=== PATIENT | female | born 1965 | race Caucasian/White ===

== ENCOUNTER → 2017-06-20 07:17 | Outpatient (CLI) | payer MEDICAID, SELFPAY ==
[2017-06-20 10:18] LABS: Absolute Lymphocyte Count 0.88 X10^3/ul (0.83-4.51); Basophil# 0.02 X10^3/uL; Basophil% 0.6 % (0-1); Eosinophil# 0.11 X10^3/uL; Eosinophils% 3.2 % (0-5); Hematocrit 41.4 % (37-47); Hemoglobin 13.6 g/dl (12.0-15.0); Lymphocyte # 0.88 X10^3/ul (4.0); Lymphocyte % 25.9 % (19-41); Mean Corp Hgb Conc 32.9 g/gl (32-36); Mean Corpuscular Hgb 32.2 pg (27.0-32.0); Mean Corpuscular Volume 97.9 fL (81-99); Mean Platelet Vol. 11.5 fl (6.2-12.0); Monocyte# 0.44 X10^3/uL; Monocyte% 12.9 % (0-10); Neutrophil # 1.95 X10^3/uL (2.7-7.7); Neutrophil % 57.4 % (47-70); Platelet Count 176 K/mm3 (150-450); RBC Distribution Width SD 46.1 fl (35.1-43.9); Red Blood Count 4.23 M/mm3 (4.2-5.4); White Blood Count 3.4 K/mm3 (4.4-11.0)
[2017-06-20 10:22] LABS: POSITIVE COUNT NO; POSITIVE DIFFERENTIAL NO; POSITIVE MORPHOLOGY NO
[2017-06-20 10:37] LABS: Progesterone Level 1.89 ng/mL (See Comment); Vitamin B12 806 pg/mL (211-911); Vitamin D,25 Hydroxy 75.2 ng/mL (29.95-100.01)
[2017-06-20 10:44] LABS: ALB/GLOB Ratio 1.3 RATIO (0.9-2.4); AST(SGOT) 19 U/L (15-37); Alanine Aminotransfer ALT/SGPT 30 U/L (13-56); Albumin, Serum 4.2 g/dL (3.2-5.0); Alkaline Phosphatase 85 U/L (45-117); Anion Gap 7 (5-15); BUN 14 mg/dL (7-18); BUN/Creat Ratio 19.2 RATIO (10-20); Calcium,Total 9.2 mg/dL (8.5-10.1); Chloride 102 mmol/L (98-107); Cholesterol 160 mg/dL (200); Creatinine, Serum 0.73 mg/dL (0.55-1.02); EST Glomerular Filtration Rate 89 mL/min (>60); Est Glom Filt Rate - Afr Amer 108 mL/min (>60); Free T3 2.6 pg/mL (2.18-3.98); Globulin 3.2 g/dL (2.2-4.2); Glucose 77 mg/dL (74-106); High Density Lipoprotein 68 mg/dL; Potassium 3.6 mmol/L (3.5-5.1); Protein, Total 7.4 g/dL (6.4-8.2); Sodium Level 138 mmol/L (136-145); T4 Free Direct 0.86 ng/dL (0.76-1.46); Thyroid Stim Hormone (TSH) 2.19 uIU/mL (0.358-3.74); Triglycerides 37 mg/dL; Very Low Density Lipoprotein 7 mg/dL (5-40)
[2017-06-27 11:06] LABS: T3 Reverse 18.4 ng/dL (9.2-24.1)
== END ==
PROVIDERS: Family Provider Family Medicine; PCP Family Medicine
DX: E55.9 Vitamin D deficiency, unspecified (principal); N95.9 Unspecified menopausal and perimenopausal disorder
CPT/HCPCS: 36415; 80053; 80061; 82306; 82607; 82670; 83001; 84144; 84439; 84443; 84481; 84482; 85025; 86141

== ENCOUNTER → 2018-01-20 07:06 | Outpatient (CLI) | payer MEDICAID, SELFPAY ==
[2018-01-20 10:30] LABS: Hematocrit 41.3 % (37-47); Hemoglobin 13.6 g/dl (12.0-15.0); Mean Corp Hgb Conc 32.9 g/gl (32-36); Mean Corpuscular Hgb 32.3 pg (27.0-32.0); Mean Corpuscular Volume 98.1 fL (81-99); Mean Platelet Vol. 11.6 fl (6.2-12.0); Platelet Count 202 K/mm3 (150-450); RBC Distribution Width CV 12.8 % (11.6-14.6); RBC Distribution Width SD 45.3 fl (35.1-43.9); Red Blood Count 4.21 M/mm3 (4.2-5.4); White Blood Count 3.8 K/mm3 (4.4-11.0)
[2018-01-20 10:34] LABS: Scan Indicated on CBC? Y/N NO
[2018-01-20 10:55] LABS: Progesterone Level 1.23 ng/mL (See Comment); Vitamin B12 616 pg/mL (211-911)
[2018-01-20 11:04] LABS: ALB/GLOB Ratio 1.3 RATIO (0.9-2.4); AST(SGOT) 18 U/L (15-37); Alanine Aminotransfer ALT/SGPT 32 U/L (13-56); Albumin, Serum 4.2 g/dL (3.2-5.0); Alkaline Phosphatase 79 U/L (45-117); Anion Gap 6 (5-15); BUN 14 mg/dL (7-18); BUN/Creat Ratio 20.1 RATIO (10-20); CRP, High Sensitivity Cardiac 0.31 mg/L; Calcium,Total 9.2 mg/dL (8.5-10.1); Chloride 106 mmol/L (98-107); Cholesterol 159 mg/dL (200); EST Glomerular Filtration Rate 94 mL/min (>60); Est Glom Filt Rate - Afr Amer 113 mL/min (>60); Estradiol 16.1 pg/mL; Follicle Stimulating Hormone 53.2 mIU/mL; Free T3 2.8 pg/mL (2.18-3.98); Globulin 3.2 g/dL (2.2-4.2); Glucose 80 mg/dL (74-106); High Density Lipoprotein 66 mg/dL; Potassium 3.3 mmol/L (3.5-5.1); Protein, Total 7.4 g/dL (6.4-8.2); Sodium Level 140 mmol/L (136-145); T4 Free Direct 0.82 ng/dL (0.76-1.46); Thyroid Stim Hormone (TSH) 3.06 uIU/mL (0.358-3.74); Triglycerides 36 mg/dL; Very Low Density Lipoprotein 7 mg/dL (5-40)
[2018-01-24 10:39] LABS: T3 Reverse 13.8 ng/dL (9.2-24.1)
== END ==
PROVIDERS: Family Provider Family Medicine; PCP Family Medicine
DX: E55.9 Vitamin D deficiency, unspecified (principal); N95.9 Unspecified menopausal and perimenopausal disorder
CPT/HCPCS: 36415; 80053; 80061; 82306; 82607; 82670; 83001; 84144; 84439; 84443; 84481; 84482; 85027; 86141

== ENCOUNTER → 2018-08-22 | Outpatient (CLI) | payer MEDICAID, SELFPAY ==
[2018-07-28 13:09] LABS: HPV Reflexed? NOT INDICATED
--- NOTE | 2018-08-22 13:05 | BI_ITS ---
MAMMOGRAPHY - BILATERAL SCREENING REASON FOR EXAM: Female, 53 years old. Routine annual screening examination. PERTINENT HISTORY: Non-contributory. TECHNIQUE: Digital bilateral breast jus (3D mammographic acquisition) in the CC and MLO projections. 2-D mediolateral oblique (MLO) and craniocaudad (CC) views of both breasts were obtained. CAD: Full Field Digital Mammography with Computer Added Detection was performed. COMPARISON: Comparison is made with prior study dated December 28, 2016 and December 16, 2015. FINDINGS: Breast Composition: The breasts are extremely dense, which lowers the sensitivity of mammography. There are no dominant masses or suspicious calcifications. No other significant abnormalities are identified. There has been no significant change since the prior study. BI/SCREENING MAMM (CAD), BILAT IMPRESSION: Stable bilateral screening mammogram. Yearly follow-up mammogram recommended. (A) ASSESSMENT CATEGORY: BIRADS Category 1: Negative. A letter regarding these results will be sent to the patient by the facility within 30 days. Approximately 10% of breast cancers are not detected by mammography. A normal mammogram should not delay biopsy of a clinically suspicious abnormality. [id number] Electronically Signed: Kevin Fleming, at 8:25 EDT , Service support ,
== END | disposition home or self-care (01) ==
LOC: OPBI 13:03
PROVIDERS: Family Provider Family Medicine; PCP Family Medicine; Referring Provider Nurse Practitioner Adult Health; Visit Provider Nurse Practitioner Adult Health
DX: Z00.00 Encounter for general adult medical examination without abnormal findings (principal); Z12.31 Encounter for screening mammogram for malignant neoplasm of breast; Z01.419 Encounter for gynecological examination (general) (routine) without abnormal findings
CPT/HCPCS: 77063; 77067; 88175; G0145

== ENCOUNTER → 2018-09-05 | Outpatient (CLI) | payer MEDICAID, SELFPAY ==
[2018-09-05 14:21] LABS: Absolute Lymphocyte Count 1.02 X10^3/ul (0.83-4.51); Absolute Neutrophil Count 3.9 X10^3/uL (2.0-7.7); Basophil# 0.02 X10^3/uL; Basophil% 0.4 % (0-1); Eosinophil# 0.05 X10^3/uL; Eosinophils% 0.9 % (0-5); Hematocrit 40.6 % (37-47); Hemoglobin 13.4 g/dl (12.0-15.0); Lymphocyte # 1.02 X10^3/ul (4.0); Lymphocyte % 18.2 % (19-41); Mean Corpuscular Volume 96.9 fL (81-99); Mean Platelet Vol. 11.7 fl (6.2-12.0); Monocyte# 0.56 X10^3/uL; Neutrophil # 3.94 X10^3/uL (2.7-7.7); Neutrophil % 70.5 % (47-70); Platelet Count 185 K/mm3 (150-450); RBC Distribution Width CV 13.2 % (11.6-14.6); RBC Distribution Width SD 45.8 fl (35.1-43.9); Red Blood Count 4.19 M/mm3 (4.2-5.4); White Blood Count 5.6 K/mm3 (4.4-11.0)
[2018-09-05 14:22] LABS: POSITIVE COUNT NO; POSITIVE DIFFERENTIAL NO; POSITIVE MORPHOLOGY NO
[2018-09-05 14:40] LABS: Anion Gap 9 (5-15); BUN 20 mg/dL (7-18); BUN/Creat Ratio 24.3 RATIO (10-20); Calcium,Total 9.9 mg/dL (8.5-10.1); Chloride 105 mmol/L (98-107); Creatinine, Serum 0.82 mg/dL (0.55-1.02); EST Glomerular Filtration Rate 77 mL/min (>60); Est Glom Filt Rate - Afr Amer 93 mL/min (>60); Free T3 2.3 pg/mL (2.18-3.98); Glucose 104 mg/dL (74-106); Potassium 4.1 mmol/L (3.5-5.1); Sodium Level 144 mmol/L (136-145); T4 Total, Thyroxin 6.7 ug/dL (4.8-13.9); Thyroid Stim Hormone (TSH) 1.78 uIU/mL (0.358-3.74)
== END | disposition home or self-care (01) ==
LOC: MTLAB 12:33
PROVIDERS: Family Provider Family Medicine; PCP Family Medicine; Referring Provider Family Medicine; Visit Provider Family Medicine
DX: E03.9 Hypothyroidism, unspecified (principal); R63.6 Underweight
CPT/HCPCS: 36415; 80048; 84436; 84443; 84481; 85025

== ENCOUNTER → 2018-09-29 | Outpatient (CLI) | payer MEDICAID, SELFPAY ==
[2018-09-29 10:23] LABS: Hematocrit 40.1 % (37-47); Mean Corp Hgb Conc 32.4 g/gl (32-36); Mean Corpuscular Hgb 31.6 pg (27.0-32.0); Mean Corpuscular Volume 97.3 fL (81-99); Mean Platelet Vol. 11.6 fl (6.2-12.0); Platelet Count 185 K/mm3 (150-450); RBC Distribution Width SD 45.6 fl (35.1-43.9); Red Blood Count 4.12 M/mm3 (4.2-5.4); White Blood Count 3.4 K/mm3 (4.4-11.0)
[2018-09-29 10:41] LABS: Hemoglobin A1c 5.7 % (4.2-6.3)
[2018-09-29 10:51] LABS: Progesterone Level 1.47 ng/mL (See Comment); Vitamin D,25 Hydroxy 58.7 ng/mL (29.95-100.01)
[2018-09-29 11:28] LABS: Anion Gap 7 (5-15); BUN 14 mg/dL (7-18); BUN/Creat Ratio 18.5 RATIO (10-20); CRP, High Sensitivity Cardiac 0.26 mg/L; Calcium,Total 9.6 mg/dL (8.5-10.1); Chloride 106 mmol/L (98-107); Cholesterol 165 mg/dL (200); Creatinine, Serum 0.76 mg/dL (0.55-1.02); EST Glomerular Filtration Rate 85 mL/min (>60); Est Glom Filt Rate - Afr Amer 103 mL/min (>60); Estradiol 17.1 pg/mL; Ferritin 28 ng/mL (8-252); Free T3 2.2 pg/mL (2.18-3.98); Glucose 77 mg/dL (74-106); High Density Lipoprotein 71 mg/dL; Potassium 3.6 mmol/L (3.5-5.1); Sodium Level 142 mmol/L (136-145); Thyroid Stim Hormone (TSH) 3.26 uIU/mL (0.358-3.74); Triglycerides 37 mg/dL; Very Low Density Lipoprotein 7 mg/dL (5-40)
[2018-09-29 14:07] LABS: Eosinophil 4 % (0-5); Lymphocyte 23 % (19-41); Monocyte 10 % (0-10); Neutrophil-Band 1 % (0-5); Neutrophil-Segmented 62 % (47-70); Platelet Estimate ADEQUATE (ADEQ); Total Cells Counted 100 (MANUAL DIFF)
[2018-09-29 14:13] LABS: Absolute Lymphocyte Count 0.78 X10^3/ul (0.83-4.51); Absolute Neutrophil Count 2.1 X10^3/uL (2.0-7.7); Differential Indicated MANUAL DIFF; Lymphocyte # 0.78 X10^3/ul (4.0); Neutrophil # 2.14 X10^3/uL (2.7-7.7); POSITIVE COUNT NO; POSITIVE DIFFERENTIAL NO; POSITIVE MORPHOLOGY NO
[2018-10-03 06:06] LABS: DHEA Sulfate 126.8 ug/dL (41.2-243.7)
[2018-10-04 17:30] LABS: T3 Reverse 12.8 ng/dL (9.2-24.1)
== END | disposition home or self-care (01) ==
LOC: MTLAB 07:05
PROVIDERS: Family Provider Family Medicine; PCP Family Medicine
DX: E03.9 Hypothyroidism, unspecified (principal); F95.9 Tic disorder, unspecified; F41.9 Anxiety disorder, unspecified; F42.9 Obsessive-compulsive disorder, unspecified; K21.0 Gastro-esophageal reflux disease with esophagitis
CPT/HCPCS: 36415; 80048; 80061; 82306; 82330; 82533; 82627; 82670; 82728; 83036; 84144; 84439; 84443; 84481; 84482; 85025; 85027; 86141; 82626

== ENCOUNTER → 2018-11-28 | Outpatient (CLI) | payer MEDICAID, SELFPAY ==
--- NOTE | 2018-11-28 15:25 | RAD_ITS ---
HISTORY: PAIN AFTER A SUDDEN MOVEMENT ADDITIONAL HISTORY: None provided. COMPARISON: None TECHNIQUE: Left shoulder 4 views Number of images including paperwork: 4 FINDINGS: BONES: No acute fracture. JOINTS: No subluxation. SOFT TISSUES: No distinct foreign body. RAD/Shoulder min 2 Views IMPRESSION: No acute osseous abnormality. at 2252 Reported and signed by: Radha Dillard MD Electronically Signed: Radha Dillard MD at 22:51 EDT Tel , Service support ,
== END | disposition home or self-care (01) ==
LOC: MTRAD 15:23
PROVIDERS: Family Provider Family Medicine; PCP Family Medicine; Referring Provider Family Medicine; Visit Provider Family Medicine
DX: M25.512 Pain in left shoulder (principal)
CPT/HCPCS: 73030

== ENCOUNTER → 2018-12-04 12:27 | Outpatient (CLI) | payer MEDICAID, SELFPAY ==
--- NOTE | 2018-12-04 12:33 | MRI_ITS ---
STUDY: MRI LEFT SHOULDER REASON FOR EXAM: Left shoulder pain and decreased range of motion after throwing an object 3-4 months ago. TECHNIQUE: Standardized fat and water weighted pulse sequences were obtained in all 3 orthogonal planes. COMPARISON: Radiographs 11/28/2018. FINDINGS: Normal supraspinatus tendon. Normal infraspinatus tendon. Normal subscapularis tendon. Normal teres minor tendon. Normal supraspinatus muscle. Normal infraspinatus muscle. Normal subscapularis muscle. Normal teres minor muscle. There is a minimal volume of fluid in the glenohumeral joint. Normal humeral head and visualized proximal humerus. Normal biceps labral complex. Normal intracapsular long biceps tendon. Normal labrum. Normal capsulo- ligamentous complex. Normal acromioclavicular articulation. There is a Type II morphology (curved), with a neutral orientation. There is no subacromial-subdeltoid bursal fluid. Normal visualized coracohumeral and coracoacromial ligaments. Normal deltoid muscle. Normal trapezius muscle. MRI/Upper Ext Joint Only(Routine) IMPRESSION: Normal MRI of the left shoulder without demonstrated rotator cuff tear. Electronically Signed: Jorge Luis Velazquez MD at 13:42 EDT Tel , Service support ,
== END ==
PROVIDERS: Family Provider Family Medicine; PCP Family Medicine; Referring Provider Family Medicine; Visit Provider Family Medicine
DX: S46.912S Strain of unspecified muscle, fascia and tendon at shoulder and upper arm level, left arm, sequela (principal)
CPT/HCPCS: 73221

== ENCOUNTER → 2019-01-23 | Outpatient (CLI) | payer MEDICAID, SELFPAY ==
[2019-01-23 14:07] LABS: Vitamin D,25 Hydroxy 75.4 ng/mL (29.95-100.01)
[2019-01-23 14:12] LABS: Iron 112 ug/dL (50-170); Iron Binding Capacity,Total 374 ug/dL (250-450); PERCENT IRON SATURATION 29.9 % (15.0-55.0)
== END | disposition home or self-care (01) ==
LOC: MTLAB 12:37
PROVIDERS: Family Provider Family Medicine; PCP Family Medicine
DX: D64.9 Anemia, unspecified (principal); E55.9 Vitamin D deficiency, unspecified; N95.9 Unspecified menopausal and perimenopausal disorder; E03.9 Hypothyroidism, unspecified; F95.9 Tic disorder, unspecified
CPT/HCPCS: 36415; 82306; 83540; 83550

== ENCOUNTER → 2019-03-03 08:35 | Outpatient (CLI) | payer MEDICAID, SELFPAY ==
[2019-03-03 10:10] LABS: Absolute Lymphocyte Count 0.95 X10^3/uL (0.83-4.51); Absolute Neutrophil Count 3.4 X10^3/uL (2.0-7.7); Basophil# 0.02 X10^3/uL; Basophil% 0.4 % (0-1); Eosinophil# 0.04 X10^3/uL; Eosinophils% 0.8 % (0-5); Hematocrit 40.5 % (37-47); Hemoglobin 13.3 g/dL (12.0-15.0); Lymphocyte # 0.95 X10^3/ul (4.0); Lymphocyte % 19.3 % (19-41); Mean Corp Hgb Conc 32.8 g/dL (32-36); Mean Corpuscular Hgb 32.4 pg (27.0-32.0); Mean Corpuscular Volume 98.8 fL (81-99); Mean Platelet Vol. 11.2 fl (6.2-12.0); Monocyte# 0.55 X10^3/uL; Monocyte% 11.2 % (0-10); NRBC Flagged by Analyzer 0 % (0-5); Neutrophil # 3.36 X10^3/uL (2.7-7.7); Neutrophil % 68.1 % (47-70); Platelet Count 201 K/mm3 (150-450); RBC Distribution Width CV 12.4 % (11.6-14.6); RBC Distribution Width SD 45.1 fl (35.1-43.9); White Blood Count 4.9 K/mm3 (4.4-11.0)
[2019-03-03 11:38] LABS: ALB/GLOB Ratio 1.4 RATIO (0.9-2.4); AST(SGOT) 16 U/L (15-37); Alanine Aminotransfer ALT/SGPT 26 U/L (13-56); Albumin, Serum 4.2 g/dL (3.2-5.0); Alkaline Phosphatase 64 U/L (45-117); Anion Gap 4 (5-15); BUN 12 mg/dL (7-18); Calcium,Total 9.6 mg/dL (8.5-10.1); Chloride 101 mmol/L (98-107); Creatinine, Serum 0.75 mg/dL (0.55-1.02); EST Glomerular Filtration Rate 85 mL/min (>60); Est Glom Filt Rate - Afr Amer 103 mL/min (>60); Follicle Stimulating Hormone 54.3 mIU/mL; Globulin 2.9 g/dL (2.2-4.2); Glucose 73 mg/dL (74-106); Potassium 3.3 mmol/L (3.5-5.1); Protein, Total 7.1 g/dL (6.4-8.2); Sodium Level 137 mmol/L (136-145); T4 Free Direct 1.04 ng/dL (0.76-1.46); Thyroid Stim Hormone (TSH) 2.53 uIU/mL (0.358-3.74)
== END ==
PROVIDERS: Family Provider Family Medicine; PCP Family Medicine; Referring Provider Family Medicine; Visit Provider Family Medicine
DX: E03.9 Hypothyroidism, unspecified (principal); R23.2 Flushing
CPT/HCPCS: 36415; 80053; 83001; 83002; 84439; 84443; 85025

== ENCOUNTER → 2019-04-13 15:22 | Outpatient (CLI) | payer MEDICAID, SELFPAY ==
[2019-04-13 17:36] LABS: Absolute Lymphocyte Count 0.66 X10^3/uL (0.83-4.51); Absolute Neutrophil Count 3.1 X10^3/uL (2.0-7.7); Basophil# 0.02 X10^3/uL; Basophil% 0.5 % (0-1); Eosinophil# 0.01 X10^3/uL; Eosinophils% 0.2 % (0-5); Hematocrit 41.4 % (37-47); Hemoglobin 13.8 g/dL (12.0-15.0); Lymphocyte # 0.66 X10^3/ul (4.0); Lymphocyte % 15.5 % (19-41); Mean Corp Hgb Conc 33.3 g/dL (32-36); Mean Corpuscular Hgb 31.3 pg (27.0-32.0); Mean Corpuscular Volume 93.9 fL (81-99); Mean Platelet Vol. 12.7 fl (6.2-12.0); Monocyte# 0.47 X10^3/uL; NRBC Flagged by Analyzer 0 % (0-5); Neutrophil % 72.8 % (47-70); Platelet Count 161 K/mm3 (150-450); RBC Distribution Width CV 12.8 % (11.6-14.6); RBC Distribution Width SD 44.1 fl (35.1-43.9); Red Blood Count 4.41 M/mm3 (4.2-5.4); White Blood Count 4.3 K/mm3 (4.4-11.0)
[2019-04-13 18:03] LABS: ALB/GLOB Ratio 1.7 RATIO (0.9-2.4); AST(SGOT) 18 U/L (15-37); Alanine Aminotransfer ALT/SGPT 31 U/L (13-56); Albumin, Serum 4.8 g/dL (3.2-5.0); Alkaline Phosphatase 60 U/L (45-117); Anion Gap 7 (5-15); BUN 14 mg/dL (7-18); BUN/Creat Ratio 16.4 RATIO (10-20); Calcium,Total 10.5 mg/dL (8.5-10.1); Chloride 90 mmol/L (98-107); Creatinine, Serum 0.86 mg/dL (0.55-1.02); EST Glomerular Filtration Rate 74 mL/min (>60); Est Glom Filt Rate - Afr Amer 89 mL/min (>60); Globulin 2.9 g/dL (2.2-4.2); Glucose 82 mg/dL (74-106); Potassium 3.7 mmol/L (3.5-5.1); Protein, Total 7.7 g/dL (6.4-8.2); Sodium Level 128 mmol/L (136-145); Thyroid Stim Hormone (TSH) 2.45 uIU/mL (0.358-3.74)
[2019-04-13 18:08] LABS: Vitamin B12 > 2000 pg/mL (211-911)
[2019-04-17 16:45] LABS: Vitamin D 1,25-Dihydroxy 76.1 pg/mL (19.9-79.3)
== END ==
PROVIDERS: PCP Family Medicine; Referring Provider Family Medicine; Visit Provider Family Medicine
DX: R63.6 Underweight (principal)
CPT/HCPCS: 36415; 80053; 82607; 82652; 82746; 84443; 85025

== ENCOUNTER → 2019-05-01 12:26 | Outpatient (CLI) | payer MEDICAID, SELFPAY ==
[2019-05-01 12:35] LABS: Bacteria 0 SEEN /hpf (None Seen); Mucous, Urine 0 SEEN /hpf (<or=2+); Red Blood Cells-Urine 0 SEEN /hpf (0-5); White Blood Cells 0 SEEN /hpf (0-5)
[2019-05-01 14:06] LABS: Urine Sodium < 5 mmol/L (Not Establ.)
[2019-05-01 14:19] LABS: Vitamin D,25 Hydroxy 109.9 ng/mL (29.95-100.01)
[2019-05-01 14:22] LABS: Color, Urine Yellow (Yellow); Glucose, Dipstick Normal (Normal); Ketone-Dipstick 5 mg/dl (Negative); Leukocyte Esterase-Dipstick Negative /ul (Negative); Nitrite-Dipstick Negative (Negative); Occult Blood-Urine Negative /ul (Negative); Protein-Dipstick Negative (Negative); Specific Gravity, Urine 1.025 (1.002-1.030); Urine Bilirubin Dipstick Negative (Negative); Urine Clarity Clear (Clear); Urine Urobilinogen Normal (Normal)
[2019-05-01 14:23] LABS: Anion Gap 6 (5-15); BUN 17 mg/dL (7-18); BUN/Creat Ratio 19.3 RATIO (10-20); Calcium,Total 11.1 mg/dL (8.5-10.1); Chloride 93 mmol/L (98-107); Creatinine, Serum 0.88 mg/dL (0.55-1.02); EST Glomerular Filtration Rate 71 mL/min (>60); Est Glom Filt Rate - Afr Amer 86 mL/min (>60); Glucose 106 mg/dL (74-106); Potassium 3.7 mmol/L (3.5-5.1); Sodium Level 131 mmol/L (136-145)
[2019-05-01 14:33] LABS: Squamous Epithelial Cells - UA 0-5 SEEN /hpf (5-10)
[2019-05-01 14:44] LABS: PTHIN 70.7 pg/mL (18.4-80.1)
[2019-05-01 20:14] LABS: Osmolality, Serum 280 mOsm/KG (275-295); Osmolality, Urine 613 mOsm/KG
[2019-05-02 16:08] LABS: PROEL- A/G Ratio 1.9 (0.7-1.7); PROEL- Albumin 4.4 g/dL (2.9-4.4); PROEL- Alpha-1 Globulin 0.3 g/dL (0.0-0.4); PROEL- Alpha-2 Globulin 0.5 g/dL (0.4-1.0); PROEL- Beta Globulin 0.8 g/dL (0.7-1.3); PROEL- Gamma Globulin 0.7 g/dL (0.4-1.8); PROEL- Globulin, Total 2.3 g/dL (2.2-3.9); PROEL- TOTAL PROTEIN 6.7 g/dL (6.0-8.5)
== END ==
PROVIDERS: PCP Family Medicine; Referring Provider Family Medicine; Visit Provider Family Medicine
DX: E87.1 Hypo-osmolality and hyponatremia (principal); E83.52 Hypercalcemia
CPT/HCPCS: 36415; 80048; 81001; 82306; 83930; 83935; 83970; 84165; 84300

== ENCOUNTER → 2019-06-14 16:11 | Outpatient (CLI) | payer MEDICAID, SELFPAY ==
[2019-06-14 17:51] LABS: Anion Gap 4 (5-15); BUN 17 mg/dL (7-18); Calcium,Total 9.8 mg/dL (8.5-10.1); Chloride 99 mmol/L (98-107); Creatinine, Serum 0.63 mg/dL (0.55-1.02); EST Glomerular Filtration Rate 105 mL/min (>60); Est Glom Filt Rate - Afr Amer 127 mL/min (>60); Glucose 88 mg/dL (74-106); Potassium 3.9 mmol/L (3.5-5.1); Sodium Level 136 mmol/L (136-145)
[2019-06-14 18:21] LABS: Vitamin D,25 Hydroxy 79.7 ng/mL
== END ==
PROVIDERS: PCP Family Medicine; Referring Provider Family Medicine; Visit Provider Family Medicine
DX: R63.6 Underweight (principal)
CPT/HCPCS: 36415; 80048; 82306

== ENCOUNTER → 2019-08-27 11:52 | Outpatient (CLI) | payer MEDICAID, SELFPAY ==
--- NOTE | 2019-08-27 11:55 | BI_ITS ---
MAMMOGRAPHY - BILATERAL SCREENING REASON FOR EXAM: Female, 54 years old. Routine annual screening examination. PERTINENT HISTORY: Non-contributory. TECHNIQUE: Digital bilateral breast lolita (3D mammographic acquisition) in the CC and MLO projections. 2-D mediolateral oblique (MLO) and craniocaudad (CC) views of both breasts were obtained. CAD: Full Field Digital Mammography with Computer Added Detection was performed. COMPARISON: Comparison is made with prior examination of August 22, 2018 and December 28, 2016. FINDINGS: Breast Composition: The breasts are extremely dense, which lowers the sensitivity of mammography. There are no dominant masses or suspicious calcifications. No other significant abnormalities are identified. There has been no significant change since the prior study. BI/SCREEN MAMM (CAD) W/LOLITA BILAT IMPRESSION: Stable bilateral screening mammogram. Yearly follow-up mammogram recommended. (A) ASSESSMENT CATEGORY: BIRADS Category 1: Negative. A letter regarding these results will be sent to the patient by the facility within 30 days. Approximately 10% of breast cancers are not detected by mammography. A normal mammogram should not delay biopsy of a clinically suspicious abnormality. [id number] Electronically Signed: Kevin Fleming, at 13:04 EDT , Service support ,
== END ==
PROVIDERS: PCP Family Medicine; Referring Provider Family Medicine; Visit Provider Family Medicine
DX: Z12.31 Encounter for screening mammogram for malignant neoplasm of breast (principal)
CPT/HCPCS: 77063; 77067

== ENCOUNTER → 2019-11-23 07:33 | Outpatient (CLI) | payer MEDICAID, SELFPAY ==
[2019-11-23 10:04] LABS: Anion Gap 4 (5-15); BUN 13 mg/dL (7-18); BUN/Creat Ratio 18.2 RATIO (10-20); Calcium,Total 9.9 mg/dL (8.5-10.1); Chloride 103 mmol/L (98-107); Cholesterol 177 mg/dL (200); Creatinine, Serum 0.71 mg/dL (0.55-1.02); EST Glomerular Filtration Rate 90 mL/min (>60); Est Glom Filt Rate - Afr Amer 109 mL/min (>60); Glucose 79 mg/dL (74-106); High Density Lipoprotein 74 mg/dL; Potassium 3.6 mmol/L (3.5-5.1); Sodium Level 138 mmol/L (136-145); Triglycerides 30 mg/dL; Very Low Density Lipoprotein 6 mg/dL (5-40)
[2019-11-23 11:56] LABS: Vitamin D,25 Hydroxy 61.2 ng/mL
== END ==
PROVIDERS: PCP Family Medicine; Referring Provider Family Medicine; Visit Provider Family Medicine
DX: E67.3 Hypervitaminosis D (principal); E83.52 Hypercalcemia; Z13.220 Encounter for screening for lipoid disorders
CPT/HCPCS: 36415; 80048; 80061; 82306

== ENCOUNTER → 2020-06-03 10:49 | Outpatient (CLI) | payer MEDICAID, SELFPAY ==
[2020-06-03 12:17] LABS: Absolute Lymphocyte Count 0.71 X10^3/uL (0.83-4.51); Absolute Neutrophil Count 1.9 X10^3/uL (2.0-7.7); Basophil# 0.03 X10^3/uL; Eosinophil# 0.05 X10^3/uL; Eosinophils% 1.6 % (0-5); Hematocrit 39.9 % (37-47); Hemoglobin 13.2 g/dL (12.0-15.0); Lymphocyte # 0.71 X10^3/ul (4.0); Lymphocyte % 23.4 % (19-41); Mean Corp Hgb Conc 33.1 g/dL (32-36); Mean Corpuscular Hgb 31.8 pg (27.0-32.0); Mean Corpuscular Volume 96.1 fL (81-99); Mean Platelet Vol. 11.3 fl (6.2-12.0); Monocyte# 0.38 X10^3/uL; Monocyte% 12.5 % (0-10); NRBC Flagged by Analyzer 0 % (0-5); Neutrophil # 1.86 X10^3/uL (2.7-7.7); Neutrophil % 61.2 % (47-70); Platelet Count 215 K/mm3 (150-450); RBC Distribution Width SD 49.7 fl (35.1-43.9); Red Blood Count 4.15 M/mm3 (4.2-5.4)
[2020-06-03 12:43] LABS: Vitamin B12 1065 pg/mL (211-911)
[2020-06-03 12:54] LABS: Anion Gap 3 (5-15); BUN 12 mg/dL (7-18); BUN/Creat Ratio 18.9 RATIO (10-20); Calcium,Total 9.7 mg/dL (8.5-10.1); Chloride 101 mmol/L (98-107); Creatinine, Serum 0.63 mg/dL (0.55-1.02); EST Glomerular Filtration Rate 103 mL/min (>60); Est Glom Filt Rate - Afr Amer 125 mL/min (>60); Glucose 53 mg/dL (74-106); Magnesium 1.9 mg/dL (1.6-2.6); Potassium 3.7 mmol/L (3.5-5.1); Sodium Level 138 mmol/L (136-145); Thyroid Stim Hormone (TSH) 3.05 uIU/mL (0.358-3.74)
== END ==
PROVIDERS: PCP Family Medicine; Referring Provider Family Medicine; Visit Provider Family Medicine
DX: R53.83 Other fatigue (principal); R63.6 Underweight
CPT/HCPCS: 36415; 80048; 82607; 83735; 84134; 84443; 85025

== ENCOUNTER → 2020-09-05 14:48 | Outpatient (CLI) | payer MEDICAID, SELFPAY ==
--- NOTE | 2020-09-05 15:37 | BI_ITS ---
MAMMOGRAPHY - BILATERAL SCREENING REASON FOR EXAM: Female, 55 years old. Routine annual screening examination. PERTINENT HISTORY: Non-contributory. TECHNIQUE: Digital bilateral breast lolita (3D mammographic acquisition) in the CC and MLO projections. 2-D mediolateral oblique (MLO) and craniocaudad (CC) views of both breasts were obtained. CAD: Full Field Digital Mammography with Computer Added Detection was performed. COMPARISON: Comparison is made with prior examination dated 08/27/2019 and 08/22/2018. FINDINGS: Breast Composition: The breasts are extremely dense, which lowers the sensitivity of mammography. There are no dominant masses or suspicious calcifications. No other significant abnormalities are identified. There has been no significant change since the prior study. BI/SCRN MAMM (CAD)W/LOLITA BILAT IMPRESSION: Stable bilateral screening mammogram. Yearly follow-up mammogram recommended. (A) ASSESSMENT CATEGORY: BIRADS Category 1: Negative. A letter regarding these results will be sent to the patient by the facility within 30 days. Approximately 10% of breast cancers are not detected by mammography. A normal mammogram should not delay biopsy of a clinically suspicious abnormality. [id number] Electronically Signed: Kevin Fleming MD at 8:10 EDT , Service support ,
== END ==
PROVIDERS: PCP Family Medicine; Referring Provider Family Medicine; Visit Provider Family Medicine
DX: Z12.31 Encounter for screening mammogram for malignant neoplasm of breast (principal)
CPT/HCPCS: 77063; 77067

== ENCOUNTER → 2020-09-08 13:51 | Outpatient (CLI) | payer MEDICAID, SELFPAY ==
[2020-09-11 14:54] LABS: HPV Reflexed? NOT INDICATED
== END ==
PROVIDERS: PCP Family Medicine; Visit Provider Registered Nurse
DX: Z01.419 Encounter for gynecological examination (general) (routine) without abnormal findings (principal)
CPT/HCPCS: 88175; G0145

== ENCOUNTER → 2020-11-18 | Outpatient (CLI) | payer MEDICAID, SELFPAY ==
[2020-11-18 11:19] LABS: Microalbumin,Random Urine < 5.0 mg/L (NO RANGE EST.)
== END | disposition home or self-care (01) ==
LOC: LABSPEC 10:06
PROVIDERS: PCP Family Medicine; Referring Provider Family Medicine; Visit Provider Family Medicine
DX: N39.0 Urinary tract infection, site not specified (principal)
CPT/HCPCS: 82043; 87086; 87088

== ENCOUNTER → 2020-12-25 | Outpatient (CLI) | payer MEDICAID, SELFPAY | END | disposition home or self-care (01) | LOC: LABSPEC 15:54 | PROVIDERS: PCP Family Medicine; Referring Provider Family Medicine; Visit Provider Family Medicine | DX: Z20.822 Contact with and (suspected) exposure to COVID-19 (principal) | CPT/HCPCS: 87635; U0005; U0003 ==

== ENCOUNTER → 2021-02-03 10:07 | Outpatient (CLI) | payer MEDICAID, SELFPAY ==
[2021-02-03 12:22] LABS: Absolute Lymphocyte Count 0.68 X10^3/uL (0.83-4.51); Absolute Neutrophil Count 1.8 X10^3/uL (2.0-7.7); Basophil# 0.01 X10^3/uL; Basophil% 0.4 % (0-1); Eosinophil# 0.03 X10^3/uL; Eosinophils% 1.1 % (0-5); Hematocrit 40.7 % (37-47); Hemoglobin 14.1 g/dL (12.0-15.0); Lymphocyte # 0.68 X10^3/ul (0.83-4.51); Lymphocyte % 23.9 % (19-41); Mean Corp Hgb Conc 34.6 g/dL (32-36); Mean Corpuscular Hgb 33.1 pg (27.0-32.0); Mean Corpuscular Volume 95.5 fL (81-99); Mean Platelet Vol. 12.1 fl (6.2-12.0); Monocyte# 0.32 X10^3/uL; Monocyte% 11.2 % (0-10); NRBC Flagged by Analyzer 0 % (0-5); Neutrophil # 1.81 X10^3/uL (2.7-7.7); Neutrophil % 63.4 % (47-70); Platelet Count 212 K/mm3 (150-450); RBC Distribution Width CV 14.6 % (11.6-14.6); RBC Distribution Width SD 51.2 fl (35.1-43.9); Red Blood Count 4.26 M/mm3 (4.2-5.4); White Blood Count 2.9 K/mm3 (4.4-11.0)
[2021-02-03 12:47] LABS: ALB/GLOB Ratio 1.2 RATIO (0.9-2.4); AST(SGOT) 45 U/L (15-37); Alanine Aminotransfer ALT/SGPT 58 U/L (13-56); Albumin, Serum 3.5 g/dL (3.2-5.0); Alkaline Phosphatase 100 U/L (45-117); Anion Gap 4 (5-15); BUN 16 mg/dL (7-18); BUN/Creat Ratio 24.6 RATIO (10-20); Calcium,Total 9.7 mg/dL (8.5-10.1); Chloride 97 mmol/L (98-107); Creatinine, Serum 0.65 mg/dL (0.55-1.02); EST Glomerular Filtration Rate 100 mL/min (>60); Est Glom Filt Rate - Afr Amer 121 mL/min (>60); Free T3 2.4 pg/mL (2.18-3.98); Globulin 2.9 g/dL (2.2-4.2); Glucose 71 mg/dL (74-106); Potassium 3.8 mmol/L (3.5-5.1); Protein, Total 6.4 g/dL (6.4-8.2); Sodium Level 133 mmol/L (136-145); T4 Free Direct 1.07 ng/dL (0.76-1.46); Thyroid Stim Hormone (TSH) 4.39 uIU/mL (0.358-3.74)
== END ==
PROVIDERS: PCP Family Medicine; Referring Provider Family Medicine; Visit Provider Family Medicine
DX: E03.9 Hypothyroidism, unspecified (principal)
CPT/HCPCS: 36415; 80053; 84439; 84443; 84481; 85025

== ENCOUNTER → 2021-03-23 10:55 | Outpatient (CLI) | payer MEDICAID, SELFPAY ==
[2021-03-23 12:52] LABS: Free T3 2.4 pg/mL (2.18-3.98); T4 Free Direct 1.15 ng/dL (0.76-1.46); Thyroid Stim Hormone (TSH) 6.27 uIU/mL (0.358-3.74)
== END ==
PROVIDERS: PCP Family Medicine; Referring Provider Family Medicine; Visit Provider Family Medicine
DX: E03.9 Hypothyroidism, unspecified (principal)
CPT/HCPCS: 36415; 84439; 84443; 84481

== ENCOUNTER 2021-04-01 10:34 | Outpatient (CLI) | payer MEDICAID, SELFPAY ==
[2021-04-01 12:30] LABS: Anion Gap 5 (5-15); BUN 22 mg/dL (7-18); BUN/Creat Ratio 39.5 RATIO (10-20); Calcium,Total 9.4 mg/dL (8.5-10.1); Chloride 96 mmol/L (98-107); Creatinine, Serum 0.56 mg/dL (0.55-1.02); EST Glomerular Filtration Rate 120 mL/min (>60); Est Glom Filt Rate - Afr Amer 145 mL/min (>60); Glucose 76 mg/dL (74-106); Potassium 3.9 mmol/L (3.5-5.1); Sodium Level 134 mmol/L (136-145)
== END 2021-04-01 23:59 | disposition short-term general hospital (02) ==
LOC: MTLAB 10:36
PROVIDERS: PCP Family Medicine; Referring Provider Family Medicine; Visit Provider Family Medicine
DX: E03.9 Hypothyroidism, unspecified (principal)
CPT/HCPCS: 36415; 80048

== ENCOUNTER 2021-04-09 15:42 | Outpatient (CLI) | payer MEDICAID, SELFPAY ==
[2021-04-09 16:18] LABS: Bacteria 0 SEEN /hpf (None Seen); Mucous, Urine 0 SEEN /hpf (<or=2+); Red Blood Cells-Urine 0 SEEN /hpf (0-5); White Blood Cells 0 SEEN /hpf (0-5)
[2021-04-09 17:42] LABS: Color, Urine Yellow (Yellow); Glucose, Dipstick Normal (Normal); Ketone-Dipstick Negative (Negative); Leukocyte Esterase-Dipstick Negative /ul (Negative); Nitrite-Dipstick Negative (Negative); Occult Blood-Urine Negative /ul (Negative); Protein-Dipstick Negative (Negative); Specific Gravity, Urine 1.025 (1.002-1.030); Urine Bilirubin Dipstick Negative (Negative); Urine Clarity Sl. Cloudy (Clear); Urine Urobilinogen Normal (Normal)
[2021-04-09 18:18] LABS: Microalbumin,Random Urine 7.2 mg/L (NO RANGE EST.); Microalbumin:Creatinine Ratio 9.9 mg/g CRE (<30 mg/g CRE)
[2021-04-09 18:45] LABS: Squamous Epithelial Cells - UA 0-5 SEEN /hpf (5-10)
[2021-04-09 19:59] LABS: AST(SGOT) 87 U/L (15-37); Alanine Aminotransfer ALT/SGPT 142 U/L (13-56); Albumin, Serum 2.8 g/dL (3.2-5.0); Alkaline Phosphatase 84 U/L (45-117); Anion Gap 5 (5-15); BUN 22 mg/dL (7-18); BUN/Creat Ratio 39.4 RATIO (10-20); CRP < 2.90 mg/L (0.0-3.0); Calcium,Total 9.2 mg/dL (8.5-10.1); Chloride 92 mmol/L (98-107); Creatinine, Serum 0.56 mg/dL (0.55-1.02); EST Glomerular Filtration Rate 119 mL/min (>60); Est Glom Filt Rate - Afr Amer 144 mL/min (>60); Follicle Stimulating Hormone 50.1 mIU/mL; Free T3 2.1 pg/mL (2.18-3.98); Globulin 2.8 g/dL (2.2-4.2); Glucose 137 mg/dL (74-106); Luteinizing Hormone 25.9 mIU/mL; Potassium 4.2 mmol/L (3.5-5.1); Protein, Total 5.6 g/dL (6.4-8.2); Sodium Level 131 mmol/L (136-145); T4 Free Direct 1.13 ng/dL (0.76-1.46); Thyroid Stim Hormone (TSH) 7.58 uIU/mL (0.358-3.74)
[2021-04-15 12:08] LABS: Testosterone, % Free 2.03 % (0.50-2.80); Testosterone, Free 0.81 ng/dL (0.10-0.85); Testosterone, Total 40 ng/dL (4-50)
== END 2021-04-09 23:59 | disposition short-term general hospital (02) ==
PROVIDERS: PCP Family Medicine; Referring Provider Family Medicine; Visit Provider Registered Nurse
DX: J06.9 Acute upper respiratory infection, unspecified (principal)
CPT/HCPCS: 87635; 80053; 81001; 82043; 82570; 82627; 83001; 83002; 84402; 84403; 84439; 84443; 84481; 86140; 82626; U0003; U0005

== ENCOUNTER 2021-04-23 08:24 | Outpatient (CLI) | payer MEDICAID, SELFPAY ==
--- NOTE | 2021-04-23 08:26 | US_ITS ---
STUDY: ABDOMINAL ULTRASOUND - RIGHT UPPER QUADRANT REASON FOR VISIT: Female, 56 years old ELEVATED LIVER ENZYMES TECHNIQUE: Ultrasound evaluation of the right upper quadrant was performed with real-time and static saenz-scale imaging. TECHNICAL QUALITY: Adequate. COMPARISON: None. FINDINGS: Liver: The liver measures 14.8 cm. There is normal echogenicity of the liver. The bile ducts are within normal limits. There is hepatic color flow. The direction of portal flow is hepatopetal. There is no demonstrated mass lesion. Gallbladder: Normal distended gallbladder. The gallbladder wall measures 2 mm. There is a negative sonographic Velez''s sign. There is pericholecystic fluid. There are no gallstones. Common Bile Duct (C.B.D.): The common bile duct measures 1 mm. Pancreas: Normal size of the head, body and tail of the pancreas. There is normal echogenicity of the pancreas. There is no demonstrated pancreatic mass or cyst. Right Kidney: Normal size of the right kidney. The right kidney measures 10.1 x 4.3 x 4.3 cm. Normal renal cortex. The right cortex measures 1.4 cm. There is no demonstrated renal mass or cyst. There is no right hydronephrosis. US/Liver IMPRESSION: No suspicious solid organ abnormality. [employer]or notes small amount of free fluid around the liver and gallbladder. Electronically Signed: Laurent Mcnulty MD at 14:15 EST ,
== END 2021-04-23 23:59 | disposition short-term general hospital (02) ==
LOC: US 08:24
PROVIDERS: PCP Family Medicine; Referring Provider Family Medicine; Visit Provider Family Medicine
DX: R74.8 Abnormal levels of other serum enzymes (principal)
CPT/HCPCS: 76705

== ENCOUNTER 2021-04-27 12:08 | Outpatient (CLI) | payer MEDICAID, SELFPAY ==
[2021-04-27 15:40] LABS: International Normalized Ratio 0.9; Prothrombin Time (Protime)PT. 11.1 SECONDS (11.7-14.9)
[2021-04-27 16:11] LABS: Free T3 2.3 pg/mL (2.18-3.98); Lipase 314 U/L (73-393); Prealbumin 32.6 mg/dL (20.0-40.0); Rheumatoid Factor < 10.0 IU/mL (<15); T4 Free Direct 1.15 ng/dL (0.76-1.46); Thyroid Stim Hormone (TSH) 6.25 uIU/mL (0.358-3.74)
[2021-04-28 08:47] LABS: Hepatitis C Antibody Non-Reactive (Nonreactive)
[2021-04-29 15:00] LABS: ANTINUCLEAR ANTIBODIES DIRECT Negative (Negative)
[2021-04-30 03:07] LABS: Ceruloplasmin 27.8 mg/dL (19.0-39.0); PROEL- A/G Ratio 1.4 (0.7-1.7); PROEL- Albumin 3.2 g/dL (2.9-4.4); PROEL- Alpha-1 Globulin 0.4 g/dL (0.0-0.4); PROEL- Alpha-2 Globulin 0.7 g/dL (0.4-1.0); PROEL- Gamma Globulin 0.3 g/dL (0.4-1.8); PROEL- Globulin, Total 2.3 g/dL (2.2-3.9); PROEL- TOTAL PROTEIN 5.5 g/dL (6.0-8.5)
[2021-04-30 12:30] LABS: Anti-Smooth Muscle ABS 2 Units (0-19); Anti-Thyroglobulin AB < 1.0 IU/mL (0.0-0.9); Thyroglobulin, Serum Qt. 7.4 ng/mL (1.5-38.5); Thyroid Peroxidase AB < 8 IU/mL (0-34); Zinc, Plasma or Serum 73 ug/dL (44-115)
== END 2021-04-27 23:59 | disposition short-term general hospital (02) ==
PROVIDERS: PCP Family Medicine; Visit Provider Family Medicine
DX: R74.01 Elevation of levels of liver transaminase levels (principal); K90.9 Intestinal malabsorption, unspecified; E88.09 Other disorders of plasma-protein metabolism, not elsewhere classified; E03.9 Hypothyroidism, unspecified; R63.6 Underweight
CPT/HCPCS: 36415; 82390; 83516; 83690; 84134; 84165; 84432; 84439; 84443; 84481; 84630; 85610; 86038; 86376; 86431; 86800; 86803

== ENCOUNTER 2021-05-16 17:55 | Inpatient (IN) | payer MEDICAID, SELFPAY ==
[2021-05-16] VITALS (7 sets, daily range): BP systolic 118–149; BP diastolic 53–87; PULSE 50–66; RESP 9–18; TEMP 35.6–35.8; O2SAT 100; BMI 19.9
--- NOTE | 2021-05-16 18:12 | ED.RN ---
disoriented and couldnt find or remember basic adl things. when waking up at 1230 today which was late for her to be up. she reported feeling lethargic. pt reports typically she has a sharp quick mind and was at baseline when she went to bed. swelling to ble since january 28+ pitting up through thighs. has gastro and endo working her up for multiple sx and issues lately.
--- NOTE | 2021-05-16 18:24 | RAD_ITS ---
EXAM: XR CHEST, 1 VIEW CLINICAL INDICATION: Dyspnea. TECHNIQUE: Frontal view of the chest. This report was created using [employer] report generation technology. COMPARISON: None. FINDINGS: LUNGS AND PLEURAL SPACES: Pulmonary hyperinflation with mild flattening of the hemidiaphragms. No pneumothorax. No effusion. HEART: Unremarkable. Cardiac silhouette not enlarged. MEDIASTINUM: Central airways and mediastinal contour are unremarkable. BONES/JOINTS: Unremarkable. SOFT TISSUES: Prominent nipple shadows. RAD/Chest 1 View (Portable) IMPRESSION: No acute findings in the chest. Electronically Signed: Husam Childs MD at 20:06 EST ,
--- NOTE | 2021-05-16 18:24 | CT_ITS ---
STUDY: CT BRAIN WITHOUT CONTRAST REASON FOR EXAM: Female, 56 years old. confusion RADIATION DOSAGE (If Supplied By Facility): CTDIvol = ( 47.06 ) mGy, DLP = ( 925.62 ) mGycm TECHNIQUE: Transaxial CT imaging of the brain was performed without administration of intravenous contrast material. Individualized dose optimization techniques were used for this CT. COMPARISON: No relevant priors. FINDINGS: Normal soft tissue structures. Normal calvarium. Normal size ventricles and extra-axial spaces for the patient''s age. Normal white matter tracts of the cerebral hemispheres. Normal basal ganglia and thalami. Normal brainstem. Normal cerebellum. There is no intracranial hemorrhage. There are no findings of an acute ischemic infarction. Normal visualized paranasal sinuses. CT/Brain/Head without Contrast IMPRESSION: No acute intracranial hemorrhage or mass effect. Electronically Signed: Doug Arellano MD ([place]) at 19:20 EST ,
--- NOTE | 2021-05-16 18:24 | EKG12_ITS ---
Test Reason : WEAKNESS Blood Pressure : / mmHG Vent. Rate : 047 BPM Atrial Rate : 047 BPM P-R Int : 170 ms QRS Dur : 096 ms QT Int : 500 ms P-R-T Axes : 083 074 065 degrees QTc Int : 442 ms Sinus bradycardia Otherwise normal ECG Confirmed by GUY WEBB, MARK ([id number]), script editor JEANNIE MUNGUIA ([id number]) on 05/20/2021 12:33:20 P M Referred By: Priscilla Ruelas Confirmed By:SARAH TOVAR MD
[2021-05-16 18:39] LABS: Absolute Lymphocyte Count 0.29 X10^3/uL (0.83-4.51); Absolute Neutrophil Count 8.9 X10^3/uL (2.0-7.7); Basophil# 0.04 X10^3/uL; Basophil% 0.4 % (0-1); Hematocrit 36.1 % (37-47); Hemoglobin 13.1 g/dL (12.0-15.0); Lymphocyte # 0.29 X10^3/ul (0.83-4.51); Mean Corp Hgb Conc 36.3 g/dL (32-36); Mean Corpuscular Hgb 32.6 pg (27.0-32.0); Mean Corpuscular Volume 89.8 fL (81-99); Mean Platelet Vol. 12.7 fl (6.2-12.0); Monocyte# 0.57 X10^3/uL; Monocyte% 5.8 % (0-10); NRBC Flagged by Analyzer 0.4 % (0-5); Neutrophil # 8.86 X10^3/uL (2.7-7.7); Neutrophil % 90.7 % (47-70); POSITIVE COUNT YES; POSITIVE DIFFERENTIAL YES; POSITIVE MORPHOLOGY YES; Platelet Count 77 K/mm3 (150-450); RBC Distribution Width CV 14.5 % (11.6-14.6); RBC Distribution Width SD 47.8 fl (35.1-43.9); Red Blood Count 4.02 M/mm3 (4.2-5.4); White Blood Count 9.8 K/mm3 (4.4-11.0)
--- NOTE | 2021-05-16 18:39 | EX.ED.DYSGE1 ---
HPI History of Present Illness Chief Complaint: Weakness Informant: patient, parent and family Narrative Narrative: Patient presents with family secondary to increased fatigue and weakness that have been ongoing for the last several weeks. Today she had confusion including not knowing how to get out of the room. Patient reportedly was okay when she were to bed last night. Family states that she slept in longer than normal today and then seemed confused when she got up this morning. No focal neuro deficits were noted. Patient does have a history of hypothyroidism and it appears was recently switched to [place] Thyroid in January or February. 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 [facility] Medical History Environmental illness Hypothyroid Home Medications thyroid (pork) [Calpine Thyroid] 15 mg PO SUTUTHSA 05/16/21 [History Last Taken Unknown] thyroid (pork) [Calpine Thyroid] 22.5 mg PO MOWEFR 05/16/21 [History Last Taken Unknown] Allergy/AdvReac Type Severity Reaction Status Date / Time codeine Allergy Vomiting Verified 05/16/21 18:19 lactose AdvReac Vomiting Verified 05/16/21 18:19 Family History (Updated 05/16/21 @ 21:[address] Priscilla Ruelas MD) Mother Heart disease Hypothyroidism Father OCD (obsessive compulsive disorder) Social History (Updated 05/16/21 @ 21:[address] Priscilla Ruelas MD) household members: family housing: house Smoking Status: Never smoker alcohol intake: never substance use type: does not use ROS ROS ED Constitutional Constitutional ED: Denies chills or fever(s) Eyes Eyes: Denies change in vision ENT ENT ED: Denies sore throat Cardiovascular Cardiovascular: Denies chest pain Respiratory/Chest Respiratory/Chest: Denies cough or dyspnea Gastrointestinal Gastrointestinal: Denies abdominal pain, diarrhea, nausea or vomiting Genitourinary Genitourinary ED: Denies dysuria Musculoskeletal Musculoskeletal: Denies back pain Integumentary Denies rash Neurologic Neurologic: Reports weakness; Denies headache(s) Allergic/Immunologic Allergic/Immunologic ED: Denies urticaria EXAM Physical Exam Const Vital Signs: 05/16/21 17:58 05/16/21 18:17 Temperature 96.5 F L Temperature Source Temporal Pulse Rate 66 Respiratory Rate 16 Respiratory Effort Normal Respiratory Pattern Normal Blood Pressure 118/53 L Blood Pressure Mean 74 Pulse Ox 100 Oxygen Delivery Method Room Air Positive well nourished and well developed General Appearance ED: well developed HEENT Reports moist mucous membranes Eyes PERRL and EOMs intact bilaterally Neck supple Chest Wall inspection of chest normal and palpation of chest normal Resp normal respiratory effort and clear to auscultation bilaterally Cardio Rate: bradycardia GI non-tender Auscultation: hypoactive bowel sounds Palpation: soft Extremity Extremity Narrative: 3+ pitting edema to the lower extremities. General Extremety ED: Yes edema General Extremity: edema Neuro Neuro Narrative: No focal neuro deficits noted on testing. Sensorium / Orientation: alert Psych Psych Narrative: Flat affect. Skin no rashes or lesions noted MDM MDM MDM Narrative Medical decision making narrative: Lab work including TSH obtained. Urinalysis, EKG, head CT ordered. Patient given normal saline. Lab Data Attestation: I reviewed the patient's lab results. Labs: Laboratory Results - last 24 hr 05/16/21 05/16/21 05/16/21 18:18 18:18 18:18 WBC 9.8 RBC 4.02 L Hgb 13.1 Hct 36.1 L MCV 89.8 MCH 32.6 H MCHC 36.3 H RDW Std Deviation 47.8 H RDW Coeff of Shalini 14.5 Plt Count 77 L MPV 12.7 H Immature Gran % (Auto) 0.100 Neut % (Auto) 90.7 H Lymph % (Auto) 3.0 L [place] % (Auto) 5.8 Eos % (Auto) 0.0 Baso % (Auto) 0.4 Absolute Neuts (auto) 8.9 H Absolute Lymphs (auto) 0.29 L Nucleated RBC % 0.4 Differential Comment SCANNED Platelet Estimate SLT DEC Plt Morphology Comment LARGE Sodium 121 L Potassium 4.8 Chloride 85 L Carbon Dioxide 28.0 Anion Gap 8 BUN 26 H Creatinine 0.80 Estim Creat Clear Calc 78.04 Est GFR (MDRD) Af Amer 96 Est GFR (MDRD) Non-Af 79 BUN/Creatinine Ratio 32.6 H Glucose 188 H Calcium 9.0 Total Bilirubin 0.20 Direct Bilirubin 0.08 AST 266 H ALT 212 H Alkaline Phosphatase 113 Troponin I High Sens 15 B-Natriuretic Peptide 36.2 Total Protein 4.9 L Albumin 2.1 L Globulin 2.8 TSH 9.89 H Free T4 Free T3 pg/dL FSH Urine Color Urine Clarity Urine pH Ur Specific [place] Urine Protein Urine Glucose (UA) Urine Ketones Urine Occult Blood Urine Nitrite Urine Bilirubin Urine Urobilinogen Ur Leukocyte Esterase Urine RBC Urine WBC Ur Squamous Epith Cells Calcium Oxalate Crystal Urine Bacteria Hyaline Casts Urine Mucus POC Glucose 05/16/21 05/16/21 05/16/21 18:18 18:18 18:32 WBC RBC Hgb Hct MCV MCH MCHC RDW Std Deviation RDW Coeff of Shalini Plt Count MPV Immature Gran % (Auto) Neut % (Auto) Lymph % (Auto) [place] % (Auto) Eos % (Auto) Baso % (Auto) Absolute Neuts (auto) Absolute Lymphs (auto) Nucleated RBC % Differential Comment Platelet Estimate Plt Morphology Comment Sodium Potassium Chloride Carbon Dioxide Anion Gap BUN Creatinine Estim Creat Clear Calc Est GFR (MDRD) Af Amer Est GFR (MDRD) Non-Af BUN/Creatinine Ratio Glucose Calcium Total Bilirubin Direct Bilirubin AST ALT Alkaline Phosphatase Troponin I High Sens B-Natriuretic Peptide Total Protein Albumin Globulin TSH Free T4 1.24 Free T3 pg/dL 2.1 L FSH 19.5 Urine Color Urine Clarity Urine pH Ur Specific [place] Urine Protein Urine Glucose (UA) Urine Ketones Urine Occult Blood Urine Nitrite Urine Bilirubin Urine Urobilinogen Ur Leukocyte Esterase Urine RBC Urine WBC Ur Squamous Epith Cells Calcium Oxalate Crystal Urine Bacteria Hyaline Casts Urine Mucus POC Glucose 181 H 05/16/21 19:20 WBC RBC Hgb Hct MCV MCH MCHC RDW Std Deviation RDW Coeff of Shalini Plt Count MPV Immature Gran % (Auto) Neut % (Auto) Lymph % (Auto) [place] % (Auto) Eos % (Auto) Baso % (Auto) Absolute Neuts (auto) Absolute Lymphs (auto) Nucleated RBC % Differential Comment Platelet Estimate Plt Morphology Comment Sodium Potassium Chloride Carbon Dioxide Anion Gap BUN Creatinine Estim Creat Clear Calc Est GFR (MDRD) Af Amer Est GFR (MDRD) Non-Af BUN/Creatinine Ratio Glucose Calcium Total Bilirubin Direct Bilirubin AST ALT Alkaline Phosphatase Troponin I High Sens B-Natriuretic Peptide Total Protein Albumin Globulin TSH Free T4 Free T3 pg/dL FSH Urine Color Yellow Urine Clarity Clear Urine pH 5.0 Ur Specific [place] 1.025 Urine Protein Negative Urine Glucose (UA) Normal Urine Ketones Negative Urine Occult Blood 10 H Urine Nitrite Negative Urine Bilirubin Negative Urine Urobilinogen Normal Ur Leukocyte Esterase Negative Urine RBC 0 SEEN Urine WBC 0 SEEN Ur Squamous Epith Cells 0 SEEN Calcium Oxalate Crystal 2+ Urine Bacteria 1+ Hyaline Casts 0-5 SEEN Urine Mucus 0 SEEN POC Glucose Radiography Chest X-Ray - ED: 1 View, Read by ED Physician, Normal, Heart, Lungs and Mediastinum Diagnostic Testing: Clinical Impression(s) from Imaging Studies Brain CT 05/16/21 18:24 IMPRESSION: No acute intracranial hemorrhage or mass effect. Electronically Signed: Doug Arellano MD ([place]) at 19:20 EST , Chest X-Ray 05/16/21 18:24 IMPRESSION: No acute findings in the chest. Electronically Signed: Husam Childs MD at 20:06 EST , EKG Initial EKG: Attestation: I personally reviewed and interpreted this EKG as follows: Interpretation: Sinus Bradycardia (Sinus bradycardia at 47 bpm. No acute ischemia.) Treatment and Re-Evaluation Comments:: Patient's lab work reviewed. Platelet count is low at 77,000. Sodium is now down to 121 compared to 131 on April 09. Blood sugar is elevated at 188. ALT and AST is slowly been climbing over the last several months. TSH has increased to 9.89. This was last checked on April 27 and was 6.25 at that time. Patient is being given IV fluid. Head CT unremarkable. EKG reveals bradycardia but I do not know her baseline. Blood pressure is adequate. I will speak with hospitalist regarding admission for thyroid treatment. Discharge Plan Dx/Rx/DC Orders Clinical Impression: Hyponatremia, Hypothyroid Disposition Disposition: Acute Care Hospital [facility] Discharge Date/Time: 05/16/21 21:05
[2021-05-16 18:41] LABS: Bedside Glucose 181 mg/dL (70-110)
[2021-05-16 18:49] LABS: Differential Indicated SCAN CRITERIA MET
[2021-05-16 19:00] LABS: AST(SGOT) 266 U/L (15-37); Alanine Aminotransfer ALT/SGPT 212 U/L (13-56); Albumin, Serum 2.1 g/dL (3.2-5.0); Alkaline Phosphatase 113 U/L (45-117); Anion Gap 8 (5-15); BUN 26 mg/dL (7-18); BUN/Creat Ratio 32.6 RATIO (10-20); Bilirubin, Direct 0.08 mg/dL (0.00-0.30); Chloride 85 mmol/L (98-107); EST Glomerular Filtration Rate 79 mL/min (>60); Est Glom Filt Rate - Afr Amer 96 mL/min (>60); Estimated Creatinine Clearance 78.04 ml/min; Globulin 2.8 g/dL (2.2-4.2); Glucose 188 mg/dL (74-106); Potassium 4.8 mmol/L (3.5-5.1); Protein, Total 4.9 g/dL (6.4-8.2); Sodium Level 121 mmol/L (136-145); Thyroid Stim Hormone (TSH) 9.89 uIU/mL (0.358-3.74); Troponin-I HS 15 pg/mL (3.0-54.0)
[2021-05-16 19:06] LABS: Differential Comment SCANNED
[2021-05-16 19:07] LABS: Platelet Estimate SLT DEC (ADEQ); Platelet Morphology LARGE
[2021-05-16 19:25] LABS: BNP,B-Type NATRIURETIC PEPTIDE 36.2 pg/mL (0-100)
[2021-05-16 19:26] LABS: Mucous, Urine 0 SEEN /hpf (<or=2+); Red Blood Cells-Urine 0 SEEN /hpf (0-5); Squamous Epithelial Cells - UA 0 SEEN /hpf (5-10); White Blood Cells 0 SEEN /hpf (0-5)
[2021-05-16 19:29] LABS: Color, Urine Yellow (Yellow); Glucose, Dipstick Normal (Normal); Ketone-Dipstick Negative (Negative); Leukocyte Esterase-Dipstick Negative /ul (Negative); Nitrite-Dipstick Negative (Negative); Occult Blood-Urine 10 /ul (Negative); Protein-Dipstick Negative (Negative); Specific Gravity, Urine 1.025 (1.002-1.030); Urine Bilirubin Dipstick Negative (Negative); Urine Clarity Clear (Clear); Urine Urobilinogen Normal (Normal)
[2021-05-16 19:39] LABS: Bacteria 1+ /hpf (None Seen); Calcium Oxalate Crystals Ur 2+ /hpf (<or=2+); Hyaline Cast 0-5 SEEN /lpf (0-5)
[2021-05-16] MEDS: 0.9% Normal Saline 1,000 ML 999 ML IV (19:42)
[2021-05-16] MEDS: 0.9% Normal Saline 1,000 ML 150 ML IV (19:43)
--- NOTE | 2021-05-16 19:59 | HP.PCM.HOS_ITS ---
HPI - General General Date of Admission: 05/16/21 Date of Service: 05/16/21 Chief Complaint: Fatigue, generalized weakness, leg swelling, confusion - ongoing for months, worse in the past 1 day HPI Narrative ANDREIA GALDAMEZ, is a 56 F who presents with the above ongoing for months but worse on the day of admission. Patient has reportedly multiple allergies to substances in her environment. She also has history of severe OCD and is on mul tiple herbal/homeopathic medications. Patient takes [place] Thyroid as she is reportedly unable to tolerate the other medications. Patient has noticed progressive leg swelling which has been followed up in the outpatient and worked up with no etiology. She has also been extremely fatiguing when sleeping more. Today she woke up very late in the afternoon, that was unlike her. She appeared very confused when she woke up. It took him more than 3 hours to go to her activities of daily living. She appeared to not to remember how to dress herself. She was brought to the hospital. Her vitals in the ED showed blood pressure 118/53, temperature 96.5 F, heart rate 86, SPO2 100% on room air, respiratory rate 16. Admitting blood work shows WBC count of 9.8, hemoglobin 13.1, platelet count of 77, troponin from 212 about 3 months ago. Sodium is 121, dropped from 131 about a month ago, BUN is 26, creatinine 0.87, potassium is 4.8. Glucose is 188. AST and ALT are elevated. Total albumin is 2.1, BMP every 36.2, TSH is 9.89, free T4 is 1.24, free T3 is 2.1, FSH is 19.5. CT of the brain shows no acute intracranial abnormality. Chest x-ray shows no acute cardiopulmonary process. [facility] Medical History Environmental illness Hypothyroid Home Medications thyroid (pork) [Fri[place] Thyroid] 15 mg PO SUTUTHSA 05/16/21 [History Last Taken Unknown] thyroid (pork) [[place] Thyroid] 22.5 mg PO MOWEFR 05/16/21 [History Last Taken Unknown] Allergy/AdvReac Type Severity Reaction Status Date / Time codeine Allergy Vomiting Verified 05/16/21 18:19 lactose AdvReac Vomiting Verified 05/16/21 18:19 Family History (Updated 05/16/21 @ 21:[address] Priscilla Ruelas MD) Mother Heart disease Hypothyroidism Father OCD (obsessive compulsive disorder) Surgical History no surgical history no surgical history Social History (Updated 05/16/21 @ 21:[address] Priscilla Ruelas MD) household members: family housing: house Smoking Status: Never smoker alcohol intake: never substance use type: does not use ROS ROS Narrative Constitutional: Reports: Malaise, Weakness, Fatigue, weight loss. Denies: Anorexia, Chills, Fever, Night Sweats Eyes: Denies: Blurred vision, Cataracts, Conjunctivae Inflammation, Pain, Red[place] ss, Vision Change HEENT: Denies: Difficulty Hearing, Difficulty Swallowing, Head Aches, Hearing Changes, Sinus Congestion, Sinus Drainage Cardiovascular: Admits to leg swelling, denies: Chest Pain, Orthopnea, Palpitations Respiratory: Denies: Cough, Shortness of breath at rest, Sputum production Gastrointestinal: Denies: Abdominal Pain, Nausea, Vomiting Genitourinary: Denies: Dysuria Musculoskeletal: Denies: Joint Pain, Joint stiffness, Joint swelling, Joint Tenderness Skin: Denies: Rash, Wounds Neurological: Denies: Numbness, Tingling, Focal weakness Vital Signs Vital Signs Vital Signs: 05/16/21 17:58 05/16/21 18:17 Temperature 96.5 F L Temperature Source Temporal Pulse Rate 66 Respiratory Rate 16 Respiratory Effort Normal Respiratory Pattern Normal Blood Pressure 118/53 L Blood Pressure Mean 74 Pulse Ox 100 Oxygen Delivery Method Room Air Weight Weight: 62.959 kg Body Mass Index (BMI) 19.9 Physical Exam Narrative Physical exam: General: Alert, Oriented x3, Cooperative, appears slow to answer questions HEENT: Atraumatic Oral: Moist Mucosa Neck: Supple Lungs: Diminished to auscultation Cardiovascular: HS I+II, bradycardic, no murmurs Abdomen: Bowel Sounds Present, Soft, Non Tender Extremities: Bilateral leg edema, +3 Results Lab / Micro Data Result Diagrams: 05/16/21 18:18 05/16/21 18:18 Labs: Laboratory Results - last 24 hr 05/16/21 18:18: WBC 9.8, RBC 4.02 L, Hgb 13.1, Hct 36.1 L, MCV 89.8, MCH 32.6 H, MCHC 36.3 H, RDW Std Deviation 47.8 H, RDW Coeff of Shalini 14.5, Plt Count 77 L, MPV 12.7 H, Immature Gran % (Auto) 0.100, Neut % (Auto) 90.7 H, Lymph % (Auto) 3.0 L, [place] % (Auto) 5.8, Eos % (Auto) 0.0, Baso % (Auto) 0.4, Absolute Neuts (auto) 8.9 H, Absolute Lymphs (auto) 0.29 L, Nucleated RBC % 0.4, Differential Comment SCANNED, Platelet Estimate SLT DEC, Plt Morphology Comment LARGE 05/16/21 18:18: Sodium 121 L, Potassium 4.8, Chloride 85 L, Carbon Dioxide 28.0, Anion Gap 8, BUN 26 H, Creatinine 0.80, Estim Creat Clear Calc 78.04, Est GFR (MDRD) Af Amer 96, Est GFR (MDRD) Non-Af 79, BUN/Creatinine Ratio 32.6 H, Glucose 188 H, Calcium 9.0, Total Bilirubin 0.20, Direct Bilirubin 0.08, AST 266 H, ALT 212 H, Alkaline Phosphatase 113, Troponin I High Sens 15, Total Protein 4.9 L, Albumin 2.1 L, Globulin 2.8, TSH 9.89 H 05/16/21 18:18: B-Natriuretic Peptide 36.2 05/16/21 18:32: POC Glucose 181 H 05/16/21 19:20: Urine Color Yellow, Urine Clarity Clear, Urine pH 5.0, Ur Specific [place] 1.025, Urine Protein Negative, Urine Glucose (UA) Normal, Urine Ketones Negative, Urine Occult Blood 10 H, Urine Nitrite Negative, Urine Bilirub in Negative, Urine Urobilinogen Normal, Ur Leukocyte Esterase Negative, Urine RBC 0 SEEN, Urine WBC 0 SEEN, Ur Squamous Epith Cells 0 SEEN, Calcium Oxalate Crystal 2+, Urine Bacteria 1+, Hyaline Casts 0-5 SEEN, Urine Mucus 0 SEEN Radiology Impression Brain CT 05/16/21 18:24 IMPRESSION: No acute intracranial hemorrhage or mass effect. Electronically Signed: Doug Arellano MD ([place]) at 19:20 EST Reading Location ID and State: [facility] / [place] , Service support , Assessment & Plan Assessment/Plan (1) Hyponatremia: (2) Hypothyroid: QUALIFIERS: Hypothyroidism type: unspecified Qualified Code(s): E03.9 - Hypothyroidism, unspecified PLAN: 1. Acute metabolic encephalopathy unclear etiology, likely related to hypothyroidism vs hyponatremia vs side-effects of herbal supplements Patient presentation's is not secondary to myxedema coma TSH 9.89, will continue to monitor 2. Acute on chronic hyponatremia, unclear etiology for now, likely secondary to herbal supplements Patient was admitted with sodium of 121, previously was 131 TSH is elevated Check urine osmolality, urine sodium, repeat BMP now and in am 3.Bilateral leg edema likely secondary to hypothyroidism Need to rule out acute DVT; check Doppler ultrasound lower extremities 4. Elevated liver function likely secondary to hypothyroidism, Patient has been trying to get in with GI Check hepatitis panel, GI consult 5. Thrombocytopenia, admitting platelets is 77, platelet count was 212 in previous month 6. Multiple environmental allergies 7. OCD, follows with a counselor in the outpatient 8. DVT PPx- early ambulation Charges/Coding Visit Charges Inpatient E&M: 88003 Init Hosp L3
[2021-05-16] MEDS: Levothyroxine 75 MCG Tablet PO (20:15)
[2021-05-16 20:40] LABS: Free T3 2.1 pg/mL (2.18-3.98); T4 Free Direct 1.24 ng/dL (0.76-1.46)
[2021-05-16 21:50] LABS: Follicle Stimulating Hormone 19.5 mIU/mL
--- NOTE | 2021-05-16 21:58 | VDLE_ITS ---
Reason For Study: BLE SWELLING RIGHT LEFT GSV is normal. GSV is normal. CFV is compressible, spontaneous, phasic, CFV is compressible, spontaneous, phasic, competent and demonstrates normal competent, and demonstrates normal augmentation. augmentation. FV is compressible, spontaneous, phasic, FV is compressible, spontaneous, phasic, competent and demonstrates normal competent and demonstrates normal augmentation. augmentation. POP V is compressible, spontaneous, phasic, POP V is compressible, spontaneous, phasic, competent and demonstrates normal competent and demonstrates normal augmentation. augmentation. T/P Trunk is compressible. T/P Trunk is compressible. PTV is compressible. PTV is compressible. RT PerV is compressible. LT PerV is compressible. Procedure This is a venous duplex using B-mode, color flow and spectral Doppler. Exam performed portable in patient room. The exam was diagnostic. A preliminary report was called and/or faxed to [facility]. VL/Venous Duplex US - Nadeem Extrem Interpretation Summary Deep veins of the lower extremities are bilaterally patent and compressible seg mentally. There is no evidence of deep vein thrombosis on either side. Valvular competence appears in tact within the proximal deep venous systems bilaterally. The great saphenous veins appear bila terally patent and compressible segmentally. Ordering Physician: Priscilla Ruelas Referring Physician: Loi De La Rosa Performed By: Sheba Urbano, ROMECS, RVT
[2021-05-16 23:37] LABS: Anion Gap 7 (5-15); BUN 24 mg/dL (7-18); BUN/Creat Ratio 45.5 RATIO (10-20); Calcium,Total 8.3 mg/dL (8.5-10.1); Chloride 90 mmol/L (98-107); Creatinine, Serum 0.53 mg/dL (0.55-1.02); EST Glomerular Filtration Rate 127 mL/min (>60); Est Glom Filt Rate - Afr Amer 154 mL/min (>60); Estimated Creatinine Clearance 118.25 ml/min; Glucose 88 mg/dL (74-106); Potassium 4.8 mmol/L (3.5-5.1); Sodium Level 124 mmol/L (136-145)
[2021-05-17] VITALS (10 sets, daily range): BP systolic 108–150; BP diastolic 62–90; PULSE 47–135; RESP 16–18; TEMP 36.1–36.3; O2SAT 97–100
[2021-05-17] MEDS: Hydrocortisone Sod Succinate 100 MG/2 ML Vial IV ×2 (00:02→06:37)
[2021-05-17] MEDS: 0.9% Saline Lock 10 ML Syringe IV (00:04)
[2021-05-17 06:54] LABS: Absolute Lymphocyte Count 0.23 X10^3/uL (0.83-4.51); Absolute Neutrophil Count 5.3 X10^3/uL (2.0-7.7); Basophil# 0.02 X10^3/uL; Basophil% 0.4 % (0-1); Hematocrit 33.1 % (37-47); Hemoglobin 12.2 g/dL (12.0-15.0); Lymphocyte # 0.23 X10^3/ul (0.83-4.51); Lymphocyte % 4.1 % (19-41); Mean Corp Hgb Conc 36.9 g/dL (32-36); Mean Corpuscular Hgb 32.4 pg (27.0-32.0); Monocyte# 0.07 X10^3/uL; Monocyte% 1.2 % (0-10); NRBC Flagged by Analyzer 0.5 % (0-5); Neutrophil # 5.33 X10^3/uL (2.7-7.7); Neutrophil % 94.1 % (47-70); POSITIVE COUNT YES; POSITIVE DIFFERENTIAL YES; POSITIVE MORPHOLOGY YES; Platelet Count 67 K/mm3 (150-450); RBC Distribution Width CV 14.1 % (11.6-14.6); RBC Distribution Width SD 45.2 fl (35.1-43.9); Red Blood Count 3.76 M/mm3 (4.2-5.4); White Blood Count 5.7 K/mm3 (4.4-11.0)
[2021-05-17 06:59] LABS: Differential Indicated SCAN CRITERIA MET
[2021-05-17 07:40] LABS: ALB/GLOB Ratio 0.7 RATIO (0.9-2.4); AST(SGOT) 230 U/L (15-37); Alanine Aminotransfer ALT/SGPT 192 U/L (13-56); Albumin, Serum 1.8 g/dL (3.2-5.0); Alkaline Phosphatase 106 U/L (45-117); Anion Gap 8 (5-15); BUN 20 mg/dL (7-18); BUN/Creat Ratio 47.6 RATIO (10-20); Calcium,Total 8.6 mg/dL (8.5-10.1); Chloride 91 mmol/L (98-107); Creatinine, Serum 0.42 mg/dL (0.55-1.02); EST Glomerular Filtration Rate 166 mL/min (>60); Est Glom Filt Rate - Afr Amer 201 mL/min (>60); Estimated Creatinine Clearance 151.58 ml/min; Globulin 2.7 g/dL (2.2-4.2); Glucose 80 mg/dL (74-106); Potassium 4.9 mmol/L (3.5-5.1); Protein, Total 4.5 g/dL (6.4-8.2); Sodium Level 125 mmol/L (136-145)
[2021-05-17 08:29] LABS: Differential Comment SCANNED; Platelet Estimate MOD DEC (ADEQ); Platelet Morphology LARGE
[2021-05-17 09:50] LABS: Hemoglobin A1c 5.5 % (3.8-5.6)
--- NOTE | 2021-05-17 11:33 | PN.HOSP_ITS ---
Subjective Subjective Presents with progressive weakness over months. Increased lower extremity edema. Its unclear if she has had any weight change. States that she eats enough. Has not had a colonoscopy but is scheduled to see Dr. Friend next month. Washes her hands a lot. Objective Data Objective Data Vital Signs: Vital Signs Temp Pulse Resp BP Pulse Ox 36.1 C L 57 L 18 132/70 H 100 05/17/21 05:15 05/17/21 06:49 05/17/21 05:15 05/17/21 05:15 05/17/21 05:15 Oxygen Delivery Method Room Air Weight: 64.2 kg Body Mass Index (BMI) 20.0 Intake & Output: Intake and Output for Last 24 Hours 05/15/21 05/16/21 05/17/21 23:59 23:59 23:59 Intake Total 1008 / 1008 552.5 / 552.5 Output Total 0 / 0 Balance 1008 / 1008 552.5 / 552.5 Lab / Micro Data Result Diagrams: 05/17/21 06:06 05/17/21 06:06 Labs: Laboratory Results - last 24 hr 05/16/21 18:18: WBC 9.8, RBC 4.02 L, Hgb 13.1, Hct 36.1 L, MCV 89.8, MCH 32.6 H, MCHC 36.3 H, RDW Std Deviation 47.8 H, RDW Coeff of Shalini 14.5, Plt Count 77 L, MPV 12.7 H, Immature Gran % (Auto) 0.100, Neut % (Auto) 90.7 H, Lymph % (Auto) 3.0 L, [place] % (Auto) 5.8, Eos % (Auto) 0.0, Baso % (Auto) 0.4, Absolute Neuts (auto) 8.9 H, Absolute Lymphs (auto) 0.29 L, Nucleated RBC % 0.4, Differential Comment SCANNED, Platelet Estimate SLT DEC, Plt Morphology Comment LARGE 05/16/21 18:18: Sodium 121 L, Potassium 4.8, Chloride 85 L, Carbon Dioxide 28.0, Anion Gap 8, BUN 26 H, Creatinine 0.80, Estim Creat Clear Calc 78.04, Est GFR (MDRD) Af Amer 96, Est GFR (MDRD) Non-Af 79, BUN/Creatinine Ratio 32.6 H, Glucose 188 H, Calcium 9.0, Total Bilirubin 0.20, Direct Bilirubin 0.08, AST 266 H, ALT 212 H, Alkaline Phosphatase 113, Troponin I High Sens 15, Total Protein 4.9 L, Albumin 2.1 L, Globulin 2.8, TSH 9.89 H 05/16/21 18:18: B-Natriuretic Peptide 36.2 05/16/21 18:18: Free T4 1.24, Free T3 pg/dL 2.1 L 05/16/21 18:18: Cortisol 29.10 H 05/16/21 18:18: FSH 19.5 05/16/21 18:32: POC Glucose 181 H 05/16/21 19:20: Urine Color Yellow, Urine Clarity Clear, Urine pH 5.0, Ur Specific [place] 1.025, Urine Protein Negative, Urine Glucose (UA) Normal, Urine Ketones Negative, Urine Occult Blood 10 H, Urine Nitrite Negative, Urine Bilirubin Negative, Urine Urobilinogen Normal, Ur Leukocyte Esterase Negative, Urine RBC 0 SEEN, Urine WBC 0 SEEN, Ur Squamous Epith Cells 0 SEEN, Calcium Oxalate Crystal 2+, Urine Bacteria 1+, Hyaline Casts 0-5 SEEN, Urine Mucus 0 SEEN 05/16/21 22:55: Cortisol 33.80 H 05/16/21 22:55: Sodium 124 L, Potassium 4.8, Chloride 90 L, Carbon Dioxide 27.0, Anion Gap 7, BUN 24 H, Creatinine 0.53 L, Estim Creat Clear Calc 118.25, Est GFR (MDRD) Af Amer 154, Est GFR (MDRD) Non-Af 127, BUN/Creatinine Ratio 45.5 H, Glucose 88, Calcium 8.3 L 05/17/21 06:06: Hemoglobin A1c 5.5 05/17/21 06:06: WBC 5.7, RBC 3.76 L, Hgb 12.2, Hct 33.1 L, MCV 88.0, MCH 32.4 H, MCHC 36.9 H, RDW Std Deviation 45.2 H, RDW Coeff of Shalini 14.1, Plt Count 67 L, Immature Gran % (Auto) 0.200, Neut % (Auto) 94.1 H, Lymph % (Auto) 4.1 L, [place] % (Auto) 1.2, Eos % (Auto) 0.0, Baso % (Auto) 0.4, Absolute Neuts (auto) 5.3, Absolute Lymphs (auto) 0.23 L, Nucleated RBC % 0.5, Differential Comment SCANNED, Platelet Estimate MOD DEC, Plt Morphology Comment LARGE 05/17/21 06:06: Sodium 125 L, Potassium 4.9, Chloride 91 L, Carbon Dioxide 26.0, Anion Gap 8, BUN 20 H, Creatinine 0.42 L, Estim Creat Clear Calc 151.58, Est GFR (MDRD) Af Amer 201, Est GFR (MDRD) Non-Af 166, BUN/Creatinine Ratio 47.6 H, Glucose 80, Calcium 8.6, Total Bilirubin 0.20, AST 230 H, ALT 192 H, Alkaline Phosphatase 106, Total Protein 4.5 L, Albumin 1.8 L, Globulin 2.7, Albumin/Globulin Ratio 0.7 L Radiography Diagnostic Testing: Radiology Impression Brain CT 05/16/21 18:24 IMPRESSION: No acute intracranial hemorrhage or mass effect. Electronically Signed: Doug Arellano MD (Brooks) at 19:20 EST , Chest X-Ray 05/16/21 18:24 IMPRESSION: No acute findings in the chest. Electronically Signed: Husam Childs MD at 20:06 EST , Physical Exam Const alert and no apparent distress HEENT head/scalp atraumatic Head and Scalp: normocephalic Eyes Eyes Narrative: No icterus Neck no lymphadenopathy Neck Narrative: No thyromegaly Resp normal respiratory effort, no retractions, no use of accessory muscles and clear to auscultation bilaterally Cardio regular rate, regular rhythm, S1 normal heart sound and S2 normal heart sound GI normal to inspection, nondistended, normoactive bowel sounds, soft to palpation, non-tender and non-distended Extremity normal to inspection Extremity Narrative: 2+ lower extremity edema Skin Skin Narrative: Erythema over her digits and knuckles. Neuro Sensorium / Orientation: awake and alert Psych Psych Narrative: Flat affect Assessment & Plan Assessment/Plan (1) Hyponatremia: (2) Hypothyroid: QUALIFIERS: Hypothyroidism type: unspecified Qualified Code(s): E03.9 - Hypothyroidism, unspecified (3) Severe protein-calorie malnutrition: (4) Contact dermatitis: QUALIFIERS: Contact dermatitis type: irritant Contact dermatitis trigger: detergents Qualified Code(s): L24.0 - Irritant contact dermatitis due to detergents (5) Debility: (6) COVID-19 vaccination declined: (7) Polypharmacy: PLAN: 1. Hyponatremia Unclear etiology could be medication the patient does take numerous herbal supplements but could also be SIADH and also hypothyroidism. No evidence of adrenal insufficiency Check urine studies to further evaluate this if confirmed to be SIADH the patient will need to be on fluid restricted diet 2. Hypothyroid TSH elevated at 9.9 but the T4 was within normal limits at 1.24. Patient does not have myxedema coma Patient takes [place] Thyroid but given that those levels can be difficult to control that medication patient has been changed over to levothyroxine. Patient to follow-up with Dr. Gil of endocrinology as outpatient 3. Protein calorie malnutrition Albumin is 1.8 Patient has lower extremity edema I feel this is probably more from third spacing given her low oncotic pressure Nutrition consult 4. Elevated liver transaminases Not a cholestatic picture as bilirubin is normal Gastroenterology on consult Patient did have an ultrasound performed on 23 April that was unremarkable 5. Contact dermatitis From excessive washing of her hands Patient is evasive in regards to how often she washes her hands but I imagine at least double digits I did speak with her about developing fissures on her hands which could be a risk for infection. She states that she is a germaphobe. I told her that she does need to minimize her handwashing. She does state that she does use moisturizers on her hands. 6. COVID-19 vaccine declined Patient is also not had the influenza vaccine. Start recommend that she received both and to let us know if she does wish to receive vaccines while she is here 7. Herbal polypharmacy and traditional medicine hesitancy Primarily herbal supplements. I obtained a list from the patient's sister do not have dosing of what she is on and the list is as follows: Melatonin, potassium chelate, digestzyme-V, dandelion, milk thistle, acetyl l-carnitine, vitamin D, activated charcoal, chromium, Wilber kimmie probiotic, calcium magnesium I explained to the patient and her sister that these herbal medications there is no studies to support the use of what these are reported to be used for. Informed them both that with medications, such as levothyroxine, that there are data to support its usage and a risk profile. Where there is no studies to support any risk profile with any of these other medications. Told them both that with her being progressively weak that I am going to clean the deck and hold all these herbal supplements as I am concerned about them contributing to her overall condition. Complicating this is what is probably an underlying fear or paranoia of the medical community. Patient's sisters state that the patient follows with an integrative medicine doctor at [facility]. Informed them both that the recommendations that we have are likely going to be different and perhaps even contrary to what she has been told with her integrative medicine doctor we are here to try to help her. Patient reluctantly agrees to proceed with our treatments. I did inform the patient that she will be on levothyroxine and not her [place] Thyroid that she takes at home. Patient has not even had routine colonoscopy which is a very poor in regards to this patient's weight loss. She has though had recent mammograms. It is noted that the patient initially was evasive about some of her answers. I spoke to her directly that she just needs to answer in the affirmative yes no or quantified number, such as tummy time she washes her hands. Informed her that being invasive does not help us help her effectively. 8. Debility Likely multifactorial due to poor nutritional status, hyponatremia and overall weight loss. Seen by physical therapy recommends additional therapy services. Patient was ab le to ambulate 160 feet in the hallway without an assist device and with minimal assistance but patient did appear to be unsteady. 9. VTE prophylaxis with enoxaparin Greater than 60 minutes of which greater than 50% of time was discussed with the patient and her sister, reviewing her medications and also he was switching her fears in regards to being mandated to take any medications or do services as she is uncomfortable with. Informed her that those, such as myself, and the medical community what what is best for her and we would be monitoring her and she would require further follow-up as outpatient. Additionally strongly recommending being vaccinated for influenza as well as COVID-19. Charges/Coding Visit Charges Inpatient E&M: 23999 Subs Hosp L3
[2021-05-17 13:16] LABS: Osmolality, Serum 262 mOsm/KG (275-295)
[2021-05-17 18:14] LABS: Urine Sodium < 5 mmol/L (Not Establ.)
[2021-05-17 19:08] LABS: Osmolality, Urine 502 mOsm/KG
--- NOTE | 2021-05-17 19:51 | PCM.PN.BLA ---
Progress Note Urine osmolarity is high and more than plasma osmolarity. However urine sodium is low. Will put patient on a fluid restriction.
[2021-05-17] MEDS: Enoxaparin 40 MG/0.4 ML Syringe SC (20:23)
[2021-05-18] VITALS (9 sets, daily range): BP systolic 95–106; BP diastolic 65–77; PULSE 57–76; RESP 16–17; TEMP 36.4–36.8; O2SAT 96–100
[2021-05-18] MEDS: Levothyroxine 75 MCG Tablet PO (06:55)
[2021-05-18 07:37] LABS: ALB/GLOB Ratio 0.6 RATIO (0.9-2.4); AST(SGOT) 211 U/L (15-37); Alanine Aminotransfer ALT/SGPT 187 U/L (13-56); Albumin, Serum 1.3 g/dL (3.2-5.0); Alkaline Phosphatase 85 U/L (45-117); Anion Gap 5 (5-15); BUN 28 mg/dL (7-18); BUN/Creat Ratio 41.4 RATIO (10-20); Chloride 95 mmol/L (98-107); Creatinine, Serum 0.68 mg/dL (0.55-1.02); EST Glomerular Filtration Rate 96 mL/min (>60); Est Glom Filt Rate - Afr Amer 116 mL/min (>60); Estimated Creatinine Clearance 90.71 ml/min; Globulin 2.2 g/dL (2.2-4.2); Glucose 65 mg/dL (74-106); Potassium 4.7 mmol/L (3.5-5.1); Protein, Total 3.5 g/dL (6.4-8.2); Sodium Level 127 mmol/L (136-145)
[2021-05-18] MEDS: Furosemide 100 MG/10 ML Vial 60 MG IV (09:10)
[2021-05-18] MEDS: 0.9% Saline Lock 10 ML Syringe IV ×2 (09:11→22:51)
[2021-05-18] MEDS: Sodium Chloride 1 GM Tablet PO ×2 (10:13→21:06)
--- NOTE | 2021-05-18 11:57 | PCM.PN.HOSP ---
Subjective Subjective Patient is a 56-year-old lady admitted with increasing fatigue generalized weakness and confusion. Patient was found to be hyponatremic with sodium level of 121 on admission. Admitted to monitored bed for subsequent evaluation and management Objective Data Objective Data Vital Signs: Vital Signs Temp Pulse Resp BP Pulse Ox 98.0 F 63 16 95/67 96 05/18/21 08:15 05/18/21 08:15 05/18/21 08:15 05/18/21 08:15 05/18/21 08:15 Oxygen Delivery Method Room Air Weight: 62.2 kg Body Mass Index (BMI) 20.0 Intake & Output: Intake and Output for Last 24 Hours 05/16/21 05/17/21 05/18/21 23:59 23:59 23:59 Intake Total 1008 / 1008 792.5 / 792.5 100 / 100 Output Total 0 / 125 325 / 325 Balance 1008 / 1008 792.5 / 667.5 -225 / -225 Lab / Micro Data Result Diagrams: 05/17/21 06:06 05/18/21 06:54 Labs: Laboratory Results - last 24 hr 05/17/21 06:06: Serum Osmolality 262 L 05/17/21 17:07: Urine Osmolality 502, Ur Random Sodium < 5 05/18/21 06:54: Sodium 127 L, Potassium 4.7, Chloride 95 L, Carbon Dioxide 27.0, Anion Gap 5, BUN 28 H, Creatinine 0.68, Estim Creat Clear Calc 90.71, Est GFR (MDRD) Af Amer 116, Est GFR (MDRD) Non-Af 96, BUN/Creatinine Ratio 41.4 H, Glucose 65 L, Calcium 8.0 L, Total Bilirubin 0.10 L, AST 211 H, ALT 187 H, Alkaline Phosphatase 85, Total Protein 3.5 L, Albumin 1.3 L, Globulin 2.2, Albumin/Globulin Ratio 0.6 L Radiography Diagnostic Testing: Radiology Impression Venous Doppler Study 05/16/21 21:58 Interpretation Summary Deep veins of the lower extremities are bilaterally patent and compressible segmentally. There is no evidence of deep vein thrombosis on either side. Valvular competence appears intact within the proximal deep venous systems bilaterally. The great saphenous veins appear bilaterally patent and compressible segmentally. Ordering Physician: Priscilla Ruelas Referring Physician: Loi De La Rosa Performed By: Sheba Urbano RDCS, RVT Physical Exam Narrative GENERAL: cooperative HEENT: Atraumatic; EYES; Anicteric, Normal Conjunctiva NECK; supple, normal thyroid, RESPIRATORY: Diminished to auscultation CARDIOVASCULAR: Regular S1 S2, GI: soft, normoactive bowel sounds, : No Renal angle tenderness; EXTREMITIES: Bipedal edema, no clubbing, MUSCULOSKELETAL: no muscle wasting NEURO: Awake; no lateralizing signs. SKIN: No Rash PSYCH; Flat affect Assessment & Plan Assessment/Plan (1) Hyponatremia: (2) Hypothyroid: QUALIFIERS: Hypothyroidism type: unspecified Qualified Code(s): E03.9 - Hypothyroidism, unspecified (3) Severe protein-calorie malnutrition: (4) Contact dermatitis: QUALIFIERS: Contact dermatitis type: irritant Contact dermatitis trigger: detergents Qualified Code(s): L24.0 - Irritant contact dermatitis due to detergents (5) Debility: (6) COVID-19 vaccination declined: (7) Polypharmacy: PLAN: Patient is a 56-year-old lady admitted with increasing fatigue generalized weakness and confusion. Patient was found to be hyponatremic with sodium level of 121 on admission. Admitted to monitored bed for subsequent evaluation and management 1. Hyponatremia ?Multifactorial including excessive free water intake, SIADH as well as low salt intake. Patient SIADH confirmed with urine studies. Patient placed on fluid restriction. Also did add sodium tablets. Subsequent monitoring with serial BMPs ordered 2. Bipedal edema ?Secondary to severe hypoalbuminemia 3. Protein calorie malnutrition ?As evidenced by decreased energy level, hypoalbuminemia as well as low BMI of 19. Consult placed to dietitian 4. Hypothyroidism ?Patient was on [place] Thyroid prior to being admitted. TSH was found to be elevated at 9.9. Patient [place] Thyroid discontinued started on levothyroxine 5. Elevated transaminases ?Etiology not clear, acute hepatitis panel ordered results pending. Gallbladder ultrasound obtained demonstrated no suspicious solid organ abnormality 6. Physical deconditioning - Requested for PT OT eval and licensed master social worker to assist with discharge planning 7. DVT prophylaxis ?Enoxaparin Charges/Coding Visit Charges Inpatient E&M: 39767 Subs Hosp L2
[2021-05-18 14:01] LABS: Anion Gap 7 (5-15); BUN 27 mg/dL (7-18); BUN/Creat Ratio 33.9 RATIO (10-20); Calcium,Total 8.5 mg/dL (8.5-10.1); Chloride 93 mmol/L (98-107); EST Glomerular Filtration Rate 79 mL/min (>60); Est Glom Filt Rate - Afr Amer 96 mL/min (>60); Glucose 84 mg/dL (74-106); Sodium Level 127 mmol/L (136-145)
--- NOTE | 2021-05-18 14:25 | CASEMGMT ---
JOHN LEO assessment: Face to Face with patient for initial transition planning/care coordination assessment. JOHN LEO introduced self and role at [facility], pt voices understanding and consents to assessment. Pt is sitting up in bed in no distress on room air. Pt is A/Ox4 and answers all questions appropriately. Care providers, pharmacy, and demographics verified/updated. 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 Pt is unsure who her HPOA is at this time. LNOK: Shayla Glez, mother; Lizett Luciano, sister Living Arrangements: Pt lives with mother in 1 story home with bathroom in basement and states no concerns at home. Pt is independent with ADL's. Transportation: Pt's mother does most of driving and sister at bedside states some transportation concerns. Pt/sister provided with [facility] van transportation info, voice understanding. DME/HHC: Pt has a cane and walker at home but does not use and states no further need for DME. Pt states no hx of HHC or SNF. Pt states no concerns with going home at time of discharge. Pt is unemployed. Pt does not smoke cigarettes or drink ETOH. Pt states no further concerns/needs. CM to follow for PT/OT and any further discharge planning/needs. Advised pt to ask for CM if any further questions/concerns/needs arise, voices understanding. Pt Goal: Home Plan: [place] JOHN LEO
--- NOTE | 2021-05-18 17:35 | CT_ITS ---
EXAM: CT HEAD WITHOUT INTRAVENOUS CONTRAST : 1965 CLINICAL INDICATION: confusion/aphasia TECHNIQUE: Multiple axial images were obtained of the head without intravenous contrast. This CT exam was performed using one or more of the following dose reduction techniques: automated exposure control, adjustment of the mA and/or kV according to patient size, and/or use of iterative reconstruction technique. This report was created using [employer] report generation technology. COMPARISON: 05/16/2021 FINDINGS: BRAIN AND EXTRA-AXIAL SPACES: Unremarkable. No intra- or extra-axial hemorrhage. No evidence of acute infarct. No intracranial mass or mass effect. There is preservation of the saenz/white matter interface. Posterior fossa structures are unremarkable. Ventricles are appropriate for age. No hydrocephalus. Basal cisterns are patent. BONES/JOINTS: Unremarkable. No discrete lytic or blastic abnormalities. SINUSES: Unremarkable as visualized. Clear. MASTOID AIR CELLS: Unremarkable. Clear. ORBITS: Visualized globes, extraocular muscles, optic nerves and retrobulbar fat appear unremarkable. CT/Brain/Head without Contrast IMPRESSION: Negative head/brain CT without intravenous contrast. Individualized dose optimization techniques were used for this CT. at 1759 Reported and signed by: Christ Major MD Electronically Signed: Christ Major MD at 17:57 EST ,
[2021-05-18 17:41] LABS: Bedside Glucose 93 mg/dL (70-110)
--- NOTE | 2021-05-18 18:41 | EX.PCM.CON.G ---
HPI Consult Data Date of Consult: 05/18/21 HPI Narrative HPI Narrative: ANDREIA GALDAMEZ, is a 56 F who presents to the ED for evaluation of fatigue weakness, lethargy, leg swelling and confusion along with progressive weight loss. She has a past medical history of severely OCD. She noticed progressive leg swelling which has been followed up in the outpatient and worked up with no etiology. She has also been extremely fatiguing when sleeping more. Today she woke up very late in the afternoon, that was unlike her. She appeared very confused when she woke up. It took him more than 3 hours to go to her activities of daily living. She appeared to not to remember how to dress herself. She was brought to the hospital. Her vitals in the ED showed blood pressure 118/53, temperature 96.5 F, heart rate 86, SPO2 100% on room air, respiratory rate 16. Admitting blood work shows WBC count of 9.8, hemoglobin 13.1, platelet count of 77, troponin from 212 about 3 months ago. Sodium is 121, dropped from 131 about a month ago, BUN is 26, creatinine 0.87, potassium is 4.8. Glucose is 188. AST and ALT are elevated. Total albumin is 2.1, BMP every 36.2, TSH is 9.89, free T4 is 1.24, free T3 is 2.1, FSH is 19.5. CT of the brain shows no acute intracranial abnormality. Chest x-ray shows no acute cardiopulmonary process. I was consulted for elevated liver enzymes. She has no previous history of liver disease. She denies any history of chronic hepatitis C or chronic hepatitis B. She denies any history of HIV. She has no family history of liver disease. [facility] Medical History (Updated 05/18/21 @ 18:[address] Monahan Friend, DO) COVID-19 vaccination declined Environmental illness Hypothyroid Obsessive compulsive disorder Polypharmacy Home Medications thyroid (pork) [[place] Thyroid] 15 mg PO SUTUTHSA 05/16/21 [History Last Taken Unknown] thyroid (pork) [[place] Thyroid] 22.5 mg PO MOWEFR 05/16/21 [History Last Taken Unknown] Allergy/AdvReac Type Severity Reaction Status Date / Time codeine Allergy Vomiting Verified 05/16/21 18:19 lactose AdvReac Vomiting Verified 05/16/21 18:19 Family History (Updated 05/16/21 @ 21:[address] Priscilla Ruelas MD) Mother Heart disease Hypothyroidism Father OCD (obsessive compulsive disorder) Surgical History no surgical history Social History (Updated 05/16/21 @ 21:[address] Priscilla Ruelas MD) household members: family housing: house Smoking Status: Never smoker alcohol intake: never substance use type: does not use ROS Review of Systems ROS Unobtainable: other Constitutional Constitutional: Reports anorexia, daytime sleepiness and poor appetite ENT HEENT: Denies mouth lesions Cardiovascular Cardiovascular: Denies abdominal bloating, abdominal edema or abdominal pain Respiratory/Chest Respiratory/Chest: Denies change in mental status, change in phlegm color, chest congestion or chest tightness Gastrointestinal Gastrointestinal: Denies belching, bloating, change in bowel habits, change in stool character, chewing difficulty, coffee ground emesis, constipation, cramping, diarrhea, dyspepsia, dysphagia, early satiety, excessive flatus, fecal incontinence, heartburn, hematemesis, hematochezia, hemorrhoids, loose stools, melena, nausea, odynophagia, rectal bleeding, tenesmus, vomiting or weight changes Genitourinary Genitourinary: Denies abdominal discomfort, burning urination or itching Musculoskeletal Musculoskeletal: Reports as per HPI; Denies muscle weakness or myalgias Integumentary Integumentary: Denies jaundice Neurologic Neurologic: Denies lack of coordination or weakness Psychiatric Psychiatric: Denies confusion, depression, memory loss, mood swings, paranoia or suicidal ideation Endocrine Endocrinology: Denies systems reviewed and no addt'l complaints, except as documented Hematologic/Lymphatic Hematologic/Lymphatic: Denies anemia, easy bleeding, easy bruising or lymphadenopathy Allergic/Immunologic Allergic/Immunologic: Denies systems reviewed and no addt'l complaints, except as documented Physical Exam Const alert General Appearance: cooperative Orientation / Consciousness: oriented to person HEENT hearing grossly normal bilaterally Head and Scalp: normal to inspection Face and Sinus: face symmetric Nose: external nose normal Mouth: oral and palatal mucosa normal Eyes conjunctivae normal General Eye: normal appearance of both eyes Neck full ROM General: normal visual inspection Lymph Lymphatic: no lymphadenopathy noted Chest inspection of chest normal and palpation of chest normal Chest: symmetrical chest wall rise Resp normal respiratory effort Effort and Inspection: able to speak in complete sentences Cardio regular rate GI non-distended Percussion: normal to percussion Rectal Exam: deferred Neuro Speech: speech normal Gait (Neuro): normal gait Lab / Micro Data Result Diagrams: 05/17/21 06:06 05/18/21 13:14 Labs: Laboratory Results - last 24 hr 05/17/21 17:07: Urine Osmolality 502 05/18/21 06:54: Sodium 127 L, Potassium 4.7, Chloride 95 L, Carbon Dioxide 27.0, Anion Gap 5, BUN 28 H, Creatinine 0.68, Estim Creat Clear Calc 90.71, Est GFR (MDRD) Af Amer 116, Est GFR (MDRD) Non-Af 96, BUN/Creatinine Ratio 41.4 H, Glucose 65 L, Calcium 8.0 L, Total Bilirubin 0.10 L, AST 211 H, ALT 187 H, Alkaline Phosphatase 85, Total Protein 3.5 L, Albumin 1.3 L, Globulin 2.2, Albumin/Globulin Ratio 0.6 L 05/18/21 13:14: Sodium 127 L, Potassium 4.0, Chloride 93 L, Carbon Dioxide 27.0, Anion Gap 7, BUN 27 H, Creatinine 0.80, Estim Creat Clear Calc 77.10, Est GFR (MDRD) Af Amer 96, Est GFR (MDRD) Non-Af 79, BUN/Creatinine Ratio 33.9 H, Glucose 84, Calcium 8.5 05/18/21 17:21: POC Glucose [address] 05/18/21 17:35 IMPRESSION: Negative head/brain CT without intravenous contrast. Individualized dose optimization techniques were used for this CT. 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 Her imaging does not show any signs of cirrhosis (2) Severe protein-calorie malnutrition: PLAN: From unknown cause at this time. She should be checked for a protein-losing nephropathy with a stool for alpha-1 antitrypsin. She has no pre-existing history of acute or chronic pancreatitis which would explain severe protein, nutrition. Check B12, folic acid and thyroid. She will also undergo an EGD and colonoscopy to evaluate her GI tract for underlying malignancy. (3) Elevated liver enzymes: PLAN: Her elevated liver enzymes could be enzymes. Recommend to check a CPK. Recommended check labs to rule out autoimmune disease affecting liver or chronic viral hepatitis. Also dual diagnosis with weight loss and severe protein, nutrition will be celiac disease which can increase liver function test and liver enzymes. Charges/Coding Visit Charges Inpatient E&M: 13092 Init Hosp L3
[2021-05-18] MEDS: Bisacodyl 5 MG Tablet 20 MG PO (21:07)
[2021-05-18] MEDS: Enoxaparin 40 MG/0.4 ML Syringe SC (21:08)
[2021-05-18] MEDS: Polyethylene Glycol 3350 BOWEL PREP PO (21:09)
[2021-05-18 21:11] LABS: LDH 322 U/L (84-246)
[2021-05-18 21:21] LABS: CPK Total, Creatine Kinase 281 U/L (26-192); Prolactin 9.2 ng/mL; Thyroid Stim Hormone (TSH) 5.51 uIU/mL (0.358-3.74)
[2021-05-18 21:23] LABS: Erythrocyte Sedimentation Rate 15 mm/hr (0-30)
[2021-05-18 22:43] LABS: Protein, Urine (Random) 6.2 mg/dL (<11.9)
[2021-05-19] VITALS (15 sets, daily range): BP systolic 91–109; BP diastolic 62–80; PULSE 51–84; RESP 14–17; TEMP 35.8–36.6; O2SAT 97–100; BMI 19.5
[2021-05-19] MEDS: 0.9% Normal Saline 1,000 ML 15 ML IV (00:57)
--- NOTE | 2021-05-19 05:55 | EKG12_ITS ---
Test Reason : AM EKG Blood Pressure : / mmHG Vent. Rate : 074 BPM Atrial Rate : 074 BPM P-R Int : 170 ms QRS Dur : 092 ms QT Int : 370 ms P-R-T Axes : 073 057 255 degrees QTc Int : 410 ms Normal sinus rhythm Right atrial enlargement ST & T wave abnormality, consider anterolateral ischemia Abnormal ECG Confirmed by MALCOLM WEBB, ALEKSANDER ([id number]), subeditor JEANNIE MUNGUIA ([id number]) on 05/21/2021 8:32:12 AM Referred By: Priscilla Ruelas Confirmed By:ALEKSANDER FOWLER MD
[2021-05-19 06:10] LABS: Absolute Lymphocyte Count 0.28 X10^3/uL (0.83-4.51); Absolute Neutrophil Count 3.4 X10^3/uL (2.0-7.7); Basophil# 0.01 X10^3/uL; Basophil% 0.3 % (0-1); Eosinophil# 0.01 X10^3/uL; Eosinophils% 0.3 % (0-5); Hematocrit 28.2 % (37-47); Hemoglobin 10.2 g/dL (12.0-15.0); Lymphocyte # 0.28 X10^3/ul (0.83-4.51); Lymphocyte % 7.3 % (19-41); Mean Corp Hgb Conc 36.2 g/dL (32-36); Mean Corpuscular Hgb 32.5 pg (27.0-32.0); Mean Corpuscular Volume 89.8 fL (81-99); Mean Platelet Vol. 12.2 fl (6.2-12.0); Monocyte# 0.14 X10^3/uL; Monocyte% 3.7 % (0-10); NRBC Flagged by Analyzer 0 % (0-5); Neutrophil # 3.37 X10^3/uL (2.7-7.7); Neutrophil % 88.1 % (47-70); POSITIVE COUNT YES; POSITIVE DIFFERENTIAL YES; Platelet Count 81 K/mm3 (150-450); RBC Distribution Width CV 14.4 % (11.6-14.6); RBC Distribution Width SD 46.5 fl (35.1-43.9); Red Blood Count 3.14 M/mm3 (4.2-5.4); White Blood Count 3.8 K/mm3 (4.4-11.0)
[2021-05-19 06:13] LABS: Differential Indicated SCAN CRITERIA MET
[2021-05-19] MEDS: Magnesium Citrate 300 ML PO (06:59)
[2021-05-19] MEDS: Electrolyte Solution/Peg's 4000 ML PO (07:00)
[2021-05-19 07:08] LABS: HEPATITIS B SURFACE AG Negative (Negative); Hepatitis A IgM Antibody Negative (Negative); Hepatitis B Core AB IgM Negative (Negative)
[2021-05-19 07:10] LABS: AST(SGOT) 240 U/L (15-37); Alanine Aminotransfer ALT/SGPT 232 U/L (13-56); Albumin, Serum 1.7 g/dL (3.2-5.0); Alkaline Phosphatase 104 U/L (45-117); Anion Gap 7 (5-15); BUN 27 mg/dL (7-18); BUN/Creat Ratio 39.5 RATIO (10-20); Bilirubin, Direct < 0.05 mg/dL (0.00-0.30); Calcium,Total 8.4 mg/dL (8.5-10.1); Chloride 95 mmol/L (98-107); Creatinine, Serum 0.68 mg/dL (0.55-1.02); EST Glomerular Filtration Rate 94 mL/min (>60); Est Glom Filt Rate - Afr Amer 114 mL/min (>60); Estimated Creatinine Clearance 90.42 ml/min; Globulin 2.6 g/dL (2.2-4.2); Glucose 76 mg/dL (74-106); Potassium 4.1 mmol/L (3.5-5.1); Protein, Total 4.3 g/dL (6.4-8.2); Sodium Level 129 mmol/L (136-145)
--- NOTE | 2021-05-19 07:35 | PCM.PN.HOSP ---
Subjective Subjective Had a brief episode of aphasia day prior. CT of the head was ordered stat negative for acute bleed. MRI with and without contrast subsequently ordered. Patient was also seen in consultation by GI. Currently undergoing prep for EGD and colonoscopy Objective Data Objective Data Vital Signs: Vital Signs Temp Pulse Resp BP Pulse Ox 97.9 F 74 17 94/70 97 05/19/21 04:55 05/19/21 04:55 05/19/21 04:55 05/19/21 04:55 05/19/21 04:55 Oxygen Delivery Method Room Air Weight: 62 kg Body Mass Index (BMI) 19.5 Intake & Output: Intake and Output for Last 24 Hours 05/17/21 05/18/21 05/19/21 23:59 23:59 23:59 Intake Total 792.5 / 792.5 253 / 1253 1200 / 1200 Output Total 0 / 125 425 / 975 550 / 550 Balance 792.5 / 667.5 -172 / 278 650 / 650 Lab / Micro Data Result Diagrams: 05/19/21 04:56 05/19/21 04:56 Labs: Laboratory Results - last 24 hr 05/18/21 06:54: Sodium 127 L, Potassium 4.7, Chloride 95 L, Carbon Dioxide 27.0, Anion Gap 5, BUN 28 H, Creatinine 0.68, Estim Creat Clear Calc 90.71, Est GFR (MDRD) Af Amer 116, Est GFR (MDRD) Non-Af 96, BUN/Creatinine Ratio 41.4 H, Glucose 65 L, Calcium 8.0 L, Total Bilirubin 0.10 L, AST 211 H, ALT 187 H, Alkaline Phosphatase 85, Total Protein 3.5 L, Albumin 1.3 L, Globulin 2.2, Albumin/Globulin Ratio 0.6 L 05/18/21 13:14: Sodium 127 L, Potassium 4.0, Chloride 93 L, Carbon Dioxide 27.0, Anion Gap 7, BUN 27 H, Creatinine 0.80, Estim Creat Clear Calc 77.10, Est GFR (MDRD) Af Amer 96, Est GFR (MDRD) Non-Af 79, BUN/Creatinine Ratio 33.9 H, Glucose 84, Calcium 8.5 05/18/21 13:14: Lactate Dehydrogenase 322 H, C-React Prot Ext Range 12.30 H 05/18/21 13:14: Total Creatine Kinase 281 H, TSH 5.51 H, Prolactin 9.2 05/18/21 17:21: POC Glucose 93 05/18/21 20:50: Ur Total Protein 24 Hr Cancelled, Urine Total Protein Cancelled, Urine Albumin Cancelled, U Opplp-6-Ktenxczi Cancelled, U Feimr-5-Hfgluqai Cancelled, U Beta Globulin Cancelled, U Gamma Globulin Cancelled, U PEP M-Gee Cancelled, U PEP M-Gee 24 Hr Cancelled, Urine Immunofixation Cancelled, Urine CHANO Interpret Cancelled, Ur Immunofix PEP Note Cancelled 05/18/21 20:50: CSF Myelin Basic Protein Cancelled 05/18/21 20:50: ESR 15 05/18/21 20:50: Cortisol 15.20 05/18/21 21:38: U Random Total Protein 6.2 05/18/21 23:26: Cortisol 38.20 H 05/19/21 04:56: WBC 3.8 L, RBC 3.14 L, Hgb 10.2 L, Hct 28.2 L, MCV 89.8, MCH 32.5 H, MCHC 36.2 H, RDW Std Deviation 46.5 H, RDW Coeff of Shalini 14.4, Plt Count 81 L, MPV 12.2 H, Immature Gran % (Auto) 0.300, Neut % (Auto) 88.1 H, Lymph % (Auto) 7.3 L, [place] % (Auto) 3.7, Eos % (Auto) 0.3, Baso % (Auto) 0.3, Absolute Neuts (auto) 3.4, Absolute Lymphs (auto) 0.28 L, Nucleated RBC % 0, Diff Path Review July05/19/21 04:56: Sodium 129 L, Potassium 4.1, Chloride 95 L, Carbon Dioxide 27.0, Anion Gap 7, BUN 27 H, Creatinine 0.68, Estim Creat Clear Calc 90.42, Est GFR (MDRD) Af Amer 114, Est GFR (MDRD) Non-Af 94, BUN/Creatinine Ratio 39.5 H, Glucose 76, Calcium 8.4 L, Magnesium 2.0, Total Bilirubin 0.20, Direct Bilirubin < 0.05, AST 240 H, ALT 232 H, Alkaline Phosphatase 104, Total Protein 4.3 L, Albumin 1.7 L, Globulin 2.6 Radiography Diagnostic Testing: Radiology Impression Brain CT 05/18/21 17:35 IMPRESSION: Negative head/brain CT without intravenous contrast. Individualized dose optimization techniques were used for this CT. at 1759 Reported and signed by: Christ Major MD Electronically Signed: Christ Major MD at 17:57 EST , Physical Exam Narrative GENERAL: cooperative HEENT: Atraumatic; EYES; Anicteric, Normal Conjunctiva NECK; supple, normal thyroid, RESPIRATORY: Diminished to auscultation CARDIOVASCULAR: Regular S1 S2, GI: soft, normoactive bowel sounds, : No Renal angle tenderness; EXTREMITIES: Bipedal edema, no clubbing, MUSCULOSKELETAL: no muscle wasting NEURO: Awake; no lateralizing signs. SKIN: No Rash PSYCH; Flat affect Assessment & Plan Assessment/Plan (1) Hyponatremia: (2) Hypothyroid: QUALIFIERS: Hypothyroidism type: unspecified Qualified Code(s): E03.9 - Hypothyroidism, unspecified (3) Severe protein-calorie malnutrition: (4) Contact dermatitis: QUALIFIERS: Contact dermatitis trigger: detergents Contact dermatitis type: irritant Qualified Code(s): L24.0 - Irritant contact dermatitis due to detergents (5) Debility: (6) COVID-19 vaccination declined: (7) Polypharmacy: PLAN: Patient is a 56-year-old lady admitted with increasing fatigue generalized weakness and confusion. Patient was found to be hyponatremic with sodium level of 121 on admission. Admitted to monitored bed for subsequent evaluation and management 1. Hyponatremia ?Multifactorial including excessive free water intake, SIADH as well as low salt intake. Patient SIADH confirmed with urine studies. Patient placed on fluid restriction. Also did add sodium tablets. Subsequent monitoring with serial BMPs ordered ?05/19/2021 patient sodium still remains low at 129. 2. Bipedal edema ?Secondary to severe hypoalbuminemia 3. Moderate protein calorie malnutrition ?As evidenced by decreased energy level, hypoalbuminemia as well as low BMI of 19. Consult placed to dietitian 4. Hypothyroidism ?Patient was on [place] Thyroid prior to being admitted. TSH was found to be elevated at 9.9. Patient [place] Thyroid discontinued started on levothyroxine 5. Elevated transaminases ?Etiology not clear, acute hepatitis panel ordered results pending. Gallbladder ultrasound obtained demonstrated no suspicious solid organ abnormality; patient was seen in consultation by GI recommendation is for patient to undergo subsequent evaluation to rule out protein-losing enteropathy with stool for alpha-1 antitrypsin. Patient also to undergo EGD and colonoscopy 6. Physical deconditioning - Requested for PT OT eval and social science teacher to assist with discharge planning 7. Thrombocytopenia ?[place] to be secondary to chronic liver disease 9.? TIA ?Patient has experienced brief episodes of aphasia and confusion. CT of the head obtained was negative for bleed. Patient to undergo subsequent evaluation with MRI with and without contrast of the brain 10. DVT prophylaxis ?Enoxaparin Charges/Coding Visit Charges Inpatient E&M: 35893 Subs Hosp L3
--- NOTE | 2021-05-19 08:00 | MRI_ITS ---
EXAM: MR Head Without and With Intravenous Contrast CLINICAL INDICATION: 56 years old, Female; confusion/aphasia TECHNIQUE: Multiplanar and multisequence MR images of the brain were obtained without and with intravenous contrast. This report was created using [employer] report [employer] technology. CONTRAST: IV 12mL Dotarem COMPARISON: None. FINDINGS: Brain and extra-axial spaces: Unremarkable. No intra- or extra-axial hemorrhage. No intracranial mass or mass effect. Posterior fossa structures are unremarkable. Ventricles are appropriate for age. No hydrocephalus. Basal cisterns are patent. Diffusion-weighted imaging is negative for acute or subacute infarct. Sella: Unremarkable. Normal sella turcica, pituitary gland, infundibular stalk, optic chiasm and hypothalamus. Auditory system: Unremarkable. The internal auditory canals are patent. Bones/joints: Unremarkable. No discrete lytic or blastic abnormalities. Sinuses: Unremarkable as visualized. Clear. Mastoid air cells: Unremarkable as visualized. Clear. Orbits: Unremarkable as visualized. Both globes, extraocular muscles, optic nerves and retrobulbar fat appear unremarkable. Vasculature: Unremarkable as visualized. Normal flow voids in the major intracranial circulation. MRI/Brain W/WO Contrast IMPRESSION: No evidence of acute or subacute infarct. Electronically Signed: Otis Barr MD at 2:34 EST ,
[2021-05-19] MEDS: Menthol/Lanolin/Calamine/Znox 113 GM Tube 1 APPLIC TOPICAL ×2 (12:23→21:01)
[2021-05-19] MEDS: Sodium Chloride 1 GM Tablet PO ×2 (12:23→21:00)
[2021-05-19 14:13] LABS: Hep C Antibodies <0.1 s/co ratio (0.0-0.9)
--- NOTE | 2021-05-19 14:52 | NURSING ---
report called to adin in ac
[2021-05-19 15:21] LABS: Pathologist Review Reviewed
--- NOTE | 2021-05-19 15:45 | EGD_PTH ---
PATIENT: ANDREIA GALDAMEZ LOC: PCU U#:[id number] AGE/SX: 56/F ROOM: [facility] RE05/16/[address]: Dr. Rolando Garcia MD : 1965 BED: 1 DIS: 05/20/2021 SPEC #: [id number] RECD: 05/19/21 17:54 STATUS: JUAN DANIEL RE #: [id number] JULIAN: 05/19/21 15:[address]: Hero Lawrence DEPT: SURGICAL PATHOLOGY RECD BY: Sarai Grijalva ENTERED: 05/20/21 09:08 SP TYPE: EGD BIOPSY OTHR DR: MD Dr. Rolando García MD Dr. Eric Smith, MD Tissues: A - Duodenum, NOS B - Gastric mucous membrane C - Gastric mucous membrane Procedures: Surgery Specimen Level IV Comments: @ Ordering doctor for SUIV edited from to @ by RGOPAULINA at 05/20/21 1214 @ Submitting doctor edited from to @ by RGOOD at 05/20/21 1214 HEADER OPERATION: EGD with biopsy, colonoscopy (MAC) PRE-OP DIAGNOSIS: Thrombocytopenia, severe protein-calorie malnutrition, elevated liver enzymes TISSUE SUBMITTED: A ? Duodenum biopsy, B ? Gastric body biopsy, C ? Antrum biopsy for H. pylori and path MICROSCOPIC DIAGNOSIS A. Duodenum, biopsy: Acute duodenitis with focal mucosal ulceration. B. Gastric body, biopsy: Mild chronic gastritis. C. Gastric antrum, biopsy: Mild chronic gastritis. See comment. AM:sarina 05/21/2021 COMMENT C. The results of immunohistochemistry for Helicobacter pylori will be reported separately ([id number]). MICROSCOPIC DESCRIPTION Slides are reviewed. GROSS DESCRIPTION A - Received in fixative is one container labeled with the patient's name and designated duodenum biopsy. The specimen consists of two multiple fragments of light grover soft tissue that in aggregate measure 1 x 0.3 x 0.1 cm. The specimen is totally submitted in one cassette. B - Received in fixative is one container labeled with the patient's name and designated gastric body biopsy. The specimen consists of multiple irregular fragments of light grover soft tissue that in aggregate measure 1 x 0.6 x 0.1 cm. The specimen is totally submitted in one cassette. C - Received in fixative is one container labeled with the patient's name and designated antrum biopsy. The specimen consists of one irregular fragment of light grover soft tissue that measures 0.7 x 0.2 x 0.1 cm. The specimen is totally submitted in one cassette. / AM:sarina 05/20/2021 TC:2 CPT: 24852 x3
--- NOTE | 2021-05-19 15:45 | IMM_PTH ---
PATIENT: ANDREIA GALDAMEZ LOC: [facility] U#:[id number] AGE/SX: 56/F ROOM: [facility] RE05/16/[address]: Dr. Rolando Garcia MD : 1965 BED: 1 DIS: 05/20/2021 SPEC #: [id number] RECD: 05/20/21 12:13 STATUS: JUAN DANIEL REQ #: [id number] JULIAN: 05/19/21 15:[address]: Ra Melindahsaan DEPT: IMMUNOHISTOCHEMISTRY RECD BY: Thuy Marquis ENTERED: 05/20/21 12:14 SP TYPE: IMMUNO OTHR DR: MD Dr. Rolando García MD Dr. Eric Smith, MD Tissues: A - Stomach, NOS Procedures: H Pylori (initial) PHYSICIAN & INSTITUTION [place] [id number] SPECIMEN INFORMATION: Tissue Source: C ? Antrum biopsy Clinical Info: Thrombocytopenia, severe protein-calorie malnutrition, elevated liver enzymes Specimen Number: [id number] C CPT code: 14847 METHODOLOGY: Deparaffinized sections of prefer/formalin-fixed tissue or PAP/DQ stained slides are incubated with monoclonal/polyclonal antibodies/oligonucleotide probes. Localization is made via biotin free immunoperoxidase method. Appropriate controls are performed and reacted as expected. Results on target cell population are indicated in the following table: RESULTS: ANTIBODY / CLONE RESULT Block C H Pylori (polyclonal) negative These tests were developed and their performance characteristics determined by [facility]. They may not have been cleared or approved by the U.S. Food and Drug Administration. The FDA has determined that such clearance or approval is not necessary. INTERPRETATION: C. Antrum biopsy: Negative for Helicobacter pylori organisms. AM:sarina 05/21/2021
[2021-05-19 16:06] LABS: Troponin-I HS 17 pg/mL (3.0-54.0)
--- NOTE | 2021-05-19 17:22 | OP.COLON_ITS ---
Patient Name: Haley Glez Procedure Date: 05/19/2021 4:49 PM Date of : 1965 Age: 56 Procedure: Colonoscopy Indications: Iron deficiency anemia, Change in bowel habits, Change in stool caliber, Chronic idiopathic constipation, Failure to thrive, Weight loss Providers: Hero Lawrence DO Referring MD: Priscilla Ruelas Md Medicines: See the Anesthesia note for documentation of the administered medications Patient Profile: This is a 56 year old female. Refer to note in patient chart for documentation of history and physical. Last Colonoscopy: 3 years ago. Complications: No immediate complications. Procedure: Pre-Anesthesia Assessment: - Prior to the procedure, a History and Physical was performed, and patient medications and allergies were reviewed. The patient is competent. The risks and benefits of the procedure and the sedation options and risks were discussed with the patient. All questions were answered and informed consent was obtained. Patient identification and proposed procedure were verified by the physician in the pre-procedure area. Mental Status Examination: alert and oriented. Airway Examination: normal oropharyngeal airway and neck mobility. Respiratory Examination: clear to auscultation. CV Examination: normal. Prophylactic Antibiotics: The patient does not require prophylactic antibiotics. Prior Anticoagulants: The patient has taken no previous anticoagulant or antiplatelet agents. ASA Grade Assessment: II - A patient with mild systemic disease. After reviewing the risks and benefits, the patient was deemed in satisfactory condition to undergo the procedure. The anesthesia plan was to use moderate sedation / analgesia (conscious sedation). Immediately prior to administration of medications, the patient was re-assessed for adequacy to receive sedatives. The heart rate, respiratory rate, oxygen saturations, blood pressure, adequacy of pulmonary ventilation, and response to care were monitored throughout the procedure. The physical status of the patient was re-assessed after the procedure. After I obtained informed consent, the scope was passed under direct vision. Throughout the procedure, the patient's blood pressure, pulse, and oxygen saturations were monitored continuously. The colonoscope was introduced through the anus and advanced to the cecum, identified by appendiceal orifice and ileocecal valve. The colonoscopy was performed without difficulty. The patient tolerated the procedure well. The quality of the bowel preparation was poor. Moderate Sedation: Moderate (conscious) sedation was administered by the endoscopy nurse and supervised by the endoscopist. The patient's oxygen saturation, heart rate, blood pressure and response to care were monitored. Total physician intraservice time was 15 minutes. Scope In: 5:00:00 PM Scope Withdrawal Time 0 hours 7 minutes 24 seconds Scope Out: 5:15:42 PM Total Procedure Duration Time 0 hours 15 minutes 42 seconds Findings: Extensive amounts of stool was found in the entire colon, precluding visualization. Lavage of the area was performed using a large amount of sterile water, resulting in incomplete clearance with continued poor visualization. Impression: -50% of the colon was examined due to a large amount of stool in the colon. - Stool in the entire examined colon. - No specimens collected. Recommendation: - Repeat colonoscopy in 3 months. - Continue present medications. Procedure Code(s): --- Professional --- 76727, Colonoscopy, flexible; diagnostic, including collection of specimen(s) by brushing or washing, when performed (separate procedure) 83826, 59, Moderate sedation services provided by the same physician or other qualified health managed care manager performing the diagnostic or therapeutic service that the sedation supports, requiring the presence of an independent trained observer to assist in the monitoring of the patient's level of consciousness and physiological status; initial 15 minutes of intraservice time, patient age 5 years or older CPT copyright 2017 [employer]. All rights reserved. The codes documented in this report are preliminary and upon morgue technician review may be revised to meet current compliance requirements. Hero Lawrence DO 05/19/2021 5:21:47 PM This report has been signed electronically. Number of Addenda: 1 Note Initiated On: 05/19/2021 4:49 PM Addendum Number: 1 Addendum Date: 12/14/2021 6:39:48 AM MAC was used for sedation during this procedure. Hero Lawrence DO 12/14/2021 6:39:57 AM This report has been signed electronically.
--- NOTE | 2021-05-19 17:23 | OP.CCLET_ITS ---
12/14/2021 Loi De La Rosa [address] [place] [address] Re : Colonoscopy procedure for Haley Glez Dear Dr. De La Rosa This procedure was performed on Wednesday, May 19, 2021. My impressions and recommendations are as follows: Impressions : -50% of the colon was examined due to a large amount of stool in the colon. - Stool in the entire examined colon. - No specimens collected. Recommendations : - Repeat colonoscopy in 3 months. - Continue present medications. My findings are described in the full procedure note, which is enclosed. If I can be of further assistance, please feel free to contact me at . Sincerely, Hero Friend, 05/19/2021 5:21:47 PM This report has been signed electronically.
--- NOTE | 2021-05-19 17:28 | OP.CCLET_ITS ---
12/14/2021 Loi De La Rosa [address] [place] [address] Re : Upper GI endoscopy procedure for Haley Glez Dear Dr. De La Rosa This procedure was performed on Wednesday, May 19, 2021. My impressions and recommendations are as follows: Impressions : - Normal esophagus. - Erythematous mucosa in the gastric body. Biopsied. - Erythematous duodenopathy. Biopsied. Recommendations : - [facility]. - Resume previous diet. - Continue present medications. - Await pathology results. My findings are described in the full procedure note, which is enclosed. If I can be of further assistance, please feel free to contact me at . Sincerely, Hero Lawrence, 05/19/2021 5:27:18 PM This report has been signed electronically.
--- NOTE | 2021-05-19 17:28 | OP.EGD_ITS ---
Patient Name: Haley Glez Procedure Date: 05/19/2021 5:22 PM Date of : 1965 Age: 56 Procedure: Upper GI endoscopy Indications: Epigastric abdominal pain Providers: Hero Lawrence DO Referring MD: Priscilla Ruelas Md Medicines: See the Anesthesia note for documentation of the administered medications Patient Profile: This is a 56 year old female. Refer to note in patient chart for documentation of history and physical. Patient has symptoms of chronic dyspepsia and chronic nausea. Complications: No immediate complications. Procedure: Pre-Anesthesia Assessment: - Prior to the procedure, a History and Physical was performed, and patient medications and allergies were reviewed. The patient is competent. The risks and benefits of the procedure and the sedation options and risks were discussed with the patient. All questions were answered and informed consent was obtained. Patient identification and proposed procedure were verified by the physician in the pre-procedure area. Mental Status Examination: alert and oriented. Airway Examination: normal oropharyngeal airway and neck mobility. Respiratory Examination: clear to auscultation. CV Examination: normal. Prophylactic Antibiotics: The patient does not require prophylactic antibiotics. Prior Anticoagulants: The patient has taken no previous anticoagulant or antiplatelet agents. ASA Grade Assessment: II - A patient with mild systemic disease. After reviewing the risks and benefits, the patient was deemed in satisfactory condition to undergo the procedure. The anesthesia plan was to use moderate sedation / analgesia (conscious sedation). Immediately prior to administration of medications, the patient was re-assessed for adequacy to receive sedatives. The heart rate, respiratory rate, oxygen saturations, blood pressure, adequacy of pulmonary ventilation, and response to care were monitored throughout the procedure. The physical status of the patient was re-assessed after the procedure. After obtaining informed consent, the endoscope was passed under direct vision. Throughout the procedure, the patient's blood pressure, pulse, and oxygen saturations were monitored continuously. The upper GI endoscopy was accomplished without difficulty. The patient tolerated the procedure well. Moderate Sedation: Moderate (conscious) sedation was administered by the endoscopy nurse and supervised by the endoscopist. The patient's oxygen saturation, heart rate, blood pressure and response to care were monitored. Total physician intraservice time was 15 minutes. Findings: The examined esophagus was normal. Striped mildly erythematous mucosa without bleeding was found in the gastric body. Biopsies were taken with a cold forceps for histology. Verification of patient identification for the specimen was done. Estimated blood loss was minimal. Patchy mildly erythematous mucosa without active bleeding and with no stigmata of bleeding was found in the duodenal bulb and in the first portion of the duodenum. Biopsies were taken with a cold forceps for histology. Verification of patient identification for the specimen was done. Estimated blood loss was minimal. Impression: - Normal esophagus. - Erythematous mucosa in the gastric body. Biopsied. - Erythematous duodenopathy. Biopsied. Recommendation: - [facility]. - Resume previous diet. - Continue present medications. - Await pathology results. Procedure Code(s): --- Professional --- 06561, Esophagoscopy, flexible, transoral; with biopsy, single or multiple 35039, 59, Moderate sedation services provided by the same physician or other qualified health assistant child care teacher performing the diagnostic or therapeutic service that the sedation supports, requiring the presence of an independent trained observer to assist in the monitoring of the patient's level of consciousness and physiological status; initial 15 minutes of intraservice time, patient age 5 years or older CPT copyright 2017 [employer]. All rights reserved. The codes documented in this report are preliminary and upon industrial training specialist review may be revised to meet current compliance requirements. Hero Lawrence DO 05/19/2021 5:27:18 PM This report has been signed electronically. Number of Addenda: 1 Note Initiated On: 05/19/2021 5:22 PM Addendum Number: 1 Addendum Date: 12/14/2021 6:39:33 AM MAC was used for sedation during this procedure. Hero Lawrence DO 12/14/2021 6:39:41 AM This report has been signed electronically.
[2021-05-19] MEDS: Enoxaparin 40 MG/0.4 ML Syringe SC (20:57)
[2021-05-20] VITALS (10 sets, daily range): BP systolic 100–110; BP diastolic 67–73; PULSE 52–83; RESP 14–16; TEMP 36.6–37.2; O2SAT 96–100; BMI 19.5
[2021-05-20] MEDS: Levothyroxine 75 MCG Tablet PO (05:17)
[2021-05-20 07:29] LABS: AST(SGOT) 177 U/L (15-37); Alanine Aminotransfer ALT/SGPT 193 U/L (13-56); Albumin, Serum 1.5 g/dL (3.2-5.0); Alkaline Phosphatase 103 U/L (45-117); Anion Gap 3 (5-15); BUN 15 mg/dL (7-18); BUN/Creat Ratio 29.9 RATIO (10-20); Bilirubin, Direct < 0.05 mg/dL (0.00-0.30); Calcium,Total 8.4 mg/dL (8.5-10.1); Chloride 95 mmol/L (98-107); EST Glomerular Filtration Rate 135 mL/min (>60); Est Glom Filt Rate - Afr Amer 163 mL/min (>60); Estimated Creatinine Clearance 124.36 ml/min; Globulin 2.4 g/dL (2.2-4.2); Glucose 74 mg/dL (74-106); Potassium 3.5 mmol/L (3.5-5.1); Protein, Total 3.9 g/dL (6.4-8.2); Sodium Level 131 mmol/L (136-145)
--- NOTE | 2021-05-20 07:38 | PN.HOSP_ITS ---
Subjective Subjective Seen overall symptoms continue to improve. Patient underwent EGD and colonoscopy today prior results reviewed Objective Data Objective Data Vital Signs: Vital Signs Temp Pulse Resp BP Pulse Ox 98.1 F 58 L 14 110/73 98 05/20/21 04:00 05/20/21 04:00 05/20/21 04:00 05/20/21 04:00 05/20/21 04:00 Oxygen Delivery Method Room Air Weight: 62.7 kg Body Mass Index (BMI) 19.5 Intake & Output: Intake and Output for Last 24 Hours 05/18/21 05/19/21 05/20/21 23:59 23:59 23:59 Intake Total 253 / 1253 2911 / 3151 240 / 240 Output Total 425 / 975 550 / 550 Balance -172 / 278 2361 / 2601 240 / 240 Lab / Micro Data Result Diagrams: 05/19/21 04:56 05/20/21 06:16 Labs: Laboratory Results - last 24 hr 05/17/21 06:06: Hepatitis A IgM Ab Negative, Hep Bs Antigen Negative, Hep B Core IgM Ab Negative, Hepatitis C Ab (EIA) <0.1 05/19/21 04:56: Diff Path Review Reviewed 05/19/21 04:56: Troponin I High Sens 17 05/20/21 06:16: Sodium 131 L, Potassium 3.5, Chloride 95 L, Carbon Dioxide 33.0 H, Anion Gap 3 L, BUN 15, Creatinine 0.50 L, Estim Creat Clear Calc 124.36, Est GFR (MDRD) Af Amer 163, Est GFR (MDRD) Non-Af 135, BUN/Creatinine Ratio 29.9 H, Glucose 74, Calcium 8.4 L, Magnesium 2.0, Total Bilirubin 0.20, Direct Bilirubin < 0.05, AST 177 H, ALT 193 H, Alkaline Phosphatase 103, Total Protein 3.9 L, Albumin 1.5 L, Globulin 2.4 Micro: Microbiology 05/19/21 14:25 Nasal Secretion SARS-CoV-2 Antigen (Rapid) - Final Radiography Diagnostic Testing: Radiology Impression Brain MRI 05/19/21 08:00 IMPRESSION: No evidence of acute or subacute infarct. Electronically Signed: Otis Barr MD at 2:34 EST , Physical Exam Narrative GENERAL: cooperative HEENT: Atraumatic; EYES; Anicteric, Normal Conjunctiva NECK; supple, normal thyroid, RESPIRATORY: Diminished to auscultation CARDIOVASCULAR: Regular S1 S2, GI: soft, normoactive bowel sounds, : No Renal angle tenderness; EXTREMITIES: Bipedal edema, no clubbing, MUSCULOSKELETAL: no muscle wasting NEURO: Awake; no lateralizing signs. SKIN: No Rash PSYCH; Flat affect Assessment & Plan Assessment/Plan (1) Hyponatremia: (2) Hypothyroid: QUALIFIERS: Hypothyroidism type: unspecified Qualified Code(s): E03.9 - Hypothyroidism, unspecified (3) Severe protein-calorie malnutrition: (4) Contact dermatitis: QUALIFIERS: Contact dermatitis trigger: detergents Contact dermatitis type: irritant Qualified Code(s): L24.0 - Irritant contact dermatitis due to detergents (5) Debility: (6) COVID-19 vaccination declined: (7) Polypharmacy: PLAN: Patient is a 56-year-old lady admitted with increasing fatigue generalized weakness and confusion. Patient was found to be hyponatremic with sodium level of 121 on admission. Admitted to monitored bed for subsequent evaluation and management 1. Hyponatremia ?Multifactorial including excessive free water intake, SIADH as well as low salt intake. Patient SIADH confirmed with urine studies. Patient placed on fluid restriction. Also did add sodium tablets. Subsequent monitoring with serial BMPs ordered ?05/19/2021 patient sodium still remains low at 129. 2. Bipedal edema ?Secondary to severe hypoalbuminemia 3. Moderate protein calorie malnutrition ?As evidenced by decreased energy level, hypoalbuminemia as well as low BMI of 19. Consult placed to dietitian 4. Hypothyroidism ?Patient was on [place] Thyroid prior to being admitted. TSH was found to be elevated at 9.9. Patient [place] Thyroid discontinued started on levothyroxine 5. Elevated transaminases ?Etiology not clear, acute hepatitis panel ordered results pending. Gallbladder ultrasound obtained demonstrated no suspicious solid organ abnormality; patient was seen in consultation by GI recommendation is for patient to undergo subsequent evaluation to rule out protein-losing enteropathy with stool for alpha-1 antitrypsin. Patient also to undergo EGD and colonoscopy Upper GI endoscopy procedure for Haley Glez Dear Dr. De La Rosa This procedure was performed on Wednesday, May 19, 2021. My impressions and recommendations are as follows: Impressions : - Normal esophagus. - Erythematous mucosa in the gastric body. Biopsied. - Erythematous duodenopathy. Biopsied. Recommendations : - [facility]. - Resume previous diet. - Continue present medications. - Await pathology results. Colonoscopy Impressions : -50% of the colon was examined due to a large amount of stool in the colon. - Stool in the entire examined colon. - No specimens collected. Recommendations : - Repeat colonoscopy in 3 months. - Continue present medications 6. Physical deconditioning - Requested for PT OT eval and social sciences department chair to assist with discharge planning 7. Thrombocytopenia ?[place] to be secondary to chronic liver disease 9.? TIA ?Patient has experienced brief episodes of aphasia and confusion. CT of the head obtained was negative for bleed. Patient to undergo subsequent evaluation with MRI with and without contrast of the brain 10. DVT prophylaxis ?Enoxaparin Charges/Coding Visit Charges Inpatient E&M: 68597 Subs Hosp L2
[2021-05-20] MEDS: Sodium Chloride 1 GM Tablet PO (09:53)
[2021-05-20] MEDS: Menthol/Lanolin/Calamine/Znox 113 GM Tube 1 APPLIC TOPICAL (09:53)
--- NOTE | 2021-05-20 11:12 | DS.PCM_ITS ---
Providers Date of Admission: 05/16/21 Primary Care Physician: Dr. Loi De La Rosa MD Consultations 05/16/21 21:30 Consult: Gastroenterology Routine Consulting Provider: [facility] Reason for Consult: Elevated LFTs EMERGENT Consult: No MD Notified: Yes Date Notified: 05/17/21 Time Notified: 07:28 Method of Notification: Text Reason For Visit: ACUTE HYPOATREMIA Diagnosis Discharge Diagnosis (1) Hyponatremia: Status: Acute Code(s): E87.1 - Hypo-osmolality and hyponatremia (2) Hypothyroid: Status: Acute Code(s): E03.9 - Hypothyroidism, unspecified Qualifiers: Hypothyroidism type: unspecified Qualified Code(s): E03.9 - Hypothyroidism, unspecified (3) Severe protein-calorie malnutrition: Status: Acute Code(s): E43 - Unspecified severe protein-calorie malnutrition (4) Contact dermatitis: Status: Acute Code(s): L25.9 - Unspecified contact dermatitis, unspecified cause Qualifiers: Contact dermatitis type: irritant Contact dermatitis trigger: detergents Qualified Code(s): L24.0 - Irritant contact dermatitis due to detergents (5) Debility: Status: Acute Code(s): R53.81 - Other malaise (6) COVID-19 vaccination declined: Status: Acute Code(s): Z28.21 - Immunization not carried out because of patient refusal (7) Polypharmacy: Status: Acute Code(s): Z79.899 - Other terminal carman (current) drug therapy Medications at Discharge Home Medications furosemide [Lasix] 20 mg PO DAILY #30 tab 05/20/21 levothyroxine 75 mcg PO DAILY@0600 #30 tab 05/20/21 potassium chloride 20 meq PO BID #60 tab 05/20/21 sodium chloride 1 g PO BID #60 tab 05/20/21 Hospital Course Operations None Procedures Colonoscopy and EGD Summary of Care Provided Minutes Spent on Discharge: 35 Hospital Course: Patient is a 56-year-old lady admitted with increasing fatigue generalized weakness and confusion. Patient was found to be hyponatremic with sodium level of 121 on admission. Admitted to monitored bed for subsequent evaluation and management 1. Hyponatremia ?Multifactorial including excessive free water intake, SIADH as well as low salt intake. Patient SIADH confirmed with urine studies. Patient placed on fluid restriction. Also did add sodium tablets. Subsequent monitoring with serial BMPs ordered ?05/19/2021 patient sodium still remains low at 129. ?05/20/2021 sodium level 131. Patient to follow-up with her primary care physi evymary De La Rosa on 05/25/2021 for repeat CBC BMP and LFTs 2. Bipedal edema ?Secondary to severe hypoalbuminemia 3. Moderate protein calorie malnutrition ?As evidenced by decreased energy level, hypoalbuminemia as well as low BMI of 19. Consult placed to dietitian 4. Hypothyroidism ?Patient was on [place] Thyroid prior to being admitted. TSH was found to be elevated at 9.9. Patient [place] Thyroid discontinued started on levothyroxine 5. Elevated transaminases ?Etiology not clear, acute hepatitis panel ordered results pending. Gallbladder ultrasound obtained demonstrated no suspicious solid organ abnormality; patient was seen in consultation by GI recommendation is for patient to undergo subsequent evaluation to rule out protein-losing enteropathy with stool for alpha-1 antitrypsin. Patient also to undergo EGD and colonoscopy Upper GI endoscopy Impressions : - Normal esophagus. - Erythematous mucosa in the gastric body. Biopsied. - Erythematous duodenopathy. Biopsied. Recommendations : - [facility]. - Resume previous diet. - Continue present medications. - Await pathology results. Colonoscopy Impressions : -50% of the colon was examined due to a large amount of stool in the colon. - Stool in the entire examined colon. - No specimens collected. Recommendations : - Repeat colonoscopy in 3 months. - Continue present medications Patient to follow-up with Dr. Lawrence within 2 weeks for follow-up of her impaired liver function tests as well as biopsy results 6. Physical deconditioning - Requested for PT OT eval and licensed master social worker to assist with discharge planning 7. Thrombocytopenia ?[place] to be secondary to chronic liver disease 9.? TIA ?Patient has experienced brief episodes of aphasia and confusion. CT of the head obtained was negative for bleed. Patient to undergo subsequent evaluation with MRI with and without contrast of the brain ?Imaging studies including CT and MRI came back negative 10. DVT prophylaxis ?Enoxaparin Physical Exam Narrative GENERAL: cooperative HEENT: Atraumatic; EYES; Anicteric, Normal Conjunctiva NECK; supple, normal thyroid, RESPIRATORY: Diminished to auscultation CARDIOVASCULAR: Regular S1 S2, GI: soft, normoactive bowel sounds, : No Renal angle tenderness; EXTREMITIES: Bipedal edema, no clubbing, MUSCULOSKELETAL: no muscle wasting NEURO: Awake; no lateralizing signs. SKIN: No Rash PSYCH; Flat affect Medical Records Data Medical Nutrition Assessment Dietitian: Malnutrition Criteria Met Start: 05/20/21 10:50 Freq: Status: Active Protocol: Document 05/20/21 10:50 AG (Rec: 05/20/21 10:50 AG [id number]) Nutrition Malnutrition Evidence of Malnutrition Exists Yes Malnutrition (moderate): Chronic Evidenced By Suboptimal Energy Intake ( Moderate),Physical Changes ( Mild) Intake Problem None at this time Etiology - Signs/Symptoms - Status Inactive Problem Clinical Problem Chronic Disease or Condition Related Malnutrition Etiology moderate, chronic malnutrition r/t inadequate energy intake Signs/Symptoms as evidenced by estimated PO intake meeting <75% of estimated energy needs >3 months; mild muscle wasting/ fat loss noted in clavicles, acromion, and scapula areas; usual BMI 17.2 (UBW 120#) Status Active Problem Recommendation Dietitian Recommendations/Changes recommend regular diet w/ fluid restriction as indicated . Weight / BMI Weight Weight: 62.7 kg Body Mass Index (BMI) 19.5 ABG / Lab / Microbiology Data Result Diagrams: 05/19/21 04:56 05/20/21 06:16 Laboratory: Laboratory Results - last 24 hr 05/17/21 06:06: Hepatitis A IgM Ab Negative, Hep Bs Antigen Negative, Hep B Core IgM Ab Negative, Hepatitis C Ab (EIA) <0.1 05/19/21 04:56: Diff Path Review Reviewed 05/19/21 04:56: Troponin I High Sens 17 05/20/21 06:16: Sodium 131 L, Potassium 3.5, Chloride 95 L, Carbon Dioxide 33.0 H, Anion Gap 3 L, BUN 15, Creatinine 0.50 L, Estim Creat Clear Calc 124.36, Est GFR (MDRD) Af Amer 163, Est GFR (MDRD) Non-Af 135, BUN/Creatinine Ratio 29.9 H, Glucose 74, Calcium 8.4 L, Magnesium 2.0, Total Bilirubin 0.20, Direct Bilirubin < 0.05, AST 177 H, ALT 193 H, Alkaline Phosphatase 103, Total Protein 3.9 L, Albumin 1.5 L, Globulin 2.4 Microbiology: Microbiology 05/19/21 14:25 Nasal Secretion SARS-CoV-2 Antigen (Rapid) - Final Radiography Diagnostic Testing: Radiology Impression Brain MRI 05/19/21 08:00 IMPRESSION: No evidence of acute or subacute infarct. Electronically Signed: Otis Barr MD at 2:34 EST , D/C Instructions Discharge Diet: No restrictions Discharge Activity: Return to Normal Activity Call your doctor if you observe: Fever of 101 or Higher, Shortness of breath, Fainting spells and Chest pain Meaningful Use Info Meaningful Use Diagnoses (Choose all that apply): None applicable Discharge Plan Admission Admit Date/Time: 05/16/21 19:55 Attending Provider: Rolando Garcia Primary Care Provider: Loi De La Rosa Discharge Orders/Prescriptions Prescriptions: New sodium chloride 1 gram Tablet 1 g PO BID Qty: 60 RF: 0 levothyroxine 75 mcg Tablet 75 mcg PO DAILY@0600 Qty: 30 RF: 0 potassium chloride 20 mEq tablet extended release 20 meq PO BID Qty: 60 RF: 0 furosemide [Lasix] 20 mg tablet 20 mg PO DAILY Qty: 30 RF: 0 Discontinued thyroid (pork) [[place] Thyroid] 15 mg tablet 22.5 mg PO MOWEFR RF: 0 thyroid (pork) [[place] Thyroid] 15 mg tablet 15 mg PO SUTUTHSA RF: 0 Referrals / Follow Up: Loi De La Rosa MD [Primary Care Provider] - 05/25/21 (For repeat BMP, liver function test, CBC with differential on 05/25/2021) FriendHero DO [STAFF PHYSICIAN] - Within 2 Weeks Disposition Disposition (needs filled in before D/C Order can be placed): Home, Self Care Charges/Coding Visit Charges Inpatient E&M: 26145 Disch Hosp
--- NOTE | 2021-05-20 11:28 | CASEMGMT ---
Pt ambulated 400ft CGA yesterday with therapy and this RN CM to room to discuss d/c plan with pt/sister. Per pt/sister, no concerns with going home at discharge and state no need for any further resources. SStaten RN CM
[2021-05-20 12:09] LABS: PROEL- A/G Ratio 1.1 (0.7-1.7); PROEL- Alpha-1 Globulin 0.4 g/dL (0.0-0.4); PROEL- Alpha-2 Globulin 0.6 g/dL (0.4-1.0); PROEL- Beta Globulin 0.7 g/dL (0.7-1.3); PROEL- Gamma Globulin 0.2 g/dL (0.4-1.8); PROEL- Globulin, Total 1.9 g/dL (2.2-3.9); PROEL- TOTAL PROTEIN 3.9 g/dL (6.0-8.5)
[2021-05-20 16:11] LABS: Anti-Centromere B Ab <0.2 AI (0.0-0.9); Anti-Chromatin <0.2 AI (0.0-0.9); Anti-Jo <0.2 AI (0.0-0.9); Anti-Scleroderma-70 AB <0.2 AI (0.0-0.9); RNP Ab <0.2 AI (0.0-0.9); SJOGREN'S Anti-SS-A test < 0.2 AI (0.0-0.9); SJOGREN'S Anti-SS-B test < 0.2 AI (0.0-0.9); Smith Ab <0.2 AI (0.0-0.9)
[2021-05-20 17:06] LABS: Anti-Mitochondrial AB <20.0 Units (0.0-20.0); Anti-Smooth Muscle ABS 1 Units (0-19)
[2021-05-20 18:13] LABS: Anti-dsDNA Ab <1 IU/mL (0-9)
[2021-05-23 17:30] LABS: Immunoglobulin A 20 mg/dL (87-352); Immunoglobulin E 30 IU/mL (6-495); Immunoglobulin G 129 mg/dL (586-1602); Immunoglobulin M 12 mg/dL (26-217)
== END 2021-05-20 13:16 | disposition home or self-care (01) | DRG 426 ==
LOC: ED 19:44 → PCU 20:39
PROVIDERS: Anesthesiology; Internal Medicine Gastroenterology; Admitting Provider Internal Medicine; Emergency Provider Emergency Medicine; PCP Family Medicine; Referring Provider Internal Medicine; Visit Provider Internal Medicine
PROC: 0DJD8ZZ Inspection of Lower Intestinal Tract, Via Natural or Artificial Opening Endoscopic (ICD-10-PCS; CPT 45378; principal; 2021-05-19 15:40)
DX: E22.2 Syndrome of inappropriate secretion of antidiuretic hormone (principal); G93.41 Metabolic encephalopathy; E43 Unspecified severe protein-calorie malnutrition; D69.6 Thrombocytopenia, unspecified; E88.09 Other disorders of plasma-protein metabolism, not elsewhere classified; R47.01 Aphasia; R62.7 Adult failure to thrive; E03.9 Hypothyroidism, unspecified; L25.9 Unspecified contact dermatitis, unspecified cause; D50.9 Iron deficiency anemia, unspecified; K76.9 Liver disease, unspecified; R41.0 Disorientation, unspecified; F42.9 Obsessive-compulsive disorder, unspecified; Z79.890 Hormone replacement therapy; Z79.899 Other long term (current) drug therapy; Z68.1 Body mass index [BMI] 19.9 or less, adult
CPT/HCPCS: 36415; 70450; 70553; 71045; 80048; 80053; 80074; 80076; 81001; 82533; 82550; 82784; 82785; 82962; 83001; 83036; 83516; 83615; 83735; 83880; 83930; 83935; 84146; 84156; 84165; 84300; 84439; 84443; 84481; 84484; 85025; 85652; 86140; 86225; 86235; 87426; 88305; 88342; 93005; 93970; 97116; 97162; 97165; 97530; 97535; 97802; 97803; 99285; A9575; J7030; A4216; J0834; J1940; J2405; J3490

== ENCOUNTER 2021-05-25 12:00 | Outpatient (CLI) | payer MEDICAID, SELFPAY ==
[2021-05-25 15:25] LABS: Hematocrit 31.4 % (37-47); Hemoglobin 10.6 g/dL (12.0-15.0); Mean Corp Hgb Conc 33.8 g/dL (32-36); Mean Corpuscular Hgb 32.9 pg (27.0-32.0); Mean Corpuscular Volume 97.5 fL (81-99); Mean Platelet Vol. 11.9 fl (6.2-12.0); Platelet Count 211 K/mm3 (150-450); RBC Distribution Width CV 15.8 % (11.6-14.6); RBC Distribution Width SD 56.3 fl (35.1-43.9); Red Blood Count 3.22 M/mm3 (4.2-5.4); White Blood Count 8.8 K/mm3 (4.4-11.0)
[2021-05-25 15:57] LABS: ALB/GLOB Ratio 0.8 RATIO (0.9-2.4); AST(SGOT) 104 U/L (15-37); Alanine Aminotransfer ALT/SGPT 171 U/L (13-56); Albumin, Serum 2.3 g/dL (3.2-5.0); Alkaline Phosphatase 121 U/L (45-117); Anion Gap 2 (5-15); BUN 36 mg/dL (7-18); BUN/Creat Ratio 55.8 RATIO (10-20); Calcium,Total 9.6 mg/dL (8.5-10.1); Chloride 105 mmol/L (98-107); Creatinine, Serum 0.64 mg/dL (0.55-1.02); EST Glomerular Filtration Rate 101 mL/min (>60); Est Glom Filt Rate - Afr Amer 122 mL/min (>60); Free T3 1.6 pg/mL (2.18-3.98); Glucose 89 mg/dL (74-106); Potassium 4.4 mmol/L (3.5-5.1); Protein, Total 5.3 g/dL (6.4-8.2); Sodium Level 138 mmol/L (136-145); T4 Free Direct 1.44 ng/dL (0.76-1.46)
== END 2021-05-25 23:59 | disposition home or self-care (01) ==
LOC: MFPLAB 12:04
PROVIDERS: PCP Family Medicine; Referring Provider Family Medicine; Visit Provider Family Medicine
DX: E22.2 Syndrome of inappropriate secretion of antidiuretic hormone (principal); E03.9 Hypothyroidism, unspecified
CPT/HCPCS: 36415; 80053; 83735; 84439; 84481; 85027

== ENCOUNTER 2021-05-31 12:00 | Emergency (ER) | payer MEDICAID, SELFPAY ==
[2021-05-31 12:01] VITALS: BP 124/72; PULSE 68; RESP 18; TEMP 36.9; O2SAT 98; BMI 23.0
[2021-05-31 12:10] VITALS: BP 124/72; PULSE 64; RESP 12; O2SAT 99
--- NOTE | 2021-05-31 12:15 | EDS_ITS ---
HPI History of Present Illness Chief Complaint: Allergic Reaction Informant: patient and family Onset/Context/Timing Onset: Days Context: Gradual Onset Timing: Waxes and wanes Quality: Disoriented, confused, fatigued Location: Generalized Worsened by: Nothing Relieved by: Nothing Narrative Narrative: Patient presents with possible reaction to medications that has been getting worse over the past couple days. Patient was recently admitted to the hospital for hyponatremia and hypothyroidism. Patient was started on Lasix, potassium, and sodium chloride supplements. Patient states that her primary care physician recently decreased her Synthroid from 75 to 50 mcg daily. Patient states that she has been disoriented and confused at times. Patient admits to some tinnitus and tremors in her hands. Patient also admits to some increasing fatigue and a headache. Patient also admits to some blurred vision. [facility] Medical History COVID-19 vaccination declined Environmental illness Hypothyroid Obsessive compulsive disorder Polypharmacy Home Medications furosemide [Lasix] 20 mg PO DAILY #30 tab 05/20/21 [Rx Last Taken Unknown] levothyroxine 75 mcg PO DAILY@0600 #30 tab 05/20/21 [Rx Last Taken Unknown] potassium chloride 20 meq PO BID #60 tab 05/20/21 [Rx Last Taken Unknown] sodium chloride 1 g PO BID #60 tab 05/20/21 [Rx Last Taken Unknown] Allergy/AdvReac Type Severity Reaction Status Date / Time codeine Allergy Vomiting Verified 05/16/21 18:19 lactose AdvReac Vomiting Verified 05/16/21 18:19 Family History (Updated 05/16/21 @ 21:[address] Priscilla Ruelas MD) Mother Heart disease Hypothyroidism Father OCD (obsessive compulsive disorder) Social History household members: family housing: house Smoking Status: Never smoker alcohol intake: never substance use type: does not use ROS ROS ED Constitutional Constitutional ED: Denies chills or fever(s) Eyes Eyes: Reports blurry vision; Denies change in vision ENT ENT ED: Denies rhinorrhea or sore throat Cardiovascular Cardiovascular: Denies chest pain or palpitations Respiratory/Chest Respiratory/Chest: Denies cough or dyspnea Gastrointestinal Gastrointestinal: Denies nausea or vomiting Genitourinary Genitourinary ED: Denies dysuria or hematuria Musculoskeletal Musculoskeletal: Denies back pain or neck pain Integumentary Denies abscess or rash Neurologic Neurologic: Reports headache(s) and weakness Allergic/Immunologic Allergic/Immunologic ED: Denies mouth swelling or urticaria EXAM Physical Exam Const Vital Signs: 05/31/21 12:01 05/31/21 12:10 05/31/21 13:44 Temperature 98.4 F Temperature Source Temporal Pulse Rate 68 64 65 Respiratory Rate 18 12 18 Blood Pressure 124/72 H 124/72 H 128/78 H Blood Pressure Mean 89 89 94 Pulse Ox 98 99 99 Oxygen Delivery Method Room Air Room Air Room Air 05/31/21 14:35 Temperature Temperature Source Pulse Rate 54 L Respiratory Rate 16 Blood Pressure 128/67 H Blood Pressure Mean 87 Pulse Ox 98 Oxygen Delivery Method Room Air Positive well nourished and well developed General Appearance ED: well developed HEENT Reports moist mucous membranes Neck supple and no JVD Resp normal respiratory effort and clear to auscultation bilaterally Cardio regular rate, regular rhythm and no murmurs GI normal to inspection, nondistended, normoactive bowel sounds and non-tender Palpation: soft Extremity Extremity Narrative: There is 3+ edema of the lower legs bilaterally. General Extremety ED: Yes edema General Extremity: edema Neuro oriented x3, CN's II-XII intact bilaterally and no sensory deficits noted Sensorium / Orientation: alert Motor Exam: strength 5/5 throughout Psych mental status grossly normal Skin no rashes or lesions noted MDM MDM MDM Narrative Medical decision making narrative: EKG was obtained. On my interpretation, it showed a normal sinus rhythm with a rate of 62. WA interval, QRS interval, and QTc intervals were all normal. [place] was normal. There are no acute ST or T wave changes. CBC shows a mild anemia with a hemoglobin of 10.3 and hematocrit 28.9. Comprehensive metabolic profile was essentially within normal limits. TSH was 3.95 which was improved compared to previous results. Urinalysis does not show any evidence of urinary tract infection. Patient was advised of her findings. Patient was instructed to continue her medications as prescribed. Patient was instructed to follow-up with her primary care physician this week as scheduled. Patient and family understood and were agreeable with the plan. All questions were answered. Lab Data Attestation: I reviewed the patient's lab results. Labs: Laboratory Results - last 24 hr 05/31/21 05/31/21 05/31/21 12:00 12:00 13:40 WBC 6.3 RBC 3.01 L Hgb 10.3 L Hct 28.9 L MCV 96.0 MCH 34.2 H MCHC 35.6 RDW Std Deviation 53.1 H RDW Coeff of Shalini 15.6 H Plt Count 314 MPV 11.1 Immature Gran % (Auto) 0.300 Neut % (Auto) 88.3 H Lymph % (Auto) 5.3 L Hind[place] % (Auto) 5.6 Eos % (Auto) 0.3 Baso % (Auto) 0.2 Absolute Neuts (auto) 5.5 Absolute Lymphs (auto) 0.33 L Nucleated RBC % 0 Platelet Estimate ADEQUATE RBC Morphology NORM C+C Sodium 139 Potassium 4.1 Chloride 106 Carbon Dioxide 29.0 Anion Gap 4 L BUN 33 H Creatinine 0.65 Estim Creat Clear Calc 93.98 Est GFR (MDRD) Af Amer 122 Est GFR (MDRD) Non-Af 101 BUN/Creatinine Ratio 51.0 H Glucose 106 Calcium 9.1 Total Bilirubin 0.20 AST 66 H ALT 110 H Alkaline Phosphatase 99 Total Protein 5.5 L Albumin 2.4 L Globulin 3.1 Albumin/Globulin Ratio 0.8 L TSH 3.95 H Urine Color Yellow Urine Clarity Clear Urine pH 5.0 Ur Specific [place] 1.025 Urine Protein 15 H Urine Glucose (UA) Normal Urine Ketones Negative Urine Occult Blood Negative Urine Nitrite Negative Urine Bilirubin Negative Urine Urobilinogen Normal Ur Leukocyte Esterase Negative Urine RBC 0 SEEN Urine WBC 0-5 SEEN Ur Squamous Epith Cells 0 SEEN Urine Bacteria 0 SEEN Urine Mucus 0 SEEN EKG Initial EKG: Attestation: I personally reviewed and interpreted this EKG as follows: Interpretation: Sinus Rhythm (62) and No Acute Injury Pattern Discharge Plan Triage Chief Complaint: Allergic Reaction ED Provider: Loi Sheikh Dx/Rx/DC Orders Clinical Impression: Peripheral edema, Hypothyroid Instructions: ED Peripheral Edema, Bilateral, ED Hypothyroidism Prescriptions: No Action sodium chloride 1 gram Tablet 1 g PO BID Qty: 60 RF: 0 levothyroxine 75 mcg Tablet 75 mcg PO DAILY@0600 Qty: 30 RF: 0 potassium chloride 20 mEq tablet extended release 20 meq PO BID Qty: 60 RF: 0 furosemide [Lasix] 20 mg tablet 20 mg PO DAILY Qty: 30 RF: 0 Primary Care Provider: Loi De La Rosa Referrals: Loi De La Rosa MD [Primary Care Provider] - Keep Dilma appointment Disposition Disposition: Home, Self Care
--- NOTE | 2021-05-31 12:20 | EKG12_ITS ---
Test Reason : ALLERGIC REACTION Blood Pressure : / mmHG Vent. Rate : 062 BPM Atrial Rate : 062 BPM P-R Int : 150 ms QRS Dur : 088 ms QT Int : 418 ms P-R-T Axes : 081 056 048 degrees QTc Int : 424 ms Normal sinus rhythm Normal ECG Confirmed by ZULEIKA WEBB, SHAMIKA ([id number]), script editor JEANNIE MUNGUIA ([id number]) on 06/03/2021 9:57:36 AM Referred By: JORJE Confirmed By:SHAMIKA TO MD
[2021-05-31 12:26] LABS: Absolute Lymphocyte Count 0.33 X10^3/uL (0.83-4.51); Absolute Neutrophil Count 5.5 X10^3/uL (2.0-7.7); Basophil# 0.01 X10^3/uL; Basophil% 0.2 % (0-1); Eosinophil# 0.02 X10^3/uL; Eosinophils% 0.3 % (0-5); Hematocrit 28.9 % (37-47); Hemoglobin 10.3 g/dL (12.0-15.0); Lymphocyte # 0.33 X10^3/ul (0.83-4.51); Lymphocyte % 5.3 % (19-41); Mean Corp Hgb Conc 35.6 g/dL (32-36); Mean Corpuscular Hgb 34.2 pg (27.0-32.0); Mean Platelet Vol. 11.1 fl (6.2-12.0); Monocyte# 0.35 X10^3/uL; Monocyte% 5.6 % (0-10); NRBC Flagged by Analyzer 0 % (0-5); Neutrophil # 5.53 X10^3/uL (2.7-7.7); Neutrophil % 88.3 % (47-70); POSITIVE DIFFERENTIAL YES; Platelet Count 314 K/mm3 (150-450); RBC Distribution Width CV 15.6 % (11.6-14.6); RBC Distribution Width SD 53.1 fl (35.1-43.9); Red Blood Count 3.01 M/mm3 (4.2-5.4); White Blood Count 6.3 K/mm3 (4.4-11.0)
[2021-05-31 12:38] LABS: Differential Indicated SCAN CRITERIA MET
[2021-05-31 12:50] LABS: ALB/GLOB Ratio 0.8 RATIO (0.9-2.4); AST(SGOT) 66 U/L (15-37); Alanine Aminotransfer ALT/SGPT 110 U/L (13-56); Albumin, Serum 2.4 g/dL (3.2-5.0); Alkaline Phosphatase 99 U/L (45-117); Anion Gap 4 (5-15); BUN 33 mg/dL (7-18); Calcium,Total 9.1 mg/dL (8.5-10.1); Chloride 106 mmol/L (98-107); Creatinine, Serum 0.65 mg/dL (0.55-1.02); EST Glomerular Filtration Rate 101 mL/min (>60); Est Glom Filt Rate - Afr Amer 122 mL/min (>60); Estimated Creatinine Clearance 93.98 ml/min; Globulin 3.1 g/dL (2.2-4.2); Glucose 106 mg/dL (74-106); Potassium 4.1 mmol/L (3.5-5.1); Protein, Total 5.5 g/dL (6.4-8.2); Sodium Level 139 mmol/L (136-145); Thyroid Stim Hormone (TSH) 3.95 uIU/mL (0.358-3.74)
[2021-05-31 12:53] LABS: Platelet Estimate ADEQUATE (ADEQ); Red Cell Morphology NORM C+C NORMAL (NORM C&C)
[2021-05-31 13:44] VITALS: BP 128/78; PULSE 65; RESP 18; O2SAT 99
[2021-05-31 13:45] LABS: Bacteria 0 SEEN /hpf (None Seen); Mucous, Urine 0 SEEN /hpf (<or=2+); Red Blood Cells-Urine 0 SEEN /hpf (0-5); Squamous Epithelial Cells - UA 0 SEEN /hpf (5-10)
[2021-05-31 13:47] LABS: Color, Urine Yellow (Yellow); Glucose, Dipstick Normal (Normal); Ketone-Dipstick Negative (Negative); Leukocyte Esterase-Dipstick Negative /ul (Negative); Nitrite-Dipstick Negative (Negative); Occult Blood-Urine Negative /ul (Negative); Protein-Dipstick 15 mg/dl (Negative); Specific Gravity, Urine 1.025 (1.002-1.030); Urine Bilirubin Dipstick Negative (Negative); Urine Clarity Clear (Clear); Urine Urobilinogen Normal (Normal)
[2021-05-31 13:55] LABS: White Blood Cells 0-5 SEEN /hpf (0-5)
[2021-05-31 14:35] VITALS: BP 128/67; PULSE 54; RESP 16; O2SAT 98
[2021-05-31 14:50] VITALS: BP 124/78; PULSE 56; RESP 12; TEMP 36.9; O2SAT 99
[2021-05-31 15:00] VITALS: BP 132/74; PULSE 66; RESP 14; O2SAT 98
[2021-06-01 14:33] LABS: T3 Total - Triiodothyronine 0.76 ng/mL (0.6-1.81)
== END 2021-05-31 15:07 | disposition home or self-care (01) ==
PROVIDERS: Emergency Provider Emergency Medicine; PCP Family Medicine; Visit Provider Emergency Medicine
DX: R60.0 Localized edema (principal); E03.9 Hypothyroidism, unspecified; R41.0 Disorientation, unspecified; R25.1 Tremor, unspecified; H93.19 Tinnitus, unspecified ear; D64.9 Anemia, unspecified; R51.9 Headache, unspecified; H53.8 Other visual disturbances; F42.9 Obsessive-compulsive disorder, unspecified; Z79.890 Hormone replacement therapy; Z79.899 Other long term (current) drug therapy
CPT/HCPCS: 80053; 81001; 84436; 84443; 84480; 85025; 93005; 99283; A4216

== ENCOUNTER 2021-06-09 11:41 | Outpatient (CLI) | payer MEDICAID, SELFPAY ==
[2021-06-09 15:30] LABS: T3 Total - Triiodothyronine 1.21 ng/mL (0.6-1.81)
[2021-06-09 15:36] LABS: AST(SGOT) 48 U/L (15-37); Alanine Aminotransfer ALT/SGPT 97 U/L (13-56); Albumin, Serum 3.1 g/dL (3.2-5.0); Alkaline Phosphatase 124 U/L (45-117); Anion Gap 3 (5-15); BUN 24 mg/dL (7-18); BUN/Creat Ratio 45.4 RATIO (10-20); Calcium,Total 9.1 mg/dL (8.5-10.1); Chloride 99 mmol/L (98-107); Creatinine, Serum 0.53 mg/dL (0.55-1.02); EST Glomerular Filtration Rate 127 mL/min (>60); Est Glom Filt Rate - Afr Amer 154 mL/min (>60); GGTP 12 U/L (5-55); Globulin 3.1 g/dL (2.2-4.2); Glucose 85 mg/dL (74-106); Magnesium 2.2 mg/dL (1.6-2.6); Potassium 3.7 mmol/L (3.5-5.1); Protein, Total 6.2 g/dL (6.4-8.2); Sodium Level 136 mmol/L (136-145); T4 Total, Thyroxin 13.9 ug/dL (4.8-13.9)
== END 2021-06-09 23:59 | disposition home or self-care (01) ==
LOC: MTLAB 11:43
PROVIDERS: PCP Family Medicine; Referring Provider Family Medicine; Visit Provider Family Medicine
DX: R74.8 Abnormal levels of other serum enzymes (principal); E03.9 Hypothyroidism, unspecified
CPT/HCPCS: 36415; 80053; 82977; 83735; 84436; 84480

== ENCOUNTER 2021-06-23 12:38 | Outpatient (CLI) | payer MEDICAID, SELFPAY ==
[2021-06-23 15:30] LABS: Absolute Lymphocyte Count 0.44 X10^3/uL (0.83-4.51); Basophil# 0.02 X10^3/uL; Basophil% 0.7 % (0-1); Eosinophil# 0.03 X10^3/uL; Hematocrit 31.5 % (37-47); Hemoglobin 10.7 g/dL (12.0-15.0); Lymphocyte # 0.44 X10^3/ul (0.83-4.51); Lymphocyte % 15.3 % (19-41); Mean Corpuscular Volume 97.2 fL (81-99); Mean Platelet Vol. 13.2 fl (6.2-12.0); Monocyte% 13.9 % (0-10); NRBC Flagged by Analyzer 0 % (0-5); Neutrophil # 1.98 X10^3/uL (2.7-7.7); Neutrophil % 68.8 % (47-70); POSITIVE DIFFERENTIAL YES; Platelet Count 210 K/mm3 (150-450); RBC Distribution Width CV 15.9 % (11.6-14.6); RBC Distribution Width SD 56.5 fl (35.1-43.9); Red Blood Count 3.24 M/mm3 (4.2-5.4); White Blood Count 2.9 K/mm3 (4.4-11.0)
[2021-06-23 15:48] LABS: ALB/GLOB Ratio 1.2 RATIO (0.9-2.4); AST(SGOT) 31 U/L (15-37); Alanine Aminotransfer ALT/SGPT 60 U/L (13-56); Albumin, Serum 3.3 g/dL (3.2-5.0); Alkaline Phosphatase 131 U/L (45-117); Anion Gap 2 (5-15); BUN 29 mg/dL (7-18); BUN/Creat Ratio 37.2 RATIO (10-20); Calcium,Total 9.2 mg/dL (8.5-10.1); Chloride 102 mmol/L (98-107); Creatinine, Serum 0.78 mg/dL (0.55-1.02); Differential Indicated SCAN CRITERIA MET; EST Glomerular Filtration Rate 81 mL/min (>60); Est Glom Filt Rate - Afr Amer 98 mL/min (>60); Globulin 2.8 g/dL (2.2-4.2); Glucose 67 mg/dL (74-106); Potassium 4.1 mmol/L (3.5-5.1); Protein, Total 6.1 g/dL (6.4-8.2); Sodium Level 137 mmol/L (136-145); T4 Total, Thyroxin 12.4 ug/dL (4.8-13.9)
[2021-06-23 16:25] LABS: Differential Comment SCANNED
[2021-06-23 16:33] LABS: Microalbumin,Random Urine 11.2 mg/L (NO RANGE EST.); Microalbumin:Creatinine Ratio 23.3 mg/g CRE (<30 mg/g CRE)
[2021-06-24 12:53] LABS: Pathologist Review Reviewed
== END 2021-06-23 23:59 | disposition home or self-care (01) ==
LOC: MTLAB 12:39
PROVIDERS: PCP Family Medicine; Referring Provider Family Medicine; Visit Provider Family Medicine
DX: R74.8 Abnormal levels of other serum enzymes (principal); M79.89 Other specified soft tissue disorders; E03.9 Hypothyroidism, unspecified
CPT/HCPCS: 36415; 80053; 82043; 82570; 84436; 85025

== ENCOUNTER 2021-06-26 15:19 | Outpatient (CLI) | payer MEDICAID, SELFPAY ==
[2021-06-26 18:10] LABS: Magnesium 2.1 mg/dL (1.6-2.6)
[2021-06-30 11:35] LABS: Arsenic 7245 3 ug/L (0-9); Lead, Blood < 1 ug/dL (0-4); Mercury, Blood 85324 < 1.0 ug/L (0.0-14.9)
== END 2021-06-26 23:59 | disposition home or self-care (01) ==
LOC: MFPLAB 15:20
PROVIDERS: PCP Family Medicine; Referring Provider Family Medicine; Visit Provider Family Medicine
DX: R60.0 Localized edema (principal)
CPT/HCPCS: 36415; 82175; 83655; 83735; 83825

== ENCOUNTER 2021-07-21 13:28 | Outpatient (RCR) | payer MEDICAID, SELFPAY | END 2021-07-25 23:59 | LOC: NS 13:28 | PROVIDERS: PCP Family Medicine; Referring Provider Internal Medicine Gastroenterology; Visit Provider Internal Medicine Gastroenterology | DX: Z71.3 Dietary counseling and surveillance (principal); R63.4 Abnormal weight loss; E03.9 Hypothyroidism, unspecified; E44.0 Moderate protein-calorie malnutrition; E43 Unspecified severe protein-calorie malnutrition | CPT/HCPCS: 97802 ==

== ENCOUNTER 2021-07-21 15:26 | Outpatient (CLI) | payer MEDICAID, SELFPAY ==
--- NOTE | 2021-07-21 15:32 | BD_ITS ---
STUDY: DUAL ENERGY X-RAY ABSORPTIOMETRY / DXA REASON FOR EXAM: Female, 56 years old. xSCREENING TECHNIQUE: Bone Mineral Density (BMD) measurements of lumbar spine and bilateral hips were obtained. COMPARISON: None. FINDINGS: Lumbar Spine (L1-L4): g/cm2 (0.765) / T-score (-2.6) / Z-score (-1.4) Findings are suggestive of osteoporosis with a high fracture risk. Left Femur Total: g/cm2 (0.571) / T-score (-3.0) / Z-score (-2.3) Left Femoral Neck: g/cm2 (0.475) / T-score (-3.4) / Z-score (-2.3) Right Femur Total: g/cm2 (0.578) / T-score (-3.0) / Z-score (-2.2) Right Femoral Neck: g/cm2 (0.488) / T-score (-3.3) / Z-score (-2.1) BD/Dexa Bone Density Study IMPRESSION: The patient is considered osteoporotic as outlined below according to World Anders Organization (WHO) criteria with a high fracture risk. Reference Information: The T-score is the number of standard deviations above or below the standard which is normal for young adults at their peak bone mineral density. The World Health Organization (WHO) interprets the T-scores as follows: Above -1 Normal bone density Between -1 and -2.5 Osteopenia Equal to / or below -2.5 Osteoporosis As a practical clinical guideline, osteopenia may be graded as follows: Mild -1 through -1.5 Moderate -1.6 through -2.0 Severe -2.1 through -2.4 The Z-score is the number of standard deviations above or below age-matched controls. A Z-score of less than -1.5 would be considered abnormal. References: 1. NIH Osteoporosis and Related Bone Diseases www osteo.org 2. International Society for Clinical Densitometry www iscd.org 3. National Osteoporosis Foundation www nof.org Electronically Signed: Kevin Fleming MD at 14:42 EDT ,
== END 2021-07-21 23:59 | disposition home or self-care (01) ==
PROVIDERS: PCP Family Medicine; Visit Provider Internal Medicine Endocrinology, Diabetes & Metabolism
DX: E43 Unspecified severe protein-calorie malnutrition (principal); Z91.89 Other specified personal risk factors, not elsewhere classified; E03.9 Hypothyroidism, unspecified; M81.0 Age-related osteoporosis without current pathological fracture; Z71.3 Dietary counseling and surveillance
CPT/HCPCS: 77080; 97802

== ENCOUNTER → 2021-08-18 | Outpatient (CLI) | payer MEDICAID, SELFPAY ==
[2021-08-18 15:34] LABS: Absolute Lymphocyte Count 0.85 X10^3/uL (0.83-4.51); Absolute Neutrophil Count 3.6 X10^3/uL (2.0-7.7); Basophil# 0.01 X10^3/uL; Basophil% 0.2 % (0-1); Eosinophil# 0.06 X10^3/uL; Eosinophils% 1.2 % (0-5); Hematocrit 31.3 % (37-47); Hemoglobin 10.1 g/dL (12.0-15.0); Lymphocyte # 0.85 X10^3/ul (0.83-4.51); Lymphocyte % 16.9 % (19-41); Mean Corp Hgb Conc 32.3 g/dL (32-36); Mean Corpuscular Hgb 31.7 pg (27.0-32.0); Mean Corpuscular Volume 98.1 fL (81-99); Monocyte% 9.9 % (0-10); NRBC Flagged by Analyzer 0 % (0-5); Neutrophil % 71.6 % (47-70); Platelet Count 282 K/mm3 (150-450); RBC Distribution Width CV 16.3 % (11.6-14.6); RBC Distribution Width SD 58.4 fl (35.1-43.9); Red Blood Count 3.19 M/mm3 (4.2-5.4)
[2021-08-18 16:14] LABS: ALB/GLOB Ratio 1.1 RATIO (0.9-2.4); AST(SGOT) 33 U/L (15-37); Alanine Aminotransfer ALT/SGPT 55 U/L (13-56); Albumin, Serum 3.4 g/dL (3.2-5.0); Alkaline Phosphatase 115 U/L (45-117); Anion Gap 3 (5-15); BUN 30 mg/dL (7-18); Calcium,Total 9.4 mg/dL (8.5-10.1); Chloride 104 mmol/L (98-107); Creatinine, Serum 0.73 mg/dL (0.55-1.02); EST Glomerular Filtration Rate 87 mL/min (>60); Est Glom Filt Rate - Afr Amer 106 mL/min (>60); Free T3 2.2 pg/mL (2.18-3.98); Glucose 130 mg/dL (74-106); Potassium 3.9 mmol/L (3.5-5.1); Protein, Total 6.4 g/dL (6.4-8.2); Sodium Level 138 mmol/L (136-145); Thyroid Stim Hormone (TSH) 0.06 uIU/mL (0.358-3.74); Total Bilirubin < 0.10 mg/dL (0.20-1.00)
== END | disposition home or self-care (01) ==
LOC: MTLAB 13:45
PROVIDERS: PCP Family Medicine; Referring Provider Family Medicine; Visit Provider Family Medicine
DX: R63.6 Underweight (principal)
CPT/HCPCS: 36415; 80053; 84439; 84443; 84481; 85025

== ENCOUNTER → 2021-09-22 | Outpatient (CLI) | payer MEDICAID, SELFPAY ==
[2021-09-22 18:58] LABS: T4 Free Direct 0.97 ng/dL (0.76-1.46); Thyroid Stim Hormone (TSH) 0.16 uIU/mL (0.358-3.74)
[2021-09-22 19:00] LABS: Vitamin B12 1123 pg/mL (211-911); Vitamin D,25 Hydroxy 54.6 ng/mL
[2021-09-22 19:12] LABS: Ferritin 20 ng/mL (8-252)
== END | disposition home or self-care (01) ==
LOC: MFPLAB 14:34
PROVIDERS: Nurse Practitioner Family; PCP Family Medicine; Visit Provider Internal Medicine Endocrinology, Diabetes & Metabolism
DX: E61.1 Iron deficiency (principal); R20.2 Paresthesia of skin; E03.8 Other specified hypothyroidism; E06.3 Autoimmune thyroiditis; E55.9 Vitamin D deficiency, unspecified
CPT/HCPCS: 36415; 82306; 82607; 82728; 84439; 84443

== ENCOUNTER → 2021-10-26 | Outpatient (CLI) | payer MEDICAID, SELFPAY ==
[2021-10-26 17:45] LABS: Absolute Neutrophil Count 3.1 X10^3/uL (2.0-7.7); Basophil# 0.03 X10^3/uL; Basophil% 0.7 % (0-1); Eosinophil# 0.03 X10^3/uL; Eosinophils% 0.7 % (0-5); Hematocrit 33.4 % (37-47); Hemoglobin 11.6 g/dL (12.0-15.0); Lymphocyte % 22.1 % (19-41); Mean Corp Hgb Conc 34.7 g/dL (32-36); Mean Corpuscular Hgb 32.2 pg (27.0-32.0); Mean Corpuscular Volume 92.8 fL (81-99); Monocyte% 8.8 % (0-10); NRBC Flagged by Analyzer 0 % (0-5); Neutrophil # 3.07 X10^3/uL (2.7-7.7); Neutrophil % 67.7 % (47-70); Platelet Count 185 K/mm3 (150-450); RBC Distribution Width CV 17.4 % (11.6-14.6); RBC Distribution Width SD 59.3 fl (35.1-43.9); White Blood Count 4.5 K/mm3 (4.4-11.0)
[2021-10-26 18:18] LABS: ALB/GLOB Ratio 1.2 RATIO (0.9-2.4); AST(SGOT) 54 U/L (15-37); Alanine Aminotransfer ALT/SGPT 74 U/L (13-56); Albumin, Serum 3.5 g/dL (3.2-5.0); Alkaline Phosphatase 85 U/L (45-117); Anion Gap 6 (5-15); BUN 25 mg/dL (7-18); BUN/Creat Ratio 25.3 RATIO (10-20); Calcium,Total 9.6 mg/dL (8.5-10.1); Chloride 96 mmol/L (98-107); Creatinine, Serum 0.99 mg/dL (0.55-1.02); EST Glomerular Filtration Rate 62 mL/min (>60); Est Glom Filt Rate - Afr Amer 74 mL/min (>60); Globulin 2.9 g/dL (2.2-4.2); Glucose 83 mg/dL (74-106); Potassium 4.2 mmol/L (3.5-5.1); Protein, Total 6.4 g/dL (6.4-8.2); Sodium Level 134 mmol/L (136-145); Thyroid Stim Hormone (TSH) 1.45 uIU/mL (0.358-3.74)
== END | disposition home or self-care (01) ==
LOC: MFPLAB 15:14
PROVIDERS: PCP Family Medicine; Visit Provider Family Medicine
DX: R53.83 Other fatigue (principal)
CPT/HCPCS: 36415; 80053; 84443; 85025

== ENCOUNTER → 2021-11-02 | Outpatient (CLI) | payer MEDICAID, SELFPAY ==
[2021-11-02 12:29] LABS: Osmolality, Urine 282 mOsm/KG
[2021-11-02 12:29] LABS: Osmolality, Serum 289 mOsm/KG (275-295)
[2021-11-02 12:33] LABS: Urine Sodium 14 mmol/L (Not Establ.)
[2021-11-02 12:46] LABS: ALB/GLOB Ratio 1.2 RATIO (0.9-2.4); AST(SGOT) 52 U/L (15-37); Alanine Aminotransfer ALT/SGPT 70 U/L (13-56); Albumin, Serum 3.5 g/dL (3.2-5.0); Alkaline Phosphatase 84 U/L (45-117); Anion Gap 4 (5-15); BUN 25 mg/dL (7-18); BUN/Creat Ratio 33.5 RATIO (10-20); Calcium,Total 9.5 mg/dL (8.5-10.1); Chloride 100 mmol/L (98-107); Creatinine, Serum 0.75 mg/dL (0.55-1.02); EST Glomerular Filtration Rate 85 mL/min (>60); Est Glom Filt Rate - Afr Amer 103 mL/min (>60); Free T3 1.6 pg/mL (2.18-3.98); GGTP 11 U/L (5-55); Glucose 56 mg/dL (74-106); Protein, Total 6.5 g/dL (6.4-8.2); Sodium Level 135 mmol/L (136-145); T4 Free Direct 0.76 ng/dL (0.76-1.46); Thyroid Stim Hormone (TSH) 1.83 uIU/mL (0.358-3.74)
== END | disposition home or self-care (01) ==
LOC: MFPLAB 10:11
PROVIDERS: PCP Family Medicine; Visit Provider Family Medicine
DX: E87.1 Hypo-osmolality and hyponatremia (principal); R79.89 Other specified abnormal findings of blood chemistry; R74.8 Abnormal levels of other serum enzymes
CPT/HCPCS: 36415; 80053; 82140; 82570; 82977; 83930; 83935; 84300; 84439; 84443; 84481

== ENCOUNTER → 2021-11-23 | Outpatient (CLI) | payer MEDICAID, SELFPAY ==
[2021-11-23 17:57] LABS: Absolute Lymphocyte Count 0.91 X10^3/uL (0.83-4.51); Absolute Neutrophil Count 2.9 X10^3/uL (2.0-7.7); Basophil# 0.02 X10^3/uL; Basophil% 0.5 % (0-1); Eosinophil# 0.04 X10^3/uL; Hematocrit 34.5 % (37-47); Hemoglobin 11.6 g/dL (12.0-15.0); Lymphocyte # 0.91 X10^3/ul (0.83-4.51); Lymphocyte % 22.1 % (19-41); Mean Corp Hgb Conc 33.6 g/dL (32-36); Mean Corpuscular Hgb 31.4 pg (27.0-32.0); Mean Corpuscular Volume 93.5 fL (81-99); Monocyte# 0.28 X10^3/uL; Monocyte% 6.8 % (0-10); NRBC Flagged by Analyzer 0 % (0-5); Neutrophil # 2.86 X10^3/uL (2.7-7.7); Neutrophil % 69.6 % (47-70); Platelet Count 207 K/mm3 (150-450); RBC Distribution Width SD 61.8 fl (35.1-43.9); Red Blood Count 3.69 M/mm3 (4.2-5.4); White Blood Count 4.1 K/mm3 (4.4-11.0)
[2021-11-23 18:25] LABS: Vitamin B12 731 pg/mL (211-911); Vitamin D,25 Hydroxy 47.4 ng/mL
[2021-11-23 18:42] LABS: ALB/GLOB Ratio 1.1 RATIO (0.9-2.4); AST(SGOT) 50 U/L (15-37); Alanine Aminotransfer ALT/SGPT 83 U/L (13-56); Albumin, Serum 3.4 g/dL (3.2-5.0); Alkaline Phosphatase 83 U/L (45-117); Anion Gap 6 (5-15); BUN 28 mg/dL (7-18); BUN/Creat Ratio 34.1 RATIO (10-20); Calcium,Total 9.3 mg/dL (8.5-10.1); Chloride 101 mmol/L (98-107); Creatinine, Serum 0.82 mg/dL (0.55-1.02); EST Glomerular Filtration Rate 76 mL/min (>60); Est Glom Filt Rate - Afr Amer 92 mL/min (>60); Ferritin 24 ng/mL (8-252); Free T3 1.8 pg/mL (2.18-3.98); Glucose 82 mg/dL (74-106); Magnesium 1.8 mg/dL (1.6-2.6); Protein, Total 6.4 g/dL (6.4-8.2); Sodium Level 138 mmol/L (136-145); T4 Free Direct 0.85 ng/dL (0.76-1.46); Thyroid Stim Hormone (TSH) 2.01 uIU/mL (0.358-3.74)
== END | disposition home or self-care (01) ==
LOC: MFPLAB 15:28
PROVIDERS: PCP Family Medicine; Visit Provider Family Medicine
DX: K90.9 Intestinal malabsorption, unspecified (principal); E03.9 Hypothyroidism, unspecified; M85.80 Other specified disorders of bone density and structure, unspecified site; Z15.89 Genetic susceptibility to other disease
CPT/HCPCS: 36415; 80053; 82306; 82607; 82728; 82746; 83735; 84439; 84443; 84481; 85025

== ENCOUNTER → 2021-12-17 | Outpatient (CLI) | payer MEDICAID, SELFPAY ==
[2021-12-17 16:14] LABS: Erythrocyte Sedimentation Rate 9 mm/hr (0-30)
[2021-12-17 16:48] LABS: Vitamin D,25 Hydroxy 51.6 ng/mL
[2021-12-17 17:09] LABS: CPK Total, Creatine Kinase 709 U/L (26-192); CRP < 2.90 mg/L (0.0-3.0); LDH 436 U/L (84-246)
[2021-12-21 08:47] LABS: Anti-Mitochondrial AB <20.0 Units (0.0-20.0); Vitamin D 1,25-Dihydroxy 80.4 pg/mL (24.8-81.5)
[2021-12-21 16:08] LABS: Angiotensin Convert Enzyme 27 U/L (14-82); Cytoplasmic Ab (C-ANCA) <1:20 titer (Neg:<1:20); HEPATITIS B SURFACE AG Negative (Negative); Hep C Antibodies <0.1 s/co ratio (0.0-0.9); Hepatitis A IgM Antibody Negative (Negative); Hepatitis B Core AB IgM Negative (Negative)
[2021-12-22 13:57] LABS: Aldolase 12.4 U/L (3.3-10.3); Anti-Smooth Muscle ABS 2 Units (0-19); Perinuclear Ab (P-ANCA) <1:20 titer (Neg:<1:20)
== END | disposition home or self-care (01) ==
LOC: LAB 15:16
PROVIDERS: PCP Family Medicine; Visit Provider Internal Medicine Gastroenterology
DX: R74.8 Abnormal levels of other serum enzymes (principal)
CPT/HCPCS: 36415; 80074; 82085; 82164; 82306; 82550; 82652; 83516; 83615; 85652; 86140; 86256

== ENCOUNTER → 2021-12-29 | Outpatient (CLI) | payer MEDICAID, SELFPAY ==
--- NOTE | 2021-12-29 08:47 | US_ITS ---
STUDY: ABDOMINAL ULTRASOUND - ELASTOGRAPHY REASON FOR VISIT: Female, 56 years old. Abnormal liver enzymes. TECHNIQUE: Liver stiffness measurements were obtained on a ImpulseFlyer RS 85 ultrasound machine using a CA 1-7 probe following the SRU guidelines. 3 measurements were obtained using a 2-D-SWE method. The IQR/M was 10% suggesting a quality data set. TECHNICAL QUALITY: Adequate. COMPARISON: Comparison is made with prior study done earlier today. FINDINGS: Liver: There is no demonstrated mass lesion. Median liver stiffness measured 5.1 kPa. US/Elastography Parenchyma/Organ IMPRESSION: Liver stiffness measures 5.1 kPa compatible with F0-F1 (Normal to mild liver fibrosis) Metavir score. Electronically Signed: Kevin Fleming MD at 10:26 EDT ,
--- NOTE | 2021-12-29 08:47 | US_ITS ---
STUDY: RIGHT UPPER QUADRANT ABDOMINAL ULTRASOUND EXAMINATION OF 2106 HOURS ON 12/29/2021 REASON FOR VISIT: 56-year-old female with elevated liver enzymes. TECHNIQUE: Ultrasound evaluation of the right upper quadrant was performed with real-time and static saenz-scale imaging. TECHNICAL QUALITY: Adequate. COMPARISON: None. FINDINGS: Normal size liver without cystic or solid mass lesions. Normal hepatic echogenicity. Normal portal and hepatic venous blood flow. Distended gallbladder without gallstones or wall thickening. No dilatation of intrahepatic there are system or common bile duct, which measures 1 mm in its greatest diameter. Normal pancreas without pseudocyst or mass lesions. No dilatation of the pancreatic duct. Right kidney measures 9.3 cm in length by 4.3 cm in AP diameter by 4.5 cm in transverse diameter. There is a 13 mm thick normal renal cortex. There is no evidence of hydronephrosis or obstructive uropathy. No cystic or solid mass lesions. No ascites or right pleural fluid. US/Abdomen Limited IMPRESSION: 1. Normal right upper quadrant ultrasound examination. 2. Normal size liver without cystic or solid mass lesions and with normal echogenicity. 3. Distended gallbladder without gallstones or wall thickening. 4. Normal biliary system. Common bile duct measures a normal 1 mm in diameter. 5. Normal pancreas. 6. Normal right kidney. 7. No ascites or right pleural fluid. Electronically Signed: Ramsey Randhawa MD at 1:48 EDT ,
== END | disposition home or self-care (01) ==
LOC: US 08:46
PROVIDERS: PCP Family Medicine; Referring Provider Internal Medicine Gastroenterology; Visit Provider Internal Medicine Gastroenterology
DX: R74.8 Abnormal levels of other serum enzymes (principal)
CPT/HCPCS: 76705; 76981

== ENCOUNTER → 2022-01-12 | Outpatient (CLI) | payer MEDICAID, SELFPAY ==
[2022-01-12 16:47] LABS: T4 Free Direct 0.95 ng/dL (0.76-1.46); Thyroid Stim Hormone (TSH) 3.98 uIU/mL (0.358-3.74)
== END | disposition home or self-care (01) ==
PROVIDERS: PCP Family Medicine; Referring Provider Nurse Practitioner Family; Visit Provider Nurse Practitioner Family
DX: E03.8 Other specified hypothyroidism (principal); E06.3 Autoimmune thyroiditis
CPT/HCPCS: 36415; 84439; 84443

== ENCOUNTER → 2022-01-20 | Outpatient (CLI) | payer MEDICAID, SELFPAY ==
[2022-01-20 13:01] LABS: ALB/GLOB Ratio 1.1 RATIO (0.9-2.4); AST(SGOT) 52 U/L (15-37); Alanine Aminotransfer ALT/SGPT 65 U/L (13-56); Alkaline Phosphatase 73 U/L (45-117); Anion Gap 3 (5-15); BUN 27 mg/dL (7-18); BUN/Creat Ratio 44.3 RATIO (10-20); Calcium,Total 9.4 mg/dL (8.5-10.1); Chloride 101 mmol/L (98-107); Creatinine, Serum 0.61 mg/dL (0.55-1.02); EST Glomerular Filtration Rate 108 mL/min (>60); Est Glom Filt Rate - Afr Amer 130 mL/min (>60); Free T3 1.7 pg/mL (2.18-3.98); Globulin 2.8 g/dL (2.2-4.2); Glucose 58 mg/dL (74-106); Potassium 3.8 mmol/L (3.5-5.1); Protein, Total 5.8 g/dL (6.4-8.2); Sodium Level 136 mmol/L (136-145); T4 Free Direct 0.96 ng/dL (0.76-1.46)
[2022-01-20 13:04] LABS: Osmolality, Serum 298 mOsm/KG (275-295); Osmolality, Urine 509 mOsm/KG
[2022-01-20 13:08] LABS: Urine Sodium 10 mmol/L (Not Establ.)
== END | disposition home or self-care (01) ==
LOC: MFPLAB 10:40
PROVIDERS: PCP Family Medicine; Referring Provider Family Medicine; Visit Provider Family Medicine
DX: M79.89 Other specified soft tissue disorders (principal); E03.9 Hypothyroidism, unspecified
CPT/HCPCS: 36415; 80053; 83930; 83935; 84300; 84439; 84481

== ENCOUNTER → 2022-02-04 | Outpatient (CLI) | payer MEDICAID, SELFPAY ==
[2022-02-04 12:42] LABS: Absolute Lymphocyte Count 0.65 X10^3/uL (0.83-4.51); Absolute Neutrophil Count 2.2 X10^3/uL (2.0-7.7); Basophil# 0.01 X10^3/uL; Basophil% 0.3 % (0-1); Eosinophil# 0.02 X10^3/uL; Eosinophils% 0.6 % (0-5); Hematocrit 34.4 % (37-47); Hemoglobin 11.6 g/dL (12.0-15.0); Lymphocyte # 0.65 X10^3/ul (0.83-4.51); Lymphocyte % 20.4 % (19-41); Mean Corp Hgb Conc 33.7 g/dL (32-36); Mean Corpuscular Hgb 31.4 pg (27.0-32.0); Mean Platelet Vol. 12.1 fl (6.2-12.0); Monocyte# 0.33 X10^3/uL; Monocyte% 10.4 % (0-10); NRBC Flagged by Analyzer 0.6 % (0-5); Neutrophil # 2.16 X10^3/uL (2.7-7.7); Platelet Count 166 K/mm3 (150-450); RBC Distribution Width CV 18.3 % (11.6-14.6); RBC Distribution Width SD 62.5 fl (35.1-43.9); White Blood Count 3.2 K/mm3 (4.4-11.0)
[2022-02-04 13:25] LABS: Prealbumin 23.7 mg/dL (20.0-40.0)
[2022-02-04 13:32] LABS: AST(SGOT) 56 U/L (15-37); Alanine Aminotransfer ALT/SGPT 64 U/L (13-56); Albumin, Serum 2.6 g/dL (3.2-5.0); Alkaline Phosphatase 71 U/L (45-117); Anion Gap 4 (5-15); BUN 26 mg/dL (7-18); BUN/Creat Ratio 42.7 RATIO (10-20); Calcium,Total 8.9 mg/dL (8.5-10.1); Chloride 100 mmol/L (98-107); Creatinine, Serum 0.61 mg/dL (0.55-1.02); EST Glomerular Filtration Rate 108 mL/min (>60); Est Glom Filt Rate - Afr Amer 130 mL/min (>60); Free T3 1.8 pg/mL (2.18-3.98); GGTP 9 U/L (5-55); Globulin 2.5 g/dL (2.2-4.2); Glucose 70 mg/dL (74-106); Potassium 3.5 mmol/L (3.5-5.1); Protein, Total 5.1 g/dL (6.4-8.2); Sodium Level 137 mmol/L (136-145); Thyroid Stim Hormone (TSH) 6.26 uIU/mL (0.358-3.74)
[2022-02-11 15:08] LABS: Alternaria tenuis <0.10 kU/L (Class 0); Ash, White <0.10 kU/L (Class 0); Aspergillus fumigatus <0.10 kU/L (Class 0); Bermuda Grass <0.10 kU/L (Class 0); Birch <0.10 kU/L (Class 0); Black Walnut <0.10 kU/L (Class 0); Cat Hair / Dander,Stand <0.10 kU/L (Class 0); Cedar, Mountain <0.10 kU/L (Class 0); Cladosporium herbarum <0.10 kU/L (Class 0); Cockroach, American <0.10 kU/L (Class 0); Cottonwood <0.10 kU/L (Class 0); D farinae Mite <0.10 kU/L (Class 0); D pteronyssinus <0.10 kU/L (Class 0); Dog Epithelia <0.10 kU/L (Class 0); Elm, American White <0.10 kU/L (Class 0); Immunoglobulin E 29 IU/mL (6-495); Maple/Box Elder <0.10 kU/L (Class 0); Mulberry, White <0.10 kU/L (Class 0); Oak, White <0.10 kU/L (Class 0); Pecan <0.10 kU/L (Class 0); Penicillium Notatum <0.10 kU/L (Class 0); Pigweed, Rough <0.10 kU/L (Class 0); Ragweed, Short/Common <0.10 kU/L (Class 0); Russian Thistle <0.10 kU/L (Class 0); Sheep Sorrel <0.10 kU/L (Class 0); Sycamore, American <0.10 kU/L (Class 0); Timothy Grass <0.10 kU/L (Class 0)
[2022-02-11 21:01] LABS: Mouse Urine <0.10 kU/L (Class 0)
[2022-02-12 11:23] LABS: Immunoglobulin A 28 mg/dL (87-352); Immunoglobulin E 30 IU/mL (6-495); Immunoglobulin G 299 mg/dL (586-1602); Immunoglobulin M 17 mg/dL (26-217)
[2022-02-13 00:07] LABS: Beef <0.10 kU/L (Class 0); Corn <0.10 kU/L (Class 0); Egg, Whole <0.10 kU/L (Class 0); Milk (Cow) <0.10 kU/L (Class 0); Peanut <0.10 kU/L (Class 0); Pork <0.10 kU/L (Class 0); Soybean <0.10 kU/L (Class 0); Wheat <0.10 kU/L (Class 0)
[2022-02-13 07:37] LABS: Chocolate <0.10 kU/L (Class 0)
== END | disposition home or self-care (01) ==
PROVIDERS: PCP Family Medicine; Visit Provider Family Medicine
DX: M79.89 Other specified soft tissue disorders (principal); E03.9 Hypothyroidism, unspecified; H10.10 Acute atopic conjunctivitis, unspecified eye
CPT/HCPCS: 36415; 80053; 82784; 82785; 82977; 84134; 84439; 84443; 84481; 85025; 86003; 86005

== ENCOUNTER → 2022-02-23 | Outpatient (CLI) | payer MEDICAID, SELFPAY ==
[2022-02-23 11:36] LABS: Hematocrit 36.6 % (37-47); Hemoglobin 12.1 g/dL (12.0-15.0); Mean Corp Hgb Conc 33.1 g/dL (32-36); Mean Corpuscular Hgb 30.9 pg (27.0-32.0); Mean Corpuscular Volume 93.6 fL (81-99); Mean Platelet Vol. 12.2 fl (6.2-12.0); Platelet Count 184 K/mm3 (150-450); RBC Distribution Width CV 18.3 % (11.6-14.6); RBC Distribution Width SD 62.5 fl (35.1-43.9); Red Blood Count 3.91 M/mm3 (4.2-5.4); White Blood Count 3.8 K/mm3 (4.4-11.0)
[2022-02-23 11:43] LABS: International Normalized Ratio 0.8
[2022-02-23 11:53] LABS: Protein, Urine (Random) < 6.0 mg/dL (<11.9); Urine Sodium < 5 mmol/L (Not Establ.)
[2022-02-23 12:13] LABS: ALB/GLOB Ratio 0.9 RATIO (0.9-2.4); AST(SGOT) 64 U/L (15-37); Alanine Aminotransfer ALT/SGPT 73 U/L (13-56); Albumin, Serum 2.4 g/dL (3.2-5.0); Alkaline Phosphatase 66 U/L (45-117); Anion Gap 4 (5-15); BUN 25 mg/dL (7-18); BUN/Creat Ratio 39.1 RATIO (10-20); Calcium,Total 8.8 mg/dL (8.5-10.1); Chloride 99 mmol/L (98-107); Creatinine, Serum 0.64 mg/dL (0.55-1.02); EST Glomerular Filtration Rate 102 mL/min (>60); Est Glom Filt Rate - Afr Amer 123 mL/min (>60); Globulin 2.8 g/dL (2.2-4.2); Glucose 69 mg/dL (74-106); Potassium 3.8 mmol/L (3.5-5.1); Protein, Total 5.2 g/dL (6.4-8.2); Sodium Level 137 mmol/L (136-145)
== END | disposition home or self-care (01) ==
LOC: LAB 10:32
PROVIDERS: PCP Family Medicine; Referring Provider Family Medicine; Visit Provider Family Medicine
DX: M79.89 Other specified soft tissue disorders (principal); E87.1 Hypo-osmolality and hyponatremia; E88.09 Other disorders of plasma-protein metabolism, not elsewhere classified
CPT/HCPCS: 36415; 80053; 82570; 83735; 84156; 84300; 85027; 85610

== ENCOUNTER → 2022-03-11 | Outpatient (CLI) | payer MEDICAID, SELFPAY ==
[2022-03-11 16:07] LABS: Erythrocyte Sedimentation Rate 13 mm/hr (0-30)
[2022-03-11 16:47] LABS: CPK Total, Creatine Kinase 293 U/L (26-192); CRP < 2.90 mg/L (0.0-3.0)
[2022-03-16 13:07] LABS: Alpha-1-Globulin, Ur 8.8 % (.); Alpha-2-Globulins, Ur 16.1 % (.); Beta Globulin, Ur 43.8 % (.); Gamma Globulin, Ur 12.3 % (.); Myoglobin, Urine 3 ng/mL (0-13); Total Protein, Ur 6.5 mg/dL (Not Estab.)
[2022-03-17 14:38] LABS: M-Spike, Ur % Comment: % (Not Observed); Myoglobin, Serum 86 ng/mL (25-58)
== END | disposition home or self-care (01) ==
LOC: LAB 15:10
PROVIDERS: PCP Family Medicine; Visit Provider Internal Medicine Gastroenterology
DX: E43 Unspecified severe protein-calorie malnutrition (principal)
CPT/HCPCS: 36415; 82550; 83874; 84166; 85652; 86140; 86335

== ENCOUNTER → 2022-03-13 | Outpatient (CLI) | payer MEDICAID, SELFPAY ==
[2022-03-16 14:08] LABS: Albumin, Ur 25.6 % (.); Alpha-1-Globulin, Ur 0.8 % (.); Beta Globulin, Ur 52.5 % (.); Gamma Globulin, Ur 18.3 % (.); M-Spike, Ur % Not Observed % (Not Observed); Protein, 24Ur 55 mg/24 hr (30-150); Total Protein, Ur 5.1 mg/dL (Not Estab.)
== END | disposition home or self-care (01) ==
LOC: LAB 08:49
PROVIDERS: PCP Family Medicine; Visit Provider Internal Medicine Gastroenterology
DX: E43 Unspecified severe protein-calorie malnutrition (principal)
CPT/HCPCS: 84166

== ENCOUNTER 2022-03-15 15:55 | Inpatient (IN) | payer MEDICAID, SELFPAY ==
[2022-03-15 15:56] VITALS: BP 129/83; PULSE 59; RESP 18; TEMP 36.8; O2SAT 98; BMI 23.6
--- NOTE | 2022-03-15 16:36 | EX.ED.DYSGE1 ---
HPI History of Present Illness Chief Complaint: Edema Informant: patient and family Onset/Context/Timing Onset: Weeks Narrative Narrative: Patient present secondary to increasing edema in her lower extremities now up into her abdomen. She was admitted in April of this year and found to have hypothyroidism and hyponatremia. 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 She states while admitted her lower extremity edema significantly improved. She has been following up with her doctor as well as Dr. Lawrence with GI. Patient's protein levels have recently started dropping again and Dr. Lawrence believes that she may have polymyositis. She is scheduled to see both the registration rep and district recruiter in the coming week or 2. Patient presents the emergency room today because of increased swelling and difficulty ambulating. 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 Obsessive compulsive disorder Osteoporosis Polypharmacy Home Medications sodium chloride 1 gram tablet 1 g PO BID #60 tabs 05/20/21 [Rx Last Taken Unknown] Lactobacillus rhamnosus GG 5 billion cell oral powder packet ([employer]) PO 07/16/21 [History Last Taken Unknown] melatonin 5 mg tablet 5 mg PO HS PRN 07/16/21 [History Last Taken Unknown] progestrone compound topical 07/16/21 [History Last Taken Unknown] cholecalciferol (vitamin D3) 10 mcg/drop (400 unit/drop) oral drops 50 mcg PO DAILY 12/17/21 [History Last Taken Unknown] levothyroxine 50 mcg tablet 25 mcg PO .qd, 2 on Sundays #96 tabs 01/15/22 [Rx Last Taken Unknown] Allergy/AdvReac Type Severity Reaction Status Date / Time codeine Allergy Vomiting Verified 03/15/22 16:00 amoxicillin AdvReac Intermediate hot flash Verified 03/15/22 16:00 lactose AdvReac Vomiting Verified 03/15/22 16:00 Family History Mother Heart disease Hypothyroidism Father OCD (obsessive compulsive disorder) Social History household members: family housing: house Smoking Status: Never smoker alcohol intake: never substance use type: does not use ROS ROS ED Constitutional Constitutional ED: Denies chills or fever(s) Eyes Eyes: Denies change in vision or discharge from eye(s) ENT ENT ED: Denies discharge from eye(s), rhinorrhea or sore throat Cardiovascular Cardiovascular: Denies chest pain or palpitations Respiratory/Chest Respiratory/Chest: Denies cough or dyspnea Gastrointestinal Gastrointestinal: Denies abdominal pain, diarrhea, nausea or vomiting Genitourinary Genitourinary ED: Denies dysuria Musculoskeletal Musculoskeletal: Reports extremity pain and myalgias; Denies back pain Integumentary Denies Abrasions or rash Neurologic Neurologic: Reports weakness; Denies headache(s) Psychiatric Psychiatric: Denies anxiety or depression Allergic/Immunologic Allergic/Immunologic ED: Denies lip swelling or urticaria EXAM Physical Exam Const Vital Signs: 03/15/22 15:56 Temperature 98.2 F Temperature Source Temporal Pulse Rate 59 L Respiratory Rate 18 Blood Pressure 129/83 H Blood Pressure Mean 98 Pulse Ox 98 Oxygen Delivery Method Room Air Positive well nourished and well developed General Appearance ED: well developed HEENT Reports normocephalic and head/scalp atraumatic Eyes PERRL and EOMs intact bilaterally Neck supple Chest Wall inspection of chest normal and palpation of chest normal Resp normal respiratory effort and clear to auscultation bilaterally Cardio regular rate and regular rhythm GI normal to inspection, nondistended, normoactive bowel sounds Palpation: soft Extremity Extremity Narrative: 3-4+ edema bilateral lower extremities. Neuro oriented x3 and no sensory deficits noted Sensorium / Orientation: alert Psych mental status grossly normal Skin no rashes or lesions noted MDM MDM MDM Narrative Medical decision making narrative: Reviewed patient's prior work-up. Urine studies were recently sent and still pending. Lab work obtained today. Venous ultrasound of the lower extremities obtained. Lab Data Attestation: I reviewed the patient's lab results. Labs: Laboratory Results - last 24 hr 03/15/22 03/15/22 03/15/22 16:52 16:52 16:52 WBC 5.9 RBC 3.60 L Hgb 11.5 L Hct 33.8 L MCV 93.9 MCH 31.9 MCHC 34.0 RDW Std Deviation 64.4 H RDW Coeff of Shalini 18.7 H Plt Count 219 MPV 11.4 Immature Gran % (Auto) 0.200 Neut % (Auto) 83.4 H Lymph % (Auto) 9.0 L [place] % (Auto) 6.8 Eos % (Auto) 0.3 Baso % (Auto) 0.3 Absolute Neuts (auto) 4.9 Absolute Lymphs (auto) 0.53 L Nucleated RBC % 0 Differential Comment SCANNED Sodium 139 Potassium 4.3 Chloride 104 Carbon Dioxide 32.0 Anion Gap 3 L BUN 32 H Creatinine 0.76 Estim Creat Clear Calc 88.32 Est GFR (MDRD) Af Amer 100 Est GFR (MDRD) Non-Af 83 BUN/Creatinine Ratio 41.8 H Glucose 88 Calcium 8.8 Total Bilirubin 0.10 L AST 69 H ALT 72 H Alkaline Phosphatase 66 B-Natriuretic Peptide 117.2 H Total Protein 5.0 L Albumin 2.0 L Globulin 3.0 Albumin/Globulin Ratio 0.7 L Radiography Diagnostic Testing: Clinical Impression(s) from Imaging Studies Venous Duplex 03/15/22 17:06 IMPRESSION: No visualized deep venous thrombosis allowing for the aforementioned technique. Electronically Signed: Ambreen Mcgregor MD at 18:07 EST , Treatment and Re-Evaluation Narrative: Venous ultrasound of the lower extremities revealed no evidence of DVT. CBC is unremarkable. Hemoglobin is 11.5. Chemistry studies reveal normal renal function. AST is 69 and ALT is 72. Albumin is low at 2.0. BNP is 117. Test results are discussed with the patient. She states that she is having trouble getting around at home and cannot take care of herself given the edema. I will speak with hospitalist regarding admission and we will discuss use of Lasix. Family states that she was on Lasix for short time in April, but it was stopped due to potassium concerns. She is already on a high-protein diet. Discharge Plan Triage Chief Complaint: Edema ED Provider: Robyn Calero Dx/Rx/DC Orders Clinical Impression: Hypoalbuminemia, Bilateral edema of lower extremity, Difficulty in walking Prescriptions: No Action [employer] Pro[employer]otics 5 billion cell powder in packet PO melatonin 5 mg tablet 5 mg PO HS PRN progestrone compound topical cholecalciferol (vitamin D3) 10 mcg/drop (400 unit/drop) drops 50 mcg PO DAILY sodium chloride 1 gram Tablet 1 g PO BID Qty: 60 0RF levothyroxine 50 mcg tablet 25 mcg PO .qd, 2 on Sundays Qty: 96 3RF Primary Care Provider: Loi De La Rosa Referrals: Loi De La Rosa MD [Primary Care Provider] - Disposition Disposition: Acute Care Hospital [facility]
--- NOTE | 2022-03-15 17:06 | US_ITS ---
STUDY: VENOUS DOPPLER ULTRASOUND - BILATERAL LOWER EXTREMITIES REASON FOR EXAM: Female, 57 years old. SWELLING TECHNIQUE: Ultrasound evaluation of the deep vein system to include farnsworth-scale imaging and compression was performed. Farnsworth-scale imaging and Doppler sonographic evaluation, including duplex spectral analysis and qualitative color flow sonography, was performed. 21 cine images were obtained , 9 spot images of the bilateral lower extremities were obtained with color flow augmentation and spontaneity. COMPARISON: 05.17.21 lower extremity venous ultrasound FINDINGS: RIGHT LEG Within the right common femoral, common femoral greater saphenous junction right superficial femoral vein from proximal to distal, popliteal, posterior tibial and peroneal veins there''s visualized compression without internal echoes. There is visualize color flow and spontaneity and augmentation obtained within the common femoral superficial femoral and popliteal veins. The deep femoral vein is not evaluated. There is partially visualized right lower extremity edema. LEFT LEG There is visualize compression in the left common femoral, greater saphenous junction, superficial femoral proximal middle and distal as well as the popliteal posterior tibial and peroneal veins. The deep femoral vein was not evaluated. Spontaneity augmentation and color flow was demonstrated in the common femoral superficial femoral mid and popliteal veins. There is partially visualized left lower extremity edema. US/Venous Duplex Imag/Nadeem Extrem IMPRESSION: No visualized deep venous thrombosis allowing for the aforementioned technique. Electronically Signed: Ambreen Mcgregor MD at 18:07 EST Reading Location ID and State: [facility] / [place] Tel , Service support ,
[2022-03-15 17:18] LABS: Absolute Lymphocyte Count 0.53 X10^3/uL (0.83-4.51); Absolute Neutrophil Count 4.9 X10^3/uL (2.0-7.7); Basophil# 0.02 X10^3/uL; Basophil% 0.3 % (0-1); Eosinophil# 0.02 X10^3/uL; Eosinophils% 0.3 % (0-5); Hematocrit 33.8 % (37-47); Hemoglobin 11.5 g/dL (12.0-15.0); Lymphocyte # 0.53 X10^3/ul (0.83-4.51); Mean Corpuscular Hgb 31.9 pg (27.0-32.0); Mean Corpuscular Volume 93.9 fL (81-99); Mean Platelet Vol. 11.4 fl (6.2-12.0); Monocyte% 6.8 % (0-10); NRBC Flagged by Analyzer 0 % (0-5); Neutrophil # 4.92 X10^3/uL (2.7-7.7); Neutrophil % 83.4 % (47-70); POSITIVE DIFFERENTIAL YES; Platelet Count 219 K/mm3 (150-450); RBC Distribution Width CV 18.7 % (11.6-14.6); RBC Distribution Width SD 64.4 fl (35.1-43.9); White Blood Count 5.9 K/mm3 (4.4-11.0)
[2022-03-15 17:20] LABS: ALB/GLOB Ratio 0.7 RATIO (0.9-2.4); AST(SGOT) 69 U/L (15-37); Alanine Aminotransfer ALT/SGPT 72 U/L (13-56); Alkaline Phosphatase 66 U/L (45-117); Anion Gap 3 (5-15); BUN 32 mg/dL (7-18); BUN/Creat Ratio 41.8 RATIO (10-20); Calcium,Total 8.8 mg/dL (8.5-10.1); Chloride 104 mmol/L (98-107); Creatinine, Serum 0.76 mg/dL (0.55-1.02); EST Glomerular Filtration Rate 83 mL/min (>60); Est Glom Filt Rate - Afr Amer 100 mL/min (>60); Estimated Creatinine Clearance 88.32 ml/min; Glucose 88 mg/dL (74-106); Potassium 4.3 mmol/L (3.5-5.1); Sodium Level 139 mmol/L (136-145)
[2022-03-15 17:40] LABS: Differential Indicated SCAN CRITERIA MET
[2022-03-15 18:00] LABS: BNP,B-Type NATRIURETIC PEPTIDE 117.2 pg/mL (0-100)
[2022-03-15 18:17] LABS: Differential Comment SCANNED
--- NOTE | 2022-03-15 19:00 | PCA ---
EMERGENCY DOCUMENTATION
[2022-03-15 19:36] VITALS: BP 129/83; PULSE 59; RESP 18; TEMP 36.8; O2SAT 98
--- NOTE | 2022-03-15 19:45 | PCM.HP.STD ---
[facility] General Date of Admission: 03/15/22 Date of Service: 03/15/22 Chief Complaint: Severe edema and difficulty ambulating [facility] Narrative ANDREIA GALDAMEZ, is a 57 F who presents to the emergency room from home due to chief complaint of increased edema of her lower extremities up to her abdomen. Patient has a significant past medical history of edema previously and hypothyroidism for which she is receiving treatment. She has an ongoing work-up by gastroenterology and has been referred to rheumatology for possible polymyositis. Patient denies chest pain or shortness of breath but she does admit to having a great deal of anxiety due to her health conditions. She is on SSI and lives with her mother and takes care of her who is 88 years old. Laboratory studies are fairly unremarkable and ultrasound of lower extremities negative for DVT. Patient will be admitted to general medical floor placed on Lasix for diuresis and physical therapy to evaluate and treat for ambulation. 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 Obsessive compulsive disorder Osteoporosis Polypharmacy Home Medications sodium chloride 1 gram tablet 1 g PO BID #60 tabs 05/20/21 [Rx Last Taken Unknown] Lactobacillus rhamnosus GG 5 billion cell oral powder packet ([employer]biotics) PO 07/16/21 [History Last Taken Unknown] melatonin 5 mg tablet 5 mg PO HS PRN 07/16/21 [History Last Taken Unknown] progestrone compound topical 07/16/21 [History Last Taken Unknown] cholecalciferol (vitamin D3) 10 mcg/drop (400 unit/drop) oral drops 50 mcg PO DAILY 12/17/21 [History Last Taken Unknown] levothyroxine 50 mcg tablet 25 mcg PO .qd, 2 on Sundays #96 tabs 01/15/22 [Rx Last Taken Unknown] Allergy/AdvReac Type Severity Reaction Status Date / Time codeine Allergy Vomiting Verified 03/15/22 16:00 amoxicillin AdvReac Intermediate hot flash Verified 03/15/22 16:00 lactose AdvReac Vomiting Verified 03/15/22 16:00 Family History Mother Heart disease Hypothyroidism Father OCD (obsessive compulsive disorder) Social History household members: family housing: house Smoking Status: Never smoker alcohol intake: never substance use type: does not use ROS Constitutional Constitutional: Denies change in weight, chills or fever(s) Eyes Eyes: Denies change in vision ENT HEENT: Denies abnormal hearing Respiratory/Chest Respiratory/Chest: Denies shortness of breath at rest Genitourinary Genitourinary: Denies dysuria Musculoskeletal Musculoskeletal: Reports extremity pain Integumentary Integumentary: Denies jaundice Neurologic Neurologic: Reports abnormal gait Psychiatric Psychiatric: Reports anxiety Endocrine Endocrinology: Reports change in body appearance Vital Signs Vital Signs Vital Signs: 03/15/22 15:56 03/15/22 19:36 Temperature 98.2 F 98.2 F Temperature Source Temporal Temporal Pulse Rate 59 L 59 L Respiratory Rate 18 18 Blood Pressure 129/83 H 129/83 H Blood Pressure Mean 98 98 Pulse Ox 98 98 Oxygen Delivery Method Room Air Room Air Weight Weight: 165 lb Body Mass Index (BMI) 23.6 Physical Exam Const alert and oriented x3 General Appearance: cooperative HEENT normocephalic and head/scalp atraumatic Eyes PERRL Neck no lymphadenopathy Lymph Lymphatic: no lymphadenopathy noted and lymphedema severe (bilateral lower ext) Resp normal respiratory effort, normal air movement and clear to auscultation bilaterally Cardio regular rate, regular rhythm, S1 normal heart sound, S2 normal heart sound and no murmurs GI soft to palpation, non-tender and non-distended Extremity General Extremity: edema bilateral lower extremity Details: severe Skin General Skin Exam: no breakdown Neuro no focal motor deficits and no sensory deficits noted Psych thought process normal, cooperative and affect normal Mood & Affect: anxious Results Lab / Micro Data Result Diagrams: 03/15/22 16:52 03/15/22 16:52 Labs: Laboratory Results - last 24 hr 03/15/22 16:52: WBC 5.9, RBC 3.60 L, Hgb 11.5 L, Hct 33.8 L, MCV 93.9, MCH 31.9, MCHC 34.0, RDW Std Deviation 64.4 H, RDW Coeff of Shalini 18.7 H, Plt Count 219, MPV 11.4, Immature Gran % (Auto) 0.200, Neut % (Auto) 83.4 H, Lymph % (Auto) 9.0 L, [place] % (Auto) 6.8, Eos % (Auto) 0.3, Baso % (Auto) 0.3, Absolute Neuts (auto) 4.9, Absolute Lymphs (auto) 0.53 L, Nucleated RBC % 0, Differential Comment SCANNED 03/15/22 16:52: Sodium 139, Potassium 4.3, Chloride 104, Carbon Dioxide 32.0, Anion Gap 3 L, BUN 32 H, Creatinine 0.76, Estim Creat Clear Calc 88.32, Est GFR (MDRD) Af Amer 100, Est GFR (MDRD) Non-Af 83, BUN/Creatinine Ratio 41.8 H, Glucose 88, Calcium 8.8, Total Bilirubin 0.10 L, AST 69 H, ALT 72 H, Alkaline Phosphatase 66, Total Protein 5.0 L, Albumin 2.0 L, Globulin 3.0, Albumin/Globulin Ratio 0.7 L 03/15/22 16:52: B-Natriuretic Peptide 117.2 H Radiology Impression Venous Duplex 03/15/22 17:06 IMPRESSION: No visualized deep venous thrombosis allowing for the aforementioned technique. 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 Bilateral lower extremity edema and difficulty walking?admit patient to general medical floor start IV Lasix 20 mg IV twice daily. Patient can be maintained on a routine oral diet. We will have physical therapy evaluate and treat for activities of daily living in the a.m. 2. Hypothyroidism?check TSH, free T3 and free T4 3. Hypoalbuminemia?patient has had outpatient work-up with Dr. Lawrence who is veterinary x ray operator and has been referred for further outpatient work-up with rheumatology 4. DVT prophylaxis?low molecular weight heparin Charges/Coding Visit Charges Inpatient E&M: 70626 Init Hosp L3
[2022-03-15 20:42] LABS: Free T3 1.6 pg/mL (2.18-3.98); T4 Free Direct 1.15 ng/dL (0.76-1.46)
[2022-03-15 21:35] VITALS: BMI 23.2
[2022-03-15 21:47] VITALS: BP 131/80; PULSE 60; RESP 16; TEMP 36; O2SAT 94
[2022-03-15] MEDS: 0.9% Saline Lock 10 ML Syringe IV (22:54)
[2022-03-15] MEDS: MELATONIN 10 MG TABLET 5 MG PO (22:54)
[2022-03-15] MEDS: Furosemide 20 MG/2 ML VIAL IV (22:54)
[2022-03-15] MEDS: Sodium Chloride 1 GM Tablet PO (22:54)
--- NOTE | 2022-03-16 00:14 | NURSING ---
Emergency Documentation effective 03/15/20 @ 1950
[2022-03-16 02:52] VITALS: BP 92/63; PULSE 50; RESP 16; TEMP 35.6; O2SAT 99
[2022-03-16] MEDS: Levothyroxine 25 MCG TABLET PO (06:10)
[2022-03-16 07:04] LABS: Absolute Lymphocyte Count 0.64 X10^3/uL (0.83-4.51); Absolute Neutrophil Count 1.7 X10^3/uL (2.0-7.7); Basophil# 0.01 X10^3/uL; Basophil% 0.4 % (0-1); Eosinophil# 0.03 X10^3/uL; Eosinophils% 1.1 % (0-5); Hemoglobin 9.3 g/dL (12.0-15.0); Lymphocyte # 0.64 X10^3/ul (0.83-4.51); Lymphocyte % 23.3 % (19-41); Mean Corp Hgb Conc 34.4 g/dL (32-36); Mean Corpuscular Hgb 32.1 pg (27.0-32.0); Mean Corpuscular Volume 93.1 fL (81-99); Mean Platelet Vol. 11.6 fl (6.2-12.0); Monocyte# 0.37 X10^3/uL; Monocyte% 13.5 % (0-10); NRBC Flagged by Analyzer 0 % (0-5); Neutrophil # 1.69 X10^3/uL (2.7-7.7); Neutrophil % 61.3 % (47-70); Platelet Count 187 K/mm3 (150-450); RBC Distribution Width CV 18.5 % (11.6-14.6); RBC Distribution Width SD 62.1 fl (35.1-43.9); White Blood Count 2.8 K/mm3 (4.4-11.0)
--- NOTE | 2022-03-16 07:28 | PCM.PN.HOSP ---
Subjective Subjective Patient is being followed for bilateral lower extremity edema and abdominal swelling. She was last admitted on April 2021 for lower extremity edema and hypoalbuminemia and she later followed up with GI last visit In November 2021. She was told that her swelling is not from cirrhosis. She has mild elevated liver enzymes probably due to YANEZ. FibroScan was ordered. Autoantibodies c-ANCA p-ANCA were negative. Objective Data Objective Data Vital Signs: Vital Signs Temp Pulse Resp BP Pulse Ox O2 Del Method 96.0 F L 50 L 16 92/63 99 Room Air 03/16/22 02:52 03/16/22 02:52 03/16/22 02:52 03/16/22 02:52 03/16/22 02:52 03/16/22 02:52 Oxygen Delivery Method Room Air Weight: 161 lb 13.109 oz Body Mass Index (BMI) 23.2 Intake & Output: Intake and Output for Last 24 Hours 03/14/22 03/15/22 03/16/22 23:59 23:59 23:59 Intake Total 120 / 120 Output Total 1300 / 1300 800 / 800 Balance -1180 / -1180 -800 / -800 Lab / Micro Data Result Diagrams: 03/16/22 06:25 03/16/22 06:25 Labs: Laboratory Results - last 24 hr 03/15/22 16:52: WBC 5.9, RBC 3.60 L, Hgb 11.5 L, Hct 33.8 L, MCV 93.9, MCH 31.9, MCHC 34.0, RDW Std Deviation 64.4 H, RDW Coeff of Shalini 18.7 H, Plt Count 219, MPV 11.4, Immature Gran % (Auto) 0.200, Neut % (Auto) 83.4 H, Lymph % (Auto) 9.0 L, [place] % (Auto) 6.8, Eos % (Auto) 0.3, Baso % (Auto) 0.3, Absolute Neuts (auto) 4.9, Absolute Lymphs (auto) 0.53 L, Nucleated RBC % 0, Differential Comment SCANNED 03/15/22 16:52: Sodium 139, Potassium 4.3, Chloride 104, Carbon Dioxide 32.0, Anion Gap 3 L, BUN 32 H, Creatinine 0.76, Estim Creat Clear Calc 88.32, Est GFR (MDRD) Af Amer 100, Est GFR (MDRD) Non-Af 83, BUN/Creatinine Ratio 41.8 H, Glucose 88, Calcium 8.8, Total Bilirubin 0.10 L, AST 69 H, ALT 72 H, Alkaline Phosphatase 66, Total Protein 5.0 L, Albumin 2.0 L, Globulin 3.0, Albumin/Globulin Ratio 0.7 L 03/15/22 16:52: B-Natriuretic Peptide 117.2 H 03/15/22 16:52: TSH 11.10 H, Free T4 1.15, Free T3 pg/dL 1.6 L 03/16/22 06:25: WBC 2.8 L, RBC 2.90 L, Hgb 9.3 L, Hct 27.0 L, MCV 93.1, MCH 32.1 H, MCHC 34.4, RDW Std Deviation 62.1 H, RDW Coeff of Shalini 18.5 H, Plt Count 187, MPV 11.6, Immature Gran % (Auto) 0.400, Neut % (Auto) 61.3, Lymph % (Auto) 23.3, [place] % (Auto) 13.5 H, Eos % (Auto) 1.1, Baso % (Auto) 0.4, Absolute Neuts (auto) 1.7 L, Absolute Lymphs (auto) 0.64 L, Nucleated RBC % 0 Radiography Diagnostic Testing: Radiology Impression Venous Duplex 03/15/22 17:06 IMPRESSION: No visualized deep venous thrombosis allowing for the aforementioned technique. Electronically Signed: Ambreen Mcgregor MD at 18:07 EST Reading Location ID and State: [address] [place] [address] Tel , Service support , Physical Exam Narrative Physical exam General: Alert, Oriented x3, Cooperative, thin looking HEENT: Atraumatic, PERRLA, EOMI, Normocephalic Oral: No Gingival or Mucosal Lesions/ Ulcerations Neck: Supple, No JVD, Negative Carotid Bruits Lungs: Air entry diminished in bilateral lung bases. No crepitation/rhonchi. Lungs clear Cardiovascular: Regular rate, Regular Rhythm, Normal S1, Normal S2, No murmurs Abdomen: Bowel Sounds Present, Soft, Non Tender, moderate ascites, shifting dullness present. : No renal angle tenderness. No suprapubic tenderness. Extremities: Bilateral below thigh 3+ pitting edema, Capillary Refill Less than 3 Seconds Skin: No rashes, No breakdown Musculoskeletal: No Tenderness to Palpation of Joints or Extremities. Full ROM restricted due to lower extremity edema. Muscle strength 4/5 at major joints Neurological: Cranial nerves II-XII grossly intact, DTR 2+/4 and Symmetrical, Neuro grossly intact Psych/Mental Status: Flat affect. 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 1. Bilateral lower extremity edema, ascites/anasarca, exact etiology unclear?patient is being admitted in PCU floor as MedSurg status. She was last admitted on April 2021 for lower extremity edema and hypoalbuminemia and she later followed up with GI last visit in in November 2021. She was told that her swelling is not from cirrhosis. She has mild elevated liver enzymes probably due to YANEZ. FibroScan was ordered. Autoantibodies c-ANCA p-ANCA were negative. Platelet count has improved since April now normal. INR normal. Estimated creatinine clearance may be overestimated due to low muscle mass, 122 mL/min. Serum arsenic lead mercury and zinc level normal. Patient had hypogammaglobulinemia, IgG IgA IgM are low. AMA, ASMA were negative. Rheumatological autoantibodies negative. Hepatitis panel negative. 24-hour urine was collected in about 2 3 days ago and is still pending. Patient overall lab work was discussed in detail with patient and her sister near the bedside. Plan: Patient is started on Lasix. PT and OT to evaluate. The mechanical engineering director was consulted as patient was told to follow-up with nephrology and rheumatology as an outpatient. 2. Hypothyroidism?TSH 11.1 elevated. Free T4 normal. Free T3 low. It may be either euthyroid syndrome most likely or less likely subclinical hypothyroidism but free T4 is in mid normal. 3. Hypoalbuminemia?does not seem to be due to liver disease. May have undiagnosed rheumatological disease and patient was supposed to follow with solderer barrel ribs. 4. DVT prophylaxis?low molecular weight heparin Total time of the visit including total time spent in counseling or coordination of care, (more than 50% of the total time, spent in obtaining medical information from nurses and other ancillary care providers,explaining to the patient about labs, imaging, diagnosis and management of active complex medical conditions), review of medical record, clinical update to patient and her sister and discussion with mechanical engineering director, review of labs and imaging is 40 minutes. Charges/Coding Visit Charges Inpatient E&M: 23896 Subs Hosp L3
[2022-03-16 07:32] LABS: ALB/GLOB Ratio 0.7 RATIO (0.9-2.4); AST(SGOT) 55 U/L (15-37); Alanine Aminotransfer ALT/SGPT 57 U/L (13-56); Albumin, Serum 1.6 g/dL (3.2-5.0); Alkaline Phosphatase 51 U/L (45-117); Anion Gap 2 (5-15); BUN 27 mg/dL (7-18); Calcium,Total 8.2 mg/dL (8.5-10.1); Chloride 106 mmol/L (98-107); Creatinine, Serum 0.55 mg/dL (0.55-1.02); EST Glomerular Filtration Rate 121 mL/min (>60); Est Glom Filt Rate - Afr Amer 146 mL/min (>60); Estimated Creatinine Clearance 122.04 ml/min; Globulin 2.2 g/dL (2.2-4.2); Glucose 75 mg/dL (74-106); Magnesium 1.9 mg/dL (1.6-2.6); Potassium 3.7 mmol/L (3.5-5.1); Protein, Total 3.8 g/dL (6.4-8.2); Sodium Level 140 mmol/L (136-145)
[2022-03-16 08:50] VITALS: BP 106/70; PULSE 57; RESP 18; TEMP 36.4; O2SAT 98
[2022-03-16] MEDS: Sodium Chloride 1 GM Tablet PO ×2 (08:58→20:36)
[2022-03-16] MEDS: Cholecalciferol (VIT D3) 25 MCG TABLET (1,000 UNITS) 50 MCG PO (08:58)
[2022-03-16] MEDS: 0.9% Saline Lock 10 ML Syringe IV ×2 (08:59→20:37)
[2022-03-16] MEDS: Furosemide 20 MG/2 ML VIAL IV (09:01)
--- NOTE | 2022-03-16 13:45 | PCM.CONS.R ---
Documented by User: MITZY Jiménez 03/16/22 15:26 Assessment & Plan Assessment/Plan (1) Bilateral edema of lower extremity: PLAN: Plan We were consulted for evaluation of severe bilateral lower extremity edema. Albumin is 1.6. Patient's Creatinine <1mg/dL. Work up for edema ordered including 24hour urine protein. Lower extremity Dopplers negative for DVT. In November 2021 c-ANCA and p-ANCA <1:20, hepatitis panel negative. We will switch Lasix from 20 mg IV twice daily to 40 mg IV 3 times daily and monitor for response. Further orders forthcoming as hospitalization evolves. HPI Consult Data Date of Consult: 03/16/22 HPI Narrative HPI Narrative: ANDREIA GALDAMEZ, is a 57 F with past medical significant for hypothyroidism, SIADH (on sodium chloride tablets) and osteoporosis who presented to the emergency room for evaluation of worsening lower extremity edema with difficulty ambulating. Patient was admitted for further evaluation and treatment. Nephrology consulted for severe edema to bilateral legs. Patient has been recently following with GI for elevated liver enzymes and severe protein calorie malnutrition. Patient today reports she has been trying to consume at least 90 g of protein in her diet daily since last hospitalization in April 2021 when she was told that her protein levels were low. Patient reports after last hospitalization in April she was discharged home on Lasix which per patient report helped swelling and had been off Lasix until just recently. Patient reports she feels that she has at least 30 pounds of water weight gain to her legs patient denies any recent nausea or vomiting. No diarrhea. No NSAIDs. No hematuria or dysuria. Patient also stated that she has been referred to rheumatology for evaluation of myositis. 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 Obsessive compulsive disorder Osteoporosis Polypharmacy Home Medications Lactobacillus rhamnosus GG 5 billion cell oral powder packet ([employer] Probiotics) 1 cell PO DAILY PROBIOTIC 07/16/21 [History Last Taken 03/14/22] melatonin 5 mg tablet 5 mg PO HS PRN Insomnia 07/16/21 [History Last Taken 03/14/22] progestrone compound 1 applic topical DAILY HORMONE 07/16/21 [History Last Taken 03/14/22] digestive enzymes 1 tab PO TIDCM 03/15/22 [History Last Taken 03/14/22] levothyroxine 50 mcg tablet 25 mcg PO UD 03/15/22 [History Last Taken 03/14/22] Allergy/AdvReac Type Severity Reaction Status Date / Time codeine Allergy Vomiting Verified 03/15/22 16:00 amoxicillin AdvReac Intermediate hot flash Verified 03/15/22 16:00 lactose AdvReac Vomiting Verified 03/15/22 16:00 Family History Mother Heart disease Hypothyroidism Father OCD (obsessive compulsive disorder) Social History household members: family housing: house Smoking Status: Never smoker alcohol intake: never substance use type: does not use ROS ROS Narrative As in HPI and past medical history Physical Exam Narrative Alert and oriented x3, no apparent distress Lung sounds clear anteriorly and posteriorly. No wheezes, rhonchi or rales noted. On room air S1, S2, RRR Abdomen soft, nontender, positive bowel sounds 4+ pitting edema bilateral lower legs and feet Lab / Micro Data Result Diagrams: 03/16/22 06:25 03/16/22 06:25 Labs: Laboratory Results - last 24 hr 03/15/22 16:52: WBC 5.9, RBC 3.60 L, Hgb 11.5 L, Hct 33.8 L, MCV 93.9, MCH 31.9, MCHC 34.0, RDW Std Deviation 64.4 H, RDW Coeff of Shalini 18.7 H, Plt Count 219, MPV 11.4, Immature Gran % (Auto) 0.200, Neut % (Auto) 83.4 H, Lymph % (Auto) 9.0 L, [place] % (Auto) 6.8, Eos % (Auto) 0.3, Baso % (Auto) 0.3, Absolute Neuts (auto) 4.9, Absolute Lymphs (auto) 0.53 L, Nucleated RBC % 0, Differential Comment SCANNED 03/15/22 16:52: Sodium 139, Potassium 4.3, Chloride 104, Carbon Dioxide 32.0, Anion Gap 3 L, BUN 32 H, Creatinine 0.76, Estim Creat Clear Calc 88.32, Est GFR (MDRD) Af Amer 100, Est GFR (MDRD) Non-Af 83, BUN/Creatinine Ratio 41.8 H, Glucose 88, Calcium 8.8, Total Bilirubin 0.10 L, AST 69 H, ALT 72 H, Alkaline Phosphatase 66, Total Protein 5.0 L, Albumin 2.0 L, Globulin 3.0, Albumin/Globulin Ratio 0.7 L 03/15/22 16:52: B-Natriuretic Peptide 117.2 H 03/15/22 16:52: TSH 11.10 H, Free T4 1.15, Free T3 pg/dL 1.6 L 03/16/22 06:25: WBC 2.8 L, RBC 2.90 L, Hgb 9.3 L, Hct 27.0 L, MCV 93.1, MCH 32.1 H, MCHC 34.4, RDW Std Deviation 62.1 H, RDW Coeff of Shalini 18.5 H, Plt Count 187, MPV 11.6, Immature Gran % (Auto) 0.400, Neut % (Auto) 61.3, Lymph % (Auto) 23.3, [place] % (Auto) 13.5 H, Eos % (Auto) 1.1, Baso % (Auto) 0.4, Absolute Neuts (auto) 1.7 L, Absolute Lymphs (auto) 0.64 L, Nucleated RBC % 0 03/16/22 06:25: Sodium 140, Potassium 3.7, Chloride 106, Carbon Dioxide 32.0, Anion Gap 2 L, BUN 27 H, Creatinine 0.55, Estim Creat Clear Calc 122.04, Est GFR (MDRD) Af Amer 146, Est GFR (MDRD) Non-Af 121, BUN/Creatinine Ratio 49.0 H, Glucose 75, Calcium 8.2 L, Magnesium 1.9, Total Bilirubin 0.20, AST 55 H, ALT 57 H, Alkaline Phosphatase 51, Total Protein 3.8 L, Albumin 1.6 L, Globulin 2.2, Albumin/Globulin Ratio 0.7 L Radiology Impression Venous Duplex 03/15/22 17:06 IMPRESSION: No visualized deep venous thrombosis allowing for the aforementioned technique. Electronically Signed: Ambreen Mcgregor MD at 18:07 EST Reading Location ID and State: [facility] [place] Tel , Service support , Documented by User: Dr. Caty Fuller MD 03/16/22 18:29 Assessment & Plan Assessment/Plan (1) Bilateral edema of lower extremity: PLAN: Plan We were consulted for evaluation of severe bilateral lower extremity edema. Albumin is 1.6. Patient's Creatinine <1mg/dL. Work up for edema ordered including 24hour urine protein. Lower extremity Dopplers negative for DVT. In November 2021 c-ANCA and p-ANCA <1:20, hepatitis panel negative. We will switch Lasix from 20 mg IV twice daily to 40 mg IV 3 times daily and monitor for response. Further orders forthcoming as hospitalization evolves. 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 Obsessive compulsive disorder Osteoporosis Polypharmacy Home Medications Lactobacillus rhamnosus GG 5 billion cell oral powder packet ([employer] Probiotics) 1 cell PO DAILY PROBIOTIC 07/16/21 [History Last Taken 03/14/22] melatonin 5 mg tablet 5 mg PO HS PRN Insomnia 07/16/21 [History Last Taken 03/14/22] progestrone compound 1 applic topical DAILY HORMONE 07/16/21 [History Last Taken 03/14/22] digestive enzymes 1 tab PO TIDCM 03/15/22 [History Last Taken 03/14/22] levothyroxine 50 mcg tablet 25 mcg PO UD 03/15/22 [History Last Taken 03/14/22] Allergy/AdvReac Type Severity Reaction Status Date / Time codeine Allergy Vomiting Verified 03/15/22 16:00 amoxicillin AdvReac Intermediate hot flash Verified 03/15/22 16:00 lactose AdvReac Vomiting Verified 03/15/22 16:00 Family History Mother Heart disease Hypothyroidism Father OCD (obsessive compulsive disorder) Social History household members: family housing: house Smoking Status: Never smoker alcohol intake: never substance use type: does not use Lab / Micro Data Result Diagrams: 03/16/22 06:25 03/16/22 06:25
[2022-03-16 14:50] VITALS: BP 118/79; PULSE 57; RESP 18; TEMP 36.6; O2SAT 98
--- NOTE | 2022-03-16 15:34 | CHAPLAIN ---
Type of Pastoral Visit _x__ Initial Visit ___ Follow-up Visit ___ On-call Visit ___ General Patient Visit ___ Spiritual Assessment ___ Family Conference ___ Bereavement ___ Rapid Response ___ Code Blue ___ Other (describe below) Pastoral Care Referral From _x__ Patient ___ Family ___ Nurse ___ Physician ___ Manager Environmental Services ___ Public Housing Interviewer ___ Other (describe below) Sacrament/Intervention _x__ Active listening ___ Anointing ___ Mosque ___ Bereavement ___ Communion _x__ Lizette exploration ___ _x__ Life review _x__ Prayer ___ Reconciliation ___ Sacrament of Sick _x__ Supportive presence ___ Wedding ___ Other (describe below) Pastoral Comments patient is very welcoming of spiritual care support; pt sets aside her menu to talk with this rabble furnace tender and asks her sister to leave the room; pt talks at length about her stresses and physical ailments; pt also admits to OCD and has been under therapist previously; pt lives with her elderly mother and does much care for the mother; pt identifies herself as a Orthodox and later asks for a Bible to read while she is in this hospital; pt gives much life review and her perspective on personal issues and bahai lizette; pt acknowledges the difficulty of grief and the impact of COVID isolation; pt expresses gratitude for being able to talk about her issues; pt asks for prayer and then also prayers for herself audibly
--- NOTE | 2022-03-16 15:45 | CASEMGMT ---
RN AHMET Face to Face with patient for initial transition planning/care coordination assessment. RN CM introduced self and role at [facility]. Patient lying in bed, alert and oriented, sister at bedside. Patient willing to participate in assessment and is able to answer all questions appropriately. Care providers, pharmacy, and demographics verified. Patient wishes to discharge home, denies need for home health at this time. Will monitor for outpatient therapy at discharge. Patient states she has no further needs or concerns at this time. CM to follow for discharge planning needs that may arise. PCP: Loi De La Rosa Specialists: Friend, GI; , commercial loan analyst [facility] Retail at discharge Insurance: [employer] Prescription Benefit: yes Living Will/HPOA: yes, mother Shayla Glez LNOK: mother, sister, brother Living Arrangements: Patient lives with mother in a singlet story home with 2 steps and railing to enter the home. Patient states she is independent at home. Transportation: self, [employer] DME/HHC: Patient states she has cane, shower chair, and grab bars at home. No previous HHC or SNF. Will monitor for outpatient therapy at discharge. Disposition Plan: Patient to discharge home with family support and follow-up plans in place. Elicia KHAN, RN, CM
[2022-03-16 20:31] VITALS: BP 113/79; PULSE 66; RESP 20; TEMP 36.1; O2SAT 97
[2022-03-16] MEDS: MELATONIN 10 MG TABLET 5 MG PO (20:36)
[2022-03-16] MEDS: Furosemide 40 MG/4 ML Vial IV (20:37)
[2022-03-17 02:06] VITALS: BP 102/77; PULSE 59; RESP 18; TEMP 36.4; O2SAT 96
--- NOTE | 2022-03-17 03:01 | NURSING ---
pt aware of 24 hour urine collection, pt noted to void without difficulty at this time. per policy first urine is discarded.
[2022-03-17 05:59] VITALS: BP 96/69; PULSE 62; RESP 18; TEMP 36.3; O2SAT 94
[2022-03-17] MEDS: 0.9% Saline Lock 10 ML Syringe IV ×2 (06:04→20:35)
[2022-03-17] MEDS: Furosemide 40 MG/4 ML Vial IV ×3 (06:04→20:35)
[2022-03-17] MEDS: Levothyroxine 25 MCG TABLET PO (06:09)
[2022-03-17 06:12] LABS: ALB/GLOB Ratio 0.8 RATIO (0.9-2.4); AST(SGOT) 58 U/L (15-37); Alanine Aminotransfer ALT/SGPT 59 U/L (13-56); Albumin, Serum 1.5 g/dL (3.2-5.0); Alkaline Phosphatase 50 U/L (45-117); Anion Gap 3 (5-15); BUN 28 mg/dL (7-18); BUN/Creat Ratio 43.3 RATIO (10-20); Chloride 106 mmol/L (98-107); Creatinine, Serum 0.65 mg/dL (0.55-1.02); EST Glomerular Filtration Rate 101 mL/min (>60); Est Glom Filt Rate - Afr Amer 122 mL/min (>60); Estimated Creatinine Clearance 103.26 ml/min; Globulin 1.9 g/dL (2.2-4.2); Glucose 78 mg/dL (74-106); Potassium 3.6 mmol/L (3.5-5.1); Protein, Total 3.4 g/dL (6.4-8.2); Sodium Level 142 mmol/L (136-145)
[2022-03-17] MEDS: Potassium Chloride Oral Tablet 20 MEQ 40 MEQ PO (08:31)
[2022-03-17] MEDS: Sodium Chloride 1 GM Tablet PO (08:31)
[2022-03-17] MEDS: Cholecalciferol (VIT D3) 25 MCG TABLET (1,000 UNITS) 50 MCG PO (08:31)
[2022-03-17 12:00] VITALS: BP 92/69; PULSE 76; RESP 18; TEMP 36.6; O2SAT 97
--- NOTE | 2022-03-17 12:35 | PCM.PN.REN ---
Documented by User: MITZY Jiménez 03/17/22 12:41 Subjective Subjective Denies any complaints. No overnight events Objective Data Objective Data Vital Signs: Vital Signs Temp Pulse Resp BP Pulse Ox O2 Del Method 97.9 F 76 18 92/69 97 Room Air 03/17/22 12:00 03/17/22 12:00 03/17/22 12:00 03/17/22 12:00 03/17/22 12:00 03/17/22 12:00 Oxygen Delivery Method Room Air Weight: 73.4 kg Body Mass Index (BMI) 23.2 Intake & Output: Intake and Output for Last 24 Hours 03/15/22 03/16/22 03/17/22 23:59 23:59 23:59 Intake Total 120 / 120 480 / 580 250 / 250 Output Total 1300 / 1300 2500 / 3700 3275 / 3275 Balance -1180 / -1180 -2020 / -3120 -3025 / -3025 Lab / Micro Data Result Diagrams: 03/16/22 06:25 03/17/22 04:20 Labs: Laboratory Results - last 24 hr 03/17/22 04:20: Sodium 142, Potassium 3.6, Chloride 106, Carbon Dioxide 33.0 H, Anion Gap 3 L, BUN 28 H, Creatinine 0.65, Estim Creat Clear Calc 103.26, Est GFR (MDRD) Af Amer 122, Est GFR (MDRD) Non-Af 101, BUN/Creatinine Ratio 43.3 H, Glucose 78, Calcium 8.0 L, Total Bilirubin 0.10 L, AST 58 H, ALT 59 H, Alkaline Phosphatase 50, Total Protein 3.4 L, Albumin 1.5 L, Globulin 1.9 L, Albumin/Globulin Ratio 0.8 L Physical Exam Narrative Alert and oriented x3, no apparent distress Lung sounds clear anteriorly and posteriorly. No wheezes, rhonchi or rales noted. On room air S1, S2, RRR Abdomen soft, nontender, positive bowel sounds 4+ pitting edema bilateral lower legs and feet Assessment & Plan Assessment/Plan (1) Bilateral edema of lower extremity: PLAN: Plan We were consulted for evaluation of severe bilateral lower extremity edema. Albumin is 1.5. Patient's Creatinine <1mg/dL. Work up for edema ordered including 24hour urine protein. 01/2022 Urine random protein <6. Lower extremity Dopplers negative for DVT. In November 2021 c-ANCA and p-ANCA <1:20, hepatitis panel negative. Started lasix 40 mg IV 3 times daily and having good response. Potassium is 3.6, on potassium supplement 40 M EQ daily. Labs ordered for morning. Recommend daily standing weights. Documented by User: Dr. Caty Fuller MD 03/17/22 15:17 Objective Data Lab / Micro Data Result Diagrams: 03/16/22 06:25 03/17/22 04:20 Physical Exam Narrative Alert and oriented x3, no apparent distress Lung sounds clear anteriorly and posteriorly. No wheezes, rhonchi or rales noted. On room air S1, S2, RRR Abdomen soft, nontender, positive bowel sounds 4+ pitting edema bilateral lower legs and feet Assessment & Plan Assessment/Plan (1) Bilateral edema of lower extremity: PLAN: Plan We were consulted for evaluation of severe bilateral lower extremity edema. Albumin is 1.5. Patient's Creatinine <1mg/dL. Work up for edema ordered including 24hour urine protein. 01/2022 Urine random protein <6. Lower extremity Dopplers negative for DVT. In November 2021 c-ANCA and p-ANCA <1:20, hepatitis panel negative. Started lasix 40 mg IV 3 times daily and having good response. Potassium is 3.6, on potassium supplement 40 M EQ daily. Labs ordered for morning. Recommend daily standing weights. Attending addendum No significant proteinuria. Venous Dopplers negative. Serologies negative. UPEP negative, one of the results was read as Bence-Gallegos positive. However there is no proteinuria on 24-hour collection hence I do not think it significant. We will check a kappa/lambda ratio. At this point etiology of anasarca unclear. No proteinuria to suggest nephrotic syndrome. No cirrhosis on right upper quadrant abdominal ultrasound. Discussed with hospitalist Dr. Jimenes. Echocardiogram will be ordered. Continue Lasix for now. Urine output is fairly good, she made about 3.5 L of urine. Discussed with family at bedside
--- NOTE | 2022-03-17 15:14 | ECHOD_ITS ---
Reason For Study: CHF Procedure This was a 2D Doppler, Color Flow transthoracic echocardiogram. The exam was of adequate technical quality. Exam performed portable in patient room. Left Ventricle Normal LV size. Left ventricular systolic function is normal. The estimated ejection fraction is 65 %. No evidence for diastolic dysfunction. No regional wall motion abnormalities noted. Right Ventricle Normal RV size. Normal systolic function. Atria Normal left atrium. Normal right atrium. No doppler evidence for ASD. Mitral Valve There is no mitral annular calcification. Normal mitral valve. Mild (1+) mitral valve insufficiency. Tricuspid Valve Normal tricuspid valve. Mild tricuspid valve insufficiency. Right ventricular systolic pressure estimated to be 28 mmHg. Aortic Valve Trisinus/trileaflet aortic valve. Normal aortic valve. Pulmonic Valve The pulmonic valve is not well visualized. Great Vessels Normal sized aortic root. Pericardium/Pleural No pericardial effusion. MMode/2D Measurements & Calculations LVIDd: 4.5 cm IVSd: 0.72 cm Ao root diam: 2.9 cm LVIDs: 2.7 cm LVPWd: 0.82 cm RVDd: 2.3 cm FS: 38.9 % LAV(MOD-bp): 40.7 ml LVAd ap4: 20.6 cm2 SV(MOD-sp4): 33.6 ml LAV(MOD-bp) Indexed: 21.4 ml/m2 LVLd ap4: 7.3 cm LAV(MOD-sp2): 46.2 ml EDV(MOD-sp4): 48.6 ml LAV(MOD-sp4): 29.3 ml EDV(sp4-el): 49.2 ml LVAs ap4: 10.3 cm2 LVLs ap4: 6.4 cm ESV(MOD-sp4): 15.0 ml ESV(sp4-el): 14.2 ml EF(MOD-sp4): 69.2 % EF(sp4-el): 71.1 % SV(sp4-el): 35.0 ml LA A4 area: 12.7 cm2 LA dimension(2D): 3.4 cm RA A4 area: 6.3 cm2 Doppler Measurements & Calculations MV E max [place]: 71.2 cm/sec Lat Peak E' [place]: 10.2 cm/sec Med Peak E' [place]: 8.2 cm/sec MV A max [place]: 94.7 cm/sec E/E' lat: 7.0 E/E' med: 8.6 MV E/A: 0.75 Ao V2 max: 138.4 cm/sec LV V1 max: 118.1 cm/sec PA V2 max: 91.8 cm/sec Ao max P.7 mmHg LV V1 max P.6 mmHg Ao V2 mean: 93.4 cm/sec Ao mean P.8 mmHg Ao V2 VTI: 30.3 cm TR max [place]: 249.6 cm/sec TR max P.9 mmHg ECHO/Echo Complete Interpretation Summary Left ventricular systolic function is normal. The estimated ejection fraction is 65 %. Mild (1+) mitral valve insufficiency. Mild tricuspid valve insufficiency. Right ventricular systolic pressure estimated to be 28 mmHg. No evidence for diastolic dysfunction. Ordering Physician: Mumtaz Jimenes Referring Physician: Loi De La Rosa Performed By: Madhavi Juarez, OLIVIA, RVT
--- NOTE | 2022-03-17 15:15 | PN.HOSP_ITS ---
Subjective Subjective Follow-up for bilateral lower extremities edema Objective Data Objective Data Vital Signs: Vital Signs Temp Pulse Resp BP Pulse Ox O2 Del Method 97.9 F 76 18 92/69 97 Room Air 03/17/22 12:00 03/17/22 12:00 03/17/22 12:00 03/17/22 12:00 03/17/22 12:00 03/17/22 12:00 Oxygen Delivery Method Room Air Weight: 161 lb 13.109 oz Body Mass Index (BMI) 23.2 Intake & Output: Intake and Output for Last 24 Hours 03/15/22 03/16/22 03/17/22 23:59 23:59 23:59 Intake Total 120 / 120 480 / 580 250 / 250 Output Total 1300 / 1300 2500 / 3700 3275 / 3275 Balance -1180 / -1180 -2020 / -3120 -3025 / -3025 Lab / Micro Data Result Diagrams: 03/16/22 06:25 03/17/22 04:20 Labs: Laboratory Results - last 24 hr 03/17/22 04:20: Sodium 142, Potassium 3.6, Chloride 106, Carbon Dioxide 33.0 H, Anion Gap 3 L, BUN 28 H, Creatinine 0.65, Estim Creat Clear Calc 103.26, Est GFR (MDRD) Af Amer 122, Est GFR (MDRD) Non-Af 101, BUN/Creatinine Ratio 43.3 H, Glucose 78, Calcium 8.0 L, Total Bilirubin 0.10 L, AST 58 H, ALT 59 H, Alkaline Phosphatase 50, Total Protein 3.4 L, Albumin 1.5 L, Globulin 1.9 L, Albumin/Globulin Ratio 0.8 L Physical Exam Narrative Seen and examined. No acute event overnight. Physical exam General: Alert, Oriented x3, Cooperative, thin looking HEENT: Atraumatic, PERRLA, EOMI, Normocephalic Oral: No Gingival or Mucosal Lesions/ Ulcerations Neck: Supple, No JVD, Negative Carotid Bruits Lungs: Air entry diminished in bilateral lung bases. No crepitation/rhonchi. Lungs clear Cardiovascular: Regular rate, Regular Rhythm, Normal S1, Normal S2, No murmurs Abdomen: Bowel Sounds Present, Soft, Non Tender, moderate ascites, shifting dullness present. : No renal angle tenderness. No suprapubic tenderness. Extremities: Bilateral below thigh 3+ pitting edema, Capillary Refill Less than 3 Seconds Skin: No rashes, No breakdown Musculoskeletal: No Tenderness to Palpation of Joints or Extremities. Full ROM restricted due to lower extremity edema. Muscle strength 4/5 at major joints Neurological: Cranial nerves II-XII grossly intact, DTR 2+/4 and Symmetrical, Neuro grossly intact Psych/Mental Status: Flat affect. 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 1. Bilateral lower extremity edema, ascites/anasarca, exact etiology unclear?patient is being admitted in PCU floor as MedSurg status. She was last admitted on April 2021 for lower extremity edema and hypoalbuminemia and she later followed up with GI last visit in in November 2021. She was told that her swelling is not from cirrhosis. She has mild elevated liver enzymes probably due to YANEZ. FibroScan was ordered. Autoantibodies c-ANCA p-ANCA were negative. Platelet count has improved since April now normal. INR normal. Estimated creatinine clearance may be overestimated due to low muscle mass, 122 mL/min. Serum arsenic lead mercury and zinc level normal. Patient had hypogammaglobulinemia, IgG IgA IgM are low. AMA, ASMA were negative. Rheu matological autoantibodies negative. Hepatitis panel negative. 24-hour urine was collected in about 2 3 days ago and is still pending. Patient overall lab work was discussed in detail with patient and her sister near the bedside. Plan: Patient is started on Lasix. PT and OT to evaluate. The silk top hat body maker was consulted as patient was told to follow-up with nephrology and rheumatology as an outpatient. 03/17: Discussed with the silk top hat body maker in detail. 24-hour urine collection on 03/13 reported 55 mg., Albumin 25%, beta globulin 52%. 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 Serum kappa lambda ratio is ordered. 2D echo is ordered. 2. Hypothyroidism?TSH 11.1 elevated. Free T4 normal. Free T3 low. It may be either euthyroid syndrome most likely or less likely subclinical hypothyroidism but free T4 is in mid normal. 3. Hypoalbuminemia?does not seem to be due to liver disease. May have undiagnosed rheumatological disease and patient was supposed to follow with necktie turner. 4. DVT prophylaxis?low molecular weight heparin Total time of the visit including total time spent in counseling or coordination of care, (more than 50% of the total time, spent in obtaining medical information from nurses and other ancillary care providers,explaining to the patient about labs, imaging, diagnosis and management of active complex medical conditions), review of medical record, clinical update to patient and her sister and discussion with silk top hat body maker, review of labs and imaging is 40 minutes. Charges/Coding Visit Charges Inpatient E&M: 77213 Subs Hosp L3
[2022-03-17 17:45] VITALS: BP 115/80; PULSE 70; RESP 18; TEMP 36.8; O2SAT 97
[2022-03-17 20:32] VITALS: BP 130/83; PULSE 84; RESP 20; TEMP 35.8; O2SAT 99
[2022-03-17] MEDS: MELATONIN 10 MG TABLET 5 MG PO (20:35)
[2022-03-18 02:04] VITALS: BP 103/77; PULSE 69; RESP 18; TEMP 36.4; O2SAT 98
[2022-03-18 05:33] VITALS: BP 103/71; PULSE 66; RESP 18; TEMP 36.5; O2SAT 93
[2022-03-18] MEDS: Furosemide 40 MG/4 ML Vial IV ×3 (05:35→21:54)
[2022-03-18] MEDS: Levothyroxine 25 MCG TABLET PO (05:35)
[2022-03-18] MEDS: 0.9% Saline Lock 10 ML Syringe IV ×2 (05:35→21:54)
[2022-03-18 07:07] LABS: ALB/GLOB Ratio 0.7 RATIO (0.9-2.4); AST(SGOT) 61 U/L (15-37); Alanine Aminotransfer ALT/SGPT 68 U/L (13-56); Albumin, Serum 1.8 g/dL (3.2-5.0); Alkaline Phosphatase 63 U/L (45-117); Anion Gap 3 (5-15); BUN 30 mg/dL (7-18); BUN/Creat Ratio 39.3 RATIO (10-20); Calcium,Total 8.8 mg/dL (8.5-10.1); Chloride 106 mmol/L (98-107); Creatinine, Serum 0.76 mg/dL (0.55-1.02); EST Glomerular Filtration Rate 83 mL/min (>60); Est Glom Filt Rate - Afr Amer 100 mL/min (>60); Estimated Creatinine Clearance 88.32 ml/min; Globulin 2.6 g/dL (2.2-4.2); Glucose 90 mg/dL (74-106); Potassium 3.6 mmol/L (3.5-5.1); Protein, Total 4.4 g/dL (6.4-8.2); Sodium Level 144 mmol/L (136-145)
[2022-03-18] MEDS: Cholecalciferol (VIT D3) 25 MCG TABLET (1,000 UNITS) 50 MCG PO (08:26)
[2022-03-18] MEDS: Potassium Chloride Oral Tablet 20 MEQ 40 MEQ PO (08:26)
[2022-03-18 09:30] VITALS: BP 115/69; PULSE 67; RESP 18; TEMP 36.2; O2SAT 99
--- NOTE | 2022-03-18 10:43 | PCM.PN.REN ---
Subjective Subjective No complaints. No overnight events. Objective Data Objective Data Vital Signs: Vital Signs Temp Pulse Resp BP Pulse Ox O2 Del Method 97.2 F L 67 18 115/69 99 Room Air 03/18/22 09:30 03/18/22 09:30 03/18/22 09:30 03/18/22 09:30 03/18/22 09:30 03/18/22 09:30 Oxygen Delivery Method Room Air Weight: 73.4 kg Body Mass Index (BMI) 23.2 Intake & Output: Intake and Output for Last 24 Hours 03/16/22 03/17/22 03/18/22 23:59 23:59 23:59 Intake Total 480 / 580 400 / 450 100 / 100 Output Total 2500 / 3700 3325 / 3325 1000 / 1000 Balance -2020 / -3120 -2925 / -2875 -900 / -900 Lab / Micro Data Result Diagrams: 03/16/22 06:25 03/18/22 06:09 Labs: Laboratory Results - last 24 hr 03/18/22 06:09: Sodium 144, Potassium 3.6, Chloride 106, Carbon Dioxide 35.0 H, Anion Gap 3 L, BUN 30 H, Creatinine 0.76, Estim Creat Clear Calc 88.32, Est GFR (MDRD) Af Amer 100, Est GFR (MDRD) Non-Af 83, BUN/Creatinine Ratio 39.3 H, Glucose 90, Calcium 8.8, Total Bilirubin 0.10 L, AST 61 H, ALT 68 H, Alkaline Phosphatase 63, Total Protein 4.4 L, Albumin 1.8 L, Globulin 2.6, Albumin/Globulin Ratio 0.7 L Radiography Diagnostic Testing: Radiology Impression Echocardiogram 03/17/22 15:14 Interpretation Summary Left ventricular systolic function is normal. The estimated ejection fraction is 65 %. Mild (1+) mitral valve insufficiency. Mild tricuspid valve insufficiency. Right ventricular systolic pressure estimated to be 28 mmHg. No evidence for diastolic dysfunction. Ordering Physician: Jalil, Mumtaz Referring Physician: Loi De La Rosa Performed By: Madhavi Juarez, RDCS, RVT Physical Exam Narrative Alert and oriented x3, no apparent distress Lung sounds clear anteriorly and posteriorly. No wheezes, rhonchi or rales noted. On room air S1, S2, RRR Abdomen soft, nontender, positive bowel sounds 4+ pitting edema bilateral lower legs and feet Assessment & Plan Assessment/Plan (1) Bilateral edema of lower extremity: PLAN: Plan - severe bilateral lower extremity edema. Albumin is 1.5. Patient's Creatinine <1mg/dL. 01/2022 Urine random protein <6. Lower extremity Dopplers negative for DVT. In November 2021 c-ANCA and p-ANCA <1:20, hepatitis panel negative. Started lasix 40 mg IV 3 times daily and having good response. No significant proteinuria, 24-hour urine total protein 55. Venous Dopplers negative. Serologies negative. UPEP negative, one of the results was read as Bence-Gallegos positive. Ordered kappa/lambda ratio, pending. At this point etiology of anasarca unclear. No proteinuria to suggest nephrotic syndrome. No cirrhosis on right upper quadrant abdominal ultrasound. Echocardiogram: Normal LV size, left ventricular systolic function normal, EF 65%, no evidence for diastolic dysfunction, no wall motion abnormalities noted. Continue Lasix for now. Recommend heme consult. Discussed with Dr. Jimenes.
--- NOTE | 2022-03-18 12:20 | CHAPLAIN ---
Type of Pastoral Visit ___ Initial Visit _x__ Follow-up Visit ___ On-call Visit ___ General Patient Visit ___ Spiritual Assessment ___ Family Conference ___ Bereavement ___ Rapid Response ___ Code Blue ___ Other (describe below) Pastoral Care Referral From _x__ Patient ___ Family ___ Nurse ___ Physician ___ Biomed Tech ___ Continuous Absorption Process Operator ___ Other (describe below) Sacrament/Intervention _x__ Active listening ___ Anointing ___ Voodoo ___ Bereavement ___ Communion ___ Lizette exploration ___ ___ Life review _x__ Prayer ___ Reconciliation ___ Sacrament of Sick ___ Supportive presence ___ Wedding ___ Other (describe below) Pastoral Comments patient reports having good care, some answers, and words from God as she reads her Bible and prays; pt expresses thanks for the spiritual care support and mentions that many are praying for her which is encouraging to her too
--- NOTE | 2022-03-18 13:23 | PN.HOSP_ITS ---
Subjective Subjective Follow-up for bilateral lower extremity edema, etiology unclear Objective Data Objective Data Vital Signs: Vital Signs Temp Pulse Resp BP Pulse Ox O2 Del Method 97.2 F L 67 18 115/69 99 Room Air 03/18/22 09:30 03/18/22 09:30 03/18/22 09:30 03/18/22 09:30 03/18/22 09:30 03/18/22 10:00 Oxygen Delivery Method Room Air Weight: 161 lb 13.109 oz Body Mass Index (BMI) 23.2 Intake & Output: Intake and Output for Last 24 Hours 03/16/22 03/17/22 03/18/22 23:59 23:59 23:59 Intake Total 480 / 580 400 / 450 400 / 400 Output Total 2500 / 3700 3325 / 3325 1000 / 1000 Balance -2020 / -3120 -2925 / -2875 -600 / -600 Lab / Micro Data Result Diagrams: 03/16/22 06:25 03/18/22 06:09 Labs: Laboratory Results - last 24 hr 03/18/22 06:09: Sodium 144, Potassium 3.6, Chloride 106, Carbon Dioxide 35.0 H, Anion Gap 3 L, BUN 30 H, Creatinine 0.76, Estim Creat Clear Calc 88.32, Est GFR (MDRD) Af Amer 100, Est GFR (MDRD) Non-Af 83, BUN/Creatinine Ratio 39.3 H, Glucose 90, Calcium 8.8, Total Bilirubin 0.10 L, AST 61 H, ALT 68 H, Alkaline Phosphatase 63, Total Protein 4.4 L, Albumin 1.8 L, Globulin 2.6, Albumin/Globu dariana Ratio 0.7 L Radiography Diagnostic Testing: Radiology Impression Echocardiogram 03/17/22 15:14 Interpretation Summary Left ventricular systolic function is normal. The estimated ejection fraction is 65 %. Mild (1+) mitral valve insufficiency. Mild tricuspid valve insufficiency. Right ventricular systolic pressure estimated to be 28 mmHg. No evidence for diastolic dysfunction. Ordering Physician: Mumtaz Jimenes Referring Physician: Loi De La Rosa Performed By: Madhavi Juarez, RDCS, RVT Physical Exam Narrative Seen and examined. No acute event overnight. Physical exam General: Alert, Oriented x3, Cooperative, thin looking HEENT: Atraumatic, PERRLA, EOMI, Normocephalic Oral: No Gingival or Mucosal Lesions/ Ulcerations Neck: Supple, No JVD, Negative Carotid Bruits Lungs: Air entry diminished in bilateral lung bases. No crepitation/rhonchi. Lungs clear Cardiovascular: Regular rate, Regular Rhythm, Normal S1, Normal S2, No murmurs Abdomen: Bowel Sounds Present, Soft, Non Tender, moderate ascites, shifting dullness present. : No renal angle tenderness. No suprapubic tenderness. Extremities: Bilateral below thigh 2+ pitting edema, Capillary Refill Less than 3 Seconds Skin: No rashes, No breakdown Musculoskeletal: No Tenderness to Palpation of Joints or Extremities. Full ROM restricted due to lower extremity edema. Muscle strength 4/5 at major joints Neurological: Cranial nerves II-XII grossly intact, DTR 2+/4 and Symmetrical, Neuro grossly intact Psych/Mental Status: Flat affect. 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 1. Bilateral lower extremity edema, ascites/anasarca, exact etiology unclear?p atient is being admitted in PCU floor as MedSurg status. She was last admitted on April 2021 for lower extremity edema and hypoalbuminemia and she later followed up with GI last visit in in November 2021. She was told that her swelling is not from cirrhosis. She has mild elevated liver enzymes probably due to YANEZ. FibroScan was ordered. Autoantibodies c-ANCA p-ANCA were negative. Platelet count has improved since April now normal. INR normal. Estimated creatinine clearance may be overestimated due to low muscle mass, 122 mL/min. Serum arsenic lead mercury and zinc level normal. Patient had hypogammaglobulinemia, IgG IgA IgM are low. AMA, ASMA were negative. Rheumatological autoantibodies negative. Hepatitis panel negative. 24-hour urine was collected in about 2 3 days ago and is still pending. Patient overall lab work was discussed in detail with patient and her sister near the bedside. Plan: Patient is started on Lasix. PT and OT to evaluate. The mobile home servicer was consulted as patient was told to follow-up with nephrology and rheumatology as an outpatient. 03/17: Discussed with the mobile home servicer in detail. 24-hour urine collection on 03/13 reported 55 mg., Albumin 25%, beta globulin 52%. 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 Serum kappa lambda ratio is ordered. 2D echo is ordered. 03/18: Patient is diuresing well on furosemide 40 mg IV every 8 hourly. Bicarb 35. I will change to every 12 hourly. 2D echo does not show any acute abnormality to account for heart failure. The result discussed with the pat iereese. Patient has Bence-Gallegos proteinuria and therefore nephrology suggested hematology consult. Regulatory Internship Dr. Kolb consulted. . 2. Hypothyroidism?TSH 11.1 elevated. Free T4 normal. Free T3 low. It may be either euthyroid syndrome most likely or less likely subclinical hypothyroidism but free T4 is in mid normal. 3. Hypoalbuminemia?does not seem to be due to liver disease. May have und iagnosed rheumatological disease and patient was supposed to follow with cloth mercerizer operator. 4. DVT prophylaxis?low molecular weight heparin Total time of the visit including total time spent in counseling or coordination of care, (more than 50% of the total time, spent in obtaining medical informatio n from nurses and other ancillary care providers,explaining to the patient about labs, imaging, diagnosis and management of active complex medical conditions), review of medical record, clinical update to patient and her sister and discussion with mobile home servicer, review of labs and imaging is 40 minutes. Charges/Coding Visit Charges Inpatient E&M: 45077 Subs Hosp L2
[2022-03-18 13:54] LABS: Absolute Lymphocyte Count 0.57 X10^3/uL (0.83-4.51); Absolute Neutrophil Count 3.2 X10^3/uL (2.0-7.7); Basophil# 0.02 X10^3/uL; Basophil% 0.5 % (0-1); Eosinophil# 0.05 X10^3/uL; Eosinophils% 1.1 % (0-5); Hematocrit 27.8 % (37-47); Hemoglobin 9.3 g/dL (12.0-15.0); Lymphocyte # 0.57 X10^3/ul (0.83-4.51); Lymphocyte % 12.9 % (19-41); Mean Corp Hgb Conc 33.5 g/dL (32-36); Mean Corpuscular Hgb 32.1 pg (27.0-32.0); Mean Corpuscular Volume 95.9 fL (81-99); Monocyte# 0.59 X10^3/uL; Monocyte% 13.4 % (0-10); NRBC Flagged by Analyzer 0 % (0-5); Neutrophil # 3.17 X10^3/uL (2.7-7.7); Neutrophil % 71.9 % (47-70); POSITIVE DIFFERENTIAL YES; POSITIVE MORPHOLOGY YES; Platelet Count 233 K/mm3 (150-450); RBC Distribution Width CV 19.1 % (11.6-14.6); White Blood Count 4.4 K/mm3 (4.4-11.0)
--- NOTE | 2022-03-18 13:54 | CT_ITS ---
EXAM: CT CHEST, ABDOMEN AND PELVIS WITH INTRAVENOUS CONTRAST CLINICAL INDICATION: looking for tumor/plasmacytoma/MEDIASTINUM TECHNIQUE: Helically acquired images were obtained of the chest, abdomen and pelvis with intravenous contrast. This CT exam was performed using one or more of the following dose reduction techniques: automated exposure control, adjustment of the mA and/or kV according to patient size, and/or use of iterative reconstruction technique. This report was created using [employer] report generation technology. CONTRAST: Oral and amp; IV Gastrografin and amp; 100mL Isovue-300 COMPARISON: None. FINDINGS: CHEST: LUNGS AND PLEURAL SPACES: There are small bilateral pleural effusions with minimal bibasilar consolidation. No mass. No pneumothorax. HEART: Unremarkable. Heart size is normal. No pericardial effusion. No significant coronary artery calcifications. MEDIASTINUM: Unremarkable. No mediastinal or hilar adenopathy. Esophagus is unremarkable. No hiatal hernia. THYROID: Unremarkable. No thyroid lesions. ABDOMEN: LIVER: Unremarkable. Homogeneous. No focal mass. GALLBLADDER AND BILE DUCTS: Unremarkable. No calcified gallstones. No gallbladder distention or wall edema. No intra- or extrahepatic biliary ductal dilation. PANCREAS: Unremarkable. No focal cystic or solid mass. SPLEEN: Unremarkable. Normal size without focal cystic or solid mass. ADRENALS: Unremarkable. No nodules. KIDNEYS AND URETERS: Unremarkable. Normal renal size and position. No hydronephrosis. STOMACH AND BOWEL: There is moderate stool in the colon which may represent constipation. No stomach or bowel distention. No focal inflammatory change. PELVIS: APPENDIX: No evidence of acute appendicitis. BLADDER: Unremarkable. REPRODUCTIVE: Unremarkable as visualized. No mass. CHEST, ABDOMEN and PELVIS: INTRAPERITONEAL SPACE: There is free fluid seen within the right upper quadrant may represent ascites. No free air. BONES/JOINTS: Unremarkable. No suspicious lytic or blastic abnormality. SOFT TISSUES: Unremarkable. No discrete abdominal or pelvic wall hernia. VASCULATURE: Unremarkable. Aorta is non-dilated. No aortic dissection. No obvious central pulmonary embolism although this study was not performed with the pulmonary embolism protocol. LYMPH NODES: Unremarkable. No enlarged lymph nodes. CT/CT Chest, Abd, Pel w/Contrast IMPRESSION: 1. Small bilateral effusions with minimal bibasilar atelectasis. 2. Small amount of free fluid in the abdomen which may represent ascites. 3. Moderate stool in the colon which may represent constipation. No other acute abnormalities are seen within the chest, abdomen or pelvis. Electronically Signed: Christ Major MD at 17:33 EST ,
[2022-03-18 14:01] LABS: Differential Indicated SCAN CRITERIA MET
[2022-03-18 14:23] LABS: Anisocytosis 1+; Target Cells 1+
[2022-03-18 14:24] LABS: Schistocytes RARE
[2022-03-18 15:25] VITALS: BP 114/67; PULSE 71; RESP 20; TEMP 36.5; O2SAT 96
--- NOTE | 2022-03-18 18:08 | CON.PCM.ON_ITS ---
Assessment & Plan Assessment/Plan (1) Anasarca: Status: Acute Code(s): R60.1 - Generalized edema Plan: This is due to protein calorie malnutrition with decreased immunoglobulins, albumin, edema of the lower extremities, ascites and pleural effusion. Suggest continuation of high-protein diet. (2) Anemia: Status: Acute Code(s): D64.9 - Anemia, unspecified Qualifiers: Anemia type: unspecified type Qualified Code(s): D64.9 - Anemia, unspecified Plan: Patient had iron deficiency before, ferritin was 20 in October 2021. Suggests iron profile and IV replacement. (3) Abnormal presence of protein in urine: Status: Acute Code(s): R80.9 - Proteinuria, unspecified Plan: Patient had UPEP on 03/11/2022 which showed Bence-Gallegos proteins, a second sample on 03/13/2022 was negative. I would disregard the first result and consider the second results which is normal. I will suggest doing serum free light chains to rule out light chain deposit disease. Will not follow further on this admission unless new problems arise. Thank you. HPI Consult Data Date of Service:: 03/18/22 PCP / Referring Provider: Dr. Loi De La Rosa MD Attending: Dr. Mumtaz Jimenes MD Chief Complaint Chief Complaint: Asked to see patient for abnormal protein in Urine. History of Present Illness History of Present Illness: 57-year-old woman was admitted with increasing lower extremity edema, generalized weakness. She has not had work-up for cirrhosis which was negative. She had work-up to rule out nephrotic syndrome, UPEP on 03/11/2022 showed Bence-Gallegos protein. Another 24-hour urine done on 03/13/2022 with UPEP showed no Bence-Gallegos proteins. Consultation was requested to rule out hematologic problem/plasma cell dyscrasia. 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 Obsessive compulsive disorder Osteoporosis Polypharmacy Home Medications Lactobacillus rhamnosus GG 5 billion cell oral powder packet (Culturelle Kids Probiotics) 1 cell PO DAILY PROBIOTIC 07/16/21 [History Last Taken 03/14/22] melatonin 5 mg tablet 5 mg PO HS PRN Insomnia 07/16/21 [History Last Taken 03/14/22] progestrone compound 1 applic topical DAILY HORMONE 07/16/21 [History Last Taken 03/14/22] digestive enzymes 1 tab PO TIDCM 03/15/22 [History Last Taken 03/14/22] levothyroxine 50 mcg tablet 25 mcg PO UD 03/15/22 [History Last Taken 03/14/22] Allergy/AdvReac Type Severity Reaction Status Date / Time codeine Allergy Vomiting Verified 03/15/22 16:00 amoxicillin AdvReac Intermediate hot flash Verified 03/15/22 16:00 lactose AdvReac Vomiting Verified 03/15/22 16:00 Family History Mother Heart disease Hypothyroidism Father OCD (obsessive compulsive disorder) Social History household members: family housing: house Smoking Status: Never smoker alcohol intake: never substance use type: does not use Physical Exam Const alert, oriented x3 and no apparent distress HEENT normocephalic and oropharynx normal Eyes PERRL, conjunctivae normal and no scleral icterus Neck no lymphadenopathy Lymph Lymphatic: no lymphadenopathy noted Chest inspection of chest normal Resp normal respiratory effort and clear to auscultation bilaterally Cardio regular rate, regular rhythm, S1 normal heart sound, S2 normal heart sound and no murmurs GI normal to inspection, nondistended, normoactive bowel sounds Extremity Extremity Narrative: +pitting edema of lower extremities. Skin no rashes or lesions noted Neuro CN's II-XII intact bilaterally and moves all extremities Psych cooperative Vital Signs Temperature 97.7 F L 03/18/22 15:25 Temperature Source Temporal 03/18/22 15:25 Pulse Rate 71 03/18/22 15:25 Pulse Strength Weak (1+) 03/17/22 20:33 Respiratory Rate 20 H 03/18/22 15:25 Respiratory Effort 03/18/22 14:00 Respiratory Depth Normal 03/18/22 14:00 Respiratory Pattern Normal 03/18/22 14:00 Blood Pressure 114/67 03/18/22 15:25 Blood Pressure Mean 82 03/18/22 15:25 Blood Pressure Source Monitor 03/18/22 15:25 Blood Pressure Position Sitting 03/18/22 15:25 Blood Pressure Location Right Arm 03/18/22 15:25 Pulse Ox 96 03/18/22 15:25 Oxygen Delivery Method Room Air 03/18/22 15:25 Laboratory Results - last 24 hr 03/18/22 06:09: Sodium 144, Potassium 3.6, Chloride 106, Carbon Dioxide 35.0 H, Anion Gap 3 L, BUN 30 H, Creatinine 0.76, Estim Creat Clear Calc 88.32, Est GFR (MDRD) Af Amer 100, Est GFR (MDRD) Non-Af 83, BUN/Creatinine Ratio 39.3 H, Glucose 90, Calcium 8.8, Total Bilirubin 0.10 L, AST 61 H, ALT 68 H, Alkaline Phosphatase 63, Total Protein 4.4 L, Albumin 1.8 L, Globulin 2.6, Albumin/Globulin Ratio 0.7 L 03/18/22 13:48: WBC 4.4, RBC 2.90 L, Hgb 9.3 L, Hct 27.8 L, MCV 95.9, MCH 32.1 H , MCHC 33.5, RDW Std Deviation 67.0 H, RDW Coeff of Shalini 19.1 H, Plt Count 233, MPV 11.0, Immature Gran % (Auto) 0.200, Neut % (Auto) 71.9 H, Lymph % (Auto) 12.9 L, [place] % (Auto) 13.4 H, Eos % (Auto) 1.1, Baso % (Auto) 0.5, Absolute Neuts (auto) 3.2, Absolute Lymphs (auto) 0.57 L, Nucleated RBC % 0, Anisocytosis 1+, Target Cells 1+, Schistocytes RARE Diagnostic Data Venous Duplex 03/15/22 17:06 IMPRESSION: No visualized deep venous thrombosis allowing for the aforementioned technique. Electronically Signed: Ambreen Mcgregor MD at 18:07 EST , Echocardiogram 03/17/22 15:14 Interpretation Summary Left ventricular systolic function is normal. The estimated ejection fraction is 65 %. Mild (1+) mitral valve insufficiency. Mild tricuspid valve insufficiency. Right ventricular systolic pressure estimated to be 28 mmHg. No evidence for diastolic dysfunction. Ordering Physician: Mumtaz Jimenes Referring Physician: Loi De La Rosa Performed By: Madhavi Juarez, OLIVIA, RVT Chest/Abdomen/Pelvis CT 03/18/22 13:54 IMPRESSION: 1. Small bilateral effusions with minimal bibasilar atelectasis. 2. Small amount of free fluid in the abdomen which may represent ascites. 3. Moderate stool in the colon which may represent constipation. No other acute abnormalities are seen within the chest, abdomen or pelvis. Electronically Signed: Christ Major MD at 17:33 EST , Charges/Coding Visit Charges Office Visits / Consults: [id number] IP Consult L4
[2022-03-18 21:50] VITALS: BP 98/69; PULSE 70; RESP 16; TEMP 36.6; O2SAT 95
[2022-03-18] MEDS: MELATONIN 10 MG TABLET 5 MG PO (21:54)
[2022-03-19 03:48] VITALS: BP 92/69; PULSE 69; RESP 18; TEMP 36.4; O2SAT 100
[2022-03-19] MEDS: Furosemide 40 MG/4 ML Vial IV (05:47)
[2022-03-19] MEDS: Levothyroxine 25 MCG TABLET PO (05:47)
[2022-03-19 07:06] LABS: Absolute Lymphocyte Count 0.74 X10^3/uL (0.83-4.51); Absolute Neutrophil Count 2.2 X10^3/uL (2.0-7.7); Basophil# 0.02 X10^3/uL; Basophil% 0.5 % (0-1); Eosinophil# 0.07 X10^3/uL; Eosinophils% 1.9 % (0-5); Hematocrit 26.9 % (37-47); Hemoglobin 9.3 g/dL (12.0-15.0); Lymphocyte # 0.74 X10^3/ul (0.83-4.51); Lymphocyte % 20.3 % (19-41); Mean Corp Hgb Conc 34.6 g/dL (32-36); Mean Corpuscular Hgb 32.9 pg (27.0-32.0); Mean Corpuscular Volume 95.1 fL (81-99); Mean Platelet Vol. 10.8 fl (6.2-12.0); Monocyte# 0.57 X10^3/uL; Monocyte% 15.7 % (0-10); NRBC Flagged by Analyzer 0 % (0-5); Neutrophil # 2.23 X10^3/uL (2.7-7.7); Neutrophil % 61.3 % (47-70); POSITIVE MORPHOLOGY YES; Platelet Count 225 K/mm3 (150-450); RBC Distribution Width CV 19.1 % (11.6-14.6); RBC Distribution Width SD 66.2 fl (35.1-43.9); Red Blood Count 2.83 M/mm3 (4.2-5.4); White Blood Count 3.6 K/mm3 (4.4-11.0)
[2022-03-19 07:13] LABS: Differential Indicated SCAN CRITERIA MET
[2022-03-19 07:36] LABS: Anisocytosis 2+
[2022-03-19 07:41] LABS: Anion Gap 2 (5-15); BUN 27 mg/dL (7-18); BUN/Creat Ratio 36.9 RATIO (10-20); Calcium,Total 8.8 mg/dL (8.5-10.1); Chloride 105 mmol/L (98-107); Creatinine, Serum 0.73 mg/dL (0.55-1.02); EST Glomerular Filtration Rate 87 mL/min (>60); Est Glom Filt Rate - Afr Amer 105 mL/min (>60); Estimated Creatinine Clearance 91.95 ml/min; Glucose 85 mg/dL (74-106); Potassium 3.5 mmol/L (3.5-5.1); Sodium Level 143 mmol/L (136-145)
[2022-03-19] MEDS: Potassium Chloride Oral Tablet 20 MEQ 40 MEQ PO (08:23)
--- NOTE | 2022-03-19 09:16 | PN.HOSP_ITS ---
Subjective Subjective Follow-up for bilateral lower extremity edema, etiology unclear Objective Data Objective Data Vital Signs: Vital Signs Temp Pulse Resp BP Pulse Ox O2 Del Method 97.6 F L 69 18 92/69 100 Room Air 03/19/22 03:48 03/19/22 03:48 03/19/22 03:48 03/19/22 03:48 03/19/22 03:48 03/19/22 03:48 Oxygen Delivery Method Room Air Weight: 161 lb 13.109 oz Body Mass Index (BMI) 23.2 Intake & Output: Intake and Output for Last 24 Hours 03/17/22 03/18/22 03/19/22 23:59 23:59 23:59 Intake Total 400 / 450 1400 / 1400 Output Total 3325 / 3325 1600 / 1600 1800 / 1800 Balance -2925 / -2875 -200 / -200 -1800 / -1800 Lab / Micro Data Result Diagrams: 03/19/22 06:08 03/19/22 06:08 Labs: Laboratory Results - last 24 hr 03/18/22 13:48: WBC 4.4, RBC 2.90 L, Hgb 9.3 L, Hct 27.8 L, MCV 95.9, MCH 32.1 H , MCHC 33.5, RDW Std Deviation 67.0 H, RDW Coeff of Shalini 19.1 H, Plt Count 233, MPV 11.0, Immature Gran % (Auto) 0.200, Neut % (Auto) 71.9 H, Lymph % (Auto) 12.9 L, [place] % (Auto) 13.4 H, Eos % (Auto) 1.1, Baso % (Auto) 0.5, Absolute Neuts (auto) 3.2, Absolute Lymphs (auto) 0.57 L, Nucleated RBC % 0, Anisocytosis 1+, Target Cells 1+, Schistocytes RARE 03/19/22 06:08: Sodium 143, Potassium 3.5, Chloride 105, Carbon Dioxide 36.0 H, Anion Gap 2 L, BUN 27 H, Creatinine 0.73, Estim Creat Clear Calc 91.95, Est GFR (MDRD) Af Amer 105, Est GFR (MDRD) Non-Af 87, BUN/Creatinine Ratio 36.9 H, Glucose 85, Calcium 8.8 03/19/22 06:08: WBC 3.6 L, RBC 2.83 L, Hgb 9.3 L, Hct 26.9 L, MCV 95.1, MCH 32.9 H, MCHC 34.6, RDW Std Deviation 66.2 H, RDW Coeff of Shalini 19.1 H, Plt Count 225, MPV 10.8, Immature Gran % (Auto) 0.300, Neut % (Auto) 61.3, Lymph % (Auto) 20.3, [place] % (Auto) 15.7 H, Eos % (Auto) 1.9, Baso % (Auto) 0.5, Absolute Neuts (auto) 2.2, Absolute Lymphs (auto) 0.74 L, Nucleated RBC % 0, Anisocytosis 2+ Radiography Diagnostic Testing: Radiology Impression Chest/Abdomen/Pelvis CT 03/18/22 13:54 IMPRESSION: 1. Small bilateral effusions with minimal bibasilar atelectasis. 2. Small amount of free fluid in the abdomen which may represent ascites. 3. Moderate stool in the colon which may represent constipation. No other acute abnormalities are seen within the chest, abdomen or pelvis. Electronically Signed: Christ Major MD at 17:33 EST , Physical Exam Narrative Seen and examined. No acute event overnight. Physical exam General: Alert, Oriented x3, Cooperative, thin looking HEENT: Atraumatic, PERRLA, EOMI, Normocephalic Oral: No Gingival or Mucosal Lesions/ Ulcerations Neck: Supple, No JVD, Negative Carotid Bruits Lungs: Air entry diminished in bilateral lung bases. No crepitation/rhonchi. Lungs clear Cardiovascular: Regular rate, Regular Rhythm, Normal S1, Normal S2, No murmurs Abdomen: Bowel Sounds Present, Soft, Non Tender, moderate ascites, shifting dullness present. : No renal angle tenderness. No suprapubic tenderness. Extremities: Bilateral below thigh 2+ pitting edema, Capillary Refill Less than 3 Seconds Skin: No rashes, No breakdown Musculoskeletal: No Tenderness to Palpation of Joints or Extremities. Full ROM restricted due to lower extremity edema. Muscle strength 4/5 at major joints Neurological: Cranial nerves II-XII grossly intact, DTR 2+/4 and Symmetrical, Neuro grossly intact Psych/Mental Status: Flat affect. 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 1. Bilateral lower extremity edema, ascites/anasarca, exact etiology unclear?patient is being admitted in PCU floor as MedSurg status. She was last admitted on April 2021 for lower extremity edema and hypoalbuminemia and she later followed up with GI last visit in in November 2021. She was told that her swelling is not from cirrhosis. She has mild elevated liver enzymes probably due to YANEZ. FibroScan was ordered. Autoantibodies c-ANCA p-ANCA were negative. Platelet count has improved since April now normal. INR normal. Estimated creatinine clearance may be overestimated due to low muscle mass, 122 mL/min. Serum arsenic lead mercury and zinc level normal. Patient had hypogammaglobulinemia, IgG IgA IgM are low. AMA, ASMA were negative. Rheumatological autoantibodies negative. Hepatitis panel negative. 24-hour urine was collected in about 2 3 days ago and is still pending. Patient overall lab work was discussed in detail with patient and her sister near the bedside. Plan: Patient is started on Lasix. PT and OT to evaluate. The engineering inspection assistant was consulted as patient was told to follow-up with nephrology and rheumatology as an outpatient. 03/17: Discussed with the engineering inspection assistant in detail. 24-hour urine collection on 03/13 reported 55 mg., Albumin 25%, beta globulin 52%. 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 Serum kappa lambda ratio is ordered. 2D echo is ordered. 03/18: Patient is diuresing well on furosemide 40 mg IV every 8 hourly. Bicarb 35. I will change to every 12 hourly. 2D echo does not show any acute abnormality to account for heart failure. The result discussed with the patient. Patient has Bence-Gallegos proteinuria and therefore nephrology suggested hematology consult. [employer] Specialist Dr. Kolb consulted. 03/19: Discussed in detail with patient and her sister over the phone. Patient's sister not satisfied with the explanation of oncologist. I tried to explain that the first urine sample was random which showed Ilya-Gallegos protein. Second urine sample which was 24-hour urine collection did not show dangerous protein. She argues that 24-hour urine collection was not complete therefore hard to believe within normal. Free kappa lambda quantitative light chain ratio pending. Retention of urine 24-hour total protein 24-hour urine shows 55 which is in normal range therefore no proteinuria. M spike was not observed. On, and says no abnormalities protein or proteinuria found. Dr. Kolb feels her lower extremity edema is due to protein calorie malnutrition. IV Lasix changed to Bumex 1 mg p.o. twice daily today. Anticipate discharge tomorrow on oral Bumex to see the response of oral diuretic. 2. Hypothyroidism?TSH 11.1 elevated. Free T4 normal. Free T3 low. It may be either euthyroid syndrome most likely or less likely subclinical hypothyroidism but free T4 is in mid normal. 3. Hypoalbuminemia?does not seem to be due to liver disease. May have undiagnosed rheumatological disease and patient was supposed to follow with load tester. 4. DVT prophylaxis?low molecular weight heparin Total time of the visit including total time spent in counseling or coordination of care, (more than 50% of the total time, spent in obtaining medical information from nurses and other ancillary care providers,explaining to the patient about labs, imaging, diagnosis and management of active complex medical conditions), review of medical record, clinical update to patient and her sister and discussion with engineering inspection assistant, and salmon gillnet vessel operator review of labs and imaging is 45 minutes. Charges/Coding Visit Charges Inpatient E&M: 73294 Subs Hosp L3
[2022-03-19 09:45] VITALS: BP 91/66; PULSE 64; RESP 20; TEMP 36.3; O2SAT 99
[2022-03-19 11:23] LABS: Ferritin 11 ng/mL (8-252); Iron 56 ug/dL (50-170); Iron Binding Capacity,Total 298 ug/dL (250-450); PERCENT IRON SATURATION 18.8 % (15.0-55.0)
--- NOTE | 2022-03-19 13:01 | PN.RENAL_ITS ---
Subjective Subjective No new complaints. Lower extremity edema appears to be better. Objective Data Objective Data Vital Signs: Vital Signs Temp Pulse Resp BP Pulse Ox O2 Del Method 97.3 F L 64 20 H 91/66 99 Room Air 03/19/22 09:45 03/19/22 09:45 03/19/22 09:45 03/19/22 09:45 03/19/22 09:45 03/19/22 10:28 Oxygen Delivery Method Room Air Weight: 73.4 kg Body Mass Index (BMI) 23.2 Intake & Output: Intake and Output for Last 24 Hours 03/17/22 03/18/22 03/19/22 23:59 23:59 23:59 Intake Total 400 / 450 1400 / 1400 Output Total 3325 / 3325 1600 / 1600 1800 / 1800 Balance -2925 / -2875 -200 / -200 -1800 / -1800 Lab / Micro Data Result Diagrams: 03/19/22 06:08 03/19/22 06:08 Labs: Laboratory Results - last 24 hr 03/18/22 13:48: WBC 4.4, RBC 2.90 L, Hgb 9.3 L, Hct 27.8 L, MCV 95.9, MCH 32.1 H , MCHC 33.5, RDW Std Deviation 67.0 H, RDW Coeff of Shalini 19.1 H, Plt Count 233, MPV 11.0, Immature Gran % (Auto) 0.200, Neut % (Auto) 71.9 H, Lymph % (Auto) 12.9 L, [place] % (Auto) 13.4 H, Eos % (Auto) 1.1, Baso % (Auto) 0.5, Absolute Neuts (auto) 3.2, Absolute Lymphs (auto) 0.57 L, Nucleated RBC % 0, Anisocytosis 1+, Target Cells 1+, Schistocytes RARE 03/19/22 06:08: Sodium 143, Potassium 3.5, Chloride 105, Carbon Dioxide 36.0 H, Anion Gap 2 L, BUN 27 H, Creatinine 0.73, Estim Creat Clear Calc 91.95, Est GFR (MDRD) Af Amer 105, Est GFR (MDRD) Non-Af 87, BUN/Creatinine Ratio 36.9 H, Glucose 85, Calcium 8.8 03/19/22 06:08: WBC 3.6 L, RBC 2.83 L, Hgb 9.3 L, Hct 26.9 L, MCV 95.1, MCH 32.9 H, MCHC 34.6, RDW Std Deviation 66.2 H, RDW Coeff of Shalini 19.1 H, Plt Count 225, MPV 10.8, Immature Gran % (Auto) 0.300, Neut % (Auto) 61.3, Lymph % (Auto) 20.3, [place] % (Auto) 15.7 H, Eos % (Auto) 1.9, Baso % (Auto) 0.5, Absolute Neuts (auto) 2.2, Absolute Lymphs (auto) 0.74 L, Nucleated RBC % 0, Anisocytosis 2+ 03/19/22 06:08: Iron 56, TIBC 298, Iron Saturation 18.8, Ferritin 11 Radiography Diagnostic Testing: Radiology Impression Chest/Abdomen/Pelvis CT 03/18/22 13:54 IMPRESSION: 1. Small bilateral effusions with minimal bibasilar atelectasis. 2. Small amount of free fluid in the abdomen which may represent ascites. 3. Moderate stool in the colon which may represent constipation. No other acute abnormalities are seen within the chest, abdomen or pelvis. Electronically Signed: Christ Major MD at 17:33 EST , Physical Exam Narrative Alert and oriented x3, no apparent distress Lung sounds clear anteriorly and posteriorly. No wheezes, rhonchi or rales noted. On room air S1, S2, RRR Abdomen soft, nontender, positive bowel sounds pitting edema bilateral lower legs and feet Assessment & Plan Assessment/Plan (1) Bilateral edema of lower extremity: PLAN: Plan - severe bilateral lower extremity edema. Albumin is 1.5. Patient's Creatinine <1mg/dL. 01/2022 Urine random protein <6. Lower extremity Dopplers negative for DVT. In November 2021 c-ANCA and p-ANCA <1:20, hepatitis panel negative. Started lasix 40 mg IV 3 times daily and having good response. No significant proteinuria, 24-hour urine total protein 55. Venous Dopplers negative. Serologies negative. UPEP negative, one of the results was read as Bence-Gallegos positive. Ordered kappa/lambda ratio, pending. No proteinuria to suggest nephrotic syndrome. No cirrhosis on right upper quadrant abdominal ultrasound. Echocardiogram: Normal LV size, left ventricular systolic function normal, EF 65%, no evidence for diastolic dysfunction, no wall motion abnormalities noted. She had 2 urine collections and one of them was read as positive for Bence-Gallegos proteins. Was seen by hematology and was not considered significant. In summary anasarca is likely related to low albumin. At this point I would probably blame the low albumin on malabsorption syndrome since she does not appear to lose albumin in the urine. She does follow with gastroenterology. Plan DC IV Lasix Add oral bumetanide Continue oral potassium at current dose No further work-up from nephrology standpoint Okay to make discharge plans Discussed with hospitalist
--- NOTE | 2022-03-19 14:31 | NURSING ---
Report called to nurse Stephani on MS3, will assume care of pt as she is transferred to the floor at this time
[2022-03-19 15:19] VITALS: BP 98/69; PULSE 70; RESP 16; TEMP 36.4; O2SAT 97
--- NOTE | 2022-03-19 15:46 | NURSING ---
This RN taking over patients care at 15:00.
[2022-03-19] MEDS: Bumetanide 0.5 MG Tablet 1 MG PO ×2 (17:06→21:15)
[2022-03-19 20:01] VITALS: BP 125/76; PULSE 59; RESP 18; TEMP 36.7; O2SAT 100
[2022-03-19 21:07] LABS: Free Kappa Light Chains 39.7 mg/L (3.3-19.4); Free Lambda Light Chains 257.4 mg/L (5.7-26.3)
[2022-03-19] MEDS: MELATONIN 10 MG TABLET 5 MG PO (21:15)
[2022-03-20 02:00] VITALS: BP 108/70; PULSE 54; RESP 18; TEMP 36.4; O2SAT 100
[2022-03-20] MEDS: Levothyroxine 25 MCG TABLET PO (05:29)
[2022-03-20 05:56] LABS: Absolute Lymphocyte Count 0.93 X10^3/uL (0.83-4.51); Absolute Neutrophil Count 2.2 X10^3/uL (2.0-7.7); Basophil# 0.02 X10^3/uL; Basophil% 0.5 % (0-1); Eosinophil# 0.08 X10^3/uL; Eosinophils% 2.1 % (0-5); Hematocrit 27.1 % (37-47); Hemoglobin 8.8 g/dL (12.0-15.0); Lymphocyte # 0.93 X10^3/ul (0.83-4.51); Lymphocyte % 24.5 % (19-41); Mean Corp Hgb Conc 32.5 g/dL (32-36); Mean Corpuscular Hgb 31.3 pg (27.0-32.0); Mean Corpuscular Volume 96.4 fL (81-99); Mean Platelet Vol. 11.2 fl (6.2-12.0); Monocyte# 0.56 X10^3/uL; Monocyte% 14.7 % (0-10); NRBC Flagged by Analyzer 0 % (0-5); Neutrophil % 57.9 % (47-70); POSITIVE MORPHOLOGY YES; Platelet Count 244 K/mm3 (150-450); RBC Distribution Width CV 18.9 % (11.6-14.6); RBC Distribution Width SD 67.5 fl (35.1-43.9); Red Blood Count 2.81 M/mm3 (4.2-5.4); White Blood Count 3.8 K/mm3 (4.4-11.0)
[2022-03-20 06:12] LABS: Differential Indicated SCAN CRITERIA MET
[2022-03-20 06:53] LABS: Anisocytosis 2+; Differential Comment SCANNED; Macrocytosis 1+; Microcytosis 1+
[2022-03-20 07:58] VITALS: BP 106/68; PULSE 54; RESP 16; TEMP 36.6; O2SAT 97
[2022-03-20] MEDS: Potassium Chloride Oral Tablet 20 MEQ 40 MEQ PO (08:23)
[2022-03-20] MEDS: Bumetanide 0.5 MG Tablet 1 MG PO (10:08)
[2022-03-20] MEDS: Cholecalciferol (VIT D3) 25 MCG TABLET (1,000 UNITS) 50 MCG PO (10:08)
--- NOTE | 2022-03-20 11:29 | PCM.PN.REN ---
Subjective Subjective Follow-up on anasarca, due to hypoalbuminemia. Started on Bumex, reports improvement in edema. Objective Data Objective Data Vital Signs: Vital Signs Temp Pulse Resp BP Pulse Ox O2 Del Method 97.8 F 54 L 16 106/68 97 Room Air 03/20/22 07:58 03/20/22 07:58 03/20/22 07:58 03/20/22 07:58 03/20/22 07:58 03/20/22 07:58 Oxygen Delivery Method Room Air Weight: 73.4 kg Body Mass Index (BMI) 23.2 Intake & Output: Intake and Output for Last 24 Hours 03/18/22 03/19/22 03/20/22 23:59 23:59 23:59 Intake Total 1400 / 1400 550 / 800 300 / 300 Output Total 1600 / 1600 1800 / 1800 1000 / 1000 Balance -200 / -200 -1250 / -1000 -700 / -700 Lab / Micro Data Attestation: I reviewed the patient's lab results. Result Diagrams: 03/20/22 04:32 03/19/22 06:08 Labs: Laboratory Results - last 24 hr 03/20/22 04:32: WBC 3.8 L, RBC 2.81 L, Hgb 8.8 L, Hct 27.1 L, MCV 96.4, MCH 31.3, MCHC 32.5 D, RDW Std Deviation 67.5 H, RDW Coeff of Shalini 18.9 H, Plt Count 244, MPV 11.2, Immature Gran % (Auto) 0.300, Neut % (Auto) 57.9, Lymph % (Auto) 24.5, [place] % (Auto) 14.7 H, Eos % (Auto) 2.1, Baso % (Auto) 0.5, Absolute Neuts (auto) 2.2, Absolute Lymphs (auto) 0.93, Nucleated RBC % 0, Differential Comment SCANNED, Anisocytosis 2+, Microcytosis 1+, Macrocytosis 1+ Physical Exam Const alert, oriented x3, no apparent distress and average body habitus General Appearance: frail Orientation / Consciousness: oriented to person, oriented to place and oriented to time Nutritional Appearance: cachectic HEENT normocephalic Head and Scalp: atraumatic Neck no lymphadenopathy Resp no use of accessory muscles and clear to auscultation bilaterally Cardio regular rate Cardio Narrative: Has 2+ pitting edema GI Auscultation: normoactive bowel sounds Palpation: soft Skin no rashes or lesions noted Psych cooperative Assessment & Plan Assessment/Plan (1) Anasarca: PLAN: She is doing better. Reason for her swelling is hypoalbuminemia. She is okay to go home from renal standpoint of view, needs to have labs done sometimes next week to assure that the kidney function is stable with large doses of diuretics.
--- NOTE | 2022-03-20 13:20 | PCM.DC ---
Discharge Instructions Diet Discharge Diet: - (seen by cv/cvn cv tsc system operator while you were admitted to the hospital and they recommended that you intake 65-75 g of protein per day, 2176-2163 ramona a day, 2,040 mL of fluid a day) Activity Discharge Activity: Return to Normal Activity Follow Up Care Test Results: Test results from this visit will be discussed in further detail at your follow-up appointment, if applicable. Discharge Plan Admission Admit Date/Time: 03/15/22 19:51 Primary Reason for Your Visit: Lower extremity swelling Attending Provider: Angela Shah Primary Care Provider: Loi De La Rosa Consulting Providers: Octavio Barahona ; Caty Fuller ; Rolando Melton ; Armando Kolb ; Fritz Velasquez ; Yfn Chowdhury ; Anil Olivares ; Sanju Dick ; Adria Mena ; Tori Bryant NP ; Mumtaz Jimenes Instructions Patient Instructions: ED Peripheral Edema, Bilateral Additional Instructions / Restrictions: *Please take this with you to your next doctors appointment* ?You have been started on a medication to help with the swelling, bumetanide 1 mg twice daily, it is important that you take this as prescribed ?You have also been started on 40 mg of potassium daily because of your diuretic, a prescription of this will also be sent to your preferred pharmacy on file ?You will need blood work (BMP) next week due to your new diuretic medication, please call your primary care physician's office next week to obtain order for blood work ?Recommend increasing protein in your diet, you were seen by cv/cvn cv tsc system operator while you were admitted to the hospital and they recommended that you intake 65-75 g of protein per day, 3819-3640 ramona a day, 2,040 mL of fluid a day. These goals may need adjusted over time, please follow-up with your primary care physician ? Continue to use compression stockings ?Continue to take your levothyroxine as previously prescribed ? Please take vitamin D3 daily, a prescription of this has been sent to your preferred pharmacy on file ?Please call your primary care provider's office upon discharge to schedule a hospital follow up within 1 week. -For any concerning signs or symptoms please call 911 or proceed to the nearest emergency department Discharge Orders/Prescriptions Prescriptions: New levothyroxine 25 mcg Tablet 25 mcg PO Gavino@0600 Qty: 0 0RF levothyroxine 100 mcg Tablet 100 mcg PO Salvador@0600 Qty: 0 0RF potassium chloride [Klor-Con M20] 20 mEq Tablet,Er Particles/Crystals 40 meq PO DAILYCM 30 Days Qty: 60 0RF bumetanide 0.5 mg Tablet 1 mg PO BIDLX 30 Days Qty: 120 0RF cholecalciferol (vitamin D3) 25 mcg (1,000 unit) Tablet 50 mcg PO DAILY 30 Days Qty: 60 0RF Continued Culturelle Kids Probiotics 5 billion cell powder in packet 1 cell PO DAILY melatonin 5 mg tablet 5 mg PO HS PRN (Reason: Insomnia) progestrone compound 1 applic topical DAILY digestive enzymes Tablet 1 tab PO TIDCM No Action levothyroxine 50 mcg tablet 25 mcg PO UD Rx Instructions: TAKE 1/2 TAB DAILY AND TAKE 2 TABS ON SUNDAYS Referrals / Follow Up: Loi De La Rosa MD [Primary Care Provider] - Within 1 Week Disposition Disposition (needs filled in before D/C Order can be placed): Home, Self Care
--- NOTE | 2022-03-20 13:34 | PCM.DC.SUM ---
Providers Date of Admission: 03/15/22 Date of Discharge: 03/20/22 Primary Care Physician: Dr. Loi De La Rosa MD Consultations 03/16/22 07:42 Consult: Nephrology Routine Consulting Provider: Caty Fuller Reason for Consult: B/L Leg edema, abd wall edema EMERGENT Consult: No MD Notified: Yes Date Notified: 03/16/22 Time Notified: 07:42 Method of Notification: Verbal 03/18/22 13:14 Consult: Oncology/Hematology Routine Consulting Provider: [facility] ([facility]) Reason for Consult: Bence salamanca proteinuria. B/L LEG edema EMERGENT Consult: No MD Notified: Yes Date Notified: 03/18/22 Time Notified: 13:14 Method of Notification: Verbal Reason For Visit: BILATERAL LOWER EXTREMITY EDEMA & DIFFICULTY AMBUL Diagnosis Discharge Diagnosis (1) Anasarca: Status: Acute Code(s): R60.1 - Generalized edema Plan 1.? Bilateral lower extremity edema, ascites/anasarca, [place] due to hypoalbuminemia 2.? Hypothyroidism 3.? Hypoalbuminemia Medications at Discharge Home Medications Lactobacillus rhamnosus GG 5 billion cell oral powder packet ([employer] Probiotics) 1 cell PO DAILY PROBIOTIC 07/16/21 melatonin 5 mg tablet 5 mg PO HS PRN Insomnia 07/16/21 progestrone compound 1 applic topical DAILY HORMONE 07/16/21 digestive enzymes 1 tab PO TIDCM 03/15/22 levothyroxine 50 mcg tablet 25 mcg PO UD 03/15/22 bumetanide 0.5 mg tablet 1 mg PO BIDLX 30 days #120 tabs 03/20/22 cholecalciferol (vitamin D3) 25 mcg (1,000 unit) tablet 50 mcg PO DAILY 30 days #60 tabs 03/20/22 levothyroxine 100 mcg tablet 100 mcg PO Salvador@0600 #0 tabs 03/20/22 levothyroxine 25 mcg tablet 25 mcg PO MoTuWeThFrSa@0600 #0 tabs 03/20/22 potassium chloride 20 mEq tablet,extended release(part/cryst) (Klor-Con M) 40 meq PO DAILYCM 30 days #60 tabs 03/20/22 Hospital Course Procedures Transesophageal Echo Summary of Care Provided Minutes Spent on Discharge: 35 Hospital Course: 57-year-old female with a history of hypothyroidism and osteoporosis who presented to [facility] 03/15/2022 with severe edema and difficulty ambulating. She had swelling from her legs up to her abdomen and she was started on Lasix. She also was noted to have hypoalbuminemia and had outpatient work-up with Dr. Lawrence and was referred further to rheumatology. She had thorough evaluation including oncology evaluation due to Bence-Salamanca proteins in one of her urine samples but repeat was negative and there was no follow-up that needed to be done. Nephrology is also been following and ultimately was felt like her swelling was due to hypoalbuminemia and she was started on Bumex with improvement in the edema. On the day of discharge she reported her swelling is getting better, does have some changes in her talking she reports with any kind of diuretic but feels this is manageable and not overly concerning, willing to be discharged with outpatient follow-up. Instructions provided for patient as below: *Please take this with you to your next doctors appointment* ?You have been started on a medication to help with the swelling, bumetanide 1 mg twice daily, it is important that you take this as prescribed ?You have also been started on 40 mg of potassium daily because of your diuretic, a prescription of this will also be sent to your preferred pharmacy on file ?You will need blood work (BMP) next week due to your new diuretic medication, please call your primary care physician's office next week to obtain order for blood work ?Recommend increasing protein in your diet, you were seen by photographer aerial while you were admitted to the hospital and they recommended that you intake 65-75 g of protein per day, [id number] ramona a day, 2,040 mL of fluid a day.? These goals may need adjusted over time, please follow-up with your primary care physician ? Continue to use compression stockings ?Continue to take your levothyroxine as previously prescribed ? Please take vitamin D3 daily, a prescription of this has been sent to your preferred pharmacy on file ?Please call your primary care provider's office upon discharge to schedule a hospital follow up within 1 week. -For any concerning signs or symptoms please call 911 or proceed to the nearest emergency department Physical Exam Const alert and no apparent distress Constitutional Narrative: Oriented HEENT normocephalic and head/scalp atraumatic Eyes Eyes Narrative: EOM grossly intact, anicteric Neck supple Resp normal respiratory effort and clear to auscultation bilaterally Cardio regular rate and regular rhythm GI soft to palpation, non-tender and non-distended Extremity Extremity Narrative: 1-2+ bilateral lower extremity edema, does have compression stockings in place at this time however Neuro moves all extremities Neuro Narrative: No overt focal deficits appreciated Psych Psych Narrative: Cooperative Weight / BMI Weight Weight: 73.4 kg Body Mass Index (BMI) 23.2 ABG / Lab / Microbiology Data Result Diagrams: 03/20/22 04:32 03/19/22 06:08 Laboratory: Laboratory Results - last 24 hr 03/20/22 04:32: WBC 3.8 L, RBC 2.81 L, Hgb 8.8 L, Hct 27.1 L, MCV 96.4, MCH 31.3, MCHC 32.5 D, RDW Std Deviation 67.5 H, RDW Coeff of Shalini 18.9 H, Plt Count 244, MPV 11.2, Immature Gran % (Auto) 0.300, Neut % (Auto) 57.9, Lymph % (Auto) 24.5, [place]vin % (Auto) 14.7 H, Eos % (Auto) 2.1, Baso % (Auto) 0.5, Absolute Neuts (auto) 2.2, Absolute Lymphs (auto) 0.93, Nucleated RBC % 0, Differential Comment SCANNED, Anisocytosis 2+, Microcytosis 1+, Macrocytosis 1+ D/C Instructions Discharge Diet: - (seen by photographer aerial while you were admitted to the hospital and they recommended that you intake 65-75 g of protein per day, 9934-7543 ramona a day, 2,040 mL of fluid a day) Meaningful Use Info Meaningful Use Diagnoses (Choose all that apply): None applicable Discharge Plan Admission Admit Date/Time: 03/15/22 19:51 Primary Reason for Your Visit: Lower extremity swelling Attending Provider: Angela Shah Primary Care Provider: Loi De La Rosa Consulting Providers: Octavio Barahona ; Caty Fuller ; Rolando Melton ; Armando Kolb ; Fritz Velasquez ; Yfn Chowdhury ; Anil Olivares ; Sanju Dick ; Adria Mena ; Tori Bryant NP ; Mumtaz Jimenes Instructions Patient Instructions: ED Peripheral Edema, Bilateral Additional Instructions / Restrictions: *Please take this with you to your next doctors appointment* ?You have been started on a medication to help with the swelling, bumetanide 1 mg twice daily, it is important that you take this as prescribed ?You have also been started on 40 mg of potassium daily because of your diuretic, a prescription of this will also be sent to your preferred pharmacy on file ?You will need blood work (BMP) next week due to your new diuretic medication, please call your primary care physician's office next week to obtain order for blood work ?Recommend increasing protein in your diet, you were seen by photographer aerial while you were admitted to the hospital and they recommended that you intake 65-75 g of protein per day, 5185-9421 ramona a day, 2,040 mL of fluid a day. These goals may need adjusted over time, please follow-up with your primary care physician ? Continue to use compression stockings ?Continue to take your levothyroxine as previously prescribed ? Please take vitamin D3 daily, a prescription of this has been sent to your preferred pharmacy on file ?Please call your primary care provider's office upon discharge to schedule a hospital follow up within 1 week. -For any concerning signs or symptoms please call 911 or proceed to the nearest emergency department Discharge Orders/Prescriptions Prescriptions: New levothyroxine 25 mcg Tablet 25 mcg PO MoTuWeThFrSa@0600 Qty: 0 0RF levothyroxine 100 mcg Tablet 100 mcg PO Salvador@0600 Qty: 0 0RF potassium chloride [Klor-Con M20] 20 mEq Tablet,Er Particles/Crystals 40 meq PO DAILYCM 30 Days Qty: 60 0RF bumetanide 0.5 mg Tablet 1 mg PO BIDLX 30 Days Qty: 120 0RF cholecalciferol (vitamin D3) 25 mcg (1,000 unit) Tablet 50 mcg PO DAILY 30 Days Qty: 60 0RF Continued [employer] Probiotics 5 billion cell powder in packet 1 cell PO DAILY melatonin 5 mg tablet 5 mg PO HS PRN (Reason: Insomnia) progestrone compound 1 applic topical DAILY digestive enzymes Tablet 1 tab PO TIDCM No Action levothyroxine 50 mcg tablet 25 mcg PO UD Rx Instructions: TAKE 1/2 TAB DAILY AND TAKE 2 TABS ON SUNDAYS Referrals / Follow Up: Loi De La Rosa MD [Primary Care Provider] - Within 1 Week Disposition Disposition (needs filled in before D/C Order can be placed): Home, Self Care Charges/Coding Visit Charges Inpatient E&M: 05256 Disch Hosp
[2022-03-20 14:22] VITALS: BP 100/67; PULSE 64; RESP 16; TEMP 36.5; O2SAT 100
== END 2022-03-20 14:55 | disposition home or self-care (01) | DRG 694 ==
LOC: ED 19:14 → PCU 03-16 07:03 → MS3 03-19 14:57
PROVIDERS: Internal Medicine; Internal Medicine Nephrology; Nurse Practitioner Adult Health; Admitting Provider Family Medicine; Emergency Provider Emergency Medicine; PCP Family Medicine; Visit Provider Internal Medicine
DX: E88.09 Other disorders of plasma-protein metabolism, not elsewhere classified (principal); K90.9 Intestinal malabsorption, unspecified; K75.81 Nonalcoholic steatohepatitis (NASH); R18.8 Other ascites; R26.2 Difficulty in walking, not elsewhere classified; E06.3 Autoimmune thyroiditis; E03.9 Hypothyroidism, unspecified; D64.9 Anemia, unspecified; R80.9 Proteinuria, unspecified; Z28.310 Unvaccinated for COVID-19; Z79.890 Hormone replacement therapy; Z79.899 Other long term (current) drug therapy
CPT/HCPCS: 36415; 71260; 74177; 80048; 80053; 82728; 83540; 83550; 83735; 83880; 83883; 84166; 84439; 84443; 84481; 85025; 93306; 93970; 97162; 99283; Q9967; A4216; J1940

== ENCOUNTER → 2022-03-24 | Outpatient (CLI) | payer MEDICAID, SELFPAY ==
[2022-03-24 18:17] LABS: ALB/GLOB Ratio 0.9 RATIO (0.9-2.4); AST(SGOT) 54 U/L (15-37); Alanine Aminotransfer ALT/SGPT 69 U/L (13-56); Albumin, Serum 2.5 g/dL (3.2-5.0); Alkaline Phosphatase 94 U/L (45-117); Anion Gap 4 (5-15); BUN 30 mg/dL (7-18); BUN/Creat Ratio 39.1 RATIO (10-20); Calcium,Total 8.4 mg/dL (8.5-10.1); Chloride 103 mmol/L (98-107); Creatinine, Serum 0.77 mg/dL (0.55-1.02); EST Glomerular Filtration Rate 83 mL/min (>60); Est Glom Filt Rate - Afr Amer 100 mL/min (>60); Globulin 2.8 g/dL (2.2-4.2); Glucose 111 mg/dL (74-106); Potassium 4.6 mmol/L (3.5-5.1); Protein, Total 5.3 g/dL (6.4-8.2); Sodium Level 140 mmol/L (136-145)
== END | disposition home or self-care (01) ==
LOC: MFPLAB 14:43
PROVIDERS: PCP Family Medicine; Visit Provider Nurse Practitioner Family
DX: E88.09 Other disorders of plasma-protein metabolism, not elsewhere classified (principal)
CPT/HCPCS: 36415; 80053

== ENCOUNTER 2022-05-10 17:40 | Emergency (ER) | payer MEDICAID, SELFPAY ==
[2022-05-10 17:41] VITALS: BP 138/82; PULSE 58; RESP 16; TEMP 36.2; O2SAT 99; BMI 22.3
--- NOTE | 2022-05-10 18:23 | EKG12_ITS ---
Test Reason : EDEMA Blood Pressure : / mmHG Vent. Rate : 051 BPM Atrial Rate : 051 BPM P-R Int : 164 ms QRS Dur : 090 ms QT Int : 482 ms P-R-T Axes : 086 050 057 degrees QTc Int : 444 ms Sinus bradycardia Low voltage QRS (Limb Leads) Confirmed by MALCOLM WEBB, ALEKSANDER ([id number]), art editor JEANNIE MUNGUIA ([id number]) on 05/11/2022 10:20:13 AM Referred By: Confirmed By:ALEKSANDER FOWLER MD
--- NOTE | 2022-05-10 18:55 | RAD_ITS ---
STUDY: X-RAY CHEST REASON FOR EXAM: Female, 57 years old. chest pain TECHNIQUE: Single AP portable view of the chest. COMPARISON: 05/16/2021 FINDINGS: There is hyperinflation of the lungs consistent with chronic obstructive lung disease (COPD). There is no demonstrated pleural abnormality. Normal size heart. Normal mediastinum and zahra. Normal visualized pulmonary arteries. Normal visualized aortic arch and descending thoracic aorta. Normal visualized thoracic spine. Normal visualized ribs, clavicles, and shoulders. There is no demonstrated abnormality of the visualized soft tissue structures of the upper abdomen. RAD/Chest 1 View (Portable) IMPRESSION: Emphysema without pneumonia or atelectasis. Electronically Signed: Sharad Anand MD at 19:56 EST ,
[2022-05-10 18:56] LABS: Absolute Lymphocyte Count 0.54 X10^3/uL (0.83-4.51); Absolute Neutrophil Count 4.8 X10^3/uL (2.0-7.7); Basophil# 0.01 X10^3/uL; Basophil% 0.2 % (0-1); Eosinophil# 0.01 X10^3/uL; Eosinophils% 0.2 % (0-5); Hemoglobin 9.8 g/dL (12.0-15.0); Lymphocyte # 0.54 X10^3/ul (0.83-4.51); Lymphocyte % 9.6 % (19-41); Mean Corp Hgb Conc 33.8 g/dL (32-36); Mean Corpuscular Hgb 32.3 pg (27.0-32.0); Mean Corpuscular Volume 95.7 fL (81-99); Monocyte# 0.32 X10^3/uL; Monocyte% 5.7 % (0-10); NRBC Flagged by Analyzer 0 % (0-5); Neutrophil # 4.76 X10^3/uL (2.7-7.7); Neutrophil % 84.1 % (47-70); POSITIVE DIFFERENTIAL YES; Platelet Count 258 K/mm3 (150-450); RBC Distribution Width SD 58.9 fl (35.1-43.9); Red Blood Count 3.03 M/mm3 (4.2-5.4); White Blood Count 5.7 K/mm3 (4.4-11.0)
[2022-05-10 18:57] VITALS: BP 137/92; PULSE 56; RESP 12; O2SAT 100
--- NOTE | 2022-05-10 18:59 | ED.RN ---
pt refused 324 asa at this time. rn explained the reasoning behind why it is being ordered. pt still refused. MD notified at this time.
[2022-05-10 19:00] LABS: Differential Indicated SCAN CRITERIA MET
[2022-05-10 19:12] LABS: Anion Gap 2 (5-15); BUN 44 mg/dL (7-18); BUN/Creat Ratio 46.1 RATIO (10-20); Chloride 107 mmol/L (98-107); Creatinine, Serum 0.96 mg/dL (0.55-1.02); EST Glomerular Filtration Rate 64 mL/min (>60); Est Glom Filt Rate - Afr Amer 77 mL/min (>60); Estimated Creatinine Clearance 69.92 ml/min; Glucose 105 mg/dL (74-106); Potassium 4.7 mmol/L (3.5-5.1); Sodium Level 141 mmol/L (136-145); Troponin-I HS 15 pg/mL (3.0-54.0)
--- NOTE | 2022-05-10 19:26 | EDS_ITS ---
HPI History of Present Illness Chief Complaint: Edema Narrative Narrative: Presenting with lower extremity edema somewhat to her waist. She states has had this in the past. Previously admitted for Lasix therapy. She states last Tuesday took up about [address] Loi De La Rosa has cut her Lasix down. He has her to 4 cups of water a day. Patient states that he is worried about her liver enzymes as well. They state they have a consult with nephrology this Tuesday and a consult with rheumatology in May. Patient having trouble with ADLs. She is having trouble standing and walking. She is limited her showers to once a week because she has trouble standing. This is due to lower extremity edema. 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 Obsessive compulsive disorder Osteoporosis Polypharmacy Home Medications Lactobacillus rhamnosus GG 5 billion cell oral powder packet ([employer] Probiotics) 1 cell PO DAILY PROBIOTIC 07/16/21 [History Last Taken 03/14/22] melatonin 5 mg tablet 5 mg PO HS PRN Insomnia 07/16/21 [History Last Taken 03/14/22] progestrone compound 1 applic topical DAILY HORMONE 07/16/21 [History Last Taken 03/14/22] digestive enzymes 1 tab PO TIDCM 03/15/22 [History Last Taken 03/14/22] cholecalciferol (vitamin D3) 25 mcg (1,000 unit) tablet 50 mcg PO DAILY 30 days #60 tabs 03/20/22 [Rx Last Taken Unknown] levothyroxine 50 mcg tablet 50 mcg PO .daily, 2 on Sundays #34 tabs 03/22/22 [Rx Last Taken Unknown] furosemide 20 mg tablet (Lasix) 20 mg PO DAILY 05/10/22 [History Last Taken Unknown] Allergy/AdvReac Type Severity Reaction Status Date / Time codeine Allergy Vomiting Verified 05/10/22 17:44 amoxicillin AdvReac Intermediate hot flash Verified 05/10/22 17:44 lactose AdvReac Vomiting Verified 05/10/22 17:44 Family History Mother Heart disease Hypothyroidism Father OCD (obsessive compulsive disorder) Social History household members: family housing: house Smoking Status: Never smoker alcohol intake: never substance use type: does not use ROS ROS ED Review of Systems ROS Unobtainable: Denies due to encephalopathy Constitutional Constitutional ED: Denies chills or fever(s) Eyes Eyes: Denies change in vision ENT ENT ED: Denies rhinorrhea or sore throat Cardiovascular Cardiovascular: Denies chest pain or palpitations Respiratory/Chest Respiratory/Chest: Denies cough or dyspnea Gastrointestinal Gastrointestinal: Denies abdominal pain Genitourinary Genitourinary ED: Denies dysuria or hematuria Musculoskeletal Musculoskeletal: Denies arthralgias or back pain Integumentary Denies abscess Neurologic Neurologic: Denies headache(s) Psychiatric Psychiatric: Denies anxiety EXAM Physical Exam Const Vital Signs: 05/10/22 17:41 05/10/22 18:57 05/10/22 18:57 Temperature 97.2 F L Temperature Source Temporal Pulse Rate 58 L 56 L Respiratory Rate 16 12 Respiratory Effort Respiratory Pattern Blood Pressure 138/82 H 137/92 H Blood Pressure Mean 100 107 Pulse Ox 99 100 100 Oxygen Delivery Method Room Air Room Air 05/10/22 18:57 Temperature Temperature Source Pulse Rate Respiratory Rate Respiratory Effort Normal Non-Labored Respiratory Pattern Normal Blood Pressure Blood Pressure Mean Pulse Ox Oxygen Delivery Method Positive well nourished General Appearance ED: NAD; Negative for pallor HEENT Reports moist mucous membranes and dry mucous membranes Mouth ED: Yes dry mucous membranes Mouth: dry mucous membranes Neck no lymphadenopathy Resp normal respiratory effort Cardio regular rate Rate: bradycardia Extremity General Extremety ED: Yes edema General Extremity: edema Neuro oriented x3 and CN's II-XII intact bilaterally Sensorium / Orientation: alert Skin no rashes or lesions noted General Skin Exam: Negative for jaundice or pallor MDM MDM MDM Narrative Medical decision making narrative: Patient presenting with lower extremity edema which has been worsening apparently. Patient does take Lasix but states that her primary care physician is cut back on this. He is concerned about liver function and renal function. CBC to assess hemoglobin, white blood cell count, differential. BMP to assess renal function, electrolytes, anion gap. LFTs to assess liver enzymes. High- sensitivity troponin to assess cardiac source due to the lower extremity edema. EKG was obtained and on my interpretation this is sinus bradycardia with a ventricular to 51 bpm without sign of ischemic change. Chest x-ray was obtained to rule out findings of CHF and this is normal. CBC and BMP are essentially unremarkable. Her BUN creatinine ratio is very high. Troponin is normal. Hemoglobin, hematocrit, platelets all normal. Patient states last time she was here she was admitted for Lasix therapy and discharged home. She has seen Dr. Lawrence. Is also been seen by nephrology inpatient in the hospital. Supposed to see Dr. Bello this week and rheumatology next month. Patient discussed with the hospitalist as he does know her very well. He did evaluate the patient and states this is her baseline. There was no need for admission. Patient comfortable with this plan. Liver enzymes slightly elevated but nonspecific. Patient will be discharged home in stable condition. Impression: 1. Generalized weakness 2. Lower extremity edema Lab Data Attestation: I reviewed the patient's lab results. Labs: Laboratory Results - last 24 hr 05/10/22 05/10/22 05/10/22 18:40 18:40 18:55 WBC 5.7 RBC 3.03 L Hgb 9.8 L Hct 29.0 L MCV 95.7 MCH 32.3 H MCHC 33.8 RDW Std Deviation 58.9 H RDW Coeff of Shalini 17.0 H Plt Count 258 MPV 12.0 Immature Gran % (Auto) 0.200 Neut % (Auto) 84.1 H Lymph % (Auto) 9.6 L [place] % (Auto) 5.7 Eos % (Auto) 0.2 Baso % (Auto) 0.2 Absolute Neuts (auto) 4.8 Absolute Lymphs (auto) 0.54 L Nucleated RBC % 0 Differential Comment SCANNED Sodium 141 Potassium 4.7 Chloride 107 Carbon Dioxide 32.0 Anion Gap 2 L BUN 44 H Creatinine 0.96 Estim Creat Clear Calc 69.92 Est GFR (MDRD) Af Amer 77 Est GFR (MDRD) Non-Af 64 BUN/Creatinine Ratio 46.1 H Glucose 105 Calcium 9.0 Total Bilirubin < 0.10 L Direct Bilirubin 0.05 AST 67 H ALT 70 H Alkaline Phosphatase 64 Troponin I High Sens 15 Total Protein 4.8 L Albumin 2.0 L Globulin 2.8 Radiography Diagnostic Testing: Clinical Impression(s) from Imaging Studies Chest X-Ray 05/10/22 18:55 IMPRESSION: Emphysema without pneumonia or atelectasis. Electronically Signed: Sharad Anand MD at 19:56 EST , Discharge Plan Triage Chief Complaint: Edema ED Provider: Yefri Shaw Dx/Rx/DC Orders Instructions: ED Peripheral Edema, Bilateral Prescriptions: No Action [employer]lle Kids Probiotics 5 billion cell powder in packet 1 cell PO DAILY melatonin 5 mg tablet 5 mg PO HS PRN (Reason: Insomnia) progestrone compound 1 applic topical DAILY digestive enzymes Tablet 1 tab PO TIDCM cholecalciferol (vitamin D3) 25 mcg (1,000 unit) Tablet 50 mcg PO DAILY 30 Days Qty: 60 0RF furosemide [Lasix] 20 mg Tablet 20 mg PO DAILY levothyroxine 50 mcg tablet 50 mcg PO .daily, 2 on Sundays Qty: 34 6RF Rx Instructions: and tuesday takes 100mg Primary Care Provider: Loi De La Rosa Referrals: Loi De La Rosa MD [Primary Care Provider] - Disposition Disposition: Home, Self Care
[2022-05-10 19:27] LABS: Differential Comment SCANNED
[2022-05-10 20:27] LABS: AST(SGOT) 67 U/L (15-37); Alanine Aminotransfer ALT/SGPT 70 U/L (13-56); Alkaline Phosphatase 64 U/L (45-117); Bilirubin, Direct 0.05 mg/dL (0.00-0.30); Globulin 2.8 g/dL (2.2-4.2); Protein, Total 4.8 g/dL (6.4-8.2); Total Bilirubin < 0.10 mg/dL (0.20-1.00)
[2022-05-10 22:21] VITALS: BP 130/86; PULSE 56; RESP 16; O2SAT 98
[2022-05-10] MEDS: Furosemide 40 MG Tablet PO (22:21)
== END 2022-05-10 22:36 | disposition home or self-care (01) ==
PROVIDERS: Emergency Provider Student in an Organized Health Care Education/Training Program; PCP Family Medicine; Visit Provider Student in an Organized Health Care Education/Training Program
DX: R60.0 Localized edema (principal); R00.1 Bradycardia, unspecified; R53.1 Weakness
CPT/HCPCS: 71045; 80048; 80076; 84484; 85025; 93005; 99285; A4216

== ENCOUNTER → 2022-05-12 | Outpatient (CLI) | payer MEDICAID, SELFPAY ==
[2022-05-12 13:05] LABS: Hematocrit 29.3 % (37-47); Hemoglobin 10.2 g/dL (12.0-15.0); Mean Corp Hgb Conc 34.8 g/dL (32-36); Mean Corpuscular Hgb 32.4 pg (27.0-32.0); Mean Platelet Vol. 12.1 fl (6.2-12.0); Platelet Count 264 K/mm3 (150-450); RBC Distribution Width CV 16.9 % (11.6-14.6); RBC Distribution Width SD 55.7 fl (35.1-43.9); Red Blood Count 3.15 M/mm3 (4.2-5.4)
[2022-05-12 13:07] LABS: Erythrocyte Sedimentation Rate 33 mm/hr (0-30)
[2022-05-12 13:25] LABS: Protein, Urine (Random) < 6.0 mg/dL (<11.9)
[2022-05-12 13:34] LABS: ALB/GLOB Ratio 0.7 RATIO (0.9-2.4); AST(SGOT) 74 U/L (15-37); Alanine Aminotransfer ALT/SGPT 79 U/L (13-56); Albumin, Serum 2.3 g/dL (3.2-5.0); Alkaline Phosphatase 72 U/L (45-117); Anion Gap 4 (5-15); BUN 42 mg/dL (7-18); BUN/Creat Ratio 48.3 RATIO (10-20); CPK Total, Creatine Kinase 283 U/L (26-192); CRP < 2.90 mg/L (0.0-3.0); Chloride 104 mmol/L (98-107); Creatinine, Serum 0.87 mg/dL (0.55-1.02); EST Glomerular Filtration Rate 71 mL/min (>60); Est Glom Filt Rate - Afr Amer 86 mL/min (>60); Ferritin 37 ng/mL (8-252); Globulin 3.1 g/dL (2.2-4.2); Glucose 81 mg/dL (74-106); Iron 129 ug/dL (50-170); Iron Binding Capacity,Total 403 ug/dL (250-450); Potassium 3.9 mmol/L (3.5-5.1); Protein, Total 5.4 g/dL (6.4-8.2); Sodium Level 140 mmol/L (136-145)
[2022-05-12 13:47] LABS: Free T3 1.5 pg/mL (2.18-3.98); Magnesium 1.9 mg/dL (1.6-2.6); T4 Free Direct 1.08 ng/dL (0.76-1.46)
[2022-05-18 13:31] LABS: Anti-Nuclear Antibody Test Negative (.)
[2022-05-20 03:07] LABS: Aldosterone, Serum < 1.0 ng/dL (0.0-30.0); Cytoplasmic Ab (C-ANCA) <1:20 titer (Neg:<1:20)
[2022-05-20 23:02] LABS: Complement C3 146 mg/dL (82-167); Perinuclear Ab (P-ANCA) <1:20 titer (Neg:<1:20)
== END | disposition home or self-care (01) ==
PROVIDERS: PCP Family Medicine; Visit Provider Internal Medicine Nephrology
DX: N18.2 Chronic kidney disease, stage 2 (mild) (principal); M60.9 Myositis, unspecified; R74.01 Elevation of levels of liver transaminase levels; D63.8 Anemia in other chronic diseases classified elsewhere
CPT/HCPCS: 86038; 36415; 80053; 82088; 82550; 82570; 82728; 83540; 83550; 83735; 84134; 84156; 84439; 84481; 85027; 85652; 86140; 86160; 86256

== ENCOUNTER 2022-05-17 16:49 | Outpatient (CLI) | payer MEDICAID, SELFPAY ==
[2022-05-17 17:57] LABS: ALB/GLOB Ratio 0.7 RATIO (0.9-2.4); AST(SGOT) 63 U/L (15-37); Alanine Aminotransfer ALT/SGPT 66 U/L (13-56); Alkaline Phosphatase 63 U/L (45-117); Anion Gap 4 (5-15); BUN 47 mg/dL (7-18); BUN/Creat Ratio 52.5 RATIO (10-20); Calcium,Total 8.8 mg/dL (8.5-10.1); Chloride 104 mmol/L (98-107); EST Glomerular Filtration Rate 69 mL/min (>60); Est Glom Filt Rate - Afr Amer 84 mL/min (>60); Globulin 2.7 g/dL (2.2-4.2); Glucose 101 mg/dL (74-106); Magnesium 1.8 mg/dL (1.6-2.6); Potassium 4.3 mmol/L (3.5-5.1); Protein, Total 4.7 g/dL (6.4-8.2); Sodium Level 139 mmol/L (136-145); Total Bilirubin < 0.10 mg/dL (0.20-1.00)
[2022-05-19 20:31] LABS: Alpha Antitrypsin Serum 212 mg/dL (101-187)
== END 2022-05-17 23:59 | disposition home or self-care (01) ==
LOC: MFPLAB 16:50
PROVIDERS: PCP Family Medicine; Visit Provider Family Medicine
DX: H53.8 Other visual disturbances (principal); J43.9 Emphysema, unspecified; R60.1 Generalized edema
CPT/HCPCS: 36415; 80053; 82103; 83735

== ENCOUNTER 2022-05-19 09:50 | Outpatient (RCR) | payer MEDICAID, SELFPAY ==
--- NOTE | 2022-05-19 15:16 | HP.OTEVAL_ITS ---
Patient's Visit Information ANDREIA GALDAMEZ is a 57 year old F, referred to Occupational Therapy by Dr. Loi De La Rosa MD, with a diagnosis of lymphedema. Date of Evaluation: 05/19/22 Occupational Therapist: Yessy Rojas, JESSICA/[place], CHT - Subjective This 57 year old female was seen for OT eval with dx of lymphedema- pt states over a year she has had swelling in LE up to her thighs. pt states she was also hospitalized in Feb. swelling to abdomin- and then referred to GI and RA (june 03) and Kidney specialist ( per pt not her kidneys). pt states oncology 05/20/22. pt has had Lasix off will gain a pound a day- if she takes more Lasix she gets dizzy and falls. pt states legs feel heavy. pt states swelling will go down a little at night while she is sleeping. also dx pt with hypoalbuminemia - and he has explained to pt goal is to reverse liver inflammation and possible Rheumatologic condition. he has advised elevation l imit fluids and stronger compression socks- - Lymphedema (Circumferential Measure) Mid-foot: right 26.5cm left 26cm Ankle: right 31cm left 33cm Lower calf: right 33cm left 34cm Largest calf: right 49cm left 49cm Below knee: right 41cm left 41cm Above knee: right 51cm left 51.5cm Mid-thigh: right 55cm left 56c, Groin: right 55cm left 56cm - Lower Limb Functional Index Lower Extremity Functional Score: 26 - Goals Demonstrate a 20% reduction in edema by d/c: Yes Demonstrate adequate knowledge of self-massage by 2nd week: Yes Demonstrate adequate knowledge skin care/prec by 2nd week: Yes Demonstrate adequate knowledge therapeutic exercises by d/c: Yes Select approp compression garment w/donning/care/wear by d/c: Yes Voice need to replace compression garment every 4-6mo by dc: Yes - Rehabilitation General Assessment: pt demo with stage II lymphedema- pt struggling with safe functional mobility as need of WC and demo difficulty with sit-stand tsf. pt demo need for skilled OT services 2-3x week for 4 weeks to ed. pt on life long mtg of lymphedema. Today therapist ed. pt and pts sister in mtg of lymphedema, lymph stimulation exercise, self manual lymph massage and ed. on use of compression garments 20-30 mmHg. Therapy will submit to insurance for approval of therapy services. therapist will work on getting home compression pump th rough [facility] so pt can use at home. pt and pts sister agree able to POC. Rehabilitation Potential: Questionable - Anticipated Interventions Education re assistive Equipment, Education re Diagnosis, Education re Life-long lymphedema Management, Education re Skin Care and Precautions, Education re Self Massage Techniques, Education re Correct Donning Tech,Care&Wearing Sched Comp Garments, Caregiver Training, Home Program - Visit Plan Frequency: 1-2x /Week Duration: 4 Weeks General Plan: will initiate self manual lymph massage. lymph stim exercise. compression socks 20-30 mmHg. will work with pt to see if she wants Velcro closure compression garments or combining leggings with knee high compression socks. pt was given info on both and will look into what she can mtg finically. flexitouch vaso compression device for home use TEXT: Thank you for the opportunity to evaluate your patient. For Medicare and Medicare HMO plans, please review the plan of care and approve it. It will need to be FAXED BACK to us at [phone] for Medicare purposes. Please let me know if there are questions or concerns regarding this plan of care. Physician Signature: Date:
--- NOTE | 2022-08-18 08:10 | HP.OT.NRP ---
ANDREIA GALDAMEZ was seen in my office for initial evaluation on 05/19/22. The following Plan of Care was established for this patient: Initial Frequency: 1-2x /Week Initial Duration: 4 Weeks Anticipated Interventions: Education re assistive Equipment, Education re Diagnosis, Education re Life-long lymphedema Management, Education re Skin Care and Precautions, Education re Self Massage Techniques, Education re Correct Donning Tech,Care&Wearing Sched Comp Garments, Caregiver Training, Home Program This patient was last seen in our office 05/19/22. Pertinent comments regarding their Occupational therapy will appear below: pt was seen for initial eval only- at this time pt has not returned and due to time laps in services pt is d.c. due to pts comorbidities pt may not be medically be stable for use of compression devices. At this point I will be discontinuing this patient from occupational therapy. I would be happy to see this patient again in the future if found appropriate by the physician. Thank you! Yessy Rojas, OTR/L, CHT
== END 2022-05-19 19:00 | disposition home or self-care (01) ==
LOC: OT 09:50
PROVIDERS: PCP Family Medicine; Referring Provider Family Medicine; Visit Provider Family Medicine
DX: I89.0 Lymphedema, not elsewhere classified (principal)
CPT/HCPCS: 97166

== ENCOUNTER → 2022-07-22 | Outpatient (CLI) | payer MEDICAID, SELFPAY ==
[2022-07-22 18:41] LABS: ALB/GLOB Ratio 0.8 RATIO (0.9-2.4); AST(SGOT) 33 U/L (15-37); Alanine Aminotransfer ALT/SGPT 57 U/L (13-56); Albumin, Serum 2.4 g/dL (3.2-5.0); Alkaline Phosphatase 78 U/L (45-117); Anion Gap -1 (5-15); BUN 39 mg/dL (7-18); BUN/Creat Ratio 42.8 RATIO (10-20); Calcium,Total 8.9 mg/dL (8.5-10.1); Chloride 104 mmol/L (98-107); Creatinine, Serum 0.91 mg/dL (0.55-1.02); EST Glomerular Filtration Rate 68 mL/min (>60); Est Glom Filt Rate - Afr Amer 82 mL/min (>60); GGTP 6 U/L (5-55); Globulin 2.9 g/dL (2.2-4.2); Glucose 82 mg/dL (74-106); Potassium 4.5 mmol/L (3.5-5.1); Protein, Total 5.3 g/dL (6.4-8.2); Sodium Level 135 mmol/L (136-145); Total Bilirubin < 0.10 mg/dL (0.20-1.00)
== END | disposition home or self-care (01) ==
LOC: MFPLAB 16:30
PROVIDERS: PCP Family Medicine; Visit Provider Family Medicine
DX: D47.2 Monoclonal gammopathy (principal); R74.01 Elevation of levels of liver transaminase levels
CPT/HCPCS: 36415; 80053; 82977

== ENCOUNTER → 2022-11-11 | Outpatient (CLI) | payer MEDICAID, SELFPAY ==
[2022-11-11 10:46] LABS: Absolute Lymphocyte Count 1.14 X10^3/uL (0.83-4.51); Absolute Neutrophil Count 4.7 X10^3/uL (2.0-7.7); Basophil# 0.02 X10^3/uL; Basophil% 0.3 % (0-1); Eosinophils% 1.5 % (0-5); Hematocrit 33.8 % (37-47); Hemoglobin 10.9 g/dL (12.0-15.0); Lymphocyte # 1.14 X10^3/ul (0.83-4.51); Lymphocyte % 17.5 % (19-41); Mean Corp Hgb Conc 32.2 g/dL (32-36); Mean Corpuscular Hgb 31.2 pg (27.0-32.0); Mean Corpuscular Volume 96.8 fL (81-99); Mean Platelet Vol. 11.3 fl (6.2-12.0); Monocyte% 9.2 % (0-10); NRBC Flagged by Analyzer 0 % (0-5); Neutrophil # 4.65 X10^3/uL (2.7-7.7); Neutrophil % 71.2 % (47-70); Platelet Count 363 K/mm3 (150-450); RBC Distribution Width CV 16.3 % (11.6-14.6); RBC Distribution Width SD 57.1 fl (35.1-43.9); Red Blood Count 3.49 M/mm3 (4.2-5.4); White Blood Count 6.5 K/mm3 (4.4-11.0)
[2022-11-11 10:55] LABS: Erythrocyte Sedimentation Rate 13 mm/hr (0-30)
[2022-11-11 11:09] LABS: Fibrinogen 503 mg/dl (203-444)
[2022-11-11 11:18] LABS: Homocysteine 4.6 umol/L (3.2-10.7)
[2022-11-11 12:08] LABS: ALB/GLOB Ratio 0.9 RATIO (0.9-2.4); AST(SGOT) 23 U/L (15-37); Alanine Aminotransfer ALT/SGPT 36 U/L (13-56); Albumin, Serum 2.6 g/dL (3.2-5.0); Alkaline Phosphatase 75 U/L (45-117); Anion Gap 4 (5-15); BUN 31 mg/dL (7-18); BUN/Creat Ratio 48.8 RATIO (10-20); CRP < 2.90 mg/L (0.0-3.0); Chloride 107 mmol/L (98-107); Cholesterol 195 mg/dL (200); Creatinine, Serum 0.64 mg/dL (0.55-1.02); EST Glomerular Filtration Rate 102 mL/min (>60); Est Glom Filt Rate - Afr Amer 124 mL/min (>60); Free T3 2.2 pg/mL (2.18-3.98); GGTP 11 U/L (5-55); Glucose 93 mg/dL (74-106); High Density Lipoprotein 68 mg/dL; LDH 194 U/L (84-246); Potassium 3.8 mmol/L (3.5-5.1); Protein, Total 5.6 g/dL (6.4-8.2); Sodium Level 139 mmol/L (136-145); T3 Uptake 38 % (30-39); Triglycerides 33 mg/dL; Uric Acid 5.8 mg/dL (2.6-6.0); Very Low Density Lipoprotein 7 mg/dL (5-40)
[2022-11-11 21:15] LABS: Insulin 1.5 mU/L (2.6-37.6)
[2022-11-18 05:07] LABS: Anti-Thyroglobulin AB < 1.0 IU/mL (0.0-0.9); Ceruloplasmin 29.5 mg/dL (19.0-39.0); Copper, Serum or Plasma 134 ug/dL (80-158); Insulin Like Growth Factor 162 ng/mL (60-207); T3 Reverse 15.8 ng/dL (9.2-24.1); Thyroglobulin, Serum Qt. 1.1 ng/mL (1.5-38.5); Thyroid Peroxidase AB < 9 IU/mL (0-34)
== END | disposition home or self-care (01) ==
PROVIDERS: PCP Family Medicine
DX: E03.9 Hypothyroidism, unspecified (principal); C90.00 Multiple myeloma not having achieved remission; R53.83 Other fatigue; F41.9 Anxiety disorder, unspecified; G47.9 Sleep disorder, unspecified; E56.9 Vitamin deficiency, unspecified; E61.9 Deficiency of nutrient element, unspecified; D64.9 Anemia, unspecified; I89.0 Lymphedema, not elsewhere classified; R60.1 Generalized edema; R09.81 Nasal congestion; F45.9 Somatoform disorder, unspecified; D47.2 Monoclonal gammopathy; R52 Pain, unspecified; K59.00 Constipation, unspecified; Z77.120 Contact with and (suspected) exposure to mold (toxic); Z88.9 Allergy status to unspecified drugs, medicaments and biological substances; Z13.29 Encounter for screening for other suspected endocrine disorder; Z13.220 Encounter for screening for lipoid disorders
CPT/HCPCS: 36415; 80053; 80061; 82390; 82525; 82977; 83090; 83525; 83615; 84305; 84432; 84479; 84481; 84482; 84550; 85025; 85384; 85652; 86140; 86376; 86800

== ENCOUNTER → 2022-12-07 | Outpatient (CLI) | payer MEDICAID, SELFPAY ==
[2022-12-07 10:10] LABS: Absolute Lymphocyte Count 1.07 X10^3/uL (0.83-4.51); Absolute Neutrophil Count 6.2 X10^3/uL (2.0-7.7); Basophil# 0.05 X10^3/uL; Basophil% 0.6 % (0-1); Eosinophil# 0.28 X10^3/uL; Eosinophils% 3.3 % (0-5); Erythrocyte Sedimentation Rate 16 mm/hr (0-30); Hemoglobin 10.7 g/dL (12.0-15.0); Lymphocyte # 1.07 X10^3/ul (0.83-4.51); Lymphocyte % 12.7 % (19-41); Mean Corp Hgb Conc 32.4 g/dL (32-36); Mean Corpuscular Hgb 30.2 pg (27.0-32.0); Mean Corpuscular Volume 93.2 fL (81-99); Mean Platelet Vol. 10.7 fl (6.2-12.0); Monocyte# 0.85 X10^3/uL; Monocyte% 10.1 % (0-10); NRBC Flagged by Analyzer 0 % (0-5); Neutrophil # 6.17 X10^3/uL (2.7-7.7); Neutrophil % 73.1 % (47-70); Platelet Count 367 K/mm3 (150-450); RBC Distribution Width CV 16.5 % (11.6-14.6); RBC Distribution Width SD 56.4 fl (35.1-43.9); Red Blood Count 3.54 M/mm3 (4.2-5.4); White Blood Count 8.4 K/mm3 (4.4-11.0)
[2022-12-07 10:33] LABS: Homocysteine 4.3 umol/L (3.2-10.7)
[2022-12-07 10:37] LABS: D-Dimer Quantitative (DVT/PE) 0.43 FEU/ug/m (0.27-0.49)
[2022-12-07 10:39] LABS: Fibrinogen 542 mg/dl (203-444)
[2022-12-07 10:46] LABS: Vitamin D,25 Hydroxy 65.6 ng/mL
[2022-12-07 11:32] LABS: ALB/GLOB Ratio 0.9 RATIO (0.9-2.4); AST(SGOT) 16 U/L (15-37); Alanine Aminotransfer ALT/SGPT 37 U/L (13-56); Albumin, Serum 2.8 g/dL (3.2-5.0); Alkaline Phosphatase 81 U/L (45-117); Anion Gap 4 (5-15); BUN 31 mg/dL (7-18); BUN/Creat Ratio 45.7 RATIO (10-20); CRP < 2.90 mg/L (0.0-3.0); Calcium,Total 9.2 mg/dL (8.5-10.1); Chloride 107 mmol/L (98-107); Creatinine, Serum 0.68 mg/dL (0.55-1.02); EST Glomerular Filtration Rate 95 mL/min (>60); Est Glom Filt Rate - Afr Amer 115 mL/min (>60); Globulin 3.2 g/dL (2.2-4.2); Glucose 97 mg/dL (74-106); LDH 178 U/L (84-246); Potassium 3.7 mmol/L (3.5-5.1); Sodium Level 140 mmol/L (136-145); T4 Free Direct 1.38 ng/dL (0.76-1.46); T4 Total, Thyroxin 10.7 ug/dL (4.8-13.9); Thyroid Stim Hormone (TSH) 0.02 uIU/mL (0.358-3.74); Uric Acid 5.6 mg/dL (2.6-6.0)
[2022-12-11 03:07] LABS: Copper, Serum or Plasma 143 ug/dL (80-158); T3 Reverse 20.7 ng/dL (9.2-24.1)
== END | disposition home or self-care (01) ==
PROVIDERS: PCP Family Medicine
DX: E03.9 Hypothyroidism, unspecified (principal); C90.00 Multiple myeloma not having achieved remission; R53.83 Other fatigue; F41.9 Anxiety disorder, unspecified; G47.9 Sleep disorder, unspecified; E56.9 Vitamin deficiency, unspecified; E61.9 Deficiency of nutrient element, unspecified; D64.9 Anemia, unspecified; F45.9 Somatoform disorder, unspecified; D47.2 Monoclonal gammopathy; Z77.120 Contact with and (suspected) exposure to mold (toxic); Z88.9 Allergy status to unspecified drugs, medicaments and biological substances
CPT/HCPCS: 36415; 80053; 82306; 82525; 83090; 83615; 84436; 84439; 84443; 84481; 84482; 84550; 85025; 85379; 85384; 85652; 86140

== ENCOUNTER → 2023-01-13 | Outpatient (CLI) | payer MEDICAID, SELFPAY ==
[2023-01-13 10:03] LABS: Absolute Lymphocyte Count 1.18 X10^3/uL (0.83-4.51); Absolute Neutrophil Count 4.4 X10^3/uL (2.0-7.7); Basophil# 0.04 X10^3/uL; Basophil% 0.6 % (0-1); Eosinophil# 0.21 X10^3/uL; Eosinophils% 3.2 % (0-5); Hematocrit 36.2 % (37-47); Hemoglobin 11.6 g/dL (12.0-15.0); Lymphocyte # 1.18 X10^3/ul (0.83-4.51); Lymphocyte % 18.2 % (19-41); Mean Corpuscular Hgb 29.5 pg (27.0-32.0); Mean Corpuscular Volume 92.1 fL (81-99); Mean Platelet Vol. 11.4 fl (6.2-12.0); Monocyte# 0.66 X10^3/uL; Monocyte% 10.2 % (0-10); NRBC Flagged by Analyzer 0 % (0-5); Neutrophil # 4.39 X10^3/uL (2.7-7.7); Neutrophil % 67.5 % (47-70); Platelet Count 305 K/mm3 (150-450); RBC Distribution Width CV 16.9 % (11.6-14.6); RBC Distribution Width SD 57.2 fl (35.1-43.9); Red Blood Count 3.93 M/mm3 (4.2-5.4); White Blood Count 6.5 K/mm3 (4.4-11.0)
[2023-01-13 10:04] LABS: Erythrocyte Sedimentation Rate 8 mm/hr (0-30); Vacuolated Cells 6.5
[2023-01-13 10:28] LABS: Fibrinogen 452 mg/dl (203-444)
[2023-01-13 10:32] LABS: Vitamin D,25 Hydroxy 61.5 ng/mL
[2023-01-13 11:10] LABS: ALB/GLOB Ratio 0.9 RATIO (0.9-2.4); AST(SGOT) 16 U/L (15-37); Alanine Aminotransfer ALT/SGPT 32 U/L (13-56); Albumin, Serum 3.1 g/dL (3.2-5.0); Alkaline Phosphatase 78 U/L (45-117); Anion Gap 4 (5-15); BUN 26 mg/dL (7-18); BUN/Creat Ratio 38.6 RATIO (10-20); CRP < 2.90 mg/L (0.0-3.0); Calcium,Total 9.6 mg/dL (8.5-10.1); Chloride 107 mmol/L (98-107); Cholesterol 206 mg/dL (200); Creatinine, Serum 0.67 mg/dL (0.55-1.02); EST Glomerular Filtration Rate 96 mL/min (>60); Est Glom Filt Rate - Afr Amer 116 mL/min (>60); Free T3 2.4 pg/mL (2.18-3.98); GGTP 10 U/L (5-55); Globulin 3.3 g/dL (2.2-4.2); Glucose 97 mg/dL (74-106); High Density Lipoprotein 84 mg/dL; LDH 203 U/L (84-246); Potassium 3.8 mmol/L (3.5-5.1); Protein, Total 6.4 g/dL (6.4-8.2); Sodium Level 139 mmol/L (136-145); T3 Uptake 40 % (30-39); T4 Free Direct 1.35 ng/dL (0.76-1.46); Thyroid Stim Hormone (TSH) 0.02 uIU/mL (0.358-3.74); Triglycerides 20 mg/dL; Uric Acid 5.3 mg/dL (2.6-6.0); Very Low Density Lipoprotein 4 mg/dL (5-40)
[2023-01-13 11:33] LABS: Homocysteine 5.1 umol/L (3.2-10.7)
[2023-01-24 15:07] LABS: Copper, Serum or Plasma 144 ug/dL (80-158); Insulin Like Growth Factor 200 ng/mL (60-207); T3 Reverse 16.6 ng/dL (9.2-24.1)
== END | disposition home or self-care (01) ==
PROVIDERS: PCP Family Medicine
DX: E03.9 Hypothyroidism, unspecified (principal); C90.00 Multiple myeloma not having achieved remission; E46 Unspecified protein-calorie malnutrition; Z77.120 Contact with and (suspected) exposure to mold (toxic); Z88.9 Allergy status to unspecified drugs, medicaments and biological substances; R53.83 Other fatigue; E56.9 Vitamin deficiency, unspecified; E61.9 Deficiency of nutrient element, unspecified; D64.9 Anemia, unspecified; F45.9 Somatoform disorder, unspecified; D47.2 Monoclonal gammopathy; G47.9 Sleep disorder, unspecified; R77.8 Other specified abnormalities of plasma proteins
CPT/HCPCS: 36415; 80053; 80061; 82306; 82525; 82977; 83090; 83525; 83615; 84305; 84436; 84439; 84443; 84479; 84481; 84482; 84550; 85025; 85384; 85652; 86140

== ENCOUNTER → 2023-02-25 | Outpatient (CLI) | payer MEDICAID, SELFPAY ==
[2023-02-25 10:20] LABS: Erythrocyte Sedimentation Rate 8 mm/hr (0-30)
[2023-02-25 10:22] LABS: Absolute Lymphocyte Count 1.03 X10^3/uL (0.83-4.51); Absolute Neutrophil Count 2.3 X10^3/uL (2.0-7.7); Basophil# 0.04 X10^3/uL; Eosinophil# 0.17 X10^3/uL; Eosinophils% 4.3 % (0-5); Hematocrit 36.2 % (37-47); Hemoglobin 11.8 g/dL (12.0-15.0); Lymphocyte # 1.03 X10^3/ul (0.83-4.51); Lymphocyte % 25.9 % (19-41); Mean Corp Hgb Conc 32.6 g/dL (32-36); Mean Corpuscular Hgb 29.4 pg (27.0-32.0); Mean Corpuscular Volume 90.3 fL (81-99); Mean Platelet Vol. 11.2 fl (6.2-12.0); Monocyte# 0.46 X10^3/uL; Monocyte% 11.6 % (0-10); NRBC Flagged by Analyzer 0 % (0-5); Neutrophil # 2.27 X10^3/uL (2.7-7.7); Neutrophil % 56.9 % (47-70); Platelet Count 279 K/mm3 (150-450); RBC Distribution Width CV 17.5 % (11.6-14.6); RBC Distribution Width SD 58.5 fl (35.1-43.9); Red Blood Count 4.01 M/mm3 (4.2-5.4)
[2023-02-25 10:48] LABS: Hemoglobin A1c 5.4 % (3.8-5.6)
[2023-02-25 10:50] LABS: Fibrinogen 397 mg/dl (203-444)
[2023-02-25 11:22] LABS: AST(SGOT) 22 U/L (15-37); Alanine Aminotransfer ALT/SGPT 38 U/L (13-56); Albumin, Serum 3.1 g/dL (3.2-5.0); Alkaline Phosphatase 80 U/L (45-117); Anion Gap 5 (5-15); BUN 23 mg/dL (7-18); BUN/Creat Ratio 37.5 RATIO (10-20); CRP < 2.90 mg/L (0.0-3.0); Calcium,Total 9.1 mg/dL (8.5-10.1); Chloride 107 mmol/L (98-107); Creatinine, Serum 0.61 mg/dL (0.55-1.02); EST Glomerular Filtration Rate 106 mL/min (>60); Est Glom Filt Rate - Afr Amer 129 mL/min (>60); Ferritin 8 ng/mL (8-252); Free T3 1.9 pg/mL (2.18-3.98); GGTP 8 U/L (5-55); Globulin 3.2 g/dL (2.2-4.2); Glucose 94 mg/dL (74-106); LDH 191 U/L (84-246); Potassium 3.7 mmol/L (3.5-5.1); Protein, Total 6.3 g/dL (6.4-8.2); Sodium Level 138 mmol/L (136-145); T3 Uptake 34 % (30-39); T4 Free Direct 1.08 ng/dL (0.76-1.46); T4 Total, Thyroxin 8.9 ug/dL (4.8-13.9); Thyroid Stim Hormone (TSH) 0.09 uIU/mL (0.358-3.74); Uric Acid 4.5 mg/dL (2.6-6.0)
[2023-03-06 07:07] LABS: Alkaline Phosphatase, Serum 83 IU/L (44-121); Bone Fraction 47 % (14-68); Copper, Serum or Plasma 124 ug/dL (80-158); Intestinal Fraction 1 % (0-18); LDH 153 IU/L (119-226); LDH Fraction 1 24 % (17-32); LDH Fraction 2 33 % (25-40); LDH Fraction 3 26 % (17-27); LDH Fraction 4 8 % (5-13); LDH Fraction 5 9 % (4-20); Liver Fraction 52 % (18-85); T3 Reverse 11.6 ng/dL (9.2-24.1)
== END | disposition home or self-care (01) ==
PROVIDERS: PCP Family Medicine
DX: E03.9 Hypothyroidism, unspecified (principal); C90.00 Multiple myeloma not having achieved remission; E46 Unspecified protein-calorie malnutrition; R53.83 Other fatigue; E56.9 Vitamin deficiency, unspecified; E61.9 Deficiency of nutrient element, unspecified; D64.9 Anemia, unspecified; F45.9 Somatoform disorder, unspecified; D47.2 Monoclonal gammopathy; G47.9 Sleep disorder, unspecified; R77.8 Other specified abnormalities of plasma proteins; Z77.120 Contact with and (suspected) exposure to mold (toxic); Z88.9 Allergy status to unspecified drugs, medicaments and biological substances
CPT/HCPCS: 36415; 80053; 82525; 82728; 82977; 83036; 83090; 83615; 83625; 84075; 84080; 84436; 84439; 84443; 84479; 84481; 84482; 84550; 85025; 85384; 85652; 86140

== ENCOUNTER → 2023-05-03 | Outpatient (CLI) | payer MEDICAID, SELFPAY ==
[2023-05-03 10:15] LABS: Absolute Lymphocyte Count 1.03 X10^3/uL (0.83-4.51); Absolute Neutrophil Count 1.9 X10^3/uL (2.0-7.7); Basophil# 0.03 X10^3/uL; Basophil% 0.9 % (0-1); Eosinophil# 0.13 X10^3/uL; Eosinophils% 3.8 % (0-5); Hematocrit 34.7 % (37-47); Hemoglobin 11.1 g/dL (12.0-15.0); Lymphocyte # 1.03 X10^3/ul (0.83-4.51); Lymphocyte % 29.9 % (19-41); Mean Corpuscular Hgb 28.2 pg (27.0-32.0); Mean Corpuscular Volume 88.3 fL (81-99); Mean Platelet Vol. 11.5 fl (6.2-12.0); Monocyte# 0.33 X10^3/uL; Monocyte% 9.6 % (0-10); NRBC Flagged by Analyzer 0 % (0-5); Neutrophil # 1.92 X10^3/uL (2.7-7.7); Neutrophil % 55.5 % (47-70); Platelet Count 327 K/mm3 (150-450); RBC Distribution Width CV 18.7 % (11.6-14.6); RBC Distribution Width SD 59.8 fl (35.1-43.9); Red Blood Count 3.93 M/mm3 (4.2-5.4); White Blood Count 3.5 K/mm3 (4.4-11.0)
[2023-05-03 10:21] LABS: Erythrocyte Sedimentation Rate 6 mm/hr (0-30)
[2023-05-03 10:36] LABS: Fibrinogen 420 mg/dl (203-444)
[2023-05-03 10:48] LABS: Vitamin D,25 Hydroxy 89.2 ng/mL
[2023-05-03 11:00] LABS: Homocysteine 6.1 umol/L (3.2-10.7)
[2023-05-03 11:17] LABS: ALB/GLOB Ratio 1.2 RATIO (0.9-2.4); AST(SGOT) 18 U/L (15-37); Alanine Aminotransfer ALT/SGPT 32 U/L (13-56); Albumin, Serum 3.4 g/dL (3.2-5.0); Alkaline Phosphatase 101 U/L (45-117); Anion Gap 2 (5-15); BUN 31 mg/dL (7-18); BUN/Creat Ratio 49.3 RATIO (10-20); CRP, High Sensitivity Cardiac 0.27 mg/L; Calcium,Total 9.4 mg/dL (8.5-10.1); Chloride 108 mmol/L (98-107); Cholesterol 215 mg/dL (200); Creatinine, Serum 0.63 mg/dL (0.55-1.02); EST Glomerular Filtration Rate 103 mL/min (>60); Est Glom Filt Rate - Afr Amer 125 mL/min (>60); Ferritin 6 ng/mL (8-252); Free T3 1.7 pg/mL (2.18-3.98); Globulin 2.9 g/dL (2.2-4.2); Glucose 94 mg/dL (74-106); High Density Lipoprotein 81 mg/dL; Iron 111 ug/dL (50-170); Iron Binding Capacity,Total 451 ug/dL (250-450); LDH 166 U/L (84-246); PERCENT IRON SATURATION 24.6 % (15.0-55.0); Potassium 3.5 mmol/L (3.5-5.1); Protein, Total 6.3 g/dL (6.4-8.2); Sodium Level 137 mmol/L (136-145); T3 Uptake 35 % (30-39); T4 Free Direct 1.05 ng/dL (0.76-1.46); T4 Total, Thyroxin 7.5 ug/dL (4.8-13.9); T7 / Free Thyroxin Index 2.6 (1.4-4.5); Thyroid Stim Hormone (TSH) 0.87 uIU/mL (0.358-3.74); Triglycerides 33 mg/dL; Uric Acid 4.7 mg/dL (2.6-6.0); Very Low Density Lipoprotein 7 mg/dL (5-40)
[2023-05-11 16:09] LABS: Alkaline Phosphatase, Serum 100 IU/L (44-121); Bone Fraction 66 % (14-68); Copper, Serum or Plasma 132 ug/dL (80-158); Insulin Like Growth Factor 211 ng/mL (60-207); Intestinal Fraction 1 % (0-18); Liver Fraction 34 % (18-85); Thyroglobulin Antibody < 1.0 IU/mL (0.0-0.9); Thyroid Peroxidase AB 66 IU/mL (0-34)
== END | disposition home or self-care (01) ==
PROVIDERS: PCP Family Medicine; Referring Provider Naturopath; Visit Provider Naturopath
DX: E03.9 Hypothyroidism, unspecified (principal); C90.00 Multiple myeloma not having achieved remission; E46 Unspecified protein-calorie malnutrition; D47.1 Chronic myeloproliferative disease; R53.83 Other fatigue; E56.9 Vitamin deficiency, unspecified; E61.9 Deficiency of nutrient element, unspecified; D64.9 Anemia, unspecified; F45.9 Somatoform disorder, unspecified; G47.9 Sleep disorder, unspecified; R77.8 Other specified abnormalities of plasma proteins; R79.0 Abnormal level of blood mineral; Z77.120 Contact with and (suspected) exposure to mold (toxic); Z88.9 Allergy status to unspecified drugs, medicaments and biological substances
CPT/HCPCS: 36415; 80053; 80061; 82306; 82525; 82728; 83090; 83540; 83550; 83615; 84075; 84080; 84305; 84436; 84439; 84443; 84479; 84480; 84481; 84550; 85025; 85384; 85652; 86141; 86376; 86800

== ENCOUNTER → 2023-06-13 | Outpatient (CLI) | payer MEDICAID, SELFPAY ==
[2023-06-13 10:33] LABS: Erythrocyte Sedimentation Rate 10 mm/hr (0-30)
[2023-06-13 10:35] LABS: Absolute Lymphocyte Count 1.11 X10^3/uL (0.83-4.51); Absolute Neutrophil Count 2.8 X10^3/uL (2.0-7.7); Basophil# 0.03 X10^3/uL; Basophil% 0.6 % (0-1); Eosinophil# 0.12 X10^3/uL; Eosinophils% 2.6 % (0-5); Hematocrit 34.1 % (37-47); Hemoglobin 10.8 g/dL (12.0-15.0); Lymphocyte # 1.11 X10^3/ul (0.83-4.51); Lymphocyte % 23.8 % (19-41); Mean Corp Hgb Conc 31.7 g/dL (32-36); Mean Corpuscular Hgb 28.2 pg (27.0-32.0); Mean Platelet Vol. 11.4 fl (6.2-12.0); Monocyte# 0.56 X10^3/uL; NRBC Flagged by Analyzer 0 % (0-5); Neutrophil # 2.83 X10^3/uL (2.7-7.7); Neutrophil % 60.6 % (47-70); POSITIVE MORPHOLOGY YES; Platelet Count 338 K/mm3 (150-450); RBC Distribution Width CV 20.4 % (11.6-14.6); RBC Distribution Width SD 66.2 fl (35.1-43.9); Red Blood Count 3.83 M/mm3 (4.2-5.4); White Blood Count 4.7 K/mm3 (4.4-11.0)
[2023-06-13 10:39] LABS: Differential Indicated SCAN CRITERIA MET
[2023-06-13 11:28] LABS: AST(SGOT) 22 U/L (15-37); Alanine Aminotransfer ALT/SGPT 31 U/L (13-56); Alkaline Phosphatase 93 U/L (45-117); Anion Gap 4 (5-15); BUN 26 mg/dL (7-18); BUN/Creat Ratio 40.2 RATIO (10-20); CRP, High Sensitivity Cardiac 0.84 mg/L; Calcium,Total 9.2 mg/dL (8.5-10.1); Chloride 108 mmol/L (98-107); Creatinine, Serum 0.65 mg/dL (0.55-1.02); EST Glomerular Filtration Rate 100 mL/min (>60); Est Glom Filt Rate - Afr Amer 121 mL/min (>60); Ferritin 6 ng/mL (8-252); Globulin 3.1 g/dL (2.2-4.2); Glucose 97 mg/dL (74-106); LDH 185 U/L (84-246); Potassium 3.7 mmol/L (3.5-5.1); Protein, Total 6.1 g/dL (6.4-8.2); Sodium Level 140 mmol/L (136-145); Uric Acid 4.6 mg/dL (2.6-6.0)
[2023-06-13 11:46] LABS: Anisocytosis 2+; Differential Comment SCANNED; Macrocytosis 1+; Microcytosis 1+
[2023-06-13 12:04] LABS: Fibrinogen 469 mg/dl (203-444)
[2023-06-16 07:08] LABS: Copper, Serum or Plasma 152 ug/dL (80-158); Insulin Like Growth Factor 186 ng/mL (60-207)
== END | disposition home or self-care (01) ==
PROVIDERS: PCP Family Medicine; Referring Provider Naturopath; Visit Provider Naturopath
DX: E03.9 Hypothyroidism, unspecified (principal); C90.00 Multiple myeloma not having achieved remission; E46 Unspecified protein-calorie malnutrition; Z77.120 Contact with and (suspected) exposure to mold (toxic); Z88.9 Allergy status to unspecified drugs, medicaments and biological substances; R53.83 Other fatigue; F41.9 Anxiety disorder, unspecified; G47.9 Sleep disorder, unspecified; E56.9 Vitamin deficiency, unspecified; E61.9 Deficiency of nutrient element, unspecified; D64.9 Anemia, unspecified; R77.8 Other specified abnormalities of plasma proteins; I89.0 Lymphedema, not elsewhere classified; R79.0 Abnormal level of blood mineral; R60.1 Generalized edema; R09.81 Nasal congestion; F45.9 Somatoform disorder, unspecified; D47.2 Monoclonal gammopathy; K59.00 Constipation, unspecified
CPT/HCPCS: 36415; 80053; 82525; 82728; 83615; 84305; 84550; 85025; 85384; 85652; 86141

== ENCOUNTER → 2023-06-20 | Outpatient (CLI) | payer MEDICAID, SELFPAY ==
[2023-06-20 15:36] LABS: Absolute Lymphocyte Count 1.07 X10^3/uL (0.83-4.51); Absolute Neutrophil Count 3.5 X10^3/uL (2.0-7.7); Basophil# 0.05 X10^3/uL; Eosinophils% 1.9 % (0-5); Hematocrit 33.5 % (37-47); Hemoglobin 10.8 g/dL (12.0-15.0); Lymphocyte # 1.07 X10^3/ul (0.83-4.51); Lymphocyte % 20.8 % (19-41); Mean Corp Hgb Conc 32.2 g/dL (32-36); Mean Corpuscular Hgb 28.3 pg (27.0-32.0); Mean Corpuscular Volume 87.9 fL (81-99); Mean Platelet Vol. 11.4 fl (6.2-12.0); Monocyte% 7.8 % (0-10); NRBC Flagged by Analyzer 0 % (0-5); Neutrophil # 3.52 X10^3/uL (2.7-7.7); Neutrophil % 68.5 % (47-70); Platelet Count 324 K/mm3 (150-450); RBC Distribution Width CV 19.8 % (11.6-14.6); RBC Distribution Width SD 63.5 fl (35.1-43.9); Red Blood Count 3.81 M/mm3 (4.2-5.4); White Blood Count 5.1 K/mm3 (4.4-11.0)
[2023-06-20 16:02] LABS: ALB/GLOB Ratio 1.1 RATIO (0.9-2.4); AST(SGOT) 19 U/L (15-37); Alanine Aminotransfer ALT/SGPT 27 U/L (13-56); Albumin, Serum 3.2 g/dL (3.2-5.0); Alkaline Phosphatase 90 U/L (45-117); Anion Gap 2 (5-15); BUN 32 mg/dL (7-18); BUN/Creat Ratio 41.7 RATIO (10-20); Calcium,Total 9.7 mg/dL (8.5-10.1); Chloride 107 mmol/L (98-107); Creatinine, Serum 0.77 mg/dL (0.55-1.02); EST Glomerular Filtration Rate 82 mL/min (>60); Est Glom Filt Rate - Afr Amer 99 mL/min (>60); Glucose 102 mg/dL (74-106); Potassium 3.9 mmol/L (3.5-5.1); Protein, Total 6.2 g/dL (6.4-8.2); Sodium Level 139 mmol/L (136-145)
== END | disposition home or self-care (01) ==
LOC: MTLAB 12:43
PROVIDERS: PCP Family Medicine; Referring Provider Naturopath; Visit Provider Naturopath
DX: E03.9 Hypothyroidism, unspecified (principal); C90.00 Multiple myeloma not having achieved remission; R53.83 Other fatigue; F41.9 Anxiety disorder, unspecified; G47.9 Sleep disorder, unspecified; E56.9 Vitamin deficiency, unspecified; E61.9 Deficiency of nutrient element, unspecified; D64.9 Anemia, unspecified; E46 Unspecified protein-calorie malnutrition; I89.0 Lymphedema, not elsewhere classified; R77.8 Other specified abnormalities of plasma proteins; R60.1 Generalized edema; R09.81 Nasal congestion; F45.9 Somatoform disorder, unspecified; D47.2 Monoclonal gammopathy; R52 Pain, unspecified; K59.00 Constipation, unspecified; Z77.120 Contact with and (suspected) exposure to mold (toxic); Z88.9 Allergy status to unspecified drugs, medicaments and biological substances
CPT/HCPCS: 36415; 80053; 85025

== ENCOUNTER → 2023-09-06 | Outpatient (CLI) | payer MEDICAID, SELFPAY ==
[2023-09-06 16:38] LABS: T4 Free Direct 1.05 ng/dL (0.76-1.46); Thyroid Stim Hormone (TSH) 0.63 uIU/mL (0.358-3.74)
== END | disposition home or self-care (01) ==
LOC: MTLAB 13:08
PROVIDERS: PCP Family Medicine; Referring Provider Internal Medicine Endocrinology, Diabetes & Metabolism; Visit Provider Internal Medicine Endocrinology, Diabetes & Metabolism
DX: E03.8 Other specified hypothyroidism (principal); E06.3 Autoimmune thyroiditis
CPT/HCPCS: 36415; 84439; 84443

== ENCOUNTER → 2023-09-08 | Outpatient (CLI) | payer MEDICAID, SELFPAY ==
[2023-09-08 10:04] LABS: Absolute Lymphocyte Count 1.17 X10^3/uL (0.83-4.51); Absolute Neutrophil Count 3.3 X10^3/uL (2.0-7.7); Basophil# 0.03 X10^3/uL; Basophil% 0.6 % (0-1); Eosinophil# 0.16 X10^3/uL; Eosinophils% 3.1 % (0-5); Hematocrit 35.2 % (37-47); Hemoglobin 11.2 g/dL (12.0-15.0); Lymphocyte # 1.17 X10^3/ul (0.83-4.51); Lymphocyte % 22.6 % (19-41); Mean Corp Hgb Conc 31.8 g/dL (32-36); Mean Platelet Vol. 11.2 fl (6.2-12.0); Monocyte# 0.52 X10^3/uL; Monocyte% 10.1 % (0-10); NRBC Flagged by Analyzer 0 % (0-5); Neutrophil # 3.28 X10^3/uL (2.7-7.7); Neutrophil % 63.4 % (47-70); POSITIVE MORPHOLOGY YES; Platelet Count 249 K/mm3 (150-450); RBC Distribution Width SD 65.6 fl (35.1-43.9); White Blood Count 5.2 K/mm3 (4.4-11.0)
[2023-09-08 10:06] LABS: Differential Indicated SCAN CRITERIA MET
[2023-09-08 10:08] LABS: Erythrocyte Sedimentation Rate 7 mm/hr (0-30)
[2023-09-08 10:25] LABS: Anisocytosis 2+; Differential Comment SCANNED
[2023-09-08 10:41] LABS: D-Dimer Quantitative (DVT/PE) 0.57 FEU/ug/m (0.27-0.49)
[2023-09-08 10:42] LABS: Fibrinogen 377 mg/dl (203-444)
[2023-09-08 15:23] LABS: Hemoglobin A1c 5.4 % (3.8-5.6)
[2023-09-08 16:44] LABS: AST(SGOT) 18 U/L (15-37); Alanine Aminotransfer ALT/SGPT 27 U/L (13-56); Alkaline Phosphatase 72 U/L (45-117); Anion Gap 4 (5-15); BUN 34 mg/dL (7-18); BUN/Creat Ratio 53.1 RATIO (10-20); CRP, High Sensitivity Cardiac 0.47 mg/L; Calcium,Total 9.6 mg/dL (8.5-10.1); Chloride 109 mmol/L (98-107); Cholesterol 176 mg/dL (200); Creatinine, Serum 0.64 mg/dL (0.55-1.02); EST Glomerular Filtration Rate 101 mL/min (>60); Est Glom Filt Rate - Afr Amer 122 mL/min (>60); Ferritin 6 ng/mL (8-252); Globulin 3.1 g/dL (2.2-4.2); Glucose 100 mg/dL (74-106); High Density Lipoprotein 65 mg/dL; LDH 156 U/L (84-246); Potassium 3.6 mmol/L (3.5-5.1); Protein, Total 6.1 g/dL (6.4-8.2); Sodium Level 141 mmol/L (136-145); Triglycerides 26 mg/dL; Uric Acid 4.2 mg/dL (2.6-6.0); Very Low Density Lipoprotein 5 mg/dL (5-40)
[2023-09-12 14:08] LABS: Alkaline Phosphatase, Serum 77 IU/L (44-121); Bone Fraction 54 % (14-68); Copper, Serum or Plasma 114 ug/dL (80-158); Insulin Like Growth Factor 208 ng/mL (60-207); Intestinal Fraction 1 % (0-18); Liver Fraction 45 % (18-85)
== END | disposition home or self-care (01) ==
PROVIDERS: PCP Family Medicine; Referring Provider Naturopath; Visit Provider Naturopath
DX: E03.9 Hypothyroidism, unspecified (principal); C90.00 Multiple myeloma not having achieved remission; Z77.120 Contact with and (suspected) exposure to mold (toxic); Z88.9 Allergy status to unspecified drugs, medicaments and biological substances; R53.83 Other fatigue; D64.9 Anemia, unspecified; F45.9 Somatoform disorder, unspecified; D47.2 Monoclonal gammopathy; E46 Unspecified protein-calorie malnutrition; R77.8 Other specified abnormalities of plasma proteins; R79.0 Abnormal level of blood mineral; G47.9 Sleep disorder, unspecified; E56.9 Vitamin deficiency, unspecified
CPT/HCPCS: 36415; 80053; 80061; 82525; 82728; 83036; 83090; 83615; 84075; 84080; 84305; 84550; 85025; 85379; 85384; 85652; 86141

== ENCOUNTER → 2023-12-08 | Outpatient (CLI) | payer MEDICAID, SELFPAY ==
[2023-12-08 10:16] LABS: Absolute Lymphocyte Count 1.15 X10^3/uL (0.83-4.51); Absolute Neutrophil Count 1.8 X10^3/uL (2.0-7.7); Basophil# 0.02 X10^3/uL; Basophil% 0.6 % (0-1); Eosinophil# 0.12 X10^3/uL; Eosinophils% 3.4 % (0-5); Hematocrit 32.8 % (37-47); Hemoglobin 10.6 g/dL (12.0-15.0); Lymphocyte # 1.15 X10^3/ul (0.83-4.51); Mean Corp Hgb Conc 32.3 g/dL (32-36); Mean Corpuscular Hgb 29.1 pg (27.0-32.0); Mean Corpuscular Volume 90.1 fL (81-99); Mean Platelet Vol. 10.4 fl (6.2-12.0); Monocyte# 0.39 X10^3/uL; Monocyte% 11.2 % (0-10); NRBC Flagged by Analyzer 0 % (0-5); Neutrophil % 51.5 % (47-70); Platelet Count 283 K/mm3 (150-450); RBC Distribution Width CV 18.1 % (11.6-14.6); RBC Distribution Width SD 59.5 fl (35.1-43.9); Red Blood Count 3.64 M/mm3 (4.2-5.4); White Blood Count 3.5 K/mm3 (4.4-11.0)
[2023-12-08 10:22] LABS: Erythrocyte Sedimentation Rate 3 mm/hr (0-30)
[2023-12-08 10:38] LABS: Fibrinogen 236 mg/dl (203-444); T3 Total - Triiodothyronine 0.62 ng/mL (0.6-1.81); Vitamin D,25 Hydroxy 93.4 ng/mL
[2023-12-08 11:03] LABS: ALB/GLOB Ratio 1.1 RATIO (0.9-2.4); AST(SGOT) 16 U/L (15-37); Alanine Aminotransfer ALT/SGPT 27 U/L (13-56); Albumin, Serum 3.2 g/dL (3.2-5.0); Alkaline Phosphatase 86 U/L (45-117); Anion Gap 6 (5-15); BUN 21 mg/dL (7-18); BUN/Creat Ratio 33.6 RATIO (10-20); Calcium,Total 9.5 mg/dL (8.5-10.1); Chloride 105 mmol/L (98-107); Creatinine, Serum 0.62 mg/dL (0.55-1.02); EST Glomerular Filtration Rate 104 mL/min (>60); Est Glom Filt Rate - Afr Amer 126 mL/min (>60); Free T3 1.3 pg/mL (2.18-3.98); Globulin 2.9 g/dL (2.2-4.2); Glucose 91 mg/dL (74-106); Iron 25 ug/dL (50-170); Iron Binding Capacity,Total 380 ug/dL (250-450); LDH 146 U/L (84-246); PERCENT IRON SATURATION 6.6 % (15.0-55.0); Potassium 3.5 mmol/L (3.5-5.1); Protein, Total 6.1 g/dL (6.4-8.2); Sodium Level 138 mmol/L (136-145); T4 Free Direct 1.02 ng/dL (0.76-1.46); T4 Total, Thyroxin 6.9 ug/dL (4.8-13.9)
[2023-12-09 15:09] LABS: CRP, High Sensitivity 0.19 mg/L (0.00-3.00); HOMOCYSTEINE 7.1 umol/L (0.0-14.5)
[2023-12-14 22:07] LABS: Alkaline Phosphatase, Serum 92 IU/L (44-121); Bone Fraction 60 % (14-68); Copper, Serum or Plasma 111 ug/dL (80-158); GGTP 8 IU/L (0-60); Insulin Level 2.7 uIU/mL (2.6-24.9); Intestinal Fraction 0 % (0-18); Liver Fraction 39 % (18-85); T3 Reverse 15.2 ng/dL (9.2-24.1); T3UP 30 % (24-39); Thyroglobulin Antibody < 1.0 IU/mL (0.0-0.9); Thyroid Peroxidase AB 31 IU/mL (0-34)
== END | disposition home or self-care (01) ==
PROVIDERS: PCP Family Medicine; Referring Provider Naturopath; Visit Provider Naturopath
DX: E03.9 Hypothyroidism, unspecified (principal); C90.00 Multiple myeloma not having achieved remission; R53.83 Other fatigue; E56.9 Vitamin deficiency, unspecified; D64.9 Anemia, unspecified; E61.9 Deficiency of nutrient element, unspecified; F45.9 Somatoform disorder, unspecified; D47.2 Monoclonal gammopathy; E46 Unspecified protein-calorie malnutrition; R77.8 Other specified abnormalities of plasma proteins; G47.9 Sleep disorder, unspecified; Z77.120 Contact with and (suspected) exposure to mold (toxic)
CPT/HCPCS: 36415; 80053; 82306; 82525; 82977; 83090; 83525; 83540; 83550; 83615; 84075; 84080; 84436; 84439; 84443; 84479; 84480; 84481; 84482; 85025; 85384; 85652; 86141; 86376; 86800

== ENCOUNTER → 2024-02-07 | Outpatient (CLI) | payer MEDICAID, SELFPAY ==
[2024-02-07 10:13] LABS: Erythrocyte Sedimentation Rate 5 mm/hr (0-30)
[2024-02-07 10:15] LABS: Absolute Lymphocyte Count 1.03 X10^3/uL (0.83-4.51); Absolute Neutrophil Count 1.8 X10^3/uL (2.0-7.7); Basophil# 0.04 X10^3/uL; Basophil% 1.2 % (0-1); Eosinophil# 0.12 X10^3/uL; Eosinophils% 3.6 % (0-5); Hematocrit 30.6 % (37-47); Hemoglobin 9.8 g/dL (12.0-15.0); Lymphocyte # 1.03 X10^3/ul (0.83-4.51); Lymphocyte % 30.7 % (19-41); Mean Corpuscular Hgb 27.9 pg (27.0-32.0); Mean Corpuscular Volume 87.2 fL (81-99); Mean Platelet Vol. 10.9 fl (6.2-12.0); Monocyte# 0.39 X10^3/uL; Monocyte% 11.6 % (0-10); NRBC Flagged by Analyzer 0 % (0-5); Neutrophil # 1.78 X10^3/uL (2.7-7.7); Neutrophil % 52.9 % (47-70); Platelet Count 319 K/mm3 (150-450); RBC Distribution Width CV 18.2 % (11.6-14.6); RBC Distribution Width SD 58.5 fl (35.1-43.9); Red Blood Count 3.51 M/mm3 (4.2-5.4); White Blood Count 3.4 K/mm3 (4.4-11.0)
[2024-02-07 10:30] LABS: Fibrinogen 338 mg/dl (203-444)
[2024-02-07 11:31] LABS: Hemoglobin A1c 5.6 % (3.8-5.6)
[2024-02-07 14:59] LABS: ALB/GLOB Ratio 1.3 RATIO (0.9-2.4); AST(SGOT) 12 U/L (15-37); Alanine Aminotransfer ALT/SGPT 25 U/L (13-56); Albumin, Serum 3.3 g/dL (3.2-5.0); Alkaline Phosphatase 79 U/L (45-117); Anion Gap 5 (5-15); BUN 27 mg/dL (7-18); BUN/Creat Ratio 43.5 RATIO (10-20); Chloride 107 mmol/L (98-107); Cholesterol 218 mg/dL (200); Creatinine, Serum 0.62 mg/dL (0.55-1.02); EST Glomerular Filtration Rate 105 mL/min (>60); Est Glom Filt Rate - Afr Amer 127 mL/min (>60); Ferritin 5 ng/mL (8-252); Free T3 1.6 pg/mL (2.18-3.98); Globulin 2.6 g/dL (2.2-4.2); Glucose 86 mg/dL (74-106); High Density Lipoprotein 94 mg/dL; Iron 37 ug/dL (50-170); Iron Binding Capacity,Total 424 ug/dL (250-450); LDH 163 U/L (84-246); PERCENT IRON SATURATION 8.7 % (15.0-55.0); Potassium 3.7 mmol/L (3.5-5.1); Protein, Total 5.9 g/dL (6.4-8.2); Sodium Level 139 mmol/L (136-145); T4 Free Direct 1.11 ng/dL (0.76-1.46); T4 Total, Thyroxin 9.4 ug/dL (4.8-13.9); Triglycerides 22 mg/dL; Uric Acid 4.2 mg/dL (2.6-6.0); Very Low Density Lipoprotein 4 mg/dL (5-40)
[2024-02-08 05:08] LABS: CRP, High Sensitivity 0.18 mg/L (0.00-3.00); HOMOCYSTEINE 7.7 umol/L (0.0-14.5)
[2024-02-11 10:09] LABS: Alkaline Phosphatase, Serum 79 IU/L (44-121); Bone Fraction 62 % (14-68); Copper, Serum or Plasma 114 ug/dL (80-158); G6PD Quant Test 255 (127-427); GGTP 7 IU/L (0-60); Insulin Like Growth Factor 125 ng/mL (60-207); Intestinal Fraction 0 % (0-18); Liver Fraction 38 % (18-85); Red Blood Cell Count Test/G6PD 3.52 x10E6/uL (3.77-5.28); T3 Reverse 15.5 ng/dL (9.2-24.1); T3UP 29 % (24-39); Thyroid Peroxidase AB 30 IU/mL (0-34)
== END | disposition home or self-care (01) ==
LOC: MTLAB 07:08
PROVIDERS: PCP Family Medicine; Referring Provider Naturopath; Visit Provider Naturopath
DX: E03.9 Hypothyroidism, unspecified (principal); C90.00 Multiple myeloma not having achieved remission; R53.83 Other fatigue; F41.9 Anxiety disorder, unspecified; G47.9 Sleep disorder, unspecified; E56.9 Vitamin deficiency, unspecified; D64.9 Anemia, unspecified; E46 Unspecified protein-calorie malnutrition; I89.0 Lymphedema, not elsewhere classified; R77.8 Other specified abnormalities of plasma proteins; R60.1 Generalized edema; R09.81 Nasal congestion; F45.9 Somatoform disorder, unspecified; D47.2 Monoclonal gammopathy; R52 Pain, unspecified; K59.00 Constipation, unspecified; Z77.120 Contact with and (suspected) exposure to mold (toxic); Z88.9 Allergy status to unspecified drugs, medicaments and biological substances; R79.0 Abnormal level of blood mineral
CPT/HCPCS: 36415; 80053; 80061; 82306; 82525; 82728; 82955; 82977; 83036; 83090; 83540; 83550; 83615; 84075; 84080; 84305; 84436; 84439; 84443; 84479; 84480; 84481; 84482; 84550; 85025; 85384; 85652; 86141; 86376

== ENCOUNTER → 2024-03-07 | Outpatient (CLI) | payer MEDICAID, SELFPAY ==
[2024-03-12 09:22] LABS: H. PYLORI STOOL AG Negative (Negative); Pancreatic Elastase, Fecal > 800 (>200)
[2024-03-13 19:07] LABS: pH, Stool 6.5 (7.0-7.5)
== END | disposition home or self-care (01) ==
LOC: MFPLAB 08:42 → LABSPEC 08:46
PROVIDERS: PCP Family Medicine; Referring Provider Family Medicine; Visit Provider Family Medicine
DX: R19.7 Diarrhea, unspecified (principal)
CPT/HCPCS: 82653; 83630; 83986; 87177; 87209; 87338; 87506

== ENCOUNTER → 2024-03-08 | Outpatient (CLI) | payer MEDICAID, SELFPAY | END | disposition home or self-care (01) | LOC: LABSPEC 09:31 | PROVIDERS: PCP Family Medicine; Referring Provider Family Medicine; Visit Provider Family Medicine | DX: R19.7 Diarrhea, unspecified (principal) | CPT/HCPCS: 87177; 87209 ==

== ENCOUNTER 2024-03-09 08:45 | Outpatient (CLI) | payer MEDICAID, SELFPAY | END 2024-03-09 23:59 | disposition home or self-care (01) | LOC: LABSPEC 08:46 | PROVIDERS: PCP Family Medicine; Referring Provider Family Medicine; Visit Provider Family Medicine | DX: R19.7 Diarrhea, unspecified (principal) | CPT/HCPCS: 87177; 87209 ==

== ENCOUNTER → 2024-04-05 | Outpatient (CLI) | payer MEDICAID, SELFPAY ==
[2024-04-05 10:48] LABS: Erythrocyte Sedimentation Rate 11 mm/hr (0-30)
[2024-04-05 10:51] LABS: Absolute Lymphocyte Count 0.77 X10^3/uL (0.83-4.51); Absolute Neutrophil Count 1.4 X10^3/uL (2.0-7.7); Basophil# 0.04 X10^3/uL; Basophil% 1.6 % (0-1); Eosinophil# 0.06 X10^3/uL; Eosinophils% 2.4 % (0-5); Hematocrit 28.9 % (37-47); Lymphocyte # 0.77 X10^3/ul (0.83-4.51); Lymphocyte % 30.4 % (19-41); Mean Corp Hgb Conc 31.1 g/dL (32-36); Mean Corpuscular Hgb 25.6 pg (27.0-32.0); Mean Corpuscular Volume 82.1 fL (81-99); Mean Platelet Vol. 10.6 fl (6.2-12.0); Monocyte# 0.27 X10^3/uL; Monocyte% 10.7 % (0-10); NRBC Flagged by Analyzer 0 % (0-5); Neutrophil # 1.38 X10^3/uL (2.7-7.7); Neutrophil % 54.5 % (47-70); Platelet Count 418 K/mm3 (150-450); RBC Distribution Width CV 17.5 % (11.6-14.6); RBC Distribution Width SD 52.4 fl (35.1-43.9); Red Blood Count 3.52 M/mm3 (4.2-5.4); White Blood Count 2.5 K/mm3 (4.4-11.0)
[2024-04-05 11:00] LABS: Fibrinogen 373 mg/dl (203-444)
[2024-04-05 11:02] LABS: T3 Total - Triiodothyronine 0.72 ng/mL (0.6-1.81); Vitamin D,25 Hydroxy 83.7 ng/mL
[2024-04-05 11:13] LABS: D-Dimer Quantitative (DVT/PE) 0.27 FEU/ug/m (0.27-0.49)
[2024-04-05 12:01] LABS: Hemoglobin A1c 5.6 % (3.8-5.6)
[2024-04-05 12:10] LABS: AST(SGOT) 16 U/L (15-37); Alanine Aminotransfer ALT/SGPT 31 U/L (13-56); Albumin, Serum 3.2 g/dL (3.2-5.0); Alkaline Phosphatase 92 U/L (45-117); Anion Gap 5 (5-15); BUN 22 mg/dL (7-18); BUN/Creat Ratio 36.4 RATIO (10-20); Calcium,Total 9.5 mg/dL (8.5-10.1); Chloride 104 mmol/L (98-107); Cholesterol 208 mg/dL (200); EST Glomerular Filtration Rate 108 mL/min (>60); Est Glom Filt Rate - Afr Amer 131 mL/min (>60); Ferritin 4 ng/mL (8-252); Free T3 1.5 pg/mL (2.18-3.98); Globulin 3.2 g/dL (2.2-4.2); Glucose 84 mg/dL (74-106); High Density Lipoprotein 105 mg/dL; Iron 15 ug/dL (50-170); Iron Binding Capacity,Total 468 ug/dL (250-450); LDH 170 U/L (84-246); PERCENT IRON SATURATION 3.2 % (15.0-55.0); Potassium 3.4 mmol/L (3.5-5.1); Protein, Total 6.4 g/dL (6.4-8.2); Sodium Level 138 mmol/L (136-145); T4 Free Direct 1.24 ng/dL (0.76-1.46); T4 Total, Thyroxin 10.7 ug/dL (4.8-13.9); Triglycerides 27 mg/dL; Very Low Density Lipoprotein 5 mg/dL (5-40)
[2024-04-10 03:06] LABS: CRP, High Sensitivity 0.27 mg/L (0.00-3.00); Creatinine, Urine 92.6 mg/dL (Not Estab.); HOMOCYSTEINE 8.2 umol/L (0.0-14.5); N-Telopeptide, Urine 467 nmol BCE (Not Estab.); NTX:Creatinine Ratio, Urine 57 (0-89)
[2024-04-11 03:07] LABS: Alkaline Phosphatase, Serum 93 IU/L (44-121); Bone Fraction 52 % (14-68); Ceruloplasmin 29.6 mg/dL (19.0-39.0); Copper, Serum or Plasma 114 ug/dL (80-158); DHEA Sulfate 49.1 ug/dL (29.4-220.5); GGTP 6 IU/L (0-60); Insulin Level 2.9 uIU/mL (2.6-24.9); Insulin Like Growth Factor 113 ng/mL (60-207); Intestinal Fraction 0 % (0-18); LDH 144 IU/L (119-226); LDH Fraction 1 35 % (17-32); LDH Fraction 2 35 % (25-40); LDH Fraction 3 21 % (17-27); LDH Fraction 4 5 % (5-13); LDH Fraction 5 4 % (4-20); Liver Fraction 48 % (18-85); T3 Reverse 20.2 ng/dL (9.2-24.1); T3UP 30 % (24-39); Thyroid Peroxidase AB 27 IU/mL (0-34)
== END | disposition home or self-care (01) ==
PROVIDERS: PCP Family Medicine; Referring Provider Naturopath; Visit Provider Naturopath
DX: E03.9 Hypothyroidism, unspecified (principal); C90.00 Multiple myeloma not having achieved remission; R53.83 Other fatigue; F41.9 Anxiety disorder, unspecified; G47.9 Sleep disorder, unspecified; E56.9 Vitamin deficiency, unspecified; E61.9 Deficiency of nutrient element, unspecified; D64.9 Anemia, unspecified; E46 Unspecified protein-calorie malnutrition; I89.0 Lymphedema, not elsewhere classified; R77.8 Other specified abnormalities of plasma proteins; R60.1 Generalized edema; R09.81 Nasal congestion; F45.9 Somatoform disorder, unspecified; D47.2 Monoclonal gammopathy; Z77.120 Contact with and (suspected) exposure to mold (toxic); Z88.9 Allergy status to unspecified drugs, medicaments and biological substances
CPT/HCPCS: 36415; 80053; 80061; 82306; 82390; 82523; 82525; 82533; 82627; 82728; 82977; 83036; 83090; 83525; 83540; 83550; 83615; 83625; 84075; 84080; 84305; 84436; 84439; 84443; 84479; 84480; 84481; 84482; 84550; 85025; 85379; 85384; 85652; 86141; 86376; 82626

== ENCOUNTER → 2024-05-16 | Outpatient (CLI) | payer MEDICAID, SELFPAY ==
[2024-05-16 17:41] LABS: Absolute Lymphocyte Count 0.68 X10^3/uL (0.83-4.51); Absolute Neutrophil Count 3.5 X10^3/uL (2.0-7.7); Basophil# 0.02 X10^3/uL; Basophil% 0.4 % (0-1); Eosinophil# 0.06 X10^3/uL; Eosinophils% 1.3 % (0-5); Hematocrit 27.1 % (37-47); Hemoglobin 8.5 g/dL (12.0-15.0); Lymphocyte # 0.68 X10^3/ul (0.83-4.51); Lymphocyte % 14.5 % (19-41); Mean Corp Hgb Conc 31.4 g/dL (32-36); Mean Corpuscular Hgb 24.7 pg (27.0-32.0); Mean Corpuscular Volume 78.8 fL (81-99); Mean Platelet Vol. 11.2 fl (6.2-12.0); Monocyte# 0.38 X10^3/uL; Monocyte% 8.1 % (0-10); NRBC Flagged by Analyzer 0 % (0-5); Neutrophil # 3.53 X10^3/uL (2.7-7.7); Neutrophil % 75.5 % (47-70); Platelet Count 357 K/mm3 (150-450); RBC Distribution Width CV 19.7 % (11.6-14.6); RBC Distribution Width SD 54.5 fl (35.1-43.9); Red Blood Count 3.44 M/mm3 (4.2-5.4); White Blood Count 4.7 K/mm3 (4.4-11.0)
[2024-05-16 18:20] LABS: AST(SGOT) 14 U/L (15-37); Alanine Aminotransfer ALT/SGPT 28 U/L (13-56); Albumin, Serum 3.3 g/dL (3.2-5.0); Alkaline Phosphatase 98 U/L (45-117); Anion Gap 7 (5-15); BUN 35 mg/dL (7-18); BUN/Creat Ratio 53.8 RATIO (10-20); CRP < 2.90 mg/L (0.0-3.0); Calcium,Total 9.7 mg/dL (8.5-10.1); Chloride 101 mmol/L (98-107); Creatinine, Serum 0.65 mg/dL (0.55-1.02); EST Glomerular Filtration Rate 99 mL/min (>60); Est Glom Filt Rate - Afr Amer 120 mL/min (>60); Ferritin 6 ng/mL (8-252); Globulin 3.3 g/dL (2.2-4.2); Glucose 89 mg/dL (74-106); Protein, Total 6.6 g/dL (6.4-8.2); Sodium Level 135 mmol/L (136-145)
== END | disposition home or self-care (01) ==
LOC: MFPLAB 14:13
PROVIDERS: PCP Family Medicine; Referring Provider Family Medicine; Visit Provider Family Medicine
DX: M60.9 Myositis, unspecified (principal); E61.1 Iron deficiency; K58.9 Irritable bowel syndrome, unspecified
CPT/HCPCS: 36415; 80053; 82728; 85025; 86140

== ENCOUNTER → 2024-05-29 | Outpatient (CLI) | payer MEDICAID, SELFPAY ==
[2024-05-29 10:53] LABS: Absolute Lymphocyte Count 0.82 X10^3/uL (0.83-4.51); Absolute Neutrophil Count 1.2 X10^3/uL (2.0-7.7); Basophil# 0.02 X10^3/uL; Basophil% 0.9 % (0-1); Eosinophil# 0.05 X10^3/uL; Eosinophils% 2.2 % (0-5); Hemoglobin 8.5 g/dL (12.0-15.0); Lymphocyte # 0.82 X10^3/ul (0.83-4.51); Mean Corp Hgb Conc 31.5 g/dL (32-36); Mean Corpuscular Hgb 24.3 pg (27.0-32.0); Mean Corpuscular Volume 77.1 fL (81-99); Mean Platelet Vol. 11.4 fl (6.2-12.0); Monocyte# 0.21 X10^3/uL; Monocyte% 9.2 % (0-10); NRBC Flagged by Analyzer 0 % (0-5); Neutrophil # 1.18 X10^3/uL (2.7-7.7); Neutrophil % 51.7 % (47-70); POSITIVE MORPHOLOGY YES; Platelet Count 357 K/mm3 (150-450); RBC Distribution Width CV 20.1 % (11.6-14.6); RBC Distribution Width SD 55.6 fl (35.1-43.9); White Blood Count 2.3 K/mm3 (4.4-11.0)
[2024-05-29 11:05] LABS: Differential Indicated SCAN CRITERIA MET
[2024-05-29 11:20] LABS: Erythrocyte Sedimentation Rate 12 mm/hr (0-30)
[2024-05-29 11:41] LABS: Anisocytosis 1+; D-Dimer Quantitative (DVT/PE) 0.49 FEU/ug/m (0.27-0.49); Ovalocyte 1+; Platelet Estimate A (ADEQ); Tear Drop Cell 1+
[2024-05-29 11:56] LABS: Ferritin 7 ng/mL (22-378); Free T3 1.4 pg/mL (2.18-3.98); T3 Total - Triiodothyronine 0.36 ng/mL (0.80-2.00); T4 Total, Thyroxin 7.1 ug/dL (4.8-13.9)
[2024-05-29 12:31] LABS: ALB/GLOB Ratio 1.8 RATIO (0.9-2.4); Alanine Aminotransfer ALT/SGPT 29 U/L (<=34); Albumin, Serum 4.1 g/dL (3.5-5.0); Alkaline Phosphatase 90 U/L (35-104); Anion Gap 11 (5-15); BUN 26 mg/dL (4-19); BUN/Creat Ratio 50.1 RATIO (10-20); Calcium,Total 9.7 mg/dL (7.6-11.0); Carbon Dioxide 26.8 mmol/L (21.0-32.0); Chloride 102 mmol/L (98-108); Creatinine, Serum 0.53 mg/dL (0.70-1.20); EST Glomerular Filtration Rate 107 (>60); Globulin 2.2 g/dL (2.2-4.2); Glucose 84 mg/dL (70-99); Potassium 3.7 mmol/L (3.3-5.1); Protein, Total 6.3 g/dL (5.9-8.4); Sodium Level 139 mmol/L (133-145); Total Bilirubin < 0.15 mg/dL (0.00-1.30); Uric Acid 4.2 mg/dL (2.6-6.0)
[2024-05-29 13:09] LABS: AST(SGOT) 15 U/L (<=31); Iron 20 ug/dL (50-170); Iron Binding Capacity,Total 440 ug/dL (250-450); Iron Binding Capacity,Unsat 420 ug/dL (228-428); LDH 153 U/L (84-246)
[2024-05-29 13:11] LABS: Hemoglobin A1c 5.5 % (<=5.6)
[2024-05-29 13:31] LABS: Fibrinogen 452 mg/dl (203-444)
[2024-05-30 12:08] LABS: CRP, High Sensitivity 0.48 mg/L (0.00-3.00); HOMOCYSTEINE 9.3 umol/L (0.0-14.5)
[2024-06-02 02:07] LABS: Ceruloplasmin 30.5 mg/dL (19.0-39.0); Copper, Serum or Plasma 116 ug/dL (80-158); GGTP 6 IU/L (0-60); Insulin Like Growth Factor 129 ng/mL (60-207); LDH 137 IU/L (119-226); LDH Fraction 1 31 % (17-32); LDH Fraction 2 37 % (25-40); LDH Fraction 3 22 % (17-27); LDH Fraction 4 6 % (5-13); LDH Fraction 5 4 % (4-20); T3 Reverse 21.6 ng/dL (9.2-24.1); T3UP 29 % (24-39); Thyroid Peroxidase AB 31 IU/mL (0-34)
== END | disposition home or self-care (01) ==
LOC: MTLAB 07:15
PROVIDERS: PCP Family Medicine; Referring Provider Naturopath; Visit Provider Naturopath
DX: C90.00 Multiple myeloma not having achieved remission (principal); E03.9 Hypothyroidism, unspecified; Z77.120 Contact with and (suspected) exposure to mold (toxic); Z88.9 Allergy status to unspecified drugs, medicaments and biological substances; R53.83 Other fatigue; E56.9 Vitamin deficiency, unspecified; D64.9 Anemia, unspecified; F45.9 Somatoform disorder, unspecified; D47.2 Monoclonal gammopathy; E46 Unspecified protein-calorie malnutrition; R77.8 Other specified abnormalities of plasma proteins; G47.9 Sleep disorder, unspecified; R79.0 Abnormal level of blood mineral
CPT/HCPCS: 36415; 80053; 82390; 82525; 82533; 82728; 82977; 83036; 83090; 83540; 83550; 83615; 83625; 84305; 84436; 84439; 84443; 84479; 84480; 84481; 84482; 84550; 85025; 85379; 85384; 85652; 86141; 86376

== ENCOUNTER → 2024-06-13 | Outpatient (CLI) | payer MEDICAID, SELFPAY ==
[2024-06-13 15:11] LABS: Absolute Lymphocyte Count 0.64 X10^3/uL (0.83-4.51); Absolute Neutrophil Count 3.5 X10^3/uL (2.0-7.7); Basophil# 0.03 X10^3/uL; Basophil% 0.7 % (0-1); Eosinophil# 0.05 X10^3/uL; Eosinophils% 1.1 % (0-5); Hemoglobin 8.2 g/dL (12.0-15.0); Lymphocyte # 0.64 X10^3/ul (0.83-4.51); Mean Corp Hgb Conc 31.5 g/dL (32-36); Mean Corpuscular Hgb 24.9 pg (27.0-32.0); Mean Platelet Vol. 10.8 fl (6.2-12.0); Monocyte# 0.37 X10^3/uL; Monocyte% 8.1 % (0-10); NRBC Flagged by Analyzer 0 % (0-5); Neutrophil # 3.45 X10^3/uL (2.7-7.7); Neutrophil % 75.7 % (47-70); POSITIVE MORPHOLOGY YES; Platelet Count 393 K/mm3 (150-450); RBC Distribution Width CV 21.9 % (11.6-14.6); RBC Distribution Width SD 61.7 fl (35.1-43.9); Red Blood Count 3.29 M/mm3 (4.2-5.4); White Blood Count 4.6 K/mm3 (4.4-11.0)
[2024-06-13 15:24] LABS: Differential Indicated SCAN CRITERIA MET
[2024-06-13 15:55] LABS: Anisocytosis 2+; Differential Comment SCANNED
[2024-06-13 15:57] LABS: Crenated RBC 1+; Hypochromasia 3+; Schistocytes RARE; Target Cells 1+
== END | disposition home or self-care (01) ==
LOC: MFPLAB 14:01
PROVIDERS: PCP Family Medicine; Referring Provider Family Medicine; Visit Provider Family Medicine
DX: D64.9 Anemia, unspecified (principal)
CPT/HCPCS: 36415; 85025

== ENCOUNTER → 2024-06-27 | Outpatient (CLI) | payer MEDICAID, SELFPAY ==
[2024-06-27 16:35] LABS: Absolute Lymphocyte Count 0.75 X10^3/uL (0.83-4.51); Absolute Neutrophil Count 3.7 X10^3/uL (2.0-7.7); Basophil# 0.01 X10^3/uL; Basophil% 0.2 % (0-1); Eosinophil# 0.03 X10^3/uL; Eosinophils% 0.6 % (0-5); Hematocrit 25.8 % (37-47); Hemoglobin 8.4 g/dL (12.0-15.0); Lymphocyte # 0.75 X10^3/ul (0.83-4.51); Lymphocyte % 15.2 % (19-41); Mean Corp Hgb Conc 32.6 g/dL (32-36); Mean Corpuscular Hgb 25.2 pg (27.0-32.0); Mean Corpuscular Volume 77.5 fL (81-99); Monocyte# 0.38 X10^3/uL; Monocyte% 7.7 % (0-10); NRBC Flagged by Analyzer 0 % (0-5); Neutrophil # 3.74 X10^3/uL (2.7-7.7); Neutrophil % 76.1 % (47-70); POSITIVE MORPHOLOGY YES; Platelet Count 305 K/mm3 (150-450); RBC Distribution Width SD 60.2 fl (35.1-43.9); Red Blood Count 3.33 M/mm3 (4.2-5.4); White Blood Count 4.9 K/mm3 (4.4-11.0)
[2024-06-27 17:04] LABS: Differential Indicated SCAN CRITERIA MET
[2024-06-27 19:37] LABS: Anisocytosis 1+; Polychromasia 1+; Target Cells 3+
[2024-06-27 19:38] LABS: Burr Cells 1+
== END | disposition home or self-care (01) ==
LOC: LAB 15:32
PROVIDERS: PCP Family Medicine; Referring Provider Nurse Practitioner Acute Care; Visit Provider Nurse Practitioner Acute Care
DX: C90.00 Multiple myeloma not having achieved remission (principal); D50.9 Iron deficiency anemia, unspecified
CPT/HCPCS: 36415; 85025

== ENCOUNTER → 2024-08-21 | Outpatient (CLI) | payer MEDICAID, SELFPAY ==
[2024-08-21 11:10] LABS: Immature Platelet Fraction 8.8 % (1.0-7.9); Platelet Count 307 K/mm3 (150-450); RET-HE 32.7 pg (30-35); Reticulocyte Count 1.57 % (0.5-1.5)
[2024-08-21 11:50] LABS: Ferritin 26 ng/mL (22-378); Iron Binding Capacity,Total 434 ug/dL (250-450)
[2024-08-21 11:53] LABS: Iron 28 ug/dL (50-170); Iron Binding Capacity,Unsat 406 ug/dL (228-428); PERCENT IRON SATURATION 6.5 % (13-59)
== END | disposition home or self-care (01) ==
LOC: LAB 09:10
PROVIDERS: PCP Family Medicine; Referring Provider Family Medicine; Visit Provider Family Medicine
DX: D64.9 Anemia, unspecified (principal)
CPT/HCPCS: 36415; 82728; 83540; 83550; 85045

== ENCOUNTER → 2024-09-18 | Outpatient (CLI) | payer MEDICAID, SELFPAY ==
--- NOTE | 2024-09-18 09:55 | RAD_ITS ---
PROCEDURE: ABDOMEN SINGLE VIEW 09/18/2024 REASON FOR EXAM: VERIFY PASSAGE OF CAPSULE TECHNIQUE: Two-view supine abdomen COMPARISON: Manager Delivery from the CT examination of 03/18/2022. RAD/Abdomen Single View IMPRESSION: A moderate stool burden is noted. No small bowel dilation is evident. No mass or mass effect is seen. No radiopaque foreign body (including capsule shaped) is identified. Haau-bi-gfozkvks degenerative changes of the visualized spine are also noted. Reading Location: [place] [id number]
== END | disposition home or self-care (01) ==
LOC: MTRAD 09:55
PROVIDERS: PCP Family Medicine; Referring Provider Nurse Practitioner Acute Care; Visit Provider Nurse Practitioner Acute Care
DX: D50.9 Iron deficiency anemia, unspecified (principal)
CPT/HCPCS: 74018

== ENCOUNTER → 2024-09-27 | Outpatient (CLI) | payer MEDICAID, SELFPAY ==
[2024-09-27 10:37] LABS: Fibrinogen 359 mg/dl (203-444)
[2024-09-27 10:50] LABS: Hematocrit 27.4 % (37-47); Hemoglobin 9.2 g/dL (12.0-15.0); Immature Granulocytes Count 0.010 X10^3/uL (0.0-0.0); Mean Corp Hgb Conc 33.6 g/dL (32-36); Mean Corpuscular Volume 86.2 fL (81-99); Mean Platelet Vol. 11.1 fl (6.2-12.0); NRBC Flagged by Analyzer 0 % (0-5); POSITIVE MORPHOLOGY YES; Platelet Count 280 K/mm3 (150-450); RBC Distribution Width CV 26.1 % (11.6-14.6); RBC Distribution Width SD 80.5 fl (35.1-43.9); Red Blood Count 3.18 M/mm3 (4.2-5.4); White Blood Count 4.5 K/mm3 (4.4-11.0)
[2024-09-27 10:55] LABS: Differential Indicated SCAN CRITERIA MET
[2024-09-27 11:16] LABS: Cholesterol 215 mg/dL (<=200); Ferritin 10 ng/mL (22-378); Low Density Lipoprotein Calc. 130 mg/dL; Triglycerides 23 mg/dL; Very Low Density Lipoprotein 5 mg/dL (5-40); Vitamin D,25 Hydroxy 53.9 ng/mL (30-100); cholesterol:hdl ratio screen 2.68
[2024-09-27 11:17] LABS: Anisocytosis 2+; Differential Comment SCANNED
[2024-09-27 11:58] LABS: Iron 21 ug/dL (50-170); Iron Binding Capacity,Total 374 ug/dL (250-450); Iron Binding Capacity,Unsat 353 ug/dL (228-428); LDH 166 U/L (84-246); Uric Acid 4.5 mg/dL (2.6-6.0)
[2024-09-27 12:02] LABS: AST(SGOT) 16 U/L (<=31); Alanine Aminotransfer ALT/SGPT 29 U/L (<=34); Albumin, Serum 3.6 g/dL (3.5-5.0); Alkaline Phosphatase 68 U/L (35-104); Anion Gap 9 (5-15); BUN 36 mg/dL (4-19); BUN/Creat Ratio 69.5 RATIO (10-20); Calcium,Total 9.4 mg/dL (7.6-11.0); Carbon Dioxide 27.0 mmol/L (21.0-32.0); Chloride 101 mmol/L (98-108); Globulin 2.0 g/dL (2.2-4.2); Glucose 99 mg/dL (70-99); Potassium 3.9 mmol/L (3.3-5.1)
[2024-09-28 04:07] LABS: CRP, High Sensitivity 0.36 mg/L (0.00-3.00); GGTP 7 IU/L (0-60); HOMOCYSTEINE 10.2 umol/L (0.0-14.5)
== END | disposition home or self-care (01) ==
LOC: MTRAD 07:04
PROVIDERS: PCP Family Medicine; Referring Provider Naturopath; Visit Provider Naturopath
DX: E03.9 Hypothyroidism, unspecified (principal); C90.00 Multiple myeloma not having achieved remission; Z77.120 Contact with and (suspected) exposure to mold (toxic); Z88.9 Allergy status to unspecified drugs, medicaments and biological substances; R53.83 Other fatigue; E56.9 Vitamin deficiency, unspecified; E61.9 Deficiency of nutrient element, unspecified; F45.9 Somatoform disorder, unspecified; D47.2 Monoclonal gammopathy; E46 Unspecified protein-calorie malnutrition; G47.9 Sleep disorder, unspecified; R77.8 Other specified abnormalities of plasma proteins
CPT/HCPCS: 36415; 80053; 80061; 82306; 82728; 82977; 83090; 83540; 83550; 83615; 84550; 85025; 85384; 85652; 86141

== ENCOUNTER → 2024-10-18 | Outpatient (CLI) | payer MEDICAID, SELFPAY ==
[2024-10-18 15:59] LABS: Color, Urine Straw (Yellow); Glucose, Dipstick Normal (Normal); Ketone-Dipstick Negative (Negative); Leukocyte Esterase-Dipstick Negative /ul (Negative); Nitrite-Dipstick Negative (Negative); Occult Blood-Urine Negative /ul (Negative); Protein-Dipstick Negative (Negative); Specific Gravity, Urine 1.015 (1.002-1.030); Urine Bilirubin Dipstick Negative (Negative)
[2024-10-18 16:04] LABS: Free T3 1.8 pg/mL (2.18-3.98); T4 Total, Thyroxin 4.7 ug/dL (4.8-13.9)
[2024-10-24 17:08] LABS: T3UP 23 % (24-39); Thyroglobulin, Serum Qt. 3.0 ng/mL (1.5-38.5); Thyroid Stim Immunoglob <0.10 IU/L (0.00-0.55)
== END | disposition home or self-care (01) ==
LOC: MTLAB 13:12
PROVIDERS: PCP Family Medicine; Referring Provider Naturopath; Visit Provider Naturopath
DX: E03.9 Hypothyroidism, unspecified (principal); C90.00 Multiple myeloma not having achieved remission; Z77.120 Contact with and (suspected) exposure to mold (toxic); Z88.9 Allergy status to unspecified drugs, medicaments and biological substances; R53.83 Other fatigue; F41.9 Anxiety disorder, unspecified; G47.9 Sleep disorder, unspecified; E56.9 Vitamin deficiency, unspecified; E61.9 Deficiency of nutrient element, unspecified; D64.9 Anemia, unspecified; E46 Unspecified protein-calorie malnutrition; I89.0 Lymphedema, not elsewhere classified; R77.8 Other specified abnormalities of plasma proteins; R60.1 Generalized edema; R09.81 Nasal congestion; F45.9 Somatoform disorder, unspecified; D47.2 Monoclonal gammopathy; R52 Pain, unspecified; K59.00 Constipation, unspecified
CPT/HCPCS: 36415; 81002; 84432; 84436; 84439; 84443; 84445; 84479; 84481; 84482; 86376; 86800

== ENCOUNTER → 2024-11-20 | Outpatient (CLI) | payer MEDICAID, SELFPAY ==
[2024-11-20 13:18] LABS: AST(SGOT) 21 U/L (<=31); Alanine Aminotransfer ALT/SGPT 25 U/L (<=34); Albumin, Serum 3.9 g/dL (3.5-5.0); Alkaline Phosphatase 66 U/L (35-104); Anion Gap 8 (5-15); BUN 37 mg/dL (4-19); BUN/Creat Ratio 66.3 RATIO (10-20); Calcium,Total 9.5 mg/dL (7.6-11.0); Carbon Dioxide 26.5 mmol/L (21.0-32.0); Chloride 103 mmol/L (98-108); Globulin 2.0 g/dL (2.2-4.2); Glucose 102 mg/dL (70-99); Potassium 4.3 mmol/L (3.3-5.1)
== END | disposition home or self-care (01) ==
LOC: MFPLAB 11:36
PROVIDERS: PCP Family Medicine
DX: R60.0 Localized edema (principal)
CPT/HCPCS: 36415; 80053

== ENCOUNTER → 2025-02-15 | Outpatient (CLI) | payer MEDICAID, SELFPAY ==
--- OUTSIDE RECORDS SUMMARY | 2025-02-15 07:28 | XMS RPT_ITS | CCD ---
Author Organization [facility] CliniSyhi Care Team Providers Care Music Researcher Name Role Phone Dr. Jossie De La Rosa Primary Care Provider Dr. Robyn Calero Emergency Provider [phone] Dr. Priscilla Ruelas Admit Provider Dr. Priscilla Ruelas Attending Provider Dr. Priscilla Ruelas Other Provider Dr. Jossie Gonzales Attending Provider 1([facility])[phone] Jossie Gonzales Other Provider Dr. Rolando Gacria Attending Provider Unavailable Dr. Rolando Garcia Other Provider Unavailable Suraj, Dr. Wells Referring Provider Dr. Hero Lawrence Attending Provider 1([facility])[phone] Dr. Octavio Cruz Attending Provider 1([facility])[phone] Hero Lawrence Referring Provider 1([facility])[phone] Dr. Bhanu Hernandez Attending Provider Dr. Jossie Sheikh Referring Provider [phone] Jossie De La Rosa Referring Provider [phone] Dr. Melecio Gil Attending Provider [phone] Dr. Jossie De La Rosa Primary Care Provider [phone] Hero Lawrence Attending Provider 1([facility])[phone] Dr. Jossie De La Rosa Primary Care Provider Dr. Jossie De La Rosa Referring Provider Dr. Melecio Gil Attending Provider [phone] Dr. Hero Lawrence Attending Provider 1([facility])[phone] Dr. Jossie De La Rosa Primary Care Provider 1([facility])[phone] Dr. Jossie De La Rosa Referring Provider 1([facility])[phone] Jossie De La Rosa Primary Care Provider Rj, Dr. Monsivais Referring Provider Dr. Hero Lawrence Attending Provider 1([facility])[phone] Dr. Melecio Gil Attending Provider 1([facility])[phone] Jossie De La Rosa Primary Care Provider Rj, Dr. Monsivais Referring Provider 1([facility])[phone]. Hero Lawrence Attending Provider 1([facility])[phone] Dr. Melecio Gil Attending Provider 1([facility])[phone] Robyn Calero Emergency Provider 1([facility])[phone] Dr. Octavio Barahona Attending Provider 1([facility])[phone] Octavio Barahona Admit Provider Dr. Octavio Barahona Other Provider Dr. Caty Fuller Other Provider 1([facility])[phone] Dr. Mumtaz Jimenes Attending Provider 1([facility])[phone] Dr. Mumtaz Jimenes Other Provider 1([facility])[phone]. Octavio Cruz Attending Provider 1([facility])[phone] Dr. Rolando Melton Other Provider 1([facility])[phone] Dr. Armando Kolb Other Provider Dr. Fritz Velasquez Other Provider 1([facility])[phone] Dr. Yfn Chowdhury Other Provider Dr. Anil Olivares Other Provider Unavailable Dr. Sanju Dick Other Provider 1([facility])[phone] Adria Mena Other Provider 1([facility])[phone] Annette GLASS INSERTER, GLASS INSERTER-C Tori Other Provider 1([facility])[phone] Dr. Armando Kolb Attending Provider 1([facility])[phone] Angela Shah Attending Provider 1([facility])[phone] Angela Shah Other Provider Dr. Jossie De La Rosa Primary Care Provider [phone] Dr. Jossie De La Rosa Referring Provider [phone] Dr. Hero Lawrence Attending Provider [phone] Dr. Jossie De La Rosa Primary Care Provider [phone] Jossie De La Rosa Referring Provider Rj WEBB, Jossie Calles Primary Care Provider [phone] Eleanor RN, Elisa Unavailable Rj WEBB, Jossie Lee Primary Care Provider [phone] JOHANNA MANDEL Referring Unavailab le JOSSIE DE LA ROSA Primary Care Unavailable Kai RD, Bev Unavailable Eleanor RN, Elisa Unavailable Kai PETER, Bev Unavailable [phone] Dr. Jossie De La Rosa Primary Care Provider [phone] Jossie De La Rosa Referring Provider [phone] Dr. Melecio Gil Attending Provider [phone] Dr. Jossie De La Rosa Primary Care Provider [phone] Dr. Jossie De La Rosa Referring Provider [phone] Dr. Melecio Gil Attending Provider Rj WEBB, Jossie Lee Primary Care Provider Dr. Jossie De La Rosa MD Primary Care Provider Dr. Jossie De La Rosa MD Attending Provider Dr. Jossie De La Rosa MD Referring Provider Dr. Jc Torres Attending Provider Dr. Jc Torres Referring Provider [phone] Cory WASHINGTONCRobyn Attending Provider Cory DAVEY-CRobyn Referring Provider Dr. Jossie De La Rosa MD Primary Care Provider Dr. Jossie DeL a Rosa MD Attending Provider [phone] Dr. Jossie De La Rosa MD Referring Provider Dr. Lissy Torresrick Attending Provider Melissa, Dr. Martin Referring Provider Melinda FROST, Dr. Monahan Attending Provider Rj WEBB, Dr. Monsivais Primary Care Provider Rj WEBB, Dr. Monsivais Attending Provider [phone] Rj WEBB, Dr. Monsivais Referring Provider Rj WEBB, Dr. Monsivais Primary Care Provider Melissa, Dr. Martin Attending Provider Melissa, Dr. Martin Referring Provider Rj WEBB, Dr. Monsivais Primary Care Provider Rj WEBB, Dr. Monsivais Referring Provider [phone] Rj WEBB, Dr. Monsivais Attending Provider [phone] Rj WEBB, Dr. Monsivais Primary Care Provider Rj WEBB, Dr. Monsivais Referring Provider Cory GLASS INSERTER-C, Robyn Attending Provider Cory GLASS INSERTER-C, Robyn [facility], Jorden Attending Provider [phone] De La Rosa, Jossie Primary Care Unavailable Melissa, Jc Referring Unavailable Melissa, Jc Attending Unavailable De La Rosa, Jossie Attending Unavailable De La Rosa, Jossie Primary Care Unavailable De La Rosa, Jossie Referring Unavailable De La Rosa, Jossie Primary Care Unavailable Melissa, Jc Referring Unavailable Melissa, Jc Attending Unavailable De La Rosa, Jossie Primary Care Unavailable Melissa, Jc Referring Unavailable Melsisa, Jc Attending Unavailable De La Rosa, Jossie Primary Care Unavailable McMorrow GLASS INSERTERJorden Attending Unavailable De La Rosa, Jossie Attending Unavailable De La Rosa, Jossie Primary Care Unavailable De La Rosa, Jossie Referring Unavailable De La Rosa, Jossie Primary Care Unavailable Melissa, Jc Referring Unavailable Melissa, Jc Attending Unavailable De La Rosa, Jossie Primary Care Unavailable Melissa, Jc Referring Unavailable Melissa, Jc Attending Unavailable De La Rosa, Jossie Attending Unavailable De La Rosa, Jossie Primary Care Unavailable De La Rosa, Jossie Referring Unavailable De La Rosa, Jossie Primary Care Unavailable Hero Lawrence Attending Unavailable De La Rosa, Jossie Referring Unavailable De La Rosa, Jossie Primary Care Unavailable Melinda, Hero Attending Unavailable De La Rosa, Jossie Attending Unavailable De La Rosa, Jossie Primary Care Unavailable De La Rosa, Jossie Referring Unavailable De La Rosa, Jossie Primary Care Unavailable Melissa, Jc Attending Unavailable Melissa, Jc Referring Unavailable De La Rosa, Jossie Attending Unavailable De La Rosa, Jossie Primary Care Unavailable De La Rosa, Jossie Referring Unavailable De La Rosa, Jossie Primary Care Unavailable De La Rosa, Jossie Referring Unavailable Melecio Gil Attending Unavailable De La Rosa, Jossie Referring Unavailable CoryRobyn Attending Unavailable De La Rosa, Jossie Primary Care Unavailable Cory, Robyn Referring Unavailable Cory, Robyn Attending Unavailable De La Rosa, Jossie Primary Care Unavailable De La Rosa, Jossie Primary Care Unavailable De La Rosa, Jossie Referring Unavailable De La Rosa, Jossie Attending Unavailable De La Rosa, Jossie Primary Care Unavailable Cory, Robyn Referring Unavailable Cory, Robyn Attending Unavailable BROOKE, HILARIA Referring Unavailable DE LA ROSA, JOSSIE A Primary Care Unavailable DE LA ROSA, JOSSIE A Primary Care Unavailable BROOKE, HILARIA Referring Unavailable DE LA ROSA, JOSSIE A Primary Care Unavailable JOHANNA MANDEL Attending Unavailab JOHANNA Ayers Referring Unavailab le DE LA ROSA, JOSSIE A Primary Care Unavailable DE LA ROSA, JOSSIE A Primary Care Unavailable JOHANNA MANDEL Attending Unavailab JOHNANA Ayers Referring Unavailab le DE LA ROSA, JOSSIE A Primary Care Unavailable DE LA ROSA, JOSSIE A Primary Care Unavailable JOHANNA MANDEL Attending Unavailab le DE LA ROSA, JOSSIE A Primary Care Unavailable PIPPA ROJAS Attending Unavailable DE LA ROSA, JOSSIE A Primary Care Unavailable JOHANNA MANDEL Referring Unavailab JENNA Bridges Attending Unavailable DE LA ROSA, JOSSIE A Primary Care Unavailable JOHANNA MANDEL Referring Unavailab JOHANNA Ayers Attending Unavailab le DE LA ROSA, JOSSIE A Primary Care Unavailable JOHANNA MANDEL Referring Unavailab le DE LA ROSA, JOSSIE A Primary Care Unavailable WILD COXOTA Attending Unavailable DE LA ROSA, JOSSIE A Primary Care Unavailable JOHANNA MANDEL Attending Unavailab le DE LA ROSA, JOSSIE A Primary Care Unavailable JOHANNA MANDEL Referring Unavailab le DE LA ROSA, JOSSIE A Primary Care Unavailable BROOKE, HILARIA Attending Unavailable Allergies Allergy Classification Reported Allergen(s) Allergy Type Date of Onset Reaction(s) Facility (20 sources) Codeine; Translations: [CODEINE] Drug Allergy 2 Other: See Comments [facility] (20 sources) Lactose; Translations: [LACTOSE] Drug Allergy 2 Other: See Comments [facility] (20 sources) Amoxicillin; Translations: [AMOXICILLIN] Drug Allergy 2 Other: See Comments [facility] (20 sources) Flavoring Agent (Bulk); Translations: [FLAVORING AGENT (BULK)] Drug Allergy 3 Other: See Comments [facility] (20 sources) Peppermint Flavor; Translations: [PEPPERMINT FLAVOR] Drug Allergy 3 Other: See Comments [facility] (1 source) Amoxicillin Drug Allergy 5 [facility] Repository (1 source) Codeine Drug Allergy 5 [facility] Repository (1 source) Lactose Drug Allergy 5 [facility] Repository Medications Current Medications Medication Drug Class(es) Dates Sig (Normalized) Sig (Original) acetaminophen 325 mg / oxyCODONE hydrochloride 5 mg oral tablet (2 sources) Opioid Agonist Start: 08-27-2022 End: 08-27-2022 oxyCODONE-acetamin ophen 5-325 mg 1 tablet (PERCOCET) Start: 07-08-2022 End: 07-08-2022 oxyCODONE-acetaminophen 5-32 5 mg 1 tablet (PERCOCET) Acetylcysteine (20 sources) Antidote, Mucolytic, Antidote for Acetaminophen Overdose Start: 05-20-2022 Acetylcysteine (B ulk) powder Active NMA May 20, 2022 1:00am Start: 05-20-2022 Acetylcysteine (Bulk) Active EACH May 20, 2022 1:00am Start: 05-20-2022 Acetylcysteine (Bulk) Active EACH May 20, 2022 12:00am take 1000 mg by mout h once daily acetylcysteine (ACET-CYS) Take 1,000 mg by mouth once daily. Active take 1000 mg by mout h once daily acetylcysteine (ACET-CYS) Take 1,000 mg by mouth once daily. 0 Active Comment on above: Take 1,000 mg by ramon th once daily. bumetanide 0.5 mg oral tablet (2 sources) Loop Diuretic Start: 03-20-20 take 1 mg by mouth twice daily Bumetanide Active 1 MG PO TWICE DAILY 120 30 March 20, 2022 12:00am cholecalciferol 0.025 mg oral tablet (20 sources) Vitamin D Start: 03-20-20 take 1 tablet by mouth once daily Cholecalciferol (Vitamin D3) 25 mcg (1,000 unit) Tablet Active 50 ug PO DAILY 60 30 0 March 20, 2022 1:00am Start: 12-17-2021 take 50 ug by mouth once daily Cholecalciferol (Vitamin D3) Active 50 MCG PO DAILY December 16, 2021 11:00pm cholecalciferol, vitamin D3, (D3-2000 ORAL) (20 sources) take 2000 mg by mouth once daily cholecalciferol, vitamin D3, (D3-2000 ORAL) Take 2,000 mg by mouth once daily. Active take 2000 mg by mouth once daily cholecalciferol, vitamin D3, (D3-2000 ORAL) Take 2,000 mg by mouth once daily. 0 Active Comment on above: Take 2,000 mg by ramon th once daily. Digestive Enzymes (12 sources) Start: 03-15-2022 take 1 tablet by mouth three times daily at mealtime Digestive Enzymes Active 1 TABLET PO 3 TIMES DAILY WITH MEALS March 15, 2022 1:00am Start: 03-15-2022 take 1 tablet by ramon th three times daily at mealtime Digestive Enzymes Active 1 TABLET PO 3 TIMES DAILY WITH MEALS March 15, 2022 12:00am Digestive Enzymes Tablet (9 sources) Start: 03-15-2022 take 1 tablet by mouth three times daily at mealtime Digestive Enzymes Tablet Active 1 {tbl} PO 3 TIMES DAILY WITH MEALS March 15, 2022 1:00am Diluent,Naltrexone Microsphere solution (9 sources) Start: 01-12-2024 Diluent,Naltre xone Microsphere solution Active 0.6 mL IM January 12, 2024 12:00am lactobacillus acidophilus [id number] unt oral capsule (20 sources) Lactobacillus acidophilus (PROBIOTIC) 10 billion cell cap Take 133 capsules by mouth daily at bedtime. Active Comment on above: Take 133 capsules by mouth daily at bedtime. Lactobacillus Rhamnosus Gg (20 sources) Start: 07-16-2021 Lactobacillus Rhamnosus Gg ([facility] 5 billion cell powder in packet Active PO July 16, 2021 10:22am Start: 07-16-2021 End: 01-12-2024 Lactobacillus Rhamnosus Gg ( [employer] Pro[employer]) 5 billion cell powder in packet Discontinued 1 NMA PO DAILY July 16, 2021 12:00am January 12, 2024 1:55pm PROBIOTIC Start: 07-16-2021 End: 01-12-2024 Lactobacillus Rhamnosus Gg ( [employer] Probi[employer]) 5 billion cell powder in packet Discontinued 1 NMA PO DAILY July 16, 2021 12:00am January 12, 2024 1:55pm Start: 07-16-2021 Lactobacillus Rhamnosus Gg ([employer] Probiotics) 5 billion cell powder in packet Active 1 CELL PO DAILY July 16, 2021 12:00am Start: 07-16-2021 Lactobacillus Rhamnosus Gg ([employer] Probiotics) 5 billion cell powder in packet Active 1 CELL PO DAILY July 15, 2021 11:00pm Start: 07-16-2021 Lactobacillus Rhamnosus Gg ([employer] Probiotics) 5 billion cell powder in packet Active PO July 15, 2021 11:00pm Start: 07-16-2021 Lactobacillus Rhamnosus Gg ([employer]) 5 billion cell powder in packet Active PO July 16, 2021 12:00am LORazepam 1 mg oral tablet (5 sources) Benzodiazepine Start: 08-27-2022 End: 08-27-2022 LORazepam 1 mg tab(s) (ATIVAN) Start: 07-08-2022 End: 07-09-2022 LORazepam 1 mg tab(s) (ATIVA N) Magnesium Chelate, Malate 12 5 mg magnesium capsule (9 sources) Start: 01-11-2023 Magnesium Mayelin ate, Malate 125 mg magnesium capsule Active 360 mg PO January 11, 2023 12:00am Magnesium Malate, Chelate (5 sources) Start: 01-11-2023 Magnesium Janice te, Chelate Active 360 MG PO January 10, 2023 11:00pm Start: 01-11-2023 Magnesium Janice te, Chelate Active 360 MG PO January 11, 2023 12:00am ondansetron 4 mg oral tablet (7 sources) Serotonin-3 Receptor Antagonist Start: 06-27-2024 take 2 tablets by mouth every two hours as needed, then take 1 tablet by mouth every four hours as needed Ondansetron Hcl 4 mg tablet Active 4 mg PO .COMPLEX 8 0 June 27, 2024 12:00am 4 mg orally; take two tablets PO two hours prior to start of bowel prep and one every 4 hours as needed for N/V Peg 3350-Sod Sulf,Nbin-Dqg-Frb (Suflave) 178.7-7.3-0.5 gram recon soln (7 sources) Start: 06-27-2024 Peg 3350-Sod Sulf,Dwnk-Kfh-Clp (Suflave) 178.7-7.3-0.5 gram recon soln Active 0 PO .COMPLEX 2 0 June 27, 2024 12:00am take as directed for split dose bowel prep Start: 06-27-2024 Peg 3350-Sod S ulf,Yywi-Xwj-Ovx (Suflave) 178.7-7.3-0.5 gram recon soln Active 0 PO .COMPLEX 2 June 27, 2024 12:00am take as directed for split dose bowel prep polyethylene glycol 3350 [id number] mg / potassium chloride 2970 mg / sodium bicarbonate 6740 mg / sodium chloride 5860 mg / sodium sulfate 94085 mg powder for oral solution (8 sources) Osmotic Laxative Start: 07-13-2024 End: 07-13-2024 peg 3350-Electrolytes (GOLYTELY) 236-22.74-6.74 -5.86 gram suspension Indications: Blood in stool Take 4,000 mL by mouth one time only for 1 dose. Refer to printed prep instructions from your provider. 4000 mL 07/13/2024 07/13/2024 Active Start: 06-27-2024 Peg 3350-Elect rolytes (Golytely) 236-22.74-6.74 -5.86 gram recon soln Active 240 mL PO Q10M 4000 0 June 27, 2024 12:00am take as directed for split dose bowel prep microencapsulated potassium chloride 20 meq extended release oral tablet (20 sources) Start: 03-20-2022 Potassium Chlo ride (Klor-Con M20) 20 mEq Tablet,Er Particles/Crystals Active 40 MEQ PO DAILY WITH MEALS 60 March 20, 2022 12:00am Start: 05-20-2021 End: 09-07-2021 take 1 tablet by mouth twice daily Potassium Chloride 20 mEq tablet extended release Discontinued 20 meq PO TWICE A DAY 60 0 May 20, 2021 1:00am September 07, 2021 2:11pm progestrone compound (20 sources) Start: 07-16-2021 progestrone co mpound Active TOPICAL July 16, 2021 10:24am Start: 07-16-2021 End: 01-11-2023 progestrone compound Discont inued 1 NMA TOPICAL DAILY 0 July 16, 2021 12:00am January 11, 2023 1:35pm HORMONE Start: 07-16-2021 End: 01-11-2023 progestrone compound Discont inued 1 NMA TOPICAL DAILY July 16, 2021 12:00am January 11, 2023 1:35pm Start: 07-16-2021 End: 01-11-2023 progestrone compound Discont inued 1 APPLIC TOPICAL DAILY July 15, 2021 11:00pm January 11, 2023 12:35pm Start: 07-16-2021 End: 01-11-2023 progestrone compound Discont inued 1 APPLIC TOPICAL DAILY July 16, 2021 12:00am January 11, 2023 1:35pm Start: 07-16-2021 progestrone co mpound Active 1 APPLIC TOPICAL DAILY July 15, 2021 11:00pm Start: 07-16-2021 progestrone co mpound Active TOPICAL July 15, 2021 11:00pm Start: 07-16-2021 progestrone co mpound Active TOPICAL July 16, 2021 12:00am sodium chloride 1000 mg oral tablet (13 sources) Start: 05-20-2021 take 1 g by mouth twice daily Sodium Chloride Active 1 GM PO TWICE A DAY 60 May 20, 2021 12:00am thyroid (skilled nursing) 30 mg oral tablet (20 sources) Start: 07-04-2024 End: 08-21-2024 ARMOUR THYROID 30 mg tablet Indications: Acquired hypothyroidism Take 1 tablet 5 days a week. Take 2 tablets 2 days a week. 108 tablet 3 08/21/2024 Active Start: 02-10-2012 End: 06-03-2022 take 1 tablet by mouth once Thyroid (Pork) ([place] Thy roid) 15 mg tablet Discontinued 15 mg PO every Tuesday, , , Sat May 16, 2021 1:00am May 20, 2021 12:12pm Comment on above: Take 1 tablet by ramon once daily. as directed 15mg one then 30mg the next Vitamin B Complex (B Complex-Vitamin B12) tablet (2 sources) Start: 05-20-2022 take 1 tablet by mouth once daily Vitamin B Complex (B Complex-Vitamin B12) tablet Active 1 TABLET PO DAILY May 20, 2022 12:00am vitamin K2 (5 sources) Start: 01-11-2023 take 180 ug by mouth once daily Vitamin K2 Active 180 MCG PO DAILY January 10, 2023 11:00pm Start: 01-11-2023 take 180 ug by mouth once quirino y Vitamin K2 Active 180 MCG PO DAILY January 11, 2023 12:00am Vitamin K2 180 mcg capsule (9 sources) Start: 01-11-2023 Vitamin K2 180 mcg capsule Active 180 ug PO DAILY January 11, 2023 12:00am Completed/Discontinued Medications Medication Drug Class(es) Dates Sig (Normalized) Sig (Original) benzonatate 100 mg oral capsule (5 sources) Non-narcotic Antitussive Start: 08-19-2022 End: 10-26-2022 take 1 capsule by mouth every eight hours as needed benzonatate (TESSALON PERLE) 100 mg capsule Take 1 capsule by mouth three times daily as needed. 21 capsule 08/19/2022 10/26/2022 Discontinued (Course of therapy completed) Comment on above: Take 1 capsule by mo [facility] three times daily as needed. betaine 300 mg oral tablet (14 sources) Methylating Agent Start: 01-11-2023 End: 01-12-2024 Betaine Hcl 300 mg tablet Discontinued 300 mg PO January 11, 2023 12:00am January 12, 2024 1:52pm calcium chloride 0.0014 meq/ml / potassium chloride 0.004 meq/ml / sodium chloride 0.103 meq/ml / sodium lactate 0.028 meq/ml injectable solution (1 source) Start: 07-24-2024 End: 07-24-2024 take 30 mL intravenously every hour 30 mL/hr, INTRAVENOUS, CONTINUOUS, Starting on Tue07/24/24 at 0900, Until Tue07/24/24 at 1002, Preprocedure Calcium-Magnesium 300-300 mg tab (20 sources) End: 10-26-2022 Calcium-Magnesium 300-300 mg tab Take by mouth. Pt unsure of mg. 10/26/2022 Discontinued (Other) End: 10-26-2022 Calcium-Magnesium 300-300 mg tab Take by mouth. Pt unsure of mg. 0 10/26/2022 Discontinued (Other) Calcium-Magnesiu m 300-300 mg tab Take by mouth. Pt unsure of mg. 0 Active Comment on above: Take by mouth. Pt un sure of mg. diphenhydrAMINE (1 source) Histamine-1 Receptor Antagonist Start: 07-25-19 End: 07-25-19 12.5-50 mg, INTRAVENOUS, DIRECTED, Starting on Tue07/24/24 at 0930, Until Tue07/24/24 at 1329, DOSING DIRECTED BY PHYSICIAN FOR PROCEDURAL SEDATION ONLY, Intraprocedure 1 ml fentaNYL 0.05 mg/ml injection (1 source) Opioid Agonist Start: 07-25-19 End: 07-25-19 25-100 mcg, INTRAVENOUS, DIRECTED, Starting on Tue07/24/24 at 0930, Until Tue07/24/24 at 1329, DOSING DIRECTED BY PHYSICIAN FOR PROCEDURAL SEDATION ONLY, Intraprocedure furosemide 20 mg oral tablet (20 sources) Loop Diuretic Start: 05-10-19 End: 01-12-20 take 1 tablet by mouth once daily Furosemide (Lasix) 20 mg Tablet Discontinued 20 mg PO DAILY May 10, 2022 1:00am January 11, 2023 1:35pm Start: 05-20-2021 End: 09-07-2021 take 1 tablet by mouth once daily Furosemide (Lasix) 20 mg tablet Discontinued 20 mg PO DAILY 30 0 May 20, 2021 1:00am September 07, 2021 2:12pm Comment on above: Take 20 mg by mouth once daily. Take 20 mg by mouth once daily. TAKING 10MG DAILY. indapamide 2.5 mg oral tablet (5 sources) Thiazide-like Diuretic Start: 3 End: 3 take 1 tablet by mouth once daily indapamide (LOZOL) 2.5 mg tablet Take 2.5 mg by mouth once daily. 0 06/01/2022 06/21/2022 Discontinued (Course of therapy completed) Comment on above: Take 2.5 mg by mouth once daily. levothyroxine sodium 0.05 mg oral tablet (20 sources) l-Thyroxine Start: End: take 2 tablets by mouth every week Levothyroxine 50 mcg tablet Discontinued 50 ug PO DAILY 60 6 January 11, 2023 2:02pm January 13, 2023 9:29am take 2 tablets 3 days per week Start: 05-21-2022 End: 07-04-2024 take 1 tablet by mouth once daily, then take 2 tablets by mouth once daily Levothyroxine 50 mcg tablet Discontinued 0 PO DAILY 38 6 September 20, 2023 8:29am January 12, 2024 2:15pm One daily except two daily and Tuesday Start: 03-22-2022 End: 05-21-2022 Levothyroxine 50 mcg tablet Discontinued 50 ug PO .daily, 2 on Sundays 34 March 22, 2022 1:00am May 21, 2022 1:16pm and tuesday takes 100mg Start: 03-22-2022 Levothyroxine Active 50 MCG PO .daily, 2 on SundaysMarch 22, 2022 12:00am Start: 03-20-2022 End: 03-22-2022 Levothyroxine 100 mcg Tablet Discontinued 100 ug PO Salvador@0600 0 0 March 20, 2022 1:00am March 22, 2022 12:54pm Start: 03-20-2022 End: 03-22-2022 Levothyroxine 25 mcg Tablet Discontinued 25 ug PO MoTuWeThFrSa@0600 0 0 March 20, 2022 1:00am March 22, 2022 12:54pm Start: 03-15-2022 End: 03-22-2022 Levothyroxine 50 mcg tablet Discontinued 25 ug PO DIRECTED March 15, 2022 8:53pm March 22, 2022 12:54pm TAKE 1/2 TAB DAILY AND TAKE 2 TABS ON SUNDAYS Start: 03-15-2022 End: 03-22-2022 Levothyroxine Discontinued 2 5 MCG PO DIRECTED March 15, 2022 8:53pm March 22, 2022 12:54pm TAKE 1/2 TAB DAILY AND TAKE 2 TABS ON SUNDAYS Start: 01-13-2022 End: 03-15-2022 take 2 tablets by mouth once daily Levothyroxine 50 mcg tablet Discontinued 25 ug PO .qd, 2 on SundaysJanuary 15, 2022 5:25pm March 15, 2022 8:53pm Start: 01-13-2022 End: 03-15-2022 Levothyroxine Discontinued 2 5 MCG PO .qd, 2 on SundaysJanuary 15, 2022 5:25pm March 15, 2022 8:53pm Start: 12-17-2021 End: 01-13-2022 Levothyroxine 50 mcg tablet Discontinued 25 ug PO .6 days December 17, 2021 2:18pm January 13, 2022 6:45pm Start: 12-17-2021 End: 01-13-2022 Levothyroxine Discontinued 2 5 MCG PO .6 days December 17, 2021 2:18pm January 13, 2022 6:45pm Start: 08-19-2021 End: 12-17-2021 Levothyroxine 50 mcg tablet Discontinued 50 ug PO .6 days September 18, 2021 7:34am December 17, 2021 2:20pm Start: 07-16-2021 End: 07-19-2021 Levothyroxine 50 mcg tablet Discontinued 50 ug PO July 16, 2021 12:00am July 19, 2021 5:12pm Start: 05-20-2021 End: 08-19-2021 take 1 tablet by mouth once daily Levothyroxine 75 mcg Tablet Discontinued 75 ug PO DAILY@0600 30 0 May 20, 2021 1:00am August 19, 2021 3:14pm Comment on above: Take 50 mcg by mouth once daily. 100 mcg 5 days a week. Other two days 50mcg. lidocaine 0.05 mg/mg medicated patch (5 sources) Antiarrhythmic, Amide Local Anesthetic Start: End: apply 1 dose transdermal route every twenty-four hours lidocaine (LIDODERM) 5 % Apply 1 Patch as directed every 24 hours. 7 Patch 08/19/2022 10/26/2022 Discontinued (Course of therapy completed) Comment on above: Apply 1 Patch as dir ected every 24 hours. melatonin 5 mg oral tablet (20 sources) Start: 2 End: take 4 mg by mouth once daily at bedtime melatonin 5 mg tablet Take 4 mg by mouth daily at bedtime. 07/16/2021 10/26/2022 Discontinued (Course of therapy completed) Start: 07-16-2021 End: 01-11-2023 take 1 tablet by mouth at bedtime as needed Melatonin 5 mg tablet Discontinued 5 mg PO BEDTIME as needed for Insomnia July 16, 2021 12:00am January 11, 2023 1:36pm Comment on above: Take 4 mg by mouth d aily at bedtime. 5 ml midazolam 1 mg/ml injection (1 source) Benzodiazepine Start: 07-24-2024 End: 07-24-2024 1-5 mg, INTRAVENOUS, DIRECTED, Starting on Tue07/24/24 at 0930, Until Tue07/24/24 at 1329, DOSING DIRECTED BY PHYSICIAN FOR PROCEDURAL SEDATION ONLY, Intraprocedure OTC PRODUCT (20 sources) Start: 02-10-2012 End: 07-04-2024 OTC PRODUCT Progesterone Cream 20ml 0.3ml once a day, Bi-estrogen (80/20) .625mg 0/2 ml twice a day 0 02/10/2012 07/04/2024 Discontinued Start: 02-10-2012 OTC PRODUCT Pr ogesterone Cream 20ml 0.3ml once a day, Bi- estrogen (80/20) .625mg 0/2 ml twice a day 0 02/10/2012 Active Start: 02-10-2012 End: 06-03-2022 OTC PRODUCT Wilber Luciana, Sacc haromyces Probiotic,B12 liquid, Vitamin D3 2,500units, Glucosamine, Calcium Night, MultiThiamine, DHEA, Digestzyme, 5-Hydroxy Trypotophan, Krill Oil, Phosphetidyl Serine , Free Form Amino Caps, Lentra for adrenals , Sonmitr for sleep, Acetyl L Carnitine, Transfer Factor for immune system, Zinc, Liquid Trace Minerals 0 02/10/2012 06/03/2022 Discontinued OTC PRODUCT Food enzymes 3x daily Active OTC PRODUCT Food enzymes 3x daily 0 Active Comment on above: Progesterone Cream 2 0ml 0.3ml once a day, Bi-estrogen (80/20) .625mg 0/2 ml twice a day Food enzymes 3x qiurino y Wilber Luciana, Saccharo myces Probiotic,B12 liquid, Vitamin D3 2,500units, Glucosamine, Calcium Night, MultiThiamine, DHEA, Digestzyme, 5-Hydroxy Trypotophan, Krill Oil, Phosphetidyl Serine , Free Form Amino Caps, Lentra for adrenals , Sonmitr for sleep, Acetyl L Carnitine, Transfer Factor for immune system, Zinc, Liquid Trace Minerals progesterone 50 mg/ml injectable solution (5 sources) Progesterone End: 06-21-2022 progesterone 50 mg/mL injection 20 mg daily at bedtime. 20mg/0.1ml cream 0 06/21/2022 Discontinued (Course of therapy completed) Comment on above: 20 mg daily at bedti me. 20mg/0.1ml cream resveratrol 100 mg oral capsule (14 sources) Start: 01-11-2023 End: 01-12-2024 Resveratrol 100 mg capsule Discontinued 150 mg PO January 11, 2023 12:00am January 12, 2024 1:55pm Start: 01-11-2023 Resveratrol Ac tive 150 MG PO January 11, 2023 12:00am sod sulf-pot chloride-mag sulf (SUTAB) 1.479-0.188- 0.225 gram tab (1 source) Start: 06-11-2022 End: 06-13-2022 sod sulf-pot chloride-mag sulf (SUTAB) 1.479-0.188- 0.225 gram tab Indications: Blood in stool , Elevated fecal calprotectin Take 12 tablets by mouth as directed for 2 days. Follow instructions that have been given to you by your provider's office. (Part 1, take 12 tablets. Part 2, take 12 tablets). 24 tablet 0 06/11/2022 06/13/2022 Comment on above: Take 12 tablets by m outh as directed for 2 days. Follow instructions that have been given to you by your provider's office. (Part 1, take 12 tablets. Part 2, take 12 tablets). Vitamin B Complex (5 sources) End: 06-21-2022 take 50 mg by mouth once daily vitamin B complex (B COMPLEX 50 ORAL) Take 50 mg by mouth once daily. 0 06/21/2022 Discontinued (Course of therapy completed) take 50 mg by mouth once daily v itamin B complex (B COMPLEX 50 ORAL) Take 50 mg by mouth once daily. 0 Active Comment on above: Take 50 mg by mouth once daily. Problems Active Problems Problem Classification Problem Date Documented Da te Episodic/Chronic Administrative/social admission (1 source) Patient encounter status; Translations: [Counseling, unspecified] Episodic Allergic reactions (20 sources) Contact dermatitis; Translations: [Unspecified contact dermatitis, unspecified cause] Onset: 02-10-2012 Episodic Anxiety disorders (20 sources) Mixed anxiety and depressive disorder; Translations: [Anxiety disorder, unspecified] Onset: 06-22-2012 Resolved: 06-03-2022 06-22-2012 Chronic Chronic kidney disease (20 sources) Chronic kidney disease stage 2; Translations: [Chronic kidney disease, stage 2 (mild)] Onset: 05-21-2022 06-03-2022 Chronic Coagulation and hemorrhagic disorders (20 sources) Platelet count below reference range; Translations: [Thrombocytopenia, unspecified] Chronic Deficiency and other anemia (1 source) Iron deficiency anemia due to blood loss; Translations: [Iron deficiency anemia secondary to blood loss (chronic)] 07-13-2024 Chronic Deficiency and other anemia (20 sources) Anemia; Translations: [Anemia, unspecified] 03-18-2022 Episodic Comment on above: Discussed causes of anemia, evaluation including bone marrow aspiration and biopsy. Has iron deficiency so will replace Iron with IV iron first then see if she needs the bone marrow biopsy. Deficiency and other anemia (20 sources) Iron deficiency anemia; Translations: [Iron deficiency anemia, unspecified] Onset: 05-25-2022 05-25-2022 Episodic Comment on above: She is not toleratin g oral Iron. Diseases of white blood cells (1 source) Leukopenia; Translations: [Decreased white blood cell count, unspecified] Chronic Fluid and electrolyte disorders (20 sources) Hyponatremia; Translations: [Hypo-osmolality and hyponatremia] Episodic Gastritis and duodenitis (1 source) Unspecified chronic gastritis without bleeding; Translations: [Chronic antral gastritis] Onset: 08-01-2024 Chronic Genitourinary symptoms and ill-defined conditions (2 sources) Proteinuria; Translations: [Proteinuria, unspecified] Episodic Immunity disorders (2 sources) Hypogammaglobulinemi a; Translations: [Nonfamilial hypogammaglobulinemi a] 10-13-2023 Chronic Immunizations and screening for infectious disease (19 sources) Other specified abnormal immunological findings in serum; Translations: [Elevated serum immunoglobulin free light chains] 05-25-2022 Episodic Comment on above: Etiology is unclear at this time. Malaise and fatigue (20 sources) Asthenia; Translations: [Other malaise] Episodic Multiple myeloma (19 sources) Multiple myeloma; Translations: [Multiple myeloma not having achieved remission] Onset: 07-02-2024 Chronic Nausea and vomiting (1 source) Nausea; Translations: [Nausea] Episodic Neoplasms of unspecified nature or uncertain behavior (16 sources) Monoclonal gammopathy of uncertain significance; Translations: [Monoclonal gammopathy] Onset: 09-02-2022 Chronic Neoplasms of unspecified nature or uncertain behavior (3 sources) Neoplastic disease; Translations: [Neoplasm of unspecified behavior of bone, soft tissue, and skin] Onset: 09-02-2022 Episodic Nutritional deficiencies (20 sources) Deficiency of macronutrients; Translations: [Unspecified severe protein-calorie malnutrition] Chronic Osteoporosis (20 sources) Osteoporosis; Translations: [Age-related osteoporosis without current pathological fracture] Onset: 01-13-2022 Chronic Other aftercare (20 sources) Polypharmacy ; Translations: [Other long term care phlebotomist (current) drug therapy] 05-28-2021 Episodic Other aftercare (4 sources) Other long term care phlebotomist (current) drug therapy; Translations: [Long-term (current) use of other medications] Episodic Other connective tissue disease (20 sources) Myositis; Translations: [Myositis, unspecified] 03-11-2022 Episodic Other connective tissue disease (1 source) Muscle weakness; Translations: [Muscle weakness (generalized)] Episodic Other connective tissue disease (3 sources) Muscle weakness of limb; Translations: [Muscle weakness (generalized)] Episodic Other diseases of veins and lymphatics (20 sources) Lymphedema; Translations: [Lymphedema, not elsewhere classified] Onset: 06-21-2022 Chronic Other gastrointestinal disorders (1 source) Protein-losing enteropathy; Translations: [Malabsorption due to intolerance, not elsewhere classified] Chronic Other gastrointestinal disorders (20 sources) Irritable bowel syndrome; Translations: [Irritable bowel syndrome without diarrhea] 02-10-2012 Chronic Other gastrointestinal disorders (20 sources) Intestinal malabsorption; Translations: [Intestinal malabsorption, unspecified] Onset: 11-27-2021 06-03-2022 Chronic Other gastrointestinal disorders (2 sources) Irritable bowel syndrome characterized by constipation; Translations: [Irritable bowel syndrome with constipation] Chronic Other gastrointestinal disorders (1 source) Small bowel bacterial overgrowth syndrome; Translations: [Other specified diseases of intestine] Episodic Other gastrointestinal disorders (3 sources) Constipation; Translations: [Constipation, unspecified] Episodic Other gastrointestinal disorders (1 source) Abdominal bloating; Translations: [Abdominal distension (gaseous)] Episodic Other liver diseases (20 sources) Elevated liver enzymes level; Translations: [Abnormal levels of other serum enzymes] Onset: 06-30-2021 05-18-2021 Episodic Other liver diseases (20 sources) Abnormal levels of other serum enzymes; Translations: [Other nonspecific abnormal serum enzyme levels] Episodic Other liver diseases (3 sources) Increased creatine kinase level; Translations: [Abnormal levels of other serum enzymes] Episodic Other nervous system disorders (20 sources) Difficulty walking; Translations: [Difficulty in walking, not elsewhere classified] 03-21-2022 Chronic Other nervous system disorders (3 sources) Difficulty in walking, not elsewhere classified; Translations: [Difficulty in walking] Chronic Other nutritional; endocrine; and metabolic disorders (20 sources) Hypoalbuminemia; Translations: [Other disorders of plasma-protein metabolism, not elsewhere classified] Onset: 04-06-2022 03-15-2022 Chronic Other nutritional; endocrine; and metabolic disorders (7 sources) Other disorders of plasma-protein metabolism, not elsewhere classified; Translations: [Other disorders of plasma protein metabolism] Chronic Other screening for suspected conditions (not mental disorders or infectious disease) (8 sources) Blood urea abnormal; Translations: [Abnormal finding of blood chemistry, unspecified] Episodic Residual codes; unclassified (20 sources) Immunization not carried out because of patient refusal; Translations: [COVID-19 vaccination declined] Episodic Residual codes; unclassified (20 sources) Peripheral edema; Translations: [Edema, unspecified] 06-08-2021 Episodic Residual codes; unclassified (20 sources) Bilateral lower limb edema; Translations: [Localized edema] 03-15-2022 Episodic Residual codes; unclassified (8 sources) Localized edema; Translations: [Edema] Onset: 12-03-2024 Episodic Residual codes; unclassified (20 sources) Edema, generalized; Translations: [Generalized edema] 03-21-2022 Episodic Residual codes; unclassified (1 source) Generalized edema; Translations: [Edema] Episodic Residual codes; unclassified (3 sources) Edema; Translations: [Edema, unspecified] Episodic Thyroid disorders (20 sources) Hypothyroidism; Translations: [Hypothyroidism, unspecified] Onset: 10-21-2021 Chronic Past or Other Problems Problem Classification Problem Date Documented Da te Episodic/Chronic Abdominal hernia (1 source) Diaphragmatic hernia without obstruction or gangrene; Translations: [Hiatal hernia] Onset: 08-01-2024 Episodic Deficiency and other anemia (10 sources) Anemia, unspecified; Translations: [Anemia, unspecified] Onset: 07-24-2024 Episodic Deficiency and other anemia (3 sources) Iron deficiency anemia, unspecified; Translations: [Iron deficiency anemia, unspecified] Onset: 06-03-2022 05-25-2022 Episodic Gastrointestinal hemorrhage (6 sources) Hematochezia; Translations: [Melena] Onset: 07-24-2024 Episodic Mood disorders (16 sources) Depressive disorder; Translations: [Other specified depressive episodes] Resolved: 06-03-2022 06-03-2022 Chronic Other connective tissue disease (8 sources) Myositis, unspecified; Translations: [Myalgia and myositis, unspecified] Onset: 05-28-2024 Episodic Other connective tissue disease (20 sources) Tendinitis of left rotator cuff; Translations: [Other shoulder lesions, left shoulder] Onset: 11-14-2018 11-14-2018 Episodic Other gastrointestinal disorders (20 sources) Stool finding; Translations: [Other fecal abnormalities] Onset: 08-10-2022 Episodic Other gastrointestinal disorders (1 source) Diarrhea, unspecified; Translations: [Diarrhea, unspecified] Onset: 04-20-2024 Episodic Results Test Name Value Interpretation Reference Range Facility T3ee [facility] 12-27-19 25 Free T3 [Mass/Vol] 1.7 pg/mL Low 2.3-4.1 [facility] Comment on above: Order Comment: Speci men Type: BLOOD SPECIMEN Ordering Facility: [facility] Address: [address] [place] [address] Performed By: #### 5 7021-8 #### [facility] CLIA [id number] [address] [place] [address] [place] TSH SerPl-aCncon 12-26-2024 TSH Qn 1.530 m[IU]/L Normal 0.270-4.200 [facility] Comment on above: Order Comment: Speci men Type: BLOOD SPECIMEN Ordering Facility: [facility] Address: [address] [place] [address] Performed By: #### 5 7021-8 #### [facility] CLIA [id number] [address] [place] [address] [place] CBC W Auto Differential pane l (Bld)on 12-20-2024 Basophils (Bld) [#/Vol] 10*3/uL Normal <0.[address] [facility] Comment on above: Order Comment: Speci men Type: BLOOD SPECIMENOrdering Facility: [facility] Address: [address] [place] [address] Performed By: #### 5 7021-8 ####[facility] [id number] [place] [address] [place] Basophils/100 WBC (Bld) 0.3 % Normal [facility] Comment on above: Order Comment: Speci men Type: BLOOD SPECIMENOrdering Facility: [facility] Address: [address] [place] [address] Performed By: #### 5 7021-8 ####[facility] [id number] [place] [address] [place] Differential cell count method Nom (Bld) Auto Normal [facility] Comment on above: Order Comment: Speci men Type: BLOOD SPECIMENOrdering Facility: [facility] Address: [address] [place] [address] Performed By: #### 5 7021-8 ####[facility] [id number] [place] [address] [place] Eosinophils (Bld) [#/Vol] 0.07 10*3/uL Normal <0.46 [facility] Comment on above: Order Comment: Speci men Type: BLOOD SPECIMENOrdering Facility: [facility] Address: [address] [place] [address] Performed By: #### 5 7021-8 ####[facility] WILL [id number] [place] [address] [place] Eosinophils/100 WBC (Bld) 1.1 % Normal [facility] Comment on above: Order Comment: Speci men Type: BLOOD SPECIMENOrdering Facility: [facility] Address: [address] [place] [address] Performed By: #### 5 7021-8 ####[facility] RANMaria CNCCEZAR [id number] [place] [address] [place] Erythrocyte distribution width (RBC) [Ratio] 19.1 % High 11.5-15.0 [facility] Comment on above: Order Comment: Speci men Type: BLOOD SPECIMENOrdering Facility: [facility] Address: [address] [place] [address] Performed By: #### 5 7021-8 ####[facility]USNCLIA [id number] [place] [address] [place] Hematocrit (Bld) [Volume fraction] 28.0 % Low 36.0-46.0 [facility] Comment on above: Order Comment: Speci men Type: BLOOD SPECIMENOrdering Facility: [facility] Address: [address] [place] [address] Performed By: #### 5 7021-8 ####[facility] RANSTEUBENNCLIA [id number] [place] [address] [place] Hemoglobin (Bld) [Mass/Vol] 9.4 g/dL Low 11.5-15.5 [facility] Comment on above: Order Comment: Speci men Type: BLOOD SPECIMENOrdering Facility: [facility] Address: [address] [place] [address] Performed By: #### 5 7021-8 ####[facility] MILLWNCLIA [id number] [place] [address] [place] Immature granulocytes (Bld) [#/Vol] 10*3/uL Normal <0.10 [facility] Comment on above: Order Comment: Speci men Type: BLOOD SPECIMENOrdering Facility: [facility] Address: [address] [place] [address] Performed By: #### 5 7021-8 ####[facility] [id number] [place] [address] [place] Immature granulocytes/100 WBC (Bld) 0.2 % Normal [facility] Comment on above: Order Comment: Speci men Type: BLOOD SPECIMENOrdering Facility: [facility] Address: [address] [place] [address] Performed By: #### 5 7021-8 ####[facility] [id number] [place] [address] [place] Lymphocytes (Bld) [#/Vol] 0.93 10*3/uL Low 1.00-4.00 [facility] Comment on above: Order Comment: Speci men Type: BLOOD SPECIMENOrdering Facility: [facility] Address: [address] [place] [address] Performed By: #### 5 7021-8 ####[facility]ENTERWNCLIA [id number] [place] [address] [place] Lymphocytes/100 WBC (Bld) 15.1 % Normal [facility] Comment on above: Order Comment: Speci men Type: BLOOD SPECIMENOrdering Facility: [facility] Address: [address] [place] [address] Performed By: #### 5 7021-8 ####[facility] [id number] [place] [address] [place] MCH (RBC) [Entitic mass] 27.6 pg Normal 26.0-34.0 [facility] Comment on above: Order Comment: Speci men Type: BLOOD SPECIMENOrdering Facility: [facility] Address: [address] [place] [address] Performed By: #### 5 7021-8 ####[facility]USNCUNIVERS[facility] [id number] [place] [address] [place] MCHC (RBC) [Mass/Vol] 33.6 g/dL Normal 30.5-36.0 [facility] Comment on above: Order Comment: Speci men Type: BLOOD SPECIMENOrdering Facility: [facility] Address: [address] [place] [address] Performed By: #### 5 7021-8 ####[facility]USNCUNIVERS[facility] [id number] [place] [address] [place] MCV (RBC) [Entitic vol] 82.1 fL Normal 80.0-100.[address] [facility] Comment on above: Order Comment: Speci men Type: BLOOD SPECIMENOrdering Facility: [facility] Address: [address] [place] [address] Performed By: #### 5 7021-8 ####[facility]USNCUNIVERS[facility] [id number] [place] [address] [place] Monocytes (Bld) [#/Vol] 0.57 10*3/uL Normal <0.87 [facility] Comment on above: Order Comment: Speci men Type: BLOOD SPECIMENOrdering Facility: [facility] Address: [address] [place] [address] Performed By: #### 5 7021-8 ####[facility] CAMPUSNCLI [id number] [address] [place] Monocytes/100 WBC (Bld) 9.3 % Normal [facility] Comment on above: Order Comment: Speci men Type: BLOOD SPECIMENOrdering Facility: [facility] Address: [address] [place] [address] Performed By: #### 5 7021-8 ####[facility] CAMPUSAURORALIA [id number] [place] [address] [place] Neutrophils (Bld) [#/Vol] 4.56 10*3/uL Normal 1.45-7.50 [facility] Comment on above: Order Comment: Speci men Type: BLOOD SPECIMENOrdering Facility: [facility] Address: [address] [place] [address] Performed By: #### 5 7021-8 ####[facility]A [id number] [place] [address] [place] Neutrophils/100 WBC (Bld) 74.0 % Normal [facility] Comment on above: Order Comment: Speci men Type: BLOOD SPECIMENOrdering Facility: [facility] Address: [address] [place] [address] Performed By: #### 5 7021-8 ####[facility]ITALA [id number] [place] [address] [place] Nucleated RBC (Bld) [#/Vol] 10*3/uL Normal <0.01 [facility] Comment on above: Order Comment: Speci men Type: BLOOD SPECIMENOrdering Facility: [facility] Address: [address] [place] [address] Performed By: #### 5 7021-8 ####[facility] [id number] [place] [address] [place] Nucleated RBC/100 WBC (Bld) [Ratio] 0.0 /100 WBC Normal [facility] Comment on above: Order Comment: Speci men Type: BLOOD SPECIMENOrdering Facility: [facility] Address: [address] [place] [address] Performed By: #### 5 7021-8 ####[facility] RANWNCLIA [id number] [place] [address] [place] Platelet mean volume (Bld) [Entitic vol] 9.7 fL Normal 9.0-12.7 [facility] Comment on above: Order Comment: Speci men Type: BLOOD SPECIMENOrdering Facility: [facility] Address: [address] [place] [address] Performed By: #### 5 7021-8 ####[facility] CAMPUSAURORALIA [id number] [place] [address] [place] Platelets (Bld) [#/Vol] 344 10*3/uL Normal 150-400 [facility] Comment on above: Order Comment: Speci men Type: BLOOD SPECIMENOrdering Facility: [facility] Address: [address] [place] [address] Performed By: #### 5 7021-8 ####[facility] [id number] [place] [address] [place] RBC (Bld) [#/Vol] 3.41 10*6/uL Low 3.90-5.20 [facility] Comment on above: Order Comment: Speci men Type: BLOOD SPECIMENOrdering Facility: [facility] Address: [address] [place] [address] Performed By: #### 5 7021-8 ####[facility] [id number] [place] [address] [place] WBC (Bld) [#/Vol] 6.16 10*3/uL Normal 3.70-11.00 [facility] Comment on above: Order Comment: Speci men Type: BLOOD SPECIMENOrdering Facility: [facility] Address: [address] [place] [address] Performed By: #### 5 7021-8 ####[facility] CAMPUSNCLIA [id number] [place] [address] [place] Comprehensive metabolic 2000 panelon 12-20-2024 Albumin [Mass/Vol] 3.9 g/dL Normal 3.9-4.9 [facility] Comment on above: Order Comment: Speci men Type: BLOOD SPECIMENOrdering Facility: [facility] Address: [address] [place] [address] Performed By: #### 2 532-0, 85599-1 ####[facility] RANVICTOR MWALPHONSOA [id number] [place] [address] [place] ALP [Catalytic activity/Vol] 61 U/L Normal 34-123 [facility] Comment on above: Order Comment: Speci men Type: BLOOD SPECIMENOrdering Facility: [facility] Address: [address] [place] [address] Performed By: #### 2 532-0, 33528-8 ####[facility] CAMPUSDANNY [id number] [place] [address] [place] ALT [Catalytic activity/Vol] 19 U/L Normal 7-38 [facility] Comment on above: Order Comment: Speci men Type: BLOOD SPECIMENOrdering Facility: [facility] Address: [address] [place] [address] Performed By: #### 2 532-0, 46760-1 ####[facility] CAMPUSNCAMNAA [id number] [place] [address] [place] Anion gap [Moles/Vol] 8 mmol/L Normal 8-15 [facility] Comment on above: Order Comment: Speci men Type: BLOOD SPECIMENOrdering Facility: [facility] Address: [address] [place] [address] Performed By: #### 2 532-0, 28932-3 ####[facility] CAMPUSNCLIA [id number] [place] [address] [place] OF [place] AST [Catalytic activity/Vol] 17 U/L Normal 13-35 [facility] Comment on above: Order Comment: Speci men Type: BLOOD SPECIMENOrdering Facility: [facility] Address: [address] [place] [address] Performed By: #### 2 532-0, 85372-9 ####[facility] [id number] [place] [address] [place] Bilirubin [Mass/Vol] 0.2 mg/dL Normal 0.2-1.3 [facility] Comment on above: Order Comment: Speci men Type: BLOOD SPECIMENOrdering Facility: [facility] Address: [address] [place] [address] Performed By: #### 2 532-0, 84831-3 ####[facility] [id number] [place] [address] [place] Calcium [Mass/Vol] 10.0 mg/dL Normal 8.5-10.2 [facility] Comment on above: Order Comment: Speci men Type: BLOOD SPECIMENOrdering Facility: [facility] Address: [address] [place] [address] Performed By: #### 2 532-0, 96239-9 ####[facility] [id number] [place] [address] [place] Chloride [Moles/Vol] 102 mmol/L Normal 98-107 [facility] Comment on above: Order Comment: Speci men Type: BLOOD SPECIMENOrdering Facility: [facility] Address: [address] [place] [address] Performed By: #### 2 532-0, 75250-2 ####[facility] [id number] [place] [address] [place] CO2 [Moles/Vol] 27 mmol/L Normal 22-30 [facility] Comment on above: Order Comment: Speci men Type: BLOOD SPECIMENOrdering Facility: [facility] Address: [address] [place] [address] Performed By: #### 2 532-0, 86887-2 ####[facility] [id number] [place] [address] [place] Creatinine [Mass/Vol] 0.62 mg/dL Normal 0.58-0.96 [facility] Comment on above: Order Comment: Speci men Type: BLOOD SPECIMENOrdering Facility: [facility] Address: [address] [place] [address] Performed By: #### 2 532-0, 51559-5 ####[facility]USNCLI [id number] [place] [address] [place] eGFRcr SerPlBld CKD-EPI 2020 103 mL/min/1.73m??? Normal >=60 [facility] Comment on above: Order Comment: Speci men Type: BLOOD SPECIMENOrdering Facility: [facility] Address: [address] [place] [address] Result Comment: Jannet mated Glomerular Filtration Rate (eGFR) is calculated using the 2020 CKD-EPI creatinine equation. This equation utilizes serum creatinine, sex, and age as parameters. The creatinine assay has traceable calibration to isotope dilution-mass spectrometry. Refer to KDIGO guidelines for clinical interpretation. In patients with unstable renal function, e.g. those with acute kidney injury, the eGFR may not accurately reflect actual GFR. Performed By: #### 2 532-0, 74703-3 ####[facility]USNCLIA [id number] [place] [address] [place] Glucose [Mass/Vol] 103 mg/dL High 74-99 [facility] Comment on above: Order Comment: Speci men Type: BLOOD SPECIMENOrdering Facility: [facility] Address: [address] [place] [address] Result Comment: The [place] Diabetes Association (ADA) provides guidance for cutoff values for fasting glucose and random glucose. The ADA defines fasting as no caloric intake for at least 8 hours. Fasting plasma glucose results between 100 to 125 mg/dL indicate increased risk for diabetes (prediabetes). Fasting plasma glucose results greater than or equal to 126 mg/dL meet the criteria for diagnosis of diabetes. In the absence of unequivocal hyperglycemia, results should be confirmed by repeat testing. In a patient with classic symptoms of hyperglycemia or hyperglycemic crisis, random plasma glucose results greater than or equal to 200 mg/dL meet the criteria for diagnosis of diabetes. Reference: Standards of Medical Care in Diabetes 2016, [place] [employer] Association. Diabetes Care. 2016.39(Suppl 1). Performed By: #### 2 532-0, 01784-9 ####[facility]ILL[facility]OWNCLIA [id number] [place] [address] [place] Potassium [Moles/Vol] 4.3 mmol/L Normal 3.7-5.1 [facility] Comment on above: Order Comment: Speci men Type: BLOOD SPECIMENOrdering Facility: [facility] Address: [address] [place] [address] Performed By: #### 2 532-0, 23283-7 ####[facility] [id number] [place] [address] [place] Protein [Mass/Vol] 5.9 g/dL Low 6.3-8.0 [facility] Comment on above: Order Comment: Speci men Type: BLOOD SPECIMENOrdering Facility: [facility] Address: [address] [place] [address] Performed By: #### 2 532-0, 31801-7 ####[facility]USNCLIA [id number] [place] [address] [place] Sodium [Moles/Vol] 137 mmol/L Normal 136-144 [facility] Comment on above: Order Comment: Speci men Type: BLOOD SPECIMENOrdering Facility: [facility] Address: [address] [place] [address] Performed By: #### 2 532-0, ####[facility] [id number] [place] [address] [place] Urea nitrogen [Mass/Vol] 41 mg/dL High 7-21 [facility] Comment on above: Order Comment: Speci men Type: BLOOD SPECIMENOrdering Facility: [facility] Address: [address] [place] [address] Performed By: #### 2 532-0, 38526-4 ####[facility] [id number] [place] [address] [place] IMMUNOFIXATION SCREEN, SERUM on 12-20-2024 MPA RESULT No M protein is identified. Normal No M protein is identified. [facility] Comment on above: Order Comment: Speci men Type: BLOOD SPECIMEN [facility] Address: [address] [place] [address] Performed By: #### I FES #### [facility] CLIA [id number] [address] [place] [address] [place] STAFF REVIEW (MPA) Reviewed by Shauna Pedraza MD Normal [facility] Comment on above: Order Comment: Speci men Type: BLOOD SPECIMEN [facility] Address: [address] [place] [address] Performed By: #### I FES #### [facility] CLIA [id number] [address] [place] [address] [place] IMMUNOGLOBULINS,IGG,IGA,IGMo n 12-20-2024 IgA [Mass/Vol] 32 mg/dL Low 70-400 [facility] Comment on above: Order Comment: Speci men Type: BLOOD SPECIMENOrdering Facility: [facility] Address: [address] [place] [address] Performed By: #### S ERIMM ####[facility] LABCLIA [id number] [place] [address] [place] IgG [Mass/Vol] 553 mg/dL Low 700-1600 [facility] Comment on above: Order Comment: Speci men Type: BLOOD SPECIMENOrdering Facility: [facility] Address: [address] [place] [address] Performed By: #### S ERIMM ####[facility] LABCLIA [id number] [place] [address] [place] IgM [Mass/Vol] 26 mg/dL Low 40-230 [facility] Comment on above: Order Comment: Speci men Type: BLOOD SPECIMENOrdering Facility: [facility] Address: [address] [place] [address] Performed By: #### S ERIMM ####[facility] LABCLIA [id number] [place] [address] [place] KAPPA/VIVEROS,FREE,SERon 2024 Immunoglobulin light chains.kappa.free (S) [Mass/Vol] 15.1 mg/L Normal 3.3-19.4 [facility] Comment on above: Order Comment: Speci men Type: BLOOD SPECIMENOrdering Facility: [facility] Address: [address] [place] [address] Result Comment: Rare ly, increased serum free light chains levels may not be detected or accurately quantified due to prozone phenomenon or in high viscosity samples using this immunoturbidimetric assay. Correlation with other laboratory results and clinical findings is recommended. The [place] Free Light Chain was performed using the Binding Site Optilite immunoturbidimetric method. Result obtained with different assay methods or kits cannot be used interchangeably. Performed By: #### K LFRS ####[facility] LABCLIA [id number] [place] [address] [place] Immunoglobulin light chains.kappa/Immunoglobu dariana light chains.lambda (S) [Mass ratio] 0.12 Low 0.26-1.65 [facility] Comment on above: Order Comment: Speci men Type: BLOOD SPECIMENOrdering Facility: [facility] Address: [address] [place] [address] Performed By: #### K LFRS ####[facility] LABCLIA [id number] [place] [address] [place] Immunoglobulin light chains.lambda.free [Mass/Vol] 121.9 mg/L High 5.7-26.3 [facility] Comment on above: Order Comment: Speci men Type: BLOOD SPECIMENOrdering Facility: [facility] Address: [address] [place] [address] Result Comment: Rare ly, increased serum free light chains levels may not be detected or accurately quantified due to prozone phenomenon or in high viscosity samples using this immunoturbidimetric assay. Correlation with other laboratory results and clinical findings is recommended. The [place] Free Light Chain was performed using the Binding Site Optilite immunoturbidimetric method. Result obtained with different assay methods or kits cannot be used interchangeably. Performed By: #### K LFRS ####[facility] LABCLIA [id number] [place] [address] [place] LDH SerPl-cCncon 12-20-2024 LDH [Catalytic activity/Vol] 175 U/L Normal 135-214 [facility] Comment on above: Order Comment: Speci [facility] Type: BLOOD SPECIMEN [facility] Address: [address] [place] [address] Performed By: #### I FESC #### [facility] CLIA [id number] [address] [place] [address] [place] MONOCLONAL PROT UR W/INTERPo n 12-20-2024 INTERPRETATION (PA) Poorly defined reg ion of region of restricted mobility in the lambda fadi. Pattern is less well defined or fainter than typically seen in monoclonal gammopathy. This could represent either an atypical presentation of polyclonal immunoglobulins or the presence of a low level lambda containing monoclonal gammopathy. If clinically indicated, serum monoclonal protein analysis and serum free light chain measurements are recommended to evaluate further for monoclonal gammopathy. Clinical correlation is necessary. Normal [facility] Comment on above: Order Comment: Speci men Type: URINE SPECIMENOrdering Facility: [facility] Address: [address] [place] [address] Performed By: #### U RMPA ####[facility] LABCLIA [id number] [address] OF [place] STAFF REVIEW (UMPA) Reviewed by Shauna Pedraza MD Normal [facility] Comment on above: Order Comment: Speci men Type: URINE SPECIMENOrdering Facility: [facility] Address: [address] [place] [address] Performed By: #### U RMPA ####[facility] LABIA [id number] [place] [address] [place] UMPA RESULT A poorly defined reg ion of restricted mobility is present that may represent an M protein. Abnormal No M protein is identified. [facility] Comment on above: Order Comment: Speci men Type: URINE SPECIMENOrdering Facility: [facility] Address: [address] [place] [address] Performed By: #### U RMPA ####[facility] [id number] [place] [address] [place] PROTEIN ELECTROPHORESIS SERU M (P)on 12-20-2024 Albumin [Mass/Vol] 3.76 g/dL Normal 3.43-5.41 [facility] Comment on above: Order Comment: Speci men Type: BLOOD SPECIMENOrdering Facility: [facility] Address: [address] [place] [address] Performed By: #### L [id number] ####[facility] LABIA [id number] [place] [id number] [place] Alpha 1 globulin Elph [Mass/Vol] 0.22 g/dL Normal 0.18-0.43 [facility] Comment on above: Order Comment: Speci men Type: BLOOD SPECIMENOrdering Facility: [facility] Address: [address] [place] [address] Performed By: #### L [id number] ####[facility] LABIA [id number] [place] [address] [place] Alpha 2 globulin Elph [Mass/Vol] 0.46 g/dL Normal 0.42-0.98 [facility] Comment on above: Order Comment: Speci men Type: BLOOD SPECIMENOrdering Facility: [facility] Address: [address] [place] [address] Performed By: #### L [id number] ####[facility] LABIA [id number] [place] [address] [place] Beta globulin Elph [Mass/Vol] 0.63 g/dL Normal 0.61-1.17 [facility] Comment on above: Order Comment: Speci men Type: BLOOD SPECIMENOrdering Facility: [facility] Address: [address] [place] [address] Performed By: #### L [id number] ####[facility] LABIA [id number] [address] STATES OF [facility] Gamma globulin Elph [Mass/Vol] 0.44 g/dL Low 0.53-1.51 [facility] Comment on above: Order Comment: Speci men Type: BLOOD SPECIMENOrdering Facility: [facility] Address: [address] [place] [address] Performed By: #### L [id number] ####[facility] [id number] [place] [address] [place] M-PROTEIN LOCATION Normal [facility] Comment on above: Order Comment: Speci men Type: BLOOD SPECIMENOrdering Facility: [facility] Address: [address] [place] [address] Result Comment: Not Applicable. Performed By: #### L [id number] ####[facility] LABIA [id number] [place] [address] [place] Protein Fractions [Interp] No definitive M protein is identified on protein electrophoresis. Normal No definitive M protein is identified on protein electrophore sis. [facility] Comment on above: Order Comment: Speci men Type: BLOOD SPECIMENOrdering Facility: [facility] Address: [address] [place] [address] Performed By: #### L [id number] ####[facility] LABCLIA [id number] [place] [address] [place] Protein.monoclonal Elph [Mass/Vol] 0.00 g/dL Normal <=0.00 [facility] Comment on above: Order Comment: Speci men Type: BLOOD SPECIMENOrdering Facility: [facility] Address: [address] [place] [address] Performed By: #### L [id number] ####[facility] LABIA [id number] [place] [address] [place] SPE STAFF REVIEW Reviewed by Shauna Pedraza MD [facility] Comment on above: Order Comment: Speci men Type: BLOOD SPECIMENOrdering Facility: [facility] Address: [address] [place] [address] Performed By: #### L [id number] ####[facility] LABIA [id number] [place] [address] [place] Prot SerPl-mCncon 12-20-2024 Protein [Mass/Vol] 5.5 g/dL Low 6.3-8.0 [facility] Comment on above: Order Comment: Speci men Type: BLOOD SPECIMENOrdering Facility: [facility] Address: [address] [place] [address] Performed By: #### 2 885-2 ####[facility] LABIA [id number] [place] [address] [place] Prot Ur-mCncon 12-20-2024 Protein (U) [Mass/Vol] 4 mg/dL Normal 0-20 [facility] Comment on above: Order Comment: Speci men Type: URINE SPECIMENOrdering Facility: [facility] Address: [address] [place] [address] Performed By: #### 2 888-6 ####[facility] LABIA [id number] [place] [address] [place] URINE PROTEIN ELECTROPHORESI S RANDOM (P)on 12-20-2024 Albumin Elph (U) [Mass fraction] 35.38 % Normal [facility] Comment on above: Order Comment: Speci men Type: URINE SPECIMENOrdering Facility: [facility] Address: [address] [place] [address] Performed By: #### L [id number] ####[facility] LABIA [id number] [place] [address] [place] Alpha 1 globulin Elph (U) [Mass fraction] 8.66 % Normal [facility] Comment on above: Order Comment: Speci men Type: URINE SPECIMENOrdering Facility: [facility] Address: [address] [place] [address] Performed By: #### L [id number] ####[facility] [id number] [place] [address] [place] Alpha 2 globulin Elph (U) [Mass fraction] 17.45 % Normal [facility] Comment on above: Order Comment: Speci men Type: URINE SPECIMENOrdering Facility: [facility] Address: [address] [place] [address] Performed By: #### L [id number] ####[facility] LABIA [id number] [place] [address] [place] Beta globulin Elph (U) [Mass fraction] 27.92 % Normal [facility] Comment on above: Order Comment: Speci men Type: URINE SPECIMENOrdering Facility: [facility] Address: [address] [place] [address] Performed By: #### L [id number] ####[facility] LABIA [id number] [place] [id number] [place] Gamma globulin Elph (U) [Mass fraction] 10.59 % Normal [facility] Comment on above: Order Comment: Speci men Type: URINE SPECIMENOrdering Facility: [facility] Address: [address] [place] [address] Performed By: #### L [id number] ####[facility] LABCLIA [id number] [place] [address] [place] Protein Fractions Elph Shayne (U) [Interp] No definitive M protein is identified on protein electrophoresis. Normal No definitive M protein is identified on protein electrophore sis. [facility] Comment on above: Order Comment: Speci men Type: URINE SPECIMENOrdering Facility: [facility] Address: [address] [place] [address] Performed By: #### L [id number] ####[facility] LABCLIA [id number] [address] STATES OF [place] STAFF REVIEW (URINE ELECTRO) Reviewed by Shauna Pedraza MD Normal [facility] Comment on above: Order Comment: Speci men Type: URINE SPECIMENOrdering Facility: [facility] Address: [address] [place] [address] Performed By: #### L [id number] ####[facility] LABCLIA [id number] [address] STATES OF [place] Anion gap in Serum or Plasma Ordered By: Jorden Madera on 11-20-2024 Anion gap [Moles/Vol] 8 mmol/L 5-15 [facility] BUN/creatinine ratioOrdered By: Jorden Madera on 11-20-2024 Urea nitrogen/Creatinine [Mass ratio] 66.3 mg/mg High 10-20 [facility] Bilirubin, totalOrdered By: Jorden Madera on 11-20-2024 Bilirubin [Mass/Vol] mg/dL 0.00-1.30 [facility] Carbon dioxide, total [Moles /volume] in Central venous bloodOrdered By: Jorden Madera on 11-20-2024 CO2 [Moles/Vol] 26.5 mmol/L 21.0-32.0 [facility] Chloride assayOrdered By: Alona graham McMorrow on 11-20-2024 Chloride [Moles/Vol] 103 mmol/L 98-108 [facility] Comprehensive Metabolic Prof ilon 11-20-2024 Albumin [Mass/Vol] 3.9 g/dL Normal 3.5-5.0 [facility] Comment on above: Order Comment: 1 Performed By: #### L 801.2650, L501.98429, L506.1000, L503.6550, L801.1541, L500.4100, L506.0400, L101.9900, L504.2610, L501.9310, L501.5101, L501.9186, L801.1543, L100.0100, L501.9520, L503.6030, L501.9985, L3400.1350, L3250.0100, L3100.7870, L803.0600, L3300.7100, L500.4050, L3300.0100, L3300.6900, L3300.1900, L300.4700, L501.1400 #### [facility] [address] [place], [address] Albumin/Globulin [Mass ratio] 1.9 {ratio} Normal 0.9-2.4 [facility] Comment on above: Order Comment: 1 Performed By: #### L 801.2650, L501.59141, L506.1000, L503.6550, L801.1541, L500.4100, L506.0400, L101.9900, L504.2610, L501.9310, L501.5101, L501.9186, L801.1543, L100.0100, L501.9520, L503.6030, L501.9985, L3400.1350, L3250.0100, L3100.7870, L803.0600, L3300.7100, L500.4050, L3300.0100, L3300.6900, L3300.1900, L300.4700, L501.1400 #### [facility] [address] [place], [place], [id number] ALK PHOS 66 U/L Normal 35-104 [facility] Comment on above: Order Comment: 1 Performed By: #### L 801.2650, L501.14331, L506.1000, L503.6550, L801.1541, L500.4100, L506.0400, L101.9900, L504.2610, L501.9310, L501.5101, L501.9186, L801.1543, L100.0100, L501.9520, L503.6030, L501.9985, L3400.1350, L3250.0100, L3100.7870, L803.0600, L3300.7100, L500.4050, L3300.0100, L3300.6900, L3300.1900, L300.4700, L501.1400 #### [facility] [address] [place], [address] ALT [Catalytic activity/Vol] 25 U/L Normal <=34 [facility] Comment on above: Order Comment: 1 Performed By: #### L 801.2650, L501.12749, L506.1000, L503.6550, L801.1541, L500.4100, L506.0400, L101.9900, L504.2610, L501.9310, L501.5101, L501.9186, L801.1543, L100.0100, L501.9520, L503.6030, L501.9985, L3400.1350, L3250.0100, L3100.7870, L803.0600, L3300.7100, L500.4050, L3300.0100, L3300.6900, L3300.1900, L300.4700, L501.1400 #### [facility] [address] [place], [address] AST [Catalytic activity/Vol] 21 U/L Normal <=31 [facility] Comment on above: Order Comment: 1 Performed By: #### L 801.2650, L501.15842, L506.1000, L503.6550, L801.1541, L500.4100, L506.0400, L101.9900, L504.2610, L501.9310, L501.5101, L501.9186, L801.1543, L100.0100, L501.9520, L503.6030, L501.9985, L3400.1350, L3250.0100, L3100.7870, L803.0600, L3300.7100, L500.4050, L3300.0100, L3300.6900, L3300.1900, L300.4700, L501.1400 #### [facility] [address] [place], [address] BUN/CRE 66.3 RATIO High 10-20 [facility] Comment on above: Order Comment: 1 Performed By: #### L 801.2650, L501.25279, L506.1000, L503.6550, L801.1541, L500.4100, L506.0400, L101.9900, L504.2610, L501.9310, L501.5101, L501.9186, L801.1543, L100.0100, L501.9520, L503.6030, L501.9985, L3400.1350, L3250.0100, L3100.7870, L803.0600, L3300.7100, L500.4050, L3300.0100, L3300.6900, L3300.1900, L300.4700, L501.1400 #### [facility] [address] [place], [address] Calcium [Mass/Vol] 9.5 mg/dL Normal 7.6-11.0 [facility] Comment on above: Order Comment: 1 Performed By: #### L 801.2650, L501.95251, L506.1000, L503.6550, L801.1541, L500.4100, L506.0400, L101.9900, L504.2610, L501.9310, L501.5101, L501.9186, L801.1543, L100.0100, L501.9520, L503.6030, L501.9985, L3400.1350, L3250.0100, L3100.7870, L803.0600, L3300.7100, L500.4050, L3300.0100, L3300.6900, L3300.1900, L300.4700, L501.1400 #### [facility] [address] [place], [place], [id number] Chloride [Moles/Vol] 103 mmol/L Normal 98-108 [facility] Comment on above: Order Comment: 1 Performed By: #### L 801.2650, L501.42497, L506.1000, L503.6550, L801.1541, L500.4100, L506.0400, L101.9900, L504.2610, L501.9310, L501.5101, L501.9186, L801.1543, L100.0100, L501.9520, L503.6030, L501.9985, L3400.1350, L3250.0100, L3100.7870, L803.0600, L3300.7100, L500.4050, L3300.0100, L3300.6900, L3300.1900, L300.4700, L501.1400 #### [facility] [address], [place], [id number] (628) CO2 [Moles/Vol] 26.5 mmol/L Normal 21.0-32.0 [facility] Comment on above: Order Comment: 1 Performed By: #### L 801.2650, L501.18373, L506.1000, L503.6550, L801.1541, L500.4100, L506.0400, L101.9900, L504.2610, L501.9310, L501.5101, L501.9186, L801.1543, L100.0100, L501.9520, L503.6030, L501.9985, L3400.1350, L3250.0100, L3100.7870, L803.0600, L3300.7100, L500.4050, L3300.0100, L3300.6900, L3300.1900, L300.4700, L501.1400 #### [facility] [address] [facility]. [place], [place], [id number] Creatinine [Mass/Vol] 0.56 mg/dL Low 0.70-1.20 [facility] Comment on above: Order Comment: 1 Performed By: #### L 801.2650, L501.68695, L506.1000, L503.6550, L801.1541, L500.4100, L506.0400, L101.9900, L504.2610, L501.9310, L501.5101, L501.9186, L801.1543, L100.0100, L501.9520, L503.6030, L501.9985, L3400.1350, L3250.0100, L3100.7870, L803.0600, L3300.7100, L500.4050, L3300.0100, L3300.6900, L3300.1900, L300.4700, L501.1400 #### [facility] [address] [place], [place], [id number] GAP 8 Normal 5-15 [facility] Comment on above: Order Comment: 1 Performed By: #### L 801.2650, L501.38958, L506.1000, L503.6550, L801.1541, L500.4100, L506.0400, L101.9900, L504.2610, L501.9310, L501.5101, L501.9186, L801.1543, L100.0100, L501.9520, L503.6030, L501.9985, L3400.1350, L3250.0100, L3100.7870, L803.0600, L3300.7100, L500.4050, L3300.0100, L3300.6900, L3300.1900, L300.4700, L501.1400 #### [facility] [address] [facility] [place], [address] GFR/1.73 sq M.predicted among non-blacks MDRD (S/P/Bld) [Vol rate/Area] 105 mL/min/{1.73_m2} Normal >60 [facility] Comment on above: Order Comment: 1 Result Comment: mL/m in/1.73m2 CKD-EPI Creatinine Equation (2020) Performed By: #### L 801.2650, L501.19994, L506.1000, L503.6550, L801.1541, L500.4100, L506.0400, L101.9900, L504.2610, L501.9310, L501.5101, L501.9186, L801.1543, L100.0100, L501.9520, L503.6030, L501.9985, L3400.1350, L3250.0100, L3100.7870, L803.0600, L3300.7100, L500.4050, L3300.0100, L3300.6900, L3300.1900, L300.4700, L501.1400 #### [facility] [address] [facility] [place], [address] Globulin (S) [Mass/Vol] 2.0 g/dL Low 2.2-4.2 [facility] Comment on above: Order Comment: 1 Performed By: #### L 801.2650, L501.83216, L506.1000, L503.6550, L801.1541, L500.4100, L506.0400, L101.9900, L504.2610, L501.9310, L501.5101, L501.9186, L801.1543, L100.0100, L501.9520, L503.6030, L501.9985, L3400.1350, L3250.0100, L3100.7870, L803.0600, L3300.7100, L500.4050, L3300.0100, L3300.6900, L3300.1900, L300.4700, L501.1400 #### [facility] [address] [facility] [place], [address] Glucose [Mass/Vol] 102 mg/dL High 70-99 [facility] Comment on above: Order Comment: 1 Performed By: #### L 801.2650, L501.62127, L506.1000, L503.6550, L801.1541, L500.4100, L506.0400, L101.9900, L504.2610, L501.9310, L501.5101, L501.9186, L801.1543, L100.0100, L501.9520, L503.6030, L501.9985, L3400.1350, L3250.0100, L3100.7870, L803.0600, L3300.7100, L500.4050, L3300.0100, L3300.6900, L3300.1900, L300.4700, L501.1400 #### [facility] [address] [place], [address] Potassium [Moles/Vol] 4.3 mmol/L Normal 3.3-5.1 [facility] Comment on above: Order Comment: 1 Performed By: #### L 801.2650, L501.42507, L506.1000, L503.6550, L801.1541, L500.4100, L506.0400, L101.9900, L504.2610, L501.9310, L501.5101, L501.9186, L801.1543, L100.0100, L501.9520, L503.6030, L501.9985, L3400.1350, L3250.0100, L3100.7870, L803.0600, L3300.7100, L500.4050, L3300.0100, L3300.6900, L3300.1900, L300.4700, L501.1400 #### [facility] [address] [facility]. [place], [place], [address] Sodium [Moles/Vol] 138 mmol/L Normal 133-145 [facility] Comment on above: Order Comment: 1 Performed By: #### L 801.2650, L501.67924, L506.1000, L503.6550, L801.1541, L500.4100, L506.0400, L101.9900, L504.2610, L501.9310, L501.5101, L501.9186, L801.1543, L100.0100, L501.9520, L503.6030, L501.9985, L3400.1350, L3250.0100, L3100.7870, L803.0600, L3300.7100, L500.4050, L3300.0100, L3300.6900, L3300.1900, L300.4700, L501.1400 #### [facility] [address] [place], [place], [id number] T BILI < 0.15 Normal 0.00-1.30 [facility] Comment on above: Order Comment: 1 Performed By: #### L 801.2650, L501.76899, L506.1000, L503.6550, L801.1541, L500.4100, L506.0400, L101.9900, L504.2610, L501.9310, L501.5101, L501.9186, L801.1543, L100.0100, L501.9520, L503.6030, L501.9985, L3400.1350, L3250.0100, L3100.7870, L803.0600, L3300.7100, L500.4050, L3300.0100, L3300.6900, L3300.1900, L300.4700, L501.1400 #### [facility] [address] [place], [address] T PROT 5.9 g/dL Normal 5.9-8.4 [facility] Comment on above: Order Comment: 1 Performed By: #### L 801.2650, L501.16828, L506.1000, L503.6550, L801.1541, L500.4100, L506.0400, L101.9900, L504.2610, L501.9310, L501.5101, L501.9186, L801.1543, L100.0100, L501.9520, L503.6030, L501.9985, L3400.1350, L3250.0100, L3100.7870, L803.0600, L3300.7100, L500.4050, L3300.0100, L3300.6900, L3300.1900, L300.4700, L501.1400 #### [facility] [address] [facility] [place], [address] Urea nitrogen [Mass/Vol] 37 mg/dL High 4-19 [facility] Comment on above: Order Comment: 1 Performed By: #### L 801.2650, L501.04110, L506.1000, L503.6550, L801.1541, L500.4100, L506.0400, L101.9900, L504.2610, L501.9310, L501.5101, L501.9186, L801.1543, L100.0100, L501.9520, L503.6030, L501.9985, L3400.1350, L3250.0100, L3100.7870, L803.0600, L3300.7100, L500.4050, L3300.0100, L3300.6900, L3300.1900, L300.4700, L501.1400 #### [facility] [address] [place], [address] Glomerular filtration rate ( GFR) estimation/1.73 sq m using serum, plasma, or whole bOrdered By: [facility] GFR/1.73 sq M.predicted among non-blacks MDRD (S/P/Bld) [Vol rate/Area] 105 mL/min/{1.73_m2} >60 [facility] Comment on above: mL/min/1.73m2 CKD-EP I Creatinine Equation (2020) Laboratory - Chemistry and C hemistry - challengeOrdered By: [facility]24 AST [Catalytic activity/Vol] 21 U/L <32 [facility] Potassium measurement (mass/ volume)Ordered By: [facility] 11-20-2024 Potassium (Unsp spec) [Mass/Vol] 4.3 mmol/L 3.3-5.1 [facility] Serum creatinine measurement (mass/volume)Ordered By: [facility] 11-20-2024 Creatinine [Mass/Vol] 0.56 mg/dL Low 0.70-1.20 [facility] Serum globulin measurementOr dered By: [facility] 11-20-2024 Globulin (S) [Mass/Vol] 2.0 g/dL Low 2.2-4.2 [facility] Serum glucose measurement (m ass/volume)Ordered By: [facility] 11-20-2024 Glucose [Mass/Vol] 102 mg/dL High 70-99 [facility] Serum or plasma alanine silva otransferase (ALT) measurementOrdered By: [facility] 11-20-2024 ALT [Catalytic activity/Vol] 25 U/L <35 [facility] Serum or plasma albumin vickie urement (mass/volume)Or[facility] By: [facility]-2024 Albumin [Mass/Vol] 3.9 g/dL 3.5-5.0 [facility] Serum or plasma albumin/glob ulin mass ratioOrdered By: [facility] on 11-20-2024 Albumin/Globulin [Mass ratio] 1.9 {ratio} 0.9-2.4 [facility] Serum or plasma alkaline barrett sphatase measurementOrdered By: Jorden [facility] on 11-20-2024 ALP [Catalytic activity/Vol] 66 U/L 35-104 [facility] Serum or plasma calcium vickie urement (mass/volume)Ordered By: [facility] on 11-20-2024 Calcium [Mass/Vol] 9.5 mg/dL 7.6-11.0 [facility] Serum or plasma urea nitroge n measurement (mass/volume)Ordered By: [facility] Urea nitrogen [Mass/Vol] 37 mg/dL High 4-19 [facility] Sodium levelOrdered By: Luciana singh [facility] on 11-20-2024 Sodium [Moles/Vol] 138 mmol/L 133-145 [facility] Total proteinOrdered By: Jose cristobal [facility] on 11-20-2024 Protein [Mass/Vol] 5.9 g/dL 5.9-8.4 [facility] L801.2650on 10-24-2024 T3UP 23 Abnormal 24-39 [facility] Comment on above: Order Comment: Test( s) 158711-Yjxejgq T3, Serumwas developed and its performance characteristicsdetermined by [employer]. It has not been cleared or approvedby the Food and Drug Administration. Performed By: #### L 801.2650, L501.73924, L506.1000, L503.6550, L801.1541, L500.4100, L506.0400, L101.9900, L504.2610, L501.9310, L501.5101, L501.9186, L801.1543, L100.0100, L501.9520, L503.6030, L501.9985, L3400.1350, L3250.0100, L3100.7870, L803.0600, L3300.7100, L500.4050, L3300.0100, L3300.6900, L3300.1900, L300.4700, L501.1400 #### [facility] [address] [place], [address] T3 Reverseon 10-24-2024 T3 REVERSE 11.7 ng/dL Normal 9.2-24.1 [facility] Comment on above: Order Comment: Test( s) 455497-Jehqpnj T3, Serumwas developed and its performance characteristicsdetermined by [employer]. It has not been cleared or approvedby the Food and Drug Administration.N Performed By: #### L 801.2650, L501.78320, L506.1000, L503.6550, L801.1541, L500.4100, L506.0400, L101.9900, L504.2610, L501.9310, L501.5101, L501.9186, L801.1543, L100.0100, L501.9520, L503.6030, L501.9985, L3400.1350, L3250.0100, L3100.7870, L803.0600, L3300.7100, L500.4050, L3300.0100, L3300.6900, L3300.1900, L300.4700, L501.1400 #### [facility] [address] [facility] [place], [address] Thyroglobulin w/Anti-TG ABon 10-24-2024 Anti-TG AB < 1.0 Normal 0.0-0.9 [facility] Comment on above: Order Comment: Test( s) 953181-Uikqkwp T3, Serumwas developed and its performance characteristicsdetermined by [employer]. It has not been cleared or approvedby the Food and Drug Administration. Result Comment: Thyr oglobulin Antibody measured by [employer] It should be noted that the presence of thyroglobulin antibodies may not be pathogenic nor diagnostic, especially at very low levels. The assay rubber block layer has found that four percent of individuals without evidence of thyroid disease or autoimmunity will have positive TgAb levels up to 4 IU/mL. Performed By: #### L 801.2650, L501.18741, L506.1000, L503.6550, L801.1541, L500.4100, L506.0400, L101.9900, L504.2610, L501.9310, L501.5101, L501.9186, L801.1543, L100.0100, L501.9520, L503.6030, L501.9985, L3400.1350, L3250.0100, L3100.7870, L803.0600, L3300.7100, L500.4050, L3300.0100, L3300.6900, L3300.1900, L300.4700, L501.1400 #### [facility] [address] [place], [address] THYROGLOB QUANT 3.0 ng/mL Normal 1.5-38.5 [facility] Comment on above: Order Comment: Test( s) 661771-Vhmwsng T3, Serumwas developed and its performance characteristicsdetermined by [employer]. It has not been cleared or approvedby the Food and Drug Administration. Result Comment: Acco rding to the National Academy of Clinical Biochemistry, the reference interval for Thyroglobulin (TG) should be related to euthyroid patients and not for patients who underwent thyroidectomy. TG reference intervals for these patients depend on the residual mass of the thyroid tissue left after surgery. Establishing a post-operative baseline is recommended. The assay limit of quantitation is 0.1 ng/mL Thyroglobulin measured by [employer] Performed By: #### L 801.2650, L501.53486, L506.1000, L503.6550, L801.1541, L500.4100, L506.0400, L101.9900, L504.2610, L501.9310, L501.5101, L501.9186, L801.1543, L100.0100, L501.9520, L503.6030, L501.9985, L3400.1350, L3250.0100, L3100.7870, L803.0600, L3300.7100, L500.4050, L3300.0100, L3300.6900, L3300.1900, L300.4700, L501.1400 #### [facility] [address] [place], [address] Thyroid Peroxidase ABon 07-3 -2024 THYR PEROX AB 20 IU/mL Normal 0-34 [facility] Comment on above: Order Comment: Test( s) 683103-Fkpfmkv T3, Serumwas developed and its performance characteristicsdetermined by [employer]. It has not been cleared or approvedby the Food and Drug Administration. Result Comment: Perf ormed at: [address] [id number] [employer]: Neda Sousa MD, Phone: [phone] Performed at: [address] [id number] [employer]: Ortiz Hayden PhD, Phone: [phone] Performed By: #### L 801.2650, L501.31475, L506.1000, L503.6550, L801.1541, L500.4100, L506.0400, L101.9900, L504.2610, L501.9310, L501.5101, L501.9186, L801.1543, L100.0100, L501.9520, L503.6030, L501.9985, L3400.1350, L3250.0100, L3100.7870, L803.0600, L3300.7100, L500.4050, L3300.0100, L3300.6900, L3300.1900, L300.4700, L501.1400 #### [facility] [address] [place], [address] Thyroid Stim Immunoglobon THY STIM IMMUNO <0.10 Normal 0.00-0.55 [facility] Comment on above: Order Comment: Test( s) 483025-Floeusv T3, Serumwas developed and its performance characteristicsdetermined by [employer]. It has not been cleared or approvedby the Food and Drug Administration. Performed By: #### L 801.2650, L501.47917, L506.1000, L503.6550, L801.1541, L500.4100, L506.0400, L101.9900, L504.2610, L501.9310, L501.5101, L501.9186, L801.1543, L100.0100, L501.9520, L503.6030, L501.9985, L3400.1350, L3250.0100, L3100.7870, L803.0600, L3300.7100, L500.4050, L3300.0100, L3300.6900, L3300.1900, L300.4700, L501.1400 #### [facility] [address] [place], [address] L3410.9992on 10-22-2024 [facility] COM[facility] Normal . [facility] Comment on above: Order Comment: 45064 6VEGF-EDTA PLASMA FRZ Result Comment: Test Ordered: [id number] VEGF, Plasma Test(s) 105193-UXAI, Plasma This test was developed and its performance characteristics determined by [facility]. It has not been cleared or approved by the Food and Drug Administration. VEGF, Plasma 71 pg/mL Reference Range: 0-115 [employer] Quantikine Enzyme Immunoassay (EIA) Values obtained with different assay methods or kits cannot be used interchangeably. Results cannot be interpreted as absolute evidence of the presence or absence of malignant disease. Performed at: [address] [id number] [employer]: Neda Sousa MD, Phone: [phone] Performed at: [address] [id number] [employer]: Ortiz Hayden PhD, Phone: [phone] Performed By: #### L 801.2650, L501.90569, L506.1000, L503.6550, L801.1541, L500.4100, L506.0400, L101.9900, L504.2610, L501.9310, L501.5101, L501.9186, L801.1543, L100.0100, L501.9520, L503.6030, L501.9985, L3400.1350, L3250.0100, L3100.7870, L803.0600, L3300.7100, L500.4050, L3300.0100, L3300.6900, L3300.1900, L300.4700, L501.1400 #### [facility] [address] [place], [address] Bilirubin Test strip Ql (U)O rdered By: Jc Torres on 10-18-2024 Bilirubin Ql (U) Negative Negative [facility] Free T3on 10-18-2024 Free T3 [Mass/Vol] 1.8 pg/mL Low 2.18-3.98 [facility] Comment on above: Performed By: #### L 801.2650, L501.77133, L506.1000, L503.6550, L801.1541, L500.4100, L506.0400, L101.9900, L504.2610, L501.9310, L501.5101, L501.9186, L801.1543, L100.0100, L501.9520, L503.6030, L501.9985, L3400.1350, L3250.0100, L3100.7870, L803.0600, L3300.7100, L500.4050, L3300.0100, L3300.6900, L3300.1900, L300.4700, L501.1400 #### [facility] [address] [facility] [place], [address] Free B0Dotkncf By: Jc frost on 10-18-2024 Free T3 [Mass/Vol] 1.8 pg/mL Low 2.18-3.98 [facility] Ketones Test strip Ql (U)Ord ered By: Jc Torres on 10-18-2024 Ketones Ql (U) Negative Negative [facility] Nitrite Test strip Ql (U)Ord ered By: Jc Torres on 10-18-2024 Nitrite Ql (U) Negative Negative [facility] Protein Test strip Ql (U)Ord ered By: Jc Torres on 10-18-2024 Protein Ql (U) Negative Negative [facility] Serum or plasma thyroperoxid ase antibody assay (units/volume)Ordered By: Jc Torres on 10-18-2024 TPO Ab Qn 20 [IU]/mL 0-34 [facility] Comment on above: Performed at: [facility] [id number] Director: Neda Sousa MD, Phone: [phone] at: [employer] [facility] [id number] Director: Ortiz Hayden PhD, Phone: [phone] T3 RUOrdered By: Jc berry on 10-18-2024 T3RU 23 % Low 24-39 [facility] T4 Free Directon 10-18-2024 T4 FREE DIRECT 0.80 ng/dL Normal 0.76-1.46 [facility] Comment on above: Performed By: #### L 801.2650, L501.94594, L506.1000, L503.6550, L801.1541, L500.4100, L506.0400, L101.9900, L504.2610, L501.9310, L501.5101, L501.9186, L801.1543, L100.0100, L501.9520, L503.6030, L501.9985, L3400.1350, L3250.0100, L3100.7870, L803.0600, L3300.7100, L500.4050, L3300.0100, L3300.6900, L3300.1900, L300.4700, L501.1400 #### [facility] [address] [place] [address]. [place], [address] T4 Total, Thyroxinon 025 T4 [Mass/Vol] 4.7 ug/dL Low 4.8-13.9 [facility] Comment on above: Performed By: #### L 801.2650, L501.32642, L506.1000, L503.6550, L801.1541, L500.4100, L506.0400, L101.9900, L504.2610, L501.9310, L501.5101, L501.9186, L801.1543, L100.0100, L501.9520, L503.6030, L501.9985, L3400.1350, L3250.0100, L3100.7870, L803.0600, L3300.7100, L500.4050, L3300.0100, L3300.6900, L3300.1900, L300.4700, L501.1400 #### [facility] [address] [place], [place], [address] T4 freeOrdered By: Jc frost on 10-18-2024 Free T4 [Mass/Vol] 0.80 ng/dL 0.76-1.46 [facility] TSH DL <= 0.005 mIU/L QnOrde red By: Jc Torres on 10-18-2024 TSH Qn 1.490 uIU/mL 0.300-4.200 [facility] Thyroid Stim Hormone (TSH)on 10-18-2024 TSH 1.490 uIU/mL Normal 0.300-4.200 [facility] Comment on above: Performed By: #### L 801.2650, L501.74909, L506.1000, L503.6550, L801.1541, L500.4100, L506.0400, L101.9900, L504.2610, L501.9310, L501.5101, L501.9186, L801.1543, L100.0100, L501.9520, L503.6030, L501.9985, L3400.1350, L3250.0100, L3100.7870, L803.0600, L3300.7100, L500.4050, L3300.0100, L3300.6900, L3300.1900, L300.4700, L501.1400 #### [facility] [address] [place], [address] Thyroid stimulating immunogl obulins detectionOrdered By: Jc Torres on 10-18-2024 Thyroid stimulating immunoglobulins Ql (S) <0.10 IU/L 0.00-0.55 [facility] ThyroxineOrdered By: Jc Torres on 10-18-2024 T4 [Mass/Vol] 4.7 ug/dL Low 4.8-13.9 [facility] Urinalysis, Routine (Dipstic k)on 10-18-2024 BILIRUBIN URINE Negative Normal Negative [facility] Comment on above: Order Comment: 1 Performed By: #### L 801.2650, L501.78912, L506.1000, L503.6550, L801.1541, L500.4100, L506.0400, L101.9900, L504.2610, L501.9310, L501.5101, L501.9186, L801.1543, L100.0100, L501.9520, L503.6030, L501.9985, L3400.1350, L3250.0100, L3100.7870, L803.0600, L3300.7100, L500.4050, L3300.0100, L3300.6900, L3300.1900, L300.4700, L501.1400 #### [facility] [address] [facility] [place], [address] Clarity (U) Clear Normal Clear [facility] Comment on above: Order Comment: 1 Performed By: #### L 801.2650, L501.38322, L506.1000, L503.6550, L801.1541, L500.4100, L506.0400, L101.9900, L504.2610, L501.9310, L501.5101, L501.9186, L801.1543, L100.0100, L501.9520, L503.6030, L501.9985, L3400.1350, L3250.0100, L3100.7870, L803.0600, L3300.7100, L500.4050, L3300.0100, L3300.6900, L3300.1900, L300.4700, L501.1400 #### [facility] [address] [place], [place], [address] Color (U) Straw Normal Yellow [facility] Comment on above: Order Comment: 1 Performed By: #### L 801.2650, L501.27153, L506.1000, L503.6550, L801.1541, L500.4100, L506.0400, L101.9900, L504.2610, L501.9310, L501.5101, L501.9186, L801.1543, L100.0100, L501.9520, L503.6030, L501.9985, L3400.1350, L3250.0100, L3100.7870, L803.0600, L3300.7100, L500.4050, L3300.0100, L3300.6900, L3300.1900, L300.4700, L501.1400 #### [facility] [address] [facility] [place], [place], [address] GLUCOSE, UR Normal Normal Normal [facility] Comment on above: Order Comment: 1 Performed By: #### L 801.2650, L501.81557, L506.1000, L503.6550, L801.1541, L500.4100, L506.0400, L101.9900, L504.2610, L501.9310, L501.5101, L501.9186, L801.1543, L100.0100, L501.9520, L503.6030, L501.9985, L3400.1350, L3250.0100, L3100.7870, L803.0600, L3300.7100, L500.4050, L3300.0100, L3300.6900, L3300.1900, L300.4700, L501.1400 #### [facility] [address] [place], [place], [address] KETONE UR Negative Normal Negative [facility] Comment on above: Order Comment: 1 Performed By: #### L 801.2650, L501.29782, L506.1000, L503.6550, L801.1541, L500.4100, L506.0400, L101.9900, L504.2610, L501.9310, L501.5101, L501.9186, L801.1543, L100.0100, L501.9520, L503.6030, L501.9985, L3400.1350, L3250.0100, L3100.7870, L803.0600, L3300.7100, L500.4050, L3300.0100, L3300.6900, L3300.1900, L300.4700, L501.1400 #### [facility] [address] [place], [place], [id number] LEUK ESTERASE Negative Normal Negative [facility] Comment on above: Order Comment: 1 Performed By: #### L 801.2650, L501.25257, L506.1000, L503.6550, L801.1541, L500.4100, L506.0400, L101.9900, L504.2610, L501.9310, L501.5101, L501.9186, L801.1543, L100.0100, L501.9520, L503.6030, L501.9985, L3400.1350, L3250.0100, L3100.7870, L803.0600, L3300.7100, L500.4050, L3300.0100, L3300.6900, L3300.1900, L300.4700, L501.1400 #### [facility] [address] [facility]. [place], [place], [id number] Nitrite Ql (U) Negative Normal Negative [facility] Comment on above: Order Comment: 1 Performed By: #### L 801.2650, L501.83905, L506.1000, L503.6550, L801.1541, L500.4100, L506.0400, L101.9900, L504.2610, L501.9310, L501.5101, L501.9186, L801.1543, L100.0100, L501.9520, L503.6030, L501.9985, L3400.1350, L3250.0100, L3100.7870, L803.0600, L3300.7100, L500.4050, L3300.0100, L3300.6900, L3300.1900, L300.4700, L501.1400 #### [facility] [address] [facility]. [place], [place], [id number] OCCULT BLOOD-UR Negative Normal Negative [facility] Comment on above: Order Comment: 1 Performed By: #### L 801.2650, L501.49918, L506.1000, L503.6550, L801.1541, L500.4100, L506.0400, L101.9900, L504.2610, L501.9310, L501.5101, L501.9186, L801.1543, L100.0100, L501.9520, L503.6030, L501.9985, L3400.1350, L3250.0100, L3100.7870, L803.0600, L3300.7100, L500.4050, L3300.0100, L3300.6900, L3300.1900, L300.4700, L501.1400 #### [facility] [address] [place], [place], [address] pH UR 7.0 Normal 5.0 - 8.0 [facility] Comment on above: Order Comment: 1 Performed By: #### L 801.2650, L501.92510, L506.1000, L503.6550, L801.1541, L500.4100, L506.0400, L101.9900, L504.2610, L501.9310, L501.5101, L501.9186, L801.1543, L100.0100, L501.9520, L503.6030, L501.9985, L3400.1350, L3250.0100, L3100.7870, L803.0600, L3300.7100, L500.4050, L3300.0100, L3300.6900, L3300.1900, L300.4700, L501.1400 #### [facility] [address] [facility] [place], [place], [id number] PROT DIPSTX Negative Normal Negative [facility] Comment on above: Order Comment: 1 Performed By: #### L 801.2650, L501.26458, L506.1000, L503.6550, L801.1541, L500.4100, L506.0400, L101.9900, L504.2610, L501.9310, L501.5101, L501.9186, L801.1543, L100.0100, L501.9520, L503.6030, L501.9985, L3400.1350, L3250.0100, L3100.7870, L803.0600, L3300.7100, L500.4050, L3300.0100, L3300.6900, L3300.1900, L300.4700, L501.1400 #### [facility] [address] [facility] [place], [address] SP.GR. DIPSTX 1.015 Normal 1.002-1.030 [facility] Comment on above: Order Comment: 1 Performed By: #### L 801.2650, L501.68734, L506.1000, L503.6550, L801.1541, L500.4100, L506.0400, L101.9900, L504.2610, L501.9310, L501.5101, L501.9186, L801.1543, L100.0100, L501.9520, L503.6030, L501.9985, L3400.1350, L3250.0100, L3100.7870, L803.0600, L3300.7100, L500.4050, L3300.0100, L3300.6900, L3300.1900, L300.4700, L501.1400 #### [facility] [address] [facility] [place], [address] UROBILI Normal Normal Normal [facility] Comment on above: Order Comment: 1 Performed By: #### L 801.2650, L501.02871, L506.1000, L503.6550, L801.1541, L500.4100, L506.0400, L101.9900, L504.2610, L501.9310, L501.5101, L501.9186, L801.1543, L100.0100, L501.9520, L503.6030, L501.9985, L3400.1350, L3250.0100, L3100.7870, L803.0600, L3300.7100, L500.4050, L3300.0100, L3300.6900, L3300.1900, L300.4700, L501.1400 #### [facility] [address] [facility] [place], [address] Urine clarityOrdered By: Lissy Torres on 10-18-2024 Clarity (U) Clear Clear [facility] Urine color determinationOrd ered By: Jc Torres on 10-18-2024 Color (U) Straw Yellow [facility] Urine glucose detectionOrder ed By: Jc Torres on 10-18-2024 Glucose Ql (U) Normal mg/dl Normal [facility] Urine leukocyte esterase det ection by dipstickOrdered By: Jc Torres on 10-18-2024 Leukocyte esterase Test strip Ql (U) Negative Negative [facility] Urine pHOrdered By: Jc Torres on 10-18-2024 pH (U) 7.0 [pH] 5.0 - 8.0 [facility] Urine specific gravity measu rementOrdered By: Jc Torres on 10-18-2024 Specific gravity (U) [Rel density] 1.015 1.002-1.030 [facility] Urine urobilinogen measureme ntOrdered By: Jc Cadenaey on 10-18-2024 Urobilinogen Ql (U) Normal mg/dl Normal [facility] L3410.9992on 10-01-2024 [facility] Misc. COMMENT Normal . [facility] Comment on above: Order Comment: SER F [id number] Result Comment: Test Ordered: [id number] VEGF, Serum Test(s) [id number], Serum This test was developed and its performance characteristics determined by [facility]. It has not been cleared or approved by the Food and Drug Administration. VEGF, Serum 424 pg/mL Reference Range: 62-707 [employer] Quantikine Enzyme Immunoassay (EIA) Values obtained with different assay methods or kits cannot be used interchangeably. Results cannot be interpreted as absolute evidence of the presence or absence of malignant disease. Performed at: [address] [id number] [employer]: Neda Sousa MD, Phone: [phone] Performed at: [address] [id number] [employer]: Ortiz Hayden PhD, Phone: [phone] Performed By: #### L 801.2650, L501.21378, L506.1000, L503.6550, L801.1541, L500.4100, L506.0400, L101.9900, L504.2610, L501.9310, L501.5101, L501.9186, L801.1543, L100.0100, L501.9520, L503.6030, L501.9985, L3400.1350, L3250.0100, L3100.7870, L803.0600, L3300.7100, L500.4050, L3300.0100, L3300.6900, L3300.1900, L300.4700, L501.1400 #### [facility] [address] [facility]. [place], [place], [id number] CRP, High Sensitivity [id number] on 09-28-2024 CRP, HIGH SENS 0.36 mg/L Normal 0.00-3.00 [facility] Comment on above: Result Comment: Rela tive Risk for Future Cardiovascular Event Low <1.00 Average 1.00 - 3.00 High >3.00 Performed By: #### L 801.2650, L501.27207, L506.1000, L503.6550, L801.1541, L500.4100, L506.0400, L101.9900, L504.2610, L501.9310, L501.5101, L501.9186, L801.1543, L100.0100, L501.9520, L503.6030, L501.9985, L3400.1350, L3250.0100, L3100.7870, L803.0600, L3300.7100, L500.4050, L3300.0100, L3300.6900, L3300.1900, L300.4700, L501.1400 #### [facility] [address] [facility] [place], [place], [id number] L501.5101on 09-28-2024 GGTP 7 IU/L Normal 0-60 [facility] Comment on above: Result Comment: Perf ormed at: [facility] [id number] [employer]: Ortiz Hayden PhD, Phone: [phone] Performed By: #### L 801.2650, L501.70982, L506.1000, L503.6550, L801.1541, L500.4100, L506.0400, L101.9900, L504.2610, L501.9310, L501.5101, L501.9186, L801.1543, L100.0100, L501.9520, L503.6030, L501.9985, L3400.1350, L3250.0100, L3100.7870, L803.0600, L3300.7100, L500.4050, L3300.0100, L3300.6900, L3300.1900, L300.4700, L501.1400 #### [facility] [address] [facility] [place], [place], [id number] L803.0600on 09-28-2024 HOMOCYSTEINE 10.2 umol/L Normal 0.0-14.5 [facility] Comment on above: Result Comment: Perf ormed at: - [facility] [address] [id number] [employer]: Ortiz Hayden PhD, Phone: [phone] Performed By: #### L 801.2650, L501.42463, L506.1000, L503.6550, L801.1541, L500.4100, L506.0400, L101.9900, L504.2610, L501.9310, L501.5101, L501.9186, L801.1543, L100.0100, L501.9520, L503.6030, L501.9985, L3400.1350, L3250.0100, L3100.7870, L803.0600, L3300.7100, L500.4050, L3300.0100, L3300.6900, L3300.1900, L300.4700, L501.1400 #### [facility] [address] [facility] [place], [address] Absolute lymphocyte countOrd ered By: Jc Torres on 09-27-2024 Lymphocytes Auto (Unsp spec) [#/Vol] 0.83 10*3/uL 0.83-4.51 [facility] Absolute neutrophil countOrd ered By: Jc Torres on 09-27-2024 Neutrophils (Bld) [#/Vol] 3.1 10*3/uL 2.0-7.7 [facility] Anion gap in Serum or Plasma Ordered By: Jc Torres on 09-27-2024 Anion gap [Moles/Vol] 9 mmol/L 5-15 [facility] Automated lymphocyte count a s percentage of total leukocytesOrdered By: Jc Torres on 09-27-2024 Lymphocytes/100 WBC Auto (Unsp spec) 18.3 % Low 19-41 [facility] BUN/creatinine ratioOrdered By: Jc Torres on 09-27-2024 Urea nitrogen/Creatinine [Mass ratio] 69.5 mg/mg High 10-20 [facility] Basophil percentageOrdered B y: Jc Torres on 09-27-2024 Basophils/100 WBC (Bld) 0.4 % 0-1 [facility] Bilirubin, totalOrdered By: Jc Torres on 09-27-2024 Bilirubin [Mass/Vol] mg/dL 0.00-1.30 [facility] Blood manual differential co mment interpretation (narrative result)Ordered By: Jc Torres on 09-27-2024 Manual differential comment Shayne (Bld) [Interp] SCANNED [facility] C-reactive protein measureme nt by high sensitivity methodOrdered By: Jc Torres on 09-27-2024 C-reactive protein measurement by high sensitivity method 0.36 mg/L 0.00-3.00 [facility] Comment on above: Relative Risk for Fu ture Cardiovascular Event Low <1.00 Average 1.00 - 3.00 High >3.00 CBC W/Diff, Automatedon Anisocytosis Ql (Bld) 2+ Normal [facility] Comment on above: Performed By: #### L 801.2650, L501.76210, L506.1000, L503.6550, L801.1541, L500.4100, L506.0400, L101.9900, L504.2610, L501.9310, L501.5101, L501.9186, L801.1543, L100.0100, L501.9520, L503.6030, L501.9985, L3400.1350, L3250.0100, L3100.7870, L803.0600, L3300.7100, L500.4050, L3300.0100, L3300.6900, L3300.1900, L300.4700, L501.1400 #### [facility] [address] [place], [place], [id number] SMEAR COMMENT SCANNED Normal [facility] Comment on above: Performed By: #### L 801.2650, L501.28948, L506.1000, L503.6550, L801.1541, L500.4100, L506.0400, L101.9900, L504.2610, L501.9310, L501.5101, L501.9186, L801.1543, L100.0100, L501.9520, L503.6030, L501.9985, L3400.1350, L3250.0100, L3100.7870, L803.0600, L3300.7100, L500.4050, L3300.0100, L3300.6900, L3300.1900, L300.4700, L501.1400 #### [facility] [address] [facility] [place], [place], [id number] Calculated very low density lipoprotein (VLDL) cholesterol measurementOrdered By: Jc Torres on 09-27-2024 Calculated very low density lipoprotein (VLDL) cholesterol measurement 5 mg/dL 5-40 [facility] Carbon dioxide, total [Moles /volume] in Central venous bloodOrdered By: Jc Torres on 09-27-2024 CO2 [Moles/Vol] 27.0 mmol/L 21.0-32.0 [facility] Chloride assayOrdered By: Bart Torres on 09-27-2024 Chloride [Moles/Vol] 101 mmol/L 98-108 [facility] Comprehensive Metabolic Prof ilon 09-27-2024 Albumin [Mass/Vol] 3.6 g/dL Normal 3.5-5.0 [facility] Comment on above: Performed By: #### L 801.2650, L501.26387, L506.1000, L503.6550, L801.1541, L500.4100, L506.0400, L101.9900, L504.2610, L501.9310, L501.5101, L501.9186, L801.1543, L100.0100, L501.9520, L503.6030, L501.9985, L3400.1350, L3250.0100, L3100.7870, L803.0600, L3300.7100, L500.4050, L3300.0100, L3300.6900, L3300.1900, L300.4700, L501.1400 #### [facility] [address] [facility] [place], [address] Albumin/Globulin [Mass ratio] 1.8 {ratio} Normal 0.9-2.4 [facility] Comment on above: Performed By: #### L 801.2650, L501.11941, L506.1000, L503.6550, L801.1541, L500.4100, L506.0400, L101.9900, L504.2610, L501.9310, L501.5101, L501.9186, L801.1543, L100.0100, L501.9520, L503.6030, L501.9985, L3400.1350, L3250.0100, L3100.7870, L803.0600, L3300.7100, L500.4050, L3300.0100, L3300.6900, L3300.1900, L300.4700, L501.1400 #### [facility] [address] [facility] [place], [address] ALK PHOS 68 U/L Normal 35-104 [facility] Comment on above: Performed By: #### L 801.2650, L501.58341, L506.1000, L503.6550, L801.1541, L500.4100, L506.0400, L101.9900, L504.2610, L501.9310, L501.5101, L501.9186, L801.1543, L100.0100, L501.9520, L503.6030, L501.9985, L3400.1350, L3250.0100, L3100.7870, L803.0600, L3300.7100, L500.4050, L3300.0100, L3300.6900, L3300.1900, L300.4700, L501.1400 #### [facility] [address] [facility] [place], [place], [address] ALT [Catalytic activity/Vol] 29 U/L Normal <=34 [facility] Comment on above: Performed By: #### L 801.2650, L501.80786, L506.1000, L503.6550, L801.1541, L500.4100, L506.0400, L101.9900, L504.2610, L501.9310, L501.5101, L501.9186, L801.1543, L100.0100, L501.9520, L503.6030, L501.9985, L3400.1350, L3250.0100, L3100.7870, L803.0600, L3300.7100, L500.4050, L3300.0100, L3300.6900, L3300.1900, L300.4700, L501.1400 #### [facility] [address] [facility]. [place], [place], [address] AST [Catalytic activity/Vol] 16 U/L Normal <=31 [facility] Comment on above: Performed By: #### L 801.2650, L501.83947, L506.1000, L503.6550, L801.1541, L500.4100, L506.0400, L101.9900, L504.2610, L501.9310, L501.5101, L501.9186, L801.1543, L100.0100, L501.9520, L503.6030, L501.9985, L3400.1350, L3250.0100, L3100.7870, L803.0600, L3300.7100, L500.4050, L3300.0100, L3300.6900, L3300.1900, L300.4700, L501.1400 #### [facility] [address] [facility] [place], [place], [id number] BUN/CRE 69.5 RATIO High 10-20 [facility] Comment on above: Performed By: #### L 801.2650, L501.94584, L506.1000, L503.6550, L801.1541, L500.4100, L506.0400, L101.9900, L504.2610, L501.9310, L501.5101, L501.9186, L801.1543, L100.0100, L501.9520, L503.6030, L501.9985, L3400.1350, L3250.0100, L3100.7870, L803.0600, L3300.7100, L500.4050, L3300.0100, L3300.6900, L3300.1900, L300.4700, L501.1400 #### [facility] [address] [facility] [place], [place], [address] Calcium [Mass/Vol] 9.4 mg/dL Normal 7.6-11.0 [facility] Comment on above: Performed By: #### L 801.2650, L501.60559, L506.1000, L503.6550, L801.1541, L500.4100, L506.0400, L101.9900, L504.2610, L501.9310, L501.5101, L501.9186, L801.1543, L100.0100, L501.9520, L503.6030, L501.9985, L3400.1350, L3250.0100, L3100.7870, L803.0600, L3300.7100, L500.4050, L3300.0100, L3300.6900, L3300.1900, L300.4700, L501.1400 #### [facility] [address] [facility] [place], [place], [id number] Chloride [Moles/Vol] 101 mmol/L Normal 98-108 [facility] Comment on above: Performed By: #### L 801.2650, L501.17266, L506.1000, L503.6550, L801.1541, L500.4100, L506.0400, L101.9900, L504.2610, L501.9310, L501.5101, L501.9186, L801.1543, L100.0100, L501.9520, L503.6030, L501.9985, L3400.1350, L3250.0100, L3100.7870, L803.0600, L3300.7100, L500.4050, L3300.0100, L3300.6900, L3300.1900, L300.4700, L501.1400 #### [facility] [address] [facility] [place], [place], [address] CO2 [Moles/Vol] 27.0 mmol/L Normal 21.0-32.0 [facility] Comment on above: Performed By: #### L 801.2650, L501.77986, L506.1000, L503.6550, L801.1541, L500.4100, L506.0400, L101.9900, L504.2610, L501.9310, L501.5101, L501.9186, L801.1543, L100.0100, L501.9520, L503.6030, L501.9985, L3400.1350, L3250.0100, L3100.7870, L803.0600, L3300.7100, L500.4050, L3300.0100, L3300.6900, L3300.1900, L300.4700, L501.1400 #### [facility] [address] [place], [place], [address] Creatinine [Mass/Vol] 0.51 mg/dL Low 0.70-1.20 [facility] Comment on above: Performed By: #### L 801.2650, L501.61324, L506.1000, L503.6550, L801.1541, L500.4100, L506.0400, L101.9900, L504.2610, L501.9310, L501.5101, L501.9186, L801.1543, L100.0100, L501.9520, L503.6030, L501.9985, L3400.1350, L3250.0100, L3100.7870, L803.0600, L3300.7100, L500.4050, L3300.0100, L3300.6900, L3300.1900, L300.4700, L501.1400 #### [facility] [address] [facility] [place], [address] GAP 9 Normal 5-15 [facility] Comment on above: Performed By: #### L 801.2650, L501.19588, L506.1000, L503.6550, L801.1541, L500.4100, L506.0400, L101.9900, L504.2610, L501.9310, L501.5101, L501.9186, L801.1543, L100.0100, L501.9520, L503.6030, L501.9985, L3400.1350, L3250.0100, L3100.7870, L803.0600, L3300.7100, L500.4050, L3300.0100, L3300.6900, L3300.1900, L300.4700, L501.1400 #### [facility] [address] [place], [address] GFR/1.73 sq M.predicted among non-blacks MDRD (S/P/Bld) [Vol rate/Area] 107 mL/min/{1.73_m2} Normal >60 [facility] Comment on above: Result Comment: mL/m in/1.73m2 CKD-EPI Creatinine Equation (2020) Performed By: #### L 801.2650, L501.17827, L506.1000, L503.6550, L801.1541, L500.4100, L506.0400, L101.9900, L504.2610, L501.9310, L501.5101, L501.9186, L801.1543, L100.0100, L501.9520, L503.6030, L501.9985, L3400.1350, L3250.0100, L3100.7870, L803.0600, L3300.7100, L500.4050, L3300.0100, L3300.6900, L3300.1900, L300.4700, L501.1400 #### [facility] [address] [place], [address] Globulin (S) [Mass/Vol] 2.0 g/dL Low 2.2-4.2 [facility] Comment on above: Performed By: #### L 801.2650, L501.41000, L506.1000, L503.6550, L801.1541, L500.4100, L506.0400, L101.9900, L504.2610, L501.9310, L501.5101, L501.9186, L801.1543, L100.0100, L501.9520, L503.6030, L501.9985, L3400.1350, L3250.0100, L3100.7870, L803.0600, L3300.7100, L500.4050, L3300.0100, L3300.6900, L3300.1900, L300.4700, L501.1400 #### [facility] [address] [place], [place], [id number] (044) Glucose [Mass/Vol] 99 mg/dL Normal 70-99 [facility] Comment on above: Performed By: #### L 801.2650, L501.70741, L506.1000, L503.6550, L801.1541, L500.4100, L506.0400, L101.9900, L504.2610, L501.9310, L501.5101, L501.9186, L801.1543, L100.0100, L501.9520, L503.6030, L501.9985, L3400.1350, L3250.0100, L3100.7870, L803.0600, L3300.7100, L500.4050, L3300.0100, L3300.6900, L3300.1900, L300.4700, L501.1400 #### [facility] [address] [place], [place], [id number] (884) Potassium [Moles/Vol] 3.9 mmol/L Normal 3.3-5.1 [facility] Comment on above: Performed By: #### L 801.2650, L501.91259, L506.1000, L503.6550, L801.1541, L500.4100, L506.0400, L101.9900, L504.2610, L501.9310, L501.5101, L501.9186, L801.1543, L100.0100, L501.9520, L503.6030, L501.9985, L3400.1350, L3250.0100, L3100.7870, L803.0600, L3300.7100, L500.4050, L3300.0100, L3300.6900, L3300.1900, L300.4700, L501.1400 #### [facility] [address] [place], [place], [id number] (203) Sodium [Moles/Vol] 137 mmol/L Normal 133-145 [facility] Comment on above: Performed By: #### L 801.2650, L501.40340, L506.1000, L503.6550, L801.1541, L500.4100, L506.0400, L101.9900, L504.2610, L501.9310, L501.5101, L501.9186, L801.1543, L100.0100, L501.9520, L503.6030, L501.9985, L3400.1350, L3250.0100, L3100.7870, L803.0600, L3300.7100, L500.4050, L3300.0100, L3300.6900, L3300.1900, L300.4700, L501.1400 #### [facility] [address] [facility] [place], [address] T BILI < 0.15 Normal 0.00-1.30 [facility] Comment on above: Performed By: #### L 801.2650, L501.92360, L506.1000, L503.6550, L801.1541, L500.4100, L506.0400, L101.9900, L504.2610, L501.9310, L501.5101, L501.9186, L801.1543, L100.0100, L501.9520, L503.6030, L501.9985, L3400.1350, L3250.0100, L3100.7870, L803.0600, L3300.7100, L500.4050, L3300.0100, L3300.6900, L3300.1900, L300.4700, L501.1400 #### [facility] [address] [facility] [place], [address] T PROT 5.6 g/dL Low 5.9-8.4 [facility] Comment on above: Performed By: #### L 801.2650, L501.66946, L506.1000, L503.6550, L801.1541, L500.4100, L506.0400, L101.9900, L504.2610, L501.9310, L501.5101, L501.9186, L801.1543, L100.0100, L501.9520, L503.6030, L501.9985, L3400.1350, L3250.0100, L3100.7870, L803.0600, L3300.7100, L500.4050, L3300.0100, L3300.6900, L3300.1900, L300.4700, L501.1400 #### [facility] [address] [place], [address] Urea nitrogen [Mass/Vol] 36 mg/dL High 4-19 [facility] Comment on above: Performed By: #### L 801.2650, L501.23490, L506.1000, L503.6550, L801.1541, L500.4100, L506.0400, L101.9900, L504.2610, L501.9310, L501.5101, L501.9186, L801.1543, L100.0100, L501.9520, L503.6030, L501.9985, L3400.1350, L3250.0100, L3100.7870, L803.0600, L3300.7100, L500.4050, L3300.0100, L3300.6900, L3300.1900, L300.4700, L501.1400 #### [facility] [address] [place], [address] Eosinophil percentageOrdered By: Jc Torres on 09-27-2024 Eosinophils/100 WBC (Bld) 1.1 % 0-5 [facility] Erythrocyte Sed Rateon 09-27 SED RATE 6 mm/hr Normal 0-30 [facility] Comment on above: Performed By: #### L 801.2650, L501.15125, L506.1000, L503.6550, L801.1541, L500.4100, L506.0400, L101.9900, L504.2610, L501.9310, L501.5101, L501.9186, L801.1543, L100.0100, L501.9520, L503.6030, L501.9985, L3400.1350, L3250.0100, L3100.7870, L803.0600, L3300.7100, L500.4050, L3300.0100, L3300.6900, L3300.1900, L300.4700, L501.1400 #### [facility] [address] [place], [address] Erythrocyte distribution wid th ratioOrdered By: Jc Torres on 09-27-2024 Erythrocyte distribution width (RBC) [Ratio] 26.1 % High 11.6-14.6 [facility] Erythrocyte distribution wid th standard deviationOrdered By: Jc Torres on 09-27-2024 Erythrocyte distribution width (RBC) [Ratio] 80.5 fl High 35.1-43.9 [facility] Erythrocyte sedimentation ra teOrdered By: Jc Torres on 09-27-2024 ESR (Bld) [Velocity] 6 mm/h 0-30 [facility] Ferritinon 09-27-2024 Ferritin [Mass/Vol] 10 ng/mL Low 22-378 [facility] Comment on above: Performed By: #### L 801.2650, L501.63365, L506.1000, L503.6550, L801.1541, L500.4100, L506.0400, L101.9900, L504.2610, L501.9310, L501.5101, L501.9186, L801.1543, L100.0100, L501.9520, L503.6030, L501.9985, L3400.1350, L3250.0100, L3100.7870, L803.0600, L3300.7100, L500.4050, L3300.0100, L3300.6900, L3300.1900, L300.4700, L501.1400 #### [facility] [address] [facility] [place], [address] Fibrinogenon 09-27-2024 FIBRINOGEN 359 mg/dl Normal 203-444 [facility] Comment on above: Performed By: #### L 801.2650, L501.67601, L506.1000, L503.6550, L801.1541, L500.4100, L506.0400, L101.9900, L504.2610, L501.9310, L501.5101, L501.9186, L801.1543, L100.0100, L501.9520, L503.6030, L501.9985, L3400.1350, L3250.0100, L3100.7870, L803.0600, L3300.7100, L500.4050, L3300.0100, L3300.6900, L3300.1900, L300.4700, L501.1400 #### [facility] [address] [facility] [place], [address] Gamma glutamyl transferase ( GGT) measurementOrdered By: Jc Torres on 09-27-2024 Amylase [Catalytic activity/Vol] 7 U/L 0-60 [facility] Comment on above: Performed at: [address] [id number] Director: Ortiz Hayden PhD, Phone: [phone] Glomerular filtration rate ( GFR) estimation/1.73 sq m using serum, plasma, or whole bOrdered By: cJ Torres on 09-27-2024 GFR/1.73 sq M.predicted among non-blacks MDRD (S/P/Bld) [Vol rate/Area] 107 mL/min/{1.73_m2} >60 [facility] Comment on above: mL/min/1.73m2 CKD-EP I Creatinine Equation (2020) Hematocrit Auto (Bld) [Volum e fraction]Ordered By: Jc Torres on 09-27-2024 Hematocrit (Bld) [Volume fraction] 27.4 % Low 37-47 [facility] Hemoglobin measurementOrdere d By: Jcmayra Torres on 09-27-2024 Hemoglobin (Bld) [Mass/Vol] 9.2 g/dL Low 12.0-15.0 [facility] Immature granulocytes/100 WB C Auto (Bld)Ordered By: Jc Torres on 09-27-2024 Immature granulocytes/100 WBC (Bld) 0.200 % 0.0-0.9 [facility] Comment on above: IG% - Immature Granu locytes (promyelocytes, myelocytes and metamyelocytes) > 1% indicates that a LEFT SHIFT is Present. Iron measurement (mass/mass) Ordered By: Jc Torres on 09-27-2024 Iron (Unsp spec) [Mass/Mass] 21 ug/dL Low 50-170 [facility] Iron+Iron Binding Capacityon 09-27-2024 Iron [Mass/Vol] 21 ug/dL Low 50-170 [facility] Comment on above: Performed By: #### L 801.2650, L501.40889, L506.1000, L503.6550, L801.1541, L500.4100, L506.0400, L101.9900, L504.2610, L501.9310, L501.5101, L501.9186, L801.1543, L100.0100, L501.9520, L503.6030, L501.9985, L3400.1350, L3250.0100, L3100.7870, L803.0600, L3300.7100, L500.4050, L3300.0100, L3300.6900, L3300.1900, L300.4700, L501.1400 #### [facility] [address] [place], [address] IRON SATURATION 5.0 Low 13-59 [facility] Comment on above: Performed By: #### L 801.2650, L501.26653, L506.1000, L503.6550, L801.1541, L500.4100, L506.0400, L101.9900, L504.2610, L501.9310, L501.5101, L501.9186, L801.1543, L100.0100, L501.9520, L503.6030, L501.9985, L3400.1350, L3250.0100, L3100.7870, L803.0600, L3300.7100, L500.4050, L3300.0100, L3300.6900, L3300.1900, L300.4700, L501.1400 #### [facility] [address] [facility]. [place], [place], [id number] (964) TIBC 374 ug/dL Normal 250-450 [facility] Comment on above: Performed By: #### L 801.2650, L501.37603, L506.1000, L503.6550, L801.1541, L500.4100, L506.0400, L101.9900, L504.2610, L501.9310, L501.5101, L501.9186, L801.1543, L100.0100, L501.9520, L503.6030, L501.9985, L3400.1350, L3250.0100, L3100.7870, L803.0600, L3300.7100, L500.4050, L3300.0100, L3300.6900, L3300.1900, L300.4700, L501.1400 #### [facility] [address] [facility]. [place], [place], [id number] UIBC 353 ug/dL Normal 228-428 [facility] Comment on above: Performed By: #### L 801.2650, L501.62683, L506.1000, L503.6550, L801.1541, L500.4100, L506.0400, L101.9900, L504.2610, L501.9310, L501.5101, L501.9186, L801.1543, L100.0100, L501.9520, L503.6030, L501.9985, L3400.1350, L3250.0100, L3100.7870, L803.0600, L3300.7100, L500.4050, L3300.0100, L3300.6900, L3300.1900, L300.4700, L501.1400 #### [facility] [address] [facility] [place], [address] LDHon 09-27-2024 LDH 166 U/L Normal 84-246 [facility] Comment on above: Order Comment: 1 Performed By: #### L 801.2650, L501.38986, L506.1000, L503.6550, L801.1541, L500.4100, L506.0400, L101.9900, L504.2610, L501.9310, L501.5101, L501.9186, L801.1543, L100.0100, L501.9520, L503.6030, L501.9985, L3400.1350, L3250.0100, L3100.7870, L803.0600, L3300.7100, L500.4050, L3300.0100, L3300.6900, L3300.1900, L300.4700, L501.1400 #### [facility] [address] [facility]. [place], [place], [id number] LDL calc ser/plasOrdered By: Jc Torres on 09-27-2024 Cholesterol in LDL [Mass/Vol] 130 mg/dL [facility] Comment on above: Aehhpirjkr=086-446 m g/dL & Higher Xeiu=215 mg/dL or greater Laboratory - Chemistry and C hemistry - challengeOrdered By: Jc Torres on 09-27-2024 AST [Catalytic activity/Vol] 16 U/L <32 [facility] - Hematology and Cell countsOrdered By: Jc Torres on 09-27-2024 Anisocytosis Ql (Bld) 2+ [facility] Lactate dehydrogenase (LDH) measurementOrdered By: Jc Torres on 09-27-2024 LDH [Catalytic activity/Vol] 166 U/L 84-246 [facility] Lipid Profileon 09-27-2024 CHOL:HDL 2.68 Normal [facility] Comment on above: Performed By: #### L 801.2650, L501.22453, L506.1000, L503.6550, L801.1541, L500.4100, L506.0400, L101.9900, L504.2610, L501.9310, L501.5101, L501.9186, L801.1543, L100.0100, L501.9520, L503.6030, L501.9985, L3400.1350, L3250.0100, L3100.7870, L803.0600, L3300.7100, L500.4050, L3300.0100, L3300.6900, L3300.1900, L300.4700, L501.1400 #### [facility] [address] [place], [address] Cholesterol [Mass/Vol] 215 mg/dL High <=[address] [facility] Comment on above: Result Comment: Chol esterol level, Desirable <200 mg/dL Borderline high cholesterol 200-239 mg/dL High cholesterol >=240 mg/dL Recommendations of the NCEP Adult Treatment Panel for the following risk-cutoff thresholds for the [place] population. Performed By: #### L 801.2650, L501.41862, L506.1000, L503.6550, L801.1541, L500.4100, L506.0400, L101.9900, L504.2610, L501.9310, L501.5101, L501.9186, L801.1543, L100.0100, L501.9520, L503.6030, L501.9985, L3400.1350, L3250.0100, L3100.7870, L803.0600, L3300.7100, L500.4050, L3300.0100, L3300.6900, L3300.1900, L300.4700, L501.1400 #### [facility] [address] [place], [address] Cholesterol in HDL [Mass/Vol] 80 mg/dL Normal [facility] Comment on above: Result Comment: Anne onal Cholesterol Education Program (NCEP) guidelines: <40 mg/dL: Low HDL-cholesterol (major risk factor for CHD) >= 60 mg/dL: High HDL-cholesterol (negative risk factor for CHD) HDL-cholesterol is affected by a number of factors, e.g. smoking, exercise, hormones, sex and age. Performed By: #### L 801.2650, L501.36367, L506.1000, L503.6550, L801.1541, L500.4100, L506.0400, L101.9900, L504.2610, L501.9310, L501.5101, L501.9186, L801.1543, L100.0100, L501.9520, L503.6030, L501.9985, L3400.1350, L3250.0100, L3100.7870, L803.0600, L3300.7100, L500.4050, L3300.0100, L3300.6900, L3300.1900, L300.4700, L501.1400 #### [facility] [address] [place], [place], [id number] Cholesterol in LDL [Mass/Vol] 130 mg/dL Normal [facility] Comment on above: Result Comment: Bord snwzhb=244-394 mg/dL Higher Ovje=294 mg/dL or greater Performed By: #### L 801.2650, L501.25712, L506.1000, L503.6550, L801.1541, L500.4100, L506.0400, L101.9900, L504.2610, L501.9310, L501.5101, L501.9186, L801.1543, L100.0100, L501.9520, L503.6030, L501.9985, L3400.1350, L3250.0100, L3100.7870, L803.0600, L3300.7100, L500.4050, L3300.0100, L3300.6900, L3300.1900, L300.4700, L501.1400 #### [facility] [address] [facility] [place], [address] Cholesterol in VLDL [Mass/Vol] 5 mg/dL Normal 5-40 [facility] Comment on above: Performed By: #### L 801.2650, L501.80055, L506.1000, L503.6550, L801.1541, L500.4100, L506.0400, L101.9900, L504.2610, L501.9310, L501.5101, L501.9186, L801.1543, L100.0100, L501.9520, L503.6030, L501.9985, L3400.1350, L3250.0100, L3100.7870, L803.0600, L3300.7100, L500.4050, L3300.0100, L3300.6900, L3300.1900, L300.4700, L501.1400 #### [facility] [address] [facility]. [place], [place], [id number] Triglyceride [Mass/Vol] 23 mg/dL Normal [facility] Comment on above: Result Comment: The drugs N-Acetylcysteine and Metamizole may falsely depress this assay. Normal range: <150 mg/dL Borderline High: 150-199 mg/dL High: 200-499 mg/dL Very High: >500 mg/dL Performed By: #### L 801.2650, L501.74637, L506.1000, L503.6550, L801.1541, L500.4100, L506.0400, L101.9900, L504.2610, L501.9310, L501.5101, L501.9186, L801.1543, L100.0100, L501.9520, L503.6030, L501.9985, L3400.1350, L3250.0100, L3100.7870, L803.0600, L3300.7100, L500.4050, L3300.0100, L3300.6900, L3300.1900, L300.4700, L501.1400 #### [facility] [address] [place], [place], [id number] MCV (mean corpuscular volume ) determinationOrdered By: Jc Torres on 09-27-2024 MCV (RBC) [Entitic vol] 86.2 fL 81-99 [facility] Mean corpuscular hemoglobin (MCH) determinationOrdered By: Jc Torres on 09-27-2024 MCH (RBC) [Entitic mass] 28.9 pg 27.0-32.0 [facility] Mean corpuscular hemoglobin concentration (MCHC) determinationOrdered By: Jc Torres on 09-27-2024 MCHC (RBC) [Mass/Vol] 33.6 g/dL 32-36 [facility] Mean platelet volume determi nationOrdered By: Jc Torres on 09-27-2024 Platelet mean volume (Bld) [Entitic vol] 11.1 fL 6.2-12.0 [facility] Monocyte percentageOrdered B y: Jc Torres on 09-27-2024 Monocytes/100 WBC (Bld) 11.3 % High 0-10 [facility] Neutrophil percentageOrdered By: Jc Torres on 09-27-2024 Neutrophils/100 WBC (Bld) 68.7 % 47-70 [facility] No Panel InformationOrdered By: Jc Torres on 09-27-2024 Unsaturated Iron Binding Capacity 353 ug/dL 228-428 [facility] Nucleated red blood cell per centageOrdered By: Jc Torres on 09-27-2024 Nucleated RBC/100 WBC (Bld) [Ratio] 0 % 0-5 [facility] Platelet countOrdered By: Bart Torers on 09-27-2024 Platelets (Bld) [#/Vol] 280 10*3/uL 150-450 [facility] Potassium measurement (mass/ volume)Ordered By: Jc Torres on 09-27-2024 Potassium (Unsp spec) [Mass/Vol] 3.9 mmol/L 3.3-5.1 [facility] RBC Auto (Bld) [#/Vol]Ordere d By: Jc Torres on 09-27-2024 RBC (Bld) [#/Vol] 3.18 10*6/uL Low 4.2-5.4 [facility] Screening total cholesterol/ high density lipoprotein (HDL) cholesterol ratioOrdered By: Jc Torres on 09-27-2024 Cholesterol.total/Choles terol in HDL [Mass ratio] 2.68 {ratio} [facility] Serum creatinine measurement (mass/volume)Ordered By: Jc Torres on 09-27-2024 Creatinine [Mass/Vol] 0.51 mg/dL Low 0.70-1.20 [facility] Serum globulin measurementOr dered By: Jc Torres on 09-27-2024 Globulin (S) [Mass/Vol] 2.0 g/dL Low 2.2-4.2 [facility] Serum glucose measurement (m ass/volume)Ordered By: Jc Torres on 09-27-2024 Glucose [Mass/Vol] 99 mg/dL 70-99 [facility] Serum or plasma alanine silva otransferase (ALT) measurementOrdered By: Jc Torres on 09-27-2024 ALT [Catalytic activity/Vol] 29 U/L <35 [facility] Serum or plasma albumin vickie urement (mass/volume)Ordered By: Jc Torres on 09-27-2024 Albumin [Mass/Vol] 3.6 g/dL 3.5-5.0 [facility] Serum or plasma albumin/glob ulin mass ratioOrdered By: Jc Torres on 09-27-2024 Albumin/Globulin [Mass ratio] 1.8 {ratio} 0.9-2.4 [facility] Serum or plasma alkaline barrett sphatase measurementOrdered By: Jc Torres on 09-27-2024 ALP [Catalytic activity/Vol] 68 U/L 35-104 [facility] Serum or plasma calcium vickie urement (mass/volume)Ordered By: Jc Torres on 09-27-2024 Calcium [Mass/Vol] 9.4 mg/dL 7.6-11.0 [facility] Serum or plasma cholesterol in HDL measurement (mass/volume)Ordered By: Jc Torres on 09-27-2024 Cholesterol in HDL [Mass/Vol] 80 mg/dL >40 [facility] Comment on above: National Cholesterol Education Program (NCEP) guidelines:<40 mg/dL: Low HDL-cholesterol (major risk factor for CHD)>= 60 mg/dL: High HDL-cholesterol (negative risk factor for CHD)HDL-cholesterol is affected by a number of factors, e.g. smoking, exercise, hormones, sex and age. Serum or plasma cholesterol measurement (mass/volume)Ordered By: Jc Torres on 09-27-2024 Cholesterol [Mass/Vol] 215 mg/dL High <[address] [facility] Comment on above: Cholesterol level, D esirable <200 mg/dLBorderline high cholesterol 200-239 mg/dLHigh cholesterol >=240 mg/dLRecommendations of the NCEP Adult Treatment Panel for the following risk-cutoff thresholds for the [place] population. Serum or plasma ferritin luigi surement (mass/volume)Ordered By: Jc Torres on 09-27-2024 Ferritin [Mass/Vol] 10 ng/mL Low 22-378 [facility] Serum or plasma iron saturat ion measurement (mass fraction)Ordered By: Jc Torres on 09-27-2024 Iron saturation [Mass fraction] 5.0 % Low 13-59 [facility] Serum or plasma urea nitroge n measurement (mass/volume)Ordered By: Jc Torres on 09-27-2024 Urea nitrogen [Mass/Vol] 36 mg/dL High 4-19 [facility] Serum or plasma uric acid me asurement (mass/volume)Ordered By: Jc Torres on 09-27-2024 Urate [Mass/Vol] 4.5 mg/dL 2.6-6.0 [facility] Comment on above: The drugs N-Acetylcy steine and Metamizole may falsely depress this assay. Sodium levelOrdered By: Brandie Torres on 09-27-2024 Sodium [Moles/Vol] 137 mmol/L 133-145 [facility] Total proteinOrdered By: Lissy Torres on 09-27-2024 Protein [Mass/Vol] 5.6 g/dL Low 5.9-8.4 [facility] Triglycerides measurementOrd ered By: Jc Torres on 09-27-2024 Triglyceride [Mass/Vol] 23 mg/dL <199 [facility] Comment on above: The drugs N-Acetylcy steine and Metamizole may falsely depress this assay. Normal range: <150 mg/dLBorderline High: 150-199 mg/dLHigh: 200-499 mg/dLVery High: >500 mg/dL Uric Acidon 09-27-2024 URIC 4.5 mg/dL Normal 2.6-6.0 [facility] Comment on above: Result Comment: The drugs N-Acetylcysteine and Metamizole may falsely depress this assay. Performed By: #### L 801.2650, L501.05351, L506.1000, L503.6550, L801.1541, L500.4100, L506.0400, L101.9900, L504.2610, L501.9310, L501.5101, L501.9186, L801.1543, L100.0100, L501.9520, L503.6030, L501.9985, L3400.1350, L3250.0100, L3100.7870, L803.0600, L3300.7100, L500.4050, L3300.0100, L3300.6900, L3300.1900, L300.4700, L501.1400 #### [facility] [address] [place], [place], [id number] Vitamin D,25 Hydroxyon 09-27 Vitamin D 25-OH 53.9 ng/mL Normal 30-100 [facility] Comment on above: Result Comment: Mary min D Status Deficiency: <20 ng/mL (50nmol/L) Insufficiency: 20-30 ng/mL (50-75 nmol/L) Sufficiency: 30-100 ng/mL (75-250 nmol/L) Toxicity: >100 ng/mL (>250 nmol/L) Performed By: #### L 801.2650, L501.71338, L506.1000, L503.6550, L801.1541, L500.4100, L506.0400, L101.9900, L504.2610, L501.9310, L501.5101, L501.9186, L801.1543, L100.0100, L501.9520, L503.6030, L501.9985, L3400.1350, L3250.0100, L3100.7870, L803.0600, L3300.7100, L500.4050, L3300.0100, L3300.6900, L3300.1900, L300.4700, L501.1400 #### [facility] [address] [facility]. [place], [place], [address] White blood cell (WBC) count Ordered By: Jc Torres on 09-27-2024 WBC (Bld) [#/Vol] 4.5 10*3/uL 4.4-11.0 [facility] Abdomen Single Viewon 2024 Abdomen Single View [facility] [address] [place] [address] Abdomen Single View MR#: [id number] Acct: [id number] Name: HALEY GLEZ Rep #: [id number] : 1965 F 59 From: Rolando Wahl PCP: Dr. 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 RAD/Abdomen Single View IMPRESSION: A moderate stool burden is noted. No small bowel dilation is evident. No mass or mass effect is seen. No radiopaque foreign body (including capsule shaped) is identified. Urrr-em-aphtaemv degenerative changes of the visualized spine are also noted. Reading Location: [facility] CC: MITZY Ray; Dr. Jossie De La Rosa MD 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Signed Normal [facility] CBC W Auto Differential pane l (Bld)on 09-18-2024 Anisocytosis Ql (Bld) Present Normal [facility] Comment on above: Order Comment: Speci men Type: BLOOD SPECIMENOrdering Facility: [facility] Address: [address] [place] [address] Performed By: #### 5 7021-8 ####[facility] [id number] [address] LABORATORYCLIA [id number] [place] [address] [facility] Basophils (Bld) [#/Vol] 0.03 10*3/uL Normal <0.11 [facility] Comment on above: Order Comment: Speci men Type: BLOOD SPECIMENOrdering Facility: [facility] Address: [address] [place] [address] Performed By: #### 5 7021-8 ####[facility] [id number] [address] LABORATORYCLIA [id number] [address] [place] Basophils/100 WBC (Bld) 0.8 % Normal [facility] Comment on above: Order Comment: Speci men Type: BLOOD SPECIMENOrdering Facility: [facility] Address: [address] [place] [address] Performed By: #### 5 7021-8 ####[facility] [id number] [address] LABORATORYCLIA [id number] [place] [address] [place] Differential cell count method Nom (Bld) Auto Normal [facility] Comment on above: Order Comment: Speci men Type: BLOOD SPECIMENOrdering Facility: [facility] Address: [address] [place] [address] Performed By: #### 5 7021-8 ####[facility] NATHANWNCLIA [id number] [address] LABORATORYCLIA [id number] [place] [address] [place] Eosinophils (Bld) [#/Vol] 0.03 10*3/uL Normal <0.46 [facility] Comment on above: Order Comment: Speci men Type: BLOOD SPECIMENOrdering Facility: [facility] Address: [address] [place] [address] Performed By: #### 5 7021-8 ####[facility] CAMPUSNCLIA [id number] [address] LABORATORYCLIA [id number] [place] [address] [place] Eosinophils/100 WBC (Bld) 0.8 % Normal [facility] Comment on above: Order Comment: Speci men Type: BLOOD SPECIMENOrdering Facility: [facility] Address: [address] [place] [address] Performed By: #### 5 7021-8 ####[facility] NATHANWAURORALIA [id number] [address] LABORATORYCLIA [id number] [place] [address] [place] Erythrocyte distribution width (RBC) [Ratio] 26.8 % High 11.5-15.0 [facility] Comment on above: Order Comment: Speci men Type: BLOOD SPECIMENOrdering Facility: [facility] Address: [address] [place] [address] Performed By: #### 5 7021-8 ####[facility] MILLWNCLIA [id number] [address] LABORATORYCLIA [id number] [place] [address] [place] Hematocrit (Bld) [Volume fraction] 30.1 % Low 36.0-46.0 [facility] Comment on above: Order Comment: Speci men Type: BLOOD SPECIMENOrdering Facility: [facility] Address: [facility] [place] [address] Performed By: #### 5 7021-8 ####[facility] [id number] [address] LABORATORYCLIA [id number] [place] [address] [place] Hemoglobin (Bld) [Mass/Vol] 10.3 g/dL Low 11.5-15.5 [facility] Comment on above: Order Comment: Speci men Type: BLOOD SPECIMENOrdering Facility: [facility] Address: [address] [place] [address] Performed By: #### 5 7021-8 ####[facility] [id number] [address] LABORATORYCLIA [id number] [place] [address] [place] Immature granulocytes (Bld) [#/Vol] 10*3/uL Normal <0.10 [facility] Comment on above: Order Comment: Speci men Type: BLOOD SPECIMENOrdering Facility: [facility] Address: [address] [place] [address] Performed By: #### 5 7021-8 ####[facility]ENTERWNCLIA [id number] [address] LABORATORYCLIA [id number] [place] [address] [place] Immature granulocytes/100 WBC (Bld) 0.3 % Normal [facility] Comment on above: Order Comment: Speci men Type: BLOOD SPECIMENOrdering Facility: [facility] Address: [address] [place] [address] Performed By: #### 5 7021-8 ####[facility] CENTERWNCLIA [id number] [address] LABORATORYCLIA [id number] [place] [address] [facility] [place] Lymphocytes (Bld) [#/Vol] 0.57 10*3/uL Low 1.00-4.00 [facility] Comment on above: Order Comment: Speci men Type: BLOOD SPECIMENOrdering Facility: [facility] Address: [address] [place] [address] Performed By: #### 5 7021-8 ####[facility] [id number] [address] LABORATORYCLIA [id number] [place] [address] [place] Lymphocytes/100 WBC (Bld) 15.1 % Normal [facility] Comment on above: Order Comment: Speci men Type: BLOOD SPECIMENOrdering Facility: [facility] Address: [address] [place] [address] Performed By: #### 5 7021-8 ####[facility] [id number] [address] LABORATORYCLIA [id number] [place] [address] [place] MCH (RBC) [Entitic mass] 28.7 pg Normal 26.0-34.0 [facility] Comment on above: Order Comment: Speci men Type: BLOOD SPECIMENOrdering Facility: [facility] Address: [address] [place] [address] Performed By: #### 5 7021-8 ####[facility] MILLTOWNCLIA [id number] [address] LABORATORYCLIA [id number] [address] MCHC (RBC) [Mass/Vol] 34.2 g/dL Normal 30.5-36.0 [facility] Comment on above: Order Comment: Speci men Type: BLOOD SPECIMENOrdering Facility: [facility] Address: [address] [place] [address] Performed By: #### 5 7021-8 ####[facility] CENTERWNCLIA [id number] [address] LABORATORYCLIA [id number] [address] MCV (RBC) [Entitic vol] 83.8 fL Normal 80.0-100.0 [facility] Comment on above: Order Comment: Speci men Type: BLOOD SPECIMENOrdering Facility: [facility] Address: [address] [place] [address] Performed By: #### 5 7021-8 ####[facility] CENTERWNCLIA [id number] [address] LABORATORYCLIA [id number] [address] OF [facility] Monocytes (Bld) [#/Vol] 0.33 10*3/uL Normal <0.87 [facility] Comment on above: Order Comment: Speci men Type: BLOOD SPECIMENOrdering Facility: [facility] Address: [address] [place] [address] Performed By: #### 5 7021-8 ####[facility] MILLTOWNCLIA [id number] [address] LABORATORYCLIA [id number] [place] [address] [place] Monocytes/100 WBC (Bld) 8.7 % Normal [facility] Comment on above: Order Comment: Speci men Type: BLOOD SPECIMENOrdering Facility: [facility] Address: [address] [place] [address] Performed By: #### 5 7021-8 ####[facility] MILLTOWNCLIA [id number] [address] LABORATORYCLIA [id number] [place] [address] [place] Neutrophils (Bld) [#/Vol] 2.81 10*3/uL Normal 1.45-7.50 [facility] Comment on above: Order Comment: Speci men Type: BLOOD SPECIMENOrdering Facility: [facility] Address: [address] [place] [address] Performed By: #### 5 7021-8 ####[facility] CENTERWHILIA [id number] [address] LABORATORYCLIA [id number] [address] [place] Neutrophils/100 WBC (Bld) 74.3 % Normal [facility] Comment on above: Order Comment: Speci men Type: BLOOD SPECIMENOrdering Facility: [facility] Address: [address] [place] [address] Performed By: #### 5 7021-8 ####[facility] HOSPITALLIA [id number] [address] LABORATORYIA [id number] [place] [address] [place] Nucleated RBC (Bld) [#/Vol] 10*3/uL Normal <0.01 [facility] Comment on above: Order Comment: Speci men Type: BLOOD SPECIMENOrdering Facility: [facility] Address: [address] [place] [address] Performed By: #### 5 7021-8 ####[facility] RANVICTOR MWAURORALIA [id number] [address] LABORATORYCLIA [id number] [address] [place] Nucleated RBC/100 WBC (Bld) [Ratio] 0.0 /100 WBC Normal [facility] Comment on above: Order Comment: Speci men Type: BLOOD SPECIMENOrdering Facility: [facility] Address: [address] [place] [address] Performed By: #### 5 7021-8 ####[facility] CAMPUSAURORALIA [id number] [address] LABORATORYCLIA [id number] [place] [address] [place] Ovalocytes LM Ql (Bld) Few Normal Cl [facility] Comment on above: Order Comment: Speci men Type: BLOOD SPECIMENOrdering Facility: [facility] Address: [address] [place] [address] Performed By: #### 5 7021-8 ####[facility] CAMPUSAURORALIA [id number] [address] LABORATORYCLIA [id number] [place] [address] [place] [facility] Platelet mean volume (Bld) [Entitic vol] 10.6 fL Normal 9.0-12.7 [facility] Comment on above: Order Comment: Speci men Type: BLOOD SPECIMENOrdering Facility: [facility] Address: [address] [place] [address] Performed By: #### 5 7021-8 ####[facility] CENTERWNCLIA [id number] [address] [facility] LABORATORYCLIA [id number] [place] [address] [place] Platelets (Bld) [#/Vol] 294 10*3/uL Normal 150-400 [facility] Comment on above: Order Comment: Speci men Type: BLOOD SPECIMENOrdering Facility: [facility] Address: [address] [place] [address] Result Comment: No c lot detected. Performed By: #### 5 7021-8 ####[facility] CENTERWNCLIA [id number] [address] LABORATORYCLIA [id number] [place] [address] [place] Platelets Estimate (Bld) [#/Vol] Adequate Normal [facility] Comment on above: Order Comment: Speci men Type: BLOOD SPECIMENOrdering Facility: [facility] Address: [address] [place] [address] Performed By: #### 5 7021-8 ####[facility] CENTERWHILIA [id number] [address] LABORATORYCLIA [id number] [place] [address] [place] RBC (Bld) [#/Vol] 3.59 10*6/uL Low 3.90-5.20 [facility] Comment on above: Order Comment: Speci men Type: BLOOD SPECIMENOrdering Facility: [facility] Address: [address] [place] [address] Performed By: #### 5 7021-8 ####[facility] HOSPITALA [id number] [address] LABORATORYCLIA [id number] [place] [address] [place] RBC FRAGMENTS Few Abnormal None Seen [facility] Comment on above: Order Comment: Speci men Type: BLOOD SPECIMENOrdering Facility: [facility] Address: [address] [place] [address] Performed By: #### 5 7021-8 ####[facility] MILLVICTOR MWAURORALIA [id number] [address] LABORATORYCLIA [id number] [address] RED CELL MORPH Reviewed: see result s of individual morphologies Normal [facility] Comment on above: Order Comment: Speci men Type: BLOOD SPECIMENOrdering Facility: [facility] Address: [address] [place] [address] Performed By: #### 5 7021-8 ####[facility] CAMPUSNCLIA [id number] [address] LABORATORYCLIA [id number] [address] Target cells LM Ql (Bld) Moderate Normal [facility] Comment on above: Order Comment: Speci men Type: BLOOD SPECIMENOrdering Facility: [facility] Address: [address] [place] [address] Performed By: #### 5 7021-8 ####[facility] CAMPUSAURORALIA [id number] [address] LABORATORYCLIA [id number] [address] OF [facility] WBC (Bld) [#/Vol] 3.78 10*3/uL Normal 3.70-11.00 [facility] Comment on above: Order Comment: Speci men Type: BLOOD SPECIMENOrdering Facility: [facility] Address: [address] [place] [address] Performed By: #### 5 7021-8 ####[facility] MILLWNCLIA [id number] [address] LABORATORYCLIA [id number] [address] Comp Metab 2000 Pnl SerPlon 09-18-2024 Protein [Mass/Vol] 5.8 g/dL Low 6.3-8.0 [facility] Comment on above: Order Comment: Speci men Type: BLOOD SPECIMENOrdering Facility: [facility] Address: [address] [place] [address] Performed By: #### 2 4323-8, 2885-2, 2532-0 ####[facility] CAMPUSALPHONSOA [id number] [address] Comprehensive metabolic 2000 panelon 09-18-2024 Albumin [Mass/Vol] 3.8 g/dL Low 3.9-4.9 [facility] Comment on above: Order Comment: Speci men Type: BLOOD SPECIMENOrdering Facility: [facility] Address: [address] [place] [address] Performed By: #### 2 4323-8, 2885-2, 2532-0 ####[facility] CAMPUSAURORALIA [id number] [address] [place] ALP [Catalytic activity/Vol] 73 U/L Normal 34-123 [facility] Comment on above: Order Comment: Speci men Type: BLOOD SPECIMENOrdering Facility: [facility] Address: [address] [place] [address] Performed By: #### 2 4323-8, 2885-2, 2532-0 ####[facility] CAMPUSNCLIA [id number] [address] ALT [Catalytic activity/Vol] 23 U/L Normal 7-38 [facility] Comment on above: Order Comment: Speci men Type: BLOOD SPECIMENOrdering Facility: [facility] Address: [address] [place] [address] Performed By: #### 2 4323-8, 2885-2, 2532-0 ####[facility] NATHANWNCLIA [id number] [place] [address] [place] Anion gap [Moles/Vol] 10 mmol/L Normal 8-15 [facility] Comment on above: Order Comment: Speci men Type: BLOOD SPECIMENOrdering Facility: [facility] Address: [address] [place] [address] Performed By: #### 2 4323-8, 2885-2, 2532-0 ####[facility] RANSTEUBENNCLIA [id number] [place] [address] [place] AST [Catalytic activity/Vol] 15 U/L Normal 13-35 [facility] Comment on above: Order Comment: Speci men Type: BLOOD SPECIMENOrdering Facility: [facility] Address: [address] [place] [address] Performed By: #### 2 4323-8, 2885-2, 2532-0 ####[facility] RANSTEUBENAURORALIA [id number] [place] [address] [place] Bilirubin [Mass/Vol] mg/dL Low 0.2-1.3 [facility] Comment on above: Order Comment: Speci men Type: BLOOD SPECIMENOrdering Facility: [facility] Address: [address] [place] [address] Performed By: #### 2 4323-8, 2885-2, 2532-0 ####[facility] CAMPUSNCLIA [id number] [place] [address] [place] Calcium [Mass/Vol] 10.0 mg/dL Normal 8.5-10.2 [facility] Comment on above: Order Comment: Speci men Type: BLOOD SPECIMENOrdering Facility: [facility] Address: [address] [place] [address] Performed By: #### 2 4323-8, 2885-2, 2532-0 ####[facility] CAMPUSNCLIA [id number] [place] [address] [place] Chloride [Moles/Vol] 100 mmol/L Normal 98-107 [facility] Comment on above: Order Comment: Speci men Type: BLOOD SPECIMENOrdering Facility: [facility] Address: [address] [place] [address] Performed By: #### 2 4323-8, 2885-2, 2532-0 ####[facility] HOSPITALA [id number] [place] [address] [place] CO2 [Moles/Vol] 27 mmol/L Normal 22-30 [facility] Comment on above: Order Comment: Speci men Type: BLOOD SPECIMENOrdering Facility: [facility] Address: [address] [place] [address] Performed By: #### 2 4323-8, 2885-2, 2532-0 ####[facility]ANT HOSPITALLIA [id number] [place] [address] [place] Creatinine [Mass/Vol] 0.55 mg/dL Low 0.58-0.96 [facility] Comment on above: Order Comment: Speci men Type: BLOOD SPECIMENOrdering Facility: [facility] Address: [address] [place] [address] Performed By: #### 2 4323-8, 2885-2, 2532-0 ####[facility] CAMPUSNCLIA [id number] [place] [address] [place] Creatinine and Glomerular filtration rate.predicted panel (S/P/Bld) 106 mL/min/1.73m??? Normal >=60 [facility] Comment on above: Order Comment: Speci men Type: BLOOD SPECIMENOrdering Facility: [facility] Address: [address] [place] [address] Result Comment: Jannet mated Glomerular Filtration Rate (eGFR) is calculated using the 2020 CKD-EPI creatinine equation. This equation utilizes serum creatinine, sex, and age as parameters. The creatinine assay has traceable calibration to isotope dilution-mass spectrometry. Refer to KDIGO guidelines for clinical interpretation. In patients with unstable renal function, e.g. those with acute kidney injury, the eGFR may not accurately reflect actual GFR. Performed By: #### 2 4323-8, 2885-2, 2531-0 ####[facility] [id number] [place] [address] [place] Glucose [Mass/Vol] 75 mg/dL Normal 74-99 [facility] Comment on above: Order Comment: Soraida monique Type: BLOOD SPECIMENOrdering Facility: [facility] Address: [address] [place] [address] Result Comment: The [place] Diabetes [employer] (ADA) provides guidance for cutoff values for fasting glucose and random glucose. The ADA defines fasting as no caloric intake for at least 8 hours. Fasting plasma glucose results between 100 to 125 mg/dL indicate increased risk for diabetes (prediabetes). Fasting plasma glucose results greater than or equal to 126 mg/dL meet the criteria for diagnosis of diabetes. In the absence of unequivocal hyperglycemia, results should be confirmed by repeat testing. In a patient with classic symptoms of hyperglycemia or hyperglycemic crisis, random plasma glucose results greater than or equal to 200 mg/dL meet the criteria for diagnosis of diabetes. Reference: Standards of Medical Care in Diabetes 2016, [place] [employer]. Diabetes Care. 2016.39(Suppl 1). Performed By: #### 2 4323-8, 2882, 2531-0 ####[facility] PAL[facility] SPRINGS CAMPUSNCLI [id number] [place] [address] [place] Potassium [Moles/Vol] 4.6 mmol/L Normal 3.7-5.1 [facility] Comment on above: Order Comment: Soraida monique Type: BLOOD SPECIMENOrdering Facility: [facility] Address: [address] [place], [place] [address] Performed By: #### 2 4323-8, 288-2, 2531-0 ####[facility] SPR[facility] CAMPUSNCLIA [id number] [place] [address] [place] Sodium [Moles/Vol] 137 mmol/L Normal 136-144 [facility] Comment on above: Order Comment: Speci men Type: BLOOD SPECIMENOrdering Facility: [facility] Address: [address] [place] [address] Performed By: #### 2 4323-8, 2885-2, 2-0 ####GRANT HOSPITALLIA [id number] [place] [address] [place] Urea nitrogen [Mass/Vol] 39 mg/dL High 7-21 [facility] Comment on above: Order Comment: Speci men Type: BLOOD SPECIMENOrdering Facility: [facility] Address: [address] [place] [address] Performed By: #### 2 4323-8, 2885-2, 2-0 ####[facility] HOSPITALA [id number] [place] [address] [place] Ferritin SerPl-mCncon 2024 Ferritin [Mass/Vol] 27.0 ng/mL Normal 14.7-205.1 [facility] Comment on above: Order Comment: Speci men Type: BLOOD SPECIMENOrdering Facility: [facility] Address: [address] [place] [address] Performed By: #### 5 0190-8, 2276-4 ####[facility] LABCLIA [id number] [place] [id number] [place] IMMUNOFIXATION SCREEN, SERUM on 09-18-2024 MPA RESULT No M protein is identified. Normal No M protein is identified. [facility] Comment on above: Order Comment: Speci men Type: BLOOD SPECIMENOrdering Facility: [facility] Address: [address] [place] [address] Performed By: #### I [facility] ####[facility] LABCLIA [id number] [place] [address] [place] STAFF REVIEW (MPA) Reviewed by Shauna Pedraza MD Normal [facility] Comment on above: Order Comment: Speci men Type: BLOOD SPECIMENOrdering Facility: [facility] Address: [address] [place] [address] Performed By: #### I FESC ####[facility] LABCLIA [id number] [place] [address] [place] IMMUNOGLOBULINS,IGG,IGA,IGMo n 09-18-2024 IgA [Mass/Vol] 38 mg/dL Low 70-400 [facility] Comment on above: Order Comment: Speci men Type: BLOOD SPECIMENOrdering Facility: [facility] Address: [address] [place] [address] Performed By: #### S ERIMM ####[facility] LABCLIA [id number] [place] [address] [place] IgG [Mass/Vol] 566 mg/dL Low 700-1600 [facility] Comment on above: Order Comment: Speci men Type: BLOOD SPECIMENOrdering Facility: [facility] Address: [address] [place] [address] Performed By: #### S ERIMM ####[facility] LABCLIA [id number] [place] [address] [place] IgM [Mass/Vol] 27 mg/dL Low 40-230 [facility] Comment on above: Order Comment: Speci men Type: BLOOD SPECIMENOrdering Facility: [facility] Address: [address] [place] [address] Performed By: #### S ERIMM ####[facility] LABCLIA [id number] [place] [id number] [place] Iron and Iron binding capaci ty panelon 09-18-2024 Iron [Mass/Vol] 135 ug/dL Normal 41-186 [facility] Comment on above: Order Comment: Speci men Type: BLOOD SPECIMENOrdering Facility: [facility] Address: [address] [place] [address] Performed By: #### 5 0190-8, 2275-4 ####[facility] LABCLIA [id number] [place] [address] [place] Iron binding capacity [Mass/Vol] 385 ug/dL Normal 232-386 [facility] Comment on above: Order Comment: Speci men Type: BLOOD SPECIMENOrdering Facility: [facility] Address: [address] [place] [address] Performed By: #### 5 0190-8, 2275-06 ####[facility] LABIA [id number] [place] [address] [place] Iron/TIBC [Molar ratio] 35.1 % Normal 15.0-57.[address] [facility] Comment on above: Order Comment: Speci men Type: BLOOD SPECIMENOrdering Facility: [facility] Address: [address] [place] [address] Performed By: #### 5 0190-8, 4 ####[facility] LABIA [id number] [place] [address] [place] KAPPA/VIVEROS,FREE,SERon 2024 Immunoglobulin light chains.kappa.free (S) [Mass/Vol] 18.5 mg/L Normal 3.3-19.4 [facility] Comment on above: Order Comment: Speci men Type: BLOOD SPECIMEN [facility] Address: [address] [place] [address] Result Comment: Rare ly, increased serum free light chains levels may not be detected or accurately quantified due to prozone phenomenon or in high viscosity samples using this immunoturbidimetric assay. Correlation with other laboratory results and clinical findings is recommended. The [place] Free Light Chain was performed using the Binding Site Optilite immunoturbidimetric method. Result obtained with different assay methods or kits cannot be used interchangeably. Performed By: #### I FES #### [facility] LAB IA [id number] [address] [place] [address] [place] Immunoglobulin light chains.kappa/Immunoglobu dariana light chains.lambda (S) [Mass ratio] 0.10 Low 0.26-1.65 [facility] Comment on above: Order Comment: Speci [facility] Type: BLOOD SPECIMEN [facility] Address: [address] [place] [address] Performed By: #### I FES #### [facility] LAB IA [id number] [address] [place] [address] [place] Immunoglobulin light chains.lambda.free [Mass/Vol] 179.7 mg/L High 5.7-26.3 [facility] Comment on above: Order Comment: Soraida [facility] Type: BLOOD SPECIMEN [facility] Address: [address] [place] [address] Result Comment: Rare ly, increased serum free light chains levels may not be detected or accurately quantified due to prozone phenomenon or in high viscosity samples using this immunoturbidimetric assay. Correlation with other laboratory results and clinical findings is recommended. The [place] Free Light Chain was performed using the Binding Site Optilite immunoturbidimetric method. Result obtained with different assay methods or kits cannot be used interchangeably. Performed By: #### I FES #### [facility] LAB IA [id number] [address] [place] [address] [place] LDH SerPl-cCncon 09-18-2024 LDH [Catalytic activity/Vol] 174 U/L Normal 135-214 [facility] Comment on above: Order Comment: Speci [facility] Type: BLOOD SPECIMENOrdering Facility: [facility] Address: [address] [place] [address] Result Comment: Hemo lysis present. The origin of the hemolysis, in vitro versus an in vivo hemolytic process, cannot be distinguished via this assay alone. In vitro hemolysis may lead to non-physiological (spurious) elevation in lactate dehydrogenase (LDH) results. The result should be interpreted in context of the clinical setting and other test results. Suggest reorder as clinically indicated. Performed By: #### 2 4323-8, 2885-2, 2532-0 ####[facility] [id number] [place] [id number] [place] MONOCLONAL PROT UR W/INTERPo n 09-18-2024 STAFF REVIEW (PA) Reviewed by Dr. Daisy Kapoor MD [facility] Comment on above: Order Comment: Speci men Type: URINE SPECIMENOrdering Facility: [facility] Address: [address] [place] [address] Performed By: #### U RMPA ####[facility] LABCLIA [id number] [place] [address] [place] UMPA RESULT No M protein is identified. Normal No M protein is identified. [facility] Comment on above: Order Comment: Speci men Type: URINE SPECIMENOrdering Facility: [facility] Address: [address] [place] [address] Performed By: #### U RMPA ####[facility] LABCLIA [id number] [place] [address] [place] PROTEIN ELECTROPHORESIS SERU M (P)on 09-18-2024 Albumin [Mass/Vol] 3.81 g/dL Normal 3.43-5.41 [facility] Comment on above: Order Comment: Speci men Type: BLOOD SPECIMEN [facility] Address: [address] [place] [address] Performed By: #### L [id number] #### [facility] LAB CLIA [id number] [address] [place] [address] [place] Alpha 1 globulin Elph [Mass/Vol] 0.30 g/dL Normal 0.18-0.43 [facility] Comment on above: Order Comment: Speci men Type: BLOOD SPECIMEN [facility] Address: [address] [place] [address] Performed By: #### L [id number] #### [facility] LAB CLIA [id number] [address] [place] [address] [place] Alpha 2 globulin Elph [Mass/Vol] 0.52 g/dL Normal 0.42-0.98 [facility] Comment on above: Order Comment: Speci men Type: BLOOD SPECIMEN [facility] Address: [address] [place] [address] Performed By: #### L [id number] #### [facility] CLIA [id number] [address] [place] [address] [place] Beta globulin Elph [Mass/Vol] 0.65 g/dL Normal 0.61-1.17 [facility] Comment on above: Order Comment: Speci men Type: BLOOD SPECIMEN [facility] Address: [address] [place] [address] Performed By: #### L [id number] #### [facility] CLIA [id number] [address] [place] [address] [place] Gamma globulin Elph [Mass/Vol] 0.51 g/dL Low 0.53-1.51 [facility] Comment on above: Order Comment: Speci men Type: BLOOD SPECIMEN [facility] Address: [address] [place] [address] Performed By: #### L [id number] #### [facility] LAB CLIA [id number] [address] [place] [address] [place] INTERPRETATION COMMENT FOR PROTEIN ELECTROPHORESIS Hypogammaglobulinemia is present, which can be seen in the setting of monoclonal gammopathy. If clinically indicated, monoclonal protein analysis and serum free light chain analysis are suggested to evaluate further for monoclonal gammopathy. Normal [facility] Comment on above: Order Comment: Speci men Type: BLOOD SPECIMEN [facility] Address: [address] [place] [address] Performed By: #### L [id number] #### [facility] CLIA [id number] [address] [place] [address] [place] M-PROTEIN LOCATION Normal [facility] Comment on above: Order Comment: Speci men Type: BLOOD SPECIMEN Ordering Facility: [facility] Address: [address] [place] [address] Result Comment: Not Applicable. Performed By: #### L [id number] #### [facility] CLIA [id number] [address] [place] [address] [place] Protein Fractions [Interp] No definitive M protein is identified on protein electrophoresis. Normal No definitive M protein is identified on protein electrophore sis. [facility] Comment on above: Order Comment: Speci men Type: BLOOD SPECIMEN Ordering Facility: [facility] Address: [address] [place] [address] Performed By: #### L [id number] #### [facility] CLIA [id number] [address] [place] [address] [place] Protein.monoclonal Elph [Mass/Vol] 0.00 g/dL Normal <=0.00 [facility] Comment on above: Order Comment: Speci men Type: BLOOD SPECIMEN Ordering Facility: [facility] Address: [address] [place] [address] Performed By: #### L [id number] #### [facility] CLIA [id number] [address] [place] [address] [place] SPE STAFF REVIEW Reviewed by Dr. Daisy Kapoor MD Normal [facility] Comment on above: Order Comment: Speci men Type: BLOOD SPECIMEN Ordering Facility: [facility] Address: [address] [place] [address] Performed By: #### L [id number] #### [facility] CLIA [id number] [address] [place] [address] [place] Prot Ur-mCncon 09-18-2024 Protein (U) [Mass/Vol] 4 mg/dL Normal 0-20 [facility] Comment on above: Order Comment: Speci men Type: URINE SPECIMENOrdering Facility: [facility] Address: [address] [place] [address] Performed By: #### 2 888-6 ####[facility] [id number] [place] [address] [place] URINE PROTEIN ELECTROPHORESI S RANDOM (P)on 09-18-2024 Albumin Elph (U) [Mass fraction] 58.09 % Normal [facility] Comment on above: Order Comment: Speci men Type: URINE SPECIMENOrdering Facility: [facility] Address: [address] [place] [address] Performed By: #### L [id number] ####[facility] [id number] [place] [address] [place] Alpha 1 globulin Elph (U) [Mass fraction] 3.30 % Normal [facility] Comment on above: Order Comment: Speci men Type: URINE SPECIMENOrdering Facility: [facility] Address: [address] [place] [address] Performed By: #### L [id number] ####[facility] [id number] [place] [address] [place] Alpha 2 globulin Elph (U) [Mass fraction] 16.28 % Normal [facility] Comment on above: Order Comment: Speci men Type: URINE SPECIMENOrdering Facility: [facility] Address: [address] [place] [address] Performed By: #### L [id number] ####[facility] [id number] [place] [id number] [place] Beta globulin Elph (U) [Mass fraction] 17.66 % Normal [facility] Comment on above: Order Comment: Speci men Type: URINE SPECIMENOrdering Facility: [facility] Address: [address] [place] [address] Performed By: #### L [id number] ####[facility] [id number] [place] [address] [place] Gamma globulin Elph (U) [Mass fraction] 4.68 % Normal [facility] Comment on above: Order Comment: Speci men Type: URINE SPECIMENOrdering Facility: [facility] Address: [address] [place] [address] Performed By: #### L [id number] ####[facility] [id number] [place] [address] [place] Protein Fractions Elph Shayne (U) [Interp] No definitive M protein is identified on protein electrophoresis. Normal No definitive M protein is identified on protein electrophore sis. [facility] Comment on above: Order Comment: Speci men Type: URINE SPECIMENOrdering Facility: [facility] Address: [address] [place] [address] Performed By: #### L [id number] ####[facility] [id number] [address] [place] STAFF REVIEW (URINE ELECTRO) Reviewed by Dr. Asael Kapoor MD Normal [facility] Comment on above: Order Comment: Speci men Type: URINE SPECIMENOrdering Facility: [facility] Address: [address] [place] [address] Performed By: #### L [id number] ####[facility] [id number] [place] [id number] [place] Ferritinon 08-21-2024 Ferritin [Mass/Vol] 26 ng/mL Normal 22-378 [facility] Comment on above: Performed By: #### L 801.2650, L501.01765, L506.1000, L503.6550, L801.1541, L500.4100, L506.0400, L101.9900, L504.2610, L501.9310, L501.5101, L501.9186, L801.1543, L100.0100, L501.9520, L503.6030, L501.9985, L3400.1350, L3250.0100, L3100.7870, L803.0600, L3300.7100, L500.4050, L3300.0100, L3300.6900, L3300.1900, L300.4700, L501.1400 #### [facility] [address] [place], [place], [id number] Immature platelet percentage Ordered By: Jossie De La Rosa on 08-21-2024 Platelets reticulated/100 platelets Auto (Bld) 8.8 % High 1.0-7.9 [facility] Comment on above: Low PLT + Low IPF salvador ggest a bone marrow production disorderLow PLT + high IPF suggests peripheral destruction(e.g.ITP, TTP, HIT, DIC, autoimmune) or bone marrow recoveryTrending of serial IPF measurements is recommended when evaluating for bone marrow responesValue above normal range indicates an increase in RBC cellular response from bone marrow. Iron measurement (mass/mass) Ordered By: Jossie De La Rosa on 08-21-2024 Iron (Unsp spec) [Mass/Mass] 28 ug/dL Low 50-170 [facility] Iron+Iron Binding Capacityon 08-21-2024 Iron [Mass/Vol] 28 ug/dL Low 50-170 [facility] Comment on above: Performed By: #### L 801.2650, L501.75907, L506.1000, L503.6550, L801.1541, L500.4100, L506.0400, L101.9900, L504.2610, L501.9310, L501.5101, L501.9186, L801.1543, L100.0100, L501.9520, L503.6030, L501.9985, L3400.1350, L3250.0100, L3100.7870, L803.0600, L3300.7100, L500.4050, L3300.0100, L3300.6900, L3300.1900, L300.4700, L501.1400 #### [facility] [address] [place], [address] UIBC 406 ug/dL Normal 228-428 [facility] Comment on above: Performed By: #### L 801.2650, L501.96205, L506.1000, L503.6550, L801.1541, L500.4100, L506.0400, L101.9900, L504.2610, L501.9310, L501.5101, L501.9186, L801.1543, L100.0100, L501.9520, L503.6030, L501.9985, L3400.1350, L3250.0100, L3100.7870, L803.0600, L3300.7100, L500.4050, L3300.0100, L3300.6900, L3300.1900, L300.4700, L501.1400 #### [facility] [address] [place], [address] No Panel InformationOrdered By: Jossie De La Rosa on 08-21-2024 Unsaturated Iron Binding Capacity 406 ug/dL 228-428 [facility] Office Visit Reporton 2024 Office Visit Report [facility] [address] [place] [place] [address] OFFICE VISIT Date of Service: 08/21/24 MR#: [id number] Acct: [id number] Patient: HALEY GLEZ BALBINA Rep #: [id number] 7 : 1965 Provider: Hero Lawrence DO Age/Sex: 59/F [place] [facility] [place]: Signed Intake Vital Signs 06/27/24 14:41 Height 5 ft 10 in Weight: 125 lb 6 oz BMI 17.9 BP 139/87 H Respiration 16 Pulse 52 L Pulse Oximetry (%) 99 Oxygen Delivery Method room air Intake Visit Reasons: pill cam Chief Complaint: hypothyroidism Allergies codeine Allergy (Verified 06/27/24 14:38) Vomiting amoxicillin Adverse Reaction (Intermediate, Verified 06/27/24 14:38) hot flash lactose Adverse Reaction (Verified 06/27/24 14:38) Vomiting Office Procedures Procedure Administration Route: PO Administration Location: [facility] Dispensed Units: 1 Capsule Lot Number: [id number] Expiration Date: 05/25/25 Capsule ID Number: [id number] Consent Form Signed: Yes Reason for Pill Capsule Endoscopy: Anemia Comments: Pt tolerated procedure well. All questions answered Pill Cam Billing-In Office: [id number] GI TRACT CAPSULE ENDOSCOPY 08/23/24 0846 Date Hero Friend DO Cosigner Signature: Date (if applicable) CC: Normal [facility] Retic Panelon 08-21-2024 IM RET FRACTION 8.20 Normal 3.00-15.90 [facility] Comment on above: Performed By: #### L 801.2650, L501.05760, L506.1000, L503.6550, L801.1541, L500.4100, L506.0400, L101.9900, L504.2610, L501.9310, L501.5101, L501.9186, L801.1543, L100.0100, L501.9520, L503.6030, L501.9985, L3400.1350, L3250.0100, L3100.7870, L803.0600, L3300.7100, L500.4050, L3300.0100, L3300.6900, L3300.1900, L300.4700, L501.1400 #### [facility] [address] [place], [place], [id number] IPF 8.8 High 1.0-7.9 [facility] Comment on above: Result Comment: Low PLT + Low IPF suggest a bone marrow production disorder Low PLT + high IPF suggests peripheral destruction (e.g.ITP, TTP, HIT, DIC, autoimmune) or bone marrow recovery Trending of serial IPF measurements is recommended when evaluating for bone marrow respones Value above normal range indicates an increase in RBC cellular response from bone marrow. Performed By: #### L 801.2650, L501.77690, L506.1000, L503.6550, L801.1541, L500.4100, L506.0400, L101.9900, L504.2610, L501.9310, L501.5101, L501.9186, L801.1543, L100.0100, L501.9520, L503.6030, L501.9985, L3400.1350, L3250.0100, L3100.7870, L803.0600, L3300.7100, L500.4050, L3300.0100, L3300.6900, L3300.1900, L300.4700, L501.1400 #### [facility] [address] [facility] [place], [address] RET-HE 32.7 pg Normal 30-35 [facility] Comment on above: Performed By: #### L 801.2650, L501.89805, L506.1000, L503.6550, L801.1541, L500.4100, L506.0400, L101.9900, L504.2610, L501.9310, L501.5101, L501.9186, L801.1543, L100.0100, L501.9520, L503.6030, L501.9985, L3400.1350, L3250.0100, L3100.7870, L803.0600, L3300.7100, L500.4050, L3300.0100, L3300.6900, L3300.1900, L300.4700, L501.1400 #### [facility] [address] [facility] [place], [address] Retic Count 1.57 High 0.5-1.5 [facility] Comment on above: Performed By: #### L 801.2650, L501.56059, L506.1000, L503.6550, L801.1541, L500.4100, L506.0400, L101.9900, L504.2610, L501.9310, L501.5101, L501.9186, L801.1543, L100.0100, L501.9520, L503.6030, L501.9985, L3400.1350, L3250.0100, L3100.7870, L803.0600, L3300.7100, L500.4050, L3300.0100, L3300.6900, L3300.1900, L300.4700, L501.1400 #### [facility] [address], [address] Reticulocyte hemoglobin equi valent (RET-He) measurementOrdered By: Jossie De La Rosa on 08-21-2024 Hemoglobin (Reticulocytes) [Entitic mass] 32.7 pg 30-35 [facility] Reticulocytes Auto (Bld) [#/ Vol]Ordered By: Jossie De La Rosa on 08-21-2024 Reticulocytes/100 RBC (Bld) 1.57 % High 0.5-1.5 [facility] Serum or plasma ferritin luigi surement (mass/volume)Ordered By: Jossie De La Rosa on 08-21-2024 Ferritin [Mass/Vol] 26 ng/mL 22-378 [facility] Serum or plasma iron saturat ion measurement (mass fraction)Ordered By: Jossie De La Rosa on 08-21-2024 Iron saturation [Mass fraction] 6.5 % Low 13-59 [facility] Comment on above: Previous reported re sult: 6.0 %Edited by: AUTOINS on 08/21/24:1153 AMENDED REPORT 08/21/24 1153 IRON SATURATION previously reported as: 6.0 L % CBC W Auto Differential pane l (Bld)on 08-16-2024 Basophils (Bld) [#/Vol] 10*3/uL Normal <0.11 [facility] Comment on above: Order Comment: Speci men Type: BLOOD SPECIMEN Ordering Facility: [facility] Address: [address] [place] [address] Performed By: #### 5 7021-8 #### [facility] CLIA [id number] [address] [place] [address] [place] Basophils/100 WBC (Bld) 0.4 % Normal [facility] Comment on above: Order Comment: Speci men Type: BLOOD SPECIMEN Ordering Facility: [facility] Address: [address] [place] [address] Performed By: #### 5 7021-8 #### [facility] CLIA [id number] [address] [place] [address] [facility] [place] Differential cell count method Nom (Bld) Auto Normal [facility] Comment on above: Order Comment: Speci men Type: BLOOD SPECIMEN Ordering Facility: [facility] Address: [address] [place] [address] Performed By: #### 5 7021-8 #### [facility] CLIA [id number] [address] [place] [address] [place] Eosinophils (Bld) [#/Vol] 0.04 10*3/uL Normal <0.46 [facility] Comment on above: Order Comment: Speci men Type: BLOOD SPECIMEN Ordering Facility: [facility] Address: [address] [place] [address] Performed By: #### 5 7021-8 #### [facility] CLIA [id number] [address] [place] Eosinophils/100 WBC (Bld) 0.8 % Normal [facility] Comment on above: Order Comment: Speci men Type: BLOOD SPECIMEN Ordering Facility: [facility] Address: [address] [place] [address] Performed By: #### 5 7021-8 #### [facility] CLIA [id number] [address] [place] Erythrocyte distribution width (RBC) [Ratio] 28.1 % High 11.5-15.0 [facility] Comment on above: Order Comment: Speci men Type: BLOOD SPECIMEN Ordering Facility: [facility] Address: [facility] [place] [place] [address] Performed By: #### 5 7021-8 #### [facility] CLIA [id number] [address] [place] [address] [facility] [place] Hematocrit (Bld) [Volume fraction] 29.2 % Low 36.0-46.0 [facility] Comment on above: Order Comment: Speci men Type: BLOOD SPECIMEN Ordering Facility: [facility] Address: [address] [place] [address] Performed By: #### 5 7021-8 #### [facility] CLIA [id number] [address] [place] [address] [place] Hemoglobin (Bld) [Mass/Vol] 9.6 g/dL Low 11.5-15.5 [facility] Comment on above: Order Comment: Speci men Type: BLOOD SPECIMEN Ordering Facility: [facility] Address: [address] [place] [address] Performed By: #### 5 7021-8 #### [facility] CLIA [id number] [address] [place] [address] [place] Immature granulocytes (Bld) [#/Vol] 10*3/uL Normal <0.10 [facility] Comment on above: Order Comment: Speci men Type: BLOOD SPECIMEN Ordering Facility: [facility] Address: [address] [place] [address] Performed By: #### 5 7021-8 #### [facility] CLIA [id number] [address] [place] Immature granulocytes/100 WBC (Bld) 0.2 % Normal [facility] Comment on above: Order Comment: Speci men Type: BLOOD SPECIMEN Ordering Facility: [facility] Address: [address] [place] [address] Performed By: #### 5 7021-8 #### [facility] CLIA [id number] [address] [place] [address] [place] Lymphocytes (Bld) [#/Vol] 0.65 10*3/uL Low 1.00-4.00 [facility] Comment on above: Order Comment: Speci men Type: BLOOD SPECIMEN Ordering Facility: [facility] Address: [address] [place] [address] Performed By: #### 5 7021-8 #### [facility] CLIA [id number] [address] Lymphocytes/100 WBC (Bld) 13.7 % Normal [facility] Comment on above: Order Comment: Speci men Type: BLOOD SPECIMEN Ordering Facility: [facility] Address: [address] [place] [address] Performed By: #### 5 7021-8 #### [facility] CLIA [id number] [address] [place] MCH (RBC) [Entitic mass] 27.0 pg Normal 26.0-34.0 [facility] Comment on above: Order Comment: Speci men Type: BLOOD SPECIMEN Ordering Facility: [facility] Address: [address] [place] [address] Performed By: #### 5 7021-8 #### [facility] CLIA [id number] [address] [place] MCHC (RBC) [Mass/Vol] 32.9 g/dL Normal 30.5-36.0 [facility] Comment on above: Order Comment: Speci men Type: BLOOD SPECIMEN Ordering Facility: [facility] Address: [address] [place] [address] Performed By: #### 5 7021-8 #### [facility] CLIA [id number] [address] MCV (RBC) [Entitic vol] 82.3 fL Normal 80.0-100.0 [facility] Comment on above: Order Comment: Speci men Type: BLOOD SPECIMEN Ordering Facility: [facility] Address: [address] [place] [address] Performed By: #### 5 7021-8 #### [facility] CLIA [id number] [address] Monocytes (Bld) [#/Vol] 0.36 10*3/uL Normal <0.87 [facility] Comment on above: Order Comment: Speci men Type: BLOOD SPECIMEN Ordering Facility: [facility] Address: [address] [place] [address] Performed By: #### 5 7021-8 #### [facility] CLIA [id number] [address] [place] [address] [place] Monocytes/100 WBC (Bld) 7.6 % Normal [facility] Comment on above: Order Comment: Speci men Type: BLOOD SPECIMEN Ordering Facility: [facility] Address: [address] [place] [address] Performed By: #### 5 7021-8 #### [facility] CLIA [id number] [address] [place] [address] [place] Neutrophils (Bld) [#/Vol] 3.67 10*3/uL Normal 1.45-7.50 [facility] Comment on above: Order Comment: Speci men Type: BLOOD SPECIMEN Ordering Facility: [facility] Address: [address] [place] [address] Performed By: #### 5 7021-8 #### [facility] CLIA [id number] [address] [place] Neutrophils/100 WBC (Bld) 77.3 % Normal [facility] Comment on above: Order Comment: Speci men Type: BLOOD SPECIMEN Ordering Facility: [facility] Address: [address] [place] [address] Performed By: #### 5 7021-8 #### [facility] CLIA [id number] [address] [place] [address] [place] Nucleated RBC (Bld) [#/Vol] 10*3/uL Normal <0.01 [facility] Comment on above: Order Comment: Speci men Type: BLOOD SPECIMEN Ordering Facility: [facility] Address: [address] [place] [address] Performed By: #### 5 7021-8 #### [facility] CLIA [id number] [address] [place] [address] [place] Nucleated RBC/100 WBC (Bld) [Ratio] 0.0 /100 WBC Normal [facility] Comment on above: Order Comment: Speci men Type: BLOOD SPECIMEN Ordering Facility: [facility] Address: [address] [place] [address] Performed By: #### 5 7021-8 #### [facility] CLIA [id number] [address] [place] [address] [place] Platelet mean volume (Bld) [Entitic vol] 10.6 fL Normal 9.0-12.7 [facility] Comment on above: Order Comment: Speci men Type: BLOOD SPECIMEN Ordering Facility: [facility] Address: [address] [place] [address] Performed By: #### 5 7021-8 #### [facility] CLIA [id number] [address] [place] [address] [place] Platelets (Bld) [#/Vol] 299 10*3/uL Normal 150-400 [facility] Comment on above: Order Comment: Speci men Type: BLOOD SPECIMEN Ordering Facility: [facility] Address: [address] [place] [address] Performed By: #### 5 7021-8 #### [facility] CLIA [id number] [address] [place] [address] [place] RBC (Bld) [#/Vol] 3.55 10*6/uL Low 3.90-5.20 [facility] Comment on above: Order Comment: Speci men Type: BLOOD SPECIMEN Ordering Facility: [facility] Address: [address] [place] [address] Performed By: #### 5 7021-8 #### [facility] CLIA [id number] [address] OF [facility] WBC (Bld) [#/Vol] 4.75 10*3/uL Normal 3.70-11.00 [facility] Comment on above: Order Comment: Speci men Type: BLOOD SPECIMEN Ordering Facility: [facility] Address: [address] [place] [address] Performed By: #### 5 7021-8 #### [facility] CLIA [id number] [address] [place] Comprehensive metabolic 2000 panelon 08-16-2024 Albumin [Mass/Vol] 3.9 g/dL Normal 3.9-4.9 [facility] Comment on above: Order Comment: Speci men Type: BLOOD SPECIMEN Ordering Facility: [facility] Address: [address] [place] [id number] Performed By: #### 2 4323-8, 3016-3 #### [facility] CLIA [id number] [address] [place] [address] [place] ALP [Catalytic activity/Vol] 81 U/L Normal 34-123 [facility] Comment on above: Order Comment: Speci men Type: BLOOD SPECIMEN Ordering Facility: [facility] Address: [address] [place] [id number] Performed By: #### 2 4323-8, 3016-3 #### [facility] CLIA [id number] [address] [place] [address] [place] ALT [Catalytic activity/Vol] 27 U/L Normal 7-38 [facility] Comment on above: Order Comment: Speci men Type: BLOOD SPECIMEN Ordering Facility: [facility] Address: [address] [place] [address] Performed By: #### 2 4323-8, 3016-3 #### [facility] CLIA [id number] [address] [place] [address] [place] Anion gap [Moles/Vol] 11 mmol/L Normal 8-15 [facility] Comment on above: Order Comment: Speci men Type: BLOOD SPECIMEN Ordering Facility: [facility] Address: [address] [place] [address] Performed By: #### 2 4323-8, 3016-3 #### [facility] CLIA [id number] [address] [place] AST [Catalytic activity/Vol] 20 U/L Normal 13-35 [facility] Comment on above: Order Comment: Speci men Type: BLOOD SPECIMEN Ordering Facility: [facility] Address: [address] [place] [id number] Performed By: #### 2 4323-8, 3016-3 #### [facility] CLIA [id number] [address] [place] [address] [place] Bilirubin [Mass/Vol] mg/dL Low 0.2-1.3 [facility] Comment on above: Order Comment: Speci men Type: BLOOD SPECIMEN Ordering Facility: [facility] Address: [address] [place] [address] Performed By: #### 2 4323-8, 3016-3 #### [facility] CLIA [id number] [address] [place] [address] [place] Calcium [Mass/Vol] 9.5 mg/dL Normal 8.5-10.2 [facility] Comment on above: Order Comment: Speci men Type: BLOOD SPECIMEN Ordering Facility: [facility] Address: [address] [place] [address] Performed By: #### 2 4323-8, 6-3 #### [facility] CLIA [id number] [address] [place] [address] [place] Chloride [Moles/Vol] 94 mmol/L Low 98-107 [facility] Comment on above: Order Comment: Speci men Type: BLOOD SPECIMEN Ordering Facility: [facility] Address: [facility] [place] [address] Performed By: #### 2 4323-8, 6-3 #### [facility] CLIA [id number] [address] [place] [address] [place] CO2 [Moles/Vol] 26 mmol/L Normal 22-30 [facility] Comment on above: Order Comment: Speci men Type: BLOOD SPECIMEN Ordering Facility: [facility] Address: [facility] [place] [address] Performed By: #### 2 4323-8, 6-3 #### [facility] CLIA [id number] [address] [place] [address] [place] Creatinine [Mass/Vol] 0.59 mg/dL Normal 0.58-0.96 [facility] Comment on above: Order Comment: Speci men Type: BLOOD SPECIMEN Ordering Facility: [facility] Address: [address] [place] [address] Performed By: #### 2 4323-8, 3016-3 #### [facility] CLIA [id number] [address] [place] [address] [facility] [place] Creatinine and Glomerular filtration rate.predicted panel (S/P/Bld) 104 mL/min/1.73m??? Normal >=60 [facility] Comment on above: Order Comment: Soraida monique Type: BLOOD SPECIMEN Ordering Facility: [facility] Address: [address] [place] [address] Result Comment: Jannet mated Glomerular Filtration Rate (eGFR) is calculated using the 2020 CKD-EPI creatinine equation. This equation utilizes serum creatinine, sex, and age as parameters. The creatinine assay has traceable calibration to isotope dilution-mass spectrometry. Refer to KDIGO guidelines for clinical interpretation. In patients with unstable renal function, e.g. those with acute kidney injury, the eGFR may not accurately reflect actual GFR. Performed By: #### 2 4323-8, 3016-3 #### [facility] CLIA [id number] [address] [place] [address] [place] Glucose [Mass/Vol] 102 mg/dL High 74-99 [facility] Comment on above: Order Comment: Soraida monique Type: BLOOD SPECIMEN Ordering Facility: [facility] Address: [address] [place] [address] Result Comment: The [place] [employer] (ADA) provides guidance for cutoff values for fasting glucose and random glucose. The ADA defines fasting as no caloric intake for at least 8 hours. Fasting plasma glucose results between 100 to 125 mg/dL indicate increased risk for diabetes (prediabetes). Fasting plasma glucose results greater than or equal to 126 mg/dL meet the criteria for diagnosis of diabetes. In the absence of unequivocal hyperglycemia, results should be confirmed by repeat testing. In a patient with classic symptoms of hyperglycemia or hyperglycemic crisis, random plasma glucose results greater than or equal to 200 mg/dL meet the criteria for diagnosis of diabetes. Reference: Standards of Medical Care in Diabetes 2016, [place] [employer]. Diabetes Care. 2016.39(Suppl 1). Performed By: #### 2 4323-8, 3016-3 #### [facility] CLIA [id number] [address] [place] [id number] [place] Potassium [Moles/Vol] 4.0 mmol/L Normal 3.7-5.1 [facility] Comment on above: Order Comment: Soraida monique Type: BLOOD SPECIMEN Ordering Facility: [facility] Address: [address] [place] [address] Performed By: #### 2 4323-8, 3016-3 #### [facility] CLIA [id number] [address] [place] Protein [Mass/Vol] 6.4 g/dL Normal 6.3-8.0 [facility] Comment on above: Order Comment: Speci men Type: BLOOD SPECIMEN Ordering Facility: [facility] Address: [address] [place] [address] Performed By: #### 2 4323-8, 3016-3 #### [facility] CLIA [id number] [address] [place] Sodium [Moles/Vol] 131 mmol/L Low 136-144 [facility] Comment on above: Order Comment: Speci men Type: BLOOD SPECIMEN Ordering Facility: [facility] Address: [address] [place] [address] Performed By: #### 2 4323-8, 3016-3 #### [facility] CLIA [id number] [address] STATES [facility] Urea nitrogen [Mass/Vol] 43 mg/dL High 7-21 [facility] Comment on above: Order Comment: Speci men Type: BLOOD SPECIMEN Ordering Facility: [facility] Address: [address] [place] [address] Performed By: #### 2 4323-8, 3016-3 #### [facility] CLIA [id number] [address] IMMUNOFIXATION SCREEN, SERUM on 08-16-2024 MPA RESULT No M protein is identified. Normal No M protein is identified. [facility] Comment on above: Order Comment: Speci men Type: BLOOD SPECIMEN Ordering Facility: [facility] Address: [address] [place] [address] Performed By: #### 5 7021-8 #### [facility] CLIA [id number] [address] STAFF REVIEW (MPA) Reviewed by Yoni Bowles MD, Ph.D ([id number]) Normal [facility] Comment on above: Order Comment: Speci men Type: BLOOD SPECIMEN Ordering Facility: [facility] Address: [address] [place], [place] [address] Performed By: #### 5 7021-8 #### [facility] CLIA [id number] [address] [place] [address] [place] IMMUNOGLOBULINS,IGG,IGA,IGMo n 08-16-2024 IgA [Mass/Vol] 35 mg/dL Low 70-400 [facility] Comment on above: Order Comment: Speci men Type: BLOOD SPECIMEN Ordering Facility: [facility] Address: [address] [place] [address] Performed By: #### S ERIMM #### [facility] CLIA [id number] [address] [place] [address] [place] IgG [Mass/Vol] 520 mg/dL Low 700-1600 [facility] Comment on above: Order Comment: Speci men Type: BLOOD SPECIMEN Ordering Facility: [facility] Address: [address] [place] [address] Performed By: #### S ERIMM #### [facility] CLIA [id number] [address] [place] [address] [place] IgM [Mass/Vol] 27 mg/dL Low 40-230 [facility] Comment on above: Order Comment: Speci men Type: BLOOD SPECIMEN Ordering Facility: [facility] Address: [address] [place] [address] Performed By: #### S ERIMM #### [facility] CLIA [id number] [address] [place] [address] [place] KAPPA/VIVEROS,FREE,SERon 2024 Immunoglobulin light chains.kappa.free (S) [Mass/Vol] 17.0 mg/L Normal 3.3-19.4 [facility] Comment on above: Order Comment: Speci men Type: BLOOD SPECIMEN Ordering Facility: [facility] Address: [address] [place] [address] Result Comment: Rare ly, increased serum free light chains levels may not be detected or accurately quantified due to prozone phenomenon or in high viscosity samples using this immunoturbidimetric assay. Correlation with other laboratory results and clinical findings is recommended. The [place] Free Light Chain was performed using the Binding Site Optilite immunoturbidimetric method. Result obtained with different assay methods or kits cannot be used interchangeably. Performed By: #### K LFRS #### [facility] CLIA [id number] [address] [place] [address] [place] Immunoglobulin light chains.kappa/Immunoglobu dariana light chains.lambda (S) [Mass ratio] 0.11 Low 0.26-1.65 [facility] Comment on above: Order Comment: Speci men Type: BLOOD SPECIMEN Ordering Facility: [facility] Address: [address] [place] [address] Performed By: #### K LFRS #### [facility] CLIA [id number] [address] [place] [address] [place] Immunoglobulin light chains.lambda.free [Mass/Vol] 148.8 mg/L High 5.7-26.3 [facility] Comment on above: Order Comment: Speci men Type: BLOOD SPECIMEN Ordering Facility: [facility] Address: [address] [place] [address] Result Comment: Rare ly, increased serum free light chains levels may not be detected or accurately quantified due to prozone phenomenon or in high viscosity samples using this immunoturbidimetric assay. Correlation with other laboratory results and clinical findings is recommended. The [place] Free Light Chain was performed using the Binding Site Optilite immunoturbidimetric method. Result obtained with different assay methods or kits cannot be used interchangeably. Performed By: #### K LFRS #### [facility] CLIA [id number] [address] [place] [address] [place] LDH SerPl-cCncon 08-16-2024 LDH [Catalytic activity/Vol] 185 U/L Normal 135-214 [facility] Comment on above: Order Comment: Speci men Type: BLOOD SPECIMEN Ordering Facility: [facility] Address: [address] [place] [address] Performed By: #### 3 051-0, 2532-0, 2885-2, 3024-7 #### [facility] CLIA [id number] [address] [place] [address] [place] MONOCLONAL PROT UR W/INTERPo n 08-16-2024 INTERPRETATION (PA) Poorly defined reg ion of region of restricted mobility in the lambda fadi. Pattern is less well defined or fainter than typically seen in monoclonal gammopathy. This could represent either an atypical presentation of polyclonal immunoglobulins or the presence of a low level lambda containing monoclonal gammopathy. If clinically indicated, serum monoclonal protein analysis and serum free light chain measurements are recommended to evaluate further for monoclonal gammopathy. Clinical correlation is necessary. [facility] Comment on above: Order Comment: Soraida monique Type: BLOOD SPECIMEN Ordering Facility: [facility] Address: [address] [place] [address] Performed By: #### 5 7021-8 #### [facility] CLIA [id number] [address] STAFF REVIEW [facility] Reviewed by Shauna Pedraza MD [facility] Comment on above: Order Comment: Soraida monique Type: BLOOD SPECIMEN Ordering Facility: [facility] Address: [address] [place] [address] Performed By: #### 5 7021-8 #### [facility] CLIA [id number] [address] UMPA RESULT A poorly defined reg ion of restricted mobility is present that may represent an M protein. Abnormal No M protein is identified. [facility] Comment on above: Order Comment: Soraida monique Type: BLOOD SPECIMEN Ordering Facility: [facility] Address: [address] [place] [address] Performed By: #### 5 7021-8 #### [facility] CLIA [id number] [address] PROTEIN ELECTROPHORESIS SERU M (P)on 08-16-2024 Albumin [Mass/Vol] 3.80 g/dL Normal 3.43-5.41 [facility] Comment on above: Order Comment: Soraida monique Type: BLOOD SPECIMEN Ordering Facility: [facility] Address: [address] [place] [address] Performed By: #### L [id number] #### [facility] CLIA [id number] [address] [place] [address] [place] Alpha 1 globulin Elph [Mass/Vol] 0.29 g/dL Normal 0.18-0.43 [facility] Comment on above: Order Comment: Speci men Type: BLOOD SPECIMEN Ordering Facility: [facility] Address: [address] [place] [address] Performed By: #### L [id number] #### [facility] CLIA [id number] [address] [place] [address] [place] Alpha 2 globulin Elph [Mass/Vol] 0.54 g/dL Normal 0.42-0.98 [facility] Comment on above: Order Comment: Speci men Type: BLOOD SPECIMEN Ordering Facility: [facility] Address: [address] [place] [address] Performed By: #### L [id number] #### [facility] CLIA [id number] [address] [place] [address] [place] Beta globulin Elph [Mass/Vol] 0.62 g/dL Normal 0.61-1.17 [facility] Comment on above: Order Comment: Speci men Type: BLOOD SPECIMEN Ordering Facility: [facility] Address: [address] [place] [address] Performed By: #### L [id number] #### [facility] CLIA [id number] [address] [place] [address] [place] Gamma globulin Elph [Mass/Vol] 0.45 g/dL Low 0.53-1.51 [facility] Comment on above: Order Comment: Speci men Type: BLOOD SPECIMEN Ordering Facility: [facility] Address: [address] [place] [address] Performed By: #### L [id number] #### [facility] CLIA [id number] [address] [place] [address] [place] INTERPRETATION COMMENT FOR PROTEIN ELECTROPHORESIS Hypogammaglobulinemia is present, which can be seen in the setting of monoclonal gammopathy. If clinically indicated, monoclonal protein analysis and serum free light chain analysis are suggested to evaluate further for monoclonal gammopathy. Normal [facility] Comment on above: Order Comment: Specthiago monique Type: BLOOD SPECIMEN Ordering Facility: [facility] Address: [address] [place] [address] Performed By: #### L [id number] #### [facility] CLIA [id number] [address] [place] [address] [place] M-PROTEIN LOCATION Normal [facility] Comment on above: Order Comment: Soraida [facility] Type: BLOOD SPECIMEN Ordering Facility: [facility] Address: [address] [place] [address] Result Comment: Not Applicable. Performed By: #### L [id number] #### [facility] CLIA [id number] [address] [place] [address] [place] Protein Fractions [Interp] No definitive M protein is identified on protein electrophoresis. Normal No definitive M protein is identified on protein electrophore sis. [facility] Comment on above: Order Comment: Soraida [facility] Type: BLOOD SPECIMEN Ordering Facility: [facility] Address: [address] [place] [address] Performed By: #### L [id number] #### [facility] CLIA [id number] [address] [place] [address] [place] Protein.monoclonal Elph [Mass/Vol] 0.00 g/dL Normal <=0.00 [facility] Comment on above: Order Comment: Sandiei [facility] Type: BLOOD SPECIMEN Ordering Facility: [facility] Address: [address] [place] [address] Performed By: #### L [id number] #### [facility] CLIA [id number] [address] [place] [address] [place] SPE STAFF REVIEW Reviewed by Yoni Bowles MD, Ph.D ([id number]) [facility] Comment on above: Order Comment: Speci men Type: BLOOD SPECIMEN Ordering Facility: [facility] Address: [address] [place] [address] Performed By: #### L [id number] #### [facility] CLIA [id number] [address] [place] [address] [place] Prot SerPl-mCncon 08-16-2024 Protein [Mass/Vol] 5.7 g/dL Low 6.3-8.0 [facility] Comment on above: Order Comment: Speci men Type: BLOOD SPECIMEN Ordering Facility: [facility] Address: [address] [place] [address] Performed By: #### 3 051-0, 2532-0, 2885-2, 3024-7 #### [facility] CLIA [id number] [address] [place] [address] [place] Prot Ur-mCncon 08-16-2024 Protein (U) [Mass/Vol] mg/dL Normal 0-20 [facility] Comment on above: Order Comment: Speci men Type: BLOOD SPECIMEN Ordering Facility: [facility] Address: [address] [place] [address] Performed By: #### 5 7021-8 #### [facility] CLIA [id number] [address] [place] [address] [place] T3Free SerPl-mCncon 08-17-19 25 Free T3 [Mass/Vol] 1.4 pg/mL Low 2.3-4.1 [facility] Comment on above: Order Comment: Speci men Type: BLOOD SPECIMEN Ordering Facility: [facility] Address: [address] [place] [address] Performed By: #### 3 051-0, 2532-0, 2885-2, 3024-7 #### [facility] CLIA [id number] [address] [place] [address] [place] T4 Free SerPl-mCncon 025 Free T4 [Mass/Vol] 0.9 ng/dL Normal 0.9-1.7 [facility] Comment on above: Order Comment: Speci men Type: BLOOD SPECIMEN Ordering Facility: [facility] Address: [address] [place] [address] Performed By: #### 3 051-0, 2532-0, 2885-2, 3024-7 #### [facility] CLIA [id number] [address] [place] [address] [place] TSH SerPl-aCncon 08-16-2024 TSH Qn 2.050 m[IU]/L Normal 0.270-4.200 [facility] Comment on above: Order Comment: Speci men Type: BLOOD SPECIMEN Ordering Facility: [facility] Address: [address] [place] [address] Performed By: #### 5 7021-8 #### [facility] CLIA [id number] [address] [place] [address] [place] URINE PROTEIN ELECTROPHORESI S RANDOM (P)on 08-16-2024 Albumin Elph (U) [Mass fraction] 29.73 % Normal [facility] Comment on above: Order Comment: Speci men Type: URINE SPECIMEN Ordering Facility: [facility] Address: [address] [place] [address] Performed By: #### L [id number] #### [facility] CLIA [id number] [address] [place] [address] [place] Alpha 1 globulin Elph (U) [Mass fraction] 5.72 % Normal [facility] Comment on above: Order Comment: Speci men Type: URINE SPECIMEN Ordering Facility: [facility] Address: [address] [place] [address] Performed By: #### L [id number] #### [facility] CLIA [id number] [address] [place] [address] [place] Alpha 2 globulin Elph (U) [Mass fraction] 11.91 % Normal [facility] Comment on above: Order Comment: Speci men Type: URINE SPECIMEN Ordering Facility: [facility] Address: [address] [place] [address] Performed By: #### L [id number] #### [facility] CLIA [id number] [address] [place] [address] [place] Beta globulin Elph (U) [Mass fraction] 35.18 % Normal [facility] Comment on above: Order Comment: Speci men Type: URINE SPECIMEN Ordering Facility: [facility] Address: [address] [place] [address] Performed By: #### L [id number] #### [facility] CLIA [id number] [address] [place] [address] [place] Gamma globulin Elph (U) [Mass fraction] 17.45 % Normal [facility] Comment on above: Order Comment: Speci men Type: URINE SPECIMEN Ordering Facility: [facility] Address: [address] [place] [address] Performed By: #### L [id number] #### [facility] CLIA [id number] [address] [place] [address] [place] INTERPRETATION COMMENT FOR PROTEIN ELECTROPHORESIS The atypical region is relatively poorly defined and may represent an unusual presentation of polyclonal immunoglobulins, but cannot rule out the presence of a low level M protein. If clinically indicated, monoclonal protein analysis and serum free light chain analysis are suggested to evaluate further for monoclonal gammopathy. Normal [facility] Comment on above: Order Comment: [facility] Type: URINE SPECIMEN Ordering Facility: [facility] Address: [address] [place] [address] Performed By: #### L [id number] #### [facility] CLIA [id number] [address] [place] [address] [place] Protein Fractions Elph Shayne (U) [Interp] An atypical region of restricted mobility is identified on protein electrophoresis. Abnormal No definitive M protein is identified on protein electrophore sis. [facility] Comment on above: Order Comment: Spec men Type: URINE SPECIMEN Ordering Facility: [facility] Address: [address] [place] [address] Performed By: #### L [id number] #### [facility] CLIA [id number] [address] [place] [address] [place] STAFF REVIEW (URINE ELECTRO) Reviewed by Shauna Pedraza MD [facility] Comment on above: Order Comment: Speci men Type: URINE SPECIMEN Ordering Facility: [facility] Address: [address] [place] [address] Performed By: #### L [id number] #### [facility] CLIA [id number] [address] [place] [address] [place] [id number] 07-24-2024 [id number] HNO ID: [id number] Author: YNES TSANG RN Service: ? Author Type: Registered Nurse Type: [id number] Filed: 07/24/2024 10:09 Note Text: The patient received a copy of Colonoscopy discharge instructions that contain information for how to contact the physician who performed the procedure and when to seek medical care. Normal [facility] Colonoscopyon 07-24-2024 Colonoscopy [facility] Gastrointestinal Endoscopy Patient Name: Haley Glez Procedure Date: 07/24/2024 9:12 AM Date of : 1965 Admit Type: Outpatient Age: 59 Gender: Female Note Status: Finalized Procedure: Colonoscopy - diagnostic Indications: Hematochezia, Iron deficiency anemia Providers: Jenna Shankar MD Patient Profile: Refer to note in patient chart for documentation of history and physical. Last Colonoscopy: 2022. Referring Physician: Johanna Mandel (Referring MD) Medicines: Fentanyl 50 micrograms IV, See the other procedure note for documentation of the administered medications Complications: No immediate complications. Requesting Provider: Procedure: Pre-Anesthesia Assessment: - Prior to the procedure, a History and Physical was performed, and patient medications and allergies were reviewed. The patient is competent. The risks and benefits of the procedure and the sedation options and risks were discussed with the patient. All questions were answered and informed consent was obtained. Patient identification and proposed procedure were verified by the physician in the pre-procedure area. Mental Status Examination: alert and oriented. Airway Examination: normal oropharyngeal airway and neck mobility. Respiratory Examination: clear to auscultation. CV Examination: normal. Prophylactic Antibiotics: The patient does not require prophylactic antibiotics. Prior Anticoagulants: The patient has taken no anticoagulant or antiplatelet agents. ASA Grade Assessment: III - A patient with severe systemic disease. After reviewing the risks and benefits, the patient was deemed in satisfactory condition to undergo the procedure. The anesthesia plan was to use moderate sedation / analgesia (conscious sedation). Immediately prior to administration of medications, the patient was re-assessed for adequacy to receive sedatives. The heart rate, respiratory rate, oxygen saturations, blood pressure, adequacy of pulmonary ventilation, and response to care were monitored throughout the procedure. The physical status of the patient was re-assessed after the procedure. After I obtained informed consent, the scope was passed under direct vision. Throughout the procedure, the patient's blood pressure, pulse, and oxygen saturations were monitored continuously. The Colonoscope was introduced through the anus and advanced to the cecum, identified by the appendiceal orifice, IC valve and transillumination. The colonoscopy was performed without difficulty. The patient tolerated the procedure well. The quality of the bowel preparation was adequate to identify polyps greater than 5 mm in size. The appendiceal orifice and the rectum were photographed. Moderate Sedation: The administration of moderate sedation was initiated at 09:24. Moderate (conscious) sedation was personally administered by the endoscopist. The following parameters were monitored: oxygen saturation, heart rate, blood pressure, respiratory rate, EKG, adequacy of pulmonary ventilation, and response to care. See the other procedure note for documentation of moderate sedation with intraservice time. Findings: The perianal and digital rectal examinations were normal. Non-bleeding internal hemorrhoids were found. Impression: - Non-bleeding internal hemorrhoids. - No specimens collected. Recommendation: - Repeat colonoscopy in 5-10 years for screening purposes. - Return to referring provider PRN. - Patient has a contact number available for emergencies. The signs and symptoms of potential delayed complications were discussed with the patient. Return to normal activities tomorrow. Written discharge instructions were provided to the patient. - Continue present medications. - Resume previous diet. Procedure Code(s): --- Professional --- 48235, Colonoscopy, flexible; diagnostic, including collection of specimen(s) by brushing or washing, when performed (separate procedure) Diagnosis Code(s): --- Professional --- D50.9, Iron deficiency anemia, unspecified K92.1, Melena (includes Hematochezia) K64.8, Other hemorrhoids CPT copyright 2020 [employer]. All rights reserved. The codes documented in this report are preliminary and upon lumber racker review may be revised to meet current compliance requirements. Attending Participation: I personally performed the entire procedure. Scope In: 9:38:15 AM Scope Out: 9:54:36 AM MD Jenna Benoit MD 07/24/2024 9:58:07 AM This report has been signed electronically by Jenna Shankar MD Number of Addenda: 0 Note Initiated On: 07/24/2024 9:12 AM Estimated Blood Loss: Estimated blood loss: none. Normal [facility] EGD Study observation Narrat demetrio 07-24-2024 [place] [facility] Gastrointestinal Endoscopy Patient Name: Haley Glez Procedure Date: 07/24/2024 9:12 AM Date of : 1965 Admit Type: Outpatient Age: 59 Gender: Female Note Status: Finalized Procedure: Upper GI endoscopy Indications: Iron deficiency anemia Providers: Jenna Shankar MD Patient Profile: Refer to note in patient chart for documentation of history and physical. Referring Physician: Johanna Mandel (Referring MD) Medicines: Midazolam 5 mg IV, Fentanyl 50 micrograms IV, Diphenhydramine 50 mg IV, Benzocaine spray, See the other procedure note for documentation of the administered medications Complications: No immediate complications. Requesting Provider: Procedure: Pre-Anesthesia Assessment: - Prior to the procedure, a History and Physical was performed, and patient medications and allergies were reviewed. The patient is competent. The risks and benefits of the procedure and the sedation options and risks were discussed with the patient. All questions were answered and informed consent was obtained. Patient identification and proposed procedure were verified by the physician in the pre-procedure area. Mental Status Examination: alert and oriented. Airway Examination: normal oropharyngeal airway and neck mobility. Respiratory Examination: clear to auscultation. CV Examination: normal. Prophylactic Antibiotics: The patient does not require prophylactic antibiotics. Prior Anticoagulants: The patient has taken no anticoagulant or antiplatelet agents. ASA Grade Assessment: III - A patient with severe systemic disease. After reviewing the risks and benefits, the patient was deemed in satisfactory condition to undergo the procedure. The anesthesia plan was to use moderate sedation / analgesia (conscious sedation). Immediately prior to administration of medications, the patient was re-assessed for adequacy to receive sedatives. The heart rate, respiratory rate, oxygen saturations, blood pressure, adequacy of pulmonary ventilation, and response to care were monitored throughout the procedure. The physical status of the patient was re-assessed after the procedure. After obtaining informed consent, the endoscope was passed under direct vision. Throughout the procedure, the patient's blood pressure, pulse, and oxygen saturations were monitored continuously. The Endoscope was introduced through the mouth, and advanced to the second part of duodenum. The upper GI endoscopy was accomplished without difficulty. The patient tolerated the procedure well. Moderate Sedation: The administration of moderate sedation was initiated at 09:24. Moderate (conscious) sedation was personally administered by the endoscopist. The following parameters were monitored: oxygen saturation, heart rate, blood pressure, respiratory rate, EKG, adequacy of pulmonary ventilation, and response to care. See the other procedure note for documentation of moderate sedation with intraservice time. Findings: The first portion of the duodenum and second portion of the duodenum were normal. The entire examined stomach was normal. Biopsies were taken with a cold forceps for Helicobacter pylori testing. Verification of patient identification for the specimen was done by the nurse. Estimated blood loss was minimal. A small hiatal hernia was present. Impression: - Normal first portion of the duodenum and second portion of the duodenum. - Normal stomach. Biopsied. - Small hiatal hernia. Recommendation: - Discharge patient to home (ambulatory). - Resume previous diet. - Continue present medications. - Await pathology results. - - May Follow up with Joselyn Rojas NP, ([phone]) (more content not included)... PROVATION [facility] Flexible sigmoidoscopy study on 07-24-2024 [facility] Gastrointestinal Endoscopy Patient Name: Haley Glez Procedure Date: 07/24/2024 9:12 AM Date of : 1965 Admit Type: Outpatient Age: 59 Gender: Female Note Status: Finalized Procedure: Colonoscopy - diagnostic Indications: Hematochezia, Iron deficiency anemia Providers: Jenna Shankar MD Patient Profile: Refer to note in patient chart for documentation of history and physical. Last Colonoscopy: 2022. Referring Physician: Johanna Mandel (Referring MD) Medicines: Fentanyl 50 micrograms IV, See the other procedure note for documentation of the administered medications Complications: No immediate complications. Requesting Provider: Procedure: Pre-Anesthesia Assessment: - Prior to the procedure, a History and Physical was performed, and patient medications and allergies were reviewed. The patient is competent. The risks and benefits of the procedure and the sedation options and risks were discussed with the patient. All questions were answered and informed consent was obtained. Patient identification and proposed procedure were verified by the physician in the pre-procedure area. Mental Status Examination: alert and oriented. Airway Examination: normal oropharyngeal airway and neck mobility. Respiratory Examination: clear to auscultation. CV Examination: normal. Prophylactic Antibiotics: The patient does not require prophylactic antibiotics. Prior Anticoagulants: The patient has taken no anticoagulant or antiplatelet agents. ASA Grade Assessment: III - A patient with severe systemic disease. After reviewing the risks and benefits, the patient was deemed in satisfactory condition to undergo the procedure. The anesthesia plan was to use moderate sedation / analgesia (conscious sedation). Immediately prior to administration of medications, the patient was re-assessed for adequacy to receive sedatives. The heart rate, respiratory rate, oxygen saturations, blood pressure, adequacy of pulmonary ventilation, and response to care were monitored throughout the procedure. The physical status of the patient was re-assessed after the procedure. After I obtained informed consent, the scope was passed under direct vision. Throughout the procedure, the patient's blood pressure, pulse, and oxygen saturations were monitored continuously. The Colonoscope was introduced through the anus and advanced to the cecum, identified by the appendiceal orifice, IC valve and transillumination. The colonoscopy was performed without difficulty. The patient tolerated the procedure well. The quality of the bowel preparation was adequate to identify polyps greater than 5 mm in size. The appendiceal orifice and the rectum were photographed. Moderate Sedation: The administration of moderate sedation was initiated at 09:24. Moderate (conscious) sedation was personally administered by the endoscopist. The following parameters were monitored: oxygen saturation, heart rate, blood pressure, respiratory rate, EKG, adequacy of pulmonary ventilation, and response to care. See the other procedure note for documentation of moderate sedation with intraservice time. Findings: The perianal and digital rectal examinations were normal. Non-bleeding internal hemorrhoids were found. Impression: - Non-bleeding internal hemorrhoids. - No specimens collected. Recommendation: - Repeat colonoscopy in 5-10 years for screening purposes. - Return to referring provider PRN. - Patient has a contact number available for emergencies. The signs and symptoms of potential delayed complications were discussed with the patient. Retur (more content not included)... [facility]ATION [facility] HISTORY PHYSICALon HISTORY PHYSICAL HNO ID: [id number] Author: JENNA SHANKAR MD Service: General Surgery Author Type: Physician Type: H&P Filed: 07/24/2024 08:30 Note Text: HISTORY AND PHYSICAL Haley Glez 1965 REFERRING PHYSICIAN: Johanna Mandel,* CHIEF COMPLAINT: No chief complaint on file. HPI: The patient is a 59 year old female here for upper and lower endoscopy for anemia Last colonoscopy - 2022 PAST MEDICAL HISTORY Diagnosis Date Anxiety state, unspecified Depressive disorder, not elsewhere classified IBS (irritable bowel syndrome) Multiple chemical sensitivity syndrome Small intestinal bacterial overgrowth (SIBO) PAST SURGICAL HISTORY Procedure Laterality Date TOOTH EXTRACTION Current Outpatient Medications Medication Sig ARMOUR THYROID 30 mg tablet Take 1 tablet 5 days a week. Take 2 tablets 2 days a week. OTC PRODUCT Food enzymes 3x daily acetylcysteine (ACET-CYS) Take 1,000 mg by mouth once daily. cholecalciferol, vitamin D3, (D3-2000 ORAL) Take 2,000 mg by mouth once daily. Lactobacillus acidophilus (PROBIOTIC) 10 billion cell cap Take 133 capsules by mouth daily at bedtime. No current facility-administered medications for this encounter. ALLERGIES: Amoxicillin, Codeine, Flavoring Agent (Bulk), Lactose, and Peppermint Flavor PERSONAL HISTORY: Social History Tobacco Use Smoking status: Never Smokeless tobacco: Never Vaping Use Vaping status: Never Used Substance Use Topics Alcohol use: No Drug use: No FAMILY HISTORY Problem Relation Age of Onset Osteoporosis Mother Heart Mother afib GI Father IBS Margot Disease Sister other (environmental sensitivities [Other]) Sister both sisters REVIEW OF SYMPTOMS: Denies chest pain Denies shortness of breath Physical examination: Vital signs in chart, reviewed and noted by me General - WD/WN in no apparent distress, alert and oriented Head - Normocephalic. EOM intact with sclera clear. Mouth with mucus membranes moist. Neck - supple with no jugular venous distention noted. Trachea is midline. Lungs - normal breath sounds, normal respiratory motion, no adventitial sounds noted. Heart - normal heart sounds. Regular rate. Abdomen - soft and benign. Extremities - no pitting edema noted. Skin - Normal skin integrity. Neurological - non focal Psych - calm and appropriate Impression: anemia Discussion/Plan/Recommen dations: I have discussed the above with the patient. I have offered colonoscopy and EGD, possible biopsies I have explained the procedure to the patient. I have counseled the patient as to the risks of the procedure, including but not limited to: infection, bleeding, injury to any intrabdominal organs such as liver/spleen, perforation of the GI tract, inability to complete the procedure, complications of anesthesia, etc. - the patient understands. The patient wishes to proceed. I have answered all questions to the patient?s satisfaction and the patient has no further questions. Jenna Shankar MD Normal [facility] No Panel Informationon 07-24 Radiology Study observation (narrative) [facility] Pathology biopsy report Shayne (Tiss)on 07-24-2024 ADDENDUM 1: Normal [facility] Comment on above: Order Comment: Speci men Type: TISSUE SPECIMENOrdering Facility: [facility] Address: [address] [place] [address] Result Comment: An i mmunohistochemical stain for Helicobacter pylori is negative. Addendum electronically signed by Oli Chavez MD on 07/27/2024 at 1211 EDT Performed By: #### 6 6121-5 ####[facility] LABCLIA [id number] [place] [address] [place] AP DISCLAIMER Normal [facility] Comment on above: Order Comment: Speci men Type: TISSUE SPECIMENOrdering Facility: [facility] Address: [address] [place] [address] Result Comment: Radhika rangel Developed Test (LDT) Disclaimer: Performance characteristics of immunohistochemical, immunofluorescent, and chromogenic in-situ hybridization tests have been determined by the performing laboratory within [facility]'s [facility] Pathology and Laboratory Medicine Department ([facility], [facility], [facility], [facility], [facility], [facility], or [facility]) in a manner consistent with CLIA requirements. One or more of these tests may not have been cleared or approved by the FDA. [facility] is regulated under CLIA as qualified to perform high-complexity testing. These tests are used for clinical purposes. These should not be regarded as investigational or for research. Positive and negative controls stain appropriately. Performed By: #### 6 6121-5 ####[facility] LABIA [id number] [place] [id number] [facility] [place] CASE REPORT Normal [facility] Comment on above: Order Comment: Speci men Type: TISSUE SPECIMENOrdering Facility: [facility] Address: [address] [place] [address] Result Comment: Surg [facility] Pathology Report Case: [id number] Authorizing Provider: Jenna Shankar MD Collected: 07/24/2024 09:31 AM Ordering Location: Ambulatory Surgery Received: 07/24/2024 02:54 PM Pathologist: Oli Chavez MD Specimen: Stomach, Antrum, Biopsy, Antral bx for H/H Performed By: #### 6 6121-5 ####[facility] LABIA [id number] [place] [id number] [facility] DIAGNOSIS COMMENT An immunohistochemic al stain for Helicobacter pylori has been ordered and the results will follow in an addendum. Normal [facility] Comment on above: Order Comment: Soraida monique Type: TISSUE SPECIMENOrdering Facility: [facility] Address: [address] [place] [address] Performed By: #### 6 6121-5 ####[facility] [id number] [address] [address] [facility] FINAL DIAGNOSIS Normal [facility] Comment on above: Order Comment: Soraida monique Type: TISSUE SPECIMENOrdering Facility: [facility] Address: [address] [place] [address] Result Comment: A. S tomach, antrum, biopsy: -Chronic inactive gastritis, gastric antral mucosa. at 1200 EDT Performed By: #### 6 6121-5 ####[facility] LABCLIA [id number] [place] [address] [place] FINAL PERFORMING LAB Normal [facility] Comment on above: Order Comment: Speci men Type: TISSUE SPECIMENOrdering Facility: [facility] Address: [address] [place] [address] Result Comment: Diag nostic interpretation performed at: [facility], [address] [place] [address] CLIA# [id number] Computer System Validation Specialist: Guillaume Tena MD Performed By: #### 6 6121-5 ####[facility] LABCLIA [id number] [address] OF [place] GROSS DESCRIPTION Normal [facility] Comment on above: Order Comment: Speci men Type: TISSUE SPECIMENOrdering Facility: [facility] Address: [address] [place] [address] Result Comment: A. S tomach, Antrum, Biopsy Received in formalin is one piece of grover-brown, soft tissue measuring 0.5 x 0.4 x 0.1 cm. Totally submitted in one cassette. Gross examination performed at [facility], [address] [place] [address] July 24, 2024 9:49 PM Performed By: #### 6 6121-5 ####[facility] LABCLIA [id number] [place] [address] [place] Upper GI endoscopyon 07-24-2 025 Upper GI endoscopy [facility] Gastrointestinal Endoscopy Patient Name: Haley Glez Procedure Date: 07/24/2024 9:12 AM Date of : 1965 Admit Type: Outpatient Age: 59 Gender: Female Note Status: Finalized Procedure: Upper GI endoscopy Indications: Iron deficiency anemia Providers: Jenna Shankar MD Patient Profile: Refer to note in patient chart for documentation of history and physical. Referring Physician: Johanna Mandel (Referring MD) Medicines: Midazolam 5 mg IV, Fentanyl 50 micrograms IV, Diphenhydramine 50 mg IV, Benzocaine spray, See the other procedure note for documentation of the administered medications Complications: No immediate complications. Requesting Provider: Procedure: Pre-Anesthesia Assessment: - Prior to the procedure, a History and Physical was performed, and patient medications and allergies were reviewed. The patient is competent. The risks and benefits of the procedure and the sedation options and risks were discussed with the patient. All questions were answered and informed consent was obtained. Patient identification and proposed procedure were verified by the physician in the pre-procedure area. Mental Status Examination: alert and oriented. Airway Examination: normal oropharyngeal airway and neck mobility. Respiratory Examination: clear to auscultation. CV Examination: normal. Prophylactic Antibiotics: The patient does not require prophylactic antibiotics. Prior Anticoagulants: The patient has taken no anticoagulant or antiplatelet agents. ASA Grade Assessment: III - A patient with severe systemic disease. After reviewing the risks and benefits, the patient was deemed in satisfactory condition to undergo the procedure. The anesthesia plan was to use moderate sedation / analgesia (conscious sedation). Immediately prior to administration of medications, the patient was re-assessed for adequacy to receive sedatives. The heart rate, respiratory rate, oxygen saturations, blood pressure, adequacy of pulmonary ventilation, and response to care were monitored throughout the procedure. The physical status of the patient was re-assessed after the procedure. After obtaining informed consent, the endoscope was passed under direct vision. Throughout the procedure, the patient's blood pressure, pulse, and oxygen saturations were monitored continuously. The Endoscope was introduced through the mouth, and advanced to the second part of duodenum. The upper GI endoscopy was accomplished without difficulty. The patient tolerated the procedure well. Moderate Sedation: The administration of moderate sedation was initiated at 09:24. Moderate (conscious) sedation was personally administered by the endoscopist. The following parameters were monitored: oxygen saturation, heart rate, blood pressure, respiratory rate, EKG, adequacy of pulmonary ventilation, and response to care. See the other procedure note for documentation of moderate sedation with intraservice time. Findings: The first portion of the duodenum and second portion of the duodenum were normal. The entire examined stomach was normal. Biopsies were taken with a cold forceps for Helicobacter pylori testing. Verification of patient identification for the specimen was done by the nurse. Estimated blood loss was minimal. A small hiatal hernia was present. Impression: - Normal first portion of the duodenum and second portion of the duodenum. - Normal stomach. Biopsied. - Small hiatal hernia. Recommendation: - Discharge patient to home (ambulatory). - Resume previous diet. - Continue present medications. - Await pathology results. - - May Follow up with Joselyn Rojas NP, may be via televisit for discussion of pathology results Procedure Code(s): --- Professional --- 35285, Esophagogastroduodenosco py, flexible, transoral; with biopsy, single or multiple Diagnosis Code(s): --- Professional --- D50.9, Iron deficiency anemia, unspecified K44.9, Diaphragmatic hernia without obstruction or gangrene CPT copyright 2020 [employer]. All rights reserved. The codes documented in this report are preliminary and upon lumber racker review may be revised to meet current compliance requirements. Attending Participation: I personally performed the entire procedure. Scope In: 9:29:44 AM Scope Out: 9:32:51 AM MD Jenna Benoit MD 07/24/2024 9:37:20 AM This report has been signed electronically by Jenna Shankar MD Number of Addenda: 0 Note Initiated On: 07/24/2024 9:12 AM Estimated Blood Loss: Estimated blood loss was minimal. Normal [facility] CBC W Auto Differential pane l (Bld)on 07-06-2024 Basophils (Bld) [#/Vol] 0.03 10*3/uL Normal <0.11 [facility] Comment on above: Order Comment: Speci men Type: BLOOD SPECIMENOrdering Facility: [facility] Address: [address] [place] [address] Performed By: #### 5 7021-8 ####[facility] [id number] [place] [address] [place] Basophils/100 WBC (Bld) 0.6 % Normal [facility] Comment on above: Order Comment: Speci men Type: BLOOD SPECIMENOrdering Facility: [facility] Address: [address] [place] [address] Performed By: #### 5 7021-8 ####[facility]USNCLIA [id number] [place] [address] [place] Differential cell count method Nom (Bld) Auto Normal [facility] Comment on above: Order Comment: Speci men Type: BLOOD SPECIMENOrdering Facility: [facility] Address: [address] [place] [address] Performed By: #### 5 7021-8 ####[facility] [id number] [place] [address] [place] Eosinophils (Bld) [#/Vol] 0.05 10*3/uL Normal <0.46 [facility] Comment on above: Order Comment: Speci men Type: BLOOD SPECIMENOrdering Facility: [facility] Address: [address] [place] [address] Performed By: #### 5 7021-8 ####[facility] [id number] [place] [address] [place] Eosinophils/100 WBC (Bld) 1.1 % Normal [facility] Comment on above: Order Comment: Speci men Type: BLOOD SPECIMENOrdering Facility: [facility] Address: [address] [place] [address] Performed By: #### 5 7021-8 ####[facility] [id number] [place] [address] [place] Erythrocyte distribution width (RBC) [Ratio] 23.8 % High 11.5-15.0 [facility] Comment on above: Order Comment: Speci men Type: BLOOD SPECIMENOrdering Facility: [facility] Address: [address] [place] [address] Performed By: #### 5 7021-8 ####[facility]USNCLIA [id number] [place] [address] [place] Hematocrit (Bld) [Volume fraction] 25.3 % Low 36.0-46.0 [facility] Comment on above: Order Comment: Speci men Type: BLOOD SPECIMENOrdering Facility: [facility] Address: [address] [place] [address] Performed By: #### 5 7021-8 ####[facility]USNCUN[facility] [id number] [place] [address] [place] Hemoglobin (Bld) [Mass/Vol] 8.2 g/dL Low 11.5-15.5 [facility] Comment on above: Order Comment: Speci men Type: BLOOD SPECIMENOrdering Facility: [facility] Address: [address] [place] [address] Performed By: #### 5 7021-8 ####[facility] [id number] [place] [address] [place] Immature granulocytes (Bld) [#/Vol] 10*3/uL Normal <0.10 [facility] Comment on above: Order Comment: Speci men Type: BLOOD SPECIMENOrdering Facility: [facility] Address: [address] [place] [address] Performed By: #### 5 7021-8 ####[facility] [id number] [place] [address] [place] Immature granulocytes/100 WBC (Bld) 0.2 % Normal [facility] Comment on above: Order Comment: Speci men Type: BLOOD SPECIMENOrdering Facility: [facility] Address: [address] [place] [address] Performed By: #### 5 7021-8 ####[facility] [id number] [place] [address] [place] Lymphocytes (Bld) [#/Vol] 0.65 10*3/uL Low 1.00-4.00 [facility] Comment on above: Order Comment: Speci men Type: BLOOD SPECIMENOrdering Facility: [facility] Address: [address] [place] [address] Performed By: #### 5 7021-8 ####[facility] CAMPUSALPHONSO [id number] [place] [address] [place] Lymphocytes/100 WBC (Bld) 13.7 % Normal [facility] Comment on above: Order Comment: Speci men Type: BLOOD SPECIMENOrdering Facility: [facility] Address: [address] [place] [address] Performed By: #### 5 7021-8 ####[facility] [id number] [place] [address] [place] MCH (RBC) [Entitic mass] 25.2 pg Low 26.0-34.0 [facility] Comment on above: Order Comment: Speci men Type: BLOOD SPECIMENOrdering Facility: [facility] Address: [address] [place] [address] Performed By: #### 5 7021-8 ####[facility] [id number] [place] [address] [place] MCHC (RBC) [Mass/Vol] 32.4 g/dL Normal 30.5-36.0 [facility] Comment on above: Order Comment: Speci men Type: BLOOD SPECIMENOrdering Facility: [facility] Address: [address] [place] [address] Performed By: #### 5 7021-8 ####[facility] CAMPUSNCLIA [id number] [place] [address] [place] MCV (RBC) [Entitic vol] 77.8 fL Low 80.0-100.[address] [facility] Comment on above: Order Comment: Speci men Type: BLOOD SPECIMENOrdering Facility: [facility] Address: [address] [place] [address] Performed By: #### 5 7021-8 ####[facility] MILLWNCLIA [id number] [place] [address] [place] Monocytes (Bld) [#/Vol] 0.45 10*3/uL Normal <0.87 [facility] Comment on above: Order Comment: Speci men Type: BLOOD SPECIMENOrdering Facility: [facility] Address: [address] [place] [address] Performed By: #### 5 7021-8 ####[facility]ITALLIA [id number] [place] [address] [place] Monocytes/100 WBC (Bld) 9.5 % Normal [facility] Comment on above: Order Comment: Speci men Type: BLOOD SPECIMENOrdering Facility: [facility] Address: [address] [place] [address] Performed By: #### 5 7021-8 ####[facility]ITAL[facility] [id number] [place] [address] [place] Neutrophils (Bld) [#/Vol] 3.55 10*3/uL Normal 1.45-7.50 [facility] Comment on above: Order Comment: Speci men Type: BLOOD SPECIMENOrdering Facility: [facility] Address: [address] [place] [address] Performed By: #### 5 7021-8 ####[facility]ANT HOSPITALLIA [id number] [place] [address] [place] Neutrophils/100 WBC (Bld) 74.9 % Normal [facility] Comment on above: Order Comment: Speci men Type: BLOOD SPECIMENOrdering Facility: [facility] Address: [address] [place] [address] Performed By: #### 5 7021-8 ####[facility]ITALLIA [id number] [place] [address] [place] Nucleated RBC (Bld) [#/Vol] 10*3/uL Normal <0.01 [facility] Comment on above: Order Comment: Speci men Type: BLOOD SPECIMENOrdering Facility: [facility] Address: [address] [place] [address] Performed By: #### 5 7021-8 ####[facility]AMPUSNCUNIVERSITY [facility] [id number] [place] [address] [place] Nucleated RBC/100 WBC (Bld) [Ratio] 0.0 /100 WBC Normal [facility] Comment on above: Order Comment: Speci men Type: BLOOD SPECIMENOrdering Facility: [facility] Address: [address] [place] [address] Performed By: #### 5 7021-8 ####[facility] [id number] [place] [address] [place] Platelet mean volume (Bld) [Entitic vol] 9.7 fL Normal 9.0-12.7 [facility] Comment on above: Order Comment: Speci men Type: BLOOD SPECIMENOrdering Facility: [facility] Address: [address] [place] [address] Performed By: #### 5 7021-8 ####[facility] CAMPUSNCLI [id number] [place] [address] [place] Platelets (Bld) [#/Vol] 328 10*3/uL Normal 150-400 [facility] Comment on above: Order Comment: Speci men Type: BLOOD SPECIMENOrdering Facility: [facility] Address: [address] [place] [address] Performed By: #### 5 7021-8 ####[facility] [id number] [place] [address] [place] RBC (Bld) [#/Vol] 3.25 10*6/uL Low 3.90-5.20 [facility] Comment on above: Order Comment: Speci men Type: BLOOD SPECIMENOrdering Facility: [facility] Address: [address] [place] [address] Performed By: #### 5 7021-8 ####[facility] USMANAURORACEZAR [id number] [place] [address] [place] WBC (Bld) [#/Vol] 4.74 10*3/uL Normal 3.70-11.00 [facility] Comment on above: Order Comment: Speci men Type: BLOOD SPECIMENOrdering Facility: [facility] Address: [address] [place] [address] Performed By: #### 5 7021-8 ####[facility] CAMPUSDANNY [id number] [place] [address] [place] Comprehensive metabolic 2000 panelon 07-06-2024 Albumin [Mass/Vol] 4.0 g/dL Normal 3.9-4.9 [facility] Comment on above: Order Comment: Speci men Type: BLOOD SPECIMENOrdering Facility: [facility] Address: [address] [place] [address] Performed By: #### 2 4323-8, 2532-0 ####[facility] CAMPUSALPHONSOA [id number] [place] [address] [place] ALP [Catalytic activity/Vol] 84 U/L Normal 34-123 [facility] Comment on above: Order Comment: Speci men Type: BLOOD SPECIMENOrdering Facility: [facility] Address: [address] [place] [address] Performed By: #### 2 4323-8, 2532-0 ####[facility] CAMPUSNCAMNAA [id number] [place] [address] [place] ALT [Catalytic activity/Vol] 23 U/L Normal 7-38 [facility] Comment on above: Order Comment: Speci men Type: BLOOD SPECIMENOrdering Facility: [facility] Address: [address] [place] [address] Performed By: #### 2 4323-8, 2531-0 ####[facility] ABDELRAHMAN MILLTOWNCLIA [id number] [place] [address] [place] Anion gap [Moles/Vol] 6 mmol/L Low 8-15 [facility] Comment on above: Order Comment: Speci men Type: BLOOD SPECIMENOrdering Facility: [facility] Address: [facility] [place] [address] Performed By: #### 2 4328, 2531-0 ####[facility] MILLTOWNCLIA [id number] [place] [address] [place] AST [Catalytic activity/Vol] 12 U/L Low 13-35 [facility] Comment on above: Order Comment: Speci men Type: BLOOD SPECIMENOrdering Facility: [facility] Address: [facility] [place] [address] Performed By: #### 2 4328, 2531-0 ####[facility] MILLTOWNCLIA [id number] [place] [address] [place] Bilirubin [Mass/Vol] mg/dL Low 0.2-1.3 [facility] Comment on above: Order Comment: Speci men Type: BLOOD SPECIMENOrdering Facility: [facility] Address: [facility] [place] [address] Performed By: #### 2 4328, 2531-0 ####[facility] MILLTOWNCLIA [id number] [place] [address] [place] Calcium [Mass/Vol] 10.1 mg/dL Normal 8.5-10.2 [facility] Comment on above: Order Comment: Speci men Type: BLOOD SPECIMENOrdering Facility: [facility] Address: [facility] [place] [address] Performed By: #### 2 432-8, 2531-0 ####[facility] CAMPUSNCLIA [id number] [place] [address] [place] Chloride [Moles/Vol] 101 mmol/L Normal 98-107 [facility] Comment on above: Order Comment: Speci men Type: BLOOD SPECIMENOrdering Facility: [facility] Address: [address] [place] [address] Performed By: #### 2 4323-8, 2532-0 ####[facility] CAMPUSNCUNIVERSITY [facility] [id number] [place] [address] [place] CO2 [Moles/Vol] 30 mmol/L Normal 22-30 [facility] Comment on above: Order Comment: Speci men Type: BLOOD SPECIMENOrdering Facility: [facility] Address: [address] [place] [address] Performed By: #### 2 4323-8, 2532-0 ####[facility] CAMPUSNCLIA [id number] [place] [address] [place] Creatinine [Mass/Vol] 0.57 mg/dL Low 0.58-0.96 [facility] Comment on above: Order Comment: Speci men Type: BLOOD SPECIMENOrdering Facility: [facility] Address: [address] [place] [address] Performed By: #### 2 4323-8, 2532-0 ####[facility] HOSPITALA [id number] [place] [address] [place] Creatinine and Glomerular filtration rate.predicted panel (S/P/Bld) 105 mL/min/1.73m??? Normal >=60 [facility] Comment on above: Order Comment: Speci men Type: BLOOD SPECIMENOrdering Facility: [facility] Address: [address] [place] [address] Result Comment: Jannet mated Glomerular Filtration Rate (eGFR) is calculated using the 2020 CKD-EPI creatinine equation. This equation utilizes serum creatinine, sex, and age as parameters. The creatinine assay has traceable calibration to isotope dilution-mass spectrometry. Refer to KDIGO guidelines for clinical interpretation. In patients with unstable renal function, e.g. those with acute kidney injury, the eGFR may not accurately reflect actual GFR. Performed By: #### 2 43238, 0 ####[facility] RANVICTOR MWAURORALIA [id number] [place] [address] [place] Glucose [Mass/Vol] 94 mg/dL Normal 74-99 [facility] Comment on above: Order Comment: Soraida monique Type: BLOOD SPECIMENOrdering Facility: [facility] Address: [address] [place] [address] Result Comment: The [place] Diabetes [employer] (ADA) provides guidance for cutoff values for fasting glucose and random glucose. The ADA defines fasting as no caloric intake for at least 8 hours. Fasting plasma glucose results between 100 to 125 mg/dL indicate increased risk for diabetes (prediabetes). Fasting plasma glucose results greater than or equal to 126 mg/dL meet the criteria for diagnosis of diabetes. In the absence of unequivocal hyperglycemia, results should be confirmed by repeat testing. In a patient with classic symptoms of hyperglycemia or hyperglycemic crisis, random plasma glucose results greater than or equal to 200 mg/dL meet the criteria for diagnosis of diabetes. Reference: Standards of Medical Care in Diabetes 2016, [place] [employer]. Diabetes Care. 2016.39(Suppl 1). Performed By: #### 2 4328, ####[facility] CAMPUSALPHONSOA [id number] [place] [address] [place] Potassium [Moles/Vol] 4.2 mmol/L Normal 3.7-5.1 [facility] Comment on above: Order Comment: Soraida monique Type: BLOOD SPECIMENOrdering Facility: [facility] Address: [address] [place] [address] Performed By: #### 2 4323-8, 0 ####[facility] CENTERWNCLIA [id number] [place] [address] [place] Protein [Mass/Vol] 5.9 g/dL Low 6.3-8.0 [facility] Comment on above: Order Comment: Speci men Type: BLOOD SPECIMENOrdering Facility: [facility] Address: [address] [place] [address] Performed By: #### 2 4323-8, 2531-0 ####[facility]AMPUSNCUNIVERSITY [facility] [id number] [place] [address] [place] Sodium [Moles/Vol] 137 mmol/L Normal 136-144 [facility] Comment on above: Order Comment: Speci men Type: BLOOD SPECIMENOrdering Facility: [facility] Address: [address] [place] [address] Performed By: #### 2 4323-8, 2531-0 ####[facility]AMPUSNCUNIVERSITY [facility] [id number] [place] [address] [place] Urea nitrogen [Mass/Vol] 34 mg/dL High 7-21 [facility] Comment on above: Order Comment: Speci men Type: BLOOD SPECIMENOrdering Facility: [facility] Address: [address] [place] [address] Performed By: #### 2 4323-8, 2531-0 ####[facility] [id number] [address] [place] IMMUNOFIXATION SCREEN, SERUM on 07-06-2024 MPA RESULT No M protein is identified. Normal No M protein is identified. [facility] Comment on above: Order Comment: Speci men Type: BLOOD SPECIMEN [facility] Address: [address] [place] [address] Performed By: #### I [facility] #### [facility] CLIA [id number] [address] [place] [address] [place] STAFF REVIEW (MPA) Reviewed by Dr. Daisy Kapoor MD [facility] Comment on above: Order Comment: Speci men Type: BLOOD SPECIMEN [facility] Address: [address] [place] [address] Performed By: #### I FESC #### [facility] CLIA [id number] [address] [place] [address] [place] IMMUNOGLOBULINS,IGG,IGA,IGMo n 07-06-2024 IgA [Mass/Vol] 33 mg/dL Low 70-400 [facility] Comment on above: Order Comment: Speci men Type: BLOOD SPECIMEN [facility] Address: [address] [place] [address] Performed By: #### I FES #### [facility] CLIA [id number] [address] [place] [address] [place] IgG [Mass/Vol] 497 mg/dL Low 700-1600 [facility] Comment on above: Order Comment: Speci men Type: BLOOD SPECIMEN [facility] Address: [address] [place] [address] Performed By: #### I FES #### [facility] CLIA [id number] [address] [place] [address] [place] IgM [Mass/Vol] 26 mg/dL Low 40-230 [facility] Comment on above: Order Comment: Speci men Type: BLOOD SPECIMEN [facility] Address: [address] [place] [address] Performed By: #### I FES #### [facility] CLIA [id number] [address] [place] [address] [place] KAPPA/VIVEROS,FREE,SERon 2024 Immunoglobulin light chains.kappa.free (S) [Mass/Vol] 17.5 mg/L Normal 3.3-19.4 [facility] Comment on above: Order Comment: Speci men Type: BLOOD SPECIMENOrdering Facility: [facility] Address: [address] [place] [address] Result Comment: Rare ly, increased serum free light chains levels may not be detected or accurately quantified due to prozone phenomenon or in high viscosity samples using this immunoturbidimetric assay. Correlation with other laboratory results and clinical findings is recommended. The [place] Free Light Chain was performed using the Binding Site Optilite immunoturbidimetric method. Result obtained with different assay methods or kits cannot be used interchangeably. Performed By: #### K LFRS ####[facility] LABCLIA [id number] [place] [address] [place] Immunoglobulin light chains.kappa/Immunoglobu dariana light chains.lambda (S) [Mass ratio] 0.12 Low 0.26-1.65 [facility] Comment on above: Order Comment: Speci men Type: BLOOD SPECIMENOrdering Facility: [facility] Address: [address] [place] [address] Performed By: #### K LFRS ####[facility] LABCLIA [id number] [place] [address] [place] Immunoglobulin light chains.lambda.free [Mass/Vol] 140.2 mg/L High 5.7-26.3 [facility] Comment on above: Order Comment: Speci men Type: BLOOD SPECIMENOrdering Facility: [facility] Address: [address] [place] [address] Result Comment: Rare ly, increased serum free light chains levels may not be detected or accurately quantified due to prozone phenomenon or in high viscosity samples using this immunoturbidimetric assay. Correlation with other laboratory results and clinical findings is recommended. The [place] Free Light Chain was performed using the Binding Site Optilite immunoturbidimetric method. Result obtained with different assay methods or kits cannot be used interchangeably. Performed By: #### K LFRS ####[facility] LABCLIA [id number] [place] [address] [place] LDH SerPl-cCncon 07-06-2024 LDH [Catalytic activity/Vol] 157 U/L Normal 135-214 [facility] Comment on above: Order Comment: Speci men Type: BLOOD SPECIMENOrdering Facility: [facility] Address: [address] [place] [address] Performed By: #### 2 4323-8, 2532-0 ####[facility] [id number] [place] [id number] [place] MONOCLONAL PROT UR W/INTERPo n 07-06-2024 INTERPRETATION (UMPA) Poorly defined reg ion of region of restricted mobility in the lambda fadi. Pattern is less well defined or fainter than typically seen in monoclonal gammopathy. This could represent either an atypical presentation of polyclonal immunoglobulins or the presence of a low level lambda containing monoclonal gammopathy. If clinically indicated, serum monoclonal protein analysis and serum free light chain measurements are recommended to evaluate further for monoclonal gammopathy. Clinical correlation is necessary. Normal [facility] Comment on above: Order Comment: Speci men Type: URINE SPECIMENOrdering Facility: [facility] Address: [address] [place] [address] Performed By: #### U RMPA ####[facility] LABIA [id number] [address] [place] STAFF REVIEW (PA) Reviewed by Dr. Dasiy Kapoor MD Normal [facility] Comment on above: Order Comment: Speci men Type: URINE SPECIMENOrdering Facility: [facility] Address: [address] [place] [address] Performed By: #### U RMPA ####[facility] LABIA [id number] [place] [address] [place] UMPA RESULT A poorly defined reg ion of restricted mobility is present that may represent an M protein. Abnormal No M protein is identified. [facility] Comment on above: Order Comment: Speci men Type: URINE SPECIMENOrdering Facility: [facility] Address: [address] [place] [address] Performed By: #### U RMPA ####[facility] LABCLIA [id number] [address] [address] [place] PROTEIN ELECTROPHORESIS SERU M (P)on 07-06-2024 Albumin [Mass/Vol] 3.66 g/dL Normal 3.43-5.41 [facility] Comment on above: Order Comment: Speci men Type: BLOOD SPECIMENOrdering Facility: [facility] Address: [address] [place] [address] Performed By: #### L [id number] ####[facility] LABCLIA [id number] [place] [address] [place] Alpha 1 globulin Elph [Mass/Vol] 0.32 g/dL Normal 0.18-0.43 [facility] Comment on above: Order Comment: Speci men Type: BLOOD SPECIMENOrdering Facility: [facility] Address: [address] [place] [address] Performed By: #### L [id number] ####[facility] LABIA [id number] [place] [address] [place] Alpha 2 globulin Elph [Mass/Vol] 0.53 g/dL Normal 0.42-0.98 [facility] Comment on above: Order Comment: Speci men Type: BLOOD SPECIMENOrdering Facility: [facility] Address: [address] [place] [address] Performed By: #### L [id number] ####[facility] LABIA [id number] [place] [address] [place] Beta globulin Elph [Mass/Vol] 0.68 g/dL Normal 0.61-1.17 [facility] Comment on above: Order Comment: Speci men Type: BLOOD SPECIMENOrdering Facility: [facility] Address: [address] [place] [address] Performed By: #### L [id number] ####[facility] LABIA [id number] [place] [address] [place] Gamma globulin Elph [Mass/Vol] 0.41 g/dL Low 0.53-1.51 [facility] Comment on above: Order Comment: Speci men Type: BLOOD SPECIMENOrdering Facility: [facility] Address: [address] [place] [address] Performed By: #### L [id number] ####[facility] LABIA [id number] [address] STATES OF [facility] INTERPRETATION COMMENT FOR PROTEIN ELECTROPHORESIS Hypogammaglobulinemia is present, which can be seen in the setting of monoclonal gammopathy. If clinically indicated, monoclonal protein analysis and serum free light chain analysis are suggested to evaluate further for monoclonal gammopathy. Normal [facility] Comment on above: Order Comment: Sandiei eneida Type: BLOOD SPECIMENOrdering Facility: [facility] Address: [address] [place] [address] Performed By: #### L [id number] ####[facility] LABIA [id number] [address] M-PROTEIN LOCATION Normal [facility] Comment on above: Order Comment: Soraida monique Type: BLOOD SPECIMENOrdering Facility: [facility] Address: [address] [place] [address] Result Comment: Not Applicable. Performed By: #### L [id number] ####[facility] LABIA [id number] [address] [place] Protein Fractions [Interp] No definitive M protein is identified on protein electrophoresis. Normal No definitive M protein is identified on protein electrophore sis. [facility] Comment on above: Order Comment: Sandiei men Type: BLOOD SPECIMENOrdering Facility: [facility] Address: [address] [place] [address] Performed By: #### L [id number] ####[facility] LABIA [id number] [address] [place] Protein.monoclonal Elph [Mass/Vol] 0.00 g/dL Normal <=0.00 [facility] Comment on above: Order Comment: Sandiei men Type: BLOOD SPECIMENOrdering Facility: [facility] Address: [address] [place] [address] Performed By: #### L [id number] ####[facility] LABIA [id number] [place] [id number] [place] SPE STAFF REVIEW Reviewed by Dr. Daisy Kapoor MD [facility] Comment on above: Order Comment: Speci men Type: BLOOD SPECIMENOrdering Facility: [facility] Address: [address] [place] [address] Performed By: #### L [id number] ####[facility] LABIA [id number] [place] [id number] [place] Prot SerPl-mCncon 07-06-2024 Protein [Mass/Vol] 5.6 g/dL Low 6.3-8.0 [facility] Comment on above: Order Comment: Speci men Type: BLOOD SPECIMENOrdering Facility: [facility] Address: [address] [place] [address] Performed By: #### 2 885-2 ####[facility]PITAL[facility] [id number] [place] [id number] [place] Prot Ur-mCncon 07-06-2024 Protein (U) [Mass/Vol] 5 mg/dL Normal 0-[address] [facility] Comment on above: Order Comment: Speci men Type: URINE SPECIMENOrdering Facility: [facility] Address: [address] [place] [address] Performed By: #### 2 888-6 ####[facility] HOSPITALIA [id number] [place] [id number] [place] URINE PROTEIN ELECTROPHORESI S RANDOM (P)on 07-06-2024 Albumin Elph (U) [Mass fraction] 41.08 % Normal [facility] Comment on above: Order Comment: Speci men Type: BLOOD SPECIMEN [facility] Address: [address] [place] [address] Performed By: #### I FES #### [facility] [place] [id number] [address] [place] [id number] [place] Alpha 1 globulin Elph (U) [Mass fraction] 8.38 % Normal [facility] Comment on above: Order Comment: Speci men Type: BLOOD SPECIMEN [facility] Address: [address] [place] [address] Performed By: #### I FESC #### [facility] CLIA [id number] [address] [place], [place] [id number] [place] Alpha 2 globulin Elph (U) [Mass fraction] 16.49 % Normal [facility] Comment on above: Order Comment: Speci men Type: BLOOD SPECIMEN Ordering Facility: [facility] Address: [address] [place] [address] Performed By: #### I FESC #### [facility] CLIA [id number] [address] [place] [address] [place] Beta globulin Elph (U) [Mass fraction] 22.43 % Normal [facility] Comment on above: Order Comment: Speci men Type: BLOOD SPECIMEN Ordering Facility: [facility] Address: [address] [place] [address] Performed By: #### I FESC #### [facility] CLIA [id number] [address] [place], [place] [id number] [place] Gamma globulin Elph (U) [Mass fraction] 11.62 % Normal [facility] Comment on above: Order Comment: Speci men Type: BLOOD SPECIMEN Ordering Facility: [facility] Address: [address] [place], [place] [id number] Performed By: #### I FESC #### [facility] CLIA [id number] [address] [place], [place] [id number] [place] Protein Fractions Elph Shayne (U) [Interp] No definitive M protein is identified on protein electrophoresis. Normal No definitive M protein is identified on protein electrophore sis. [facility] Comment on above: Order Comment: Speci men Type: BLOOD SPECIMEN Ordering Facility: [facility] Address: [address] [place] [address] Performed By: #### I FESC #### [facility] CLIA [id number] [address] [place] [address] STAFF REVIEW (URINE ELECTRO) Reviewed by Dr. Asael Kapoor MD [facility] Comment on above: Order Comment: Speci men Type: BLOOD SPECIMEN Ordering Facility: [facility] Address: [address] [place] [address] Performed By: #### I FESC #### [facility] CLIA [id number] [address] [place] [address] Absolute lymphocyte countOrd ered By: Robyn Ray on 06-27-2024 Lymphocytes Auto (Unsp spec) [#/Vol] 0.75 10*3/uL Low 0.83-4.51 [facility] Absolute neutrophil countOrd ered By: Robyn Ray on 06-27-2024 Neutrophils (Bld) [#/Vol] 3.7 10*3/uL 2.0-7.7 [facility] Automated lymphocyte count a s percentage of total leukocytesOrdered By: Robyn Ray on 06-27-2024 Lymphocytes/100 WBC Auto (Unsp spec) 15.2 % Low 19-41 [facility] Basophil percentageOrdered B y: Robyn Ray on 06-27-2024 Basophils/100 WBC (Bld) 0.2 % 0-1 [facility] Blood polychromasia detectio n by light microscopyOrdered By: Robyn Ray on 06-27-2024 Polychromasia LM Ql (Bld) 1+ [facility] [place] cells LM Ql (Bld)Ordere d By: Robyn Ray on 06-27-2024 [place] Cells 1+ [facility] CBC W/Diff, Automatedon 04-0 SIMBA CELLS 1+ Normal [facility] Comment on above: Performed By: #### L 801.2650, L501.18477, L506.1000, L503.6550, L801.1541, L500.4100, L506.0400, L101.9900, L504.2610, L501.9310, L501.5101, L501.9186, L801.1543, L100.0100, L501.9520, L503.6030, L501.9985, L3400.1350, L3250.0100, L3100.7870, L803.0600, L3300.7100, L500.4050, L3300.0100, L3300.6900, L3300.1900, L300.4700, L501.1400 #### [facility] [address] [place], [address] Anisocytosis Ql (Bld) 1+ Normal [facility] Comment on above: Performed By: #### L 801.2650, L501.58163, L506.1000, L503.6550, L801.1541, L500.4100, L506.0400, L101.9900, L504.2610, L501.9310, L501.5101, L501.9186, L801.1543, L100.0100, L501.9520, L503.6030, L501.9985, L3400.1350, L3250.0100, L3100.7870, L803.0600, L3300.7100, L500.4050, L3300.0100, L3300.6900, L3300.1900, L300.4700, L501.1400 #### [facility] [address] [place], [address] POLYCHROMASIA 1+ Normal [facility] Comment on above: Performed By: #### L 801.2650, L501.88964, L506.1000, L503.6550, L801.1541, L500.4100, L506.0400, L101.9900, L504.2610, L501.9310, L501.5101, L501.9186, L801.1543, L100.0100, L501.9520, L503.6030, L501.9985, L3400.1350, L3250.0100, L3100.7870, L803.0600, L3300.7100, L500.4050, L3300.0100, L3300.6900, L3300.1900, L300.4700, L501.1400 #### [facility] [address] [place], [place], [id number] TARGET CELLS 3+ Normal [facility] Comment on above: Performed By: #### L 801.2650, L501.83414, L506.1000, L503.6550, L801.1541, L500.4100, L506.0400, L101.9900, L504.2610, L501.9310, L501.5101, L501.9186, L801.1543, L100.0100, L501.9520, L503.6030, L501.9985, L3400.1350, L3250.0100, L3100.7870, L803.0600, L3300.7100, L500.4050, L3300.0100, L3300.6900, L3300.1900, L300.4700, L501.1400 #### [facility] [address] [place], [address] Crenated erythrocyte detecti on by light microscopyOrdered By: Robyn Ray on 06-27-2024 [place] cells LM Ql (Bld) 1+ [facility] Eosinophil percentageOrdered By: Robyn Ray on 06-27-2024 Eosinophils/100 WBC (Bld) 0.6 % 0-5 [facility] Erythrocyte distribution wid th (RBC) [Ratio]Ordered By: Robyn Ray on 06-27-2024 Erythrocyte distribution width (RBC) [Entitic vol] 60.2 fL High 35.1-43.9 [facility] Erythrocyte distribution wid th ratioOrdered By: Robyn Ray on 06-27-2024 Erythrocyte distribution width (RBC) [Ratio] 22.0 % High 11.6-14.6 [facility] Erythrocyte distribution wid th standard deviationOrdered By: Robyn Ray on 06-27-2024 Erythrocyte distribution width (RBC) [Ratio] 60.2 fl High 35.1-43.9 [facility] Gastroenterology Visit Repor ton 06-27-2024 Gastroenterology Visit Report [facility] [address] [place] [address] OFFICE VISIT Date of Service: 06/27/24 MR#: [id number] Acct: [id number] Name: HALEY GLEZ Rep #: [id number] : 1965 Provider: MITZY lo Age/Sex: 59/F [place] [facility] [place]: Signed Intake Vital Signs 01/12/24 13:49 06/27/24 14:41 Height 5 ft 10 in 5 ft 10 in Weight: 125 lb 6 oz BMI 17.9 BP 139/87 H Respiration 16 Pulse 52 L Pulse Oximetry (%) 99 Oxygen Delivery Method room air Intake Visit Reasons: Blood in stool Chief Complaint: hypothyroidism Web Architect Required: No Is patient in pain?: No Allergies codeine Allergy (Verified 06/27/24 14:38) Vomiting amoxicillin Adverse Reaction (Intermediate, Verified 06/27/24 14:38) hot flash lactose Adverse Reaction (Verified 06/27/24 14:38) Vomiting Medications ???Medication ???Instructions ???Recorded ???Confirmed ???Type digestive enzymes 1 tab PO TIDCM 03/15/22 06/27/24 H istory cholecalciferol (vitamin D3) 25 50 mcg (2 x 25 mcg (1,000 unit)) 1 05/21/21 06/27/24 Rx mcg (1,000 unit) tablet PO DAILY 30 days #60 tabs acetylcysteine (bulk) ea miscellaneous 05/20/22 06/27/24 History magnesium chelate, malate 360 mg PO 01/11/23 06/27/24 Histor y vitamin K2 180 mcg capsule 180 mcg PO DAILY 01/11/23 06/27/24 History diluent,naltrexone microsphere 0.6 ml IM 01/12/24 06/27/24 Histor y levothyroxine 50 mcg tablet See Rx Instructions PO DAILY #38 1 06/27/24 Rx tabs ondansetron HCl 4 mg tablet 4 mg PO .COMPLEX #8 tabs 06/27/24 06/27/24 Rx peg 3350-electrolytes 236 240 ml PO Q10M #4,000 mL 06/27/24 06/27/24 Rx gram-22.74 gram-6.74 gram-5.86 gram solution (Golytely) peg 3350-sod sulf,[id number] See Rx Instructions PO .COMPLEX #2 06/27/24 06/27/24 Rx 178.7-7.3-0.5-1.12-0.9 gram oral mL soln (Suflave) [facility] Medical History Anasarca Difficulty in walking Osteoporosis 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 Lawrence November 2021 for YANEZ with elevated transaminases. ANCA, ASMA, JOSE and hepatitis serologies were unremarkable 11/2021. EGD and colonoscopy performed 05.19.21. EGD found erythematous mucosa of gastric body and duodenopathy. Biopsy revealed gastritis; H.Pylori negative. Colonoscopy prep was very poor with only 50% of colon examined. COLON 2022 at [facility] per patient poor prep Labs 06/13/2024 Hgb 8.2, MCV 79, iron 20, ferritin 7, 5% saturation, PLT 393 05/29/2024 transaminases within normal limits 05/16/2024 Hgb 8.5 04/05/2024 Hgb 9 02/07/2024 Hgb 9.8 12/08/2023 Hgb 10.6 09/08/[address] chest abdomen and pelvis with IV contrast 03/18/2022 - There is moderate stool in the colon which may represent constipation. Small amount of free fluid in the abdomen which may represent ascites. Elastography 12/29/2021 - Liver stiffness measures 5.1 kPa compatible with F0-F1 (Normal to mild liver fibrosis) Metavir score. - weight loss - down 10lbs from December 2023 - blood in stool - per patient occult positive - has a BM daily - reports stomach is sensitive and irritates easily - she is working with a Residential Mental [facility] Worker - DGL licorice, L-Glutamine, Slippery Elm, Aloe Vera Gel, Probiotics for GI symptoms - epigastric pain - bloating - dyspepsia - denies any HB - she reports she is doing a Keto diet recommended by Residential Mental Health Worker for the MM - IBS episodes - reports these are associated with lower abdominal pain/cramping - denies any epistaxis - denies any hematuria - denies bruising - denies drinking any EtOH - she is a non-smoker - denies taking any NSAIDS - she is taking low dose Naltrexone for treatment of inflammation also prescribed by Residential Mental Health Worker - denies caffeine intake - Maternal GM with colon CA - oncology - Dr. Johanna Mandel at [facility] for MM - reports she is not taking PO Fe because it will exacerbate the MM - she is consuming Fe rich foods - she reports she is very sensitive to all medications If there is a side effect I am going to get it - she reports doing anything new she has physical and emotional reactions that she is unable to tolerate (more content not included)... Normal [facility] Hematocrit Auto (Bld) [Volum e fraction]Ordered By: Robyn Ray on 06-27-2024 Hematocrit (Bld) [Volume fraction] 25.8 % Low 37-47 [facility] Hemoglobin measurementOrdere d By: Robyn Ray on 06-27-2024 Hemoglobin (Bld) [Mass/Vol] 8.4 g/dL Low 12.0-15.0 [facility] Immature granulocytes/100 WB C Auto (Bld)Ordered By: Robyn Ray on 06-27-2024 Immature granulocytes/100 WBC (Bld) 0.200 % 0.0-0.9 [facility] Comment on above: IG% - Immature Granu locytes (promyelocytes, myelocytes and metamyelocytes) > 1% indicates that a LEFT SHIFT is Present. Laboratory - Hematology and Cell countsOrdered By: Robyn Ray on 06-27-2024 Anisocytosis Ql (Bld) 1+ [facility] Lymphocytes Auto (Unsp spec) [#/Vol]Ordered By: Robyn Ray on 06-27-2024 Lymphocytes (Bld) [#/Vol] 0.75 10*3/uL Low 0.83-4.51 [facility] Lymphocytes/100 WBC Auto (Un sp spec)Ordered By: Robyn Ray on 06-27-2024 Lymphocytes/100 WBC (Bld) 15.2 % Low 19-41 [facility] MCV (mean corpuscular volume ) determinationOrdered By: Robyn Ray on 06-27-2024 MCV (RBC) [Entitic vol] 77.5 fL Low 81-99 [facility] Mean corpuscular hemoglobin (MCH) determinationOrdered By: Robyn Ray on 06-27-2024 MCH (RBC) [Entitic mass] 25.2 pg Low 27.0-32.0 [facility] Mean corpuscular hemoglobin concentration (MCHC) determinationOrdered By: Robyn Ray on 06-27-2024 MCHC (RBC) [Mass/Vol] 32.6 g/dL 32-36 [facility] Mean platelet volume determi nationOrdered By: Robyn Ray on 06-27-2024 Platelet mean volume (Bld) [Entitic vol] 11.0 fL 6.2-12.0 [facility] Monocyte percentageOrdered B y: Robyn Ray on 06-27-2024 Monocytes/100 WBC (Bld) 7.7 % 0-10 [facility] Neutrophil percentageOrdered By: Robyn Ray on 06-27-2024 Neutrophils/100 WBC (Bld) 76.1 % High 47-70 [facility] Nucleated red blood cell per centageOrdered By: oRbyn Ray on 06-27-2024 Nucleated RBC/100 WBC (Bld) [Ratio] 0 % 0-5 [facility] Platelet countOrdered By: Carlos Ray on 06-27-2024 Platelets (Bld) [#/Vol] 305 10*3/uL 150-450 [facility] Polychromasia LM Ql (Bld)Ord ered By: Robyn Ray on 06-27-2024 Polychromasia 1+ [facility] RBC Auto (Bld) [#/Vol]Ordere d By: Robyn Ray on 06-27-2024 RBC (Bld) [#/Vol] 3.33 10*6/uL Low 4.2-5.4 [facility] Target cell detectionOrdered By: Robyn Ray on 06-27-2024 Target cells LM Ql (Bld) 3+ [facility] Target cells LM Ql (Bld)Orde red By: Robyn Ray on 06-27-2024 Target Cells 3+ [facility] White blood cell (WBC) count Ordered By: Robyn Ray on 06-27-2024 WBC (Bld) [#/Vol] 4.9 10*3/uL 4.4-11.0 [facility] Absolute lymphocyte countOrd ered By: Jossie De La Rosa on 06-13-2024 Lymphocytes Auto (Unsp spec) [#/Vol] 0.64 10*3/uL Low 0.83-4.51 [facility] Absolute neutrophil countOrd ered By: Jossie De La Rosa on 06-13-2024 Neutrophils (Bld) [#/Vol] 3.5 10*3/uL 2.0-7.7 [facility] Automated lymphocyte count a s percentage of total leukocytesOrdered By: Jossie De La Rosa on 06-13-2024 Lymphocytes/100 WBC Auto (Unsp spec) 14.0 % Low 19-41 [facility] Basophil percentageOrdered B y: Jossie De La Rosa on 06-13-2024 Basophils/100 WBC (Bld) 0.7 % 0-1 [facility] Blood manual differential co mment interpretation (narrative result)Ordered By: Jossie De La Rosa on 06-13-2024 Manual differential comment Shayne (Bld) [Interp] SCANNED [facility] Blood schistocyte detection by light microscopyOrdered By: Jossie De La Rosa on 06-13-2024 Schistocytes LM Ql (Bld) RARE [facility] [place] cells LM Ql (Bld)Ordere d By: Jossie De La Rosa on 06-13-2024 Crenated Cell 1+ [facility] CBC W/Diff, Automatedon 05-26 CRENATED RBC 1+ Normal [facility] Comment on above: Order Comment: 1 Performed By: #### L 801.2650, L501.26208, L506.1000, L503.6550, L801.1541, L500.4100, L506.0400, L101.9900, L504.2610, L501.9310, L501.5101, L501.9186, L801.1543, L100.0100, L501.9520, L503.6030, L501.9985, L3400.1350, L3250.0100, L3100.7870, L803.0600, L3300.7100, L500.4050, L3300.0100, L3300.6900, L3300.1900, L300.4700, L501.1400 #### [facility] [address] [place], [address] HYPOCHROMASIA 3+ Normal [facility] Comment on above: Order Comment: 1 Performed By: #### L 801.2650, L501.77147, L506.1000, L503.6550, L801.1541, L500.4100, L506.0400, L101.9900, L504.2610, L501.9310, L501.5101, L501.9186, L801.1543, L100.0100, L501.9520, L503.6030, L501.9985, L3400.1350, L3250.0100, L3100.7870, L803.0600, L3300.7100, L500.4050, L3300.0100, L3300.6900, L3300.1900, L300.4700, L501.1400 #### [facility] [address] [place], [address] SCHISTOCYTES RARE [facility] Comment on above: Order Comment: 1 Performed By: #### L 801.2650, L501.53286, L506.1000, L503.6550, L801.1541, L500.4100, L506.0400, L101.9900, L504.2610, L501.9310, L501.5101, L501.9186, L801.1543, L100.0100, L501.9520, L503.6030, L501.9985, L3400.1350, L3250.0100, L3100.7870, L803.0600, L3300.7100, L500.4050, L3300.0100, L3300.6900, L3300.1900, L300.4700, L501.1400 #### [facility] [address] [place], [address] TARGET CELLS 1+ [facility] Comment on above: Order Comment: 1 Performed By: #### L 801.2650, L501.99753, L506.1000, L503.6550, L801.1541, L500.4100, L506.0400, L101.9900, L504.2610, L501.9310, L501.5101, L501.9186, L801.1543, L100.0100, L501.9520, L503.6030, L501.9985, L3400.1350, L3250.0100, L3100.7870, L803.0600, L3300.7100, L500.4050, L3300.0100, L3300.6900, L3300.1900, L300.4700, L501.1400 #### [facility] [address] [facility] [address] [place], [address] Anisocytosis Ql (Bld) 2+ Normal [facility] Comment on above: Order Comment: 1 Performed By: #### L 801.2650, L501.38302, L506.1000, L503.6550, L801.1541, L500.4100, L506.0400, L101.9900, L504.2610, L501.9310, L501.5101, L501.9186, L801.1543, L100.0100, L501.9520, L503.6030, L501.9985, L3400.1350, L3250.0100, L3100.7870, L803.0600, L3300.7100, L500.4050, L3300.0100, L3300.6900, L3300.1900, L300.4700, L501.1400 #### [facility] [address] [place], [address] SMEAR COMMENT SCANNED Normal [facility] Comment on above: Order Comment: 1 Performed By: #### L 801.2650, L501.71309, L506.1000, L503.6550, L801.1541, L500.4100, L506.0400, L101.9900, L504.2610, L501.9310, L501.5101, L501.9186, L801.1543, L100.0100, L501.9520, L503.6030, L501.9985, L3400.1350, L3250.0100, L3100.7870, L803.0600, L3300.7100, L500.4050, L3300.0100, L3300.6900, L3300.1900, L300.4700, L501.1400 #### [facility] [address] [facility] [place], [address] Crenated erythrocyte detecti on by light microscopyOrdered By: Jossie De La Rosa on 06-13-2024 [place] cells LM Ql (Bld) 1+ [facility] Eosinophil percentageOrdered By: Jossie De La Rosa on 06-13-2024 Eosinophils/100 WBC (Bld) 1.1 % 0-5 [facility] Erythrocyte distribution wid th ratioOrdered By: Jossie De La Rosa on 06-13-2024 Erythrocyte distribution width (RBC) [Ratio] 21.9 % High 11.6-14.6 [facility] Erythrocyte distribution wid th standard deviationOrdered By: Jossie De La Rosa on 06-13-2024 Erythrocyte distribution width (RBC) [Entitic vol] 61.7 fL High 35.1-43.9 [facility] Erythrocyte distribution width (RBC) [Ratio] 61.7 fl High 35.1-43.9 [facility] Hematocrit Auto (Bld) [Volum e fraction]Ordered By: Jossie De La Rosa on 06-13-2024 Hematocrit (Bld) [Volume fraction] 26.0 % Low 37-47 [facility] Hemoglobin measurementOrdere d By: Jossie De La Rosa on 06-13-2024 Hemoglobin (Bld) [Mass/Vol] 8.2 g/dL Low 12.0-15.0 [facility] Hypochromatic red blood cell detectionOrdered By: Jossie De La Rosa on 06-13-2024 Hypochromia Ql (Bld) 3+ [facility] Hypochromia Ql (Bld)Ordered By: Jossie De La Rosa on 06-13-2024 Hypochromasia 3+ [facility] Immature granulocytes/100 WB C Auto (Bld)Ordered By: Jossie De La Rosa on 06-13-2024 Immature granulocytes/100 WBC (Bld) 0.400 % 0.0-0.9 [facility] Comment on above: IG% - Immature Granu locytes (promyelocytes, myelocytes and metamyelocytes) > 1% indicates that a LEFT SHIFT is Present. Laboratory - Hematology and Cell countsOrdered By: Jossie De La Rosa on 06-13-2024 Anisocytosis Ql (Bld) 2+ [facility] Lymphocytes Auto (Unsp spec) [#/Vol]Ordered By: Jossie De La Rosa on 06-13-2024 Lymphocytes (Bld) [#/Vol] 0.64 10*3/uL Low 0.83-4.51 [facility] Lymphocytes/100 WBC Auto (Un sp spec)Ordered By: Jossie De La Rosa on 06-13-2024 Lymphocytes/100 WBC (Bld) 14.0 % Low 19-41 [facility] MCV (mean corpuscular volume ) determinationOrdered By: Jossie De La Rosa on 06-13-2024 MCV (RBC) [Entitic vol] 79.0 fL Low 81-99 [facility] Manual differential comment Shayne (Bld) [Interp]Ordered By: Jossie De La Rosa on 06-13-2024 Differential Comment SCANNED [facility] Mean corpuscular hemoglobin (MCH) determinationOrdered By: Jossie De La Rosa on 06-13-2024 MCH (RBC) [Entitic mass] 24.9 pg Low 27.0-32.0 [facility] Mean corpuscular hemoglobin concentration (MCHC) determinationOrdered By: Jossie De La Rosa on 06-13-2024 MCHC (RBC) [Mass/Vol] 31.5 g/dL Low 32-36 [facility] Mean platelet volume determi nationOrdered By: Jossie De La Rosa on 06-13-2024 Platelet mean volume (Bld) [Entitic vol] 10.8 fL 6.2-12.0 [facility] Monocyte percentageOrdered B y: Jossie De La Rosa on 06-13-2024 Monocytes/100 WBC (Bld) 8.1 % 0-10 [facility] Neutrophil percentageOrdered By: Jossie De La Rosa on 06-13-2024 Neutrophils/100 WBC (Bld) 75.7 % High 47-70 [facility] Nucleated red blood cell per centageOrdered By: Jossie De La Rosa on 06-13-2024 Nucleated RBC/100 WBC (Bld) [Ratio] 0 % 0-5 [facility] Platelet countOrdered By: Barak De La Rosa on 06-13-2024 Platelets (Bld) [#/Vol] 393 10*3/uL 150-450 [facility] RBC Auto (Bld) [#/Vol]Ordere d By: Jossie De La Rosa on 06-13-2024 RBC (Bld) [#/Vol] 3.29 10*6/uL Low 4.2-5.4 [facility] Schistocytes LM Ql (Bld)Orde red By: Jossie De La Rosa on 06-13-2024 Schistocytes RARE [facility] Target cell detectionOrdered By: Jossie De La Rosa on 06-13-2024 Target cells LM Ql (Bld) 1+ [facility] Target cells LM Ql (Bld)Orde red By: Jossie De La Rosa on 06-13-2024 Target Cells 1+ [facility] White blood cell (WBC) count Ordered By: Jossie De La Rosa on 06-13-2024 WBC (Bld) [#/Vol] 4.6 10*3/uL 4.4-11.0 [facility] Ceruloplasminon 06-02-2024 CERULOPLASMIN 30.5 mg/dL Normal 19.0-39.0 [facility] Comment on above: Order Comment: Test( s) 973476-Myucxkn T3, Serumwas developed and its performance characteristicsdetermined by [employer]. It has not been cleared or approvedby the Food and Drug Administration. Performed By: #### L 801.2650, L501.85071, L506.1000, L503.6550, L801.1541, L500.4100, L506.0400, L101.9900, L504.2610, L501.9310, L501.5101, L501.9186, L801.1543, L100.0100, L501.9520, L503.6030, L501.9985, L3400.1350, L3250.0100, L3100.7870, L803.0600, L3300.7100, L500.4050, L3300.0100, L3300.6900, L3300.1900, L300.4700, L501.1400 #### [facility] [address] [place], [address] Copper, Serum or Plasmaon COPPER, SERUM 116 ug/dL Normal 80-158 [facility] Comment on above: Order Comment: Test( s) [id number]-Esdzbma T3, Serumwas developed and its performance characteristicsdetermined by [employer]. It has not been cleared or approvedby the Food and Drug Administration. Result Comment: Dete ction Limit = 5 Performed By: #### L 801.2650, L501.85459, L506.1000, L503.6550, L801.1541, L500.4100, L506.0400, L101.9900, L504.2610, L501.9310, L501.5101, L501.9186, L801.1543, L100.0100, L501.9520, L503.6030, L501.9985, L3400.1350, L3250.0100, L3100.7870, L803.0600, L3300.7100, L500.4050, L3300.0100, L3300.6900, L3300.1900, L300.4700, L501.1400 #### [facility] [address] [place], [place], [id number] Insulin Like Growth Factoron 06-02-2024 SOMATOMEDIN C 129 ng/mL Normal 60-207 [facility] Comment on above: Order Comment: Test( s) 181987-Gksjhaz T3, Serumwas developed and its performance characteristicsdetermined by [employer]. It has not been cleared or approvedby the Food and Drug Administration.N Performed By: #### L 801.2650, L501.62984, L506.1000, L503.6550, L801.1541, L500.4100, L506.0400, L101.9900, L504.2610, L501.9310, L501.5101, L501.9186, L801.1543, L100.0100, L501.9520, L503.6030, L501.9985, L3400.1350, L3250.0100, L3100.7870, L803.0600, L3300.7100, L500.4050, L3300.0100, L3300.6900, L3300.1900, L300.4700, L501.1400 #### [facility] [address] [place], [place], [address] L501.5101on 06-02-2024 GGTP 6 IU/L Normal 0-60 [facility] Comment on above: Order Comment: Test( s) 136100-Ydzhbtu T3, Serumwas developed and its performance characteristicsdetermined by [employer]. It has not been cleared or approvedby the Food and Drug Administration. Performed By: #### L 801.2650, L501.38011, L506.1000, L503.6550, L801.1541, L500.4100, L506.0400, L101.9900, L504.2610, L501.9310, L501.5101, L501.9186, L801.1543, L100.0100, L501.9520, L503.6030, L501.9985, L3400.1350, L3250.0100, L3100.7870, L803.0600, L3300.7100, L500.4050, L3300.0100, L3300.6900, L3300.1900, L300.4700, L501.1400 #### [facility] [address] [place], [place], [id number] L801.2650on 06-02-2024 T3UP 29 Normal 24-39 [facility] Comment on above: Order Comment: Test( s) 649013-Slkxuno T3, Serumwas developed and its performance characteristicsdetermined by [employer]. It has not been cleared or approvedby the Food and Drug Administration. Performed By: #### L 801.2650, L501.22731, L506.1000, L503.6550, L801.1541, L500.4100, L506.0400, L101.9900, L504.2610, L501.9310, L501.5101, L501.9186, L801.1543, L100.0100, L501.9520, L503.6030, L501.9985, L3400.1350, L3250.0100, L3100.7870, L803.0600, L3300.7100, L500.4050, L3300.0100, L3300.6900, L3300.1900, L300.4700, L501.1400 #### [facility] [address] [place], [place], [address] LDH Isoenzymeon 06-02-2024 INTERPRETATION Comment Normal . [facility] Comment on above: Order Comment: Test( s) 028060-Ubaovnf T3, Serumwas developed and its performance characteristicsdetermined by [employer]. It has not been cleared or approvedby the Food and Drug Administration. Result Comment: The LDH isoenzyme pattern appears normal with a normal total LDH. Performed By: #### L 801.2650, L501.74578, L506.1000, L503.6550, L801.1541, L500.4100, L506.0400, L101.9900, L504.2610, L501.9310, L501.5101, L501.9186, L801.1543, L100.0100, L501.9520, L503.6030, L501.9985, L3400.1350, L3250.0100, L3100.7870, L803.0600, L3300.7100, L500.4050, L3300.0100, L3300.6900, L3300.1900, L300.4700, L501.1400 #### [facility] [address] [facility]. [place], [place], [address] LDH 137 IU/L Normal 119-226 [facility] Comment on above: Order Comment: Test( s) 941827-Rpumhbb T3, Serumwas developed and its performance characteristicsdetermined by [employer]. It has not been cleared or approvedby the Food and Drug Administration. Performed By: #### L 801.2650, L501.59159, L506.1000, L503.6550, L801.1541, L500.4100, L506.0400, L101.9900, L504.2610, L501.9310, L501.5101, L501.9186, L801.1543, L100.0100, L501.9520, L503.6030, L501.9985, L3400.1350, L3250.0100, L3100.7870, L803.0600, L3300.7100, L500.4050, L3300.0100, L3300.6900, L3300.1900, L300.4700, L501.1400 #### [facility] [address] [facility] [place], [place], [id number] LDH Fraction 1 31 Normal 17-32 [facility] Comment on above: Order Comment: Test( s) 738359-Mftlcxr T3, Serumwas developed and its performance characteristicsdetermined by [employer]. It has not been cleared or approvedby the Food and Drug Administration. Performed By: #### L 801.2650, L501.97489, L506.1000, L503.6550, L801.1541, L500.4100, L506.0400, L101.9900, L504.2610, L501.9310, L501.5101, L501.9186, L801.1543, L100.0100, L501.9520, L503.6030, L501.9985, L3400.1350, L3250.0100, L3100.7870, L803.0600, L3300.7100, L500.4050, L3300.0100, L3300.6900, L3300.1900, L300.4700, L501.1400 #### [facility] [address] [facility] [place], [place], [id number] LDH Fraction 2 37 Normal 25-40 [facility] Comment on above: Order Comment: Test( s) 898553-Ohhdemp T3, Serumwas developed and its performance characteristicsdetermined by [employer]. It has not been cleared or approvedby the Food and Drug Administration. Performed By: #### L 801.2650, L501.51688, L506.1000, L503.6550, L801.1541, L500.4100, L506.0400, L101.9900, L504.2610, L501.9310, L501.5101, L501.9186, L801.1543, L100.0100, L501.9520, L503.6030, L501.9985, L3400.1350, L3250.0100, L3100.7870, L803.0600, L3300.7100, L500.4050, L3300.0100, L3300.6900, L3300.1900, L300.4700, L501.1400 #### [facility] [address] [facility] [place], [address] LDH Fraction 3 22 Normal 17-27 [facility] Comment on above: Order Comment: Test( s) 012169-Luigede T3, Serumwas developed and its performance characteristicsdetermined by [employer]. It has not been cleared or approvedby the Food and Drug Administration. Performed By: #### L 801.2650, L501.89357, L506.1000, L503.6550, L801.1541, L500.4100, L506.0400, L101.9900, L504.2610, L501.9310, L501.5101, L501.9186, L801.1543, L100.0100, L501.9520, L503.6030, L501.9985, L3400.1350, L3250.0100, L3100.7870, L803.0600, L3300.7100, L500.4050, L3300.0100, L3300.6900, L3300.1900, L300.4700, L501.1400 #### [facility] [address] [facility] [place], [address] LDH Fraction 4 6 Normal 5-13 [facility] Comment on above: Order Comment: Test( s) 090668-Rxwfjct T3, Serumwas developed and its performance characteristicsdetermined by [employer]. It has not been cleared or approvedby the Food and Drug Administration. Performed By: #### L 801.2650, L501.62145, L506.1000, L503.6550, L801.1541, L500.4100, L506.0400, L101.9900, L504.2610, L501.9310, L501.5101, L501.9186, L801.1543, L100.0100, L501.9520, L503.6030, L501.9985, L3400.1350, L3250.0100, L3100.7870, L803.0600, L3300.7100, L500.4050, L3300.0100, L3300.6900, L3300.1900, L300.4700, L501.1400 #### [facility] [address] [facility] [place], [address] LDH Fraction 5 4 Normal 4-20 [facility] Comment on above: Order Comment: Test( s) 747666-Fsastmh T3, Serumwas developed and its performance characteristicsdetermined by [employer]. It has not been cleared or approvedby the Food and Drug Administration. Performed By: #### L 801.2650, L501.90448, L506.1000, L503.6550, L801.1541, L500.4100, L506.0400, L101.9900, L504.2610, L501.9310, L501.5101, L501.9186, L801.1543, L100.0100, L501.9520, L503.6030, L501.9985, L3400.1350, L3250.0100, L3100.7870, L803.0600, L3300.7100, L500.4050, L3300.0100, L3300.6900, L3300.1900, L300.4700, L501.1400 #### [facility] [address] [facility] [place], [address] T3 Reverseon 06-02-2024 T3 REVERSE 21.6 ng/dL Normal 9.2-24.1 [facility] Comment on above: Order Comment: Test( s) 078028-Geqtdoe T3, Serumwas developed and its performance characteristicsdetermined by [employer]. It has not been cleared or approvedby the Food and Drug Administration.N Performed By: #### L 801.2650, L501.43708, L506.1000, L503.6550, L801.1541, L500.4100, L506.0400, L101.9900, L504.2610, L501.9310, L501.5101, L501.9186, L801.1543, L100.0100, L501.9520, L503.6030, L501.9985, L3400.1350, L3250.0100, L3100.7870, L803.0600, L3300.7100, L500.4050, L3300.0100, L3300.6900, L3300.1900, L300.4700, L501.1400 #### [facility] [address] [facility] [place], [place], [address] Thyroid Peroxidase ABon 03-0 THYR PEROX AB 31 IU/mL Normal 0-34 [facility] Comment on above: Order Comment: Test( s) 103071-Ufvqqlt T3, Serumwas developed and its performance characteristicsdetermined by [employer]. It has not been cleared or approvedby the Food and Drug Administration. Result Comment: Perf ormed at: [address] [id number] [employer]: Ortiz Hayden PhD, Phone: [phone] Performed at: [address] [id number] [employer]: Neda Sousa MD, Phone: [phone] Performed By: #### L 801.2650, L501.37257, L506.1000, L503.6550, L801.1541, L500.4100, L506.0400, L101.9900, L504.2610, L501.9310, L501.5101, L501.9186, L801.1543, L100.0100, L501.9520, L503.6030, L501.9985, L3400.1350, L3250.0100, L3100.7870, L803.0600, L3300.7100, L500.4050, L3300.0100, L3300.6900, L3300.1900, L300.4700, L501.1400 #### [facility] [address] [facility]. [place], [place], [id number] L3410.9998on 06-01-2024 [facility] Misc. COMMENT Normal . [facility] Comment on above: Order Comment: 21622 6VEGF PLASMA FRZ Result Comment: Test Ordered: [id number] VEGF, Plasma Test(s) 268928-ICFM, Plasma This test was developed and its performance characteristics determined by [facility]. It has not been cleared or approved by the Food and Drug Administration. VEGF, Plasma 69 pg/mL Reference Range: 0-115 [employer] Quantikine Enzyme Immunoassay (EIA) Values obtained with different assay methods or kits cannot be used interchangeably. Results cannot be interpreted as absolute evidence of the presence or absence of malignant disease. Performed at: [address] [id number] [employer]: Neda Sousa MD, Phone: [phone] Performed at: [address] [id number] [employer]: Ortiz Hayden PhD, Phone: [phone] Performed By: #### L 801.2650, L501.07952, L506.1000, L503.6550, L801.1541, L500.4100, L506.0400, L101.9900, L504.2610, L501.9310, L501.5101, L501.9186, L801.1543, L100.0100, L501.9520, L503.6030, L501.9985, L3400.1350, L3250.0100, L3100.7870, L803.0600, L3300.7100, L500.4050, L3300.0100, L3300.6900, L3300.1900, L300.4700, L501.1400 #### [facility] [address] [place], [place], [id number] CRP, High Sensitivity 197464 on 05-30-2024 CRP, HIGH SENS 0.48 mg/L Normal 0.00-3.00 [facility] Comment on above: Result Comment: Rela tive Risk for Future Cardiovascular Event Low <1.00 Average 1.00 - 3.00 High >3.00 Performed By: #### L 801.2650, L501.14191, L506.1000, L503.6550, L801.1541, L500.4100, L506.0400, L101.9900, L504.2610, L501.9310, L501.5101, L501.9186, L801.1543, L100.0100, L501.9520, L503.6030, L501.9985, L3400.1350, L3250.0100, L3100.7870, L803.0600, L3300.7100, L500.4050, L3300.0100, L3300.6900, L3300.1900, L300.4700, L501.1400 #### [facility] [address] [facility] [place], [address] L803.0600on 05-30-2024 HOMOCYSTEINE 9.3 umol/L Normal 0.0-14.5 [facility] Comment on above: Result Comment: Perf ormed at: [facility] - [facility] [address] [id number] [employer]: Ortiz Hayden PhD, Phone: [phone] Performed By: #### L 801.2650, L501.71908, L506.1000, L503.6550, L801.1541, L500.4100, L506.0400, L101.9900, L504.2610, L501.9310, L501.5101, L501.9186, L801.1543, L100.0100, L501.9520, L503.6030, L501.9985, L3400.1350, L3250.0100, L3100.7870, L803.0600, L3300.7100, L500.4050, L3300.0100, L3300.6900, L3300.1900, L300.4700, L501.1400 #### [facility] [address] [facility] [place], [address] Absolute lymphocyte countOrd ered By: Jc Melissa on 05-29-2024 Lymphocytes Auto (Unsp spec) [#/Vol] 0.82 10*3/uL Low 0.83-4.51 [facility] Absolute neutrophil countOrd ered By: Jc Melissa on 05-29-2024 Neutrophils (Bld) [#/Vol] 1.2 10*3/uL Low 2.0-7.7 [facility] Anion gap in Serum or Plasma Ordered By: Jc Torres on 05-29-2024 Anion gap [Moles/Vol] 11 mmol/L 5-15 [facility] Automated lymphocyte count a s percentage of total leukocytesOrdered By: Jc Torres on 05-29-2024 Lymphocytes/100 WBC Auto (Unsp spec) 36.0 % 19-41 [facility] BUN/creatinine ratioOrdered By: Jc Torres on 05-29-2024 Urea nitrogen/Creatinine [Mass ratio] 50.1 mg/mg High 10-20 [facility] Basophil percentageOrdered B y: Jc Torres on 05-29-2024 Basophils/100 WBC (Bld) 0.9 % 0-1 [facility] Bilirubin, totalOrdered By: Jc Torres on 05-29-2024 Bilirubin [Mass/Vol] mg/dL 0.00-1.30 [facility] C-reactive protein measureme nt by high sensitivity methodOrdered By: Jc Torres on 05-29-2024 C-Reactive Protein High Sensitivity 0.48 mg/L 0.00-3.00 [facility] Comment on above: Relative Risk for Fu ture Cardiovascular Event Low <1.00 Average 1.00 - 3.00 High >3.00 C-reactive protein measurement by high sensitivity method 0.48 mg/L 0.00-3.00 [facility] Comment on above: Relative Risk for Fu ture Cardiovascular Event Low <1.00 Average 1.00 - 3.00 High >3.00 CBC W/Diff, Automatedon Anisocytosis Ql (Bld) 1+ Normal [facility] Comment on above: Performed By: #### L 801.3220, L501.67045, L506.1000, L503.6550, L801.1541, L500.4100, L506.0400, L101.9900, L504.2610, L501.9310, L501.5101, L501.9186, L801.1543, L100.0100, L501.9520, L503.6030, L501.9985, L3400.1350, L3250.0100, L3100.7870, L803.0600, L3300.7100, L500.4050, L3300.0100, L3300.6900, L3300.1900, L300.4700, L501.1400 #### [facility] [address] [facility] [place], [address] OVALOCYTE 1+ Normal [facility] Comment on above: Performed By: #### L 801.2650, L501.41818, L506.1000, L503.6550, L801.1541, L500.4100, L506.0400, L101.9900, L504.2610, L501.9310, L501.5101, L501.9186, L801.1543, L100.0100, L501.9520, L503.6030, L501.9985, L3400.1350, L3250.0100, L3100.7870, L803.0600, L3300.7100, L500.4050, L3300.0100, L3300.6900, L3300.1900, L300.4700, L501.1400 #### [facility] [address] [facility] [place], [address] PLT EST A Normal ADEQ [facility] Comment on above: Performed By: #### L 801.2650, L501.47436, L506.1000, L503.6550, L801.1541, L500.4100, L506.0400, L101.9900, L504.2610, L501.9310, L501.5101, L501.9186, L801.1543, L100.0100, L501.9520, L503.6030, L501.9985, L3400.1350, L3250.0100, L3100.7870, L803.0600, L3300.7100, L500.4050, L3300.0100, L3300.6900, L3300.1900, L300.4700, L501.1400 #### [facility] [address] [place], [address] TEAR DROP 1+ Normal [facility] Comment on above: Performed By: #### L 801.2650, L501.43340, L506.1000, L503.6550, L801.1541, L500.4100, L506.0400, L101.9900, L504.2610, L501.9310, L501.5101, L501.9186, L801.1543, L100.0100, L501.9520, L503.6030, L501.9985, L3400.1350, L3250.0100, L3100.7870, L803.0600, L3300.7100, L500.4050, L3300.0100, L3300.6900, L3300.1900, L300.4700, L501.1400 #### [facility] [address] [facility] [place], [address] Calculated total iron bindin g capacityOrdered By: Jc Torres on 05-29-2024 Total Iron Binding Capacity 440 ug/dL 250-450 [facility] Carbon dioxide, total [Moles /volume] in Central venous bloodOrdered By: Jc Torres on 05-29-2024 CO2 [Moles/Vol] 26.8 mmol/L 21.0-32.0 [facility] CeruloplasminOrdered By: Lissy Torres on 05-29-2024 Ceruloplasmin 30.5 mg/dL 19.0-39.0 [facility] Chloride assayOrdered By: Bart Torres on 05-29-2024 Chloride [Moles/Vol] 102 mmol/L 98-108 [facility] Comprehensive Metabolic Prof ilon 05-29-2024 AST [Catalytic activity/Vol] 15 U/L Normal <=31 [facility] Comment on above: Performed By: #### L 801.2650, L501.22480, L506.1000, L503.6550, L801.1541, L500.4100, L506.0400, L101.9900, L504.2610, L501.9310, L501.5101, L501.9186, L801.1543, L100.0100, L501.9520, L503.6030, L501.9985, L3400.1350, L3250.0100, L3100.7870, L803.0600, L3300.7100, L500.4050, L3300.0100, L3300.6900, L3300.1900, L300.4700, L501.1400 #### [facility] [address] [place], [place], [address] Copper, serumOrdered By: Lissy Torres on 05-29-2024 Serum Copper 116 ug/dL 80-158 [facility] Comment on above: Detection Limit = 5 D-Dimer Quantitative (DVT/PE )on 05-29-2024 D-DIMER QUANT 0.49 FEU/ug/m Normal 0.27-0.49 [facility] Comment on above: Result Comment: NORM AL D-Dimer level (<0.50) indicates no DVT or PE. Performed By: #### L 801.2650, L501.22157, L506.1000, L503.6550, L801.1541, L500.4100, L506.0400, L101.9900, L504.2610, L501.9310, L501.5101, L501.9186, L801.1543, L100.0100, L501.9520, L503.6030, L501.9985, L3400.1350, L3250.0100, L3100.7870, L803.0600, L3300.7100, L500.4050, L3300.0100, L3300.6900, L3300.1900, L300.4700, L501.1400 #### [facility] [address] [place], [address] D-dimer measurement for deep venous thrombosisOrdered By: Jc Torres on 05-29-2024 D-Dimer Quantitative (PE/DVT) 0.49 FEU/ug/m 0.27-0.49 [facility] Comment on above: NORMAL D-Dimer level (<0.50) indicates no DVT or PE. Dacrocytes LM Ql (Bld)Ordere d By: Jc Torres on 05-29-2024 Tear Drop Cells 1+ [facility] Eosinophil percentageOrdered By: Jc Torres on 05-29-2024 Eosinophils/100 WBC (Bld) 2.2 % 0-5 [facility] Erythrocyte Sed Rateon 05-29 SED RATE 12 mm/hr Normal 0-30 [facility] Comment on above: Performed By: #### L 801.2650, L501.68443, L506.1000, L503.6550, L801.1541, L500.4100, L506.0400, L101.9900, L504.2610, L501.9310, L501.5101, L501.9186, L801.1543, L100.0100, L501.9520, L503.6030, L501.9985, L3400.1350, L3250.0100, L3100.7870, L803.0600, L3300.7100, L500.4050, L3300.0100, L3300.6900, L3300.1900, L300.4700, L501.1400 #### [facility] [address] [place], [address] Erythrocyte distribution wid th ratioOrdered By: Jc Torres on 05-29-2024 Erythrocyte distribution width (RBC) [Ratio] 20.1 % High 11.6-14.6 [facility] Erythrocyte distribution wid th standard deviationOrdered By: Jc Torres on 05-29-2024 Erythrocyte distribution width (RBC) [Entitic vol] 55.6 fL High 35.1-43.9 [facility] Erythrocyte distribution width (RBC) [Ratio] 55.6 fl High 35.1-43.9 [facility] Erythrocyte sedimentation ra teOrdered By: Jc Torres on 05-29-2024 ESR (Bld) [Velocity] 12 mm/h 0-30 [facility] Ferritinon 05-29-2024 Ferritin [Mass/Vol] 7 ng/mL Low 22-378 [facility] Comment on above: Performed By: #### L 801.2650, L501.65959, L506.1000, L503.6550, L801.1541, L500.4100, L506.0400, L101.9900, L504.2610, L501.9310, L501.5101, L501.9186, L801.1543, L100.0100, L501.9520, L503.6030, L501.9985, L3400.1350, L3250.0100, L3100.7870, L803.0600, L3300.7100, L500.4050, L3300.0100, L3300.6900, L3300.1900, L300.4700, L501.1400 #### [facility] [address] [place], [address] Fibrinogenon 05-29-2024 FIBRINOGEN 452 mg/dl High 203-444 [facility] Comment on above: Performed By: #### L 801.2650, L501.04613, L506.1000, L503.6550, L801.1541, L500.4100, L506.0400, L101.9900, L504.2610, L501.9310, L501.5101, L501.9186, L801.1543, L100.0100, L501.9520, L503.6030, L501.9985, L3400.1350, L3250.0100, L3100.7870, L803.0600, L3300.7100, L500.4050, L3300.0100, L3300.6900, L3300.1900, L300.4700, L501.1400 #### [facility] [address] [place], [place], [id number] Fibrinogen Coagulation.deriv ed (PPP) [Mass/Vol]Ordered By: Jc Torres on 05-29-2024 Fibrinogen 452 mg/dl High [facility] Fibrinogen measurement in pl atelet poor plasma by derived coagulation (mass/volume)Ordered By: Jc Torres on 05-29-2024 Fibrinogen Coagulation.derived (PPP) [Mass/Vol] 452 mg/dl High [facility] Free T3on 05-29-2024 Free T3 [Mass/Vol] 1.4 pg/mL Low 2.18-3.98 [facility] Comment on above: Performed By: #### L 801.2650, L501.80550, L506.1000, L503.6550, L801.1541, L500.4100, L506.0400, L101.9900, L504.2610, L501.9310, L501.5101, L501.9186, L801.1543, L100.0100, L501.9520, L503.6030, L501.9985, L3400.1350, L3250.0100, L3100.7870, L803.0600, L3300.7100, L500.4050, L3300.0100, L3300.6900, L3300.1900, L300.4700, L501.1400 #### [facility] [address] [place], [address] Free V8Swokffq By: Jc frost on 05-29-2024 Free T3 [Mass/Vol] 1.4 pg/mL Low 2.18-3.98 [facility] Free Triiodothyronine (T3) pg/dL 1.4 pg/mL Low 2.18-3.98 [facility] GFR/1.73 sq M.predicted emerson g non-blacks MDRD (S/P/Bld) [Vol rate/Area]Ordered By: Jc Torres on 05-29-2024 Estimated GFR (MDRD) Non-Af Amer 107 >60 [facility] Comment on above: mL/min/1.73m2 CKD-EP I Creatinine Equation (2020) Gamma glutamyl transferase ( GGT) measurementOrdered By: Jc Torres on 05-29-2024 Amylase [Catalytic activity/Vol] 6 U/L 0-60 [facility] Glomerular filtration rate ( GFR) estimation/1.73 sq m using serum, plasma, or whole bOrdered By: Jc Torres on 05-29-2024 GFR/1.73 sq M.predicted among non-blacks MDRD (S/P/Bld) [Vol rate/Area] 107 mL/min/{1.73_m2} >60 [facility] Comment on above: mL/min/1.73m2 CKD-EP I Creatinine Equation (2020) Hematocrit Auto (Bld) [Volum e fraction]Ordered By: Jc Torres on 05-29-2024 Hematocrit (Bld) [Volume fraction] 27.0 % Low 37-47 [facility] Hemoglobin A1con 05-29-2024 HbA1c (Bld) [Mass fraction] 5.5 % Low <=5.6 [facility] Comment on above: Performed By: #### L 801.2650, L501.22716, L506.1000, L503.6550, L801.1541, L500.4100, L506.0400, L101.9900, L504.2610, L501.9310, L501.5101, L501.9186, L801.1543, L100.0100, L501.9520, L503.6030, L501.9985, L3400.1350, L3250.0100, L3100.7870, L803.0600, L3300.7100, L500.4050, L3300.0100, L3300.6900, L3300.1900, L300.4700, L501.1400 #### [facility] [address] [place], [place], [id number] Hemoglobin A1c percentageOrd ered By: Jc Torres on 05-29-2024 HbA1c (Bld) [Mass fraction] 5.5 % Low >5.7 [facility] Hemoglobin measurementOrdere d By: Jc Torres on 05-29-2024 Hemoglobin (Bld) [Mass/Vol] 8.5 g/dL Low 12.0-15.0 [facility] Homocysteine measurement (ma ss/volume)Ordered By: Jc Torres on 05-29-2024 Homocysteine 9.3 umol/L 0.0-14.5 [facility] Comment on above: Performed at: [address] Director: Ortiz Hayden PhD, Phone: [phone] Immature granulocytes/100 WB C Auto (Bld)Ordered By: Jc Torres on 05-29-2024 Immature granulocytes/100 WBC (Bld) 0.000 % 0.0-0.9 [facility] Comment on above: IG% - Immature Granu locytes (promyelocytes, myelocytes and metamyelocytes) > 1% indicates that a LEFT SHIFT is Present. Insulin-like growth factor ( IGF) measurementOrdered By: Jc Torres on 05-29-2024 Insulin-like growth factor [Moles/Vol] 129 ng/mL 60- [facility] Insulin-like growth factor [ Moles/Vol]Ordered By: Jc Torres on 05-29-2024 Somatomedin-C 129 ng/mL 60-207 [facility] Interpretation of lactate de hydrogenase (LDH) isoenzymes panelOrdered By: Jc Torres on 05-29-2024 LD Isoenzymes Interpretation Comment . [facility] Comment on above: The LDH isoenzyme pa ttern appears normal with a normaltotal LDH. Iron (Unsp spec) [Mass/Mass] Ordered By: Jc Torres on 05-29-2024 Iron [Mass/Vol] 20 ug/dL Low 50-170 [facility] Iron measurement (mass/mass) Ordered By: Jc Torres on 05-29-2024 Iron (Unsp spec) [Mass/Mass] 20 ug/dL Low 50-170 [facility] Iron saturation [Mass fracti on]Ordered By: Jc Torres on 05-29-2024 Iron Saturation 5.0 % Low 15.0-55.0 [facility] Iron+Iron Binding Capacityon 05-29-2024 Iron [Mass/Vol] 20 ug/dL Low 50-170 [facility] Comment on above: Performed By: #### L 801.2650, L501.32796, L506.1000, L503.6550, L801.1541, L500.4100, L506.0400, L101.9900, L504.2610, L501.9310, L501.5101, L501.9186, L801.1543, L100.0100, L501.9520, L503.6030, L501.9985, L3400.1350, L3250.0100, L3100.7870, L803.0600, L3300.7100, L500.4050, L3300.0100, L3300.6900, L3300.1900, L300.4700, L501.1400 #### [facility] [address] [facility] [place], [address] IRON SATURATION 5.0 Low 15.0-55.0 [facility] Comment on above: Performed By: #### L 801.2650, L501.73732, L506.1000, L503.6550, L801.1541, L500.4100, L506.0400, L101.9900, L504.2610, L501.9310, L501.5101, L501.9186, L801.1543, L100.0100, L501.9520, L503.6030, L501.9985, L3400.1350, L3250.0100, L3100.7870, L803.0600, L3300.7100, L500.4050, L3300.0100, L3300.6900, L3300.1900, L300.4700, L501.1400 #### [facility] [address] [facility] [place], [address] TIBC 440 ug/dL Normal 250-450 [facility] Comment on above: Performed By: #### L 801.2650, L501.59444, L506.1000, L503.6550, L801.1541, L500.4100, L506.0400, L101.9900, L504.2610, L501.9310, L501.5101, L501.9186, L801.1543, L100.0100, L501.9520, L503.6030, L501.9985, L3400.1350, L3250.0100, L3100.7870, L803.0600, L3300.7100, L500.4050, L3300.0100, L3300.6900, L3300.1900, L300.4700, L501.1400 #### [facility] [address] [facility] [place], [address] UIBC 420 ug/dL Normal 228-428 [facility] Comment on above: Performed By: #### L 801.2650, L501.13111, L506.1000, L503.6550, L801.1541, L500.4100, L506.0400, L101.9900, L504.2610, L501.9310, L501.5101, L501.9186, L801.1543, L100.0100, L501.9520, L503.6030, L501.9985, L3400.1350, L3250.0100, L3100.7870, L803.0600, L3300.7100, L500.4050, L3300.0100, L3300.6900, L3300.1900, L300.4700, L501.1400 #### [facility] [address] [facility] [place], [address] L501.9187on 05-29-2024 T3 Total 0.36 ng/mL Low 0.80-2.00 [facility] Comment on above: Performed By: #### L 801.2650, L501.52405, L506.1000, L503.6550, L801.1541, L500.4100, L506.0400, L101.9900, L504.2610, L501.9310, L501.5101, L501.9186, L801.1543, L100.0100, L501.9520, L503.6030, L501.9985, L3400.1350, L3250.0100, L3100.7870, L803.0600, L3300.7100, L500.4050, L3300.0100, L3300.6900, L3300.1900, L300.4700, L501.1400 #### [facility] [address] [facility]. [place], [place], [id number] L509.6001on 05-29-2024 CORTISOL 22.70 ug/dL High 6.02-18.40 [facility] Comment on above: Performed By: #### L 801.2650, L501.28228, L506.1000, L503.6550, L801.1541, L500.4100, L506.0400, L101.9900, L504.2610, L501.9310, L501.5101, L501.9186, L801.1543, L100.0100, L501.9520, L503.6030, L501.9985, L3400.1350, L3250.0100, L3100.7870, L803.0600, L3300.7100, L500.4050, L3300.0100, L3300.6900, L3300.1900, L300.4700, L501.1400 #### [facility] [address] [facility]. [place], [place], [id number] LDHon 05-29-2024 LDH 153 U/L Normal 84-246 [facility] Comment on above: Order Comment: 1 Performed By: #### L 801.2650, L501.46696, L506.1000, L503.6550, L801.1541, L500.4100, L506.0400, L101.9900, L504.2610, L501.9310, L501.5101, L501.9186, L801.1543, L100.0100, L501.9520, L503.6030, L501.9985, L3400.1350, L3250.0100, L3100.7870, L803.0600, L3300.7100, L500.4050, L3300.0100, L3300.6900, L3300.1900, L300.4700, L501.1400 #### [facility] [address] [place], [address] LDH 1 Elph [Catalytic fracti on]Ordered By: Jc Torres on 05-29-2024 LD 1 31 % 17-32 [facility] LDH 2 Elph [Catalytic fracti on]Ordered By: Jc Torres on 05-29-2024 LD 2 37 % 25-40 [facility] LDH 3 Elph [Catalytic fracti on]Ordered By: Jc Torres on 05-29-2024 LD 3 22 % 17-27 [facility] LDH 4 Elph [Catalytic fracti on]Ordered By: Jc Torres on 05-29-2024 LD 4 6 % 5-13 [facility] LDH 5 Elph [Catalytic fracti on]Ordered By: Jc Torres on 05-29-2024 LD 5 4 % 4-20 [facility] - Chemistry and C hemistry - challengeOrdered By: Jc Torres on 05-29-2024 AST [Catalytic activity/Vol] 15 U/L <32 [facility] - Hematology and Cell countsOrdered By: Jc Torres on 05-29-2024 Anisocytosis Ql (Bld) 1+ [facility] Lactate dehydrogenase (LDH) measurementOrdered By: Jc Torres on 05-29-2024 Lactate Dehydrogenase Isoenzymes (T 137 IU/L 119-226 [facility] LDH [Catalytic activity/Vol] 153 U/L 84-246 [facility] Lactate dehydrogenase isoenz yme 1 measurementOrdered By: Jc Torres on 05-29-2024 LDH 1 Elph [Catalytic fraction] 31 % 17-32 [facility] Lactate dehydrogenase isoenz yme 2 measurementOrdered By: Jc Torres on 05-29-2024 LDH 2 Elph [Catalytic fraction] 37 % 25-40 [facility] Lactate dehydrogenase isoenz yme 3 measurementOrdered By: Jc Torres on 05-29-2024 LDH 3 Elph [Catalytic fraction] 22 % 17-27 [facility] Lactate dehydrogenase isoenz yme 4 measurementOrdered By: Jc Torres on 05-29-2024 LDH 4 Elph [Catalytic fraction] 6 % 5-13 [facility] Lactate dehydrogenase isoenz yme 5 measurementOrdered By: Jc Torres on 05-29-2024 LDH 5 Elph [Catalytic fraction] 4 % 4-20 [facility] Lymphocytes Auto (Unsp spec) [#/Vol]Ordered By: Jc Torres on 05-29-2024 Lymphocytes (Bld) [#/Vol] 0.82 10*3/uL Low 0.83-4.51 [facility] Lymphocytes/100 WBC Auto (Un sp spec)Ordered By: Jc Torres on 05-29-2024 Lymphocytes/100 WBC (Bld) 36.0 % 19-41 [facility] MCV (mean corpuscular volume ) determinationOrdered By: Jc Torres on 05-29-2024 MCV (RBC) [Entitic vol] 77.1 fL Low 81-99 [facility] Mean corpuscular hemoglobin (MCH) determinationOrdered By: Jc Torres on 05-29-2024 MCH (RBC) [Entitic mass] 24.3 pg Low 27.0-32.0 [facility] Mean corpuscular hemoglobin concentration (MCHC) determinationOrdered By: Jc Torres on 05-29-2024 MCHC (RBC) [Mass/Vol] 31.5 g/dL Low 32-36 [facility] Mean platelet volume determi nationOrdered By: Jc Torres on 05-29-2024 Platelet mean volume (Bld) [Entitic vol] 11.4 fL 6.2-12.0 [facility] Monocyte percentageOrdered B y: Jc Torres on 03-04-2025 Monocytes/100 WBC (Bld) 9.2 % 0-10 [facility] Neutrophil percentageOrdered By: Jc Torres on 05-29-2024 Neutrophils/100 WBC (Bld) 51.7 % 47-70 [facility] No Panel InformationOrdered By: Jc Torrse on 05-29-2024 Cortisol AM Sample 22.70 ug/dL High 6.02-18.40 [facility] Total Triiodothyronine 0.36 ng/mL Low 0.80-2.[address] [facility] Unsaturated Iron Binding Capacity 420 ug/dL 228-428 [facility] Nucleated red blood cell per centageOrdered By: Jc Torres on 05-29-2024 Nucleated RBC/100 WBC (Bld) [Ratio] 0 % 0-5 [facility] Ovalocyte detectionOrdered B y: Jc Torres on 05-29-2024 Ovalocytes LM Ql (Bld) 1+ [facility] Ovalocytes LM Ql (Bld)Ordere d By: Jc Torres on 05-29-2024 Ovalocytes 1+ [facility] Platelet countOrdered By: Bart Torres on 05-29-2024 Platelets (Bld) [#/Vol] 357 10*3/uL 150-450 [facility] Platelet estimateOrdered By: Jc Torres on 05-29-2024 Platelets LM Ql (Bld) A [facility] Platelets LM Ql (Bld)Ordered By: Jc Torres on 05-29-2024 Platelet Estimate A [facility] Potassium (Unsp spec) [Mass/ Vol]Ordered By: Jc Torres on 05-29-2024 Potassium [Moles/Vol] 3.7 mmol/L 3.3-5.1 [facility] Potassium measurement (mass/ volume)Ordered By: Jc Torres on 05-29-2024 Potassium (Unsp spec) [Mass/Vol] 3.7 mmol/L 3.3-5.1 [facility] RBC Auto (Bld) [#/Vol]Ordere d By: Jc Torres on 05-29-2024 RBC (Bld) [#/Vol] 3.50 10*6/uL Low 4.2-5.4 [facility] HO6Cnietay By: Jc oneal on 05-29-2024 Reverse Triiodothyronine (T3) 21.6 ng/dL 9.2-24.1 [facility] Serum creatinine measurement (mass/volume)Ordered By: Jc Torres on 05-29-2024 Creatinine [Mass/Vol] 0.53 mg/dL Low 0.70-1.20 [facility] Serum globulin measurementOr dered By: Jc Torres on 05-29-2024 Globulin (S) [Mass/Vol] 2.2 g/dL 2.2-4.2 [facility] Serum glucose measurement (m ass/volume)Ordered By: Jc Torres on 05-29-2024 Glucose [Mass/Vol] 84 mg/dL 70-99 [facility] Serum or plasma alanine silva otransferase (ALT) measurementOrdered By: Jc Torres on 05-29-2024 ALT [Catalytic activity/Vol] 29 U/L <35 [facility] Serum or plasma albumin vickie urement (mass/volume)Ordered By: Jc Torres on 05-29-2024 Albumin [Mass/Vol] 4.1 g/dL 3.5-5.0 [facility] Serum or plasma albumin/glob ulin mass ratioOrdered By: Jc Torres on 05-29-2024 Albumin/Globulin [Mass ratio] 1.8 {ratio} 0.9-2.4 [facility] Serum or plasma alkaline barrett sphatase measurementOrdered By: Jc Torres on 05-29-2024 ALP [Catalytic activity/Vol] 90 U/L 35-104 [facility] Serum or plasma calcium vickie urement (mass/volume)Ordered By: Jc Torres on 05-29-2024 Calcium [Mass/Vol] 9.7 mg/dL 7.6-11.0 [facility] Serum or plasma ferritin luigi surement (mass/volume)Ordered By: Jc Torres on 05-29-2024 Ferritin [Mass/Vol] 7 ng/mL Low 22-378 [facility] Serum or plasma iron saturat ion measurement (mass fraction)Ordered By: Jc Torres on 05-29-2024 Iron saturation [Mass fraction] 5.0 % Low 15.0-55.0 [facility] Serum or plasma thyroperoxid ase antibody assay (units/volume)Ordered By: Jc Torres on 05-29-2024 TPO Ab Qn 31 [IU]/mL 0-34 [facility] Comment on above: Performed at: - [facility] [place], [place] [id number] Director: Ortiz Hayden PhD, Phone: [phone] at: [facility] Lab[address] [id number] Director: Neda Sousa MD, Phone: [phone] Serum or plasma urea nitroge n measurement (mass/volume)Ordered By: Jc Torres on 05-29-2024 Urea nitrogen [Mass/Vol] 26 mg/dL High 4-19 [facility] Serum or plasma uric acid me asurement (mass/volume)Ordered By: Jc Torres on 05-29-2024 Urate [Mass/Vol] 4.2 mg/dL 2.6-6.0 [facility] Comment on above: The drugs N-Acetylcy steine and Metamizole may falsely depress this assay. Sodium levelOrdered By: Brandie Torres on 05-29-2024 Sodium [Moles/Vol] 139 mmol/L 133-145 [facility] T3 RUOrdered By: Jc berry on 05-29-2024 T3RU 29 % - [facility] [id number] By: Jc bell on 05-29-2024 Triiodothyronine (T3) Uptake 29 % - [facility] T4 Free Directon 05-29-2024 T4 FREE DIRECT 1.40 ng/dL Normal 0.76-1.46 [facility] Comment on above: Performed By: #### L 801.2650, L501.91832, L506.1000, L503.6550, L801.1541, L500.4100, L506.0400, L101.9900, L504.2610, L501.9310, L501.5101, L501.9186, L801.1543, L100.0100, L501.9520, L503.6030, L501.9985, L3400.1350, L3250.0100, L3100.7870, L803.0600, L3300.7100, L500.4050, L3300.0100, L3300.6900, L3300.1900, L300.4700, L501.1400 #### [facility] [address] [facility] [place], [address] T4 Total, Thyroxinon 025 T4 [Mass/Vol] 7.1 ug/dL Normal 4.8-13.9 [facility] Comment on above: Performed By: #### L 801.2650, L501.27898, L506.1000, L503.6550, L801.1541, L500.4100, L506.0400, L101.9900, L504.2610, L501.9310, L501.5101, L501.9186, L801.1543, L100.0100, L501.9520, L503.6030, L501.9985, L3400.1350, L3250.0100, L3100.7870, L803.0600, L3300.7100, L500.4050, L3300.0100, L3300.6900, L3300.1900, L300.4700, L501.1400 #### [facility] [address] [place], [address] T4 freeOrdered By: Jc frost on 05-29-2024 Free T4 [Mass/Vol] 1.40 ng/dL 0.76-1.46 [facility] TPO Ab QnOrdered By: Jc Torres on 05-29-2024 Thyroid Peroxidase Antibodies 31 IU/mL 0-34 [facility] Comment on above: Performed at: [facility] [place] [address] [id number] Director: Ortiz Hayden PhD, Phone: [phone] at: [facility] [address] [id number] Director: Neda Sousa MD, Phone: [phone] TSH DL <= 0.005 mIU/L QnOrde red By: Jc Torres on 05-29-2024 Thyroid Stimulating Hormone (TSH) 1.870 uIU/mL 0.300-4.200 [facility] TSH Qn 1.870 uIU/mL 0.300-4.200 [facility] Teardrop cell detectionOrder ed By: Jc Torres on 05-29-2024 Dacrocytes LM Ql (Bld) 1+ [facility] Thyroid Stim Hormone (TSH)on 05-29-2024 TSH 1.870 uIU/mL Normal 0.300-4.200 [facility] Comment on above: Performed By: #### L 801.2650, L501.99689, L506.1000, L503.6550, L801.1541, L500.4100, L506.0400, L101.9900, L504.2610, L501.9310, L501.5101, L501.9186, L801.1543, L100.0100, L501.9520, L503.6030, L501.9985, L3400.1350, L3250.0100, L3100.7870, L803.0600, L3300.7100, L500.4050, L3300.0100, L3300.6900, L3300.1900, L300.4700, L501.1400 #### [facility] [address] [place], [place], [id number] ThyroxineOrdered By: Jc Torres on 05-29-2024 T4 [Mass/Vol] 7.1 ug/dL 4.8-13.9 [facility] Total proteinOrdered By: Lissy Torres on 05-29-2024 Protein [Mass/Vol] 6.3 g/dL 5.9-8.4 [facility] Uric Acidon 05-29-2024 URIC 4.2 mg/dL Normal 2.6-6.0 [facility] Comment on above: Result Comment: The drugs N-Acetylcysteine and Metamizole may falsely depress this assay. Performed By: #### L 801.2650, L501.88643, L506.1000, L503.6550, L801.1541, L500.4100, L506.0400, L101.9900, L504.2610, L501.9310, L501.5101, L501.9186, L801.1543, L100.0100, L501.9520, L503.6030, L501.9985, L3400.1350, L3250.0100, L3100.7870, L803.0600, L3300.7100, L500.4050, L3300.0100, L3300.6900, L3300.1900, L300.4700, L501.1400 #### [facility] [address] [place], [address] White blood cell (WBC) count Ordered By: Jc Torres on 05-29-2024 WBC (Bld) [#/Vol] 2.3 10*3/uL Low 4.4-11.0 [facility] Absolute lymphocyte countOrd ered By: Jossie De La Rosa on 05-16-2024 Lymphocytes Auto (Unsp spec) [#/Vol] 0.68 10*3/uL Low 0.83-4.51 [facility] Absolute neutrophil countOrd ered By: Jossie De La Rosa on 05-16-2024 Neutrophils (Bld) [#/Vol] 3.5 10*3/uL 2.0-7.7 [facility] Albumin to globulin ratioOrd ered By: Jossie De La Rosa on 05-16-2024 Albumin/Globulin [Mass ratio] 1.0 {ratio} 0.9-2.4 [facility] Automated lymphocyte count a s percentage of total leukocytesOrdered By: Jossie De La Rosa on 05-16-2024 Lymphocytes/100 WBC Auto (Unsp spec) 14.5 % Low 19-41 [facility] Basophil percentageOrdered B y: Jossie De La Rosa on 05-16-2024 Basophils/100 WBC (Bld) 0.4 % 0-1 [facility] Bilirubin, totalOrdered By: Jossie De La Rosa on 05-16-2024 Bilirubin [Mass/Vol] 0.10 mg/dL Low 0.20-1.00 [facility] Comment on above: For patients on eltr ombopag therapy, use of [place] TBIL is not recommended. Blood urea nitrogen (BUN)/cr eatinine ratioOrdered By: Jossie De La Rosa on 05-16-2024 Urea nitrogen/Creatinine [Mass ratio] 53.8 mg/mg High 10-20 [facility] C-reactive protein measureme nt by high sensitivity methodOrdered By: Jossie De La Rosa on 05-16-2024 C-Reactive Protein Extended Range < 2.90 mg/L 0.0-3.0 [facility] Comment on above: C-Reactive Protein ( CRP) provides useful information for thediagnosis, therapy and monitoring of inflammatory processesand associated diseases. For the evaluation of Relative Riskfor Cardiovascular Disease, a High Sensitivity CRP (HSCRP)should be ordered. CBC W/Diff, Automatedon 04-28 Absolute Lymph 0.68 X10 3/uL Low 0.83-4.51 [facility] Comment on above: Order Comment: 1 Performed By: #### L 801.2650, L501.86130, L506.1000, L503.6550, L801.1541, L500.4100, L506.0400, L101.9900, L504.2610, L501.9310, L501.5101, L501.9186, L801.1543, L100.0100, L501.9520, L503.6030, L501.9985, L3400.1350, L3250.0100, L3100.7870, L803.0600, L3300.7100, L500.4050, L3300.0100, L3300.6900, L3300.1900, L300.4700, L501.1400 #### [facility] [address] [place], [place], [id number] Absolute Neut 3.5 X10 3/uL Normal 2.0-7.7 [facility] Comment on above: Order Comment: 1 Performed By: #### L 801.2650, L501.81613, L506.1000, L503.6550, L801.1541, L500.4100, L506.0400, L101.9900, L504.2610, L501.9310, L501.5101, L501.9186, L801.1543, L100.0100, L501.9520, L503.6030, L501.9985, L3400.1350, L3250.0100, L3100.7870, L803.0600, L3300.7100, L500.4050, L3300.0100, L3300.6900, L3300.1900, L300.4700, L501.1400 #### [facility] [address] [place], [address] Basophils/100 WBC (Bld) 0.4 % Normal 0-1 [facility] Comment on above: Order Comment: 1 Performed By: #### L 801.2650, L501.72135, L506.1000, L503.6550, L801.1541, L500.4100, L506.0400, L101.9900, L504.2610, L501.9310, L501.5101, L501.9186, L801.1543, L100.0100, L501.9520, L503.6030, L501.9985, L3400.1350, L3250.0100, L3100.7870, L803.0600, L3300.7100, L500.4050, L3300.0100, L3300.6900, L3300.1900, L300.4700, L501.1400 #### [facility] [address] [place], [address] Eosinophils/100 WBC (Bld) 1.3 % Normal 0-5 [facility] Comment on above: Order Comment: 1 Performed By: #### L 801.2650, L501.03699, L506.1000, L503.6550, L801.1541, L500.4100, L506.0400, L101.9900, L504.2610, L501.9310, L501.5101, L501.9186, L801.1543, L100.0100, L501.9520, L503.6030, L501.9985, L3400.1350, L3250.0100, L3100.7870, L803.0600, L3300.7100, L500.4050, L3300.0100, L3300.6900, L3300.1900, L300.4700, L501.1400 #### [facility] [address] [place], [address] Erythrocyte distribution width (RBC) [Ratio] 19.7 % High 11.6-14.6 [facility] Comment on above: Order Comment: 1 Performed By: #### L 801.2650, L501.29238, L506.1000, L503.6550, L801.1541, L500.4100, L506.0400, L101.9900, L504.2610, L501.9310, L501.5101, L501.9186, L801.1543, L100.0100, L501.9520, L503.6030, L501.9985, L3400.1350, L3250.0100, L3100.7870, L803.0600, L3300.7100, L500.4050, L3300.0100, L3300.6900, L3300.1900, L300.4700, L501.1400 #### [facility] [address] [place], [address] Hematocrit (Bld) [Volume fraction] 27.1 % Low 37-47 [facility] Comment on above: Order Comment: 1 Performed By: #### L 801.2650, L501.95076, L506.1000, L503.6550, L801.1541, L500.4100, L506.0400, L101.9900, L504.2610, L501.9310, L501.5101, L501.9186, L801.1543, L100.0100, L501.9520, L503.6030, L501.9985, L3400.1350, L3250.0100, L3100.7870, L803.0600, L3300.7100, L500.4050, L3300.0100, L3300.6900, L3300.1900, L300.4700, L501.1400 #### [facility] [address] [facility]. [place], [place], [id number] Hemoglobin (Bld) [Mass/Vol] 8.5 g/dL Low 12.0-15.0 [facility] Comment on above: Order Comment: 1 Performed By: #### L 801.2650, L501.05257, L506.1000, L503.6550, L801.1541, L500.4100, L506.0400, L101.9900, L504.2610, L501.9310, L501.5101, L501.9186, L801.1543, L100.0100, L501.9520, L503.6030, L501.9985, L3400.1350, L3250.0100, L3100.7870, L803.0600, L3300.7100, L500.4050, L3300.0100, L3300.6900, L3300.1900, L300.4700, L501.1400 #### [facility] [address]. [place], [place], [id number] IG% 0.200 Normal 0.0-0.9 [facility] Comment on above: Order Comment: 1 Result Comment: IG% - Immature Granulocytes (promyelocytes, myelocytes and metamyelocytes) > 1% indicates that a LEFT SHIFT is Present. Performed By: #### L 801.2650, L501.02785, L506.1000, L503.6550, L801.1541, L500.4100, L506.0400, L101.9900, L504.2610, L501.9310, L501.5101, L501.9186, L801.1543, L100.0100, L501.9520, L503.6030, L501.9985, L3400.1350, L3250.0100, L3100.7870, L803.0600, L3300.7100, L500.4050, L3300.0100, L3300.6900, L3300.1900, L300.4700, L501.1400 #### [facility] [address] [place], [place], [id number] Lymphocytes/100 WBC (Bld) 14.5 % Low 19-41 [facility] Comment on above: Order Comment: 1 Performed By: #### L 801.2650, L501.17637, L506.1000, L503.6550, L801.1541, L500.4100, L506.0400, L101.9900, L504.2610, L501.9310, L501.5101, L501.9186, L801.1543, L100.0100, L501.9520, L503.6030, L501.9985, L3400.1350, L3250.0100, L3100.7870, L803.0600, L3300.7100, L500.4050, L3300.0100, L3300.6900, L3300.1900, L300.4700, L501.1400 #### [facility] [address] [facility] [place], [place], [id number] MCH (RBC) [Entitic mass] 24.7 pg Low 27.0-32.0 [facility] Comment on above: Order Comment: 1 Performed By: #### L 801.2650, L501.28847, L506.1000, L503.6550, L801.1541, L500.4100, L506.0400, L101.9900, L504.2610, L501.9310, L501.5101, L501.9186, L801.1543, L100.0100, L501.9520, L503.6030, L501.9985, L3400.1350, L3250.0100, L3100.7870, L803.0600, L3300.7100, L500.4050, L3300.0100, L3300.6900, L3300.1900, L300.4700, L501.1400 #### [facility] [address] [place], [address] MCHC (RBC) [Mass/Vol] 31.4 g/dL Low 32-36 [facility] Comment on above: Order Comment: 1 Performed By: #### L 801.2650, L501.19577, L506.1000, L503.6550, L801.1541, L500.4100, L506.0400, L101.9900, L504.2610, L501.9310, L501.5101, L501.9186, L801.1543, L100.0100, L501.9520, L503.6030, L501.9985, L3400.1350, L3250.0100, L3100.7870, L803.0600, L3300.7100, L500.4050, L3300.0100, L3300.6900, L3300.1900, L300.4700, L501.1400 #### [facility] [address] [place], [place], [id number] MCV (RBC) [Entitic vol] 78.8 fL Low 81-99 [facility] Comment on above: Order Comment: 1 Performed By: #### L 801.2650, L501.33853, L506.1000, L503.6550, L801.1541, L500.4100, L506.0400, L101.9900, L504.2610, L501.9310, L501.5101, L501.9186, L801.1543, L100.0100, L501.9520, L503.6030, L501.9985, L3400.1350, L3250.0100, L3100.7870, L803.0600, L3300.7100, L500.4050, L3300.0100, L3300.6900, L3300.1900, L300.4700, L501.1400 #### [facility] [address] [facility] [place], [address] Monocytes/100 WBC (Bld) 8.1 % Normal 0-10 [facility] Comment on above: Order Comment: 1 Performed By: #### L 801.2650, L501.22852, L506.1000, L503.6550, L801.1541, L500.4100, L506.0400, L101.9900, L504.2610, L501.9310, L501.5101, L501.9186, L801.1543, L100.0100, L501.9520, L503.6030, L501.9985, L3400.1350, L3250.0100, L3100.7870, L803.0600, L3300.7100, L500.4050, L3300.0100, L3300.6900, L3300.1900, L300.4700, L501.1400 #### [facility] [address] [facility] [place], [place], [id number] (340 Neutrophils/100 WBC (Bld) 75.5 % High 47-70 [facility] Comment on above: Order Comment: 1 Performed By: #### L 801.2650, L501.65840, L506.1000, L503.6550, L801.1541, L500.4100, L506.0400, L101.9900, L504.2610, L501.9310, L501.5101, L501.9186, L801.1543, L100.0100, L501.9520, L503.6030, L501.9985, L3400.1350, L3250.0100, L3100.7870, L803.0600, L3300.7100, L500.4050, L3300.0100, L3300.6900, L3300.1900, L300.4700, L501.1400 #### [facility] [address] [facility] [place], [address] Nucleated RBC (Bld) [#/Vol] 0 10*3/uL Normal 0-5 [facility] Comment on above: Order Comment: 1 Performed By: #### L 801.2650, L501.58192, L506.1000, L503.6550, L801.1541, L500.4100, L506.0400, L101.9900, L504.2610, L501.9310, L501.5101, L501.9186, L801.1543, L100.0100, L501.9520, L503.6030, L501.9985, L3400.1350, L3250.0100, L3100.7870, L803.0600, L3300.7100, L500.4050, L3300.0100, L3300.6900, L3300.1900, L300.4700, L501.1400 #### [facility] [address] [facility] [place], [address] Platelet mean volume (Bld) [Entitic vol] 11.2 fL Normal 6.2-12.0 [facility] Comment on above: Order Comment: 1 Performed By: #### L 801.2650, L501.86357, L506.1000, L503.6550, L801.1541, L500.4100, L506.0400, L101.9900, L504.2610, L501.9310, L501.5101, L501.9186, L801.1543, L100.0100, L501.9520, L503.6030, L501.9985, L3400.1350, L3250.0100, L3100.7870, L803.0600, L3300.7100, L500.4050, L3300.0100, L3300.6900, L3300.1900, L300.4700, L501.1400 #### [facility] [address] [place], [place], [id number] Platelets (Bld) [#/Vol] 357 10*3/uL Normal 150-450 [facility] Comment on above: Order Comment: 1 Performed By: #### L 801.2650, L501.77710, L506.1000, L503.6550, L801.1541, L500.4100, L506.0400, L101.9900, L504.2610, L501.9310, L501.5101, L501.9186, L801.1543, L100.0100, L501.9520, L503.6030, L501.9985, L3400.1350, L3250.0100, L3100.7870, L803.0600, L3300.7100, L500.4050, L3300.0100, L3300.6900, L3300.1900, L300.4700, L501.1400 #### [facility] [address] [facility] [place], [place], [address] RBC (Bld) [#/Vol] 3.44 10*6/uL Low 4.2-5.4 [facility] Comment on above: Order Comment: 1 Performed By: #### L 801.2650, L501.91450, L506.1000, L503.6550, L801.1541, L500.4100, L506.0400, L101.9900, L504.2610, L501.9310, L501.5101, L501.9186, L801.1543, L100.0100, L501.9520, L503.6030, L501.9985, L3400.1350, L3250.0100, L3100.7870, L803.0600, L3300.7100, L500.4050, L3300.0100, L3300.6900, L3300.1900, L300.4700, L501.1400 #### [facility] [address] [place], [place], [id number] RDW SD 54.5 fl High 35.1-43.9 [facility] Comment on above: Order Comment: 1 Performed By: #### L 801.2650, L501.40972, L506.1000, L503.6550, L801.1541, L500.4100, L506.0400, L101.9900, L504.2610, L501.9310, L501.5101, L501.9186, L801.1543, L100.0100, L501.9520, L503.6030, L501.9985, L3400.1350, L3250.0100, L3100.7870, L803.0600, L3300.7100, L500.4050, L3300.0100, L3300.6900, L3300.1900, L300.4700, L501.1400 #### [facility] [address] [facility] [place], [place], [id number] WBC (Bld) [#/Vol] 4.7 10*3/uL Normal 4.4-11.0 [facility] Comment on above: Order Comment: 1 Performed By: #### L 801.2650, L501.76509, L506.1000, L503.6550, L801.1541, L500.4100, L506.0400, L101.9900, L504.2610, L501.9310, L501.5101, L501.9186, L801.1543, L100.0100, L501.9520, L503.6030, L501.9985, L3400.1350, L3250.0100, L3100.7870, L803.0600, L3300.7100, L500.4050, L3300.0100, L3300.6900, L3300.1900, L300.4700, L501.1400 #### [facility] [address] [facility] [place], [place], [address] CRPon 05-16-2024 C-REACTIVE PROT < 2.90 Normal 0.0-3.0 [facility] Comment on above: Order Comment: 1 Result Comment: C-Re active Protein (CRP) provides useful information for the diagnosis, therapy and monitoring of inflammatory processes and associated diseases. For the evaluation of Relative Risk for Cardiovascular Disease, a High Sensitivity CRP (HSCRP) should be ordered. Performed By: #### L 801.2650, L501.60098, L506.1000, L503.6550, L801.1541, L500.4100, L506.0400, L101.9900, L504.2610, L501.9310, L501.5101, L501.9186, L801.1543, L100.0100, L501.9520, L503.6030, L501.9985, L3400.1350, L3250.0100, L3100.7870, L803.0600, L3300.7100, L500.4050, L3300.0100, L3300.6900, L3300.1900, L300.4700, L501.1400 #### [facility] [address] [place], [place], [id number] Carbon dioxide measurementOr dered By: Jossie De La Rosa on 05-16-2024 CO2 [Moles/Vol] 27.0 mmol/L 21.0-32.0 [facility] Chloride measurementOrdered By: Jossie De La Rosa on 05-16-2024 Chloride [Moles/Vol] 101 mmol/L 98-107 [facility] Comprehensive Metabolic Prof ilon 05-16-2024 Albumin [Mass/Vol] 3.3 g/dL Normal 3.2-5.0 [facility] Comment on above: Order Comment: 1 Performed By: #### L 801.2650, L501.17226, L506.1000, L503.6550, L801.1541, L500.4100, L506.0400, L101.9900, L504.2610, L501.9310, L501.5101, L501.9186, L801.1543, L100.0100, L501.9520, L503.6030, L501.9985, L3400.1350, L3250.0100, L3100.7870, L803.0600, L3300.7100, L500.4050, L3300.0100, L3300.6900, L3300.1900, L300.4700, L501.1400 #### [facility] [address] [facility] [facility] [place], [place], [phone] Albumin/Globulin [Mass ratio] 1.0 {ratio} Normal 0.9-2.4 [facility] Comment on above: Order Comment: 1 Performed By: #### L 801.2650, L501.41291, L506.1000, L503.6550, L801.1541, L500.4100, L506.0400, L101.9900, L504.2610, L501.9310, L501.5101, L501.9186, L801.1543, L100.0100, L501.9520, L503.6030, L501.9985, L3400.1350, L3250.0100, L3100.7870, L803.0600, L3300.7100, L500.4050, L3300.0100, L3300.6900, L3300.1900, L300.4700, L501.1400 #### [facility] [address] [facility] [address] [place], [address] ALK P 98 U/L Normal 45-117 [facility] Comment on above: Order Comment: 1 Performed By: #### L 801.2650, L501.93749, L506.1000, L503.6550, L801.1541, L500.4100, L506.0400, L101.9900, L504.2610, L501.9310, L501.5101, L501.9186, L801.1543, L100.0100, L501.9520, L503.6030, L501.9985, L3400.1350, L3250.0100, L3100.7870, L803.0600, L3300.7100, L500.4050, L3300.0100, L3300.6900, L3300.1900, L300.4700, L501.1400 #### [facility] [address] [facility] [place], [place], [id number] ALT [Catalytic activity/Vol] 28 U/L Normal 13-56 [facility] Comment on above: Order Comment: 1 Performed By: #### L 801.2650, L501.81156, L506.1000, L503.6550, L801.1541, L500.4100, L506.0400, L101.9900, L504.2610, L501.9310, L501.5101, L501.9186, L801.1543, L100.0100, L501.9520, L503.6030, L501.9985, L3400.1350, L3250.0100, L3100.7870, L803.0600, L3300.7100, L500.4050, L3300.0100, L3300.6900, L3300.1900, L300.4700, L501.1400 #### [facility] [address] [facility] [place], [place], [id number] AST [Catalytic activity/Vol] 14 U/L Low 15-37 [facility] Comment on above: Order Comment: 1 Performed By: #### L 801.2650, L501.32633, L506.1000, L503.6550, L801.1541, L500.4100, L506.0400, L101.9900, L504.2610, L501.9310, L501.5101, L501.9186, L801.1543, L100.0100, L501.9520, L503.6030, L501.9985, L3400.1350, L3250.0100, L3100.7870, L803.0600, L3300.7100, L500.4050, L3300.0100, L3300.6900, L3300.1900, L300.4700, L501.1400 #### [facility] [address] [place], [place], [id number] Bilirubin [Mass/Vol] 0.10 mg/dL Low 0.20-1.00 [facility] Comment on above: Order Comment: 1 Result Comment: For patients on eltrombopag therapy, use of [place] TBIL is not recommended. Performed By: #### L 801.2650, L501.38588, L506.1000, L503.6550, L801.1541, L500.4100, L506.0400, L101.9900, L504.2610, L501.9310, L501.5101, L501.9186, L801.1543, L100.0100, L501.9520, L503.6030, L501.9985, L3400.1350, L3250.0100, L3100.7870, L803.0600, L3300.7100, L500.4050, L3300.0100, L3300.6900, L3300.1900, L300.4700, L501.1400 #### [facility] [address] [place], [place], [id number] BUN/CRE 53.8 RATIO High 10-20 [facility] Comment on above: Order Comment: 1 Performed By: #### L 801.2650, L501.46311, L506.1000, L503.6550, L801.1541, L500.4100, L506.0400, L101.9900, L504.2610, L501.9310, L501.5101, L501.9186, L801.1543, L100.0100, L501.9520, L503.6030, L501.9985, L3400.1350, L3250.0100, L3100.7870, L803.0600, L3300.7100, L500.4050, L3300.0100, L3300.6900, L3300.1900, L300.4700, L501.1400 #### [facility] [address] [facility] [place], [place], [id number] CA,Total 9.7 mg/dL Normal 8.5-10.1 [facility] Comment on above: Order Comment: 1 Performed By: #### L 801.2650, L501.75624, L506.1000, L503.6550, L801.1541, L500.4100, L506.0400, L101.9900, L504.2610, L501.9310, L501.5101, L501.9186, L801.1543, L100.0100, L501.9520, L503.6030, L501.9985, L3400.1350, L3250.0100, L3100.7870, L803.0600, L3300.7100, L500.4050, L3300.0100, L3300.6900, L3300.1900, L300.4700, L501.1400 #### [facility] [address] [facility] [place], [place], [id number] Chloride [Moles/Vol] 101 mmol/L Normal 98-107 [facility] Comment on above: Order Comment: 1 Performed By: #### L 801.2650, L501.93607, L506.1000, L503.6550, L801.1541, L500.4100, L506.0400, L101.9900, L504.2610, L501.9310, L501.5101, L501.9186, L801.1543, L100.0100, L501.9520, L503.6030, L501.9985, L3400.1350, L3250.0100, L3100.7870, L803.0600, L3300.7100, L500.4050, L3300.0100, L3300.6900, L3300.1900, L300.4700, L501.1400 #### [facility] [address] [place], [place], [id number] CO2 [Moles/Vol] 27.0 mmol/L Normal 21.0-32.0 [facility] Comment on above: Order Comment: 1 Performed By: #### L 801.2650, L501.40634, L506.1000, L503.6550, L801.1541, L500.4100, L506.0400, L101.9900, L504.2610, L501.9310, L501.5101, L501.9186, L801.1543, L100.0100, L501.9520, L503.6030, L501.9985, L3400.1350, L3250.0100, L3100.7870, L803.0600, L3300.7100, L500.4050, L3300.0100, L3300.6900, L3300.1900, L300.4700, L501.1400 #### [facility] [address] [facility] [place], [place], [id number] Creatinine [Mass/Vol] 0.65 mg/dL Normal 0.55-1.02 [facility] Comment on above: Order Comment: 1 Result Comment: The validity of the calculated GFR GFRAA in patients over 70 years has not been determined. Clinical correlation is essential. Performed By: #### L 801.2650, L501.97160, L506.1000, L503.6550, L801.1541, L500.4100, L506.0400, L101.9900, L504.2610, L501.9310, L501.5101, L501.9186, L801.1543, L100.0100, L501.9520, L503.6030, L501.9985, L3400.1350, L3250.0100, L3100.7870, L803.0600, L3300.7100, L500.4050, L3300.0100, L3300.6900, L3300.1900, L300.4700, L501.1400 #### [facility] [address] [place], [place], [id number] EST GFR - AA 120 mL/min Normal >60 [facility] Comment on above: Order Comment: 1 Result Comment: Afri can [place] GFR Calc Performed By: #### L 801.2650, L501.54835, L506.1000, L503.6550, L801.1541, L500.4100, L506.0400, L101.9900, L504.2610, L501.9310, L501.5101, L501.9186, L801.1543, L100.0100, L501.9520, L503.6030, L501.9985, L3400.1350, L3250.0100, L3100.7870, L803.0600, L3300.7100, L500.4050, L3300.0100, L3300.6900, L3300.1900, L300.4700, L501.1400 #### [facility] [address] [place], [address] GAP 7 Normal 5-15 [facility] Comment on above: Order Comment: 1 Performed By: #### L 801.2650, L501.49236, L506.1000, L503.6550, L801.1541, L500.4100, L506.0400, L101.9900, L504.2610, L501.9310, L501.5101, L501.9186, L801.1543, L100.0100, L501.9520, L503.6030, L501.9985, L3400.1350, L3250.0100, L3100.7870, L803.0600, L3300.7100, L500.4050, L3300.0100, L3300.6900, L3300.1900, L300.4700, L501.1400 #### [facility] [address] [place], [address] GFR/1.73 sq M.predicted among non-blacks MDRD (S/P/Bld) [Vol rate/Area] 99 mL/min/{1.73_m2} Normal >60 [facility] Comment on above: Order Comment: 1 Result Comment: Non- GFR Calc Performed By: #### L 801.2650, L501.03785, L506.1000, L503.6550, L801.1541, L500.4100, L506.0400, L101.9900, L504.2610, L501.9310, L501.5101, L501.9186, L801.1543, L100.0100, L501.9520, L503.6030, L501.9985, L3400.1350, L3250.0100, L3100.7870, L803.0600, L3300.7100, L500.4050, L3300.0100, L3300.6900, L3300.1900, L300.4700, L501.1400 #### [facility] [address] [facility] [address] [place], [place], [address] Globulin (S) [Mass/Vol] 3.3 g/dL Normal 2.2-4.2 [facility] Comment on above: Order Comment: 1 Performed By: #### L 801.2650, L501.43602, L506.1000, L503.6550, L801.1541, L500.4100, L506.0400, L101.9900, L504.2610, L501.9310, L501.5101, L501.9186, L801.1543, L100.0100, L501.9520, L503.6030, L501.9985, L3400.1350, L3250.0100, L3100.7870, L803.0600, L3300.7100, L500.4050, L3300.0100, L3300.6900, L3300.1900, L300.4700, L501.1400 #### [facility] [address] [place], [address] (137) Glucose [Mass/Vol] 89 mg/dL Normal 74-106 [facility] Comment on above: Order Comment: 1 Performed By: #### L 801.2650, L501.22387, L506.1000, L503.6550, L801.1541, L500.4100, L506.0400, L101.9900, L504.2610, L501.9310, L501.5101, L501.9186, L801.1543, L100.0100, L501.9520, L503.6030, L501.9985, L3400.1350, L3250.0100, L3100.7870, L803.0600, L3300.7100, L500.4050, L3300.0100, L3300.6900, L3300.1900, L300.4700, L501.1400 #### [facility] [address] [place], [address] Potassium [Moles/Vol] 4.0 mmol/L Normal 3.5-5.1 [facility] Comment on above: Order Comment: 1 Performed By: #### L 801.2650, L501.47276, L506.1000, L503.6550, L801.1541, L500.4100, L506.0400, L101.9900, L504.2610, L501.9310, L501.5101, L501.9186, L801.1543, L100.0100, L501.9520, L503.6030, L501.9985, L3400.1350, L3250.0100, L3100.7870, L803.0600, L3300.7100, L500.4050, L3300.0100, L3300.6900, L3300.1900, L300.4700, L501.1400 #### [facility] [address] [facility] [place], [address] Sodium [Moles/Vol] 135 mmol/L Low 136-145 [facility] Comment on above: Order Comment: 1 Performed By: #### L 801.2650, L501.99828, L506.1000, L503.6550, L801.1541, L500.4100, L506.0400, L101.9900, L504.2610, L501.9310, L501.5101, L501.9186, L801.1543, L100.0100, L501.9520, L503.6030, L501.9985, L3400.1350, L3250.0100, L3100.7870, L803.0600, L3300.7100, L500.4050, L3300.0100, L3300.6900, L3300.1900, L300.4700, L501.1400 #### [facility] [address] [place], [address] T PROT 6.6 g/dL Normal 6.4-8.2 [facility] Comment on above: Order Comment: 1 Performed By: #### L 801.2650, L501.36976, L506.1000, L503.6550, L801.1541, L500.4100, L506.0400, L101.9900, L504.2610, L501.9310, L501.5101, L501.9186, L801.1543, L100.0100, L501.9520, L503.6030, L501.9985, L3400.1350, L3250.0100, L3100.7870, L803.0600, L3300.7100, L500.4050, L3300.0100, L3300.6900, L3300.1900, L300.4700, L501.1400 #### [facility] [address] [facility] [place], [address] Urea nitrogen [Mass/Vol] 35 mg/dL High 7-18 [facility] Comment on above: Order Comment: 1 Performed By: #### L 801.2650, L501.50432, L506.1000, L503.6550, L801.1541, L500.4100, L506.0400, L101.9900, L504.2610, L501.9310, L501.5101, L501.9186, L801.1543, L100.0100, L501.9520, L503.6030, L501.9985, L3400.1350, L3250.0100, L3100.7870, L803.0600, L3300.7100, L500.4050, L3300.0100, L3300.6900, L3300.1900, L300.4700, L501.1400 #### [facility] [address] [place], [address] Eosinophil percentageOrdered By: Jossie De La Rosa on 05-16-2024 Eosinophils/100 WBC (Bld) 1.3 % 0-5 [facility] Erythrocyte distribution wid th ratioOrdered By: Jossie De La Rosa on 05-16-2024 Erythrocyte distribution width (RBC) [Ratio] 19.7 % High 11.6-14.6 [facility] Erythrocyte distribution wid th standard deviationOrdered By: Jossie De La Rosa on 05-16-2024 Erythrocyte distribution width (RBC) [Entitic vol] 54.5 fL High 35.1-43.9 [facility] Erythrocyte distribution width (RBC) [Ratio] 54.5 fl High 35.1-43.9 [facility] Estimated glomerular filtrat ion rate (GFR) AmericanOrdered By: Jossie De La Rosa on 05-16-2024 Estimated GFR (MDRD) Amer 120 mL/min >60 [facility] Comment on above: GFR Calc Ferritinon 05-16-2024 Ferritin [Mass/Vol] 6 ng/mL Low 8-252 [facility] Comment on above: Order Comment: 1 Performed By: #### L 801.2650, L501.62690, L506.1000, L503.6550, L801.1541, L500.4100, L506.0400, L101.9900, L504.2610, L501.9310, L501.5101, L501.9186, L801.1543, L100.0100, L501.9520, L503.6030, L501.9985, L3400.1350, L3250.0100, L3100.7870, L803.0600, L3300.7100, L500.4050, L3300.0100, L3300.6900, L3300.1900, L300.4700, L501.1400 #### [facility] [address], [address] Ferritin measurementOrdered By: Jossie De La Rosa on 05-16-2024 Ferritin [Mass/Vol] 6 ng/mL Low 8-252 [facility] Glomerular filtration rate ( GFR) estimationOrdered By: Jossie De La Rosa on 05-16-2024 Estimated GFR (MDRD) Non-Af Amer 99 mL/min >60 [facility] Comment on above: Non- GFR Calc GFR/1.73 sq M.predicted among non-blacks MDRD (S/P/Bld) [Vol rate/Area] 99 mL/min/{1.73_m2} >60 [facility] Comment on above: Non- GFR Calc Glucose measurementOrdered B y: Jossie De La Rosa on 05-16-2024 Glucose [Mass/Vol] 89 mg/dL 74-106 [facility] Hematocrit Auto (Bld) [Volum e fraction]Ordered By: Jossie De La Rosa on 05-16-2024 Hematocrit (Bld) [Volume fraction] 27.1 % Low 37-47 [facility] Hemoglobin measurementOrdere d By: Jossie De La Rosa on 05-16-2024 Hemoglobin (Bld) [Mass/Vol] 8.5 g/dL Low 12.0-15.0 [facility] Immature granulocytes/100 WB C Auto (Bld)Ordered By: Jossie De La Rosa on 05-16-2024 Immature granulocytes/100 WBC (Bld) 0.200 % 0.0-0.9 [facility] Comment on above: IG% - Immature Granu locytes (promyelocytes, myelocytes and metamyelocytes) > 1% indicates that a LEFT SHIFT is Present. Laboratory - Chemistry and C hemistry - challengeOrdered By: Jossie De La Rosa on 05-16-2024 AST [Catalytic activity/Vol] 14 U/L Low 15-37 [facility] Lymphocytes Auto (Unsp spec) [#/Vol]Ordered By: Jossie De La Rosa on 05-16-2024 Lymphocytes (Bld) [#/Vol] 0.68 10*3/uL Low 0.83-4.51 [facility] Lymphocytes/100 WBC Auto (Un sp spec)Ordered By: Jossie De La Rosa on 05-16-2024 Lymphocytes/100 WBC (Bld) 14.5 % Low 19-41 [facility] [facility] MCV (mean corpuscular volume ) determinationOrdered By: Jossie De La Rosa on 05-16-2024 MCV (RBC) [Entitic vol] 78.8 fL Low 81-99 [facility] Mean corpuscular hemoglobin (MCH) determinationOrdered By: Jossie De La Rosa on 05-16-2024 MCH (RBC) [Entitic mass] 24.7 pg Low 27.0-32.0 [facility] Mean corpuscular hemoglobin concentration (MCHC) determinationOrdered By: Jossie De La Rosa on 05-16-2024 MCHC (RBC) [Mass/Vol] 31.4 g/dL Low 32-36 [facility] Mean platelet volume determi nationOrdered By: Jossie De La Rosa on 05-16-2024 Platelet mean volume (Bld) [Entitic vol] 11.2 fL 6.2-12.0 [facility] Monocyte percentageOrdered B y: Jossie De La Rosa on 05-16-2024 Monocytes/100 WBC (Bld) 8.1 % 0-10 [facility] Neutrophil percentageOrdered By: Jossie De La Rosa on 05-16-2024 Neutrophils/100 WBC (Bld) 75.5 % High 47-70 [facility] Nucleated red blood cell per centageOrdered By: Jossie De La Rosa on 05-16-2024 Nucleated RBC/100 WBC (Bld) [Ratio] 0 % 0-5 [facility] Platelet countOrdered By: Barak De La Rosa on 05-16-2024 Platelets (Bld) [#/Vol] 357 10*3/uL 150-450 [facility] Potassium measurementOrdered By: Jossie De La Rosa on 05-16-2024 Potassium [Moles/Vol] 4.0 mmol/L 3.5-5.1 [facility] RBC Auto (Bld) [#/Vol]Ordere d By: Jossie De La Rosa on 05-16-2024 RBC (Bld) [#/Vol] 3.44 10*6/uL Low 4.2-5.4 [facility] Serum anion gap measurementO rdered By: Jossie De La Rosa on 05-16-2024 Anion gap [Moles/Vol] 7 mmol/L 5-15 [facility] Serum globulin measurementOr dered By: Jossie De La Rosa on 05-16-2024 Globulin (S) [Mass/Vol] 3.3 g/dL 2.2-4.2 [facility] Serum or plasma alanine silva otransferase (ALT) measurementOrdered By: Jossie De La Rosa on 05-16-2024 ALT [Catalytic activity/Vol] 28 U/L 13-56 [facility] Serum or plasma albumin vickie urement (mass/volume)Ordered By: Jossie De La Rosa on 05-16-2024 Albumin [Mass/Vol] 3.3 g/dL 3.2-5.0 [facility] Serum or plasma alkaline barrett sphatase measurementOrdered By: Jossie De La Rosa on 05-16-2024 ALP [Catalytic activity/Vol] 98 U/L 45-117 [facility] Serum or plasma calcium vickie urement (mass/volume)Ordered By: Jossie De La Rosa on 05-16-2024 Calcium [Mass/Vol] 9.7 mg/dL 8.5-10.1 [facility] Serum or plasma creatinine m easurement (mass/volume)Ordered By: Jossie De La Rosa on 05-16-2024 Creatinine [Mass/Vol] 0.65 mg/dL 0.55-1.02 [facility] Comment on above: The validity of the calculated GFR & GFRAA in patients over 70 years has not been determined. Clinical correlation is essential. Serum or plasma urea nitroge n measurement (mass/volume)Ordered By: Jossie De La Rosa on 05-16-2024 Urea nitrogen [Mass/Vol] 35 mg/dL High 7-18 [facility] Sodium levelOrdered By: Jossie De La Rosa on 05-16-2024 Sodium [Moles/Vol] 135 mmol/L Low 136-145 [facility] Total proteinOrdered By: Kitty De La Rosa on 05-16-2024 Protein [Mass/Vol] 6.6 g/dL 6.4-8.2 [facility] White blood cell (WBC) count Ordered By: Jossie De La Rosa on 05-16-2024 WBC (Bld) [#/Vol] 4.7 10*3/uL 4.4-11.0 [facility] ALK Phos Isoenzymeon 025 ALK PHOS, S 93 IU/L Normal 44-121 [facility] Comment on above: Order Comment: 1 Performed By: #### L 801.2650, L501.31146, L506.1000, L503.6550, L801.1541, L500.4100, L506.0400, L101.9900, L504.2610, L501.9310, L501.5101, L501.9186, L801.1543, L100.0100, L501.9520, L503.6030, L501.9985, L3400.1350, L3250.0100, L3100.7870, L803.0600, L3300.7100, L500.4050, L3300.0100, L3300.6900, L3300.1900, L300.4700, L501.1400 #### [facility] [address] [place], [address] BONE FRACTION 52 Normal 14-68 [facility] Comment on above: Order Comment: 1 Performed By: #### L 801.2650, L501.53866, L506.1000, L503.6550, L801.1541, L500.4100, L506.0400, L101.9900, L504.2610, L501.9310, L501.5101, L501.9186, L801.1543, L100.0100, L501.9520, L503.6030, L501.9985, L3400.1350, L3250.0100, L3100.7870, L803.0600, L3300.7100, L500.4050, L3300.0100, L3300.6900, L3300.1900, L300.4700, L501.1400 #### [facility] [address] [facility] [place], [address] INTESTINAL FRAC 0 Normal 0-18 [facility] Comment on above: Order Comment: 1 Performed By: #### L 801.2650, L501.42595, L506.1000, L503.6550, L801.1541, L500.4100, L506.0400, L101.9900, L504.2610, L501.9310, L501.5101, L501.9186, L801.1543, L100.0100, L501.9520, L503.6030, L501.9985, L3400.1350, L3250.0100, L3100.7870, L803.0600, L3300.7100, L500.4050, L3300.0100, L3300.6900, L3300.1900, L300.4700, L501.1400 #### [facility] [address] [facility] [place], [address] LIVER FRACTION 48 Normal 18-85 [facility] Comment on above: Order Comment: 1 Performed By: #### L 801.2650, L501.16596, L506.1000, L503.6550, L801.1541, L500.4100, L506.0400, L101.9900, L504.2610, L501.9310, L501.5101, L501.9186, L801.1543, L100.0100, L501.9520, L503.6030, L501.9985, L3400.1350, L3250.0100, L3100.7870, L803.0600, L3300.7100, L500.4050, L3300.0100, L3300.6900, L3300.1900, L300.4700, L501.1400 #### [facility] [address] [facility], [place], [address] Ceruloplasminon 04-11-2024 CERULOPLASMIN 29.6 mg/dL Normal 19.0-39.0 [facility] Comment on above: Order Comment: 1 Performed By: #### L 801.2650, L501.12293, L506.1000, L503.6550, L801.1541, L500.4100, L506.0400, L101.9900, L504.2610, L501.9310, L501.5101, L501.9186, L801.1543, L100.0100, L501.9520, L503.6030, L501.9985, L3400.1350, L3250.0100, L3100.7870, L803.0600, L3300.7100, L500.4050, L3300.0100, L3300.6900, L3300.1900, L300.4700, L501.1400 #### [facility] [address] [facility]. [place], [place], [address] Copper, Serum or Plasmaon COPPER, SERUM 114 ug/dL Normal 80-158 [facility] Comment on above: Order Comment: 1 Result Comment: Dete ction Limit = 5 Performed By: #### L 801.2650, L501.78179, L506.1000, L503.6550, L801.1541, L500.4100, L506.0400, L101.9900, L504.2610, L501.9310, L501.5101, L501.9186, L801.1543, L100.0100, L501.9520, L503.6030, L501.9985, L3400.1350, L3250.0100, L3100.7870, L803.0600, L3300.7100, L500.4050, L3300.0100, L3300.6900, L3300.1900, L300.4700, L501.1400 #### [facility] [address] [facility], [place], [address] DHEA Sulfateon 04-11-2024 DHEA SULFATE 49.1 ug/dL Normal 29.4-220.5 [facility] Comment on above: Order Comment: 1 Performed By: #### L 801.2650, L501.23743, L506.1000, L503.6550, L801.1541, L500.4100, L506.0400, L101.9900, L504.2610, L501.9310, L501.5101, L501.9186, L801.1543, L100.0100, L501.9520, L503.6030, L501.9985, L3400.1350, L3250.0100, L3100.7870, L803.0600, L3300.7100, L500.4050, L3300.0100, L3300.6900, L3300.1900, L300.4700, L501.1400 #### [facility] [address] [place], [place], [id number] Insulin Levelon 04-11-2024 INSULIN,FASTING 2.9 uIU/mL Normal 2.6-24.9 [facility] Comment on above: Order Comment: 1 Performed By: #### L 801.2650, L501.41452, L506.1000, L503.6550, L801.1541, L500.4100, L506.0400, L101.9900, L504.2610, L501.9310, L501.5101, L501.9186, L801.1543, L100.0100, L501.9520, L503.6030, L501.9985, L3400.1350, L3250.0100, L3100.7870, L803.0600, L3300.7100, L500.4050, L3300.0100, L3300.6900, L3300.1900, L300.4700, L501.1400 #### [facility] [address] [place], [place], [address] Insulin Like Growth Factoron 04-11-2024 SOMATOMEDIN C 113 ng/mL Normal 60-207 [facility] Comment on above: Order Comment: 1 Performed By: #### L 801.2650, L501.02816, L506.1000, L503.6550, L801.1541, L500.4100, L506.0400, L101.9900, L504.2610, L501.9310, L501.5101, L501.9186, L801.1543, L100.0100, L501.9520, L503.6030, L501.9985, L3400.1350, L3250.0100, L3100.7870, L803.0600, L3300.7100, L500.4050, L3300.0100, L3300.6900, L3300.1900, L300.4700, L501.1400 #### [facility] [address] [facility]. [place], [place], [id number] L501.5101on 04-11-2024 GGTP 6 IU/L Normal 0-60 [facility] Comment on above: Order Comment: 1 Performed By: #### L 801.2650, L501.53151, L506.1000, L503.6550, L801.1541, L500.4100, L506.0400, L101.9900, L504.2610, L501.9310, L501.5101, L501.9186, L801.1543, L100.0100, L501.9520, L503.6030, L501.9985, L3400.1350, L3250.0100, L3100.7870, L803.0600, L3300.7100, L500.4050, L3300.0100, L3300.6900, L3300.1900, L300.4700, L501.1400 #### [facility] [address] [facility]. [place], [place], [id number] L801.2650on 04-11-2024 T3UP 30 Normal 24-39 [facility] Comment on above: Order Comment: 1 Performed By: #### L 801.2650, L501.22022, L506.1000, L503.6550, L801.1541, L500.4100, L506.0400, L101.9900, L504.2610, L501.9310, L501.5101, L501.9186, L801.1543, L100.0100, L501.9520, L503.6030, L501.9985, L3400.1350, L3250.0100, L3100.7870, L803.0600, L3300.7100, L500.4050, L3300.0100, L3300.6900, L3300.1900, L300.4700, L501.1400 #### [facility] [address] [place], [address] LDH Isoenzymeon 04-11-2024 INTERPRETATION Comment Normal . [facility] Comment on above: Order Comment: 1 Result Comment: The LDH isoenzyme pattern is non-specific. Recommend correlation with the clinical condition of the patient. Performed By: #### L 801.2650, L501.89314, L506.1000, L503.6550, L801.1541, L500.4100, L506.0400, L101.9900, L504.2610, L501.9310, L501.5101, L501.9186, L801.1543, L100.0100, L501.9520, L503.6030, L501.9985, L3400.1350, L3250.0100, L3100.7870, L803.0600, L3300.7100, L500.4050, L3300.0100, L3300.6900, L3300.1900, L300.4700, L501.1400 #### [facility] [address] [place], [address] LDH 144 IU/L Normal 119-226 [facility] Comment on above: Order Comment: 1 Performed By: #### L 801.2650, L501.72408, L506.1000, L503.6550, L801.1541, L500.4100, L506.0400, L101.9900, L504.2610, L501.9310, L501.5101, L501.9186, L801.1543, L100.0100, L501.9520, L503.6030, L501.9985, L3400.1350, L3250.0100, L3100.7870, L803.0600, L3300.7100, L500.4050, L3300.0100, L3300.6900, L3300.1900, L300.4700, L501.1400 #### [facility] [address] [facility] [place], [address] LDH Fraction 1 35 High 17-32 [facility] Comment on above: Order Comment: 1 Performed By: #### L 801.2650, L501.82384, L506.1000, L503.6550, L801.1541, L500.4100, L506.0400, L101.9900, L504.2610, L501.9310, L501.5101, L501.9186, L801.1543, L100.0100, L501.9520, L503.6030, L501.9985, L3400.1350, L3250.0100, L3100.7870, L803.0600, L3300.7100, L500.4050, L3300.0100, L3300.6900, L3300.1900, L300.4700, L501.1400 #### [facility] [address] [facility] [place], [address] LDH Fraction 2 35 Normal 25-40 [facility] Comment on above: Order Comment: 1 Performed By: #### L 801.2650, L501.51173, L506.1000, L503.6550, L801.1541, L500.4100, L506.0400, L101.9900, L504.2610, L501.9310, L501.5101, L501.9186, L801.1543, L100.0100, L501.9520, L503.6030, L501.9985, L3400.1350, L3250.0100, L3100.7870, L803.0600, L3300.7100, L500.4050, L3300.0100, L3300.6900, L3300.1900, L300.4700, L501.1400 #### [facility] [address] [place], [address] LDH Fraction 3 21 Normal 17-27 [facility] Comment on above: Order Comment: 1 Performed By: #### L 801.2650, L501.12878, L506.1000, L503.6550, L801.1541, L500.4100, L506.0400, L101.9900, L504.2610, L501.9310, L501.5101, L501.9186, L801.1543, L100.0100, L501.9520, L503.6030, L501.9985, L3400.1350, L3250.0100, L3100.7870, L803.0600, L3300.7100, L500.4050, L3300.0100, L3300.6900, L3300.1900, L300.4700, L501.1400 #### [facility] [address] [facility] [place], [address] LDH Fraction 4 5 Normal 5-13 [facility] Comment on above: Order Comment: 1 Performed By: #### L 801.2650, L501.36593, L506.1000, L503.6550, L801.1541, L500.4100, L506.0400, L101.9900, L504.2610, L501.9310, L501.5101, L501.9186, L801.1543, L100.0100, L501.9520, L503.6030, L501.9985, L3400.1350, L3250.0100, L3100.7870, L803.0600, L3300.7100, L500.4050, L3300.0100, L3300.6900, L3300.1900, L300.4700, L501.1400 #### [facility] [address] [place], [place], [id number] LDH Fraction 5 4 Normal 4-20 [facility] Comment on above: Order Comment: 1 Performed By: #### L 801.2650, L501.46211, L506.1000, L503.6550, L801.1541, L500.4100, L506.0400, L101.9900, L504.2610, L501.9310, L501.5101, L501.9186, L801.1543, L100.0100, L501.9520, L503.6030, L501.9985, L3400.1350, L3250.0100, L3100.7870, L803.0600, L3300.7100, L500.4050, L3300.0100, L3300.6900, L3300.1900, L300.4700, L501.1400 #### [facility] [address] [facility] [place], [address] T3 Reverseon 04-11-2024 T3 REVERSE 20.2 ng/dL Normal 9.2-24.1 [facility] Comment on above: Order Comment: 1 Performed By: #### L 801.2650, L501.86360, L506.1000, L503.6550, L801.1541, L500.4100, L506.0400, L101.9900, L504.2610, L501.9310, L501.5101, L501.9186, L801.1543, L100.0100, L501.9520, L503.6030, L501.9985, L3400.1350, L3250.0100, L3100.7870, L803.0600, L3300.7100, L500.4050, L3300.0100, L3300.6900, L3300.1900, L300.4700, L501.1400 #### [facility] [address] [place], [place], [id number] Thyroid Peroxidase ABon 03-28 THYR PEROX AB 27 IU/mL Normal 0-34 [facility] Comment on above: Order Comment: 1 Result Comment: Perf ormed at: - [facility] [address] [id number] [employer]: Ortiz Hayden PhD, Phone: [phone] Performed at: [facility] [id number] [employer]: Neda Sousa MD, Phone: [phone] Performed By: #### L 801.2650, L501.01251, L506.1000, L503.6550, L801.1541, L500.4100, L506.0400, L101.9900, L504.2610, L501.9310, L501.5101, L501.9186, L801.1543, L100.0100, L501.9520, L503.6030, L501.9985, L3400.1350, L3250.0100, L3100.7870, L803.0600, L3300.7100, L500.4050, L3300.0100, L3300.6900, L3300.1900, L300.4700, L501.1400 #### [facility] [address] [place], [address] CRP, High Sensitivity [id number] on 04-10-2024 CRP, HIGH SENS 0.27 mg/L Normal 0.00-3.00 [facility] Comment on above: Result Comment: Rela tive Risk for Future Cardiovascular Event Low <1.00 Average 1.00 - 3.00 High >3.00 Performed By: #### L 801.2650, L501.48080, L506.1000, L503.6550, L801.1541, L500.4100, L506.0400, L101.9900, L504.2610, L501.9310, L501.5101, L501.9186, L801.1543, L100.0100, L501.9520, L503.6030, L501.9985, L3400.1350, L3250.0100, L3100.7870, L803.0600, L3300.7100, L500.4050, L3300.0100, L3300.6900, L3300.1900, L300.4700, L501.1400 #### [facility] [address] [place], [address] L803.0600on 04-10-2024 HOMOCYSTEINE 8.2 umol/L Normal 0.0-14.5 [facility] Comment on above: Result Comment: Perf ormed at: [address] [id number] [employer]: Neda Sousa MD, Phone: [phone] Performed at: [address] [id number] [employer]: Ortiz Hayden PhD, Phone: [phone] Performed By: #### L 801.2650, L501.59900, L506.1000, L503.6550, L801.1541, L500.4100, L506.0400, L101.9900, L504.2610, L501.9310, L501.5101, L501.9186, L801.1543, L100.0100, L501.9520, L503.6030, L501.9985, L3400.1350, L3250.0100, L3100.7870, L803.0600, L3300.7100, L500.4050, L3300.0100, L3300.6900, L3300.1900, L300.4700, L501.1400 #### [facility] [address] [place], [address] N-Telopeptide,Ur X Linkon INTERPRET.GUIDE Normal [facility] Comment on above: Result Comment: The N-telopeptide and Creatinine are used to calculate the N-telo/Creat. Ratio which is referred to as NTx. Suggested guidelines for the clinical use of NTx are as follows: 1. Menopausal Women not on Hormone Replacement Therapy (HRT): Women with a baseline NTx value >38 are at significant risk for a decrease in bone mineral density (BMD) after 1 year compared to women on HRT. The probability of a decline in BMD increases with NTx value as follows: (1): Baseline NTx Probability of Decrease in BMD 18- 38 1.4 p=0.28 38- 51 2.5 p=0.03 51- 67 3.8 p=0.0006 67-188 17.3 p=0.0001 2. Menopausal Women Receiving Antiresorptive Therapy: The probability that treatment is effective after three months is increased when the measured NTx value is or=30% from baseline.[1] 3. Patients with Paget's Disease of Bone: The probability that treatment is effective after one month is increased when the measured NTx value is within the reference range, or NTx has decreased >or=30% from baseline.[2] 1. Chauncey CH, Sara NH, Eduar GS, et al. Am J Med, 102:29-37,1997. (1):M757, 1996. 2. Bone H, Julio Cesar J, et al. J Bone Min Res.11(1):M757,1995 Performed By: #### L 801.2650, L501.40223, L506.1000, L503.6550, L801.1541, L500.4100, L506.0400, L101.9900, L504.2610, L501.9310, L501.5101, L501.9186, L801.1543, L100.0100, L501.9520, L503.6030, L501.9985, L3400.1350, L3250.0100, L3100.7870, L803.0600, L3300.7100, L500.4050, L3300.0100, L3300.6900, L3300.1900, L300.4700, L501.1400 #### [facility] [address] [place], [place], [id number] L3410.9999on 04-09-2024 [facility] COM[facility] Normal . [facility] Comment on above: Order Comment: 1 Result Comment: Test Ordered: [id number] VEGF, Plasma Test(s) 305937-KJDK, Plasma This test was developed and its performance characteristics determined by [facility]. It has not been cleared or approved by the Food and Drug Administration. VEGF, Plasma 288 [H ] pg/mL Reference Range: 0-115 [employer] Quantikine Enzyme Immunoassay (EIA) Values obtained with different assay methods or kits cannot be used interchangeably. Results cannot be interpreted as absolute evidence of the presence or absence of malignant disease. Performed at: [address] [id number] [employer]: Neda Sousa MD, Phone: [phone] Performed at: [address] [id number] [employer]: Ortiz Hayden PhD, Phone: [phone] Performed By: #### L 801.2650, L501.49832, L506.1000, L503.6550, L801.1541, L500.4100, L506.0400, L101.9900, L504.2610, L501.9310, L501.5101, L501.9186, L801.1543, L100.0100, L501.9520, L503.6030, L501.9985, L3400.1350, L3250.0100, L3100.7870, L803.0600, L3300.7100, L500.4050, L3300.0100, L3300.6900, L3300.1900, L300.4700, L501.1400 #### [facility] [address] [facility] [place], [address] [id number] DOrdered By: Lynette Torres on 04-05-2024 Vitamin D 25-Hydroxy 83.7 ng/mL [facility] Comment on above: Vitamin D 25(OH) Sta tus Range Deficiency <20 ng/mL (50nmol/L) Insufficiency 20 - 30 ng/mL (50 - 75 nmol/L) Sufficiency 30 - 100 ng/mL (75 - 250 nmol/L) Toxicity >100 ng/mL (>250 nmol/L) ALP Bone [Catalytic fraction ]Ordered By: Jc Torres on 04-05-2024 Alkaline Phosphatase Iso-Bone 52 % 14-68 [facility] ALP Intest [Catalytic fracti on]Ordered By: Jc Torres on 04-05-2024 Alkaline Phosphatase Iso-Intestine 0 % 0-18 [facility] ALP Liver [Catalytic fractio n]Ordered By: Jc Torres on 04-05-2024 Alkaline Phosphatase Iso-Liver 48 % 18-85 [facility] Absolute neutrophil countOrd ered By: Jc Torres on 04-05-2024 Neutrophils (Bld) [#/Vol] 1.4 10*3/uL Low 2.0-7.7 [facility] Albumin to globulin ratioOrd ered By: Jc Torres on 04-05-2024 Albumin/Globulin [Mass ratio] 1.0 {ratio} 0.9-2.4 [facility] Alkaline phosphatase, serumO rdered By: Jc Torres on 04-05-2024 Alkaline Phosphatase Isoenzymes 93 IU/L 44-121 [facility] Basophil percentageOrdered B y: Jc Torres on 04-05-2024 Basophils/100 WBC (Bld) 1.6 % High 0-1 [facility] Bilirubin, totalOrdered By: Jc Torres on 04-05-2024 Bilirubin [Mass/Vol] 0.20 mg/dL 0.20-1.00 [facility] Comment on above: For patients on eltr ombopag therapy, use of [place] TBIL is not recommended. Blood urea nitrogen (BUN)/cr eatinine ratioOrdered By: Jc Torres on 04-05-2024 Urea nitrogen/Creatinine [Mass ratio] 36.4 mg/mg High 10-20 [facility] C-reactive protein measureme nt by high sensitivity methodOrdered By: Jc Torres on 04-05-2024 C-Reactive Protein High Sensitivity 0.27 mg/L 0.00-3.00 [facility] Comment on above: Relative Risk for Fu ture Cardiovascular Event Low <1.00 Average 1.00 - 3.00 High >3.00 CBC W/Diff, Automatedon 01- Absolute Lymph 0.77 X10 3/uL Low 0.83-4.51 [facility] Comment on above: Performed By: #### L 801.2650, L501.50567, L506.1000, L503.6550, L801.1541, L500.4100, L506.0400, L101.9900, L504.2610, L501.9310, L501.5101, L501.9186, L801.1543, L100.0100, L501.9520, L503.6030, L501.9985, L3400.1350, L3250.0100, L3100.7870, L803.0600, L3300.7100, L500.4050, L3300.0100, L3300.6900, L3300.1900, L300.4700, L501.1400 #### [facility] [address] [place], [address] Absolute Neut 1.4 X10 3/uL Low 2.0-7.7 [facility] Comment on above: Performed By: #### L 801.2650, L501.53995, L506.1000, L503.6550, L801.1541, L500.4100, L506.0400, L101.9900, L504.2610, L501.9310, L501.5101, L501.9186, L801.1543, L100.0100, L501.9520, L503.6030, L501.9985, L3400.1350, L3250.0100, L3100.7870, L803.0600, L3300.7100, L500.4050, L3300.0100, L3300.6900, L3300.1900, L300.4700, L501.1400 #### [facility] [address] [facility]. [place], [place], [phone]) Basophils/100 WBC (Bld) 1.6 % High 0-1 [facility] Comment on above: Performed By: #### L 801.2650, L501.58035, L506.1000, L503.6550, L801.1541, L500.4100, L506.0400, L101.9900, L504.2610, L501.9310, L501.5101, L501.9186, L801.1543, L100.0100, L501.9520, L503.6030, L501.9985, L3400.1350, L3250.0100, L3100.7870, L803.0600, L3300.7100, L500.4050, L3300.0100, L3300.6900, L3300.1900, L300.4700, L501.1400 #### [facility] [address] [facility]. [place], [place], [id number] Eosinophils/100 WBC (Bld) 2.4 % Normal 0-5 [facility] Comment on above: Performed By: #### L 801.2650, L501.55649, L506.1000, L503.6550, L801.1541, L500.4100, L506.0400, L101.9900, L504.2610, L501.9310, L501.5101, L501.9186, L801.1543, L100.0100, L501.9520, L503.6030, L501.9985, L3400.1350, L3250.0100, L3100.7870, L803.0600, L3300.7100, L500.4050, L3300.0100, L3300.6900, L3300.1900, L300.4700, L501.1400 #### [facility] [address] [place], [place], [id number] Erythrocyte distribution width (RBC) [Ratio] 17.5 % High 11.6-14.6 [facility] Comment on above: Performed By: #### L 801.2650, L501.69871, L506.1000, L503.6550, L801.1541, L500.4100, L506.0400, L101.9900, L504.2610, L501.9310, L501.5101, L501.9186, L801.1543, L100.0100, L501.9520, L503.6030, L501.9985, L3400.1350, L3250.0100, L3100.7870, L803.0600, L3300.7100, L500.4050, L3300.0100, L3300.6900, L3300.1900, L300.4700, L501.1400 #### [facility] [address] [place], [place], [id number] Hematocrit (Bld) [Volume fraction] 28.9 % Low 37-47 [facility] Comment on above: Performed By: #### L 801.2650, L501.02995, L506.1000, L503.6550, L801.1541, L500.4100, L506.0400, L101.9900, L504.2610, L501.9310, L501.5101, L501.9186, L801.1543, L100.0100, L501.9520, L503.6030, L501.9985, L3400.1350, L3250.0100, L3100.7870, L803.0600, L3300.7100, L500.4050, L3300.0100, L3300.6900, L3300.1900, L300.4700, L501.1400 #### [facility] [address] [place], [place], [id number] (952) Hemoglobin (Bld) [Mass/Vol] 9.0 g/dL Low 12.0-15.0 [facility] Comment on above: Performed By: #### L 801.2650, L501.19802, L506.1000, L503.6550, L801.1541, L500.4100, L506.0400, L101.9900, L504.2610, L501.9310, L501.5101, L501.9186, L801.1543, L100.0100, L501.9520, L503.6030, L501.9985, L3400.1350, L3250.0100, L3100.7870, L803.0600, L3300.7100, L500.4050, L3300.0100, L3300.6900, L3300.1900, L300.4700, L501.1400 #### [facility] [address] [place], [address] IG% 0.400 Normal 0.0-0.9 [facility] Comment on above: Result Comment: IG% - Immature Granulocytes (promyelocytes, myelocytes and metamyelocytes) > 1% indicates that a LEFT SHIFT is Present. Performed By: #### L 801.2650, L501.98028, L506.1000, L503.6550, L801.1541, L500.4100, L506.0400, L101.9900, L504.2610, L501.9310, L501.5101, L501.9186, L801.1543, L100.0100, L501.9520, L503.6030, L501.9985, L3400.1350, L3250.0100, L3100.7870, L803.0600, L3300.7100, L500.4050, L3300.0100, L3300.6900, L3300.1900, L300.4700, L501.1400 #### [facility] [address] [place], [address] Lymphocytes/100 WBC (Bld) 30.4 % Normal 19-41 [facility] Comment on above: Performed By: #### L 801.2650, L501.23469, L506.1000, L503.6550, L801.1541, L500.4100, L506.0400, L101.9900, L504.2610, L501.9310, L501.5101, L501.9186, L801.1543, L100.0100, L501.9520, L503.6030, L501.9985, L3400.1350, L3250.0100, L3100.7870, L803.0600, L3300.7100, L500.4050, L3300.0100, L3300.6900, L3300.1900, L300.4700, L501.1400 #### [facility] [address] [facility] [place], [place], [id number] MCH (RBC) [Entitic mass] 25.6 pg Low 27.0-32.0 [facility] Comment on above: Performed By: #### L 801.2650, L501.86686, L506.1000, L503.6550, L801.1541, L500.4100, L506.0400, L101.9900, L504.2610, L501.9310, L501.5101, L501.9186, L801.1543, L100.0100, L501.9520, L503.6030, L501.9985, L3400.1350, L3250.0100, L3100.7870, L803.0600, L3300.7100, L500.4050, L3300.0100, L3300.6900, L3300.1900, L300.4700, L501.1400 #### [facility] [address] [place], [address] MCHC (RBC) [Mass/Vol] 31.1 g/dL Low 32-36 [facility] Comment on above: Performed By: #### L 801.2650, L501.42421, L506.1000, L503.6550, L801.1541, L500.4100, L506.0400, L101.9900, L504.2610, L501.9310, L501.5101, L501.9186, L801.1543, L100.0100, L501.9520, L503.6030, L501.9985, L3400.1350, L3250.0100, L3100.7870, L803.0600, L3300.7100, L500.4050, L3300.0100, L3300.6900, L3300.1900, L300.4700, L501.1400 #### [facility] [address] [facility] [place], [place], [id number] MCV (RBC) [Entitic vol] 82.1 fL Normal 81-99 [facility] Comment on above: Performed By: #### L 801.2650, L501.89816, L506.1000, L503.6550, L801.1541, L500.4100, L506.0400, L101.9900, L504.2610, L501.9310, L501.5101, L501.9186, L801.1543, L100.0100, L501.9520, L503.6030, L501.9985, L3400.1350, L3250.0100, L3100.7870, L803.0600, L3300.7100, L500.4050, L3300.0100, L3300.6900, L3300.1900, L300.4700, L501.1400 #### [facility] [address] [facility] [place], [place], [id number] Monocytes/100 WBC (Bld) 10.7 % High 0-10 [facility] Comment on above: Performed By: #### L 801.2650, L501.50233, L506.1000, L503.6550, L801.1541, L500.4100, L506.0400, L101.9900, L504.2610, L501.9310, L501.5101, L501.9186, L801.1543, L100.0100, L501.9520, L503.6030, L501.9985, L3400.1350, L3250.0100, L3100.7870, L803.0600, L3300.7100, L500.4050, L3300.0100, L3300.6900, L3300.1900, L300.4700, L501.1400 #### [facility] [address] [place], [address] Neutrophils/100 WBC (Bld) 54.5 % Normal 47-70 [facility] Comment on above: Performed By: #### L 801.2650, L501.93312, L506.1000, L503.6550, L801.1541, L500.4100, L506.0400, L101.9900, L504.2610, L501.9310, L501.5101, L501.9186, L801.1543, L100.0100, L501.9520, L503.6030, L501.9985, L3400.1350, L3250.0100, L3100.7870, L803.0600, L3300.7100, L500.4050, L3300.0100, L3300.6900, L3300.1900, L300.4700, L501.1400 #### [facility] [address] [place], [address] Nucleated RBC (Bld) [#/Vol] 0 10*3/uL Normal 0-5 [facility] Comment on above: Performed By: #### L 801.2650, L501.26236, L506.1000, L503.6550, L801.1541, L500.4100, L506.0400, L101.9900, L504.2610, L501.9310, L501.5101, L501.9186, L801.1543, L100.0100, L501.9520, L503.6030, L501.9985, L3400.1350, L3250.0100, L3100.7870, L803.0600, L3300.7100, L500.4050, L3300.0100, L3300.6900, L3300.1900, L300.4700, L501.1400 #### [facility] [address] [facility] [place], [place], [phone] Platelet mean volume (Bld) [Entitic vol] 10.6 fL Normal 6.2-12.0 [facility] Comment on above: Performed By: #### L 801.2650, L501.98797, L506.1000, L503.6550, L801.1541, L500.4100, L506.0400, L101.9900, L504.2610, L501.9310, L501.5101, L501.9186, L801.1543, L100.0100, L501.9520, L503.6030, L501.9985, L3400.1350, L3250.0100, L3100.7870, L803.0600, L3300.7100, L500.4050, L3300.0100, L3300.6900, L3300.1900, L300.4700, L501.1400 #### [facility] [address] [facility]. [place], [place], [address] Platelets (Bld) [#/Vol] 418 10*3/uL Normal 150-450 [facility] Comment on above: Performed By: #### L 801.2650, L501.27066, L506.1000, L503.6550, L801.1541, L500.4100, L506.0400, L101.9900, L504.2610, L501.9310, L501.5101, L501.9186, L801.1543, L100.0100, L501.9520, L503.6030, L501.9985, L3400.1350, L3250.0100, L3100.7870, L803.0600, L3300.7100, L500.4050, L3300.0100, L3300.6900, L3300.1900, L300.4700, L501.1400 #### [facility] [address] [place], [place], [address] RBC (Bld) [#/Vol] 3.52 10*6/uL Low 4.2-5.4 [facility] Comment on above: Performed By: #### L 801.2650, L501.74859, L506.1000, L503.6550, L801.1541, L500.4100, L506.0400, L101.9900, L504.2610, L501.9310, L501.5101, L501.9186, L801.1543, L100.0100, L501.9520, L503.6030, L501.9985, L3400.1350, L3250.0100, L3100.7870, L803.0600, L3300.7100, L500.4050, L3300.0100, L3300.6900, L3300.1900, L300.4700, L501.1400 #### [facility] [address] [facility] [place], [place], [address] RDW SD 52.4 fl High 35.1-43.9 [facility] Comment on above: Performed By: #### L 801.2650, L501.80842, L506.1000, L503.6550, L801.1541, L500.4100, L506.0400, L101.9900, L504.2610, L501.9310, L501.5101, L501.9186, L801.1543, L100.0100, L501.9520, L503.6030, L501.9985, L3400.1350, L3250.0100, L3100.7870, L803.0600, L3300.7100, L500.4050, L3300.0100, L3300.6900, L3300.1900, L300.4700, L501.1400 #### [facility] [address] [facility] [place], [place], [id number] WBC (Bld) [#/Vol] 2.5 10*3/uL Low 4.4-11.0 [facility] Comment on above: Performed By: #### L 801.2650, L501.07694, L506.1000, L503.6550, L801.1541, L500.4100, L506.0400, L101.9900, L504.2610, L501.9310, L501.5101, L501.9186, L801.1543, L100.0100, L501.9520, L503.6030, L501.9985, L3400.1350, L3250.0100, L3100.7870, L803.0600, L3300.7100, L500.4050, L3300.0100, L3300.6900, L3300.1900, L300.4700, L501.1400 #### [facility] [address] [facility] [place], [place], [id number] CORTISOL SERUMon 04-05-2024 CORTISOL 20.80 ug/dL Normal 3.44-22.45 [facility] Comment on above: Result Comment: Adul t (AM) 5.27 - 22.45 ug/dL Adult (PM) 3.44 - 16.76 ug/dL Performed By: #### L 801.2650, L501.94193, L506.1000, L503.6550, L801.1541, L500.4100, L506.0400, L101.9900, L504.2610, L501.9310, L501.5101, L501.9186, L801.1543, L100.0100, L501.9520, L503.6030, L501.9985, L3400.1350, L3250.0100, L3100.7870, L803.0600, L3300.7100, L500.4050, L3300.0100, L3300.6900, L3300.1900, L300.4700, L501.1400 #### [facility] [address], [address] Carbon dioxide measurementOr dered By: Jc Torres on 04-05-2024 CO2 [Moles/Vol] 28.0 mmol/L 21.0-32.0 [facility] CeruloplasminOrdered By: Lissy Torres on 04-05-2024 Ceruloplasmin 29.6 mg/dL 19.0-39.0 [facility] Chloride measurementOrdered By: Jc Torres on 04-05-2024 Chloride [Moles/Vol] 104 mmol/L 98-107 [facility] Collagen crosslinked N-telop eptide (U) [Mass/Vol]Ordered By: Jc Torres on 04-05-2024 Urine N-Telopeptide 467 nmol BCE Not Estab. [facility] Collagen crosslinked N-telop eptide/Creatinine (U) [Molar ratio]Ordered By: Jc Torres on 04-05-2024 Urine Creatinine/Collagen NTX Ratio 57 0-89 [facility] Comment on above: Result Units: nM BCE /mM Cr Comprehensive Metabolic Prof ilon 04-05-2024 Albumin [Mass/Vol] 3.2 g/dL Normal 3.2-5.0 [facility] Comment on above: Order Comment: 1 Performed By: #### L 801.2650, L501.60238, L506.1000, L503.6550, L801.1541, L500.4100, L506.0400, L101.9900, L504.2610, L501.9310, L501.5101, L501.9186, L801.1543, L100.0100, L501.9520, L503.6030, L501.9985, L3400.1350, L3250.0100, L3100.7870, L803.0600, L3300.7100, L500.4050, L3300.0100, L3300.6900, L3300.1900, L300.4700, L501.1400 #### [facility] [address] [facility] [place], [address] Albumin/Globulin [Mass ratio] 1.0 {ratio} Normal 0.9-2.4 [facility] Comment on above: Order Comment: 1 Performed By: #### L 801.2650, L501.82833, L506.1000, L503.6550, L801.1541, L500.4100, L506.0400, L101.9900, L504.2610, L501.9310, L501.5101, L501.9186, L801.1543, L100.0100, L501.9520, L503.6030, L501.9985, L3400.1350, L3250.0100, L3100.7870, L803.0600, L3300.7100, L500.4050, L3300.0100, L3300.6900, L3300.1900, L300.4700, L501.1400 #### [facility] [address] [facility] [place], [place], [id number] ALK P 92 U/L Normal 45-117 [facility] Comment on above: Order Comment: 1 Performed By: #### L 801.2650, L501.69790, L506.1000, L503.6550, L801.1541, L500.4100, L506.0400, L101.9900, L504.2610, L501.9310, L501.5101, L501.9186, L801.1543, L100.0100, L501.9520, L503.6030, L501.9985, L3400.1350, L3250.0100, L3100.7870, L803.0600, L3300.7100, L500.4050, L3300.0100, L3300.6900, L3300.1900, L300.4700, L501.1400 #### [facility] [address] [place], [place], [id number] ALT [Catalytic activity/Vol] 31 U/L Normal 13-56 [facility] Comment on above: Order Comment: 1 Performed By: #### L 801.2650, L501.77516, L506.1000, L503.6550, L801.1541, L500.4100, L506.0400, L101.9900, L504.2610, L501.9310, L501.5101, L501.9186, L801.1543, L100.0100, L501.9520, L503.6030, L501.9985, L3400.1350, L3250.0100, L3100.7870, L803.0600, L3300.7100, L500.4050, L3300.0100, L3300.6900, L3300.1900, L300.4700, L501.1400 #### [facility] [address] [place], [address] AST [Catalytic activity/Vol] 16 U/L Normal 15-37 [facility] Comment on above: Order Comment: 1 Performed By: #### L 801.2650, L501.04890, L506.1000, L503.6550, L801.1541, L500.4100, L506.0400, L101.9900, L504.2610, L501.9310, L501.5101, L501.9186, L801.1543, L100.0100, L501.9520, L503.6030, L501.9985, L3400.1350, L3250.0100, L3100.7870, L803.0600, L3300.7100, L500.4050, L3300.0100, L3300.6900, L3300.1900, L300.4700, L501.1400 #### [facility] [address] [place], [address] Bilirubin [Mass/Vol] 0.20 mg/dL Normal 0.20-1.00 [facility] Comment on above: Order Comment: 1 Result Comment: For patients on eltrombopag therapy, use of [place] TBIL is not recommended. Performed By: #### L 801.2650, L501.74105, L506.1000, L503.6550, L801.1541, L500.4100, L506.0400, L101.9900, L504.2610, L501.9310, L501.5101, L501.9186, L801.1543, L100.0100, L501.9520, L503.6030, L501.9985, L3400.1350, L3250.0100, L3100.7870, L803.0600, L3300.7100, L500.4050, L3300.0100, L3300.6900, L3300.1900, L300.4700, L501.1400 #### [facility] [address] [place], [address] BUN/CRE 36.4 RATIO High 10-20 [facility] Comment on above: Order Comment: 1 Performed By: #### L 801.2650, L501.08790, L506.1000, L503.6550, L801.1541, L500.4100, L506.0400, L101.9900, L504.2610, L501.9310, L501.5101, L501.9186, L801.1543, L100.0100, L501.9520, L503.6030, L501.9985, L3400.1350, L3250.0100, L3100.7870, L803.0600, L3300.7100, L500.4050, L3300.0100, L3300.6900, L3300.1900, L300.4700, L501.1400 #### [facility] [address] [place], [address] CA,Total 9.5 mg/dL Normal 8.5-10.1 [facility] Comment on above: Order Comment: 1 Performed By: #### L 801.2650, L501.45136, L506.1000, L503.6550, L801.1541, L500.4100, L506.0400, L101.9900, L504.2610, L501.9310, L501.5101, L501.9186, L801.1543, L100.0100, L501.9520, L503.6030, L501.9985, L3400.1350, L3250.0100, L3100.7870, L803.0600, L3300.7100, L500.4050, L3300.0100, L3300.6900, L3300.1900, L300.4700, L501.1400 #### [facility] [address] [place], [address] Chloride [Moles/Vol] 104 mmol/L Normal 98-107 [facility] Comment on above: Order Comment: 1 Performed By: #### L 801.2650, L501.74349, L506.1000, L503.6550, L801.1541, L500.4100, L506.0400, L101.9900, L504.2610, L501.9310, L501.5101, L501.9186, L801.1543, L100.0100, L501.9520, L503.6030, L501.9985, L3400.1350, L3250.0100, L3100.7870, L803.0600, L3300.7100, L500.4050, L3300.0100, L3300.6900, L3300.1900, L300.4700, L501.1400 #### [facility] [address] [facility] [address] [place], [address] CO2 [Moles/Vol] 28.0 mmol/L Normal 21.0-32.0 [facility] Comment on above: Order Comment: 1 Performed By: #### L 801.2650, L501.13718, L506.1000, L503.6550, L801.1541, L500.4100, L506.0400, L101.9900, L504.2610, L501.9310, L501.5101, L501.9186, L801.1543, L100.0100, L501.9520, L503.6030, L501.9985, L3400.1350, L3250.0100, L3100.7870, L803.0600, L3300.7100, L500.4050, L3300.0100, L3300.6900, L3300.1900, L300.4700, L501.1400 #### [facility] [address] [facility] [place], [place], [id number] Creatinine [Mass/Vol] 0.60 mg/dL Normal 0.55-1.02 [facility] Comment on above: Order Comment: 1 Result Comment: The validity of the calculated GFR GFRAA in patients over 70 years has not been determined. Clinical correlation is essential. Performed By: #### L 801.2650, L501.98934, L506.1000, L503.6550, L801.1541, L500.4100, L506.0400, L101.9900, L504.2610, L501.9310, L501.5101, L501.9186, L801.1543, L100.0100, L501.9520, L503.6030, L501.9985, L3400.1350, L3250.0100, L3100.7870, L803.0600, L3300.7100, L500.4050, L3300.0100, L3300.6900, L3300.1900, L300.4700, L501.1400 #### [facility] [address] [place], [address] EST GFR - AA 131 mL/min Normal >60 [facility] Comment on above: Order Comment: 1 Result Comment: Afri can [place] GFR Calc Performed By: #### L 801.2650, L501.89839, L506.1000, L503.6550, L801.1541, L500.4100, L506.0400, L101.9900, L504.2610, L501.9310, L501.5101, L501.9186, L801.1543, L100.0100, L501.9520, L503.6030, L501.9985, L3400.1350, L3250.0100, L3100.7870, L803.0600, L3300.7100, L500.4050, L3300.0100, L3300.6900, L3300.1900, L300.4700, L501.1400 #### [facility] [address] [facility] [place], [address] GAP 5 Normal 5-15 [facility] Comment on above: Order Comment: 1 Performed By: #### L 801.2650, L501.48762, L506.1000, L503.6550, L801.1541, L500.4100, L506.0400, L101.9900, L504.2610, L501.9310, L501.5101, L501.9186, L801.1543, L100.0100, L501.9520, L503.6030, L501.9985, L3400.1350, L3250.0100, L3100.7870, L803.0600, L3300.7100, L500.4050, L3300.0100, L3300.6900, L3300.1900, L300.4700, L501.1400 #### [facility] [address] [facility] [place], [address] GFR/1.73 sq M.predicted among non-blacks MDRD (S/P/Bld) [Vol rate/Area] 108 mL/min/{1.73_m2} Normal >60 [facility] Comment on above: Order Comment: 1 Result Comment: Non- GFR Calc Performed By: #### L 801.2650, L501.65207, L506.1000, L503.6550, L801.1541, L500.4100, L506.0400, L101.9900, L504.2610, L501.9310, L501.5101, L501.9186, L801.1543, L100.0100, L501.9520, L503.6030, L501.9985, L3400.1350, L3250.0100, L3100.7870, L803.0600, L3300.7100, L500.4050, L3300.0100, L3300.6900, L3300.1900, L300.4700, L501.1400 #### [facility] [address] [place], [address] Globulin (S) [Mass/Vol] 3.2 g/dL Normal 2.2-4.2 [facility] Comment on above: Order Comment: 1 Performed By: #### L 801.2650, L501.14754, L506.1000, L503.6550, L801.1541, L500.4100, L506.0400, L101.9900, L504.2610, L501.9310, L501.5101, L501.9186, L801.1543, L100.0100, L501.9520, L503.6030, L501.9985, L3400.1350, L3250.0100, L3100.7870, L803.0600, L3300.7100, L500.4050, L3300.0100, L3300.6900, L3300.1900, L300.4700, L501.1400 #### [facility] [address] [place], [address] Glucose [Mass/Vol] 84 mg/dL Normal 74-106 [facility] Comment on above: Order Comment: 1 Performed By: #### L 801.2650, L501.20642, L506.1000, L503.6550, L801.1541, L500.4100, L506.0400, L101.9900, L504.2610, L501.9310, L501.5101, L501.9186, L801.1543, L100.0100, L501.9520, L503.6030, L501.9985, L3400.1350, L3250.0100, L3100.7870, L803.0600, L3300.7100, L500.4050, L3300.0100, L3300.6900, L3300.1900, L300.4700, L501.1400 #### [facility] [address] [place], [place], [id number] Potassium [Moles/Vol] 3.4 mmol/L Low 3.5-5.1 [facility] Comment on above: Order Comment: 1 Performed By: #### L 801.2650, L501.10910, L506.1000, L503.6550, L801.1541, L500.4100, L506.0400, L101.9900, L504.2610, L501.9310, L501.5101, L501.9186, L801.1543, L100.0100, L501.9520, L503.6030, L501.9985, L3400.1350, L3250.0100, L3100.7870, L803.0600, L3300.7100, L500.4050, L3300.0100, L3300.6900, L3300.1900, L300.4700, L501.1400 #### [facility] [address] [place], [address] Sodium [Moles/Vol] 138 mmol/L Normal 136-145 [facility] Comment on above: Order Comment: 1 Performed By: #### L 801.2650, L501.66881, L506.1000, L503.6550, L801.1541, L500.4100, L506.0400, L101.9900, L504.2610, L501.9310, L501.5101, L501.9186, L801.1543, L100.0100, L501.9520, L503.6030, L501.9985, L3400.1350, L3250.0100, L3100.7870, L803.0600, L3300.7100, L500.4050, L3300.0100, L3300.6900, L3300.1900, L300.4700, L501.1400 #### [facility] [address] [place], [address] T PROT 6.4 g/dL Normal 6.4-8.2 [facility] Comment on above: Order Comment: 1 Performed By: #### L 801.2650, L501.36990, L506.1000, L503.6550, L801.1541, L500.4100, L506.0400, L101.9900, L504.2610, L501.9310, L501.5101, L501.9186, L801.1543, L100.0100, L501.9520, L503.6030, L501.9985, L3400.1350, L3250.0100, L3100.7870, L803.0600, L3300.7100, L500.4050, L3300.0100, L3300.6900, L3300.1900, L300.4700, L501.1400 #### [facility] [address] [place], [address] Urea nitrogen [Mass/Vol] 22 mg/dL High 7-18 [facility] Comment on above: Order Comment: 1 Performed By: #### L 801.2650, L501.58453, L506.1000, L503.6550, L801.1541, L500.4100, L506.0400, L101.9900, L504.2610, L501.9310, L501.5101, L501.9186, L801.1543, L100.0100, L501.9520, L503.6030, L501.9985, L3400.1350, L3250.0100, L3100.7870, L803.0600, L3300.7100, L500.4050, L3300.0100, L3300.6900, L3300.1900, L300.4700, L501.1400 #### [facility] [address] [place], [address] Copper, serumOrdered By: Lissy Torres on 04-05-2024 Serum Copper 114 ug/dL 80-158 [facility] Comment on above: Detection Limit = 5 Cortisol [Mass/Vol]Ordered B y: Jc Torres on 04-05-2024 Cortisol 20.80 ug/dL 3.44-22.45 [facility] Comment on above: Adult (AM) 5.27 - 22 .45 ug/dL Adult (PM) 3.44 - 16.76 ug/dL D-Dimer Quantitative (DVT/PE )on 04-05-2024 D-DIMER QUANT 0.27 FEU/ug/m Normal 0.27-0.49 [facility] Comment on above: Result Comment: NORM AL D-Dimer level (<0.50) indicates no DVT or PE. Performed By: #### L 801.2650, L501.17296, L506.1000, L503.6550, L801.1541, L500.4100, L506.0400, L101.9900, L504.2610, L501.9310, L501.5101, L501.9186, L801.1543, L100.0100, L501.9520, L503.6030, L501.9985, L3400.1350, L3250.0100, L3100.7870, L803.0600, L3300.7100, L500.4050, L3300.0100, L3300.6900, L3300.1900, L300.4700, L501.1400 #### [facility] [address] [place], [place], [id number] D-dimer measurement for deep venous thrombosisOrdered By: Jc Torres on 04-05-2024 D-Dimer Quantitative (PE/DVT) 0.27 FEU/ug/m 0.27-0.49 [facility] Comment on above: NORMAL D-Dimer level (<0.50) indicates no DVT or PE. Dehydroepiandrosterone sulfa te (DHEA-S) measurementOrdered By: Jc Torres on 04-05-2024 Dehydroepiandrosterone Sulfate 49.1 ug/dL 29.4-220.5 [facility] Direct serum free thyroxine (FT4) measurementOrdered By: Jc Torres on 04-05-2024 Free T4 [Mass/Vol] 1.24 ng/dL 0.76-1.46 [facility] Eosinophil percentageOrdered By: Jc Torres on 04-05-2024 Eosinophils/100 WBC (Bld) 2.4 % 0-5 [facility] Erythrocyte Sed Rateon 04-05 SED RATE 11 mm/hr Normal 0-30 [facility] Comment on above: Performed By: #### L 801.2650, L501.14283, L506.1000, L503.6550, L801.1541, L500.4100, L506.0400, L101.9900, L504.2610, L501.9310, L501.5101, L501.9186, L801.1543, L100.0100, L501.9520, L503.6030, L501.9985, L3400.1350, L3250.0100, L3100.7870, L803.0600, L3300.7100, L500.4050, L3300.0100, L3300.6900, L3300.1900, L300.4700, L501.1400 #### [facility] [address] [place], [address] Erythrocyte distribution wid th ratioOrdered By: Jc Torres on 04-05-2024 Erythrocyte distribution width (RBC) [Ratio] 17.5 % High 11.6-14.6 [facility] Erythrocyte distribution wid th standard deviationOrdered By: Jc Torres on 04-05-2024 Erythrocyte distribution width (RBC) [Entitic vol] 52.4 fL High 35.1-43.9 [facility] Erythrocyte sedimentation ra teOrdered By: Jc Torres on 04-05-2024 ESR (Bld) [Velocity] 11 mm/h 0-30 [facility] Estimated glomerular filtrat ion rate (GFR) AmericanOrdered By: Jc Torres on 04-05-2024 Estimated GFR (MDRD) Amer 131 mL/min >60 [facility] Comment on above: GFR Calc Ferritinon 04-05-2024 Ferritin [Mass/Vol] 4 ng/mL Low 8-252 [facility] Comment on above: Order Comment: 1 Performed By: #### L 801.2650, L501.48976, L506.1000, L503.6550, L801.1541, L500.4100, L506.0400, L101.9900, L504.2610, L501.9310, L501.5101, L501.9186, L801.1543, L100.0100, L501.9520, L503.6030, L501.9985, L3400.1350, L3250.0100, L3100.7870, L803.0600, L3300.7100, L500.4050, L3300.0100, L3300.6900, L3300.1900, L300.4700, L501.1400 #### [facility] [address] [place], [address] Ferritin measurementOrdered By: Jc Torres on 04-05-2024 Ferritin [Mass/Vol] 4 ng/mL Low 8-252 [facility] Fibrinogen measurementOrdere d By: Jc Torres on 04-05-2024 Fibrinogen 373 mg/dl Normal 203-444 [facility] Comment on above: Performed By: #### L 801.2650, L501.54360, L506.1000, L503.6550, L801.1541, L500.4100, L506.0400, L101.9900, L504.2610, L501.9310, L501.5101, L501.9186, L801.1543, L100.0100, L501.9520, L503.6030, L501.9985, L3400.1350, L3250.0100, L3100.7870, L803.0600, L3300.7100, L500.4050, L3300.0100, L3300.6900, L3300.1900, L300.4700, L501.1400 #### [facility] [address] [facility] [place], [address] Free T3on 04-05-2024 Free T3 [Mass/Vol] 1.5 pg/mL Low 2.18-3.98 [facility] Comment on above: Order Comment: 1 Performed By: #### L 801.2650, L501.47483, L506.1000, L503.6550, L801.1541, L500.4100, L506.0400, L101.9900, L504.2610, L501.9310, L501.5101, L501.9186, L801.1543, L100.0100, L501.9520, L503.6030, L501.9985, L3400.1350, L3250.0100, L3100.7870, L803.0600, L3300.7100, L500.4050, L3300.0100, L3300.6900, L3300.1900, L300.4700, L501.1400 #### [facility] [address] [facility] [place], [address] Free N7Skkgugg By: Jc frost on 04-05-2024 Free Triiodothyronine (T3) pg/dL 1.5 pg/mL Low 2.18-3.98 [facility] Gamma glutamyl transferase ( GGT) measurementOrdered By: Jc Torres on 04-05-2024 Amylase [Catalytic activity/Vol] 6 U/L 0-60 [facility] Glomerular filtration rate ( GFR) estimationOrdered By: Jc Torres on 04-05-2024 Estimated GFR (MDRD) Non-Af Amer 108 mL/min >60 [facility] Comment on above: Non- GFR Calc Glucose measurementOrdered B y: Jc Torres on 04-05-2024 Glucose [Mass/Vol] 84 mg/dL 74-106 [facility] Hematocrit Auto (Bld) [Volum e fraction]Ordered By: Jc Torres on 04-05-2024 Hematocrit (Bld) [Volume fraction] 28.9 % Low 37-47 [facility] Hemoglobin A1con 04-05-2024 HbA1c (Bld) [Mass fraction] 5.6 % Normal 3.8-5.6 [facility] Comment on above: Result Comment: Norm al < 5.7 % Prediabetic 5.7 - 6.4 % Diabetic >or= 6.5 % Please note range changes. Performed By: #### L 801.2650, L501.35858, L506.1000, L503.6550, L801.1541, L500.4100, L506.0400, L101.9900, L504.2610, L501.9310, L501.5101, L501.9186, L801.1543, L100.0100, L501.9520, L503.6030, L501.9985, L3400.1350, L3250.0100, L3100.7870, L803.0600, L3300.7100, L500.4050, L3300.0100, L3300.6900, L3300.1900, L300.4700, L501.1400 #### [facility] [address] [place], [address] Hemoglobin A1c percentageOrd ered By: Jc Torres on 04-05-2024 HbA1c (Bld) [Mass fraction] 5.6 % 3.8-5.6 [facility] Comment on above: Normal < 5.7 % Predi abetic 5.7 - 6.4 % Diabetic >or= 6.5 % Please note range changes. Hemoglobin measurementOrdere d By: Jc Torres on 04-05-2024 Hemoglobin (Bld) [Mass/Vol] 9.0 g/dL Low 12.0-15.0 [facility] High density lipoprotein (HD L) measurementOrdered By: Jc Torres on 04-05-2024 Cholesterol in HDL [Mass/Vol] 105 mg/dL >40 [facility] Comment on above: The drugs N-Acetylcy steine and Metamizole may falsely depress this assay. Reference Range HDL <40 mg/dL Low HDL Cholesterol HDL >or= 60 mg/dL High HDL Cholesterol Homocysteine measurement (ma ss/volume)Ordered By: Jc Torres on 04-05-2024 Homocysteine 8.2 umol/L 0.0-14.5 [facility] Comment on above: Performed at: [address] [id number] Director: Neda Sousa MD, Phone: [phone] at: - [facility] [id number] Director: Ortiz Hayden PhD, Phone: [phone] Immature granulocytes/100 WB C Auto (Bld)Ordered By: Jc Torres on 04-05-2024 Immature granulocytes/100 WBC (Bld) 0.400 % 0.0-0.9 [facility] Comment on above: IG% - Immature Granu locytes (promyelocytes, myelocytes and metamyelocytes) > 1% indicates that a LEFT SHIFT is Present. Insulin [Mass/Vol]Ordered By : Jc Torres on 04-05-2024 Insulin Level 2.9 uIU/mL 2.6-24.9 [facility] Insulin-like growth factor [ Moles/Vol]Ordered By: Jc Torres on 04-05-2024 Somatomedin-C 113 ng/mL 60-207 [facility] Interpretation of lactate de hydrogenase (LDH) isoenzymes panelOrdered By: Jc Torres on 04-05-2024 LD Isoenzymes Interpretation Comment . [facility] Comment on above: The LDH isoenzyme pa ttern is non-specific. Recommendcorrelation with the clinical condition of the patient. Iron (Unsp spec) [Mass/Mass] Ordered By: Jc Torres on 04-05-2024 Iron [Mass/Vol] 15 ug/dL Low 50-170 [facility] Iron saturation [Mass fracti on]Ordered By: Jc Torres on 04-05-2024 Iron Saturation 3.2 % Low 15.0-55.0 [facility] Iron+Iron Binding Capacityon 04-05-2024 Iron [Mass/Vol] 15 ug/dL Low 50-170 [facility] Comment on above: Order Comment: 1 Performed By: #### L 801.2650, L501.04615, L506.1000, L503.6550, L801.1541, L500.4100, L506.0400, L101.9900, L504.2610, L501.9310, L501.5101, L501.9186, L801.1543, L100.0100, L501.9520, L503.6030, L501.9985, L3400.1350, L3250.0100, L3100.7870, L803.0600, L3300.7100, L500.4050, L3300.0100, L3300.6900, L3300.1900, L300.4700, L501.1400 #### [facility] [address] [place], [address] IRON SATURATION 3.2 Low 15.0-55.0 [facility] Comment on above: Order Comment: 1 Performed By: #### L 801.2650, L501.41242, L506.1000, L503.6550, L801.1541, L500.4100, L506.0400, L101.9900, L504.2610, L501.9310, L501.5101, L501.9186, L801.1543, L100.0100, L501.9520, L503.6030, L501.9985, L3400.1350, L3250.0100, L3100.7870, L803.0600, L3300.7100, L500.4050, L3300.0100, L3300.6900, L3300.1900, L300.4700, L501.1400 #### [facility] [address] [place], [place], [address] TIBC 468 ug/dL High 250-450 [facility] Comment on above: Order Comment: 1 Performed By: #### L 801.2650, L501.18378, L506.1000, L503.6550, L801.1541, L500.4100, L506.0400, L101.9900, L504.2610, L501.9310, L501.5101, L501.9186, L801.1543, L100.0100, L501.9520, L503.6030, L501.9985, L3400.1350, L3250.0100, L3100.7870, L803.0600, L3300.7100, L500.4050, L3300.0100, L3300.6900, L3300.1900, L300.4700, L501.1400 #### [facility] [address] [place], [address] LDHon 04-05-2024 LDH 170 U/L Normal 84-246 [facility] Comment on above: Order Comment: 1 Performed By: #### L 801.2650, L501.20562, L506.1000, L503.6550, L801.1541, L500.4100, L506.0400, L101.9900, L504.2610, L501.9310, L501.5101, L501.9186, L801.1543, L100.0100, L501.9520, L503.6030, L501.9985, L3400.1350, L3250.0100, L3100.7870, L803.0600, L3300.7100, L500.4050, L3300.0100, L3300.6900, L3300.1900, L300.4700, L501.1400 #### [facility] [address] [place], [address] LDH 1 Elph [Catalytic fracti on]Ordered By: Jc Torres on 04-05-2024 LD 1 35 % High 17-32 [facility] LDH 2 Elph [Catalytic fracti on]Ordered By: Jc Torres on 04-05-2024 LD 2 35 % 25-40 [facility] LDH 3 Elph [Catalytic fracti on]Ordered By: Jc Torres on 04-05-2024 LD 3 21 % 17-27 [facility] LDH 4 Elph [Catalytic fracti on]Ordered By: Jc Torres on 04-05-2024 LD 4 5 % 5-13 [facility] LDH 5 Elph [Catalytic fracti on]Ordered By: Jc Torres on 04-05-2024 LD 5 4 % 4-20 [facility] - Chemistry and C hemistry - challengeOrdered By: Jc Torres on 04-05-2024 AST [Catalytic activity/Vol] 16 U/L 15-37 [facility] Lactate dehydrogenase (LDH) measurementOrdered By: Jc Torres on 04-05-2024 Lactate Dehydrogenase Isoenzymes (T 144 IU/L 119-226 [facility] LDH [Catalytic activity/Vol] 170 U/L 84-246 [facility] Lipid Profileon 04-05-2024 Cholesterol [Mass/Vol] 208 mg/dL High [address] [facility] Comment on above: Order Comment: 1 Result Comment: <200 mg/dL Desirable 200-240 mg/dL Borderline >240 mg/dL High Risk Performed By: #### L 801.2650, L501.97329, L506.1000, L503.6550, L801.1541, L500.4100, L506.0400, L101.9900, L504.2610, L501.9310, L501.5101, L501.9186, L801.1543, L100.0100, L501.9520, L503.6030, L501.9985, L3400.1350, L3250.0100, L3100.7870, L803.0600, L3300.7100, L500.4050, L3300.0100, L3300.6900, L3300.1900, L300.4700, L501.1400 #### [facility] [address] [facility] [place], [address] Cholesterol in HDL [Mass/Vol] 105 mg/dL Normal [facility] Comment on above: Order Comment: 1 Result Comment: The drugs N-Acetylcysteine and Metamizole may falsely depress this assay. Reference Range HDL <40 mg/dL Low HDL Cholesterol HDL >or= 60 mg/dL High HDL Cholesterol Performed By: #### L 801.2650, L501.96070, L506.1000, L503.6550, L801.1541, L500.4100, L506.0400, L101.9900, L504.2610, L501.9310, L501.5101, L501.9186, L801.1543, L100.0100, L501.9520, L503.6030, L501.9985, L3400.1350, L3250.0100, L3100.7870, L803.0600, L3300.7100, L500.4050, L3300.0100, L3300.6900, L3300.1900, L300.4700, L501.1400 #### [facility] [address] [facility] [place], [address] Cholesterol in LDL [Mass/Vol] 98 mg/dL Normal 0-130 [facility] Comment on above: Order Comment: 1 Performed By: #### L 801.2650, L501.68985, L506.1000, L503.6550, L801.1541, L500.4100, L506.0400, L101.9900, L504.2610, L501.9310, L501.5101, L501.9186, L801.1543, L100.0100, L501.9520, L503.6030, L501.9985, L3400.1350, L3250.0100, L3100.7870, L803.0600, L3300.7100, L500.4050, L3300.0100, L3300.6900, L3300.1900, L300.4700, L501.1400 #### [facility] [address] [place], [address] Cholesterol in VLDL [Mass/Vol] 5 mg/dL Normal 5-40 [facility] Comment on above: Order Comment: 1 Performed By: #### L 801.2650, L501.86172, L506.1000, L503.6550, L801.1541, L500.4100, L506.0400, L101.9900, L504.2610, L501.9310, L501.5101, L501.9186, L801.1543, L100.0100, L501.9520, L503.6030, L501.9985, L3400.1350, L3250.0100, L3100.7870, L803.0600, L3300.7100, L500.4050, L3300.0100, L3300.6900, L3300.1900, L300.4700, L501.1400 #### [facility] [address] [facility] [place], [address] Triglyceride [Mass/Vol] 27 mg/dL Normal [facility] Comment on above: Order Comment: 1 Result Comment: The drugs N-Acetylcysteine and Metamizole may falsely depress this assay. Serum Triglycerides Reference Interval Normal <150 mg/dL Borderline high 150 - 199 mg/dL High 200 - 499 mg/dL Very High > or = 500 mg/dL Performed By: #### L 801.2650, L501.90381, L506.1000, L503.6550, L801.1541, L500.4100, L506.0400, L101.9900, L504.2610, L501.9310, L501.5101, L501.9186, L801.1543, L100.0100, L501.9520, L503.6030, L501.9985, L3400.1350, L3250.0100, L3100.7870, L803.0600, L3300.7100, L500.4050, L3300.0100, L3300.6900, L3300.1900, L300.4700, L501.1400 #### [facility] [place], [address] Low density lipoprotein (LDL ) cholesterol measurementOrdered By: Jc Torres on 04-05-2024 Cholesterol in LDL [Mass/Vol] 98 mg/dL 0-130 [facility] Lymphocytes Auto (Unsp spec) [#/Vol]Ordered By: Jc Torres on 04-05-2024 Lymphocytes (Bld) [#/Vol] 0.77 10*3/uL Low 0.83-4.51 [facility] Lymphocytes/100 WBC Auto (Un sp spec)Ordered By: Jc Torres on 04-05-2024 Lymphocytes/100 WBC (Bld) 30.4 % 19-41 [facility] MCV (mean corpuscular volume ) determinationOrdered By: Jc Torres on 04-05-2024 MCV (RBC) [Entitic vol] 82.1 fL 81-99 [facility] Mean corpuscular hemoglobin (MCH) determinationOrdered By: Jc Torres on 04-05-2024 MCH (RBC) [Entitic mass] 25.6 pg Low 27.0-32.0 [facility] Mean corpuscular hemoglobin concentration (MCHC) determinationOrdered By: Jc Torres on 04-05-2024 MCHC (RBC) [Mass/Vol] 31.1 g/dL Low 32-36 [facility] Mean platelet volume determi nationOrdered By: Jc Torres on 04-05-2024 Platelet mean volume (Bld) [Entitic vol] 10.6 fL 6.2-12.0 [facility] Monocyte percentageOrdered B y: Jc Torres on 04-05-2024 Monocytes/100 WBC (Bld) 10.7 % High 0-10 [facility] Neutrophil percentageOrdered By: Jc Torres on 04-05-2024 Neutrophils/100 WBC (Bld) 54.5 % 47-70 [facility] No Panel InformationOrdered By: Jc Melissa on 04-05-2024 Miscellaneous Test COMMENT . [facility] Comment on above: Test Ordered: [id number] VEGF, PlasmaTest(s) 080310-[id number], PlasmaThis test was developed and its performance characteristicsdetermined by [employer]. It has not been cleared orapproved by the Food and Drug Administration.VEGF, Plasma 288 [H ] pg/mL Reference Range: 0-115[employer] Quantikine Enzyme Immunoassay (EIA)Values obtained with different assay methods or kits cannotbe used interchangeably. Results cannot be interpreted asabsolute evidence of the presence or absence of malignantdisease.Performed at: - [address] [id number] Director: Neda Sousa MD, Phone: [phone] at: [facility] [id number] Director: Ortiz Hayden PhD, Phone: [phone] N-Telopeptide Comment See comment [facility] Comment on above: The N-telopeptide an d Creatinine are used to calculatethe N-telo/Creat. Ratio which is referred to as NTx.Suggested guidelines for the clinical use of NTx are asfollows: 1. Menopausal Women not on Hormone Replacement Therapy (HRT): Women with a baseline NTx value >38 are at significant risk for a decrease in bone mineral density (BMD) after 1 year compared to women on HRT. The probability of a decline in BMD increases with NTx value as follows: (1): Baseline NTx Probability of Decrease in BMD 18- 38 1.4 p=0.28 38- 51 2.5 p=0.03 51- 67 3.8 p=0.0006 67-188 17.3 p=0.34480. Menopausal Women Receiving Antiresorptive Therapy: The probability that treatment is effective after three months is increased when the measured NTx value is or=30% from baseline.[1]3. Patients with Paget's Disease of Bone: The probability that treatment is effective after one month is increased when the measured NTx value is within the reference range, or NTx has decreased >or=30% from baseline.[2] 1. Chauncey CH, Sara NH, Eduar GS, et al. Am J Med, 102:29-37,1997. (1):M757, 1996. 2. Bone H, Julio Cesar J, et al. J Bone Min Res.11(1):M757,1996 Nucleated red blood cell per centageOrdered By: Jc Torres on 04-05-2024 Nucleated RBC/100 WBC (Bld) [Ratio] 0 % 0-5 [facility] Platelet countOrdered By: Bart Torres on 04-05-2024 Platelets (Bld) [#/Vol] 418 10*3/uL 150-450 [facility] Potassium measurementOrdered By: Jc Torres on 04-05-2024 Potassium [Moles/Vol] 3.4 mmol/L Low 3.5-5.1 [facility] RBC Auto (Bld) [#/Vol]Ordere d By: Jc Torres on 04-05-2024 RBC (Bld) [#/Vol] 3.52 10*6/uL Low 4.2-5.4 [facility] [id number] By: Jc oneal on 04-05-2024 Reverse Triiodothyronine (T3) 20.2 ng/dL 9.2-24.1 [facility] Serum anion gap measurementO rdered By: Jc Torres on 04-05-2024 Anion gap [Moles/Vol] 5 mmol/L 5-15 [facility] Serum globulin measurementOr dered By: Jc Torres on 04-05-2024 Globulin (S) [Mass/Vol] 3.2 g/dL 2.2-4.2 [facility] Serum or plasma alanine silva otransferase (ALT) measurementOrdered By: Jc Torres on 04-05-2024 ALT [Catalytic activity/Vol] 31 U/L 13-56 [facility] Serum or plasma albumin vickie urement (mass/volume)Ordered By: Jc Torres on 04-05-2024 Albumin [Mass/Vol] 3.2 g/dL 3.2-5.0 [facility] Serum or plasma alkaline barrett sphatase measurementOrdered By: Jc Torres on 04-05-2024 ALP [Catalytic activity/Vol] 92 U/L 45-117 [facility] Serum or plasma calcium vickie urement (mass/volume)Ordered By: Jc Torres on 04-05-2024 Calcium [Mass/Vol] 9.5 mg/dL 8.5-10.1 [facility] Serum or plasma cholesterol measurement (mass/volume)Ordered By: Jc Torres on 04-05-2024 Cholesterol [Mass/Vol] 208 mg/dL High <[address] [facility] Comment on above: <200 mg/dL Desirable 200-240 mg/dL Borderline >240 mg/dL High Risk Serum or plasma creatinine m easurement (mass/volume)Ordered By: Jc Torres on 04-05-2024 Creatinine [Mass/Vol] 0.60 mg/dL 0.55-1.02 [facility] Comment on above: The validity of the calculated GFR & GFRAA in patients over 70 years has not been determined. Clinical correlation is essential. Serum or plasma thyroxine (T 4) measurement (mass/volume)Ordered By: Jc Torres on 04-05-2024 T4 [Mass/Vol] 10.7 ug/dL 4.8-13.9 [facility] Serum or plasma urea nitroge n measurement (mass/volume)Ordered By: Jc Torres on 04-05-2024 Urea nitrogen [Mass/Vol] 22 mg/dL High 7-18 [facility] Serum or plasma uric acid me asurement (mass/volume)Ordered By: Jc Torres on 04-05-2024 Urate [Mass/Vol] 4.0 mg/dL 2.6-6.0 [facility] Comment on above: The drugs N-Acetylcy steine and Metamizole may falsely depress this assay. Sodium levelOrdered By: Brandie Torres on 04-05-2024 Sodium [Moles/Vol] 138 mmol/L 136-145 [facility] T3 IA [Mass/Vol]Ordered By: Jc Torres on 04-05-2024 Total Triiodothyronine 0.72 ng/mL 0.6-1.[address] [facility] T3 Total - Triiodothyronineo n 04-05-2024 T3 Total 0.72 ng/mL Normal 0.6-1.81 [facility] Comment on above: Performed By: #### L 801.2650, L501.52512, L506.1000, L503.6550, L801.1541, L500.4100, L506.0400, L101.9900, L504.2610, L501.9310, L501.5101, L501.9186, L801.1543, L100.0100, L501.9520, L503.6030, L501.9985, L3400.1350, L3250.0100, L3100.7870, L803.0600, L3300.7100, L500.4050, L3300.0100, L3300.6900, L3300.1900, L300.4700, L501.1400 #### [facility] [address] [facility] [place], [address] [id number] By: Jc bell on 04-05-2024 Triiodothyronine (T3) Uptake 30 % 24-39 [facility] T4 Free Directon 04-05-2024 T4 FREE DIRECT 1.24 ng/dL Normal 0.76-1.46 [facility] Comment on above: Order Comment: 1 Performed By: #### L 801.2650, L501.06431, L506.1000, L503.6550, L801.1541, L500.4100, L506.0400, L101.9900, L504.2610, L501.9310, L501.5101, L501.9186, L801.1543, L100.0100, L501.9520, L503.6030, L501.9985, L3400.1350, L3250.0100, L3100.7870, L803.0600, L3300.7100, L500.4050, L3300.0100, L3300.6900, L3300.1900, L300.4700, L501.1400 #### [facility] [address] [facility] [place], [address] T4 Total, Thyroxinon 01-09-2 025 T4 [Mass/Vol] 10.7 ug/dL Normal 4.8-13.9 [facility] Comment on above: Order Comment: 1 Performed By: #### L 801.2650, L501.86814, L506.1000, L503.6550, L801.1541, L500.4100, L506.0400, L101.9900, L504.2610, L501.9310, L501.5101, L501.9186, L801.1543, L100.0100, L501.9520, L503.6030, L501.9985, L3400.1350, L3250.0100, L3100.7870, L803.0600, L3300.7100, L500.4050, L3300.0100, L3300.6900, L3300.1900, L300.4700, L501.1400 #### [facility] [address] [place], [place], [id number] TIBCOrdered By: Jc bell on 04-05-2024 Total Iron Binding Capacity 468 ug/dL High 250-450 [facility] [facility] TPO Ab QnOrdered By: Jc Torres on 04-05-2024 Thyroid Peroxidase Antibodies 27 IU/mL 0-34 [facility] Comment on above: Performed at: [address] [id number] Director: Ortiz Hayden PhD, Phone: [phone] at: [facility] Lab[address] [id number] Director: Neda Sousa MD, Phone: [phone] TSH QnOrdered By: Jc root on 04-05-2024 Thyroid Stimulating Hormone (TSH) 2.480 uIU/mL 0.358-3.740 [facility] Thyroid Stim Hormone (TSH)on 04-05-2024 TSH 2.480 uIU/mL Normal 0.358-3.740 [facility] Comment on above: Order Comment: 1 Performed By: #### L 801.2650, L501.92468, L506.1000, L503.6550, L801.1541, L500.4100, L506.0400, L101.9900, L504.2610, L501.9310, L501.5101, L501.9186, L801.1543, L100.0100, L501.9520, L503.6030, L501.9985, L3400.1350, L3250.0100, L3100.7870, L803.0600, L3300.7100, L500.4050, L3300.0100, L3300.6900, L3300.1900, L300.4700, L501.1400 #### [facility] Laboratory [address] [place], [address] Total proteinOrdered By: Lissy Torres on 04-05-2024 Protein [Mass/Vol] 6.4 g/dL 6.4-8.2 [facility] Triglycerides measurementOrd ered By: Jc Torres on 04-05-2024 Triglyceride [Mass/Vol] 27 mg/dL <199 [facility] Comment on above: The drugs N-Acetylcy steine and Metamizole may falsely depress this assay.Serum Triglycerides Reference Interval Normal <150 mg/dL Borderline high 150 - 199 mg/dL High 200 - 499 mg/dL Very High > or = 500 mg/dL Uric Acidon 04-05-2024 URIC 4.0 mg/dL Normal 2.6-6.0 [facility] Comment on above: Order Comment: 1 Result Comment: The drugs N-Acetylcysteine and Metamizole may falsely depress this assay. Performed By: #### L 801.2650, L501.65691, L506.1000, L503.6550, L801.1541, L500.4100, L506.0400, L101.9900, L504.2610, L501.9310, L501.5101, L501.9186, L801.1543, L100.0100, L501.9520, L503.6030, L501.9985, L3400.1350, L3250.0100, L3100.7870, L803.0600, L3300.7100, L500.4050, L3300.0100, L3300.6900, L3300.1900, L300.4700, L501.1400 #### [facility] Laboratory [address] [facility] [place], [address] Urine creatinine measurement (mass/volume)Ordered By: Jc Torres on 04-05-2024 Creatinine (U) [Mass/Vol] 92.6 mg/dL Not Estab. [facility] Very low density lipoprotein (VLDL) cholesterol measurementOrdered By: Jc Torres on 04-05-2024 VLDL Cholesterol 5 mg/dL 5-40 [facility] Vitamin D,25 Hydroxyon 04-05 Vitamin D 25-OH 83.7 ng/mL Normal [facility] Comment on above: Result Comment: Mary min D 25(OH) Status Range Deficiency <20 ng/mL (50nmol/L) Insufficiency 20 - 30 ng/mL (50 - 75 nmol/L) Sufficiency 30 - 100 ng/mL (75 - 250 nmol/L) Toxicity >100 ng/mL (>250 nmol/L) Performed By: #### L 801.2650, L501.10745, L506.1000, L503.6550, L801.1541, L500.4100, L506.0400, L101.9900, L504.2610, L501.9310, L501.5101, L501.9186, L801.1543, L100.0100, L501.9520, L503.6030, L501.9985, L3400.1350, L3250.0100, L3100.7870, L803.0600, L3300.7100, L500.4050, L3300.0100, L3300.6900, L3300.1900, L300.4700, L501.1400 #### [facility] Laboratory [address] [facility] [place], [address] White blood cell (WBC) count Ordered By: Jc Torres on 04-05-2024 WBC (Bld) [#/Vol] 2.5 10*3/uL Low 4.4-11.0 [facility] Ova and Parasites 8623on OP OP #3 OVA AND PARASITES EXAM, ROUTINE These results were obtained using wet preparation(s) and trichrome stained smear. This test does not include testing for Crytosporidium parvum, Cyclospora, or Microsporidia. One negative specimen does not rule out the possibility of a parasitic infection. TESTING PERFORMED AT [facility]. ORIGINAL REPORT ON FILE IN LAB CONTAINS ADDITIONAL TEST SITE INFORMATION. Ova/Parasite Exam NO OVA, CYSTS, OR PARASITES FOUND. Normal [facility] Comment on above: Performed By: #### L 801.2650, L501.59682, L506.1000, L503.6550, L801.1541, L500.4100, L506.0400, L101.9900, L504.2610, L501.9310, L501.5101, L501.9186, L801.1543, L100.0100, L501.9520, L503.6030, L501.9985, L3400.1350, L3250.0100, L3100.7870, L803.0600, L3300.7100, L500.4050, L3300.0100, L3300.6900, L3300.1900, L300.4700, L501.1400 #### [facility] Laboratory [address] [place], [address] pH, Stoolon 03-13-2024 pH, STOOL 6.5 Low 7.0-7.5 [facility] Comment on above: Order Comment: Test( s) [id number], Stoolwas developed and its performance characteristicsdetermined by [facility]. It has not been cleared or approvedby the Food and Drug Administration. Result Comment: Perf ormed at: [address] [id number] [place] [employer] Tester: Ortiz Hayden PhD, Phone: [phone] Performed By: #### L 801.2650, L501.97356, L506.1000, L503.6550, L801.1541, L500.4100, L506.0400, L101.9900, L504.2610, L501.9310, L501.5101, L501.9186, L801.1543, L100.0100, L501.9520, L503.6030, L501.9985, L3400.1350, L3250.0100, L3100.7870, L803.0600, L3300.7100, L500.4050, L3300.0100, L3300.6900, L3300.1900, L300.4700, L501.1400 #### [facility] Laboratory [address] [place], [address] H. PYLORI STOOL AGon 024 H PYLORI STL AG Negative Normal Negative [facility] Comment on above: Result Comment: Perf ormed at: [address] [id number] [employer] T[employer]: Neda Sousa MD, Phone: [phone] Performed at: [address] [id number] [place] [employer] T[employer]: Ortiz Hayden PhD, Phone: [phone] Performed By: #### L 801.2650, L501.98937, L506.1000, L503.6550, L801.1541, L500.4100, L506.0400, L101.9900, L504.2610, L501.9310, L501.5101, L501.9186, L801.1543, L100.0100, L501.9520, L503.6030, L501.9985, L3400.1350, L3250.0100, L3100.7870, L803.0600, L3300.7100, L500.4050, L3300.0100, L3300.6900, L3300.1900, L300.4700, L501.1400 #### [facility] Laboratory [address] [facility] [address] [place], [place], [id number] L7000.0750on 03-12-2024 P ELASTASE,FECA > 800 Normal >200 [facility] Comment on above: Result Comment: Resu lt Units: ug Elast./g Severe Pancreatic Insufficiency: <100 Moderate Pancreatic Insufficiency: 100 - 200 Normal: >200 Performed By: #### L 801.2650, L501.85272, L506.1000, L503.6550, L801.1541, L500.4100, L506.0400, L101.9900, L504.2610, L501.9310, L501.5101, L501.9186, L801.1543, L100.0100, L501.9520, L503.6030, L501.9985, L3400.1350, L3250.0100, L3100.7870, L803.0600, L3300.7100, L500.4050, L3300.0100, L3300.6900, L3300.1900, L300.4700, L501.1400 #### [facility] [address] [facility]. [place], [place], [address] Ova and Parasites 8623on OP OP #2 OVA AND PARASITES EXAM, ROUTINE These results were obtained using wet preparation(s) and trichrome stained smear. This test does not include testing for Crytosporidium parvum, Cyclospora, or Microsporidia. One negative specimen does not rule out the possibility of a parasitic infection. [facility] ORIGINAL REPORT ON FILE IN LAB CONTAINS ADDITIONAL TEST SITE INFORMATION. Ova/Parasite Exam NO OVA, CYSTS, OR PARASITES FOUND. Normal [facility] Comment on above: Performed By: #### L 801.2650, L501.43485, L506.1000, L503.6550, L801.1541, L500.4100, L506.0400, L101.9900, L504.2610, L501.9310, L501.5101, L501.9186, L801.1543, L100.0100, L501.9520, L503.6030, L501.9985, L3400.1350, L3250.0100, L3100.7870, L803.0600, L3300.7100, L500.4050, L3300.0100, L3300.6900, L3300.1900, L300.4700, L501.1400 #### [facility] Laboratory [address] [place], [address] Ova and Parasites 8623on OP OP #1 OVA AND PARASITES EXAM, ROUTINE These results were obtained using wet preparation(s) and trichrome stained smear. This test does not include testing for Crytosporidium parvum, Cyclospora, or Microsporidia. One negative specimen does not rule out the possibility of a parasitic infection. TESTING PERFORMED AT [facility]. ORIGINAL REPORT ON FILE IN LAB CONTAINS ADDITIONAL TEST SITE INFORMATION. Ova/Parasite Exam NO OVA, CYSTS, OR PARASITES FOUND. Normal [facility] Comment on above: Performed By: #### L 801.2650, L501.53534, L506.1000, L503.6550, L801.1541, L500.4100, L506.0400, L101.9900, L504.2610, L501.9310, L501.5101, L501.9186, L801.1543, L100.0100, L501.9520, L503.6030, L501.9985, L3400.1350, L3250.0100, L3100.7870, L803.0600, L3300.7100, L500.4050, L3300.0100, L3300.6900, L3300.1900, L300.4700, L501.1400 #### [facility] Laboratory [address] [place], [address] Ova and parasitesOrdered By: Jossie De La Rosa on 03-09-2024 Ova and Parasites [facility] Ova and parasitesOrdered By: Jossie De La Rosa on 03-08-2024 Ova and Parasites [facility] ENTERIC PATHOGEN PANEL STOOL on 03-07-2024 EP PANEL CAMPYLOBACTER Not Detected Norovirus Not Detected Rotavirus Not Detected Salmonella Not Detected Shiga Toxin Not Detected Shigella sp. Not Detected VIBRIO Not Detected Yersinia Not Detected Normal [facility] Comment on above: Performed By: #### L 801.2650, L501.47007, L506.1000, L503.6550, L801.1541, L500.4100, L506.0400, L101.9900, L504.2610, L501.9310, L501.5101, L501.9186, L801.1543, L100.0100, L501.9520, L503.6030, L501.9985, L3400.1350, L3250.0100, L3100.7870, L803.0600, L3300.7100, L500.4050, L3300.0100, L3300.6900, L3300.1900, L300.4700, L501.1400 #### [facility] Laboratory [address] [place], [address] Elastase.pancreatic (Stl) [M ass/Mass]Ordered By: Jossie De La Rosa on 03-07-2024 Stool Pancreatic Elastase > 800 >200 [facility] Comment on above: Result Units: ug [address] st./g Severe Pancreatic Insufficiency: <100 Moderate Pancreatic Insufficiency: 100 - 200 Normal: >200 H. pylori Ag IA Ql (Stl)Orde red By: Jossie De La Rosa on 03-07-2024 Stool Helicobacter pylori Antigen Negative Negative [facility] Comment on above: Performed at: [address] [id number] Director: Neda Sousa MD, Phone: [phone] at: [address] [id number] Director: Ortiz Hayden PhD, Phone: [phone] Lactoferrin IA Ql (Stl)Order ed By: Jossie De La Rosa on 03-07-2024 Stool Lactoferrin [facility] Ova and parasitesOrdered By: Jossie De La Rosa on 03-07-2024 Ova and Parasites [facility] Stool Lactoferrin/WBCon 02-25 WBCST Normal Reference Ran ge = Negative Fecal WBC Lactoferrin A Positive: Fecal WBC Lactoferrin present A Normal [facility] Comment on above: Performed By: #### L 801.2650, L501.93986, L506.1000, L503.6550, L801.1541, L500.4100, L506.0400, L101.9900, L504.2610, L501.9310, L501.5101, L501.9186, L801.1543, L100.0100, L501.9520, L503.6030, L501.9985, L3400.1350, L3250.0100, L3100.7870, L803.0600, L3300.7100, L500.4050, L3300.0100, L3300.6900, L3300.1900, L300.4700, L501.1400 #### [facility] Laboratory [address] [place], [place], [address] Stool enteric pathogen panel by probe and target amplification methodOrdered By: Jossie De La Rosa on 03-07-2024 Enteric Bacteriology [facility] pH (Stl)Ordered By: Jossie francisco on 03-07-2024 Stool pH 6.5 Low 7.0-7.5 [facility] Comment on above: Performed at: [employer] [address] [id number] Director: Ortiz Hayden PhD, Phone: [phone] [facility] Procedure[facility] n 02-13-2024 [facility] LAB TEST Normal [facility] Comment on above: Order Comment: [id number] VEGF PLASMA [id number] VEGF PLASMA FZ Result Comment: TEST RESULTS LIMITS VEGF, Plasma, 75 pg/mL 0-115 [employer] Quantikine Enzyme Immunoassay (EIA) Values obtained with different assay methods or kits cannot be used interchangeably. Results cannot be interpreted as absolute evidence of the presence or absence of malignant disease. TESTING PERFORMED AT [facility]. ORIGINAL REPORT ON FILE IN LAB CONTAINS ADDITIONAL TEST SITE INFORMATION. Performed By: #### L 801.2650, L501.36249, L506.1000, L503.6550, L801.1541, L500.4100, L506.0400, L101.9900, L504.2610, L501.9310, L501.5101, L501.9186, L801.1543, L100.0100, L501.9520, L503.6030, L501.9985, L3400.1350, L3250.0100, L3100.7870, L803.0600, L3300.7100, L500.4050, L3300.0100, L3300.6900, L3300.1900, L300.4700, L501.1400 #### [facility] [place], [address] Miscellaneous Lab Procedure 2on 02-13-2024 [facility] LAB TEST 2 Normal [facility] Comment on above: Order Comment: [id number] GALECTIN 3 SERUM [id number] GALECTIN 3 SERUM RMT Result Comment: TEST RESULTS LIMITS Galectin-3 9.3 ng/mL <22.2 Reference range of <22.2 ng/mL applies to population without known heart disease. Galectin-3 is NOT a marker of cardiac distress or decompensation. Galectin-3 is a marker of fibrosis and adverse remodeling resulting in a more progressive form of chronic heart failure. The [facility] Galectin-3 assay results should be interpreted in conjunction with clinical evaluation as an aid in assessing the prognosis of patients diagnosed with chronic heart failure. * Galectin-3 levels less than or equal to 17.8 ng/mL - LOWER risk of adverse outcomes including mortality or hospitalization. * Galectin-3 levels greater than 17.8 ng/mL - HIGHER risk of adverse outcomes including mortality or hospitalization. * Galectin-3 levels between 17.8 ng/mL and 25.9 ng/mL should be interpreted with caution because these values lie within the reference range. Additional Considerations - Approximately 30% of NYHA class II/III outpatient population were found to have elevated galectin-3 levels (>17.8 ng/mL). [1] - Elevated galectin-3 is found in similar percentages of patients with systolic dysfunction and preserved ejection fraction. [1] - Galectin-3 shows modest correlations with clinical variables, including Age (slightly higher levels in older subjects), Gender (women have slightly higher values) certain co-morbidities (diabetes and atrial fibrillation), and NYHA classification. [2] - Once elevated galectin-3 levels are generally stable over time. [2] - Drugs effective in the management of patients with heart failure often fail to reduce levels of galectin-3 and galectin-3 levels should not be used to guide therapy. * Galectin-3 testing was cleared by the FDA for use in patients with chronic heart failure only. [1] (1) [facility] Galectin-3 Product Label (2) Montes R; Maryuri Cardona; Jacque T, et al. Value of Plasma Galectin-3 levels in Heart Failure with Reduced and Preserved Ejection Fraction. [employer], 2011; 43(1):60-68. TESTING PERFORMED AT [facility]. ORIGINAL REPORT ON FILE IN LAB CONTAINS ADDITIONAL TEST SITE INFORMATION. Performed By: #### L 801.2650, L501.78834, L506.1000, L503.6550, L801.1541, L500.4100, L506.0400, L101.9900, L504.2610, L501.9310, L501.5101, L501.9186, L801.1543, L100.0100, L501.9520, L503.6030, L501.9985, L3400.1350, L3250.0100, L3100.7870, L803.0600, L3300.7100, L500.4050, L3300.0100, L3300.6900, L3300.1900, L300.4700, L501.1400 #### [facility] Laboratory [address] [place], [address] ALK Phos Isoenzymeon 024 ALK PHOS, S 79 IU/L Normal 44-121 [facility] Comment on above: Order Comment: Test( s) [id number]-Dvgxvvj T3, Serumwas developed and its performance characteristicsdetermined by [facility]. It has not been cleared or approvedby the Food and Drug Administration.N Performed By: #### L 801.2650, L501.67192, L506.1000, L503.6550, L801.1541, L500.4100, L506.0400, L101.9900, L504.2610, L501.9310, L501.5101, L501.9186, L801.1543, L100.0100, L501.9520, L503.6030, L501.9985, L3400.1350, L3250.0100, L3100.7870, L803.0600, L3300.7100, L500.4050, L3300.0100, L3300.6900, L3300.1900, L300.4700, L501.1400 #### [facility] [address] [facility] [place], [place], [id number] BONE FRACTION 62 Normal 14-68 [facility] Comment on above: Order Comment: Test( s) 948330-Vfrjmmd T3, Serumwas developed and its performance characteristicsdetermined by [facility]. It has not been cleared or approvedby the Food and Drug Administration.N Performed By: #### L 801.2650, L501.19169, L506.1000, L503.6550, L801.1541, L500.4100, L506.0400, L101.9900, L504.2610, L501.9310, L501.5101, L501.9186, L801.1543, L100.0100, L501.9520, L503.6030, L501.9985, L3400.1350, L3250.0100, L3100.7870, L803.0600, L3300.7100, L500.4050, L3300.0100, L3300.6900, L3300.1900, L300.4700, L501.1400 #### [facility] [address] [facility] [place], [address] INTESTINAL FRAC 0 Normal 0-18 [facility] Comment on above: Order Comment: Test( s) 518478-Cpwbjje T3, Serumwas developed and its performance characteristicsdetermined by [facility]. It has not been cleared or approvedby the Food and Drug Administration.N Performed By: #### L 801.2650, L501.65540, L506.1000, L503.6550, L801.1541, L500.4100, L506.0400, L101.9900, L504.2610, L501.9310, L501.5101, L501.9186, L801.1543, L100.0100, L501.9520, L503.6030, L501.9985, L3400.1350, L3250.0100, L3100.7870, L803.0600, L3300.7100, L500.4050, L3300.0100, L3300.6900, L3300.1900, L300.4700, L501.1400 #### [facility] [address] [facility] [place], [address] LIVER FRACTION 38 Normal 18-85 [facility] Comment on above: Order Comment: Test( s) 248898-Erztnvu T3, Serumwas developed and its performance characteristicsdetermined by [facility]. It has not been cleared or approvedby the Food and Drug Administration.N Performed By: #### L 801.2650, L501.17034, L506.1000, L503.6550, L801.1541, L500.4100, L506.0400, L101.9900, L504.2610, L501.9310, L501.5101, L501.9186, L801.1543, L100.0100, L501.9520, L503.6030, L501.9985, L3400.1350, L3250.0100, L3100.7870, L803.0600, L3300.7100, L500.4050, L3300.0100, L3300.6900, L3300.1900, L300.4700, L501.1400 #### [facility] [address] [facility] [place], [address] Copper, Serum or Plasmaon COPPER, SERUM 114 ug/dL Normal 80-158 [facility] Comment on above: Order Comment: Test( s) 181002-Jqluckh T3, Serumwas developed and its performance characteristicsdetermined by [facility]. It has not been cleared or approvedby the Food and Drug Administration.N Result Comment: Dete ction Limit = 5 Performed By: #### L 801.2650, L501.36583, L506.1000, L503.6550, L801.1541, L500.4100, L506.0400, L101.9900, L504.2610, L501.9310, L501.5101, L501.9186, L801.1543, L100.0100, L501.9520, L503.6030, L501.9985, L3400.1350, L3250.0100, L3100.7870, L803.0600, L3300.7100, L500.4050, L3300.0100, L3300.6900, L3300.1900, L300.4700, L501.1400 #### [facility] [address] [place], [place], [address] G6PD Quanton 02-11-2024 G6PD QUANT test 255 Normal 127-427 [facility] Comment on above: Order Comment: Test( s) 877037-Wpcecnp T3, Serumwas developed and its performance characteristicsdetermined by [facility]. It has not been cleared or approvedby the Food and Drug Administration.N Result Comment: Resu lt Units: U/10E12 RBC When decreased, G-6-PD, Quant. values are associated with acute hemolytic anemia when deficient individuals are exposed to oxidative stress, such as with certain medications (e.g., primaquine), infection, or ingestion of alanis beans. Caution: In patients with acute hemolysis (e.g., abnormally low RBC values), testing for G-6-PD may be falsely normal because older erythrocytes with a higher enzyme deficiency have been hemolyzed. Young erythrocytes and reticulocytes have normal or near-normal enzyme activity. Normal values of G-6-PD may be measured for several weeks following a hemolytic event. Performed By: #### L 801.2650, L501.44058, L506.1000, L503.6550, L801.1541, L500.4100, L506.0400, L101.9900, L504.2610, L501.9310, L501.5101, L501.9186, L801.1543, L100.0100, L501.9520, L503.6030, L501.9985, L3400.1350, L3250.0100, L3100.7870, L803.0600, L3300.7100, L500.4050, L3300.0100, L3300.6900, L3300.1900, L300.4700, L501.1400 #### [facility] [address] [facility] [place], [address] RBC COUNT 3.52 x10E6/uL Low 3.77-5.28 [facility] Comment on above: Order Comment: Test( s) 409412-Ciauttr T3, Serumwas developed and its performance characteristicsdetermined by [facility]. It has not been cleared or approvedby the Food and Drug Administration.N Performed By: #### L 801.2650, L501.46876, L506.1000, L503.6550, L801.1541, L500.4100, L506.0400, L101.9900, L504.2610, L501.9310, L501.5101, L501.9186, L801.1543, L100.0100, L501.9520, L503.6030, L501.9985, L3400.1350, L3250.0100, L3100.7870, L803.0600, L3300.7100, L500.4050, L3300.0100, L3300.6900, L3300.1900, L300.4700, L501.1400 #### [facility] [address] [facility] [place], [address] Insulin Like Growth Factoron 02-11-2024 SOMATOMEDIN C 125 ng/mL Normal 60-207 [facility] Comment on above: Order Comment: Test( s) 114879-Xnpqihl T3, Serumwas developed and its performance characteristicsdetermined by [facility]. It has not been cleared or approvedby the Food and Drug Administration.N Performed By: #### L 801.2650, L501.03236, L506.1000, L503.6550, L801.1541, L500.4100, L506.0400, L101.9900, L504.2610, L501.9310, L501.5101, L501.9186, L801.1543, L100.0100, L501.9520, L503.6030, L501.9985, L3400.1350, L3250.0100, L3100.7870, L803.0600, L3300.7100, L500.4050, L3300.0100, L3300.6900, L3300.1900, L300.4700, L501.1400 #### [facility] [address] [place], [address] L501.5101on 02-11-2024 GGTP 7 IU/L Normal 0-60 [facility] Comment on above: Order Comment: Test( s) 628566-Rhpdocf T3, Serumwas developed and its performance characteristicsdetermined by [facility]. It has not been cleared or approvedby the Food and Drug Administration.N Performed By: #### L 801.2650, L501.78051, L506.1000, L503.6550, L801.1541, L500.4100, L506.0400, L101.9900, L504.2610, L501.9310, L501.5101, L501.9186, L801.1543, L100.0100, L501.9520, L503.6030, L501.9985, L3400.1350, L3250.0100, L3100.7870, L803.0600, L3300.7100, L500.4050, L3300.0100, L3300.6900, L3300.1900, L300.4700, L501.1400 #### [facility] [address] [facility] [place], [place], [address] L801.2650on 02-11-2024 T3UP 29 Normal 24-39 [facility] Comment on above: Order Comment: Test( s) 571448-Wgdyqpw T3, Serumwas developed and its performance characteristicsdetermined by [employer]. It has not been cleared or approvedby the Food and Drug Administration.N Performed By: #### L 801.2650, L501.59507, L506.1000, L503.6550, L801.1541, L500.4100, L506.0400, L101.9900, L504.2610, L501.9310, L501.5101, L501.9186, L801.1543, L100.0100, L501.9520, L503.6030, L501.9985, L3400.1350, L3250.0100, L3100.7870, L803.0600, L3300.7100, L500.4050, L3300.0100, L3300.6900, L3300.1900, L300.4700, L501.1400 #### [facility] [address] [facility]. [place], [place], [address] T3 Reverseon 02-11-2024 T3 REVERSE 15.5 ng/dL Normal 9.2-24.1 [facility] Comment on above: Order Comment: Test( s) 583682-Fafndjv T3, Serumwas developed and its performance characteristicsdetermined by [employer]. It has not been cleared or approvedby the Food and Drug Administration.N Performed By: #### L 801.2650, L501.22127, L506.1000, L503.6550, L801.1541, L500.4100, L506.0400, L101.9900, L504.2610, L501.9310, L501.5101, L501.9186, L801.1543, L100.0100, L501.9520, L503.6030, L501.9985, L3400.1350, L3250.0100, L3100.7870, L803.0600, L3300.7100, L500.4050, L3300.0100, L3300.6900, L3300.1900, L300.4700, L501.1400 #### [facility] [address] [place], [place], [id number] Thyroid Peroxidase ABon 11-1 THYR PEROX AB 30 IU/mL Normal 0-34 [facility] Comment on above: Order Comment: Test( s) [id number]-Psiecgp T3, Serumwas developed and its performance characteristicsdetermined by [employer]. It has not been cleared or approvedby the Food and Drug Administration.N Result Comment: Perf ormed at: [address] [id number] [employer]: Ortiz Hayden PhD, Phone: [phone] Performed at: [address] [id number] [employer]: Neda Sousa MD, Phone: [phone] Performed By: #### L 801.2650, L501.64683, L506.1000, L503.6550, L801.1541, L500.4100, L506.0400, L101.9900, L504.2610, L501.9310, L501.5101, L501.9186, L801.1543, L100.0100, L501.9520, L503.6030, L501.9985, L3400.1350, L3250.0100, L3100.7870, L803.0600, L3300.7100, L500.4050, L3300.0100, L3300.6900, L3300.1900, L300.4700, L501.1400 #### [facility] [address] [place], [address] CRP, High Sensitivity 183820 on 02-08-2024 CRP, HIGH SENS 0.18 mg/L Normal 0.00-3.00 [facility] Comment on above: Result Comment: Rela tive Risk for Future Cardiovascular Event Low <1.00 Average 1.00 - 3.00 High >3.00 Performed By: #### L 801.2650, L501.66499, L506.1000, L503.6550, L801.1541, L500.4100, L506.0400, L101.9900, L504.2610, L501.9310, L501.5101, L501.9186, L801.1543, L100.0100, L501.9520, L503.6030, L501.9985, L3400.1350, L3250.0100, L3100.7870, L803.0600, L3300.7100, L500.4050, L3300.0100, L3300.6900, L3300.1900, L300.4700, L501.1400 #### [facility] [address] [facility] [place], [address] L803.0600on 02-08-2024 HOMOCYSTEINE 7.7 umol/L Normal 0.0-14.5 [facility] Comment on above: Result Comment: Perf ormed at: [facility] [address] [id number] [employer]: Ortiz Hayden PhD, Phone: [phone] Performed By: #### L 801.2650, L501.44356, L506.1000, L503.6550, L801.1541, L500.4100, L506.0400, L101.9900, L504.2610, L501.9310, L501.5101, L501.9186, L801.1543, L100.0100, L501.9520, L503.6030, L501.9985, L3400.1350, L3250.0100, L3100.7870, L803.0600, L3300.7100, L500.4050, L3300.0100, L3300.6900, L3300.1900, L300.4700, L501.1400 #### [facility] [address] [facility] [place], [address] CBC W/Diff, Automatedon 11-1 Absolute Lymph 1.03 X10 3/uL Normal 0.83-4.51 [facility] Comment on above: Performed By: #### L 801.2650, L501.96779, L506.1000, L503.6550, L801.1541, L500.4100, L506.0400, L101.9900, L504.2610, L501.9310, L501.5101, L501.9186, L801.1543, L100.0100, L501.9520, L503.6030, L501.9985, L3400.1350, L3250.0100, L3100.7870, L803.0600, L3300.7100, L500.4050, L3300.0100, L3300.6900, L3300.1900, L300.4700, L501.1400 #### [facility] [address] [facility] [place], [address] Absolute Neut 1.8 X10 3/uL Low 2.0-7.7 [facility] Comment on above: Performed By: #### L 801.2650, L501.30129, L506.1000, L503.6550, L801.1541, L500.4100, L506.0400, L101.9900, L504.2610, L501.9310, L501.5101, L501.9186, L801.1543, L100.0100, L501.9520, L503.6030, L501.9985, L3400.1350, L3250.0100, L3100.7870, L803.0600, L3300.7100, L500.4050, L3300.0100, L3300.6900, L3300.1900, L300.4700, L501.1400 #### [facility] [address] [facility] [address] [facility] [address] [place], [place], [phone] (570) Basophils/100 WBC (Bld) 1.2 % High 0-1 [facility] Comment on above: Performed By: #### L 801.2650, L501.33342, L506.1000, L503.6550, L801.1541, L500.4100, L506.0400, L101.9900, L504.2610, L501.9310, L501.5101, L501.9186, L801.1543, L100.0100, L501.9520, L503.6030, L501.9985, L3400.1350, L3250.0100, L3100.7870, L803.0600, L3300.7100, L500.4050, L3300.0100, L3300.6900, L3300.1900, L300.4700, L501.1400 #### [facility] [address] [place], [address] (966) Eosinophils/100 WBC (Bld) 3.6 % Normal 0-5 [facility] Comment on above: Performed By: #### L 801.2650, L501.45931, L506.1000, L503.6550, L801.1541, L500.4100, L506.0400, L101.9900, L504.2610, L501.9310, L501.5101, L501.9186, L801.1543, L100.0100, L501.9520, L503.6030, L501.9985, L3400.1350, L3250.0100, L3100.7870, L803.0600, L3300.7100, L500.4050, L3300.0100, L3300.6900, L3300.1900, L300.4700, L501.1400 #### [facility] [address] [facility] [place], [address] Erythrocyte distribution width (RBC) [Ratio] 18.2 % High 11.6-14.6 [facility] Comment on above: Performed By: #### L 801.2650, L501.34396, L506.1000, L503.6550, L801.1541, L500.4100, L506.0400, L101.9900, L504.2610, L501.9310, L501.5101, L501.9186, L801.1543, L100.0100, L501.9520, L503.6030, L501.9985, L3400.1350, L3250.0100, L3100.7870, L803.0600, L3300.7100, L500.4050, L3300.0100, L3300.6900, L3300.1900, L300.4700, L501.1400 #### [facility] [address] [place], [address] Hematocrit (Bld) [Volume fraction] 30.6 % Low 37-47 [facility] Comment on above: Performed By: #### L 801.2650, L501.94363, L506.1000, L503.6550, L801.1541, L500.4100, L506.0400, L101.9900, L504.2610, L501.9310, L501.5101, L501.9186, L801.1543, L100.0100, L501.9520, L503.6030, L501.9985, L3400.1350, L3250.0100, L3100.7870, L803.0600, L3300.7100, L500.4050, L3300.0100, L3300.6900, L3300.1900, L300.4700, L501.1400 #### [facility] [address] [place], [address] Hemoglobin (Bld) [Mass/Vol] 9.8 g/dL Low 12.0-15.0 [facility] Comment on above: Performed By: #### L 801.2650, L501.93087, L506.1000, L503.6550, L801.1541, L500.4100, L506.0400, L101.9900, L504.2610, L501.9310, L501.5101, L501.9186, L801.1543, L100.0100, L501.9520, L503.6030, L501.9985, L3400.1350, L3250.0100, L3100.7870, L803.0600, L3300.7100, L500.4050, L3300.0100, L3300.6900, L3300.1900, L300.4700, L501.1400 #### [facility] [address] [facility] [place], [place], [id number] IG% 0.000 Normal 0.0-0.9 [facility] Comment on above: Result Comment: IG% - Immature Granulocytes (promyelocytes, myelocytes and metamyelocytes) > 1% indicates that a LEFT SHIFT is Present. Performed By: #### L 801.2650, L501.44884, L506.1000, L503.6550, L801.1541, L500.4100, L506.0400, L101.9900, L504.2610, L501.9310, L501.5101, L501.9186, L801.1543, L100.0100, L501.9520, L503.6030, L501.9985, L3400.1350, L3250.0100, L3100.7870, L803.0600, L3300.7100, L500.4050, L3300.0100, L3300.6900, L3300.1900, L300.4700, L501.1400 #### [facility] [address] [facility] [address] [facility] [address] [place], [place], [id number] Lymphocytes/100 WBC (Bld) 30.7 % Normal 19-41 [facility] Comment on above: Performed By: #### L 801.2650, L501.14851, L506.1000, L503.6550, L801.1541, L500.4100, L506.0400, L101.9900, L504.2610, L501.9310, L501.5101, L501.9186, L801.1543, L100.0100, L501.9520, L503.6030, L501.9985, L3400.1350, L3250.0100, L3100.7870, L803.0600, L3300.7100, L500.4050, L3300.0100, L3300.6900, L3300.1900, L300.4700, L501.1400 #### [facility] [address] [place], [place], [id number] MCH (RBC) [Entitic mass] 27.9 pg Normal 27.0-32.0 [facility] Comment on above: Performed By: #### L 801.2650, L501.24758, L506.1000, L503.6550, L801.1541, L500.4100, L506.0400, L101.9900, L504.2610, L501.9310, L501.5101, L501.9186, L801.1543, L100.0100, L501.9520, L503.6030, L501.9985, L3400.1350, L3250.0100, L3100.7870, L803.0600, L3300.7100, L500.4050, L3300.0100, L3300.6900, L3300.1900, L300.4700, L501.1400 #### [facility] [address] [facility]. [place], [place], [id number] MCHC (RBC) [Mass/Vol] 32.0 g/dL Normal 32-36 [facility] Comment on above: Performed By: #### L 801.2650, L501.92937, L506.1000, L503.6550, L801.1541, L500.4100, L506.0400, L101.9900, L504.2610, L501.9310, L501.5101, L501.9186, L801.1543, L100.0100, L501.9520, L503.6030, L501.9985, L3400.1350, L3250.0100, L3100.7870, L803.0600, L3300.7100, L500.4050, L3300.0100, L3300.6900, L3300.1900, L300.4700, L501.1400 #### [facility] [address] [place], [place], [phone] MCV (RBC) [Entitic vol] 87.2 fL Normal 81-99 [facility] Comment on above: Performed By: #### L 801.2650, L501.24963, L506.1000, L503.6550, L801.1541, L500.4100, L506.0400, L101.9900, L504.2610, L501.9310, L501.5101, L501.9186, L801.1543, L100.0100, L501.9520, L503.6030, L501.9985, L3400.1350, L3250.0100, L3100.7870, L803.0600, L3300.7100, L500.4050, L3300.0100, L3300.6900, L3300.1900, L300.4700, L501.1400 #### [facility] [address] [place], [place], [id number] Monocytes/100 WBC (Bld) 11.6 % High 0-10 [facility] Comment on above: Performed By: #### L 801.2650, L501.34891, L506.1000, L503.6550, L801.1541, L500.4100, L506.0400, L101.9900, L504.2610, L501.9310, L501.5101, L501.9186, L801.1543, L100.0100, L501.9520, L503.6030, L501.9985, L3400.1350, L3250.0100, L3100.7870, L803.0600, L3300.7100, L500.4050, L3300.0100, L3300.6900, L3300.1900, L300.4700, L501.1400 #### [facility] [address] [place], [place], [id number] (565) Neutrophils/100 WBC (Bld) 52.9 % Normal 47-70 [facility] Comment on above: Performed By: #### L 801.2650, L501.26700, L506.1000, L503.6550, L801.1541, L500.4100, L506.0400, L101.9900, L504.2610, L501.9310, L501.5101, L501.9186, L801.1543, L100.0100, L501.9520, L503.6030, L501.9985, L3400.1350, L3250.0100, L3100.7870, L803.0600, L3300.7100, L500.4050, L3300.0100, L3300.6900, L3300.1900, L300.4700, L501.1400 #### [facility] [address] [facility] [place], [place], [phone] Nucleated RBC (Bld) [#/Vol] 0 10*3/uL Normal 0-5 [facility] Comment on above: Performed By: #### L 801.2650, L501.00787, L506.1000, L503.6550, L801.1541, L500.4100, L506.0400, L101.9900, L504.2610, L501.9310, L501.5101, L501.9186, L801.1543, L100.0100, L501.9520, L503.6030, L501.9985, L3400.1350, L3250.0100, L3100.7870, L803.0600, L3300.7100, L500.4050, L3300.0100, L3300.6900, L3300.1900, L300.4700, L501.1400 #### [facility] [address] [facility] [place], [address] Platelet mean volume (Bld) [Entitic vol] 10.9 fL Normal 6.2-12.0 [facility] Comment on above: Performed By: #### L 801.2650, L501.05276, L506.1000, L503.6550, L801.1541, L500.4100, L506.0400, L101.9900, L504.2610, L501.9310, L501.5101, L501.9186, L801.1543, L100.0100, L501.9520, L503.6030, L501.9985, L3400.1350, L3250.0100, L3100.7870, L803.0600, L3300.7100, L500.4050, L3300.0100, L3300.6900, L3300.1900, L300.4700, L501.1400 #### [facility] [address] [facility] [place], [place], [phone] Platelets (Bld) [#/Vol] 319 10*3/uL Normal 150-450 [facility] Comment on above: Performed By: #### L 801.2650, L501.36104, L506.1000, L503.6550, L801.1541, L500.4100, L506.0400, L101.9900, L504.2610, L501.9310, L501.5101, L501.9186, L801.1543, L100.0100, L501.9520, L503.6030, L501.9985, L3400.1350, L3250.0100, L3100.7870, L803.0600, L3300.7100, L500.4050, L3300.0100, L3300.6900, L3300.1900, L300.4700, L501.1400 #### [facility] [address] [facility] [address] [place], [place], [address] RBC (Bld) [#/Vol] 3.51 10*6/uL Low 4.2-5.4 [facility] Comment on above: Performed By: #### L 801.2650, L501.34659, L506.1000, L503.6550, L801.1541, L500.4100, L506.0400, L101.9900, L504.2610, L501.9310, L501.5101, L501.9186, L801.1543, L100.0100, L501.9520, L503.6030, L501.9985, L3400.1350, L3250.0100, L3100.7870, L803.0600, L3300.7100, L500.4050, L3300.0100, L3300.6900, L3300.1900, L300.4700, L501.1400 #### [facility] [address] [facility]. [place], [place], [address] RDW SD 58.5 fl High 35.1-43.9 [facility] Comment on above: Performed By: #### L 801.2650, L501.12167, L506.1000, L503.6550, L801.1541, L500.4100, L506.0400, L101.9900, L504.2610, L501.9310, L501.5101, L501.9186, L801.1543, L100.0100, L501.9520, L503.6030, L501.9985, L3400.1350, L3250.0100, L3100.7870, L803.0600, L3300.7100, L500.4050, L3300.0100, L3300.6900, L3300.1900, L300.4700, L501.1400 #### [facility] [address] [place], [place], [id number] WBC (Bld) [#/Vol] 3.4 10*3/uL Low 4.4-11.0 [facility] Comment on above: Performed By: #### L 801.2650, L501.50632, L506.1000, L503.6550, L801.1541, L500.4100, L506.0400, L101.9900, L504.2610, L501.9310, L501.5101, L501.9186, L801.1543, L100.0100, L501.9520, L503.6030, L501.9985, L3400.1350, L3250.0100, L3100.7870, L803.0600, L3300.7100, L500.4050, L3300.0100, L3300.6900, L3300.1900, L300.4700, L501.1400 #### [facility] [address] [place], [address] Comprehensive Metabolic Prof [facility] 02-07-2024 Albumin [Mass/Vol] 3.3 g/dL Normal 3.2-5.0 [facility] Comment on above: Order Comment: 1 Performed By: #### L 801.2650, L501.72506, L506.1000, L503.6550, L801.1541, L500.4100, L506.0400, L101.9900, L504.2610, L501.9310, L501.5101, L501.9186, L801.1543, L100.0100, L501.9520, L503.6030, L501.9985, L3400.1350, L3250.0100, L3100.7870, L803.0600, L3300.7100, L500.4050, L3300.0100, L3300.6900, L3300.1900, L300.4700, L501.1400 #### [facility] [address] [place], [address] Albumin/Globulin [Mass ratio] 1.3 {ratio} Normal 0.9-2.4 [facility] Comment on above: Order Comment: 1 Performed By: #### L 801.2650, L501.90131, L506.1000, L503.6550, L801.1541, L500.4100, L506.0400, L101.9900, L504.2610, L501.9310, L501.5101, L501.9186, L801.1543, L100.0100, L501.9520, L503.6030, L501.9985, L3400.1350, L3250.0100, L3100.7870, L803.0600, L3300.7100, L500.4050, L3300.0100, L3300.6900, L3300.1900, L300.4700, L501.1400 #### [facility] [address] [facility] [place], [address] ALK P 79 U/L Normal 45-117 [facility] Comment on above: Order Comment: 1 Performed By: #### L 801.2650, L501.70521, L506.1000, L503.6550, L801.1541, L500.4100, L506.0400, L101.9900, L504.2610, L501.9310, L501.5101, L501.9186, L801.1543, L100.0100, L501.9520, L503.6030, L501.9985, L3400.1350, L3250.0100, L3100.7870, L803.0600, L3300.7100, L500.4050, L3300.0100, L3300.6900, L3300.1900, L300.4700, L501.1400 #### [facility] [address] [facility] [place], [address] ALT [Catalytic activity/Vol] 25 U/L Normal 13-56 [facility] Comment on above: Order Comment: 1 Performed By: #### L 801.2650, L501.35385, L506.1000, L503.6550, L801.1541, L500.4100, L506.0400, L101.9900, L504.2610, L501.9310, L501.5101, L501.9186, L801.1543, L100.0100, L501.9520, L503.6030, L501.9985, L3400.1350, L3250.0100, L3100.7870, L803.0600, L3300.7100, L500.4050, L3300.0100, L3300.6900, L3300.1900, L300.4700, L501.1400 #### [facility] [address] [facility] [place], [address] AST [Catalytic activity/Vol] 12 U/L Low 15-37 [facility] Comment on above: Order Comment: 1 Performed By: #### L 801.2650, L501.79912, L506.1000, L503.6550, L801.1541, L500.4100, L506.0400, L101.9900, L504.2610, L501.9310, L501.5101, L501.9186, L801.1543, L100.0100, L501.9520, L503.6030, L501.9985, L3400.1350, L3250.0100, L3100.7870, L803.0600, L3300.7100, L500.4050, L3300.0100, L3300.6900, L3300.1900, L300.4700, L501.1400 #### [facility] [address] [place], [address] Bilirubin [Mass/Vol] 0.20 mg/dL Normal 0.20-1.00 [facility] Comment on above: Order Comment: 1 Result Comment: For patients on eltrombopag therapy, use of [place] TBIL is not recommended. Performed By: #### L 801.2650, L501.45650, L506.1000, L503.6550, L801.1541, L500.4100, L506.0400, L101.9900, L504.2610, L501.9310, L501.5101, L501.9186, L801.1543, L100.0100, L501.9520, L503.6030, L501.9985, L3400.1350, L3250.0100, L3100.7870, L803.0600, L3300.7100, L500.4050, L3300.0100, L3300.6900, L3300.1900, L300.4700, L501.1400 #### [facility] [address] [place], [address] BUN/CRE 43.5 RATIO High 10-20 [facility] Comment on above: Order Comment: 1 Performed By: #### L 801.2650, L501.80037, L506.1000, L503.6550, L801.1541, L500.4100, L506.0400, L101.9900, L504.2610, L501.9310, L501.5101, L501.9186, L801.1543, L100.0100, L501.9520, L503.6030, L501.9985, L3400.1350, L3250.0100, L3100.7870, L803.0600, L3300.7100, L500.4050, L3300.0100, L3300.6900, L3300.1900, L300.4700, L501.1400 #### [facility] [address] [place], [address] CA,Total 9.0 mg/dL Normal 8.5-10.1 [facility] Comment on above: Order Comment: 1 Performed By: #### L 801.2650, L501.75699, L506.1000, L503.6550, L801.1541, L500.4100, L506.0400, L101.9900, L504.2610, L501.9310, L501.5101, L501.9186, L801.1543, L100.0100, L501.9520, L503.6030, L501.9985, L3400.1350, L3250.0100, L3100.7870, L803.0600, L3300.7100, L500.4050, L3300.0100, L3300.6900, L3300.1900, L300.4700, L501.1400 #### [facility] [address] [place], [address] Chloride [Moles/Vol] 107 mmol/L Normal 98-107 [facility] Comment on above: Order Comment: 1 Performed By: #### L 801.2650, L501.57128, L506.1000, L503.6550, L801.1541, L500.4100, L506.0400, L101.9900, L504.2610, L501.9310, L501.5101, L501.9186, L801.1543, L100.0100, L501.9520, L503.6030, L501.9985, L3400.1350, L3250.0100, L3100.7870, L803.0600, L3300.7100, L500.4050, L3300.0100, L3300.6900, L3300.1900, L300.4700, L501.1400 #### [facility] [address] [facility] [place], [address] CO2 [Moles/Vol] 27.0 mmol/L Normal 21.0-32.0 [facility] Comment on above: Order Comment: 1 Performed By: #### L 801.2650, L501.96355, L506.1000, L503.6550, L801.1541, L500.4100, L506.0400, L101.9900, L504.2610, L501.9310, L501.5101, L501.9186, L801.1543, L100.0100, L501.9520, L503.6030, L501.9985, L3400.1350, L3250.0100, L3100.7870, L803.0600, L3300.7100, L500.4050, L3300.0100, L3300.6900, L3300.1900, L300.4700, L501.1400 #### [facility] [address] [facility] [place], [address] Creatinine [Mass/Vol] 0.62 mg/dL Normal 0.55-1.02 [facility] Comment on above: Order Comment: 1 Result Comment: The validity of the calculated GFR GFRAA in patients over 70 years has not been determined. Clinical correlation is essential. Performed By: #### L 801.2650, L501.17784, L506.1000, L503.6550, L801.1541, L500.4100, L506.0400, L101.9900, L504.2610, L501.9310, L501.5101, L501.9186, L801.1543, L100.0100, L501.9520, L503.6030, L501.9985, L3400.1350, L3250.0100, L3100.7870, L803.0600, L3300.7100, L500.4050, L3300.0100, L3300.6900, L3300.1900, L300.4700, L501.1400 #### [facility] [address] [facility] [address] [place], [address] EST GFR - AA 127 mL/min Normal >60 [facility] Comment on above: Order Comment: 1 Result Comment: Afri can [place] GFR Calc Performed By: #### L 801.2650, L501.95605, L506.1000, L503.6550, L801.1541, L500.4100, L506.0400, L101.9900, L504.2610, L501.9310, L501.5101, L501.9186, L801.1543, L100.0100, L501.9520, L503.6030, L501.9985, L3400.1350, L3250.0100, L3100.7870, L803.0600, L3300.7100, L500.4050, L3300.0100, L3300.6900, L3300.1900, L300.4700, L501.1400 #### [facility] [address] [facility] [place], [address] GAP 5 Normal 5-15 [facility] Comment on above: Order Comment: 1 Performed By: #### L 801.2650, L501.86505, L506.1000, L503.6550, L801.1541, L500.4100, L506.0400, L101.9900, L504.2610, L501.9310, L501.5101, L501.9186, L801.1543, L100.0100, L501.9520, L503.6030, L501.9985, L3400.1350, L3250.0100, L3100.7870, L803.0600, L3300.7100, L500.4050, L3300.0100, L3300.6900, L3300.1900, L300.4700, L501.1400 #### [facility] [address] [facility] [place], [address] GFR/1.73 sq M.predicted among non-blacks MDRD (S/P/Bld) [Vol rate/Area] 105 mL/min/{1.73_m2} Normal >60 [facility] Comment on above: Order Comment: 1 Result Comment: Non- GFR Calc Performed By: #### L 801.2650, L501.04849, L506.1000, L503.6550, L801.1541, L500.4100, L506.0400, L101.9900, L504.2610, L501.9310, L501.5101, L501.9186, L801.1543, L100.0100, L501.9520, L503.6030, L501.9985, L3400.1350, L3250.0100, L3100.7870, L803.0600, L3300.7100, L500.4050, L3300.0100, L3300.6900, L3300.1900, L300.4700, L501.1400 #### [facility] [address] [facility]. [place], [place], [id number] Globulin (S) [Mass/Vol] 2.6 g/dL Normal 2.2-4.2 [facility] Comment on above: Order Comment: 1 Performed By: #### L 801.2650, L501.63103, L506.1000, L503.6550, L801.1541, L500.4100, L506.0400, L101.9900, L504.2610, L501.9310, L501.5101, L501.9186, L801.1543, L100.0100, L501.9520, L503.6030, L501.9985, L3400.1350, L3250.0100, L3100.7870, L803.0600, L3300.7100, L500.4050, L3300.0100, L3300.6900, L3300.1900, L300.4700, L501.1400 #### [facility] [address] [place], [address] Glucose [Mass/Vol] 86 mg/dL Normal 74-106 [facility] Comment on above: Order Comment: 1 Performed By: #### L 801.2650, L501.63485, L506.1000, L503.6550, L801.1541, L500.4100, L506.0400, L101.9900, L504.2610, L501.9310, L501.5101, L501.9186, L801.1543, L100.0100, L501.9520, L503.6030, L501.9985, L3400.1350, L3250.0100, L3100.7870, L803.0600, L3300.7100, L500.4050, L3300.0100, L3300.6900, L3300.1900, L300.4700, L501.1400 #### [facility] [address] [place], [address] Potassium [Moles/Vol] 3.7 mmol/L Normal 3.5-5.1 [facility] Comment on above: Order Comment: 1 Performed By: #### L 801.2650, L501.29511, L506.1000, L503.6550, L801.1541, L500.4100, L506.0400, L101.9900, L504.2610, L501.9310, L501.5101, L501.9186, L801.1543, L100.0100, L501.9520, L503.6030, L501.9985, L3400.1350, L3250.0100, L3100.7870, L803.0600, L3300.7100, L500.4050, L3300.0100, L3300.6900, L3300.1900, L300.4700, L501.1400 #### [facility] [address] [place], [address] Sodium [Moles/Vol] 139 mmol/L Normal 136-145 [facility] Comment on above: Order Comment: 1 Performed By: #### L 801.2650, L501.54278, L506.1000, L503.6550, L801.1541, L500.4100, L506.0400, L101.9900, L504.2610, L501.9310, L501.5101, L501.9186, L801.1543, L100.0100, L501.9520, L503.6030, L501.9985, L3400.1350, L3250.0100, L3100.7870, L803.0600, L3300.7100, L500.4050, L3300.0100, L3300.6900, L3300.1900, L300.4700, L501.1400 #### [facility] [address] [facility] [place], [place], [id number] T PROT 5.9 g/dL Low 6.4-8.2 [facility] Comment on above: Order Comment: 1 Performed By: #### L 801.2650, L501.62451, L506.1000, L503.6550, L801.1541, L500.4100, L506.0400, L101.9900, L504.2610, L501.9310, L501.5101, L501.9186, L801.1543, L100.0100, L501.9520, L503.6030, L501.9985, L3400.1350, L3250.0100, L3100.7870, L803.0600, L3300.7100, L500.4050, L3300.0100, L3300.6900, L3300.1900, L300.4700, L501.1400 #### [facility] [address] [place], [place], [id number] Urea nitrogen [Mass/Vol] 27 mg/dL High 7-18 [facility] Comment on above: Order Comment: 1 Performed By: #### L 801.2650, L501.99236, L506.1000, L503.6550, L801.1541, L500.4100, L506.0400, L101.9900, L504.2610, L501.9310, L501.5101, L501.9186, L801.1543, L100.0100, L501.9520, L503.6030, L501.9985, L3400.1350, L3250.0100, L3100.7870, L803.0600, L3300.7100, L500.4050, L3300.0100, L3300.6900, L3300.1900, L300.4700, L501.1400 #### [facility] [address] [place], [place], [id number] Erythrocyte Sed Rateon 02-06 SED RATE 5 mm/hr Normal 0-30 [facility] Comment on above: Performed By: #### L 801.2650, L501.92813, L506.1000, L503.6550, L801.1541, L500.4100, L506.0400, L101.9900, L504.2610, L501.9310, L501.5101, L501.9186, L801.1543, L100.0100, L501.9520, L503.6030, L501.9985, L3400.1350, L3250.0100, L3100.7870, L803.0600, L3300.7100, L500.4050, L3300.0100, L3300.6900, L3300.1900, L300.4700, L501.1400 #### [facility] [address] [place], [place], [address] Ferritinon 02-07-2024 Ferritin [Mass/Vol] 5 ng/mL Low 8-252 [facility] Comment on above: Order Comment: 1 Performed By: #### L 801.2650, L501.08758, L506.1000, L503.6550, L801.1541, L500.4100, L506.0400, L101.9900, L504.2610, L501.9310, L501.5101, L501.9186, L801.1543, L100.0100, L501.9520, L503.6030, L501.9985, L3400.1350, L3250.0100, L3100.7870, L803.0600, L3300.7100, L500.4050, L3300.0100, L3300.6900, L3300.1900, L300.4700, L501.1400 #### [facility] [address] [facility] [place], [place], [id number] Fibrinogenon 02-07-2024 FIBRINOGEN 338 mg/dl Normal 203-444 [facility] Comment on above: Performed By: #### L 801.2650, L501.27530, L506.1000, L503.6550, L801.1541, L500.4100, L506.0400, L101.9900, L504.2610, L501.9310, L501.5101, L501.9186, L801.1543, L100.0100, L501.9520, L503.6030, L501.9985, L3400.1350, L3250.0100, L3100.7870, L803.0600, L3300.7100, L500.4050, L3300.0100, L3300.6900, L3300.1900, L300.4700, L501.1400 #### [facility] [address] [place], [place], [id number] Free T3on 02-07-2024 Free T3 [Mass/Vol] 1.6 pg/mL Low 2.18-3.98 [facility] Comment on above: Order Comment: 1 Performed By: #### L 801.2650, L501.05558, L506.1000, L503.6550, L801.1541, L500.4100, L506.0400, L101.9900, L504.2610, L501.9310, L501.5101, L501.9186, L801.1543, L100.0100, L501.9520, L503.6030, L501.9985, L3400.1350, L3250.0100, L3100.7870, L803.0600, L3300.7100, L500.4050, L3300.0100, L3300.6900, L3300.1900, L300.4700, L501.1400 #### [facility] [address] [place], [place], [id number] Hemoglobin A1con 02-07-2024 HbA1c (Bld) [Mass fraction] 5.6 % Normal 3.8-5.6 [facility] Comment on above: Result Comment: Norm al < 5.7 % Prediabetic 5.7 - 6.4 % Diabetic >or= 6.5 % Please note range changes. Performed By: #### L 801.2650, L501.18503, L506.1000, L503.6550, L801.1541, L500.4100, L506.0400, L101.9900, L504.2610, L501.9310, L501.5101, L501.9186, L801.1543, L100.0100, L501.9520, L503.6030, L501.9985, L3400.1350, L3250.0100, L3100.7870, L803.0600, L3300.7100, L500.4050, L3300.0100, L3300.6900, L3300.1900, L300.4700, L501.1400 #### [facility] [address] [place], [address] Iron+Iron Binding Capacityon 02-07-2024 Iron [Mass/Vol] 37 ug/dL Low 50-170 [facility] Comment on above: Order Comment: 1 Performed By: #### L 801.2650, L501.68004, L506.1000, L503.6550, L801.1541, L500.4100, L506.0400, L101.9900, L504.2610, L501.9310, L501.5101, L501.9186, L801.1543, L100.0100, L501.9520, L503.6030, L501.9985, L3400.1350, L3250.0100, L3100.7870, L803.0600, L3300.7100, L500.4050, L3300.0100, L3300.6900, L3300.1900, L300.4700, L501.1400 #### [facility] [address] [place], [place], [id number] IRON SATURATION 8.7 Low 15.0-55.0 [facility] Comment on above: Order Comment: 1 Performed By: #### L 801.2650, L501.87172, L506.1000, L503.6550, L801.1541, L500.4100, L506.0400, L101.9900, L504.2610, L501.9310, L501.5101, L501.9186, L801.1543, L100.0100, L501.9520, L503.6030, L501.9985, L3400.1350, L3250.0100, L3100.7870, L803.0600, L3300.7100, L500.4050, L3300.0100, L3300.6900, L3300.1900, L300.4700, L501.1400 #### [facility] [address] [facility] [place], [place], [phone] TIBC 424 ug/dL Normal 250-450 [facility] Comment on above: Order Comment: 1 Performed By: #### L 801.2650, L501.36473, L506.1000, L503.6550, L801.1541, L500.4100, L506.0400, L101.9900, L504.2610, L501.9310, L501.5101, L501.9186, L801.1543, L100.0100, L501.9520, L503.6030, L501.9985, L3400.1350, L3250.0100, L3100.7870, L803.0600, L3300.7100, L500.4050, L3300.0100, L3300.6900, L3300.1900, L300.4700, L501.1400 #### [facility] [address] [facility] [place], [place], [id number] LDHon 02-07-2024 LDH 163 U/L Normal 84-246 [facility] Comment on above: Order Comment: 1 Performed By: #### L 801.2650, L501.42259, L506.1000, L503.6550, L801.1541, L500.4100, L506.0400, L101.9900, L504.2610, L501.9310, L501.5101, L501.9186, L801.1543, L100.0100, L501.9520, L503.6030, L501.9985, L3400.1350, L3250.0100, L3100.7870, L803.0600, L3300.7100, L500.4050, L3300.0100, L3300.6900, L3300.1900, L300.4700, L501.1400 #### [facility] [address] [facility]. [place], [place], [address] Lipid Profileon 02-07-2024 Cholesterol [Mass/Vol] 218 mg/dL High [address] [facility] Comment on above: Order Comment: 1 Result Comment: <200 mg/dL Desirable 200-240 mg/dL Borderline >240 mg/dL High Risk Performed By: #### L 801.2650, L501.07611, L506.1000, L503.6550, L801.1541, L500.4100, L506.0400, L101.9900, L504.2610, L501.9310, L501.5101, L501.9186, L801.1543, L100.0100, L501.9520, L503.6030, L501.9985, L3400.1350, L3250.0100, L3100.7870, L803.0600, L3300.7100, L500.4050, L3300.0100, L3300.6900, L3300.1900, L300.4700, L501.1400 #### [facility] [address] [place], [address] (209) Cholesterol in HDL [Mass/Vol] 94 mg/dL Normal [facility] Comment on above: Order Comment: 1 Result Comment: The drugs N-Acetylcysteine and Metamizole may falsely depress this assay. Reference Range HDL <40 mg/dL Low HDL Cholesterol HDL >or= 60 mg/dL High HDL Cholesterol Performed By: #### L 801.2650, L501.21690, L506.1000, L503.6550, L801.1541, L500.4100, L506.0400, L101.9900, L504.2610, L501.9310, L501.5101, L501.9186, L801.1543, L100.0100, L501.9520, L503.6030, L501.9985, L3400.1350, L3250.0100, L3100.7870, L803.0600, L3300.7100, L500.4050, L3300.0100, L3300.6900, L3300.1900, L300.4700, L501.1400 #### [facility] [address] [facility] [place], [address] (004) Cholesterol in LDL [Mass/Vol] 120 mg/dL Normal 0-130 [facility] Comment on above: Order Comment: 1 Performed By: #### L 801.2650, L501.12561, L506.1000, L503.6550, L801.1541, L500.4100, L506.0400, L101.9900, L504.2610, L501.9310, L501.5101, L501.9186, L801.1543, L100.0100, L501.9520, L503.6030, L501.9985, L3400.1350, L3250.0100, L3100.7870, L803.0600, L3300.7100, L500.4050, L3300.0100, L3300.6900, L3300.1900, L300.4700, L501.1400 #### [facility] [address] [facility] [address] [place], [address] Cholesterol in VLDL [Mass/Vol] 4 mg/dL Low 5-40 [facility] Comment on above: Order Comment: 1 Performed By: #### L 801.2650, L501.94020, L506.1000, L503.6550, L801.1541, L500.4100, L506.0400, L101.9900, L504.2610, L501.9310, L501.5101, L501.9186, L801.1543, L100.0100, L501.9520, L503.6030, L501.9985, L3400.1350, L3250.0100, L3100.7870, L803.0600, L3300.7100, L500.4050, L3300.0100, L3300.6900, L3300.1900, L300.4700, L501.1400 #### [facility] [address] [facility] [facility] [place], [address] Triglyceride [Mass/Vol] 22 mg/dL Normal [facility] Comment on above: Order Comment: 1 Result Comment: The drugs N-Acetylcysteine and Metamizole may falsely depress this assay. Serum Triglycerides Reference Interval Normal <150 mg/dL Borderline high 150 - 199 mg/dL High 200 - 499 mg/dL Very High > or = 500 mg/dL Performed By: #### L 801.2650, L501.25021, L506.1000, L503.6550, L801.1541, L500.4100, L506.0400, L101.9900, L504.2610, L501.9310, L501.5101, L501.9186, L801.1543, L100.0100, L501.9520, L503.6030, L501.9985, L3400.1350, L3250.0100, L3100.7870, L803.0600, L3300.7100, L500.4050, L3300.0100, L3300.6900, L3300.1900, L300.4700, L501.1400 #### [facility] [address] [facility] [place], [place], [id number] T3 Total - Triiodothyronineo n 02-07-2024 T3 Total 0.80 ng/mL Normal 0.6-1.81 [facility] Comment on above: Performed By: #### L 801.2650, L501.41252, L506.1000, L503.6550, L801.1541, L500.4100, L506.0400, L101.9900, L504.2610, L501.9310, L501.5101, L501.9186, L801.1543, L100.0100, L501.9520, L503.6030, L501.9985, L3400.1350, L3250.0100, L3100.7870, L803.0600, L3300.7100, L500.4050, L3300.0100, L3300.6900, L3300.1900, L300.4700, L501.1400 #### [facility] [address] [facility] [place], [place], [id number] T4 Free Directon 02-07-2024 T4 FREE DIRECT 1.11 ng/dL Normal 0.76-1.46 [facility] Comment on above: Order Comment: 1 Performed By: #### L 801.2650, L501.54514, L506.1000, L503.6550, L801.1541, L500.4100, L506.0400, L101.9900, L504.2610, L501.9310, L501.5101, L501.9186, L801.1543, L100.0100, L501.9520, L503.6030, L501.9985, L3400.1350, L3250.0100, L3100.7870, L803.0600, L3300.7100, L500.4050, L3300.0100, L3300.6900, L3300.1900, L300.4700, L501.1400 #### [facility] [address] [facility] [facility] [place], [place], [id number] T4 Total, Thyroxinon 024 T4 [Mass/Vol] 9.4 ug/dL Normal 4.8-13.9 [facility] Comment on above: Order Comment: 1 Performed By: #### L 801.2650, L501.26625, L506.1000, L503.6550, L801.1541, L500.4100, L506.0400, L101.9900, L504.2610, L501.9310, L501.5101, L501.9186, L801.1543, L100.0100, L501.9520, L503.6030, L501.9985, L3400.1350, L3250.0100, L3100.7870, L803.0600, L3300.7100, L500.4050, L3300.0100, L3300.6900, L3300.1900, L300.4700, L501.1400 #### [facility] [address] [facility] [place], [address] Thyroid Stim Hormone (TSH)on 02-07-2024 TSH 2.170 uIU/mL Normal 0.358-3.740 [facility] Comment on above: Order Comment: 1 Performed By: #### L 801.2650, L501.97144, L506.1000, L503.6550, L801.1541, L500.4100, L506.0400, L101.9900, L504.2610, L501.9310, L501.5101, L501.9186, L801.1543, L100.0100, L501.9520, L503.6030, L501.9985, L3400.1350, L3250.0100, L3100.7870, L803.0600, L3300.7100, L500.4050, L3300.0100, L3300.6900, L3300.1900, L300.4700, L501.1400 #### [facility] [address] [facility] [place], [place], [id number] Uric Acidon 02-07-2024 URIC 4.2 mg/dL Normal 2.6-6.0 [facility] Comment on above: Order Comment: 1 Result Comment: The drugs N-Acetylcysteine and Metamizole may falsely depress this assay. Performed By: #### L 801.2650, L501.68717, L506.1000, L503.6550, L801.1541, L500.4100, L506.0400, L101.9900, L504.2610, L501.9310, L501.5101, L501.9186, L801.1543, L100.0100, L501.9520, L503.6030, L501.9985, L3400.1350, L3250.0100, L3100.7870, L803.0600, L3300.7100, L500.4050, L3300.0100, L3300.6900, L3300.1900, L300.4700, L501.1400 #### [facility] [address] [facility] [place], [place], [id number] Vitamin D,25 Hydroxyon 02-06 Vitamin D 25-OH 79.0 ng/mL Normal [facility] Comment on above: Result Comment: Mary min D 25(OH) Status Range Deficiency <20 ng/mL (50nmol/L) Insufficiency 20 - 30 ng/mL (50 - 75 nmol/L) Sufficiency 30 - 100 ng/mL (75 - 250 nmol/L) Toxicity >100 ng/mL (>250 nmol/L) Performed By: #### L 801.2650, L501.70104, L506.1000, L503.6550, L801.1541, L500.4100, L506.0400, L101.9900, L504.2610, L501.9310, L501.5101, L501.9186, L801.1543, L100.0100, L501.9520, L503.6030, L501.9985, L3400.1350, L3250.0100, L3100.7870, L803.0600, L3300.7100, L500.4050, L3300.0100, L3300.6900, L3300.1900, L300.4700, L501.1400 #### [facility] [address] [place], [address] Endocrinology Visit Reporton 01-12-2024 Endocrinology Visit Report [facility] [address] [place] [address] OFFICE VISIT Date of Service: 01/12/24 MR#: [id number] Acct: [id number] Name: SOURAVFILIBERTOHALEY BALBINA Rep #: [id number] : 1965 Provider: Jessie Dickinson Age/Sex: 58/F [place] [facility] [place] Status: Signed Intake Vital Signs 01/11/23 13:30 01/12/24 13:49 Height 5 ft 10 in 5 ft 10 in Weight: 135 lb 6 oz BMI 19.4 BP 120/75 Blood Pressure Location Rt brachial Position Sitting Pulse 58 L Pulse Source Monitor Pulse Oximetry (%) 98 Oxygen Delivery Method room air Intake Visit Reasons: 1 Y FU Chief Complaint: hypothyroidism Is patient in pain?: No Allergies codeine Allergy (Verified 01/11/23 13:34) Vomiting amoxicillin Adverse Reaction (Intermediate, Verified 01/11/23 13:34) hot flash lactose Adverse Reaction (Verified 01/11/23 13:34) Vomiting Medications ???Medication ???Instructions ???Recorded ???Confirmed ???Type digestive enzymes 1 tab PO TIDCM 03/15/22 01/12/24 History cholecalciferol (vitamin D3) 25 50 mcg (2 x 25 mcg (1,000 unit)) 03/20/22 01/12/24 Rx mcg (1,000 unit) tablet PO DAILY 30 days #60 tabs acetylcysteine (bulk) ea miscellaneous 05/20/22 01/12/24 History magnesium chelate, malate 360 mg PO 01/11/23 01/12/24 History vitamin K2 180 mcg capsule 180 mcg PO DAILY 01/11/23 01/12/24 History diluent,naltrexone microsphere 0.6 ml IM 01/12/24 01/12/24 History levothyroxine 50 mcg tablet See Rx Instructions PO DAILY #38 01/12/24 01/12/24 Rx tabs PFSH Medical History Anasarca Difficulty in walking Osteoporosis 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 She has hypothyroidism with a history of difficult to control levels. Her levels have been stable for quite some time now and she is pleased. She had labs done recently and TSH is normal. She has some digestive issues that are being treated. ROS Const Constitutional: No fatigue or weight change ENT ENT: No dizziness/vertigo Cardio Cardiology: No chest pain at rest, chest pain with exertion, shortness of breath or palpitations Skin Skin: No wounds Endo Endocrine: No fatigue or weight change Exam Const General: cooperative, healthy appearing, comfortable, no acute distress, well developed and not cushingoid Nutritional Appearance: thin Orientation: alert, awake and oriented x3 HENMT Head: normal to inspection Ears: hearing grossly normal bilaterally Nose: external nose normal Mouth: oral mucosae normal Eyes General: appearance normal, both eyes and all related structures Alignment and Position: alignment normal Periorbital: periorbital findings normal Eyelids: eyelids normal Conjunctivae: conjunctivae normal Neck Neck: normal visual inspection Neck mass: No Thyroid: thyroid normal Lymphatic: no lymphadenopathy noted Chest Chest palpation inspection: normal inspection of the chest Resp Effort Inspection: normal respiratory effort, able to speak in complete sentences, symmetric chest movement, no audible wheezes and no cough Cardio Rate: regular rate Rhythm: regular rhythm Skin General: no rashes or lesions noted Neuro General: patient alert, patient awake and patient oriented x3 Cranial Nerves: CN's II-XI intact bilaterally Cognition: normal cognition Speech: speech normal Gait: normal gait Motor: muscle tone normal throughout Extrem General: no edema Psych Appearance: grossly normal Mental Status: mental status grossly normal Mood: congruent mood Affect: normal affect Speech and Movement: speech and movement normal Attitude: cooperative Thought Process: normal Thought Content: normal Judgment: judgment good Assessment and Plan Assessment and Plan (1) Hypothyroid: Status: Chronic Qualifiers: Hypothyroidism type: unspecified Qualified Code(s): E03.9 - Hypothyroidism, unspecified Plan: Take levothyroxine on an empty stomach with water at least four hours after eating. Then wait 30-60 minutes before consuming any other food or beverage, especially coffee. Separate levothyroxine from vitamins by at least 4 hours. Stop taking any biotin s (more content not included)... Normal [facility] CBC W Auto Differential pane l (Bld)on 01-06-2024 Basophils (Bld) [#/Vol] 0.05 10*3/uL Normal <0.11 [facility] Comment on above: Order Comment: Specthiago monique Type: BLOOD SPECIMEN Ordering Facility: [facility] Address: [address] [place] [address] Performed By: #### I FESC #### [facility] CLIA [id number] [address] [place] [address] [place] Basophils/100 WBC (Bld) 0.8 % Normal [facility] Comment on above: Order Comment: Speci eneida Type: BLOOD SPECIMEN Ordering Facility: [facility] Address: [address] [place] [address] Performed By: #### I FESC #### [facility] CLIA [id number] [address] [place] [address] [place] Differential cell count method Nom (Bld) Auto Normal [facility] Comment on above: Order Comment: Speci men Type: BLOOD SPECIMEN Ordering Facility: [facility] Address: [address] [place] [address] Performed By: #### I FESC #### [facility] CLIA [id number] [address] [place] [address] [place] Eosinophils (Bld) [#/Vol] 0.09 10*3/uL Normal <0.46 [facility] Comment on above: Order Comment: Speci men Type: BLOOD SPECIMEN Ordering Facility: [facility] Address: [address] [place] [address] Performed By: #### I FESC #### [facility] CLIA [id number] [address] [place] [address] [place] Eosinophils/100 WBC (Bld) 1.5 % Normal [facility] Comment on above: Order Comment: Speci men Type: BLOOD SPECIMEN Ordering Facility: [facility] Address: [address] [place] [address] Performed By: #### I FESC #### [facility] CLIA [id number] [address] [place] [address] [place] Erythrocyte distribution width (RBC) [Ratio] 18.1 % High 11.5-15.0 [facility] Comment on above: Order Comment: Speci men Type: BLOOD SPECIMEN Ordering Facility: [facility] Address: [address] [place] [address] Performed By: #### I FESC #### [facility] CLIA [id number] [address] [place] [address] [place] Hematocrit (Bld) [Volume fraction] 31.6 % Low 36.0-46.0 [facility] Comment on above: Order Comment: Speci men Type: BLOOD SPECIMEN Ordering Facility: [facility] Address: [address] [place] [address] Performed By: #### I FESC #### [facility] CLIA [id number] [address] [place] [address] [place] Hemoglobin (Bld) [Mass/Vol] 10.5 g/dL Low 11.5-15.5 [facility] Comment on above: Order Comment: Speci men Type: BLOOD SPECIMEN Ordering Facility: [facility] Address: [address] [place] [address] Performed By: #### I FESC #### [facility] CLIA [id number] [address] [place] [address] [place] Immature granulocytes (Bld) [#/Vol] 10*3/uL Normal <0.10 [place] [facility] Comment on above: Order Comment: Speci men Type: BLOOD SPECIMEN Ordering Facility: [facility] Address: [address] [place] [address] Performed By: #### I FESC #### [facility] CLIA [id number] [address] [place] [address] [place] Immature granulocytes/100 WBC (Bld) 0.3 % Normal [facility] Comment on above: Order Comment: Speci men Type: BLOOD SPECIMEN Ordering Facility: [facility] Address: [address] [place] [address] Performed By: #### I FESC #### [facility] CLIA [id number] [address] [place] [address] [place] Lymphocytes (Bld) [#/Vol] 1.31 10*3/uL Normal 1.00-4.00 [facility] Comment on above: Order Comment: Speci men Type: BLOOD SPECIMEN Ordering Facility: [facility] Address: [address] [place] [address] Performed By: #### I FESC #### [facility] CLIA [id number] [address] [place] [address] [place] Lymphocytes/100 WBC (Bld) 22.1 % Normal [facility] Comment on above: Order Comment: Speci men Type: BLOOD SPECIMEN Ordering Facility: [facility] Address: [address] [place] [address] Performed By: #### I FESC #### [facility] CLIA [id number] [address] [place] [address] [place] MCH (RBC) [Entitic mass] 29.0 pg Normal 26.0-34.0 [facility] Comment on above: Order Comment: Speci men Type: BLOOD SPECIMEN Ordering Facility: [facility] Address: [address] [place] [address] Performed By: #### I FESC #### [facility] CLIA [id number] [address] [place] [address] [place] MCHC (RBC) [Mass/Vol] 33.2 g/dL Normal 30.5-36.0 [facility] Comment on above: Order Comment: Speci men Type: BLOOD SPECIMEN Ordering [facility] Address: [address] [place] [address] Performed By: #### I FESC #### [facility] CLIA [id number] [address] [place] [address] [place] MCV (RBC) [Entitic vol] 87.3 fL Normal 80.0-100.[address] [facility] Comment on above: Order Comment: Speci men Type: BLOOD SPECIMEN Ordering [facility]: [facility] Address: [address] [place] [address] Performed By: #### I FESC #### [facility] CLIA [id number] [address] [place] [address] [place] Monocytes (Bld) [#/Vol] 0.42 10*3/uL Normal <0.87 [facility] Comment on above: Order Comment: Speci men Type: BLOOD SPECIMEN Ordering [facility]: [facility] Address: [address] [place] [address] Performed By: #### I FESC #### [facility] CLIA [id number] [address] [place] [address] [place] Monocytes/100 WBC (Bld) 7.1 % Normal [facility] Comment on above: Order Comment: Speci men Type: BLOOD SPECIMEN Ordering [facility] Address: [address] [place] [address] Performed By: #### I FESC #### [facility] CLIA [id number] [address] [place] [address] [place] Neutrophils (Bld) [#/Vol] 4.04 10*3/uL Normal 1.45-7.50 [facility] Comment on above: Order Comment: Speci men Type: BLOOD SPECIMEN [facility] Address: [address] [place] [address] Performed By: #### I FESC #### [facility] CLIA [id number] [address] [place] [address] [place] Neutrophils/100 WBC (Bld) 68.2 % Normal [facility] Comment on above: Order Comment: Speci men Type: BLOOD SPECIMEN Ordering [facility] Address: [address] [place] [address] Performed By: #### I FESC #### [facility] CLIA [id number] [address] [place] [address] [place] Nucleated RBC (Bld) [#/Vol] 10*3/uL Normal <0.01 [facility] Comment on above: Order Comment: Speci men Type: BLOOD SPECIMEN [facility]ing [facility] Address: [address] [place] [address] Performed By: #### I FESC #### [facility] CLIA [id number] [address] [place] [address] [place] Nucleated RBC/100 WBC (Bld) [Ratio] 0.0 /100 WBC Normal [facility] Comment on above: Order Comment: Speci men Type: BLOOD SPECIMEN Ordering Facility: [facility] Address: [address] [place] [address] Performed By: #### I FESC #### [facility] CLIA [id number] [address] [place] [address] [place] Platelet mean volume (Bld) [Entitic vol] 10.3 fL Normal 9.0-12.7 [facility] Comment on above: Order Comment: Speci men Type: BLOOD SPECIMEN [facility]ing [facility] Address: [address] [place] [address] Performed By: #### I FESC #### [facility] CLIA [id number] [address] [place] [address] [place] Platelets (Bld) [#/Vol] 342 10*3/uL Normal 150-400 [facility] Comment on above: Order Comment: Speci men Type: BLOOD SPECIMEN [facility] Address: [address] [place] [address] Performed By: #### I FESC #### [facility] CLIA [id number] [address] [place] [address] [place] RBC (Bld) [#/Vol] 3.62 10*6/uL Low 3.90-5.20 [facility] Comment on above: Order Comment: Speci men Type: BLOOD SPECIMEN [facility] Address: [address] [place] [address] Performed By: #### I FESC #### [facility] CLIA [id number] [address] [place], [place] [id number] [place] WBC (Bld) [#/Vol] 5.93 10*3/uL Normal 3.70-11.00 [facility] Comment on above: Order Comment: Speci men Type: BLOOD SPECIMEN Ordering [facility] Address: [address] [place] [address] Performed By: #### I FESC #### [facility] CLIA [id number] [address] [place], [place] [address], [place] [address] [place] Comprehensive metabolic 2000 panelon 01-06-2024 Albumin [Mass/Vol] 4.0 g/dL Normal 3.9-4.9 [facility] Comment on above: Order Comment: Speci men Type: BLOOD SPECIMENOrdering Facility: [facility] Address: [address] [place] [address] Performed By: #### 2 4323-8, 2532-0 ####[facility] MILLWAURORALIA [id number] [place] [address] [place] ALP [Catalytic activity/Vol] 94 U/L Normal 34-123 [facility] Comment on above: Order Comment: Speci men Type: BLOOD SPECIMENOrdering Facility: [facility] Address: [address] [place] [address] Performed By: #### 2 4323-8, 2-0 ####[facility]ENTERWAURORALIA [id number] [place] [address] [place] ALT [Catalytic activity/Vol] 17 U/L Normal 7-38 [facility] Comment on above: Order Comment: Speci men Type: BLOOD SPECIMENOrdering Facility: [facility] Address: [address] [place] [address] Performed By: #### 2 4323-8, 2-0 ####[facility] CAMPUSALPHONSOA [id number] [place] [address] [place] Anion gap [Moles/Vol] 8 mmol/L Normal 8-15 [facility] Comment on above: Order Comment: Speci men Type: BLOOD SPECIMENOrdering Facility: [facility] Address: [address] [place] [address] Performed By: #### 2 4323-8, 2532-0 ####[facility]ENTERWNCLIA [id number] [place] [address] [place] AST [Catalytic activity/Vol] 14 U/L Normal 13-35 [facility] Comment on above: Order Comment: Speci men Type: BLOOD SPECIMENOrdering Facility: [facility] Address: [address] [place] [address] Performed By: #### 2 4323-8, 2531-0 ####[facility] [id number] [place] [address] [place] Bilirubin [Mass/Vol] mg/dL Low 0.2-1.3 [facility] Comment on above: Order Comment: Speci men Type: BLOOD SPECIMENOrdering Facility: [facility] Address: [address] [place] [address] Performed By: #### 2 4323-8, ####[facility] [id number] [place] [address] [place] Calcium [Mass/Vol] 10.1 mg/dL Normal 8.5-10.2 [facility] Comment on above: Order Comment: Speci men Type: BLOOD SPECIMENOrdering Facility: [facility] Address: [address] [place] [address] Performed By: #### 2 4323-8, 0 ####[facility] [id number] [place] [address] [place] Chloride [Moles/Vol] 103 mmol/L Normal 98-107 [facility] Comment on above: Order Comment: Speci men Type: BLOOD SPECIMENOrdering Facility: [facility] Address: [address] [place] [address] Performed By: #### 2 4323-8, 0 ####[facility] [id number] [place] [address] [place] CO2 [Moles/Vol] 27 mmol/L Normal 22-30 [facility] Comment on above: Order Comment: Speci men Type: BLOOD SPECIMENOrdering Facility: [facility] Address: [address] [place], [place] [address] Performed By: #### 2 4323-8, ####[facility] [id number] [place] [address] [place] Creatinine [Mass/Vol] 0.82 mg/dL Normal 0.58-0.96 [facility] Comment on above: Order Comment: Speci men Type: BLOOD SPECIMENOrdering Facility: [facility] Address: [address] [place] [address] Performed By: #### 2 4323-8, ####[facility] [id number] [place] [address] [place] Creatinine and Glomerular filtration rate.predicted panel (S/P/Bld) 83 mL/min/1.73m??? Normal >=60 [facility] Comment on above: Order Comment: Speci men Type: BLOOD SPECIMENOrdering Facility: [facility] Address: [address] [place] [address] Result Comment: Jannet mated Glomerular Filtration Rate (eGFR) is calculated using the 2020 CKD-EPI creatinine equation. This equation utilizes serum creatinine, sex, and age as parameters. The creatinine assay has traceable calibration to isotope dilution-mass spectrometry. Refer to KDIGO guidelines for clinical interpretation. In patients with unstable renal function, e.g. those with acute kidney injury, the eGFR may not accurately reflect actual GFR. Performed By: #### 2 4323-8, ####[facility] [id number] [place] [address] [place] Glucose [Mass/Vol] 102 mg/dL High 74-99 [facility] Comment on above: Order Comment: Speci men Type: BLOOD SPECIMENOrdering Facility: [facility] Address: [address] [place] [address] Result Comment: The [place] Diabetes [employer] (ADA) provides guidance for cutoff values for fasting glucose and random glucose. The ADA defines fasting as no caloric intake for at least 8 hours. Fasting plasma glucose results between 100 to 125 mg/dL indicate increased risk for diabetes (prediabetes). Fasting plasma glucose results greater than or equal to 126 mg/dL meet the criteria for diagnosis of diabetes. In the absence of unequivocal hyperglycemia, results should be confirmed by repeat testing. In a patient with classic symptoms of hyperglycemia or hyperglycemic crisis, random plasma glucose results greater than or equal to 200 mg/dL meet the criteria for diagnosis of diabetes. Reference: Standards of Medical Care in Diabetes 2016, [place] [employer]. Diabetes Care. 2016.39(Suppl 1). Performed By: #### 2 4323-8, 0 ####[facility] CAMPUSDANNY [id number] [place] [address] [place] Potassium [Moles/Vol] 4.4 mmol/L Normal 3.7-5.1 [facility] Comment on above: Order Comment: Speci men Type: BLOOD SPECIMENOrdering Facility: [facility] Address: [address] [place] [address] Performed By: #### 2 4323-8, ####[facility] HOSPITALRosa [id number] [place] [address] [place] Protein [Mass/Vol] 6.0 g/dL Low 6.3-8.0 [facility] Comment on above: Order Comment: Speci men Type: BLOOD SPECIMENOrdering Facility: [facility] Address: [address] [place] [address] Performed By: #### 2 4323-8, 0 ####[facility] [id number] [place] [address] [place] Sodium [Moles/Vol] 138 mmol/L Normal 136-144 [facility] Comment on above: Order Comment: Speci men Type: BLOOD SPECIMENOrdering Facility: [facility] Address: [address] [place] [address] Performed By: #### 2 4323-8, 2532-0 ####[facility] CAMPUSNCLIA [id number] [place] [address] [place] Urea nitrogen [Mass/Vol] 33 mg/dL High 7-21 [facility] Comment on above: Order Comment: Speci men Type: BLOOD SPECIMENOrdering Facility: [facility] Address: [address] [place] [address] Performed By: #### 2 4323-8, 2531-0 ####[facility] [id number] [place] [address] [place] IMMUNOFIXATION SCREEN, SERUM on 01-06-2024 MPA RESULT No M protein is identified. Normal No M protein is identified. [facility] Comment on above: Order Comment: Speci men Type: BLOOD SPECIMENOrdering Facility: [facility] Address: [address] [place] [address] Performed By: #### I FESC ####[facility] LABCLIA [id number] [place] [address] [place] STAFF REVIEW (MPA) Reviewed by Codie Adames MD [facility] Comment on above: Order Comment: Speci men Type: BLOOD SPECIMENOrdering Facility: [facility] Address: [address] [place] [address] Performed By: #### I FESC ####[facility] LABCLIA [id number] [place] [address] [place] IMMUNOGLOBULINS,IGG,IGA,IGMo n 01-06-2024 IgA [Mass/Vol] 31 mg/dL Low 70-400 [facility] Comment on above: Order Comment: Speci men Type: BLOOD SPECIMEN [facility] Address: [address] [place] [address] Performed By: #### I FESC #### [facility] CLIA [id number] [address] [place] [address] [place] IgG [Mass/Vol] 589 mg/dL Low 700-1600 [facility] Comment on above: Order Comment: Speci men Type: BLOOD SPECIMEN [facility] Address: [address] [place] [address] Performed By: #### I FES #### [facility] CLIA [id number] [address] [place] [address] [place] IgM [Mass/Vol] 25 mg/dL Low 40-230 [facility] Comment on above: Order Comment: Speci men Type: BLOOD SPECIMEN [facility] Address: [address] [place] [address] Performed By: #### I [facility] #### [facility] CLIA [id number] [address] [place] [address] [place] KAPPA/VIVEROS,FREE,SERon 2023 Immunoglobulin light chains.kappa.free (S) [Mass/Vol] 13.1 mg/L Normal 3.3-19.4 [facility] Comment on above: Order Comment: Speci men Type: BLOOD SPECIMENOrdering Facility: [facility] Address: [address] [place] [address] Result Comment: Rare ly, increased serum free light chains levels may not be detected or accurately quantified due to prozone phenomenon or in high viscosity samples using this immunoturbidimetric assay. Correlation with other laboratory results and clinical findings is recommended. The [place] Free Light Chain was performed using the Binding Site Optilite immunoturbidimetric method. Result obtained with different assay methods or kits cannot be used interchangeably. Performed By: #### K LFRS ####[facility] LABCLIA [id number] [place] [address] [place] Immunoglobulin light chains.kappa/Immunoglobu dariana light chains.lambda (S) [Mass ratio] 0.13 Low 0.26-1.65 [facility] Comment on above: Order Comment: Speci men Type: BLOOD SPECIMENOrdering Facility: [facility] Address: [address] [place] [address] Performed By: #### K LFRS ####[facility] LABCLIA [id number] [place] [address] [place] Immunoglobulin light chains.lambda.free [Mass/Vol] 97.6 mg/L High 5.7-26.3 [facility] Comment on above: Order Comment: Speci men Type: BLOOD SPECIMENOrdering Facility: [facility] Address: [address] [place] [address] Result Comment: Rare ly, increased serum free light chains levels may not be detected or accurately quantified due to prozone phenomenon or in high viscosity samples using this immunoturbidimetric assay. Correlation with other laboratory results and clinical findings is recommended. The L[place] Free Light Chain was performed using the Binding Site Optilite immunoturbidimetric method. Result obtained with different assay methods or kits cannot be used interchangeably. Performed By: #### K LFRS ####[facility] LABCLIA [id number] [place] [address] [place] LDH SerPl-cCncon 01-06-2024 LDH [Catalytic activity/Vol] 172 U/L Normal 135-214 [facility] Comment on above: Order Comment: Speci men Type: BLOOD SPECIMENOrdering Facility: [facility] Address: [address] [place] [address] Performed By: #### 2 4323-8, 2532-0 ####[facility] [id number] [place] [address] [place] MONOCLONAL PROT UR W/INTERPo n 01-06-2024 INTERPRETATION (UMPA) An atypical restri cted band is present in the lambda region. 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 Normal [facility] Comment on above: Order Comment: Speci men Type: URINE SPECIMENOrdering Facility: [facility] Address: [address] [place] [address] Performed By: #### U RMPA ####[facility] LABCLIA [id number] [address] [place] STAFF REVIEW (UMPA) Reviewed by Codie Adames MD Normal [facility] Comment on above: Order Comment: Speci men Type: URINE SPECIMENOrdering Facility: [facility] Address: [address] [place] [address] Performed By: #### U RMPA ####[facility] LABCLIA [id number] [place] [address] [place] UMPA RESULT M protein is present. Abnormal No M p rotein is identified. [facility] Comment on above: Order Comment: Speci men Type: URINE SPECIMENOrdering Facility: [facility] Address: [address] [place] [address] Performed By: #### U RMPA ####[facility] LABIA [id number] [place] [address] [place] PROTEIN ELECTROPHORESIS SERU M (P)on 01-06-2024 Albumin [Mass/Vol] 3.72 g/dL Normal 3.43-5.41 [facility] Comment on above: Order Comment: Speci men Type: BLOOD SPECIMENOrdering Facility: [facility] Address: [address] [place] [address] Performed By: #### L [id number] ####[facility] LABCLIA [id number] [place] [address] [place] Alpha 1 globulin Elph [Mass/Vol] 0.28 g/dL Normal 0.18-0.43 [facility] Comment on above: Order Comment: Speci men Type: BLOOD SPECIMENOrdering Facility: [facility] Address: [address] [place] [address] Performed By: #### L [id number] ####[facility] LABCLIA [id number] [place] [address] [place] Alpha 2 globulin Elph [Mass/Vol] 0.56 g/dL Normal 0.42-0.98 [facility] Comment on above: Order Comment: Speci men Type: BLOOD SPECIMENOrdering Facility: [facility] Address: [address] [place] [address] Performed By: #### L [id number] ####[facility] LABIA [id number] [place] [address] [place] Beta globulin Elph [Mass/Vol] 0.63 g/dL Normal 0.61-1.17 [facility] Comment on above: Order Comment: Speci men Type: BLOOD SPECIMENOrdering Facility: [facility] Address: [address] [place] [address] Performed By: #### L [id number] ####[facility] LABIA [id number] [place] [address] [place] Gamma globulin Elph [Mass/Vol] 0.52 g/dL Low 0.53-1.51 [facility] Comment on above: Order Comment: Speci men Type: BLOOD SPECIMENOrdering Facility: [facility] Address: [address] [place] [address] Performed By: #### L [id number] ####[facility] LABIA [id number] [place] [address] [place] INTERPRETATION COMMENT FOR PROTEIN ELECTROPHORESIS Hypogammaglobulinemia is present, which can be seen in the setting of monoclonal gammopathy. If clinically indicated, monoclonal protein analysis and serum free light chain analysis are suggested to evaluate further for monoclonal gammopathy. Normal [facility] Comment on above: Order Comment: Speci men Type: BLOOD SPECIMENOrdering Facility: [facility] Address: [address] [place] [address] Performed By: #### L [id number] ####[facility] LABIA [id number] [place] [id number] [place] M-PROTEIN LOCATION Normal [facility] Comment on above: Order Comment: Speci men Type: BLOOD SPECIMENOrdering Facility: [facility] Address: [address] [place] [address] Result Comment: Not Applicable. Performed By: #### L [id number] ####[facility] LABIA [id number] [place] [address] [place] Protein Fractions [Interp] No definitive M protein is identified on protein electrophoresis. Normal No definitive M protein is identified on protein electrophore sis. [facility] Comment on above: Order Comment: Speci men Type: BLOOD SPECIMENOrdering Facility: [facility] Address: [address] [place] [address] Performed By: #### L [id number] ####[facility] LABIA [id number] [place] [address] [place] Protein.monoclonal Elph [Mass/Vol] 0.00 g/dL Normal <=0.00 [facility] Comment on above: Order Comment: Speci men Type: BLOOD SPECIMENOrdering Facility: [facility] Address: [address] [place] [address] Performed By: #### L [id number] ####[facility] LABIA [id number] [place] [address] [place] SPE STAFF REVIEW Reviewed by Codie Adames MD Normal [facility] Comment on above: Order Comment: Speci men Type: BLOOD SPECIMENOrdering Facility: [facility] Address: [address] [place] [address] Performed By: #### L [id number] ####[facility] LABIA [id number] [place] [address] [place] Prot SerPl-mCncon 01-06-2024 Protein [Mass/Vol] 5.7 g/dL Low 6.3-8.0 [facility] Comment on above: Order Comment: Speci men Type: BLOOD SPECIMENOrdering Facility: [facility] Address: [address] [place] [address] Performed By: #### 2 885-2 ####[facility] LABCLIA [id number] [place] [address] [place] Prot Ur-mCncon 01-06-2024 Protein (U) [Mass/Vol] 5 mg/dL Normal 0-20 [facility] Comment on above: Order Comment: Speci men Type: BLOOD SPECIMEN [facility] Address: [address] [place] [address] Performed By: #### I [facility] #### [facility] [facility] CLIA [id number] [address] [place] [address] [place] URINE PROTEIN ELECTROPHORESI S RANDOM (P)on 01-06-2024 Albumin Elph (U) [Mass fraction] 33.46 % Normal [facility] Comment on above: Order Comment: Speci men Type: URINE SPECIMENOrdering Facility: [facility] Address: [address] [place] [address] Performed By: #### L [id number] ####[facility] LABIA [id number] [place] [address] [place] Alpha 1 globulin Elph (U) [Mass fraction] 4.82 % Normal [facility] Comment on above: Order Comment: Speci men Type: URINE SPECIMENOrdering Facility: [facility] Address: [address] [place] [address] Performed By: #### L [id number] ####[facility] LABIA [id number] [place] [address] [place] Alpha 2 globulin Elph (U) [Mass fraction] 12.92 % Normal [facility] Comment on above: Order Comment: Speci men Type: URINE SPECIMENOrdering Facility: [facility] Address: [address] [place] [address] Performed By: #### L [id number] ####[facility] LABIA [id number] [place] [address] [place] Beta globulin Elph (U) [Mass fraction] 31.21 % Normal [facility] Comment on above: Order Comment: Speci men Type: URINE SPECIMENOrdering Facility: [facility] Address: [address] [place] [address] Performed By: #### L [id number] ####[facility] LABCLIA [id number] [place] [address] [place] Gamma globulin Elph (U) [Mass fraction] 17.59 % Normal [facility] Comment on above: Order Comment: Speci men Type: URINE SPECIMENOrdering Facility: [facility] Address: [address] [place] [address] Performed By: #### L [id number] ####[facility] LABCLIA [id number] [place] [address] [place] Protein Fractions Elph Shayne (U) [Interp] No definitive M protein is identified on protein electrophoresis. Normal No definitive M protein is identified on protein electrophore sis. [facility] Comment on above: Order Comment: Speci men Type: URINE SPECIMENOrdering Facility: [facility] Address: [address] [place] [address] Performed By: #### L [id number] ####[facility] LABCLIA [id number] [place] [address] [place] STAFF REVIEW (URINE ELECTRO) Reviewed by Codie Adames MD Normal [facility] Comment on above: Order Comment: Speci men Type: URINE SPECIMENOrdering Facility: [facility] Address: [address] [place] [address] Performed By: #### L [id number] ####[facility] LABCLIA [id number] [place] [address] [place] ALK Phos Isoenzymeon 024 ALK PHOS, S 92 IU/L Normal 44-121 [facility] Comment on above: Order Comment: Test( s) 745482-Jsqbsit T3, Serumwas developed and its performance characteristicsdetermined by [employer]. It has not been cleared or approvedby the Food and Drug Administration.N Performed By: #### L 801.2650, L501.97422, L506.1000, L503.6550, L801.1541, L500.4100, L506.0400, L101.9900, L504.2610, L501.9310, L501.5101, L501.9186, L801.1543, L100.0100, L501.9520, L503.6030, L501.9985, L3400.1350, L3250.0100, L3100.7870, L803.0600, L3300.7100, L500.4050, L3300.0100, L3300.6900, L3300.1900, L300.4700, L501.1400 #### [facility] [address] [facility] [place], [address] BONE FRACTION 60 Normal 14-68 [facility] Comment on above: Order Comment: Test( s) 335306-Uquyimy T3, Serumwas developed and its performance characteristicsdetermined by [employer]. It has not been cleared or approvedby the Food and Drug Administration.N Performed By: #### L 801.2650, L501.77544, L506.1000, L503.6550, L801.1541, L500.4100, L506.0400, L101.9900, L504.2610, L501.9310, L501.5101, L501.9186, L801.1543, L100.0100, L501.9520, L503.6030, L501.9985, L3400.1350, L3250.0100, L3100.7870, L803.0600, L3300.7100, L500.4050, L3300.0100, L3300.6900, L3300.1900, L300.4700, L501.1400 #### [facility] [address] [place], [address] INTESTINAL FRAC 0 Normal 0-18 [facility] Comment on above: Order Comment: Test( s) 717443-Cvyfkta T3, Serumwas developed and its performance characteristicsdetermined by [employer]. It has not been cleared or approvedby the Food and Drug Administration.N Performed By: #### L 801.2650, L501.21635, L506.1000, L503.6550, L801.1541, L500.4100, L506.0400, L101.9900, L504.2610, L501.9310, L501.5101, L501.9186, L801.1543, L100.0100, L501.9520, L503.6030, L501.9985, L3400.1350, L3250.0100, L3100.7870, L803.0600, L3300.7100, L500.4050, L3300.0100, L3300.6900, L3300.1900, L300.4700, L501.1400 #### [facility] [address] [place], [address] LIVER FRACTION 39 Normal 18-85 [facility] Comment on above: Order Comment: Test( s) 599927-Wubdewk T3, Serumwas developed and its performance characteristicsdetermined by [employer]. It has not been cleared or approvedby the Food and Drug Administration.N Performed By: #### L 801.2650, L501.10462, L506.1000, L503.6550, L801.1541, L500.4100, L506.0400, L101.9900, L504.2610, L501.9310, L501.5101, L501.9186, L801.1543, L100.0100, L501.9520, L503.6030, L501.9985, L3400.1350, L3250.0100, L3100.7870, L803.0600, L3300.7100, L500.4050, L3300.0100, L3300.6900, L3300.1900, L300.4700, L501.1400 #### [facility] [address] [place], [place], [id number] Copper, Serum or Plasmaon COPPER, SERUM 111 ug/dL Normal 80-158 [facility] Comment on above: Order Comment: Test( s) 856483-Dwjxoxs T3, Serumwas developed and its performance characteristicsdetermined by [employer]. It has not been cleared or approvedby the Food and Drug Administration.N Result Comment: Dete ction Limit = 5 Performed By: #### L 801.2650, L501.57520, L506.1000, L503.6550, L801.1541, L500.4100, L506.0400, L101.9900, L504.2610, L501.9310, L501.5101, L501.9186, L801.1543, L100.0100, L501.9520, L503.6030, L501.9985, L3400.1350, L3250.0100, L3100.7870, L803.0600, L3300.7100, L500.4050, L3300.0100, L3300.6900, L3300.1900, L300.4700, L501.1400 #### [facility] [address] [place], [place], [address] Insulin Levelon 12-14-2023 INSULIN,FASTING 2.7 uIU/mL Normal 2.6-24.9 [facility] Comment on above: Order Comment: Test( s) 951600-Pmasktq T3, Serumwas developed and its performance characteristicsdetermined by [employer]. It has not been cleared or approvedby the Food and Drug Administration.N Performed By: #### L 801.2650, L501.67366, L506.1000, L503.6550, L801.1541, L500.4100, L506.0400, L101.9900, L504.2610, L501.9310, L501.5101, L501.9186, L801.1543, L100.0100, L501.9520, L503.6030, L501.9985, L3400.1350, L3250.0100, L3100.7870, L803.0600, L3300.7100, L500.4050, L3300.0100, L3300.6900, L3300.1900, L300.4700, L501.1400 #### [facility] [address] [place], [address] L501.5101on 12-14-2023 GGTP 8 IU/L Normal 0-60 [facility] Comment on above: Order Comment: Test( s) 656616-Setuhpc T3, Serumwas developed and its performance characteristicsdetermined by [employer]. It has not been cleared or approvedby the Food and Drug Administration.N Performed By: #### L 801.2650, L501.24859, L506.1000, L503.6550, L801.1541, L500.4100, L506.0400, L101.9900, L504.2610, L501.9310, L501.5101, L501.9186, L801.1543, L100.0100, L501.9520, L503.6030, L501.9985, L3400.1350, L3250.0100, L3100.7870, L803.0600, L3300.7100, L500.4050, L3300.0100, L3300.6900, L3300.1900, L300.4700, L501.1400 #### [facility] [address] [facility]. [place], [place], [address] L801.2650on 12-14-2023 T3UP 30 Normal 24-39 [facility] Comment on above: Order Comment: Test( s) 068369-Tuswjok T3, Serumwas developed and its performance characteristicsdetermined by [employer]. It has not been cleared or approvedby the Food and Drug Administration.N Performed By: #### L 801.2650, L501.69428, L506.1000, L503.6550, L801.1541, L500.4100, L506.0400, L101.9900, L504.2610, L501.9310, L501.5101, L501.9186, L801.1543, L100.0100, L501.9520, L503.6030, L501.9985, L3400.1350, L3250.0100, L3100.7870, L803.0600, L3300.7100, L500.4050, L3300.0100, L3300.6900, L3300.1900, L300.4700, L501.1400 #### [facility] [address] [facility] [place], [address] T3 Reverseon 12-14-2023 T3 REVERSE 15.2 ng/dL Normal 9.2-24.1 [facility] Comment on above: Order Comment: Test( s) 584862-Vvdrnuk T3, Serumwas developed and its performance characteristicsdetermined by [employer]. It has not been cleared or approvedby the Food and Drug Administration.N Performed By: #### L 801.2650, L501.93684, L506.1000, L503.6550, L801.1541, L500.4100, L506.0400, L101.9900, L504.2610, L501.9310, L501.5101, L501.9186, L801.1543, L100.0100, L501.9520, L503.6030, L501.9985, L3400.1350, L3250.0100, L3100.7870, L803.0600, L3300.7100, L500.4050, L3300.0100, L3300.6900, L3300.1900, L300.4700, L501.1400 #### [facility] [address] [facility] [place], [address] Thyroglobulin Antibodyon TG AB < 1.0 Normal 0.0-0.9 [facility] Comment on above: Order Comment: Test( s) 772479-Ynlsrya T3, Serumwas developed and its performance characteristicsdetermined by [employer]. It has not been cleared or approvedby the Food and Drug Administration.N Result Comment: Thyr oglobulin Antibody measured by [employer] It should be noted that the presence of thyroglobulin antibodies may not be pathogenic nor diagnostic, especially at very low levels. The assay rubber block layer has found that four percent of individuals without evidence of thyroid disease or autoimmunity will have positive TgAb levels up to 4 IU/mL. Performed By: #### L 801.2650, L501.68600, L506.1000, L503.6550, L801.1541, L500.4100, L506.0400, L101.9900, L504.2610, L501.9310, L501.5101, L501.9186, L801.1543, L100.0100, L501.9520, L503.6030, L501.9985, L3400.1350, L3250.0100, L3100.7870, L803.0600, L3300.7100, L500.4050, L3300.0100, L3300.6900, L3300.1900, L300.4700, L501.1400 #### [facility] [address] [place], [address] Thyroid Peroxidase ABon 11-26 THYR PEROX AB 31 IU/mL Normal 0-34 [facility] Comment on above: Order Comment: Test( s) 461290-Wjlojty T3, Serumwas developed and its performance characteristicsdetermined by [employer]. It has not been cleared or approvedby the Food and Drug Administration.N Result Comment: Perf ormed at: [address] [id number] [employer] T[employer]: Ortiz Hayden PhD, Phone: [phone] Performed at: [address] [id number] [employer]: Neda Sousa MD, Phone: [phone] Performed By: #### L 801.2650, L501.18983, L506.1000, L503.6550, L801.1541, L500.4100, L506.0400, L101.9900, L504.2610, L501.9310, L501.5101, L501.9186, L801.1543, L100.0100, L501.9520, L503.6030, L501.9985, L3400.1350, L3250.0100, L3100.7870, L803.0600, L3300.7100, L500.4050, L3300.0100, L3300.6900, L3300.1900, L300.4700, L501.1400 #### [facility] [address] [place], [address] [facility] n 12-12-2023 [facility] LAB TEST Normal [facility] Comment on above: Order Comment: [id number] VEGF PLASMA [id number] VEGF PLASMA FREEZE Result Comment: TEST RESULTS LIMITS VEGF, Plasma, 62 pg/mL 0-115 [employer] Quantikine Enzyme Immunoassay (EIA) Values obtained with different assay methods or kits cannot be used interchangeably. Results cannot be interpreted as absolute evidence of the presence or absence of malignant disease. TESTING PERFORMED AT [facility]. ORIGINAL REPORT ON FILE IN LAB CONTAINS ADDITIONAL TEST SITE INFORMATION. Performed By: #### L 801.2650, L501.65691, L506.1000, L503.6550, L801.1541, L500.4100, L506.0400, L101.9900, L504.2610, L501.9310, L501.5101, L501.9186, L801.1543, L100.0100, L501.9520, L503.6030, L501.9985, L3400.1350, L3250.0100, L3100.7870, L803.0600, L3300.7100, L500.4050, L3300.0100, L3300.6900, L3300.1900, L300.4700, L501.1400 #### [facility] [place], [address] Miscellaneous Lab Procedure 2on 12-12-2023 [facility] LAB TEST 2 Normal [facility] Comment on above: Order Comment: [id number] GALECTIN 3 SERUM [id number] GALECTIN 3 SERUM RMT Result Comment: TEST RESULTS LIMITS Galectin-3 10.2 ng/mL <22.2 Reference range of <22.2 ng/mL applies to population without known heart disease. Galectin-3 is NOT a marker of cardiac distress or decompensation. Galectin-3 is a marker of fibrosis and adverse remodeling resulting in a more progressive form of chronic heart failure. [facility] Galectin-3 assay results should be interpreted in conjunction with clinical evaluation as an aid in assessing the prognosis of patients diagnosed with chronic heart failure. * Galectin-3 levels less than or equal to 17.8 ng/mL - LOWER risk of adverse outcomes including mortality or hospitalization. * Galectin-3 levels greater than 17.8 ng/mL - HIGHER risk of adverse outcomes including mortality or hospitalization. * Galectin-3 levels between 17.8 ng/mL and 25.9 ng/mL should be interpreted with caution because these values lie within the reference range. Additional Considerations - Approximately 30% of NYHA class II/III outpatient population were found to have elevated galectin-3 levels (>17.8 ng/mL). [1] - Elevated galectin-3 is found in similar percentages of patients with systolic dysfunction and preserved ejection fraction. [1] - Galectin-3 shows modest correlations with clinical variables, including Age (slightly higher levels in older subjects), Gender (women have slightly higher values) certain co-morbidities (diabetes and atrial fibrillation), and NYHA classification. [2] - Once elevated galectin-3 levels are generally stable over time. [2] - Drugs effective in the management of patients with heart failure often fail to reduce levels of galectin-3 and galectin-3 levels should not be used to guide therapy. * Galectin-3 testing was cleared by the FDA for use in patients with chronic heart failure only. [1] (1) BG Galectin-3 Product Label (2) Montes R; Maryuri Cardona; Jacque T, et al. Value of Plasma Galectin-3 levels in Heart Failure with Reduced and Preserved Ejection Fraction. [employer], 2011; 43(1):60-68. TESTING PERFORMED AT [facility]. ORIGINAL REPORT ON FILE IN LAB CONTAINS ADDITIONAL TEST SITE INFORMATION. Performed By: #### L 801.2650, L501.45782, L506.1000, L503.6550, L801.1541, L500.4100, L506.0400, L101.9900, L504.2610, L501.9310, L501.5101, L501.9186, L801.1543, L100.0100, L501.9520, L503.6030, L501.9985, L3400.1350, L3250.0100, L3100.7870, L803.0600, L3300.7100, L500.4050, L3300.0100, L3300.6900, L3300.1900, L300.4700, L501.1400 #### [facility] [address] [place], [place], [id number] CRP, High Sensitivity [id number] on 12-09-2023 CRP, HIGH SENS 0.19 mg/L Normal 0.00-3.00 [facility] Comment on above: Result Comment: Rela tive Risk for Future Cardiovascular Event Low <1.00 Average 1.00 - 3.00 High >3.00 Performed By: #### L 801.2650, L501.08525, L506.1000, L503.6550, L801.1541, L500.4100, L506.0400, L101.9900, L504.2610, L501.9310, L501.5101, L501.9186, L801.1543, L100.0100, L501.9520, L503.6030, L501.9985, L3400.1350, L3250.0100, L3100.7870, L803.0600, L3300.7100, L500.4050, L3300.0100, L3300.6900, L3300.1900, L300.4700, L501.1400 #### [facility] [address] [facility]. [place], [place], [id number] L803.0600on 12-09-2023 HOMOCYSTEINE 7.1 umol/L Normal 0.0-14.5 [facility] Comment on above: Result Comment: Perf ormed at: - [facility] [id number] [employer]: Ortiz Hayden PhD, Phone: [phone] Performed By: #### L 801.2650, L501.56133, L506.1000, L503.6550, L801.1541, L500.4100, L506.0400, L101.9900, L504.2610, L501.9310, L501.5101, L501.9186, L801.1543, L100.0100, L501.9520, L503.6030, L501.9985, L3400.1350, L3250.0100, L3100.7870, L803.0600, L3300.7100, L500.4050, L3300.0100, L3300.6900, L3300.1900, L300.4700, L501.1400 #### [facility] [address] [facility] [place], [place], [address] CBC W/Diff, Automatedon 11-26 Absolute Lymph 1.15 X10 3/uL Normal 0.83-4.51 [facility] Comment on above: Performed By: #### L 801.2650, L501.77325, L506.1000, L503.6550, L801.1541, L500.4100, L506.0400, L101.9900, L504.2610, L501.9310, L501.5101, L501.9186, L801.1543, L100.0100, L501.9520, L503.6030, L501.9985, L3400.1350, L3250.0100, L3100.7870, L803.0600, L3300.7100, L500.4050, L3300.0100, L3300.6900, L3300.1900, L300.4700, L501.1400 #### [facility] [address] [place], [address] (574) Absolute Neut 1.8 X10 3/uL Low 2.0-7.7 [facility] Comment on above: Performed By: #### L 801.2650, L501.65206, L506.1000, L503.6550, L801.1541, L500.4100, L506.0400, L101.9900, L504.2610, L501.9310, L501.5101, L501.9186, L801.1543, L100.0100, L501.9520, L503.6030, L501.9985, L3400.1350, L3250.0100, L3100.7870, L803.0600, L3300.7100, L500.4050, L3300.0100, L3300.6900, L3300.1900, L300.4700, L501.1400 #### [facility] [address] [place], [address] (961) Basophils/100 WBC (Bld) 0.6 % Normal 0-1 [facility] Comment on above: Performed By: #### L 801.2650, L501.10476, L506.1000, L503.6550, L801.1541, L500.4100, L506.0400, L101.9900, L504.2610, L501.9310, L501.5101, L501.9186, L801.1543, L100.0100, L501.9520, L503.6030, L501.9985, L3400.1350, L3250.0100, L3100.7870, L803.0600, L3300.7100, L500.4050, L3300.0100, L3300.6900, L3300.1900, L300.4700, L501.1400 #### [facility] [address] [facility] [place], [address] (269) Eosinophils/100 WBC (Bld) 3.4 % Normal 0-5 [facility] Comment on above: Performed By: #### L 801.2650, L501.64190, L506.1000, L503.6550, L801.1541, L500.4100, L506.0400, L101.9900, L504.2610, L501.9310, L501.5101, L501.9186, L801.1543, L100.0100, L501.9520, L503.6030, L501.9985, L3400.1350, L3250.0100, L3100.7870, L803.0600, L3300.7100, L500.4050, L3300.0100, L3300.6900, L3300.1900, L300.4700, L501.1400 #### [facility] [address] [facility] [place], [address] Erythrocyte distribution width (RBC) [Ratio] 18.1 % High 11.6-14.6 [facility] Comment on above: Performed By: #### L 801.2650, L501.95499, L506.1000, L503.6550, L801.1541, L500.4100, L506.0400, L101.9900, L504.2610, L501.9310, L501.5101, L501.9186, L801.1543, L100.0100, L501.9520, L503.6030, L501.9985, L3400.1350, L3250.0100, L3100.7870, L803.0600, L3300.7100, L500.4050, L3300.0100, L3300.6900, L3300.1900, L300.4700, L501.1400 #### [facility] [address] [facility] [place], [place], [id number] Hematocrit (Bld) [Volume fraction] 32.8 % Low 37-47 [facility] Comment on above: Performed By: #### L 801.2650, L501.87040, L506.1000, L503.6550, L801.1541, L500.4100, L506.0400, L101.9900, L504.2610, L501.9310, L501.5101, L501.9186, L801.1543, L100.0100, L501.9520, L503.6030, L501.9985, L3400.1350, L3250.0100, L3100.7870, L803.0600, L3300.7100, L500.4050, L3300.0100, L3300.6900, L3300.1900, L300.4700, L501.1400 #### [facility] [address] [place], [place], [id number] Hemoglobin (Bld) [Mass/Vol] 10.6 g/dL Low 12.0-15.0 [facility] Comment on above: Performed By: #### L 801.2650, L501.85332, L506.1000, L503.6550, L801.1541, L500.4100, L506.0400, L101.9900, L504.2610, L501.9310, L501.5101, L501.9186, L801.1543, L100.0100, L501.9520, L503.6030, L501.9985, L3400.1350, L3250.0100, L3100.7870, L803.0600, L3300.7100, L500.4050, L3300.0100, L3300.6900, L3300.1900, L300.4700, L501.1400 #### [facility] [address] [facility] [place], [place], [id number] (985) IG% 0.300 Normal 0.0-0.9 [facility] Comment on above: Result Comment: IG% - Immature Granulocytes (promyelocytes, myelocytes and metamyelocytes) > 1% indicates that a LEFT SHIFT is Present. Performed By: #### L 801.2650, L501.72589, L506.1000, L503.6550, L801.1541, L500.4100, L506.0400, L101.9900, L504.2610, L501.9310, L501.5101, L501.9186, L801.1543, L100.0100, L501.9520, L503.6030, L501.9985, L3400.1350, L3250.0100, L3100.7870, L803.0600, L3300.7100, L500.4050, L3300.0100, L3300.6900, L3300.1900, L300.4700, L501.1400 #### [facility] [address] [place], [place], [id number] Lymphocytes/100 WBC (Bld) 33.0 % Normal 19-41 [facility] Comment on above: Performed By: #### L 801.2650, L501.11276, L506.1000, L503.6550, L801.1541, L500.4100, L506.0400, L101.9900, L504.2610, L501.9310, L501.5101, L501.9186, L801.1543, L100.0100, L501.9520, L503.6030, L501.9985, L3400.1350, L3250.0100, L3100.7870, L803.0600, L3300.7100, L500.4050, L3300.0100, L3300.6900, L3300.1900, L300.4700, L501.1400 #### [facility] [address] [facility] [place], [place], [id number] MCH (RBC) [Entitic mass] 29.1 pg Normal 27.0-32.0 [facility] Comment on above: Performed By: #### L 801.2650, L501.22859, L506.1000, L503.6550, L801.1541, L500.4100, L506.0400, L101.9900, L504.2610, L501.9310, L501.5101, L501.9186, L801.1543, L100.0100, L501.9520, L503.6030, L501.9985, L3400.1350, L3250.0100, L3100.7870, L803.0600, L3300.7100, L500.4050, L3300.0100, L3300.6900, L3300.1900, L300.4700, L501.1400 #### [facility] [address] [place], [place], [id number] MCHC (RBC) [Mass/Vol] 32.3 g/dL Normal 32-36 [facility] Comment on above: Performed By: #### L 801.2650, L501.95396, L506.1000, L503.6550, L801.1541, L500.4100, L506.0400, L101.9900, L504.2610, L501.9310, L501.5101, L501.9186, L801.1543, L100.0100, L501.9520, L503.6030, L501.9985, L3400.1350, L3250.0100, L3100.7870, L803.0600, L3300.7100, L500.4050, L3300.0100, L3300.6900, L3300.1900, L300.4700, L501.1400 #### [facility] [address] [place], [place], [id number] MCV (RBC) [Entitic vol] 90.1 fL Normal 81-99 [facility] Comment on above: Performed By: #### L 801.2650, L501.95240, L506.1000, L503.6550, L801.1541, L500.4100, L506.0400, L101.9900, L504.2610, L501.9310, L501.5101, L501.9186, L801.1543, L100.0100, L501.9520, L503.6030, L501.9985, L3400.1350, L3250.0100, L3100.7870, L803.0600, L3300.7100, L500.4050, L3300.0100, L3300.6900, L3300.1900, L300.4700, L501.1400 #### [facility] [address] [place], [place], [id number] Monocytes/100 WBC (Bld) 11.2 % High 0-10 [facility] Comment on above: Performed By: #### L 801.2650, L501.85498, L506.1000, L503.6550, L801.1541, L500.4100, L506.0400, L101.9900, L504.2610, L501.9310, L501.5101, L501.9186, L801.1543, L100.0100, L501.9520, L503.6030, L501.9985, L3400.1350, L3250.0100, L3100.7870, L803.0600, L3300.7100, L500.4050, L3300.0100, L3300.6900, L3300.1900, L300.4700, L501.1400 #### [facility] [address] [facility] [place], [place], [id number] Neutrophils/100 WBC (Bld) 51.5 % Normal 47-70 [facility] Comment on above: Performed By: #### L 801.2650, L501.65162, L506.1000, L503.6550, L801.1541, L500.4100, L506.0400, L101.9900, L504.2610, L501.9310, L501.5101, L501.9186, L801.1543, L100.0100, L501.9520, L503.6030, L501.9985, L3400.1350, L3250.0100, L3100.7870, L803.0600, L3300.7100, L500.4050, L3300.0100, L3300.6900, L3300.1900, L300.4700, L501.1400 #### [facility] [address] [facility] [place], [place], [id number] Nucleated RBC (Bld) [#/Vol] 0 10*3/uL Normal 0-5 [facility] Comment on above: Performed By: #### L 801.2650, L501.69698, L506.1000, L503.6550, L801.1541, L500.4100, L506.0400, L101.9900, L504.2610, L501.9310, L501.5101, L501.9186, L801.1543, L100.0100, L501.9520, L503.6030, L501.9985, L3400.1350, L3250.0100, L3100.7870, L803.0600, L3300.7100, L500.4050, L3300.0100, L3300.6900, L3300.1900, L300.4700, L501.1400 #### [facility] [address] [place], [place], [address] Platelet mean volume (Bld) [Entitic vol] 10.4 fL Normal 6.2-12.0 [facility] Comment on above: Performed By: #### L 801.2650, L501.85120, L506.1000, L503.6550, L801.1541, L500.4100, L506.0400, L101.9900, L504.2610, L501.9310, L501.5101, L501.9186, L801.1543, L100.0100, L501.9520, L503.6030, L501.9985, L3400.1350, L3250.0100, L3100.7870, L803.0600, L3300.7100, L500.4050, L3300.0100, L3300.6900, L3300.1900, L300.4700, L501.1400 #### [facility] [address] [place], [address] Platelets (Bld) [#/Vol] 283 10*3/uL Normal 150-450 [facility] Comment on above: Performed By: #### L 801.2650, L501.31915, L506.1000, L503.6550, L801.1541, L500.4100, L506.0400, L101.9900, L504.2610, L501.9310, L501.5101, L501.9186, L801.1543, L100.0100, L501.9520, L503.6030, L501.9985, L3400.1350, L3250.0100, L3100.7870, L803.0600, L3300.7100, L500.4050, L3300.0100, L3300.6900, L3300.1900, L300.4700, L501.1400 #### [facility] [address] [place], [address] (874) RBC (Bld) [#/Vol] 3.64 10*6/uL Low 4.2-5.4 [facility] Comment on above: Performed By: #### L 801.2650, L501.80208, L506.1000, L503.6550, L801.1541, L500.4100, L506.0400, L101.9900, L504.2610, L501.9310, L501.5101, L501.9186, L801.1543, L100.0100, L501.9520, L503.6030, L501.9985, L3400.1350, L3250.0100, L3100.7870, L803.0600, L3300.7100, L500.4050, L3300.0100, L3300.6900, L3300.1900, L300.4700, L501.1400 #### [facility] [address] [place], [address] RDW SD 59.5 fl High 35.1-43.9 [facility] Comment on above: Performed By: #### L 801.2650, L501.33708, L506.1000, L503.6550, L801.1541, L500.4100, L506.0400, L101.9900, L504.2610, L501.9310, L501.5101, L501.9186, L801.1543, L100.0100, L501.9520, L503.6030, L501.9985, L3400.1350, L3250.0100, L3100.7870, L803.0600, L3300.7100, L500.4050, L3300.0100, L3300.6900, L3300.1900, L300.4700, L501.1400 #### [facility] [address] [place], [address] (350) WBC (Bld) [#/Vol] 3.5 10*3/uL Low 4.4-11.0 [facility] Comment on above: Performed By: #### L 801.2650, L501.56182, L506.1000, L503.6550, L801.1541, L500.4100, L506.0400, L101.9900, L504.2610, L501.9310, L501.5101, L501.9186, L801.1543, L100.0100, L501.9520, L503.6030, L501.9985, L3400.1350, L3250.0100, L3100.7870, L803.0600, L3300.7100, L500.4050, L3300.0100, L3300.6900, L3300.1900, L300.4700, L501.1400 #### [facility] [address] [facility] [place], [address] Comprehensive Metabolic Prof [facility] 12-08-2023 Albumin [Mass/Vol] 3.2 g/dL Normal 3.2-5.0 [facility] Comment on above: Order Comment: 1 Performed By: #### L 801.2650, L501.37481, L506.1000, L503.6550, L801.1541, L500.4100, L506.0400, L101.9900, L504.2610, L501.9310, L501.5101, L501.9186, L801.1543, L100.0100, L501.9520, L503.6030, L501.9985, L3400.1350, L3250.0100, L3100.7870, L803.0600, L3300.7100, L500.4050, L3300.0100, L3300.6900, L3300.1900, L300.4700, L501.1400 #### [facility] [address] [facility] [facility] [address] [place], [address] Albumin/Globulin [Mass ratio] 1.1 {ratio} Normal 0.9-2.4 [facility] Comment on above: Order Comment: 1 Performed By: #### L 801.2650, L501.27619, L506.1000, L503.6550, L801.1541, L500.4100, L506.0400, L101.9900, L504.2610, L501.9310, L501.5101, L501.9186, L801.1543, L100.0100, L501.9520, L503.6030, L501.9985, L3400.1350, L3250.0100, L3100.7870, L803.0600, L3300.7100, L500.4050, L3300.0100, L3300.6900, L3300.1900, L300.4700, L501.1400 #### [facility] [address] [place], [address] ALK P 86 U/L Normal 45-117 [facility] Comment on above: Order Comment: 1 Performed By: #### L 801.2650, L501.20558, L506.1000, L503.6550, L801.1541, L500.4100, L506.0400, L101.9900, L504.2610, L501.9310, L501.5101, L501.9186, L801.1543, L100.0100, L501.9520, L503.6030, L501.9985, L3400.1350, L3250.0100, L3100.7870, L803.0600, L3300.7100, L500.4050, L3300.0100, L3300.6900, L3300.1900, L300.4700, L501.1400 #### [facility] [address] [facility] [place], [address] ALT [Catalytic activity/Vol] 27 U/L Normal 13-56 [facility] Comment on above: Order Comment: 1 Performed By: #### L 801.2650, L501.02341, L506.1000, L503.6550, L801.1541, L500.4100, L506.0400, L101.9900, L504.2610, L501.9310, L501.5101, L501.9186, L801.1543, L100.0100, L501.9520, L503.6030, L501.9985, L3400.1350, L3250.0100, L3100.7870, L803.0600, L3300.7100, L500.4050, L3300.0100, L3300.6900, L3300.1900, L300.4700, L501.1400 #### [facility] [address] [facility] [facility] [address] [place], [address] AST [Catalytic activity/Vol] 16 U/L Normal 15-37 [facility] Comment on above: Order Comment: 1 Performed By: #### L 801.2650, L501.97504, L506.1000, L503.6550, L801.1541, L500.4100, L506.0400, L101.9900, L504.2610, L501.9310, L501.5101, L501.9186, L801.1543, L100.0100, L501.9520, L503.6030, L501.9985, L3400.1350, L3250.0100, L3100.7870, L803.0600, L3300.7100, L500.4050, L3300.0100, L3300.6900, L3300.1900, L300.4700, L501.1400 #### [facility] [address] [place], [address] Bilirubin [Mass/Vol] 0.30 mg/dL Normal 0.20-1.00 [facility] Comment on above: Order Comment: 1 Result Comment: For patients on eltrombopag therapy, use of [place] TBIL is not recommended. Performed By: #### L 801.2650, L501.08634, L506.1000, L503.6550, L801.1541, L500.4100, L506.0400, L101.9900, L504.2610, L501.9310, L501.5101, L501.9186, L801.1543, L100.0100, L501.9520, L503.6030, L501.9985, L3400.1350, L3250.0100, L3100.7870, L803.0600, L3300.7100, L500.4050, L3300.0100, L3300.6900, L3300.1900, L300.4700, L501.1400 #### [facility] [address] [place], [place], [id number] BUN/CRE 33.6 RATIO High 10-20 [facility] Comment on above: Order Comment: 1 Performed By: #### L 801.2650, L501.80171, L506.1000, L503.6550, L801.1541, L500.4100, L506.0400, L101.9900, L504.2610, L501.9310, L501.5101, L501.9186, L801.1543, L100.0100, L501.9520, L503.6030, L501.9985, L3400.1350, L3250.0100, L3100.7870, L803.0600, L3300.7100, L500.4050, L3300.0100, L3300.6900, L3300.1900, L300.4700, L501.1400 #### [facility] [address] [place], [address] CA,Total 9.5 mg/dL Normal 8.5-10.1 [facility] Comment on above: Order Comment: 1 Performed By: #### L 801.2650, L501.26479, L506.1000, L503.6550, L801.1541, L500.4100, L506.0400, L101.9900, L504.2610, L501.9310, L501.5101, L501.9186, L801.1543, L100.0100, L501.9520, L503.6030, L501.9985, L3400.1350, L3250.0100, L3100.7870, L803.0600, L3300.7100, L500.4050, L3300.0100, L3300.6900, L3300.1900, L300.4700, L501.1400 #### [facility] [address] [place], [place], [id number] Chloride [Moles/Vol] 105 mmol/L Normal 98-107 [facility] Comment on above: Order Comment: 1 Performed By: #### L 801.2650, L501.44707, L506.1000, L503.6550, L801.1541, L500.4100, L506.0400, L101.9900, L504.2610, L501.9310, L501.5101, L501.9186, L801.1543, L100.0100, L501.9520, L503.6030, L501.9985, L3400.1350, L3250.0100, L3100.7870, L803.0600, L3300.7100, L500.4050, L3300.0100, L3300.6900, L3300.1900, L300.4700, L501.1400 #### [facility] [address] [place], [place], [id number] CO2 [Moles/Vol] 27.0 mmol/L Normal 21.0-32.0 [facility] Comment on above: Order Comment: 1 Performed By: #### L 801.2650, L501.87751, L506.1000, L503.6550, L801.1541, L500.4100, L506.0400, L101.9900, L504.2610, L501.9310, L501.5101, L501.9186, L801.1543, L100.0100, L501.9520, L503.6030, L501.9985, L3400.1350, L3250.0100, L3100.7870, L803.0600, L3300.7100, L500.4050, L3300.0100, L3300.6900, L3300.1900, L300.4700, L501.1400 #### [facility] [address] [facility] [address] [place], [address] Creatinine [Mass/Vol] 0.62 mg/dL Normal 0.55-1.02 [facility] Comment on above: Order Comment: 1 Result Comment: The validity of the calculated GFR GFRAA in patients over 70 years has not been determined. Clinical correlation is essential. Performed By: #### L 801.2650, L501.91028, L506.1000, L503.6550, L801.1541, L500.4100, L506.0400, L101.9900, L504.2610, L501.9310, L501.5101, L501.9186, L801.1543, L100.0100, L501.9520, L503.6030, L501.9985, L3400.1350, L3250.0100, L3100.7870, L803.0600, L3300.7100, L500.4050, L3300.0100, L3300.6900, L3300.1900, L300.4700, L501.1400 #### [facility] [address] [place], [place], [id number] EST GFR - AA 126 mL/min Normal >60 [facility] Comment on above: Order Comment: 1 Result Comment: Afri can [place] GFR Calc Performed By: #### L 801.2650, L501.55439, L506.1000, L503.6550, L801.1541, L500.4100, L506.0400, L101.9900, L504.2610, L501.9310, L501.5101, L501.9186, L801.1543, L100.0100, L501.9520, L503.6030, L501.9985, L3400.1350, L3250.0100, L3100.7870, L803.0600, L3300.7100, L500.4050, L3300.0100, L3300.6900, L3300.1900, L300.4700, L501.1400 #### [facility] [address] [facility] [address] [place], [address] GAP 6 Normal 5-15 [facility] Comment on above: Order Comment: 1 Performed By: #### L 801.2650, L501.43055, L506.1000, L503.6550, L801.1541, L500.4100, L506.0400, L101.9900, L504.2610, L501.9310, L501.5101, L501.9186, L801.1543, L100.0100, L501.9520, L503.6030, L501.9985, L3400.1350, L3250.0100, L3100.7870, L803.0600, L3300.7100, L500.4050, L3300.0100, L3300.6900, L3300.1900, L300.4700, L501.1400 #### [facility] [address] [facility] [place], [address] GFR/1.73 sq M.predicted among non-blacks MDRD (S/P/Bld) [Vol rate/Area] 104 mL/min/{1.73_m2} Normal >60 [facility] Comment on above: Order Comment: 1 Result Comment: Non- GFR Calc Performed By: #### L 801.2650, L501.51754, L506.1000, L503.6550, L801.1541, L500.4100, L506.0400, L101.9900, L504.2610, L501.9310, L501.5101, L501.9186, L801.1543, L100.0100, L501.9520, L503.6030, L501.9985, L3400.1350, L3250.0100, L3100.7870, L803.0600, L3300.7100, L500.4050, L3300.0100, L3300.6900, L3300.1900, L300.4700, L501.1400 #### [facility] [address] [facility] [facility] [place], [place], [address] (906) Globulin (S) [Mass/Vol] 2.9 g/dL Normal 2.2-4.2 [facility] Comment on above: Order Comment: 1 Performed By: #### L 801.2650, L501.51174, L506.1000, L503.6550, L801.1541, L500.4100, L506.0400, L101.9900, L504.2610, L501.9310, L501.5101, L501.9186, L801.1543, L100.0100, L501.9520, L503.6030, L501.9985, L3400.1350, L3250.0100, L3100.7870, L803.0600, L3300.7100, L500.4050, L3300.0100, L3300.6900, L3300.1900, L300.4700, L501.1400 #### [facility] [address] [facility] [place], [place], [address] Glucose [Mass/Vol] 91 mg/dL Normal 74-106 [facility] Comment on above: Order Comment: 1 Performed By: #### L 801.2650, L501.04990, L506.1000, L503.6550, L801.1541, L500.4100, L506.0400, L101.9900, L504.2610, L501.9310, L501.5101, L501.9186, L801.1543, L100.0100, L501.9520, L503.6030, L501.9985, L3400.1350, L3250.0100, L3100.7870, L803.0600, L3300.7100, L500.4050, L3300.0100, L3300.6900, L3300.1900, L300.4700, L501.1400 #### [facility] [address] [facility] [place], [place], [id number] Potassium [Moles/Vol] 3.5 mmol/L Normal 3.5-5.1 [facility] Comment on above: Order Comment: 1 Performed By: #### L 801.2650, L501.18165, L506.1000, L503.6550, L801.1541, L500.4100, L506.0400, L101.9900, L504.2610, L501.9310, L501.5101, L501.9186, L801.1543, L100.0100, L501.9520, L503.6030, L501.9985, L3400.1350, L3250.0100, L3100.7870, L803.0600, L3300.7100, L500.4050, L3300.0100, L3300.6900, L3300.1900, L300.4700, L501.1400 #### [facility] [address] [facility] [place], [place], [address] Sodium [Moles/Vol] 138 mmol/L Normal 136-145 [facility] Comment on above: Order Comment: 1 Performed By: #### L 801.2650, L501.15905, L506.1000, L503.6550, L801.1541, L500.4100, L506.0400, L101.9900, L504.2610, L501.9310, L501.5101, L501.9186, L801.1543, L100.0100, L501.9520, L503.6030, L501.9985, L3400.1350, L3250.0100, L3100.7870, L803.0600, L3300.7100, L500.4050, L3300.0100, L3300.6900, L3300.1900, L300.4700, L501.1400 #### [facility] [address] [place], [address] T PROT 6.1 g/dL Low 6.4-8.2 [facility] Comment on above: Order Comment: 1 Performed By: #### L 801.2650, L501.51442, L506.1000, L503.6550, L801.1541, L500.4100, L506.0400, L101.9900, L504.2610, L501.9310, L501.5101, L501.9186, L801.1543, L100.0100, L501.9520, L503.6030, L501.9985, L3400.1350, L3250.0100, L3100.7870, L803.0600, L3300.7100, L500.4050, L3300.0100, L3300.6900, L3300.1900, L300.4700, L501.1400 #### [facility] [address] [facility] [place], [place], [id number] Urea nitrogen [Mass/Vol] 21 mg/dL High 7-18 [facility] Comment on above: Order Comment: 1 Performed By: #### L 801.2650, L501.22394, L506.1000, L503.6550, L801.1541, L500.4100, L506.0400, L101.9900, L504.2610, L501.9310, L501.5101, L501.9186, L801.1543, L100.0100, L501.9520, L503.6030, L501.9985, L3400.1350, L3250.0100, L3100.7870, L803.0600, L3300.7100, L500.4050, L3300.0100, L3300.6900, L3300.1900, L300.4700, L501.1400 #### [facility] [address] [place], [address] Erythrocyte Sed Rateon 12-07 SED RATE 3 mm/hr Normal 0-30 [facility] Comment on above: Performed By: #### L 801.2650, L501.61447, L506.1000, L503.6550, L801.1541, L500.4100, L506.0400, L101.9900, L504.2610, L501.9310, L501.5101, L501.9186, L801.1543, L100.0100, L501.9520, L503.6030, L501.9985, L3400.1350, L3250.0100, L3100.7870, L803.0600, L3300.7100, L500.4050, L3300.0100, L3300.6900, L3300.1900, L300.4700, L501.1400 #### [facility] [address] [place], [address] Fibrinogenon 12-08-2023 FIBRINOGEN 236 mg/dl Normal 203-444 [facility] Comment on above: Performed By: #### L 801.2650, L501.81004, L506.1000, L503.6550, L801.1541, L500.4100, L506.0400, L101.9900, L504.2610, L501.9310, L501.5101, L501.9186, L801.1543, L100.0100, L501.9520, L503.6030, L501.9985, L3400.1350, L3250.0100, L3100.7870, L803.0600, L3300.7100, L500.4050, L3300.0100, L3300.6900, L3300.1900, L300.4700, L501.1400 #### [facility] [address] [place], [place], [id number] Free T3on 12-08-2023 Free T3 [Mass/Vol] 1.3 pg/mL Low 2.18-3.98 [facility] Comment on above: Order Comment: 1 Performed By: #### L 801.2650, L501.85544, L506.1000, L503.6550, L801.1541, L500.4100, L506.0400, L101.9900, L504.2610, L501.9310, L501.5101, L501.9186, L801.1543, L100.0100, L501.9520, L503.6030, L501.9985, L3400.1350, L3250.0100, L3100.7870, L803.0600, L3300.7100, L500.4050, L3300.0100, L3300.6900, L3300.1900, L300.4700, L501.1400 #### [facility] [address] [place], [place], [id number] Iron+Iron Binding Capacityon 12-08-2023 Iron [Mass/Vol] 25 ug/dL Low 50-170 [facility] Comment on above: Order Comment: 1 Performed By: #### L 801.2650, L501.24188, L506.1000, L503.6550, L801.1541, L500.4100, L506.0400, L101.9900, L504.2610, L501.9310, L501.5101, L501.9186, L801.1543, L100.0100, L501.9520, L503.6030, L501.9985, L3400.1350, L3250.0100, L3100.7870, L803.0600, L3300.7100, L500.4050, L3300.0100, L3300.6900, L3300.1900, L300.4700, L501.1400 #### [facility] [address] [facility] [place], [address] IRON SATURATION 6.6 Low 15.0-55.0 [facility] Comment on above: Order Comment: 1 Performed By: #### L 801.2650, L501.43409, L506.1000, L503.6550, L801.1541, L500.4100, L506.0400, L101.9900, L504.2610, L501.9310, L501.5101, L501.9186, L801.1543, L100.0100, L501.9520, L503.6030, L501.9985, L3400.1350, L3250.0100, L3100.7870, L803.0600, L3300.7100, L500.4050, L3300.0100, L3300.6900, L3300.1900, L300.4700, L501.1400 #### [facility] [address] [place], [address] TIBC 380 ug/dL Normal 250-450 [facility] Comment on above: Order Comment: 1 Performed By: #### L 801.2650, L501.94788, L506.1000, L503.6550, L801.1541, L500.4100, L506.0400, L101.9900, L504.2610, L501.9310, L501.5101, L501.9186, L801.1543, L100.0100, L501.9520, L503.6030, L501.9985, L3400.1350, L3250.0100, L3100.7870, L803.0600, L3300.7100, L500.4050, L3300.0100, L3300.6900, L3300.1900, L300.4700, L501.1400 #### [facility] [address] [place], [address] LDHon 12-08-2023 LDH 146 U/L Normal 84-246 [facility] Comment on above: Order Comment: 1 Performed By: #### L 801.2650, L501.02807, L506.1000, L503.6550, L801.1541, L500.4100, L506.0400, L101.9900, L504.2610, L501.9310, L501.5101, L501.9186, L801.1543, L100.0100, L501.9520, L503.6030, L501.9985, L3400.1350, L3250.0100, L3100.7870, L803.0600, L3300.7100, L500.4050, L3300.0100, L3300.6900, L3300.1900, L300.4700, L501.1400 #### [facility] [address] [facility] [place], [address] T3 Total - Triiodothyronineo n 12-08-2023 T3 Total 0.62 ng/mL Normal 0.6-1.81 [facility] Comment on above: Performed By: #### L 801.2650, L501.48946, L506.1000, L503.6550, L801.1541, L500.4100, L506.0400, L101.9900, L504.2610, L501.9310, L501.5101, L501.9186, L801.1543, L100.0100, L501.9520, L503.6030, L501.9985, L3400.1350, L3250.0100, L3100.7870, L803.0600, L3300.7100, L500.4050, L3300.0100, L3300.6900, L3300.1900, L300.4700, L501.1400 #### [facility] [address] [facility] [facility]. [place], [place], [id number] T4 Free Directon 12-08-2023 T4 FREE DIRECT 1.02 ng/dL Normal 0.76-1.46 [facility] Comment on above: Order Comment: 1 Performed By: #### L 801.2650, L501.94311, L506.1000, L503.6550, L801.1541, L500.4100, L506.0400, L101.9900, L504.2610, L501.9310, L501.5101, L501.9186, L801.1543, L100.0100, L501.9520, L503.6030, L501.9985, L3400.1350, L3250.0100, L3100.7870, L803.0600, L3300.7100, L500.4050, L3300.0100, L3300.6900, L3300.1900, L300.4700, L501.1400 #### [facility] [address] [facility]. [place], [place], [id number] T4 Total, Thyroxinon 024 T4 [Mass/Vol] 6.9 ug/dL Normal 4.8-13.9 [facility] Comment on above: Order Comment: 1 Performed By: #### L 801.2650, L501.94595, L506.1000, L503.6550, L801.1541, L500.4100, L506.0400, L101.9900, L504.2610, L501.9310, L501.5101, L501.9186, L801.1543, L100.0100, L501.9520, L503.6030, L501.9985, L3400.1350, L3250.0100, L3100.7870, L803.0600, L3300.7100, L500.4050, L3300.0100, L3300.6900, L3300.1900, L300.4700, L501.1400 #### [facility] [address] [facility]. [place], [place], [id number] Thyroid Stim Hormone (TSH)on 12-08-2023 TSH 1.170 uIU/mL Normal 0.358-3.740 [facility] Comment on above: Order Comment: 1 Performed By: #### L 801.2650, L501.90902, L506.1000, L503.6550, L801.1541, L500.4100, L506.0400, L101.9900, L504.2610, L501.9310, L501.5101, L501.9186, L801.1543, L100.0100, L501.9520, L503.6030, L501.9985, L3400.1350, L3250.0100, L3100.7870, L803.0600, L3300.7100, L500.4050, L3300.0100, L3300.6900, L3300.1900, L300.4700, L501.1400 #### [facility] [address] [place], [place], [id number] Vitamin D,25 Hydroxyon 12-07 Vitamin D 25-OH 93.4 ng/mL Normal [facility] Comment on above: Result Comment: Mary min D 25([place]) Status Range Deficiency <20 ng/mL (50nmol/L) Insufficiency 20 - 30 ng/mL (50 - 75 nmol/L) Sufficiency 30 - 100 ng/mL (75 - 250 nmol/L) Toxicity >100 ng/mL (>250 nmol/L) Performed By: #### L 801.2650, L501.03001, L506.1000, L503.6550, L801.1541, L500.4100, L506.0400, L101.9900, L504.2610, L501.9310, L501.5101, L501.9186, L801.1543, L100.0100, L501.9520, L503.6030, L501.9985, L3400.1350, L3250.0100, L3100.7870, L803.0600, L3300.7100, L500.4050, L3300.0100, L3300.6900, L3300.1900, L300.4700, L501.1400 #### [facility] [address] [facility] [place], [place], [id number] GLUCOSE, BLOOD (POC)on 10-02 Glucose [Mass/Vol] 99 mg/dL 74 - 99 mg/dL [facility] Comment on above: Location:[facility], [address] [place] [address], [address] The Accu-Chek Inform II glucose meter has not been approved for testing on patients receiving intensive medical intervention or therapy and results from this point of care glucose test should not be used for patient management decisions in these cases. Inaccurate results may also occur from other interfering factors, such as N-acetylcysteine (blood concentrations of greater than 5mg/dL), galactose, extremes of hematocrit (<10 or >65), or high doses of ascorbic acid (vitamin C) greater than 3mg/dL. Consider alternate testing mechanisms (e.g. core lab, blood gas instrument) in the above situations. [facility] Absolute lymphocyte countOrd ered By: Jc Torres on 06-20-2023 Lymphocytes Auto (Unsp spec) [#/Vol] 1.07 10*3/uL 0.83-4.51 [facility] Automated lymphocyte count a s percentage of total leukocytesOrdered By: Jc Torres on 06-20-2023 Lymphocytes/100 WBC Auto (Unsp spec) 20.8 % 19-41 [facility] Basophil percentageOrdered B y: Jc Torres on 06-20-2023 Basophils/100 WBC (Bld) 1.0 % 0-1 [facility] Bilirubin [Mass/Vol] 0.30 mg/dL 0.20-1.00 [facility] Comment on above: For patients on eltr ombopag therapy, use of [place] TBIL is not recommended. Chloride [Moles/Vol] 107 mmol/L 98-107 [facility] Eosinophils/100 WBC (Bld) 1.9 % 0-5 [facility] Glucose [Mass/Vol] 102 mg/dL 74-106 [facility] Comment on above: Fasting Glucose resu lt from 100 to 125 mg/dL suggests IMPAIRED HOMEOSTASIS per A.D.A. criteria. Hemoglobin (Bld) [Mass/Vol] 10.8 g/dL 12.0-15.0 [facility] Monocytes/100 WBC (Bld) 7.8 % 0-10 [facility] Neutrophils (Bld) [#/Vol] 3.5 10*3/uL 2.0-7.7 [facility] Neutrophils/100 WBC (Bld) 68.5 % 47-70 [facility] Potassium [Moles/Vol] 3.9 mmol/L 3.5-5.1 [facility] Protein [Mass/Vol] 6.2 g/dL 6.4-8.2 [facility] Sodium [Moles/Vol] 139 mmol/L 136-145 [facility] WBC (Bld) [#/Vol] 5.1 10*3/uL 4.4-11.0 [facility] Determination of erythrocyte mean corpuscular volume (MCV)Ordered By: Jc Torres on 06-20-2023 MCV (RBC) [Entitic vol] 87.9 fL 81-99 [facility] Erythrocyte distribution wid th ratioOrdered By: Jc Torres on 06-20-2023 Erythrocyte distribution width (RBC) [Ratio] 19.8 % 11.6-14.6 [facility] Erythrocyte distribution wid th standard deviationOrdered By: Jc Torres on 06-20-2023 Erythrocyte distribution width (RBC) [Entitic vol] 63.5 fL 35.1-43.9 [facility] Hematocrit Auto (Bld) [Volum e fraction]Ordered By: Jc Torres on 06-20-2023 Hematocrit (Bld) [Volume fraction] 33.5 % 37-47 [facility] Immature granulocytes/100 WB C Auto (Bld)Ordered By: Jc Torres on 06-20-2023 Immature granulocytes/100 WBC (Bld) 0.000 % 0.0-0.9 [facility] Comment on above: IG% - Immature Granu locytes (promyelocytes, myelocytes and metamyelocytes) > 1% indicates that a LEFT SHIFT is Present. Laboratory - Chemistry and C hemistry - challengeOrdered By: Jc Torres on 06-20-2023 Albumin/Globulin [Mass ratio] 1.1 {ratio} 0.9-2.4 [facility] ALP [Catalytic activity/Vol] 90 U/L 45-117 [facility] ALT [Catalytic activity/Vol] 27 U/L 13-56 [facility] CO2 [Moles/Vol] 30.0 mmol/L 21.0-32.0 [facility] Globulin (S) [Mass/Vol] 3.0 g/dL 2.2-4.2 [facility] Urea nitrogen/Creatinine [Mass ratio] 41.7 mg/mg 10-20 [facility] Laboratory - Hematology and Cell countsOrdered By: Jc Torres on 06-20-2023 MCH (RBC) [Entitic mass] 28.3 pg 27.0-32.0 [facility] MCHC (RBC) [Mass/Vol] 32.2 g/dL 32-36 [facility] Nucleated RBC/100 WBC (Bld) [Ratio] 0 % 0-5 [facility] Platelet mean volume (Bld) [Entitic vol] 11.4 fL 6.2-12.0 [facility] Platelets (Bld) [#/Vol] 324 10*3/uL 150-450 [facility] No Panel InformationOrdered By: Jc Torres on 06-20-2023 Estimated GFR (MDRD) Amer 99 mL/min >60 [facility] Comment on above: GFR Calc Estimated GFR (MDRD) Non-Af Amer 82 mL/min >60 [facility] Comment on above: Non- GFR Calc RBC Auto (Bld) [#/Vol]Ordere d By: Jc Torres on 06-20-2023 RBC (Bld) [#/Vol] 3.81 10*6/uL 4.2-5.4 [facility] Serum or plasma calcium vickie urement (mass/volume)Ordered By: Jc Torres on 06-20-2023 Calcium [Mass/Vol] 9.7 mg/dL 8.5-10.1 [facility] Serum or plasma creatinine m easurement (mass/volume)Ordered By: Jc Torres on 06-20-2023 Creatinine [Mass/Vol] 0.77 mg/dL 0.55-1.02 [facility] Comment on above: The validity of the calculated GFR & GFRAA in patients over 70 years has not been determined. Clinical correlation is essential. Serum or plasma urea nitroge n measurement (mass/volume)Ordered By: Jc Torres on 06-20-2023 Urea nitrogen [Mass/Vol] 32 mg/dL 7-18 [facility] Thin prep Papanicolaou smear with manual screeningOrdered By: Jc Torres on 06-20-2023 Thin prep Papanicolaou smear with manual screening 3.2 g/dL 3.2-5.0 [facility] Thin prep Papanicolaou smear with manual screening 19 U/L 15-37 [facility] Thin prep Papanicolaou smear with manual screening 2 5-15 [facility] Absolute lymphocyte countOrd ered By: Jc Torres on 06-13-2023 Lymphocytes Auto (Unsp spec) [#/Vol] 1.11 10*3/uL 0.83-4.51 [facility] Automated lymphocyte count a s percentage of total leukocytesOrdered By: Jc Torres on 06-13-2023 Lymphocytes/100 WBC Auto (Unsp spec) 23.8 % 19-41 [facility] Basophil percentageOrdered B y: Jc Torres on 06-13-2023 Basophils/100 WBC (Bld) 0.6 % 0-1 [facility] Bilirubin [Mass/Vol] 0.20 mg/dL 0.20-1.00 [facility] Comment on above: For patients on eltr ombopag therapy, use of [place] TBIL is not recommended. Chloride [Moles/Vol] 108 mmol/L 98-107 [facility] Eosinophils/100 WBC (Bld) 2.6 % 0-5 [facility] Glucose [Mass/Vol] 97 mg/dL 74-106 [facility] Hemoglobin (Bld) [Mass/Vol] 10.8 g/dL 12.0-15.0 [facility] LDH [Catalytic activity/Vol] 185 U/L 84-246 [facility] Monocytes/100 WBC (Bld) 12.0 % 0-10 [facility] Neutrophils (Bld) [#/Vol] 2.8 10*3/uL 2.0-7.7 [facility] Neutrophils/100 WBC (Bld) 60.6 % 47-70 [facility] Potassium [Moles/Vol] 3.7 mmol/L 3.5-5.1 [facility] Protein [Mass/Vol] 6.1 g/dL 6.4-8.2 [facility] Sodium [Moles/Vol] 140 mmol/L 136-145 [facility] WBC (Bld) [#/Vol] 4.7 10*3/uL 4.4-11.0 [facility] Blood manual differential co mment interpretation (narrative result)Ordered By: Jc Torres on 06-13-2023 Manual differential comment Shayne (Bld) [Interp] SCANNED [facility] Determination of erythrocyte mean corpuscular volume (MCV)Ordered By: Jc Torres on 06-13-2023 MCV (RBC) [Entitic vol] 89.0 fL 81-99 [facility] Erythrocyte distribution wid th ratioOrdered By: Jc Torres on 06-13-2023 Erythrocyte distribution width (RBC) [Ratio] 20.4 % 11.6-14.6 [facility] Erythrocyte distribution wid th standard deviationOrdered By: Jc Torres on 06-13-2023 Erythrocyte distribution width (RBC) [Entitic vol] 66.2 fL 35.1-43.9 [facility] Erythrocyte sedimentation ra teOrdered By: Jc Torres on 06-13-2023 ESR (Bld) [Velocity] 10 mm/h 0-30 [facility] Hematocrit Auto (Bld) [Volum e fraction]Ordered By: Jc Trores on 06-13-2023 Hematocrit (Bld) [Volume fraction] 34.1 % 37-47 [facility] Immature granulocytes/100 WB C Auto (Bld)Ordered By: Jc Torres on 06-13-2023 Immature granulocytes/100 WBC (Bld) 0.400 % 0.0-0.9 [facility] Comment on above: IG% - Immature Granu locytes (promyelocytes, myelocytes and metamyelocytes) > 1% indicates that a LEFT SHIFT is Present. Insulin-like growth factor ( IGF) measurementOrdered By: Jc Torres on 06-13-2023 Insulin-like growth factor [Moles/Vol] 186 ng/mL 60-207 [facility] Laboratory - Chemistry and C hemistry - challengeOrdered By: Jc Torres on 06-13-2023 Albumin/Globulin [Mass ratio] 1.0 {ratio} 0.9-2.4 [facility] ALP [Catalytic activity/Vol] 93 U/L 45-117 [facility] ALT [Catalytic activity/Vol] 31 U/L 13-56 [facility] CO2 [Moles/Vol] 28.0 mmol/L 21.0-32.0 [facility] Ferritin [Mass/Vol] 6 ng/mL 8-252 [facility] Globulin (S) [Mass/Vol] 3.1 g/dL 2.2-4.2 [facility] Urea nitrogen/Creatinine [Mass ratio] 40.2 mg/mg 10-20 [facility] Laboratory - Hematology and Cell countsOrdered By: Jc Torres on 06-13-2023 Anisocytosis Ql (Bld) 2+ [facility] MCH (RBC) [Entitic mass] 28.2 pg 27.0-32.0 [facility] MCHC (RBC) [Mass/Vol] 31.7 g/dL 32-36 [facility] Nucleated RBC/100 WBC (Bld) [Ratio] 0 % 0-5 [facility] Platelet mean volume (Bld) [Entitic vol] 11.4 fL 6.2-12.0 [facility] Platelets (Bld) [#/Vol] 338 10*3/uL 150-450 [facility] Macrocytes detectionOrdered By: Jc Torres on 06-13-2023 Macrocytes Ql (Bld) 1+ [facility] No Panel InformationOrdered By: Jc Torres on 06-13-2023 C-Reactive Protein High Sensitivity 0.84 mg/L <3.00 [facility] Comment on above: Low Relative Risk of CVD <1.0 mg/L Average Relative Risk of CVD 1.0 - 3.0 mg/L High Relative Risk of CVD >3.0 mg/L Estimated GFR (MDRD) Amer 121 mL/min >60 [facility] Comment on above: GFR Calc Estimated GFR (MDRD) Non-Af Amer 100 mL/min >60 [facility] Comment on above: Non- GFR Calc Fibrinogen 469 mg/dl 203-444 [facility] Miscellaneous Test See comment [facility] Comment on above: TEST RESULTS LIMITSC ystatin C 0.78 mg/L 0.67-1.14 TESTING PERFORMED AT [facility]. ORIGINAL REPORT ON FILE IN LAB CONTAINS ADDITIONAL TEST SITE INFORMATION. RBC Auto (Bld) [#/Vol]Ordere d By: Jc Torres on 06-13-2023 RBC (Bld) [#/Vol] 3.83 10*6/uL 4.2-5.4 [facility] Serum or plasma calcium vickie urement (mass/volume)Ordered By: Jc Torres on 06-13-2023 Calcium [Mass/Vol] 9.2 mg/dL 8.5-10.1 [facility] Serum or plasma creatinine m easurement (mass/volume)Ordered By: Jc Torres on 06-13-2023 Creatinine [Mass/Vol] 0.65 mg/dL 0.55-1.02 [facility] Comment on above: The validity of the calculated GFR & GFRAA in patients over 70 years has not been determined. Clinical correlation is essential. Serum or plasma urea nitroge n measurement (mass/volume)Ordered By: Jc Torres on 06-13-2023 Urea nitrogen [Mass/Vol] 26 mg/dL 10-12 [facility] Serum or plasma uric acid me asurement (mass/volume)Ordered By: Jc Torres on 06-13-2023 Urate [Mass/Vol] 4.6 mg/dL 2.6-6.0 [facility] Comment on above: The drugs N-Acetylcy steine and Metamizole may falsely depress this assay. Thin prep Papanicolaou smear with manual screeningOrdered By: Jc Torres on 06-13-2023 Thin prep Papanicolaou smear with manual screening 1+ [facility] Thin prep Papanicolaou smear with manual screening 3.0 g/dL 3.2-5.0 [facility] Thin prep Papanicolaou smear with manual screening 22 U/L 15-37 [facility] Thin prep Papanicolaou smear with manual screening 4 5-15 [facility] Thin prep Papanicolaou smear with manual screening 152 ug/dL 80-158 [facility] Comment on above: Detection Limit = 5P erformed at: - [facility] [id number] Director: Neda Sousa MD, Phone: [phone] Absolute lymphocyte countOrd ered By: Jc Cadenaey on 05-03-2023 Lymphocytes Auto (Unsp spec) [#/Vol] 1.03 10*3/uL 0.83-4.51 [facility] Automated lymphocyte count a s percentage of total leukocytesOrdered By: Jc Melissa on 05-03-2023 Lymphocytes/100 WBC Auto (Unsp spec) 29.9 % 19-41 [facility] Basophil percentageOrdered B y: Jc Melissa on 05-03-2023 Basophils/100 WBC (Bld) 0.9 % 0-1 [facility] Bilirubin [Mass/Vol] 0.30 mg/dL 0.20-1.00 [facility] Comment on above: For patients on eltr ombopag therapy, use of [place] TBIL is not recommended. Chloride [Moles/Vol] 108 mmol/L 98-107 [facility] Cholesterol [Mass/Vol] 215 mg/dL <[address] [facility] Comment on above: <200 mg/dL Desirable 200-240 mg/dL Borderline >240 mg/dL High Risk Eosinophils/100 WBC (Bld) 3.8 % 0-5 [facility] Glucose [Mass/Vol] 94 mg/dL 74-106 [facility] Hemoglobin (Bld) [Mass/Vol] 11.1 g/dL 12.0-15.0 [facility] LDH [Catalytic activity/Vol] 166 U/L 84-246 [facility] Monocytes/100 WBC (Bld) 9.6 % 0-10 [facility] Neutrophils (Bld) [#/Vol] 1.9 10*3/uL 2.0-7.7 [facility] Neutrophils/100 WBC (Bld) 55.5 % 47-70 [facility] Potassium [Moles/Vol] 3.5 mmol/L 3.5-5.1 [facility] Protein [Mass/Vol] 6.3 g/dL 6.4-8.2 [facility] Sodium [Moles/Vol] 137 mmol/L 136-145 [facility] Triglyceride [Mass/Vol] 33 mg/dL <199 [facility] Comment on above: The drugs N-Acetylcy steine and Metamizole may falsely depress this assay.Serum Triglycerides Reference Interval Normal <150 mg/dL Borderline high 150 - 199 mg/dL High 200 - 499 mg/dL Very High > or = 500 mg/dL WBC (Bld) [#/Vol] 3.5 10*3/uL 4.4-11.0 [facility] Determination of erythrocyte mean corpuscular volume (MCV)Ordered By: Jc Torres on 05-03-2023 MCV (RBC) [Entitic vol] 88.3 fL 81-99 [facility] Erythrocyte distribution wid th ratioOrdered By: Jc Torres on 05-03-2023 Erythrocyte distribution width (RBC) [Ratio] 18.7 % 11.6-14.6 [facility] Erythrocyte distribution wid th standard deviationOrdered By: Jc Torres on 05-03-2023 Erythrocyte distribution width (RBC) [Entitic vol] 59.8 fL 35.1-43.9 [facility] Erythrocyte sedimentation ra teOrdered By: Jc Torres on 05-03-2023 ESR (Bld) [Velocity] 6 mm/h 0-30 [facility] Free thyroxine indexOrdered By: Jc Torres on 05-03-2023 Free T4 index Calc [Mass/Vol] 2.6 1.4-4.5 [facility] Hematocrit Auto (Bld) [Volum e fraction]Ordered By: Jc Torres on 05-03-2023 Hematocrit (Bld) [Volume fraction] 34.7 % 37-47 [facility] Immature granulocytes/100 WB C Auto (Bld)Ordered By: Jc Torres on 05-03-2023 Immature granulocytes/100 WBC (Bld) 0.300 % 0.0-0.9 [facility] Comment on above: IG% - Immature Granu locytes (promyelocytes, myelocytes and metamyelocytes) > 1% indicates that a LEFT SHIFT is Present. Insulin-like growth factor ( IGF) measurementOrdered By: Jc Torres on 05-03-2023 Insulin-like growth factor [Moles/Vol] 211 ng/mL 60-207 [facility] Iron measurement (mass/mass) Ordered By: Jc Torres on 05-03-2023 Iron (Unsp spec) [Mass/Mass] 111 ug/dL 50-170 [facility] Laboratory - Chemistry and C hemistry - challengeOrdered By: Jc Torres on 05-03-2023 Albumin/Globulin [Mass ratio] 1.2 {ratio} 0.9-2.4 [facility] ALP [Catalytic activity/Vol] 101 U/L 45-117 [facility] ALT [Catalytic activity/Vol] 32 U/L 13-56 [facility] Cholesterol in HDL [Mass/Vol] 81 mg/dL >40 [facility] Comment on above: The drugs N-Acetylcy steine and Metamizole may falsely depress this assay. Reference Range HDL <40 mg/dL Low HDL Cholesterol HDL >or= 60 mg/dL High HDL Cholesterol Cholesterol in LDL [Mass/Vol] 127 mg/dL 0-130 [facility] CO2 [Moles/Vol] 27.0 mmol/L 21.0-32.0 [facility] Ferritin [Mass/Vol] 6 ng/mL 8-252 [facility] Globulin (S) [Mass/Vol] 2.9 g/dL 2.2-4.2 [facility] Urea nitrogen/Creatinine [Mass ratio] 49.3 mg/mg 10-20 [facility] Laboratory - Hematology and Cell countsOrdered By: Jc Torres on 05-03-2023 MCH (RBC) [Entitic mass] 28.2 pg 27.0-32.0 [facility] MCHC (RBC) [Mass/Vol] 32.0 g/dL 32-36 [facility] Nucleated RBC/100 WBC (Bld) [Ratio] 0 % 0-5 [facility] Platelet mean volume (Bld) [Entitic vol] 11.5 fL 6.2-12.0 [facility] Platelets (Bld) [#/Vol] 327 10*3/uL 150-450 [facility] No Panel InformationOrdered By: Jc Torres on 05-03-2023 C-Reactive Protein High Sensitivity 0.27 mg/L <3.00 [facility] Comment on above: Low Relative Risk of CVD <1.0 mg/L Average Relative Risk of CVD 1.0 - 3.0 mg/L High Relative Risk of CVD >3.0 mg/L Estimated GFR (MDRD) Amer 125 mL/min >60 [facility] Comment on above: GFR Calc Estimated GFR (MDRD) Non-Af Amer 103 mL/min >60 [facility] Comment on above: Non- GFR Calc Fibrinogen 420 mg/dl 203-444 [facility] Free Triiodothyronine (T3) pg/dL 1.7 pg/mL 2.18-3.98 [facility] Miscellaneous Test See comment [facility] Comment on above: TEST RESULTS LIMITSI nterleukin-8, Serum A, 24.0 pg/mL 0.0-66.1 TESTING PERFORMED AT [facility]. ORIGINAL REPORT ON FILE IN LAB CONTAINS ADDITIONAL TEST SITE INFORMATION. Thyroglobulin Antibody < 1.0 IU/mL 0.0-0.9 [facility] Comment on above: Thyroglobulin Antibo dy measured by [employer] Total Iron Binding Capacity 451 ug/dL 250-450 [facility] Vitamin D 25-Hydroxy 89.2 ng/mL [facility] Comment on above: Vitamin D 25(OH) Sta tus Range Deficiency <20 ng/mL (50nmol/L) Insufficiency 20 - 30 ng/mL (50 - 75 nmol/L) Sufficiency 30 - 100 ng/mL (75 - 250 nmol/L) Toxicity >100 ng/mL (>250 nmol/L) VLDL Cholesterol 7 mg/dL 5-40 [facility] RBC Auto (Bld) [#/Vol]Ordere d By: Jc Torres on 05-03-2023 RBC (Bld) [#/Vol] 3.93 10*6/uL 4.2-5.4 [facility] Serum or plasma bone alkalin e phosphatase/total alkaline phosphatase ratio (catalyticOrdered By: Jc Torres on 05-03-2023 ALP Bone [Catalytic fraction] 66 % 14-68 [facility] Serum or plasma calcium vickie urement (mass/volume)Ordered By: Jc Torres on 05-03-2023 Calcium [Mass/Vol] 9.4 mg/dL 8.5-10.1 [facility] Serum or plasma creatinine m easurement (mass/volume)Ordered By: Jc Torres on 05-03-2023 Creatinine [Mass/Vol] 0.63 mg/dL 0.55-1.02 [facility] Comment on above: The validity of the calculated GFR & GFRAA in patients over 70 years has not been determined. Clinical correlation is essential. Serum or plasma homocysteine measurement (mass/volume)Ordered By: Jc Torres on 05-03-2023 Homocysteine [Mass/Vol] 6.1 umol/L 3.2-10.7 [facility] Serum or plasma intestinal a lkaline phosphatase/total alkaline phosphatase ratio (catOrdered By: Jc Torres on 05-03-2023 ALP Intest [Catalytic fraction] 1 % 0-18 [facility] Serum or plasma iron saturat ion measurement (mass fraction)Ordered By: Jc Torres on 05-03-2023 Iron saturation [Mass fraction] 24.6 % 15.0-55.0 [facility] Serum or plasma liver alkali ne phosphatase/total alkaline phosphatase ratio (catalytiOrdered By: Jc Torres on 05-03-2023 ALP Liver [Catalytic fraction] 34 % 18-85 [facility] Serum or plasma thyroid stim ulating hormone (TSH) measurement (units/volume)Ordered By: Jc Torres on 05-03-2023 TSH Qn 0.87 uIU/mL 0.358-3.74 [facility] Serum or plasma thyroperoxid ase antibody assay (units/volume)Ordered By: Jc Torres on 05-03-2023 TPO Ab Qn 66 [IU]/mL 0-34 [facility] Serum or plasma thyroxine (T 4) measurement (mass/volume)Ordered By: Jc Torres on 05-03-2023 T4 [Mass/Vol] 7.5 ug/dL 4.8-13.9 [facility] Serum or plasma triiodothyro nine measurement by immunoassay (mass/volume)Ordered By: Jc Torres on 05-03-2023 T3 IA [Mass/Vol] 0.80 ng/mL 0.6-1.81 [facility] Serum or plasma urea nitroge n measurement (mass/volume)Ordered By: Jc Torres on 05-03-2023 Urea nitrogen [Mass/Vol] 31 mg/dL 7-18 [facility] Serum or plasma uric acid me asurement (mass/volume)Ordered By: Jc Torres on 05-03-2023 Urate [Mass/Vol] 4.7 mg/dL 2.6-6.0 [facility] Comment on above: The drugs N-Acetylcy steine and Metamizole may falsely depress this assay. T3 uptakeOrdered By: Jc Torres on 05-03-2023 T3RU 35 % 30-39 [facility] Thin prep Papanicolaou smear with manual screeningOrdered By: Jc Torres on 05-03-2023 Thin prep Papanicolaou smear with manual screening 3.4 g/dL 3.2-5.0 [facility] Thin prep Papanicolaou smear with manual screening 18 U/L 15-37 [facility] Thin prep Papanicolaou smear with manual screening 2 5-15 [facility] Thin prep Papanicolaou smear with manual screening 1.05 ng/dL 0.76-1.46 [facility] [facility] Thin prep Papanicolaou smear with manual screening 100 IU/L 44-121 [facility] Thin prep Papanicolaou smear with manual screening 132 ug/dL 80-158 [facility] Comment on above: Detection Limit = 5P erformed at: - [facility] [id number] Director: Ortiz Hayden PhD, Phone: [phone] at: BN - [facility] [address] [place], [place] [id number] Director: Neda Sousa MD, Phone: [phone] Absolute lymphocyte counton 02-25-2023 Lymphocytes Auto (Unsp spec) [#/Vol] 1.03 10*3/uL 0.83-4.51 [facility] Basophil percentageon 2022 Basophil percentage 153 IU/L 119-226 [facility] Basophils/100 WBC (Bld) 1.0 % 0-1 [facility] Bilirubin [Mass/Vol] 0.20 mg/dL 0.20-1.00 [facility] Comment on above: For patients on eltr ombopag therapy, use of [place] TBIL is not recommended. Chloride [Moles/Vol] 107 mmol/L 98-107 [facility] Eosinophils/100 WBC (Bld) 4.3 % 0-5 [facility] Glucose [Mass/Vol] 94 mg/dL 74-106 [facility] LDH [Catalytic activity/Vol] 191 U/L 84-246 [facility] Neutrophils (Bld) [#/Vol] 2.3 10*3/uL 2.0-7.7 [facility] Neutrophils/100 WBC (Bld) 56.9 % 47-70 [facility] Potassium [Moles/Vol] 3.7 mmol/L 3.5-5.1 [facility] Protein [Mass/Vol] 6.3 g/dL 6.4-8.2 [facility] Sodium [Moles/Vol] 138 mmol/L 136-145 [facility] WBC (Bld) [#/Vol] 4.0 10*3/uL 4.4-11.0 [facility] Blood erythrocytes count (nu mber/volume)on 02-25-2023 RBC (Bld) [#/Vol] 4.01 10*6/uL 4.2-5.4 [facility] Blood hemoglobin measurement (mass/volume)on 02-25-2023 Hemoglobin (Bld) [Mass/Vol] 11.8 g/dL 12.0-15.0 [facility] Blood lymphocytes/100 leukoc yteson 02-25-2023 Lymphocytes/100 WBC (Bld) 25.9 % 19-41 [facility] Blood monocytes/100 leukocyt eson 02-25-2023 Monocytes/100 WBC (Bld) 11.6 % 0-10 [facility] Blood platelet mean volumeon 02-25-2023 Platelet mean volume (Bld) [Entitic vol] 11.2 fL 6.2-12.0 [facility] Determination of erythrocyte mean corpuscular volume (MCV)on 02-25-2023 MCV (RBC) [Entitic vol] 90.3 fL 81-99 [facility] Erythrocyte sedimentation ra linden 02-25-2023 ESR (Bld) [Velocity] 8 mm/h 0-30 [facility] Free thyroxine indexon 02-25 Free T4 index Calc [Mass/Vol] 3.0 1.4-4.5 [facility] Hematocrit Auto (Bld) [Volum e fraction]on 02-25-2023 Hematocrit (Bld) [Volume fraction] 36.2 % 37-47 [facility] LDH-2on 02-25-2023 LDH 2 Elph [Catalytic fraction] 33 % 25-40 [facility] Laboratory - Chemistry and C hemistry - challengeon 02-25-2023 ALP [Catalytic activity/Vol] 80 U/L 45-117 [facility] ALT [Catalytic activity/Vol] 38 U/L 13-56 [facility] Amylase [Catalytic activity/Vol] 8 U/L 5-55 [facility] CO2 [Moles/Vol] 26.0 mmol/L 21.0-32.0 [facility] Free T4 [Mass/Vol] 1.08 ng/dL 0.76-1.46 [facility] Globulin (S) [Mass/Vol] 3.2 g/dL 2.2-4.2 [facility] T4 [Mass/Vol] 8.9 ug/dL 4.8-13.9 [facility] Urea nitrogen/Creatinine [Mass ratio] 37.5 mg/mg 10-20 [facility] Laboratory - Hematology and Cell countson 02-25-2023 Erythrocyte distribution width (RBC) [Entitic vol] 58.5 fL 35.1-43.9 [facility] Erythrocyte distribution width (RBC) [Ratio] 17.5 % 11.6-14.6 [facility] Immature granulocytes/100 WBC (Bld) 0.300 % 0.0-0.9 [facility] Comment on above: IG% - Immature Granu locytes (promyelocytes, myelocytes and metamyelocytes) > 1% indicates that a LEFT SHIFT is Present. MCH (RBC) [Entitic mass] 29.4 pg 27.0-32.0 [facility] Nucleated RBC/100 WBC (Bld) [Ratio] 0 % 0-5 [facility] Lactate dehydrogenase isoenz yme 1 measurementon 02-25-2023 LDH 1 Elph [Catalytic fraction] 24 % 17-32 [facility] Lactate dehydrogenase isoenz yme 3 measurementon 02-25-2023 LDH 3 Elph [Catalytic fraction] 26 % 17-27 [facility] Lactate dehydrogenase isoenz yme 4 measurementon 02-25-2023 LDH 4 Elph [Catalytic fraction] 8 % 5-13 [facility] Lactate dehydrogenase isoenz yme 5 measurementon 02-25-2023 LDH 5 Elph [Catalytic fraction] 9 % 4-20 [facility] MCHC Auto (RBC) [Mass/Vol]on 02-25-2023 MCHC (RBC) [Mass/Vol] 32.6 g/dL 32-36 [facility] No Panel Informationon 02-25 Estimated GFR (MDRD) Amer 129 mL/min >60 [facility] Comment on above: GFR Calc Estimated GFR (MDRD) Non-Af Amer 106 mL/min >60 [facility] Comment on above: Non- GFR Calc Fibrinogen 397 mg/dl 203-444 [facility] Free Triiodothyronine (T3) pg/dL 1.9 pg/mL 2.18-3.98 [facility] Homocysteine 6.0 umol/L 3.2-10.7 [facility] Miscellaneous Test See comment [facility] Comment on above: TEST RESULTS LIMITSG alectin-3 13.4 ng/mL <22.2Reference range of <22.2 ng/mL applies to population withoutknown heart disease.Galectin-3 is NOT a marker of cardiac distress ordecompensation.Galectin-3 is a marker of fibrosis and adverse remodelingresulting in a more progressive form of chronic heartfailure. The [facility] Galectin-3 assay results should beinterpreted in conjunction with clinical evaluation as franny in assessing the prognosis of patients diagnosed withchronic heart failure.* Galectin-3 levels less than or equal to 17.8 ng/mL -LOWER risk of adverse outcomes including mortality orhospitalization.* Galectin-3 levels greater than 17.8 ng/mL - HIGHER riskof adverse outcomes including mortality or hospitalization.* Galectin-3 levels between 17.8 ng/mL and 25.9 ng/mL should be interpreted with caution because these values lie within the reference range.Additional Considerations- Approximately 30% of NYHA class II/III outpatient population were found to have elevated galectin-3 levels (>17.8 ng/mL). [1]- Elevated galectin-3 is found in similar percentages of patients with systolic dysfunction and preserved ejection fraction. [1]- Galectin-3 shows modest correlations with clinical variables, including Age (slightly higher levels in older subjects), Gender (women have slightly higher values) certain co-morbidities (diabetes and atrial fibrillation), and NYHA classification. [2]- Once elevated galectin-3 levels are generally stable over time. [2]- Drugs effective in the management of patients with heart failure often fail to reduce levels of galectin-3 and galectin-3 levels should not be used to guide therapy.* Galectin-3 testing was cleared by the FDA for use in patients with chronic heart failure only. [1](1) Galectin-3 Product Label(2) Montes, R; Maryuri Cardona; Jacque T, et al. Value of Plasma Galectin-3 levels in Heart Failure with Reduced and Preserved Ejection Fraction. [employer] [facility], 2011; 43(1):60-68. TESTING PERFORMED AT [facility]. ORIGINAL REPORT ON FILE IN LAB CONTAINS ADDITIONAL TEST SITE INFORMATION. Previous reported result: Edited by: MARY on 03/01/23:1352 AMENDED REPORT 03/01/23 1352 [facility] LAB TEST 2 previously reported as: TEST RESULTS LIMITSGalectin-3 13.4 ng/mL <22.2Reference range of <22.2 ng/mL applies to population withoutknown heart disease.Galectin-3 is NOT a marker of cardiac distress ordecompensation.Galectin-3 is a marker of fibrosis and adverse remodelingresulting in a more progressive form of chronic heartfailure. The [facility] Galectin-3 assay results should beinterpreted in conjunction with clinical evaluation as franny in assessing the prognosis of patients diagnosed withchronic heart failure.* Galectin-3 levels less than or equal to 17.8 ng/mL -LOWER risk of adverse outcomes including mortality orhospitalization.* Galectin-3 levels greater than 17.8 ng/mL - HIGHER riskof adverse outcomes including mortality or hospitalization.* Galectin-3 levels between 17.8 ng/mL and 25.9 ng/mL should be interpreted with caution because these values lie within the reference range.Additional Considerations- Approximately 30% of NYHA class II/III outpatient population were found to have elevated galectin-3 levels (>17.8 ng/mL). - Elevated galectin-3 is found in similar percentages of patients with systolic dysfunction and preserved ejection fraction. - Galectin-3 shows modest correlations with clinical variables, including Age (slightly higher levels in older subjects), Gender (women have slightly higher values) certain co-morbidities (diabetes and atrial fibrillation), and NYHA classification. - Once elevated galectin-3 levels are generally stable over time. - Drugs effective in the management of patients with heart failure often fail to reduce levels of galectin-3 and galectin-3 levels should not be used to guide therapy.* Galectin-3 testing was cleared by the FDA for use in patients with chronic heart failure only. (1) Galectin-3 Product Label(2) Jessy Montes; Maryuri Cardona; Cyn Santillan, et al. Value of Plasma Galectin-3 levels in Heart Failure with Reduced and Preserved Ejection Fraction. [employer] [facility], 2011; 43(1):60-68.Values obtained with different assay methods or kits cannot be used interchangeably. Results cannot be interpreted as absolute evidence of the presence or absence of malignant disease. TESTING PERFORMED AT [facility]. ORIGINAL REPORT ON FILE IN LAB CONTAINS ADDITIONAL TEST SITE INFORMATION. Reverse Triiodothyronine (T3) 11.6 ng/dL 9.2-24.1 [facility] Thyroid Stimulating Hormone (TSH) 0.09 uIU/mL 0.358-3.74 [facility] Platelets bldon 02-25-2023 Platelets (Bld) [#/Vol] 279 10*3/uL 150-450 [facility] Serum or plasma C reactive p rotein measurement (mass/volume)on 02-25-2023 CRP [Mass/Vol] mg/L 0.0-3.0 [facility] Comment on above: C-Reactive Protein ( CRP) provides useful information for thediagnosis, therapy and monitoring of inflammatory processesand associated diseases. For the evaluation of Relative Riskfor Cardiovascular Disease, a High Sensitivity CRP (HSCRP)should be ordered. Serum or plasma albumin vickie urement (mass/volume)on 02-25-2023 Albumin [Mass/Vol] 3.1 g/dL 3.2-5.0 [facility] Serum or plasma albumin/glob ulin mass ratioon 02-25-2023 Albumin/Globulin [Mass ratio] 1.0 {ratio} 0.9-2.4 [facility] Serum or plasma bone alkalin e phosphatase/total alkaline phosphatase ratio (catalyticon 02-25-2023 ALP Bone [Catalytic fraction] 47 % 14-68 [facility] Serum or plasma calcium vickie urement (mass/volume)on 02-25-2023 Calcium [Mass/Vol] 9.1 mg/dL 8.5-10.1 [facility] Serum or plasma creatinine m easurement (mass/volume)on 02-25-2023 Creatinine [Mass/Vol] 0.61 mg/dL 0.55-1.02 [facility] Comment on above: The validity of the calculated GFR & GFRAA in patients over 70 years has not been determined. Clinical correlation is essential. Serum or plasma ferritin luigi surement (mass/volume)on 02-25-2023 Ferritin [Mass/Vol] 8 ng/mL 8-252 [facility] Serum or plasma intestinal a lkaline phosphatase/total alkaline phosphatase ratio (micaela 02-25-2023 ALP Intest [Catalytic fraction] 1 % 0-18 [facility] Serum or plasma liver alkali ne phosphatase/total alkaline phosphatase ratio (catalytion 02-25-2023 ALP Liver [Catalytic fraction] 52 % 18-85 [facility] Serum or plasma urea nitroge n measurement (mass/volume)on 02-25-2023 Urea nitrogen [Mass/Vol] 23 mg/dL 7-18 [facility] Serum or plasma uric acid me asurement (mass/volume)on 02-25-2023 Urate [Mass/Vol] 4.5 mg/dL 2.6-6.0 [facility] Comment on above: The drugs N-Acetylcy steine and Metamizole may falsely depress this assay. T3 uptakeon 02-25-2023 T3RU 34 % 30-39 [facility] Thin prep Papanicolaou smear with manual screeningon 02-25-2023 Thin prep Papanicolaou smear with manual screening 22 U/L 15-37 [facility] Thin prep Papanicolaou smear with manual screening 5 5-15 [facility] Thin prep Papanicolaou smear with manual screening 83 IU/L 44-121 [facility] Thin prep Papanicolaou smear with manual screening 124 ug/dL 80-158 [facility] Comment on above: Detection Limit = 5P erformed at: [facility] [address] [id number] Director: Ortiz Hayden PhD, Phone: [phone] at: [facility] [address] [id number] Director: Neda Sousa MD, Phone: [phone] Thin prep Papanicolaou smear with manual screening Comment . [facility] Comment on above: The LDH isoenzyme pa ttern appears normal with a normaltotal LDH. Whole blood hemoglobin A1c/t otal hemoglobin ratio (mass fraction)on 02-25-2023 HbA1c (Bld) [Mass fraction] 5.4 % 3.8-5.6 [facility] Comment on above: Normal < 5.7 % Predi abetic 5.7 - 6.4 % Diabetic >or= 6.5 % Please note range changes. Absolute lymphocyte counton 01-13-2023 Lymphocytes Auto (Unsp spec) [#/Vol] 1.18 10*3/uL 0.83-4.51 [facility] Basophil percentageon 2022 Basophils/100 WBC (Bld) 0.6 % 0-1 [facility] Bilirubin [Mass/Vol] 0.20 mg/dL 0.20-1.00 [facility] Comment on above: For patients on eltr ombopag therapy, use of [place] TBIL is not recommended. Chloride [Moles/Vol] 107 mmol/L 98-107 [facility] Cholesterol [Mass/Vol] 206 mg/dL <[address] [facility] Comment on above: <200 mg/dL Desirable 200-240 mg/dL Borderline >240 mg/dL High Risk Eosinophils/100 WBC (Bld) 3.2 % 0-5 [facility] Glucose [Mass/Vol] 97 mg/dL 74-106 [facility] LDH [Catalytic activity/Vol] 203 U/L 84-246 [facility] Neutrophils (Bld) [#/Vol] 4.4 10*3/uL 2.0-7.7 [facility] Neutrophils/100 WBC (Bld) 67.5 % 47-70 [facility] Potassium [Moles/Vol] 3.8 mmol/L 3.5-5.1 [facility] Protein [Mass/Vol] 6.4 g/dL 6.4-8.2 [facility] Sodium [Moles/Vol] 139 mmol/L 136-145 [facility] Triglyceride [Mass/Vol] 20 mg/dL <199 [facility] Comment on above: The drugs N-Acetylcy steine and Metamizole may falsely depress this assay.Serum Triglycerides Reference Interval Normal <150 mg/dL Borderline high 150 - 199 mg/dL High 200 - 499 mg/dL Very High > or = 500 mg/dL WBC (Bld) [#/Vol] 6.5 10*3/uL 4.4-11.0 [facility] Blood erythrocytes count (nu mber/volume)on 01-13-2023 RBC (Bld) [#/Vol] 3.93 10*6/uL 4.2-5.4 [facility] Blood hemoglobin measurement (mass/volume)on 01-13-2023 Hemoglobin (Bld) [Mass/Vol] 11.6 g/dL 12.0-15.0 [facility] Blood lymphocytes/100 leukoc yteson 01-13-2023 Lymphocytes/100 WBC (Bld) 18.2 % 19-41 [facility] Blood monocytes/100 leukocyt eson 01-13-2023 Monocytes/100 WBC (Bld) 10.2 % 0-10 [facility] Blood platelet mean volumeon 01-13-2023 Platelet mean volume (Bld) [Entitic vol] 11.4 fL 6.2-12.0 [facility] Blood vacuolated neutrophils detection by light microscopyon 01-13-2023 Neutrophils.vacuolated LM Ql (Bld) 6.5 [facility] Determination of erythrocyte mean corpuscular volume (MCV)on 01-13-2023 MCV (RBC) [Entitic vol] 92.1 fL 81-99 [facility] Erythrocyte sedimentation ra linden 01-13-2023 ESR (Bld) [Velocity] 8 mm/h 0-30 [facility] Free thyroxine indexon 01-13 Free T4 index Calc [Mass/Vol] 4.0 1.4-4.5 [facility] Hematocrit Auto (Bld) [Volum e fraction]on 01-13-2023 Hematocrit (Bld) [Volume fraction] 36.2 % 37-47 [facility] Insulin-like growth factor ( IGF) measurementon 01-13-2023 Insulin-like growth factor [Moles/Vol] 200 ng/mL 60-207 [facility] Laboratory - Chemistry and C hemistry - challengeon 01-13-2023 ALP [Catalytic activity/Vol] 78 U/L 45-117 [facility] ALT [Catalytic activity/Vol] 32 U/L 13-56 [facility] Amylase [Catalytic activity/Vol] 10 U/L 5-55 [facility] CO2 [Moles/Vol] 28.0 mmol/L 21.0-32.0 [facility] Free T4 [Mass/Vol] 1.35 ng/dL 0.76-1.46 [facility] Globulin (S) [Mass/Vol] 3.3 g/dL 2.2-4.2 [facility] T4 [Mass/Vol] 10.0 ug/dL 4.8-13.9 [facility] Urea nitrogen/Creatinine [Mass ratio] 38.6 mg/mg 10-20 [facility] Laboratory - Hematology and Cell countson 01-13-2023 Erythrocyte distribution width (RBC) [Entitic vol] 57.2 fL 35.1-43.9 [facility] Erythrocyte distribution width (RBC) [Ratio] 16.9 % 11.6-14.6 [facility] Immature granulocytes/100 WBC (Bld) 0.300 % 0.0-0.9 [facility] Comment on above: IG% - Immature Granu locytes (promyelocytes, myelocytes and metamyelocytes) > 1% indicates that a LEFT SHIFT is Present. MCH (RBC) [Entitic mass] 29.5 pg 27.0-32.0 [facility] Nucleated RBC/100 WBC (Bld) [Ratio] 0 % 0-5 [facility] MCHC Auto (RBC) [Mass/Vol]on 01-13-2023 MCHC (RBC) [Mass/Vol] 32.0 g/dL 32-36 [facility] No Panel Informationon 01-13 Estimated GFR (MDRD) Amer 116 mL/min >60 [facility] Comment on above: GFR Calc Estimated GFR (MDRD) Non-Af Amer 96 mL/min >60 [facility] Comment on above: Non- GFR Calc Fibrinogen 452 mg/dl 203-444 [facility] Free Triiodothyronine (T3) pg/dL 2.4 pg/mL 2.18-3.98 [facility] Homocysteine 5.1 umol/L 3.2-10.7 [facility] Insulin Level 2.0 mU/L 2.6-37.6 [facility] Miscellaneous Test See comment [facility] Comment on above: TEST RESULTS LIMITSC ystatin C 0.85 mg/L 0.67 - 1.14 TESTING PERFORMED AT [facility]. ORIGINAL REPORT ON FILE IN LAB CONTAINS ADDITIONAL TEST SITE INFORMATION. TEST RESULTS LIMITSV EGF, Plasma A, 81 pg/mL 0-115[employer] Enzyme Immunoassay (EIA)Values obtained with different assay methods or kits cannot be used interchangeably. Results cannot be interpreted as absolute evidence of the presence or absence of malignant disease.CommentsA: This test was developed and its performance characteristics determined by [facility]. It has not been cleared or approved by the Food and DrugAdministration. TESTING PERFORMED AT [facility]. ORIGINAL REPORT ON FILE IN LAB CONTAINS ADDITIONAL TEST SITE INFORMATION. Reverse Triiodothyronine (T3) 16.6 ng/dL 9.2-24.1 [facility] Thyroid Stimulating Hormone (TSH) 0.02 uIU/mL 0.358-3.74 [facility] Vitamin D 25-Hydroxy 61.5 ng/mL [facility] Comment on above: Vitamin D 25(OH) Sta tus Range Deficiency <20 ng/mL (50nmol/L) Insufficiency 20 - 30 ng/mL (50 - 75 nmol/L) Sufficiency 30 - 100 ng/mL (75 - 250 nmol/L) Toxicity >100 ng/mL (>250 nmol/L) Platelets bldon 01-13-2023 Platelets (Bld) [#/Vol] 305 10*3/uL 150-450 [facility] Serum or plasma C reactive p rotein measurement (mass/volume)on 01-13-2023 CRP [Mass/Vol] mg/L 0.0-3.0 [facility] Comment on above: C-Reactive Protein ( CRP) provides useful information for thediagnosis, therapy and monitoring of inflammatory processesand associated diseases. For the evaluation of Relative Riskfor Cardiovascular Disease, a High Sensitivity CRP (HSCRP)should be ordered. Serum or plasma albumin vickie urement (mass/volume)on 01-13-2023 Albumin [Mass/Vol] 3.1 g/dL 3.2-5.0 [facility] Serum or plasma albumin/glob ulin mass ratioon 01-13-2023 Albumin/Globulin [Mass ratio] 0.9 {ratio} 0.9-2.4 [facility] Serum or plasma calcium vickie urement (mass/volume)on 01-13-2023 Calcium [Mass/Vol] 9.6 mg/dL 8.5-10.1 [facility] Serum or plasma cholesterol in HDL measurement (mass/volume)on 01-13-2023 Cholesterol in HDL [Mass/Vol] 84 mg/dL >40 [facility] Comment on above: The drugs N-Acetylcy steine and Metamizole may falsely depress this assay. Reference Range HDL <40 mg/dL Low HDL Cholesterol HDL >or= 60 mg/dL High HDL Cholesterol Serum or plasma cholesterol in VLDL measurement (mass/volume)on 01-13-2023 Cholesterol in VLDL [Mass/Vol] 4 mg/dL 5-40 [facility] Serum or plasma creatinine m easurement (mass/volume)on 01-13-2023 Creatinine [Mass/Vol] 0.67 mg/dL 0.55-1.02 [facility] Comment on above: The validity of the calculated GFR & GFRAA in patients over 70 years has not been determined. Clinical correlation is essential. Serum or plasma low density lipoprotein (LDL) cholesterol measurement (mass/volume)on 10-19-2023 Cholesterol in LDL [Mass/Vol] 118 mg/dL 0-130 [facility] Serum or plasma urea nitroge n measurement (mass/volume)on 01-13-2023 Urea nitrogen [Mass/Vol] 26 mg/dL 7-18 [facility] Serum or plasma uric acid me asurement (mass/volume)on 01-13-2023 Urate [Mass/Vol] 5.3 mg/dL 2.6-6.0 [facility] Comment on above: The drugs N-Acetylcy steine and Metamizole may falsely depress this assay. T3 uptakeon 01-13-2023 T3RU 40 % 30-39 [facility] Thin prep Papanicolaou smear with manual screeningon 01-13-2023 Thin prep Papanicolaou smear with manual screening 16 U/L 15-37 [facility] Thin prep Papanicolaou smear with manual screening 4 5-15 [facility] Thin prep Papanicolaou smear with manual screening 144 ug/dL 80-158 [facility] Comment on above: Detection Limit = 5P erformed at: [facility] [address] [address] [id number] Director: Neda Sousa MD, Phone: [phone] Absolute lymphocyte counton 12-07-2022 Lymphocytes Auto (Unsp spec) [#/Vol] 1.07 10*3/uL 0.83-4.51 [facility] Basophil percentageon 2022 Basophils/100 WBC (Bld) 0.6 % 0-1 [facility] Bilirubin [Mass/Vol] 0.20 mg/dL 0.20-1.00 [facility] Comment on above: For patients on eltr ombopag therapy, use of [place] TBIL is not recommended. Chloride [Moles/Vol] 107 mmol/L 98-107 [facility] Eosinophils/100 WBC (Bld) 3.3 % 0-5 [facility] Glucose [Mass/Vol] 97 mg/dL 74-106 [facility] LDH [Catalytic activity/Vol] 178 U/L 84-246 [facility] Neutrophils (Bld) [#/Vol] 6.2 10*3/uL 2.0-7.7 [facility] Neutrophils/100 WBC (Bld) 73.1 % 47-70 [facility] Potassium [Moles/Vol] 3.7 mmol/L 3.5-5.1 [facility] Protein [Mass/Vol] 6.0 g/dL 6.4-8.2 [facility] Sodium [Moles/Vol] 140 mmol/L 136-145 [facility] WBC (Bld) [#/Vol] 8.4 10*3/uL 4.4-11.0 [facility] Blood erythrocytes count (nu mber/volume)on 12-07-2022 RBC (Bld) [#/Vol] 3.54 10*6/uL 4.2-5.4 [facility] Blood hemoglobin measurement (mass/volume)on 12-07-2022 Hemoglobin (Bld) [Mass/Vol] 10.7 g/dL 12.0-15.0 [facility] Blood lymphocytes/100 leukoc yteson 12-07-2022 Lymphocytes/100 WBC (Bld) 12.7 % 19-41 [facility] Blood monocytes/100 leukocyt eson 12-07-2022 Monocytes/100 WBC (Bld) 10.1 % 0-10 [facility] Blood platelet mean volumeon 12-07-2022 Platelet mean volume (Bld) [Entitic vol] 10.7 fL 6.2-12.0 [facility] Determination of erythrocyte mean corpuscular volume (MCV)on 12-07-2022 MCV (RBC) [Entitic vol] 93.2 fL 81-99 [facility] Erythrocyte sedimentation ra linden 12-07-2022 ESR (Bld) [Velocity] 16 mm/h 0-30 [facility] Hematocrit Auto (Bld) [Volum e fraction]on 12-07-2022 Hematocrit (Bld) [Volume fraction] 33.0 % 37-47 [facility] Laboratory - Chemistry and C hemistry - challengeon 12-07-2022 ALP [Catalytic activity/Vol] 81 U/L 45-117 [facility] ALT [Catalytic activity/Vol] 37 U/L 13-56 [facility] CO2 [Moles/Vol] 29.0 mmol/L 21.0-32.0 [facility] Free T4 [Mass/Vol] 1.38 ng/dL 0.76-1.46 [facility] Globulin (S) [Mass/Vol] 3.2 g/dL 2.2-4.2 [facility] T4 [Mass/Vol] 10.7 ug/dL 4.8-13.9 [facility] Urea nitrogen/Creatinine [Mass ratio] 45.7 mg/mg 10-20 [facility] Laboratory - Hematology and Cell countson 12-07-2022 Erythrocyte distribution width (RBC) [Entitic vol] 56.4 fL 35.1-43.9 [facility] Erythrocyte distribution width (RBC) [Ratio] 16.5 % 11.6-14.6 [facility] Immature granulocytes/100 WBC (Bld) 0.200 % 0.0-0.9 [facility] Comment on above: IG% - Immature Granu locytes (promyelocytes, myelocytes and metamyelocytes) > 1% indicates that a LEFT SHIFT is Present. MCH (RBC) [Entitic mass] 30.2 pg 27.0-32.0 [facility] Nucleated RBC/100 WBC (Bld) [Ratio] 0 % 0-5 [facility] MCHC Auto (RBC) [Mass/Vol]on 12-07-2022 MCHC (RBC) [Mass/Vol] 32.4 g/dL 32-36 [facility] No Panel Informationon 12-07 D-Dimer Quantitative (PE/DVT) 0.43 FEU/ug/m 0.27-0.49 [facility] Comment on above: NORMAL D-Dimer level (<0.50) indicates no DVT or PE. Estimated GFR (MDRD) Amer 115 mL/min >60 [facility] Comment on above: GFR Calc Estimated GFR (MDRD) Non-Af Amer 95 mL/min >60 [facility] Comment on above: Non- GFR Calc Fibrinogen 542 mg/dl 203-444 [facility] Free Triiodothyronine (T3) pg/dL 2.0 pg/mL 2.18-3.98 [facility] Homocysteine 4.3 umol/L 3.2-10.7 [facility] Miscellaneous Test See comment [facility] Comment on above: TEST RESULT LIMITSVE GF, Plasma, 81 pg/mL 0-115 [facility] [employer] [facility] [employer] Enzyme Immunoassay (EIA)Values obtained with different assay methods or kits cannot be used interchangeably. Results cannot be interpreted as absolute evidence of the presence or absence of malignant disease. ____ TESTING PERFORMED AT [facility]. ORIGINAL REPORT ON FILE IN LAB CONTAINS ADDITIONAL TEST SITE INFORMATION. Reverse Triiodothyronine (T3) 20.7 ng/dL 9.2-24.1 [facility] Thyroid Stimulating Hormone (TSH) 0.02 uIU/mL 0.358-3.74 [facility] Vitamin D 25-Hydroxy 65.6 ng/mL [facility] Comment on above: Vitamin D 25(OH) Sta tus Range Deficiency <20 ng/mL (50nmol/L) Insufficiency 20 - 30 ng/mL (50 - 75 nmol/L) Sufficiency 30 - 100 ng/mL (75 - 250 nmol/L) Toxicity >100 ng/mL (>250 nmol/L) Platelets bldon 12-07-2022 Platelets (Bld) [#/Vol] 367 10*3/uL 150-450 [facility] Serum or plasma C reactive p rotein measurement (mass/volume)on 12-07-2022 CRP [Mass/Vol] mg/L 0.0-3.0 [facility] Comment on above: C-Reactive Protein ( CRP) provides useful information for thediagnosis, therapy and monitoring of inflammatory processesand associated diseases. For the evaluation of Relative Riskfor Cardiovascular Disease, a High Sensitivity CRP (HSCRP)should be ordered. Serum or plasma albumin vickie urement (mass/volume)on 12-07-2022 Albumin [Mass/Vol] 2.8 g/dL 3.2-5.0 [facility] Serum or plasma albumin/glob ulin mass ratioon 09-12-2023 Albumin/Globulin [Mass ratio] 0.9 {ratio} 0.9-2.4 [facility] Serum or plasma calcium vickie urement (mass/volume)on 12-07-2022 Calcium [Mass/Vol] 9.2 mg/dL 8.5-10.1 [facility] Serum or plasma creatinine m easurement (mass/volume)on 12-07-2022 Creatinine [Mass/Vol] 0.68 mg/dL 0.55-1.02 [facility] Comment on above: The validity of the calculated GFR & GFRAA in patients over 70 years has not been determined. Clinical correlation is essential. Serum or plasma urea nitroge n measurement (mass/volume)on 12-07-2022 Urea nitrogen [Mass/Vol] 31 mg/dL 7-18 [facility] Serum or plasma uric acid me asurement (mass/volume)on 12-07-2022 Urate [Mass/Vol] 5.6 mg/dL 2.6-6.0 [facility] Comment on above: The drugs N-Acetylcy steine and Metamizole may falsely depress this assay. Thin prep Papanicolaou smear with manual screeningon 12-07-2022 Thin prep Papanicolaou smear with manual screening 16 U/L 15-37 [facility] Thin prep Papanicolaou smear with manual screening 4 5-15 [facility] Thin prep Papanicolaou smear with manual screening 143 ug/dL 80-158 [facility] Comment on above: Detection Limit = 5P erformed at: - [address] [id number] Director: Neda Sousa MD, Phone: [phone] Absolute lymphocyte counton 11-11-2022 Lymphocytes Auto (Unsp spec) [#/Vol] 1.14 10*3/uL 0.83-4.51 [facility] Basophil percentageon 2022 Basophils/100 WBC (Bld) 0.3 % 0-1 [facility] Bilirubin [Mass/Vol] 0.10 mg/dL 0.20-1.00 [facility] Comment on above: For patients on eltr ombopag therapy, use of [place] TBIL is not recommended. Chloride [Moles/Vol] 107 mmol/L 98-107 [facility] Cholesterol [Mass/Vol] 195 mg/dL <[address] [facility] Comment on above: <200 mg/dL Desirable 200-240 mg/dL Borderline >240 mg/dL High Risk Eosinophils/100 WBC (Bld) 1.5 % 0-5 [facility] Glucose [Mass/Vol] 93 mg/dL 74-106 [facility] LDH [Catalytic activity/Vol] 194 U/L 84-246 [facility] Neutrophils (Bld) [#/Vol] 4.7 10*3/uL 2.0-7.7 [facility] Neutrophils/100 WBC (Bld) 71.2 % 47-70 [facility] Potassium [Moles/Vol] 3.8 mmol/L 3.5-5.1 [facility] Protein [Mass/Vol] 5.6 g/dL 6.4-8.2 [facility] Sodium [Moles/Vol] 139 mmol/L 136-145 [facility] Triglyceride [Mass/Vol] 33 mg/dL <199 [facility] Comment on above: The drugs N-Acetylcy steine and Metamizole may falsely depress this assay.Serum Triglycerides Reference Interval Normal <150 mg/dL Borderline high 150 - 199 mg/dL High 200 - 499 mg/dL Very High > or = 500 mg/dL WBC (Bld) [#/Vol] 6.5 10*3/uL 4.4-11.0 [facility] Blood erythrocytes count (nu mber/volume)on 11-11-2022 RBC (Bld) [#/Vol] 3.49 10*6/uL 4.2-5.4 [facility] Blood hemoglobin measurement (mass/volume)on 11-11-2022 Hemoglobin (Bld) [Mass/Vol] 10.9 g/dL 12.0-15.0 [facility] Blood lymphocytes/100 leukoc yteson 11-11-2022 Lymphocytes/100 WBC (Bld) 17.5 % 19-41 [facility] Blood monocytes/100 leukocyt eson 11-11-2022 Monocytes/100 WBC (Bld) 9.2 % 0-10 [facility] Blood platelet mean volumeon 11-11-2022 Platelet mean volume (Bld) [Entitic vol] 11.3 fL 6.2-12.0 [facility] Determination of erythrocyte mean corpuscular volume (MCV)on 11-11-2022 MCV (RBC) [Entitic vol] 96.8 fL 81-99 [facility] Erythrocyte sedimentation ra linden 11-11-2022 ESR (Bld) [Velocity] 13 mm/h 0-30 [facility] Free thyroxine indexon 11-11 Free T4 index Calc [Mass/Vol] TNP [facility] Comment on above: Test not performed Hematocrit Auto (Bld) [Volum e fraction]on 11-11-2022 Hematocrit (Bld) [Volume fraction] 33.8 % 37-47 [facility] Insulin-like growth factor ( IGF) measurementon 11-11-2022 Insulin-like growth factor [Moles/Vol] 162 ng/mL 60-207 [facility] Laboratory - Chemistry and C hemistry - challengeon 11-11-2022 ALP [Catalytic activity/Vol] 75 U/L 45-117 [facility] ALT [Catalytic activity/Vol] 36 U/L 13-56 [facility] Amylase [Catalytic activity/Vol] 11 U/L 5-55 [facility] CO2 [Moles/Vol] 28.0 mmol/L 21.0-32.0 [facility] Globulin (S) [Mass/Vol] 3.0 g/dL 2.2-4.2 [facility] Urea nitrogen/Creatinine [Mass ratio] 48.8 mg/mg 10-20 [facility] Laboratory - Hematology and Cell countson 11-11-2022 Erythrocyte distribution width (RBC) [Entitic vol] 57.1 fL 35.1-43.9 [facility] Erythrocyte distribution width (RBC) [Ratio] 16.3 % 11.6-14.6 [facility] Immature granulocytes/100 WBC (Bld) 0.300 % 0.0-0.9 [facility] Comment on above: IG% - Immature Granu locytes (promyelocytes, myelocytes and metamyelocytes) > 1% indicates that a LEFT SHIFT is Present. MCH (RBC) [Entitic mass] 31.2 pg 27.0-32.0 [facility] Nucleated RBC/100 WBC (Bld) [Ratio] 0 % 0-5 [facility] Auto (RBC) [Mass/Vol]on 11-11-2022 MCHC (RBC) [Mass/Vol] 32.2 g/dL 32-36 [facility] No Panel Informationon 11-11 Ceruloplasmin 29.5 mg/dL 19.0-39.0 [facility] Estimated GFR (MDRD) Amer 124 mL/min >60 [facility] Comment on above: GFR Calc Estimated GFR (MDRD) Non-Af Amer 102 mL/min >60 [facility] Comment on above: Non- GFR Calc Fibrinogen 503 mg/dl 203-444 [facility] Free Triiodothyronine (T3) pg/dL 2.2 pg/mL 2.18-3.98 [facility] Homocysteine 4.6 umol/L 3.2-10.7 [facility] Insulin Level 1.5 mU/L 2.6-37.6 [facility] Miscellaneous Test See comment [facility] Comment on above: TEST RESULTS LIMITS [id number] 21.5 ng/mL <22.2Reference range of <22.2 ng/mL applies to population withoutknown heart disease.Galectin-3 is NOT a marker of cardiac distress ordecompensation.Galectin-3 is a marker of fibrosis and adverse remodelingresulting in a more progressive form of chronic heartfailure. The [facility] Galectin-3 assay results should beinterpreted in conjunction with clinical evaluation as franny in assessing the prognosis of patients diagnosed withchronic heart failure.* Galectin-3 levels less than or equal to 17.8 ng/mL -LOWER risk of adverse outcomes including mortality orhospitalization.* Galectin-3 levels greater than 17.8 ng/mL - HIGHER riskof adverse outcomes including mortality or hospitalization.* Galectin-3 levels between 17.8 ng/mL and 25.9 ng/mL should be interpreted with caution because these values lie within the reference range.Additional Considerations- Approximately 30% of NYHA class II/III outpatient population were found to have elevated galectin-3 levels (>17.8 ng/mL). [1]- Elevated galectin-3 is found in similar percentages of patients with systolic dysfunction and preserved ejection fraction. [1]- Galectin-3 shows modest correlations with clinical variables, including Age (slightly higher levels in older subjects), Gender (women have slightly higher values) certain co-morbidities (diabetes and atrial fibrillation), and NYHA classification. [2]- Once elevated galectin-3 levels are generally stable over time. [2]- Drugs effective in the management of patients with heart failure often fail to reduce levels of galectin-3 and galectin-3 levels should not be used to guide therapy.* Galectin-3 testing was cleared by the FDA for use in patients with chronic heart failure only. [1](1) Galectin-3 Product Label(2) de Jessy Balderas; Maryuri Cardona; Jacque T, et al. Value of Plasma Galectin-3 levels in Heart Failure with Reduced and Preserved Ejection Fraction. [employer], 2011; 43(1):60-68. TESTING PERFORMED AT [facility]. ORIGINAL REPORT ON FILE IN LAB CONTAINS ADDITIONAL TEST SITE INFORMATION. Reverse Triiodothyronine (T3) 15.8 ng/dL 9.2-24.1 [facility] Thyroglobulin Antibody < 1.0 IU/mL 0.0-0.9 [facility] Comment on above: Thyroglobulin Antibo dy measured by [employer] [employer] Thyroglobulin Level 1.1 ng/mL 1.5-38.5 [facility] Comment on above: According to the [place] [employer],the reference interval for Thyroglobulin (TG) should berelated to euthyroid patients and not for patients whounderwent thyroidectomy. TG reference intervals for thesepatients depend on the residual mass of the thyroid tissueleft after surgery. Establishing a post-operative baselineis recommended. The assay limit of quantitation is 0.1ng/mLThyroglobulin measured by [employer] [facility] [employer] Platelets bldon 11-11-2022 Platelets (Bld) [#/Vol] 363 10*3/uL 150-450 [facility] Serum or plasma C reactive p rotein measurement (mass/volume)on 11-11-2022 CRP [Mass/Vol] mg/L 0.0-3.0 [facility] Comment on above: C-Reactive Protein ( CRP) provides useful information for thediagnosis, therapy and monitoring of inflammatory processesand associated diseases. For the evaluation of Relative Riskfor Cardiovascular Disease, a High Sensitivity CRP (HSCRP)should be ordered. Serum or plasma albumin vickie urement (mass/volume)on 11-11-2022 Albumin [Mass/Vol] 2.6 g/dL 3.2-5.0 [facility] Serum or plasma albumin/glob ulin mass ratioon 11-11-2022 Albumin/Globulin [Mass ratio] 0.9 {ratio} 0.9-2.4 [facility] Serum or plasma calcium vickie urement (mass/volume)on 11-11-2022 Calcium [Mass/Vol] 9.0 mg/dL 8.5-10.1 [facility] Serum or plasma cholesterol in HDL measurement (mass/volume)on 11-11-2022 Cholesterol in HDL [Mass/Vol] 68 mg/dL >40 [facility] Comment on above: The drugs N-Acetylcy steine and Metamizole may falsely depress this assay. Reference Range HDL <40 mg/dL Low HDL Cholesterol HDL >or= 60 mg/dL High HDL Cholesterol Serum or plasma cholesterol in VLDL measurement (mass/volume)on 11-11-2022 Cholesterol in VLDL [Mass/Vol] 7 mg/dL 5-40 [facility] Serum or plasma creatinine m easurement (mass/volume)on 11-11-2022 Creatinine [Mass/Vol] 0.64 mg/dL 0.55-1.02 [facility] Comment on above: The validity of the calculated GFR & GFRAA in patients over 70 years has not been determined. Clinical correlation is essential. Serum or plasma low density lipoprotein (LDL) cholesterol measurement (mass/volume)on 11-11-2022 Cholesterol in LDL [Mass/Vol] 120 mg/dL 0-130 [facility] Serum or plasma thyroperoxid ase antibody assay (units/volume)on 11-11-2022 TPO Ab Qn [IU]/mL 0-34 [facility] Comment on above: Performed at: [facility] [address] [id number] Director: Neda Sousa MD, Phone: [phone] at: CB - [facility] [id number] [place], [place] [id number] Director: Ortiz Hayden PhD, Phone: [phone] Serum or plasma urea nitroge n measurement (mass/volume)on 11-11-2022 Urea nitrogen [Mass/Vol] 31 mg/dL 7-18 [facility] Serum or plasma uric acid me asurement (mass/volume)on 11-11-2022 Urate [Mass/Vol] 5.8 mg/dL 2.6-6.0 [facility] Comment on above: The drugs N-Acetylcy steine and Metamizole may falsely depress this assay. T3 uptakeon 11-11-2022 T3RU 38 % 30-39 [facility] Thin prep Papanicolaou smear with manual screeningon 11-11-2022 Thin prep Papanicolaou smear with manual screening 23 U/L 15-37 [facility] Thin prep Papanicolaou smear with manual screening 4 5-15 [facility] Thin prep Papanicolaou smear with manual screening 134 ug/dL 80-158 [facility] Comment on above: Detection Limit = 5 MR Pelvis WO and W contrast Tom 09-05-2022 IMPRESSION: Bilateral enhancing ileal lesions as above, which are likely reflective of myelomatous lesions given the patient's history. No soft tissue mass identified. 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 Date/Time: Sep 05 2022 10:26A Dictated by : RICHA LOPEZ MD This examination was interpreted and the report reviewed and electronically signed by: RICHA LOPEZ MD on Sep 05 2022 10:37AM [facility] * * *Final Report* * * DATE OF EXAM: Sep 02 2022 3:05PM ROM 0742 - MRI PELVIS WO/W IVCON / PROCEDURE REASON: Neoplasm of unspecified behavior of bone, soft tissue, and skin * * * * Physician Interpretation * * * * MRI PELVIS WITHOUT AND WITH CONTRAST Clinical Statement: Neoplasm of unspecified behavior of bone, soft tissue, and skin. 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 Comparison: Whole body PET CT 08/05/2022. TECHNIQUE: Long and short axis fat and water weighted MR images were obtained without contrast. Postcontrast enhanced fat-suppressed T1-weighted multiplanar images were obtained following the uneventful administration of 6 cc Gadavist intravenously. FINDINGS: The subcutaneous soft tissues are edematous, primarily in the flank regions, right greater than left gluteal regions and visualized upper left thigh. The muscles appear normal in signal and morphology. No enhancing soft tissue mass or fluid collection identified. No lymphadenopathy. There is an enhancing intramedullary lesion within the posterior right ilium measuring 2.2 cm. The lesion is predominantly isointense to skeletal muscle on T1-weighted images and is increased in signal and T2-weighted images. There is no evidence of endosteal scalloping, cortical breakthrough or periosteal reaction. There is a similar-appearing although less well-defined region of T2 signal hyperintensity and enhancement within the posterior left ilium measuring up to 2.2 cm which shows only mild corresponding T1 marrow signal changes. No other bone lesions identified. The hip joints, pubic symphysis and SI joint spaces are unremarkable. [facility] Provider, [facility] - 09/05/2022 * * *Final Report* * * DATE OF EXAM: Sep 02 2022 3:05PM ROM 0742 - MRI PELVIS WO/W IVCON / PROCEDURE REASON: Neoplasm of unspecified behavior of bone, soft tissue, and skin * * * * Physician Interpretation * * * * MRI PELVIS WITHOUT AND WITH CONTRAST Clinical Statement: Neoplasm of unspecified behavior of bone, soft tissue, and skin. 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 Comparison: Whole body PET CT 08/05/2022. TECHNIQUE: Long and short axis fat and water weighted MR images were obtained without contrast. Postcontrast enhanced fat-suppressed T1-weighted multiplanar images were obtained following the uneventful administration of 6 cc Gadavist intravenously. FINDINGS: The subcutaneous soft tissues are edematous, primarily in the flank regions, right greater than left gluteal regions and visualized upper left thigh. The muscles appear normal in signal and morphology. No enhancing soft tissue mass or fluid collection identified. No lymphadenopathy. There is an enhancing intramedullary lesion within the posterior right ilium measuring 2.2 cm. The lesion is predominantly isointense to skeletal muscle on T1-weighted images and is increased in signal and T2-weighted images. There is no evidence of endosteal scalloping, cortical breakthrough or periosteal reaction. There is a similar-appearing although less well-defined region of T2 signal hyperintensity and enhancement within the posterior left ilium measuring up to 2.2 cm which shows only mild corresponding T1 marrow signal changes. No other bone lesions identified. The hip joints, pubic symphysis and SI joint spaces are unremarkable. IMPRESSION IMPRESSION: Bilateral enhancing ileal lesions as above, which are likely reflective of myelomatous lesions given the patient's history. No soft tissue mass identified. 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 Date/Time: Sep 05 2022 10:26A Dictated by : RICHA LOPEZ MD This examination was interpreted and the report reviewed and electronically signed by: RICHA LOPEZ MD on Sep 05 2022 10:37AM EST [facility] MR Pelvis WO and W contrast IVOrdered By: [facility] Provider on 09-05-2022 [facility] MR Cervical spine WO and W c ontrast Tom 09-02-2022 * * *Final Report* * * DATE OF EXAM: Sep 02 2022 4:03PM ROM 0298 - MRI CERVICAL SPINE WO/W IVCON / PROCEDURE REASON: multiple diagnoses * * * * Physician Interpretation * * * * EXAMINATION: MRI CERVICAL SPINE WO/W IVCON, MRI THORACIC SPINE WO/W IVCON, MRI LUMBAR SPINE WO/W IVCON 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 MQ: [id number] Contrast: Gadavist. Contrast Dose: 6 cc Route of Administration: IV COMPARISON: PET/CT 08/05/2022. RESULT: Localizer images: Bilateral small-moderate pleural effusions. CERVICAL: Counting reference: Craniocervical junction. Anatomic Variants: None. Alignment: Alignment is anatomic. Craniocervical junction: Craniocervical junction is normal. Cord: The cervical spinal cord is within normal limits of signal intensity and morphology. Bone marrow signal/fracture: No evidence of pathologic marrow infiltration. No evidence of prior fracture. No abnormal enhancement. Cervical soft tissues: The paraspinal soft tissues are within normal limits. Canal and foramina: Mild disc bulge at C5-6 and C6-7 levels with mild ventral thecal sac effacement. No significant foraminal stenosis. THORACIC: Counting reference: Craniocervical and lumbosacral junctions. For the purposes of this report, Alignment: Mildly accentuated thoracic kyphosis. Cord: The thoracic spinal cord is within normal limits of signal intensity and morphology. Bone marrow signal/fracture: Chronic compression deformities of T6 and T7. Small osseous lesion at the right inferior endplate of T7 with T1 hypointense, T2/STIR hyperintense signal, with postcontrast enhancement. Small osseous lesion at the inferior endplate of T12 demonstrates hypointense signal on T1 and T2/STIR, without enhancement likely sclerotic. These findings appear to be present on prior PET/CT and did not show hypermetabolic activity. Patchy fatty marrow change suggests a component of osteopenia. Thoracic soft tissues: The paraspinal soft tissues are within normal limits. Canal and foramina: No significant thoracic canal or foraminal stenosis within the constraints of the study. LUMBAR: Counting reference: Craniocervical and lumbosacral junctions. For the purposes of this report, Alignment: Mild dextrocurvature apex right at L2-3. Bone marrow signal/fracture: Mild superior endplate compression deformity of L4, with a small central focus of T1 hypointense, T2/STIR hyperintense signal with postcontrast enhancement. This most likely represents an associated Schmorl's node which could be recent, the lesion was present on prior PET/CT and did not show hypermetabolic activity. Patchy fatty marrow change suggests a osteopenia. Conus: The conus is within normal limits of signal intensity and morphology. Paraspinal soft tissues: Paraspinal soft tissues are within normal limits. Canal and foramina: Mild disc bulges at L4-5 and L5-S1 with mild canal stenosis at L4-5 with a contribution from ligamentum flavum/facet hypertrophy and epidural fat. Small central annular fissure and disc protrusion at L5-S1. Mild bilateral foraminal narrowing at L5-S1 with a contribution from facet hypertrophy. Sacrum and iliac wings: The visualized sacrum and iliac wings are within normal limits. The presacral soft tissues are normal in appearance. [facility] Provider, Ana Paula Bal - 09/02/2022 * * *Final Report* * * DATE OF EXAM: Sep 02 2022 4:03PM ROM 0298 - MRI CERVICAL SPINE WO/W IVCON / PROCEDURE REASON: multiple diagnoses * * * * Physician Interpretation * * * * EXAMINATION: MRI CERVICAL SPINE WO/W IVCON, MRI THORACIC SPINE WO/W IVCON, MRI LUMBAR SPINE WO/W IVCON 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 MQ: [id number] Contrast: Gadavist. Contrast Dose: 6 cc Route of Administration: IV COMPARISON: PET/CT 08/05/2022. RESULT: Localizer images: Bilateral small-moderate pleural effusions. CERVICAL: Counting reference: Craniocervical junction. Anatomic Variants: None. Alignment: Alignment is anatomic. Craniocervical junction: Craniocervical junction is normal. Cord: The cervical spinal cord is within normal limits of signal intensity and morphology. Bone marrow signal/fracture: No evidence of pathologic marrow infiltration. No evidence of prior fracture. No abnormal enhancement. Cervical soft tissues: The paraspinal soft tissues are within normal limits. Canal and foramina: Mild disc bulge at C5-6 and C6-7 levels with mild ventral thecal sac effacement. No significant foraminal stenosis. THORACIC: Counting reference: Craniocervical and lumbosacral junctions. For the purposes of this report, Alignment: Mildly accentuated thoracic kyphosis. Cord: The thoracic spinal cord is within normal limits of signal intensity and morphology. Bone marrow signal/fracture: Chronic compression deformities of T6 and T7. Small osseous lesion at the right inferior endplate of T7 with T1 hypointense, T2/STIR hyperintense signal, with postcontrast enhancement. Small osseous lesion at the inferior endplate of T12 demonstrates hypointense signal on T1 and T2/STIR, without enhancement likely sclerotic. These findings appear to be present on prior PET/CT and did not show hypermetabolic activity. Patchy fatty marrow change suggests a component of osteopenia. Thoracic soft tissues: The paraspinal soft tissues are within normal limits. Canal and foramina: No significant thoracic canal or foraminal stenosis within the constraints of the study. LUMBAR: Counting reference: Craniocervical and lumbosacral junctions. For the purposes of this report, Alignment: Mild dextrocurvature apex right at L2-3. Bone marrow signal/fracture: Mild superior endplate compression deformity of L4, with a small central focus of T1 hypointense, T2/STIR hyperintense signal with postcontrast enhancement. This most likely represents an associated Schmorl's node which could be recent, the lesion was present on prior PET/CT and did not show hypermetabolic activity. Patchy fatty marrow change suggests a osteopenia. Conus: The conus is within normal limits of signal intensity and morphology. Paraspinal soft tissues: Paraspinal soft tissues are within normal limits. Canal and foramina: Mild disc bulges at L4-5 and L5-S1 with mild canal stenosis at L4-5 with a contribution from ligamentum flavum/facet hypertrophy and epidural fat. Small central annular fissure and disc protrusion at L5-S1. Mild bilateral foraminal narrowing at L5-S1 with a contribution from facet hypertrophy. Sacrum and iliac wings: The visualized sacrum and iliac wings are within normal limits. The presacral soft tissues are normal in appearance. IMPRESSION IMPRESSION: No definite suspicious osseous lesion in the cervical, thoracic or lumbar spine. Chronic compression deformities of T6, T7 and L4. Small endplate lesions at T7 and L4 presumably associated Schmorl's node deformities, although these did not show hypermetabolic activity on prior PET CT attention on follow-up may be of value. Bilateral pleural effusions. Cervical Anatomic Variant: None. Assume 7 cervical vertebrae with counting from the craniocervical junction. Anatomic Thoracic/Lumbar Variant: None. L4-5 is considered the level of the iliac crest and assume there are 5 lumbar-type vertebrae. 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 Date/Time: Sep 02 2022 4:57P Dictated by : MARY STATON MD This examination was interpreted and the report reviewed and electronically signed by: MARY STATON MD on Sep 02 2022 5:13PM [facility] Radiology Study observation (narrative) Ad[facility] MR Lumbar spine WO and W con trast Tom 09-02-2022 * * *Final Report* * * DATE OF EXAM: Sep 02 2022 3:32PM ROM 0304 - MRI LUMBAR SPINE WO/W IVCON / PROCEDURE REASON: multiple diagnoses * * * * Physician Interpretation * * * * EXAMINATION: MRI CERVICAL SPINE WO/W IVCON, MRI THORACIC SPINE WO/W IVCON, MRI LUMBAR SPINE WO/W IVCON 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 MQ: [id number]_3 Contrast: Gadavist. Contrast Dose: 6 cc Route of Administration: IV COMPARISON: PET/CT 08/05/2022. RESULT: Localizer images: Bilateral small-moderate pleural effusions. CERVICAL: Counting reference: Craniocervical junction. Anatomic Variants: None. Alignment: Alignment is anatomic. Craniocervical junction: Craniocervical junction is normal. Cord: The cervical spinal cord is within normal limits of signal intensity and morphology. Bone marrow signal/fracture: No evidence of pathologic marrow infiltration. No evidence of prior fracture. No abnormal enhancement. Cervical soft tissues: The paraspinal soft tissues are within normal limits. Canal and foramina: Mild disc bulge at C5-6 and C6-7 levels with mild ventral thecal sac effacement. No significant foraminal stenosis. THORACIC: Counting reference: Craniocervical and lumbosacral junctions. For the purposes of this report, Alignment: Mildly accentuated thoracic kyphosis. Cord: The thoracic spinal cord is within normal limits of signal intensity and morphology. Bone marrow signal/fracture: Chronic compression deformities of T6 and T7. Small osseous lesion at the right inferior endplate of T7 with T1 hypointense, T2/STIR hyperintense signal, with postcontrast enhancement. Small osseous lesion at the inferior endplate of T12 demonstrates hypointense signal on T1 and T2/STIR, without enhancement likely sclerotic. These findings appear to be present on prior PET/CT and did not show hypermetabolic activity. Patchy fatty marrow change suggests a component of osteopenia. Thoracic soft tissues: The paraspinal soft tissues are within normal limits. Canal and foramina: No significant thoracic canal or foraminal stenosis within the constraints of the study. LUMBAR: Counting reference: Craniocervical and lumbosacral junctions. For the purposes of this report, Alignment: Mild dextrocurvature apex right at L2-3. Bone marrow signal/fracture: Mild superior endplate compression deformity of L4, with a small central focus of T1 hypointense, T2/STIR hyperintense signal with postcontrast enhancement. This most likely represents an associated Schmorl's node which could be recent, the lesion was present on prior PET/CT and did not show hypermetabolic activity. Patchy fatty marrow change suggests a osteopenia. Conus: The conus is within normal limits of signal intensity and morphology. Paraspinal soft tissues: Paraspinal soft tissues are within normal limits. Canal and foramina: Mild disc bulges at L4-5 and L5-S1 with mild canal stenosis at L4-5 with a contribution from ligamentum flavum/facet hypertrophy and epidural fat. Small central annular fissure and disc protrusion at L5-S1. Mild bilateral foraminal narrowing at L5-S1 with a contribution from facet hypertrophy. Sacrum and iliac wings: The visualized sacrum and iliac wings are within normal limits. The presacral soft tissues are normal in appearance. 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 MQ: [id number]_3 Contrast: Gadavist. Contrast Dose: 6 cc Route of Administration: IV COMPARISON: PET/CT 08/05/2022. RESULT: Localizer images: Bilateral small-moderate pleural effusions. CERVICAL: Counting reference: Craniocervical junction. Anatomic Variants: None. Alignment: Alignment is anatomic. Craniocervical junction: Craniocervical junction is normal. Cord: The cervical spinal cord is within normal limits of signal intensity and morphology. Bone marrow signal/fracture: No evidence of pathologic marrow infiltration. No evidence of prior fracture. No abnormal enhancement. Cervical soft tissues: The paraspinal soft tissues are within normal limits. Canal and foramina: Mild disc bulge at C5-6 and C6-7 levels with mild ventral thecal sac effacement. No significant foraminal stenosis. THORACIC: Counting reference: Craniocervical and lumbosacral junctions. For the purposes of this report, Alignment: Mildly accentuated thoracic kyphosis. Cord: The thoracic spinal cord is within normal limits of signal intensity and morphology. Bone marrow signal/fracture: Chronic compression deformities of T6 and T7. Small osseous lesion at the right inferior endplate of T7 with T1 hypointense, T2/STIR hyperintense signal, with postcontrast enhancement. Small osseous lesion at the inferior endplate of T12 demonstrates hypointense signal on T1 and T2/STIR, without enhancement likely sclerotic. These findings appear to be present on prior PET/CT and did not show hypermetabolic activity. Patchy fatty marrow change suggests a component of osteopenia. Thoracic soft tissues: The paraspinal soft tissues are within normal limits. Canal and foramina: No significant thoracic canal or foraminal stenosis within the constraints of the study. LUMBAR: Counting reference: Craniocervical and lumbosacral junctions. For the purposes of this report, Alignment: Mild dextrocurvature apex right at L2-3. Bone marrow signal/fracture: Mild superior endplate compression deformity of L4, with a small central focus of T1 hypointense, T2/STIR hyperintense signal with postcontrast enhancement. This most likely represents an associated Schmorl's node which could be recent, the lesion was present on prior PET/CT and did not show hypermetabolic activity. Patchy fatty marrow change suggests a osteopenia. Conus: The conus is within normal limits of signal intensity and morphology. Paraspinal soft tissues: Paraspinal soft tissues are within normal limits. Canal and foramina: Mild disc bulges at L4-5 and L5-S1 with mild canal stenosis at L4-5 with a contribution from ligamentum flavum/facet hypertrophy and epidural fat. Small central annular fissure and disc protrusion at L5-S1. Mild bilateral foraminal narrowing at L5-S1 with a contribution from facet hypertrophy. Sacrum and iliac wings: The visualized sacrum and iliac wings are within normal limits. The presacral soft tissues are normal in appearance. IMPRESSION IMPRESSION: No definite suspicious osseous lesion in the cervical, thoracic or lumbar spine. Chronic compression deformities of T6, T7 and L4. Small endplate lesions at T7 and L4 presumably associated Schmorl's node deformities, although these did not show hypermetabolic activity on prior PET CT attention on follow-up may be of value. Bilateral pleural effusions. Cervical Anatomic Variant: None. Assume 7 cervical vertebrae with counting from the craniocervical junction. Anatomic Thoracic/Lumbar Variant: None. L4-5 is considered the level of the iliac crest and assume there are 5 lumbar-type vertebrae. 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[facility] Transcribe Date/Time: Sep 02 2022 4:57P Dictated by : MARY STATON MD This examination was interpreted and the report reviewed and electronically signed by: MARY STATON MD on Sep 02 2022 5:13PM EST [facility] Radiology Study observation (narrative) [facility] MR Pelvis WO and W contrast Tom 09-02-2022 Radiology Study observation (narrative) [facility] MR Thoracic spine WO and W c ontrast Tom 09-02-2022 * * *Final Report* * * DATE OF EXAM: Sep 02 2022 3:50PM ROM 0326 - MRI THORACIC SPINE WO/W IVCON / PROCEDURE REASON: multiple diagnoses * * * * Physician Interpretation * * * * EXAMINATION: MRI CERVICAL SPINE WO/W IVCON, MRI THORACIC SPINE WO/W IVCON, MRI LUMBAR SPINE WO/W IVCON 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 MQ: [id number]_3 Contrast: Gadavist. Contrast Dose: 6 cc Route of Administration: IV COMPARISON: PET/CT 08/05/2022. RESULT: Localizer images: Bilateral small-moderate pleural effusions. CERVICAL: Counting reference: Craniocervical junction. Anatomic Variants: None. Alignment: Alignment is anatomic. Craniocervical junction: Craniocervical junction is normal. Cord: The cervical spinal cord is within normal limits of signal intensity and morphology. Bone marrow signal/fracture: No evidence of pathologic marrow infiltration. No evidence of prior fracture. No abnormal enhancement. Cervical soft tissues: The paraspinal soft tissues are within normal limits. Canal and foramina: Mild disc bulge at C5-6 and C6-7 levels with mild ventral thecal sac effacement. No significant foraminal stenosis. THORACIC: Counting reference: Craniocervical and lumbosacral junctions. For the purposes of this report, Alignment: Mildly accentuated thoracic kyphosis. Cord: The thoracic spinal cord is within normal limits of signal intensity and morphology. Bone marrow signal/fracture: Chronic compression deformities of T6 and T7. Small osseous lesion at the right inferior endplate of T7 with T1 hypointense, T2/STIR hyperintense signal, with postcontrast enhancement. Small osseous lesion at the inferior endplate of T12 demonstrates hypointense signal on T1 and T2/STIR, without enhancement likely sclerotic. These findings appear to be present on prior PET/CT and did not show hypermetabolic activity. Patchy fatty marrow change suggests a component of osteopenia. Thoracic soft tissues: The paraspinal soft tissues are within normal limits. Canal and foramina: No significant thoracic canal or foraminal stenosis within the constraints of the study. LUMBAR: Counting reference: Craniocervical and lumbosacral junctions. For the purposes of this report, Alignment: Mild dextrocurvature apex right at L2-3. Bone marrow signal/fracture: Mild superior endplate compression deformity of L4, with a small central focus of T1 hypointense, T2/STIR hyperintense signal with postcontrast enhancement. This most likely represents an associated Schmorl's node which could be recent, the lesion was present on prior PET/CT and did not show hypermetabolic activity. Patchy fatty marrow change suggests a osteopenia. Conus: The conus is within normal limits of signal intensity and morphology. Paraspinal soft tissues: Paraspinal soft tissues are within normal limits. Canal and foramina: Mild disc bulges at L4-5 and L5-S1 with mild canal stenosis at L4-5 with a contribution from ligamentum flavum/facet hypertrophy and epidural fat. Small central annular fissure and disc protrusion at L5-S1. Mild bilateral foraminal narrowing at L5-S1 with a contribution from facet hypertrophy. Sacrum and iliac wings: The visualized sacrum and iliac wings are within normal limits. The presacral soft tissues are normal in appearance. [facility] Provider, raghu Jackrobert luba Bal - 09/02/2022 * * *Final Report* * * DATE OF EXAM: Sep 02 2022 3:50PM ROM 0326 - MRI THORACIC SPINE WO/W IVCON / PROCEDURE REASON: multiple diagnoses * * * * Physician Interpretation * * * * EXAMINATION: MRI CERVICAL SPINE WO/W IVCON, MRI THORACIC SPINE WO/W IVCON, MRI LUMBAR SPINE WO/W IVCON 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 MQ: [id number]_3 Contrast: Gadavist. Contrast Dose: 6 cc Route of Administration: IV COMPARISON: PET/CT 08/05/2022. RESULT: Localizer images: Bilateral small-moderate pleural effusions. CERVICAL: Counting reference: Craniocervical junction. Anatomic Variants: None. Alignment: Alignment is anatomic. Craniocervical junction: Craniocervical junction is normal. Cord: The cervical spinal cord is within normal limits of signal intensity and morphology. Bone marrow signal/fracture: No evidence of pathologic marrow infiltration. No evidence of prior fracture. No abnormal enhancement. Cervical soft tissues: The paraspinal soft tissues are within normal limits. Canal and foramina: Mild disc bulge at C5-6 and C6-7 levels with mild ventral thecal sac effacement. No significant foraminal stenosis. THORACIC: Counting reference: Craniocervical and lumbosacral junctions. For the purposes of this report, Alignment: Mildly accentuated thoracic kyphosis. Cord: The thoracic spinal cord is within normal limits of signal intensity and morphology. Bone marrow signal/fracture: Chronic compression deformities of T6 and T7. Small osseous lesion at the right inferior endplate of T7 with T1 hypointense, T2/STIR hyperintense signal, with postcontrast enhancement. Small osseous lesion at the inferior endplate of T12 demonstrates hypointense signal on T1 and T2/STIR, without enhancement likely sclerotic. These findings appear to be present on prior PET/CT and did not show hypermetabolic activity. Patchy fatty marrow change suggests a component of osteopenia. Thoracic soft tissues: The paraspinal soft tissues are within normal limits. Canal and foramina: No significant thoracic canal or foraminal stenosis within the constraints of the study. LUMBAR: Counting reference: Craniocervical and lumbosacral junctions. For the purposes of this report, Alignment: Mild dextrocurvature apex right at L2-3. Bone marrow signal/fracture: Mild superior endplate compression deformity of L4, with a small central focus of T1 hypointense, T2/STIR hyperintense signal with postcontrast enhancement. This most likely represents an associated Schmorl's node which could be recent, the lesion was present on prior PET/CT and did not show hypermetabolic activity. Patchy fatty marrow change suggests a osteopenia. Conus: The conus is within normal limits of signal intensity and morphology. Paraspinal soft tissues: Paraspinal soft tissues are within normal limits. Canal and foramina: Mild disc bulges at L4-5 and L5-S1 with mild canal stenosis at L4-5 with a contribution from ligamentum flavum/facet hypertrophy and epidural fat. Small central annular fissure and disc protrusion at L5-S1. Mild bilateral foraminal narrowing at L5-S1 with a contribution from facet hypertrophy. Sacrum and iliac wings: The visualized sacrum and iliac wings are within normal limits. The presacral soft tissues are normal in appearance. IMPRESSION IMPRESSION: No definite suspicious osseous lesion in the cervical, thoracic or lumbar spine. Chronic compression deformities of T6, T7 and L4. Small endplate lesions at T7 and L4 presumably associated Schmorl's node deformities, although these did not show hypermetabolic activity on prior PET CT attention on follow-up may be of value. Bilateral pleural effusions. Cervical Anatomic Variant: None. Assume 7 cervical vertebrae with counting from the craniocervical junction. Anatomic Thoracic/Lumbar Variant: None. L4-5 is considered the level of the iliac crest and assume there are 5 lumbar-type vertebrae. 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[facility] Transcribe Date/Time: Sep 02 2022 4:57P Dictated by : MARY STATON MD This examination was interpreted and the report reviewed and electronically signed by: MARY STATON MD on Sep 02 2022 5:13PM EST [facility] Radiology Study observation (narrative) [facility] MRI CERVICAL SPINE WO/W IVCO Non 09-02-2022 MRI CERVICAL SPINE WO/W IVCON * * *Final Report* * * DATE OF EXAM: Sep 02 2022 4:03PM ROM 0298 - MRI CERVICAL SPINE WO/W IVCON / PROCEDURE REASON: multiple diagnoses * * * * Physician Interpretation * * * * EXAMINATION: MRI CERVICAL SPINE WO/W IVCON, MRI THORACIC SPINE WO/W IVCON, MRI LUMBAR SPINE WO/W IVCON 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 MQ: [id number]_3 Contrast: Gadavist. Contrast Dose: 6 cc Route of Administration: IV COMPARISON: PET/CT 08/05/2022. RESULT: Localizer images: Bilateral small-moderate pleural effusions. CERVICAL: Counting reference: Craniocervical junction. Anatomic Variants: None. Alignment: Alignment is anatomic. Craniocervical junction: Craniocervical junction is normal. Cord: The cervical spinal cord is within normal limits of signal intensity and morphology. Bone marrow signal/fracture: No evidence of pathologic marrow infiltration. No evidence of prior fracture. No abnormal enhancement. Cervical soft tissues: The paraspinal soft tissues are within normal limits. Canal and foramina: Mild disc bulge at C5-6 and C6-7 levels with mild ventral thecal sac effacement. No significant foraminal stenosis. THORACIC: Counting reference: Craniocervical and lumbosacral junctions. For the purposes of this report, Alignment: Mildly accentuated thoracic kyphosis. Cord: The thoracic spinal cord is within normal limits of signal intensity and morphology. Bone marrow signal/fracture: Chronic compression deformities of T6 and T7. Small osseous lesion at the right inferior endplate of T7 with T1 hypointense, T2/STIR hyperintense signal, with postcontrast enhancement. Small osseous lesion at the inferior endplate of T12 demonstrates hypointense signal on T1 and T2/STIR, without enhancement likely sclerotic. These findings appear to be present on prior PET/CT and did not show hypermetabolic activity. Patchy fatty marrow change suggests a component of osteopenia. Thoracic soft tissues: The paraspinal soft tissues are within normal limits. Canal and foramina: No significant thoracic canal or foraminal stenosis within the constraints of the study. LUMBAR: Counting reference: Craniocervical and lumbosacral junctions. For the purposes of this report, Alignment: Mild dextrocurvature apex right at L2-3. Bone marrow signal/fracture: Mild superior endplate compression deformity of L4, with a small central focus of T1 hypointense, T2/STIR hyperintense signal with postcontrast enhancement. This most likely represents an associated Schmorl's node which could be recent, the lesion was present on prior PET/CT and did not show hypermetabolic activity. Patchy fatty marrow change suggests a osteopenia. Conus: The conus is within normal limits of signal intensity and morphology. Paraspinal soft tissues: Paraspinal soft tissues are within normal limits. Canal and foramina: Mild disc bulges at L4-5 and L5-S1 with mild canal stenosis at L4-5 with a contribution from ligamentum flavum/facet hypertrophy and epidural fat. Small central annular fissure and disc protrusion at L5-S1. Mild bilateral foraminal narrowing at L5-S1 with a contribution from facet hypertrophy. Sacrum and iliac wings: The visualized sacrum and iliac wings are within normal limits. The presacral soft tissues are normal in appearance. IMPRESSION: No definite suspicious osseous lesion in the cervical, thoracic or lumbar spine. Chronic compression deformities of T6, T7 and L4. Small endplate lesions at T7 and L4 presumably associated Schmorl's node deformities, although these did not show hypermetabolic activity on prior PET CT attention on follow-up may be of value. Bilateral pleural effusions. Cervical Anatomic Variant: None. Assume 7 cervical vertebrae with counting from the craniocervical junction. Anatomic Thoracic/Lumbar Variant: None. L4-5 is considered the level of the iliac crest and assume there are 5 lumbar-type vertebrae. 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 Date/Time: Sep 02 2022 4:57P Dictated by : MARY STATON MD This examination was interpreted and the report reviewed and electronically signed by: MARY STATON MD on Sep 02 2022 5:13PM EST [id number] [facility] MRI LUMBAR SPINE WO/W IVCONo n 09-02-2022 MRI LUMBAR SPINE WO/W IVCON * * *Final Report* * * DATE OF EXAM: Sep 02 2022 3:32PM ROM 0304 - MRI LUMBAR SPINE WO/W IVCON / PROCEDURE REASON: multiple diagnoses * * * * Physician Interpretation * * * * EXAMINATION: MRI CERVICAL SPINE WO/W IVCON, MRI THORACIC SPINE WO/W IVCON, MRI LUMBAR SPINE WO/W IVCON 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 MQ: [id number] Contrast: Gadavist. Contrast Dose: 6 cc Route of Administration: IV COMPARISON: PET/CT 08/05/2022. RESULT: Localizer images: Bilateral small-moderate pleural effusions. CERVICAL: Counting reference: Craniocervical junction. Anatomic Variants: None. Alignment: Alignment is anatomic. Craniocervical junction: Craniocervical junction is normal. Cord: The cervical spinal cord is within normal limits of signal intensity and morphology. Bone marrow signal/fracture: No evidence of pathologic marrow infiltration. No evidence of prior fracture. No abnormal enhancement. Cervical soft tissues: The paraspinal soft tissues are within normal limits. Canal and foramina: Mild disc bulge at C5-6 and C6-7 levels with mild ventral thecal sac effacement. No significant foraminal stenosis. THORACIC: Counting reference: Craniocervical and lumbosacral junctions. For the purposes of this report, Alignment: Mildly accentuated thoracic kyphosis. Cord: The thoracic spinal cord is within normal limits of signal intensity and morphology. Bone marrow signal/fracture: Chronic compression deformities of T6 and T7. Small osseous lesion at the right inferior endplate of T7 with T1 hypointense, T2/STIR hyperintense signal, with postcontrast enhancement. Small osseous lesion at the inferior endplate of T12 demonstrates hypointense signal on T1 and T2/STIR, without enhancement likely sclerotic. These findings appear to be present on prior PET/CT and did not show hypermetabolic activity. Patchy fatty marrow change suggests a component of osteopenia. Thoracic soft tissues: The paraspinal soft tissues are within normal limits. Canal and foramina: No significant thoracic canal or foraminal stenosis within the constraints of the study. LUMBAR: Counting reference: Craniocervical and lumbosacral junctions. For the purposes of this report, Alignment: Mild dextrocurvature apex right at L2-3. Bone marrow signal/fracture: Mild superior endplate compression deformity of L4, with a small central focus of T1 hypointense, T2/STIR hyperintense signal with postcontrast enhancement. This most likely represents an associated Schmorl's node which could be recent, the lesion was present on prior PET/CT and did not show hypermetabolic activity. Patchy fatty marrow change suggests a osteopenia. Conus: The conus is within normal limits of signal intensity and morphology. Paraspinal soft tissues: Paraspinal soft tissues are within normal limits. Canal and foramina: Mild disc bulges at L4-5 and L5-S1 with mild canal stenosis at L4-5 with a contribution from ligamentum flavum/facet hypertrophy and epidural fat. Small central annular fissure and disc protrusion at L5-S1. Mild bilateral foraminal narrowing at L5-S1 with a contribution from facet hypertrophy. Sacrum and iliac wings: The visualized sacrum and iliac wings are within normal limits. The presacral soft tissues are normal in appearance. IMPRESSION: No definite suspicious osseous lesion in the cervical, thoracic or lumbar spine. Chronic compression deformities of T6, T7 and L4. Small endplate lesions at T7 and L4 presumably associated Schmorl's node deformities, although these did not show hypermetabolic activity on prior PET CT attention on follow-up may be of value. Bilateral pleural effusions. Cervical Anatomic Variant: None. Assume 7 cervical vertebrae with counting from the craniocervical junction. Anatomic Thoracic/Lumbar Variant: None. L4-5 is considered the level of the iliac crest and assume there are 5 lumbar-type vertebrae. 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[facility] Transcribe Date/Time: Sep 02 2022 4:57P Dictated by : MARY STATON MD This examination was interpreted and the report reviewed and electronically signed by: MARY STATON MD on Sep 02 2022 5:13PM EST [id number] [facility] MRI PELVIS WO/W IVCONon 06-0 MRI PELVIS WO/W IVCON * * *Final Report* * * DATE OF EXAM: Sep 02 2022 3:05PM ROM 0742 - MRI PELVIS WO/W IVCON / PROCEDURE REASON: Neoplasm of unspecified behavior of bone, soft tissue, and skin * * * * Physician Interpretation * * * * MRI PELVIS WITHOUT AND WITH CONTRAST Clinical Statement: Neoplasm of unspecified behavior of bone, soft tissue, and skin. 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 Comparison: Whole body PET CT 08/05/2022. TECHNIQUE: Long and short axis fat and water weighted MR images were obtained without contrast. Postcontrast enhanced fat-suppressed T1-weighted multiplanar images were obtained following the uneventful administration of 6 cc Gadavist intravenously. FINDINGS: The subcutaneous soft tissues are edematous, primarily in the flank regions, right greater than left gluteal regions and visualized upper left thigh. The muscles appear normal in signal and morphology. No enhancing soft tissue mass or fluid collection identified. No lymphadenopathy. There is an enhancing intramedullary lesion within the posterior right ilium measuring 2.2 cm. The lesion is predominantly isointense to skeletal muscle on T1-weighted images and is increased in signal and T2-weighted images. There is no evidence of endosteal scalloping, cortical breakthrough or periosteal reaction. There is a similar-appearing although less well-defined region of T2 signal hyperintensity and enhancement within the posterior left ilium measuring up to 2.2 cm which shows only mild corresponding T1 marrow signal changes. No other bone lesions identified. The hip joints, pubic symphysis and SI joint spaces are unremarkable. IMPRESSION: Bilateral enhancing ileal lesions as above, which are likely reflective of myelomatous lesions given the patient's history. No soft tissue mass identified. 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 Date/Time: Sep 05 2022 10:26A Dictated by : RICHA LOPEZ MD This examination was interpreted and the report reviewed and electronically signed by: RICHA LOPEZ MD on Sep 05 2022 10:37AM EST [id number] [facility] MRI THORACIC SPINE WO/W IVCO Non 09-02-2022 MRI THORACIC SPINE WO/W IVCON * * *Final Report* * * DATE OF EXAM: Sep 02 2022 3:50PM ROM 0326 - MRI THORACIC SPINE WO/W IVCON / PROCEDURE REASON: multiple diagnoses * * * * Physician Interpretation * * * * EXAMINATION: MRI CERVICAL SPINE WO/W IVCON, MRI THORACIC SPINE WO/W IVCON, MRI LUMBAR SPINE WO/W IVCON 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 MQ: [id number] Contrast: Gadavist. Contrast Dose: 6 cc Route of Administration: IV COMPARISON: PET/CT 08/05/2022. RESULT: Localizer images: Bilateral small-moderate pleural effusions. CERVICAL: Counting reference: Craniocervical junction. Anatomic Variants: None. Alignment: Alignment is anatomic. Craniocervical junction: Craniocervical junction is normal. Cord: The cervical spinal cord is within normal limits of signal intensity and morphology. Bone marrow signal/fracture: No evidence of pathologic marrow infiltration. No evidence of prior fracture. No abnormal enhancement. Cervical soft tissues: The paraspinal soft tissues are within normal limits. Canal and foramina: Mild disc bulge at C5-6 and C6-7 levels with mild ventral thecal sac effacement. No significant foraminal stenosis. THORACIC: Counting reference: Craniocervical and lumbosacral junctions. For the purposes of this report, Alignment: Mildly accentuated thoracic kyphosis. Cord: The thoracic spinal cord is within normal limits of signal intensity and morphology. Bone marrow signal/fracture: Chronic compression deformities of T6 and T7. Small osseous lesion at the right inferior endplate of T7 with T1 hypointense, T2/STIR hyperintense signal, with postcontrast enhancement. Small osseous lesion at the inferior endplate of T12 demonstrates hypointense signal on T1 and T2/STIR, without enhancement likely sclerotic. These findings appear to be present on prior PET/CT and did not show hypermetabolic activity. Patchy fatty marrow change suggests a component of osteopenia. Thoracic soft tissues: The paraspinal soft tissues are within normal limits. Canal and foramina: No significant thoracic canal or foraminal stenosis within the constraints of the study. LUMBAR: Counting reference: Craniocervical and lumbosacral junctions. For the purposes of this report, Alignment: Mild dextrocurvature apex right at L2-3. Bone marrow signal/fracture: Mild superior endplate compression deformity of L4, with a small central focus of T1 hypointense, T2/STIR hyperintense signal with postcontrast enhancement. This most likely represents an associated Schmorl's node which could be recent, the lesion was present on prior PET/CT and did not show hypermetabolic activity. Patchy fatty marrow change suggests a osteopenia. Conus: The conus is within normal limits of signal intensity and morphology. Paraspinal soft tissues: Paraspinal soft tissues are within normal limits. Canal and foramina: Mild disc bulges at L4-5 and L5-S1 with mild canal stenosis at L4-5 with a contribution from ligamentum flavum/facet hypertrophy and epidural fat. Small central annular fissure and disc protrusion at L5-S1. Mild bilateral foraminal narrowing at L5-S1 with a contribution from facet hypertrophy. Sacrum and iliac wings: The visualized sacrum and iliac wings are within normal limits. The presacral soft tissues are normal in appearance. IMPRESSION: No definite suspicious osseous lesion in the cervical, thoracic or lumbar spine. Chronic compression deformities of T6, T7 and L4. Small endplate lesions at T7 and L4 presumably associated Schmorl's node deformities, although these did not show hypermetabolic activity on prior PET CT attention on follow-up may be of value. Bilateral pleural effusions. Cervical Anatomic Variant: None. Assume 7 cervical vertebrae with counting from the craniocervical junction. Anatomic Thoracic/Lumbar Variant: None. L4-5 is considered the level of the iliac crest and assume there are 5 lumbar-type vertebrae. 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 Chronic compression deformities of T6, T7 and L4. Small endplate lesions at T7 and L4 presumably associated Schmorl's node deformities, although these did not show hypermetabolic activity on prior PET CT attention on follow-up may be of value. Bilateral pleural effusions. Cervical Anatomic Variant: None. Assume 7 cervical vertebrae with counting from the craniocervical junction. Anatomic Thoracic/Lumbar Variant: None. L4-5 is considered the level of the iliac crest and assume there are 5 lumbar-type vertebrae. 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[facility] Transcribe Date/Time: Sep 02 2022 4:57P Dictated by : MARY STATON MD This examination was interpreted and the report reviewed and electronically signed by: MARY STATON MD on Sep 02 2022 5:13PM [facility] RADIOLOGY [facility] FLOW CYTOMETRY BONE MARROW H OLD (BMHOLD)on 08-27-2022 Flow Cytometry Order Status See Results in chart under F case ID [facility] GLUCOSE, BLOOD (POC)on 08-05 Glucose [Mass/Vol] 85 mg/dL 74 - 99 mg/dL [facility] NM PET/CT WHOLE BODY INITIAL on 08-05-2022 Radiology Result ACTIONABLE Abnormal [facility] Alpha tocopherol [Mass/Vol]o n 07-09-2022 Beta+gamma tocopherol [Mass/Vol] 0.6 mg/L 0.3 - 3.2 mg/L [facility] COPPER BLOODon 07-09-2022 Copper [Mass/Vol] 96 ug/dL 80 - 155 ug/dL [facility] VITAMIN E/TOCOPHEROLon 07-09 Alpha tocopherol [Mass/Vol] 8.6 mg/L 6.0 - 23.0 mg/L [facility] C-REACTIVE PROTEIN (CRP)on 0 07-08-2022 CRP [Mass/Vol] <0.9 mg/dL [facility] CBC W Auto Differential pane l (Bld)on 07-08-2022 Basophils (Bld) [#/Vol] <0.11 k/uL [facility] Basophils/100 WBC (Bld) 0.2 % [facility] Differential cell count method Nom (Bld) Auto [facility] Eosinophils (Bld) [#/Vol] 0.03 10*3/uL <0.46 k/uL [facility] Eosinophils/100 WBC (Bld) 0.6 % [facility] Erythrocyte distribution width (RBC) [Ratio] 21.2 % High 11.5 - 15.0 % [facility] Hematocrit (Bld) [Volume fraction] 27.1 % Low 36.0 - 46.0 % [facility] Hemoglobin (Bld) [Mass/Vol] 9.2 g/dL Low 11.5 - 15.5 g/dL [facility] Immature granulocytes (Bld) [#/Vol] <0.10 k/uL [facility] Immature granulocytes/100 WBC (Bld) 0.2 % [facility] Lymphocytes (Bld) [#/Vol] 0.67 10*3/uL Low 1.00 - 4.00 k/uL [facility] Lymphocytes/100 WBC (Bld) 14.1 % [facility] MCH (RBC) [Entitic mass] 32.5 pg 26. 0 - 34.0 pg [facility] MCHC (RBC) [Mass/Vol] 33.9 g/dL 30.5 - 36.0 g/dL [facility] MCV (RBC) [Entitic vol] 95.8 fL 80.0 - 100.0 fL [facility] Monocytes (Bld) [#/Vol] 0.37 10*3/uL <0.87 k/uL [facility] Monocytes/100 WBC (Bld) 7.8 % [facility] Neutrophils (Bld) [#/Vol] 3.67 10*3/uL 1.45 - 7.50 k/uL [facility] Neutrophils/100 WBC (Bld) 77.1 % [facility] Nucleated RBC (Bld) [#/Vol] 0.02 10*3/uL High <0.01 k/uL [facility] Nucleated RBC/100 WBC (Bld) [Ratio] 0.4 /100 WBC [facility] Platelet mean volume (Bld) [Entitic vol] 12.5 fL 9.0 - 12.7 fL [facility] Platelets (Bld) [#/Vol] 205 10*3/uL 150 - 400 k/uL [facility] RBC (Bld) [#/Vol] 2.83 10*6/uL Low 3.90 - 5.2 0 m/uL [facility] WBC (Bld) [#/Vol] 4.76 10*3/uL 3.70 - 11. 00 k/uL [facility] CORTISOL BLDon 07-08-2022 Cortisol [Mass/Vol] 10.4 ug/dL 4.8 - 19 .5 ug/dL [facility] FLOW CYTOMETRY BONE MARROW H OLD (BMHOLD)on 07-08-2022 Flow Cytometry Order Status See Results in chart under F case ID [facility] PREALBUMIN BLDon 07-08-2022 Prealbumin [Mass/Vol] 34 mg/dL 17 - 3 6 mg/dL [facility] MONOCLONAL PROT 24 UR W/INTE RPon 06-29-2022 Interpretation (PA) An atypical restri cted band is present in the lambda region. 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 [facility] M protein is present. Abnormal No M protein is identified. [facility] Staff Review [facility] Reviewed by Codie Adames MD [facility] B2 MICROGLOBULIN Bon 023 [id number] [Mass/Vol] 2.7 ug/mL High 0.8 - 2.4 mg/L [facility] CBC W Auto Differential pane l (Bld)on 06-21-2022 Basophils (Bld) [#/Vol] <0.11 k/uL [facility] Basophils/100 WBC (Bld) 0.4 % [facility] Differential cell count method Nom (Bld) Auto [facility] Eosinophils (Bld) [#/Vol] <0.46 k/uL [facility] Eosinophils/100 WBC (Bld) 0.4 % [facility] Erythrocyte distribution width (RBC) [Ratio] 22.4 % High 11.5 - 15.0 % [facility] Hematocrit (Bld) [Volume fraction] 26.4 % Low 36.0 - 46.0 % [facility] Hemoglobin (Bld) [Mass/Vol] 9.1 g/dL Low 11.5 - 15.5 g/dL [facility] Immature granulocytes (Bld) [#/Vol] <0.10 k/uL [facility] Immature granulocytes/100 WBC (Bld) 0.2 % [facility] Lymphocytes (Bld) [#/Vol] 0.43 10*3/uL Low 1.00 - 4.00 k/uL [facility] Lymphocytes/100 WBC (Bld) 8.5 % [facility] MCH (RBC) [Entitic mass] 31.7 pg 26. 0 - 34.0 pg [facility] MCHC (RBC) [Mass/Vol] 34.5 g/dL 30.5 - 36.0 g/dL [facility] MCV (RBC) [Entitic vol] 92.0 fL 80.0 - 100.0 fL [facility] Monocytes (Bld) [#/Vol] 0.28 10*3/uL <0.87 k/uL [facility] Monocytes/100 WBC (Bld) 5.6 % [facility] Neutrophils (Bld) [#/Vol] 4.27 10*3/uL 1.45 - 7.50 k/uL [facility] Neutrophils/100 WBC (Bld) 84.9 % [facility] Nucleated RBC (Bld) [#/Vol] 0.04 10*3/uL High <0.01 k/uL [facility] Nucleated RBC/100 WBC (Bld) [Ratio] 0.8 /100 WBC [facility] Platelet mean volume (Bld) [Entitic vol] 12.1 fL 9.0 - 12.7 fL [facility] Platelets (Bld) [#/Vol] 179 10*3/uL 150 - 400 k/uL [facility] RBC (Bld) [#/Vol] 2.87 10*6/uL Low 3.90 - 5.2 0 m/uL [facility] WBC (Bld) [#/Vol] 5.03 10*3/uL 3.70 - 11. 00 k/uL [facility] Calcium.ionized [Moles/Vol]o n 06-21-2022 Calcium.ionized (Bld) [Mass/Vol] 1.21 mmol/L 1.08 - 1.30 mmol/L [facility] Calcium.ionized adjusted to pH 7.4 (Bld) [Moles/Vol] 1.21 mmol/L 1.08 - 1.30 mmol/L [facility] Comprehensive metabolic 2000 panelon 06-21-2022 Albumin [Mass/Vol] 2.9 g/dL Low 3.9 - 4.9 g/dL [facility] ALP [Catalytic activity/Vol] 81 U/L 34 - 123 U/L [facility] ALT [Catalytic activity/Vol] 53 U/L High 7 - 38 U/L [facility] Anion gap [Moles/Vol] 5 mmol/L Low 9 - 18 mmol/L [facility] AST [Catalytic activity/Vol] 40 U/L High 13 - 35 U/L [facility] Bilirubin [Mass/Vol] Low 0.2 - 1 .3 mg/dL [facility] Calcium [Mass/Vol] 8.8 mg/dL 8.5 - 10. 2 mg/dL [facility] Chloride [Moles/Vol] 100 mmol/L 97 - 10 5 mmol/L [facility] CO2 [Moles/Vol] 34 mmol/L High 22 - 30 mmol/L [facility] Creatinine [Mass/Vol] 0.92 mg/dL 0.58 - 0.96 mg/dL [facility] Estimated Glomerular Filtration Rate 73 mL/min/1.73m >=60 mL/min/1.73m [facility] Glucose [Mass/Vol] 99 mg/dL 74 - 99 mg/dL [facility] Potassium [Moles/Vol] 3.9 mmol/L 3.7 - 5.1 mmol/L [facility] Protein [Mass/Vol] 5.0 g/dL Low 6.3 - 8.0 g/dL [facility] Sodium [Moles/Vol] 139 mmol/L 136 - 144 mmol/L [facility] Urea nitrogen [Mass/Vol] 36 mg/dL High 7 - 21 mg/d L [facility] Iron and Iron binding capaci ty panelon 06-21-2022 Iron [Mass/Vol] 104 ug/dL 41 - 186 ug/dL [facility] [facility] Iron binding capacity [Mass/Vol] 356 ug/dL 232 - 386 ug/dL [facility] Iron/TIBC [Molar ratio] 29.2 % 15.0 - 57.0 % [facility] LD LACTATE DEHYDROon 023 LDH [Catalytic activity/Vol] 156 U/L 135 - 214 U/L [facility] PHOSPHORUS INORGANICon 06-21 Phosphate [Mass/Vol] 3.1 mg/dL 2.7 - 4 .8 mg/dL [facility] TSH BLDon 06-21-2022 TSH Qn 4.860 m[IU]/L High 0.270 - 4.200 mIU/L [facility] URIC ACID BLOODon 06-21-2022 Urate [Mass/Vol] 7.9 mg/dL High 2.5 - 6.6 mg/dL [facility] XR BONE SURVEY ROUTINEon [facility] AMMONIA BLDon 06-03-2022 Ammonia (P) [Moles/Vol] 14 umol/L 11 - 51 umol/L [facility] AMYLASE BLDon 06-03-2022 Amylase [Catalytic activity/Vol] 146 U/L High 30 - 104 U/L [facility] B2 MICROGLOBULIN Bon 023 [id number]-[id number] [Mass/Vol] 2.6 ug/mL High 0.8 - 2.4 mg/L [facility] C-REACTIVE PROTEIN (CRP)on 0 06-03-2022 CRP [Mass/Vol] <0.9 mg/dL [facility] C3 COMPLEMENT [facility] 06-04-19 Complement C3 [Mass/Vol] 129 mg/dL 86 - 166 mg/dL [facility] C4 COMPLEMENT [facility] 06-04-19 23 Complement C4 [Mass/Vol] 29 mg/dL 13 - 46 mg/dL [facility] CA 125 [facility] 06-03-2022 Cancer Ag 125 Qn 50 [arb'U]/mL High <39 U/mL [facility] CERULOPLASMIN [facility] 06-04-19 23 Ceruloplasmin [Mass/Vol] 22 mg/dL 16 - 45 mg/dL [facility] CK CREATINE KINASEon CK [Catalytic activity/Vol] 239 U/L High 42 - 196 U/L [facility] ESR Westergren method (Bld) [Velocity]on 06-03-2022 ESR (Bld) [Velocity] 46 mm/h High 0 - 20 mm/hr Cl [facility] FOLATE SERUMon 06-03-2022 Folate [Mass/Vol] 7.7 ng/mL >4.7 ng/mL [facility] Iron and Iron binding capaci ty panelon 06-03-2022 Iron [Mass/Vol] 386 ug/dL High 41 - 186 ug/dL [facility] Iron binding capacity [Mass/Vol] 446 ug/dL High 232 - 386 ug/dL [facility] Iron/TIBC [Molar ratio] 86.5 % High 15.0 - 57.0 % [facility] LD LACTATE DEHYDROon 023 LDH [Catalytic activity/Vol] 190 U/L 135 - 214 U/L [facility] LIPASE BLDon 06-03-2022 Lipase [Catalytic activity/Vol] 117 U/L High 16 - 61 U/L [facility] NT PRO BNPon 06-03-2022 Natriuretic peptide.B prohormone N-Terminal [Mass/Vol] 118 pg/mL <125 pg/mL [facility] T3 FREE BLDon 06-03-2022 Free T3 [Mass/Vol] 1.8 pg/mL Low 2.3 - 4.1 pg/mL [facility] TSH BLDon 06-03-2022 TSH Qn 5.930 m[IU]/L High 0.270 - 4.200 mIU/L [facility] Urinalysis complete panel (U )on 06-03-2022 Bilirubin Ql (U) Negative Negative [facility] Clarity (Unsp spec) Clear Clear [facility] Color (U) Colorless Yellow [facility] Glucose Test strip (U) [Mass/Vol] Negative Trace, Negative [facility] Hemoglobin Ql (U) Negative Negative, Trace [facility] Ketones Ql (U) Negative Trace, Negative [facility] Leukocyte esterase Test strip Ql (U) Negative Negative, 25 Ernesot/uL [facility] Nitrite Ql (U) Negative Negative [facility] pH (U) 5.5 [pH] 5.0 - 8.0 [facility] Protein (U) [Mass/Vol] Negative Trace , Negative [facility] RBC LM.HPF (Urine sed) [#/Area] 0-3 /HPF 0-3 /HPF [facility] Specific gravity (U) [Rel density] 1.019 1.005 - 1.030 [facility] Urobilinogen Ql (U) Negative Negative [facility] WBC LM.HPF (Urine sed) [#/Area] 0-5 /HPF 0-5 /HPF [facility] VITAMIN B12 BLOODon 06-04-19 Cobalamin (Vitamin B12) [Mass/Vol] 1430 pg/mL High 232 - 1,245 pg/mL [facility] Absolute lymphocyte countOrd ered By: Dr. Kolb on 05-20-2022 Lymphocytes Auto (Unsp spec) [#/Vol] 0.64 10*3/uL 0.83-4.51 [facility] Albumin Elph [Mass/Vol]Order ed By: Dr. Kolb on 05-20-2022 Albumin [Mass/Vol] 2.5 g/dL 2.9-4.4 [facility] Basophil percentageOrdered B y: Dr. Kolb on 05-20-2022 Basophil percentage 4.5 mg/dL 2.5-4.9 [facility] Basophils/100 WBC (Bld) 0.3 % 0-1 [facility] Bilirubin [Mass/Vol] 0.10 mg/dL 0.20-1.00 [facility] Comment on above: For patients on eltr ombopag therapy, use of [place] TBIL is not recommended. Chloride [Moles/Vol] 106 mmol/L 98-107 [facility] Eosinophils/100 WBC (Bld) 0.3 % 0-5 [facility] Glucose [Mass/Vol] 139 mg/dL 74-106 [facility] Comment on above: Fasting Glucose resu lt greater than or equal to 126 mg/dL suggests DIABETES MELLITUS per A.D.A. criteria. LDH [Catalytic activity/Vol] 219 U/L 84-246 [facility] Neutrophils (Bld) [#/Vol] 6.5 10*3/uL 2.0-7.7 [facility] Neutrophils/100 WBC (Bld) 86.6 % 47-70 [facility] Potassium [Moles/Vol] 4.4 mmol/L 3.5-5.1 [facility] Protein [Mass/Vol] 5.5 g/dL 6.4-8.2 [facility] Sodium [Moles/Vol] 141 mmol/L 136-145 [facility] WBC (Bld) [#/Vol] 7.5 10*3/uL 4.4-11.0 [facility] Blood erythrocytes count (nu mber/volume)Ordered By: Dr. Kolb on 05-20-2022 RBC (Bld) [#/Vol] 3.43 10*6/uL 4.2-5.4 [facility] Blood hemoglobin measurement (mass/volume)Ordered By: Dr. Kolb on 05-20-2022 Hemoglobin (Bld) [Mass/Vol] 10.8 g/dL 12.0-15.0 [facility] Blood lymphocytes/100 leukoc ytesOrdered By: Dr. Kolb on 05-20-2022 Lymphocytes/100 WBC (Bld) 8.5 % 19-41 [facility] Blood monocytes/100 leukocyt esOrdered By: Dr. Kolb on 05-20-2022 Monocytes/100 WBC (Bld) 3.9 % 0-10 [facility] Blood platelet mean volumeOr dered By: Dr. Kolb on 05-20-2022 Platelet mean volume (Bld) [Entitic vol] 11.6 fL 6.2-12.0 [facility] Determination of erythrocyte mean corpuscular volume (MCV)Ordered By: Dr. Kolb on 05-20-2022 MCV (RBC) [Entitic vol] 94.8 fL 81-99 [facility] Hematocrit Auto (Bld) [Volum e fraction]Ordered By: Dr. Kolb on 05-20-2022 Hematocrit (Bld) [Volume fraction] 32.5 % 37-47 [facility] Hemoglobin in reticulocytes (mass per reticulocyte)Ordered By: Dr. Kolb on 05-20-2022 Hemoglobin (Reticulocytes) [Entitic mass] 34.7 pg 30-35 [facility] Interpretation of serum or p lasma protein pattern by immunofixation (narrative resultOrdered By: Dr. Kolb on 05-20-2022 Protein Fractions Immunofixation Shayne [Interp] See comment [facility] Comment on above: NOT OBSERVED Iron measurement (mass/mass) Ordered By: Dr. Kolb on 05-20-2022 Iron (Unsp spec) [Mass/Mass] 34 ug/dL 50-170 [facility] Laboratory - Chemistry and C hemistry - challengeOrdered By: Dr. Kolb on 05-20-2022 ALP [Catalytic activity/Vol] 73 U/L 45-117 [facility] ALT [Catalytic activity/Vol] 76 U/L 13-56 [facility] CO2 [Moles/Vol] 32.0 mmol/L 21.0-32.0 [facility] Free T4 [Mass/Vol] 1.10 ng/dL 0.76-1.46 [facility] Globulin (S) [Mass/Vol] 3.1 g/dL 2.2-4.2 [facility] Magnesium [Mass/Vol] 1.9 mg/dL 1.6-2.6 [facility] Urea nitrogen/Creatinine [Mass ratio] 50.4 mg/mg 10-20 [facility] Laboratory - Hematology and Cell countsOrdered By: Dr. Kolb on 05-20-2022 Erythrocyte distribution width (RBC) [Entitic vol] 58.9 fL 35.1-43.9 [facility] Erythrocyte distribution width (RBC) [Ratio] 17.7 % 11.6-14.6 [facility] Immature granulocytes/100 WBC (Bld) 0.400 % 0.0-0.9 [facility] Comment on above: IG% - Immature Granu locytes (promyelocytes, myelocytes and metamyelocytes) > 1% indicates that a LEFT SHIFT is Present. MCH (RBC) [Entitic mass] 31.5 pg 27.0-32.0 [facility] Nucleated RBC/100 WBC (Bld) [Ratio] 0.3 % 0-5 [facility] MCHC Auto (RBC) [Mass/Vol]Or dered By: Dr. Kolb on 05-20-2022 MCHC (RBC) [Mass/Vol] 33.2 g/dL 32-36 [facility] No Panel InformationOrdered By: Dr. Kolb on 05-20-2022 Addendum Document Comment . [facility] Comment on above: Protein electrophore sis scan will follow via computer,mail, or instructional support technician delivery. Estimated GFR (MDRD) Amer 88 mL/min >60 [facility] Comment on above: GFR Calc Estimated GFR (MDRD) Non-Af Amer 73 mL/min >60 [facility] Comment on above: Non- GFR Calc Free Lambda Light Chains, Quant 359.1 mg/L 5.7-26.3 [facility] Immature Reticulocyte Fraction 35.70 % 3.00-15.90 [facility] Reticulocyte Count 2.32 % 0.5-1.5 [facility] Thyroid Stimulating Hormone (TSH) 11.40 uIU/mL 0.358-3.74 [facility] Total Iron Binding Capacity 419 ug/dL 250-450 [facility] Vitamin B12 Level > 2000 pg/mL 211-911 [facility] Platelets bldOrdered By: Dr. Kolb on 05-20-2022 Platelets (Bld) [#/Vol] 245 10*3/uL 150-450 [facility] Serum [id number]-[id number] measu rement by electrophoresisOrdered By: Dr. Kolb on 05-20-2022 Alpha 1 globulin Elph [Mass/Vol] 0.4 g/dL 0.0-0.4 [facility] Alpha 1 globulin Elph [Mass/Vol] 0.8 g/dL 0.4-1.0 [facility] Serum globulin measurement ( mass/volume)Ordered By: Dr. Kolb on 05-20-2022 Globulin (S) [Mass/Vol] 2.4 g/dL 2.2-3.9 [facility] Serum immunoglobulin kappa l ight chains/immunoglobulin lambda light chains mass ratioOrdered By: Dr. Kolb on 05-20-2022 Immunoglobulin light chains.kappa/Immunoglobu dariana light chains.lambda (S) [Mass ratio] 0.13 0.26-1.65 [facility] Comment on above: Performed at: [place] [id number] Director: Ortiz Hayden PhD, Phone: [phone] Serum or plasma IgA measurem ent (mass/volume)Ordered By: Dr. Kolb on 05-20-2022 IgA [Mass/Vol] 40 mg/dL 87-352 [facility] Comment on above: Result confirmed on concentration. Serum or plasma IgG measurem ent (mass/volume)Ordered By: Dr. Kolb on 05-20-2022 IgG [Mass/Vol] 251 mg/dL [phone] [facility] Comment on above: Result confirmed on concentration. Serum or plasma IgM measurem ent (mass/volume)Ordered By: Dr. Kolb on 05-20-2022 IgM [Mass/Vol] 18 mg/dL 26-217 [facility] Comment on above: Result confirmed on concentration. Serum or plasma albumin vickie urement (mass/volume)Ordered By: Dr. Kolb on 05-20-2022 Albumin [Mass/Vol] 2.4 g/dL 3.2-5.0 [facility] Serum or plasma albumin/glob ulin mass ratioOrdered By: Dr. Kolb on 05-20-2022 Albumin/Globulin [Mass ratio] 0.8 {ratio} 0.9-2.4 [facility] Serum or plasma beta globuli n measurement by electrophoresis (mass/volume)Ordered By: Dr. Kolb on 05-20-2022 Beta globulin Elph [Mass/Vol] 0.9 g/dL 0.7-1.3 [facility] Serum or plasma calcium vickie urement (mass/volume)Ordered By: Dr. Kolb on 05-20-2022 Calcium [Mass/Vol] 9.5 mg/dL 8.5-10.1 [facility] Serum or plasma creatinine m easurement (mass/volume)Ordered By: Dr. Kolb on 05-20-2022 Creatinine [Mass/Vol] 0.85 mg/dL 0.55-1.02 [facility] Comment on above: The validity of the calculated GFR & GFRAA in patients over 70 years has not been determined. Clinical correlation is essential. Serum or plasma ferritin luigi surement (mass/volume)Ordered By: Dr. Kolb on 05-20-2022 Ferritin [Mass/Vol] 14 ng/mL 8-252 [facility] Serum or plasma folate measu rement (mass/volume)Ordered By: Dr. Kolb on 05-20-2022 Folate [Mass/Vol] 15.80 ng/mL 3.1-55.4 [facility] Serum or plasma gamma globul in measurement by electrophoresis (mass/volume)Ordered By: Dr. Kolb on 05-20-2022 Gamma globulin Elph [Mass/Vol] 0.3 g/dL 0.4-1.8 [facility] Serum or plasma immunoelectr ophoresis interpretation (nominal result)Ordered By: Dr. Kolb on 05-20-2022 Interpretation IEP [Interp] Comment . [facility] Comment on above: No monoclonality det ected. Serum or plasma immunoglobul in kappa light chains measurement (mass/volume)Ordered By: Dr. Kolb on 05-20-2022 Immunoglobulin light chains.kappa [Mass/Vol] 46.3 mg/L 3.3-19.4 [facility] Serum or plasma iron saturat ion measurement (mass fraction)Ordered By: Dr. Kolb on 05-20-2022 Iron saturation [Mass fraction] 8.1 % 15.0-55.0 [facility] Serum or plasma urea nitroge n measurement (mass/volume)Ordered By: Dr. Kolb on 05-20-2022 Urea nitrogen [Mass/Vol] 43 mg/dL 7-18 [facility] Thin prep Papanicolaou smear with manual screeningOrdered By: Dr. Kolb on 05-20-2022 Thin prep Papanicolaou smear with manual screening 67 U/L 15-37 [facility] Thin prep Papanicolaou smear with manual screening 3 5-15 [facility] Thin prep Papanicolaou smear with manual screening 1.1 0.7-1.7 [facility] Total protein bloodOrdered B y: Dr. Kolb on 05-20-2022 Protein [Mass/Vol] 4.9 g/dL 6.0-8.5 [facility] Basophil percentageOrdered B y: Dr. De La Rosa on 05-17-2022 Bilirubin [Mass/Vol] mg/dL 0.20-1.00 [facility] Comment on above: For patients on eltr ombopag therapy, use of [place] TBIL is not recommended. Chloride [Moles/Vol] 104 mmol/L 98-107 [facility] Glucose [Mass/Vol] 101 mg/dL 74-106 [facility] Comment on above: Fasting Glucose resu lt from 100 to 125 mg/dL suggests IMPAIRED HOMEOSTASIS per A.D.A. criteria. Potassium [Moles/Vol] 4.3 mmol/L 3.5-5.1 [facility] Protein [Mass/Vol] 4.7 g/dL 6.4-8.2 [facility] Sodium [Moles/Vol] 139 mmol/L 136-145 [facility] Laboratory - Chemistry and C hemistry - challengeOrdered By: Dr. De La Rosa on 05-17-2022 ALP [Catalytic activity/Vol] 63 U/L 45-117 [facility] ALT [Catalytic activity/Vol] 66 U/L 13-56 [facility] CO2 [Moles/Vol] 31.0 mmol/L 21.0-32.0 [facility] Globulin (S) [Mass/Vol] 2.7 g/dL 2.2-4.2 [facility] Magnesium [Mass/Vol] 1.8 mg/dL 1.6-2.6 [facility] Urea nitrogen/Creatinine [Mass ratio] 52.5 mg/mg 10-20 [facility] No Panel InformationOrdered By: Dr. De La Rosa on 05-17-2022 Estimated GFR (MDRD) Amer 84 mL/min >60 [facility] Comment on above: GFR Calc Estimated GFR (MDRD) Non-Af Amer 69 mL/min >60 [facility] Comment on above: Non- GFR Calc Serum [id number] me asurementOrdered By: Dr. De La Rosa on 05-17-2022 Alpha 1 antitrypsin [Mass/Vol] 212 mg/dL 101-187 [facility] Comment on above: Performed at: [address] Director: Ortiz Hayden PhD, Phone: [phone] Serum or plasma albumin vickie urement (mass/volume)Ordered By: Dr. De La Rosa on 05-17-2022 Albumin [Mass/Vol] 2.0 g/dL 3.2-5.0 [facility] Serum or plasma albumin/glob ulin mass ratioOrdered By: Dr. De La Rosa on 05-17-2022 Albumin/Globulin [Mass ratio] 0.7 {ratio} 0.9-2.4 [facility] Serum or plasma calcium vickie urement (mass/volume)Ordered By: Dr. De La Rosa on 05-17-2022 Calcium [Mass/Vol] 8.8 mg/dL 8.5-10.1 [facility] Serum or plasma creatinine m easurement (mass/volume)Ordered By: Dr. De La Rosa on 05-17-2022 Creatinine [Mass/Vol] 0.90 mg/dL 0.55-1.02 [facility] Comment on above: The validity of the calculated GFR & GFRAA in patients over 70 years has not been determined. Clinical correlation is essential. Serum or plasma urea nitroge n measurement (mass/volume)Ordered By: Dr. De La Rosa on 05-17-2022 Urea nitrogen [Mass/Vol] 47 mg/dL 7-18 [facility] Thin prep Papanicolaou smear with manual screeningOrdered By: Dr. De La Rosa on 05-17-2022 Thin prep Papanicolaou smear with manual screening 63 U/L 15-37 [facility] Thin prep Papanicolaou smear with manual screening 4 5-15 [facility] Atypical perinuclear antineu trophil cytoplasmic antibodies measurementOrdered By: Dr. Bello on 05-12-2022 Neutrophil cytoplasmic Ab.perinuclear.atypical IF (S) [Titer] <1:20 titer Neg:<1:20 [facility] Comment on above: The atypical pANCA p attern has been observed in asignificant percentage of patients with ulcerative colitis,primary sclerosing cholangitis and autoimmune hepatitis. Basophil percentageOrdered B y: Dr. Bello on 05-12-2022 Bilirubin [Mass/Vol] 0.10 mg/dL 0.20-1.00 [facility] Comment on above: For patients on eltr ombopag therapy, use of [place] TBIL is not recommended. Chloride [Moles/Vol] 104 mmol/L 98-107 [facility] Glucose [Mass/Vol] 81 mg/dL 74-106 [facility] Potassium [Moles/Vol] 3.9 mmol/L 3.5-5.1 [facility] Protein [Mass/Vol] 5.4 g/dL 6.4-8.2 [facility] Sodium [Moles/Vol] 140 mmol/L 136-145 [facility] WBC (Bld) [#/Vol] 4.0 10*3/uL 4.4-11.0 [facility] Blood erythrocytes count (nu mber/volume)Ordered By: Dr. Bello on 05-12-2022 RBC (Bld) [#/Vol] 3.15 10*6/uL 4.2-5.4 [facility] Blood hemoglobin measurement (mass/volume)Ordered By: Dr. Bello on 05-12-2022 Hemoglobin (Bld) [Mass/Vol] 10.2 g/dL 12.0-15.0 [facility] Blood platelet mean volumeOr dered By: Dr. Bello on 05-12-2022 Platelet mean volume (Bld) [Entitic vol] 12.1 fL 6.2-12.0 [facility] Determination of erythrocyte mean corpuscular volume (MCV)Ordered By: Dr. Bello on 05-12-2022 MCV (RBC) [Entitic vol] 93.0 fL 81-99 [facility] Erythrocyte sedimentation ra teOrdered By: Dr. Bello on 05-12-2022 ESR (Bld) [Velocity] 33 mm/h 0-30 [facility] Hematocrit Auto (Bld) [Volum e fraction]Ordered By: Dr. Bello on 05-12-2022 Hematocrit (Bld) [Volume fraction] 29.3 % 37-47 [facility] Iron measurement (mass/mass) Ordered By: Dr. Bello on 05-12-2022 Iron (Unsp spec) [Mass/Mass] 129 ug/dL 50-170 [facility] Laboratory - Chemistry and C hemistry - challengeOrdered By: Dr. Bello on 05-12-2022 ALP [Catalytic activity/Vol] 72 U/L 45-117 [facility] ALT [Catalytic activity/Vol] 79 U/L 13-56 [facility] CK [Catalytic activity/Vol] 283 U/L 26-192 [facility] CO2 [Moles/Vol] 32.0 mmol/L 21.0-32.0 [facility] Globulin (S) [Mass/Vol] 3.1 g/dL 2.2-4.2 [facility] Urea nitrogen/Creatinine [Mass ratio] 48.3 mg/mg 10-20 [facility] Laboratory - Chemistry and C hemistry - challengeOrdered By: Dr. De La Rosa on 05-12-2022 Free T4 [Mass/Vol] 1.08 ng/dL 0.76-1.46 [facility] Magnesium [Mass/Vol] 1.9 mg/dL 1.6-2.6 [facility] Laboratory - Hematology and Cell countsOrdered By: Dr. Bello on 05-12-2022 Erythrocyte distribution width (RBC) [Entitic vol] 55.7 fL 35.1-43.9 [facility] Erythrocyte distribution width (RBC) [Ratio] 16.9 % 11.6-14.6 [facility] MCH (RBC) [Entitic mass] 32.4 pg 27.0-32.0 [facility] MCHC Auto (RBC) [Mass/Vol]Or dered By: Dr. Bello on 05-12-2022 MCHC (RBC) [Mass/Vol] 34.8 g/dL 32-36 [facility] No Panel InformationOrdered By: Dr. Bello on 05-12-2022 Estimated GFR (MDRD) Amer 86 mL/min >60 [facility] Comment on above: GFR Calc Estimated GFR (MDRD) Non-Af Amer 71 mL/min >60 [facility] Comment on above: Non- GFR Calc Total Iron Binding Capacity 403 ug/dL 250-450 [facility] No Panel InformationOrdered By: Dr. De La Rosa on 05-12-2022 Free Triiodothyronine (T3) pg/dL 1.5 pg/mL 2.18-3.98 [facility] Platelets bldOrdered By: Dr. Bello on 05-12-2022 Platelets (Bld) [#/Vol] 264 10*3/uL 150-450 [facility] Serum classic neutrophil cyt oplasmic antibody assay (units/volume)Ordered By: Dr. Bello on 05-12-2022 Neutrophil cytoplasmic Ab.classic Qn (S) <1:20 titer Neg:<1:20 [facility] Serum nuclear antibody titer by immunofluorescenceOrdered By: Dr. Bello on 05-12-2022 Nuclear Ab IF (S) [Titer] Negative . [facility] Comment on above: Negative <1:80 Borde rline 1:80 Positive >1:80ICAP nomenclature: AC-0For more information about Hep-2 cell patterns useANApatterns.org, the official website for theInternational Consensus on Antinuclear Antibody (SAYRA)Patterns (ICAP).Performed at: [employer] [id number] Director: Ortiz Hayden PhD, Phone: [phone] Serum or plasma C reactive p rotein measurement (mass/volume)Ordered By: Dr. Bello on 05-12-2022 CRP [Mass/Vol] mg/L 0.0-3.0 [facility] Comment on above: C-Reactive Protein ( CRP) provides useful information for thediagnosis, therapy and monitoring of inflammatory processesand associated diseases. For the evaluation of Relative Riskfor Cardiovascular Disease, a High Sensitivity CRP (HSCRP)should be ordered. Serum or plasma albumin vickie urement (mass/volume)Ordered By: Dr. Bello on 05-12-2022 Albumin [Mass/Vol] 2.3 g/dL 3.2-5.0 [facility] Serum or plasma albumin/glob ulin mass ratioOrdered By: Dr. Bello on 05-12-2022 Albumin/Globulin [Mass ratio] 0.7 {ratio} 0.9-2.4 [facility] [facility] Serum or plasma calcium vickie urement (mass/volume)Ordered By: Dr. Bello on 05-12-2022 Calcium [Mass/Vol] 9.0 mg/dL 8.5-10.1 [facility] Serum or plasma complement C 3 measurement (mass/volume)Ordered By: Dr. Bello on 05-12-2022 Complement C3 [Mass/Vol] 146 mg/dL 82-167 [facility] Comment on above: Performed at: [facility] [address] [id number] Director: Ortiz Hayden PhD, Phone: [phone] at: - [facility] [id number] [place], [place] [id number] Director: Neda Sousa MD, Phone: [phone] Serum or plasma complement C 4 measurement (mass/volume)Ordered By: Dr. Bello on 05-12-2022 Complement C4 [Mass/Vol] 30 mg/dL 12-38 [facility] Serum or plasma creatinine m easurement (mass/volume)Ordered By: Dr. Bello on 05-12-2022 Creatinine [Mass/Vol] 0.87 mg/dL 0.55-1.02 [facility] Comment on above: The validity of the calculated GFR & GFRAA in patients over 70 years has not been determined. Clinical correlation is essential. Serum or plasma ferritin luigi surement (mass/volume)Ordered By: Dr. Bello on 05-12-2022 Ferritin [Mass/Vol] 37 ng/mL 8-252 [facility] Serum or plasma iron saturat ion measurement (mass fraction)Ordered By: Dr. Bello on 05-12-2022 Iron saturation [Mass fraction] 32.0 % 15.0-55.0 [facility] Serum or plasma transthyreti n measurement (mass/volume)Ordered By: Dr. De La Rosa on 05-12-2022 Prealbumin [Mass/Vol] 36.0 mg/dL 20.0-40.0 [facility] Serum or plasma urea nitroge n measurement (mass/volume)Ordered By: Dr. Bello on 05-12-2022 Urea nitrogen [Mass/Vol] 42 mg/dL 7-18 [facility] Serum perinuclear neutrophil cytoplasmic antibody titer by immunofluorescenceOrdered By: Dr. Bello on 05-12-2022 Neutrophil cytoplasmic Ab.perinuclear IF (S) [Titer] <1:20 titer Neg:<1:20 [facility] Comment on above: The presence of posi tive fluorescence exhibiting P-ANCA orC-ANCA patterns alone is not specific for the diagnosis ofWegener's Granulomatosis (WG) or microscopic polyangiitis.Decisions about treatment should not be based solely onANCA IFA results. The [employer] Consensusrecommends follow up testing of positive sera with both HI-3 and MPO-ANCA enzyme immunoassays. As many as 5% serumsamples are positive only by EIA. Ref. AM J Clin Ezpfsq2201;111:507-513. Thin prep Papanicolaou smear with manual screeningOrdered By: Dr. Bello on 05-12-2022 Thin prep Papanicolaou smear with manual screening 74 U/L 15-37 [facility] Thin prep Papanicolaou smear with manual screening 4 5-15 [facility] Thin prep Papanicolaou smear with manual screening < 1.0 ng/dL 0.0-30.0 [facility] Urine creatinine measurement (mass/volume)Ordered By: Dr. Bello on 05-12-2022 Creatinine (U) [Mass/Vol] 62.40 mg/dL NO RANGE EST. [facility] Urine protein measurement (m ass/volume)Ordered By: Dr. Bello on 05-12-2022 Protein (U) [Mass/Vol] mg/dL 0.0-11.[address] [facility] Urine protein/creatinine mas s ratioOrdered By: Dr. Bello on 05-12-2022 Protein/Creatinine (U) [Mass ratio] TNP [facility] Comment on above: Test not performed Absolute lymphocyte countOrd ered By: Dr. Shaw on 05-10-2022 Lymphocytes Auto (Unsp spec) [#/Vol] 0.54 10*3/uL 0.83-4.51 [facility] Basophil percentageOrdered B y: Dr. Shaw on 05-10-2022 Bilirubin [Mass/Vol] mg/dL 0.20-1.00 [facility] Comment on above: For patients on eltr ombopag therapy, use of [place] TBIL is not recommended. Protein [Mass/Vol] 4.8 g/dL 6.4-8.2 [facility] Basophils/100 WBC (Bld) 0.2 % 0-1 [facility] Chloride [Moles/Vol] 107 mmol/L 98-107 [facility] Eosinophils/100 WBC (Bld) 0.2 % 0-5 [facility] Glucose [Mass/Vol] 105 mg/dL 74-106 [facility] Comment on above: Fasting Glucose resu lt from 100 to 125 mg/dL suggests IMPAIRED HOMEOSTASIS per A.D.A. criteria. Neutrophils (Bld) [#/Vol] 4.8 10*3/uL 2.0-7.7 [facility] Neutrophils/100 WBC (Bld) 84.1 % 47-70 [facility] Potassium [Moles/Vol] 4.7 mmol/L 3.5-5.1 [facility] Sodium [Moles/Vol] 141 mmol/L 136-145 [facility] WBC (Bld) [#/Vol] 5.7 10*3/uL 4.4-11.0 [facility] Blood erythrocytes count (nu mber/volume)Ordered By: Dr. Shaw on 05-10-2022 RBC (Bld) [#/Vol] 3.03 10*6/uL 4.2-5.4 [facility] Blood hemoglobin measurement (mass/volume)Ordered By: Dr. Shaw on 05-10-2022 Hemoglobin (Bld) [Mass/Vol] 9.8 g/dL 12.0-15.0 [facility] Blood lymphocytes/100 leukoc ytesOrdered By: Dr. Shaw on 05-10-2022 Lymphocytes/100 WBC (Bld) 9.6 % 19-41 [facility] Blood manual differential co mment interpretation (narrative result)Ordered By: Dr. Shaw on 05-10-2022 Manual differential comment Shayne (Bld) [Interp] SCANNED [facility] Blood monocytes/100 leukocyt esOrdered By: Dr[address] Shaw on 05-10-2022 Monocytes/100 WBC (Bld) 5.7 % 0-10 [facility] Blood platelet mean volumeOr dered By: Dr. Shaw on 05-10-2022 Platelet mean volume (Bld) [Entitic vol] 12.0 fL 6.2-12.0 [facility] Determination of erythrocyte mean corpuscular volume (MCV)Ordered By: Dr. Shaw on 05-10-2022 MCV (RBC) [Entitic vol] 95.7 fL 81-99 [facility] Direct bilirubinOrdered By: Dr. Shaw on 05-10-2022 Bilirubin.direct [Mass/Vol] 0.05 mg/dL 0.00-0.30 [facility] Hematocrit Auto (Bld) [Volum e fraction]Ordered By: Dr. Shaw on 05-10-2022 Hematocrit (Bld) [Volume fraction] 29.0 % 37-47 [facility] Laboratory - Chemistry and C hemistry - challengeOrdered By: Dr. Shaw on 05-10-2022 ALP [Catalytic activity/Vol] 64 U/L 45-117 [facility] ALT [Catalytic activity/Vol] 70 U/L 13-56 [facility] Globulin (S) [Mass/Vol] 2.8 g/dL 2.2-4.2 [facility] CO2 [Moles/Vol] 32.0 mmol/L 21.0-32.0 [facility] Urea nitrogen/Creatinine [Mass ratio] 46.1 mg/mg 10-20 [facility] Laboratory - Hematology and Cell countsOrdered By: Dr. Shaw on 05-10-2022 Erythrocyte distribution width (RBC) [Entitic vol] 58.9 fL 35.1-43.9 [facility] Erythrocyte distribution width (RBC) [Ratio] 17.0 % 11.6-14.6 [facility] Immature granulocytes/100 WBC (Bld) 0.200 % 0.0-0.9 [facility] Comment on above: IG% - Immature Granu locytes (promyelocytes, myelocytes and metamyelocytes) > 1% indicates that a LEFT SHIFT is Present. MCH (RBC) [Entitic mass] 32.3 pg 27.0-32.0 [facility] Nucleated RBC/100 WBC (Bld) [Ratio] 0 % 0-5 [facility] MCHC Auto (RBC) [Mass/Vol]Or dered By: Dr. Shaw on 05-10-2022 MCHC (RBC) [Mass/Vol] 33.8 g/dL 32-36 [facility] No Panel InformationOrdered By: Dr. Shaw on 02-13-2023 Estimated Creatinine Clearance Calc 69.92 ml/min [facility] Estimated GFR (MDRD) Amer 77 mL/min >60 [facility] Comment on above: GFR Calc Estimated GFR (MDRD) Non-Af Amer 64 mL/min >60 [facility] Comment on above: Non- GFR Calc Troponin I High Sensitivity 15 pg/mL 3.0-54.0 [facility] Comment on above: Please Note: New Sandra t Units and Gender Specific Reference Ranges. For more information see Policy Stat [place] High Sensitivity Troponin (TNIH) and attachments. Platelets bldOrdered By: Dr. Shaw on 05-10-2022 Platelets (Bld) [#/Vol] 258 10*3/uL 150-450 [facility] Serum or plasma albumin vickie urement (mass/volume)Ordered By: Dr. Shaw on 05-10-2022 Albumin [Mass/Vol] 2.0 g/dL 3.2-5.0 [facility] Serum or plasma calcium vickie urement (mass/volume)Ordered By: Dr. Shaw on 05-10-2022 Calcium [Mass/Vol] 9.0 mg/dL 8.5-10.1 [facility] Serum or plasma creatinine m easurement (mass/volume)Ordered By: Dr. Shaw on 05-10-2022 Creatinine [Mass/Vol] 0.96 mg/dL 0.55-1.02 [facility] Comment on above: The validity of the calculated GFR & GFRAA in patients over 70 years has not been determined. Clinical correlation is essential. Serum or plasma urea nitroge n measurement (mass/volume)Ordered By: Dr. Shaw on 05-10-2022 Urea nitrogen [Mass/Vol] 44 mg/dL 7-18 [facility] Thin prep Papanicolaou smear with manual screeningOrdered By: Dr. Shaw on 05-10-2022 Thin prep Papanicolaou smear with manual screening 67 U/L 15-37 [facility] Thin prep Papanicolaou smear with manual screening 2 5-15 [facility] Basophil percentageOrdered B y: Vilma Stathopoulos on 03-24-2022 Bilirubin [Mass/Vol] 0.20 mg/dL 0.20-1.00 [facility] Comment on above: For patients on eltr ombopag therapy, use of [place] TBIL is not recommended. Chloride [Moles/Vol] 103 mmol/L 98-107 [facility] Glucose [Mass/Vol] 111 mg/dL 74-106 [facility] Comment on above: Fasting Glucose resu lt from 100 to 125 mg/dL suggests IMPAIRED HOMEOSTASIS per A.D.A. criteria. Potassium [Moles/Vol] 4.6 mmol/L 3.5-5.1 [facility] Protein [Mass/Vol] 5.3 g/dL 6.4-8.2 [facility] Sodium [Moles/Vol] 140 mmol/L 136-145 [facility] Laboratory - Chemistry and C hemistry - challengeOrdered By: Vilma Urbina on 03-24-2022 ALP [Catalytic activity/Vol] 94 U/L 45-117 [facility] ALT [Catalytic activity/Vol] 69 U/L 13-56 [facility] CO2 [Moles/Vol] 33.0 mmol/L 21.0-32.0 [facility] Globulin (S) [Mass/Vol] 2.8 g/dL 2.2-4.2 [facility] Urea nitrogen/Creatinine [Mass ratio] 39.1 mg/mg 10-20 [facility] No Panel InformationOrdered By: Vilma Urbina on 03-24-2022 Estimated GFR (MDRD) Amer 100 mL/min >60 [facility] Comment on above: GFR Calc Estimated GFR (MDRD) Non-Af Amer 83 mL/min >60 [facility] Comment on above: Non- GFR Calc Serum or plasma albumin vickie urement (mass/volume)Ordered By: Vilma Urbina on 03-24-2022 Albumin [Mass/Vol] 2.5 g/dL 3.2-5.0 [facility] Serum or plasma albumin/glob ulin mass ratioOrdered By: Vilma Urbina on 03-24-2022 Albumin/Globulin [Mass ratio] 0.9 {ratio} 0.9-2.4 [facility] Serum or plasma calcium vickie urement (mass/volume)Ordered By: Vilma Urbina on 03-24-2022 Calcium [Mass/Vol] 8.4 mg/dL 8.5-10.1 [facility] Serum or plasma creatinine m easurement (mass/volume)Ordered By: Vilma Urbina on 03-24-2022 Creatinine [Mass/Vol] 0.77 mg/dL 0.55-1.02 [facility] Comment on above: The validity of the calculated GFR & GFRAA in patients over 70 years has not been determined. Clinical correlation is essential. Serum or plasma urea nitroge n measurement (mass/volume)Ordered By: Vilma Urbina on 03-24-2022 Urea nitrogen [Mass/Vol] 30 mg/dL 7-18 [facility] Thin prep Papanicolaou smear with manual screeningOrdered By: Vilma Urbina on 03-24-2022 Thin prep Papanicolaou smear with manual screening 54 U/L 15-37 [facility] Thin prep Papanicolaou smear with manual screening 4 5-15 [facility] Absolute lymphocyte countOrd ered By: Dr. Jimenes on 03-20-2022 Lymphocytes Auto (Unsp spec) [#/Vol] 0.93 10*3/uL 0.83-4.51 [facility] Basophil percentageOrdered B y: Dr. Jimenes on 03-20-2022 Basophils/100 WBC (Bld) 0.5 % 0-1 [facility] Eosinophils/100 WBC (Bld) 2.1 % 0-5 [facility] Neutrophils (Bld) [#/Vol] 2.2 10*3/uL 2.0-7.7 [facility] Neutrophils/100 WBC (Bld) 57.9 % 47-70 [facility] WBC (Bld) [#/Vol] 3.8 10*3/uL 4.4-11.0 [facility] Blood erythrocytes count (nu mber/volume)Ordered By: Dr. Jimenes on 03-20-2022 RBC (Bld) [#/Vol] 2.81 10*6/uL 4.2-5.4 [facility] Blood hemoglobin measurement (mass/volume)Ordered By: Dr. Jimenes on 03-20-2022 Hemoglobin (Bld) [Mass/Vol] 8.8 g/dL 12.0-15.0 [facility] Blood lymphocytes/100 leukoc ytesOrdered By: Dr. Jimenes on 03-20-2022 Lymphocytes/100 WBC (Bld) 24.5 % 19-41 [facility] Blood manual differential co mment interpretation (narrative result)Ordered By: Dr. Jimenes on 03-20-2022 Manual differential comment Shayne (Bld) [Interp] SCANNED [facility] Blood monocytes/100 leukocyt esOrdered By: Dr. Jimenes on 03-20-2022 Monocytes/100 WBC (Bld) 14.7 % 0-10 [facility] Blood platelet mean volumeOr dered By: Dr. Jimenes on 03-20-2022 Platelet mean volume (Bld) [Entitic vol] 11.2 fL 6.2-12.0 [facility] Determination of erythrocyte mean corpuscular volume (MCV)Ordered By: Dr. Jimenes on 03-20-2022 MCV (RBC) [Entitic vol] 96.4 fL 81-99 [facility] Hematocrit Auto (Bld) [Volum e fraction]Ordered By: Dr. Jimenes on 03-20-2022 Hematocrit (Bld) [Volume fraction] 27.1 % 37-47 [facility] Laboratory - Hematology and Cell countsOrdered By: Dr. Jimenes on 03-20-2022 Anisocytosis Ql (Bld) 2+ [facility] Erythrocyte distribution width (RBC) [Entitic vol] 67.5 fL 35.1-43.9 [facility] Erythrocyte distribution width (RBC) [Ratio] 18.9 % 11.6-14.6 [facility] Immature granulocytes/100 WBC (Bld) 0.300 % 0.0-0.9 [facility] Comment on above: IG% - Immature Granu locytes (promyelocytes, myelocytes and metamyelocytes) > 1% indicates that a LEFT SHIFT is Present. MCH (RBC) [Entitic mass] 31.3 pg 27.0-32.0 [facility] Nucleated RBC/100 WBC (Bld) [Ratio] 0 % 0-5 [facility] MCHC Auto (RBC) [Mass/Vol]Or dered By: Dr. Jimenes on 03-20-2022 MCHC (RBC) [Mass/Vol] 32.5 g/dL 32-36 [facility] Comment on above: Delta: 34.6 on 03/1906 Macrocytes detectionOrdered By: Dr. Jimenes on 03-20-2022 Macrocytes Ql (Bld) 1+ [facility] Platelets bldOrdered By: Dr. Jimenes on 03-20-2022 Platelets (Bld) [#/Vol] 244 10*3/uL 150-450 [facility] Thin prep Papanicolaou smear with manual screeningOrdered By: Dr. Jimenes on 03-20-2022 Thin prep Papanicolaou smear with manual screening 1+ [facility] Basophil percentageOrdered B y: Dr. Jimenes on 03-19-2022 Chloride [Moles/Vol] 105 mmol/L 98-107 [facility] Glucose [Mass/Vol] 85 mg/dL 74-106 [facility] Potassium [Moles/Vol] 3.5 mmol/L 3.5-5.1 [facility] Sodium [Moles/Vol] 143 mmol/L 136-145 [facility] Iron measurement (mass/mass) Ordered By: Dr. Jimenes on 03-19-2022 Iron (Unsp spec) [Mass/Mass] 56 ug/dL 50-170 [facility] Laboratory - Chemistry and C hemistry - challengeOrdered By: Dr. Jimenes on 03-19-2022 CO2 [Moles/Vol] 36.0 mmol/L 21.0-32.0 [facility] Urea nitrogen/Creatinine [Mass ratio] 36.9 mg/mg 10-20 [facility] No Panel InformationOrdered By: Dr. Jimenes on 03-19-2022 Estimated Creatinine Clearance Calc 91.95 ml/min [facility] Estimated GFR (MDRD) Amer 105 mL/min >60 [facility] Comment on above: GFR Calc Estimated GFR (MDRD) Non-Af Amer 87 mL/min >60 [facility] Comment on above: Non- GFR Calc Total Iron Binding Capacity 298 ug/dL 250-450 [facility] Serum or plasma calcium vickie urement (mass/volume)Ordered By: Dr. Jimenes on 03-19-2022 Calcium [Mass/Vol] 8.8 mg/dL 8.5-10.1 [facility] Serum or plasma creatinine m easurement (mass/volume)Ordered By: Dr. Jimenes on 03-19-2022 Creatinine [Mass/Vol] 0.73 mg/dL 0.55-1.02 [facility] Comment on above: The validity of the calculated GFR & GFRAA in patients over 70 years has not been determined. Clinical correlation is essential. Serum or plasma ferritin luigi surement (mass/volume)Ordered By: Dr. Jimenes on 03-19-2022 Ferritin [Mass/Vol] 11 ng/mL 8-252 [facility] Serum or plasma iron saturat ion measurement (mass fraction)Ordered By: Dr. Jimenes on 03-19-2022 Iron saturation [Mass fraction] 18.8 % 15.0-55.0 [facility] Serum or plasma urea nitroge n measurement (mass/volume)Ordered By: Dr. Jimenes on 03-19-2022 Urea nitrogen [Mass/Vol] 27 mg/dL 7-18 [facility] Thin prep Papanicolaou smear with manual screeningOrdered By: Dr. Jimenes on 03-19-2022 Thin prep Papanicolaou smear with manual screening 2 5-15 [facility] Basophil percentageOrdered B y: Meaghan Barkley on 03-18-2022 Bilirubin [Mass/Vol] 0.10 mg/dL 0.20-1.00 [facility] Comment on above: For patients on eltr ombopag therapy, use of [place] TBIL is not recommended. Protein [Mass/Vol] 4.4 g/dL 6.4-8.2 [facility] Blood schistocytes detection by light microscopyOrdered By: Dr. Jimenes on 03-18-2022 Schistocytes LM Ql (Bld) RARE [facility] Laboratory - Chemistry and C hemistry - challengeOrdered By: Meaghan Barkley on 03-18-2022 ALP [Catalytic activity/Vol] 63 U/L 45-117 [facility] ALT [Catalytic activity/Vol] 68 U/L 13-56 [facility] Globulin (S) [Mass/Vol] 2.6 g/dL 2.2-4.2 [facility] No Panel InformationOrdered By: Dr. Fuller on 03-18-2022 Free Lambda Light Chains, Quant 257.4 mg/L 5.7-26.3 [facility] Serum immunoglobulin kappa l ight chains/immunoglobulin lambda light chains mass ratioOrdered By: Dr. Fuller on 03-18-2022 Immunoglobulin light chains.kappa/Immunoglobu dariana light chains.lambda (S) [Mass ratio] 0.15 0.26-1.65 [facility] Comment on above: Performed at: [address] [id number] Director: Ortiz Hayden PhD, Phone: [phone] Serum or plasma albumin vickie urement (mass/volume)Ordered By: Meaghan Barkley on 03-18-2022 Albumin [Mass/Vol] 1.8 g/dL 3.2-5.0 [facility] Serum or plasma albumin/glob ulin mass ratioOrdered By: Meaghan Barkley on 03-18-2022 Albumin/Globulin [Mass ratio] 0.7 {ratio} 0.9-2.4 [facility] Serum or plasma immunoglobul in kappa light chains measurement (mass/volume)Ordered By: Dr. Fuller on 03-18-2022 Immunoglobulin light chains.kappa [Mass/Vol] 39.7 mg/L 3.3-19.4 [facility] Target cell detectionOrdered By: Dr. Jimenes on 03-18-2022 Target cells LM Ql (Bld) 1+ [facility] Thin prep Papanicolaou smear with manual screeningOrdered By: Meaghan Barkley on 03-18-2022 Thin prep Papanicolaou smear with manual screening 61 U/L 15-37 [facility] Absolute lymphocyte counton 03-16-2022 Lymphocytes Auto (Unsp spec) [#/Vol] 0.64 10*3/uL 0.83-4.51 [facility] Work Phone: Basophil percentageon 2021 Basophils/100 WBC (Bld) 0.4 % 0-1 [facility] Work Phone: Bilirubin [Mass/Vol] 0.20 mg/dL 0.20-1.00 [facility] Work Phone: Comment on above: For patients on eltr ombopag therapy, use of [place] TBIL is not recommended. Chloride [Moles/Vol] 106 mmol/L 98-107 [facility] Phone: Eosinophils/100 WBC (Bld) 1.1 % 0-5 [facility] Work Phone: Glucose [Mass/Vol] 75 mg/dL 74-106 [facility] Work Phone: Neutrophils (Bld) [#/Vol] 1.7 10*3/uL 2.0-7.7 [facility] Work Phone: Neutrophils/100 WBC (Bld) 61.3 % 47-70 [facility] Work Phone: Potassium [Moles/Vol] 3.7 mmol/L 3.5-5.1 [facility] Work Phone: Protein [Mass/Vol] 3.8 g/dL 6.4-8.2 [facility] Work Phone: Sodium [Moles/Vol] 140 mmol/L 136-145 [facility] Work Phone: WBC (Bld) [#/Vol] 2.8 10*3/uL 4.4-11.0 [facility] Work Phone: Blood erythrocytes count (nu mber/volume)on 03-16-2022 RBC (Bld) [#/Vol] 2.90 10*6/uL 4.2-5.4 [facility]: Blood hemoglobin measurement (mass/volume)on 03-16-2022 Hemoglobin (Bld) [Mass/Vol] 9.3 g/dL 12.0-15.0 [facility] Work Phone: Blood lymphocytes/100 leukoc yteson 03-16-2022 Lymphocytes/100 WBC (Bld) 23.3 % 19-41 [facility] Work Phone: Blood monocytes/100 leukocyt eson 03-16-2022 Monocytes/100 WBC (Bld) 13.5 % 0-10 [facility] Work Phone: Blood platelet mean volumeon 03-16-2022 Platelet mean volume (Bld) [Entitic vol] 11.6 fL 6.2-12.0 [facility] Work Phone: [phone] Determination of erythrocyte mean corpuscular volume (MCV)on 03-16-2022 MCV (RBC) [Entitic vol] 93.1 fL 81-99 [facility] Work Phone: Hematocrit Auto (Bld) [Volum e fraction]on 03-16-2022 Hematocrit (Bld) [Volume fraction] 27.0 % 37-47 [facility] Work Phone: [phone] Laboratory - Chemistry and C hemistry - challengeon 03-16-2022 ALP [Catalytic activity/Vol] 51 U/L 45-117 [facility] Work Phone: ALT [Catalytic activity/Vol] 57 U/L 13-56 [facility] Work Phone: CO2 [Moles/Vol] 32.0 mmol/L 21.0-32.0 [facility] Work Phone: [phone] Globulin (S) [Mass/Vol] 2.2 g/dL 2.2-4.2 [facility] Work Phone: [phone] Urea nitrogen/Creatinine [Mass ratio] 49.0 mg/mg 01-14 [facility] Work Phone: [phone] Laboratory - Chemistry and C hemistry - challengeOrdered By: Dr. Barahona on 03-16-2022 Magnesium [Mass/Vol] 1.9 mg/dL 1.6-2.6 [facility] Laboratory - Hematology and Cell countson 03-16-2022 Erythrocyte distribution width (RBC) [Entitic vol] 62.1 fL 35.1-43.9 [facility] Work Phone: [phone] Erythrocyte distribution width (RBC) [Ratio] 18.5 % 11.6-14.6 [facility] Work Phone: [phone] Immature granulocytes/100 WBC (Bld) 0.400 % 0.0-0.9 [facility] Work Phone: Comment on above: IG% - Immature Granu locytes (promyelocytes, myelocytes and metamyelocytes) > 1% indicates that a LEFT SHIFT is Present. MCH (RBC) [Entitic mass] 32.1 pg 27.0-32.0 [facility] Work Phone: Nucleated RBC/100 WBC (Bld) [Ratio] 0 % 0-5 [facility] Work Phone: MCHC Auto (RBC) [Mass/Vol]on 03-16-2022 MCHC (RBC) [Mass/Vol] 34.4 g/dL 32-36 [facility] Work Phone: No Panel Informationon 03-16 Estimated Creatinine Clearance Calc 122.04 ml/min [facility] Work Phone: Estimated GFR (MDRD) Amer 146 mL/min >60 [facility] Work Phone: Comment on above: GFR Calc Estimated GFR (MDRD) Non-Af Amer 121 mL/min >60 [facility] Work Phone: Comment on above: Non- GFR Calc Platelets bldon 03-16-2022 Platelets (Bld) [#/Vol] 187 10*3/uL 150-450 [facility] Work Phone: Serum or plasma albumin vickie urement (mass/volume)on 03-16-2022 Albumin [Mass/Vol] 1.6 g/dL 3.2-5.0 [facility] Work Phone: Serum or plasma albumin/glob ulin mass ratioon 03-16-2022 Albumin/Globulin [Mass ratio] 0.7 {ratio} 0.9-2.4 [facility] Work Phone: Serum or plasma calcium vickie urement (mass/volume)on 03-16-2022 Calcium [Mass/Vol] 8.2 mg/dL 8.5-10.1 [facility] Work Phone: Serum or plasma creatinine m easurement (mass/volume)on 03-16-2022 Creatinine [Mass/Vol] 0.55 mg/dL 0.55-1.02 [facility] Work Phone: Comment on above: The validity of the calculated GFR & GFRAA in patients over 70 years has not been determined. Clinical correlation is essential. Serum or plasma urea nitroge n measurement (mass/volume)on 03-16-2022 Urea nitrogen [Mass/Vol] 27 mg/dL 7-18 [facility] Work Phone: Thin prep Papanicolaou smear with manual screeningon 03-16-2022 Thin prep Papanicolaou smear with manual screening 55 U/L 15-37 [facility] Work Phone: Thin prep Papanicolaou smear with manual screening 2 5-15 [facility] Work Phone: Blood manual differential co mment interpretation (narrative result)on 03-15-2022 Manual differential comment Shayne (Bld) [Interp] SCANNED [facility] Work Phone: Comment on above: LYMPHOPENIA NOTED Laboratory - Chemistry and C hemistry - challengeOrdered By: Dr. Barahona on 03-15-2022 Free T4 [Mass/Vol] 1.15 ng/dL 0.76-1.46 [facility] Laboratory - Chemistry and C hemistry - challengeOrdered By: Dr. Calero on 03-15-2022 Natriuretic peptide B (Bld) [Mass/Vol] 117.2 pg/mL 0-100 [facility] No Panel InformationOrdered By: Dr. Barahona on 03-15-2022 Free Triiodothyronine (T3) pg/dL 1.6 pg/mL 2.18-3.98 [facility] Thyroid Stimulating Hormone (TSH) 11.10 uIU/mL 0.358-3.74 [facility] 24 hour urine albumin/total protein ratio by electrophoresis (mass fraction)Ordered By: Hero Lawrence on 03-13-2022 Albumin Elph (24H U) [Mass fraction] 25.6 % . [facility] 24 hour urine alpha 1 globul in/total protein ratio by electrophoresis (mass fraction)Ordered By: Hero Lawrence on 03-13-2022 Alpha 1 globulin Elph (24H U) [Mass fraction] 0.8 % . [facility] 24 hour urine protein measur ement (mass/time)Ordered By: Hero Lawrence on 03-13-2022 Protein (24H U) [Mass/Time] 55 mg/24 hr 30-150 [facility] 24 hour urine protein monocl onal measurement by electrophoresis (mass/time)Ordered By: Hero Lawrence on 03-13-2022 Protein.monoclonal Elph (24H U) [Mass/Time] TNP [facility] Comment on above: Test not performed Interpretation of urine immu nofixation (nominal result)Ordered By: Hero Lawrence on 03-13-2022 Interpretation Immunofixation (U) [Interp] Comment . [facility] Comment on above: The urine protein el ectrophoresis pattern reflects lowmolecular weight constituents found in normal urine. Noproteinuria or anomalous protein is observed.Performed at: [employer] Director: Ortiz Hayden PhD, Phone: [phone] No Panel InformationOrdered By: Hero Lawrence on 03-13-2022 Urine [id number] 2.8 % . [facility] Urine Immunofixation PEP Note Comment . [facility] Comment on above: Protein electrophore sis scan will follow via computer,mail, or instructional support technician delivery. Urine beta globulin measurem ent by electrophoresis (mass/volume)Ordered By: Hero Lawrence on 03-13-2022 Beta globulin Elph (U) [Mass/Vol] 52.5 % . [facility] Urine gamma globulin measure ment by electrophoresis (mass/volume)Ordered By: Hero Lawrence on 03-13-2022 Gamma globulin Elph (U) [Mass/Vol] 18.3 % . [facility] Urine monoclonal protein/tot al protein mass ratio by electrophoresisOrdered By: Hero Lawrence on 03-13-2022 Protein.monoclonal Elph (U) [Mass fraction] Not Observed % Not Observed [facility] Urine protein measurement (m ass/volume)Ordered By: Hero Lawrence on 03-13-2022 Protein (U) [Mass/Vol] 5.1 mg/dL Not Estab. [facility] 24 hour urine albumin/total protein ratio by electrophoresis (mass fraction)Ordered By: Hero Lawrence on 03-11-2022 Albumin Elph (24H U) [Mass fraction] 19.0 % . [facility] 24 hour urine alpha 1 globul in/total protein ratio by electrophoresis (mass fraction)Ordered By: Hero Lawrence on 03-11-2022 Alpha 1 globulin Elph (24H U) [Mass fraction] 8.8 % . [facility] 24 hour urine alpha 2 globul in/total protein ratio by electrophoresis (mass fraction)Ordered By: Hero Lawrence on 03-11-2022 Alpha 2 globulin Elph (24H U) [Mass fraction] 16.1 % . [facility] Erythrocyte sedimentation ra teOrdered By: Hero Lawrence on 03-11-2022 ESR (Bld) [Velocity] 13 mm/h 0-30 [facility] Laboratory - Chemistry and C hemistry - challengeOrdered By: Hero Lawrence on 03-11-2022 CK [Catalytic activity/Vol] 293 U/L 26-192 [facility] Myoglobin [Mass/Vol] 86 ng/mL 25-58 [facility] Comment on above: Performed at: [employer] [address] [id number] Director: Ortiz Hayden PhD, Phone: [phone] at: [facility] [employer] [id number] Director: Neda Sousa MD, Phone: [phone] No Panel InformationOrdered By: Hero Lawrence on 03-11-2022 Urine Immunofixation PEP Note Comment . [facility] Comment on above: Protein electrophore sis scan will follow via computer,mail, or instructional support technician delivery. Serum or plasma C reactive p rotein measurement (mass/volume)Ordered By: Hero Lawrence on 03-11-2022 CRP [Mass/Vol] mg/L 0.0-3.0 [facility] Comment on above: C-Reactive Protein ( CRP) provides useful information for thediagnosis, therapy and monitoring of inflammatory processesand associated diseases. For the evaluation of Relative Riskfor Cardiovascular Disease, a High Sensitivity CRP (HSCRP)should be ordered. Thin prep Papanicolaou smear with manual screeningOrdered By: Hero Lawrence on 03-11-2022 Thin prep Papanicolaou smear with manual screening Comment . [facility] Comment on above: Bence Gallegos Protein positive; lambda type. Thin prep Papanicolaou smear with manual screening 3 ng/mL 0-13 [facility] Urine beta globulin measurem ent by electrophoresis (mass/volume)Ordered By: Hero Lawrence on 03-11-2022 Beta globulin Elph (U) [Mass/Vol] 43.8 % . [facility] Urine gamma globulin measure ment by electrophoresis (mass/volume)Ordered By: Hero Lawrence on 03-11-2022 Gamma globulin Elph (U) [Mass/Vol] 12.3 % . [facility] Urine monoclonal protein/tot al protein mass ratio by electrophoresisOrdered By: Hero Lawrence on 03-11-2022 Protein.monoclonal Elph (U) [Mass fraction] Comment: % Not Observed [facility] Comment on above: Due to the small uriel ntity of monoclonal protein, unable toquantitate the M-spike. Urine protein measurement (m ass/volume)Ordered By: Hero Lawrence on 03-11-2022 Protein (U) [Mass/Vol] 6.5 mg/dL Not Estab. [facility] Basophil percentageOrdered B y: Dr. De La Rosa on 02-23-2022 Bilirubin [Mass/Vol] 0.20 mg/dL 0.20-1.00 [facility] Comment on above: For patients on eltr ombopag therapy, use of [place] TBIL is not recommended. Chloride [Moles/Vol] 99 mmol/L 98-107 [facility] Glucose [Mass/Vol] 69 mg/dL 74-106 [facility] Potassium [Moles/Vol] 3.8 mmol/L 3.5-5.1 [facility] Protein [Mass/Vol] 5.2 g/dL 6.4-8.2 [facility] Sodium [Moles/Vol] 137 mmol/L 136-145 [facility] WBC (Bld) [#/Vol] 3.8 10*3/uL 4.4-11.0 [facility] Blood erythrocytes count (nu mber/volume)Ordered By: Dr. De La Rosa on 02-23-2022 RBC (Bld) [#/Vol] 3.91 10*6/uL 4.2-5.4 [facility] Blood hemoglobin measurement (mass/volume)Ordered By: Dr. De La Rosa on 02-23-2022 Hemoglobin (Bld) [Mass/Vol] 12.1 g/dL 12.0-15.0 [facility] Blood platelet mean volumeOr dered By: Dr. De La Rosa on 02-23-2022 Platelet mean volume (Bld) [Entitic vol] 12.2 fL 6.2-12.0 [facility] Determination of erythrocyte mean corpuscular volume (MCV)Ordered By: Dr. De La Rosa on 02-23-2022 MCV (RBC) [Entitic vol] 93.6 fL 81-99 [facility] Hematocrit Auto (Bld) [Volum e fraction]Ordered By: Dr. De La Rosa on 02-23-2022 Hematocrit (Bld) [Volume fraction] 36.6 % 37-47 [facility] INR in Blood by Coagulation assayOrdered By: Dr. De La Rosa on 02-23-2022 INR Coag (Bld) [Relative time] 0.8 {INR} [facility] Laboratory - Chemistry and C hemistry - challengeOrdered By: Dr. De La Rosa on 02-23-2022 ALP [Catalytic activity/Vol] 66 U/L 45-117 [facility] ALT [Catalytic activity/Vol] 73 U/L 13-56 [facility] CO2 [Moles/Vol] 34.0 mmol/L 21.0-32.0 [facility] Globulin (S) [Mass/Vol] 2.8 g/dL 2.2-4.2 [facility] Magnesium [Mass/Vol] 2.0 mg/dL 1.6-2.6 [facility] Urea nitrogen/Creatinine [Mass ratio] 39.1 mg/mg 10-20 [facility] Laboratory - CoagulationOrde red By: Dr. De La Rosa on 02-23-2022 PT Coag (PPP) [Time] 11.0 s 11.7-14.9 [facility] Laboratory - Hematology and Cell countsOrdered By: Dr. De La Rosa on 02-23-2022 Erythrocyte distribution width (RBC) [Entitic vol] 62.5 fL 35.1-43.9 [facility] Erythrocyte distribution width (RBC) [Ratio] 18.3 % 11.6-14.6 [facility] MCH (RBC) [Entitic mass] 30.9 pg 27.0-32.0 [facility] MCHC Auto (RBC) [Mass/Vol]Or dered By: Dr. De La Rosa on 02-23-2022 MCHC (RBC) [Mass/Vol] 33.1 g/dL 32-36 [facility] No Panel InformationOrdered By: Dr. De La Rosa on 02-23-2022 Estimated GFR (MDRD) Amer 123 mL/min >60 [facility] Comment on above: GFR Calc Estimated GFR (MDRD) Non-Af Amer 102 mL/min >60 [facility] Comment on above: Non- GFR Calc Urine Random Sodium < 5 mmol/L Not Establ. [facility] Platelets bldOrdered By: Dr. De La Rosa on 02-23-2022 Platelets (Bld) [#/Vol] 184 10*3/uL 150-450 [facility] Serum or plasma albumin vickie urement (mass/volume)Ordered By: Dr. De La Rosa on 02-23-2022 Albumin [Mass/Vol] 2.4 g/dL 3.2-5.0 [facility] Serum or plasma albumin/glob ulin mass ratioOrdered By: Dr. De La Rosa on 02-23-2022 Albumin/Globulin [Mass ratio] 0.9 {ratio} 0.9-2.4 [facility] Serum or plasma calcium vickie urement (mass/volume)Ordered By: Dr. De La Rosa on 02-23-2022 Calcium [Mass/Vol] 8.8 mg/dL 8.5-10.1 [facility] Serum or plasma creatinine m easurement (mass/volume)Ordered By: Dr. De La Rosa on 02-23-2022 Creatinine [Mass/Vol] 0.64 mg/dL 0.55-1.02 [facility] Comment on above: The validity of the calculated GFR & GFRAA in patients over 70 years has not been determined. Clinical correlation is essential. Serum or plasma urea nitroge n measurement (mass/volume)Ordered By: Dr. De La Rosa on 11-29-2022 Urea nitrogen [Mass/Vol] 25 mg/dL 7-18 [facility] Thin prep Papanicolaou smear with manual screeningOrdered By: Dr. De La Rosa on 02-23-2022 Thin prep Papanicolaou smear with manual screening 64 U/L 15-37 [facility] Thin prep Papanicolaou smear with manual screening 4 5-15 [facility] Urine creatinine measurement (mass/volume)Ordered By: Dr. De La Rosa on 02-23-2022 Creatinine (U) [Mass/Vol] 105.00 mg/dL NO RANGE EST. [facility] Urine protein measurement (m ass/volume)Ordered By: Dr. De La Rosa on 02-23-2022 Protein (U) [Mass/Vol] mg/dL 0.0-11.[address] [facility] Absolute lymphocyte countOrd ered By: Dr. De La Rosa on 2022 Lymphocytes Auto (Unsp spec) [#/Vol] 0.65 10*3/uL 0.83-4.51 [facility] Alternaria alternata IgE ser umOrdered By: Dr. De La Rosa on 2022 A. alternata IgE Qn (S) <0.10 kU/L Class 0 [facility] Basophil percentageOrdered B y: Dr. De La Rosa on 2022 Basophils/100 WBC (Bld) 0.3 % 0-1 [facility] Bilirubin [Mass/Vol] 0.10 mg/dL 0.20-1.00 [facility] Comment on above: For patients on eltr ombopag therapy, use of [place] TBIL is not recommended. Chloride [Moles/Vol] 100 mmol/L 98-107 [facility] Eosinophils/100 WBC (Bld) 0.6 % 0-5 [facility] Glucose [Mass/Vol] 70 mg/dL 74-106 [facility] Neutrophils (Bld) [#/Vol] 2.2 10*3/uL 2.0-7.7 [facility] Neutrophils/100 WBC (Bld) 68.0 % 47-70 [facility] Potassium [Moles/Vol] 3.5 mmol/L 3.5-5.1 [facility] Protein [Mass/Vol] 5.1 g/dL 6.4-8.2 [facility] Sodium [Moles/Vol] 137 mmol/L 136-145 [facility] WBC (Bld) [#/Vol] 3.2 10*3/uL 4.4-11.0 [facility] Blood erythrocytes count (nu mber/volume)Ordered By: Dr. De La Rosa on 2022 RBC (Bld) [#/Vol] 3.70 10*6/uL 4.2-5.4 [facility] Blood hemoglobin measurement (mass/volume)Ordered By: Dr. De La Rosa on 2022 Hemoglobin (Bld) [Mass/Vol] 11.6 g/dL 12.0-15.0 [facility] Blood lymphocytes/100 leukoc ytesOrdered By: Dr. De La Rosa on 2022 Lymphocytes/100 WBC (Bld) 20.4 % 19-41 [facility] Blood monocytes/100 leukocyt esOrdered By: Dr. De La Rosa on 2022 Monocytes/100 WBC (Bld) 10.4 % 0-10 [facility] Blood platelet mean volumeOr dered By: Dr. De La Rosa on 2022 Platelet mean volume (Bld) [Entitic vol] 12.1 fL 6.2-12.0 [facility] Chocolate RASTOrdered By: Dr Carolina De La Rosa on 2022 Chocolate IgE Qn (S) <0.10 kU/L Class 0 [facility] Comment on above: Performed at: [address] [id number] Director: Neda Sousa MD, Phone: [phone] Determination of erythrocyte mean corpuscular volume (MCV)Ordered By: Dr. De La Rosa on 2022 MCV (RBC) [Entitic vol] 93.0 fL 81-99 [facility] Hematocrit Auto (Bld) [Volum e fraction]Ordered By: Dr. De La Rosa on 2022 Hematocrit (Bld) [Volume fraction] 34.4 % 37-47 [facility] Laboratory - Chemistry and C hemistry - challengeOrdered By: Dr. De La Rosa on 2022 ALP [Catalytic activity/Vol] 71 U/L 45-117 [facility] ALT [Catalytic activity/Vol] 64 U/L 13-56 [facility] Amylase [Catalytic activity/Vol] 9 U/L 5-55 [facility] CO2 [Moles/Vol] 33.0 mmol/L 21.0-32.0 [facility] Free T4 [Mass/Vol] 1.10 ng/dL 0.76-1.46 [facility] Globulin (S) [Mass/Vol] 2.5 g/dL 2.2-4.2 [facility] Urea nitrogen/Creatinine [Mass ratio] 42.7 mg/mg 10-20 [facility] Laboratory - Hematology and Cell countsOrdered By: Dr. De La Rosa on 2022 Erythrocyte distribution width (RBC) [Entitic vol] 62.5 fL 35.1-43.9 [facility] Erythrocyte distribution width (RBC) [Ratio] 18.3 % 11.6-14.6 [facility] Immature granulocytes/100 WBC (Bld) 0.300 % 0.0-0.9 [facility] Comment on above: IG% - Immature Granu locytes (promyelocytes, myelocytes and metamyelocytes) > 1% indicates that a LEFT SHIFT is Present. MCH (RBC) [Entitic mass] 31.4 pg 27.0-32.0 [facility] Nucleated RBC/100 WBC (Bld) [Ratio] 0.6 % 0-5 [facility] Laboratory - Miscellaneous t estsOrdered By: Dr. De La Rosa on 2022 Service comment (Unsp spec) [Interp] Comment . [facility] Comment on above: Levels of Specific I gE Class Description of Class ----- < 0.10 0 Negative 0.10 - 0.31 0/I Equivocal/Low 0.32 - 0.55 I Low 0.56 - 1.40 II Moderate 1.41 - 3.90 III High 3.91 - 19.00 IV Very High 19.01 - 100.00 V Very High >100.00 [facility] MCHC Auto (RBC) [Mass/Vol]Or dered By: Dr. De La Rosa on 2022 MCHC (RBC) [Mass/Vol] 33.7 g/dL 32-36 [facility] No Panel InformationOrdered By: Dr. De La Rosa on 2022 Cat Hair Allergen <0.10 kU/L Class 0 [facility] Common Ragweed (Short) Allergen <0.10 kU/L Class 0 [facility] Estimated GFR (MDRD) Amer 130 mL/min >60 [facility] Comment on above: GFR Calc Estimated GFR (MDRD) Non-Af Amer 108 mL/min >60 [facility] Comment on above: Non- GFR Calc Free Triiodothyronine (T3) pg/dL 1.8 pg/mL 2.18-3.98 [facility] Immunoglobulin E 30 IU/mL 6-495 [facility] Comment on above: Performed at: [employer] [address] [id number] Director: Ortiz Hayden PhD, Phone: [phone] at: [employer] [facility] [address] [id number] Director: Neda Sousa MD, Phone: [phone] [place] Allergen IgE Ab <0.10 kU/L Class 0 [facility] Mouse Urine Allergen IgE Antibody <0.10 kU/L [facility] 0 [facility] Comment on above: Performed at: [employer] [address] [id number] Director: Neda Sousa MD, Phone: [phone] [employer] Allergens (RAST) Negative . [facility] Comment on above: Allergens in this mi x are: Blue mussel Fish [place] Shrimp Tuna Thyroid Stimulating Hormone (TSH) 6.26 uIU/mL 0.358-3.74 [facility] [place] Tree Allergen <0.10 kU/L Class 0 [facility] No Panel Informationon 02-04 RAST Comment Comment . [facility] Work Phone: Comment on above: Levels of Specific I gE Class Description of Class ----- < 0.10 0 Negative 0.10 - 0.31 0/I Equivocal/Low 0.32 - 0.55 I Low 0.56 - 1.40 II Moderate 1.41 - 3.90 III High 3.91 - 19.00 IV Very High 19.01 - 100.00 V Very High >100.00 [facility] Platelets bldOrdered By: Dr. De La Rosa on 2022 Platelets (Bld) [#/Vol] 166 10*3/uL 150-450 [facility] Rough pigweed specific IgE a ntibody assayOrdered By: Dr. De La Rosa on 2022 Rough Pigweed IgE Qn (S) <0.10 kU/L Class 0 [facility] Serum Sierra Leonean [place]cam[place] IgE antibody assay (units/volume)Ordered By: Dr. De La Rosa on 2022 [place]an [place] IgE Qn (S) <0.10 kU/L Class 0 [facility] Serum Aspergillus fumigatus IgE antibody assay (units/volume)Ordered By: Dr. De La Rosa on 2022 A. fumigatus IgE Qn (S) <0.10 kU/L Class 0 [facility] Serum Bermuda grass IgE anti body assay (units/volume)Ordered By: Dr. De La Rosa on 2022 Bermuda grass IgE Qn (S) <0.10 kU/L Class 0 [facility] Serum Cladosporium herbarum IgE antibody assay (units/volume)Ordered By: Dr. De La Rosa on 2022 C. herbarum IgE Qn (S) <0.10 kU/L Class [address] [facility] Serum Dermatophagoides farin ae specific IgE antibody assay (units/volume)Ordered By: Dr. De La Rosa on 2022 [place]an house dust mite IgE Qn (S) <0.10 kU/L Class 0 [facility] Serum house dust mi te IgE antibody assay (units/volume)Ordered By: Dr. De La Rosa on 2022 house dust mite IgE Qn (S) <0.10 kU/L Class 0 [facility] Serum Penicillium notatum Ig E antibody assay (units/volume)Ordered By: Dr. De La Rosa on 2022 P. notatum IgE Qn (S) <0.10 kU/L Class 0 [facility] Serum Periplaneta americana IgE antibody assay (units/volume)Ordered By: Dr. De La Rosa on 2022 [place] Cockroach IgE Qn (S) <0.10 kU/L Class 0 [facility] Serum Kyrgyz thistle specif ic IgE antibody assayOrdered By: Dr. De La Rosa on 2022 Saltwort IgE Qn (S) <0.10 kU/L Class 0 [facility] Serum beef IgE antibody assa y (units/volume)Ordered By: Dr. De La Rosa on 2022 Beef IgE Qn (S) <0.10 kU/L Class 0 [facility] Serum birch specific IgE ant ibody assayOrdered By: Dr. De La Rosa on 2022 Silver Birch IgE Qn (S) <0.10 kU/L Class 0 [facility] Serum black walnut IgE antib shahana assay (units/volume)Ordered By: Dr. De La Rosa on 2022 Black [place] IgE Qn (S) <0.10 kU/L Class 0 [facility] Serum corn IgE antibody assa y (units/volume)Ordered By: Dr. De La Rosa on 2022 [place] IgE Qn (S) <0.10 kU/L Class 0 [facility] Serum cottonwood IgE antibod y assay (units/volume)Ordered By: Dr. De La Rosa on 2022 [place] IgE Qn (S) <0.10 kU/L Class 0 [facility] Serum cow milk IgE antibody assay (units/volume)Ordered By: Dr. De La Rosa on 2022 Cow milk IgE Qn (S) <0.10 kU/L Class 0 [facility] Serum dog epithelium IgE ant ibody assay (units/volume)Ordered By: Dr. De La Rosa on 2022 Dog epithelium IgE Qn (S) <0.10 kU/L Class 0 [facility] Serum mountain cedar specifi c IgE antibody assayOrdered By: Dr. De La Rosa on 2022 Mountain Juniper IgE Qn (S) <0.10 kU/L Class 0 [facility] Serum or plasma IgA measurem ent (mass/volume)Ordered By: Dr. De La Rosa on 2022 IgA [Mass/Vol] 28 mg/dL 87-352 [facility] Comment on above: Result confirmed on concentration. Serum or plasma IgG measurem ent (mass/volume)Ordered By: Dr. De La Rosa on 2022 IgG [Mass/Vol] 299 mg/dL [phone] [facility] Comment on above: Result confirmed on concentration. Serum or plasma IgM measurem ent (mass/volume)Ordered By: Dr. De La Rosa on 2022 IgM [Mass/Vol] 17 mg/dL 26-217 [facility] Comment on above: Result confirmed on concentration. Serum or plasma albumin vickie urement (mass/volume)Ordered By: Dr. De La Rosa on 2022 Albumin [Mass/Vol] 2.6 g/dL 3.2-5.0 [facility] Serum or plasma albumin/glob ulin mass ratioOrdered By: Dr. De La Rosa on 2022 Albumin/Globulin [Mass ratio] 1.0 {ratio} 0.9-2.4 [facility] Serum or plasma calcium vickie urement (mass/volume)Ordered By: Dr. De La Rosa on 2022 Calcium [Mass/Vol] 8.9 mg/dL 8.5-10.1 [facility] Serum or plasma creatinine m easurement (mass/volume)Ordered By: Dr. De La Rosa on 2022 Creatinine [Mass/Vol] 0.61 mg/dL 0.55-1.02 [facility] Comment on above: The validity of the calculated GFR & GFRAA in patients over 70 years has not been determined. Clinical correlation is essential. Serum or plasma transthyreti n measurement (mass/volume)Ordered By: Dr. De La Rosa on 2022 Prealbumin [Mass/Vol] 23.7 mg/dL 20.0-40.0 [facility] Serum or plasma urea nitroge n measurement (mass/volume)Ordered By: Dr. De La Rosa on 2022 Urea nitrogen [Mass/Vol] 26 mg/dL 7-18 [facility] Serum peanut IgE antibody as say (units/volume)Ordered By: Dr. De La Rosa on 2022 Peanut IgE Qn (S) <0.10 kU/L Class 0 [facility] Serum pecan or hickory nut I gE antibody assay (units/volume)Ordered By: Dr. De La Rosa on 2022 Pecan or [place] Nut IgE Qn (S) <0.10 kU/L Class 0 [facility] Serum pork IgE antibody assa y (units/volume)Ordered By: Dr. De La Rosa on 2022 Pork IgE Qn (S) <0.10 kU/L Class 0 [facility] Serum sheep sorrel IgE antib shahana assay (units/volume)Ordered By: Dr. De La Rosa on 2022 Sheep Swartz IgE Qn (S) <0.10 kU/L Class 0 [facility] Serum soybean IgE antibody a ssay (units/volume)Ordered By: Dr. De La Rosa on 2022 Soybean IgE Qn (S) <0.10 kU/L Class 0 [facility] Serum randy IgE antibody a ssay (units/volume)Ordered By: Dr. De La Rosa on 2022 Randy IgE Qn (S) <0.10 kU/L Class 0 [facility] Serum wheat IgE antibody ass ay (units/volume)Ordered By: Dr. De La Rosa on 2022 Wheat IgE Qn (S) <0.10 kU/L Class 0 [facility] Serum white phuong IgE antibody assay (units/volume)Ordered By: Dr. De La Rosa on 2022 White Phuong IgE Qn (S) <0.10 kU/L Class 0 [facility] Serum white elm IgE antibody assay (units/volume)Ordered By: Dr. De La Rosa on 2022 White Elm IgE Qn (S) <0.10 kU/L Class 0 [facility] Serum white mulberry IgE ant ibody assay (units/volume)Ordered By: Dr. De La Rosa on 2022 White mulberry IgE Qn (S) <0.10 kU/L Class 0 [facility] Serum whole egg IgE antibody assay (units/volume)Ordered By: Dr. De La Rosa on 2022 Whole Egg IgE Qn (S) <0.10 kU/L Class 0 [facility] Thin prep Papanicolaou smear with manual screeningOrdered By: Dr. De La Rosa on 2022 Thin prep Papanicolaou smear with manual screening 56 U/L 15-37 [facility] Thin prep Papanicolaou smear with manual screening 4 5-15 [facility] Basophil percentageOrdered B y: Dr. De La Rosa on 01-20-2022 Bilirubin [Mass/Vol] 0.30 mg/dL 0.20-1.00 [facility] Comment on above: For patients on eltr ombopag therapy, use of [place] TBIL is not recommended. Chloride [Moles/Vol] 101 mmol/L 98-107 [facility] Glucose [Mass/Vol] 58 mg/dL 74-106 [facility] Potassium [Moles/Vol] 3.8 mmol/L 3.5-5.1 [facility] Protein [Mass/Vol] 5.8 g/dL 6.4-8.2 [facility] Sodium [Moles/Vol] 136 mmol/L 136-145 [facility] Laboratory - Chemistry and C hemistry - challengeOrdered By: Dr. De La Rosa on 01-20-2022 ALP [Catalytic activity/Vol] 73 U/L 45-117 [facility] ALT [Catalytic activity/Vol] 65 U/L 13-56 [facility] CO2 [Moles/Vol] 32.0 mmol/L 21.0-32.0 [facility] Free T4 [Mass/Vol] 0.96 ng/dL 0.76-1.46 [facility] Globulin (S) [Mass/Vol] 2.8 g/dL 2.2-4.2 [facility] Sodium (U) [Moles/Vol] 10 mmol/L Not Establ. [facility] Urea nitrogen/Creatinine [Mass ratio] 44.3 mg/mg 10-20 [facility] No Panel InformationOrdered By: Dr. De La Rosa on 01-20-2022 Estimated GFR (MDRD) Amer 130 mL/min >60 [facility] Comment on above: GFR Calc Estimated GFR (MDRD) Non-Af Amer 108 mL/min >60 [facility] Comment on above: Non- GFR Calc Free Triiodothyronine (T3) pg/dL 1.7 pg/mL 2.18-3.98 [facility] Serum or plasma albumin vickie urement (mass/volume)Ordered By: Dr. De La Rosa on 01-20-2022 Albumin [Mass/Vol] 3.0 g/dL 3.2-5.0 [facility] Serum or plasma albumin/glob ulin mass ratioOrdered By: Dr. De La Rosa on 01-20-2022 Albumin/Globulin [Mass ratio] 1.1 {ratio} 0.9-2.4 [facility] Serum or plasma calcium vickie urement (mass/volume)Ordered By: Dr. De La Rosa on 01-20-2022 Calcium [Mass/Vol] 9.4 mg/dL 8.5-10.1 [facility] Serum or plasma creatinine m easurement (mass/volume)Ordered By: Dr. De La Rosa on 01-20-2022 Creatinine [Mass/Vol] 0.61 mg/dL 0.55-1.02 [facility] Comment on above: The validity of the calculated GFR & GFRAA in patients over 70 years has not been determined. Clinical correlation is essential. Serum or plasma urea nitroge n measurement (mass/volume)Ordered By: Dr. De La Rosa on 01-20-2022 Urea nitrogen [Mass/Vol] 27 mg/dL 7-18 [facility] Thin prep Papanicolaou smear with manual screeningOrdered By: Dr. De La Rosa on 01-20-2022 Thin prep Papanicolaou smear with manual screening 52 U/L 15-37 [facility] Thin prep Papanicolaou smear with manual screening 3 5-15 [facility] Thin prep Papanicolaou smear with manual screening 298 mOsm/KG 275-295 [facility] Urine osmolality measurement Ordered By: Dr. De La Rosa on 01-20-2022 Osmolality (U) [Osmolality] 509 mOsm/KG >50 [facility] Comment on above: Normal Urine Referen ce Ranges Random: 50 - 1200 mOsm/kg H20 depending on fluid intake Random: >850 mOsm/kg after 12 hour fluid restriction 24 hour: ~300 - 900 mOsm/kg H2O Laboratory - Chemistry and C hemistry - challengeOrdered By: Codie Hernandez on 01-12-2022 Free T4 [Mass/Vol] 0.95 ng/dL 0.76-1.46 [facility] Laboratory - Hematology and Cell countson 01-12-2022 HbA1c (Bld) [Mass fraction] 5.5 % 4.2-6.3 [facility] No Panel InformationOrdered By: Codie Hernandez on 01-12-2022 Thyroid Stimulating Hormone (TSH) 3.98 uIU/mL 0.358-3.74 [facility] Aldolase ser/plason 12-18-19 Aldolase [Catalytic activity/Vol] 12.4 mU/mL 3.3-10.3 [facility] Work Phone: Comment on above: Performed at: [facility] [place] [id number] Director: Ortiz Hayden PhD, Phone: [phone] Atypical perinuclear antineu trophil cytoplasmic antibodies measurementon 12-17-2021 Neutrophil cytoplasmic Ab.perinuclear.atypical IF (S) [Titer] <1:20 titer Neg:<1:20 [facility] Work Phone: Comment on above: The atypical pANCA p attern has been observed in asignificant percentage of patients with ulcerative colitis,primary sclerosing cholangitis and autoimmune hepatitis. Erythrocyte sedimentation ra linden 12-17-2021 ESR (Bld) [Velocity] 9 mm/h 0-30 [facility] Work Phone: Laboratory - Chemistry and C hemistry - challengeon 12-17-2021 CK [Catalytic activity/Vol] 709 U/L 26-192 [facility] Work Phone: No Panel Informationon 12-17 Hepatitis A IgM Antibody Negative Negative [facility] Work Phone: Hepatitis B Core IgM Antibody Negative Negative [facility] Work Phone: Hepatitis C Antibody (EIA) <0.1 s/co ratio 0.0-0.9 [facility] Work Phone: Hepatitis C Antibody Comment Comment . [facility] Work Phone: Comment on above: NegativeNot infected with HCV, unless recent infection issuspected or other evidence exists to indicate HCVinfection. Vitamin D 25-Hydroxy 51.6 ng/mL [facility] Work Phone: Comment on above: Vitamin D 25(OH) Sta tus Range Deficiency <20 ng/mL (50nmol/L) Insufficiency 20 - 30 ng/mL (50 - 75 nmol/L) Sufficiency 30 - 100 ng/mL (75 - 250 nmol/L) Toxicity >100 ng/mL (>250 nmol/L) Serum classic neutrophil cyt oplasmic antibody assay (units/volume)on 12-17-2021 Neutrophil cytoplasmic Ab.classic Qn (S) <1:20 titer Neg:<1:20 [facility] Work Phone: Serum mitochondria antibody detectionon 12-17-2021 Mitochondria Ab Ql (S) <20.0 Units 0.0-20.0 [facility] Work Phone: Comment on above: Negative 0.0 - 20.0 Equivocal 20.1 - 24.9 Positive >24.9Mitochondrial (M2) Antibodies are found in 90-96% ofpatients with primary biliary cirrhosis. Serum or plasma C reactive p rotein measurement (mass/volume)on 12-17-2021 CRP [Mass/Vol] mg/L 0.0-3.0 [facility] Work Phone: Comment on above: C-Reactive Protein ( CRP) provides useful information for thediagnosis, therapy and monitoring of inflammatory processesand associated diseases. For the evaluation of Relative Riskfor Cardiovascular Disease, a High Sensitivity CRP (HSCRP)should be ordered. Serum or plasma actin IgG an tibody assay (units/volume)on 12-17-2021 Actin IgG Qn 2 Units 0-19 [facility] Work Phone: Comment on above: Negative 0 - 19 Weak positive 20 - 30 Moderate to strong positive >30 Actin Antibodies are found in 52-85% of patients with autoimmune hepatitis or chronic active hepatitis and in 22% of patients with primary biliary cirrhosis. Serum or plasma angiotensin converting enzyme measurement (enzymatic activity/volume)on 12-17-2021 Angiotensin converting enzyme [Catalytic activity/Vol] 27 U/L 14-82 [facility] Work Phone: Serum or plasma calcitriol m easurement (mass/volume)on 12-17-2021 1,25-dihydroxyvitamin D3 [Mass/Vol] 80.4 pg/mL 24.8-81.5 [facility] Work Phone: Comment on above: Please note refere nce interval changePerformed at: [facility] [id number] [place], [place] [id number] Director: Ortiz Hayden PhD, Phone: [phone] at: [facility] [address] [id number] Director: Neda Sousa MD, Phone: [phone] Serum or plasma hepatitis B virus surface antigen detection by immunoassayon 12-17-2021 HBV surface Ag IA Ql Negative Negative [facility] Work Phone: Serum perinuclear neutrophil cytoplasmic antibody titer by immunofluorescenceon 12-17-2021 Neutrophil cytoplasmic Ab.perinuclear IF (S) [Titer] <1:20 titer Neg:<1:20 [facility] Work Phone: Comment on above: The presence of posi tive fluorescence exhibiting P-ANCA orC-ANCA patterns alone is not specific for the diagnosis ofWegener's Granulomatosis (WG) or microscopic polyangiitis.Decisions about treatment should not be based solely onANCA IFA results. The [employer] Consensusrecommends follow up testing of positive sera with both HI-3 and MPO-ANCA enzyme immunoassays. As many as 5% serumsamples are positive only by EIA. Ref. AM J Clin [id number];111:507-513. Thin prep Papanicolaou smear with manual screeningon 12-17-2021 Thin prep Papanicolaou smear with manual screening 436 U/L 84-246 [facility] Work Phone: Absolute lymphocyte counton 11-23-2021 Lymphocytes Auto (Unsp spec) [#/Vol] 0.91 10*3/uL 0.83-4.51 [facility] Work Phone: Basophil percentageon 2021 Basophils/100 WBC (Bld) 0.5 % 0-1 [facility] Work Phone: Bilirubin [Mass/Vol] 0.20 mg/dL 0.20-1.00 [facility] Work Phone: Comment on above: For patients on eltr ombopag therapy, use of [place] TBIL is not recommended. Chloride [Moles/Vol] 101 mmol/L 98-107 [facility] Work Phone: Eosinophils/100 WBC (Bld) 1.0 % 0-5 [facility] Work Phone: Glucose [Mass/Vol] 82 mg/dL 74-106 [facility] Work Phone: Neutrophils (Bld) [#/Vol] 2.9 10*3/uL 2.0-7.7 [facility] Work Phone: Neutrophils/100 WBC (Bld) 69.6 % 47-70 [facility] Work Phone: Potassium [Moles/Vol] 4.0 mmol/L 3.5-5.1 [facility] Work Phone: Protein [Mass/Vol] 6.4 g/dL 6.4-8.2 [facility] Work Phone: Sodium [Moles/Vol] 138 mmol/L 136-145 [facility] Work Phone: WBC (Bld) [#/Vol] 4.1 10*3/uL 4.4-11.0 [facility] Work Phone: Blood erythrocytes count (nu mber/volume)on 11-23-2021 RBC (Bld) [#/Vol] 3.69 10*6/uL 4.2-5.4 [facility] Work Phone: Blood hemoglobin measurement (mass/volume)on 11-23-2021 Hemoglobin (Bld) [Mass/Vol] 11.6 g/dL 12.0-15.0 [facility] Work Phone: Blood lymphocytes/100 leukoc yteson 11-23-2021 Lymphocytes/100 WBC (Bld) 22.1 % 19-41 [facility] Work Phone: Blood monocytes/100 leukocyt eson 11-23-2021 Monocytes/100 WBC (Bld) 6.8 % 0-10 [facility] Work Phone: Blood platelet mean volumeon 11-23-2021 Platelet mean volume (Bld) [Entitic vol] 12.0 fL 6.2-12.0 [facility] Work Phone: [phone] Determination of erythrocyte mean corpuscular volume (MCV)on 11-23-2021 MCV (RBC) [Entitic vol] 93.5 fL 81-99 [facility] Work Phone: Hematocrit Auto (Bld) [Volum e fraction]on 11-23-2021 Hematocrit (Bld) [Volume fraction] 34.5 % 37-47 [facility] Work Phone: [phone] Laboratory - Chemistry and C hemistry - challengeon 11-23-2021 ALP [Catalytic activity/Vol] 83 U/L 45-117 [facility] Work Phone: [phone] ALT [Catalytic activity/Vol] 83 U/L 13-56 [facility] Work Phone: [phone] CO2 [Moles/Vol] 31.0 mmol/L 21.0-32.0 [facility] Work Phone: [phone] Cobalamin (Vitamin B12) [Mass/Vol] 731 pg/mL 211-911 [facility] Work Phone: [phone] Free T4 [Mass/Vol] 0.85 ng/dL 0.76-1.46 [facility] Work Phone: [phone] Globulin (S) [Mass/Vol] 3.0 g/dL 2.2-4.2 [facility] Work Phone: [phone] Magnesium [Mass/Vol] 1.8 mg/dL 1.6-2.6 [facility] Work Phone: [phone] Urea nitrogen/Creatinine [Mass ratio] 34.1 mg/mg 10-20 [facility] Work Phone: [phone] Laboratory - Hematology and Cell countson 11-23-2021 Erythrocyte distribution width (RBC) [Entitic vol] 61.8 fL 35.1-43.9 [facility] Work Phone: Erythrocyte distribution width (RBC) [Ratio] 18.0 % 11.6-14.6 [facility] Work Phone: Immature granulocytes/100 WBC (Bld) 0.000 % 0.0-0.9 [facility] Work Phone: Comment on above: IG% - Immature Granu locytes (promyelocytes, myelocytes and metamyelocytes) > 1% indicates that a LEFT SHIFT is Present. MCH (RBC) [Entitic mass] 31.4 pg 27.0-32.0 [facility] Work Phone: Nucleated RBC/100 WBC (Bld) [Ratio] 0 % 0-5 [facility] Work Phone: MCHC Auto (RBC) [Mass/Vol]on 11-23-2021 MCHC (RBC) [Mass/Vol] 33.6 g/dL 32-36 [facility] Work Phone: No Panel Informationon 11-23 Estimated GFR (MDRD) Amer 92 mL/min >60 [facility] Work Phone: Comment on above: GFR Calc Estimated GFR (MDRD) Non-Af Amer 76 mL/min >60 [facility] Work Phone: Comment on above: Non- GFR Calc Free Triiodothyronine (T3) pg/dL 1.8 pg/mL 2.18-3.98 [facility] Work Phone: Thyroid Stimulating Hormone (TSH) 2.01 uIU/mL 0.358-3.74 [facility] Work Phone: Vitamin D 25-Hydroxy 47.4 ng/mL [facility] Work Phone: Comment on above: Vitamin D 25(OH) Sta tus Range Deficiency <20 ng/mL (50nmol/L) Insufficiency 20 - 30 ng/mL (50 - 75 nmol/L) Sufficiency 30 - 100 ng/mL (75 - 250 nmol/L) Toxicity >100 ng/mL (>250 nmol/L) Platelets bldon 11-23-2021 Platelets (Bld) [#/Vol] 207 10*3/uL 150-450 [facility] Work Phone: Serum or plasma albumin vickie urement (mass/volume)on 11-23-2021 Albumin [Mass/Vol] 3.4 g/dL 3.2-5.0 [facility] Work Phone: Serum or plasma albumin/glob ulin mass ratioon 11-23-2021 Albumin/Globulin [Mass ratio] 1.1 {ratio} 0.9-2.4 [facility] Work Phone: Serum or plasma calcium vickie urement (mass/volume)on 11-23-2021 Calcium [Mass/Vol] 9.3 mg/dL 8.5-10.1 [facility] Work Phone: Serum or plasma creatinine m easurement (mass/volume)on 11-23-2021 Creatinine [Mass/Vol] 0.82 mg/dL 0.55-1.02 [facility] Work Phone: Comment on above: The validity of the calculated GFR & GFRAA in patients over 70 years has not been determined. Clinical correlation is essential. Serum or plasma ferritin luigi surement (mass/volume)on 11-23-2021 Ferritin [Mass/Vol] 24 ng/mL 8-252 [facility] Work Phone: Serum or plasma folate measu rement (mass/volume)on 11-23-2021 Folate [Mass/Vol] 11.20 ng/mL 3.1-55.4 [facility] Work Phone: Serum or plasma urea nitroge n measurement (mass/volume)on 11-23-2021 Urea nitrogen [Mass/Vol] 28 mg/dL 7-18 [facility] Work Phone: Thin prep Papanicolaou smear with manual screeningon 11-23-2021 Thin prep Papanicolaou smear with manual screening 50 U/L 15-37 [facility] Work Phone: [phone] Thin prep Papanicolaou smear with manual screening 6 5-15 [facility] Work Phone: [phone] Basophil percentageon 2021 Ammonia (P) [Moles/Vol] 18.0 umol/L 11-32 [facility] Work Phone: [phone] Bilirubin [Mass/Vol] 0.20 mg/dL 0.20-1.00 [facility] Work Phone: [phone] Comment on above: For patients on eltr ombopag therapy, use of [place] TBIL is not recommended. Chloride [Moles/Vol] 100 mmol/L 98-107 [facility] Work Phone: [phone] Glucose [Mass/Vol] 56 mg/dL 74-106 [facility] Work Phone: [phone] Potassium [Moles/Vol] 4.0 mmol/L 3.5-5.1 [facility] Work Phone: [phone] Protein [Mass/Vol] 6.5 g/dL 6.4-8.2 [facility] Work Phone: [phone] Sodium [Moles/Vol] 135 mmol/L 136-145 [facility] Work Phone: [phone] Laboratory - Chemistry and C hemistry - challengeon 11-02-2021 Sodium (U) [Moles/Vol] 14 mmol/L Not Establ. [facility] Work Phone: [phone] ALP [Catalytic activity/Vol] 84 U/L 45-117 [facility] Work Phone: ALT [Catalytic activity/Vol] 70 U/L 13-56 [facility] Work Phone: Amylase [Catalytic activity/Vol] 11 U/L 5-55 [facility] Work Phone: CO2 [Moles/Vol] 31.0 mmol/L 21.0-32.0 [facility] Work Phone: [phone] Free T4 [Mass/Vol] 0.76 ng/dL 0.76-1.46 [facility] Work Phone: Globulin (S) [Mass/Vol] 3.0 g/dL 2.2-4.2 [facility] Work Phone: Urea nitrogen/Creatinine [Mass ratio] 33.5 mg/mg 10-20 [facility] Work Phone: No Panel Informationon 11-02 Estimated GFR (MDRD) Amer 103 mL/min >60 [facility] Work Phone: Comment on above: GFR Calc Estimated GFR (MDRD) Non-Af Amer 85 mL/min >60 [facility] Work Phone: Comment on above: Non- GFR Calc Free Triiodothyronine (T3) pg/dL 1.6 pg/mL 2.18-3.98 [facility] Work Phone: Thyroid Stimulating Hormone (TSH) 1.83 uIU/mL 0.358-3.74 [facility] Work Phone: Serum or plasma albumin vickie urement (mass/volume)on 11-02-2021 Albumin [Mass/Vol] 3.5 g/dL 3.2-5.0 [facility] Work Phone: Serum or plasma albumin/glob ulin mass ratioon 11-02-2021 Albumin/Globulin [Mass ratio] 1.2 {ratio} 0.9-2.4 [facility] Work Phone: Serum or plasma calcium vickie urement (mass/volume)on 11-02-2021 Calcium [Mass/Vol] 9.5 mg/dL 8.5-10.1 [facility] Work Phone: Serum or plasma creatinine m easurement (mass/volume)on 11-02-2021 Creatinine [Mass/Vol] 0.75 mg/dL 0.55-1.02 [facility] Work Phone: Comment on above: The validity of the calculated GFR & GFRAA in patients over 70 years has not been determined. Clinical correlation is essential. Serum or plasma urea nitroge n measurement (mass/volume)on 11-02-2021 Urea nitrogen [Mass/Vol] 25 mg/dL 7-18 [facility] Work Phone: Thin prep Papanicolaou smear with manual screeningon 11-02-2021 Thin prep Papanicolaou smear with manual screening 52 U/L 15-37 [facility] Work Phone: Thin prep Papanicolaou smear with manual screening 4 5-15 [facility] Work Phone: [phone] Thin prep Papanicolaou smear with manual screening 289 mOsm/KG 275-295 [facility] Work Phone: [phone] Urine creatinine measurement (mass/volume)on 11-02-2021 Creatinine (U) [Mass/Vol] 29.50 mg/dL NO RANGE EST. [facility] Work Phone: Urine osmolality measurement on 11-02-2021 Osmolality (U) [Osmolality] 282 mOsm/KG >50 [facility] Work Phone: Comment on above: Normal Urine Referen ce Ranges Random: 50 - 1200 mOsm/kg H20 depending on fluid intake Random: >850 mOsm/kg after 12 hour fluid restriction 24 hour: ~300 - 900 mOsm/kg H2O Absolute lymphocyte counton 10-26-2021 Lymphocytes Auto (Unsp spec) [#/Vol] 1.00 10*3/uL 0.83-4.51 [facility] Work Phone: Basophil percentageon 2021 Basophils/100 WBC (Bld) 0.7 % 0-1 [facility] Work Phone: Bilirubin [Mass/Vol] 0.20 mg/dL 0.20-1.00 [facility] Work Phone: Comment on above: For patients on eltr ombopag therapy, use of [place] TBIL is not recommended. Chloride [Moles/Vol] 96 mmol/L 98-107 [facility] Work Phone: Eosinophils/100 WBC (Bld) 0.7 % 0-5 [facility] Work Phone: Glucose [Mass/Vol] 83 mg/dL 74-106 [facility] Work Phone: Neutrophils (Bld) [#/Vol] 3.1 10*3/uL 2.0-7.7 [facility] Work Phone: Neutrophils/100 WBC (Bld) 67.7 % 47-70 [facility] Work Phone: Potassium [Moles/Vol] 4.2 mmol/L 3.5-5.1 [facility] Work [facility]: Protein [Mass/Vol] 6.4 g/dL 6.4-8.2 [facility] Work Phone: Sodium [Moles/Vol] 134 mmol/L 136-145 [facility] Work Phone: WBC (Bld) [#/Vol] 4.5 10*3/uL 4.4-11.0 [facility] Work Phone: Blood erythrocytes count (nu mber/volume)on 10-26-2021 RBC (Bld) [#/Vol] 3.60 10*6/uL 4.2-5.4 [facility] Work Phone: Blood hemoglobin measurement (mass/volume)on 10-26-2021 Hemoglobin (Bld) [Mass/Vol] 11.6 g/dL 12.0-15.0 [facility] Work Phone: Blood lymphocytes/100 leukoc yteson 10-26-2021 Lymphocytes/100 WBC (Bld) 22.1 % 19-41 [facility] Work Phone: Blood monocytes/100 leukocyt eson 10-26-2021 Monocytes/100 WBC (Bld) 8.8 % 0-10 [facility] Work Phone: Blood platelet mean volumeon 10-26-2021 Platelet mean volume (Bld) [Entitic vol] 12.0 fL 6.2-12.0 [facility] Work Phone: Determination of erythrocyte mean corpuscular volume (MCV)on 10-26-2021 MCV (RBC) [Entitic vol] 92.8 fL 81-99 [facility] Work Phone: Hematocrit Auto (Bld) [Volum e fraction]on 10-26-2021 Hematocrit (Bld) [Volume fraction] 33.4 % 37-47 [facility] Work Phone: [phone] Laboratory - Chemistry and C hemistry - challengeon 10-26-2021 ALP [Catalytic activity/Vol] 85 U/L 45-117 [facility] Work Phone: ALT [Catalytic activity/Vol] 74 U/L 13-56 [facility] Work Phone: CO2 [Moles/Vol] 32.0 mmol/L 21.0-32.0 [facility] Work Phone: Globulin (S) [Mass/Vol] 2.9 g/dL 2.2-4.2 [facility] Work Phone: Urea nitrogen/Creatinine [Mass ratio] 25.3 mg/mg 10-20 [facility] Work Phone: Laboratory - Hematology and Cell countson 10-26-2021 Erythrocyte distribution width (RBC) [Entitic vol] 59.3 fL 35.1-43.9 [facility] Work Phone: Erythrocyte distribution width (RBC) [Ratio] 17.4 % 11.6-14.6 [facility] Work Phone: Immature granulocytes/100 WBC (Bld) 0.000 % 0.0-0.9 [facility] Work Phone: Comment on above: IG% - Immature Granu locytes (promyelocytes, myelocytes and metamyelocytes) > 1% indicates that a LEFT SHIFT is Present. MCH (RBC) [Entitic mass] 32.2 pg 27.0-32.0 [facility] Work Phone: Nucleated RBC/100 WBC (Bld) [Ratio] 0 % 0-5 [facility] Work Phone: MCHC Auto (RBC) [Mass/Vol]on 10-26-2021 MCHC (RBC) [Mass/Vol] 34.7 g/dL 32-36 [facility] Work Phone: No Panel Informationon 10-26 Estimated GFR (MDRD) Amer 74 mL/min >60 [facility] Work Phone: Comment on above: GFR Calc Estimated GFR (MDRD) Non-Af Amer 62 mL/min >60 [facility] Work Phone: Comment on above: Non- GFR Calc Thyroid Stimulating Hormone (TSH) 1.45 uIU/mL 0.358-3.74 [facility] Work Phone: Platelets bldon 10-26-2021 Platelets (Bld) [#/Vol] 185 10*3/uL 150-450 [facility] Work Phone: Serum or plasma albumin vickie urement (mass/volume)on 10-26-2021 Albumin [Mass/Vol] 3.5 g/dL 3.2-5.0 [facility] Work Phone: Serum or plasma albumin/glob ulin mass ratioon 10-26-2021 Albumin/Globulin [Mass ratio] 1.2 {ratio} 0.9-2.4 [facility] Work Phone: Serum or plasma calcium vickie urement (mass/volume)on 10-26-2021 Calcium [Mass/Vol] 9.6 mg/dL 8.5-10.1 [facility] Work Phone: Serum or plasma creatinine m easurement (mass/volume)on 10-26-2021 Creatinine [Mass/Vol] 0.99 mg/dL 0.55-1.02 [facility] Work Phone: Comment on above: The validity of the calculated GFR & GFRAA in patients over 70 years has not been determined. Clinical correlation is essential. Serum or plasma urea nitroge n measurement (mass/volume)on 10-26-2021 Urea nitrogen [Mass/Vol] 25 mg/dL 7-18 [facility] Work Phone: Thin prep Papanicolaou smear with manual screeningon 10-26-2021 Thin prep Papanicolaou smear with manual screening 54 U/L 15-37 [facility] Work Phone: Thin prep Papanicolaou smear with manual screening 6 5-15 [facility] Work Phone: Laboratory - Chemistry and C hemistry - challengeon 09-22-2021 Cobalamin (Vitamin B12) [Mass/Vol] 1123 pg/mL 211-911 [facility] Work Phone: Free T4 [Mass/Vol] 0.97 ng/dL 0.76-1.46 [facility] Work Phone: No Panel Informationon 09-22 Thyroid Stimulating Hormone (TSH) 0.16 uIU/mL 0.358-3.74 [facility] Work Phone: Vitamin D 25-Hydroxy 54.6 ng/mL [facility] Work Phone: Comment on above: Vitamin D 25(OH) Sta tus Range Deficiency <20 ng/mL (50nmol/L) Insufficiency 20 - 30 ng/mL (50 - 75 nmol/L) Sufficiency 30 - 100 ng/mL (75 - 250 nmol/L) Toxicity >100 ng/mL (>250 nmol/L) Serum or plasma ferritin luigi surement (mass/volume)on 09-22-2021 Ferritin [Mass/Vol] 20 ng/mL 8-252 [facility] Work Phone: Absolute lymphocyte counton 08-18-2021 Lymphocytes Auto (Unsp spec) [#/Vol] 0.85 10*3/uL 0.83-4.51 [facility] Work Phone: Basophil percentageon 2021 Basophils/100 WBC (Bld) 0.2 % 0-1 [facility] Work Phone: Bilirubin [Mass/Vol] mg/dL 0.20-1.00 [facility] Work Phone: Comment on above: For patients on eltr ombopag therapy, use of [place] TBIL is not recommended. Chloride [Moles/Vol] 104 mmol/L 98-107 [facility] Work Phone: Eosinophils/100 WBC (Bld) 1.2 % 0-5 [facility] Work Phone: Glucose [Mass/Vol] 130 mg/dL 74-106 [facility] Work Phone: Comment on above: Fasting Glucose resu lt greater than or equal to 126 mg/dL suggests DIABETES MELLITUS per A.D.A. criteria. Neutrophils (Bld) [#/Vol] 3.6 10*3/uL 2.0-7.7 [facility] Work Phone: Neutrophils/100 WBC (Bld) 71.6 % 47-70 [facility] Work Phone: Potassium [Moles/Vol] 3.9 mmol/L 3.5-5.1 [facility] Work Phone: Protein [Mass/Vol] 6.4 g/dL 6.4-8.2 [facility] Work Phone: Sodium [Moles/Vol] 138 mmol/L 136-145 [facility] Work Phone: WBC (Bld) [#/Vol] 5.0 10*3/uL 4.4-11.0 [facility] Work Phone: Blood erythrocytes count (nu mber/volume)on 08-18-2021 RBC (Bld) [#/Vol] 3.19 10*6/uL 4.2-5.4 [facility] Work Phone: Blood hemoglobin measurement (mass/volume)on 08-18-2021 Hemoglobin (Bld) [Mass/Vol] 10.1 g/dL 12.0-15.0 [facility] Work Phone: Blood lymphocytes/100 leukoc yteson 08-18-2021 Lymphocytes/100 WBC (Bld) 16.9 % 19-41 [facility] Work Phone: Blood monocytes/100 leukocyt eson 08-18-2021 Monocytes/100 WBC (Bld) 9.9 % 0-10 [facility] Work Phone: Blood platelet mean volumeon 08-18-2021 Platelet mean volume (Bld) [Entitic vol] 12.0 fL 6.2-12.0 [facility] Work Phone: Determination of erythrocyte mean corpuscular volume (MCV)on 08-18-2021 MCV (RBC) [Entitic vol] 98.1 fL 81-99 [facility] Work Phone: Hematocrit Auto (Bld) [Volum e fraction]on 08-18-2021 Hematocrit (Bld) [Volume fraction] 31.3 % 37-47 [facility] Work Phone: [phone] Laboratory - Chemistry and C hemistry - challengeon 08-18-2021 ALP [Catalytic activity/Vol] 115 U/L 45-117 [facility] Work Phone: ALT [Catalytic activity/Vol] 55 U/L 13-56 [facility] Work Phone: CO2 [Moles/Vol] 31.0 mmol/L 21.0-32.0 [facility] Work Phone: Free T4 [Mass/Vol] 1.10 ng/dL 0.76-1.46 [facility] Work Phone: [phone] Globulin (S) [Mass/Vol] 3.0 g/dL 2.2-4.2 [facility] Work Phone: Urea nitrogen/Creatinine [Mass ratio] 41.0 mg/mg 10-20 [facility] Work Phone: Laboratory - Hematology and Cell countson 08-18-2021 Erythrocyte distribution width (RBC) [Entitic vol] 58.4 fL 35.1-43.9 [facility] Work Phone: Erythrocyte distribution width (RBC) [Ratio] 16.3 % 11.6-14.6 [facility] Work Phone: Immature granulocytes/100 WBC (Bld) 0.200 % 0.0-0.9 [facility] Work Phone: Comment on above: IG% - Immature Granu locytes (promyelocytes, myelocytes and metamyelocytes) > 1% indicates that a LEFT SHIFT is Present. MCH (RBC) [Entitic mass] 31.7 pg 27.0-32.0 [facility] Work Phone: Nucleated RBC/100 WBC (Bld) [Ratio] 0 % 0-5 [facility] Work Phone: MCHC Auto (RBC) [Mass/Vol]on 08-18-2021 MCHC (RBC) [Mass/Vol] 32.3 g/dL 32-36 [facility] Work Phone: No Panel Informationon 08-18 Estimated GFR (MDRD) Amer 106 mL/min >60 [facility] Work Phone: Comment on above: GFR Calc Estimated GFR (MDRD) Non-Af Amer 87 mL/min >60 [facility] Work Phone: Comment on above: Non- GFR Calc Free Triiodothyronine (T3) pg/dL 2.2 pg/mL 2.18-3.98 [facility] Work Phone: Thyroid Stimulating Hormone (TSH) 0.06 uIU/mL 0.358-3.74 [facility] Work Phone: Platelets bldon 08-18-2021 Platelets (Bld) [#/Vol] 282 10*3/uL 150-450 [facility] Work Phone: Serum or plasma albumin vickie urement (mass/volume)on 08-18-2021 Albumin [Mass/Vol] 3.4 g/dL 3.2-5.0 [facility] Work Phone: Serum or plasma albumin/glob ulin mass ratioon 08-18-2021 Albumin/Globulin [Mass ratio] 1.1 {ratio} 0.9-2.4 [facility] Work Phone: Serum or plasma calcium vickie urement (mass/volume)on 08-18-2021 Calcium [Mass/Vol] 9.4 mg/dL 8.5-10.1 [facility] Work Phone: Serum or plasma creatinine m easurement (mass/volume)on 08-18-2021 Creatinine [Mass/Vol] 0.73 mg/dL 0.55-1.02 [facility] Work Phone: Comment on above: The validity of the calculated GFR & GFRAA in patients over 70 years has not been determined. Clinical correlation is essential. Serum or plasma urea nitroge n measurement (mass/volume)on 08-18-2021 Urea nitrogen [Mass/Vol] 30 mg/dL 7-18 [facility] Work Phone: Thin prep Papanicolaou smear with manual screeningon 08-18-2021 Thin prep Papanicolaou smear with manual screening 33 U/L 15-37 [facility] Work Phone: Thin prep Papanicolaou smear with manual screening 3 5-15 [facility] Work Phone: Basophil percentageon 2021 Basophil percentage 3 ug/L 0-9 [facility] Work Phone: Comment on above: Detection Limit = 1 Blood mercury measurement (m ass/volume)on 06-26-2021 Mercury (Bld) [Mass/Vol] < 1.0 ug/L 0.0-14.9 [facility] Work Phone: Comment on above: Environmental Exposu re: <15.0 Occupational Exposure: [employer] - Inorganic Mercury: 15.0 Detection Limit = 1.0Performed at: - [facility] [id number] Director: Neda Sousa MD, Phone: [phone] Laboratory - Chemistry and C hemistry - challengeon 06-26-2021 Magnesium [Mass/Vol] 2.1 mg/dL 1.6-2.6 [facility] Work Phone: No Panel Informationon 06-26 Lead < 1 ug/dL 0-4 [facility] Work Phone: Comment on above: Testing performed by Inductively coupled plasma/MassSpectrometry. Environmental Exposure: WHO Recommendation <20 Occupational Exposure: OSHA Lead Std 40 [place] 30 Detection Limit = 1This test was developed and its performancecharacteristics determined by [employer]. It has not beencleared or approved by the Food and Drug Administration. Absolute lymphocyte counton 06-23-2021 Lymphocytes Auto (Unsp spec) [#/Vol] 0.44 10*3/uL 0.83-4.51 [facility] Work Phone: Basophil percentageon 2021 Basophils/100 WBC (Bld) 0.7 % 0-1 [facility] Work Phone: Bilirubin [Mass/Vol] 0.20 mg/dL 0.20-1.00 [facility] Work Phone: Comment on above: For patients on eltr ombopag therapy, use of [place] TBIL is not recommended. Chloride [Moles/Vol] 102 mmol/L 98-107 [facility] Work Phone: Eosinophils/100 WBC (Bld) 1.0 % 0-5 [facility] Work Phone: Glucose [Mass/Vol] 67 mg/dL 74-106 [facility] Work Phone: Neutrophils (Bld) [#/Vol] 2.0 10*3/uL 2.0-7.7 [facility] Work Phone: Neutrophils/100 WBC (Bld) 68.8 % 47-70 [facility] Work Phone: Potassium [Moles/Vol] 4.1 mmol/L 3.5-5.1 [facility] Work Phone: Protein [Mass/Vol] 6.1 g/dL 6.4-8.2 [facility] Work Phone: Sodium [Moles/Vol] 137 mmol/L 136-145 [facility] Work Phone: WBC (Bld) [#/Vol] 2.9 10*3/uL 4.4-11.0 [facility] Work Phone: Blood erythrocytes count (nu mber/volume)on 06-23-2021 RBC (Bld) [#/Vol] 3.24 10*6/uL 4.2-5.4 [facility]: Blood hemoglobin measurement (mass/volume)on 06-23-2021 Hemoglobin (Bld) [Mass/Vol] 10.7 g/dL 12.0-15.0 [facility] Work Phone: Blood lymphocytes/100 leukoc yteson 06-23-2021 Lymphocytes/100 WBC (Bld) 15.3 % 19-41 [facility] Work Phone: Blood manual differential co mment interpretation (narrative result)on 06-23-2021 Manual differential comment Shayne (Bld) [Interp] SCANNED [facility] Work Phone: Comment on above: LYMPHOPENIA NOTED Blood monocytes/100 leukocyt eson 06-23-2021 Monocytes/100 WBC (Bld) 13.9 % 0-10 [facility] Work Phone: Blood platelet mean volumeon 06-23-2021 Platelet mean volume (Bld) [Entitic vol] 13.2 fL 6.2-12.0 [facility] Work Phone: Determination of erythrocyte mean corpuscular volume (MCV)on 06-23-2021 MCV (RBC) [Entitic vol] 97.2 fL 81-99 [facility] Work Phone: Hematocrit Auto (Bld) [Volum e fraction]on 06-23-2021 Hematocrit (Bld) [Volume fraction] 31.5 % 37-47 [facility] Work Phone: Laboratory - Chemistry and C hemistry - challengeon 06-23-2021 ALP [Catalytic activity/Vol] 131 U/L 45-117 [facility] Work Phone: ALT [Catalytic activity/Vol] 60 U/L 13-56 [facility] Work Phone: CO2 [Moles/Vol] 33.0 mmol/L 21.0-32.0 [facility] Work Phone: [phone] Globulin (S) [Mass/Vol] 2.8 g/dL 2.2-4.2 [facility] Work Phone: [phone] T4 [Mass/Vol] 12.4 ug/dL 4.8-13.9 [facility] Work Phone: [phone] Urea nitrogen/Creatinine [Mass ratio] 37.2 mg/mg 10-20 [facility] Work Phone: [phone] Laboratory - Hematology and Cell countson 06-23-2021 Erythrocyte distribution width (RBC) [Entitic vol] 56.5 fL 35.1-43.9 [facility] Work Phone: [phone] Erythrocyte distribution width (RBC) [Ratio] 15.9 % 11.6-14.6 [facility] Work Phone: [phone] Immature granulocytes/100 WBC (Bld) 0.300 % 0.0-0.9 [facility] Work Phone: Comment on above: IG% - Immature Granu locytes (promyelocytes, myelocytes and metamyelocytes) > 1% indicates that a LEFT SHIFT is Present. MCH (RBC) [Entitic mass] 33.0 pg 27.0-32.0 [facility] Work Phone: Nucleated RBC/100 WBC (Bld) [Ratio] 0 % 0-5 [facility] Work Phone: [phone] MCHC Auto (RBC) [Mass/Vol]on 06-23-2021 MCHC (RBC) [Mass/Vol] 34.0 g/dL 32-36 [facility] Work Phone: [phone] No Panel Informationon 06-23 Estimated GFR (MDRD) Amer 98 mL/min >60 [facility] Work Phone: Comment on above: GFR Calc Estimated GFR (MDRD) Non-Af Amer 81 mL/min >60 [facility] Work Phone: Comment on above: Non- GFR Calc Urine Microalbumin/Creatinine Ratio 23.3 mg/g CRE <30 [facility] Work Phone: Platelets bldon 06-23-2021 Platelets (Bld) [#/Vol] 210 10*3/uL 150-450 [facility] Work Phone: Review by pathologiston 05-27 Pathologist review Shayne (Unsp spec) [Interp] Reviewed [facility] Work Phone: Comment on above: Previous reported re sult: Kristi de paz Edited by: KRIS on 06/24/21:1253Leukopenia and Normocytic anemia.Clinical correlation necessary.Julio Barrientos M.D. 06/24/21 AMENDED REPORT 06/24/21 1253 PATH REV previously reported as: Kristi de paz Serum or plasma albumin vickie urement (mass/volume)on 06-23-2021 Albumin [Mass/Vol] 3.3 g/dL 3.2-5.0 [facility] Work Phone: Serum or plasma albumin/glob ulin mass ratioon 06-23-2021 Albumin/Globulin [Mass ratio] 1.2 {ratio} 0.9-2.4 [facility] Work Phone: Serum or plasma calcium vickie urement (mass/volume)on 06-23-2021 Calcium [Mass/Vol] 9.2 mg/dL 8.5-10.1 [facility] Work Phone: Serum or plasma creatinine m easurement (mass/volume)on 06-23-2021 Creatinine [Mass/Vol] 0.78 mg/dL 0.55-1.02 [facility] Work Phone: Comment on above: The validity of the calculated GFR & GFRAA in patients over 70 years has not been determined. Clinical correlation is essential. Serum or plasma urea nitroge n measurement (mass/volume)on 06-23-2021 Urea nitrogen [Mass/Vol] 29 mg/dL 7-18 [facility] Work Phone: Thin prep Papanicolaou smear with manual screeningon 06-23-2021 Thin prep Papanicolaou smear with manual screening 31 U/L 15-37 [facility] Work Phone: Thin prep Papanicolaou smear with manual screening 2 5-15 [facility] Work Phone: Thin prep Papanicolaou smear with manual screening 11.2 mg/L NO RANGE EST. [facility] Work Phone: Urine creatinine measurement (mass/volume)on 06-23-2021 Creatinine (U) [Mass/Vol] 48.10 mg/dL NO RANGE EST. [facility] Work Phone: Basophil percentageon 2021 Bilirubin [Mass/Vol] 0.20 mg/dL 0.20-1.00 [facility] Work Phone: Comment on above: For patients on eltr ombopag therapy, use of [place] TBIL is not recommended. Chloride [Moles/Vol] 99 mmol/L 98-107 [facility] Work Phone: [phone] Glucose [Mass/Vol] 85 mg/dL 74-106 [facility] Work Phone: [phone] Potassium [Moles/Vol] 3.7 mmol/L 3.5-5.1 [facility] Work Phone: [phone] Protein [Mass/Vol] 6.2 g/dL 6.4-8.2 [facility] Work Phone: [phone] Sodium [Moles/Vol] 136 mmol/L 136-145 [facility] Work Phone: [phone] Laboratory - Chemistry and C hemistry - challengeon 06-09-2021 ALP [Catalytic activity/Vol] 124 U/L 45-117 [facility] Work Phone: ALT [Catalytic activity/Vol] 97 U/L 13-56 [facility] Work Phone: Amylase [Catalytic activity/Vol] 12 U/L 5-55 [facility] Work Phone: CO2 [Moles/Vol] 34.0 mmol/L 21.0-32.0 [facility] Work Phone: Globulin (S) [Mass/Vol] 3.1 g/dL 2.2-4.2 [facility] Work Phone: Magnesium [Mass/Vol] 2.2 mg/dL 1.6-2.6 [facility] Work [facility]: T4 [Mass/Vol] 13.9 ug/dL 4.8-13.9 [facility] Work Phone: Urea nitrogen/Creatinine [Mass ratio] 45.4 mg/mg 10-20 [facility] Work Phone: No Panel Informationon 06-09 Estimated GFR (MDRD) Amer 154 mL/min >60 [facility] Work Phone: Comment on above: GFR Calc Estimated GFR (MDRD) Non-Af Amer 127 mL/min >60 [facility] Work Phone: Comment on above: Non- GFR Calc Total Triiodothyronine 1.21 ng/mL 0.6-1.[address] [facility] Work Phone: Serum or plasma albumin vickie urement (mass/volume)on 06-09-2021 Albumin [Mass/Vol] 3.1 g/dL 3.2-5.0 [facility] Work Phone: Serum or plasma albumin/glob ulin mass ratioon 06-09-2021 Albumin/Globulin [Mass ratio] 1.0 {ratio} 0.9-2.4 [facility] Work Phone: Serum or plasma calcium vickie urement (mass/volume)on 06-09-2021 Calcium [Mass/Vol] 9.1 mg/dL 8.5-10.1 [facility] Work Phone: Serum or plasma creatinine m easurement (mass/volume)on 06-09-2021 Creatinine [Mass/Vol] 0.53 mg/dL 0.55-1.02 [facility] Work Phone: Comment on above: The validity of the calculated GFR & GFRAA in patients over 70 years has not been determined. Clinical correlation is essential. Serum or plasma urea nitroge n measurement (mass/volume)on 06-09-2021 Urea nitrogen [Mass/Vol] 24 mg/dL 7-18 [facility] Work Phone: Thin prep Papanicolaou smear with manual screeningon 06-09-2021 Thin prep Papanicolaou smear with manual screening 48 U/L 15-37 [facility] Work Phone: Thin prep Papanicolaou smear with manual screening 3 5-15 [facility] Work Phone: No Panel Informationon 06-01 Total Triiodothyronine 0.76 ng/mL 0.6-1.[address] [facility] Work Phone: Absolute lymphocyte counton 05-31-2021 Lymphocytes Auto (Unsp spec) [#/Vol] 0.33 10*3/uL 0.83-4.51 [facility] Work Phone: Basophil percentageon 2021 Basophil percentage 0-5 SEEN /hpf 0-[address] [facility] Work Phone: Basophils/100 WBC (Bld) 0.2 % 0-1 [facility] Work Phone: Bilirubin [Mass/Vol] 0.20 mg/dL 0.20-1.00 [facility] Work Phone: Comment on above: For patients on eltr ombopag therapy, use of [place] TBIL is not recommended. Chloride [Moles/Vol] 106 mmol/L 98-107 [facility] Work Phone: Eosinophils/100 WBC (Bld) 0.3 % 0-5 [facility] Work Phone: Glucose [Mass/Vol] 106 mg/dL 74-106 [facility] Work Phone: Comment on above: Fasting Glucose resu lt from 100 to 125 mg/dL suggests IMPAIRED HOMEOSTASIS per A.D.A. criteria. Neutrophils (Bld) [#/Vol] 5.5 10*3/uL 2.0-7.7 [facility] Work Phone: Neutrophils/100 WBC (Bld) 88.3 % 47-70 [facility] Work Phone: Potassium [Moles/Vol] 4.1 mmol/L 3.5-5.1 [facility] Work Phone: Protein [Mass/Vol] 5.5 g/dL 6.4-8.2 [facility] Work Phone: Sodium [Moles/Vol] 139 mmol/L 136-145 [facility] Work Phone: WBC (Bld) [#/Vol] 6.3 10*3/uL 4.4-11.0 [facility] Work Phone: [phone] Bilirubin Test strip Ql (U)o n 05-31-2021 Bilirubin Ql (U) Negative Negative [facility] Work Phone: Blood erythrocytes count (nu mber/volume)on 05-31-2021 RBC (Bld) [#/Vol] 3.01 10*6/uL 4.2-5.4 [facility] Work Phone: Blood hemoglobin measurement (mass/volume)on 05-31-2021 Hemoglobin (Bld) [Mass/Vol] 10.3 g/dL 12.0-15.0 [facility] Work Phone: Blood lymphocytes/100 leukoc yteson 05-31-2021 Lymphocytes/100 WBC (Bld) 5.3 % 19-41 [facility] Work Phone: Blood monocytes/100 leukocyt eson 05-31-2021 Monocytes/100 WBC (Bld) 5.6 % 0-10 [facility] Work Phone: Blood platelet adequacy dete ction by light microscopyon 05-31-2021 Platelets LM Ql (Bld) ADEQUATE ADEQ [facility] Work Phone: Blood platelet mean volumeon 05-31-2021 Platelet mean volume (Bld) [Entitic vol] 11.1 fL 6.2-12.0 [facility] Work Phone: Determination of erythrocyte mean corpuscular volume (MCV)on 05-31-2021 MCV (RBC) [Entitic vol] 96.0 fL 81-99 [facility] Work Phone: [phone] Hematocrit Auto (Bld) [Volum e fraction]on 05-31-2021 Hematocrit (Bld) [Volume fraction] 28.9 % 37-47 [facility] Work Phone: [phone] Ketones Test strip Ql (U)on 05-31-2021 Ketones Ql (U) Negative Negative [facility] Work Phone: Laboratory - Chemistry and C hemistry - challengeon 05-31-2021 ALP [Catalytic activity/Vol] 99 U/L 45-117 [facility] Work Phone: [phone] ALT [Catalytic activity/Vol] 110 U/L 13-56 [facility] Work Phone: [phone] CO2 [Moles/Vol] 29.0 mmol/L 21.0-32.0 [facility] Work Phone: [phone] Globulin (S) [Mass/Vol] 3.1 g/dL 2.2-4.2 [facility] Work Phone: [phone] T4 [Mass/Vol] 13.0 ug/dL 4.8-13.9 [facility] Work Phone: [phone] Urea nitrogen/Creatinine [Mass ratio] 51.0 mg/mg 10-20 [facility] Work Phone: [phone] Laboratory - Hematology and Cell countson 05-31-2021 Erythrocyte distribution width (RBC) [Entitic vol] 53.1 fL 35.1-43.9 [facility] Work Phone: [phone] Erythrocyte distribution width (RBC) [Ratio] 15.6 % 11.6-14.6 [facility] Work Phone: [phone] Immature granulocytes/100 WBC (Bld) 0.300 % 0.0-0.9 [facility] Work Phone: Comment on above: IG% - Immature Granu locytes (promyelocytes, myelocytes and metamyelocytes) > 1% indicates that a LEFT SHIFT is Present. MCH (RBC) [Entitic mass] 34.2 pg 27.0-32.0 [facility] Work Phone: Nucleated RBC/100 WBC (Bld) [Ratio] 0 % 0-5 [facility] Work Phone: MCHC Auto (RBC) [Mass/Vol]on 05-31-2021 MCHC (RBC) [Mass/Vol] 35.6 g/dL 32-36 [facility] Work Phone: Mucus LM Ql (Urine sed)on Mucus Ql (Urine sed) 0 SEEN /hpf [facility] Work Phone: Nitrite Test strip Ql (U)on 05-31-2021 Nitrite Ql (U) Negative Negative [facility] Work Phone: No Panel Informationon 05-31 Estimated Creatinine Clearance Calc 93.98 ml/min [facility] Work Phone: Estimated GFR (MDRD) Amer 122 mL/min >60 [facility] Work Phone: Comment on above: GFR Calc Estimated GFR (MDRD) Non-Af Amer 101 mL/min >60 [facility] Work Phone: Comment on above: Non- GFR Calc Thyroid Stimulating Hormone (TSH) 3.95 uIU/mL 0.358-3.74 [facility] Work Phone: Platelets bldon 05-31-2021 Platelets (Bld) [#/Vol] 314 10*3/uL 150-450 [facility] Work Phone: Protein Test strip Ql (U)on 05-31-2021 Protein Ql (U) 15 mg/dl Negative [facility] Work Phone: RBC morphologyon 05-31-2021 RBC morphology finding Nom (Bld) NORM C+C NORMAL NORM C&C [facility] Work Phone: Serum or plasma albumin vickie urement (mass/volume)on 05-31-2021 Albumin [Mass/Vol] 2.4 g/dL 3.2-5.0 [facility] Work Phone: Serum or plasma albumin/glob ulin mass ratioon 05-31-2021 Albumin/Globulin [Mass ratio] 0.8 {ratio} 0.9-2.4 [facility] Work Phone: Serum or plasma calcium vickie urement (mass/volume)on 05-31-2021 Calcium [Mass/Vol] 9.1 mg/dL 8.5-10.1 [facility] Work Phone: Serum or plasma creatinine m easurement (mass/volume)on 05-31-2021 Creatinine [Mass/Vol] 0.65 mg/dL 0.55-1.02 [facility] Work Phone: Comment on above: The validity of the calculated GFR & GFRAA in patients over 70 years has not been determined. Clinical correlation is essential. Serum or plasma urea nitroge n measurement (mass/volume)on 05-31-2021 Urea nitrogen [Mass/Vol] 33 mg/dL 7-18 [facility] Work Phone: Squamous epithelial cells de tection in urine sediment by light microscopyon 05-31-2021 Epithelial cells.squamous LM Ql (Urine sed) 0 SEEN /hpf 5-10 [facility] Work Phone: Thin prep Papanicolaou smear with manual screeningon 05-31-2021 Thin prep Papanicolaou smear with manual screening 66 U/L 15-37 [facility] Work Phone: Thin prep Papanicolaou smear with manual screening 4 5-15 [facility] Work Phone: Urine blood detectionon RBC Ql (U) Negative Negative [facility] Work Phone: RBC Ql (U) 0 SEEN /hpf 0-5 [facility] Work Phone: Urine clarityon 05-31-2021 Clarity (U) Clear Clear [facility] Work Phone: Urine color determinationon 05-31-2021 Color (U) Yellow Yellow [facility] Work Phone: Urine glucose detectionon Glucose Ql (U) Normal mg/dl Normal [facility] Work Phone: Urine leukocyte esterase det ection by dipstickon 05-31-2021 Leukocyte esterase Test strip Ql (U) Negative Negative [facility] Work Phone: Urine pHon 05-31-2021 pH (U) 5.0 [pH] 5.0 - 8.0 [facility] Work Phone: Urine sediment bacteria coun t by microscopy (number/high power field)on 05-31-2021 Bacteria LM.HPF (Urine sed) [#/Area] 0 /[HPF] None Seen [facility] Work Phone: Urine specific gravity measu rementon 05-31-2021 Specific gravity (U) [Rel density] 1.025 1.002-1.030 [facility] Work Phone: Urobilinogen Auto test strip Ql (U)on 05-31-2021 Urobilinogen Ql (U) Normal mg/dl Normal [facility] Work Phone: Basophil percentageon 2021 Bilirubin [Mass/Vol] 0.20 mg/dL 0.20-1.00 [facility] Work Phone: Comment on above: For patients on eltr ombopag therapy, use of [place] TBIL is not recommended. Chloride [Moles/Vol] 105 mmol/L 98-107 [facility] Work Phone: Glucose [Mass/Vol] 89 mg/dL 74-106 [facility] Work Phone: Potassium [Moles/Vol] 4.4 mmol/L 3.5-5.1 [facility] Work Phone: Protein [Mass/Vol] 5.3 g/dL 6.4-8.2 [facility] Work Phone: Sodium [Moles/Vol] 138 mmol/L 136-145 [facility] Work Phone: [phone] WBC (Bld) [#/Vol] 8.8 10*3/uL 4.4-11.0 [facility] Work Phone: Blood erythrocytes count (nu mber/volume)on 05-25-2021 RBC (Bld) [#/Vol] 3.22 10*6/uL 4.2-5.4 [facility]: [phone] Blood hemoglobin measurement (mass/volume)on 05-25-2021 Hemoglobin (Bld) [Mass/Vol] 10.6 g/dL 12.0-15.0 [facility] Work Phone: Blood platelet mean volumeon 05-25-2021 Platelet mean volume (Bld) [Entitic vol] 11.9 fL 6.2-12.0 [facility] Work Phone: [phone] Determination of erythrocyte mean corpuscular volume (MCV)on 05-25-2021 MCV (RBC) [Entitic vol] 97.5 fL 81-99 [facility] Work Phone: Hematocrit Auto (Bld) [Volum e fraction]on 05-25-2021 Hematocrit (Bld) [Volume fraction] 31.4 % 37-47 [facility] Work Phone: [phone] Laboratory - Chemistry and C hemistry - challengeon 05-25-2021 ALP [Catalytic activity/Vol] 121 U/L 45-117 [facility] Work Phone: ALT [Catalytic activity/Vol] 171 U/L 13-56 [facility] Work Phone: CO2 [Moles/Vol] 31.0 mmol/L 21.0-32.0 [facility] Work Phone: [phone] Free T4 [Mass/Vol] 1.44 ng/dL 0.76-1.46 [facility] Work Phone: Globulin (S) [Mass/Vol] 3.0 g/dL 2.2-4.2 [facility] Work Phone: Magnesium [Mass/Vol] 2.0 mg/dL 1.6-2.[address] [facility] Work Phone: Urea nitrogen/Creatinine [Mass ratio] 55.8 mg/mg 10-20 [facility] Work Phone: Laboratory - Hematology and Cell countson 05-25-2021 Erythrocyte distribution width (RBC) [Entitic vol] 56.3 fL 35.1-43.9 [facility] Work Phone: Erythrocyte distribution width (RBC) [Ratio] 15.8 % 11.6-14.6 [facility] Work Phone: MCH (RBC) [Entitic mass] 32.9 pg 27.0-32.0 [facility] Work Phone: MCHC Auto (RBC) [Mass/Vol]on 05-25-2021 MCHC (RBC) [Mass/Vol] 33.8 g/dL 32-36 [facility] Work Phone: No Panel Informationon 05-25 Estimated GFR (MDRD) Amer 122 mL/min >60 [facility] Work Phone: Comment on above: GFR Calc Estimated GFR (MDRD) Non-Af Amer 101 mL/min >60 [facility] Work Phone: Comment on above: Non- GFR Calc Free Triiodothyronine (T3) pg/dL 1.6 pg/mL 2.18-3.98 [facility] Work Phone: Platelets bldon 05-25-2021 Platelets (Bld) [#/Vol] 211 10*3/uL 150-450 [facility] Work Phone: Serum or plasma albumin vickie urement (mass/volume)on 05-25-2021 Albumin [Mass/Vol] 2.3 g/dL 3.2-5.0 [facility] Work Phone: Serum or plasma albumin/glob ulin mass ratioon 05-25-2021 Albumin/Globulin [Mass ratio] 0.8 {ratio} 0.9-2.4 [facility] Work Phone: Serum or plasma calcium vickie urement (mass/volume)on 05-25-2021 Calcium [Mass/Vol] 9.6 mg/dL 8.5-10.1 [facility] Work Phone: Serum or plasma creatinine m easurement (mass/volume)on 05-25-2021 Creatinine [Mass/Vol] 0.64 mg/dL 0.55-1.02 [facility] Work Phone: Comment on above: The validity of the calculated GFR & GFRAA in patients over 70 years has not been determined. Clinical correlation is essential. Serum or plasma urea nitroge n measurement (mass/volume)on 05-25-2021 Urea nitrogen [Mass/Vol] 36 mg/dL 7-18 [facility] Work Phone: Thin prep Papanicolaou smear with manual screeningon 05-25-2021 Thin prep Papanicolaou smear with manual screening 104 U/L 15-37 [facility] Work Phone: Thin prep Papanicolaou smear with manual screening 2 5-15 [facility] Work Phone: Basophil percentageon 2021 Bilirubin [Mass/Vol] 0.20 mg/dL 0.20-1.00 [facility] Work Phone: Comment on above: For patients on eltr ombopag therapy, use of [place] TBIL is not recommended. Chloride [Moles/Vol] 95 mmol/L 98-107 [facility] Work Phone: Glucose [Mass/Vol] 74 mg/dL 74-106 [facility] Work Phone: Potassium [Moles/Vol] 3.5 mmol/L 3.5-5.1 [facility] Work Phone: Protein [Mass/Vol] 3.9 g/dL 6.4-8.2 [facility] Work Phone: [phone] Sodium [Moles/Vol] 131 mmol/L 136-145 [facility] Work Phone: Direct bilirubinon Bilirubin.direct [Mass/Vol] mg/dL 0.00-0.30 [facility] Work Phone: Laboratory - Chemistry and C hemistry - challengeon 05-20-2021 ALP [Catalytic activity/Vol] 103 U/L 45-117 [facility] Work Phone: ALT [Catalytic activity/Vol] 193 U/L 13-56 [facility] Work Phone: CO2 [Moles/Vol] 33.0 mmol/L 21.0-32.0 [facility] Work Phone: Globulin (S) [Mass/Vol] 2.4 g/dL 2.2-4.2 [facility] Work Phone: [phone] Magnesium [Mass/Vol] 2.0 mg/dL 1.6-2.6 [facility] Work Phone: Urea nitrogen/Creatinine [Mass ratio] 29.9 mg/mg 10-20 [facility] Work Phone: No Panel Informationon 05-20 Estimated Creatinine Clearance Calc 124.36 ml/min [facility] Work Phone: Estimated GFR (MDRD) Amer 163 mL/min >60 [facility] Work Phone: Comment on above: GFR Calc Estimated GFR (MDRD) Non-Af Amer 135 mL/min >60 [facility] Work Phone: Comment on above: Non- GFR Calc Serum or plasma albumin vickie urement (mass/volume)on 05-20-2021 Albumin [Mass/Vol] 1.5 g/dL 3.2-5.0 [facility] Work Phone: Serum or plasma calcium vickie urement (mass/volume)on 05-20-2021 Calcium [Mass/Vol] 8.4 mg/dL 8.5-10.1 [facility] Work Phone: Serum or plasma creatinine m easurement (mass/volume)on 05-20-2021 Creatinine [Mass/Vol] 0.50 mg/dL 0.55-1.02 [facility] Work Phone: Comment on above: The validity of the calculated GFR & GFRAA in patients over 70 years has not been determined. Clinical correlation is essential. Serum or plasma urea nitroge n measurement (mass/volume)on 05-20-2021 Urea nitrogen [Mass/Vol] 15 mg/dL 7-18 [facility] Work Phone: [phone] Thin prep Papanicolaou smear with manual screeningon 05-20-2021 Thin prep Papanicolaou smear with manual screening 177 U/L 15-37 [facility] Work Phone: [phone] Thin prep Papanicolaou smear with manual screening 3 5-15 [facility] Work Phone: [phone] Absolute lymphocyte counton 05-19-2021 Lymphocytes Auto (Unsp spec) [#/Vol] 0.28 10*3/uL 0.83-4.51 [facility] Work Phone: [phone] Basophil percentageon 2021 Basophils/100 WBC (Bld) 0.3 % 0-1 [facility] Work Phone: Eosinophils/100 WBC (Bld) 0.3 % 0-5 [facility] Work Phone: Neutrophils (Bld) [#/Vol] 3.4 10*3/uL 2.0-7.7 [facility] Work Phone: Neutrophils/100 WBC (Bld) 88.1 % 47-70 [facility] Work Phone: WBC (Bld) [#/Vol] 3.8 10*3/uL 4.4-11.0 [facility] Work Phone: [phone] Blood erythrocytes count (nu mber/volume)on 05-19-2021 RBC (Bld) [#/Vol] 3.14 10*6/uL 4.2-5.4 [facility]: [phone] Blood hemoglobin measurement (mass/volume)on 05-19-2021 Hemoglobin (Bld) [Mass/Vol] 10.2 g/dL 12.0-15.0 [facility] Work Phone: Blood lymphocytes/100 leukoc yteson 05-19-2021 Lymphocytes/100 WBC (Bld) 7.3 % 19-41 [facility] Work Phone: Blood monocytes/100 leukocyt eson 05-19-2021 Monocytes/100 WBC (Bld) 3.7 % 0-10 [facility] Work Phone: [phone] Blood platelet mean volumeon 05-19-2021 Platelet mean volume (Bld) [Entitic vol] 12.2 fL 6.2-12.0 [facility] Work Phone: [phone] Determination of erythrocyte mean corpuscular volume (MCV)on 05-19-2021 MCV (RBC) [Entitic vol] 89.8 fL 81-99 [facility] Work Phone: [phone] Hematocrit Auto (Bld) [Volum e fraction]on 05-19-2021 Hematocrit (Bld) [Volume fraction] 28.2 % 37-47 [facility] Work Phone: [phone] Laboratory - Hematology and Cell countson 05-19-2021 Erythrocyte distribution width (RBC) [Entitic vol] 46.5 fL 35.1-43.9 [facility] Work Phone: [phone] Erythrocyte distribution width (RBC) [Ratio] 14.4 % 11.6-14.6 [facility] Work Phone: [phone] Immature granulocytes/100 WBC (Bld) 0.300 % 0.0-0.9 [facility] Work Phone: [phone] Comment on above: IG% - Immature Granu locytes (promyelocytes, myelocytes and metamyelocytes) > 1% indicates that a LEFT SHIFT is Present. MCH (RBC) [Entitic mass] 32.5 pg 27.0-32.0 [facility] Work Phone: Nucleated RBC/100 WBC (Bld) [Ratio] 0 % 0-5 [facility] Work Phone: MCHC Auto (RBC) [Mass/Vol]on 05-19-2021 MCHC (RBC) [Mass/Vol] 36.2 g/dL 32-36 [facility] Work Phone: No Panel Informationon 05-19 SARS-CoV-2 Antigen (Rapid) [facility] Work Phone: Troponin I High Sensitivity 17 pg/mL 3.0-54.0 [facility] Work Phone: Comment on above: Please Note: New Sandra t Units and Gender Specific Reference Ranges. For more information see Policy Stat Procedure [place] High Sensitivity Troponin (TNIH) and attachments. Platelets bldon 05-19-2021 Platelets (Bld) [#/Vol] 81 10*3/uL 150-450 [facility] Work Phone: Review by pathologiston 04-29 Pathologist review Shayne (Unsp spec) [Interp] Reviewed [facility] Work Phone: Comment on above: Previous reported re sult: Kristi de paz Edited by: RGOOD on 05/19/21:1520Pancytopenia.LeukopeniaNormocytic anemia.Thrombocytopenia.Clinical correlation necessary.Julio Barrientos M.D. 05/19/21 AMENDED REPORT 05/19/21 1520 PATH REV previously reported as: Kristi de paz Basophil percentageon 2021 Basophil percentage < 0.2 AI [facility] Work Phone: Erythrocyte sedimentation ra linden 05-18-2021 ESR (Bld) [Velocity] 15 mm/h 0-30 [facility] Work Phone: Glucose Glucometer (BldC) [M ass/Vol]on 05-18-2021 Glucose [Mass/Vol] 93 mg/dL 70-110 [facility] Work Phone: Comment on above: MANAGEMENT OF PATIEN T CARE PER NURSING PROTOCOL Laboratory - Chemistry and C hemistry - challengeon 05-18-2021 Albumin [Mass/Vol] 2.0 g/dL [facility] Work Phone: CK [Catalytic activity/Vol] 281 U/L 26-192 [facility] Work Phone: No Panel Informationon 05-18 Addendum Document Comment [facility] Work Phone: Comment on above: The SPE pattern refl ects hypogammaglobulinemia. Loweredgamma globulin levels may be found with monoclonalgammopathies, B-cell deficiency states, protein losingdiseases, or may be transient in children. Serumimmunofixation and examination of the urine for Bence Jonesprotein may be indicated if warranted by the clinicalpicture.Performed at: [employer] [address] [id number] Director: Ortiz Hayden PhD, Phone: [phone] [id number] 0.4 g/dL [facility] Work Phone: Agjpf-3-Ploajyban 0.6 g/dL [facility] Work Phone: Centromere B Antibody <0.2 [facility] Work Phone: Gamma Globulins 0.2 g/dL [facility] Work Phone: Immunoglobulin E 30 IU/mL [facility] Work Phone: Comment on above: Performed at: [employer] [facility] [place] [id number] Director: Ortiz Hayden PhD, Phone: [phone] at: [employer] [address] [id number] Director: Neda Sousa MD, Phone: [phone] [employer]JECT[employer] DEVELOPER Antibody <0.2 AI [facility] Work Phone: Thyroid Stimulating Hormone (TSH) 5.51 uIU/mL 0.358-3.74 [facility] Work Phone: Protein Fractions Elph [Inte rp]on 05-18-2021 Protein Fractions [Interp] Comment [facility] Work Phone: Comment on above: Protein electrophore sis scan will follow via computer,mail, or instructional support technician delivery. Serum DNA double strand anti body assay (units/volume)on 05-18-2021 DNA double strand Ab Qn (S) [IU]/mL [facility] Work Phone: Comment on above: Negative <5 Equivoca l 5 - 9 Positive >9 Serum Bisi-1 antibody assay (u nits/volume)on 05-18-2021 Bisi-1 extractable nuclear Ab Qn (S) <0.2 [facility] Work Phone: Serum Scl-70 extractable nuc lear antibody assay (units/volume)on 05-18-2021 SCL-70 extractable nuclear Ab Qn (S) <0.2 AI [facility] Work Phone: Serum [place] extractable nucl ear antibody detectionon 05-18-2021 [place] extractable nuclear Ab Ql (S) <0.2 AI [facility] Work Phone: Serum albumin to globulin ra cathy by protein electrophoresison 05-18-2021 Albumin/Globulin Elph [Mass ratio] 1.1 [facility] Work Phone: Serum globulin measurement ( mass/volume)on 05-18-2021 Globulin (S) [Mass/Vol] 1.9 g/dL [facility] Work Phone: Serum mitochondria antibody detectionon 05-18-2021 Mitochondria Ab Ql (S) <20.0 Units [facility] Work Phone: Comment on above: Negative 0.0 - 20.0 Equivocal 20.1 - 24.9 Positive >24.9Mitochondrial (M2) Antibodies are found in 90-96% ofpatients with primary biliary cirrhosis.Performed at: [facility] [id number] Director: Ortiz Hayden PhD, Phone: [phone] Serum or plasma C reactive p rotein measurement (mass/volume)on 05-18-2021 CRP [Mass/Vol] 12.30 mg/L 0.0-3.0 [facility] Work Phone: Comment on above: C-Reactive Protein ( CRP) provides useful information for thediagnosis, therapy and monitoring of inflammatory processesand associated diseases. For the evaluation of Relative Riskfor Cardiovascular Disease, a High Sensitivity CRP (HSCRP)should be ordered. Serum or plasma IgA measurem ent (mass/volume)on 05-18-2021 IgA [Mass/Vol] 20 mg/dL [facility] Work Phone: Comment on above: Result confirmed on concentration. Serum or plasma IgG measurem ent (mass/volume)on 05-18-2021 IgG [Mass/Vol] 129 mg/dL [facility] Work Phone: Comment on above: Result confirmed on concentration. Serum or plasma IgM measurem ent (mass/volume)on 05-18-2021 IgM [Mass/Vol] 12 mg/dL [facility] Work Phone: Comment on above: Result confirmed on concentration. Serum or plasma actin IgG an tibody assay (units/volume)on 05-18-2021 Actin IgG Qn 1 Units [facility] Work Phone: Comment on above: Negative 0 - 19 Weak positive 20 - 30 Moderate to strong positive >30 Actin Antibodies are found in 52-85% of patients with autoimmune hepatitis or chronic active hepatitis and in 22% of patients with primary biliary cirrhosis.Performed at: [address] [id number] Director: Ortiz Hayden PhD, Phone: [phone] Serum or plasma albumin/glob ulin mass ratioon 05-18-2021 Albumin/Globulin [Mass ratio] 0.6 {ratio} 0.9-2.4 [facility] Work Phone: Serum or plasma beta globuli n measurement by electrophoresis (mass/volume)on 05-18-2021 Beta globulin Elph [Mass/Vol] 0.7 g/dL [facility] Work Phone: Serum or plasma cortisol luigi surement (mass/volume)on 05-18-2021 Cortisol [Mass/Vol] 38.20 ug/dL 3.44-22.45 [facility] Work Phone: Comment on above: Adult (AM) 5.27 - 22 .45 ug/dL Adult (PM) 3.44 - 16.76 ug/dLPlease note revised CORTISOL reference range effective 2019. Serum or plasma prolactin me asurement (mass/volume)on 05-18-2021 Prolactin [Mass/Vol] 9.2 ng/mL [facility] Work Phone: Comment on above: NORMAL REFERENCE RAN GES FEMALE NON- 2.2 - 30.3 ng/mL 8.1 - 347.6 ng/mL POST-MENOPAUSAL 0.7 - 31.5 ng/mL MALE 2.5 - 17.4 ng/mL Thin prep Papanicolaou smear with manual screeningon 05-18-2021 Thin prep Papanicolaou smear with manual screening See comment [facility] Work Phone: Comment on above: Result: Not Observed Thin prep Papanicolaou smear with manual screening 322 U/L 84-246 [facility] Work Phone: Total protein bloodon 2021 Protein [Mass/Vol] 3.9 g/dL [facility] Work Phone: Urine protein measurement (m ass/volume)on 05-18-2021 Protein (U) [Mass/Vol] 6.2 mg/dL 0.0-11.[address] [facility] Work Phone: Blood manual differential co mment interpretation (narrative result)on 05-17-2021 Manual differential comment Shayne (Bld) [Interp] SCANNED [facility] Work Phone: Comment on above: FEW BANDS NOTED Blood platelet adequacy dete ction by light microscopyon 05-17-2021 Platelets LM Ql (Bld) MOD DEC ADEQ [facility] Work Phone: Blood platelet morphology de termination (nominal result)on 05-17-2021 Platelet morphology finding Nom (Bld) LARGE [facility] Work Phone: No Panel Informationon 05-17 Urine Random Sodium < 5 mmol/L Not Establ. [facility] Work Phone: Hepatitis A IgM Antibody Negative Negative [facility] Work Phone: Hepatitis B Core IgM Antibody Negative Negative [facility] Work Phone: Hepatitis C Antibody (EIA) <0.1 s/co ratio [facility] Work Phone: Comment on above: Negative: < 0.8 Inde terminate: 0.8 - 0.9 Positive: > 0.9 The CDC recommends that a positive HCV antibody result be followed up with a HCV Nucleic Acid Amplification test (602351).Effective June 08, 2021 Hepatitis Panel (4) will be made non-orderable. [employer] offers order code [id number] Acute Hepatitis.Performed at: [facility] [place] [id number] Director: Ortiz Hayden PhD, Phone: [phone] Serum or plasma hepatitis B virus surface antigen detection by immunoassayon 05-17-2021 HBV surface Ag IA Ql Negative Negative [facility] Work Phone: Thin prep Papanicolaou smear with manual screeningon 05-17-2021 Thin prep Papanicolaou smear with manual screening 262 mOsm/KG 275-295 [facility] Work Phone: Urine osmolality measurement on 05-17-2021 Osmolality (U) [Osmolality] 502 mOsm/KG [facility] Work Phone: Comment on above: Normal Urine Referen ce Ranges Random: 50 - 1200 mOsm/kg H20 depending on fluid intake Random: >850 mOsm/kg after 12 hour fluid restriction 24 hour: ~300 - 900 mOsm/kg H2O Whole blood hemoglobin A1c/t otal hemoglobin ratio (mass fraction)on 05-17-2021 HbA1c (Bld) [Mass fraction] 5.5 % 3.8-5.6 [facility] Work Phone: Comment on above: Normal < 5.7 % Predi abetic 5.7 - 6.4 % Diabetic >or= 6.5 % Please note range changes. Basophil percentageon 2021 Basophil percentage 0 SEEN /hpf [facility] Work Phone: Bilirubin Test strip Ql (U)o n 05-16-2021 Bilirubin Ql (U) Negative Negative [facility] Work Phone: Calcium oxalate crystals det ection in urine sediment by light microscopyon 05-16-2021 Calcium oxalate crystals LM Ql (Urine sed) 2+ /hpf [facility] Work Phone: Hyaline casts LM.LPF (Urine sed) [#/Area]on 05-16-2021 Hyaline casts (Urine sed) [#/Area] 0 /[LPF] [facility] Work Phone: Ketones Test strip Ql (U)on 05-16-2021 Ketones Ql (U) Negative Negative [facility] Work Phone: Laboratory - Chemistry and C hemistry - challengeon 05-16-2021 Free T4 [Mass/Vol] 1.24 ng/dL 0.76-1.46 [facility] Work Phone: Natriuretic peptide B (Bld) [Mass/Vol] 36.2 pg/mL 0-100 [facility] Work Phone: Mucus LM Ql (Urine sed)on Mucus Ql (Urine sed) 0 SEEN /hpf [facility] Work Phone: Nitrite Test strip Ql (U)on 05-16-2021 Nitrite Ql (U) Negative Negative [facility] Work Phone: No Panel Informationon 05-16 Follicle Stimulating Hormone 19.5 mIU/mL [facility] Work Phone: Comment on above: NORMAL REFERENCE RAN GES FEMALE FOLLICULAR 2.3 - 12.6 mIU/mL MID-CYCLE PEAK 5.2 - 17.5 mIU/mL LUTEAL 1.7 - 12.9 mIU/mL POST-MENOPAUSAL ON MHT 5.9 - 72.8 mIU/mL NOT ON MHT 12.7 - 132.2 mlU/mL MALE 0.7 - 10.8 mIU/mL Free Triiodothyronine (T3) pg/dL 2.1 pg/mL 2.18-3.98 [facility] Work Phone: Protein Test strip Ql (U)on 05-16-2021 Protein Ql (U) Negative Negative [facility] Work Phone: Squamous epithelial cells de tection in urine sediment by light microscopyon 05-16-2021 Epithelial cells.squamous LM Ql (Urine sed) 0 SEEN /hpf [facility] Work Phone: [phone] Urine blood detectionon 04-28 RBC Ql (U) 10 /ul Negative [facility] Work Phone: RBC Ql (U) 0 SEEN /hpf [facility] Work Phone: Urine clarityon 05-16-2021 Clarity (U) Clear Clear [facility] Work Phone: Urine color determinationon 05-16-2021 Color (U) Yellow Yellow [facility] Work Phone: Urine glucose detectionon Glucose Ql (U) Normal mg/dl Normal [facility] Work Phone: [phone] Urine leukocyte esterase det ection by dipstickon 05-16-2021 Leukocyte esterase Test strip Ql (U) Negative Negative [facility] Work Phone: Urine pHon 05-16-2021 pH (U) 5.0 [pH] [facility] Work Phone: Urine sediment bacteria coun t by microscopy (number/high power field)on 05-16-2021 Bacteria LM.HPF (Urine sed) [#/Area] 1 /[HPF] None Seen [facility] Work Phone: [phone] Urine specific gravity measu rementon 05-16-2021 Specific gravity (U) [Rel density] 1.025 [facility] Work Phone: [phone] Urobilinogen Auto test strip Ql (U)on 05-16-2021 Urobilinogen Ql (U) Normal mg/dl Normal [facility] Work Phone: INR in Blood by Coagulation assayon 04-27-2021 INR Coag (Bld) [Relative time] 0.9 {INR} [facility] Work Phone: Laboratory - Chemistry and C hemistry - challengeon 04-27-2021 Albumin [Mass/Vol] 3.2 g/dL [facility] Work Phone: Free T4 [Mass/Vol] 1.15 ng/dL 0.76-1.46 [facility] Work Phone: Lipase [Catalytic activity/Vol] 314 U/L 73-393 [facility] Work Phone: Laboratory - Coagulationon 0 04-27-2021 PT Coag (PPP) [Time] 11.1 s 11.7-14.9 [facility] Work Phone: No Panel Informationon 04-27 Miscellaneous Test See comment [facility] Work Phone: Comment on above: TEST RESULT LIMITSSe lenium, Serum/Plasma, 217 High ug/L 93-198 __ TESTING PERFORMED AT [facility]. ORIGINAL REPORT ON FILE IN LAB CONTAINS ADDITIONAL TEST SITE INFORMATION. Hepatitis C Antibody Non-Reactive Nonreactive [facility] Work Phone: Comment on above: Non Reactive: < 0.8 Equivocal: >/= 0.8 to < 1.0 Reactive: >/= 1.0The CDC recommends that a reactive/equivocal HCV antibody result be followed up by the HCV Nucleic Acid Amplificationtest (291306) Addendum Document Comment [facility] Work Phone: Comment on above: The SPE pattern refl ects hypogammaglobulinemia. Loweredgamma globulin levels may be found with monoclonalgammopathies, B-cell deficiency states, protein losingdiseases, or may be transient in children. Serumimmunofixation and examination of the urine for Bence Jonesprotein may be indicated if warranted by the clinicalpicture. Xxmuu-4-Nehkyqrvp 0.4 g/dL [facility] Work Phone: Hnlfy-1-Ynwhtuxkb 0.7 g/dL [facility] Work Phone: Anti-Nuclear Antibody Screen Negative Negative [facility] Work Phone: Comment on above: Performed at: [facility] [place] [id number] Director: Ortiz Hayden PhD, Phone: [phone] Ceruloplasmin 27.8 mg/dL [facility] Work Phone: Free Triiodothyronine (T3) pg/dL 2.3 pg/mL 2.18-3.98 [facility] Work Phone: Gamma Globulins 0.3 g/dL [facility] Work Phone: Thyroglobulin Antibody < 1.0 IU/mL [facility] Work Phone: Comment on above: Thyroglobulin Antibo dy measured by Amparo CoulterMethodology Thyroglobulin Level 7.4 ng/mL [facility] Work Phone: Comment on above: According to the [facility] [employer],the reference interval for Thyroglobulin (TG) should berelated to euthyroid patients and not for patients whounderwent thyroidectomy. TG reference intervals for thesepatients depend on the residual mass of the thyroid tissueleft after surgery. Establishing a post-operative baselineis recommended. The assay limit of quantitation is 0.1ng/mLThyroglobulin measured by Amparo Freddie ImmunometricAss[employer] Thyroid Stimulating Hormone (TSH) 6.25 uIU/mL 0.358-3.74 [facility] Work Phone: Protein Fractions Elph [Inte rp]on 04-27-2021 Protein Fractions [Interp] Comment [facility] Work Phone: Comment on above: Protein electrophore sis scan will follow via computer,mail, or instructional support technician delivery. Serum albumin to globulin ra cathy by protein electrophoresison 04-27-2021 Albumin/Globulin Elph [Mass ratio] 1.4 [facility] Work Phone: Serum globulin measurement ( mass/volume)on 04-27-2021 Globulin (S) [Mass/Vol] 2.3 g/dL [facility] Work Phone: Serum or plasma actin IgG an tibody assay (units/volume)on 04-27-2021 Actin IgG Qn 2 Units [facility] Work Phone: Comment on above: Negative 0 - 19 Weak positive 20 - 30 Moderate to strong positive >30 Actin Antibodies are found in 52-85% of patients with autoimmune hepatitis or chronic active hepatitis and in 22% of patients with primary biliary cirrhosis. Serum or plasma beta globuli n measurement by electrophoresis (mass/volume)on 04-27-2021 Beta globulin Elph [Mass/Vol] 1.0 g/dL [facility] Work Phone: Serum or plasma thyroperoxid ase antibody assay (units/volume)on 04-27-2021 TPO Ab Qn [IU]/mL [facility] Work Phone: Comment on above: Performed at: [address] [id number] Director: Ortiz Hayden PhD, Phone: [phone] at: [facility] [id number] Director: Neda Sousa MD, Phone: [phone] Serum or plasma transthyreti n measurement (mass/volume)on 04-27-2021 Prealbumin [Mass/Vol] 32.6 mg/dL 20.0-40.0 [facility] Work Phone: Serum or plasma zinc measure ment (mass/volume)on 04-27-2021 Zinc [Mass/Vol] 73 ug/dL [facility] Work Phone: Comment on above: Detection Limit = 5 Serum rheumatoid factor dete ctionon 04-27-2021 Rheumatoid factor Ql (S) < 10.0 IU/mL <15 [facility] Work Phone: Thin prep Papanicolaou smear with manual screeningon 04-27-2021 Thin prep Papanicolaou smear with manual screening See comment [facility] Work Phone: Comment on above: Result: Not Observed Total protein bloodon 2021 Protein [Mass/Vol] 5.5 g/dL [facility] Work Phone: Basophil percentageon 2021 Basophil percentage 0 SEEN /hpf [facility] Work Phone: Bilirubin [Mass/Vol] 0.10 mg/dL 0.20-1.00 [facility] Work Phone: Comment on above: For patients on eltr ombopag therapy, use of [place] TBIL is not recommended. Chloride [Moles/Vol] 92 mmol/L 98-107 [facility] Work Phone: Glucose [Mass/Vol] 137 mg/dL 74-106 [facility] Work Phone: Comment on above: Fasting Glucose resu lt greater than or equal to 126 mg/dL suggests DIABETES MELLITUS per A.D.A. criteria. Potassium [Moles/Vol] 4.2 mmol/L 3.5-5.1 [facility] Work Phone: Protein [Mass/Vol] 5.6 g/dL 6.4-8.2 [facility] Work Phone: Sodium [Moles/Vol] 131 mmol/L 136-145 [facility] Work Phone: Testosterone [Mass/Vol] 40 ng/dL [facility] Work Phone: Bilirubin Test strip Ql (U)o n 04-09-2021 Bilirubin Ql (U) Negative Negative [facility] Work Phone: Free testosterone percentage on 04-09-2021 Testosterone Free/Testosterone.total [Mass fraction] 2.03 % [facility] Work Phone: Ketones Test strip Ql (U)on 04-09-2021 Ketones Ql (U) Negative Negative [facility] Work Phone: Laboratory - Chemistry and C hemistry - challengeon 04-09-2021 ALP [Catalytic activity/Vol] 84 U/L 45-117 [facility] Work Phone: ALT [Catalytic activity/Vol] 142 U/L 13-56 [facility] Work Phone: CO2 [Moles/Vol] 34.0 mmol/L 21.0-32.0 [facility] Work Phone: Free T4 [Mass/Vol] 1.13 ng/dL 0.76-1.46 [facility] Work Phone: Globulin (S) [Mass/Vol] 2.8 g/dL 2.2-4.2 [facility] Work Phone: Urea nitrogen/Creatinine [Mass ratio] 39.4 mg/mg 10-20 [facility] Work Phone: Laboratory - Microbiology an d Antimicrobial susceptibilityon 04-09-2021 SARS-CoV-2 (COVID-19) RNA MAAME+probe Ql (Unsp spec) Not detected Not Detect [facility] Work Phone: Comment on above: Normal Reference Ran ge: Not DetectedMethod:(RT-PCR) real-time reverse transcriptase PCRLuminex TONA Instrument*The Food and Drug Administration (FDA) has issued an Emergency Use Authorization (EAU) for the TONA SARS-CoV-2 Assay for the rapid detection of the virus that causes COVID-19. This test has been validated, but the FDAs independent review of this validation is pending.*Negative results do not preclude infection and should not be used as the sole basis for treatment or patient management. Optimum specimen types and timing for peak viral levels during infections caused by SARS-CoV-2 have not been determined. Collection of multiple specimens from the same patient may be necessary to detect the virus. The possibility of a false negative result should be considered if the patient has clinical presentation or has had recent exposure. Mucus LM Ql (Urine sed)on Mucus Ql (Urine sed) 0 SEEN /hpf [facility] Work Phone: Nitrite Test strip Ql (U)on 04-09-2021 Nitrite Ql (U) Negative Negative [facility] Work Phone: No Panel Informationon 04-09 Dehydroepiandrosterone Sulfate 202.0 ug/dL [facility] Work Phone: Comment on above: Performed at: [employer] [address] [id number] Director: Ortiz Hayden PhD, Phone: [phone] at: [facility] [address] [id number] Director: Neda Sousa MD, Phone: [phone] Estimated GFR (MDRD) Amer 144 mL/min >60 [facility] Work Phone: Comment on above: GFR Calc Estimated GFR (MDRD) Non-Af Amer 119 mL/min >60 [facility] Work Phone: Comment on above: Non- GFR Calc Follicle Stimulating Hormone 50.1 mIU/mL [facility] Work Phone: Comment on above: NORMAL REFERENCE RAN GES FEMALE FOLLICULAR 2.3 - 12.6 mIU/mL MID-CYCLE PEAK 5.2 - 17.5 mIU/mL LUTEAL 1.7 - 12.9 mIU/mL POST-MENOPAUSAL ON MHT 5.9 - 72.8 mIU/mL NOT ON MHT 12.7 - 132.2 mlU/mL MALE 0.7 - 10.8 mIU/mL NEW TEST METHOD & REFERENCE RANGES AUGUST 16, 2011 Free Triiodothyronine (T3) pg/dL 2.1 pg/mL 2.18-3.98 [facility] Work Phone: Luteinizing Hormone 25.9 mIU/mL [facility] Work Phone: Comment on above: NORMAL REFERENCE RAN GES FEMALE FOLLICULAR 1.9 - 26.2 mIU/mL MID-CYCLE PEAK 22.8 - 76.1 mIU/mL LUTEAL 0.6 - 16.6 mIU/mL POST-MENOPAUSAL ON MHT 1.1 - 52.4 mIU/mL NOT ON MHT 8.6 - 61.8 mIU/mL MALE 1.2 - 10.6 mIU/mL NEW TEST METHOD & REFERENCE RANGES AUGUST 16, 2011 Thyroid Stimulating Hormone (TSH) 7.58 uIU/mL 0.358-3.74 [facility] Work Phone: Urine Microalbumin/Creatinine Ratio 9.9 mg/g CRE <30 [facility] Work Phone: Protein Test strip Ql (U)on 04-09-2021 Protein Ql (U) Negative Negative [facility] Work Phone: Serum or plasma C reactive p rotein measurement (mass/volume)on 04-09-2021 CRP [Mass/Vol] mg/L 0.0-3.0 [facility] Work Phone: Comment on above: C-Reactive Protein ( CRP) provides useful information for thediagnosis, therapy and monitoring of inflammatory processesand associated diseases. For the evaluation of Relative Riskfor Cardiovascular Disease, a High Sensitivity CRP (HSCRP)should be ordered. Serum or plasma albumin vickie urement (mass/volume)on 04-09-2021 Albumin [Mass/Vol] 2.8 g/dL 3.2-5.0 [facility] Work Phone: Serum or plasma albumin/glob ulin mass ratioon 04-09-2021 Albumin/Globulin [Mass ratio] 1.0 {ratio} 0.9-2.4 [facility] Work Phone: Serum or plasma calcium vickie urement (mass/volume)on 04-09-2021 Calcium [Mass/Vol] 9.2 mg/dL 8.5-10.1 [facility] Work Phone: Serum or plasma creatinine m easurement (mass/volume)on 04-09-2021 Creatinine [Mass/Vol] 0.56 mg/dL 0.55-1.02 [facility] Work Phone: Comment on above: The validity of the calculated GFR & GFRAA in patients over 70 years has not been determined. Clinical correlation is essential. Serum or plasma testosterone free measurement (mass/volume)on 04-09-2021 Testosterone Free [Mass/Vol] 0.81 ng/dL [facility] Work Phone: Serum or plasma urea nitroge n measurement (mass/volume)on 04-09-2021 Urea nitrogen [Mass/Vol] 22 mg/dL 7-18 [facility] Work Phone: Squamous epithelial cells de tection in urine sediment by light microscopyon 04-09-2021 Epithelial cells.squamous LM Ql (Urine sed) 0-5 SEEN /hpf [facility] Work Phone: Thin prep Papanicolaou smear with manual screeningon 04-09-2021 Thin prep Papanicolaou smear with manual screening 87 U/L 15-37 [facility] Work Phone: Thin prep Papanicolaou smear with manual screening 5 5-15 [facility] Work Phone: Thin prep Papanicolaou smear with manual screening 7.2 mg/L NO RANGE EST. [facility] Work Phone: Urine blood detectionon 03-28 RBC Ql (U) Negative Negative [facility] Work Phone: RBC Ql (U) 0 SEEN /hpf [facility] Work Phone: Urine clarityon 04-09-2021 Clarity (U) Sl. Cloudy Clear [facility] Work Phone: Urine color determinationon 04-09-2021 Color (U) Yellow Yellow [facility] Work Phone: Urine creatinine measurement (mass/volume)on 04-09-2021 Creatinine (U) [Mass/Vol] 72.80 mg/dL NO RANGE EST. [facility] Work Phone: Urine glucose detectionon Glucose Ql (U) Normal mg/dl Normal [facility] Work Phone: Urine leukocyte esterase det ection by dipstickon 04-09-2021 Leukocyte esterase Test strip Ql (U) Negative Negative [facility] Work Phone: Urine pHon 04-09-2021 pH (U) 6.0 [pH] [facility] Work Phone: Urine sediment bacteria coun t by microscopy (number/high power field)on 04-09-2021 Bacteria LM.HPF (Urine sed) [#/Area] 0 /[HPF] None Seen [facility] Work Phone: Urine specific gravity measu rementon 04-09-2021 Specific gravity (U) [Rel density] 1.025 [facility] Work Phone: Urobilinogen Auto test strip Ql (U)on 04-09-2021 Urobilinogen Ql (U) Normal mg/dl Normal [facility] Work Phone: Basophil percentageon 2021 Chloride [Moles/Vol] 96 mmol/L 98-107 [facility] Work Phone: Glucose [Mass/Vol] 76 mg/dL 74-106 [facility] Work Phone: Comment on above: Please note revised GLUCOSE reference range effective 2017. Potassium [Moles/Vol] 3.9 mmol/L 3.5-5.1 [facility] Work Phone: Sodium [Moles/Vol] 134 mmol/L 136-145 [facility] Work Phone: Laboratory - Chemistry and C hemistry - challengeon 04-01-2021 CO2 [Moles/Vol] 33.0 mmol/L 21.0-32.0 [facility] Work Phone: Urea nitrogen/Creatinine [Mass ratio] 39.5 mg/mg 10-20 [facility] Work Phone: No Panel Informationon 04-01 Estimated GFR (MDRD) Amer 145 mL/min >60 [facility] Work Phone: Comment on above: GFR Calc Estimated GFR (MDRD) Non-Af Amer 120 mL/min >60 [facility] Work Phone: Comment on above: Non- GFR Calc Serum or plasma calcium vickie urement (mass/volume)on 04-01-2021 Calcium [Mass/Vol] 9.4 mg/dL 8.5-10.1 [facility] Work Phone: Serum or plasma creatinine m easurement (mass/volume)on 04-01-2021 Creatinine [Mass/Vol] 0.56 mg/dL 0.55-1.02 [facility] Work Phone: Comment on above: The validity of the calculated GFR & GFRAA in patients over 70 years has not been determined. Clinical correlation is essential. Serum or plasma urea nitroge n measurement (mass/volume)on 04-01-2021 Urea nitrogen [Mass/Vol] 22 mg/dL 7-18 [facility] Work Phone: Thin prep Papanicolaou smear with manual screeningon 04-01-2021 Thin prep Papanicolaou smear with manual screening 5 5-15 [facility] Work Phone: Laboratory - Chemistry and C hemistry - challengeon 03-23-2021 Free T4 [Mass/Vol] 1.15 ng/dL 0.76-1.46 [facility] Work Phone: No Panel Informationon 03-23 Free Triiodothyronine (T3) pg/dL 2.4 pg/mL 2.18-3.98 [facility] Work Phone: Miscellaneous Test See comment [facility] Work Phone: Comment on above: TEST RESULT LIMITSIn trinsic Factor Abs, Serum 0.9 AU/mL 0.0 - 1.1 TESTING PERFORMED AT [facility]. ORIGINAL REPORT ON FILE IN LAB CONTAINS ADDITIONAL TEST SITE INFORMATION. Thyroid Stimulating Hormone (TSH) 6.27 uIU/mL 0.358-3.74 [facility] Work Phone: No Panel Information [facility] Vital Signs Date Time Vital Sign Value Performing Clinician Facility 07-24-2024 10:32-0400 Diastolic blood pressure 76 mm[Hg] Jenna Shankar MD Work Phone: [facility] 07-24-2024 10:32-0400 Heart rate 50 /min Jenna Shankar MD Work Phone: [facility] 07-24-2024 10:32-0400 Respiratory rate 14 /min Jenna Shankar MD Work Phone: [facility] 07-24-2024 10:32-0400 SaO2% (BldA) [Mass fraction] 99 % Jenna Shankar MD Work Phone: [facility] 07-24-2024 10:32-0400 Systolic blood pressure 123 mm[Hg] Jenna Shankar MD Work Phone: [facility] 07-24-2024 08:46-0400 Body temperature 95.79 [degF] Jenna Shankar MD Work Phone: [facility] 06-27-2024 14:41-0400 Body height 177.[address] Jossie De La Rosa MD Work Phone: [facility] 06-27-2024 14:41-0400 Body mass index (BMI) [Ratio] 17.9 kg/m2 Dr. Jossie De La Rosa MD Work Phone: [facility] 06-27-2024 14:41-0400 Body weight 56.[address] Jossie De La Rosa MD Work Phone: [facility] 06-27-2024 14:41-0400 Diastolic blood pressure 87 mm[Hg] Dr. Jossie D eLa Rosa MD Work Phone: [facility] 06-27-2024 14:41-0400 Heart rate 52 /min Dr. Jossie De La Rosa MD Work Phone: [facility] 06-27-2024 14:41-0400 Respiratory rate 16 /min Dr. Jossie De La Rosa MD Work Phone: [facility] 06-27-2024 14:41-0400 SaO2% (BldA) [Mass fraction] 99 % Dr. Jossie De La Rosa MD Work Phone: [facility] 06-27-2024 14:41-0400 Systolic blood pressure 139 mm[Hg] Dr. Jossie De La Rosa MD Work Phone: 6(524)[phone] [place] [address] 01-11-2023 13:30-0400 Body height 177.[address] Jossie De La Rosa Work Phone: 1(286)580-447827 [address] 01-11-2023 13:30-0400 Body mass index (BMI) [Ratio] 19.7 kg/m2 Dr. Jossie De La Rosa Work Phone: 2(179)924-852641 [place] [address] 01-11-2023 13:30-0400 Body temperature 98 [degF] Dr. Jossie De La Rosa Work Phone: 1(265)[phone] [place] [address] 01-11-2023 13:30-0400 Body weight 62.[address] Jossie De La Rosa Work Phone: [facility] 01-11-2023 13:30-0400 Diastolic blood pressure 76 mm[Hg] Dr. Jossie De La Rosa Work Phone: [facility] 01-11-2023 13:30-0400 Heart rate 72 /min Dr. Jossie De La Rosa Work Phone: [facility] 01-11-2023 13:30-0400 Respiratory rate 16 /min Dr. Jossie De La Rosa Work Phone: [facility] 01-11-2023 13:30-0400 SaO2% (BldA) [Mass fraction] 97 % Dr. Jossie De La Rosa Work Phone: [facility] 01-11-2023 13:30-0400 Systolic blood pressure 126 mm[Hg] Dr. Jossie De La Rosa Work Phone: [facility] 11-24-2022 13:31-0400 Body weight 59 kg Johanna Mandel MD Work Phone: [facility] 11-24-2022 13:31-0400 Diastolic blood pressure 78 mm[Hg] Johanna Mandel MD Work Phone: [facility] 11-24-2022 13:31-0400 Heart rate 52 /min Johanna Mandel MD Work Phone: [facility] 11-24-2022 13:31-0400 Respiratory rate 18 /min Johanna Mandel MD Work Phone: [facility] 11-24-2022 13:31-0400 Systolic blood pressure 125 mm[Hg] Johanna Mandel MD Work Phone: [facility] 10-25-2022 13:41-0400 Body temperature 97.39 [degF] Shauna White 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[employer] SAL[employer]IATE Work Phone: [facility] 10-25-2022 13:41-0400 Body weight 58.56 kg Shaunamya White 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.[employer] SALES ASSOCIATE Work Phone: [facility] 10-25-2022 13:41-0400 Diastolic blood pressure 70 mm[Hg] Shaunamya White 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.[employer] SALES ASSOCIATE Work Phone: [facility] 10-25-2022 13:41-0400 Heart rate 48 /min Shaunamya White 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.[employer] SALES ASSOCIATE Work Phone: [facility] 10-25-2022 13:41-0400 Respiratory rate 18 /min Shauna Christopher 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.[employer] SALES ASSOCIATE Work Phone: [facility] 10-25-2022 13:41-0400 Systolic blood pressure 100 mm[Hg] Shauna White 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.[employer] SALES ASSOCIATE Work Phone: [facility] 09-09-2022 12:54-0400 Body weight 61.[address] Work Phone: [facility] 08-27-2022 09:29-0400 Body temperature 97.2 [degF] [facility] 1 Work Phone: [facility] 08-27-2022 09:29-0400 Diastolic blood pressure 69 mm[Hg] [facility] 1 Work Phone: [facility] 08-27-2022 09:29-0400 Heart rate 46 /min [facility] 1 Work Phone: [facility] 08-27-2022 09:29-0400 Respiratory rate 18 /min [facility] 1 Work Phone: [facility] 08-27-2022 09:29-0400 Systolic blood pressure 116 mm[Hg] [facility] 1 Work Phone: [facility] 07-08-2022 14:06-0400 Body height 176 cm Johanna Mandel MD Work Phone: [facility] 07-08-2022 14:06-0400 Body weight 65.77 kg Johanna Mandel MD Work Phone: [facility] 07-08-2022 12:48-0400 Diastolic blood pressure 67 mm[Hg] [facility] 1 Work Phone: [facility] 07-08-2022 12:48-0400 Heart rate 49 /min [facility] 1 Work Phone: [facility] 07-08-2022 12:48-0400 Respiratory rate 18 /min [facility] 1 Work Phone: [facility] 07-08-2022 12:48-0400 Systolic blood pressure 109 mm[Hg] [facility] 1 Work Phone: [facility] 06-21-2022 14:14-0400 Body height 177.8 cm Chris Rao MD Work Phone: [facility] 06-21-2022 14:14-0400 Body weight 63.96 kg Chris Rao MD Work Phone: [facility] 06-21-2022 14:14-0400 Diastolic blood pressure 67 mm[Hg] Chris Rao MD Work Phone: [facility] 06-21-2022 14:14-0400 Heart rate 56 /min Chris Rao MD Work Phone: [facility] 06-21-2022 14:14-0400 SaO2% (BldA) [Mass fraction] 100 % Chris Rao MD Work Phone: [facility] 06-21-2022 14:14-0400 Systolic blood pressure 106 mm[Hg] Chris Rao MD Work Phone: [facility] 06-21-2022 11:27-0400 Body temperature 96.1 [degF] Shauna White 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.[employer] SALES ASSOCIATE Work Phone: [facility] 06-21-2022 11:27-0400 Body weight 63.96 kg Shauna White 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.[employer] SALES ASSOCIATE Work Phone: [facility] 06-21-2022 11:27-0400 Diastolic blood pressure 76 mm[Hg] Shauna White 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.[employer] SALES ASSOCIATE Work Phone: [facility] 06-21-2022 11:27-0400 Heart rate 51 /min Shauna White 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.[employer]AR SALES ASSOCIATE Work Phone: [facility] 06-21-2022 11:27-0400 Respiratory rate 18 /min Shauna White 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.[employer] SALES ASSOCIATE Work Phone: [facility] 06-21-2022 11:27-0400 Systolic blood pressure 116 mm[Hg] Shauna White 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.[employer] SALES ASSOCIATE Work Phone: [facility] 06-21-2022 09:20-0400 Diastolic blood pressure 73 mm[Hg] Yokasta Walker MD Work Phone: [facility] 06-21-2022 09:20-0400 Systolic blood pressure 121 mm[Hg] Yokasta Walker MD Work Phone: [facility] 06-21-2022 09:17-0400 Body height 177.8 cm Yokasta Walker MD Work Phone: [facility] 06-21-2022 09:17-0400 Heart rate 55 /min Yokasta Walker MD Work Phone: [facility] 06-21-2022 09:17-0400 SaO2% (BldA) [Mass fraction] 99 % Yokasta Walker MD Work Phone: [facility] 06-03-2022 14:46-0500 Body temperature 96.3 [degF] Ignacio Aguilar DO Work Phone: [facility] 06-03-2022 14:46-0500 Diastolic blood pressure 58 mm[Hg] Ignacio Aguilar DO Work Phone: [facility] 06-03-2022 14:46-0500 Heart rate 56 /min Ignacio Aguilar DO Work Phone: [facility] 06-03-2022 14:46-0500 SaO2% (BldA) [Mass fraction] 98 % Ignacio Aguilar DO Work Phone: [facility] 06-03-2022 14:46-0500 Systolic blood pressure 136 mm[Hg] Ignacio Aguilar DO Work Phone: [facility] 05-25-2022 12:42-0500 Body temperature 95.8 [degF] Dr. Jossie De La Rosa Work Phone: [facility] 05-25-2022 12:42-0500 Diastolic blood pressure 82 mm[Hg] Dr. Jossie De La Rosa Work Phone: [facility] 05-25-2022 12:42-0500 Heart rate 56 /min Dr. Jossie De La Rosa Work Phone: [facility] 05-25-2022 12:42-0500 Respiratory rate 16 /min Dr. Jossie De La Rosa Work Phone: [facility] 05-25-2022 12:42-0500 SaO2% (BldA) [Mass fraction] 98 % Dr. Jossie De La Rosa Work Phone: [facility] 05-25-2022 12:42-0500 Systolic blood pressure 104 mm[Hg] Dr. Jossie De La Rosa Work Phone: [facility] 05-25-2022 10:29-0500 Body height 177.[address] Jossie De La Rosa Work Phone: [facility] 05-25-2022 10:29-0500 Body mass index (BMI) [Ratio] 23.5 kg/m2 Dr. Jossie De La Rosa Work Phone: [facility] 05-25-2022 10:29-0500 Body weight 74.[address] Jossie De La Rosa Work Phone: [facility] 05-25-2022 09:24-0500 Body mass index (BMI) [Ratio] 23.5 kg/m2 Dr. Jossie De La Rosa Work Phone: [facility] 05-25-2022 09:24-0500 Body temperature 97.4 [degF] Dr. Jossie De La Rosa Work Phone: [facility] 05-25-2022 09:24-0500 Body weight 74.[address] Jossie De La Rosa Work Phone: [facility] 05-25-2022 09:24-0500 Diastolic blood pressure 72 mm[Hg] Dr. Jossie De La Rosa Work Phone: [facility] 05-25-2022 09:24-0500 Heart rate 50 /min Dr. Jossie De La Rosa Work Phone: [facility] 05-25-2022 09:24-0500 Respiratory rate 17 /min Dr. Jossie De La Rosa Work Phone: [facility] 05-25-2022 09:24-0500 SaO2% (BldA) [Mass fraction] 100 % Dr. Jossie De La Rosa Work Phone: [facility] 05-25-2022 09:24-0500 Systolic blood pressure 118 mm[Hg] Dr. Jossie De La Rosa Work Phone: [facility] 05-20-2022 16:03-0500 Body height 177.[address] Jossie De La Rosa Work Phone: [facility] 05-20-2022 15:56-0500 Body mass index (BMI) [Ratio] 23 kg/m2 Dr. Jossie De La Rosa Work Phone: [facility] 05-20-2022 15:56-0500 Body temperature 97.7 [degF] Dr. Jossie De La Rosa Work Phone: [facility] 05-20-2022 15:56-0500 Body weight 72.[address] Jossie De La Rosa Work Phone: [facility] 05-20-2022 15:56-0500 Diastolic blood pressure 78 mm[Hg] Dr. Jossie De La Rosa Work Phone: [facility] 05-20-2022 15:56-0500 Heart rate 54 /min Dr. Jossie De La Rosa Work Phone: [facility] 05-20-2022 15:56-0500 Respiratory rate 17 /min Dr. Jossie De La Rosa Work Phone: [facility] 05-20-2022 15:56-0500 SaO2% (BldA) [Mass fraction] 100 % Dr. Jossie De La Rosa Work Phone: [facility] 05-20-2022 15:56-0500 Systolic blood pressure 139 mm[Hg] Dr. Jossie De La Rosa Work Phone: [facility] 05-10-2022 22:21-0500 Diastolic blood pressure 86 mm[Hg] Dr. Jossie De La Rosa Work Phone: [facility] 05-10-2022 22:21-0500 Heart rate 56 /min Dr. Jossie De La Rosa Work Phone: [facility] 05-10-2022 22:21-0500 Respiratory rate 16 /min Dr. Jossie De La Rosa Work Phone: [facility] 05-10-2022 22:21-0500 SaO2% (BldA) [Mass fraction] 98 % Dr. Jossie De La Rosa Work Phone: [facility] 05-10-2022 22:21-0500 Systolic blood pressure 130 mm[Hg] Dr. Jossie De La Rosa Work Phone: [facility] 05-10-2022 17:41-0500 Body height 177.[address] Jossie De La Rosa Work Phone: [facility] 05-10-2022 17:41-0500 Body mass index (BMI) [Ratio] 22.3 kg/m2 Dr. Jossie De La Rosa Work Phone: [facility] 05-10-2022 17:41-0500 Body temperature 97.2 [degF] Dr. Jossie De La Rosa Work Phone: [facility] 05-10-2022 17:41-0500 Body weight 70.[address] Jossie De La Rosa Work Phone: [facility] 03-20-2022 14:22-0500 Body temperature 97.7 [degF] Dr. Jossie De La Rosa Work Phone: [facility] 03-20-2022 14:22-0500 Diastolic blood pressure 67 mm[Hg] Dr. Jossie De La Rosa Work Phone: [facility] 03-20-2022 14:22-0500 Heart rate 64 /min Dr. Jossie De La Rosa Work Phone: [facility] 03-20-2022 14:22-0500 Respiratory rate 16 /min Dr. Jossie De La Rosa Work Phone: [facility] 03-20-2022 14:22-0500 SaO2% (BldA) [Mass fraction] 100 % Dr. Jossie De La Rosa Work Phone: [facility] 03-20-2022 14:22-0500 Systolic blood pressure 100 mm[Hg] Dr. Jossie De La Rosa Work Phone: [facility] 03-18-2022 16:25-0500 Body height 177.[address] Jossie De La Rosa Work Phone: [facility] Work Phone: 03-18-2022 16:25-0500 Body weight 73.[address] Jossie De La Rosa Work Phone: [facility] 03-16-2022 08:50-0500 Body temperature 97.6 [degF] Dr. Jsosie De La Rosa Work Phone: [facility] Work Phone: 03-16-2022 08:50-0500 Diastolic blood pressure 70 mm[Hg] Dr. Jossie De La Rosa Work Phone: [facility] Work Phone: 03-16-2022 08:50-0500 Heart rate 57 /min Dr. Jossie De La Rosa Work Phone: [facility] Work Phone: 03-16-2022 08:50-0500 Respiratory rate 18 /min Dr. Jsosie De La Rosa Work Phone: [facility] Work Phone: 03-16-2022 08:50-0500 SaO2% (BldA) [Mass fraction] 98 % Dr. Jossie De La Rosa Work Phone: [facility] Work Phone: 03-16-2022 08:50-0500 Systolic blood pressure 106 mm[Hg] Dr. Jossie De La Rosa Work Phone: [facility] Work Phone: 03-15-2022 21:35-0500 Body height 177.[address] Jossie De La Rosa Work Phone: [facility] Work Phone: 03-15-2022 21:35-0500 Body mass index (BMI) [Ratio] 23.2 kg/m2 Dr. Jossie De La Rosa Work Phone: [facility] 03-15-2022 21:35-0500 Body weight 73.[address] Jossie De La Rosa Work Phone: [facility] Work Phone: 01-12-2022 14:49-0400 Body height 177.[address] Jossie De La Rosa Work Phone: [facility] Work Phone: 01-12-2022 14:49-0400 Body mass index (BMI) [Ratio] 18.5 kg/m2 Dr. Jossie De La Rosa Work Phone: [facility] 01-12-2022 14:49-0400 Body temperature 98.1 [degF] Dr. Jossie De La Rosa Work Phone: [facility] 01-12-2022 14:49-0400 Body weight 58.[address] Jossie De La Rosa Work Phone: [facility] 01-12-2022 14:49-0400 Diastolic blood pressure 78 mm[Hg] Dr. Jossie De La Rosa Work Phone: [facility] 01-12-2022 14:49-0400 Heart rate 53 /min Dr. Jossie De La Rosa Work Phone: [facility] 01-12-2022 14:49-0400 Respiratory rate 16 /min Dr. Jossie De La Rosa Work Phone: [facility] 01-12-2022 14:49-0400 SaO2% (BldA) [Mass fraction] 96 % Dr. Jossie De La Rosa Work Phone: [facility] 01-12-2022 14:49-0400 Systolic blood pressure 128 mm[Hg] Dr. Jossie De La Rosa Work Phone: [facility] 12-17-2021 14:31-0400 Body weight 59.[address] Jossie De La Rosa Work Phone: [facility] Work Phone: 07-31-2021 08:27-0400 Diastolic blood pressure 70 mm[Hg] Dr. Jossie De La Rosa Work Phone: [facility] Work Phone: 07-31-2021 08:27-0400 Systolic blood pressure 110 mm[Hg] Dr. Jossie De La Rosa Work Phone: [facility] Work Phone: 07-31-2021 08:27-0400 Diastolic blood pressure 70 mm[Hg] Dr. Jossie De La Rosa Work Phone: [facility] Work Phone: 07-31-2021 08:27-0400 Systolic blood pressure 110 mm[Hg] Dr. Jossie De La Rosa Work Phone: [facility] Work Phone: 07-21-2021 18:14-0400 Body height 177.[address] Jossie De La Rosa Work Phone: [facility] Work Phone: 07-21-2021 18:14-0400 Body weight 58.[address] Jossie De La Rosa Work Phone: [facility] Work Phone: 07-16-2021 10:18-0400 Body mass index (BMI) [Ratio] 18.2 kg/m2 Dr. Jossie De La Rosa Work Phone: [facility] Work Phone: 07-16-2021 10:18-0400 Body temperature 96.3 [degF] Dr. Jossie De La Rosa Work Phone: [facility] Work Phone: 07-16-2021 10:18-0400 Body weight 56.[address] Jossie De La Rosa Work Phone: [facility] Work Phone: 07-16-2021 10:18-0400 Heart rate 72 /min Dr. Jossie De La Rosa Work Phone: [facility] Work Phone: 07-16-2021 10:18-0400 Respiratory rate 18 /min Dr. Jossie De La Rosa Work Phone: [facility] Work Phone: 07-16-2021 10:18-0400 SaO2% (BldA) [Mass fraction] 100 % Dr. Jossie De La Rosa Work Phone: [facility] Work Phone: 07-16-2021 10:18-0400 Body mass index (BMI) [Ratio] 18.2 kg/m2 Dr. Jossie De La Rosa Work Phone: [facility] Work Phone: 07-16-2021 10:18-0400 Body temperature 96.3 [degF] Dr. Jossie De La Rosa Work Phone: [facility] Work Phone: 07-16-2021 10:18-0400 Body weight 56.[address] Jossie De La Rosa Work Phone: [facility] Work Phone: 07-16-2021 10:18-0400 Diastolic blood pressure 70 mm[Hg] Dr. Jossie De La Rosa Work Phone: [facility] Work Phone: 07-16-2021 10:18-0400 Heart rate 72 /min Dr. Jossie De La Rosa Work Phone: [facility] Work Phone: 07-16-2021 10:18-0400 Respiratory rate 18 /min Dr. Jossie De La Rosa Work Phone: [facility] Work Phone: 07-16-2021 10:18-0400 SaO2% (BldA) [Mass fraction] 100 % Dr. Jossie De La Rosa Work Phone: [facility] Work Phone: 07-16-2021 10:18-0400 Systolic blood pressure 110 mm[Hg] Dr. Jossie De La Rosa Work Phone: [facility] Work Phone: 05-31-2021 14:50-0500 Body temperature 98.4 [degF] Dr. Jossie De La Rosa Work Phone: [facility] Work Phone: 05-31-2021 14:00-0500 Diastolic blood pressure 74 mm[Hg] Dr. Jossie De La Rosa Work Phone: [facility] Work Phone: 05-31-2021 14:00-0500 Heart rate 66 /min Dr. Jossie De La Rosa Work Phone: [facility] Work Phone: 05-31-2021 14:00-0500 Respiratory rate 14 /min Dr. Jossie De La Rosa Work Phone: [facility] Work Phone: 05-31-2021 14:00-0500 SaO2% (BldA) [Mass fraction] 98 % Dr. Jossie De La Rosa Work Phone: [facility] Work Phone: 05-31-2021 14:00-0500 Systolic blood pressure 132 mm[Hg] Dr. Jossie De La Rosa Work Phone: [facility] Work Phone: 05-31-2021 13:50-0500 Body temperature 98.4 [degF] Dr. Jossie De La Rosa Work Phone: [facility] Work Phone: 05-31-2021 12:01-0500 Body mass index (BMI) [Ratio] 23 kg/m2 Dr. Jossie De La Rosa Work Phone: [facility] Work Phone: 05-31-2021 12:01-0500 Body weight 66.[address] Jossie De La Rosa Work Phone: [facility] Work Phone: 05-31-2021 11:01-0500 Body height 170.[address] Jossie De La Rosa Work Phone: [facility] Work Phone: 05-31-2021 11:01-0500 Body mass index (BMI) [Ratio] 23 kg/m2 Dr. Jossie De La Rosa Work Phone: [facility] Work Phone: 05-31-2021 11:01-0500 Body weight 66.[address] Jossie De La Rosa Work Phone: [facility] Work Phone: 05-20-2021 10:25-0500 Body temperature 97.9 [degF] Dr. Jossie De La Rosa Work Phone: [facility] Work Phone: 05-20-2021 10:25-0500 Diastolic blood pressure 67 mm[Hg] Dr. Jossie De La Rosa Work Phone: [facility] Work Phone: 05-20-2021 10:25-0500 Heart rate 67 /min Dr. Jossie De La Rosa Work Phone: [facility] Work Phone: 05-20-2021 10:25-0500 Respiratory rate 16 /min Dr. Jossie De La Rosa Work Phone: [facility] Work Phone: 05-20-2021 10:25-0500 SaO2% (BldA) [Mass fraction] 100 % Dr. Jossie De La Rosa Work Phone: [facility] Work Phone: 05-20-2021 10:25-0500 Systolic blood pressure 104 mm[Hg] Dr. Jossie De La Rosa Work Phone: [facility] Work Phone: 05-20-2021 09:15-0500 Body weight 62.[address] Jossie De La Rosa Work Phone: [facility] Work Phone: 05-20-2021 01:24-0500 Body mass index (BMI) [Ratio] 19.5 kg/m2 Dr. Jossie De La Rosa Work Phone: [facility] Work Phone: Encounters Encounter Date Encounter Type Care Provider Facility Start: 01-02-2025 End: 01-02-2025 ambulatory JOSSIE DE LA ROSA Facility:[facility] Start: 12-28-2024 End: 12-28-2024 ambulatory JOSSIE DE LA ROSA Facility:[facility] Start: 12-26-2024 End: 12-26-2024 ambulatory JOSSIE DE LA ROSA Facility:[facility] Start: 12-20-2024 End: 12-20-2024 ambulatory JOHANNA MANDEL Facility:[facility] Start: 11-20-2024 End: 11-20-[address] Jossie De La Rosa MD Work Phone: -Laboratory [facility] Start: 11-20-2024 End: 11-20-2024 Patient encounter procedure Jorden Madera GLASS INSERTER-C -Laboratory [facility] Start: 11-20-2024 End: 11-20-2024 ambulatory Jossie De La Rosa Facility:[facility] Start: 10-19-2024 End: 11-13-2024 ambulatory Hilaria Cox MD Work Phone: [facility] Comment on above: TSH Start: 10-18-2024 End: 10-18-[address] Jossie De La Rosa MD Work Phone: -Laboratory [place] Start: 10-18-2024 End: 10-18-2024 Patient encounter procedure Jc Torres -Laboratory [place] Work Phone: Start: 10-18-2024 End: 10-18-2024 ambulatory Jossie De La Rosa Facility:[facility] Start: 09-27-2024 End: 09-27-[address] Jossie De La Rosa MD Work Phone: -Radiology [place] Start: 09-27-2024 End: 09-27-2024 Patient encounter procedure Jc Melissa -[facility] [place] Work Phone: Start: 09-26-2024 End: 09-26-2024 Telemedicine consultation with patient Johanna Mandel MD Work Phone: Hematology/Oncology Start: 09-26-2024 End: 09-27-2024 ambulatory Johanna Mandel MD Work Phone: Hematology/Oncology Comment on above: Smoldering multiple myeloma (SMM) (Primary Dx); Iron deficiency anemia, unspecified iron deficiency anemia type; Hypothyroidism, unspecified type Start: 09-18-2024 End: 09-18-2024 Patient encounter procedure Robyn FORRESTER -Radiology [place] Work Phone: Start: 09-18-2024 End: 09-18-[address] Jossie De La Rosa MD Work Phone: -Radiology [place] Start: 09-18-2024 End: 09-18-2024 ambulatory Jossie De La Rosa Facility:[facility] Start: 08-28-2024 ambulatory Jossie DeL a Rosa Facility:[facility] Start: 08-24-2024 End: 08-24-2024 Telemedicine consultation with patient Johanna Mandel MD Work Phone: Hematology/Oncology Start: 08-24-2024 End: 08-24-2024 ambulatory Johanna Mandel MD Work Phone: Hematology/Oncology Comment on above: Smoldering multiple myeloma (SMM) (Primary Dx); Hypothyroidism, unspecified type Start: 08-23-2024 End: 10-23-2024 Follow-up encounter Johanna Mnadel MD Work Phone: Hematology/Oncology Start: 08-21-2024 End: 08-21-2024 Patient encounter procedure Hero Lawrence -[facility] Work Phone: Start: 08-21-2024 End: 08-21-[address] Jossie De La Rosa MD Work Phone: [facility] Work Phone: Start: 08-21-2024 End: 08-21-2024 ambulatory Jossie De La Rosa Facility:[facility] Start: 08-17-2024 End: 08-21-2024 ambulatory Hilaria Cox MD Work Phone: [facility] Comment on above: recent labs Start: 08-16-2024 End: 08-16-2024 ambulatory HILARIA COX Facility:[facility] Start: 08-01-2024 End: 08-01-2024 Admission to same day surgery center Pippa Rojas APRN.CNP Work Phone: General Surgery Comment on above: Iron deficiency anem ia, unspecified iron deficiency anemia type (Primary Dx) Start: 08-01-2024 End: 08-01-2024 Telemedicine consultation with patient Pippa Rojas [employer] Work Phone: General Surgery Start: 08-01-2024 End: 08-01-2024 ambulatory [facility] Facility:[facility] Start: 07-24-2024 ambulatory [facility] Facility:[facility] Start: 07-24-2024 End: 07-24-2024 Subsequent hospital visit by physician Jenna Shankar MD Work Phone: Ambulatory Surgery Comment on above: Blood in stool [K92. 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 Jossie De La Rosa MD Work Phone: [facility] Work Phone: Start: 06-27-2024 End: 06-27-2024 Patient encounter procedure Robyn FORRESTER -Laboratory Work Phone: Start: 06-27-2024 End: 06-27-2024 Patient encounter procedure Robyn FORRESTER -[facility] Work Phone: Start: 06-27-2024 End: 06-27-2024 ambulatory Jossie De La Rosa [place] Start: 06-27-2024 End: 06-27-2024 ambulatory Robyn Ray Facility:[facility] Start: 06-13-2024 End: 06-13-[address] Jossie De La Rosa MD Work Phone: [facility] Work Phone: Start: 06-13-2024 End: 06-13-[address] Jossie De La Rosa MD -Laboratory, [facility] Start: 06-13-2024 End: 06-13-2024 ambulatory Jossie De La Rosa Facility:[facility] Start: 05-29-2024 End: 05-29-[address] Jossie De La Rosa MD Work Phone: [facility] Work Phone: Start: 05-29-2024 End: 05-29-2024 Patient encounter procedure Jc oTrres -[facility] [place] Work Phone: Start: 05-29-2024 End: 05-29-2024 ambulatory Jossie De La Rosa Facility:[facility] Start: 05-16-2024 End: 05-16-[address] Jossie De La Rosa MD -Laboratory, [facility] Start: 05-16-2024 End: 05-16-2024 ambulatory Jossie De La Rosa Facility:[facility] Start: 04-05-2024 End: 04-05-2024 Patient encounter procedure Jc García [place] Work Phone: Start: 04-05-2024 End: 04-05-2024 [facility] Jossie Rj Facility:[facility] Start: 03-09-2024 End: 03-09-[address] Jossie De La Rosa MD -Laboratory, [place] Work Phone: Start: 03-09-2024 End: 03-09-2024 [facility] Jossie De La Rosa Facility:[facility] Start: 03-08-2024 End: 03-08-[address] Jossie De La Rosa MD -Laboratory, [facility] Work Phone: Start: 03-08-2024 End: 03-08-2024 [facility] Jossie De La Rosa Facility:[facility] Start: 03-07-2024 End: 03-07-[address] Jossie De La Rosa MD -Laboratory, [facility] Work Phone: Start: 03-07-2024 End: 03-07-2024 [facility] Jossie De La Rosa Facility:[facility] Start: 02-07-2024 End: 02-07-2024 [facility] Jossie De La Rosa Facility:[facility] Start: 01-13-2024 End: 01-13-2024 ambulatory Johanna Mandel MD Work Phone: Hematology/Oncology Comment on above: Smoldering multiple myeloma (SMM) (Primary Dx); Hypogammaglobulinemia (HCC); Anemia, unspecified type Start: 01-13-2024 End: 01-13-2024 Telemedicine consultation with patient Johanna Mandel MD Work Phone: Hematology/Oncology Start: 01-12-2024 End: 01-12-2024 ambulatory Jossie De La Rosa [place] [place] Start: 01-06-2024 End: 01-06-2024 ambulatory JOSSIE DE LA ROSA Facility:[facility] Start: 12-08-2023 End: 12-08-2023 ambulatory Jossie De La Rosa Facility:[facility] Start: 10-13-2023 End: 10-13-2023 ambulatory Johanna Mandel MD Work Phone: Hematology/Oncology Comment on above: Monoclonal paraprote inemia (Primary Dx); Hypogammaglobulinemia (HCC) Start: 10-13-2023 End: 10-13-2023 Telemedicine consultation with patient Johanna Mandel MD Work Phone: Hematology/Oncology Start: 10-03-2023 End: 10-03-2023 Subsequent hospital visit by physician [facility] [place] [facility] CT Comment on above: Multiple myeloma not having achieved remission (HCC) [C90.00] Start: 07-14-2023 End: 07-14-2023 ambulatory Johanna Mandel MD Work Phone: Hematology/Oncology Comment on above: Multiple myeloma not having achieved remission (HCC) (Primary Dx); Multiple myeloma, remission status unspecified (HCC) Start: 07-14-2023 End: 07-14-2023 Telemedicine consultation with patient Johanna Mandel MD Work Phone: [facility] Start: 06-20-2023 End: 06-20-2023 ambulatory [facility] Work Phone: Start: 06-20-2023 End: 06-20-2023 Patient encounter procedure [facility] Work Phone: Start: 06-13-2023 End: 06-13-2023 ambulatory [facility] Work Phone: Start: 06-13-2023 End: 06-13-2023 Patient encounter procedure [facility] Work Phone: Start: 05-03-2023 End: 05-03-[address] Jossie De La Rosa Work Phone: [facility] Work Phone: Start: 05-03-2023 End: 05-03-[address] Jossie De La Rosa Work Phone: [facility] Work Phone: Start: 02-25-2023 End: 02-25-[address] Jossie De La Rosa Work Phone: [facility] Work Phone: Start: 02-25-2023 End: 02-25-[address] Jossie De La Rosa Work Phone: [facility] Work Phone: Start: 02-24-2023 End: 02-24-2023 ambulatory Johanna Mandel MD Work Phone: Hematology/Oncology Comment on above: Smoldering multiple myeloma (SMM) (Primary Dx) Start: 02-24-2023 End: 02-24-2023 Telemedicine consultation with patient Johanna Mandel MD Work Phone: [facility] Start: 01-13-2023 End: 01-13-[address] Jossie De La Rosa Work Phone: [facility] Work Phone: Start: 01-13-2023 End: 01-13-[address] Jossie De La Rosa Work Phone: [facility] Work Phone: Start: 01-11-2023 End: 01-11-[address] Jossie De La Rosa Work Phone: [facility] Work Phone: Start: 12-07-2022 End: 12-07-[address] Jossie De La Rosa Work Phone: [facility] Work Phone: Start: 11-24-2022 End: 11-24-2022 ambulatory Johanna Mandel MD Work Phone: Hematology/Oncology Comment on above: Smoldering multiple myeloma (SMM) (Primary Dx) Start: 11-24-2022 End: 11-24-2022 Patient encounter procedure Johanna Mandel MD Work Phone: [facility] Start: 11-11-2022 End: 11-11-[address] Jossie De La Rosa Work Phone: [facility] Work Phone: Start: 11-02-2022 ambulatory Johanna Mandel MD Work Phone: Hematology/Oncology Comment on above: Labs Start: 11-02-2022 E-mail encounter hood roman caregiver Joahnna Mandel MD Work Phone: [facility] Start: 10-25-2022 End: 10-26-2022 ambulatory Shauna White APRN.[employer] Work Phone: Hematology/Oncology Comment on above: Multiple myeloma, re mission status unspecified (HCC) (Primary Dx) Start: 10-25-2022 End: 10-26-2022 Patient encounter procedure Shauna White APRN.[employer] SAL[employer] ASSOCIATE Work Phone: [facility] Start: 09-24-2022 Telephone encounter Johanna Mandel MD Work Phone: Hematology/Oncology Comment on above: Results Start: 09-09-2022 End: 09-09-[address] Work Phone: Gastroenterology Comment on above: Constipation, unspec ified constipation type Start: 09-09-2022 End: 09-09-2022 Telemedicine consultation with patient Bev Kai PETER Work Phone: [facility] Start: 09-02-2022 ambulatory JOHANNA MANDEL Facility:[id number] Start: 09-02-2022 End: 09-02-2022 Subsequent hospital visit by physician [facility] Work Phone: [facility] Comment on above: Smoldering myeloma [ D47.2] Start: 08-27-2022 End: 08-27-2022 ambulatory Bmbx 1 Work Phone: Hematology/Oncology Comment on above: Neoplasm of unspecif ied behavior of bone, soft tissue, and skin Start: 08-27-2022 End: 08-27-2022 Patient encounter procedure B[facility]x Room 1 Work Phone: [facility] Start: 08-06-2022 Telephone encounter Johanna Mandel MD Work Phone: Hematology/Oncology Comment on above: 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 - O ther (PET scan results) Start: 08-05-2022 End: 08-05-2022 Subsequent hospital visit by physician [facility] Comment on above: Multiple myeloma not having achieved remission (HCC) [C90.00] Start: 08-03-2022 Telephone encounter Johanna Mandel MD Work Phone: Hematology/Oncology Comment on above: Patient Update Start: 07-28-2022 ambulatory Rafita Lea MD Work Phone: Gastroenterology Comment on above: written instructions sent to [facility] for colonoscopy Start: 07-19-2022 ambulatory Johanna Mandel MD Work Phone: Hematology/Oncology Comment on above: labs needed before t he 18 of August? Start: 07-12-2022 ambulatory No Pcp Alyce Soshowise Start: 07-09-2022 Telephone encounter Madhavi mayberry PA-C Work Phone: Plastic Surgery Comment on above: Patient Question (Up coming procedure) Start: 07-08-2022 Telephone encounter Johanna Mandel MD Work Phone: Hematology/Oncology Comment on above: Nm Pet Request Opened In Error Start: 07-08-2022 End: 07-09-2022 ambulatory Johanna Mandel MD Work Phone: Hematology/Oncology Comment on above: Elevated serum immun oglobulin free light chains; Iron deficiency anemia, unspecified iron deficiency anemia type Monoclonal gammopath y (Primary Dx); Multiple myeloma not having achieved remission (HCC) Start: 07-08-2022 End: 07-09-2022 Patient encounter procedure [facility] Room 1 Work Phone: [facility] Start: 06-29-2022 End: 06-29-2022 ambulatory Jenna Trevino MD Work Phone: [facility] Comment on above: Muscle weakness of l ower extremity (Primary Dx); Edema, unspecified type; MGUS (monoclonal gammopathy of unknown significance); Lymphedema; Iron deficiency anemia, unspecified iron deficiency anemia type; Stage 2 chronic kidney disease; Irritable bowel syndrome with constipation; Hypoalbuminemia Start: 06-29-2022 End: 06-29-2022 Telemedicine consultation with patient Jenna Trevino MD Work Phone: [facility] Start: 06-21-2022 End: 06-21-2022 Patient encounter procedure Yokasta Walker MD Work Phone: Vascular Medicine Comment on above: Lymphedema (Primary Dx); Edema, unspecified type Encounter for consul tation (Primary Dx) Weakness (Primary Dx ); Elevated CK; Muscle weakness of lower extremity Start: 06-21-2022 End: 06-21-2022 ambulatory Shauna White APRN.[employer]OCIATE Work Phone: Hematology/Oncology Comment on above: Monoclonal paraprote inemia (Primary Dx); Iron deficiency anemia Start: 06-14-2022 Telephone encounter Gerard parsons APRN.[employer] ASSOCIATE Work Phone: Gastroenterology Comment on above: Orders Start: 06-11-2022 End: 06-11-2022 ambulatory Rafita Lea MD Work Phone: Gastroenterology Comment on above: Elevated fecal calpr otectin (Primary Dx); Blood in stool; Iron deficiency anemia, unspecified iron deficiency anemia type; Constipation, unspecified constipation type; Nausea; Irritable bowel syndrome with constipation; 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 Start: 06-11-2022 End: 06-11-2022 Telemedicine consultation with patient Rafita Lea MD Work Phone: [facility] Start: 06-07-2022 End: 06-07-2022 ambulatory Jenna Trevino MD Work Phone: [facility] Comment on above: Edema, unspecified t ype (Primary Dx); Elevated CK; Muscle weakness of lower extremity; Elevated TSH; Iron deficiency anemia, unspecified iron deficiency anemia type; Constipation, unspecified constipation type; Abdominal bloating Start: 06-07-2022 End: 06-07-2022 Telemedicine consultation with patient Jenna Trevino MD Work Phone: [facility] Start: 06-03-2022 End: 06-03-2022 Patient encounter procedure Ignacio Louise Jaylin FROST Work Phone: Rheumatology Comment on above: 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 (Primary Dx); Anasarca; Elevated CK; Muscle weakness; Elevated LFTs; History of leukopenia, WBC 3.3 with ANC 2K and ALC 800, both low, on 03/27/2012; Iron deficiency anemia; Hypogammaglobulinemia; Abnormal serum free light chain ratio (low); History of hypothyroidism; History of small intestinal bacterial overgrowth (SIBO); Protein losing enteropathy Start: 05-25-[address] Jossie De La Rosa Work Phone: [facility] Start: 05-25-2022 End: 05-25-[address] Jossie De La Rosa Work Phone: [facility] Start: 05-20-[address] Jossie De La Rosa Work Phone: [facility] Start: 05-20-2022 End: 05-20-[address] Jossie De La Rosa Work Phone: [facility] Start: 05-19-[address] Jossie De La Rosa Work Phone: [facility]-Occupational Therapy Start: 05-17-2022 End: 05-17-[address] Jossie De La Rosa Work Phone: [facility] Work Phone: Start: 05-17-2022 End: 05-17-[address] Jossie De La Rosa Work Phone: [facility] Start: 05-12-2022 End: 05-12-[address] Jossie De La Rosa Work Phone: [facility] Work Phone: Start: 05-12-2022 End: 05-12-[address] Jossie De La Rosa Work Phone: [facility]-Laboratory, [facility] 3rd Flr Start: 05-10-2022 End: 05-10-2022 Emergency department patient visit Dr. Jossie De La Rosa Work Phone: [facility]-Emergency Department Start: 03-24-2022 End: 03-24-[address] Jossie De La Rosa Work Phone: [facility] Work Phone: Start: 03-24-2022 End: 03-24-[address] Jossie De La Rosa Work Phone: [facility] Start: 03-20-2022 Non-patient / Non-visit Dr. Barak De La Rosa Work Phone: [facility] Inpatient Physicians Start: 03-19-2022 Non-patient / Non-visit Dr. Barak De La Rosa Work Phone: [facility] Start: 03-18-2022 Non-patient / Non-visit Dr. Barak De La Rosa Work Phone: [facility] Start: 03-18-2022 Non-patient / Non-visit Dr. Barak De La Rosa Work Phone: [facility] Start: 03-17-2022 Non-patient / Non-visit Dr. Barak De La Rosa Work Phone: [facility] Start: 03-16-2022 Non-patient / Non-visit Dr. Barak De La Rosa Work Phone: [facility] Start: 03-15-2022 End: 03-20-2022 Evaluation and management of inpatient Dr. Jossie De La Rosa Work Phone: [facility] Care Unit Start: 03-15-2022 Non-patient / Non-visit Dr. Barak De La Rosa Work Phone: [facility] Start: 03-13-2022 End: 03-13-[address] Jossie De La Rosa Work Phone: [facility] Work Phone: Start: 03-13-2022 End: 03-13-[address] Jossie De La Rosa Work Phone: [facility] Start: 03-11-2022 End: 03-11-[address] Jossie De La Rosa Work Phone: [facility] Work Phone: Start: 03-11-2022 End: 03-11-[address] Jossie De La Rosa Work Phone: [facility] Start: 02-23-2022 End: 02-23-[address] Jossie De La Rosa Work Phone: [facility] Start: 2022 End: [address] Jossie De La Rosa Work Phone: [facility] Work Phone: Start: 2022 End: [address] Jossie De La Rosa Work Phone: [facility] Start: 01-20-2022 End: 01-20-[address] Jossie De La Rosa Work Phone: [facility] Work Phone: Start: 01-20-2022 End: 01-20-[address] Jossie De La Rosa Work Phone: [facility] Start: 01-12-2022 End: 01-12-[address] Jossie De La Rosa Work Phone: [facility] Work Phone: Start: 01-12-2022 End: 01-12-[address] Jossie De La Rosa Work Phone: [facility] Start: 01-12-2022 End: 01-12-[address] Jossie De La Rosa Work Phone: [facility] Start: 12-29-2021 End: 12-29-[address] Jossie De La Rosa Work Phone: [facility] Work Phone: Start: 12-29-2021 End: 12-29-[address] Jossie De La Rosa Work Phone: [facility] Start: 12-17-2021 End: 12-17-[address] Jossie De La Rosa Work Phone: [facility] Work Phone: Start: 12-17-2021 End: 12-17-[address] [facility] Start: 12-17-2021 End: 12-17-[address] Jossie De La Rosa Work Phone: [facility] Start: 11-23-2021 End: 11-23-[address] Jossie De La Rosa Work Phone: [facility] Work Phone: Start: 11-23-2021 End: 11-23-[address] Jossie De La Rosa Work Phone: [facility] Start: 11-02-2021 End: 11-02-[address] Jossie De La Rosa Work Phone: [facility] Start: 10-26-2021 End: 10-26-[address] Jossie De La Rosa Work Phone: [facility] Start: 09-22-2021 End: 09-22-[address] Jossie De La Rosa Work Phone: [facility] Start: 09-07-2021 End: 09-07-[address] Jossie De La Rosa Work Phone: [facility] Start: 08-18-2021 End: 08-18-2021 Patient encounter procedure Dr. Jossie De La Rosa Work Phone: [facility] Start: 07-21-2021 End: 07-21-[address] Jossie De La Rosa Work Phone: [facility]-Outpatient Bone Densitometry Start: 07-21-2021 End: 07-25-[address] Jossie De La Rosa Work Phone: [facility]-Nutritional Services Start: 07-16-2021 End: 07-16-[address] Jossie De La Rosa Work Phone: [facility] Start: 06-26-2021 End: 06-26-[address] Jossie De La Rosa Work Phone: [facility] Start: 06-23-2021 End: 06-23-[address] Jossie De La Rosa Work Phone: [facility] Start: 06-15-2021 End: 06-15-[address] Jossie De La Rosa Work Phone: [facility] Start: 06-09-2021 End: 06-09-[address] Jossie De La Rosa Work Phone: [facility] Start: 05-31-2021 End: 05-31-2021 Emergency department patient visit Dr. Jossie De La Rosa Work Phone: [facility]-Emergency Department Start: 05-31-2021 Non-patient / Non-visit Dr. Barak De La Rosa Work Phone: [facility] Start: 05-25-2021 End: 05-25-[address] Jossie De La Rosa Work Phone: [facility] Start: 05-20-2021 Non-patient / Non-visit Dr. Barak De La Rosa Work Phone: [facility] Inpatient Physicians Start: 05-19-2021 Non-patient / Non-visit Dr. Barak De La Rosa Work Phone: [facility] Start: 05-19-2021 Non-patient / Non-visit Dr. Barak De La Rosa Work Phone: [facility] Inpatient Physicians Start: 05-18-2021 Non-patient / Non-visit Dr. Barak De La Rosa Work Phone: [facility] Start: 05-17-2021 Non-patient / Non-visit Dr. Barak De La Rosa Work Phone: [facility] Inpatient Physicians Start: 05-16-2021 Non-patient / Non-visit Dr. Barak De La Rosa Work Phone: [facility]patient Physicians Start: 05-16-2021 End: 05-20-2021 Evaluation and management of inpatient Dr. Jossie De La Rosa Work Phone: [facility] Start: 04-27-2021 End: 04-27-[address] Jossie De La Rosa Work Phone: [facility] Start: 04-23-2021 End: 04-23-[address] Jossie De La Rosa Work Phone: [facility], [facility] Start: 04-09-2021 End: 04-09-[address] [facility] De La Rosa [facility] Start: 04-01-2021 End: 04-01-[address] Jossie De La Rosa Work Phone: [facility] Start: 03-23-[address] Jossie De La Rosa Work Phone: [facility]-Laboratory, [place] Procedures Date Procedure Procedure Detail Performing Clinician Start: 10-18-2024 Urnls dip stick/tablet reagent auto microscopy Dr. Jossie De La Rosa MD Work Phone: Start: 10-18-[address] Jossie De La Rosa MD Work Phone: Comment on above: Test Ordered: [id number] VEGF, PlasmaTest(s) [id number], PlasmaThis test was developed and its performance characteristicsdetermined by [employer]. It has not been cleared orapproved by the Food and Drug Administration.VEGF, Plasma 71 pg/mL Reference Range: 0-115R and D [employer] Quantikine Enzyme Immunoassay (EIA)Values obtained with different assay methods or kits cannotbe used interchangeably. Results cannot be interpreted asabsolute evidence of the presence or absence of malignantdisease.Performed at: [address] [id number] Director: Neda Sousa MD, Phone: [phone] at: [address] [id number] Director: Ortiz Hayden PhD, Phone: [phone] Start: 10-18-[address] Jossie De La Rosa MD Work Phone: Comment on above: According to the National Academy of Cli nical Biochemistry,the reference interval for Thyroglobulin (TG) should berelated to euthyroid patients and not for patients whounderwent thyroidectomy. TG reference intervals for thesepatients depend on the residual mass of the thyroid tissueleft after surgery. Establishing a post-operative baselineis recommended. The assay limit of quantitation is 0.1ng/mLThyroglobulin measured by [employer] Start: 10-18-[address] Jossie De La Rosa MD Work Phone: Start: 10-18-[address] Thai De La Rosa MD Work Phone: Comment on above: Thyroglobulin Antibody measured by [employer] Mediaworksjessie covarrubias Mall StreetMethodologyIt should be noted that the presence of thyroglobulinantibodies may not be pathogenic nor diagnostic, especiallyat very low levels. The assay rubber block layer has found thatfour percent of individuals without evidence of thyroiddisease or autoimmunity will have positive TgAb levels upto 4 IU/mL. Start: 09-27-2024 Fibrinogen assay, quantitative Dr. Jossie De La Rosa MD Work Phone: Start: 09-27-[address] Jossie De La Rosa MD Work Phone: Comment on above: Performed at: [facility] [address] [id number] Director: Ortiz Hayden PhD, Phone: [phone] Start: 09-27-[address] Jossie De La Rosa MD Work Phone: Comment on above: Test Ordered: [id number] VEGF, SerumTest(s) [id number], SerumThis test was developed and its performance characteristicsdetermined by [employer]. It has not been cleared orapproved by the Food and Drug Administration.VEGF, Serum 424 pg/mL Reference Range: 62-707R and D [employer] Quantikine Enzyme Immunoassay (EIA)Values obtained with different assay methods or kits cannotbe used interchangeably. Results cannot be interpreted asabsolute evidence of the presence or absence of malignantdisease.Performed at: [facility] [address] [id number] Director: Neda Sousa MD, Phone: [phone] at: [facility] [address] [id number] Director: Ortiz Hayden PhD, Phone: [phone] Start: 09-27-2024 Total iron binding capacity measurement Dr. Jossie De La Rosa MD Work Phone: Start: 09-27-2024 Vitamin D, 25-hydroxy measurement Dr. Barak De La Rosa MD Work Phone: Comment on above: Vitamin D StatusDeficiency: <20 ng/mL (5 0nmol/L)Insufficiency: 20-30 ng/mL (50-75 nmol/L)Sufficiency: 30-100 ng/mL (75-250 nmol/L)Toxicity: >100 ng/mL (>250 nmol/L) Start: 09-18-2024 Plain X-ray abdomen Dr. Jossie De La Rosa MD Work Phone: Start: 08-21-[address] Jossie De La Rosa MD Work Phone: Start: 08-21-2024 Total iron binding capacity measurement Dr. Jossie De La Rosa MD Work Phone: Start: 07-24-2024 Colonoscopy flx dx w/collj spec when pfrmd Johanna Mandel MD Work Phone: Start: 07-24-2024 Esophagogastroduodenoscopy transoral diagnostic Johanna Mandel MD Work Phone: Start: 07-24-2024 Colonoscopy Jenna Shankar MD Work Phone: Start: 05-29-[address] Jossie De La Rosa MD Work Phone: Start: 05-29-2024 Copper measurement, serum Dr. Jossie De La Rosa MD Work Phone: Comment on above: Detection Limit = 5 Start: 05-29-2024 D-dimer assay, quantitative Dr. Jossie francisco MD Work Phone: Comment on above: NORMAL D-Dimer level (<0.50) indicates n o DVT or PE. Start: 05-29-[address] Jossie De La Rosa MD Work Phone: Comment on above: Performed at: [address] [id number] Director: Ortiz Hayden PhD, Phone: [phone] Start: 05-29-[address] Jossie De La Rosa MD Work Phone: Comment on above: The LDH isoenzyme pattern appears normal with a normaltotal LDH. Start: 05-29-[address] Jossie De La Rosa MD Work Phone: Start: 05-29-[address] Jossie De La Rosa MD Work Phone: Start: 05-29-2024 Total iron binding capacity measurement Dr. Jossie De La Rosa MD Work Phone: Start: 05-16-2024 Measurement of C-reactive protein using high sensitivity technique Dr. Jossie De La Rosa MD Work Phone: Comment on above: C-Reactive Protein (CRP) provides useful information for thediagnosis, therapy and monitoring of inflammatory processesand associated diseases. For the evaluation of Relative Riskfor Cardiovascular Disease, a High Sensitivity CRP (HSCRP)should be ordered. Start: 05-16-2024 Measurement of renal function Dr. Jossie haji MD Work Phone: Comment on above: GFR Calc Start: 03-09-2024 [place] parasites identification Dr. Jossie De La Rosa MD Work Phone: Start: 03-08-[address] parasites identification Dr. Jossie De La Rosa MD Work Phone: Start: 03-07-[address] Jossie Wahl Work Phone: Start: 03-07-[address] Jossie De La Rosa MD Work Phone: Start: 03-07-20[address] parasites identification Dr. Jossie De La Rosa MD Work Phone: Start: 10-03-2023 Gluc bld gluc mntr dev cleared fda spec home use [facility] Provider Start: 09-02-2022 End: 09-02-2022 Mri pelvis w/o & w/contrast material Johanna Mandel MD Work Phone: Start: 08-27-2022 Diagnostic bone marrow biopsies & aspirations Fletcher Wilkerson PA-C Work Phone: Start: 08-27-2022 FLOW CYTOMETRY BONE MARROW HOLD (BMHOLD) Johanna Mandel MD Work Phone: Start: 08-10-2022 Colonoscopy Bmbx 1 Work Phone: Start: 08-05-[address] attenuation whole body Johanna Mandel MD Work Phone: Start: 08-05-2022 Gluc bld gluc mntr dev cleared fda spec home use [facility] Provider Start: 07-08-2022 Diagnostic bone marrow biopsies & aspirations Maame Loza 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.SOLAR SALES ASSOCIATE Work Phone: Start: 07-08-2022 Blood count complete auto&auto difrntl wbc Shauna White 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.SOLAR SALES ASSOCIATE Work Phone: Start: 07-08-2022 FLOW CYTOMETRY BONE MARROW HOLD (BMHOLD) Shauna White 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.SOLAR SALES ASSOCIATE Work Phone: Start: 05-10-2022 Plain chest X-ray Dr. Jossie De La Rosa Work Phone: Start: 03-18-2022 CT of chest and abdomen Dr. Jossie De La Rosa Work Phone: Start: 12-29-[address] Jossie mata Work Phone: Start: 12-29-[address] Jossie De La Rosa Work Phone: Start: 07-21-2021 Dual energy X-ray absorptiometry Dr. Kitty De La Rosa Work Phone: Start: 05-19-[address] Jossie De La Rosa Work Phone: Start: 05-19-2021 SARS-CoV-2 Antigen (Rapid) Dr. Jossie mata Work Phone: Start: 05-19-2021 MRI of brain with contrast Dr. Jossie mata Work Phone: Start: 05-18-2021 CT of head without contrast Dr. Jossie francisco Work Phone: Start: 05-16-2021 CT of head without contrast Dr. Jossie francisco Work Phone: Start: 05-16-2021 Plain chest X-ray Dr. Jossie De La Rosa Work Phone: Start: 04-23-[address] Jossie De La Rosa Work Phone: Plan of Treatment Date Care Activity Detail Author Start: 09-19-2027 Diabetes Screening Diabetes Screening [facility] Start: 08-17-2027 Diabetes Screening Diabetes Screening [facility] Start: 07-07-2027 Diabetes Screening Diabetes Screening [facility] Start: 01-05-2027 Diabetes Screening Diabetes Screening [facility] Start: 10-03-2026 Diabetes Screening Diabetes Screening [facility] Start: 07-06-2026 Diabetes Screening Diabetes Screening [facility] Start: 02-14-2026 Diabetes Screening Diabetes Screening [facility] Start: 11-24-2025 DIABETES SCREEN DIABETES SCREEN [facility] Start: 10-25-2025 DIABETES SCREEN DIABETES SCREEN [facility] Start: 09-23-2025 DIABETES SCREEN DIABETES SCREEN [facility] Start: 09-18-2025 Creatinine measurement Serum Creatinine [facility] Start: 08-27-2025 DIABETES SCREEN DIABETES SCREEN [facility] Start: 08-16-2025 Creatinine measurement Serum Creatinine [facility] Start: 07-24-2025 Screening for malignant neoplasm of colon [facility] Start: 07-06-2025 Creatinine measurement Serum Creatinine [facility] Start: 06-21-2025 DIABETES SCREEN DIABETES SCREEN [facility] Start: 01-05-2025 Creatinine measurement Serum Creatinine [facility] Start: 01-02-2025 End: 01-02-2025 ambulatory 01/02/2025 2:00 PM EDT [facility] Endocrin[facility] [place] [address] [place] [id number] [place] [address] [address] thyroid Endocrinology [place] Comment on above: thyroid Start: 12-28-2024 End: 12-28-2024 Follow-up encounter 12/28/2024 4:30 PM EDT [facility] Hematology/Oncology [address] [place] [address] Johanna Mandel MD [address] [place] [address] follow up Hematology/Oncology Comment on above: follow up Start: 12-27-2024 End: 03-28-2025 MONOCLONAL PROTEIN, SERUM (BLOOD) MONOCLONAL PROTEIN, SERUM (BLOOD) Lab Routine Smoldering multiple myeloma (SMM) Expected: 12/27/2024 (Approximate), Expires: 03/28/2025 [facility] Comment on above: Expected: 12/27/2024 (Approximate), Expi res: 03/28/2025 Start: 12-25-2024 End: 03-26-2025 CBC W Auto Differential panel - Blood COMPLETE BLOOD COUNT AND DIFFERENTIAL Lab Routine Smoldering multiple myeloma (SMM) Expected: 12/25/2024 (Approximate), Expires: 03/26/2025 [facility] Comment on above: Expected: 12/25/2024 (Approximate), Expi res: 03/26/2025 Start: 12-25-2024 End: 03-26-2025 Comprehensive metabolic 2000 panel - Serum or Plasma COMPREHENSIVE METABOLIC PANEL Lab Routine Smoldering multiple myeloma (SMM) Expected: 12/25/2024 (Approximate), Expires: 03/26/2025 [facility] Comment on above: Expected: 12/25/2024 (Approximate), Expi res: 03/26/2025 Start: 12-25-2024 End: 03-26-2025 Lactate dehydrogenase [Enzymatic activity/volume] in Serum or Plasma LACTATE DEHYDROGENASE Lab Routine Smoldering multiple myeloma (SMM) Expected: 12/25/2024 (Approximate), Expires: 03/26/2025 [facility] Comment on above: Expected: 12/25/2024 (Approximate), Expi res: 03/26/2025 Start: 12-25-2024 End: 03-26-2025 MONOCLONAL PROT UR W/INTERP MONOCLONAL PROT UR W/INTERP Lab Routine Smoldering multiple myeloma (SMM) Expected: 12/25/2024 (Approximate), Expires: 03/26/2025 [facility] Work Phone: Comment on above: Expected: 12/25/2024 (Approximate), Expi res: 03/26/2025 Start: 12-25-2024 End: 03-26-2025 PROTEIN ELECT RND UR W/INTERP PROTEIN ELECT RND UR W/INTERP Lab Routine Smoldering multiple myeloma (SMM) Expected: 12/25/2024 (Approximate), Expires: 03/26/2025 [facility] Comment on above: Expected: 12/25/2024 (Approximate), Expi res: 03/26/2025 Start: 12-25-2024 End: 03-26-2025 PROTEIN ELECTROPHORESIS SERUM W/INTERP PROTEIN ELECTROPHORESIS SERUM W/INTERP Lab Routine Smoldering multiple myeloma (SMM) Expected: 12/25/2024 (Approximate), Expires: 03/26/2025 [facility] Comment on above: Expected: 12/25/2024 (Approximate), Expi res: 03/26/2025 Start: 11-26-2024 Influenza vaccination [facility] Start: 11-21-2024 End: 02-20-2025 Thyrotropin [Units/volume] in Serum or Plasma THYROID STIMULATING HORMONE Lab Routine Acquired hypothyroidism Expected: 11/21/2024 (Approximate), Expires: 02/20/2025 [facility] Work Phone: Comment on above: Expected: 11/21/2024 (Approximate), Expi res: 02/20/2025 Start: 11-21-2024 End: 02-20-2025 Triiodothyronine (T3) Free [Mass/volume] in Serum or Plasma T3, FREE Lab Routine Acquired hypothyroidism Expected: 11/21/2024 (Approximate), Expires: 02/20/2025 [facility] Comment on above: Expected: 11/21/2024 (Approximate), Expi res: 02/20/2025 Start: 10-03-2024 Creatinine measurement Serum Creatinine [facility] Start: 09-26-2024 End: 09-26-2024 Follow-up encounter 09/26/2024 3:00 PM [facility] Hematology/Oncology [address] [place] [address] Johanna Mandel MD [address] [place], [place] [id number] follow up Hematology/Oncology Comment on above: follow up Start: 09-24-2024 End: 12-24-2024 CBC W Auto Differential panel - Blood COMPLETE BLOOD COUNT AND DIFFERENTIAL Lab Routine Smoldering multiple myeloma (SMM) Expected: 09/24/2024 (Approximate), Expires: 12/24/2024 [facility] Comment on above: Expected: 09/24/2024 (Approximate), Expi res: 12/24/2024 Start: 09-24-2024 End: 12-24-2024 Comprehensive metabolic 2000 panel - Serum or Plasma COMPREHENSIVE METABOLIC PANEL Lab Routine Smoldering multiple myeloma (SMM) Expected: 09/24/2024 (Approximate), Expires: 12/24/2024 [facility] Comment on above: Expected: 09/24/2024 (Approximate), Expi res: 12/24/2024 Start: 09-24-2024 End: 12-24-2024 Lactate dehydrogenase [Enzymatic activity/volume] in Serum or Plasma LACTATE DEHYDROGENASE Lab Routine Smoldering multiple myeloma (SMM) Expected: 09/24/2024 (Approximate), Expires: 12/24/2024 [facility] Comment on above: Expected: 09/24/2024 (Approximate), Expi res: 12/24/2024 Start: 09-24-2024 End: 12-24-2024 MONOCLONAL PROT UR W/INTERP MONOCLONAL PROT UR W/INTERP Lab Routine Smoldering multiple myeloma (SMM) Expected: 09/24/2024 (Approximate), Expires: 12/24/2024 [facility] Work Phone: Comment on above: Expected: 09/24/2024 (Approximate), Expi res: 12/24/2024 Start: 09-24-2024 End: 12-24-2024 MONOCLONAL PROTEIN, SERUM (BLOOD) MONOCLONAL PROTEIN, SERUM (BLOOD) Lab Routine Smoldering multiple myeloma (SMM) Expected: 09/24/2024 (Approximate), Expires: 12/24/2024 [facility] Comment on above: Expected: 09/24/2024 (Approximate), Expi res: 12/24/2024 Start: 09-24-2024 End: 12-24-2024 PROTEIN ELECT RND UR W/INTERP PROTEIN ELECT RND UR W/INTERP Lab Routine Smoldering multiple myeloma (SMM) Expected: 09/24/2024 (Approximate), Expires: 12/24/2024 [facility] Comment on above: Expected: 09/24/2024 (Approximate), Expi res: 12/24/2024 Start: 09-24-2024 End: 12-24-2024 PROTEIN ELECTROPHORESIS SERUM W/INTERP PROTEIN ELECTROPHORESIS SERUM W/INTERP Lab Routine Smoldering multiple myeloma (SMM) Expected: 09/24/2024 (Approximate), Expires: 12/24/2024 [facility] Comment on above: Expected: 09/24/2024 (Approximate), Expi res: 12/24/2024 Start: 09-11-2024 End: 12-11-2024 CBC W Auto Differential panel - Blood COMPLETE BLOOD COUNT AND DIFFERENTIAL Lab Routine Smoldering multiple myeloma (SMM) Expected: 09/11/2024 (Approximate), Expires: 12/11/2024 [facility] Comment on above: Expected: 09/11/2024 (Approximate), Expi res: 12/11/2024 Start: 09-11-2024 End: 12-11-2024 Comprehensive metabolic 2000 panel - Serum or Plasma COMPREHENSIVE METABOLIC PANEL Lab Routine Smoldering multiple myeloma (SMM) Expected: 09/11/2024 (Approximate), Expires: 12/11/2024 [facility] Comment on above: Expected: 09/11/2024 (Approximate), Expi res: 12/11/2024 Start: 09-11-2024 End: 12-11-2024 Lactate dehydrogenase [Enzymatic activity/volume] in Serum or Plasma LACTATE DEHYDROGENASE Lab Routine Smoldering multiple myeloma (SMM) Expected: 09/11/2024 (Approximate), Expires: 12/11/2024 [facility] Comment on above: Expected: 09/11/2024 (Approximate), Expi res: 12/11/2024 Start: 09-11-2024 End: 12-11-2024 MONOCLONAL PROT UR W/INTERP MONOCLONAL PROT UR W/INTERP Lab Routine Smoldering multiple myeloma (SMM) Expected: 09/11/2024 (Approximate), Expires: 12/11/2024 [facility] Comment on above: Expected: 09/11/2024 (Approximate), Expi res: 12/11/2024 Start: 09-11-2024 End: 12-11-2024 MONOCLONAL PROTEIN, SERUM (BLOOD) MONOCLONAL PROTEIN, SERUM (BLOOD) Lab Routine Smoldering multiple myeloma (SMM) Expected: 09/11/2024 (Approximate), Expires: 12/11/2024 [facility] Comment on above: Expected: 09/11/2024 (Approximate), Expi res: 12/11/2024 Start: 09-11-2024 End: 12-11-2024 PROTEIN ELECT RND UR W/INTERP PROTEIN ELECT RND UR W/INTERP Lab Routine Smoldering multiple myeloma (SMM) Expected: 09/11/2024 (Approximate), Expires: 12/11/2024 [facility] Comment on above: Expected: 09/11/2024 (Approximate), Expi res: 12/11/2024 Start: 09-11-2024 End: 12-11-2024 PROTEIN ELECTROPHORESIS SERUM W/INTERP PROTEIN ELECTROPHORESIS SERUM W/INTERP Lab Routine Smoldering multiple myeloma (SMM) Expected: 09/11/2024 (Approximate), Expires: 12/11/2024 [facility] Comment on above: Expected: 09/11/2024 (Approximate), Expi res: 12/11/2024 Start: 08-24-2024 End: 08-24-2024 ambulatory 08/24/2024 4:00 PM EDT [facility] Hematology/Oncology [address] [place] [address] Johanna Mandel MD [address] [place] [address] virtual visit Hematology/Oncology Comment on above: virtual visit Start: 08-24-2024 End: 11-23-2024 Ferritin [Mass/volume] in Serum or Plasma FERRITIN Lab Routine Smoldering multiple myeloma (SMM) Expected: 08/24/2024, Expires: 11/23/2024 [facility] Comment on above: Expected: 08/24/2024, Expires: Start: 08-24-2024 End: 11-23-2024 Iron and Iron binding capacity panel - Serum or Plasma IRON AND TIBC Lab Routine Smoldering multiple myeloma (SMM) Expected: 08/24/2024, Expires: 11/23/2024 [facility] Comment on above: Expected: 08/24/2024, Expires: Start: 08-21-2024 Reticulocyte count [facility] Start: 08-15-2024 End: 11-14-2024 Thyrotropin [Units/volume] in Serum or Plasma THYROID STIMULATING HORMONE Lab Routine Acquired hypothyroidism Expected: 08/15/2024 (Approximate), Expires: 11/14/2024 [facility] Work Phone: Comment on above: Expected: 08/15/2024 (Approximate), Expi res: 11/14/2024 Start: 08-15-2024 End: 11-14-2024 Thyroxine (T4) free [Mass/volume] in Serum or Plasma T4 FREE/FREE THYROXINE Lab Routine Acquired hypothyroidism Expected: 08/15/2024 (Approximate), Expires: 11/14/2024 [facility] Comment on above: Expected: 08/15/2024 (Approximate), Expi res: 11/14/2024 Start: 08-15-2024 End: 11-14-2024 Triiodothyronine (T3) Free [Mass/volume] in Serum or Plasma T3, FREE Lab Routine Acquired hypothyroidism Expected: 08/15/2024 (Approximate), Expires: 11/14/2024 [facility] Comment on above: Expected: 08/15/2024 (Approximate), Expi res: 11/14/2024 Start: 08-01-2024 End: 08-01-2024 Follow-up encounter 08/01/2024 3:00 PM EDT [facility] General Surgery [address] [place] [address] Pippa Rojas APRN.[employer]AR SALES ASSOCIATE [address] [place] [address] 07-24 EGD follow up [facility] General Surgery Comment on above: 07-24 EGD follow up [facility] Start: 07-24-2024 End: 07-24-2024 Patient encounter procedure 07/24/2024 1:30 PM EDT Appointment Ambulatory Surgery [address] [place] [id number] Ambulatory Surgery Start: 07-24-2024 End: 07-24-2024 Patient encounter procedure 07/24/2024 9:45 AM EDT Appointment Ambulatory Surgery [address] [place] [address] Jenna Shankar MD [address] [place] [id number] Anemia, unspecified type [D64.9] Ambulatory Surgery Comment on above: Anemia, unspecified type [D64.9] Start: 07-13-2024 End: 07-13-2024 Follow-up encounter 07/13/2024 4:00 PM ED[address] [facility] Hematology/Oncology [id number] [place] [address] Johanna Mandel MD [address] [place] [address] VV FOLLOW UP Hematology/Oncology Comment on above: VV FOLLOW UP Start: 07-13-2024 End: 10-12-2024 MONOCLONAL PROTEIN, SERUM (BLOOD) MONOCLONAL PROTEIN, SERUM (BLOOD) Lab Routine Smoldering multiple myeloma (SMM) Expected: 07/13/2024 (Approximate), Expires: 10/12/2024 [facility] Comment on above: Expected: 07/13/2024 (Approximate), Expi res: 10/12/2024 Start: 07-11-2024 End: 10-10-2024 CBC W Auto Differential panel - Blood COMPLETE BLOOD COUNT AND DIFFERENTIAL Lab Routine Smoldering multiple myeloma (SMM) Expected: 07/11/2024 (Approximate), Expires: 10/10/2024 [facility] Comment on above: Expected: 07/11/2024 (Approximate), Expi res: 10/10/2024 Start: 07-11-2024 End: 10-10-2024 Comprehensive metabolic 2000 panel - Serum or Plasma COMPREHENSIVE METABOLIC PANEL Lab Routine Smoldering multiple myeloma (SMM) Expected: 07/11/2024 (Approximate), Expires: 10/10/2024 [facility] Comment on above: Expected: 07/11/2024 (Approximate), Expi res: 10/10/2024 Start: 07-11-2024 End: 10-10-2024 Lactate dehydrogenase [Enzymatic activity/volume] in Serum or Plasma LACTATE DEHYDROGENASE Lab Routine Smoldering multiple myeloma (SMM) Expected: 07/11/2024 (Approximate), Expires: 10/10/2024 [facility] Comment on above: Expected: 07/11/2024 (Approximate), Expi res: 10/10/2024 Start: 07-11-2024 End: 10-10-2024 MONOCLONAL PROT UR W/INTERP MONOCLONAL PROT UR W/INTERP Lab Routine Smoldering multiple myeloma (SMM) Expected: 07/11/2024 (Approximate), Expires: 10/10/2024 [facility] Comment on above: Expected: 07/11/2024 (Approximate), Expi res: 10/10/2024 Start: 07-11-2024 End: 10-10-2024 PROTEIN ELECT RND UR W/INTERP PROTEIN ELECT RND UR W/INTERP Lab Routine Smoldering multiple myeloma (SMM) Expected: 07/11/2024 (Approximate), Expires: 10/10/2024 [facility] Work Phone: Comment on above: Expected: 07/11/2024 (Approximate), Expi res: 10/10/2024 Start: 07-11-2024 End: 10-10-2024 PROTEIN ELECTROPHORESIS SERUM W/INTERP PROTEIN ELECTROPHORESIS SERUM W/INTERP Lab Routine Smoldering multiple myeloma (SMM) Expected: 07/11/2024 (Approximate), Expires: 10/10/2024 [facility] Comment on above: Expected: 07/11/2024 (Approximate), Expi res: 10/10/2024 Start: 07-06-2024 Creatinine measurement Serum Creatinine [facility] Start: 02-15-2024 Serum Creatinine Serum Creatinine [facility] Start: 01-13-2024 End: 01-13-2024 Follow-up encounter 01/13/2024 4:00 PM EDT [facility] Hematology/Oncology [id number] [place] [address] Johanna Mandel MD [address] [place] [address] follow up Hematology/Oncology Comment on above: follow up Start: 01-13-2024 End: 04-13-2024 MONOCLONAL PROTEIN, SERUM (BLOOD) MONOCLONAL PROTEIN, SERUM (BLOOD) Lab Routine Monoclonal paraproteinemia Expected: 01/13/2024 (Approximate), Expires: 04/13/2024 [facility] Comment on above: Expected: 01/13/2024 (Approximate), Expi res: 04/13/2024 Start: 01-11-2024 End: 04-11-2024 CBC W Auto Differential panel - Blood COMPLETE BLOOD COUNT AND DIFFERENTIAL Lab Routine Monoclonal paraproteinemia Expected: 01/11/2024 (Approximate), Expires: 04/11/2024 [facility] Comment on above: Expected: 01/11/2024 (Approximate), Expi res: 04/11/2024 Start: 01-11-2024 End: 04-11-2024 Comprehensive metabolic 2000 panel - Serum or Plasma COMPREHENSIVE METABOLIC PANEL Lab Routine Monoclonal paraproteinemia Expected: 01/11/2024 (Approximate), Expires: 04/11/2024 [facility] Comment on above: Expected: 01/11/2024 (Approximate), Expi res: 04/11/2024 Start: 01-11-2024 End: 04-11-2024 Lactate dehydrogenase [Enzymatic activity/volume] in Serum or Plasma LACTATE DEHYDROGENASE Lab Routine Monoclonal paraproteinemia Expected: 01/11/2024 (Approximate), Expires: 04/11/2024 [facility] Comment on above: Expected: 01/11/2024 (Approximate), Expi res: 04/11/2024 Start: 01-11-2024 End: 04-11-2024 MONOCLONAL PROT UR W/INTERP MONOCLONAL PROT UR W/INTERP Lab Routine Monoclonal paraproteinemia Expected: 01/11/2024 (Approximate), Expires: 04/11/2024 [facility] Work Phone: Comment on above: Expected: 01/11/2024 (Approximate), Expi res: 04/11/2024 Start: 01-11-2024 End: 04-11-2024 PROTEIN ELECT RND UR W/INTERP PROTEIN ELECT RND UR W/INTERP Lab Routine Monoclonal paraproteinemia Expected: 01/11/2024 (Approximate), Expires: 04/11/2024 [facility] Comment on above: Expected: 01/11/2024 (Approximate), Expi res: 04/11/2024 Start: 01-11-2024 End: 04-11-2024 PROTEIN ELECTROPHORESIS SERUM W/INTERP PROTEIN ELECTROPHORESIS SERUM W/INTERP Lab Routine Monoclonal paraproteinemia Expected: 01/11/2024 (Approximate), Expires: 04/11/2024 [facility] Comment on above: Expected: 01/11/2024 (Approximate), Expi res: 04/11/2024 Start: 11-27-2023 Influenza vaccination [facility] Start: 11-25-2023 SERUM CREATININE SERUM CREATININE [facility] Start: 10-26-2023 SERUM CREATININE SERUM CREATININE [facility] Start: 10-13-2023 End: 10-13-2023 Follow-up encounter 10/13/2023 3:00 PM EDT [facility] Hematology/Oncology [id number] [place] [address] Johanna Mandel MD [address] [place] [address] Follow up per wq Hematology/Oncology Comment on above: Follow up per wq Start: 10-13-2023 End: 01-12-2024 MONOCLONAL PROTEIN, SERUM (BLOOD) MONOCLONAL PROTEIN, SERUM (BLOOD) Lab Routine Multiple myeloma not having achieved remission (HCC) Expected: 10/13/2023 (Approximate), Expires: 01/12/2024 [facility] Work Phone: Comment on above: Expected: 10/13/2023 (Approximate), Expi res: 01/12/2024 Start: 10-13-2023 End: 08-12-2024 PET+CT Whole body Bone W [id number] IV NM PET/CT WHOLE BODY SUBSEQUENT Radiology Routine Multiple myeloma not having achieved remission (HCC) Expected: 10/13/2023, Expires: 08/12/2024 [facility] Work Phone: Comment on above: Expected: 10/13/2023, Expires: Start: 10-12-2023 End: 01-11-2024 CBC W Auto Differential panel - Blood COMPLETE BLOOD COUNT AND DIFFERENTIAL Lab Routine Multiple myeloma not having achieved remission (HCC) Expected: 10/12/2023 (Approximate), Expires: 01/11/2024 [facility] Work Phone: Comment on above: Expected: 10/12/2023 (Approximate), Expi res: 01/11/2024 Start: 10-12-2023 End: 01-11-2024 Comprehensive metabolic 2000 panel - Serum or Plasma COMPREHENSIVE METABOLIC PANEL Lab Routine Multiple myeloma not having achieved remission (HCC) Expected: 10/12/2023 (Approximate), Expires: 01/11/2024 [facility] Work Phone: Comment on above: Expected: 10/12/2023 (Approximate), Expi res: 01/11/2024 Start: 10-12-2023 End: 01-11-2024 Lactate dehydrogenase [Enzymatic activity/volume] in Serum or Plasma LACTATE DEHYDROGENASE Lab Routine Multiple myeloma not having achieved remission (HCC) Expected: 10/12/2023 (Approximate), Expires: 01/11/2024 [facility] Work Phone: Comment on above: Expected: 10/12/2023 (Approximate), Expi res: 01/11/2024 Start: 10-12-2023 End: 01-11-2024 MONOCLONAL PROT UR W/INTERP MONOCLONAL PROT UR W/INTERP Lab Routine Multiple myeloma not having achieved remission (HCC) Expected: 10/12/2023 (Approximate), Expires: 01/11/2024 [facility] Work Phone: Comment on above: Expected: 10/12/2023 (Approximate), Expi res: 01/11/2024 Start: 10-12-2023 End: 01-11-2024 PROTEIN ELECT RND UR W/INTERP PROTEIN ELECT RND UR W/INTERP Lab Routine Multiple myeloma not having achieved remission (HCC) Expected: 10/12/2023 (Approximate), Expires: 01/11/2024 [facility] Work Phone: Comment on above: Expected: 10/12/2023 (Approximate), Expi res: 01/11/2024 Start: 10-12-2023 End: 01-11-2024 PROTEIN ELECTROPHORESIS SERUM W/INTERP PROTEIN ELECTROPHORESIS SERUM W/INTERP Lab Routine Multiple myeloma not having achieved remission (HCC) Expected: 10/12/2023 (Approximate), Expires: 01/11/2024 [facility] Work Phone: Comment on above: Expected: 10/12/2023 (Approximate), Expi res: 01/11/2024 Start: 09-24-2023 HEMOGLOBIN/HEMATOCRIT HEMOGLOBIN/HEMATOCRIT [facility] Start: 09-24-2023 SERUM CREATININE SERUM CREATININE [facility] Start: 08-28-2023 SERUM CREATININE SERUM CREATININE [facility] Start: 08-11-2023 Colonoscopy COLONOSCOPY [facility] Start: 08-11-2023 COLORECTAL CANCER SCREENING COLORECTAL CANCER SCREENING [facility] Start: 08-11-2023 Screening for malignant neoplasm of colon [facility] Start: 06-22-2023 SERUM CREATININE SERUM CREATININE [facility] Start: 05-03-2023 Procedure [facility] Start: 05-03-2023 [facility] Start: 04-25-2023 End: 07-25-2023 CBC W Auto Differential panel - Blood CBC + DIFF Lab Routine Smoldering multiple myeloma (SMM) Expected: 04/25/2023 (Approximate), Expires: 07/25/2023 [facility] Work Phone: Comment on above: Expected: 04/25/2023 (Approximate), Expi res: 07/25/2023 Start: 04-25-2023 End: 07-25-2023 Comprehensive metabolic 2000 panel - Serum or Plasma COMP METABOLIC PANEL Lab Routine Smoldering multiple myeloma (SMM) Expected: 04/25/2023 (Approximate), Expires: 07/25/2023 [facility] Work Phone: Comment on above: Expected: 04/25/2023 (Approximate), Expi res: 07/25/2023 Start: 04-25-2023 End: 07-25-2023 Lactate dehydrogenase [Enzymatic activity/volume] in Serum or Plasma LD LACTATE DEHYDRO Lab Routine Smoldering multiple myeloma (SMM) Expected: 04/25/2023 (Approximate), Expires: 07/25/2023 [facility] Work Phone: Comment on above: Expected: 04/25/2023 (Approximate), Expi res: 07/25/2023 Start: 04-25-2023 End: 07-25-2023 MONOCLONAL PROT UR W/INTERP MONOCLONAL PROT UR W/INTERP Lab Routine Smoldering multiple myeloma (SMM) Expected: 04/25/2023 (Approximate), Expires: 07/25/2023 [facility] Work Phone: Comment on above: Expected: 04/25/2023 (Approximate), Expi res: 07/25/2023 Start: 04-25-2023 End: 07-25-2023 MONOCLONAL PROTEIN, SERUM (BLOOD) MONOCLONAL PROTEIN, SERUM (BLOOD) Lab Routine Smoldering multiple myeloma (SMM) Expected: 04/25/2023 (Approximate), Expires: 07/25/2023 [facility] Work Phone: Comment on above: Expected: 04/25/2023 (Approximate), Expi res: 07/25/2023 Start: 04-25-2023 End: 07-25-2023 PROTEIN ELECT RND UR W/INTERP PROTEIN ELECT RND UR W/INTERP Lab Routine Smoldering multiple myeloma (SMM) Expected: 04/25/2023 (Approximate), Expires: 07/25/2023 [facility] Work Phone: Comment on above: Expected: 04/25/2023 (Approximate), Expi res: 07/25/2023 Start: 04-25-2023 End: 07-25-2023 PROTEIN ELECTROPHORESIS SERUM W/INTERP PROTEIN ELECTROPHORESIS SERUM W/INTERP Lab Routine Smoldering multiple myeloma (SMM) Expected: 04/25/2023 (Approximate), Expires: 07/25/2023 [facility] Work Phone: Comment on above: Expected: 04/25/2023 (Approximate), Expi res: 07/25/2023 Start: 02-25-2023 [facility] Start: 01-23-2023 End: 03-25-2023 CBC W Auto Differential panel - Blood CBC + DIFF Lab Routine Smoldering multiple myeloma (SMM) Expected: 01/23/2023 (Approximate), Expires: 03/25/2023 [facility] Work Phone: Comment on above: Expected: 01/23/2023 (Approximate), Expi res: 03/25/2023 Start: 01-23-2023 End: 03-25-2023 Comprehensive metabolic 2000 panel - Serum or Plasma COMP METABOLIC PANEL Lab Routine Smoldering multiple myeloma (SMM) Expected: 01/23/2023 (Approximate), Expires: 03/25/2023 [facility] Work Phone: Comment on above: Expected: 01/23/2023 (Approximate), Expi res: 03/25/2023 Start: 01-23-2023 End: 03-25-2023 KAPPA/VIVEROS,FREE,SER KAPPA/VIVEROS,FREE,SER Lab Routine Smoldering multiple myeloma (SMM) Expected: 01/23/2023 (Approximate), Expires: 03/25/2023 [facility] Work Phone: Comment on above: Expected: 01/23/2023 (Approximate), Expi res: 03/25/2023 Start: 01-23-2023 End: 03-25-2023 Lactate dehydrogenase [Enzymatic activity/volume] in Serum or Plasma LD LACTATE DEHYDRO Lab Routine Smoldering multiple myeloma (SMM) Expected: 01/23/2023 (Approximate), Expires: 03/25/2023 [facility] Work Phone: Comment on above: Expected: 01/23/2023 (Approximate), Expi res: 03/25/2023 Start: 01-23-2023 End: 03-25-2023 MONOCLONAL PROT UR W/INTERP MONOCLONAL PROT UR W/INTERP Lab Routine Smoldering multiple myeloma (SMM) Expected: 01/23/2023 (Approximate), Expires: 03/25/2023 [facility] Work Phone: Comment on above: Expected: 01/23/2023 (Approximate), Expi res: 03/25/2023 Start: 01-23-2023 End: 03-25-2023 MONOCLONAL PROTEIN, SERUM (BLOOD) MONOCLONAL PROTEIN, SERUM (BLOOD) Lab Routine Smoldering multiple myeloma (SMM) Expected: 01/23/2023 (Approximate), Expires: 03/25/2023 [facility] Work Phone: Comment on above: Expected: 01/23/2023 (Approximate), Expi res: 03/25/2023 Start: 01-23-2023 End: 03-25-2023 PROTEIN ELECT RND UR W/INTERP PROTEIN ELECT RND UR W/INTERP Lab Routine Smoldering multiple myeloma (SMM) Expected: 01/23/2023 (Approximate), Expires: 03/25/2023 [facility] Work Phone: Comment on above: Expected: 01/23/2023 (Approximate), Expi res: 03/25/2023 Start: 01-23-2023 End: 03-25-2023 PROTEIN ELECTROPHORESIS SERUM W/INTERP PROTEIN ELECTROPHORESIS SERUM W/INTERP Lab Routine Smoldering multiple myeloma (SMM) Expected: 01/23/2023 (Approximate), Expires: 03/25/2023 [facility] Work Phone: Comment on above: Expected: 01/23/2023 (Approximate), Expi res: 03/25/2023 Start: 01-13-2023 Procedure [facility] Start: 01-13-2023 [facility] Start: 11-26-2022 Influenza vaccination [facility] Start: 11-22-2022 End: 01-22-2023 CBC W Auto Differential panel - Blood CBC + DIFF Lab Routine Multiple myeloma, remission status unspecified (HCC) Expected: 11/22/2022 (Approximate), Expires: 01/22/2023 [facility] Work Phone: Comment on above: Expected: 11/22/2022 (Approximate), Expi res: 01/22/2023 Start: 11-22-2022 End: 01-22-2023 Comprehensive metabolic 2000 panel - Serum or Plasma COMP METABOLIC PANEL Lab Routine Multiple myeloma, remission status unspecified (HCC) Expected: 11/22/2022 (Approximate), Expires: 01/22/2023 [facility] Work Phone: Comment on above: Expected: 11/22/2022 (Approximate), Expi res: 01/22/2023 Start: 11-22-2022 End: 01-22-2023 MONOCLONAL PROTEIN, SERUM (BLOOD) MONOCLONAL PROTEIN, SERUM (BLOOD) Lab Routine Multiple myeloma, remission status unspecified (HCC) Expected: 11/22/2022 (Approximate), Expires: 01/22/2023 [facility] Work Phone: Comment on above: Expected: 11/22/2022 (Approximate), Expi res: 01/22/2023 Start: 11-22-2022 End: 01-22-2023 PROTEIN ELECTROPHORESIS SERUM W/INTERP PROTEIN ELECTROPHORESIS SERUM W/INTERP Lab Routine Multiple myeloma, remission status unspecified (HCC) Expected: 11/22/2022 (Approximate), Expires: 01/22/2023 [facility] Work Phone: Comment on above: Expected: 11/22/2022 (Approximate), Expi res: 01/22/2023 Start: 09-24-2022 End: 11-24-2022 CBC W Auto Differential panel - Blood CBC + DIFF Lab Routine Smoldering multiple myeloma Expected: 09/24/2022, Expires: 11/24/2022 [facility] Work Phone: Comment on above: Expected: 09/24/2022, Expires: Start: 09-24-2022 End: 11-24-2022 Comprehensive metabolic 2000 panel - Serum or Plasma COMP METABOLIC PANEL Lab Routine Smoldering multiple myeloma Expected: 09/24/2022, Expires: 11/24/2022 [facility] Work Phone: Comment on above: Expected: 09/24/2022, Expires: Start: 07-29-2022 End: 09-28-2022 CBC W Auto Differential panel - Blood CBC + DIFF Lab Routine Multiple myeloma not having achieved remission (HCC) Expected: 07/29/2022 (Approximate), Expires: 09/28/2022 [facility] Work Phone: Comment on above: Expected: 07/29/2022 (Approximate), Expi res: 09/28/2022 Start: 07-29-2022 End: 09-28-2022 Comprehensive metabolic 2000 panel - Serum or Plasma COMP METABOLIC PANEL Lab Routine Multiple myeloma not having achieved remission (HCC) Expected: 07/29/2022 (Approximate), Expires: 09/28/2022 [facility] Work Phone: Comment on above: Expected: 07/29/2022 (Approximate), Expi res: 09/28/2022 Start: 07-29-2022 End: 09-28-2022 KAPPA/VIVEROS,FREE,SER KAPPA/VIVEROS,FREE,SER Lab Routine Multiple myeloma not having achieved remission (HCC) Expected: 07/29/2022 (Approximate), Expires: 09/28/2022 [facility] Work Phone: Comment on above: Expected: 07/29/2022 (Approximate), Expi res: 09/28/2022 Start: 07-29-2022 End: 09-28-2022 Lactate dehydrogenase [Enzymatic activity/volume] in Serum or Plasma LD LACTATE DEHYDRO Lab Routine Multiple myeloma not having achieved remission (HCC) Expected: 07/29/2022 (Approximate), Expires: 09/28/2022 [facility] Work Phone: Comment on above: Expected: 07/29/2022 (Approximate), Expi res: 09/28/2022 Start: 07-29-2022 End: 09-28-2022 MONOCLONAL PROT 24 UR W/INTERP MONOCLONAL PROT 24 UR W/INTERP Lab Routine Multiple myeloma not having achieved remission (HCC) Expected: 07/29/2022 (Approximate), Expires: 09/28/2022 [facility] Work Phone: Comment on above: Expected: 07/29/2022 (Approximate), Expi res: 09/28/2022 Start: 07-29-2022 End: 09-28-2022 MONOCLONAL PROT UR W/INTERP MONOCLONAL PROT UR W/INTERP Lab Routine Multiple myeloma not having achieved remission (HCC) Expected: 07/29/2022 (Approximate), Expires: 09/28/2022 [facility] Work Phone: Comment on above: Expected: 07/29/2022 (Approximate), Expi res: 09/28/2022 Start: 07-29-2022 End: 09-28-2022 MONOCLONAL PROTEIN, SERUM (BLOOD) MONOCLONAL PROTEIN, SERUM (BLOOD) Lab Routine Multiple myeloma not having achieved remission (HCC) Expected: 07/29/2022 (Approximate), Expires: 09/28/2022 [facility] Work Phone: Comment on above: Expected: 07/29/2022 (Approximate), Expi res: 09/28/2022 Start: 07-29-2022 End: 09-28-2022 PROTEIN ELECT RND UR W/INTERP PROTEIN ELECT RND UR W/INTERP Lab Routine Multiple myeloma not having achieved remission (HCC) Expected: 07/29/2022 (Approximate), Expires: 09/28/2022 [facility] Work Phone: Comment on above: Expected: 07/29/2022 (Approximate), Expi res: 09/28/2022 Start: 07-29-2022 End: 09-28-2022 PROTEIN ELECTROPHORESIS SERUM W/INTERP PROTEIN ELECTROPHORESIS SERUM W/INTERP Lab Routine Multiple myeloma not having achieved remission (HCC) Expected: 07/29/2022 (Approximate), Expires: 09/28/2022 [facility] Work Phone: Comment on above: Expected: 07/29/2022 (Approximate), Expi res: 09/28/2022 Start: 07-15-2022 End: 08-07-[address] attenuation whole body NM PET/CT WHOLE BODY INITIAL Radiology Routine Multiple myeloma not having achieved remission (HCC) Expected: 07/15/2022, Expires: 08/07/2023 [facility] Work Phone: Comment on above: Expected: 07/15/2022, Expires: 4 Start: 07-08-2022 End: 09-07-2022 VASC ENDO GROWTH FACTOR [facility] Work Phone: Comment on above: Expected: 07/08/2022, Expires: 3 Start: 06-03-2022 End: 08-03-2022 Aldolase [Enzymatic activity/volume] in Serum or Plasma [facility] Work Phone: Comment on above: Expected: 06/03/2022, Expires: 3 Start: 06-03-2022 End: 08-03-2022 SAYRA BY IFA WITH REFLEX [facility] Work Phone: Comment on above: Expected: 06/03/2022, Expires: 3 Start: 06-03-2022 End: 08-03-2022 BLOOD TB SCREEN [facility] Work Phone: Comment on above: Expected: 06/03/2022, Expires: 3 Start: 06-03-2022 End: 08-03-2022 Cancer Ag 19-9 [Units/volume] in Serum or Plasma [facility] Work Phone: Comment on above: Expected: 06/03/2022, Expires: 3 Start: 06-03-2022 End: 08-03-2022 Carcinoembryonic Ag [Mass/volume] in Serum or Plasma [facility] Work Phone: Comment on above: Expected: 06/03/2022, Expires: 3 Start: 06-03-2022 End: 08-03-2022 CELIAC SCREEN WITH REFLEX [facility] Work Phone: Comment on above: Expected: 06/03/2022, Expires: 3 Start: 06-03-2022 End: 08-03-2022 Chronic hepatitis differentiation between hepatitis B and C virus panel - Serum or Plasma [facility] Work Phone: Comment on above: Expected: 06/03/2022, Expires: 3 Start: 06-03-2022 End: 08-03-2022 Extractable nuclear Ab panel - Serum [facility] Work Phone: Comment on above: Expected: 06/03/2022, Expires: 3 Start: 06-03-2022 End: 08-03-2022 Ferritin [Mass/volume] in Serum or Plasma [facility] Work Phone: Comment on above: Expected: 06/03/2022, Expires: 3 Start: 06-03-2022 End: 08-03-2022 HIV 1+2 Ab [Presence] in Serum or Plasma by Immunoassay [facility] Work Phone: Comment on above: Expected: 06/03/2022, Expires: 3 Start: 06-03-2022 End: 08-03-2022 IgG subclass 4 [Mass/volume] in Serum IGG SUBCLASS 4 ONLY Lab Routine 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 Anasarca Expected: 06/03/2022, Expires: 08/03/2022 [facility] Work Phone: Comment on above: Expected: 06/03/2022, Expires: 3 Start: 06-03-2022 End: 08-03-2022 KAPPA/VIVEROS,FREE,SER [facility] Work Phone: Comment on above: Expected: 06/03/2022, Expires: 3 Start: 06-03-2022 End: 08-03-2022 Myoglobin [Mass/volume] in Urine [facility] Work Phone: Comment on above: Expected: 06/03/2022, Expires: 3 Start: 06-03-2022 End: 08-03-2022 Niacin [Mass/volume] in Serum or Plasma [facility] Work Phone: Comment on above: Expected: 06/03/2022, Expires: 3 Start: 06-03-2022 End: 08-03-2022 POLYMYOSITIS AND DERMATOMYOSITIS PANEL [facility] Work Phone: Comment on above: Expected: 06/03/2022, Expires: 3 Start: 06-03-2022 End: 08-03-2022 PROT ELECT SERUM WITH CHANO AND INTERP [facility] Work Phone: Comment on above: Expected: 06/03/2022, Expires: 3 Start: 06-03-2022 End: 08-03-2022 PROTEIN ELECT RND UR W/INTERP PROTEIN ELECT RND UR W/INTERP Lab Routine Anasarca Abnormal serum free light chain ratio (low) Expected: 06/03/2022, Expires: 08/03/2022 [facility] Work Phone: Comment on above: Expected: 06/03/2022, Expires: 3 Start: 06-03-2022 End: 08-03-2022 Protein/Creatinine [Mass Ratio] in Urine [facility] Work Phone: Comment on above: Expected: 06/03/2022, Expires: 3 Start: 06-03-2022 End: 08-03-2022 Thyroglobulin Ab [Units/volume] in Serum or Plasma [facility] Work Phone: Comment on above: Expected: 06/03/2022, Expires: 3 Start: 06-03-2022 End: 08-03-2022 THYROID PEROXIDASE ANTIBODY BLOOD [facility] Work Phone: Comment on above: Expected: 06/03/2022, Expires: 3 Start: 06-03-2022 End: 08-03-2022 VITAMIN B1 (THIAMINE), WHOLE BLOOD [facility] Work Phone: Comment on above: Expected: 06/03/2022, Expires: 3 Start: 06-03-2022 End: 08-03-2022 VITAMIN K [facility] Work Phone: Comment on above: Expected: 06/03/2022, Expires: 3 Start: 05-20-2022 Immunoglobulin measurement [facility] Start: 05-20-2022 Serum immunofixation [facility] Start: 05-20-2022 Serum protein electrophoresis [facility] Start: 05-17-2022 Procedure [facility] Start: 05-12-2022 Antinuclear antibodies sayra ANTINUCLEAR ANTIBODIES [facility] Start: 05-10-2022 [facility] Start: 03-20-2022 Patient discharge [facility] Start: 03-19-2022 [facility] Start: 03-18-2022 Consultation [facility] Start: 03-16-2022 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 [facility] Start: 03-15-2022 Following clinical pathway protocol [facility] Start: 03-15-2022 Ambulation without limitation [facility] Start: 03-15-2022 Assessment of risk of venous thromboembolism [facility] Start: 03-15-2022 Insertion of catheter into peripheral vein [facility] Start: 03-15-2022 Providing care according to standard [facility] Start: 03-15-2022 Referral to service [facility] Start: 03-15-2022 [facility] Start: 03-15-2022 Verification routine [facility] Work Phone: Start: 03-15-2022 Admission procedure [facility] Start: 03-13-2022 Protein electrop fxj&abdiaziz oth flus concentrati PROTEIN E-PHORESIS/URINE/CSF [facility] Start: 03-13-2022 Protein electrophoresis panel - Urine [facility] Work Phone: Start: 03-11-2022 Myoglobin [Mass/volume] in Urine [facility] Work Phone: Start: 03-11-2022 Urine protein electrophoresis [facility] Work Phone: Start: 03-11-2022 [facility] Work Phone: Start: 03-11-2022 Patient referral [facility] Work Phone: Start: 12-17-2021 Acute hepatitis 2000 panel - Serum [facility] Work Phone: Start: 12-17-2021 Aldolase [Enzymatic activity/volume] in Serum or Plasma [facility] Work Phone: Start: 12-17-2021 Angiotensin converting enzyme [Enzymatic activity/volume] in Serum or Plasma [facility] Work Phone: Start: 12-17-2021 Smooth muscle Ab [Presence] in Serum [facility] Work Phone: Start: 12-17-2021 [facility] Work Phone: Start: 11-26-2021 Influenza vaccination INFLUENZA (#1) [facility] Start: 10-01-2021 Screening for malignant neoplasm of colon Cologuard (FIT-DNA) [facility] Start: 04-09-2021 Sars-cov-2 detection by dna/rna SARS-COV-2 COVID-19 AMP PRB [facility] Work Phone: Start: 2015 Pneumococcal Vaccine: 50+ (1 of 1 - PCV) Pneumococcal Vaccine: 50+ (1 of 1 - PCV) [facility] Start: 2015 SHINGRIX VACCINE (1 of 2) SHINGRIX VACCINE (1 of 2) [facility] Start: 2010 COLOGUARD (FIT-DNA) COLOGUARD (FIT-DNA) [facility] Start: 2010 Colonoscopy COLONOSCOPY [facility] Start: 2010 COLORECTAL CANCER SCREENING COLORECTAL CANCER SCREENING [facility] Start: [address] COLONOGRAPHY [facility] Start: 2010 DIABETES SCREEN DIABETES SCREEN [facility] Start: 2010 FECAL OCCULT BLOOD FECAL OCCULT BLOOD [facility] Start: 2010 Lipid 1996 panel - Serum or Plasma Lipid Screening [facility] Start: 2010 Lipid panel Lipid Screening [facility] Start: 2010 LIPID SCREEN LIPID SCREEN [facility] Start: 2010 Screening for malignant neoplasm of colon [facility] Start: 2010 SIGMOIDOSCOPY SIGMOIDOSCOPY [facility] Start: 2005 Mammography [facility] Start: 2005 Screening for malignant neoplasm of breast Mammogram Screening [facility] Start: 1995 HPV TESTING HPV TESTING [facility] Start: 1995 Screening for malignant neoplasm of cervix HPV Testing [facility] Start: 1986 PAP TESTING PAP TESTING [facility] Start: 1986 Screening for malignant neoplasm of cervix [facility] Start: 02-05-1984 Hepatitis B Vaccine (1 of 3 - 19+ 3-dose series) Hepatitis B Vaccine (1 of 3 - 19+ 3-dose series) [facility] Start: 02-05-1984 Pneumococcal Vaccine: 50+ (1 of 2 - PCV) Pneumococcal Vaccine: 50+ (1 of 2 - PCV) [facility] Start: 02-05-1984 SHINGRIX VACCINE (1 of 2) SHINGRIX VACCINE (1 of 2) [facility] Start: 02-05-1984 Urine microalbumin profile [facility] Start: 1983 ANNUAL PCP TEAM CHRONIC DISEASE VISIT ANNUAL PCP TEAM CHRONIC DISEASE VISIT [facility] Start: 1983 HEMOGLOBIN/HEMATOCRIT HEMOGLOBIN/HEMATOCRIT [facility] Start: 1983 HEPATITIS C SCREENING HEPATITIS C SCREENING [facility] Start: 1983 HIV SCREENING HIV SCREENING [facility] Start: 1983 SERUM CREATININE SERUM CREATININE [facility] Start: 1971 PNEUMOCOCCAL (1 - PCV) PNEUMOCOCCAL (1 - PCV) [facility] Start: 1971 [facility] Start: 1970 COVID-19 VACCINE (#1) COVID-19 VACCINE (#1) [facility] Start: 1965 COVID-19 VACCINE (#1) COVID-19 VACCINE (#1) [facility] Start: 1965 HEPATITIS B (1 of 3 - 3-dose series) HEPATITIS B (1 of 3 - 3-dose series) [facility] Start: 1965 Hepatitis B Vaccine (1 of 3 - 3-dose series) Hepatitis B Vaccine (1 of 3 - 3-dose series) [facility] 24 hour urine measurement [facility] Work Phone: Alanine aminotransfe rase [Enzymatic activity/volume] in Serum or Plasma [facility] Work Phone: Albumin [Mass/volume ] in Serum or Plasma [facility] Work Phone: Albumin [Mass/volume ] in Urine [facility] Work Phone: Albumin [Moles/volum e] in Serum or Plasma [facility] Albumin/Globulin ratio [facility] Alkaline phosphatase - bone isoenzyme measurement [facility] Alkaline phosphatase - bone isoenzyme measurement [facility] Alkaline phosphatase [Enzymatic activity/volume] in Serum or Plasma [facility] Work Phone: Alkaline phosphatase [Enzymatic activity/volume] in Serum or Plasma [facility] Alkaline phosphatase [Enzymatic activity/volume] in Serum or Plasma [facility] Alkaline phosphatase liver isoenzyme measurement [facility] Alkaline phosphatase liver isoenzyme measurement [facility] ALPHA [address] ALPHA [address] Lab Routine 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 Anasarca Ordered: 06/03/2022 [facility] Work Phone: Comment on above: Ordered: 06/03/2022 Anion gap measurement [facility] Work Phone: Aspartate aminotransferase [Enzymatic activity/volume] in Serum or Plasma [facility] Work Phone: Beef IgE Ab [Units/volume] in Serum [facility] Work Phone: Bilirubin, total measurement [facility] Work Phone: BONE MARROW ANALYSIS BONE MARROW ANALYSIS Lab Routine Elevated serum immunoglobulin free light chains Iron deficiency anemia, unspecified iron deficiency anemia type 07/08/2022 1:18 PM EDT [facility] Work Phone: BONE MARROW ANALYSIS BONE MARROW ANALYSIS Lab Routine Neoplasm of unspecified behavior of bone, soft tissue, and skin 08/27/2022 10:28 AM T [facility] Work Phone: BONE MARROW CHROMOSO ME ANAL BONE MARROW CHROMOSOME ANAL Lab Routine Elevated serum immunoglobulin free light chains Iron deficiency anemia, unspecified iron deficiency anemia type 07/08/2022 1:14 PM EDT [facility] Work Phone: BONE MARROW CHROMOSO ME ANAL BONE MARROW CHROMOSOME ANAL Lab Routine Neoplasm of unspecified behavior of bone, soft tissue, and skin 08/27/2022 10:28 AM [facility] Work Phone: BUN/Creatinine ratio [facility] Work Phone: Calcium [Mass/volume ] in Serum or Plasma [facility] Work Phone: Carbon dioxide, tota l [Moles/volume] in Serum or Plasma [facility] Work Phone: CBC W Auto Different ial panel - Blood [facility] CBC W Auto Different ial panel - Blood CBC + DIFF Lab Routine Neoplasm of unspecified behavior of bone, soft tissue, and skin Ordered: 08/27/2022 [facility] Work Phone: Comment on above: Ordered: 08/27/2022 Chloride [Moles/volu me] in Serum or Plasma [facility] Work Phone: Chocolate IgE Ab [Units/volume] in Serum [facility] Work Phone: End: 06-12-2023 COLONOSCOPY DIAGNOSTIC COLONOSCOPY DIAGNOSTIC Endoscopy Routine Blood in stool Elevated fecal calprotectin 1 Occurrences starting 06/11/2022 until 06/12/2023 [facility] Work Phone: Comment on above: 1 Occurrences starting 06/11/2022 until 06/12/2023 Copper [Moles/volume ] in Serum or Plasma [facility] Copper [Moles/volume ] in Serum or Plasma [facility] Copper [Moles/volume ] in Serum or Plasma [facility] [place] IgE Ab [Units/volume] in Serum [facility] Work Phone: Cow milk IgE Ab [Units/volume] in Serum [facility] Work Phone: Creatinine [Moles/vo lume] in Serum or Plasma [facility] Work Phone: DNA EXTRACTION BONE MARROW (BUFFY COAT) DNA EXTRACTION BONE MARROW (BUFFY COAT) Lab Routine Elevated serum immunoglobulin free light chains Iron deficiency anemia, unspecified iron deficiency anemia type 07/08/2022 1:14 PM EDT [facility] Work Phone: DNA EXTRACTION BONE MARROW (BUFFY COAT) DNA EXTRACTION BONE MARROW (BUFFY COAT) Lab Routine Neoplasm of unspecified behavior of bone, soft tissue, and skin 08/27/2022 10:28 AM EDT [facility] Work Phone: End: 06-12-2023 EGD DIAGNOSTIC EGD DIAGNOSTIC Endoscopy Routine Iron deficiency anemia, unspecified iron deficiency anemia type 1 Occurrences starting 06/11/2022 until 06/12/2023 [facility] Work Phone: Comment on above: 1 Occurrences starting 06/11/2022 until 06/12/2023 End: 07-13-2025 EGD DIAGNOSTIC EGD DIAGNOSTIC Endoscopy Routine Blood in stool 1 Occurrences starting 07/13/2024 until 07/13/2025 [facility] Work Phone: Comment on above: 1 Occurrences starting 07/13/2024 until 07/13/2025 Electrophoresis: [id number] [facility] Electrophoresis: beta-globulin [facility] Work Phone: Electrophoresis: mitchel ma globulin [facility] Work Phone: Electrophoresis: [facility] FECAL LACTOFERRIN/LEUKOCYTES FECAL LACTOFERRIN/LEUKOCYTES Lab Routine 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 Anasarca Ordered: 06/03/2022 [facility] Work Phone: Comment on above: Ordered: 06/03/2022 Ferritin [Mass/volum e] in Serum or Plasma [facility] FISH FOR PLASMA CELL MYELOMA FISH FOR PLASMA CELL MYELOMA Lab Routine Elevated serum immunoglobulin free light chains Iron deficiency anemia, unspecified iron deficiency anemia type 07/08/2022 1:14 PM [facility] Work Phone: FISH FOR PLASMA CELL MYELOMA FISH FOR PLASMA CELL MYELOMA Lab Routine Neoplasm of unspecified behavior of bone, soft tissue, and skin 08/27/2022 10:28 AM [facility] Work Phone: [facility] Work Phone: FLOW CYTOMETRY BONE MARROW REFLEX FLOW CYTOMETRY BONE MARROW REFLEX Lab Routine Elevated serum immunoglobulin free light chains Iron deficiency anemia, unspecified iron deficiency anemia type 07/08/2022 1:14 PM [facility] Work Phone: FLOW CYTOMETRY BONE MARROW REFLEX FLOW CYTOMETRY BONE MARROW REFLEX Lab Routine Neoplasm of unspecified behavior of bone, soft tissue, and skin 08/27/2022 10:28 AM [facility] Work Phone: Fluid sample globuli n level [facility] Work Phone: Globulin measurement [facility] Glucose [Mass/volume ] in Serum or Plasma [facility] Work Phone: IgA [Mass/volume] in Serum or Plasma [facility] IgG [Mass/volume] in Serum or Plasma [facility] IgM [Mass/volume] in Serum or Plasma [facility] Insulin-like growth factor [Moles/volume] in Serum or Plasma [facility] Intestinal alkaline phosphatase measurement [facility] Intestinal alkaline phosphatase measurement [facility] Iron [Mass/mass] in Unspecified specimen [facility] Iron saturation [Mas s Fraction] in Serum or Plasma [facility] [place]/lambda light c allyson ratio [facility] Work Phone: [place]/lambda light c allyson ratio [facility] Lactate dehydrogenas e [Enzymatic activity/volume] in Serum or Plasma [facility] Lactate dehydrogenas e isoenzymes measurement [facility] Lactate dehydrogenas e measurement [facility] Lambda light chains. free [Mass/volume] in Serum or Plasma [facility] Work Phone: Lambda light chains. free [Mass/volume] in Serum or Plasma [facility] Measurement of renal function [facility] Work Phone: Myelin basic protein [Mass/volume] in Cerebral spinal fluid [facility] Work Phone: Myelin basic protein [Mass/volume] in Cerebral spinal fluid [facility] Myoglobin [Mass/volu me] in Urine [facility] Work Phone: Patient Education [facility] Work Phone: Patient referral [facility] Work Phone: Peanut IgE Ab [Units/volume] in Serum [facility] Work Phone: PET+CT Whole body [place] ne W [id number] IV NM PET/CT WHOLE BODY SUBSEQUENT Radiology Routine Multiple myeloma not having achieved remission (HCC) 10/03/2023 10:54 AM EDT [facility] Work Phone: Pork IgE Ab [Units/volume] in Serum [facility] Work Phone: Potassium [Moles/vol ume] in Serum or Plasma [facility] Work Phone: Protein [Mass/volume ] in Urine [facility] Work Phone: Protein electrophore sis panel - Serum or Plasma [facility] Protein measurement, urine, quantitative 24 hour [facility] Work Phone: Sodium [Moles/volume ] in Serum or Plasma [facility] Work Phone: Soybean IgE Ab [Units/volume] in Serum [facility] Work Phone: Thyroglobulin antibo dy measurement [facility] Thyroglobulin antibo dy measurement [facility] Thyroid stimulating immunoglobulins actual/normal in Serum [facility] Thyroperoxidase Ab [Units/volume] in Serum or Plasma [facility] Thyroperoxidase Ab [Units/volume] in Serum or Plasma [facility] Tissue Pathology bio psy report [facility] Work Phone: Comment on above: Release Upon Ordering for 1 Occurrences starting 07/24/2024, 1 completed Total iron binding capacity measurement [facility] Total protein measurement [facility] Work Phone: Triiodothyronine (T3).reverse [Mass/volume] in Serum or Plasma [facility] Triiodothyronine (T3).reverse [Mass/volume] in Serum or Plasma [facility] Triiodothyronine (T3).reverse [Mass/volume] in Serum or Plasma [facility] Triiodothyronine res in uptake (T3RU) in Serum or Plasma [facility] Ultrasound elastography [facility] Work Phone: Urea nitrogen [Mass/volume] in Serum or Plasma [facility] Work Phone: Urine kappa light ch ain measurement [facility] Work Phone: Urine kappa light ch ain measurement [facility] Wheat IgE Ab [Units/volume] in Serum [facility] Work Phone: Whole Egg IgE Ab [Units/volume] in Serum [facility] Work Phone: [facility] Payers Date Payer Category Payer Self-pay [id number] 2022 Medicaid [id number] 2015 Unknown [id number] 2015 Unknown [id number] Unknown [id number] 2.16.8 [id number] Unknown [id number] 2.16.8 [id number] Unknown [id number] 2.16.8 [id number] Unknown [id number] 2.16.8 [id number] Unknown [id number] 2.16.8 [id number] Unknown [id number] 2.16.8 [id number] Unknown [id number] 2.16.8 [id number] Unknown [id number] 2.16.8 [id number] Unknown [id number] 2.16.8 [id number] Unknown [id number] 2.16.8 [id number] Unknown [id number] 2.16.8 [id number] Unknown [id number] 2.16.8 [id number] Unknown [id number] 2.16.8 [id number] Unknown [id number] 2.16.8 [id number] Unknown [id number] 2.16.8 [id number] Unknown [id number] 2.16.8 [id number] Unknown [id number] 2.16.8 [id number] Unknown [id number] 2.16.8 [id number] Unknown [id number] 2.16.8 [id number] Social History Date Type Detail Facility [facility] Work Phone: Start: 06-15-2021 End: 01-11-2023 Tobacco smoking status LAIS Unknown if ever smoked [facility] Start: 1965 Sex Assigned At Female [facility] Start: 02-10-2012 End: 01-11-2023 Tobacco smoking status NHIS Never smoked tobacco [facility] Work Phone: Start: 02-10-2012 Tobacco use and exposure Smokeless tobacco non-user [facility] Work Phone: Start: 06-03-2022 End: 07-27-2024 Alcohol intake Current non-drinker of alcohol (finding) [facility] Start: 1965 Sex Assigned At Not on file [facility] Start: 08-05-2022 End: 10-25-2022 History of Social function [facility] Start: 08-05-2022 End: 10-25-2022 Tobacco use panel [facility] Start: 02-27-2012 Adult Depression Screening Assessment 2 [facility] Start: 04-18-2022 Sexual orientation Heterosexual (faheem jasvir) [facility] Start: 06-08-2024 End: 07-02-2024 Sex Female (suyapa) [facility] Goals Date Patient Goal Desired Activity /State Functional Status Date Assessment Result Facility 03-20-2022 Functional status Up ad jorge alberto [facility] Work Phone: 03-16-2022 Functional status Ambulates [facility] Work Phone: 05-20-2021 Functional status Ambulates [facility] Work Phone: 05-20-2021 Functional status Assistive Devices None [facility] Work Phone: 05-20-2021 Functional status Tolerates Activity Well [facility] Work Phone: Mental Status Date Assessment Result Facility 05-25-2022 Cognitive function Awake;Alert;A ppropriate;Follow s Commands [facility] Work Phone: 05-10-2022 Cognitive function Level Of Cons ciousness Awake;Alert;Appropriate;Follow s Commands [facility] Work Phone: 03-20-2022 Cognitive function Voice/Name [facility] [place] Work Phone: 03-19-2022 Cognitive function Appropriate;Cooperativ e [facility] Work Phone: 03-16-2022 Cognitive function Voice/Name [facility] [place] Work Phone: 05-20-2021 Cognitive function Voice/Name [facility] [place] Work Phone: Clinical Notes 05-10-2022 to 01-02-2025 Johanna Mandel MD - 09/26/2024 3:06 PM Johanna Villarreal MD - 08/24/2024 4:14 PM Pippa Blancas APRN.CNP - 08/01/2024 3:00 PM Jenna Armenta MD - 07/24/2024 9:00 AM EDT Note Date & Type Note Facility 01-02-2025 Note HNO ID: [id number] Author: HILARIA COX MD Service: ? Author Type: Physician Type: Progress Notes Filed: 01/02/2025 14:33 Note Text: DISTANCE HEALTH VISIT This Team Access Model visit is a virtual encounter ([place] audio/video, Zoom). It required patient-provider interaction for the medical decision making as documented below. I have communicated my name and active licensure. The patient's identity and physical location were verified at the time of this visit. Either the patient or their legal sales and merchandising representative has been informed of the risks and benefits of -- and alternatives to -- treatment through a remote evaluation and consents to proceed with the evaluation remotely. Haley Glez is a 59 year old female seen for follow up of hypothyroidism. PMH of anxiety, depression, IBS and multiple myeloma. She was on [place] [id number]. Patient then did not need thyroid medication. She was hospitalized in 2021 with leg swelling and thyroid levels were off. She was started on levothyroxine. She was diagnosed with multiple myeloma 2022. Patient was maintained on levothyroxine 50 mc tablet 5 days a week and 2 tablets on Mondays and Fridays- this is equivalent to a daily LT4 dose of 64 mcg. Patient was treated with levothyroxine and switched to [place] for low T3 06/2024. She is maintained on 30 mg 5 days a week and 60 mg 2 days a week (Tuesday and Tuesday). TSH 2.05--> 1.53 12/2024 Free T4 0.9 ng/dL 07/2024 Free T3 1.4-->1.7 pg/mL 12/2024 HISTORY REVIEWED (electronic chart updated): PAST MEDICAL HISTORY Diagnosis Date Anxiety state, unspecified Depressive disorder, not elsewhere classified IBS (irritable bowel syndrome) Multiple chemical sensitivity syndrome Small intestinal bacterial overgrowth (SIBO) Current Outpatient Medications on File Prior to Visit Medication Sig OTC PRODUCT Food enzymes 3x daily acetylcysteine (ACET-CYS) Take 1,000 mg by mouth once daily. cholecalciferol, vitamin D3, (D3-2000 ORAL) Take 2,000 mg by mouth once daily. Lactobacillus acidophilus (PROBIOTIC) 10 billion cell cap Take 133 capsules by mouth daily at bedtime. No current facility-administered medications on file prior to visit. ALLERGIES Allergen Reactions Amoxicillin Other: See Comments Codeine Other: See Comments Flavoring Agent (Bu* Other: See Comments Lactose Other: See Comments Peppermint Flavor Other: See Comments REVIEW OF SYSTEMS Constitutional: Negative for: Fever, Night sweats and Recent weight change Skin: Negative for: Rash ENT: Negative for: Hearing loss Eyes: Positive for: Visual disturbance Cardiovascul ar: Leg swellingChest pain Respiratory: Negative for: Cough and Difficulty breathing Gastrointestinal: nausea and diarrhea Musculoskeletal: Positive for: Arthralgias and Myalgias Neurological: Negative for: Headaches and Dizziness Genitourinary: Negative for: Difficulty urinating Answers submitted by the patient for this visit: Core Review of Systems (Submitted on 12/27/2024) Nasal Congestion: Yes Irregular heartbeat: No Awaken at Night More Than Once to Urinate?: Yes Leg or Foot Discomfort at Night?: No Memory Loss: No Seizures: No PHYSICAL EXAMINATION: VIDEO EXAM: (if done, performed via video enabled technology) GENERAL: alert and appropriate, in no distress, well-hydrated, well nourished, and happy, smiling, interactive NECK: no obvious neck swelling or mass RESPIRATORY: breathing non-labored CHEST: equal chest rise with normal respiratory effort LABS: Latest Ref Rng 06/03/2022 06/21/2022 08/16/2024 12/26/2024 TSH 0.270 - 4.200 mIU/L 5.930 (H) 4.860 (H) 2.050 1.530 Free T3 2.3 - 4.1 pg/mL 1.8 (L) 1.4 (L) 1.7 (L) Free T4 0.9 - 1.7 ng/dL 0.9 Patient reports thyroid function tests at [facility] 05/2024 as follows: TSH of 1.870 (0.3-4.2) normal Free T4 1.4 ng/dL (0.76-1.46) normal Total T4 7.1 (4.8-13.9) normal Free T3 1.4 pg/mL (2.18-3.98) LOW Total T3 0.36 (0.80-2.0) LOW TPO antibody 31 (0-34) normal Reverse T3 21.6 (9.2-24.1) normal T3 uptake 29% (24-39) normal Cortisol 22.7 (elevated) ASSESSMENT: 59 yo female with: (E03.9) Acquired hypothyroidism TSH normal, free T3 low on [place]. PLAN: Increase [place] dose: take 30 mg 4 days a week and 60 mg 3 days a week. Obtain TSH, free T4 and free T3 in 6 weeks. Follow up in clinic in 6 months with thyroid function tests prior to visit. Hilaria Cox MD [facility] 12-28-2024 Note HNO ID: [id number] Author: JOHANNA MANDEL MD Service: ? Author Type: Physician Type: Progress Notes Filed: 12/31/2024 15:23 Note Text: [facility] (Elements copied from Shauna White's note dated 06/21/22, have been reviewed and updated where appropriate, and all reflect current assessment and medical decision making during today's encounter, December 28, 2024) Reason for visit: Consult, referred by Shauna White for possible monoclonal gammopathy of renal signifiance. My recommendations to the consult requesting physician are communicated via the shared electronic medical record or US mail. This visit was conducted by Zoom. 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 Baseline assessment on initial diagnosis date 2022 Cancer Staging No matching staging information was found for the patient. No matching staging information was found for the patient. 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 and may represent an unusual presentation of polyclonal immunoglobulins, but cannot rule out the presence of a low level M protein 06/03/2022 Related Organ or Tissue Involvement (CRAB) or other Myeloma Defining Event (MDE): Anemia (HgB < 10g/dL or 2g/dL below LLN), actual value: 9.1 g/dL Antecedent plasma cell dyscrasia: No Myeloma FISH panel: Cytogenetics: LDH: 156 U/L (100 - 220) ISS stage: Albumin: 2.9 g/dL, B2M: 2.7 mg/L [place] Stage: Monoclonal proteins at diagnosis: Serum M-spike: 0.00 gm/dL, kappa serum free light chains: 35.6 mg/L, lambda serum free light chains: 397.8 mg/L, Urinary m-protein: an atypical restricted band is present in the lambda region. The presence of free lambda light chains in the urine is consistent with a lambda-containing monoclonal gammopathy, Urinary protein excretion: 0.07 g/24hrs, Urinary albumin: 31.43 %, and Urinary m-protein present Not measurable Total immunoglobulins at diagnosis: IgG 244 mg/dL, IgA 31 mg/dL, IgM 16 mg/dL Bone marrow plasma cell infiltration: % Systemic treatment and disease course -No prior systemic therapy Local treatments (radiation, surgery, kyphoplasty) -No prior local therapy History of prior work up illness (Dr. 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 Patient apparently had been referred to nephrology for anasarca and to evaluate for nephrotic syndrome. She had been hospitalized in February 2022 and seen by hematology for anemia and nephrology for hypoalbuminemia and anasarca. Her albumin was low at 2.5 and Hgb 8.8 in February 2022. A 24 hour urine protein showed just 55 mg of protein and no M spike on UIFE. Patient had been trying to increase her protein intake and was on a fluid restricted diet. She continued to have significant edema. She was intolerant to Bumex as it caused dizziness and slurred speech. She was discharged on Lasix 20 mg daily. She saw GI for elevated liver function tests -- viral hepatitis studies were unremarkable. Apparently a colonoscopy had been attempted (patient says on three occasions), with poor prep. She was told she had problems with malabsorption. An abdominal ultrasound on 12/29/2021 showed normal liver and no ascites. CT of the abdomen from 03/18/2022 was unremarkable. CK was elevated at 700 but with elevated myoglobin at 86 (normal 25-58). Urine free light chains apparently showed a Bence Gallegos protein, but on repeat was negative when evaluated by hematology. On 05/10/2022, Hgb 9.8 with creatinine 0.96 (up from baseline a few months prior ~0.5), BUN 44, potassium 4.7 while on Lasix 20 mg daily. CRP and ESR may have been mildly elevated in the past. Patient complained of generalized weakness, fatigue, not being able to do her daily chores at home. Exam was notable for 4+ pitting edema in the legs, a resting tremor. Patient's elevated creatinine and BUN were explained by diuretic therapy. Some immunologic serologies were ordered given concern for myositis with elevated CK. Patient was encouraged to continue Lasix. She was also encouraged to follow-up with hematology regarding anemia. This visit, patient confirms the above history. She elaborates that her symptoms began about a year ago, when she went to the ED and was told her serum protein was low. She says the swelling is mostly in her legs, but she also has noticed some swelling along the left breast and left upper extremity. She has been increasing her protein intake - consuming 90 mg protein through her diet and an additional 45 g through supplemental protein shakes. She tells me no significant proteinuria has been identified in her urine. Regarding a possible protein losing enteropathy, she endorses a history of small intestinal bacterial overgrowth (SIBO) characterized by bloating and constipation; she denies holly (more content not included)... [facility] 09-26-2024 Note HNO ID: [id number] Author: JOHANNA MANDEL MD Service: ? Author Type: Physician Type: Progress Notes Filed: 09/26/2024 15:36 Note Text: [facility] (Elements copied from Shauna White's note dated 06/21/22, have been reviewed and updated where appropriate, and all reflect current assessment and medical decision making during today's encounter, September 26, 2024) Reason for visit: Consult, referred by Shauna White for possible monoclonal gammopathy of renal signifiance. My recommendations to the consult requesting physician are communicated via the shared electronic medical record or US mail. This visit was conducted by Master. 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 Baseline assessment on initial diagnosis date 2022 Cancer Staging No matching staging information was found for the patient. No matching staging information was found for the patient. 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 and may represent an unusual presentation of polyclonal immunoglobulins, but cannot rule out the presence of a low level M protein 06/03/2022 Related Organ or Tissue Involvement (CRAB) or other Myeloma Defining Event (MDE): Anemia (HgB < 10g/dL or 2g/dL below LLN), actual value: 9.1 g/dL Antecedent plasma cell dyscrasia: No Myeloma FISH panel: Cytogenetics: LDH: 156 U/L (100 - 220) ISS stage: Albumin: 2.9 g/dL, B2M: 2.7 mg/L [place] Stage: Monoclonal proteins at diagnosis: Serum M-spike: 0.00 gm/dL, kappa serum free light chains: 35.6 mg/L, lambda serum free light chains: 397.8 mg/L, Urinary m-protein: an atypical restricted band is present in the lambda region. The presence of free lambda light chains in the urine is consistent with a lambda-containing monoclonal gammopathy, Urinary protein excretion: 0.07 g/24hrs, Urinary albumin: 31.43 %, and Urinary m-protein present Not measurable Total immunoglobulins at diagnosis: IgG 244 mg/dL, IgA 31 mg/dL, IgM 16 mg/dL Bone marrow plasma cell infiltration: % Systemic treatment and disease course -No prior systemic therapy Local treatments (radiation, surgery, kyphoplasty) -No prior local therapy History of prior work up illness (Dr. 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 Patient apparently had been referred to nephrology for anasarca and to evaluate for nephrotic syndrome. She had been hospitalized in February 2022 and seen by hematology for anemia and nephrology for hypoalbuminemia and anasarca. Her albumin was low at 2.5 and Hgb 8.8 in February 2022. A 24 hour urine protein showed just 55 mg of protein and no M spike on UIFE. Patient had been trying to increase her protein intake and was on a fluid restricted diet. She continued to have significant edema. She was intolerant to Bumex as it caused dizziness and slurred speech. She was discharged on Lasix 20 mg daily. She saw GI for elevated liver function tests -- viral hepatitis studies were unremarkable. Apparently a colonoscopy had been attempted (patient says on three occasions), with poor prep. She was told she had problems with malabsorption. An abdominal ultrasound on 12/29/2021 showed normal liver and no ascites. CT of the abdomen from 03/18/2022 was unremarkable. CK was elevated at 700 but with elevated myoglobin at 86 (normal 25-58). Urine free light chains apparently showed a Bence Gallegos protein, but on repeat was negative when evaluated by hematology. On 05/10/2022, Hgb 9.8 with creatinine 0.96 (up from baseline a few months prior ~0.5), BUN 44, potassium 4.7 while on Lasix 20 mg daily. CRP and ESR may have been mildly elevated in the past. Patient complained of generalized weakness, fatigue, not being able to do her daily chores at home. Exam was notable for 4+ pitting edema in the legs, a resting tremor. Patient's elevated creatinine and BUN were explained by diuretic therapy. Some immunologic serologies were ordered given concern for myositis with elevated CK. Patient was encouraged to continue Lasix. She was also encouraged to follow-up with hematology regarding anemia. This visit, patient confirms the above history. She elaborates that her symptoms began about a year ago, when she went to the ED and was told her serum protein was low. She says the swelling is mostly in her legs, but she also has noticed some swelling along the left breast and left upper extremity. She has been increasing her protein intake - consuming 90 mg protein through her diet and an additional 45 g through supplemental protein shakes. She tells me no significant proteinuria has been identified in her urine. Regarding a possible protein losing enteropathy, she endorses a history of small intestinal bacterial overgrowth (SIBO) characterized by bloating and constipation; she denies diarrh (more content not included)... [facility] 09-26-2024 History of Present illness Narrative Images from the original note were not included. [facility] (Elements copied from Shauna White's note dated 06/21/22, have been reviewed and updated where appropriate, and all reflect current assessment and medical decision making during today's encounter, September 26, 2024) Reason for visit: Consult, referred by Shauna White for possible monoclonal gammopathy of renal signifiance. My recommendations to the consult requesting physician are communicated via the shared electronic medical record or [place] mail. This visit was conducted by Master. 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 Baseline assessment on initial diagnosis date 2022 Cancer Staging No matching staging information was found for the patient. No matching staging information was found for the patient. 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 and may represent an unusual presentation of polyclonal immunoglobulins, but cannot rule out the presence of a low level M protein 06/03/2022 Related Organ or Tissue Involvement (CRAB) or other Myeloma Defining Event (MDE): Anemia (HgB < 10g/dL or 2g/dL below LLN), actual value: 9.1 g/dL Antecedent plasma cell dyscrasia: No Myeloma FISH panel: Cytogenetics: LDH: 156 U/L (100 - 220) ISS stage: Albumin: 2.9 g/dL, B2M: 2.7 mg/L [place] Stage: Monoclonal proteins at diagnosis: Serum M-spike: 0.00 gm/dL, kappa serum free light chains: 35.6 mg/L, lambda serum free light chains: 397.8 mg/L, Urinary m-protein: an atypical restricted band is present in the lambda region. The presence of free lambda light chains in the urine is consistent with a lambda-containing monoclonal gammopathy, Urinary protein excretion: 0.07 g/24hrs, Urinary albumin: 31.43 %, and Urinary m-protein present Not measurable Total immunoglobulins at diagnosis: IgG 244 mg/dL, IgA 31 mg/dL, IgM 16 mg/dL Bone marrow plasma cell infiltration: % Systemic treatment and disease course -No prior systemic therapy Local treatments (radiation, surgery, kyphoplasty) -No prior local therapy History of prior work up illness (Dr. 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 Patient apparently had been referred to nephrology for anasarca and to evaluate for nephrotic syndrome. She had been hospitalized in February 2022 and seen by hematology for anemia and nephrology for hypoalbuminemia and anasarca. Her albumin was low at 2.5 and Hgb 8.8 in February 2022. A 24 hour urine protein showed just 55 mg of protein and no M spike on UIFE. Patient had been trying to increase her protein intake and was on a fluid restricted diet. She continued to have significant edema. She was intolerant to Bumex as it caused dizziness and slurred speech. She was discharged on Lasix 20 mg daily. She saw GI for elevated liver function tests -- viral hepatitis studies were unremarkable. Apparently a colonoscopy had been attempted (patient says on three occasions), with poor prep. She was told she had problems with malabsorption. An abdominal ultrasound on 12/29/2021 showed normal liver and no ascites. CT of the abdomen from 03/18/2022 was unremarkable. CK was elevated at 700 but with elevated myoglobin at 86 (normal 25-58). Urine free light chains apparently showed a Bence Gallegos protein, but on repeat was negative when evaluated by hematology. On 05/10/2022, Hgb 9.8 with creatinine 0.96 (up from baseline a few months prior ~0.5), BUN 44, potassium 4.7 while on Lasix 20 mg daily. CRP and ESR may have been mildly elevated in the past. Patient complained of generalized weakness, fatigue, not being able to do her daily chores at home. Exam was notable for 4+ pitting edema in the legs, a resting tremor. Patient's elevated creatinine and BUN were explained by diuretic therapy. Some immunologic serologies were ordered given concern for myositis with elevated CK. Patient was encouraged to continue Lasix. She was also encouraged to follow-up with hematology regarding anemia. This visit, patient confirms the above history. She elaborates that her symptoms began about a year ago, when she went to the ED and was told her serum protein was low. She says the swelling is mostly in her legs, but she also has noticed some swelling along the left breast and left upper extremity. She has been increasing her protein intake - consuming 90 mg protein through her diet and an additional 45 g through supplemental protein shakes. She tells me no significant proteinuria has been identified in her urine. Regarding a possible protein losing enteropathy, she endorses a history of small intestinal bacterial overgrowth (SIBO) characterized by bloating and constipation; she denies diarrhea or loose stools. She reports having tried rifaxamin without improvement. She denies a history of congestive heart failure and reports having had a normal echocardiogram. A BNP was checked on 03/15/2022 and was minimally elevated at 117.2 pg/mL (ref range 0-100). She has gained a lot of weight, due to fluid retention with third spacing, as she is severely hypoalbuminemic. She has also had negative testing for SAYRA by IFA (05/18/2022), ANCA (05/12/2022), normal serum complements (C3 & C4), normal CRP (<2.90) and slightly elevated ESR (33) on 05/12/22. CK was elevated at 283 (05/12/22). Iron studies have been consistent with iron deficiency, for which patient reports having had iron infusions. Ferritin 14 L, iron 34 L, iron saturation 8.1% L, TIBC 419 (05/20/22). Regarding her iron deficiency, she denies hematochezia, melena, gross hematuria, hemoptysis, or a family history of cancer. As mentioned above, she had a CT chest, abdomen, and pelvis on 03/18/2022 which was apparently negative. Regarding her elevated CK level, she relates generalized muscle weakness, which is most pronounced in the legs as opposed to the upper extremities. She is essentially bed-bound at this time. She is unable to perform activities of daily living without assistance. Her vitamin B12 has actually been very high, but she attributes this to having previously been taking a B complex vitamin. She has had an abnormally low serum kappa/lambda ratio of 0.13 (normal 0.26 - 1.65) on 05/20/2022. All of her serum immunoglobulins have been low (IgA 40, IgG 251, IgM 18) on 05/20/2022. Her TSH was elevated to 11.40 but with normal free T4 of 1.10 on 05/20/2022. She has a history of hypothyroidism and takes levothyroxine. She reports a past history of having taken [place] thyroid. Trtzl-[id number] serum was normal at 212 mg/dL on 05/19/2022. Other labs from 05/20/2022 reveal CHANO with negative M spike. Low total protein at 4.9, and an abnormal kappa/lambda ratio of 0.13. Patient's sister is concerned that she might have an unusual form of multiple myeloma, presenting as lymphedema (she brought a copy of the paper to the visit today). Patient and her family want to see hematology for additional work-up, including bone marrow biopsy. Other labs, from 06/01/22 show CBC with WBC 6.4, Hgb 9.0 (MCV 94.2), Plt 170. CBC diff with anisocytosis, target cells. Cr 0.73, BUN 36, CO2, Na 142, K 4.0, CO2 31. AST 84, ALT 85, albumin 2.0. Normal FT4 and low FT3. Haley says she is a 'very sensitive person.' She used to take '22 supplements,' but is taking a lot less now. She denies history of vegan diet; she has a good appetite and reports a robust balanced diet. She endorses a strong family history of Margot's thyroiditis, but denies other autoimmune disease. 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 She reports being up-to-date with age-appropriate cancer screening and had a mammogram within the past few years, PAP one year ago. She says her grandmother from colon cancer. Haley denies fevers or chills. She does have some cold sweats at night. She is gaining 1 lb per day. She denies photosensitivity. She denies dry eye. She has dry mouth which she attributes to fluid restriction. She denies oral or nasal ulcers. She denies malar rash. She does endorse a rash on her abdomen. She denies gross hematuria or frothy urine. She endorses a history of SIBO and bloating with constipation, as discussed above. She denies joint pain. She relates some chronic sinus issues. She endorses a dry cough, but denies hemoptysis. She denies raynaud's phenomenon, digital ulcerations. She does have some shortness of breath. She has some mild heartburn. Denies hematochezia or melena. She endorses imbalance and tremor. Interim updates: 07/08/2022: The patient presents for further evaluation and management of what he is principally anasarca related to hypoalbuminemia of unclear etiology. Similar to the initial history noted above, the patient at today's visit denies a history of significant diarrhea that 1 would expect in a malabsorptive syndrome or protein-losing enteropathy. As noted above, there is no evidence of heavy proteinuria that would be suggestive of amyloid renal involvement or another glomerular disorder leading to nephrotic syndrome. 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 No formal testing of the adrenal axis is evidence to me on my chart review. Patient notes that she is planned for repeat colonoscopy and her sister, who accompanies her during the visit, strongly convinced that this will disclose evidence of amyloidosis. In terms of amyloid agenic symptoms, the patient denies any tongue swelling, new rash, dizziness, lightheadedness, palpitations, dyspnea, orthopnea, or PND. Her NT pro BNP was within the reference range as of 06/03/2022. There is no echocardiogram for me to review at present. Her most recent paraprotein work-up reveals an unremarkable immunofixation, a significantly elevated lambda serum free light chain to 397 mg/L with a KL ratio of 0.09, benito hypogammaglobulinemia, and a 24-hour urine protein that is within the reference range. I do not see a completed urine protein electrophoresis to assess for Bence-Gallegos proteinuria. There is evidence of anemia, with a hemoglobin of 9.2 g/dl that is normocytic. There is no evidence of leukopenia or thrombocytopenia. Serum calcium and serum creatinine are within the reference ranges. The patient underwent a bone survey on 06/21/2022 that did not disclose evidence of lytic lesions. She has not had cross-sectional imaging to assess for osseous or extraosseous disease. Veg F levels have not been assessed and no fat pad biopsy has been completed. Iron studies as of 3 weeks ago showing normal TIBC and transferrin saturation. Ferritin levels were elevated to 1183 ng/mL. A broad micronutrient panel including vitamin B12, vitamin D, and copper is unremarkable. One symptoms of note that she does complain of is bilateral lower extremity neuropathy. She acknowledges bilateral lower extremity paresthesias to the level of the mid ankle with onset around the time of anasarca. These do not follow any particular dermatomal distribution. She denies significant pain or lower extremity weakness. 08/12/22: In the interim since our last visit, the patient underwent a fat pad biopsy that was unremarkable for evidence of amyloidosis. She also underwent an EGD and colonoscopy that disclosed mild gastritis. Biopsies from her endoscopies are pending. She notes that her fatigue and anasarca continue to worsen. She is tired enough on some days that she cannot walk to her car. She denies guy dyspnea, orthopnea, PND or palpitations. Her albumin remains low without evidence of diarrhea or proteinuria. Of note, her VEGF level was within the reference range. PET/CT scan revealed no evidence of osseous lytic disease. 09/10/2022: I discussed the results of the patient's MRI, which demonstrated approximately 2.0 cm marrow base lesions in the left and right ilium that are likely myelomatous. Patient itself is actually feeling better with reduced edema and anasarca. She denies fevers, chills, night sweats, nausea, vomiting, diarrhea, mucosal bleeding, or significant weight changes. Her coagulation parameters do not demonstrate evidence of synthetic liver dysfunction. Her hemoglobin remained stable and I do not have another ready explanation for her anemia. Unfortunately, her repeat bone marrow biopsy demonstrated inadequate cellularity. 09/23/2022: Patient presents to discuss initiation of therapy. Over the past 2 weeks, she has noted an improvement in her bilateral lower extremity edema to the extent that she has reduced her dose of furosemide at home. Her hemoglobin has improved by 1 g/dl, which may reflect hemoconcentration. Her bone marrow biopsy unfortunately yielded low cellularity as noted above. 11/23/2022: Patient returns for evaluation management of her underlying smoldering multiple myeloma. Continues her last visit, she notes that her energy levels improved, no lower extremity edema has also been less pronounced. She denies fevers, chills, night sweats, nausea, vomiting, diarrhea, significant weight changes, and lymphadenopathy. Her involved serum free light chain had been declining without intervention at her last check. 02/24/23: The patient reports that her edema has nearly resolved. She has augmented her dietary intake of protein and followed a ketogenic diet since our last visit with concomitant increase in her albumin. Her abdominal pain and loose stools have also improved during this time. Paraprotein labs reveal continued spontaneous decline in her involved serum free light chain. 04/22/23: In the interim since her last visit, the patient denies fevers, chills, night sweats, nausea, vomiting, diarrhea, and further peripheral edema. Overall she feels well but is still struggling with her irritable bowel syndrome symptoms on a daily basis. Her paraprotein labs demonstrate a stable monoclonal free light chain and no evidence of worsening anemia, renal dysfunction, or hypercalcemia. 07/14/23: In the interim since her last visit, the patient's paraprotein labs demonstrate a stable lambda serum free light chain and a stable free light chain ratio. She remains hypogammaglobulinemic. There is no evidence of monoclonal paraprotein by protein electrophoresis. Immunofixation remains faintly positive for monoclonal lambda paraprotein as expected. There is no evidence of renal disease, anemia, or hypercalcemia. She denies fevers, chills, night sweats, nausea, vomiting, diarrhea, and worsening or new onset anasarca. 10/13/23: In interim since her last visit, the patient went a PET/CT scan that did not demonstrate any evidence of active multiple myeloma. Her involved serum free light chain continues to decline from peak of ~400 mg/L approximately one year ago. She remains hypogammaglobulinemic. She has no evidence of an intact monoclonal paraprotein by protein electrophoresis. There is no evidence of renal dysfunction, hypercalcemia, and bone disease. 01/13/24: By video visit, the patient acknowledges that her lower extremity edema has entirely resolved. She has occasional fatigue but otherwise excellent exercise capacity. She denies fevers, chills, night sweats, nausea, vomiting, diarrhea, and new rash. Immunofixation remains negative and her lambda serum free light chain is steadily declining without any further intervention. She remains hypogammaglobulinemic without evidence of recurrent infection. There is no evidence of worsening anemia, renal dysfunction or hypercalcemia. She stringently denies neuropathy. 07/13/24: In the interim since her last visit, the patient developed persistent continued. She was worked up by commanding officer traffic division and normal thyroid function. Recent CBC demonstrates new onset microcytic anemia with a ferritin of 7 ng/dL. Recent occult blood test in her stool were positive on 2 occasions. Her head golf coach instructed her not to take iron as it would worsen her cancer. Terms of her paraprotein labs, her involved serum free light chain is essentially stable from 12 months ago. There is no evidence of worsening renal function or hypercalcemia. She is currently waiting for colonoscopy at her local hospital but does not know when it can be done as been told it may not be due until September. 08/22/24: At today's visit, the patient denies fever, chills, night sweats, nausea, vomit, diarrhea, and new rash. Paraprotein labs reveal slight increase in involved lambda serum free light chain, negative immunofixation, hypogammaglobulinemia, and no intact monoclonal paraprotein as expected. No quantifiable urine monoclonal protein is in evidence although her Bence-Gallegos protein is detectable by immunofixation. There is no evidence of renal dysfunction, hypercalcemia, or new cytopenias although her baseline normocytic anemia does persist. EGD and colonoscopy were performed on 07/24/2024. Nonbleeding internal hemorrhoids were noted without any other obvious nidus for bleeding or signs of malignancy. 09/26/24: The patient presents for a follow up visit for her smoldering multiple myeloma and iron deficiency anemia. In June, an EGD was performed and reported as normal. Last month, the patient underwent an upper and lower GI endoscopy and a capsule endoscopy at the [facility] in [place], which reportedly showed no evidence of active bleeding. Recent labs show a slight increase in light chain levels, while anemia has improved spontaneously. Ferritin and iron levels remain borderline low. Patient declines IV iron therapy, citing previous experiences of transient improvement. She denies bone pain, fevers, chills, or night sweats. She reports improved energy levels but has reduced her daily walking due to heat and humidity. Review of systems General: No fever , No chills, and No night sweats HEENT: No lumps, no difficulty chewing or swallowing, no enlarging tongue, no tooth aches. Musculoskeletal: See above Hematological: No bleeding or easy bruising. Lymphatic / Immune system: No lymph node enlargement or infection. Cardiovascular: No orthopnea, no dyspnea, no chest pain, no leg edema, no palpitations. Pulmonary: No dyspnea, no wheezing, no cough. PAST MEDICAL HISTORY Diagnosis Date Anxiety state, unspecified Depressive disorder, not elsewhere classified IBS (irritable bowel syndrome) Multiple chemical sensitivity syndrome Small intestinal bacterial overgrowth (SIBO) PAST SURGICAL HISTORY Procedure Laterality Date COLONOSCOPY 07/24/2024 EGD 07/24/2024 TOOTH EXTRACTION Allergies / intolerances ALLERGIES Allergen Reactions Amoxicillin Other: See Comments Codeine Other: See Comments Flavoring Agent (Bu* Other: See Comments Lactose Other: See Comments Peppermint Flavor Other: See Comments Medications ARMOUR THYROID 30 mg tablet Take 1 tablet 5 days a week. Take 2 tablets 2 days a week. OTC PRODUCT Food enzymes 3x daily acetylcysteine (ACET-CYS) Take 1,000 mg by mouth once daily. cholecalciferol, vitamin D3, (D3-2000 ORAL) Take 2,000 mg by mouth once daily. Lactobacillus acidophilus (PROBIOTIC) 10 billion cell cap Take 133 capsules by mouth daily at bedtime. Social History Tobacco Use Smoking status: Never Smokeless tobacco: Never Vaping Use Vaping status: Never Used Substance Use Topics Alcohol use: No Drug use: No FAMILY HISTORY Problem Relation Age of Onset Osteoporosis Mother Heart Mother afib GI Father IBS Margot Disease Sister other (environmental sensitivities [Other]) Sister both sisters Laboratory tests WBC (k/uL) Date Value 09/18/2024 3.78 08/16/2024 4.75 07/06/2024 4.74 01/06/2024 5.93 10/04/2023 7.25 07/07/2023 6.39 04/21/2023 10.94 02/14/2023 6.71 11/24/2022 9.04 10/25/2022 7.83 Abs Neut (k/uL) Date Value 09/18/2024 2.81 08/16/2024 3.67 07/06/2024 3.55 01/06/2024 4.04 10/04/2023 5.42 07/07/2023 4.55 04/21/2023 9.13 02/14/2023 4.56 11/24/2022 6.84 10/25/2022 5.64 Hemoglobin (g/dL) Date Value 09/18/2024 10.3 08/16/2024 9.6 07/06/2024 8.2 01/06/2024 10.5 10/04/2023 11.6 07/07/2023 9.9 04/21/2023 10.4 02/14/2023 12.0 11/24/2022 10.8 10/25/2022 10.2 Platelet Count (k/uL) Date Value 09/18/2024 294 08/16/2024 299 07/06/2024 328 01/06/2024 342 10/04/2023 294 07/07/2023 301 04/21/2023 298 02/14/2023 316 11/24/2022 343 10/25/2022 301 Glucose (mg/dL) Date Value 09/18/2024 75 08/16/2024 102 07/06/2024 94 01/06/2024 102 10/04/2023 105 07/07/2023 95 04/21/2023 103 02/14/2023 105 11/24/2022 114 10/25/2022 102 Creatinine (mg/dL) Date Value 09/18/2024 0.55 08/16/2024 0.59 07/06/2024 0.57 01/06/2024 0.82 10/04/2023 0.61 07/07/2023 0.80 04/21/2023 0.89 02/14/2023 0.66 11/24/2022 0.71 10/25/2022 0.70 Calcium, Total (mg/dL) Date Value 09/18/2024 10.0 08/16/2024 9.5 07/06/2024 10.1 01/06/2024 10.1 10/04/2023 10.0 07/07/2023 9.9 04/21/2023 9.9 02/14/2023 9.8 11/24/2022 9.4 10/25/2022 9.0 M-Protein Concentration (g/dL) Date Value 09/18/2024 0.00 08/16/2024 0.00 07/06/2024 0.00 01/06/2024 0.00 10/04/2023 0.00 07/07/2023 0.00 04/21/2023 0.00 02/14/2023 0.00 11/24/2022 0.00 10/25/2022 0.00 09/23/2022 0.00 08/27/2022 0.00 06/21/2022 0.00 06/03/2022 0.00 M Gee Quant, 24 Hr Urine (g/24hr) Date Value 06/26/2022 0.00 [place] Free, Serum (mg/L) Date Value 09/18/2024 18.5 08/16/2024 17.0 07/06/2024 17.5 01/06/2024 13.1 10/04/2023 12.8 07/07/2023 14.2 04/21/2023 13.0 02/14/2023 16.2 11/24/2022 19.2 10/25/2022 22.2 09/23/2022 29.8 08/27/2022 40.2 06/21/2022 35.6 06/03/2022 34.8 Lambda Free, Serum (mg/L) Date Value 09/18/2024 179.7 08/16/2024 148.8 07/06/2024 140.2 01/06/2024 97.6 10/04/2023 102.3 07/07/2023 125.8 04/21/2023 129.1 02/14/2023 123.3 11/24/2022 135.8 10/25/2022 184.9 09/23/2022 268.8 08/27/2022 329.7 06/21/2022 397.8 06/03/2022 384.6 Interpretation (MPA) (no units) Date Value 07/07/2023 Poorly defined region of restricted mobility in the lambda fadi. Pattern is less well defined or fainter than typically seen in monoclonal gammopathy. This could represent either an atypical presentation of polyclonal immunoglobulins or the presence of a low level lambda containing monoclonal gammopathy. If clinically indicated, urine monoclonal protein analysis and serum free light chain measurements are recommended to evaluate further for monoclonal gammopathy. Clinical correlation is necessary. 02/14/2023 Poorly definded region of restricted mobility in IgG and lambda lanes. Pattern is less well defined or fainter than typically seen in monoclonal gammopathy. This could represent either an atypical presentation of polyclonal immunoglobulins or the presence of a low level IgG lambda monoclonal gammopathy. If clinically indicated, urine monoclonal protein analysis and serum free light chain measurements are recommended to evaluate further for monoclonal gammopathy. Clinical correlation is necessary. 06/03/2022 Poorly defined region of restricted mobility in the lambda fadi. Pattern is less well defined or fainter than typically seen in monoclonal gammopathy. This could represent either an atypical presentation of polyclonal immunoglobulins or the presence of a low level lambda containing monoclonal gammopathy. Imaging To be obtained Pathology: Bone marrow biopsy in progress Impression and Plan Cancer Staging No matching staging information was found for the patient. ##Monoclonal gammopathy of undetermined significance, lambda light chain subtype Cytogenetic risk category: Pending Frailty Score: 0 IMWG Response Criteria: Newly diagnosed Renal: Normal creatinine, clinically no evidence for renal dysfunction. Infectious diseases: No current infection, no need for prophylaxis Musculoskeletal: No current pain, no new lesions suspected. Bone modifying therapy: Diagnostic work-up pending Venous thromboembolism risk: Diagnostic work-up pending control counseling: Diagnostic work-up pending Neurology: Bilateral lower extremity sensory neuropathy as described above Health maintenance discussed: Regular exercise and Appropriate diet Side effects from current medications: None This is a 59-year-old female with approximately 2 years onset anasarca and hypoalbuminemia but does not adequately explained by either urinary protein losses or protein-losing enteropathy. 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 An initial paraprotein work-up ordered recently revealed an elevated lambda serum free light chain with a ratio of 0.09 in the context of anemia that has not been fully explained by micronutrient deficiency. There was no evidence of hemolysis at the time of diagnosis and her anemia has transiently improved but subsequently worsened. An MRI of the spine and pelvis obtained approximately one year ago demonstrated multiple marrow base lesions in the pelvis that are greater than 5 mm. At that time, a PET/CT scan was unremarkable. We discussed the definition of multiple myeloma including the IMWG 2014 criteria. Bone marrow biopsy demonstrated trace lambda monotypic plasma cells. The patient's anemia has improved somewhat; ferritin levels remain borderline and she declines IV iron. Her involved serum free light chain is slightly higher than previously, though within the range of her prior values. There is no over evidence of progression to multiple myeloma. Endoscopy and capsule studies demonstrated no evidence of a nidus for bleeding at the time of the procedures. There is no evidence of GI malignancy. Plan Summary: -Defer initiation of plasma cell directed therapy at present at the request of the patient -- Discussed the option of single-agent daratumumab treatment, which has shown a survival benefit in the Mouna trial, but patient is not interested at this time. -Repeat ferritin and iron studies ordered along with repeat thyroid function studies -Fat pad biopsy negative; EMG and liver biopsy to be deferred at the moment due to improving symptoms -We will repeat skeletal imaging on a biannual basis with either PET/CT scans or low dose whole body CT scans plus MRI of the spine and pelvis. -Patient will continue oral iron supplementation -Repeat paraproteins in 3 months -RTC in 3 months Johanna Mandel MD, [facility] Hematology and Medical Oncology [facility] [address], [place] [facility] [id number] CC: Dr. Mike Aguilar, Dr. Jenna Trevino Medical Decision Making: Problems: Moderate: 2+ stable chronic illnesses Data: Unique test result(s) reviewed: 3+ Unique test(s) ordered: 3+ Risk: Low: Low risk from testing/treatment Medical Decision Making Level: 4 - Moderate documented in this encounter [facility] 09-18-2024 Radiology Diagnostic study note [facility] [address] [place], [place] [id number] Abdomen Single View MR#: [id number] Acct: [id number] Name: HALEY GLEZ Rep #: [id number] : 1965 F 59 From: Moise Reid MD PCP: Dr. Jossie De La Rosa MD Status: REG CLI Study:Abdomen Single View Date of Exam: 09/18/24 Exam# [id number] Ordering Dr: Robyn Ray PROCEDURE: ABDOMEN SINGLE VIEW 09/18/2024 REASON FOR EXAM: VERIFY PASSAGE OF CAPSULE TECHNIQUE: Two-view supine abdomen COMPARISON: Clinical Nursing Manager from the CT examination of 03/18/2022. RAD/Abdomen Single View IMPRESSION: A moderate stool burden is noted. No small bowel dilation is evident. No mass or mass effect is seen. No radiopaque foreign body (including capsule shaped) is identified. [id number] degenerative changes of the visualized spine are also noted. Reading Location: [place] [address] CC: GLASS INSERTERSukhdev Ray; Dr. Jossie De La Rosa MD ~ 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Signed [facility] 08-24-2024 Note HNO ID: [id number] Author: JOHANNA MANDEL MD Service: ? Author Type: Physician Type: Progress Notes Filed: 08/28/2024 14:23 Note Text: [facility] (Elements copied from Shauna White's note dated 06/21/22, have been reviewed and updated where appropriate, and all reflect current assessment and medical decision making during today's encounter, August 24, 2024) Reason for visit: Consult, referred by Shauna White for possible monoclonal gammopathy of renal signifiance. My recommendations to the consult requesting physician are communicated via the shared electronic medical record or US mail. This visit was conducted by Master. 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 Baseline assessment on initial diagnosis date 2022 Cancer Staging No matching staging information was found for the patient. No matching staging information was found for the patient. 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 and may represent an unusual presentation of polyclonal immunoglobulins, but cannot rule out the presence of a low level M protein 06/03/2022 Related Organ or Tissue Involvement (CRAB) or other Myeloma Defining Event (MDE): Anemia (HgB < 10g/dL or 2g/dL below LLN), actual value: 9.1 g/dL Antecedent plasma cell dyscrasia: No Myeloma FISH panel: Cytogenetics: LDH: 156 U/L (100 - 220) ISS stage: Albumin: 2.9 g/dL, B2M: 2.7 mg/L [place] Stage: Monoclonal proteins at diagnosis: Serum M-spike: 0.00 gm/dL, kappa serum free light chains: 35.6 mg/L, lambda serum free light chains: 397.8 mg/L, Urinary m-protein: an atypical restricted band is present in the lambda region. The presence of free lambda light chains in the urine is consistent with a lambda-containing monoclonal gammopathy, Urinary protein excretion: 0.07 g/24hrs, Urinary albumin: 31.43 %, and Urinary m-protein present Not measurable Total immunoglobulins at diagnosis: IgG 244 mg/dL, IgA 31 mg/dL, IgM 16 mg/dL Bone marrow plasma cell infiltration: % Systemic treatment and disease course -No prior systemic therapy Local treatments (radiation, surgery, kyphoplasty) -No prior local therapy History of prior work up illness (Dr. 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 Patient apparently had been referred to nephrology for anasarca and to evaluate for nephrotic syndrome. She had been hospitalized in February 2022 and seen by hematology for anemia and nephrology for hypoalbuminemia and anasarca. Her albumin was low at 2.5 and Hgb 8.8 in February 2022. A 24 hour urine protein showed just 55 mg of protein and no M spike on UIFE. Patient had been trying to increase her protein intake and was on a fluid restricted diet. She continued to have significant edema. She was intolerant to Bumex as it caused dizziness and slurred speech. She was discharged on Lasix 20 mg daily. She saw GI for elevated liver function tests -- viral hepatitis studies were unremarkable. Apparently a colonoscopy had been attempted (patient says on three occasions), with poor prep. She was told she had problems with malabsorption. An abdominal ultrasound on 12/29/2021 showed normal liver and no ascites. CT of the abdomen from 03/18/2022 was unremarkable. CK was elevated at 700 but with elevated myoglobin at 86 (normal 25-58). Urine free light chains apparently showed a Bence Gallegos protein, but on repeat was negative when evaluated by hematology. On 05/10/2022, Hgb 9.8 with creatinine 0.96 (up from baseline a few months prior ~0.5), BUN 44, potassium 4.7 while on Lasix 20 mg daily. CRP and ESR may have been mildly elevated in the past. Patient complained of generalized weakness, fatigue, not being able to do her daily chores at home. Exam was notable for 4+ pitting edema in the legs, a resting tremor. Patient's elevated creatinine and BUN were explained by diuretic therapy. Some immunologic serologies were ordered given concern for myositis with elevated CK. Patient was encouraged to continue Lasix. She was also encouraged to follow-up with hematology regarding anemia. This visit, patient confirms the above history. She elaborates that her symptoms began about a year ago, when she went to the ED and was told her serum protein was low. She says the swelling is mostly in her legs, but she also has noticed some swelling along the left breast and left upper extremity. She has been increasing her protein intake - consuming 90 mg protein through her diet and an additional 45 g through supplemental protein shakes. She tells me no significant proteinuria has been identified in her urine. Regarding a possible protein losing enteropathy, she endorses a history of small intestinal bacterial overgrowth (SIBO) characterized by bloating and constipation; she denies diarrh (more content not included)... [facility] 08-24-2024 History of Present illness Narrative Images from the original note were not included. [facility] (Elements copied from Shauna White's note dated 06/21/22, have been reviewed and updated where appropriate, and all reflect current assessment and medical decision making during today's encounter, August 24, 2024) Reason for visit: Consult, referred by Shauna White for possible monoclonal gammopathy of renal signifiance. My recommendations to the consult requesting physician are communicated via the shared electronic medical record or US mail. This visit was conducted by Zoom. 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 Baseline assessment on initial diagnosis date 2022 Cancer Staging No matching staging information was found for the patient. No matching staging information was found for the patient. 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 and may represent an unusual presentation of polyclonal immunoglobulins, but cannot rule out the presence of a low level M protein 06/03/2022 Related Organ or Tissue Involvement (CRAB) or other Myeloma Defining Event (MDE): Anemia (HgB < 10g/dL or 2g/dL below LLN), actual value: 9.1 g/dL Antecedent plasma cell dyscrasia: No Myeloma FISH panel: Cytogenetics: LDH: 156 U/L (100 - 220) ISS stage: Albumin: 2.9 g/dL, B2M: 2.7 mg/L [place] Stage: Monoclonal proteins at diagnosis: Serum M-spike: 0.00 gm/dL, kappa serum free light chains: 35.6 mg/L, lambda serum free light chains: 397.8 mg/L, Urinary m-protein: an atypical restricted band is present in the lambda region. The presence of free lambda light chains in the urine is consistent with a lambda-containing monoclonal gammopathy, Urinary protein excretion: 0.07 g/24hrs, Urinary albumin: 31.43 %, and Urinary m-protein present Not measurable Total immunoglobulins at diagnosis: IgG 244 mg/dL, IgA 31 mg/dL, IgM 16 mg/dL Bone marrow plasma cell infiltration: % Systemic treatment and disease course -No prior systemic therapy Local treatments (radiation, surgery, kyphoplasty) -No prior local therapy History of prior work up illness (Dr. 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 Patient apparently had been referred to nephrology for anasarca and to evaluate for nephrotic syndrome. She had been hospitalized in February 2022 and seen by hematology for anemia and nephrology for hypoalbuminemia and anasarca. Her albumin was low at 2.5 and Hgb 8.8 in February 2022. A 24 hour urine protein showed just 55 mg of protein and no M spike on UIFE. Patient had been trying to increase her protein intake and was on a fluid restricted diet. She continued to have significant edema. She was intolerant to Bumex as it caused dizziness and slurred speech. She was discharged on Lasix 20 mg daily. She saw GI for elevated liver function tests -- viral hepatitis studies were unremarkable. Apparently a colonoscopy had been attempted (patient says on three occasions), with poor prep. She was told she had problems with malabsorption. An abdominal ultrasound on 12/29/2021 showed normal liver and no ascites. CT of the abdomen from 03/18/2022 was unremarkable. CK was elevated at 700 but with elevated myoglobin at 86 (normal 25-58). Urine free light chains apparently showed a Bence Gallegos protein, but on repeat was negative when evaluated by hematology. On 05/10/2022, Hgb 9.8 with creatinine 0.96 (up from baseline a few months prior ~0.5), BUN 44, potassium 4.7 while on Lasix 20 mg daily. CRP and ESR may have been mildly elevated in the past. Patient complained of generalized weakness, fatigue, not being able to do her daily chores at home. Exam was notable for 4+ pitting edema in the legs, a resting tremor. Patient's elevated creatinine and BUN were explained by diuretic therapy. Some immunologic serologies were ordered given concern for myositis with elevated CK. Patient was encouraged to continue Lasix. She was also encouraged to follow-up with hematology regarding anemia. This visit, patient confirms the above history. She elaborates that her symptoms began about a year ago, when she went to the ED and was told her serum protein was low. She says the swelling is mostly in her legs, but she also has noticed some swelling along the left breast and left upper extremity. She has been increasing her protein intake - consuming 90 mg protein through her diet and an additional 45 g through supplemental protein shakes. She tells me no significant proteinuria has been identified in her urine. Regarding a possible protein losing enteropathy, she endorses a history of small intestinal bacterial overgrowth (SIBO) characterized by bloating and constipation; she denies diarrhea or loose stools. She reports having tried rifaxamin without improvement. She denies a history of congestive heart failure and reports having had a normal echocardiogram. A BNP was checked on 03/15/2022 and was minimally elevated at 117.2 pg/mL (ref range 0-100). She has gained a lot of weight, due to fluid retention with third spacing, as she is severely hypoalbuminemic. She has also had negative testing for SAYRA by IFA (05/18/2022), ANCA (05/12/2022), normal serum complements (C3 & C4), normal CRP (<2.90) and slightly elevated ESR (33) on 05/12/22. CK was elevated at 283 (05/12/22). Iron studies have been consistent with iron deficiency, for which patient reports having had iron infusions. Ferritin 14 L, iron 34 L, iron saturation 8.1% L, TIBC 419 (05/20/22). Regarding her iron deficiency, she denies hematochezia, melena, gross hematuria, hemoptysis, or a family history of cancer. As mentioned above, she had a CT chest, abdomen, and pelvis on 03/18/2022 which was apparently negative. Regarding her elevated CK level, she relates generalized muscle weakness, which is most pronounced in the legs as opposed to the upper extremities. She is essentially bed-bound at this time. She is unable to perform activities of daily living without assistance. Her vitamin B12 has actually been very high, but she attributes this to having previously been taking a B complex vitamin. She has had an abnormally low serum kappa/lambda ratio of 0.13 (normal 0.26 - 1.65) on 05/20/2022. All of her serum immunoglobulins have been low (IgA 40, IgG 251, IgM 18) on 05/20/2022. Her TSH was elevated to 11.40 but with normal free T4 of 1.10 on 05/20/2022. She has a history of hypothyroidism and takes levothyroxine. She reports a past history of having taken [place] thyroid. Fdffw-[id number] serum was normal at 212 mg/dL on 05/19/2022. Other labs from 05/20/2022 reveal CHANO with negative M spike. Low total protein at 4.9, and an abnormal kappa/lambda ratio of 0.13. Patient's sister is concerned that she might have an unusual form of multiple myeloma, presenting as lymphedema (she brought a copy of the paper to the visit today). Patient and her family want to see hematology for additional work-up, including bone marrow biopsy. Other labs, from 06/01/22 show CBC with WBC 6.4, Hgb 9.0 (MCV 94.2), Plt 170. CBC diff with anisocytosis, target cells. Cr 0.73, BUN 36, CO2, Na 142, K 4.0, CO2 31. AST 84, ALT 85, albumin 2.0. Normal FT4 and low FT3. Haely says she is a 'very sensitive person.' She used to take '22 supplements,' but is taking a lot less now. She denies history of vegan diet; she has a good appetite and reports a robust balanced diet. She endorses a strong family history of Margot's thyroiditis, but denies other autoimmune disease. 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 She reports being up-to-date with age-appropriate cancer screening and had a mammogram within the past few years, PAP one year ago. She says her grandmother from colon cancer. Haley denies fevers or chills. She does have some cold sweats at night. She is gaining 1 lb per day. She denies photosensitivity. She denies dry eye. She has dry mouth which she attributes to fluid restriction. She denies oral or nasal ulcers. She denies malar rash. She does endorse a rash on her abdomen. She denies gross hematuria or frothy urine. She endorses a history of SIBO and bloating with constipation, as discussed above. She denies joint pain. She relates some chronic sinus issues. She endorses a dry cough, but denies hemoptysis. She denies raynaud's phenomenon, digital ulcerations. She does have some shortness of breath. She has some mild heartburn. Denies hematochezia or melena. She endorses imbalance and tremor. Interim updates: 07/08/2022: The patient presents for further evaluation and management of what he is principally anasarca related to hypoalbuminemia of unclear etiology. Similar to the initial history noted above, the patient at today's visit denies a history of significant diarrhea that 1 would expect in a malabsorptive syndrome or protein-losing enteropathy. As noted above, there is no evidence of heavy proteinuria that would be suggestive of amyloid renal involvement or another glomerular disorder leading to nephrotic syndrome. 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 No formal testing of the adrenal axis is evidence to me on my chart review. Patient notes that she is planned for repeat colonoscopy and her sister, who accompanies her during the visit, strongly convinced that this will disclose evidence of amyloidosis. In terms of amyloid agenic symptoms, the patient denies any tongue swelling, new rash, dizziness, lightheadedness, palpitations, dyspnea, orthopnea, or PND. Her NT pro BNP was within the reference range as of 06/03/2022. There is no echocardiogram for me to review at present. Her most recent paraprotein work-up reveals an unremarkable immunofixation, a significantly elevated lambda serum free light chain to 397 mg/L with a KL ratio of 0.09, benito hypogammaglobulinemia, and a 24-hour urine protein that is within the reference range. I do not see a completed urine protein electrophoresis to assess for Bence-Gallegos proteinuria. There is evidence of anemia, with a hemoglobin of 9.2 g/dl that is normocytic. There is no evidence of leukopenia or thrombocytopenia. Serum calcium and serum creatinine are within the reference ranges. The patient underwent a bone survey on 06/21/2022 that did not disclose evidence of lytic lesions. She has not had cross-sectional imaging to assess for osseous or extraosseous disease. Veg F levels have not been assessed and no fat pad biopsy has been completed. Iron studies as of 3 weeks ago showing normal TIBC and transferrin saturation. Ferritin levels were elevated to 1183 ng/mL. A broad micronutrient panel including vitamin B12, vitamin D, and copper is unremarkable. One symptoms of note that she does complain of is bilateral lower extremity neuropathy. She acknowledges bilateral lower extremity paresthesias to the level of the mid ankle with onset around the time of anasarca. These do not follow any particular dermatomal distribution. She denies significant pain or lower extremity weakness. 08/12/22: In the interim since our last visit, the patient underwent a fat pad biopsy that was unremarkable for evidence of amyloidosis. She also underwent an EGD and colonoscopy that disclosed mild gastritis. Biopsies from her endoscopies are pending. She notes that her fatigue and anasarca continue to worsen. She is tired enough on some days that she cannot walk to her car. She denies guy dyspnea, orthopnea, PND or palpitations. Her albumin remains low without evidence of diarrhea or proteinuria. Of note, her VEGF level was within the reference range. PET/CT scan revealed no evidence of osseous lytic disease. 09/10/2022: I discussed the results of the patient's MRI, which demonstrated approximately 2.0 cm marrow base lesions in the left and right ilium that are likely myelomatous. Patient itself is actually feeling better with reduced edema and anasarca. She denies fevers, chills, night sweats, nausea, vomiting, diarrhea, mucosal bleeding, or significant weight changes. Her coagulation parameters do not demonstrate evidence of synthetic liver dysfunction. Her hemoglobin remained stable and I do not have another ready explanation for her anemia. Unfortunately, her repeat bone marrow biopsy demonstrated inadequate cellularity. 09/23/2022: Patient presents to discuss initiation of therapy. Over the past 2 weeks, she has noted an improvement in her bilateral lower extremity edema to the extent that she has reduced her dose of furosemide at home. Her hemoglobin has improved by 1 g/dl, which may reflect hemoconcentration. Her bone marrow biopsy unfortunately yielded low cellularity as noted above. 11/23/2022: Patient returns for evaluation management of her underlying smoldering multiple myeloma. Continues her last visit, she notes that her energy levels improved, no lower extremity edema has also been less pronounced. She denies fevers, chills, night sweats, nausea, vomiting, diarrhea, significant weight changes, and lymphadenopathy. Her involved serum free light chain had been declining without intervention at her last check. 02/24/23: The patient reports that her edema has nearly resolved. She has augmented her dietary intake of protein and followed a ketogenic diet since our last visit with concomitant increase in her albumin. Her abdominal pain and loose stools have also improved during this time. Paraprotein labs reveal continued spontaneous decline in her involved serum free light chain. 04/22/23: In the interim since her last visit, the patient denies fevers, chills, night sweats, nausea, vomiting, diarrhea, and further peripheral edema. Overall she feels well but is still struggling with her irritable bowel syndrome symptoms on a daily basis. Her paraprotein labs demonstrate a stable monoclonal free light chain and no evidence of worsening anemia, renal dysfunction, or hypercalcemia. 07/14/23: In the interim since her last visit, the patient's paraprotein labs demonstrate a stable lambda serum free light chain and a stable free light chain ratio. She remains hypogammaglobulinemic. There is no evidence of monoclonal paraprotein by protein electrophoresis. Immunofixation remains faintly positive for monoclonal lambda paraprotein as expected. There is no evidence of renal disease, anemia, or hypercalcemia. She denies fevers, chills, night sweats, nausea, vomiting, diarrhea, and worsening or new onset anasarca. 10/13/23: In interim since her last visit, the patient went a PET/CT scan that did not demonstrate any evidence of active multiple myeloma. Her involved serum free light chain continues to decline from peak of ~400 mg/L approximately one year ago. She remains hypogammaglobulinemic. She has no evidence of an intact monoclonal paraprotein by protein electrophoresis. There is no evidence of renal dysfunction, hypercalcemia, and bone disease. 01/13/24: By video visit, the patient acknowledges that her lower extremity edema has entirely resolved. She has occasional fatigue but otherwise excellent exercise capacity. She denies fevers, chills, night sweats, nausea, vomiting, diarrhea, and new rash. Immunofixation remains negative and her lambda serum free light chain is steadily declining without any further intervention. She remains hypogammaglobulinemic without evidence of recurrent infection. There is no evidence of worsening anemia, renal dysfunction or hypercalcemia. She stringently denies neuropathy. 07/13/24: In the interim since her last visit, the patient developed persistent continued. She was worked up by commanding officer traffic division and normal thyroid function. Recent CBC demonstrates new onset microcytic anemia with a ferritin of 7 ng/dL. Recent occult blood test in her stool were positive on 2 occasions. Her head golf coach instructed her not to take iron as it would worsen her cancer. Terms of her paraprotein labs, her involved serum free light chain is essentially stable from 12 months ago. There is no evidence of worsening renal function or hypercalcemia. She is currently waiting for colonoscopy at her local hospital but does not know when it can be done as been told it may not be due until September. 08/22/24: At today's visit, the patient denies fever, chills, night sweats, nausea, vomit, diarrhea, and new rash. Paraprotein labs reveal slight increase in involved lambda serum free light chain, negative immunofixation, hypogammaglobulinemia, and no intact monoclonal paraprotein as expected. No quantifiable urine monoclonal protein is in evidence although her Bence-Gallegos protein is detectable by immunofixation. There is no evidence of renal dysfunction, hypercalcemia, or new cytopenias although her baseline normocytic anemia does persist. EGD and colonoscopy were performed on 07/24/2024. Nonbleeding internal hemorrhoids were noted without any other obvious nidus for bleeding or signs of malignancy. Review of systems General: No fever , No chills, and No night sweats HEENT: No lumps, no difficulty chewing or swallowing, no enlarging tongue, no tooth aches. Musculoskeletal: See above Hematological: No bleeding or easy bruising. Lymphatic / Immune system: No lymph node enlargement or infection. Cardiovascular: No orthopnea, no dyspnea, no chest pain, no leg edema, no palpitations. Pulmonary: No dyspnea, no wheezing, no cough. PAST MEDICAL HISTORY Diagnosis Date Anxiety state, unspecified Depressive disorder, not elsewhere classified IBS (irritable bowel syndrome) Multiple chemical sensitivity syndrome Small intestinal bacterial overgrowth (SIBO) PAST SURGICAL HISTORY Procedure Laterality Date COLONOSCOPY 07/24/2024 EGD 07/24/2024 TOOTH EXTRACTION Allergies / intolerances ALLERGIES Allergen Reactions Amoxicillin Other: See Comments Codeine Other: See Comments Flavoring Agent (Bu* Other: See Comments Lactose Other: See Comments Peppermint Flavor Other: See Comments Medications ARMOUR THYROID 30 mg tablet Take 1 tablet 5 days a week. Take 2 tablets 2 days a week. OTC PRODUCT Food enzymes 3x daily acetylcysteine (ACET-CYS) Take 1,000 mg by mouth once daily. cholecalciferol, vitamin D3, (D3-2000 ORAL) Take 2,000 mg by mouth once daily. Lactobacillus acidophilus (PROBIOTIC) 10 billion cell cap Take 133 capsules by mouth daily at bedtime. Social History Tobacco Use Smoking status: Never Smokeless tobacco: Never Vaping Use Vaping status: Never Used Substance Use Topics Alcohol use: No Drug use: No FAMILY HISTORY Problem Relation Age of Onset Osteoporosis Mother Heart Mother afib GI Father IBS Margot Disease Sister other (environmental sensitivities [Other]) Sister both sisters Laboratory tests WBC (k/uL) Date Value 08/16/2024 4.75 07/06/2024 4.74 01/06/2024 5.93 10/04/2023 7.25 07/07/2023 6.39 04/21/2023 10.94 02/14/2023 6.71 11/24/2022 9.04 10/25/2022 7.83 09/27/2022 8.03 Abs Neut (k/uL) Date Value 08/16/2024 3.67 07/06/2024 3.55 01/06/2024 4.04 10/04/2023 5.42 07/07/2023 4.55 04/21/2023 9.13 02/14/2023 4.56 11/24/2022 6.84 10/25/2022 5.64 09/27/2022 6.12 Hemoglobin (g/dL) Date Value 08/16/2024 9.6 07/06/2024 8.2 01/06/2024 10.5 10/04/2023 11.6 07/07/2023 9.9 04/21/2023 10.4 02/14/2023 12.0 11/24/2022 10.8 10/25/2022 10.2 09/27/2022 10.0 Platelet Count (k/uL) Date Value 08/16/2024 299 07/06/2024 328 01/06/2024 342 10/04/2023 294 07/07/2023 301 04/21/2023 298 02/14/2023 316 11/24/2022 343 10/25/2022 301 09/27/2022 261 Glucose (mg/dL) Date Value 08/16/2024 102 07/06/2024 94 01/06/2024 102 10/04/2023 105 07/07/2023 95 04/21/2023 103 02/14/2023 105 11/24/2022 114 10/25/2022 102 09/27/2022 76 Creatinine (mg/dL) Date Value 08/16/2024 0.59 07/06/2024 0.57 01/06/2024 0.82 10/04/2023 0.61 07/07/2023 0.80 04/21/2023 0.89 02/14/2023 0.66 11/24/2022 0.71 10/25/2022 0.70 09/27/2022 0.95 Calcium, Total (mg/dL) Date Value 08/16/2024 9.5 07/06/2024 10.1 01/06/2024 10.1 10/04/2023 10.0 07/07/2023 9.9 04/21/2023 9.9 02/14/2023 9.8 11/24/2022 9.4 10/25/2022 9.0 09/27/2022 8.8 M-Protein Concentration (g/dL) Date Value 08/16/2024 0.00 07/06/2024 0.00 01/06/2024 0.00 10/04/2023 0.00 07/07/2023 0.00 04/21/2023 0.00 02/14/2023 0.00 11/24/2022 0.00 10/25/2022 0.00 09/23/2022 0.00 08/27/2022 0.00 06/21/2022 0.00 06/03/2022 0.00 M Gee Quant, 24 Hr Urine (g/24hr) Date Value 06/26/2022 0.00 [place] Free, Serum (mg/L) Date Value 08/16/2024 17.0 07/06/2024 17.5 01/06/2024 13.1 10/04/2023 12.8 07/07/2023 14.2 04/21/2023 13.0 02/14/2023 16.2 11/24/2022 19.2 10/25/2022 22.2 09/23/2022 29.8 08/27/2022 40.2 06/21/2022 35.6 06/03/2022 34.8 Lambda Free, Serum (mg/L) Date Value 08/16/2024 148.8 07/06/2024 140.2 01/06/2024 97.6 10/04/2023 102.3 07/07/2023 125.8 04/21/2023 129.1 02/14/2023 123.3 11/24/2022 135.8 10/25/2022 184.9 09/23/2022 268.8 08/27/2022 329.7 06/21/2022 397.8 06/03/2022 384.6 Interpretation (MPA) (no units) Date Value 07/07/2023 Poorly defined region of restricted mobility in the lambda fadi. Pattern is less well defined or fainter than typically seen in monoclonal gammopathy. This could represent either an atypical presentation of polyclonal immunoglobulins or the presence of a low level lambda containing monoclonal gammopathy. If clinically indicated, urine monoclonal protein analysis and serum free light chain measurements are recommended to evaluate further for monoclonal gammopathy. Clinical correlation is necessary. 02/14/2023 Poorly definded region of restricted mobility in IgG and lambda lanes. Pattern is less well defined or fainter than typically seen in monoclonal gammopathy. This could represent either an atypical presentation of polyclonal immunoglobulins or the presence of a low level IgG lambda monoclonal gammopathy. If clinically indicated, urine monoclonal protein analysis and serum free light chain measurements are recommended to evaluate further for monoclonal gammopathy. Clinical correlation is necessary. 06/03/2022 Poorly defined region of restricted mobility in the lambda fadi. Pattern is less well defined or fainter than typically seen in monoclonal gammopathy. This could represent either an atypical presentation of polyclonal immunoglobulins or the presence of a low level lambda containing monoclonal gammopathy. Imaging To be obtained Pathology: Bone marrow biopsy in progress Impression and Plan Cancer Staging No matching staging information was found for the patient. ##Monoclonal gammopathy of undetermined significance, lambda light chain subtype Cytogenetic risk category: Pending Frailty Score: 0 IMWG Response Criteria: Newly diagnosed Renal: Normal creatinine, clinically no evidence for renal dysfunction. Infectious diseases: No current infection, no need for prophylaxis Musculoskeletal: No current pain, no new lesions suspected. Bone modifying therapy: Diagnostic work-up pending Venous thromboembolism risk: Diagnostic work-up pending control counseling: Diagnostic work-up pending Neurology: Bilateral lower extremity sensory neuropathy as described above Health maintenance discussed: Regular exercise and Appropriate diet Side effects from current medications: None This is a 59-year-old female with approximately 2 years onset anasarca and hypoalbuminemia but does not adequately explained by either urinary protein losses or protein-losing enteropathy. 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 An initial paraprotein work-up ordered recently revealed an elevated lambda serum free light chain with a ratio of 0.09 in the context of anemia that has not been fully explained by micronutrient deficiency. There was no evidence of hemolysis at the time of diagnosis and her anemia has transiently improved but subsequently worsened. An MRI of the spine and pelvis obtained approximately one year ago demonstrated multiple marrow base lesions in the pelvis that are greater than 5 mm. At that time, a PET/CT scan was unremarkable. We discussed the definition of multiple myeloma including the IMWG 2014 criteria. Bone marrow biopsy demonstrated trace lambda monotypic plasma cells. Patient presents with continued today in the context of a ferritin of 7, new onset microcytic anemia, and positive stool occult blood. I am ordering her colonoscopy and EGD to be completed at our site as soon as possible. Her light chains are stable. There is no evidence of endorgan damage directly attributable to her underlying plasma cell clone. At her request, we will defer IV iron but she will continue oral iron supplementation. EGD and colonoscopy were unremarkable except for nonbleeding internal hemorrhoids. Repeat ferritin and iron studies will be ordered Following colonoscopy, consider repeat PET/CT scan. Plan Summary: -Defer initiation of plasma cell directed therapy at present. -Repeat ferritin and iron studies ordered along with repeat thyroid function studies -Fat pad biopsy negative; EMG and liver biopsy to be deferred at the moment due to improving symptoms -We will repeat skeletal imaging on a biannual basis with either PET/CT scans or low dose whole body CT scans plus MRI of the spine and pelvis. -Patient will continue oral iron supplementatio. -Repeat paraproteins in 2 months -RTC in 2 months Johanna Mandel MD, [facility] Hematology and Medical Oncology [facility] [address], [place] [facility] [id number] CC: Dr. Mike Aguilar, Dr. Jenna Trevino Medical Decision Making: Problems: Moderate: 2+ stable chronic illnesses Data: Unique test result(s) reviewed: 3+ Unique test(s) ordered: 3+ Risk: Low: Low risk from testing/treatment Medical Decision Making Level: 4 - Moderate documented in this encounter [facility] 08-01-2024 History of Present illness Narrative GENERAL SURGERY-ENDOSCOPY FOLLOW UP VIRTUAL VISIT I have communicated my name and active licensure. The patient's identity and physical location were verified at the time of this visit. Either the patient or their legal sales and merchandising representative has been informed of the risks and benefits of -- and alternatives to -- treatment through a remote evaluation and consents to proceed with the evaluation remotely. Haley Glez 1965 [id number] REFERRING PHYSICIAN: No referring provider defined for this encounter. Haley Glez is a patient I am following for [facility]. Dr. Shankar performed upper & lower endoscopy on 07/24/24. The patient was found to have EGD Impression: - Normal first portion of the duodenum and second portion of the duodenum. - Normal stomach. Biopsied. - Small hiatal hernia. COLONOSCOPY Impression: - Non-bleeding internal hemorrhoids. - No specimens collected. PATHOLOGY: FINAL DIAGNOSIS A. Stomach, antrum, biopsy: -Chronic inactive gastritis, gastric antral mucosa. Addendum An immunohistochemical stain for Helicobacter pylori is negative. The patient notes no complaints since the procedure. -notes she follows with [facility] & completed scopes with us because she was able to get in quicker. -last H&H 8.2 &25.3. + iFOBT x 2.- concerns for bleed in the small bowel -hx of SIBO VITALS: There were no vitals taken for this visit. General: patient is alert, cooperative, pleasant and in no acute distress Assessment ASSESSMENT/PLAN: 1. Iron deficiency anemia, unspecified iron deficiency anemia type - ICD9: 280.9, ICD10: D50.9 - No significant cause for anemia - Patient wants to follow up with [facility] for capsule endoscopy since she is already an established patient. The operative findings and pathology report were reviewed with the patient, and the patient has had the opportunity to ask questions and have questions answered. If the patient notes any problems or changes in bowel function, the patient should contact me immediately. Otherwise I recommend follow up colonoscopy in 5-10 years. HM updated and recall letter generated. Discussed treatment plan and patient voices understanding. Patient's questions answered appropriately. Medications and potential side effects were discussed and patient voices understanding. Return to the office as scheduled or as needed for worsening/no improvement. Pippa Rojas APRN.CNP Risk of morbidity, mortality and/or complications of treatment plan: low I spent a total of 10 minutes on the date of the service which included preparing to see the patient, [id number] patient care, completing clinical documentation, and communicating results to the patient/family/caregiver. documented in this encounter [facility] 08-01-2024 Note HNO ID: [id number] Author: PIPPA ROJAS APRN.CNP Service: ? Author Type: Nurse Practitioner Type: Progress Notes Filed: 08/01/2024 15:13 Note Text: GENERAL SURGERY-ENDOSCOPY FOLLOW UP VIRTUAL VISIT I have communicated my name and active licensure. The patient's identity and physical location were verified at the time of this visit. Either the patient or their legal sales and merchandising representative has been informed of the risks and benefits of -- and alternatives to -- treatment through a remote evaluation and consents to proceed with the evaluation remotely. Haley Glez 1965 [id number] REFERRING PHYSICIAN: No referring provider defined for this encounter. Haley Glez is a patient I am following for CLIFF[facility]. Dr. Shankar performed upper AND lower endoscopy on 07/24/24. The patient was found to have EGD Impression: - Normal first portion of the duodenum and second portion of the duodenum. - Normal stomach. Biopsied. - Small hiatal hernia. COLONOSCOPY Impression: - Non-bleeding internal hemorrhoids. - No specimens collected. PATHOLOGY: FINAL DIAGNOSIS A. Stomach, antrum, biopsy: -Chronic inactive gastritis, gastric antral mucosa. Addendum An immunohistochemical stain for Helicobacter pylori is negative. The patient notes no complaints since the procedure. -notes she follows with [facility] AND completed scopes with us because she was able to get in quicker. -last HANDH 8.2 AND25.3. + iFOBT x 2.- concerns for bleed in the small bowel -hx of SIBO VITALS: There were no vitals taken for this visit. General: patient is alert, cooperative, pleasant and in no acute distress Assessment ASSESSMENT/PLAN: 1. Iron deficiency anemia, unspecified iron deficiency anemia type - ICD9: 280.9, ICD10: D50.9 - No significant cause for anemia - Patient wants to follow up with [facility] for capsule endoscopy since she is already an established patient. The operative findings and pathology report were reviewed with the patient, and the patient has had the opportunity to ask questions and have questions answered. If the patient notes any problems or changes in bowel function, the patient should contact me immediately. Otherwise I recommend follow up colonoscopy in 5-10 years. HM updated and recall letter generated. Discussed treatment plan and patient voices understanding. Patient's questions answered appropriately. Medications and potential side effects were discussed and patient voices understanding. Return to the office as scheduled or as needed for worsening/no improvement. Pippa Rojas, 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.SOLAR SALES ASSOCIATE Risk of morbidity, mortality and/or complications of treatment plan: low I spent a total of 10 minutes on the date of the service which included preparing to see the patient, [id number] patient care, completing clinical documentation, and communicating results to the patient/family/caregiver. [facility] 07-24-2024 Note Formatting of this n ote might be different from the original. The patient received a copy of Colonoscopy discharge instructions that contain information for how to contact the physician who performed the procedure and when to seek medical care. [facility] 07-24-2024 Miscellaneous Notes The patient received a copy of Colonoscopy discharge instructions that contain information for how to contact the physician who performed the procedure and when to seek medical care. documented in this encounter [facility] 07-24-2024 Attending History and physical note UPDATED PROCEDURAL SEDATION HISTORY AND PHYSICAL EXAMINATION SERVICE DATE: 07/24/2024 SERVICE TIME: 8:29 PHYSICAL EXAM MUST BE COMPLETED ON ADMISSION PROCEDURE: EGD and colonoscopy, possible biopsies Procedure Indications: anemia The History and Physical (completed in the past 30 days) has been reviewed and the patient has been examined. The contents accurately reflect the patient's condition with the following additions or revisions since the H&P was completed. ASA Class: ASA Class: Patient with severe systemic disease Examination indicates no changes. AIRWAY: Mouth opening greater than 3 fingerbreadths: Yes Neck Full Range of Motion: Yes LUNGS: Lungs clear to auscultation CARDIAC: Regular rhythm,Regular rate Provisional Diagnosis/Treatment Plan: egd and colonoscopy, opssible biopsies Sedation Goal: Moderate This H&P can be found in the Electronic Medical Record. SIGNATURE: Jenna Shankar MD PATIENT NAME: Haley Glez DATE: July 24, 2024 TIME: 8:31 AM Source Note - Jenna Shankar MD - 07/24/2024 9:00 AM EDT HISTORY AND PHYSICAL Haley Glez 1965 REFERRING PHYSICIAN: Johanna Mandel,* CHIEF COMPLAINT: No chief complaint on file. HPI: The patient is a 59 year old female here for upper and lower endoscopy for anemia Last colonoscopy - 2022 PAST MEDICAL HISTORY Diagnosis Date Anxiety state, unspecified Depressive disorder, not elsewhere classified IBS (irritable bowel syndrome) Multiple chemical sensitivity syndrome Small intestinal bacterial overgrowth (SIBO) PAST SURGICAL HISTORY Procedure Laterality Date TOOTH EXTRACTION Current Outpatient Medications Medication Sig ARMOUR THYROID 30 mg tablet Take 1 tablet 5 days a week. Take 2 tablets 2 days a week. OTC PRODUCT Food enzymes 3x daily acetylcysteine (ACET-CYS) Take 1,000 mg by mouth once daily. cholecalciferol, vitamin D3, (D3-2000 ORAL) Take 2,000 mg by mouth once daily. Lactobacillus acidophilus (PROBIOTIC) 10 billion cell cap Take 133 capsules by mouth daily at bedtime. No current facility-administered medications for this encounter. ALLERGIES: Amoxicillin, Codeine, Flavoring Agent (Bulk), Lactose, and Peppermint Flavor PERSONAL HISTORY: Social History Tobacco Use Smoking status: Never Smokeless tobacco: Never Vaping Use Vaping status: Never Used Substance Use Topics Alcohol use: No Drug use: No FAMILY HISTORY Problem Relation Age of Onset Osteoporosis Mother Heart Mother afib GI Father IBS Margot Disease Sister other (environmental sensitivities [Other]) Sister both sisters REVIEW OF SYMPTOMS: Denies chest pain Denies shortness of breath Physical examination: Vital signs in chart, reviewed and noted by me General - WD/WN in no apparent distress, alert and oriented Head - Normocephalic. EOM intact with sclera clear. Mouth with mucus membranes moist. Neck - supple with no jugular venous distention noted. Trachea is midline. Lungs - normal breath sounds, normal respiratory motion, no adventitial sounds noted. Heart - normal heart sounds. Regular rate. Abdomen - soft and benign. Extremities - no pitting edema noted. Skin - Normal skin integrity. Neurological - non focal Psych - calm and appropriate Impression: anemia Discussion/Plan/Recommendations: I have discussed the above with the patient. I have offered colonoscopy and EGD, possible biopsies I have explained the procedure to the patient. I have counseled the patient as to the risks of the procedure, including but not limited to: infection, bleeding, injury to any intrabdominal organs such as liver/spleen, perforation of the GI tract, inability to complete the procedure, complications of anesthesia, etc. - the patient understands. The patient wishes to proceed. I have answered all questions to the patient s satisfaction and the patient has no further questions. Jenna Shankar MD [facility] Work Phone: 07-24-2024 History and physical note HISTORY AND PHYSICAL Haley Glez 1965 REFERRING PHYSICIAN: Johanna Mandel,* CHIEF COMPLAINT: No chief complaint on file. HPI: The patient is a 59 year old female here for upper and lower endoscopy for anemia Last colonoscopy - 2022 PAST MEDICAL HISTORY Diagnosis Date Anxiety state, unspecified Depressive disorder, not elsewhere classified IBS (irritable bowel syndrome) Multiple chemical sensitivity syndrome Small intestinal bacterial overgrowth (SIBO) PAST SURGICAL HISTORY Procedure Laterality Date TOOTH EXTRACTION Current Outpatient Medications Medication Sig ARMOUR THYROID 30 mg tablet Take 1 tablet 5 days a week. Take 2 tablets 2 days a week. OTC PRODUCT Food enzymes 3x daily acetylcysteine (ACET-CYS) Take 1,000 mg by mouth once daily. cholecalciferol, vitamin D3, (D3-2000 ORAL) Take 2,000 mg by mouth once daily. Lactobacillus acidophilus (PROBIOTIC) 10 billion cell cap Take 133 capsules by mouth daily at bedtime. No current facility-administered medications for this encounter. ALLERGIES: Amoxicillin, Codeine, Flavoring Agent (Bulk), Lactose, and Peppermint Flavor PERSONAL HISTORY: Social History Tobacco Use Smoking status: Never Smokeless tobacco: Never Vaping Use Vaping status: Never Used Substance Use Topics Alcohol use: No Drug use: No FAMILY HISTORY Problem Relation Age of Onset Osteoporosis Mother Heart Mother afib GI Father IBS Margot Disease Sister other (environmental sensitivities [Other]) Sister both sisters REVIEW OF SYMPTOMS: Denies chest pain Denies shortness of breath Physical examination: Vital signs in chart, reviewed and noted by me General - WD/WN in no apparent distress, alert and oriented Head - Normocephalic. EOM intact with sclera clear. Mouth with mucus membranes moist. Neck - supple with no jugular venous distention noted. Trachea is midline. Lungs - normal breath sounds, normal respiratory motion, no adventitial sounds noted. Heart - normal heart sounds. Regular rate. Abdomen - soft and benign. Extremities - no pitting edema noted. Skin - Normal skin integrity. Neurological - non focal Psych - calm and appropriate Impression: anemia Discussion/Plan/Recommendations: I have discussed the above with the patient. I have offered colonoscopy and EGD, possible biopsies I have explained the procedure to the patient. I have counseled the patient as to the risks of the procedure, including but not limited to: infection, bleeding, injury to any intrabdominal organs such as liver/spleen, perforation of the GI tract, inability to complete the procedure, complications of anesthesia, etc. - the patient understands. The patient wishes to proceed. I have answered all questions to the patient s satisfaction and the patient has no further questions. Jenna Shankar MD [facility] 07-24-2024 History and physical note UPDATED PROCEDURAL SEDATION HISTORY AND PHYSICAL EXAMINATION SERVICE DATE: 07/24/2024 SERVICE TIME: 8:29 PHYSICAL EXAM MUST BE COMPLETED ON ADMISSION PROCEDURE: EGD and colonoscopy, possible biopsies Procedure Indications: anemia The History and Physical (completed in the past 30 days) has been reviewed and the patient has been examined. The contents accurately reflect the patient's condition with the following additions or revisions since the H&P was completed. ASA Class: ASA Class: Patient with severe systemic disease Examination indicates no changes. AIRWAY: Mouth opening greater than 3 fingerbreadths: Yes Neck Full Range of Motion: Yes LUNGS: Lungs clear to auscultation CARDIAC: Regular rhythm,Regular rate Provisional Diagnosis/Treatment Plan: egd and colonoscopy, opssible biopsies Sedation Goal: Moderate This H&P can be found in the Electronic Medical Record. SIGNATURE: Jenna Shankar MD PATIENT NAME: Haley Glez DATE: July 24, 2024 TIME: 8:31 AM Source Note - Jenna Shankar MD - 07/24/2024 9:00 AM EDT HISTORY AND PHYSICAL Haley Glez 1965 REFERRING PHYSICIAN: Johanna Mandel,* CHIEF COMPLAINT: No chief complaint on file. HPI: The patient is a 59 year old female here for upper and lower endoscopy for anemia Last colonoscopy - 2022 PAST MEDICAL HISTORY Diagnosis Date Anxiety state, unspecified Depressive disorder, not elsewhere classified IBS (irritable bowel syndrome) Multiple chemical sensitivity syndrome Small intestinal bacterial overgrowth (SIBO) PAST SURGICAL HISTORY Procedure Laterality Date TOOTH EXTRACTION Current Outpatient Medications Medication Sig ARMOUR THYROID 30 mg tablet Take 1 tablet 5 days a week. Take 2 tablets 2 days a week. OTC PRODUCT Food enzymes 3x daily acetylcysteine (ACET-CYS) Take 1,000 mg by mouth once daily. cholecalciferol, vitamin D3, (D3-2000 ORAL) Take 2,000 mg by mouth once daily. Lactobacillus acidophilus (PROBIOTIC) 10 billion cell cap Take 133 capsules by mouth daily at bedtime. No current facility-administered medications for this encounter. ALLERGIES: Amoxicillin, Codeine, Flavoring Agent (Bulk), Lactose, and Peppermint Flavor PERSONAL HISTORY: Social History Tobacco Use Smoking status: Never Smokeless tobacco: Never Vaping Use Vaping status: Never Used Substance Use Topics Alcohol use: No Drug use: No FAMILY HISTORY Problem Relation Age of Onset Osteoporosis Mother Heart Mother afib GI Father IBS Margot Disease Sister other (environmental sensitivities [Other]) Sister both sisters REVIEW OF SYMPTOMS: Denies chest pain Denies shortness of breath Physical examination: Vital signs in chart, reviewed and noted by me General - WD/WN in no apparent distress, alert and oriented Head - Normocephalic. EOM intact with sclera clear. Mouth with mucus membranes moist. Neck - supple with no jugular venous distention noted. Trachea is midline. Lungs - normal breath sounds, normal respiratory motion, no adventitial sounds noted. Heart - normal heart sounds. Regular rate. Abdomen - soft and benign. Extremities - no pitting edema noted. Skin - Normal skin integrity. Neurological - non focal Psych - calm and appropriate Impression: anemia Discussion/Plan/Recommendations: I have discussed the above with the patient. I have offered colonoscopy and EGD, possible biopsies I have explained the procedure to the patient. I have counseled the patient as to the risks of the procedure, including but not limited to: infection, bleeding, injury to any intrabdominal organs such as liver/spleen, perforation of the GI tract, inability to complete the procedure, complications of anesthesia, etc. - the patient understands. The patient wishes to proceed. I have answered all questions to the patient s satisfaction and the patient has no further questions. Jenna Shankar MD HISTORY AND PHYSICAL Haley Glez 1965 REFERRING PHYSICIAN: Johanna Mandel,* CHIEF COMPLAINT: No chief complaint on file. HPI: The patient is a 59 year old female here for upper and lower endoscopy for anemia Last colonoscopy - 2022 PAST MEDICAL HISTORY Diagnosis Date Anxiety state, unspecified Depressive disorder, not elsewhere classified IBS (irritable bowel syndrome) Multiple chemical sensitivity syndrome Small intestinal bacterial overgrowth (SIBO) PAST SURGICAL HISTORY Procedure Laterality Date TOOTH EXTRACTION Current Outpatient Medications Medication Sig ARMOUR THYROID 30 mg tablet Take 1 tablet 5 days a week. Take 2 tablets 2 days a week. OTC PRODUCT Food enzymes 3x daily acetylcysteine (ACET-CYS) Take 1,000 mg by mouth once daily. cholecalciferol, vitamin D3, (D3-2000 ORAL) Take 2,000 mg by mouth once daily. Lactobacillus acidophilus (PROBIOTIC) 10 billion cell cap Take 133 capsules by mouth daily at bedtime. No current facility-administered medications for this encounter. ALLERGIES: Amoxicillin, Codeine, Flavoring Agent (Bulk), Lactose, and Peppermint Flavor PERSONAL HISTORY: Social History Tobacco Use Smoking status: Never Smokeless tobacco: Never Vaping Use Vaping status: Never Used Substance Use Topics Alcohol use: No Drug use: No FAMILY HISTORY Problem Relation Age of Onset Osteoporosis Mother Heart Mother afib GI Father IBS Margot Disease Sister other (environmental sensitivities [Other]) Sister both sisters REVIEW OF SYMPTOMS: Denies chest pain Denies shortness of breath Physical examination: Vital signs in chart, reviewed and noted by me General - WD/WN in no apparent distress, alert and oriented Head - Normocephalic. EOM intact with sclera clear. Mouth with mucus membranes moist. Neck - supple with no jugular venous distention noted. Trachea is midline. Lungs - normal breath sounds, normal respiratory motion, no adventitial sounds noted. Heart - normal heart sounds. Regular rate. Abdomen - soft and benign. Extremities - no pitting edema noted. Skin - Normal skin integrity. Neurological - non focal Psych - calm and appropriate Impression: anemia Discussion/Plan/Recommendations: I have discussed the above with the patient. I have offered colonoscopy and EGD, possible biopsies I have explained the procedure to the patient. I have counseled the patient as to the risks of the procedure, including but not limited to: infection, bleeding, injury to any intrabdominal organs such as liver/spleen, perforation of the GI tract, inability to complete the procedure, complications of anesthesia, etc. - the patient understands. The patient wishes to proceed. I have answered all questions to the patient s satisfaction and the patient has no further questions. Jenna Shankar MD documented in this encounter [facility] 07-13-2024 Instructions Johanna Mandel MD - 07/13/2024 4:16 PM EDT COLONOSCOPY BOWEL PREPARATION INSTRUCTIONS GOLYTELY/NULYTELY/TRILYTE/COLYTE Your doctor has scheduled you for a colonoscopy. To have a successful colonoscopy, you must have a clean colon, that is empty. A clean colon allows your doctor to see the entire colon & diagnose issues like polyps or cancer. For doctors, a clean colon is like driving on a dru day; a dirty colon like driving in a storm. It is very important that you follow these instructions exactly, or your colonoscopy might not be as effective, could be canceled, and you may need to do the bowel prep and the colonoscopy again. TRANSPORTATION REQUIREMENTS You are receiving IV sedation. For your safety, a responsible adult escort must accompany you to and from your procedure: Your adult escort MUST be present with you at check-in for your colonoscopy. Your adult escort MUST remain in the endoscopy area until you are discharged. Your adult escort MUST transport you home once you are discharged. You are NOT allowed to operate any form of transportation (i.e. drive a car, bicycle, etc.) or leave the Endoscopy Center ALONE. It is not safe to do so. If you cannot meet these requirements, your procedure will be canceled. MEDICATION REQUIREMENTS For your safety, certain medications will need to be stopped or adjusted before you can have your procedure: BLOOD THINNERS: If you take blood thinners, such as Coumadin (warfarin), Plavix (clopidogrel), Ticlid (ticlopidine hydrochloride), Agrylin (anagrelide), Xarelto (Rivaroxaban), Pradaxa (Dabigatran), Eliquis (Apixaban), or Effient (Prasugrel), contact the physician who is prescribing these medications at least 2 weeks prior to your procedure to discuss any necessary adjustments. DIABETES: If you take medications for diabetes, your dosage may need to be adjusted. If you are being treated for diabetes with insulin, diabetic pills, or other injectable medications do not take your REGULAR dose after midnight on the day of your procedure. If you are taking any other types of insulin such as Lantus, Humalog, NPH (long-acting insulin), or 70/30 insulin, take half your normal dose the day before your procedure. DIABETES/WEIGHT MANAGEMENT: If you take medications for weight-loss, your dosage may need to be adjusted Contact the doctor who prescribes this medication for further instructions. If you take medications for weight-loss like semaglutide (Ozempic, Wegovy, Rybelsus), dulaglutide (Trulicity), liraglutide (Victoza, Saxenda), exenatide (Byetta, Bydureon), or lixisenatide (Adylyxin), stop your medication 1 week prior to your procedure. If you take medications like canagliflozin (Invokana), dapagliflozin (Farxiga, Forxiga), empagliflozin (Jardiance), stop your medication 3 days prior to your procedure. If you take ertugliflozin (Steglatro) stop your medication 4 days prior to your procedure. IRON: If you take iron pills, STOP them 1 week BEFORE your procedure, may resume after. OTHER MEDS: May take all other medications (including aspirin, antibiotics, water pills / diuretics like Lasix or Metolozone, blood pressure meds, etc.) at their usual scheduled time with a sip of water. DIET REQUIREMENTS The day before your colonoscopy, you may have a clear liquid diet (see below). The day of your colonoscopy, you may continue a clear liquid diet until 3 hours before your colonoscopy. Within 3 hours of your colonoscopy, take only any medications (as above) with a sip of water. Clear Liquid Diet Broth (chicken, beef or vegetable broth or bullion. Just the broth, no solids). Water Coffee or Tea (NO milk or creamer), but sugar and sugar substitutes are allowed. Clear liquids including clear, yellow, green, blue (NO red, NO orange, NO purple) Sodas / soft drinks Gatorade or other sports drinks Anirudh-Aid or flavored drinks Plain Jell-O or other gelatins Fruit juice (strained; no-pulp) Popsicles or hard candy BOWEL PREPARATION (GOLYTELY/NULYTELY/TRILYTE/COLYTE) Split Dosing Bowel Prep: This means drinking your bowel prep in two doses. Split dosing helps clean your colon better and makes it less likely that your procedure will be canceled. Fill your prescription for Golytely/Nulytely/Trilyte/Colyte: The afternoon before your colonoscopy, mix the solution and refrigerate. You may add the flavor pack (if present) that came with the bowel preparation. Do not add ice, sugar, or other flavorings to the solution. You will drink your prep in two doses, by several hours. On the evening before your colonoscopy: 1. 6 PM drink the first half of the bowel preparation solution. Drink one 8-ounce glass every 15 minutes. 2. Six hours before your colonoscopy, drink the second half of the solution. Drink one 8-ounce glass every 15 minutes. 3. You may continue a clear liquid diet until 3 hours before your colonoscopy. Bowel prep can work differently from person to person. Some people's bowels move slowly and they may need different instructions. Please see your doctor in office or virtually for personalized bowel prep instructions if you have: Medical condition that needs special accommodations Had a poor bowel prep results or failed bowel prep attempts in the past. Had difficulty with anesthesia during the procedure. FREQUENTLY ASKED QUESTIONS Q: What if I suffer from constipation? A: Recommend taking extra laxatives to resolve your constipation days prior to entering the bowel prep day. Q: What if have had prior poor preps results in past? A: Contact your physician as you will likely need additional bowel prep instructions. Q: What if I have motility issues like Parkinson's, MS (multiple sclerosis), wheelchair dependent, etc.? or on medications that slow bowel emptying (narcotics, gabapentin, anticholinergic medications etc.) A: Contact your physician as you will likely need extra time and additional laxatives to complete your bowel prep. Q: What if I cannot drink large volume of liquid? A: Start your prep 2-3 hours earlier to allow yourself more time to complete the entire prep. Q: What if I can't finish my bowel prep? A: If you cannot finish your entire bowel prep, it is likely that your colonoscopy will need to be rescheduled due to poor prep quality. Q: What if I had bariatric surgery? Do I still have to complete the entire prep? A: Yes, gastric bypass surgery involves the stomach & small bowel. You may need to drink smaller amounts, slower (may need more time to complete your bowel prep). Gastric bypass does not alter the length of your colon so you will need to complete the entire bowel prep, it may just take longer time to complete it. Q: What if I am on dialysis? A: Please consult your electric meter inspector prior to scheduling to get instructions pertinent to you. In general, dialysis patients take the Golytely bowel prep and have the procedure same day of their dialysis (colonoscopy in AM, dialysis in PM). Q: How do I know if something is considered as clear liquid diet? A: If you can pour it in a glass and you can see through it, it is considered clear liquid Q: Can I eat nuts, seeds, beans, popcorn, dried fruits, vegetables & fruits that have skin peel? A: No, you will need to not eat these items starting 3 days prior to procedure. Q: Can I take Uber/Lyft/taxi/bus home? A: An adult MUST be present with you at check-in for your colonoscopy and remain in the endoscopy area until you are discharged. You can take Uber home only if this adult escort is with you at check in, remain in the endoscopy area until you are discharged, and takes the Uber with you to home. Q: Can I sleep it off here and drive myself home? A: No, you must have an adult with you at time of procedure check in, remain in the endoscopy center during your procedure, and drive you home. You cannot drive a vehicle after your procedure the rest of the day. documented in this encounter [facility] 07-13-2024 Note HNO ID: [id number] Author: JOHANNA MANDEL MD Service: ? 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 My recommendations to the consult requesting physician are communicated via the shared electronic medical record or US mail. This visit was conducted by Master. 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 Baseline assessment on initial diagnosis date 2022 Cancer Staging No matching staging information was found for the patient. No matching staging information was found for the patient. 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 and may represent an unusual presentation of polyclonal immunoglobulins, but cannot rule out the presence of a low level M protein 06/03/2022 Related Organ or Tissue Involvement (CRAB) or other Myeloma Defining Event (MDE): Anemia (HgB < 10g/dL or 2g/dL below LLN), actual value: 9.1 g/dL Antecedent plasma cell dyscrasia: No Myeloma FISH panel: Cytogenetics: LDH: 156 U/L (100 - 220) ISS stage: Albumin: 2.9 g/dL, B2M: 2.7 mg/L [place] Stage: Monoclonal proteins at diagnosis: Serum M-spike: 0.00 gm/dL, kappa serum free light chains: 35.6 mg/L, lambda serum free light chains: 397.8 mg/L, Urinary m-protein: an atypical restricted band is present in the lambda region. The presence of free lambda light chains in the urine is consistent with a lambda-containing monoclonal gammopathy, Urinary protein excretion: 0.07 g/24hrs, Urinary albumin: 31.43 %, and Urinary m-protein present Not measurable Total immunoglobulins at diagnosis: IgG 244 mg/dL, IgA 31 mg/dL, IgM 16 mg/dL Bone marrow plasma cell infiltration: % Systemic treatment and disease course -No prior systemic therapy Local treatments (radiation, surgery, kyphoplasty) -No prior local therapy History of prior work up illness (Dr. 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 Patient apparently had been referred to nephrology for anasarca and to evaluate for nephrotic syndrome. She had been hospitalized in February 2022 and seen by hematology for anemia and nephrology for hypoalbuminemia and anasarca. Her albumin was low at 2.5 and Hgb 8.8 in February 2022. A 24 hour urine protein showed just 55 mg of protein and no M spike on UIFE. Patient had been trying to increase her protein intake and was on a fluid restricted diet. She continued to have significant edema. She was intolerant to Bumex as it caused dizziness and slurred speech. She was discharged on Lasix 20 mg daily. She saw GI for elevated liver function tests -- viral hepatitis studies were unremarkable. Apparently a colonoscopy had been attempted (patient says on three occasions), with poor prep. She was told she had problems with malabsorption. An abdominal ultrasound on 12/29/2021 showed normal liver and no ascites. CT of the abdomen from 03/18/2022 was unremarkable. CK was elevated at 700 but with elevated myoglobin at 86 (normal 25-58). Urine free light chains apparently showed a Bence Gallegos protein, but on repeat was negative when evaluated by hematology. On 05/10/2022, Hgb 9.8 with creatinine 0.96 (up from baseline a few months prior ~0.5), BUN 44, potassium 4.7 while on Lasix 20 mg daily. CRP and ESR may have been mildly elevated in the past. Patient complained of generalized weakness, fatigue, not being able to do her daily chores at home. Exam was notable for 4+ pitting edema in the legs, a resting tremor. Patient's elevated creatinine and BUN were explained by diuretic therapy. Some immunologic serologies were ordered given concern for myositis with elevated CK. Patient was encouraged to continue Lasix. She was also encouraged to follow-up with hematology regarding anemia. This visit, patient confirms the above history. She elaborates that her symptoms began about a year ago, when she went to the ED and was told her serum protein was low. She says the swelling is mostly in her legs, but she also has noticed some swelling along the left breast and left upper extremity. She has been increasing her protein intake - consuming 90 mg protein through her diet and an additional 45 g through supplemental protein shakes. She tells me no significant proteinuria has been identified in her urine. Regarding a possible protein losing enteropathy, she endorses a history of small intestinal bacterial overgrowth (SIBO) characterized by bloating and constipation; she denies diar (more content not included)... [facility] 07-13-2024 History of Present illness Narrative Images from the original note were not included. 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 My recommendations to the consult requesting physician are communicated via the shared electronic medical record or US mail. This visit was conducted by Zoom. 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 Baseline assessment on initial diagnosis date 2022 Cancer Staging No matching staging information was found for the patient. No matching staging information was found for the patient. 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 and may represent an unusual presentation of polyclonal immunoglobulins, but cannot rule out the presence of a low level M protein 06/03/2022 Related Organ or Tissue Involvement (CRAB) or other Myeloma Defining Event (MDE): Anemia (HgB < 10g/dL or 2g/dL below LLN), actual value: 9.1 g/dL Antecedent plasma cell dyscrasia: No Myeloma FISH panel: Cytogenetics: LDH: 156 U/L (100 - 220) ISS stage: Albumin: 2.9 g/dL, B2M: 2.7 mg/L [place] Stage: Monoclonal proteins at diagnosis: Serum M-spike: 0.00 gm/dL, kappa serum free light chains: 35.6 mg/L, lambda serum free light chains: 397.8 mg/L, Urinary m-protein: an atypical restricted band is present in the lambda region. The presence of free lambda light chains in the urine is consistent with a lambda-containing monoclonal gammopathy, Urinary protein excretion: 0.07 g/24hrs, Urinary albumin: 31.43 %, and Urinary m-protein present Not measurable Total immunoglobulins at diagnosis: IgG 244 mg/dL, IgA 31 mg/dL, IgM 16 mg/dL Bone marrow plasma cell infiltration: % Systemic treatment and disease course -No prior systemic therapy Local treatments (radiation, surgery, kyphoplasty) -No prior local therapy History of prior work up illness (Dr. 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 Patient apparently had been referred to nephrology for anasarca and to evaluate for nephrotic syndrome. She had been hospitalized in February 2022 and seen by hematology for anemia and nephrology for hypoalbuminemia and anasarca. Her albumin was low at 2.5 and Hgb 8.8 in February 2022. A 24 hour urine protein showed just 55 mg of protein and no M spike on UIFE. Patient had been trying to increase her protein intake and was on a fluid restricted diet. She continued to have significant edema. She was intolerant to Bumex as it caused dizziness and slurred speech. She was discharged on Lasix 20 mg daily. She saw GI for elevated liver function tests -- viral hepatitis studies were unremarkable. Apparently a colonoscopy had been attempted (patient says on three occasions), with poor prep. She was told she had problems with malabsorption. An abdominal ultrasound on 12/29/2021 showed normal liver and no ascites. CT of the abdomen from 03/18/2022 was unremarkable. CK was elevated at 700 but with elevated myoglobin at 86 (normal 25-58). Urine free light chains apparently showed a Bence Gallegos protein, but on repeat was negative when evaluated by hematology. On 05/10/2022, Hgb 9.8 with creatinine 0.96 (up from baseline a few months prior ~0.5), BUN 44, potassium 4.7 while on Lasix 20 mg daily. CRP and ESR may have been mildly elevated in the past. Patient complained of generalized weakness, fatigue, not being able to do her daily chores at home. Exam was notable for 4+ pitting edema in the legs, a resting tremor. Patient's elevated creatinine and BUN were explained by diuretic therapy. Some immunologic serologies were ordered given concern for myositis with elevated CK. Patient was encouraged to continue Lasix. She was also encouraged to follow-up with hematology regarding anemia. This visit, patient confirms the above history. She elaborates that her symptoms began about a year ago, when she went to the ED and was told her serum protein was low. She says the swelling is mostly in her legs, but she also has noticed some swelling along the left breast and left upper extremity. She has been increasing her protein intake - consuming 90 mg protein through her diet and an additional 45 g through supplemental protein shakes. She tells me no significant proteinuria has been identified in her urine. Regarding a possible protein losing enteropathy, she endorses a history of small intestinal bacterial overgrowth (SIBO) characterized by bloating and constipation; she denies diarrhea or loose stools. She reports having tried rifaxamin without improvement. She denies a history of congestive heart failure and reports having had a normal echocardiogram. A BNP was checked on 03/15/2022 and was minimally elevated at 117.2 pg/mL (ref range 0-100). She has gained a lot of weight, due to fluid retention with third spacing, as she is severely hypoalbuminemic. She has also had negative testing for SAYRA by IFA (05/18/2022), ANCA (05/12/2022), normal serum complements (C3 & C4), normal CRP (<2.90) and slightly elevated ESR (33) on 05/12/22. CK was elevated at 283 (05/12/22). Iron studies have been consistent with iron deficiency, for which patient reports having had iron infusions. Ferritin 14 L, iron 34 L, iron saturation 8.1% L, TIBC 419 (05/20/22). Regarding her iron deficiency, she denies hematochezia, melena, gross hematuria, hemoptysis, or a family history of cancer. As mentioned above, she had a CT chest, abdomen, and pelvis on 03/18/2022 which was apparently negative. Regarding her elevated CK level, she relates generalized muscle weakness, which is most pronounced in the legs as opposed to the upper extremities. She is essentially bed-bound at this time. She is unable to perform activities of daily living without assistance. Her vitamin B12 has actually been very high, but she attributes this to having previously been taking a B complex vitamin. She has had an abnormally low serum kappa/lambda ratio of 0.13 (normal 0.26 - 1.65) on 05/20/2022. All of her serum immunoglobulins have been low (IgA 40, IgG 251, IgM 18) on 05/20/2022. Her TSH was elevated to 11.40 but with normal free T4 of 1.10 on 05/20/2022. She has a history of hypothyroidism and takes levothyroxine. She reports a past history of having taken [place] thyroid. Cflim-7-[id number] serum was normal at 212 mg/dL on 05/19/2022. Other labs from 05/20/2022 reveal CHANO with negative M spike. Low total protein at 4.9, and an abnormal kappa/lambda ratio of 0.13. Patient's sister is concerned that she might have an unusual form of multiple myeloma, presenting as lymphedema (she brought a copy of the paper to the visit today). Patient and her family want to see hematology for additional work-up, including bone marrow biopsy. Other labs, from 06/01/22 show CBC with WBC 6.4, Hgb 9.0 (MCV 94.2), Plt 170. CBC diff with anisocytosis, target cells. Cr 0.73, BUN 36, CO2, Na 142, K 4.0, CO2 31. AST 84, ALT 85, albumin 2.0. Normal FT4 and low FT3. Haley says she is a 'very sensitive person.' She used to take '22 supplements,' but is taking a lot less now. She denies history of vegan diet; she has a good appetite and reports a robust balanced diet. She endorses a strong family history of Margot's thyroiditis, but denies other autoimmune disease. 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 She reports being up-to-date with age-appropriate cancer screening and had a mammogram within the past few years, PAP one year ago. She says her grandmother from colon cancer. Haley denies fevers or chills. She does have some cold sweats at night. She is gaining 1 lb per day. She denies photosensitivity. She denies dry eye. She has dry mouth which she attributes to fluid restriction. She denies oral or nasal ulcers. She denies malar rash. She does endorse a rash on her abdomen. She denies gross hematuria or frothy urine. She endorses a history of SIBO and bloating with constipation, as discussed above. She denies joint pain. She relates some chronic sinus issues. She endorses a dry cough, but denies hemoptysis. She denies raynaud's phenomenon, digital ulcerations. She does have some shortness of breath. She has some mild heartburn. Denies hematochezia or melena. She endorses imbalance and tremor. Interim updates: 07/08/2022: The patient presents for further evaluation and management of what he is principally anasarca related to hypoalbuminemia of unclear etiology. Similar to the initial history noted above, the patient at today's visit denies a history of significant diarrhea that 1 would expect in a malabsorptive syndrome or protein-losing enteropathy. As noted above, there is no evidence of heavy proteinuria that would be suggestive of amyloid renal involvement or another glomerular disorder leading to nephrotic syndrome. 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 No formal testing of the adrenal axis is evidence to me on my chart review. Patient notes that she is planned for repeat colonoscopy and her sister, who accompanies her during the visit, strongly convinced that this will disclose evidence of amyloidosis. In terms of amyloid agenic symptoms, the patient denies any tongue swelling, new rash, dizziness, lightheadedness, palpitations, dyspnea, orthopnea, or PND. Her NT pro BNP was within the reference range as of 06/03/2022. There is no echocardiogram for me to review at present. Her most recent paraprotein work-up reveals an unremarkable immunofixation, a significantly elevated lambda serum free light chain to 397 mg/L with a KL ratio of 0.09, benito hypogammaglobulinemia, and a 24-hour urine protein that is within the reference range. I do not see a completed urine protein electrophoresis to assess for Bence-Gallegos proteinuria. There is evidence of anemia, with a hemoglobin of 9.2 g/dl that is normocytic. There is no evidence of leukopenia or thrombocytopenia. Serum calcium and serum creatinine are within the reference ranges. The patient underwent a bone survey on 06/21/2022 that did not disclose evidence of lytic lesions. She has not had cross-sectional imaging to assess for osseous or extraosseous disease. Veg F levels have not been assessed and no fat pad biopsy has been completed. Iron studies as of 3 weeks ago showing normal TIBC and transferrin saturation. Ferritin levels were elevated to 1183 ng/mL. A broad micronutrient panel including vitamin B12, vitamin D, and copper is unremarkable. One symptoms of note that she does complain of is bilateral lower extremity neuropathy. She acknowledges bilateral lower extremity paresthesias to the level of the mid ankle with onset around the time of anasarca. These do not follow any particular dermatomal distribution. She denies significant pain or lower extremity weakness. 08/12/22: In the interim since our last visit, the patient underwent a fat pad biopsy that was unremarkable for evidence of amyloidosis. She also underwent an EGD and colonoscopy that disclosed mild gastritis. Biopsies from her endoscopies are pending. She notes that her fatigue and anasarca continue to worsen. She is tired enough on some days that she cannot walk to her car. She denies guy dyspnea, orthopnea, PND or palpitations. Her albumin remains low without evidence of diarrhea or proteinuria. Of note, her VEGF level was within the reference range. PET/CT scan revealed no evidence of osseous lytic disease. 09/10/2022: I discussed the results of the patient's MRI, which demonstrated approximately 2.0 cm marrow base lesions in the left and right ilium that are likely myelomatous. Patient itself is actually feeling better with reduced edema and anasarca. She denies fevers, chills, night sweats, nausea, vomiting, diarrhea, mucosal bleeding, or significant weight changes. Her coagulation parameters do not demonstrate evidence of synthetic liver dysfunction. Her hemoglobin remained stable and I do not have another ready explanation for her anemia. Unfortunately, her repeat bone marrow biopsy demonstrated inadequate cellularity. 09/23/2022: Patient presents to discuss initiation of therapy. Over the past 2 weeks, she has noted an improvement in her bilateral lower extremity edema to the extent that she has reduced her dose of furosemide at home. Her hemoglobin has improved by 1 g/dl, which may reflect hemoconcentration. Her bone marrow biopsy unfortunately yielded low cellularity as noted above. 11/23/2022: Patient returns for evaluation management of her underlying smoldering multiple myeloma. Continues her last visit, she notes that her energy levels improved, no lower extremity edema has also been less pronounced. She denies fevers, chills, night sweats, nausea, vomiting, diarrhea, significant weight changes, and lymphadenopathy. Her involved serum free light chain had been declining without intervention at her last check. 02/24/23: The patient reports that her edema has nearly resolved. She has augmented her dietary intake of protein and followed a ketogenic diet since our last visit with concomitant increase in her albumin. Her abdominal pain and loose stools have also improved during this time. Paraprotein labs reveal continued spontaneous decline in her involved serum free light chain. 04/22/23: In the interim since her last visit, the patient denies fevers, chills, night sweats, nausea, vomiting, diarrhea, and further peripheral edema. Overall she feels well but is still struggling with her irritable bowel syndrome symptoms on a daily basis. Her paraprotein labs demonstrate a stable monoclonal free light chain and no evidence of worsening anemia, renal dysfunction, or hypercalcemia. 07/14/23: In the interim since her last visit, the patient's paraprotein labs demonstrate a stable lambda serum free light chain and a stable free light chain ratio. She remains hypogammaglobulinemic. There is no evidence of monoclonal paraprotein by protein electrophoresis. Immunofixation remains faintly positive for monoclonal lambda paraprotein as expected. There is no evidence of renal disease, anemia, or hypercalcemia. She denies fevers, chills, night sweats, nausea, vomiting, diarrhea, and worsening or new onset anasarca. 10/13/23: In interim since her last visit, the patient went a PET/CT scan that did not demonstrate any evidence of active multiple myeloma. Her involved serum free light chain continues to decline from peak of ~400 mg/L approximately one year ago. She remains hypogammaglobulinemic. She has no evidence of an intact monoclonal paraprotein by protein electrophoresis. There is no evidence of renal dysfunction, hypercalcemia, and bone disease. 01/13/24: By video visit, the patient acknowledges that her lower extremity edema has entirely resolved. She has occasional fatigue but otherwise excellent exercise capacity. She denies fevers, chills, night sweats, nausea, vomiting, diarrhea, and new rash. Immunofixation remains negative and her lambda serum free light chain is steadily declining without any further intervention. She remains hypogammaglobulinemic without evidence of recurrent infection. There is no evidence of worsening anemia, renal dysfunction or hypercalcemia. She stringently denies neuropathy. 07/13/24: In the interim since her last visit, the patient developed persistent continued. She was worked up by commanding officer traffic division and normal thyroid function. Recent CBC demonstrates new onset microcytic anemia with a ferritin of 7 ng/dL. Recent occult blood test in her stool were positive on 2 occasions. Her head golf coach instructed her not to take iron as it would worsen her cancer. Terms of her paraprotein labs, her involved serum free light chain is essentially stable from 12 months ago. There is no evidence of worsening renal function or hypercalcemia. She is currently waiting for colonoscopy at her local hospital but does not know when it can be done as been told it may not be due until September. Review of systems General: No fever , No chills, and No night sweats HEENT: No lumps, no difficulty chewing or swallowing, no enlarging tongue, no tooth aches. Musculoskeletal: See above Hematological: No bleeding or easy bruising. Lymphatic / Immune system: No lymph node enlargement or infection. Cardiovascular: No orthopnea, no dyspnea, no chest pain, no leg edema, no palpitations. Pulmonary: No dyspnea, no wheezing, no cough. PAST MEDICAL HISTORY Diagnosis Date Anxiety state, unspecified Depressive disorder, not elsewhere classified IBS (irritable bowel syndrome) Multiple chemical sensitivity syndrome Small intestinal bacterial overgrowth (SIBO) PAST SURGICAL HISTORY Procedure Laterality Date TOOTH EXTRACTION Allergies / intolerances ALLERGIES Allergen Reactions Amoxicillin Other: See Comments Codeine Other: See Comments Flavoring Agent (Bu* Other: See Comments Lactose Other: See Comments Peppermint Flavor Other: See Comments Medications ARMOUR THYROID 30 mg tablet Take 1 tablet 5 days a week. Take 2 tablets 2 days a week. OTC PRODUCT Food enzymes 3x daily acetylcysteine (ACET-CYS) Take 1,000 mg by mouth once daily. cholecalciferol, vitamin D3, (D3-2000 ORAL) Take 2,000 mg by mouth once daily. Lactobacillus acidophilus (PROBIOTIC) 10 billion cell cap Take 133 capsules by mouth daily at bedtime. Social History Tobacco Use Smoking status: Never Smokeless tobacco: Never Vaping Use Vaping status: Never Used Substance Use Topics Alcohol use: No Drug use: No FAMILY HISTORY Problem Relation Age of Onset Osteoporosis Mother Heart Mother afib GI Father IBS Margot Disease Sister other (environmental sensitivities [Other]) Sister both sisters Laboratory tests WBC (k/uL) Date Value 07/06/2024 4.74 01/06/2024 5.93 10/04/2023 7.25 07/07/2023 6.39 04/21/2023 10.94 02/14/2023 6.71 11/24/2022 9.04 10/25/2022 7.83 09/27/2022 8.03 09/23/2022 6.73 Abs Neut (k/uL) Date Value 07/06/2024 3.55 01/06/2024 4.04 10/04/2023 5.42 07/07/2023 4.55 04/21/2023 9.13 02/14/2023 4.56 11/24/2022 6.84 10/25/2022 5.64 09/27/2022 6.12 09/23/2022 4.92 Hemoglobin (g/dL) Date Value 07/06/2024 8.2 01/06/2024 10.5 10/04/2023 11.6 07/07/2023 9.9 04/21/2023 10.4 02/14/2023 12.0 11/24/2022 10.8 10/25/2022 10.2 09/27/2022 10.0 09/23/2022 10.4 Platelet Count (k/uL) Date Value 07/06/2024 328 01/06/2024 342 10/04/2023 294 07/07/2023 301 04/21/2023 298 02/14/2023 316 11/24/2022 343 10/25/2022 301 09/27/2022 261 09/23/2022 304 Glucose (mg/dL) Date Value 07/06/2024 94 01/06/2024 102 10/04/2023 105 07/07/2023 95 04/21/2023 103 02/14/2023 105 11/24/2022 114 10/25/2022 102 09/27/2022 76 09/23/2022 107 Creatinine (mg/dL) Date Value 07/06/2024 0.57 01/06/2024 0.82 10/04/2023 0.61 07/07/2023 0.80 04/21/2023 0.89 02/14/2023 0.66 11/24/2022 0.71 10/25/2022 0.70 09/27/2022 0.95 09/23/2022 1.30 Calcium, Total (mg/dL) Date Value 07/06/2024 10.1 01/06/2024 10.1 10/04/2023 10.0 07/07/2023 9.9 04/21/2023 9.9 02/14/2023 9.8 11/24/2022 9.4 10/25/2022 9.0 09/27/2022 8.8 09/23/2022 9.1 M-Protein Concentration (g/dL) Date Value 07/06/2024 0.00 01/06/2024 0.00 10/04/2023 0.00 07/07/2023 0.00 04/21/2023 0.00 02/14/2023 0.00 11/24/2022 0.00 10/25/2022 0.00 09/23/2022 0.00 08/27/2022 0.00 06/21/2022 0.00 06/03/2022 0.00 M Gee Quant, 24 Hr Urine (g/24hr) Date Value 06/26/2022 0.00 [place] Free, Serum (mg/L) Date Value 07/06/2024 17.5 01/06/2024 13.1 10/04/2023 12.8 07/07/2023 14.2 04/21/2023 13.0 02/14/2023 16.2 11/24/2022 19.2 10/25/2022 22.2 09/23/2022 29.8 08/27/2022 40.2 06/21/2022 35.6 06/03/2022 34.8 Lambda Free, Serum (mg/L) Date Value 07/06/2024 140.2 01/06/2024 97.6 10/04/2023 102.3 07/07/2023 125.8 04/21/2023 129.1 02/14/2023 123.3 11/24/2022 135.8 10/25/2022 184.9 09/23/2022 268.8 08/27/2022 329.7 06/21/2022 397.8 06/03/2022 384.6 Interpretation (MPA) (no units) Date Value 07/07/2023 Poorly defined region of restricted mobility in the lambda fadi. Pattern is less well defined or fainter than typically seen in monoclonal gammopathy. This could represent either an atypical presentation of polyclonal immunoglobulins or the presence of a low level lambda containing monoclonal gammopathy. If clinically indicated, urine monoclonal protein analysis and serum free light chain measurements are recommended to evaluate further for monoclonal gammopathy. Clinical correlation is necessary. 02/14/2023 Poorly definded region of restricted mobility in IgG and lambda lanes. Pattern is less well defined or fainter than typically seen in monoclonal gammopathy. This could represent either an atypical presentation of polyclonal immunoglobulins or the presence of a low level IgG lambda monoclonal gammopathy. If clinically indicated, urine monoclonal protein analysis and serum free light chain measurements are recommended to evaluate further for monoclonal gammopathy. Clinical correlation is necessary. 06/03/2022 Poorly defined region of restricted mobility in the lambda fadi. Pattern is less well defined or fainter than typically seen in monoclonal gammopathy. This could represent either an atypical presentation of polyclonal immunoglobulins or the presence of a low level lambda containing monoclonal gammopathy. Imaging To be obtained Pathology: Bone marrow biopsy in progress Impression and Plan Cancer Staging No matching staging information was found for the patient. ##Monoclonal gammopathy of undetermined significance, lambda light chain subtype Cytogenetic risk category: Pending Frailty Score: 0 IMWG Response Criteria: Newly diagnosed Renal: Normal creatinine, clinically no evidence for renal dysfunction. Infectious diseases: No current infection, no need for prophylaxis Musculoskeletal: No current pain, no new lesions suspected. Bone modifying therapy: Diagnostic work-up pending Venous thromboembolism risk: Diagnostic work-up pending control counseling: Diagnostic work-up pending Neurology: Bilateral lower extremity sensory neuropathy as described above Health maintenance discussed: Regular exercise and Appropriate diet Side effects from current medications: None This is a 59-year-old female with approximately 2 years onset anasarca and hypoalbuminemia but does not adequately explained by either urinary protein losses or protein-losing enteropathy. 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 An initial paraprotein work-up ordered recently revealed an elevated lambda serum free light chain with a ratio of 0.09 in the context of anemia that has not been fully explained by micronutrient deficiency. There was no evidence of hemolysis at the time of diagnosis and her anemia has improved. An MRI of the spine and pelvis obtained approximately one year ago demonstrated multiple marrow base lesions in the pelvis that are greater than 5 mm. At that time, a PET/CT scan was unremarkable. We discussed the definition of multiple myeloma including the IMWG 2014 criteria. Bone marrow biopsy demonstrated trace lambda monotypic plasma cells. Patient presents with continued today in the context of a ferritin of 7, new onset microcytic anemia, and positive stool occult blood. I am ordering her colonoscopy and EGD to be completed at our site as soon as possible. Her light chains are stable. There is no evidence of endorgan damage directly attributable to her underlying plasma cell clone. At her request, we will defer IV iron but she will begin oral iron supplementation. Should her hemoglobin fail to improve with adequate iron repletion, we will consider a bone marrow biopsy at that point. Following colonoscopy, consider repeat PET/CT scan. Plan Summary: -Defer initiation of plasma cell directed therapy at present. -Fat pad biopsy negative; EMG and liver biopsy to be deferred at the moment due to improving symptoms -EGD and colonoscopy to be completed at our site as soon as feasible -Patient will begin oral iron supplementatio. -Repeat paraproteins in 2 months -RTC in 2 months oJhanna Mandel MD, [facility] Hematology and Medical Oncology [facility] [address], [place] [facility] [address] CC: Dr. Mike Aguilar, Dr. Jenna Trevino I spent a total of 30 minutes on the date of the service which included preparing to see the patient, [id number] patient care, completing clinical documentation, and obtaining and/or reviewing separately obtained history. documented in this encounter [facility] 07-04-2024 Note HNO ID: [id number] Author: HILARIA COX MD Service: ? Author Type: Physician Type: Progress Notes Filed: 07/06/2024 15:41 Note Text: DISTANCE HEALTH VISIT This Team Access Model visit is a virtual encounter (ITemat audio/video, Zoom). It required patient-provider interaction for the medical decision making as documented below. I have communicated my name and active licensure. The patient's identity and physical location were verified at the time of this visit. Either the patient or their legal sales and merchandising representative has been informed of the risks and benefits of -- and alternatives to -- treatment through a remote evaluation and consents to proceed with the evaluation remotely. Haley Glez is a 59 year old female seen for hypothyroidism. PMH of anxiety, depression, IBS and multiple myeloma. She was on [place] [id number]. Patient then did not need thyroid medication. She was hospitalized in 2021 with leg swelling and thyroid levels were off. She was started on levothyroxine. She was diagnosed with multiple myeloma 2022. Patient is maintained on levothyroxine 50 mc tablet 5 days a week and 2 tablets on Mondays and Fridays- this is equivalent to a daily LT4 dose of 64 mcg. She takes thyroid medication in the morning around 6. She drinks green tea in the afternoon. Patient is fatigued. She had +occult stool test. Patient is planned for colonoscopy. Patient reports thyroid function tests at [facility] 05/2024 as follows: TSH of 1.870 (0.3-4.2) normal Free T4 1.4 ng/dL (0.76-1.46) normal Total T4 7.1 (4.8-13.9) normal Free T3 1.4 pg/mL (2.18-3.98) LOW Total T3 0.36 (0.80-2.0) LOW TPO antibody 31 (0-34) normal Reverse T3 21.6 (9.2-24.1) normal T3 uptake 29% (24-39) normal Cortisol 22.7 (elevated) HISTORY REVIEWED (electronic chart updated): PAST MEDICAL HISTORY Diagnosis Date Anxiety state, unspecified Depressive disorder, not elsewhere classified IBS (irritable bowel syndrome) Multiple chemical sensitivity syndrome Small intestinal bacterial overgrowth (SIBO) Current Outpatient Medications on File Prior to Visit Medication Sig levothyroxine (SYNTHROID) 50 mcg tablet Take 50 mcg by mouth once daily. 100 mcg 5 days a week. Other two days 50mcg. OTC PRODUCT Food enzymes 3x daily acetylcysteine (ACET-CYS) Take 1,000 mg by mouth once daily. cholecalciferol, vitamin D3, (D3-2000 ORAL) Take 2,000 mg by mouth once daily. Lactobacillus acidophilus (PROBIOTIC) 10 billion cell cap Take 133 capsules by mouth daily at bedtime. No current facility-administered medications on file prior to visit. ALLERGIES Allergen Reactions Amoxicillin Other: See Comments Codeine Other: See Comments Flavoring Agent (Bu* Other: See Comments Lactose Other: See Comments Peppermint Flavor Other: See Comments REVIEW OF SYSTEMS Constitutional: Positive for: Recent weight change Negative for: Night sweats Skin: ENT: Eyes: Positive for: Visual disturbance Cardiovascul ar: Chest pain and Leg swelling Respiratory: Negative for: Difficulty breathing Gastrointestinal: nausea and diarrhea Musculoskeletal: Positive for: Arthralgias Neurological: Positive for: Headaches and Dizziness Genitourinary: Answers submitted by the patient for this visit: Endocrine Review of Systems (Submitted on 07/02/2024) Fatigue: Yes Skin Color Changes: No Post-Nasal Drip: Yes Thyroid Pain (lower neck): No Trouble Swallowing: No Blood Clots?: No Leg Pain while walking?: No Heartburn: Yes Vomiting: No Constipation: No Abdominal pain: Yes Bone Pain?: No Muscle weakness: No Numbness?: No Urgency to Urinate?: Yes Increased Urination: Yes Slow or Small Urine Stream?: No Are your menstrual cycles regular?: No Are your menstrual cycles irregular?: Yes Have your menstrual cycles stopped?: Yes Flushing: Yes Hot Flashes?: Yes Increased Thirst: Yes Change in Body Hair?: Yes Cold Intolerance: Yes Heat Intolerance: Yes PHYSICAL EXAMINATION: VIDEO EXAM: (if done, performed via video enabled technology) GENERAL: alert and appropriate, in no distress, well-hydrated, well nourished, happy, smiling, interactive, and appears tired SKIN: pale NECK: thyroid without tenderness or obvious enlargement/mass RESPIRATORY: breathing non-labored CHEST: equal chest rise with normal respiratory effort LABS: Latest Ref Rng 06/03/2022 06/21/2022 TSH 0.270 - 4.200 mIU/L 5.930 (H) 4.860 (H) Free T3 2.3 - 4.1 pg/mL 1.8 (L) Latest Ref Rng 06/03/2022 THYROID PEROXIDASE ANTIBODY <5.6 IU/mL <3.0 Thyroglobulin Ab, Serum <4.0 IU/mL <0.9 Labs 05/29/2024 at [facility]. Patient reports TSH of 1.870 (0.3-4.2) Free T4 1.4 ng/dL (0.76-1.46) Total T4 7.1 (4.8-13.9) Free T3 1.4 pg/mL (2.18-3.98) LOW Total T3 0.36 (0.80-2.0) TPO antibody 31 (0-34) Reverse T3 21.6 (9.2-24.1) T3 uptake 29% (24-39) Cortisol 22.7 (elevated) ASSESSMENT: 59 yo female with: (E03.9) Acquired hypothyro (more content not included)... [facility] 07-04-2024 History of Present illness Narrative DISTANCE HEALTH VISIT This Team Access Model visit is a virtual encounter (ITemat audio/video, Zoom). It required patient-provider interaction for the medical decision making as documented below. I have communicated my name and active licensure. The patient's identity and physical location were verified at the time of this visit. Either the patient or their legal sales and merchandising representative has been informed of the risks and benefits of -- and alternatives to -- treatment through a remote evaluation and consents to proceed with the evaluation remotely. Haley Glez is a 59 year old female seen for hypothyroidism. PMH of anxiety, depression, IBS and multiple myeloma. She was on [place] [id number]. Patient then did not need thyroid medication. She was hospitalized in 2021 with leg swelling and thyroid levels were off. She was started on levothyroxine. She was diagnosed with multiple myeloma 2022. Patient is maintained on levothyroxine 50 mc tablet 5 days a week and 2 tablets on Mondays and Fridays- this is equivalent to a daily LT4 dose of 64 mcg. She takes thyroid medication in the morning around 6. She drinks green tea in the afternoon. Patient is fatigued. She had +occult stool test. Patient is planned for colonoscopy. Patient reports thyroid function tests at [facility] 05/2024 as follows: TSH of 1.870 (0.4-4.2) normal Free T4 1.4 ng/dL (0.76-1.46) normal Total T4 7.1 (4.8-13.9) normal Free T3 1.4 pg/mL (2.18-3.98) LOW Total T3 0.36 (0.80-2.0) LOW TPO antibody 31 (0-34) normal Reverse T3 21.6 (9.2-24.1) normal T3 uptake 29% (24-39) normal HISTORY REVIEWED (electronic chart updated): PAST MEDICAL HISTORY Diagnosis Date Anxiety state, unspecified Depressive disorder, not elsewhere classified IBS (irritable bowel syndrome) Multiple chemical sensitivity syndrome Small intestinal bacterial overgrowth (SIBO) Current Outpatient Medications on File Prior to Visit Medication Sig levothyroxine (SYNTHROID) 50 mcg tablet Take 50 mcg by mouth once daily. 100 mcg 5 days a week. Other two days 50mcg. OTC PRODUCT Food enzymes 3x daily acetylcysteine (ACET-CYS) Take 1,000 mg by mouth once daily. cholecalciferol, vitamin D3, (D3-2000 ORAL) Take 2,000 mg by mouth once daily. Lactobacillus acidophilus (PROBIOTIC) 10 billion cell cap Take 133 capsules by mouth daily at bedtime. No current facility-administered medications on file prior to visit. ALLERGIES Allergen Reactions Amoxicillin Other: See Comments Codeine Other: See Comments Flavoring Agent (Bu* Other: See Comments Lactose Other: See Comments Peppermint Flavor Other: See Comments REVIEW OF SYSTEMS Constitutional: Positive for: Recent weight change Negative for: Night sweats Skin: ENT: Eyes: Positive for: Visual disturbance Cardiovascul ar: Chest pain and Leg swelling Respiratory: Negative for: Difficulty breathing Gastrointestinal: nausea and diarrhea Musculoskeletal: Positive for: Arthralgias Neurological: Positive for: Headaches and Dizziness Genitourinary: Answers submitted by the patient for this visit: Endocrine Review of Systems (Submitted on 07/02/2024) Fatigue: Yes Skin Color Changes: No Post-Nasal Drip: Yes Thyroid Pain (lower neck): No Trouble Swallowing: No Blood Clots?: No Leg Pain while walking?: No Heartburn: Yes Vomiting: No Constipation: No Abdominal pain: Yes Bone Pain?: No Muscle weakness: No Numbness?: No Urgency to Urinate?: Yes Increased Urination: Yes Slow or Small Urine Stream?: No Are your menstrual cycles regular?: No Are your menstrual cycles irregular?: Yes Have your menstrual cycles stopped?: Yes Flushing: Yes Hot Flashes?: Yes Increased Thirst: Yes Change in Body Hair?: Yes Cold Intolerance: Yes Heat Intolerance: Yes PHYSICAL EXAMINATION: VIDEO EXAM: (if done, performed via video enabled technology) GENERAL: alert and appropriate, in no distress, well-hydrated, well nourished, happy, smiling, interactive, and appears tired SKIN: pale NECK: thyroid without tenderness or obvious enlargement/mass RESPIRATORY: breathing non-labored CHEST: equal chest rise with normal respiratory effort LABS: Latest Ref Rng 06/03/2022 06/21/2022 TSH 0.270 - 4.200 mIU/L 5.930 (H) 4.860 (H) Free T3 2.3 - 4.1 pg/mL 1.8 (L) Latest Ref Rng 06/03/2022 THYROID PEROXIDASE ANTIBODY <5.6 IU/mL <3.0 Thyroglobulin Ab, Serum <4.0 IU/mL <0.9 Labs 05/29/2024 at [facility]. Patient reports TSH of 1.870 (0.4-4.2) Free T4 1.4 ng/dL (0.76-1.46) Total T4 7.1 (4.8-13.9) Free T3 1.4 pg/mL (2.18-3.98) LOW Total T3 0.36 (0.80-2.0) TPO antibody 31 (0-34) Reverse T3 21.6 (9.2-24.1) T3 uptake 29% (24-39) ASSESSMENT: 59 yo female with: (E03.9) Acquired hypothyroidism (primary encounter diagnosis) Patient reports normal TSH and free T4 but low free/total T3 levels on current dose of levothyroxine. She will attach the lab report and send it to me via [place]. She is tired in the setting of +occult blood stool test and is planned for a colonoscopy. She would like to be switched to [place] which she took in the past for 10 years and felt well on. PLAN: Switch from current LT4 dose of 64 mcg daily to an equivalent [place] dose: take 30 mg 5 days a week and 60 mg 2 days a week. Obtain TSH, free T4 and free T3 in 6 weeks. Follow up in clinic in 6 months. Hilaria Cox MD documented in this encounter [facility] 06-27-2024 Evaluation note Diagnosis Onset Date Resolution Iron deficiency anemia acute Ap ril 2024 2:22pm Multiple myeloma acute June 2:22pm [facility] Work Phone: 1(471) 226-634410-21-2024 NoteHNO ID: [id number] Author: JOHANNA MANDEL MD Service: ? Author Type: Physician Type: Progress Notes Filed: 01/16/2024 13:49 Note Text: [facility] (Elements copied from Shauna White's note dated 06/21/22, have been reviewed and updated where appropriate, and all reflect current assessment and medical decision making during today's encounter, January 16, 2024) Reason for visit: Consult, referred by Shauna White for possible monoclonal gammopathy of renal signifiance. My recommendations to the consult requesting physician are communicated via the shared electronic medical record or US mail. This visit was conducted by Zoom. 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 Baseline assessment on initial diagnosis date 2022 Cancer Staging No matching staging information was found for the patient. No matching staging information was found for the patient. 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 and may represent an unusual presentation of polyclonal immunoglobulins, but cannot rule out the presence of a low level M protein 06/03/2022 Related Organ or Tissue Involvement (CRAB) or other Myeloma Defining Event (MDE): Anemia (HgB < 10g/dL or 2g/dL below LLN), actual value: 9.1 g/dL Antecedent plasma cell dyscrasia: No Myeloma FISH panel: Cytogenetics: LDH: 156 U/L (100 - 220) ISS stage: Albumin: 2.9 g/dL, B2M: 2.7 mg/L [place] Stage: Monoclonal proteins at diagnosis: Serum M-spike: 0.00 gm/dL, kappa serum free light chains: 35.6 mg/L, lambda serum free light chains: 397.8 mg/L, Urinary m-protein: an atypical restricted band is present in the lambda region. The presence of free lambda light chains in the urine is consistent with a lambda-containing monoclonal gammopathy, Urinary protein excretion: 0.07 g/24hrs, Urinary albumin: 31.43 %, and Urinary m-protein present Not measurable Total immunoglobulins at diagnosis: IgG 244 mg/dL, IgA 31 mg/dL, IgM 16 mg/dL Bone marrow plasma cell infiltration: % Systemic treatment and disease course -No prior systemic therapy Local treatments (radiation, surgery, kyphoplasty) -No prior local therapy History of prior work up illness (Dr. 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 Patient apparently had been referred to nephrology for anasarca and to evaluate for nephrotic syndrome. She had been hospitalized in February 2022 and seen by hematology for anemia and nephrology for hypoalbuminemia and anasarca. Her albumin was low at 2.5 and Hgb 8.8 in February 2022. A 24 hour urine protein showed just 55 mg of protein and no M spike on UIFE. Patient had been trying to increase her protein intake and was on a fluid restricted diet. She continued to have significant edema. She was intolerant to Bumex as it caused dizziness and slurred speech. She was discharged on Lasix 20 mg daily. She saw GI for elevated liver function tests -- viral hepatitis studies were unremarkable. Apparently a colonoscopy had been attempted (patient says on three occasions), with poor prep. She was told she had problems with malabsorption. An abdominal ultrasound on 12/29/2021 showed normal liver and no ascites. CT of the abdomen from 03/18/2022 was unremarkable. CK was elevated at 700 but with elevated myoglobin at 86 (normal 25-58). Urine free light chains apparently showed a Bence Gallegos protein, but on repeat was negative when evaluated by hematology. On 05/10/2022, Hgb 9.8 with creatinine 0.96 (up from baseline a few months prior ~0.5), BUN 44, potassium 4.7 while on Lasix 20 mg daily. CRP and ESR may have been mildly elevated in the past. Patient complained of generalized weakness, fatigue, not being able to do her daily chores at home. Exam was notable for 4+ pitting edema in the legs, a resting tremor. Patient's elevated creatinine and BUN were explained by diuretic therapy. Some immunologic serologies were ordered given concern for myositis with elevated CK. Patient was encouraged to continue Lasix. She was also encouraged to follow-up with hematology regarding anemia. This visit, patient confirms the above history. She elaborates that her symptoms began about a year ago, when she went to the ED and was told her serum protein was low. She says the swelling is mostly in her legs, but she also has noticed some swelling along the left breast and left upper extremity. She has been increasing her protein intake - consuming 90 mg protein through her diet and an additional 45 g through supplemental protein shakes. She tells me no significant proteinuria has been identified in her urine. Regarding a possible protein losing enteropathy, she endorses a history of small intestinal bacterial overgrowth (SIBO) characterized by bloating and constipation; she denies di (more content not included)...[facility]10-21-2024 History of Present illness Narrative* Johanna Mandel MD - 01/16/2024 1:42 PM EDT Images from the original note were not included. 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 My recommendations to the consult requesting physician are communicated via the shared electronic medical record or US mail. This visit was conducted by Zoom. 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 Baseline assessment on initial diagnosis date 2022 Cancer Staging No matching staging information was found for the patient. No matching staging information was found for the patient. 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 and may represent an unusual presentation of polyclonal immunoglobulins, but cannot ruleout the presence of a low level M protein 06/03/2022 Related Organ or Tissue Involvement (CRAB) or other Myeloma Defining Event (MDE): Anemia (HgB < 10g/dL or 2g/dL below LLN), actual value: 9.1 g/dL Antecedent plasma cell dyscrasia: No Myeloma FISH panel: Cytogenetics: LDH: 156 U/L (100 - 220) ISS stage: Albumin: 2.9 g/dL, B2M: 2.7 mg/L [place] Stage: Monoclonal proteins at diagnosis: Serum M-spike: 0.00 gm/dL, kappa serum free light chains: 35.6 mg/L, lambda serum free light chains: 397.8 mg/L, Urinary m- protein: an atypical restricted band is present in the lambda region. The presence of free lambda light chains in the urine is consistent witha lambda- containing monoclonal gammopathy, Urinary protein excretion: 0.07 g/24hrs, Urinary albumin: 31.43 %, and Urinary m-protein present Not measurable Total immunoglobulins at diagnosis: IgG 244 mg/dL, IgA 31 mg/dL, IgM 16 mg/dL Bone marrow plasma cell infiltration: % Systemic treatment and disease course -No prior systemic therapy Local treatments (radiation, surgery, kyphoplasty) -No prior local therapy History of prior work up illness (Dr. 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 Patient apparently had been referred to nephrology for anasarca and to evaluate for nephrotic syndrome. She had been hospitalized in February 2022 and seen by hematology for anemia andnephrology for hypoalbuminemia and anasarca. Her albumin was low at 2.5 and Hgb 8.8 in February 2022. A 24 hour urine protein showed just 55 mg of protein and no M spike on UIFE. Patient had been trying to increase her protein intake and was on a fluid restricted diet. She continued to have significant edema. She was intolerant to Bumex as it caused dizziness and slurred speech. She was discharged on Lasix 20 mg daily. She saw GI for elevated liver function tests -- viral hepatitis studies wereunremarkable. Apparently a colonoscopy had been attempted (patient says on three occasions), with poor prep. She was told she had problems with malabsorption. An abdominal ultrasound on 12/29/2021 showed normal liver and no ascites. CT of the abdomen from 03/18/2022 was unremarkable. CK was elevatedat 700 but with elevated myoglobin at 86 (normal 25-58). Urine free light chains apparently showed a Bence Gallegos protein, but on repeat was negative when evaluated by hematology. On 05/10/2022, Hgb 9.8 with creatinine 0.96 (up from baseline a few months prior ~0.5), BUN 44, potassium 4.7 while on Lasix 20 mg daily. CRP and ESR may have been mildly elevated in the past. Patient complained of generalized weakness, fatigue, not being able to do her daily chores at home. Exam was notable for 4+ pitting edema in the legs, a resting tremor. Patient's elevated creatinine and BUN were explained by diuretic therapy. Some immunologic serologies were ordered given concern for myositis with elevated CK.Patient was encouraged to continue Lasix. She was also encouraged to follow-up with hematology regarding anemia. This visit, patient confirms the above history. She elaborates that her symptoms began about a yearago, when she went to the ED and was told her serum protein was low. She says the swelling is mostly in her legs, but she also has noticed some swelling along the left breast and left upper extremity. She has been increasing her protein intake - consuming 90 mg protein through her diet and an additional 45 g through supplemental protein shakes. She tells me no significant proteinuria has been identified in her urine. Regarding a possible protein losing enteropathy, she endorses a history of small intestinal bacterial overgrowth (SIBO) characterized by bloating and constipation; she denies diar emory or loose stools. She reports having tried rifaxamin without improvement. She denies a history of congestive heart failure and reports having had a normal echocardiogram. A BNP was checked on 03/15/2022 and was minimally elevated at 117.2 pg/mL (ref range 0-100). She has gained a lot of weight,due to fluid retention with third spacing, as she is severely hypoalbuminemic. She has also had negative testing for SAYRA by IFA (05/18/2022), ANCA (05/12/2022), normal serum complements (C3 & C4), normal CRP (<2.90) and slightly elevated ESR (33) on 05/12/22. CK was elevated at 283 (05/12/22). Iron studies have been consistent with iron deficiency, for which patient reports having had iron infusions. Ferritin 14 L, iron 34 L, iron saturation 8.1% L, TIBC 419 (05/20/22). Regarding her iron deficiency, she denies hematochezia, melena, gross hematuria, hemoptysis, or a family history of cancer. As mentioned above, she had a CT chest, abdomen, and pelvis on 03/18/2022 which was apparently negative. Regarding her elevated CK level, she relates generalized muscle weakness, which is most pronounced in the legs as opposed to the upper extremities. She is essentially bed-bound at this time. She is unable to perform activities of daily living without assistance. Her vitamin B12 has actually been very high, but she attributes this to having previously been taking a B complex vitamin. She has had an abnormally low serum kappa/lambda ratio of 0.13 (normal 0.26 - 1.65) on 05/20/2022. All of her serum immunoglobulins have been low (IgA 40, IgG 251, IgM 18) on 05/20/2022. Her TSH was elevated to 11.40 but with normal free T4 of 1.10 on 05/20/2022. She has a history of hypothyroidism and takes levothyroxine. She reports a past history of having taken [place] thyroid. [id number] serum was normal at 212 mg/dL on 05/19/2022. Other labs from 05/20/2022 reveal CHANO with negative M spike. Low total protein at 4.9, and an abnormal kappa/lambda ratio of 0.13. Patient's sister is concerned that she might have an unusual form of multiple myeloma, presenting as lymphedema (she brought a copy of the paper to the visit today). Patient and her family want to see hematology for additional work-up, including bone marrow biopsy. Other labs, from 06/01/22 show CBC with WBC 6.4, Hgb 9.0 (MCV 94.2), Plt 170. CBC diff with anisocytosis, target cells. Cr 0.73, BUN 36, CO2, Na 142, K 4.0, CO2 31. AST 84, ALT 85, albumin 2.0. Normal FT4 and low FT3. Haley says she is a 'very sensitive person.' She used to take '22 supplements,' but is taking a lotless now. She denies history of vegan diet; she has a good appetite and reports a robust balanced diet. She endorses a strong family history of Margot's thyroiditis, but denies other autoimmune disease. 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 She reports being up-to-date with age-appropriate cancer screening and had a mammogram within the past few years, PAP one year ago. She says her grandmother from colon cancer. Haley denies fevers or chills. She does have some cold sweats at night. She is gaining 1 lb per day. She denies photosensitivity. She denies dry eye. She has dry mouth which she attributes to fluidrestriction. She denies oral or nasal ulcers. She denies malar rash. She does endorse a rash on herabdomen. She denies gross hematuria or frothy urine. She endorses a history of SIBO and bloating with constipation, as discussed above. She denies joint pain. She relates some chronic sinus issues. She endorses a dry cough, but denies hemoptysis. She denies raynaud's phenomenon, digital ulcerations. She does have some shortness of breath. She has some mild heartburn. Denies hematochezia or melena. She endorses imbalance and tremor. Interim updates: 07/08/2022: The patient presents for further evaluation and management of what he is principally anasarca related to hypoalbuminemia of unclear etiology. Similar to the initial history noted above, the patient at today's visit denies a history of significant diarrhea that 1 would expect in a malabsorptive syndrome or protein-losing enteropathy. As noted above, there is no evidence of heavy proteinuria that would be suggestive of amyloid renal involvement or another glomerular disorder leading tonephrotic syndrome. 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 No formal testing of the adrenal axis is evidence to me on my chart review. Patient notes that she is planned for repeat colonoscopy and her sister, who accompanies her during the visit, strongly convinced that this will disclose evidence ofamyloidosis. In terms of amyloid agenic symptoms, the patient denies any tongue swelling, new rash, dizziness, lightheadedness, palpitations, dyspnea, orthopnea, or PND. Her NT pro BNP was within the reference range as of 06/03/2022. There is no echocardiogram for me to review at present. Her most recent paraprotein work-up reveals an unremarkable immunofixation, a significantly elevated lambda serum free lightchain to 397 mg/L with a KL ratio of 0.09, benito hypogammaglobulinemia, and a 24-hour urine protein that is within the reference range. I do not see a completed urine protein electrophoresis to assess for Bence-Gallegos proteinuria. There is evidence of anemia, with a hemoglobin of 9.2 g/dl that is normocytic. There is no evidence of leukopenia or thrombocytopenia. Serum calcium and serum creatinine are within the reference ranges. The patient underwent a bone survey on 06/21/2022 that did not disclose evidence of lytic lesions. She has not had cross-sectional imaging to assess for osseous or extraosseous disease. Veg F levels have not been assessed and no fat pad biopsy has been completed. Iron studies as of 3 weeks ago showing normal TIBC and transferrin saturation. Ferritin levels wereelevated to 1183 ng/mL. A broad micronutrient panel including vitamin B12, vitamin D, and copper isunremarkable. One symptoms of note that she does complain of is bilateral lower extremity neuropathy. She acknowledges bilateral lower extremity paresthesias to the level of the mid ankle with onset around the time of anasarca. These do not follow any particular dermatomal distribution. She denies significant pain or lower extremity weakness. 08/12/22: In the interim since our last visit, the patient underwent a fat pad biopsy that was unremarkable for evidence of amyloidosis. She also underwent an EGD and colonoscopy that disclosed mild gastritis. Biopsies from her endoscopies are pending. She notes that her fatigue and anasarca continue to worsen. She is tired enough on some days that she cannot walk to her car. She denies guy dyspnea, orthopnea, PND or palpitations. Her albumin remains low without evidence of diarrhea or proteinuria. Of note, her VEGF level was within the reference range. PET/CT scan revealed no evidence of osseous lytic disease. 09/10/2022: I discussed the results of the patient's MRI, which demonstrated approximately 2.0 cm marrow base lesions in the left and right ilium that are likely myelomatous. Patient itself is actually feeling better with reduced edema and anasarca. She denies fevers, chills, night sweats, nausea, vomiting, diarrhea, mucosal bleeding, or significant weight changes. Her coagulation parameters do not demonstrate evidence of synthetic liver dysfunction. Her hemoglobin remained stable and I do not have another ready explanation for her anemia. Unfortunately, her repeat bone marrow biopsy demonstrated inadequate cellularity. 09/23/2022: Patient presents to discuss initiation of therapy. Over the past 2 weeks, she has noted an improvement in her bilateral lower extremity edema to the extent that she has reduced her dose offurosemide at home. Her hemoglobin has improved by 1 g/dl, which may reflect hemoconcentration. Herbone marrow biopsy unfortunately yielded low cellularity as noted above. 11/23/2022: Patient returns for evaluation management of her underlying smoldering multiple myeloma.Continues her last visit, she notes that her energy levels improved, no lower extremity edema has also been less pronounced. She denies fevers, chills, night sweats, nausea, vomiting, diarrhea, significant weight changes, and lymphadenopathy. Her involved serum free light chain had been declining without intervention at her last check. 02/24/23: The patient reports that her edema has nearly resolved. She has augmented her dietary intake of protein and followed a ketogenic diet since our last visit with concomitant increase in heralbumin. Her abdominal pain and loose stools have also improved during this time. Paraprotein labs reveal continued spontaneous decline in her involved serum free light chain. 04/22/23: In the interim since her last visit, the patient denies fevers, chills, night sweats, nausea, vomiting, diarrhea, and further peripheral edema. Overall she feels well but is still strugglingwith her irritable bowel syndrome symptoms on a daily basis. Her paraprotein labs demonstrate a stable monoclonal free light chain and no evidence of worsening anemia, renal dysfunction, or hypercalcemia. 07/14/23: In the interim since her last visit, the patient's paraprotein labs demonstrate a stable lambda serum free light chain and a stable free light chain ratio. She remains hypogammaglobulinemic.There is no evidence of monoclonal paraprotein by protein electrophoresis. Immunofixation remains faintly positive for monoclonal lambda paraprotein as expected. There is no evidence of renal disease, anemia, or hypercalcemia. She denies fevers, chills, night sweats, nausea, vomiting, diarrhea, andworsening or new onset anasarca. 10/13/23: In interim since her last visit, the patient went a PET/CT scan that did not demonstrate any evidence of active multiple myeloma. Her involved serum free light chain continues to decline from peak of ~400 mg/L approximately one year ago. She remains hypogammaglobulinemic. She has no evidence of an intact monoclonal paraprotein by protein electrophoresis. There is no evidence of renal dysfunction, hypercalcemia, and bone disease. 01/13/24: By video visit, the patient acknowledges that her lower extremity edema has entirely resolved. She has occasional fatigue but otherwise excellent exercise capacity. She denies fevers, chills, night sweats, nausea, vomiting, diarrhea, and new rash. Immunofixation remains negative and her lambda serum free light chain is steadily declining without any further intervention. She remains hypogammaglobulinemic without evidence of recurrent infection. There is no evidence of worsening anemia, renal dysfunction or hypercalcemia. She stringently denies neuropathy. Review of systems General: No fever , No chills, and No night sweats HEENT: No lumps, no difficulty chewing or swallowing, no enlarging tongue, no tooth aches. Musculoskeletal: See above Hematological: No bleeding or easy bruising. Lymphatic / Immune system: No lymph node enlargement or infection. Cardiovascular: No orthopnea, no dyspnea, no chest pain, no leg edema, no palpitations. Pulmonary: No dyspnea, no wheezing, no cough. PAST MEDICAL HISTORY Diagnosis Date Anxiety state, unspecified Depressive disorder, not elsewhere classified IBS (irritable bowel syndrome) Multiple chemical sensitivity syndrome Small intestinal bacterial overgrowth (SIBO) PAST SURGICAL HISTORY Procedure Laterality Date TOOTH EXTRACTION Allergies / intolerances ALLERGIES Allergen Reactions Amoxicillin Other: See Comments Codeine Other: See Comments Flavoring Agent (Bu* Other: See Comments Lactose Other: See Comments Peppermint Flavor Other: See Comments Medications levothyroxine (SYNTHROID) 50 mcg tablet Take 50 mcg by mouth once daily. 100 mcg 5 days a week. Other two days 50mcg. OTC PRODUCT Food enzymes 3x daily acetylcysteine (ACET-CYS) Take 1,000 mg by mouth once daily. cholecalciferol, vitamin D3, (D3-2000 ORAL) Take 2,000 mg by mouth once daily. Lactobacillus acidophilus (PROBIOTIC) 10 billion cell cap Take 133 capsules by mouth daily at bedtime. OTC PRODUCT Progesterone Cream 20ml 0.3ml once a day, Bi-estrogen (80/20) .625mg 0/2 ml twice a day(Patient taking differently: Progesterone Cream 20ml 0.3ml once a day,) Social History Tobacco Use Smoking status: Never Smokeless tobacco: Never Vaping Use Vaping status: Never Used Substance Use Topics Alcohol use: No Drug use: No FAMILY HISTORY Problem Relation Age of Onset Osteoporosis Mother Heart Mother afib GI Father IBS Margot Disease Sister other (environmental sensitivities [Other]) Sister both sisters Laboratory tests WBC (k/uL) Date Value 01/06/2024 5.93 10/04/2023 7.25 07/07/2023 6.39 04/21/2023 10.94 02/14/2023 6.71 11/24/2022 9.04 10/25/2022 7.83 09/27/2022 8.03 09/23/2022 6.73 08/27/2022 3.75 Abs Neut (k/uL) Date Value 01/06/2024 4.04 10/04/2023 5.42 07/07/2023 4.55 04/21/2023 9.13 02/14/2023 4.56 11/24/2022 6.84 10/25/2022 5.64 09/27/2022 6.12 09/23/2022 4.92 08/27/2022 2.61 Hemoglobin (g/dL) Date Value 01/06/2024 10.5 10/04/2023 11.6 07/07/2023 9.9 04/21/2023 10.4 02/14/2023 12.0 11/24/2022 10.8 10/25/2022 10.2 09/27/2022 10.0 09/23/2022 10.4 08/27/2022 9.4 Platelet Count (k/uL) Date Value 01/06/2024 342 10/04/2023 294 07/07/2023 301 04/21/2023 298 02/14/2023 316 11/24/2022 343 10/25/2022 301 09/27/2022 261 09/23/2022 304 08/27/2022 243 Glucose (mg/dL) Date Value 01/06/2024 102 10/04/2023 105 07/07/2023 95 04/21/2023 103 02/14/2023 105 11/24/2022 114 10/25/2022 102 09/27/2022 76 09/23/2022 107 08/27/2022 115 Creatinine (mg/dL) Date Value 01/06/2024 0.82 10/04/2023 0.61 07/07/2023 0.80 04/21/2023 0.89 02/14/2023 0.66 11/24/2022 0.71 10/25/2022 0.70 09/27/2022 0.95 09/23/2022 1.30 08/27/2022 0.91 Calcium, Total (mg/dL) Date Value 01/06/2024 10.1 10/04/2023 10.0 07/07/2023 9.9 04/21/2023 9.9 02/14/2023 9.8 11/24/2022 9.4 10/25/2022 9.0 09/27/2022 8.8 09/23/2022 9.1 08/27/2022 9.2 M-Protein Concentration (g/dL) Date Value 01/06/2024 0.00 10/04/2023 0.00 07/07/2023 0.00 04/21/2023 0.00 02/14/2023 0.00 11/24/2022 0.00 10/25/2022 0.00 09/23/2022 0.00 08/27/2022 0.00 06/21/2022 0.00 06/03/2022 0.00 M Gee Quant, 24 Hr Urine (g/24hr) Date Value 06/26/2022 0.00 [place] Free, Serum (mg/L) Date Value 01/06/2024 13.1 10/04/2023 12.8 07/07/2023 14.2 04/21/2023 13.0 02/14/2023 16.2 11/24/2022 19.2 10/25/2022 22.2 09/23/2022 29.8 08/27/2022 40.2 06/21/2022 35.6 06/03/2022 34.8 Lambda Free, Serum (mg/L) Date Value 01/06/2024 97.6 10/04/2023 102.3 07/07/2023 125.8 04/21/2023 129.1 02/14/2023 123.3 11/24/2022 135.8 10/25/2022 184.9 09/23/2022 268.8 08/27/2022 329.7 06/21/2022 397.8 06/03/2022 384.6 Interpretation (MPA) (no units) Date Value 07/07/2023 Poorly defined region of restricted mobility in the lambda fadi. Pattern is less well defined or fainter than typically seen in monoclonal gammopathy. This could represent either an atypical presentation of polyclonal immunoglobulins or the presence of a low level lambda containing monoclonal gammopathy. If clinically indicated, urine monoclonal protein analysis and serum free light chain measurements are recommended to evaluate further for monoclonal gammopathy. Clinical correlation is necessary. 02/14/2023 Poorly definded region of restricted mobility in IgG and lambda lanes. Pattern is less well definedor fainter than typically seen in monoclonal gammopathy. This could represent either an atypical presentation of polyclonal immunoglobulins or the presence of a low level IgG lambda monoclonal gammopathy. If clinically indicated, urine monoclonal protein analysis and serum free light chain measurements are recommended to evaluate further for monoclonal gammopathy. Clinical correlation is necessary. 06/03/2022 Poorly defined region of restricted mobility in the lambda fadi. Pattern is less well defined or fainter than typically seen in monoclonal gammopathy. This could represent either an atypical presentation of polyclonal immunoglobulins or the presence of a low level lambda containing monoclonal gammopathy. Imaging To be obtained Pathology: Bone marrow biopsy in progress Impression and Plan Cancer Staging No matching staging information was found for the patient. ##Monoclonal gammopathy of undetermined significance, lambda light chain subtype Cytogenetic risk category: Pending Frailty Score: 0 IMWG Response Criteria: Newly diagnosed Renal: Normal creatinine, clinically no evidence for renal dysfunction. Infectious diseases: No current infection, no need for prophylaxis Musculoskeletal: No current pain, no new lesions suspected. Bone modifying therapy: Diagnostic work-up pending Venous thromboembolism risk: Diagnostic work-up pending control counseling: Diagnostic work-up pending Neurology: Bilateral lower extremity sensory neuropathy as described above Health maintenance discussed: Regular exercise and Appropriate diet Side effects from current medications: None This is a 57-year-old female with approximately 2 years onset anasarca and hypoalbuminemia but doesnot adequately explained by either urinary protein losses or protein-losing enteropathy. 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 An initial paraprotein work-up ordered recently revealed an elevated lambda serum free light chain with a ratio of 0.09 in the context of anemia that has not been fully explained by micronutrient deficiency. There was no evidence of hemolysis at the time of diagnosis and her anemia has improved. An MRI of the spine and pelvis obtained approximately one year ago demonstrated multiple marrow base lesions in thepelvis that are greater than 5 mm. At that time, a PET/CT scan was unremarkable. We discussed the definition of multiple myeloma including the IMWG 2014 criteria. Bone marrow biopsy demonstrated trace lambda monotypic plasma cells. The patient initially declined treatment and her symptoms have improved with alteration in her diet. Her serum free light chains continue improved and subsequently reached a plateau, possibly reflective of the resolution of an undiagnosed inflammatory process. I remain concerned about the possibility of disease progression; however, with the overall improvement in her clinical condition with dietary alterations and the apparent improvement in her paraproteinemia, we will continue active surveillance. Her most recent PET/CT scan is unremarkable for evidence of osseous or extraosseous multiple myeloma or lymphoma. Plan Summary: -Defer initiation of plasma cell directed therapy at present. -Fat pad biopsy negative; EMG and liver biopsy to be deferred at the moment due to improving symptoms -Repeat paraproteins in 3 months -RTC virtually in 3 months Johanna Mandel MD, [facility] Hematology and Medical Oncology [facility] [address], [place] [facility] [id number] CC: Dr. Mike Aguilar, Dr. Jenna Trevino Medical Decision Making: Problems: Moderate: 2+ stable chronic illnesses Data: Unique test result(s) reviewed: 3+ Unique test(s) ordered: 3+ Risk: Low: Low risk from testing/treatment Medical Decision Making Level: 4 - Moderate documented in this encounterHol[facility] of Present illness Narrative* Johanna Mandel MD - 10/13/2023 3:00 PM EDT Images from the original note were not included. 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 My recommendations to the consult requesting physician are communicated via the shared electronic medical record or US mail. This visit was conducted by Zoom. 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 Baseline assessment on initial diagnosis date 2022 Cancer Staging No matching staging information was found for the patient. No matching staging information was found for the patient. 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 and may represent an unusual presentation of polyclonal immunoglobulins, but cannot ruleout the presence of a low level M protein 06/03/2022 Related Organ or Tissue Involvement (CRAB) or other Myeloma Defining Event (MDE): Anemia (HgB < 10g/dL or 2g/dL below LLN), actual value: 9.1 g/dL Antecedent plasma cell dyscrasia: No Myeloma FISH panel: Cytogenetics: LDH: 156 U/L (100 - 220) ISS stage: Albumin: 2.9 g/dL, B2M: 2.7 mg/L [place] Stage: Monoclonal proteins at diagnosis: Serum M-spike: 0.00 gm/dL, kappa serum free light chains: 35.6 mg/L, lambda serum free light chains: 397.8 mg/L, Urinary m- protein: an atypical restricted band is present in the lambda region. The presence of free lambda light chains in the urine is consistent witha lambda- containing monoclonal gammopathy, Urinary protein excretion: 0.07 g/24hrs, Urinary albumin: 31.43 %, and Urinary m-protein present Not measurable Total immunoglobulins at diagnosis: IgG 244 mg/dL, IgA 31 mg/dL, IgM 16 mg/dL Bone marrow plasma cell infiltration: % Systemic treatment and disease course -No prior systemic therapy Local treatments (radiation, surgery, kyphoplasty) -No prior local therapy History of prior work up illness (Dr. 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 Patient apparently had been referred to nephrology for anasarca and to evaluate for nephrotic syndrome. She had been hospitalized in February 2022 and seen by hematology for anemia andnephrology for hypoalbuminemia and anasarca. Her albumin was low at 2.5 and Hgb 8.8 in February 2022. A 24 hour urine protein showed just 55 mg of protein and no M spike on UIFE. Patient had been trying to increase her protein intake and was on a fluid restricted diet. She continued to have significant edema. She was intolerant to Bumex as it caused dizziness and slurred speech. She was discharged on Lasix 20 mg daily. She saw GI for elevated liver function tests -- viral hepatitis studies wereunremarkable. Apparently a colonoscopy had been attempted (patient says on three occasions), with poor prep. She was told she had problems with malabsorption. An abdominal ultrasound on 12/29/2021 showed normal liver and no ascites. CT of the abdomen from 03/18/2022 was unremarkable. CK was elevatedat 700 but with elevated myoglobin at 86 (normal 25-58). Urine free light chains apparently showed a Bence Gallegos protein, but on repeat was negative when evaluated by hematology. On 05/10/2022, Hgb 9.8 with creatinine 0.96 (up from baseline a few months prior ~0.5), BUN 44, potassium 4.7 while on Lasix 20 mg daily. CRP and ESR may have been mildly elevated in the past. Patient complained of generalized weakness, fatigue, not being able to do her daily chores at home. Exam was notable for 4+ pitting edema in the legs, a resting tremor. Patient's elevated creatinine and BUN were explained by diuretic therapy. Some immunologic serologies were ordered given concern for myositis with elevated CK.Patient was encouraged to continue Lasix. She was also encouraged to follow-up with hematology regarding anemia. This visit, patient confirms the above history. She elaborates that her symptoms began about a yearago, when she went to the ED and was told her serum protein was low. She says the swelling is mostly in her legs, but she also has noticed some swelling along the left breast and left upper extremity. She has been increasing her protein intake - consuming 90 mg protein through her diet and an additional 45 g through supplemental protein shakes. She tells me no significant proteinuria has been identified in her urine. Regarding a possible protein losing enteropathy, she endorses a history of small intestinal bacterial overgrowth (SIBO) characterized by bloating and constipation; she denies diar emory or loose stools. She reports having tried rifaxamin without improvement. She denies a history of congestive heart failure and reports having had a normal echocardiogram. A BNP was checked on 03/15/2022 and was minimally elevated at 117.2 pg/mL (ref range 0-100). She has gained a lot of weight,due to fluid retention with third spacing, as she is severely hypoalbuminemic. She has also had negative testing for SAYRA by IFA (05/18/2022), ANCA (05/12/2022), normal serum complements (C3 & C4), normal CRP (<2.90) and slightly elevated ESR (33) on 05/12/22. CK was elevated at 283 (05/12/22). Iron studies have been consistent with iron deficiency, for which patient reports having had iron infusions. Ferritin 14 L, iron 34 L, iron saturation 8.1% L, TIBC 419 (05/20/22). Regarding her iron deficiency, she denies hematochezia, melena, gross hematuria, hemoptysis, or a family history of cancer. As mentioned above, she had a CT chest, abdomen, and pelvis on 03/18/2022 which was apparently negative. Regarding her elevated CK level, she relates generalized muscle weakness, which is most pronounced in the legs as opposed to the upper extremities. She is essentially bed-bound at this time. She is unable to perform activities of daily living without assistance. Her vitamin B12 has actually been very high, but she attributes this to having previously been taking a B complex vitamin. She has had an abnormally low serum kappa/lambda ratio of 0.13 (normal 0.26 - 1.65) on 05/20/2022. All of her serum immunoglobulins have been low (IgA 40, IgG 251, IgM 18) on 05/20/2022. Her TSH was elevated to 11.40 but with normal free T4 of 1.10 on 05/20/2022. She has a history of hypothyroidism and takes levothyroxine. She reports a past history of having taken [place] thyroid. Plchi-2-ihkuqzwrmno serum was normal at 212 mg/dL on 05/19/2022. Other labs from 05/20/2022 reveal CHANO with negative M spike. Low total protein at 4.9, and an abnormal kappa/lambda ratio of 0.13. Patient's sister is concerned that she might have an unusual form of multiple myeloma, presenting as lymphedema (she brought a copy of the paper to the visit today). Patient and her family want to see hematology for additional work-up, including bone marrow biopsy. Other labs, from 06/01/22 show CBC with WBC 6.4, Hgb 9.0 (MCV 94.2), Plt 170. CBC diff with anisocytosis, target cells. Cr 0.73, BUN 36, CO2, Na 142, K 4.0, CO2 31. AST 84, ALT 85, albumin 2.0. Normal FT4 and low FT3. Haley says she is a 'very sensitive person.' She used to take '22 supplements,' but is taking a lotless now. She denies history of vegan diet; she has a good appetite and reports a robust balanced diet. She endorses a strong family history of Margot's thyroiditis, but denies other autoimmune disease. 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 She reports being up-to-date with age-appropriate cancer screening and had a mammogram within the past few years, PAP one year ago. She says her grandmother from colon cancer. Haley denies fevers or chills. She does have some cold sweats at night. She is gaining 1 lb per day. She denies photosensitivity. She denies dry eye. She has dry mouth which she attributes to fluidrestriction. She denies oral or nasal ulcers. She denies malar rash. She does endorse a rash on herabdomen. She denies gross hematuria or frothy urine. She endorses a history of SIBO and bloating with constipation, as discussed above. She denies joint pain. She relates some chronic sinus issues. She endorses a dry cough, but denies hemoptysis. She denies raynaud's phenomenon, digital ulcerations. She does have some shortness of breath. She has some mild heartburn. Denies hematochezia or melena. She endorses imbalance and tremor. Interim updates: 07/08/2022: The patient presents for further evaluation and management of what he is principally anasarca related to hypoalbuminemia of unclear etiology. Similar to the initial history noted above, the patient at today's visit denies a history of significant diarrhea that 1 would expect in a malabsorptive syndrome or protein-losing enteropathy. As noted above, there is no evidence of heavy proteinuria that would be suggestive of amyloid renal involvement or another glomerular disorder leading tonephrotic syndrome. 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 No formal testing of the adrenal axis is evidence to me on my chart review. Patient notes that she is planned for repeat colonoscopy and her sister, who accompanies her during the visit, strongly convinced that this will disclose evidence ofamyloidosis. In terms of amyloid agenic symptoms, the patient denies any tongue swelling, new rash, dizziness, lightheadedness, palpitations, dyspnea, orthopnea, or PND. Her NT pro BNP was within the reference range as of 06/03/2022. There is no echocardiogram for me to review at present. Her most recent paraprotein work-up reveals an unremarkable immunofixation, a significantly elevated lambda serum free lightchain to 397 mg/L with a KL ratio of 0.09, benito hypogammaglobulinemia, and a 24-hour urine protein that is within the reference range. I do not see a completed urine protein electrophoresis to assess for Bence-Gallegos proteinuria. There is evidence of anemia, with a hemoglobin of 9.2 g/dl that is normocytic. There is no evidence of leukopenia or thrombocytopenia. Serum calcium and serum creatinine are within the reference ranges. The patient underwent a bone survey on 06/21/2022 that did not disclose evidence of lytic lesions. She has not had cross-sectional imaging to assess for osseous or extraosseous disease. Veg F levels have not been assessed and no fat pad biopsy has been completed. Iron studies as of 3 weeks ago showing normal TIBC and transferrin saturation. Ferritin levels wereelevated to 1183 ng/mL. A broad micronutrient panel including vitamin B12, vitamin D, and copper isunremarkable. One symptoms of note that she does complain of is bilateral lower extremity neuropathy. She acknowledges bilateral lower extremity paresthesias to the level of the mid ankle with onset around the time of anasarca. These do not follow any particular dermatomal distribution. She denies significant pain or lower extremity weakness. 08/12/22: In the interim since our last visit, the patient underwent a fat pad biopsy that was unremarkable for evidence of amyloidosis. She also underwent an EGD and colonoscopy that disclosed mild gastritis. Biopsies from her endoscopies are pending. She notes that her fatigue and anasarca continue to worsen. She is tired enough on some days that she cannot walk to her car. She denies guy dyspnea, orthopnea, PND or palpitations. Her albumin remains low without evidence of diarrhea or proteinuria. Of note, her VEGF level was within the reference range. PET/CT scan revealed no evidence of osseous lytic disease. 09/10/2022: I discussed the results of the patient's MRI, which demonstrated approximately 2.0 cm marrow base lesions in the left and right ilium that are likely myelomatous. Patient itself is actually feeling better with reduced edema and anasarca. She denies fevers, chills, night sweats, nausea, vomiting, diarrhea, mucosal bleeding, or significant weight changes. Her coagulation parameters do not demonstrate evidence of synthetic liver dysfunction. Her hemoglobin remained stable and I do not have another ready explanation for her anemia. Unfortunately, her repeat bone marrow biopsy demonstrated inadequate cellularity. 09/23/2022: Patient presents to discuss initiation of therapy. Over the past 2 weeks, she has noted an improvement in her bilateral lower extremity edema to the extent that she has reduced her dose offurosemide at home. Her hemoglobin has improved by 1 g/dl, which may reflect hemoconcentration. Herbone marrow biopsy unfortunately yielded low cellularity as noted above. 11/23/2022: Patient returns for evaluation management of her underlying smoldering multiple myeloma.Continues her last visit, she notes that her energy levels improved, no lower extremity edema has also been less pronounced. She denies fevers, chills, night sweats, nausea, vomiting, diarrhea, significant weight changes, and lymphadenopathy. Her involved serum free light chain had been declining without intervention at her last check. 02/24/23: The patient reports that her edema has nearly resolved. She has augmented her dietary intake of protein and followed a ketogenic diet since our last visit with concomitant increase in heralbumin. Her abdominal pain and loose stools have also improved during this time. Paraprotein labs reveal continued spontaneous decline in her involved serum free light chain. 04/22/23: In the interim since her last visit, the patient denies fevers, chills, night sweats, nausea, vomiting, diarrhea, and further peripheral edema. Overall she feels well but is still strugglingwith her irritable bowel syndrome symptoms on a daily basis. Her paraprotein labs demonstrate a stable monoclonal free light chain and no evidence of worsening anemia, renal dysfunction, or hypercalcemia. 07/14/23: In the interim since her last visit, the patient's paraprotein labs demonstrate a stable lambda serum free light chain and a stable free light chain ratio. She remains hypogammaglobulinemic.There is no evidence of monoclonal paraprotein by protein electrophoresis. Immunofixation remains faintly positive for monoclonal lambda paraprotein as expected. There is no evidence of renal disease, anemia, or hypercalcemia. She denies fevers, chills, night sweats, nausea, vomiting, diarrhea, andworsening or new onset anasarca. 10/13/23: In interim since her last visit, the patient went a PET/CT scan that did not demonstrate any evidence of active multiple myeloma. Her involved serum free light chain continues to decline from peak of ~400 mg/L approximately one year ago. She remains hypogammaglobulinemic. She has no evidence of an intact monoclonal paraprotein by protein electrophoresis. There is no evidence of renal dysfunction, hypercalcemia, and bone disease. Review of systems General: No fever , No chills, and No night sweats HEENT: No lumps, no difficulty chewing or swallowing, no enlarging tongue, no tooth aches. Musculoskeletal: See above Hematological: No bleeding or easy bruising. Lymphatic / Immune system: No lymph node enlargement or infection. Cardiovascular: No orthopnea, no dyspnea, no chest pain, no leg edema, no palpitations. Pulmonary: No dyspnea, no wheezing, no cough. PAST MEDICAL HISTORY Diagnosis Date Anxiety state, unspecified Depressive disorder, not elsewhere classified IBS (irritable bowel syndrome) Multiple chemical sensitivity syndrome Small intestinal bacterial overgrowth (SIBO) PAST SURGICAL HISTORY Procedure Laterality Date TOOTH EXTRACTION Allergies / intolerances ALLERGIES Allergen Reactions Amoxicillin Other: See Comments Codeine Other: See Comments Flavoring Agent (Bu* Other: See Comments Lactose Other: See Comments Peppermint Flavor Other: See Comments Medications levothyroxine (SYNTHROID) 50 mcg tablet Take 50 mcg by mouth once daily. 100 mcg 5 days a week. Other two days 50mcg. OTC PRODUCT Food enzymes 3x daily acetylcysteine (ACET-CYS) Take 1,000 mg by mouth once daily. cholecalciferol, vitamin D3, (D3-2000 ORAL) Take 2,000 mg by mouth once daily. Lactobacillus acidophilus (PROBIOTIC) 10 billion cell cap Take 133 capsules by mouth daily at bedtime. OTC PRODUCT Progesterone Cream 20ml 0.3ml once a day, Bi-estrogen (80/20) .625mg 0/2 ml twice a day(Patient taking differently: Progesterone Cream 20ml 0.3ml once a day,) Social History Tobacco Use Smoking status: Never Smokeless tobacco: Never Vaping Use Vaping Use: Never used Substance Use Topics Alcohol use: No Drug use: No FAMILY HISTORY Problem Relation Age of Onset Osteoporosis Mother Heart Mother afib GI Father IBS Margot Disease Sister other (environmental sensitivities [Other]) Sister both sisters Laboratory tests WBC (k/uL) Date Value 10/04/2023 7.25 07/07/2023 6.39 04/21/2023 10.94 02/14/2023 6.71 11/24/2022 9.04 10/25/2022 7.83 09/27/2022 8.03 09/23/2022 6.73 08/27/2022 3.75 08/19/2022 5.50 Abs Neut (k/uL) Date Value 10/04/2023 5.42 07/07/2023 4.55 04/21/2023 9.13 02/14/2023 4.56 11/24/2022 6.84 10/25/2022 5.64 09/27/2022 6.12 09/23/2022 4.92 08/27/2022 2.61 08/19/2022 4.38 Hemoglobin (g/dL) Date Value 10/04/2023 11.6 07/07/2023 9.9 04/21/2023 10.4 02/14/2023 12.0 11/24/2022 10.8 10/25/2022 10.2 09/27/2022 10.0 09/23/2022 10.4 08/27/2022 9.4 08/19/2022 9.2 Platelet Count (k/uL) Date Value 10/04/2023 294 07/07/2023 301 04/21/2023 298 02/14/2023 316 11/24/2022 343 10/25/2022 301 09/27/2022 261 09/23/2022 304 08/27/2022 243 08/19/2022 147 Glucose (mg/dL) Date Value 10/04/2023 105 07/07/2023 95 04/21/2023 103 02/14/2023 105 11/24/2022 114 10/25/2022 102 09/27/2022 76 09/23/2022 107 08/27/2022 115 08/19/2022 85 Creatinine (mg/dL) Date Value 10/04/2023 0.61 07/07/2023 0.80 04/21/2023 0.89 02/14/2023 0.66 11/24/2022 0.71 10/25/2022 0.70 09/27/2022 0.95 09/23/2022 1.30 08/27/2022 0.91 08/19/2022 0.88 Calcium, Total (mg/dL) Date Value 10/04/2023 10.0 07/07/2023 9.9 04/21/2023 9.9 02/14/2023 9.8 11/24/2022 9.4 10/25/2022 9.0 09/27/2022 8.8 09/23/2022 9.1 08/27/2022 9.2 08/19/2022 8.9 M-Protein Concentration (g/dL) Date Value 10/04/2023 0.00 07/07/2023 0.00 04/21/2023 0.00 02/14/2023 0.00 11/24/2022 0.00 10/25/2022 0.00 09/23/2022 0.00 08/27/2022 0.00 06/21/2022 0.00 06/03/2022 0.00 M Gee Quant, 24 Hr Urine (g/24hr) Date Value 06/26/2022 0.00 [place] Free, Serum (mg/L) Date Value 10/04/2023 12.8 07/07/2023 14.2 04/21/2023 13.0 02/14/2023 16.2 11/24/2022 19.2 10/25/2022 22.2 09/23/2022 29.8 08/27/2022 40.2 06/21/2022 35.6 06/03/2022 34.8 Lambda Free, Serum (mg/L) Date Value 10/04/2023 102.3 07/07/2023 125.8 04/21/2023 129.1 02/14/2023 123.3 11/24/2022 135.8 10/25/2022 184.9 09/23/2022 268.8 08/27/2022 329.7 06/21/2022 397.8 06/03/2022 384.6 Interpretation (MPA) (no units) Date Value 07/07/2023 Poorly defined region of restricted mobility in the lambda fadi. Pattern is less well defined or fainter than typically seen in monoclonal gammopathy. This could represent either an atypical presentation of polyclonal immunoglobulins or the presence of a low level lambda containing monoclonal gammopathy. If clinically indicated, urine monoclonal protein analysis and serum free light chain measurements are recommended to evaluate further for monoclonal gammopathy. Clinical correlation is necessary. 02/14/2023 Poorly definded region of restricted mobility in IgG and lambda lanes. Pattern is less well definedor fainter than typically seen in monoclonal gammopathy. This could represent either an atypical presentation of polyclonal immunoglobulins or the presence of a low level IgG lambda monoclonal gammopathy. If clinically indicated, urine monoclonal protein analysis and serum free light chain measurements are recommended to evaluate further for monoclonal gammopathy. Clinical correlation is necessary. 06/03/2022 Poorly defined region of restricted mobility in the lambda fadi. Pattern is less well defined or fainter than typically seen in monoclonal gammopathy. This could represent either an atypical presentation of polyclonal immunoglobulins or the presence of a low level lambda containing monoclonal gammopathy. Imaging To be obtained Pathology: Bone marrow biopsy in progress Impression and Plan Cancer Staging No matching staging information was found for the patient. ##Monoclonal gammopathy of undetermined significance, lambda light chain subtype Cytogenetic risk category: Pending Frailty Score: 0 IMWG Response Criteria: Newly diagnosed Renal: Normal creatinine, clinically no evidence for renal dysfunction. Infectious diseases: No current infection, no need for prophylaxis Musculoskeletal: No current pain, no new lesions suspected. Bone modifying therapy: Diagnostic work-up pending Venous thromboembolism risk: Diagnostic work-up pending control counseling: Diagnostic work-up pending Neurology: Bilateral lower extremity sensory neuropathy as described above Health maintenance discussed: Regular exercise and Appropriate diet Side effects from current medications: None This is a 57-year-old female with approximately 2 years onset anasarca and hypoalbuminemia but doesnot adequately explained by either urinary protein losses or protein-losing enteropathy. 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 An initial paraprotein work-up ordered recently revealed an elevated lambda serum free light chain with a ratio of 0.09 in the context of anemia that has not been fully explained by micronutrient deficiency. There was no evidence of hemolysis at the time of diagnosis and her anemia has improved. An MRI of the spine and pelvis obtained approximately one year ago demonstrated multiple marrow base lesions in thepelvis that are greater than 5 mm. At that time, a PET/CT scan was unremarkable. We discussed the definition of multiple myeloma including the IM WG 2014 criteria. Bone marrow biopsy demonstrated trace lambda monotypic plasma cells. The patient initially declined treatment and her symptoms have improved with alteration in her diet. Her serum free light chains continue improved and subsequently reached a plateau, possibly reflective of the resolution of an undiagnosed inflammatory process. I remain concerned about the possibility of disease progression; however, with the overall improvement in her clinical condition with dietary alterations and the apparent improvement in her paraproteinemia, we will continue active surveillance. Her most recent PET/CT scan is unremarkable for evidence of osseous or extraosseous multiple myeloma. Plan Summary: -Defer initiation of plasma cell directed therapy at present. -Fat pad biopsy negative; EMG and liver biopsy to be deferred at the moment due to improving symptoms -Defer repeat MRI at the request of the patient. -We will discuss bone stabilizing agents once again at our next visit -Repeat paraproteins in 3 months -RTC virtually in 3 months Johanna Mandel MD, [facility] Hematology and Medical Oncology [facility] [address] [place], [place] [id number] CC: Dr. Mike Aguilar, Dr. Jenna Trevino Medical Decision Making: Problems: Moderate: 2+ stable chronic illnesses Data: Unique test result(s) reviewed: 3+ Unique test(s) ordered: 3+ Risk: Low: Low risk from testing/treatment Medical Decision Making Level: 4 - Moderate documented in this encounterHol[facility] History of Present illness Narrative* Ignacio Moreno RT(R) - 10/03/2023 10:00 AM EDT RADIOLOGY SERVICE PROGRESS NOTE SERVICE DATE: 10/03/2023 SERVICE TIME: 9:45 AM PATIENT IDENTITY VERIFICATION COMPLETED USING TWO (2) STANDARD IDENTIFIERS: Name and Date of confirmed by patient verbally FALL SCREENING: Has the patient had 2 falls in the last year or 1 fall with injury or currently using an Ambulatory Assistive Device (Walker, Cane, Wheelchair, Crutches, etc.)? 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 This equation utilizes serum creatinine, sex, and age as parameters. The creatinine assay has traceable calibration to isotope dilution- mass spectrometry. Refer to KDIGO guidelines for clinical interpretation. In patients with unstable renal function, e.g. those with acute kidney injury, the eGFRmay not accurately reflect actual GFR. P.O.C.T. RESULTS: N/A October 03, [address] PERFORMED: No IV SITE: Ambulatory: A peripheral IV was started in the Left antecubital site with a Angio cath: 24gauge. POST EXAM PIV STATUS: Discontinued PROCEDURE TYPE: NM INJECT: PET/CT WHOLE BODY SCAN. 10.3 mCi F18 FDG. No other medications given.. ADMINISTRATION TIME: 0940 PATIENT DISCHARGED TO: Ambulatory patient, left NM department area. A Diagnostic radioactive procedure has taken place, with no further precautions necessary other than routine body substance precautions. More information regarding radiation safety can be found usingthis link: [email or web address] SIGNATURE: RT Bobby(Jessy) PATIENT NAME: Haley Glez DATE: October 03, 2023 TIME: 9:45 AM PAGER/CONTACT #: documented in this encounterHolmes County [facility]04[facility] History of Present illness Narrative* Johanna Mandel MD - 07/14/2023 3:00 PM EDT Images from the original note were not included. 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 My recommendations to the consult requesting physician are communicated via the shared electronic medical record or US mail. This visit was conducted by [place]. 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 Baseline assessment on initial diagnosis date 2022 Cancer Staging No matching staging information was found for the patient. No matching staging information was found for the patient. 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 and may represent an unusual presentation of polyclonal immunoglobulins, but cannot ruleout the presence of a low level M protein 06/03/2022 Related Organ or Tissue Involvement (CRAB) or other Myeloma Defining Event (MDE): Anemia (HgB < 10g/dL or 2g/dL below LLN), actual value: 9.1 g/dL Antecedent plasma cell dyscrasia: No Myeloma FISH panel: Cytogenetics: LDH: 156 U/L (100 - 220) ISS stage: Albumin: 2.9 g/dL, B2M: 2.7 mg/L [place] Stage: Monoclonal proteins at diagnosis: Serum M-spike: 0.00 gm/dL, kappa serum free light chains: 35.6 mg/L, lambda serum free light chains: 397.8 mg/L, Urinary m- protein: an atypical restricted band is present in the lambda region. The presence of free lambda light chains in the urine is consistent witha lambda- containing monoclonal gammopathy, Urinary protein excretion: 0.07 g/24hrs, Urinary albumin: 31.43 %, and Urinary m-protein present Not measurable Total immunoglobulins at diagnosis: IgG 244 mg/dL, IgA 31 mg/dL, IgM 16 mg/dL Bone marrow plasma cell infiltration: % Systemic treatment and disease course -No prior systemic therapy Local treatments (radiation, surgery, kyphoplasty) -No prior local therapy History of prior work up illness (Dr. 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 Patient apparently had been referred to nephrology for anasarca and to evaluate for nephrotic syndrome. She had been hospitalized in February 2022 and seen by hematology for anemia andnephrology for hypoalbuminemia and anasarca. Her albumin was low at 2.5 and Hgb 8.8 in February 2022. A 24 hour urine protein showed just 55 mg of protein and no M spike on UIFE. Patient had been trying to increase her protein intake and was on a fluid restricted diet. She continued to have significant edema. She was intolerant to Bumex as it caused dizziness and slurred speech. She was discharged on Lasix 20 mg daily. She saw GI for elevated liver function tests -- viral hepatitis studies wereunremarkable. Apparently a colonoscopy had been attempted (patient says on three occasions), with poor prep. She was told she had problems with malabsorption. An abdominal ultrasound on 12/29/2021 showed normal liver and no ascites. CT of the abdomen from 03/18/2022 was unremarkable. CK was elevatedat 700 but with elevated myoglobin at 86 (normal 25-58). Urine free light chains apparently showed a Bence Gallegos protein, but on repeat was negative when evaluated by hematology. On 05/10/2022, Hgb 9.8 with creatinine 0.96 (up from baseline a few months prior ~0.5), BUN 44, potassium 4.7 while on Lasix 20 mg daily. CRP and ESR may have been mildly elevated in the past. Patient complained of generalized weakness, fatigue, not being able to do her daily chores at home. Exam was notable for 4+ pitting edema in the legs, a resting tremor. Patient's elevated creatinine and BUN were explained by diuretic therapy. Some immunologic serologies were ordered given concern for myositis with elevated CK.Patient was encouraged to continue Lasix. She was also encouraged to follow-up with hematology regarding anemia. This visit, patient confirms the above history. She elaborates that her symptoms began about a yearago, when she went to the ED and was told her serum protein was low. She says the swelling is mostly in her legs, but she also has noticed some swelling along the left breast and left upper extremity. She has been increasing her protein intake - consuming 90 mg protein through her diet and an additional 45 g through supplemental protein shakes. She tells me no significant proteinuria has been identified in her urine. Regarding a possible protein losing enteropathy, she endorses a history of small intestinal bacterial overgrowth (SIBO) characterized by bloating and constipation; she denies diar emory or loose stools. She reports having tried rifaxamin without improvement. She denies a history of congestive heart failure and reports having had a normal echocardiogram. A BNP was checked on 03/15/2022 and was minimally elevated at 117.2 pg/mL (ref range 0-100). She has gained a lot of weight,due to fluid retention with third spacing, as she is severely hypoalbuminemic. She has also had negative testing for SAYRA by IFA (05/18/2022), ANCA (05/12/2022), normal serum complements (C3 & C4), normal CRP (<2.90) and slightly elevated ESR (33) on 05/12/22. CK was elevated at 283 (05/12/22). Iron studies have been consistent with iron deficiency, for which patient reports having had iron infusions. Ferritin 14 L, iron 34 L, iron saturation 8.1% L, TIBC 419 (05/20/22). Regarding her iron deficiency, she denies hematochezia, melena, gross hematuria, hemoptysis, or a family history of cancer. As mentioned above, she had a CT chest, abdomen, and pelvis on 03/18/2022 which was apparently negative. Regarding her elevated CK level, she relates generalized muscle weakness, which is most pronounced in the legs as opposed to the upper extremities. She is essentially bed-bound at this time. She is unable to perform activities of daily living without assistance. Her vitamin B12 has actually been very high, but she attributes this to having previously been taking a B complex vitamin. She has had an abnormally low serum kappa/lambda ratio of 0.13 (normal 0.26 - 1.65) on 05/20/2022. All of her serum immunoglobulins have been low (IgA 40, IgG 251, IgM 18) on 05/20/2022. Her TSH was elevated to 11.40 but with normal free T4 of 1.10 on 05/20/2022. She has a history of hypothyroidism and takes levothyroxine. She reports a past history of having taken [place] thyroid. Cybfv-6-hyrmdsbodes serum was normal at 212 mg/dL on 05/19/2022. Other labs from 05/20/2022 reveal CHANO with negative M spike. Low total protein at 4.9, and an abnormal kappa/lambda ratio of 0.13. Patient's sister is concerned that she might have an unusual form of multiple myeloma, presenting as lymphedema (she brought a copy of the paper to the visit today). Patient and her family want to see hematology for additional work-up, including bone marrow biopsy. Other labs, from 06/01/22 show CBC with WBC 6.4, Hgb 9.0 (MCV 94.2), Plt 170. CBC diff with anisocytosis, target cells. Cr 0.73, BUN 36, CO2, Na 142, K 4.0, CO2 31. AST 84, ALT 85, albumin 2.0. Normal FT4 and low FT3. Haley says she is a 'very sensitive person.' She used to take '22 supplements,' but is taking a lotless now. She denies history of vegan diet; she has a good appetite and reports a robust balanced diet. She endorses a strong family history of Margot's thyroiditis, but denies other autoimmune disease. 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 She reports being up-to-date with age-appropriate cancer screening and had a mammogram within the past few years, PAP one year ago. She says her grandmother from colon cancer. Haley denies fevers or chills. She does have some cold sweats at night. She is gaining 1 lb per day. She denies photosensitivity. She denies dry eye. She has dry mouth which she attributes to fluidrestriction. She denies oral or nasal ulcers. She denies malar rash. She does endorse a rash on herabdomen. She denies gross hematuria or frothy urine. She endorses a history of SIBO and bloating with constipation, as discussed above. She denies joint pain. She relates some chronic sinus issues. She endorses a dry cough, but denies hemoptysis. She denies raynaud's phenomenon, digital ulcerations. She does have some shortness of breath. She has some mild heartburn. Denies hematochezia or melena. She endorses imbalance and tremor. Interim updates: 07/08/2022: The patient presents for further evaluation and management of what he is principally anasarca related to hypoalbuminemia of unclear etiology. Similar to the initial history noted above, the patient at today's visit denies a history of significant diarrhea that 1 would expect in a malabsorptive syndrome or protein-losing enteropathy. As noted above, there is no evidence of heavy proteinuria that would be suggestive of amyloid renal involvement or another glomerular disorder leading tonephrotic syndrome. 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 No formal testing of the adrenal axis is evidence to me on my chart review. Patient notes that she is planned for repeat colonoscopy and her sister, who accompanies her during the visit, strongly convinced that this will disclose evidence ofamyloidosis. In terms of amyloid agenic symptoms, the patient denies any tongue swelling, new rash, dizziness, lightheadedness, palpitations, dyspnea, orthopnea, or PND. Her NT pro BNP was within the reference range as of 06/03/2022. There is no echocardiogram for me to review at present. Her most recent paraprotein work-up reveals an unremarkable immunofixation, a significantly elevated lambda serum free lightchain to 397 mg/L with a KL ratio of 0.09, benito hypogammaglobulinemia, and a 24-hour urine protein that is within the reference range. I do not see a completed urine protein electrophoresis to assess for Bence-Gallegos proteinuria. There is evidence of anemia, with a hemoglobin of 9.2 g/dl that is normocytic. There is no evidence of leukopenia or thrombocytopenia. Serum calcium and serum creatinine are within the reference ranges. The patient underwent a bone survey on 06/21/2022 that did not disclose evidence of lytic lesions. She has not had cross-sectional imaging to assess for osseous or extraosseous disease. Veg F levels have not been assessed and no fat pad biopsy has been completed. Iron studies as of 3 weeks ago showing normal TIBC and transferrin saturation. Ferritin levels wereelevated to 1183 ng/mL. A broad micronutrient panel including vitamin B12, vitamin D, and copper isunremarkable. One symptoms of note that she does complain of is bilateral lower extremity neuropathy. She acknowledges bilateral lower extremity paresthesias to the level of the mid ankle with onset around the time of anasarca. These do not follow any particular dermatomal distribution. She denies significant pain or lower extremity weakness. 08/12/22: In the interim since our last visit, the patient underwent a fat pad biopsy that was unremarkable for evidence of amyloidosis. She also underwent an EGD and colonoscopy that disclosed mild gastritis. Biopsies from her endoscopies are pending. She notes that her fatigue and anasarca continue to worsen. She is tired enough on some days that she cannot walk to her car. She denies guy dyspnea, orthopnea, PND or palpitations. Her albumin remains low without evidence of diarrhea or proteinuria. Of note, her VEGF level was within the reference range. PET/CT scan revealed no evidence of osseous lytic disease. 09/10/2022: I discussed the results of the patient's MRI, which demonstrated approximately 2.0 cm marrow base lesions in the left and right ilium that are likely myelomatous. Patient itself is actually feeling better with reduced edema and anasarca. She denies fevers, chills, night sweats, nausea, vomiting, diarrhea, mucosal bleeding, or significant weight changes. Her coagulation parameters do not demonstrate evidence of synthetic liver dysfunction. Her hemoglobin remained stable and I do not have another ready explanation for her anemia. Unfortunately, her repeat bone marrow biopsy demonstrated inadequate cellularity. 09/23/2022: Patient presents to discuss initiation of therapy. Over the past 2 weeks, she has noted an improvement in her bilateral lower extremity edema to the extent that she has reduced her dose offurosemide at home. Her hemoglobin has improved by 1 g/dl, which may reflect hemoconcentration. Herbone marrow biopsy unfortunately yielded low cellularity as noted above. 11/23/2022: Patient returns for evaluation management of her underlying smoldering multiple myeloma.Continues her last visit, she notes that her energy levels improved, no lower extremity edema has also been less pronounced. She denies fevers, chills, night sweats, nausea, vomiting, diarrhea, significant weight changes, and lymphadenopathy. Her involved serum free light chain had been declining without intervention at her last check. 02/24/23: The patient reports that her edema has nearly resolved. She has augmented her dietary intake of protein and followed a ketogenic diet since our last visit with concomitant increase in heralbumin. Her abdominal pain and loose stools have also improved during this time. Paraprotein labs reveal continued spontaneous decline in her involved serum free light chain. 04/22/23: In the interim since her last visit, the patient denies fevers, chills, night sweats, nausea, vomiting, diarrhea, and further peripheral edema. Overall she feels well but is still strugglingwith her irritable bowel syndrome symptoms on a daily basis. Her paraprotein labs demonstrate a stable monoclonal free light chain and no evidence of worsening anemia, renal dysfunction, or hypercalcemia. 07/14/23: In the interim since her last visit, the patient's paraprotein labs demonstrate a stable lambda serum free light chain and a stable free light chain ratio. She remains hypogammaglobulinemic.There is no evidence of monoclonal paraprotein by protein electrophoresis. Immunofixation remains faintly positive for monoclonal lambda paraprotein as expected. There is no evidence of renal disease, anemia, or hypercalcemia. She denies fevers, chills, night sweats, nausea, vomiting, diarrhea, andworsening or new onset anasarca. Review of systems General: No fever , No chills, and No night sweats HEENT: No lumps, no difficulty chewing or swallowing, no enlarging tongue, no tooth aches. Musculoskeletal: See above Hematological: No bleeding or easy bruising. Lymphatic / Immune system: No lymph node enlargement or infection. Cardiovascular: No orthopnea, no dyspnea, no chest pain, no leg edema, no palpitations. Pulmonary: No dyspnea, no wheezing, no cough. PAST MEDICAL HISTORY Diagnosis Date Anxiety state, unspecified Depressive disorder, not elsewhere classified IBS (irritable bowel syndrome) Multiple chemical sensitivity syndrome Small intestinal bacterial overgrowth (SIBO) PAST SURGICAL HISTORY Procedure Laterality Date TOOTH EXTRACTION Allergies / intolerances ALLERGIES Allergen Reactions Amoxicillin Other: See Comments Codeine Other: See Comments Flavoring Agent (Bu* Other: See Comments Lactose Other: See Comments Peppermint Flavor Other: See Comments Medications levothyroxine (SYNTHROID) 50 mcg tablet Take 50 mcg by mouth once daily. 100 mcg 5 days a week. Other two days 50mcg. OTC PRODUCT Food enzymes 3x daily acetylcysteine (ACET-CYS) Take 1,000 mg by mouth once daily. cholecalciferol, vitamin D3, (D3-2000 ORAL) Take 2,000 mg by mouth once daily. Lactobacillus acidophilus (PROBIOTIC) 10 billion cell cap Take 133 capsules by mouth daily at bedtime. OTC PRODUCT Progesterone Cream 20ml 0.3ml once a day, Bi-estrogen (80/20) .625mg 0/2 ml twice a day(Patient taking differently: Progesterone Cream 20ml 0.3ml once a day,) Social History Tobacco Use Smoking status: Never Smokeless tobacco: Never Vaping Use Vaping Use: Never used Substance Use Topics Alcohol use: No Drug use: No FAMILY HISTORY Problem Relation Age of Onset Osteoporosis Mother Heart Mother afib GI Father IBS Margot Disease Sister other (environmental sensitivities [Other]) Sister both sisters Laboratory tests WBC (k/uL) Date Value 07/07/2023 6.39 04/21/2023 10.94 02/14/2023 6.71 11/24/2022 9.04 10/25/2022 7.83 09/27/2022 8.03 09/23/2022 6.73 08/27/2022 3.75 08/19/2022 5.50 07/08/2022 4.76 Abs Neut (k/uL) Date Value 07/07/2023 4.55 04/21/2023 9.13 02/14/2023 4.56 11/24/2022 6.84 10/25/2022 5.64 09/27/2022 6.12 09/23/2022 4.92 08/27/2022 2.61 08/19/2022 4.38 07/08/2022 3.67 Hemoglobin (g/dL) Date Value 07/07/2023 9.9 04/21/2023 10.4 02/14/2023 12.0 11/24/2022 10.8 10/25/2022 10.2 09/27/2022 10.0 09/23/2022 10.4 08/27/2022 9.4 08/19/2022 9.2 07/08/2022 9.2 Platelet Count (k/uL) Date Value 07/07/2023 301 04/21/2023 298 02/14/2023 316 11/24/2022 343 10/25/2022 301 09/27/2022 261 09/23/2022 304 08/27/2022 243 08/19/2022 147 07/08/2022 205 Glucose (mg/dL) Date Value 07/07/2023 95 04/21/2023 103 02/14/2023 105 11/24/2022 114 10/25/2022 102 09/27/2022 76 09/23/2022 107 08/27/2022 115 08/19/2022 85 06/21/2022 99 Creatinine (mg/dL) Date Value 07/07/2023 0.80 04/21/2023 0.89 02/14/2023 0.66 11/24/2022 0.71 10/25/2022 0.70 09/27/2022 0.95 09/23/2022 1.30 08/27/2022 0.91 08/19/2022 0.88 06/21/2022 0.92 Calcium, Total (mg/dL) Date Value 07/07/2023 9.9 04/21/2023 9.9 02/14/2023 9.8 11/24/2022 9.4 10/25/2022 9.0 09/27/2022 8.8 09/23/2022 9.1 08/27/2022 9.2 08/19/2022 8.9 06/21/2022 8.8 M-Protein Concentration (g/dL) Date Value 07/07/2023 0.00 04/21/2023 0.00 02/14/2023 0.00 11/24/2022 0.00 10/25/2022 0.00 09/23/2022 0.00 08/27/2022 0.00 06/21/2022 0.00 06/03/2022 0.00 M Gee Quant, 24 Hr Urine (g/24hr) Date Value 06/26/2022 0.00 [place] Free, Serum (mg/L) Date Value 07/07/2023 14.2 04/21/2023 13.0 02/14/2023 16.2 11/24/2022 19.2 10/25/2022 22.2 09/23/2022 29.8 08/27/2022 40.2 06/21/2022 35.6 06/03/2022 34.8 Lambda Free, Serum (mg/L) Date Value 07/07/2023 125.8 04/21/2023 129.1 02/14/2023 123.3 11/24/2022 135.8 10/25/2022 184.9 09/23/2022 268.8 08/27/2022 329.7 06/21/2022 397.8 06/03/2022 384.6 Interpretation (MPA) (no units) Date Value 07/07/2023 Poorly defined region of restricted mobility in the lambda fadi. Pattern is less well defined or fainter than typically seen in monoclonal gammopathy. This could represent either an atypical presentation of polyclonal immunoglobulins or the presence of a low level lambda containing monoclonal gammopathy. If clinically indicated, urine monoclonal protein analysis and serum free light chain measurements are recommended to evaluate further for monoclonal gammopathy. Clinical correlation is necessary. 02/14/2023 Poorly definded region of restricted mobility in IgG and lambda lanes. Pattern is less well definedor fainter than typically seen in monoclonal gammopathy. This could represent either an atypical presentation of polyclonal immunoglobulins or the presence of a low level IgG lambda monoclonal gammopathy. If clinically indicated, urine monoclonal protein analysis and serum free light chain measurements are recommended to evaluate further for monoclonal gammopathy. Clinical correlation is necessary. 06/03/2022 Poorly defined region of restricted mobility in the lambda fadi. Pattern is less well defined or fainter than typically seen in monoclonal gammopathy. This could represent either an atypical presentation of polyclonal immunoglobulins or the presence of a low level lambda containing monoclonal gammopathy. Imaging To be obtained Pathology: Bone marrow biopsy in progress Impression and Plan Cancer Staging No matching staging information was found for the patient. ##Monoclonal gammopathy of undetermined significance, lambda light chain subtype Cytogenetic risk category: Pending Frailty Score: 0 IMWG Response Criteria: Newly diagnosed Renal: Normal creatinine, clinically no evidence for renal dysfunction. Infectious diseases: No current infection, no need for prophylaxis Musculoskeletal: No current pain, no new lesions suspected. Bone modifying therapy: Diagnostic work-up pending Venous thromboembolism risk: Diagnostic work-up pending control counseling: Diagnostic work-up pending Neurology: Bilateral lower extremity sensory neuropathy as described above Health maintenance discussed: Regular exercise and Appropriate diet Side effects from current medications: None This is a 57-year-old female with approximately 2 years onset anasarca and hypoalbuminemia but doesnot adequately explained by either urinary protein losses or protein-losing enteropathy. 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 A paraprotein work-up ordered recently revealed an elevated lambda serum free light chain with a ratio of 0.09 in the context of anemia that has not been fully explained by micronutrient deficiency. Thus far, no hemolytic work-up has been ordered (though LDH is normal), bone marrow biopsy is pending, no fat pad biopsy has been ordered, and no EMG is available. Given her recent MRI, which demonstrates multiple marrow base lesions in the pelvis that are greater than 5 mm, I believe that the patient met criteria multiple myeloma and expressed this to her and her sister. We also discussed the definition of multiple myeloma including the IM WG 2014 criteria. The patient has declined treatment and her symptoms have improved with alteration in her diet. Her serum free light chains have improved and subsequently reached a plateau, possibly reflective of theresolution of an undiagnosed inflammatory process. Her anemia is also stabilized and she is no further evidence of bone disease. I remain concerned about the possibility of disease progression; however, with the overall improvement in her clinical condition with dietary alterations and the apparentimprovement in her paraproteinemia, we will continue active surveillance. We will consider repeat MRI at her next surveillance visit in three months. She will consider bone stabilizing therapy and we will revisit the issue at our next visit. Plan Summary: -Defer initiation of plasma cell directed therapy at present. -Fat pad biopsy negative; EMG and liver biopsy to be deferred at the moment due to improving symptoms -Repeat MRI in August 2023 and annually thereafter -We will discuss bone stabilizing agents once again at our next visit -Repeat paraproteins in 3 months -RTC virtually in 3 months Medical Decision Making: Problems: Moderate: 2+ stable chronic illnesses Data: Unique test result(s) reviewed: 3+ Unique test(s) ordered: 3+ Risk: Moderate: Moderate risk from testing/treatment Medical Decision Making Level: 4 - Moderate Johanna Mandel MD, [facility] Hematology and Medical Oncology [facility] [address], [place] [facility] [id number] CC: Dr. Mike Aguilar, Dr. Jenna Trevino documented in this encounterHolmes [facility] History of Present illness Narrative* Johanna Mandel MD - 02/24/2023 3:29 PM EST Images from the original note were not included. [facility] (Elements copied from Shauna White's note dated 06/21/22, have been reviewed and updated where appropriate, and all reflect current assessment and medical decision making during today's encounter, February 24, 2023) Reason for visit: Consult, referred by Shauna White for possible monoclonal gammopathy of renal signifiance. My recommendations to the consult requesting physician are communicated via the shared electronic medical record or US mail. This visit was conducted by Zoom. 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 Baseline assessment on initial diagnosis date 2022 Cancer Staging No matching staging information was found for the patient. No matching staging information was found for the patient. 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 and may represent an unusual presentation of polyclonal immunoglobulins, but cannot ruleout the presence of a low level M protein 06/03/2022 Related Organ or Tissue Involvement (CRAB) or other Myeloma Defining Event (MDE): Anemia (HgB < 10g/dL or 2g/dL below LLN), actual value: 9.1 g/dL Antecedent plasma cell dyscrasia: No Myeloma FISH panel: Cytogenetics: LDH: 156 U/L (100 - 220) ISS stage: Albumin: 2.9 g/dL, B2M: 2.7 mg/L [place] Stage: Monoclonal proteins at diagnosis: Serum M-spike: 0.00 gm/dL, kappa serum free light chains: 35.6 mg/L, lambda serum free light chains: 397.8 mg/L, Urinary m- protein: an atypical restricted band is present in the lambda region. The presence of free lambda light chains in the urine is consistent witha lambda- containing monoclonal gammopathy, Urinary protein excretion: 0.07 g/24hrs, Urinary albumin: 31.43 %, and Urinary m-protein present Not measurable Total immunoglobulins at diagnosis: IgG 244 mg/dL, IgA 31 mg/dL, IgM 16 mg/dL Bone marrow plasma cell infiltration: % Systemic treatment and disease course -No prior systemic therapy Local treatments (radiation, surgery, kyphoplasty) -No prior local therapy History of prior work up illness (Dr. 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 Patient apparently had been referred to nephrology for anasarca and to evaluate for nephrotic syndrome. She had been hospitalized in February 2022 and seen by hematology for anemia andnephrology for hypoalbuminemia and anasarca. Her albumin was low at 2.5 and Hgb 8.8 in February 2022. A 24 hour urine protein showed just 55 mg of protein and no M spike on UIFE. Patient had been trying to increase her protein intake and was on a fluid restricted diet. She continued to have significant edema. She was intolerant to Bumex as it caused dizziness and slurred speech. She was discharged on Lasix 20 mg daily. She saw GI for elevated liver function tests -- viral hepatitis studies wereunremarkable. Apparently a colonoscopy had been attempted (patient says on three occasions), with poor prep. She was told she had problems with malabsorption. An abdominal ultrasound on 12/29/2021 showed normal liver and no ascites. CT of the abdomen from 03/18/2022 was unremarkable. CK was elevatedat 700 but with elevated myoglobin at 86 (normal 25-58). Urine free light chains apparently showed a Bence Gallegos protein, but on repeat was negative when evaluated by hematology. On 05/10/2022, Hgb 9.8 with creatinine 0.96 (up from baseline a few months prior ~0.5), BUN 44, potassium 4.7 while on Lasix 20 mg daily. CRP and ESR may have been mildly elevated in the past. Patient complained of generalized weakness, fatigue, not being able to do her daily chores at home. Exam was notable for 4+ pitting edema in the legs, a resting tremor. Patient's elevated creatinine and BUN were explained by diuretic therapy. Some immunologic serologies were ordered given concern for myositis with elevated CK.Patient was encouraged to continue Lasix. She was also encouraged to follow-up with hematology regarding anemia. This visit, patient confirms the above history. She elaborates that her symptoms began about a yearago, when she went to the ED and was told her serum protein was low. She says the swelling is mostly in her legs, but she also has noticed some swelling along the left breast and left upper extremity. She has been increasing her protein intake - consuming 90 mg protein through her diet and an additional 45 g through supplemental protein shakes. She tells me no significant proteinuria has been identified in her urine. Regarding a possible protein losing enteropathy, she endorses a history of small intestinal bacterial overgrowth (SIBO) characterized by bloating and constipation; she denies diar emory or loose stools. She reports having tried rifaxamin without improvement. She denies a history of congestive heart failure and reports having had a normal echocardiogram. A BNP was checked on 03/15/2022 and was minimally elevated at 117.2 pg/mL (ref range 0-100). She has gained a lot of weight,due to fluid retention with third spacing, as she is severely hypoalbuminemic. She has also had negative testing for SAYRA by IFA (05/18/2022), ANCA (05/12/2022), normal serum complements (C3 & C4), normal CRP (<2.90) and slightly elevated ESR (33) on 05/12/22. CK was elevated at 283 (05/12/22). Iron studies have been consistent with iron deficiency, for which patient reports having had iron infusions. Ferritin 14 L, iron 34 L, iron saturation 8.1% L, TIBC 419 (05/20/22). Regarding her iron deficiency, she denies hematochezia, melena, gross hematuria, hemoptysis, or a family history of cancer. As mentioned above, she had a CT chest, abdomen, and pelvis on 03/18/2022 which was apparently negative. Regarding her elevated CK level, she relates generalized muscle weakness, which is most pronounced in the legs as opposed to the upper extremities. She is essentially bed-bound at this time. She is unable to perform activities of daily living without assistance. Her vitamin B12 has actually been very high, but she attributes this to having previously been taking a B complex vitamin. She has had an abnormally low serum kappa/lambda ratio of 0.13 (normal 0.26 - 1.65) on 05/20/2022. All of her serum immunoglobulins have been low (IgA 40, IgG 251, IgM 18) on 05/20/2022. Her TSH was elevated to 11.40 but with normal free T4 of 1.10 on 05/20/2022. She has a history of hypothyroidism and takes levothyroxine. She reports a past history of having taken [place] thyroid. Kfwar-0-kbwqzedcdxi serum was normal at 212 mg/dL on 05/19/2022. Other labs from 05/20/2022 reveal CHANO with negative M spike. Low total protein at 4.9, and an abnormal kappa/lambda ratio of 0.13. Patient's sister is concerned that she might have an unusual form of multiple myeloma, presenting as lymphedema (she brought a copy of the paper to the visit today). Patient and her family want to see hematology for additional work-up, including bone marrow biopsy. Other labs, from 06/01/22 show CBC with WBC 6.4, Hgb 9.0 (MCV 94.2), Plt 170. CBC diff with anisocytosis, target cells. Cr 0.73, BUN 36, CO2, Na 142, K 4.0, CO2 31. AST 84, ALT 85, albumin 2.0. Normal FT4 and low FT3. Haley says she is a 'very sensitive person.' She used to take '22 supplements,' but is taking a lotless now. She denies history of vegan diet; she has a good appetite and reports a robust balanced diet. She endorses a strong family history of Margot's thyroiditis, but denies other autoimmune disease. 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 She reports being up-to-date with age-appropriate cancer screening and had a mammogram within the past few years, PAP one year ago. She says her grandmother from colon cancer. Haley denies fevers or chills. She does have some cold sweats at night. She is gaining 1 lb per day. She denies photosensitivity. She denies dry eye. She has dry mouth which she attributes to fluidrestriction. She denies oral or nasal ulcers. She denies malar rash. She does endorse a rash on herabdomen. She denies gross hematuria or frothy urine. She endorses a history of SIBO and bloating with constipation, as discussed above. She denies joint pain. She relates some chronic sinus issues. She endorses a dry cough, but denies hemoptysis. She denies raynaud's phenomenon, digital ulcerations. She does have some shortness of breath. She has some mild heartburn. Denies hematochezia or melena. She endorses imbalance and tremor. Interim updates: 07/08/2022: The patient presents for further evaluation and management of what he is principally anasarca related to hypoalbuminemia of unclear etiology. Similar to the initial history noted above, the patient at today's visit denies a history of significant diarrhea that 1 would expect in a malabsorptive syndrome or protein-losing enteropathy. As noted above, there is no evidence of heavy proteinuria that would be suggestive of amyloid renal involvement or another glomerular disorder leading tonephrotic syndrome. 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 No formal testing of the adrenal axis is evidence to me on my chart review. Patient notes that she is planned for repeat colonoscopy and her sister, who accompanies her during the visit, strongly convinced that this will disclose evidence ofamyloidosis. In terms of amyloid agenic symptoms, the patient denies any tongue swelling, new rash, dizziness, lightheadedness, palpitations, dyspnea, orthopnea, or PND. Her NT pro BNP was within the reference range as of 06/03/2022. There is no echocardiogram for me to review at present. Her most recent paraprotein work-up reveals an unremarkable immunofixation, a significantly elevated lambda serum free lightchain to 397 mg/L with a KL ratio of 0.09, benito hypogammaglobulinemia, and a 24-hour urine protein that is within the reference range. I do not see a completed urine protein electrophoresis to assess for Bence-Gallegos proteinuria. There is evidence of anemia, with a hemoglobin of 9.2 g/dl that is normocytic. There is no evidence of leukopenia or thrombocytopenia. Serum calcium and serum creatinine are within the reference ranges. The patient underwent a bone survey on 06/21/2022 that did not disclose evidence of lytic lesions. She has not had cross-sectional imaging to assess for osseous or extraosseous disease. Veg F levels have not been assessed and no fat pad biopsy has been completed. Iron studies as of 3 weeks ago showing normal TIBC and transferrin saturation. Ferritin levels wereelevated to 1183 ng/mL. A broad micronutrient panel including vitamin B12, vitamin D, and copper isunremarkable. One symptoms of note that she does complain of is bilateral lower extremity neuropathy. She acknowledges bilateral lower extremity paresthesias to the level of the mid ankle with onset around the time of anasarca. These do not follow any particular dermatomal distribution. She denies significant pain or lower extremity weakness. 08/12/22: In the interim since our last visit, the patient underwent a fat pad biopsy that was unremarkable for evidence of amyloidosis. She also underwent an EGD and colonoscopy that disclosed mild gastritis. Biopsies from her endoscopies are pending. She notes that her fatigue and anasarca continue to worsen. She is tired enough on some days that she cannot walk to her car. She denies guy dyspnea, orthopnea, PND or palpitations. Her albumin remains low without evidence of diarrhea or proteinuria. Of note, her VEGF level was within the reference range. PET/CT scan revealed no evidence of osseous lytic disease. 09/10/2022: I discussed the results of the patient's MRI, which demonstrated approximately 2.0 cm marrow base lesions in the left and right ilium that are likely myelomatous. Patient itself is actually feeling better with reduced edema and anasarca. She denies fevers, chills, night sweats, nausea, vomiting, diarrhea, mucosal bleeding, or significant weight changes. Her coagulation parameters do not demonstrate evidence of synthetic liver dysfunction. Her hemoglobin remained stable and I do not have another ready explanation for her anemia. Unfortunately, her repeat bone marrow biopsy demonstrated inadequate cellularity. 09/23/2022: Patient presents to discuss initiation of therapy. Over the past 2 weeks, she has noted an improvement in her bilateral lower extremity edema to the extent that she has reduced her dose offurosemide at home. Her hemoglobin has improved by 1 g/dl, which may reflect hemoconcentration. Herbone marrow biopsy unfortunately yielded low cellularity as noted above. 11/23/2022: Patient returns for evaluation management of her underlying smoldering multiple myeloma.Continues her last visit, she notes that her energy levels improved, no lower extremity edema has also been less pronounced. She denies fevers, chills, night sweats, nausea, vomiting, diarrhea, significant weight changes, and lymphadenopathy. Her involved serum free light chain had been declining without intervention at her last check. 02/24/23: The patient reports that her edema has nearly resolved. She has augmented her dietary intake of protein and followed a ketogenic diet since our last visit with concomitant increase in heralbumin. Her abdominal pain and loose stools have also improved during this time. Paraprotein labs reveal continued spontaneous decline in her involved serum free light chain. Review of systems General: No fever , No chills, and No night sweats HEENT: No lumps, no difficulty chewing or swallowing, no enlarging tongue, no tooth aches. Musculoskeletal: See above Hematological: No bleeding or easy bruising. Lymphatic / Immune system: No lymph node enlargement or infection. Cardiovascular: No orthopnea, no dyspnea, no chest pain, no leg edema, no palpitations. Pulmonary: No dyspnea, no wheezing, no cough. PAST MEDICAL HISTORY Diagnosis Date Anxiety state, unspecified Depressive disorder, not elsewhere classified IBS (irritable bowel syndrome) Multiple chemical sensitivity syndrome Small intestinal bacterial overgrowth (SIBO) PAST SURGICAL HISTORY Procedure Laterality Date TOOTH EXTRACTION Allergies / intolerances ALLERGIES Allergen Reactions Amoxicillin Other: See Comments Codeine Other: See Comments Flavoring Agent (Bu* Other: See Comments Lactose Other: See Comments Peppermint Flavor Other: See Comments Medications levothyroxine (SYNTHROID) 50 mcg tablet Take 50 mcg by mouth once daily. 100 mcg 5 days a week. Other two days 50mcg. OTC PRODUCT Food enzymes 3x daily acetylcysteine (ACET-CYS) Take 1,000 mg by mouth once daily. cholecalciferol, vitamin D3, (D3-2000 ORAL) Take 2,000 mg by mouth once daily. Lactobacillus acidophilus (PROBIOTIC) 10 billion cell cap Take 133 capsules by mouth daily at bedtime. OTC PRODUCT Progesterone Cream 20ml 0.3ml once a day, Bi-estrogen (80/20) .625mg 0/2 ml twice a day(Patient taking differently: Progesterone Cream 20ml 0.3ml once a day,) Social History Tobacco Use Smoking status: Never Smokeless tobacco: Never Vaping Use Vaping Use: Never used Substance Use Topics Alcohol use: No Drug use: No FAMILY HISTORY Problem Relation Age of Onset Osteoporosis Mother Heart Mother afib GI Father IBS Margot Disease Sister other (environmental sensitivities [Other]) Sister both sisters Laboratory tests WBC (k/uL) Date Value 02/14/2023 6.71 11/24/2022 9.04 10/25/2022 7.83 09/27/2022 8.03 09/23/2022 6.73 08/27/2022 3.75 08/19/2022 5.50 07/08/2022 4.76 06/21/2022 5.03 Abs Neut (k/uL) Date Value 02/14/2023 4.56 11/24/2022 6.84 10/25/2022 5.64 09/27/2022 6.12 09/23/2022 4.92 08/27/2022 2.61 08/19/2022 4.38 07/08/2022 3.67 06/21/2022 4.27 Hemoglobin (g/dL) Date Value 02/14/2023 12.0 11/24/2022 10.8 10/25/2022 10.2 09/27/2022 10.0 09/23/2022 10.4 08/27/2022 9.4 08/19/2022 9.2 07/08/2022 9.2 06/21/2022 9.1 Platelet Count (k/uL) Date Value 02/14/2023 316 11/24/2022 343 10/25/2022 301 09/27/2022 261 09/23/2022 304 08/27/2022 243 08/19/2022 147 07/08/2022 205 06/21/2022 179 Glucose (mg/dL) Date Value 02/14/2023 105 11/24/2022 114 10/25/2022 102 09/27/2022 76 09/23/2022 107 08/27/2022 115 08/19/2022 85 06/21/2022 99 Creatinine (mg/dL) Date Value 02/14/2023 0.66 11/24/2022 0.71 10/25/2022 0.70 09/27/2022 0.95 09/23/2022 1.30 08/27/2022 0.91 08/19/2022 0.88 06/21/2022 0.92 Calcium, Total (mg/dL) Date Value 02/14/2023 9.8 11/24/2022 9.4 10/25/2022 9.0 09/27/2022 8.8 09/23/2022 9.1 08/27/2022 9.2 08/19/2022 8.9 06/21/2022 8.8 M-Protein Concentration (g/dL) Date Value 02/14/2023 0.00 11/24/2022 0.00 10/25/2022 0.00 09/23/2022 0.00 08/27/2022 0.00 06/21/2022 0.00 06/03/2022 0.00 M Gee Quant, 24 Hr Urine (g/24hr) Date Value 06/26/2022 0.00 [place] Free, Serum (mg/L) Date Value 02/14/2023 16.2 11/24/2022 19.2 10/25/2022 22.2 09/23/2022 29.8 08/27/2022 40.2 06/21/2022 35.6 06/03/2022 34.8 Lambda Free, Serum (mg/L) Date Value 02/14/2023 123.3 11/24/2022 135.8 10/25/2022 184.9 09/23/2022 268.8 08/27/2022 329.7 06/21/2022 397.8 06/03/2022 384.6 Interpretation (MPA) (no units) Date Value 02/14/2023 Poorly definded region of restricted mobility in IgG and lambda lanes. Pattern is less well definedor fainter than typically seen in monoclonal gammopathy. This could represent either an atypical presentation of polyclonal immunoglobulins or the presence of a low level IgG lambda monoclonal gammopathy. If clinically indicated, urine monoclonal protein analysis and serum free light chain measurements are recommended to evaluate further for monoclonal gammopathy. Clinical correlation is necessary. 06/03/2022 Poorly defined region of restricted mobility in the lambda fadi. Pattern is less well defined or fainter than typically seen in monoclonal gammopathy. This could represent either an atypical presentation of polyclonal immunoglobulins or the presence of a low level lambda containing monoclonal gammopathy. Imaging To be obtained Pathology: Bone marrow biopsy in progress Impression and Plan Cancer Staging No matching staging information was found for the patient. ##Monoclonal gammopathy of undetermined significance, lambda light chain subtype Cytogenetic risk category: Pending Frailty Score: 0 IMWG Response Criteria: Newly diagnosed Renal: Normal creatinine, clinically no evidence for renal dysfunction. Infectious diseases: No current infection, no need for prophylaxis Musculoskeletal: No current pain, no new lesions suspected. Bone modifying therapy: Diagnostic work-up pending Venous thromboembolism risk: Diagnostic work-up pending control counseling: Diagnostic work-up pending Neurology: Bilateral lower extremity sensory neuropathy as described above Health maintenance discussed: Regular exercise and Appropriate diet Side effects from current medications: None This is a 57-year-old female with approximately 2 years onset anasarca and hypoalbuminemia but doesnot adequately explained by either urinary protein losses or protein-losing enteropathy. 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 A paraprotein work-up ordered recently revealed an elevated lambda serum free light chain with a ratio of 0.09 in the context of anemia that has not been fully explained by micronutrient deficiency. Thus far, no hemolytic work-up has been ordered (though LDH is normal), bone marrow biopsy is pending, no fat pad biopsy has been ordered, and no EMG is available. Given her recent MRI, which demonstrates multiple marrow base lesions in the pelvis that are greater than 5 mm, I believe that the patient met criteria multiple myeloma and expressed this to her and her sister. We also discussed the definition of multiple myeloma including the IM WG 2014 criteria. The patient has declined treatment and her symptoms have improved with alteration in her diet. Her serum free light chains have improved and subsequently reached a plateau, possibly reflective of theresolution of an undiagnosed inflammatory process. I remain concerned about the possibility of disease progression; however, with the overall improvement in her clinical condition with dietary alterations and the apparent improvement in her paraproteinemia, we will continue active surveillance. Plan Summary: -Defer initiation of plasma cell directed therapy at present. -Fat pad biopsy negative; EMG and liver biopsy to be deferred at the moment due to improving symptoms -RTC virtually in 2 months; paraprotein labs to be repeated at an outside [facility] facility Johanna Mandel MD, [facility] Hematology and Medical Oncology [facility] [address], [place] [facility] [id number] CC: Dr. Mike Aguilar, Dr. Jenna Trevino documented in this encounterHolmes [facility]08-30-2023 History of Present illness Narrative* Johanna Mandel MD - 11/24/2022 1:37 PM EDT Images from the original note were not included. [facility] (Elements copied from Shauna White's note dated 06/21/22, have been reviewed and updated where appropriate, and all reflect current assessment and medical decision making during today's encounter, November 24, 2022) Reason for visit: Consult, referred by Shauna White for possible monoclonal gammopathy of renal signifiance. My recommendations to the consult requesting physician are communicated via the shared electronic medical record or US mail. This visit was conducted by Zoom. 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 Baseline assessment on initial diagnosis date 2022 Cancer Staging No matching staging information was found for the patient. No matching staging information was found for the patient. 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 and may represent an unusual presentation of polyclonal immunoglobulins, but cannot ruleout the presence of a low level M protein 06/03/2022 Related Organ or Tissue Involvement (CRAB) or other Myeloma Defining Event (MDE): Anemia (HgB < 10g/dL or 2g/dL below LLN), actual value: 9.1 g/dL Antecedent plasma cell dyscrasia: No Myeloma FISH panel: Cytogenetics: LDH: 156 U/L (100 - 220) ISS stage: Albumin: 2.9 g/dL, B2M: 2.7 mg/L [place] Stage: Monoclonal proteins at diagnosis: Serum M-spike: 0.00 gm/dL, kappa serum free light chains: 35.6 mg/L, lambda serum free light chains: 397.8 mg/L, Urinary m- protein: an atypical restricted band is present in the lambda region. The presence of free lambda light chains in the urine is consistent witha lambda- containing monoclonal gammopathy, Urinary protein excretion: 0.07 g/24hrs, Urinary albumin: 31.43 %, and Urinary m-protein present Not measurable Total immunoglobulins at diagnosis: IgG 244 mg/dL, IgA 31 mg/dL, IgM 16 mg/dL Bone marrow plasma cell infiltration: % Systemic treatment and disease course -No prior systemic therapy Local treatments (radiation, surgery, kyphoplasty) -No prior local therapy History of prior work up illness (Dr. 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 Patient apparently had been referred to nephrology for anasarca and to evaluate for nephrotic syndrome. She had been hospitalized in February 2022 and seen by hematology for anemia andnephrology for hypoalbuminemia and anasarca. Her albumin was low at 2.5 and Hgb 8.8 in February 2022. A 24 hour urine protein showed just 55 mg of protein and no M spike on UIFE. Patient had been trying to increase her protein intake and was on a fluid restricted diet. She continued to have significant edema. She was intolerant to Bumex as it caused dizziness and slurred speech. She was discharged on Lasix 20 mg daily. She saw GI for elevated liver function tests -- viral hepatitis studies wereunremarkable. Apparently a colonoscopy had been attempted (patient says on three occasions), with poor prep. She was told she had problems with malabsorption. An abdominal ultrasound on 12/29/2021 showed normal liver and no ascites. CT of the abdomen from 03/18/2022 was unremarkable. CK was elevatedat 700 but with elevated myoglobin at 86 (normal 25-58). Urine free light chains apparently showed a Bence Gallegos protein, but on repeat was negative when evaluated by hematology. On 05/10/2022, Hgb 9.8 with creatinine 0.96 (up from baseline a few months prior ~0.5), BUN 44, potassium 4.7 while on Lasix 20 mg daily. CRP and ESR may have been mildly elevated in the past. Patient complained of generalized weakness, fatigue, not being able to do her daily chores at home. Exam was notable for 4+ pitting edema in the legs, a resting tremor. Patient's elevated creatinine and BUN were explained by diuretic therapy. Some immunologic serologies were ordered given concern for myositis with elevated CK.Patient was encouraged to continue Lasix. She was also encouraged to follow-up with hematology regarding anemia. This visit, patient confirms the above history. She elaborates that her symptoms began about a yearago, when she went to the ED and was told her serum protein was low. She says the swelling is mostly in her legs, but she also has noticed some swelling along the left breast and left upper extremity. She has been increasing her protein intake - consuming 90 mg protein through her diet and an additional 45 g through supplemental protein shakes. She tells me no significant proteinuria has been identified in her urine. Regarding a possible protein losing enteropathy, she endorses a history of small intestinal bacterial overgrowth (SIBO) characterized by bloating and constipation; she denies diar emory or loose stools. She reports having tried rifaxamin without improvement. She denies a history of congestive heart failure and reports having had a normal echocardiogram. A BNP was checked on 03/15/2022 and was minimally elevated at 117.2 pg/mL (ref range 0-100). She has gained a lot of weight,due to fluid retention with third spacing, as she is severely hypoalbuminemic. She has also had negative testing for SAYRA by IFA (05/18/2022), ANCA (05/12/2022), normal serum complements (C3 & C4), normal CRP (<2.90) and slightly elevated ESR (33) on 05/12/22. CK was elevated at 283 (05/12/22). Iron studies have been consistent with iron deficiency, for which patient reports having had iron infusions. Ferritin 14 L, iron 34 L, iron saturation 8.1% L, TIBC 419 (05/20/22). Regarding her iron deficiency, she denies hematochezia, melena, gross hematuria, hemoptysis, or a family history of cancer. As mentioned above, she had a CT chest, abdomen, and pelvis on 03/18/2022 which was apparently negative. Regarding her elevated CK level, she relates generalized muscle weakness, which is most pronounced in the legs as opposed to the upper extremities. She is essentially bed-bound at this time. She is unable to perform activities of daily living without assistance. Her vitamin B12 has actually been very high, but she attributes this to having previously been taking a B complex vitamin. She has had an abnormally low serum kappa/lambda ratio of 0.13 (normal 0.26 - 1.65) on 05/20/2022. All of her serum immunoglobulins have been low (IgA 40, IgG 251, IgM 18) on 05/20/2022. Her TSH was elevated to 11.40 but with normal free T4 of 1.10 on 05/20/2022. She has a history of hypothyroidism and takes levothyroxine. She reports a past history of having taken [place] thyroid. [id number]-[id number] serum was normal at 212 mg/dL on 05/19/2022. Other labs from 05/20/2022 reveal CHANO with negative M spike. Low total protein at 4.9, and an abnormal kappa/lambda ratio of 0.13. Patient's sister is concerned that she might have an unusual form of multiple myeloma, presenting as lymphedema (she brought a copy of the paper to the visit today). Patient and her family want to see hematology for additional work-up, including bone marrow biopsy. Other labs, from 06/01/22 show CBC with WBC 6.4, Hgb 9.0 (MCV 94.2), Plt 170. CBC diff with anisocytosis, target cells. Cr 0.73, BUN 36, CO2, Na 142, K 4.0, CO2 31. AST 84, ALT 85, albumin 2.0. Normal FT4 and low FT3. Haley says she is a 'very sensitive person.' She used to take '22 supplements,' but is taking a lotless now. She denies history of vegan diet; she has a good appetite and reports a robust balanced diet. She endorses a strong family history of Margot's thyroiditis, but denies other autoimmune disease. 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 She reports being up-to-date with age-appropriate cancer screening and had a mammogram within the past few years, PAP one year ago. She says her grandmother from colon cancer. Haley denies fevers or chills. She does have some cold sweats at night. She is gaining 1 lb per day. She denies photosensitivity. She denies dry eye. She has dry mouth which she attributes to fluidrestriction. She denies oral or nasal ulcers. She denies malar rash. She does endorse a rash on herabdomen. She denies gross hematuria or frothy urine. She endorses a history of SIBO and bloating with constipation, as discussed above. She denies joint pain. She relates some chronic sinus issues. She endorses a dry cough, but denies hemoptysis. She denies raynaud's phenomenon, digital ulcerations. She does have some shortness of breath. She has some mild heartburn. Denies hematochezia or melena. She endorses imbalance and tremor. Interim updates: 07/08/2022: The patient presents for further evaluation and management of what he is principally anasarca related to hypoalbuminemia of unclear etiology. Similar to the initial history noted above, the patient at today's visit denies a history of significant diarrhea that 1 would expect in a malabsorptive syndrome or protein-losing enteropathy. As noted above, there is no evidence of heavy proteinuria that would be suggestive of amyloid renal involvement or another glomerular disorder leading tonephrotic syndrome. 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 No formal testing of the adrenal axis is evidence to me on my chart review. Patient notes that she is planned for repeat colonoscopy and her sister, who accompanies her during the visit, strongly convinced that this will disclose evidence ofamyloidosis. In terms of amyloid agenic symptoms, the patient denies any tongue swelling, new rash, dizziness, lightheadedness, palpitations, dyspnea, orthopnea, or PND. Her NT pro BNP was within the reference range as of 06/03/2022. There is no echocardiogram for me to review at present. Her most recent paraprotein work-up reveals an unremarkable immunofixation, a significantly elevated lambda serum free lightchain to 397 mg/L with a KL ratio of 0.09, benito hypogammaglobulinemia, and a 24-hour urine protein that is within the reference range. I do not see a completed urine protein electrophoresis to assess for Bence-Gallegos proteinuria. There is evidence of anemia, with a hemoglobin of 9.2 g/dl that is normocytic. There is no evidence of leukopenia or thrombocytopenia. Serum calcium and serum creatinine are within the reference ranges. The patient underwent a bone survey on 06/21/2022 that did not disclose evidence of lytic lesions. She has not had cross-sectional imaging to assess for osseous or extraosseous disease. Veg F levels have not been assessed and no fat pad biopsy has been completed. Iron studies as of 3 weeks ago showing normal TIBC and transferrin saturation. Ferritin levels wereelevated to 1183 ng/mL. A broad micronutrient panel including vitamin B12, vitamin D, and copper isunremarkable. One symptoms of note that she does complain of is bilateral lower extremity neuropathy. She acknowledges bilateral lower extremity paresthesias to the level of the mid ankle with onset around the time of anasarca. These do not follow any particular dermatomal distribution. She denies significant pain or lower extremity weakness. 08/12/22: In the interim since our last visit, the patient underwent a fat pad biopsy that was unremarkable for evidence of amyloidosis. She also underwent an EGD and colonoscopy that disclosed mild gastritis. Biopsies from her endoscopies are pending. She notes that her fatigue and anasarca continue to worsen. She is tired enough on some days that she cannot walk to her car. She denies guy dyspnea, orthopnea, PND or palpitations. Her albumin remains low without evidence of diarrhea or proteinuria. Of note, her VEGF level was within the reference range. PET/CT scan revealed no evidence of osseous lytic disease. 09/10/2022: I discussed the results of the patient's MRI, which demonstrated approximately 2.0 cm marrow base lesions in the left and right ilium that are likely myelomatous. Patient itself is actually feeling better with reduced edema and anasarca. She denies fevers, chills, night sweats, nausea, vomiting, diarrhea, mucosal bleeding, or significant weight changes. Her coagulation parameters do not demonstrate evidence of synthetic liver dysfunction. Her hemoglobin remained stable and I do not have another ready explanation for her anemia. Unfortunately, her repeat bone marrow biopsy demonstrated inadequate cellularity. 09/23/2022: Patient presents to discuss initiation of therapy. Over the past 2 weeks, she has noted an improvement in her bilateral lower extremity edema to the extent that she has reduced her dose offurosemide at home. Her hemoglobin has improved by 1 g/dl, which may reflect hemoconcentration. Herbone marrow biopsy unfortunately yielded low cellularity as noted above. 11/23/2022: Patient returns for evaluation management of her underlying smoldering multiple myeloma.Continues her last visit, she notes that her energy levels improved, no lower extremity edema has also been less pronounced. She denies fevers, chills, night sweats, nausea, vomiting, diarrhea, significant weight changes, and lymphadenopathy. Her involved serum free light chain had been declining without intervention at her last check. Review of systems General: No fever , No chills, and No night sweats HEENT: No lumps, no difficulty chewing or swallowing, no enlarging tongue, no tooth aches. Musculoskeletal: See above Hematological: No bleeding or easy bruising. Lymphatic / Immune system: No lymph node enlargement or infection. Cardiovascular: No orthopnea, no dyspnea, no chest pain, no leg edema, no palpitations. Pulmonary: No dyspnea, no wheezing, no cough. PAST MEDICAL HISTORY Diagnosis Date Anxiety state, unspecified Depressive disorder, not elsewhere classified IBS (irritable bowel syndrome) Multiple chemical sensitivity syndrome Small intestinal bacterial overgrowth (SIBO) PAST SURGICAL HISTORY Procedure Laterality Date TOOTH EXTRACTION Allergies / intolerances ALLERGIES Allergen Reactions Amoxicillin Other: See Comments Codeine Other: See Comments Flavoring Agent (Bu* Other: See Comments Lactose Other: See Comments Peppermint Flavor Other: See Comments Medications levothyroxine (SYNTHROID) 50 mcg tablet Take 50 mcg by mouth once daily. 100 mcg 5 days a week. Other two days 50mcg. OTC PRODUCT Food enzymes 3x daily acetylcysteine (ACET-CYS) Take 1,000 mg by mouth once daily. cholecalciferol, vitamin D3, (D3-2000 ORAL) Take 2,000 mg by mouth once daily. Lactobacillus acidophilus (PROBIOTIC) 10 billion cell cap Take 133 capsules by mouth daily at bedtime. OTC PRODUCT Progesterone Cream 20ml 0.3ml once a day, Bi-estrogen (80/20) .625mg 0/2 ml twice a day(Patient taking differently: Progesterone Cream 20ml 0.3ml once a day,) Social History Tobacco Use Smoking status: Never Smokeless tobacco: Never Vaping Use Vaping Use: Never used Substance Use Topics Alcohol use: No Drug use: No FAMILY HISTORY Problem Relation Age of Onset Osteoporosis Mother Heart Mother afib GI Father IBS Margot Disease Sister other (environmental sensitivities [Other]) Sister both sisters Laboratory tests WBC (k/uL) Date Value 11/24/2022 9.04 10/25/2022 7.83 09/27/2022 8.03 09/23/2022 6.73 08/27/2022 3.75 08/19/2022 5.50 07/08/2022 4.76 06/21/2022 5.03 Abs Neut (k/uL) Date Value 11/24/2022 6.84 10/25/2022 5.64 09/27/2022 6.12 09/23/2022 4.92 08/27/2022 2.61 08/19/2022 4.38 07/08/2022 3.67 06/21/2022 4.27 Hemoglobin (g/dL) Date Value 11/24/2022 10.8 10/25/2022 10.2 09/27/2022 10.0 09/23/2022 10.4 08/27/2022 9.4 08/19/2022 9.2 07/08/2022 9.2 06/21/2022 9.1 Platelet Count (k/uL) Date Value 11/24/2022 343 10/25/2022 301 09/27/2022 261 09/23/2022 304 08/27/2022 243 08/19/2022 147 07/08/2022 205 06/21/2022 179 Glucose (mg/dL) Date Value 11/24/2022 114 10/25/2022 102 09/27/2022 76 09/23/2022 107 08/27/2022 115 08/19/2022 85 06/21/2022 99 Creatinine (mg/dL) Date Value 11/24/2022 0.71 10/25/2022 0.70 09/27/2022 0.95 09/23/2022 1.30 08/27/2022 0.91 08/19/2022 0.88 06/21/2022 0.92 Calcium, Total (mg/dL) Date Value 11/24/2022 9.4 10/25/2022 9.0 09/27/2022 8.8 09/23/2022 9.1 08/27/2022 9.2 08/19/2022 8.9 06/21/2022 8.8 M-Protein Concentration (g/dL) Date Value 10/25/2022 0.00 09/23/2022 0.00 08/27/2022 0.00 06/21/2022 0.00 06/03/2022 0.00 M Gee Quant, 24 Hr Urine (g/24hr) Date Value 06/26/2022 0.00 [place] Free, Serum (mg/L) Date Value 10/25/2022 22.2 09/23/2022 29.8 08/27/2022 40.2 06/21/2022 35.6 06/03/2022 34.8 Lambda Free, Serum (mg/L) Date Value 10/25/2022 184.9 09/23/2022 268.8 08/27/2022 329.7 06/21/2022 397.8 06/03/2022 384.6 Interpretation (MPA) (no units) Date Value 06/03/2022 Poorly defined region of restricted mobility in the lambda fadi. Pattern is less well defined or fainter than typically seen in monoclonal gammopathy. This could represent either an atypical presentation of polyclonal immunoglobulins or the presence of a low level lambda containing monoclonal gammopathy. Imaging To be obtained Pathology: Bone marrow biopsy in progress Impression and Plan Cancer Staging No matching staging information was found for the patient. ##Monoclonal gammopathy of undetermined significance, lambda light chain subtype Cytogenetic risk category: Pending Frailty Score: 0 IMWG Response Criteria: Newly diagnosed Renal: Normal creatinine, clinically no evidence for renal dysfunction. Infectious diseases: No current infection, no need for prophylaxis Musculoskeletal: No current pain, no new lesions suspected. Bone modifying therapy: Diagnostic work-up pending Venous thromboembolism risk: Diagnostic work-up pending control counseling: Diagnostic work-up pending Neurology: Bilateral lower extremity sensory neuropathy as described above Health maintenance discussed: Regular exercise and Appropriate diet Side effects from current medications: None This is a 57-year-old female with approximately 2 years onset anasarca and hypoalbuminemia but doesnot adequately explained by either urinary protein losses or protein-losing enteropathy. 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 A paraprotein work-up ordered recently revealed an elevated lambda serum free light chain with a ratio of 0.09 in the context of anemia that has not been fully explained by micronutrient deficiency. Thus far, no hemolytic work-up has been ordered (though LDH is normal), bone marrow biopsy is pending, no fat pad biopsy has been ordered, and no EMG is available. Given her recent MRI, which demonstrates multiple marrow base lesions in the pelvis that are greater than 5 mm, believe that the patient has multiple myeloma and expressed this to her and her sister.We also discussed the definition of multiple myeloma including the IM WG 2014 criteria. Given that her sister symptoms are improving, patient's sister adamantly wanted to defer the initiation of chemotherapy. Overall, the patient's poor condition remains stable at the present visit and her paraprotein remained stable as well. There is no evidence of renal dysfunction, worsening anemia, or bone disease. Plan Summary: -Would recommend initiation of daratumumab-RVD for newly diagnosed transplant, multiple myeloma in the context of this constellation of findings; however, based on the patient's preferences, we will begin the program of monthly surveillance to assess symptoms and tumor burden. -Along with this treatment regimen, would initiate the usual supportive care including bone stabilizing therapy, prognosis prophylaxis, VZV prophylaxis if we decide to initiate therapy -Fat pad biopsy negative; EMG and liver biopsy to be deferred at the moment -Continue furosemide, vitamin D supplementation, calcium supplementation -RTC virtually in 3 months; paraprotein labs to be repeated at an outside [facility] facility Johanna Mandel MD, [facility] Hematology and Medical Oncology [facility] [address] [id number] CC: Dr. Mike Aguilar, Dr. Jenna Trevino documented in this encounterHolmes [facility] Nurse Note* Richa Blakely LPN - 11/24/2022 1:30 PM EDT Additional intake questions: Has the patient had fever, nausea, vomiting, diarrhea, constipation, fatigue for > 1 week? Yes, fatigue Does the patient have a decreased appetite? No Does patient want to see a Technical Support Specialist? No (yes to any of above refer patient to schedulers for dietitian appointment) ) Does patient have any new or increased numbness or tingling of extremities? No Is patient interested in fertility information? NA Does patient need any prescription refills? No Does patient have an advanced directive in place? Yes, no copy found in [facility] Patient referred to Social Work and Patient referred to Resource Center documented in this encounterHolmes [facility] History of Present illness Narrative* Shauna White APRN.[employer]OCIATE - 10/25/2022 2:00 PM EDT Images from the original note were not included. [facility] Plasma Cell Disorder [facility] (Elements copied from Dr Mandel's note dated September 24, 2022 have been reviewed and updated where appropriate, and all reflect current assessment and medical decision making during today's encounter,October 25, 2022) Reason for visit: Consult, referred by Shauna White for possible monoclonal gammopathy of renal signifiance. My recommendations to the consult requesting physician are communicated via the shared electronic medical record or US mail. Baseline assessment on initial diagnosis date 2022 Cancer Staging No matching staging information was found for the patient. No matching staging information was found for the patient. 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 and may represent an unusual presentation of polyclonal immunoglobulins, but cannot ruleout the presence of a low level M protein 06/03/2022 Related Organ or Tissue Involvement (CRAB) or other Myeloma Defining Event (MDE): Anemia (HgB < 10g/dL or 2g/dL below LLN), actual value: 9.1 g/dL Antecedent plasma cell dyscrasia: No Myeloma FISH panel: Cytogenetics: LDH: 156 U/L (100 - 220) ISS stage: Albumin: 2.9 g/dL, B2M: 2.7 mg/L [place] Stage: Monoclonal proteins at diagnosis: Serum M-spike: 0.00 gm/dL, kappa serum free light chains: 35.6 mg/L, lambda serum free light chains: 397.8 mg/L, Urinary m- protein: an atypical restricted band is present in the lambda region. The presence of free lambda light chains in the urine is consistent witha lambda- containing monoclonal gammopathy, Urinary protein excretion: 0.07 g/24hrs, Urinary albumin: 31.43 %, and Urinary m-protein present Not measurable Total immunoglobulins at diagnosis: IgG 244 mg/dL, IgA 31 mg/dL, IgM 16 mg/dL Bone marrow plasma cell infiltration: % Systemic treatment and disease course -No prior systemic therapy Local treatments (radiation, surgery, kyphoplasty) -No prior local therapy History of prior work up illness (Dr. 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 Patient apparently had been referred to nephrology for anasarca and to evaluate for nephrotic syndrome. She had been hospitalized in February 2022 and seen by hematology for anemia andnephrology for hypoalbuminemia and anasarca. Her albumin was low at 2.5 and Hgb 8.8 in February 2022. A 24 hour urine protein showed just 55 mg of protein and no M spike on UIFE. Patient had been trying to increase her protein intake and was on a fluid restricted diet. She continued to have significant edema. She was intolerant to Bumex as it caused dizziness and slurred speech. She was discharged on Lasix 20 mg daily. She saw GI for elevated liver function tests -- viral hepatitis studies wereunremarkable. Apparently a colonoscopy had been attempted (patient says on three occasions), with poor prep. She was told she had problems with malabsorption. An abdominal ultrasound on 12/29/2021 showed normal liver and no ascites. CT of the abdomen from 03/18/2022 was unremarkable. CK was elevatedat 700 but with elevated myoglobin at 86 (normal 25-58). Urine free light chains apparently showed a Bence Gallegos protein, but on repeat was negative when evaluated by hematology. On 05/10/2022, Hgb 9.8 with creatinine 0.96 (up from baseline a few months prior ~0.5), BUN 44, potassium 4.7 while on Lasix 20 mg daily. CRP and ESR may have been mildly elevated in the past. Patient complained of generalized weakness, fatigue, not being able to do her daily chores at home. Exam was notable for 4+ pitting edema in the legs, a resting tremor. Patient's elevated creatinine and BUN were explained by diuretic therapy. Some immunologic serologies were ordered given concern for myositis with elevated CK.Patient was encouraged to continue Lasix. She was also encouraged to follow-up with hematology regarding anemia. This visit, patient confirms the above history. She elaborates that her symptoms began about a yearago, when she went to the ED and was told her serum protein was low. She says the swelling is mostly in her legs, but she also has noticed some swelling along the left breast and left upper extremity. She has been increasing her protein intake - consuming 90 mg protein through her diet and an additional 45 g through supplemental protein shakes. She tells me no significant proteinuria has been identified in her urine. Regarding a possible protein losing enteropathy, she endorses a history of small intestinal bacterial overgrowth (SIBO) characterized by bloating and constipation; she denies diar emory or loose stools. She reports having tried rifaxamin without improvement. She denies a history of congestive heart failure and reports having had a normal echocardiogram. A BNP was checked on 03/15/2022 and was minimally elevated at 117.2 pg/mL (ref range 0-100). She has gained a lot of weight,due to fluid retention with third spacing, as she is severely hypoalbuminemic. She has also had negative testing for SAYRA by [facility] (05/18/2022), ANCA (05/12/2022), normal serum complements (C3 & C4), normal CRP (<2.90) and slightly elevated ESR (33) on 05/12/22. CK was elevated at 283 (05/12/22). Iron studies have been consistent with iron deficiency, for which patient reports having had iron infusions. Ferritin 14 L, iron 34 L, iron saturation 8.1% L, TIBC 419 (05/20/22). Regarding her iron deficiency, she denies hematochezia, melena, gross hematuria, hemoptysis, or a family history of cancer. As mentioned above, she had a CT chest, abdomen, and pelvis on 03/18/2022 which was apparently negative. Regarding her elevated CK level, she relates generalized muscle weakness, which is most pronounced in the legs as opposed to the upper extremities. She is essentially bed-bound at this time. She is unable to perform activities of daily living without assistance. Her vitamin B12 has actually been very high, but she attributes this to having previously been taking a B complex vitamin. She has had an abnormally low serum kappa/lambda ratio of 0.13 (normal 0.26 - 1.65) on 05/20/2022. All of her serum immunoglobulins have been low (IgA 40, IgG 251, IgM 18) on 05/20/2022. Her TSH was elevated to 11.40 but with normal free T4 of 1.10 on 05/20/2022. She has a history of hypothyroidism and takes levothyroxine. She reports a past history of having taken [place] thyroid. Ljusa-2-[id number] serum was normal at 212 mg/dL on 05/19/2022. Other labs from 05/20/2022 reveal CHANO with negative M spike. Low total protein at 4.9, and an abnormal kappa/lambda ratio of 0.13. Patient's sister is concerned that she might have an unusual form of multiple myeloma, presenting as lymphedema (she brought a copy of the paper to the visit today). Patient and her family want to see hematology for additional work-up, including bone marrow biopsy. Other labs, from 06/01/22 show CBC with WBC 6.4, Hgb 9.0 (MCV 94.2), Plt 170. CBC diff with anisocytosis, target cells. Cr 0.73, BUN 36, CO2, Na 142, K 4.0, CO2 31. AST 84, ALT 85, albumin 2.0. Normal FT4 and low FT3. Haley says she is a 'very sensitive person.' She used to take '22 supplements,' but is taking a lotless now. She denies history of vegan diet; she has a good appetite and reports a robust balanced diet. She endorses a strong family history of Margot's thyroiditis, but denies other autoimmune disease. 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 She reports being up-to-date with age-appropriate cancer screening and had a mammogram within the past few years, PAP one year ago. She says her grandmother from colon cancer. Haley denies fevers or chills. She does have some cold sweats at night. She is gaining 1 lb per day. She denies photosensitivity. She denies dry eye. She has dry mouth which she attributes to fluidrestriction. She denies oral or nasal ulcers. She denies malar rash. She does endorse a rash on herabdomen. She denies gross hematuria or frothy urine. She endorses a history of SIBO and bloating with constipation, as discussed above. She denies joint pain. She relates some chronic sinus issues. She endorses a dry cough, but denies hemoptysis. She denies raynaud's phenomenon, digital ulcerations. She does have some shortness of breath. She has some mild heartburn. Denies hematochezia or melena. She endorses imbalance and tremor. Interim updates: 07/08/2022: The patient presents for further evaluation and management of what he is principally anasarca related to hypoalbuminemia of unclear etiology. Similar to the initial history noted above, the patient at today's visit denies a history of significant diarrhea that 1 would expect in a malabsorptive syndrome or protein-losing enteropathy. As noted above, there is no evidence of heavy proteinuria that would be suggestive of amyloid renal involvement or another glomerular disorder leading tonephrotic syndrome. 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 No formal testing of the adrenal axis is evidence to me on my chart review. Patient notes that she is planned for repeat colonoscopy and her sister, who accompanies her during the visit, strongly convinced that this will disclose evidence ofamyloidosis. In terms of amyloid agenic symptoms, the patient denies any tongue swelling, new rash, dizziness, lightheadedness, palpitations, dyspnea, orthopnea, or PND. Her NT pro BNP was within the reference range as of 06/03/2022. There is no echocardiogram for me to review at present. Her most recent paraprotein work-up reveals an unremarkable immunofixation, a significantly elevated lambda serum free lightchain to 397 mg/L with a KL ratio of 0.09, benito hypogammaglobulinemia, and a 24-hour urine protein that is within the reference range. I do not see a completed urine protein electrophoresis to assess for Bence-Gallegos proteinuria. There is evidence of anemia, with a hemoglobin of 9.2 g/dl that is normocytic. There is no evidence of leukopenia or thrombocytopenia. Serum calcium and serum creatinine are within the reference ranges. The patient underwent a bone survey on 06/21/2022 that did not disclose evidence of lytic lesions. She has not had cross-sectional imaging to assess for osseous or extraosseous disease. Veg F levels have not been assessed and no fat pad biopsy has been completed. Iron studies as of 3 weeks ago showing normal TIBC and transferrin saturation. Ferritin levels wereelevated to 1183 ng/mL. A broad micronutrient panel including vitamin B12, vitamin D, and copper isunremarkable. One symptoms of note that she does complain of is bilateral lower extremity neuropathy. She acknowledges bilateral lower extremity paresthesias to the level of the mid ankle with onset around the time of anasarca. These do not follow any particular dermatomal distribution. She denies significant pain or lower extremity weakness. 08/12/22: In the interim since our last visit, the patient underwent a fat pad biopsy that was unremarkable for evidence of amyloidosis. She also underwent an EGD and colonoscopy that disclosed mild gastritis. Biopsies from her endoscopies are pending. She notes that her fatigue and anasarca continue to worsen. She is tired enough on some days that she cannot walk to her car. She denies guy dyspnea, orthopnea, PND or palpitations. Her albumin remains low without evidence of diarrhea or proteinuria. Of note, her VEGF level was within the reference range. PET/CT scan revealed no evidence of osseous lytic disease. 09/10/2022: I discussed the results of the patient's MRI, which demonstrated approximately 2.0 cm marrow base lesions in the left and right ilium that are likely myelomatous. Patient itself is actually feeling better with reduced edema and anasarca. She denies fevers, chills, night sweats, nausea, vomiting, diarrhea, mucosal bleeding, or significant weight changes. Her coagulation parameters do not demonstrate evidence of synthetic liver dysfunction. Her hemoglobin remained stable and I do not have another ready explanation for her anemia. Unfortunately, her repeat bone marrow biopsy demonstrated inadequate cellularity. 09/23/2022: Patient presents to discuss initiation of therapy. Over the past 2 weeks, she has noted an improvement in her bilateral lower extremity edema to the extent that she has reduced her dose offurosemide at home. Her hemoglobin has improved by 1 g/dl, which may reflect hemoconcentration. Herbone marrow biopsy unfortunately yielded low cellularity as noted above. 10/25/2022: Haley presents today for follow up. She is accompanied by her sister, Lizett. States she has overall been feeling well. Endorses some further improvement in her lower leg edema. Hgb stable at 10.2 g/dL. Other available labs reviewed with patient and sister. MM labs in process. Review of systems General: No fever , No chills, and No night sweats HEENT: No lumps, no difficulty chewing or swallowing, no enlarging tongue, no tooth aches. Musculoskeletal: See above Hematological: No bleeding or easy bruising. Lymphatic / Immune system: No lymph node enlargement or infection. Cardiovascular: No orthopnea, no dyspnea, no chest pain, no leg edema, no palpitations. Pulmonary: No dyspnea, no wheezing, no cough. PAST MEDICAL HISTORY Diagnosis Date Anxiety state, unspecified Depressive disorder, not elsewhere classified IBS (irritable bowel syndrome) Multiple chemical sensitivity syndrome Small intestinal bacterial overgrowth (SIBO) PAST SURGICAL HISTORY Procedure Laterality Date TOOTH EXTRACTION Allergies / intolerances ALLERGIES Allergen Reactions Amoxicillin Other: See Comments Codeine Other: See Comments Flavoring Agent (Bu* Other: See Comments Lactose Other: See Comments Peppermint Flavor Other: See Comments Medications lidocaine (LIDODERM) 5 % Apply 1 Patch as directed every 24 hours. (Patient not taking: Reported on09/23/2022) benzonatate (TESSALON PERLE) 100 mg capsule Take 1 capsule by mouth three times daily as needed. furosemide (LASIX) 20 mg tablet Take 20 mg by mouth once daily. TAKING 10MG DAILY. levothyroxine (SYNTHROID) 50 mcg tablet Take 50 mcg by mouth once daily. 100 mcg 5 days a week. Other two days 50mcg. OTC PRODUCT Food enzymes 3x daily acetylcysteine (ACET-CYS) Take 1,000 mg by mouth once daily. (Patient not taking: Reported on 09/23/2022) cholecalciferol, vitamin D3, (D3-2000 ORAL) Take 2,000 mg by mouth once daily. melatonin 5 mg tablet Take 4 mg by mouth daily at bedtime. (Patient not taking: Reported on 09/23/2022) Lactobacillus acidophilus (PROBIOTIC) 10 billion cell cap Take 133 capsules by mouth daily at bedtime. Calcium-Magnesium 300-300 mg tab Take by mouth. Pt unsure of mg. (Patient not taking: Reported on 09/23/2022) OTC PRODUCT Progesterone Cream 20ml 0.3ml once a day, Bi-estrogen (80/20) .625mg 0/2 ml twice a day(Patient taking differently: Progesterone Cream 20ml 0.3ml once a day,) Social History Tobacco Use Smoking status: Never Smokeless tobacco: Never Vaping Use Vaping Use: Never used Substance Use Topics Alcohol use: No Drug use: No FAMILY HISTORY Problem Relation Age of Onset Osteoporosis Mother Heart Mother afib GI Father IBS Margot Disease Sister other (environmental sensitivities [Other]) Sister both sisters Laboratory tests WBC (k/uL) Date Value 10/25/2022 7.83 09/27/2022 8.03 09/23/2022 6.73 08/27/2022 3.75 08/19/2022 5.50 07/08/2022 4.76 06/21/2022 5.03 Abs Neut (k/uL) Date Value 10/25/2022 5.64 09/27/2022 6.12 09/23/2022 4.92 08/27/2022 2.61 08/19/2022 4.38 07/08/2022 3.67 06/21/2022 4.27 Hemoglobin (g/dL) Date Value 10/25/2022 10.2 09/27/2022 10.0 09/23/2022 10.4 08/27/2022 9.4 08/19/2022 9.2 07/08/2022 9.2 06/21/2022 9.1 Platelet Count (k/uL) Date Value 10/25/2022 301 09/27/2022 261 09/23/2022 304 08/27/2022 243 08/19/2022 147 07/08/2022 205 06/21/2022 179 Glucose (mg/dL) Date Value 09/27/2022 76 09/23/2022 107 08/27/2022 115 08/19/2022 85 06/21/2022 99 Creatinine (mg/dL) Date Value 09/27/2022 0.95 09/23/2022 1.30 08/27/2022 0.91 08/19/2022 0.88 06/21/2022 0.92 Calcium, Total (mg/dL) Date Value 09/27/2022 8.8 09/23/2022 9.1 08/27/2022 9.2 08/19/2022 8.9 06/21/2022 8.8 M-Protein Concentration (g/dL) Date Value 09/23/2022 0.00 08/27/2022 0.00 06/21/2022 0.00 06/03/2022 0.00 M Gee Quant, 24 Hr Urine (g/24hr) Date Value 06/26/2022 0.00 [place] Free, Serum (mg/L) Date Value 09/23/2022 29.8 08/27/2022 40.2 06/21/2022 35.6 06/03/2022 34.8 Lambda Free, Serum (mg/L) Date Value 09/23/2022 268.8 08/27/2022 329.7 06/21/2022 397.8 06/03/2022 384.6 Interpretation (MPA) (no units) Date Value 06/03/2022 Poorly defined region of restricted mobility in the lambda fadi. Pattern is less well defined or fainter than typically seen in monoclonal gammopathy. This could represent either an atypical presentation of polyclonal immunoglobulins or the presence of a low level lambda containing monoclonal gammopathy. Imaging MRI CERVICAL SPINE WO/W IVCON 09/02/2022 IMPRESSION: No definite suspicious osseous lesion in the cervical, thoracic or lumbar spine. Chronic compression deformities of T6, T7 and L4. Small endplate lesions at T7 and L4 presumably associated Schmorl's node deformities, although these did not show hypermetabolic activity on prior PET CT attention on follow-up may be of value. Bilateral pleural effusions. Cervical Anatomic Variant: None. Assume 7 cervical vertebrae with counting from the craniocervical junction. Anatomic Thoracic/Lumbar Variant: None. L4-5 is considered the level of the iliac crest and assume there are 5 lumbar-type vertebrae. Pathology: FLOW CYTOMETRY BONE MARROW REFLEX: Interpretation There is no evidence of involvement by a lymphoproliferative disorder, plasma cell neoplasm, or abnormal blast population. Correlation with the clinical laboratory, radiologic, and bone marrow histopathologic findings is suggested. Marker Normal Cell Type Result (Lymphocytes) CD3 T-cells Normal Pattern CD4 T-cell subset Normal Pattern CD5 T-cells Normal Pattern CD7 T/NK-cells Normal Pattern CD8 T-cell subset Normal Pattern CD13 Myeloid Normal Pattern CD16/56 NK cells Normal Pattern CD19 B-cells Normal Pattern CD34 Blasts Normal Pattern CD45 Benito-leukocyte Normal Pattern kappa/lambda B-cells Polytypic Flow Cytometry Bone Marrow Plasma Cell Immunophenotyping Marker Normal Cell Type Result (Plasma Cells) CD19 B-cells Normal Pattern CD38 Activation Normal Pattern CD45 Benito-leukocyte Normal Pattern CD138 Plasma Cells Normal Pattern CD56 T/NK-cells Normal Pattern cKappa/cLambda B-cells Polytypic Flow cytometric analysis of the bone marrow aspirate reveals that 7% of total events have the CD45 and light scatter properties of lymphocytes. The lymphocytes are composed of T-cells (83%, CD4:CD8 ratio = 3.30), NK cells (12%), and polytypic B-cells (3%). Granulocytic elements are 32% of events. Blasts are not increased. Plasma cells are 0.60% of total events according to CD38 and CD45 characteristics. The plasma cellsare polytypic and phenotypically unremarkable. Impression and Plan Cancer Staging No matching staging information was found for the patient. ##Monoclonal gammopathy of undetermined significance, lambda light chain subtype Cytogenetic risk category: Pending Frailty Score: 0 IMWG Response Criteria: Newly diagnosed Renal: Normal creatinine, clinically no evidence for renal dysfunction. Infectious diseases: No current infection, no need for prophylaxis Musculoskeletal: No current pain, no new lesions suspected. Bone modifying therapy: Diagnostic work-up pending Venous thromboembolism risk: Diagnostic work-up pending control counseling: Diagnostic work-up pending Neurology: Bilateral lower extremity sensory neuropathy as described above Health maintenance discussed: Regular exercise and Appropriate diet Side effects from current medications: None This is a 57-year-old female with approximately 2 years onset anasarca and hypoalbuminemia but doesnot adequately explained by either urinary protein losses or protein-losing enteropathy. 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 A paraprotein work-up ordered recently revealed an elevated lambda serum free light chain with a ratio of 0.09 in the context of anemia that has not been fully explained by micronutrient deficiency. Thus far, no hemolytic work-up has been ordered (though LDH is normal), bone marrow biopsy is pending, no fat pad biopsy has been ordered, and no EMG is available. Per Dr Mandel September 24, 2022 progress note: Given her recent MRI, which demonstrates multiple marrow base lesions in the pelvis that are greater than 5 mm, believe that the patient has multiple myeloma and expressed this to her and her sister.We also discussed the definition of multiple myeloma including the IM WG 2014 criteria. Given that her sister symptoms are improving, patient's sister adamantly wanted to defer the initiation of chemotherapy. The patient agreed with this course of action. My recommendation would be to initiate therapy with daratumumab-RVD at the earliest convenience. Instead, we will begin a program of monitoringfor symptomatic progression of her disease or increasing tumor burden on a monthly basis. Plan Summary: -Would recommend initiation of daratumumab-RVD for newly diagnosed transplant, multiple myeloma in the context of this constellation of findings; however, based on the patient's preferences, we will begin the program of monthly surveillance to assess symptoms and tumor burden. -Along with this treatment regimen, would initiate the usual supportive care including bone stabilizing therapy, prognosis prophylaxis, VZV prophylaxis etc. -Fat pad biopsy negative; EMG and liver biopsy to be deferred at the moment -Continue furosemide, vitamin D supplementation, calcium supplementation -RTC in in 1 month for routine paraprotein labs. ASSESSMENT/PLAN: as outlined above 1. Multiple myeloma, remission status unspecified (HCC) - ICD9: 203.00, ICD10: C90.00 - MONOCLONAL PROTEIN, SERUM (BLOOD) - PROTEIN ELECTROPHORESIS SERUM W/INTERP - CBC + DIFF - COMP METABOLIC PANEL Shauna White [email or web address] [place] [address] Email: [email or web address] CC: Dr. Mike Aguilar, Dr. Jenna Trevino documented in this encounterHolmes County [facility] Nurse Note* Jenny Davis LPN - 10/25/2022 1:34 PM EDT Additional intake questions: Has the patient had fever, nausea, vomiting, diarrhea, constipation, fatigue for > 1 week? No Does the patient have a decreased appetite? No Does patient want to see a Technical Support Specialist? No (yes to any of above refer patient to schedulers for dietitian appointment) ) Does patient have any new or increased numbness or tingling of extremities? No Is patient interested in fertility information? No Does patient need any prescription refills? No Does patient have an advanced directive in place yes at home documented in this encounterHolmes [facility]06-[facility]23 Miscellaneous Notes* Telephone Encounter - Johanna Mandel MD - 09/24/2022 4:49 PM EDT I called the patient regarding her elevated serum creatinine. We will recheck next week. documented in this encounterHolmes [facility]06-15-2023 Instructions* Patient Instructions* Bev Quinn RD - 09/09/2022 1:11 PM EDT Decrease the amount of insoluble fiber in your diet. I think that you are getting too much roughage/insoluble fiber and that is contributing to your constipation. >>limit to one meal with raw vegetables per day. For example if you have a salad for lunch, have cooked vegetables for dinner >>limit one snack to raw fruits and vegetables. For example if you have carrots for your first snack, then have a banana or applesauce for the second snack >>add in some of these foods daily to aid in bulking and softening the stools. oats, legumes, ground flax seed, applesauce, canned or very ripe pears, 2 kiwi, banana, citrus fruits, sweet potatoes and white potatoes, beans and lentils, cooked carrots, white long grain rice >>Nature's Laxatives: can add 2 kiwi to aid in bowel movements of 1/3 cup papaya. These fruits are known to third helper in motility Sunfiber supplement: Low FODMAP soluble fiber supplement can help in constipation as well. Here is a link to the website and they offer samples as well. [email or web address] I reached out to our nutrition Oncology Team and they were able to schedule a virtual visit with a dietitian named Juan iGlliland RDN on 09/16 @10am virtually. You will see the information about that appointment in your mychart. If you need to make changes to that appointment please call [phone] If you would like to follow up with GI nutrition services with me, Bev Cortez RDN, Please [phone] to schedule an in-person visit or [phone] option [phone] to schedule a virtual visit. Thank you! Bev Quinn RD documented in this encounterHolmes [facility]06-15-2023 History of Present illness Narrative* Bev Quinn RD - 09/09/2022 12:45 PM EDT GI Nutrition TeleHealth Consult - Initial Assessment I have communicated my name and active licensure. The patient s identity and physical location wereverified at the time of this visit. Either the patient or their legal sales and merchandising representative has been informed of the risks and benefits of -- and alternatives to -- treatment through a remote evaluation andconsents to proceed with the evaluation remotely Nutrition Diagnosis: Altered Gastrointestinal Tract Function, related to, GI dysmotility (gastroparesis, global dysmotility, colonic inertia), as evidenced by persistent constipation . RECOMMENDED MALNUTRITION DIAGNOSIS: UNABLE TO IDENTIFY MALNUTRITION AT THIS TIME NUTRITION CARE PLAN Nutrition Intervention September 09, 2022 : Diet: --decrease in-soluble fiber daily --add foods like kiwi, papaya and soft fruits/cooked vegetables Vitamins/Minerals: --okay to continue Oral supplements: --Sunfiber daily Nutrition Monitoring & Evaluation: improvement in constipation Criteria: per pt report Need for Follow up: as needed This is a 57 year-old female with an underlying diagnosis of Constipation who is followed by Dr. Lea. PMH of CKD-2, nephrotic syndrome, hypothyroidism, SIBO, IBS, CLIFFORD, OCD and depression. She had positive FOBT and elevated FCP which led to colonoscopy which was negative though with poor prep. Shehad EGD done at the same time which revealed some gastritis. Biopsies were negative Has been treate d with xifaxin in past that helped for a little, but then symptoms returned Today, patient reports the following: --seeing Dr. Mandel at the cancer center and had some bone marrow transplant and was thought to found myeloma/found a lesion on her pelvis. Is planning on starting treatment for the myeloma --pt has had low albumin as well (and not been able to explain) --has tried oils in the past that has not worked with constipation --pt is feeling dehydrated (she often reacts to her environment, and gets flushing), has been on a fluid restriction in the past (6 cups of water) Current Clinical Symptoms # of bowel movements daily: 1-2 (feels like she does not completley emptying) # of liquid stools daily: none Consistency: hard, herman Bloody bowel movements: no Urgency: yes, when her SIBO Abdominal pain: yes, with she has active SIBO Abdominal distention: yes, sometimes wakes up bloated, but some days it is worse than others Nausea/vomiting: no Heartburn/reflux: yes, does not take medications for this Intake: Appetite variable, sometimes feels hungry, in the morning is often light headed Diet History: Breakfast - protein shake, carrots and pumpkin seeds, millet/bucket wheat, chicken breast, yams, cut up squash and zucchini, flax seed and leah seeds Snack - carrots and pumpkin seeds, gluten free and grain free biscuits, protein drinks (Garden of life mixed with water, wheat grass powder, flax oil, carrot juice) Lunch - uses dairy free butter (plant based), salad greens with teo, peppers, celery, cucumber,hemo protein powder, stew with root vegetables soba noodles quinoa, beef or turkey, brown rice tortilla with sunflower butter, cooked greens Snack - Rice cakes Dinner - almond butter, sunflower seed butter Snack - stew with turkey and beef, yams and sweet potatoes, [place] and spaghetti squash, soba noodles and rice, similar Beverages - water Vitamins/Supplements - --probiotics --calcium/mag --vitamin D 2000/day --NAC? --melatonin Allergies/Intolerance: --lactose --peppermint --fried foods (does not digest well) --peanut butter (hard to digest) --does not do corn --gluten free --oats (IBS?) --beans (bloating) --tomatoes --vinegar --oranges, pineapple --grapes (to high in sugar) --banana (histamine) --apples Amoxicillin, Codeine, Flavoring Agent (Bulk), Lactose, and Peppermint Flavor Medications: Current Outpatient Medications Medication Sig Dispense Refill lidocaine (LIDODERM) 5 % Apply 1 Patch as directed every 24 hours. 7 Patch 0 benzonatate (TESSALON PERLE) 100 mg capsule Take 1 capsule by mouth three times daily as needed. 21capsule 0 furosemide (LASIX) 20 mg tablet Take 20 mg by mouth once daily. levothyroxine (SYNTHROID) 50 mcg tablet Take 50 mcg by mouth once daily. 100 mcg 5 days a week. Other two days 50mcg. OTC PRODUCT Food enzymes 3x daily acetylcysteine (ACET-CYS) Take 1,000 mg by mouth once daily. cholecalciferol, vitamin D3, (D3-2000 ORAL) Take 2,000 mg by mouth once daily. melatonin 5 mg tablet Take 4 mg by mouth daily at bedtime. Lactobacillus acidophilus (PROBIOTIC) 10 billion cell cap Take 133 capsules by mouth daily at bedtime. Calcium-Magnesium 300-300 mg tab Take by mouth. Pt unsure of mg. OTC PRODUCT Progesterone Cream 20ml 0.3ml once a day, Bi-estrogen (80/20) .625mg 0/2 ml twice a day(Patient taking differently: Progesterone Cream 20ml 0.3ml once a day,) 0 No current facility-administered medications for this visit. Anthropometrics: Height: 5'10 Weight history: 61.2kg (09/09/2022), 67.5 kg (08/19/2022), 63.9kg (06/21/2022) (states that she has edema and is often hard to measure, take UBW: 120# Goal weight: 120# BMI: 21.8--normal Weight has decreased by 2.7kg over 3 months representing a 4% weight change- non significant. Estimated needs: Calories: 1850 - 2100 kcals/day determined by 30- 35 kcal/kg Protein: 75 - 90 g/day determined by 1.2-1.5 g/kg Malnutrition Screening Significant unintentional weight loss? No Eating less than 75% of usual intake for more than 2 weeks? No Potential Signs of Inflammation: imaging studies and microbiologic cultures Education Materials Provided: None this visit Referred/Supervised by: Dr. Lea/Dr. Woo MNT Billing Type: Initial Assess/15 min [address] documented in this encounterHolmes County [facility] NoteHNO ID: [id number] Author: RT Per(R) Service: ? Author Type: Technologist Type: Progress Notes Filed: 09/02/2022 3:10 PM Note Text: Radiology Service Progress Note DATE OF SERVICE: September 02, 2022 TIME: 3:07 PM PATIENT IDENTITY VERIFICATION COMPLETED USING TWO (2) STANDARD IDENTIFIERS: Name and Date of confirmed by patient verbally. FALL SCREENING: Has the patient had 2 falls in the last year or 1 fall with injury or currently using an Ambulatory Assistive Device (Walker, Cane, Wheelchair, Crutches, etc.)? Yes, Patient High Risk for Falls What interventions were put in place to prevent falls during this visit? Offered Assistance with Transfers/Clothing PATIENT GENDER DATA: Female. status: : No status: NO. PATIENT RELEVANT IMPLANT DATA REVIEWED: Yes ALLERGIES: Reviewed and unchanged CONTRAST ALLERGY: NO. EXAM: MRI - CONTRAST TYPE: GROUP II PERIPHERAL IV DATA: Ambulatory: A peripheral IV was started in the Right antecubital site with a Angio cath: 22 gauge. RADIOLOGY DEPARTMENT: MR; Exam(s) Completed: Lower MSK: Pelvis, bilateral SIGNATURE: RT Per(R) PATIENT NAME: Haley Glez DATE: September 02, 2022 TIME: 3:07 [facility] NoteHNO ID: [id number] Author: RT Per(R) Service: ? Author Type: Technologist Type: Progress Notes Filed: 09/02/2022 3:34 PM Note Text: Radiology Service Progress Note DATE OF SERVICE: September 02, 2022 TIME: 3:33 PM PATIENT IDENTITY VERIFICATION COMPLETED USING TWO (2) STANDARD IDENTIFIERS: Name and Date of confirmed by patient verbally. FALL SCREENING: Has the patient had 2 falls in the last year or 1 fall with injury or currently using an Ambulatory Assistive Device (Walker, Cane, Wheelchair, Crutches, etc.)? Yes, Patient High Risk for Falls What interventions were put in place to prevent falls during this visit? Offered Assistance with Transfers/Clothing PATIENT GENDER DATA: Female. status: : No status: NO. PATIENT RELEVANT IMPLANT DATA REVIEWED: Yes ALLERGIES: Reviewed and unchanged CONTRAST ALLERGY: NO. EXAM: MRI - CONTRAST TYPE: GROUP II PERIPHERAL IV DATA: Ambulatory: A peripheral IV was started in the Right antecubital site with a Angio cath: 22 gauge. RADIOLOGY DEPARTMENT: MR; Exam(s) Completed: Spine: Lumbar spine SIGNATURE: RT Per(Jessy) PATIENT NAME: Haley Glez DATE: September 02, 2022 TIME: 3:33 [facility] NoteHNO ID: [id number] Author: RT Per(Jessy) Service: ? Author Type: Technologist Type: Progress Notes Filed: 09/02/2022 3:52 PM Note Text: Radiology Service Progress Note DATE OF SERVICE: September 02, 2022 TIME: 3:50 PM PATIENT IDENTITY VERIFICATION COMPLETED USING TWO (2) STANDARD IDENTIFIERS: Name and Date of confirmed by patient verbally. FALL SCREENING: Has the patient had 2 falls in the last year or 1 fall with injury or currently using an Ambulatory Assistive Device (Walker, Cane, Wheelchair, Crutches, etc.)? Yes, Patient High Risk for Falls What interventions were put in place to prevent falls during this visit? Offered Assistance with Transfers/Clothing PATIENT GENDER DATA: Female. status: : No status: NO. PATIENT RELEVANT IMPLANT DATA REVIEWED: Yes ALLERGIES: Reviewed and unchanged CONTRAST ALLERGY: NO. EXAM: MRI - CONTRAST TYPE: GROUP II PERIPHERAL IV DATA: Ambulatory: A peripheral IV was started in the Right antecubital site with a Angio cath: 22 gauge. RADIOLOGY DEPARTMENT: MR; Exam(s) Completed: Spine: Thoracic spine SIGNATURE: RT Per(Jessy) PATIENT NAME: Haley Glez DATE: September 02, 2022 TIME: 3:50 [facility] NoteHNO ID: [id number] Author: RT Per(Jessy) Service: ? Author Type: Technologist Type: Progress Notes Filed: 09/02/2022 4:05 PM Note Text: Radiology Service Progress Note DATE OF SERVICE: September 02, 2022 TIME: 4:04 PM PATIENT IDENTITY VERIFICATION COMPLETED USING TWO (2) STANDARD IDENTIFIERS: Name and Date of confirmed by patient verbally. FALL SCREENING: Has the patient had 2 falls in the last year or 1 fall with injury or currently using an Ambulatory Assistive Device (Walker, Cane, Wheelchair, Crutches, etc.)? Yes, Patient High Risk for Falls What interventions were put in place to prevent falls during this visit? Offered Assistance with Transfers/Clothing PATIENT GENDER DATA: Female. status: : No status: NO. PATIENT RELEVANT IMPLANT DATA REVIEWED: Yes ALLERGIES: Reviewed and unchanged CONTRAST ALLERGY: NO. EXAM: MRI - CONTRAST TYPE: GROUP II PERIPHERAL IV DATA: Ambulatory: A peripheral IV was started in the Right antecubital site with a Angio cath: 22 gauge. RADIOLOGY DEPARTMENT: MR; Exam(s) Completed: Spine: Cervical spine SIGNATURE: RT Per(Jessy) PATIENT NAME: Haley Glez DATE: September 02, 2022 TIME: 4:04 [facility] History of Present illness Narrative * Yfn Weiss RT(R) - 09/02/2022 12:45 PM EDT Radiology Service Progress Note DATE OF SERVICE: September 02, 2022 TIME: 3:07 PM PATIENT IDENTITY VERIFICATION COMPLETED USING TWO (2) STANDARD IDENTIFIERS: Name and Date of confirmed by patient verbally. FALL SCREENING: Has the patient had 2 falls in the last year or 1 fall with injury or currently using an Ambulatory Assistive Device (Walker, Cane, Wheelchair, Crutches, etc.)? Yes, Patient High Riskfor Falls What interventions were put in place to prevent falls during this visit? Offered Assistance with Transfers/Clothing PATIENT GENDER DATA: Female. status: : No status: NO. PATIENT RELEVANT IMPLANT DATA REVIEWED: Yes ALLERGIES: Reviewed and unchanged CONTRAST ALLERGY: NO. EXAM: MRI - CONTRAST TYPE: GROUP II PERIPHERAL IV DATA: Ambulatory: A peripheral IV was started in the Right antecubital site with a Angio cath: 22 gauge. RADIOLOGY DEPARTMENT: MR; Exam(s) Completed: Lower MSK: Pelvis, bilateral SIGNATURE: RT Per(R) PATIENT NAME: Haley Glez DATE: September 02, 2022 TIME: 3:07 PM * Yfn Weiss RT(R) - 09/02/2022 12:45 PM EDT Radiology Service Progress Note DATE OF SERVICE: September 02, 2022 TIME: 3:33 PM PATIENT IDENTITY VERIFICATION COMPLETED USING TWO (2) STANDARD IDENTIFIERS: Name and Date of confirmed by patient verbally. FALL SCREENING: Has the patient had 2 falls in the last year or 1 fall with injury or currently using an Ambulatory Assistive Device (Walker, Cane, Wheelchair, Crutches, etc.)? Yes, Patient High Riskfor Falls What interventions were put in place to prevent falls during this visit? Offered Assistance with Transfers/Clothing PATIENT GENDER DATA: Female. status: : No status: NO. PATIENT RELEVANT IMPLANT DATA REVIEWED: Yes ALLERGIES: Reviewed and unchanged CONTRAST ALLERGY: NO. EXAM: MRI - CONTRAST TYPE: GROUP II PERIPHERAL IV DATA: Ambulatory: A peripheral IV was started in the Right antecubital site with a Angio cath: 22 gauge. RADIOLOGY DEPARTMENT: MR; Exam(s) Completed: Spine: Lumbar spine SIGNATURE: RT Per(R) PATIENT NAME: Haley Glez DATE: September 02, 2022 TIME: 3:33 PM * Yfn Weiss RT(R) - 09/02/2022 12:45 PM EDT Radiology Service Progress Note DATE OF SERVICE: September 02, 2022 TIME: 3:50 PM PATIENT IDENTITY VERIFICATION COMPLETED USING TWO (2) STANDARD IDENTIFIERS: Name and Date of confirmed by patient verbally. FALL SCREENING: Has the patient had 2 falls in the last year or 1 fall with injury or currently using an Ambulatory Assistive Device (Walker, Cane, Wheelchair, Crutches, etc.)? Yes, Patient High Riskfor Falls What interventions were put in place to prevent falls during this visit? Offered Assistance with Transfers/Clothing PATIENT GENDER DATA: Female. status: : No status: NO. PATIENT RELEVANT IMPLANT DATA REVIEWED: Yes ALLERGIES: Reviewed and unchanged CONTRAST ALLERGY: NO. EXAM: MRI - CONTRAST TYPE: GROUP II PERIPHERAL IV DATA: Ambulatory: A peripheral IV was started in the Right antecubital site with a Angio cath: 22 gauge. RADIOLOGY DEPARTMENT: MR; Exam(s) Completed: Spine: Thoracic spine SIGNATURE: RT Per(R) PATIENT NAME: Haley Glez DATE: September 02, 2022 TIME: 3:50 PM * Yfn Weiss RT(R) - 09/02/2022 12:45 PM EDT Radiology Service Progress Note DATE OF SERVICE: September 02, 2022 TIME: 4:04 PM PATIENT IDENTITY VERIFICATION COMPLETED USING TWO (2) STANDARD IDENTIFIERS: Name and Date of confirmed by patient verbally. FALL SCREENING: Has the patient had 2 falls in the last year or 1 fall with injury or currently using an Ambulatory Assistive Device (Walker, Cane, Wheelchair, Crutches, etc.)? Yes, Patient High Riskfor Falls What interventions were put in place to prevent falls during this visit? Offered Assistance with Transfers/Clothing PATIENT GENDER DATA: Female. status: : No status: NO. PATIENT RELEVANT IMPLANT DATA REVIEWED: Yes ALLERGIES: Reviewed and unchanged CONTRAST ALLERGY: NO. EXAM: MRI - CONTRAST TYPE: GROUP II PERIPHERAL IV DATA: Ambulatory: A peripheral IV was started in the Right antecubital site with a Angio cath: 22 gauge. RADIOLOGY DEPARTMENT: MR; Exam(s) Completed: Spine: Cervical spine SIGNATURE: RT Per(R) PATIENT NAME: Haley Glez DATE: September 02, 2022 TIME: 4:04 PM documented in this encounterHolmes County [facility]06-[facility] Nurse Note* Richa Blakely LPN - 08/27/2022 1:25 PM EDT [id number] BP 120/78 P50 Safety Maintained. Call light within reach. Will continue to monitor patient. Family present yesBONE MARROW Aspirate & Biopsy Recovery Nursing Assessment/Intervention Post-procedure: Discharge: Time: 1040 BP: 122/81 P: 53 Dressing: dry and intact Signs & Symptoms\ pt denies: abd/groin pain, chest pain, short of breath, faintness, and dizziness Mental status: WNL skin color/quality: WNL Pt was discharged in apparent satisfactory condition. Comments: None, patient tolerated procedure well. electronically signed: Richa Blakely LPN * Richa Blakely LPN - 08/27/2022 9:27 AM EDT Additional intake questions: Has the patient had fever, nausea, vomiting, diarrhea, constipation, fatigue for > 1 week? Yes, fatigue Does the patient have a decreased appetite? No Does patient want to see a Technical Support Specialist? No (yes to any of above refer patient to schedulers for dietitian appointment) ) Does patient have any new or increased numbness or tingling of extremities? No Is patient interested in fertility information? NA Does patient need any prescription refills? No Does patient have an advanced directive in place? Yes, no copy found in sCoolTV Patient referred to Social Work and Patient referred to Resource Center Electronically Signed By: Richa Blakely LPN AMBULATORY PATIENT EDUCATION NOTE TOPIC: bone marrow biopsy READINESS TO LEARN COGNITIVE ABILITY: Alert and oriented MOTIVATION TO LEARN: Eager FAMILY SUPPORT: High - Very involved in pt care INSTRUCTION PROVIDED TO: Patient and family member PATIENT LEARNS BEST BY: Individual Instruction Written Instruction - Hand-outs Verbal Instruction FACTORS AFFECTING LEARNING: None PHYSICAL LIMITATIONS AFFECTING LEARNING: None LEARNING RESPONSE DIAGNOSIS: disease assessment METHOD OF INSTRUCTION: Individual instruction Written instruction - handouts Verbal instruction PATIENT / FAMILY RESPONSE: Verbalizes understanding of: PRE PROCEDURE MEDICATON- Use of designated auto carrier driver. INFECTION MANAGEMENT-The signs and symptoms of an infection (chills and fever) and the importance of contacting the physician. PAIN MANAGEMENT-The effective strategies to manage pain, use of Tylenol instead of ASA or Ibuprofen. BIOPSEY SITE-Care of biopsy site, bleeding control and instruction for contacting physician in caseof excessive bleeding. FOLLOW-UP PLAN: Patient instructed to call with any further issues SUPPLEMENTAL MATERIAL: Patient Instruction for Home-Care Following a Bone Marrow Biopsy REFERRAL (RECOMMENDATION): None Electronically Signed By Richa Blakely LPN In Department: HEMATOLOGY/ONCOLOGY documented in this encounterHolmes County [facility]06-02-[facility]23 Procedure note* Fletcher Wilkerson PA-C - 08/27/2022 10:29 AM EDTAssociated Order(s): BONE MARROW BIOPSY Post-Procedure Diagnose(s): Neoplasm of unspecified behavior of bone, soft tissue, and skin BEDSIDE PROCEDURE NOTE Performed by: Fletcher Wilkerson PA-C Authorized by: Fletcher Wilkerson PA-C Where was Patient When this Procedure was Performed [facility] Informed Consent Consent Obtained: Yes [place] Protocol SIGN IN Personnel directly involved with the procedure wore the appropriate PPE. Patient/Surrogate Stated/Verified: Patient name, Date of , Relevant allergies and Intended procedure TIME OUT Intended patient and procedure match the source document(s). Consent documented and matches the intended procedure. Relevant labs, photos, and/or imaging studies have been reviewed. Correct side/site marked and visible. Medications required for procedure verified. Pre-procedure Details: The area was prepped with povidone Iodine (Betadine) and allowed to dry. A sterile partial body drape was applied following the usual aseptic technique. Medications: Local Anesthesia (see MAR): Lidocaine 2% (10mL) Procedure Details: Patient Position: Left lateral decubitus Aspiration Laterality: Unilateral Aspiration Site: Right posterior superior iliac crest Biopsy Laterality: Unilateral Biopsy Site: Right posterior sperior iliac crest . Workana biopsy system was used. Using aseptic technique, bone marrow aspiration was performed. A touch prep was taken. Core biopsy was obtained 1.3 cm. The core biopsy was confirmed. Post-procedure Details: Patient tolerated the procedure well with no immediate complications Estimated Blood Loss: None Specimens Sent: bone marrow analysis, flow cytometry, bone marrow chromosome analysis and DNA extraction (FISH for plasma cell) Teaching Complete: Bone Marrow Biopsy Post-procedure teaching complete Post-procedure care was reviewed and explained. Patient instructed to communicate complaints of redness, swelling, increased or unresolved pain, bleeding chills, bruising, and/or fever. Patient verbalized understanding. SIGN OUT All instruments, equipment, possible retained foreign bodies accounted for. SIGNATURE: Fletcher Wilkerson PA-C PATIENT NAME: Haley Glez DATE: August 27, 2022 TIME: 10:29 AM documented in this encounterHolmes County [facility]05-12-2023 Miscellaneous Notes* Telephone Encounter - Saminajose Markell - 08/06/2022 1:55 PM EDT Haley Glez's sister Lizett is calling Johanna Mandel MD today regarding (PET scan results) Lizett called to review imaging results and to discuss the next steps. Patient has been identified by name and birthdate. Duration of symptoms: N/A Requesting response back: [phone] (cell) Cara Guillaume August 06, 2022 documented in this encounterHolmes County [facility]05-11-2023 History of Present illness Narrative* RT Alvino(R) - 08/05/2022 10:30 AM EDT RADIOLOGY SERVICE PROGRESS NOTE SERVICE DATE: 08/05/2022 SERVICE TIME: 10:40 AM PATIENT IDENTITY VERIFICATION COMPLETED USING TWO (2) STANDARD IDENTIFIERS: Name and Date of confirmed by patient verbally FALL SCREENING: Has the patient had 2 falls in the last year or 1 fall with injury or currently using an Ambulatory Assistive Device (Walker, Cane, Wheelchair, Crutches, etc.)? Yes, Patient High Riskfor Falls What interventions were put in place to prevent falls during this visit? [place] Risk Wristband Applied PATIENT GENDER DATA: .female : No ALLERGIES: Reviewed and unchanged MEDICATIONS REVIEWED: Yes PATIENT RELEVANT IMPLANT DATA REVIEWED: Not Applicable CREATININE: Creatinine Date Value Ref Range Status 06/21/2022 0.92 0.58 - 0.96 mg/dL Final Estimated Glomerular Filtration Rate Date Value Ref Range Status 06/21/2022 73 >=60 mL/min/1.73m Final Comment: Estimated Glomerular Filtration Rate (eGFR) is calculated using the 2020 CKD-EPI creatinine equation. This equation utilizes serum creatinine, sex, and age as parameters. The creatinine assay has traceable calibration to isotope dilution- mass spectrometry. Refer to KDIGO guidelines for clinical interpretation. In patients with unstable renal function, e.g. those with acute kidney injury, the eGFRmay not accurately reflect actual GFR. P.O.C.T. RESULTS: N/A August 05, [address] PERFORMED: No IV SITE: Ambulatory: A peripheral IV was started in the Left antecubital site with a Angio cath: 24gauge. POST EXAM PIV STATUS: Discontinued PROCEDURE TYPE: NM INJECT: PET/CT WHOLE BODY SCAN. 9.7 mCi F18 FDG. No other medications given.. ADMINISTRATION TIME: 1035 PATIENT DISCHARGED TO: Ambulatory patient, left NM department area. A Diagnostic radioactive procedure has taken place, with no further precautions necessary other than routine body substance precautions. More information regarding radiation safety can be found usingCloudCheckrs link: [email or web address] SIGNATURE: SIRI De Oliveira) PATIENT NAME: Haley Glez DATE: August 05, 2022 TIME: 10:40 AM PAGER/CONTACT #: documented in this encounterHolmes County [facility]05-09-2023 Miscellaneous Notes* Telephone Encounter - Johanna Mandel MD - 08/03/2022 9:58 AM EDT I contacted the patient's caregiver regarding the results of the patient's bone marrow biopsy. We agreed that patient should have another bone marrow biopsy to try to obtain a more definitive result.We will work on scheduling this and reach out to the patient when we are able to. documented in this encounterHolmes County [facility]04-17-2023 History of Present illness Narrative* Bere Leonard Edwin Pss - 07/12/2022 11:49 AM EDT POPULATION HEALTH NAVIGATION OUTREACH Action/I Patient Outreach: Spoke with patient's sister to schedule in RST. Pt will CB to schedule RST Consult after Home Health. Patient Identified by Name and : YES, via phone Outreach Outcome/Action Spoke to patient / parent / legal guardian: Patient declined Did you use a PCP flex slot to schedule this appointment? No Reason for Outreach Care Gap or Scheduling/Wellness visits Payer: Payor: [facility] MEDICAID / Plan: [facility] MED[facility] / Product Type: Medicaid / Care Gap Reviewed:: Specialty Scheduling Reminder: Reminder note to check Health Maintenance for items below Health Maintenance items due: HEPATITIS B(1 of 3 - 3-dose series) Never done COVID-19 VACCINE(1) Never done ANNUAL PCP TEAM CHRONIC DISEASE VISIT Never done DTAP,TDAP,TD(1 - Tdap) Never done PAP TESTING Never done HPV TESTING Never done MAMMOGRAM Never done LIPID SCREEN Never done COLORECTAL CANCER SCREENING Never done SHINGRIX VACCINE(1 of 2) Never done Navigation Signature: Bere Vences July 12, 2022 11:53 AM documented in this encounterHolmes County [facility]04-14-2023 Miscellaneous Notes* Telephone Encounter - STARR Francois - 07/09/2022 1:41 PM EDT Patient's advocate is calling to get some information her upcoming procedure. She wanted to know ifthe patient would be getting the biopsy on the same day or is this just a consult. She is also concerned that PT is having a PET scan before this. Will that be ok? Please call them to advise. documented in this encounterHolmes County [facility]04-13-2023 Miscellaneous Notes* Telephone Encounter - Nereyda Benitez RN - 07/08/2022 3:30 PM EDT Duplicate request * Telephone Encounter - Josue Palencia - 07/08/2022 3:20 PM EDT ..This form is used for MAIN CAMPUS APPOINTMENTS ONLY. Is this request for a [facility] [place] PET scan appointment? Yes: Bait Man: Josue Palencia Requesting Person (Last Name, First Name): Josue Palencia Area Code + Phone/Pager: [phone] Who do we call to schedule this appointment? Patient Requesting Staff Johanna Mandel Area Code + Phone/Pager: N/A PET Orders (A delay in scheduling will result if the orders are not present at time of review): Internal ADDITIONAL ACTION MAY BE REQUIRED IF PATIENTS OON INSURANCE OR SELF PAY COVERAGE HAS NOT BEEN CLEARED FOR REQUESTED APPOINTMENT. Scheduling: SHERRIE: As soon as insurance will allow What account will this PET appointment be linked to? P/F Type of PET: Oncology: Are there additional diagnostic CT scans required to be done at time of PET scan? No Is the request for a PET MR ? No What account will diagnostic testing appointment be linked to? P/F Will the patient need anesthesia? NO Send requests to P [facility] documented in this encounterHolmes County [facility]04-13-[facility]23 Miscellaneous Notes* Telephone Encounter - Nereyda Benitez RN - 07/08/2022 3:15 PM EDT Authorization number: ORM / GPS to process Authorization date range: ORM / GPS to process Primary Insurance: [facility] Diagnosis: Multiple myeloma not having achieved remission (HCC) [C90.00] DX Imaging: Other Specified: Bone Survey 06-21-22 Pathology: 07-08-22 Pending Labs: na Clinical Notes Reviewed: 07-08-22 Hem Onc Date of last: na Additional Information: N/A Radiologist Reviewed: N/A Initial/Subsequent: Initial Treatment Strategy: 0061 PET Protocol: Top Of Head To Toes Diagnostic Imaging Requested: No Is this a Pretreatment and/or an initial Pet scan: No - Schedule as requested Comments for Acid Patroller: N/A ROUTE TO SCHEDULERS POOL P PET OUTSIDE CUTTER MC or P NM SPECIAL STUDIES MC * Telephone Encounter - Elisa Webster RN - 07/08/2022 3:06 PM EDT This form is used for MAIN CAMPUS APPOINTMENTS ONLY. Is this request for a [place] PET scan appointment? Yes: Bait Man: Elisa Webster RN Requesting Person (Last Name, First Name): Elisa Webster Area Code + Phone/Pager: [phone] Who do we call to schedule this appointment? Patient Requesting Staff Johanna Mandel Area Code + Phone/Pager: N/A PET Orders (A delay in scheduling will result if the orders are not present at time of review): Internal ADDITIONAL ACTION MAY BE REQUIRED IF PATIENTS OON INSURANCE OR SELF PAY COVERAGE HAS NOT BEEN CLEARED FOR REQUESTED APPOINTMENT. Scheduling: SHERRIE: As soon as insurance will allow What account will this PET appointment be linked to? P/F Type of PET: Oncology: Are there additional diagnostic CT scans required to be done at time of PET scan? No Is the request for a PET MR ? No What account will diagnostic testing appointment be linked to? P/F Will the patient need anesthesia? NO Send requests to P COORD REVIEW MC documented in this encounterHolmes County [facility]04-13-[facility]23 Nurse Note* Marcella Sommers MA - 07/08/2022 2:04 PM EDT Additional intake questions: Has the patient had fever, nausea, vomiting, diarrhea, constipation, fatigue for > 1 week? Yes, constipation (day of last BM 07/08/22) and fatigue Does patient have any new or increased numbness or tingling of extremities? Yes, feet Is patient interested in fertility information? No Does patient need any prescription refills? No Does patient have an advanced directive in place? Yes, no copy found in [facility] will bring to next appointment Electronically Signed By: Marcella Sommers MA documented in this encounterHolmes County [facility]04-13-[facility]23 History of Present illness Narrative* Johanna Mandel MD - 07/08/2022 2:00 PM EDT Images from the original note were not included. 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 My recommendations to the consult requesting physician are communicated via the shared electronic medical record or US mail. Baseline assessment on initial diagnosis date 2022 Cancer Staging No matching staging information was found for the patient. No matching staging information was found for the patient. 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 and may represent an unusual presentation of polyclonal immunoglobulins, but cannot ruleout the presence of a low level M protein 06/03/2022 Related Organ or Tissue Involvement (CRAB) or other Myeloma Defining Event (MDE): Anemia (HgB < 10g/dL or 2g/dL below LLN), actual value: 9.1 g/dL Antecedent plasma cell dyscrasia: No Myeloma FISH panel: Cytogenetics: LDH: 156 U/L (100 - 220) ISS stage: Albumin: 2.9 g/dL, B2M: 2.7 mg/L [place] Stage: Monoclonal proteins at diagnosis: Serum M-spike: 0.00 gm/dL, kappa serum free light chains: 35.6 mg/L, lambda serum free light chains: 397.8 mg/L, Urinary m- protein: an atypical restricted band is present in the lambda region. The presence of free lambda light chains in the urine is consistent witha lambda- containing monoclonal gammopathy, Urinary protein excretion: 0.07 g/24hrs, Urinary albumin: 31.43 %, and Urinary m-protein present Not measurable Total immunoglobulins at diagnosis: IgG 244 mg/dL, IgA 31 mg/dL, IgM 16 mg/dL Bone marrow plasma cell infiltration: % Systemic treatment and disease course -No prior systemic therapy Local treatments (radiation, surgery, kyphoplasty) -No prior local therapy History of prior work up illness (Dr. 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 Patient apparently had been referred to nephrology for anasarca and to evaluate for nephrotic syndrome. She had been hospitalized in February 2022 and seen by hematology for anemia andnephrology for hypoalbuminemia and anasarca. Her albumin was low at 2.5 and Hgb 8.8 in February 2022. A 24 hour urine protein showed just 55 mg of protein and no M spike on UIFE. Patient had been trying to increase her protein intake and was on a fluid restricted diet. She continued to have significant edema. She was intolerant to Bumex as it caused dizziness and slurred speech. She was discharged on Lasix 20 mg daily. She saw GI for elevated liver function tests -- viral hepatitis studies wereunremarkable. Apparently a colonoscopy had been attempted (patient says on three occasions), with poor prep. She was told she had problems with malabsorption. An abdominal ultrasound on 12/29/2021 showed normal liver and no ascites. CT of the abdomen from 03/18/2022 was unremarkable. CK was elevatedat 700 but with elevated myoglobin at 86 (normal 25-58). Urine free light chains apparently showed a Bence Gallegos protein, but on repeat was negative when evaluated by hematology. On 05/10/2022, Hgb 9.8 with creatinine 0.96 (up from baseline a few months prior ~0.5), BUN 44, potassium 4.7 while on Lasix 20 mg daily. CRP and ESR may have been mildly elevated in the past. Patient complained of generalized weakness, fatigue, not being able to do her daily chores at home. Exam was notable for 4+ pitting edema in the legs, a resting tremor. Patient's elevated creatinine and BUN were explained by diuretic therapy. Some immunologic serologies were ordered given concern for myositis with elevated CK.Patient was encouraged to continue Lasix. She was also encouraged to follow-up with hematology regarding anemia. This visit, patient confirms the above history. She elaborates that her symptoms began about a yearago, when she went to the ED and was told her serum protein was low. She says the swelling is mostly in her legs, but she also has noticed some swelling along the left breast and left upper extremity. She has been increasing her protein intake - consuming 90 mg protein through her diet and an additional 45 g through supplemental protein shakes. She tells me no significant proteinuria has been identified in her urine. Regarding a possible protein losing enteropathy, she endorses a history of small intestinal bacterial overgrowth (SIBO) characterized by bloating and constipation; she denies diar emory or loose stools. She reports having tried rifaxamin without improvement. She denies a history of congestive heart failure and reports having had a normal echocardiogram. A BNP was checked on 03/15/2022 and was minimally elevated at 117.2 pg/mL (ref range 0-100). She has gained a lot of weight,due to fluid retention with third spacing, as she is severely hypoalbuminemic. She has also had negative testing for SAYRA by IFA (05/18/2022), ANCA (05/12/2022), normal serum complements (C3 & C4), normal CRP (<2.90) and slightly elevated ESR (33) on 05/12/22. CK was elevated at 283 (05/12/22). Iron studies have been consistent with iron deficiency, for which patient reports having had iron infusions. Ferritin 14 L, iron 34 L, iron saturation 8.1% L, TIBC 419 (05/20/22). Regarding her iron deficiency, she denies hematochezia, melena, gross hematuria, hemoptysis, or a family history of cancer. As mentioned above, she had a CT chest, abdomen, and pelvis on 03/18/2022 which was apparently negative. Regarding her elevated CK level, she relates generalized muscle weakness, which is most pronounced in the legs as opposed to the upper extremities. She is essentially bed-bound at this time. She is unable to perform activities of daily living without assistance. Her vitamin B12 has actually been very high, but she attributes this to having previously been taking a B complex vitamin. She has had an abnormally low serum kappa/lambda ratio of 0.13 (normal 0.26 - 1.65) on 05/20/2022. All of her serum immunoglobulins have been low (IgA 40, IgG 251, IgM 18) on 05/20/2022. Her TSH was elevated to 11.40 but with normal free T4 of 1.10 on 05/20/2022. She has a history of hypothyroidism and takes levothyroxine. She reports a past history of having taken [place] thyroid. Czyxy-3-jyylzdokjfr serum was normal at 212 mg/dL on 05/19/2022. Other labs from 05/20/2022 reveal CHANO with negative M spike. Low total protein at 4.9, and an abnormal kappa/lambda ratio of 0.13. Patient's sister is concerned that she might have an unusual form of multiple myeloma, presenting as lymphedema (she brought a copy of the paper to the visit today). Patient and her family want to see hematology for additional work-up, including bone marrow biopsy. Other labs, from 06/01/22 show CBC with WBC 6.4, Hgb 9.0 (MCV 94.2), Plt 170. CBC diff with anisocytosis, target cells. Cr 0.73, BUN 36, CO2, Na 142, K 4.0, CO2 31. AST 84, ALT 85, albumin 2.0. Normal FT4 and low FT3. Haley says she is a 'very sensitive person.' She used to take '22 supplements,' but is taking a lotless now. She denies history of vegan diet; she has a good appetite and reports a robust balanced diet. She endorses a strong family history of Margot's thyroiditis, but denies other autoimmune disease. 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 She reports being up-to-date with age-appropriate cancer screening and had a mammogram within the past few years, PAP one year ago. She says her grandmother from colon cancer. Haley denies fevers or chills. She does have some cold sweats at night. She is gaining 1 lb per day. She denies photosensitivity. She denies dry eye. She has dry mouth which she attributes to fluidrestriction. She denies oral or nasal ulcers. She denies malar rash. She does endorse a rash on herabdomen. She denies gross hematuria or frothy urine. She endorses a history of SIBO and bloating with constipation, as discussed above. She denies joint pain. She relates some chronic sinus issues. She endorses a dry cough, but denies hemoptysis. She denies raynaud's phenomenon, digital ulcerations. She does have some shortness of breath. She has some mild heartburn. Denies hematochezia or melena. She endorses imbalance and tremor. Today's visit: 07/08/2022: The patient presents for further evaluation and management of what he is principally anasarca related to hypoalbuminemia of unclear etiology. Similar to the initial history noted above, the patient at today's visit denies a history of significant diarrhea that 1 would expect in a malabsorptive syndrome or protein-losing enteropathy. As noted above, there is no evidence of heavy proteinuria that would be suggestive of amyloid renal involvement or another glomerular disorder leading tonephrotic syndrome. 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 No formal testing of the adrenal axis is evidence to me on my chart review. Patient notes that she is planned for repeat colonoscopy and her sister, who accompanies her during the visit, strongly convinced that this will disclose evidence ofamyloidosis. In terms of amyloid agenic symptoms, the patient denies any tongue swelling, new rash, dizziness, lightheadedness, palpitations, dyspnea, orthopnea, or PND. Her NT pro BNP was within the reference range as of 06/03/2022. There is no echocardiogram for me to review at present. Her most recent paraprotein work-up reveals an unremarkable immunofixation, a significantly elevated lambda serum free lightchain to 397 mg/L with a KL ratio of 0.09, benito hypogammaglobulinemia, and a 24-hour urine protein that is within the reference range. I do not see a completed urine protein electrophoresis to assess for Bence-Gallegos proteinuria. There is evidence of anemia, with a hemoglobin of 9.2 g/dl that is normocytic. There is no evidence of leukopenia or thrombocytopenia. Serum calcium and serum creatinine are within the reference ranges. The patient underwent a bone survey on 06/21/2022 that did not disclose evidence of lytic lesions. She has not had cross-sectional imaging to assess for osseous or extraosseous disease. Veg F levels have not been assessed and no fat pad biopsy has been completed. Iron studies as of 3 weeks ago showing normal TIBC and transferrin saturation. Ferritin levels wereelevated to 1183 ng/mL. A broad micronutrient panel including vitamin B12, vitamin D, and copper isunremarkable. One symptoms of note that she does complain of is bilateral lower extremity neuropathy. She acknowledges bilateral lower extremity paresthesias to the level of the mid ankle with onset around the time of anasarca. These do not follow any particular dermatomal distribution. She denies significant pain or lower extremity weakness. Review of systems General: No fever , No chills, and No night sweats HEENT: No lumps, no difficulty chewing or swallowing, no enlarging tongue, no tooth aches. Musculoskeletal: See above Hematological: No bleeding or easy bruising. Lymphatic / Immune system: No lymph node enlargement or infection. Cardiovascular: No orthopnea, no dyspnea, no chest pain, no leg edema, no palpitations. Pulmonary: No dyspnea, no wheezing, no cough. PAST MEDICAL HISTORY Diagnosis Date Anxiety state, unspecified Depressive disorder, not elsewhere classified IBS (irritable bowel syndrome) Multiple chemical sensitivity syndrome Small intestinal bacterial overgrowth (SIBO) PAST SURGICAL HISTORY Procedure Laterality Date TOOTH EXTRACTION Allergies / intolerances ALLERGIES Allergen Reactions Amoxicillin Other: See Comments Codeine Other: See Comments Flavoring Agent (Bu* Other: See Comments Lactose Other: See Comments Peppermint Flavor Other: See Comments Medications furosemide (LASIX) 20 mg tablet Take 20 mg by mouth once daily. levothyroxine (SYNTHROID) 50 mcg tablet Take 50 mcg by mouth once daily. 100 mcg 5 days a week. Other two days 50mcg. OTC PRODUCT Food enzymes 3x daily acetylcysteine (ACET-CYS) Take 1,000 mg by mouth once daily. cholecalciferol, vitamin D3, (D3-2000 ORAL) Take 2,000 mg by mouth once daily. melatonin 5 mg tablet Take 4 mg by mouth daily at bedtime. Lactobacillus acidophilus (PROBIOTIC) 10 billion cell cap Take 133 capsules by mouth daily at bedtime. Calcium-Magnesium 300-300 mg tab Take by mouth. Pt unsure of mg. OTC PRODUCT Progesterone Cream 20ml 0.3ml once a day, Bi-estrogen (80/20) .625mg 0/2 ml twice a day(Patient taking differently: Progesterone Cream 20ml 0.3ml once a day,) Social History Tobacco Use Smoking status: Never Smokeless tobacco: Never Substance Use Topics Alcohol use: No Drug use: No FAMILY HISTORY Problem Relation Age of Onset Osteoporosis Mother Heart Mother afib GI Father IBS Margot Disease Sister other (environmental sensitivities [Other]) Sister both sisters Physical examination There were no vitals taken for this visit. ECOG PS: 2- Ambulatory and capable of all selfcare; unable to carry out work activities. Up and about > 50% of waking hrs. General appearance: Well appearing, alert, in no acute distress, well-hydrated, well nourished. HEENT: No lumps, no macroglossia, no icterus. Mucous membranes pink. Neck: Supple, no adenopathy; thyroid symmetric, normal size, no bruits Back: no pain to palpation Lungs: Lungs clear to auscultation. No wheezing, rhonchi, rales. Heart: RRR without murmur, gallop, or rubs. No ectopy Abdomen: Abdomen soft, non-tender. Bowel sounds normal. No masses, organomegaly Extremities: Bilateral lower extremity edema 1+ pitting to approximately the mid thigh Laboratory tests WBC (k/uL) Date Value 06/21/2022 5.03 Abs Neut (k/uL) Date Value 06/21/2022 4.27 Hemoglobin (g/dL) Date Value 06/21/2022 9.1 Platelet Count (k/uL) Date Value 06/21/2022 179 Glucose (mg/dL) Date Value 06/21/2022 99 Creatinine (mg/dL) Date Value 06/21/2022 0.92 Calcium, Total (mg/dL) Date Value 06/21/2022 8.8 M-Protein Concentration (g/dL) Date Value 06/21/2022 0.00 06/03/2022 0.00 M Gee Quant, 24 Hr Urine (g/24hr) Date Value 06/26/2022 0.00 [place] Free, Serum (mg/L) Date Value 06/21/2022 35.6 06/03/2022 34.8 Lambda Free, Serum (mg/L) Date Value 06/21/2022 397.8 06/03/2022 384.6 Interpretation (MPA) (no units) Date Value 06/03/2022 Poorly defined region of restricted mobility in the lambda fadi. Pattern is less well defined or fainter than typically seen in monoclonal gammopathy. This could represent either an atypical presentation of polyclonal immunoglobulins or the presence of a low level lambda containing monoclonal gammopathy. Imaging To be obtained Pathology: Bone marrow biopsy in progress Impression and Plan Cancer Staging No matching staging information was found for the patient. ##Monoclonal gammopathy of undetermined significance, lambda light chain subtype Cytogenetic risk category: Pending Frailty Score: 0 IMWG Response Criteria: Newly diagnosed Renal: Normal creatinine, clinically no evidence for renal dysfunction. Infectious diseases: No current infection, no need for prophylaxis Musculoskeletal: No current pain, no new lesions suspected. Bone modifying therapy: Diagnostic work-up pending Venous thromboembolism risk: Diagnostic work-up pending control counseling: Diagnostic work-up pending Neurology: Bilateral lower extremity sensory neuropathy as described above Health maintenance discussed: Regular exercise and Appropriate diet Side effects from current medications: None This is a 57-year-old female with approximately 2 years onset anasarca and hypoalbuminemia but doesnot adequately explained by either urinary protein losses or protein-losing enteropathy. 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 A paraprotein work-up ordered recently revealed an elevated lambda serum free light chain with a ratio of 0.09 in the context of anemia that has not been fully explained by micronutrient deficiency. Thus far, no hemolytic work-up has been ordered (though LDH is normal), bone marrow biopsy is pending, no fat pad biopsy has been ordered, and no EMG is available. The range of diagnoses here include multiple myeloma, which she would meet criteria for if we cannot adequately otherwise explain her anemia, which is 2 g below our lower limit for normal for her ageand gender. Amyloidosis is also diagnostic possibility as is POEMS syndrome in the context of her neuropathy. She has not been fully worked up for organomegaly, bone lesions, or other endocrine abnormalities. Accordingly today, we will order a cortisol level, a VEGF level, a fat pad biopsy, and an EMG to better assess her condition underlying lower extremity neuropathy. Further treatment planningwill hinge on the results of the aforementioned studies. Of note, there is no significant family history of multiple myeloma or other hematologic malignancy. Plan Summary: -Follow-up the results of today's bone marrow biopsy -Follow-up hemolysis labs, serum cortisol level, veg F level, PET/CT scan -Fat pad biopsy and EMG to be arranged -Agree with repeat colonoscopy; however, the notion of clinically significant GI amyloidosis driving her pathology in the absence of diarrhea is questionable -RTC in 2 weeks to discuss findings, render a diagnosis, and determine a treatment plan. Johanna Mandel MD, [facility] Hematology and Medical Oncology [facility] [address] [id number] CC: Dr. Mike Aguilar, Dr. Jenna Trevino documented in this encounterHolmes County [facility]04-13-2023 Nurse Note* Robyn Rosas LPN - 07/08/2022 1:59 PM EDT Time 1327 BP 109/69 P 51. Safety Maintained. Call light within reach. Will continue to monitor patient. Family present. BONE MARROW Aspirate & Biopsy Recovery Nursing Assessment/Intervention Post-procedure: Discharge: Time: 1352 BP: 108/67 P: 51 Dressing: Dry and intact Signs & Symptoms\ pt denies: abd/groin pain, chest pain, short of breath, faintness, and dizziness Mental status: WNL skin color/quality: WNL Pt was discharged in a wheelchair with family and in apparent satisfactory condition. Comments: None, patient tolerated procedure well. electronically signed: Robyn Rosas LPN * Robyn Rosas LPN - 07/08/2022 12:32 PM EDT Additional intake questions: Has the patient had fever, nausea, vomiting, diarrhea, constipation, fatigue for > 1 week? Yes, constipation (pt states she goes daily with meds), fatigue, and Provider Notified Does the patient have a decreased appetite? No Does patient want to see a Technical Support Specialist? No (yes to any of above refer patient to schedulers for dietitian appointment) ) Does patient have any new or increased numbness or tingling of extremities? Yes, pt had edema in feet and states it causes tingling. Is patient interested in fertility information? No Does patient need any prescription refills? No Does patient have an advanced directive in place? Yes, no copy found in [facility] Patient referred to [facility] Electronically Signed By: Robyn Rosas LPN AMBULATORY PATIENT EDUCATION NOTE TOPIC: Bone marrow biopsy READINESS TO LEARN COGNITIVE ABILITY: Alert and oriented MOTIVATION TO LEARN: Eager FAMILY SUPPORT: High - Very involved in pt care INSTRUCTION PROVIDED TO: Patient and family member PATIENT LEARNS BEST BY: Individual Instruction Written Instruction - Hand-outs Verbal Instruction FACTORS AFFECTING LEARNING: None PHYSICAL LIMITATIONS AFFECTING LEARNING: None LEARNING RESPONSE DIAGNOSIS: Disease assessment METHOD OF INSTRUCTION: Individual instruction Written instruction - handouts PATIENT / FAMILY RESPONSE: Verbalizes understanding of: PRE PROCEDURE MEDICATON- Use of designated auto carrier driver. INFECTION MANAGEMENT-The signs and symptoms of an infection (chills and fever) and the importance of contacting the physician. PAIN MANAGEMENT-The effective strategies to manage pain, use of Tylenol instead of ASA or Ibuprofen. BIOPSEY SITE-Care of biopsy site, bleeding control and instruction for contacting physician in caseof excessive bleeding. FOLLOW-UP PLAN: Patient instructed to call with any further issues SUPPLEMENTAL MATERIAL: Patient Instruction for Home-Care Following a Bone Marrow Biopsy REFERRAL (RECOMMENDATION): None Electronically Signed By Robyn Rosas LPN In Department: HEMATOLOGY/ONCOLOGY documented in this encounterHolmes County [facility]04-13-2023 Procedure note* Maame Loza APRN.JOSEFINA - 07/08/2022 1:15 PM EDTAssociated Order(s): BONE MARROW BIOPSY Post-Procedure Diagnose(s): Elevated serum immunoglobulin free light chains; Iron deficiency anemia, unspecified iron deficiency anemia type BEDSIDE PROCEDURE NOTE BONE MARROW BIOPSY Performed by: Maame Loza APRN.JOSEFINA Authorized by: Maame Loza APRN.CNP Informed Consent Consent Obtained: Written [place] Protocol A moment to CARE was completed. SIGN IN Personnel directly involved with the procedure wore the appropriate PPE. Special Equipment: Yes Patient/Surrogate Stated/Verified: Patient name, Date of , Relevant allergies and Intended procedure TIME OUT Intended patient and procedure match the source document(s). Consent documented and matches the intended procedure. Relevant labs, photos, and/or imaging studies have been reviewed. Correct side/site marked and visible. Medications required for procedure verified. No fire risk assessment and interventions applicable. No implant(s) inserted. Pre-procedure Details: The area was prepped with chlorhexidine (Chloroprep) and allowed to dry. A sterile partial body drape was applied following the usual aseptic technique. Medications: Analgesia (see MAR): Percocet Local Anesthesia (see MAR): Lidocaine 2% (10ml) Procedure Details: Patient Position: Right lateral decubitus Aspiration Laterality: Unilateral Aspiration Site: Left posterior superior iliac crest Biopsy Laterality: Unilateral Biopsy Site: Left posterior superior iliac crest . Workana biopsy system was used. Using aseptic technique, bone marrow aspiration was performed. A touch prep was taken. Core biopsy was obtained 1 cm. The core biopsy was confirmed. Pressure dressing applied to Bone Marrow site(s). Hemostasis maintained. Assisting Clinician(s): Campbell Muir Tech Post-procedure Details: Patient tolerated the procedure well with no immediate complications Estimated Blood Loss: Scant Specimens Sent: bone marrow analysis, bone marrow chromosome analysis, DNA extraction and flow cytometry (FISH for myeloma) Teaching Complete: Bone Marrow Biopsy Post-procedure teaching complete Post-procedure care was reviewed and explained. Patient instructed to communicate complaints of redness, swelling, increased or unresolved pain, bleeding chills, bruising, and/or fever. Patient verbalized understanding. SIGN OUT All instruments, equipment, possible retained foreign bodies accounted for. SIGNATURE: Maame Loza APRN.JOSEFINA PATIENT NAME: Haley Glez DATE: July 08, 2022 TIME: 1:15 PM documented in this encounterHol[facility] Instructions* Patient Instructions* Jenna Trevino MD - 06/29/2022 2:01 PM EDT 1) NEUROMUSCULAR : Assessment and recommendations as follows: Subjective weakness, with normal manual strength on exam. The two CPK values I can see are in the 200s, and should be normal for a patient of this age and size. Slightly hyporeflexia in legs and mildly reduced vibration sensation in toes with intact pinprick. In the presence of significant leg edema, their significance is unclear. There is no clear evidence of a peripheral neuropathy. Serum glucose, B12, B1, folate and IEP all havebeen checked. No further workup from neuromuscular is needed. Continue physical therapy. 2) VASCULAR MEDICINE : Assessment and recommendations as follows: The patient has most likely lymphedema due to secondary causes of calf muscle dysfunction disuse, low albumin/protein along with hypothyroidism. All these can contribute to developing of lymphedema. The patient has been applying her gym leggings to help compression. The patient does not complain of any pain no ulcer formation. Our recommendation is as follow:-We will apply Tubigrip followed by SurePress wraps.Compression wraps to bilateral LEs daily during the day (can remove for comfort during night) -SurePress wraps should be applied in a spiral fashion from base of toes to just below the knee, with 50% overlay -Wraps should be removed daily, meticulous skin care provided (i.e. soap, water, lotion) and compression wraps reapplied. -LE should be elevated above the level of the heart whenever patient is sitting or lying down in bed-Encourage activity with physical therapy-Refer the patient to lymphedema therapy for manual lymphatic drainage-After the MLD might refer the patient for lymphedema pump and compression garment measurements.-Continue treatment of underlying cause of her immobility with physical therapy, protein loss enteropathy with her upcoming colonoscopy and further treatment with GI and hypothyroidism. 3) HEMATOLOGY: Assessment and recommendations as follows: PLAN: We will obtain: - SPEP, UPEP, MPA, B2M, CBC with differential, Complete chemistry panel, 24hr urine for total protein, serum and urine kappa/lambda light chains, - Skeletal survey to rule out lytic lesions, - Upon review of the available data, is likely that MsSmole will fall into the category of Monoclonal Gammopathy of Undetermined Significance (MGUS). If so, we would plan to monitor Myeloma labs every 3 months initially, then every 6 months. These wouldinclude SPEP and UPEP with immunefixation, CBC with Differential, Beta-2 Microglobulin, 24 hr Urinefor Total protein, Complete chemistry Panel, and [place]/Lambda, free serum and urine evaluation.- The patient was asked to call to report any new symptoms of fatigue, back or bony pain, activity intolerance Next follow-up in 3 months. 4) GASTROENTEROLOGY : Schedule colonoscopy/EGD small bowel biopsy with advaced staining and random colon biopsy including the TI. Colonoscopy instructions as above. F/U with Aruna Del Cid APRN mariaa week after the colonoscopy. F/U with Dr. Lea in 4 weeks 4) INTERNAL MEDICINE: I had my After Visit Summary (AVS) with Haley Glez today. Patient is accompanied by sister Lizett. We started with the review of the initial visit/intake I had and reviewed the assessment and recommendations from our consultants from this NCS visit. She states her home PT or nurse can help with leg wrapping for her lymphedema. They are concern about losing home health aids if she goes to a lymphedema clinic and would no longer be consider home bound. I advised Lizett to reach out to the PCP to see if able to order skilled care for lymphedema wraps at home. They live in [place] so closets [facility] is [facility] for them. They will reach back to Hematology to schedule the bone marrow biopsy. I advised them to let Hematology also discuss their labs and xrays. 5) THE FOLLOWING ARE STILL OUTSTANDING TESTINGS/ISSUES THAT THE PATIENT WILL NEED TO FOLLOW UP AT THE COMPLETION WITH NATIONAL CONSULT VISIT: [facility] and [facility] 08/10/2022. They will coordinated with Hematology on Bone Marrow. They will do PT at home (currently getting twice weekly). At the conclusion of Haley Glez visit to NATIONAL CONSULT SERVICE at this time, the patient is aware that she will need to resume and continue to be managed by their Primary Care Physician (PCP) at home with the recommendations we have proposed at this time. Haley Glez is aware that I cannot continue to be her primary care physician and that further testings, such as laboratory studies,images and referrals must now be done through the PCP. Furthermore, I will share all information obtained during this NCS visit to the PCP or whomever patient has designated in their care via a letter and though this electronic medical record. I informed the patient today that if they would like further evaluation for similar or different issues after this visit, we would ask the patient to schedule a separate NCS visit in the future. Patient voiced understanding of our plan. documented in this encounterHol[facility]04[facility] History of Present illness Narrative* Jenna Trevino MD - 06/29/2022 1:00 PM EDT Images from the original note were not included. [facility] [address] [place] [id number] National Consultation Service 06/28/2022 Report visit after additional tests and consultations. PCP: Patient presented to the National Consult Service with the following top THREE issues that were addressed during this week: Impressions and plan from my INITIAL VISIT with the patient: IMPRESSIONS AND PLANS: Encounter Diagnosis ICD-10-CM 1. Edema, unspecified type R60.9 2. Elevated CK R74.8 3. Muscle weakness of lower extremity M62.81 4. Elevated TSH R79.89 5. Iron deficiency anemia, unspecified iron deficiency anemia type D50.9 6. Constipation, unspecified constipation type K59.00 7. Abdominal bloating R14.0 At the completion of today's visit pending further labs, diagnostic tests and referrals, I have made the following recommendations for this patient today. Patient will have a follow up visit with me at a future date to discuss final recommendations. (1) Haley Glez is here to address the following issues: In regards to the FIRST ISSUE of GASTRO , I will await GASTROENTEROLOGY disposition. She has already been referred through Rheumatology/Dr Aguilar. 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 She was also told she has SIBO (no records). At this point in time, she has symptoms of constipation, no GI bleeding, abdominal bloating with nausea. She was told she had leaky gut syndrome in 2010 from a preventive medicine provider (I do have those records). She told me she had recent abdominal ultrasound in [place] (I do not have records) but she doesnot recall the result. She listed elevated LFT though I do not have any recent CMP for my review.. (2) In regards to the SECOND ISSUE OF ONCOLOGY, I will await HEMATOLOGY disposition. This referral was placed by Rheumatology/Dr Aguilar. She is being sent for evaluation of iron deficiency anemia. So far, she does not have source of blood loss (amenorrhea, no GI bleed). She has had 2 IV iron infusions over the last 1 year; most recent was 06/01/22 so that her most recent iron studies reflect that. (3) In regards to the THIRD ISSUE of INTERNAL MEDICINE, the main issue here is her peripheral edema. So far, this is attributed to protein losing enteropathy but there is lack of medical records to know what is causing it. Will await Gastroenterology assessment. I will ask VASCULAR MEDICINE to evaluation her edema for underlying lymphedema/vascular causes as well. Not clear if her leg edema is causing some compressive physiology that may explain her mildly increased CK since she only has leg heaviness and not generalized weakness. Will refer to NEUROMUSCULAR. Does not appear she has had any cardiopulmonary work up for her edema though her BNP is 118 from 06/03/2022. She does admit to snoring so questionable right side HF/cor pulmonale needs to be considered this current work up inconclusive. Will need to get records on her LFT and abdominal ultrasound she had from [place]. ----- CONSULTANTS DURING THIS NATIONAL CONSULT VISIT: Haley Glez was seen by the following consultants during this NCS visit. Their ASSESSMENT AND PLAN are noted below (CUT and PASTED): (1) NEUROMUSCULAR IMPRESSION/PLAN: Subjective weakness, with normal manual strength on exam. The two CPK values I can see are in the 200s, and should be normal for a patient of this age and size. Slightly hyporeflexia in legs and mildly reduced vibration sensation in toes with intact pinprick. In the presence of significant leg edema, their significance is unclear. There is no clear evidence of a peripheral neuropathy. Serum glucose, B12, B1, folate and IEP all have been checked. No furtherworkup from neuromuscular is needed. Continue physical therapy. I spent a total of 50 minutes on the date of the service which included [id number] patient care, completing clinical documentation, obtaining and/or reviewing separately obtained history, performing a medically appropriate examination, and counseling and educating the patient/family/caregiver . All questions answered. Written instructions provided. Chris Rao M.D., Ph.D. Staff Physician [facility] [address] [place] [address] (2) VASCULAR MEDICINE Orders Placed CONSULT TO LYMPHEDEMA THERAPY IMPRESSION: Patient is a 57 year old female past medical history of SIBO, protein-losing enteropathy, CKD, hypothyroidism, CLIFFORD came in for evaluation of bilateral lower extremity swelling. The patient is wheelchair dependent very limited mobilization has a negative proteinuria with a protein creatinine ratio < 0.08. The patient has low protein and albumin. Patient has positive Stemmer sign, creases at the bases of the toes, full ankles PLAN: Lymphedema Bilateral lower extremity swelling The patient has most likely lymphedema due to secondary causes of calf muscle dysfunction disuse, low albumin/protein along with hypothyroidism. All these can contribute to developing of lymphedema. The patient has been applying her gym leggings to help compression. The patient does not complain ofany pain no ulcer formation. Our recommendation is as follow: -We will apply Tubigrip followed by SurePress wraps.Compression wraps to bilateral LEs daily duringthe day (can remove for comfort during night) -SurePress wraps should be applied in a spiral fashion from base of toes to just below the knee, with 50% overlay -Wraps should be removed daily, meticulous skin care provided (i.e. soap, water, lotion) and compression wraps reapplied. -LE should be elevated above the level of the heart whenever patient is sitting or lying down in bed -Encourage activity with physical therapy -Refer the patient to lymphedema therapy for manual lymphatic drainage -After the MLD might refer the patient for lymphedema pump and compression garment measurements. -Continue treatment of underlying cause of her immobility with physical therapy, protein loss enteropathy with her upcoming colonoscopy and further treatment with GI and hypothyroidism. I have reviewed the documentation obtained and documented by the Resident and I have personally performed a face to face assessment of the patient and have personally participated in the fajardo components of the visit which includes medical decision making.. I have discussed the case and management ofthe patient's care. Yokasta Walker MD RPVI FACP DABVLM (3) HEMATOLOGY Orders Placed Labs B2 MICROGLOBULIN B CBC + DIFF COMP METABOLIC PANEL MONOCLONAL PROTEIN, SERUM (BLOOD) PROTEIN ELECTROPHORESIS SERUM W/INTERP TSH BLD URIC ACID BLOOD CALCIUM IONIZED BLOOD IRON + TIBC LD LACTATE DEHYDRO PHOSPHORUS INORGANIC MONOCLONAL PROT 24 UR W/INTERP PROT ELEC UR 24HR W/M SPIKE AND INTERP Less Imaging XR BONE SURVEY ROUTINE Impression and Plan I discussed with the patient and her sister that a Monoclonal Gammopathy of Undetermined Significance (MGUS) is an asymptomatic condition that is included in a spectrum of monoclonal plasma cell disorders. MGUS is characterized by a monoclonal protein < 3 g/dL (30 g/L) in the serum and < 10% monoclonal plasma cells in the bone marrow and no evidence of end-organ damage ( CRAB ), lymphoma, Waldenstr m macroglobulinemia, or light chain amyloidosis (AL). I discussed that a diagnosis of MGUS is relatively common, affecting 3.2% of the population over the age of 50 years, and approximately 6% of the population. The natural history and pathophysiology of multiple myeloma, amyloidosis and plasma cell dyscrasiaswere explained. Three levels were discussed primarily as relates to IgG [place] monoclonal gammopathywhich includes, but is not limited to, MGUS (low level m protein without evidence of organ damage) smoldering MM (higher m component without organ damage, or multiple myeloma. The current criteria for active MM requiring treatment can be remembered by the mnemonic SLiM CRAB (Kath SV, et al., The Lancet. Oncol. Jan 2014;15(12):q106-h658.) S-Sixty percent or greater clonal plasma cells, Li- An elevated serum free light chains (kappa/lambda ratio >100, M- Magnetic Resonance Imaging (MRI) with greater than 1 focal lesion >5mm, C- Calcium elevation (>11.0g/dL) R- Renal insufficiency or failure (creat >2.0g/dL and related to the paraprotein) A- Anemia (hemoglobin less than 10 or a 2 gram drop from baseline), B- bone disease (osteoporosis or lytic lesions). We reviewed symptoms such as fatigue, easy bruising, or abnormal bleeding that may indicate active multiple myeloma with cytopenias. Also bone pain or fractures may indicate active multiple myeloma. Other conditions such as weight loss, nephrotic syndrome with edema, or unexplained dyspnea , neuropathy or symptoms of hyperviscosity may lead to think about an additional diagnoses. We also discussed about how to monitor this patient's using some predictors of risk of progression including the amount of M protein (more than 1.5 g/dL), non- IgG isotype or free light chain ratio less than 0.26 or more than 1.65. Lastly, we will get repeat immunoglobulin levels and serum free light chains (kappa and lambda) to further investigate his/her paraproteinemia, although it is highly unlikely that this is of clinicalsignificance, since he has no measurable serum M-spike and patient reports no CRAB. PLAN: We will obtain: - SPEP, UPEP, MPA, B2M, CBC with differential, Complete chemistry panel, 24hr urine for total protein, serum and urine kappa/lambda light chains, - Skeletal survey to rule out lytic lesions, - Upon review of the available data, is likely that Ms Glez will fall into the category of Monoclonal Gammopathy of Undetermined Significance (MGUS). If so, we would plan to monitor Myeloma labs every 3 months initially, then every 6 months. These would include SPEP and UPEP with immunefixation, CBC with Differential, Beta-2 Microglobulin, 24 hr Urine for Total protein, Complete chemistry Panel,and [place]/Lambda, free serum and urine evaluation. - The patient was asked to call to report any new symptoms of fatigue, back or bony pain, activity intolerance Next follow-up in 3 months. Shauna White APRN.[employer] CC: Dr. Ignacio Aguilar At the time of the visit, we had only received on outside document, a note from her electric meter inspector, dated 05/12/2022. Patient apparently had been referred to nephrology for anasarca and to evaluate for nephrotic syndrome. She had been hospitalized in February 2022 and seen by hematology for anemia andnephrology for hypoalbuminemia and anasarca. Her albumin was low at 2.5 and Hgb 8.8 in February 2022. A 24 hour urine protein showed just 55 mg of protein and no M spike on UIFE. Patient had been trying to increase her protein intake and was on a fluid restricted diet. She continued to have significant edema. She was intolerant to Bumex as it caused dizziness and slurred speech. She was discharged on Lasix 20 mg daily. She saw GI for elevated liver function tests -- viral hepatitis studies wereunremarkable. Apparently a colonoscopy had been attempted (patient says on three occasions), with poor prep. She was told she had problems with malabsorption. An abdominal ultrasound on 12/29/2021 showed normal liver and no ascites. CT of the abdomen from 03/18/2022 was unremarkable. CK was elevatedat 700 but with elevated myoglobin at 86 (normal 25-58). Urine free light chains apparently showed a Bence Gallegos protein, but on repeat was negative when evaluated by hematology. On 05/10/2022, Hgb 9.8 with creatinine 0.96 (up from baseline a few months prior ~0.5), BUN 44, potassium 4.7 while on Lasix 20 mg daily. CRP and ESR may have been mildly elevated in the past. Patient complained of generalized weakness, fatigue, not being able to do her daily chores at home. Exam was notable for 4+ pitting edema in the legs, a resting tremor. Patient's elevated creatinine and BUN were explained by diuretic therapy. Some immunologic serologies were ordered given concern for myositis with elevated CK.Patient was encouraged to continue Lasix. She was also encouraged to follow-up with hematology regarding anemia. This visit, patient confirms the above history. She elaborates that her symptoms began about a yearago, when she went to the ED and was told her serum protein was low. She says the swelling is mostly in her legs, but she also has noticed some swelling along the left breast and left upper extremity. She has been increasing her protein intake - consuming 90 mg protein through her diet and an additional 45 g through supplemental protein shakes. She tells me no significant proteinuria has been identified in her urine. Regarding a possible protein losing enteropathy, she endorses a history of small intestinal bacterial overgrowth (SIBO) characterized by bloating and constipation; she denies diar emory or loose stools. She reports having tried rifaxamin without improvement. She denies a history of congestive heart failure and reports having had a normal echocardiogram. A BNP was checked on 03/15/2022 and was minimally elevated at 117.2 pg/mL (ref range 0-100). She has gained a lot of weight,due to fluid retention with third spacing, as she is severely hypoalbuminemic. She has also had negative testing for SAYRA by [facility] (05/18/2022), ANCA (05/12/2022), normal serum complements (C3 & C4), normal CRP (<2.90) and slightly elevated ESR (33) on 05/12/22. CK was elevated at 283 (05/12/22). Iron studies have been consistent with iron deficiency, for which patient reports having had iron infusions. Ferritin 14 L, iron 34 L, iron saturation 8.1% L, TIBC 419 (05/20/22). Regarding her iron deficiency, she denies hematochezia, melena, gross hematuria, hemoptysis, or a family history of cancer. As mentioned above, she had a CT chest, abdomen, and pelvis on 03/18/2022 which was apparently negative. Regarding her elevated CK level, she relates generalized muscle weakness, which is most pronounced in the legs as opposed to the upper extremities. She is essentially bed-bound at this time. She is unable to perform activities of daily living without assistance. Her vitamin B12 has actually been very high, but she attributes this to having previously been taking a B complex vitamin. She has had an abnormally low serum kappa/lambda ratio of 0.13 (normal 0.26 - 1.65) on 05/20/2022. All of her serum immunoglobulins have been low (IgA 40, IgG 251, IgM 18) on 05/20/2022. Her TSH was elevated to 11.40 but with normal free T4 of 1.10 on 05/20/2022. She has a history of hypothyroidism and takes levothyroxine. She reports a past history of having taken [place] thyroid. [id number]-[id number] serum was normal at 212 mg/dL on 05/19/2022. Other labs from 05/20/2022 reveal CHANO with negative M spike. Low total protein at 4.9, and an abnormal kappa/lambda ratio of 0.13. Patient's sister is concerned that she might have an unusual form of multiple myeloma, presenting as lymphedema (she brought a copy of the paper to the visit today). Patient and her family want to see hematology for additional work-up, including bone marrow biopsy. Other labs, from 06/01/22 show CBC with WBC 6.4, Hgb 9.0 (MCV 94.2), Plt 170. CBC diff with anisocytosis, target cells. Cr 0.73, BUN 36, CO2, Na 142, K 4.0, CO2 31. AST 84, ALT 85, albumin 2.0. Normal FT4 and low FT3. Haley says she is a 'very sensitive person.' She used to take '22 supplements,' but is taking a lotless now. She denies history of vegan diet; she has a good appetite and reports a robust balanced diet. She endorses a strong family history of Margot's thyroiditis, but denies other autoimmune disease. 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 She reports being up-to-date with age-appropriate cancer screening and had a mammogram within the past few years, PAP one year ago. She says her grandmother from colon cancer. (4) GASTROENTEROLOGY IMPRESSION 57 yo female with complex PMH including CKD-2, hypothyroidism, and iron deficiency anemia who presents for evaluation of elevated liver enzymes. Has had acute hep panel checked which was negative. Suspect that her minimal liver enzyme abnormalities are related to her underlying to be diagnosed condition. Would defer further liver testing until she has a chance to be evaluated by GI. Due to hypoalbuminemia, anasarca, weight loss, and elevated fecal calprotectin, as well as lack of successful colonoscopy in the past, will refer to IBD groupfor evaluation. RECOMMENDATION: - will follow-up after IBD evaluation to see if further liver specific testing is required - in the future would consider completing serologic work-up for autoimmune hepatitis, PBC (even though ALP is currently normal); history of CLIFFORD so do not suspect hemochromatosis; ceruloplasmin normal I spent a total of 60 minutes on the date of the service which included preparing to see the patient, [id number] patient care, completing clinical documentation, obtaining and/or reviewing separately obtained history, performing a medically appropriate examination, counseling and educating the pat ient/family/caregiver, ordering medications, tests, or procedures, communicating with other HCPs (not separately reported), independently interpreting results (not separately reported), communicatingresults to the patient/family/caregiver, and care coordination (not separately reported). I have communicated my name and active licensure. The patient's identity and physical location wereverified at the time of this visit. Either the patient or their legal sales and merchandising representative has been informed of the risks and benefits of -- and alternatives to -- treatment through a remote evaluation andconsents to proceed with the evaluation remotely. Alesha Matos MD Orders Placed COLONOSCOPY DIAGNOSTIC EGD DIAGNOSTIC REASON FOR VISIT Haley Glez [id number] has requested a video telemedicine initial consultation at the request of Dr. Ignacio Aguilar and Dr. Alesha Matos for hypoalbuminemia, anasarca, weight loss, and elevated fecal calprotectin, as well as lack of successful colonoscopy in the past for further evaluation.Haley Glez verbalized informed consent to proceed with the video telemedicine initial consultation. Haley Glez was informed that the details of this video visit would be recorded as part of their electronic medical record. My recommendations will be conveyed to the consulting provider by way of shared electronic medical record, fax, or U.S. Mail. Patient location at time of call: Home Additional encounter participants and relationship: Sister IMPRESSION 57 y o female with PMH including CKD-2, nephrotic syndrome, hypothyroidism, SIBO, IBS, CLIFFORD, OCD anddepression who presents virtually for further assessment of a positive FOBT and elevated fecal calp. Last CRC screening was done by Eileen in 10/01/2018 which was Negative. GI testing: Abdominal US on 12/29/21 showed normal liver. No ascites noted. CT abdomen on 03/18/22 unremarkable. 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 Functional medicineprovider noted a +FOBT and fecal calp >1000. She has had multiple attampts in getting a colonsocpy done, however, unsuccessful due to poor prep. Mrs Glez and her sister report concern of her recent GI testing results. She has been getting ironinfusions twice this year. Will plan to get a colonoscopy/EGD to evaluate if there is any disease activity. Due to her constipation, I recommend a bowel regimen of Miralax daily 1 capful, titrate as needed. Do a two day clear liquids prior to colonoscopy. She has a fluid restriction of 7 cups of water daily for the anasarca, will order Sutab bowel cleanse. We are ok for the prep to be fair since we are checking for inflammation. Further recommendations will be made after the colonoscopy. Instructions for Colonoscopy: -Minimize roughage in diet up to colonoscopy date -Up to 2 days prior to colonoscopy-Miralax daily 1 capful, titrate as needed to get formed and softbowel movements - 2 days prior to colonoscopy-Do the Miralax/Gatorade prep (diet is clear liquid all day) -The day before colonoscopy: Do the Sutab prep (diet is clear liquid all day) PLAN -Schedule colonoscopy/EGD small bowel biopsy with advaced staining and random colon biopsy including the TI -Colonoscopy instructions as above -F/U with Aruna Del Cid APRN in a week after the colonoscopy -F/U with Dr. Lea in 4 weeks LABORATORY STUDIES PERFORMED DURING THIS NCS VISIT: @[id number]@ @[id number]@ Imaging Other investigations COMPREHENSIVE IMPRESSIONS AND PLANS AFTER PATIENT'S NATIONAL CONSULT VISIT (NCS): Encounter Diagnosis ICD-10-CM 1. Muscle weakness of lower extremity M62.81 2. Edema, unspecified type R60.9 3. MGUS (monoclonal gammopathy of unknown significance) D47.2 4. Lymphedema I89.0 5. Iron deficiency anemia, unspecified iron deficiency anemia type D50.9 6. Stage 2 chronic kidney disease N18.2 7. Irritable bowel syndrome with constipation K58.1 8. Hypoalbuminemia E88.09 EHR Session ID: [id number] Meeting Number: [id number] At today's FOLLOW UP VISIT FOR NATIONAL CONSULT SERVICE, I discussed the following items with the patient today: 1) NEUROMUSCULAR : Assessment and recommendations as follows: Subjective weakness, with normal manual strength on exam. The two CPK values I can see are in the 200s, and should be normal for a patient of this age and size. Slightly hyporeflexia in legs and mildly reduced vibration sensation in toes with intact pinprick. In the presence of significant leg edema, their significance is unclear. There is no clear evidence of a peripheral neuropathy. Serum glucose, B12, B1, folate and IEP all havebeen checked. No further workup from neuromuscular is needed. Continue physical therapy. 2) VASCULAR MEDICINE : Assessment and recommendations as follows: The patient has most likely lymphedema due to secondary causes of calf muscle dysfunction disuse, low albumin/protein along with hypothyroidism. All these can contribute to developing of lymphedema. The patient has been applying her gym leggings to help compression. The patient does not complain of any pain no ulcer formation. Our recommendation is as follow:-We will apply Tubigrip followed by SurePress wraps.Compression wraps to bilateral LEs daily during the day (can remove for comfort during night) -SurePress wraps should be applied in a spiral fashion from base of toes to just below the knee, with 50% overlay -Wraps should be removed daily, meticulous skin care provided (i.e. soap, water, lotion) and compression wraps reapplied. -LE should be elevated above the level of the heart whenever patient is sitting or lying down in bed-Encourage activity with physical therapy-Refer the patient to lymphedema therapy for manual lymphatic drainage-After the MLD might refer the patient for lymphedema pump and compression garment measurements.-Continue treatment of underlying cause of her immobility with physical therapy, protein loss enteropathy with her upcoming colonoscopy and further treatment with GI and hypothyroidism. 3) HEMATOLOGY: Assessment and recommendations as follows: PLAN: We will obtain: - SPEP, UPEP, MPA, B2M, CBC with differential, Complete chemistry panel, 24hr urine for total protein, serum and urine kappa/lambda light chains, - Skeletal survey to rule out lytic lesions, - Upon review of the available data, is likely that Maria Luz will fall into the category of Monoclonal Gammopathy of Undetermined Significance (MGUS). If so, we would plan to monitor Myeloma labs every 3 months initially, then every 6 months. These wouldinclude SPEP and UPEP with immunefixation, CBC with Differential, Beta-2 Microglobulin, 24 hr Urinefor Total protein, Complete chemistry Panel, and [place]/Lambda, free serum and urine evaluation.- The patient was asked to call to report any new symptoms of fatigue, back or bony pain, activity intolerance Next follow-up in 3 months. 4) GASTROENTEROLOGY : Schedule colonoscopy/EGD small bowel biopsy with advaced staining and random colon biopsy including the TI. Colonoscopy instructions as above. F/U with Aruna Del Cid APRN mariaa week after the colonoscopy. F/U with Dr. Lea in 4 weeks 4) INTERNAL MEDICINE: I had my After Visit Summary (AVS) with Haley Glez today. Patient is accompanied by sister Lizett. We started with the review of the initial visit/intake I had and reviewed the assessment and recommendations from our consultants from this NCS visit. She states her home PT or nurse can help with leg wrapping for her lymphedema. They are concern about losing home health aids if she goes to a lymphedema clinic and would no longer be consider home bound. I advised Lizett to reach out to the PCP to see if able to order skilled care for lymphedema wraps at home. They live in [place] so clos[facility] is [facility] for them. They will reach back to Hematology to schedule the bone marrow biopsy. I advised them to let Hematology also discuss their labs and xrays. 5) THE FOLLOWING ARE STILL OUTSTANDING TESTINGS/ISSUES THAT THE PATIENT WILL NEED TO FOLLOW UP AT THE COMPLETION WITH NATIONAL CONSULT VISIT: returning to [facility] for EGD and Colonoscopy 08/10/2022. They will coordinated with Hematology on Bone Marrow. They will do PT at home (currently getting twice weekly). At the conclusion of Haley Glez visit to NATIONAL CONSULT SERVICE at this time, the patient is aware that she will need to resume and continue to be managed by their Primary Care Physician (PCP) at home with the recommendations we have proposed at this time. Haley Glez is aware that I cannot continue to be her primary care physician and that further testings, such as laboratory studies,images and referrals must now be done through the PCP. Furthermore, I will share all information obtained during this NCS visit to the PCP or whomever patient has designated in their care via a letter and though this electronic medical record. I informed the patient today that if they would like further evaluation for similar or different issues after this visit, we would ask the patient to schedule a separate NCS visit in the future. Patient voiced understanding of our plan. During this patient visit I have spent approximately 40 minutes out of 40 in counseling regarding treatment options and test results and coordinating care. Jenna Trevino MD Cc: Jossie De La Rosa MD documented in this encounterHol[facility] History of Present illness Narrative* Chris Rao MD - 06/21/2022 2:45 PM EDT Images from the original note were not included. Chief Complaint: leg weakness and elevation of CPK HISTORY OF PRESENT ILLNESS: Ms. Haley Glez is a 57 year old right handed female presented to the [facility] at [facility] for an initial evaluation. Patient comes in with her sister.Patient has been seen and referred for consultation by Dr. Jenna Trevino. She has had gut issues all her life. She has gases, heartburn, constipation, poor absorption. Shewas noted with low albumin. She has slight elevation of LFTs and pancreatic enzymes. Her CBC showedanemia. She was noted with diffuse edema. She complains weakness in her legs. Her legs buckle while walking. She does fall from time to time.She uses a walker or wheelchair. She feels that her arms are strong. She feels that her handgrip isgood. She feels that her weakness is caused by medications, water pills. Her CPK level was 283 on 05/12/2022 and 239 on 06/03/2022. There was a mentioning that her CPK was once at 700 but I can not find the original report. He admits tingling in her feet but not in hear legs. She has no tingling in her hands. She has no neck pain but she complains neck stiffness. She has minimal lower back pain. She has no headache. Shereports decreased vision on both sides. She has no double vision, ptosis, seizure or loss of consciousness. She feels that she has some swallowing issues (things do not want to go down) for the last couple of weeks. She has no chewing problem. She has no urinary/fecal incontinence. She has a sleep difficulty with going asleep. Testing and treatment history: The following blood tests are normal: B12, B1, iron, folate, SPEP, CMP (except mildly elevated LFTs) PAST MEDICAL HISTORY: PAST MEDICAL HISTORY Diagnosis Date Anxiety state, unspecified Depressive disorder, not elsewhere classified IBS (irritable bowel syndrome) Multiple chemical sensitivity syndrome Small intestinal bacterial overgrowth (SIBO) PAST SURGICAL HISTORY: PAST SURGICAL HISTORY Procedure Laterality Date TOOTH EXTRACTION MEDICATIONS: Current Outpatient Medications Medication Sig furosemide (LASIX) 20 mg tablet Take 20 mg by mouth once daily. levothyroxine (SYNTHROID) 50 mcg tablet Take 50 mcg by mouth once daily. 100 mcg 5 days a week. Other two days 50mcg. OTC PRODUCT Food enzymes 3x daily acetylcysteine (ACET-CYS) Take 1,000 mg by mouth once daily. cholecalciferol, vitamin D3, (D3-2000 ORAL) Take 2,000 mg by mouth once daily. melatonin 5 mg tablet Take 4 mg by mouth daily at bedtime. Lactobacillus acidophilus (PROBIOTIC) 10 billion cell cap Take 133 capsules by mouth daily at bedtime. Calcium-Magnesium 300-300 mg tab Take by mouth. Pt unsure of mg. OTC PRODUCT Progesterone Cream 20ml 0.3ml once a day, Bi-estrogen (80/20) .625mg 0/2 ml twice a day(Patient taking differently: Progesterone Cream 20ml 0.3ml once a day,) No current facility-administered medications for this visit. ALLERGIES Allergen Reactions Amoxicillin Other: See Comments Codeine Other: See Comments Flavoring Agent (Bu* Other: See Comments Lactose Other: See Comments Peppermint Flavor Other: See Comments FAMILY HISTORY: No history of neuromuscular disease. Father: of congestive heart failure Mother: AFib, hypothyroidism SOCIAL HISTORY: No tobacco. No significant alcohol abuse. No history of substance abuse. Occupation: not employed Marital status: no children, not REVIEW OF SYSTEMS: Positive for the following symptoms: weight loss of unknown pounds, dry eyes, hyperacusis, leg edema, nausea, constipation, occult blood in stool, mild depression Constitutional: Negative for fevers, chills, night sweats, weight gain Eyes: Negative for eye pain, or floaters. ENT: Negative for decreased hearing, ringing in the ears or dry mouth. Respiratory: Negative for cough, wheezing or shortness of breath. Cardiovascular: Negative for chest pain, palpitation. Gastrointestinal: Negative for abdominal pain, vomiting, diarrhea. Genitourinary: Negative for blood in urine, hesitancy. Musculoskeletal: Negative for joint pain, muscle cramps, muscle twitches. Skin: Negative for rashes. Hematology and oncology: No history of cancer. Endocrine: Negative for abnormal sweating, diabetes Psychiatry: Negative for depression, anxiety, panic attack, thoughts of suicide or hallucinations. COVID (no). COVID Vaccination: 0 doses of COVID vaccine. PHYSICAL EXAMINATION: Blood pressure 106/67, pulse (!) 56, height 177.8 cm (5' 10), weight 64 kg (141 lb), SpO2 100 %. General: Well appearing, comfortable, in no apparent distress. Respiratory: Clear to auscultation. Cardiac: Regular rate and rhythm, no murmur. Extremities: No deformities. Distal leg edema is prominent on both sides. Skin: No rashes. NEUROLOGICAL EXAMINATION: Mental Status: Alert. Following commands. Speech: fluent speech without dysarthria or aphasia. Normal fund of knowledge Remote memory intact. Cranial Nerves: II: Visual cruz full to confrontational testing. III/IV/: Pupils equal, round and reactive to light. No nystagmus. No ptosis Eye motility findings Right Left Upgaze Normal Normal Lateral gaze Normal Normal Medial gaze Normal Normal Down-gaze Normal Normal (Normal; -1, mild restriction; -2 moderate restriction; -3, severe restriction with minimal movement; -4, no movement) V: Normal facial sensation. VII: Normal facial symmetry and movements. VIII: Normal hearing. IX-X: Normal palatal movement. Uvula midline. XI: Normal shoulder shrug and head turning. XII: Normal tongue strength and range of motion, no deviation, atrophy or fasciculation. Motor: Normal muscle tone. No atrophy. No fasciculations. Postural tremor is present in hear hands.Irregular jerks are noted but this appears to be intermittent and distractable. Muscle strength Right Left Neck flexor 5 Neck extensor 5 Shoulder abductor 5 5 Elbow flexion 5 5 Elbow extension 5 5 Wrist flexion 5 5 Wrist extension 5 5 First dorsal interosseous 5 5 Abductor digiti minimi 5 5 Abductor pollicis brevis 5 5 Hip flexion 5 5 Knee extension 5 5 Knee flexion 5 5 Knee abduction 5 5 Knee adduction 5 5 Dorsiflexion 5 5 Plantar flexion 5 5 Reflexes: No Barrios's sign. No Tromner's sign. Right Left Biceps ++ ++ Triceps ++ ++ Knee jerk ++ ++ Ankle jerk ++ + Babinski Flexor Flexor Sensory examination: Pinprick: normal in fingertips; normal in toes. Vibration: normal in fingertips; moderately reduced at toes. Proprioception: normal in fingertips; normal in toes. Coordination: Normal rapid alternating movements. No ataxia on [id number] and qrzn-fh-rmsu testing. Gait: Romberg negative. Heel standing: able Toe standing: able OUTSIDE RECORDS: Records through Care Everywhere were thoroughly reviewed. INTERNAL RECORDS: The patient's electronic medical record was reviewed. The relevant details are summarized as above. IMPRESSION/PLAN: Subjective weakness, with normal manual strength on exam. The two CPK values I can see are in the 200s, and should be normal for a patient of this age and size. Slightly hyporeflexia in legs and mildly reduced vibration sensation in toes with intact pinprick. In the presence of significant leg edema, their significance is unclear. There is no clear evidence of a peripheral neuropathy. Serum glucose, B12, B1, folate and IEP all have been checked. No furtherworkup from neuromuscular is needed. Continue physical therapy. I spent a total of 50 minutes on the date of the service which included [id number] patient care, completing clinical documentation, obtaining and/or reviewing separately obtained history, performing a medically appropriate examination, and counseling and educating the patient/family/caregiver . All questions answered. Written instructions provided. Chris Rao M.D., Ph.D. Staff Physician [facility] [address] [place] [address] CC: Jenna Trevino [address] [facility] [address] Jossie De La Rosa MD [address] [facility] [id number] documented in this encounterHolmes County [facility]03-27-2023 Instructions* Patient Instructions* Shauna White APRN.CNP - 06/21/2022 12:20 PM EDT Thank you for seeing me today for an abnormal serum electrophoresis/elevated serum lambda free light chein/monoclonal gammopathy of unknown significance (MGUS). Please have labs done on the first floor of [facility] and machine pecan picker a 24 hr urine container. The bone survey Xrays are done in the Lower Level (LL) on the elevator control pad. Will call you to review the results of the tests as they become available. Ermelinda White documented in this encounterHolmes [facility]03-27-[facility]23 Nurse Note* Jenny Davis LPN - 06/21/2022 11:14 AM EDT Additional intake questions: Has the patient had fever, nausea, vomiting, diarrhea, constipation, fatigue for > 1 week? Yes, nausea, constipation and fatigue Does the patient have a decreased appetite? Yes Does patient want to see a Technical Support Specialist? No, ALREADY DID (yes to any of above refer patient to schedulers for dietitian appointment) ) Does patient have any new or increased numbness or tingling of extremities? No Is patient interested in fertility information? No Does patient need any prescription refills? No Does patient have an advanced directive in place no documented in this encounterHolmes [facility]03-27-[facility] History of Present illness Narrative* Shauna White APRN.SOLAR SALES ASSOCIATE - 06/21/2022 11:00 AM EDT Images from the original note were not included. [facility] Haley Glez is a 57 year old female patient. Reason for visit: Consult, referred by Dr. Ignacio Aguilar for abnormal SPEP. My recommendations to the consult requesting physician are communicated via the shared electronic medical record or US mail. Baseline assessment on initial diagnosis date May Cancer Staging (Hyperlink to Activity) No matching staging information was found for the patient. 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 and may represent an unusual presentation of polyclonal immunoglobulins, but cannot ruleout the presence of a low level M protein 06/03/2022 Related Organ or Tissue Involvement (CRAB) or other Myeloma Defining Event (MDE): Anemia (HgB < 10g/dL or 2g/dL below LLN), actual value: 9.1 g/dL Antecedent plasma cell dyscrasia: No Myeloma FISH panel: Cytogenetics: LDH: 156 U/L (100 - 220) ISS stage: Albumin: 2.9 g/dL, B2M: 2.7 mg/L [place] Stage: Monoclonal proteins at diagnosis: Serum M-spike: 0.00 gm/dL, kappa serum free light chains: 35.6 mg/L, lambda serum free light chains: 397.8 mg/L, Urinary m- protein: an atypical restricted band is present in the lambda region. The presence of free lambda light chains in the urine is consistent witha lambda- containing monoclonal gammopathy, Urinary protein excretion: 0.07 g/24hrs, Urinary albumin: 31.43 %, and Urinary m-protein present Not measurable Total immunoglobulins at diagnosis: IgG 244 mg/dL, IgA 31 mg/dL, IgM 16 mg/dL Bone marrow plasma cell infiltration: % Systemic treatment and disease course Local treatments (radiation, surgery, kyphoplasty) History of present illness Ms. Glez is a 57 yr old female with PMHx of IBS, SIBO, left rotator cuff tendonitis, anxiety, OCD,depression, Margot's thyroiditis, and history of leukopenia (2011) who presents today for evaluation of an abnormal SPEP with no measurable M protein. She is accompanied by her fraternal twin sister, Lizett. She states she has environmental illness with multiple chemical sensitivities. Ms Glez was evaluated by Dr Ignacio Aguilar/Rheumatology 06/03/2022 for elevated CK, generalized muscle weakness, anasarca with swelling in the legs & feet, and elevated liver function tests. Per Dr Aguilar's consult note 06/03/2022: At the time of the visit, we had only received on outside document, a note from her electric meter inspector, dated 05/12/2022. Patient apparently had been referred to nephrology for anasarca and to evaluate for nephrotic syndrome. She had been hospitalized in February 2022 and seen by hematology for anemia andnephrology for hypoalbuminemia and anasarca. Her albumin was low at 2.5 and Hgb 8.8 in February 2022. A 24 hour urine protein showed just 55 mg of protein and no M spike on UIFE. Patient had been trying to increase her protein intake and was on a fluid restricted diet. She continued to have significant edema. She was intolerant to Bumex as it caused dizziness and slurred speech. She was discharged on Lasix 20 mg daily. She saw GI for elevated liver function tests -- viral hepatitis studies wereunremarkable. Apparently a colonoscopy had been attempted (patient says on three occasions), with poor prep. She was told she had problems with malabsorption. An abdominal ultrasound on 12/29/2021 showed normal liver and no ascites. CT of the abdomen from 03/18/2022 was unremarkable. CK was elevatedat 700 but with elevated myoglobin at 86 (normal 25-58). Urine free light chains apparently showed a Bence Gallegos protein, but on repeat was negative when evaluated by hematology. On 05/10/2022, Hgb 9.8 with creatinine 0.96 (up from baseline a few months prior ~0.5), BUN 44, potassium 4.7 while on Lasix 20 mg daily. CRP and ESR may have been mildly elevated in the past. Patient complained of generalized weakness, fatigue, not being able to do her daily chores at home. Exam was notable for 4+ pitting edema in the legs, a resting tremor. Patient's elevated creatinine and BUN were explained by diuretic therapy. Some immunologic serologies were ordered given concern for myositis with elevated CK.Patient was encouraged to continue Lasix. She was also encouraged to follow-up with hematology regarding anemia. This visit, patient confirms the above history. She elaborates that her symptoms began about a yearago, when she went to the ED and was told her serum protein was low. She says the swelling is mostly in her legs, but she also has noticed some swelling along the left breast and left upper extremity. She has been increasing her protein intake - consuming 90 mg protein through her diet and an additional 45 g through supplemental protein shakes. She tells me no significant proteinuria has been identified in her urine. Regarding a possible protein losing enteropathy, she endorses a history of small intestinal bacterial overgrowth (SIBO) characterized by bloating and constipation; she denies diar emory or loose stools. She reports having tried rifaxamin without improvement. She denies a history of congestive heart failure and reports having had a normal echocardiogram. A BNP was checked on 03/15/2022 and was minimally elevated at 117.2 pg/mL (ref range 0-100). She has gained a lot of weight,due to fluid retention with third spacing, as she is severely hypoalbuminemic. She has also had negative testing for SAYRA by IFA (05/18/2022), ANCA (05/12/2022), normal serum complements (C3 & C4), normal CRP (<2.90) and slightly elevated ESR (33) on 05/12/22. CK was elevated at 283 (05/12/22). Iron studies have been consistent with iron deficiency, for which patient reports having had iron infusions. Ferritin 14 L, iron 34 L, iron saturation 8.1% L, TIBC 419 (05/20/22). Regarding her iron deficiency, she denies hematochezia, melena, gross hematuria, hemoptysis, or a family history of cancer. As mentioned above, she had a CT chest, abdomen, and pelvis on 03/18/2022 which was apparently negative. Regarding her elevated CK level, she relates generalized muscle weakness, which is most pronounced in the legs as opposed to the upper extremities. She is essentially bed-bound at this time. She is unable to perform activities of daily living without assistance. Her vitamin B12 has actually been very high, but she attributes this to having previously been taking a B complex vitamin. She has had an abnormally low serum kappa/lambda ratio of 0.13 (normal 0.26 - 1.65) on 05/20/2022. All of her serum immunoglobulins have been low (IgA 40, IgG 251, IgM 18) on 05/20/2022. Her TSH was elevated to 11.40 but with normal free T4 of 1.10 on 05/20/2022. She has a history of hypothyroidism and takes levothyroxine. She reports a past history of having taken [place] thyroid. [id number] serum was normal at 212 mg/dL on 05/19/2022. Other labs from 05/20/2022 reveal CHANO with negative M spike. Low total protein at 4.9, and an abnormal kappa/lambda ratio of 0.13. Patient's sister is concerned that she might have an unusual form of multiple myeloma, presenting as lymphedema (she brought a copy of the paper to the visit today). Patient and her family want to see hematology for additional work-up, including bone marrow biopsy. Other labs, from 06/01/22 show CBC with WBC 6.4, Hgb 9.0 (MCV 94.2), Plt 170. CBC diff with anisocytosis, target cells. Cr 0.73, BUN 36, CO2, Na 142, K 4.0, CO2 31. AST 84, ALT 85, albumin 2.0. Normal FT4 and low FT3. Haley says she is a 'very sensitive person.' She used to take '22 supplements,' but is taking a lotless now. She denies history of vegan diet; she has a good appetite and reports a robust balanced diet. She endorses a strong family history of Margot's thyroiditis, but denies other autoimmune disease. 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 She reports being up-to-date with age-appropriate cancer screening and had a mammogram within the past few years, PAP one year ago. She says her grandmother from colon cancer. Haley denies fevers or chills. She does have some cold sweats at night. She is gaining 1 lb per day. She denies photosensitivity. She denies dry eye. She has dry mouth which she attributes to fluidrestriction. She denies oral or nasal ulcers. She denies malar rash. She does endorse a rash on herabdomen. She denies gross hematuria or frothy urine. She endorses a history of SIBO and bloating with constipation, as discussed above. She denies joint pain. She relates some chronic sinus issues. She endorses a dry cough, but denies hemoptysis. She denies raynaud's phenomenon, digital ulcerations. She does have some shortness of breath. She has some mild heartburn. Denies hematochezia or melena. She endorses imbalance and tremor. Review of systems General: No fever , No chills, and cold sweats HEENT: No lumps, no difficulty chewing or swallowing, no enlarging tongue, no tooth aches. Musculoskeletal: No Pain Hematological: No bleeding or easy bruising. Lymphatic / Immune system: No lymph node enlargement or infection. Cardiovascular: (+) dyspnea with activity, (+) leg edema, no chest pain, no palpitations. Pulmonary: No dyspnea, no wheezing, no cough. and (+) cough Gastrointestinal: No nausea, vomitting, (+) severe constipation, (+) abdominal pain, no visible blood in stool Genitourinary: Urine output: Good Neurological: (+) numbness/tingling, tremors, weakness. 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 furosemide (LASIX) 20 mg tablet Take 20 mg by mouth once daily. levothyroxine (SYNTHROID) 50 mcg tablet Take 50 mcg by mouth once daily. 100 mcg 5 days a week. Other two days 50mcg. vitamin B complex (B COMPLEX 50 ORAL) Take 50 mg by mouth once daily. OTC PRODUCT Food enzymes 3x daily acetylcysteine (ACET-CYS) Take 1,000 mg by mouth once daily. cholecalciferol, vitamin D3, (D3-2000 ORAL) Take 2,000 mg by mouth once daily. melatonin 5 mg tablet Take 4 mg by mouth daily at bedtime. Lactobacillus acidophilus (PROBIOTIC) 10 billion cell cap Take 133 capsules by mouth daily at bedtime. Calcium-Magnesium 300-300 mg tab Take by mouth. Pt unsure of mg. progesterone 50 mg/mL injection 20 mg daily at bedtime. 20mg/0.1ml cream OTC PRODUCT Progesterone Cream 20ml 0.3ml once a day, Bi-estrogen (80/20) .625mg 0/2 ml twice a day Social History Tobacco Use Smoking status: Never Smokeless tobacco: Never Substance Use Topics Alcohol use: No Drug use: No FAMILY HISTORY Problem Relation Age of Onset Osteoporosis Mother Heart Mother afib GI Father IBS Margot Disease Sister other (environmental sensitivities [Other]) Sister both sisters Physical examination BP 116/76 Pulse (!) 51 Temp (!) 35.6 C (96.1 F) (Oral) Resp 18 Wt 64 kg (141 lb) BMI 20.23 kg/m ECOG PS: 3- Capable of only limited selfcare, confined to bed/chair > 50% of waking hrs. General appearance: Alert, in no acute distress, pale, in wheelchair HEENT: No lumps, no macroglossia, no icterus. Mucous membranes pink. Neck: Supple, no adenopathy; thyroid symmetric, normal size, no bruits Back: motor and sensory appear to be normal Lungs: diminished bibasilar, fine rales L base, otherwise BS essentially clear to auscultation. No wheezing, rhonchi. Heart: RRR without murmur, gallop, or rubs. No ectopy Abdomen: Abdomen soft, non-tender. Bowel sounds normal, mild abdominal distention Extremities pitting edema Edema: BLEs Musculoskeletal: muscle wasting, anasarca from waist to feet, legs wrapped Neuro: Alert and oriented x 3. Cranial nerves 2-12 grossly intact, generalized weakness Skin: no rashes, lesions, or jaundice Plasmacytomas: No Laboratory tests WBC (k/uL) Date Value 06/21/2022 5.03 Abs Neut (k/uL) Date Value 06/21/2022 4.27 Hemoglobin (g/dL) Date Value 06/21/2022 9.1 Platelet Count (k/uL) Date Value 06/21/2022 179 Glucose (mg/dL) Date Value 06/21/2022 99 Creatinine (mg/dL) Date Value 06/21/2022 0.92 Calcium, Total (mg/dL) Date Value 06/21/2022 8.8 M-Protein Concentration (g/dL) Date Value 06/03/2022 0.00 [place] Free, Serum (mg/L) Date Value 06/21/2022 35.6 06/03/2022 34.8 Lambda Free, Serum (mg/L) Date Value 06/21/2022 397.8 06/03/2022 384.6 IgG (mg/dL) Date Value 06/21/2022 244 IgA (mg/dL) Date Value 06/21/2022 31 06/03/2022 37 IgM (mg/dL) Date Value 06/21/2022 16 Interpretation (MPA) (no units) Date Value 06/03/2022 Poorly defined region of restricted mobility in the lambda fadi. Pattern is less well defined or fainter than typically seen in monoclonal gammopathy. This could represent either an atypical presentation of polyclonal immunoglobulins or the presence of a low level lambda containing monoclonal gammopathy. Last skeletal imaging 06/21/2022 Result: IMPRESSION: 1. Mild vertebral body deformities in the thoracic and lumbar spine of benign appearance. 2. No discrete lytic lesions. Impression and Plan I discussed with the patient and her sister that a Monoclonal Gammopathy of Undetermined Significance (MGUS) is an asymptomatic condition that is included in a spectrum of monoclonal plasma cell disorders. MGUS is characterized by a monoclonal protein < 3 g/dL (30 g/L) in the serum and < 10% monoclonal plasma cells in the bone marrow and no evidence of end-organ damage ( CRAB ), lymphoma, Waldenstr m macroglobulinemia, or light chain amyloidosis (AL). I discussed that a diagnosis of MGUS is relatively common, affecting 3.2% of the population over the age of 50 years, and approximately 6% of the population. The natural history and pathophysiology of multiple myeloma, amyloidosis and plasma cell dyscrasiaswere explained. Three levels were discussed primarily as relates to IgG [place] monoclonal gammopathywhich includes, but is not limited to, MGUS (low level m protein without evidence of organ damage) smoldering MM (higher m component without organ damage, or multiple myeloma. The current criteria for active MM requiring treatment can be remembered by the mnemonic SLiM CRAB (Kath RASMUSSEN, et al., The Lancet. Oncol. Jan 2014;15(12):[id number].) S-Sixty percent or greater clonal plasma cells, Li- An elevated serum free light chains (kappa/lambda ratio >100, M- Magnetic Resonance Imaging (MRI) with greater than 1 focal lesion >5mm, C- Calcium elevation (>11.0g/dL) R- Renal insufficiency or failure (creat >2.0g/dL and related to the paraprotein) A- Anemia (hemoglobin less than 10 or a 2 gram drop from baseline), B- bone disease (osteoporosis or lytic lesions). We reviewed symptoms such as fatigue, easy bruising, or abnormal bleeding that may indicate active multiple myeloma with cytopenias. Also bone pain or fractures may indicate active multiple myeloma. Other conditions such as weight loss, nephrotic syndrome with edema, or unexplained dyspnea , neuropathy or symptoms of hyperviscosity may lead to think about an additional diagnoses. We also discussed about how to monitor this patient's using some predictors of risk of progression including the amount of M protein (more than 1.5 g/dL), non- IgG isotype or free light chain ratio less than 0.26 or more than 1.65. Lastly, we will get repeat immunoglobulin levels and serum free light chains (kappa and lambda) to further investigate her paraproteinemia. PLAN: - SPEP, UPEP, MPA, B2M, CBC with differential, Complete chemistry panel, 24hr urine for total protein, serum and urine kappa/lambda light chains, - Skeletal survey to rule out lytic lesions, - Upon review of the available data, Ms Glez may fall into the category of Monoclonal Gammopathy of Undetermined Significance (MGUS). If so, we would plan to monitor Myeloma labs every 3 months initially, then every 6 months. These would include SPEP and UPEP with immunefixation, CBC with Differential, Beta-2 Microglobulin, 24 hr Urine for Total protein, Complete chemistry Panel, and [place]/Lambda, free serum and urine evaluation. - The patient was asked to call to report any new symptoms of fatigue, back or bony pain, activity intolerance Next follow-up in 3 months or sooner if lab results dictate. ASSESSMENT/PLAN: 1. 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 Iron deficiency anemia - ICD9: 280.9, ICD10: D50.9 - IRON + TIBC Shauna White APRN.[facility] Hematologic Oncology [place] [address] Email: [email or web address] CC: Dr. Ignacio Aguilar At the time of the visit, we had only received on outside document, a note from her electric meter inspector, dated 05/12/2022. Patient apparently had been referred to nephrology for anasarca and to evaluate for nephrotic syndrome. She had been hospitalized in February 2022 and seen by hematology for anemia andnephrology for hypoalbuminemia and anasarca. Her albumin was low at 2.5 and Hgb 8.8 in February 2022. A 24 hour urine protein showed just 55 mg of protein and no M spike on UIFE. Patient had been trying to increase her protein intake and was on a fluid restricted diet. She continued to have significant edema. She was intolerant to Bumex as it caused dizziness and slurred speech. She was discharged on Lasix 20 mg daily. She saw GI for elevated liver function tests -- viral hepatitis studies wereunremarkable. Apparently a colonoscopy had been attempted (patient says on three occasions), with poor prep. She was told she had problems with malabsorption. An abdominal ultrasound on 12/29/2021 showed normal liver and no ascites. CT of the abdomen from 03/18/2022 was unremarkable. CK was elevatedat 700 but with elevated myoglobin at 86 (normal 25-58). Urine free light chains apparently showed a Bence Gallegos protein, but on repeat was negative when evaluated by hematology. On 05/10/2022, Hgb 9.8 with creatinine 0.96 (up from baseline a few months prior ~0.5), BUN 44, potassium 4.7 while on Lasix 20 mg daily. CRP and ESR may have been mildly elevated in the past. Patient complained of generalized weakness, fatigue, not being able to do her daily chores at home. Exam was notable for 4+ pitting edema in the legs, a resting tremor. Patient's elevated creatinine and BUN were explained by diuretic therapy. Some immunologic serologies were ordered given concern for myositis with elevated CK.Patient was encouraged to continue Lasix. She was also encouraged to follow-up with hematology regarding anemia. This visit, patient confirms the above history. She elaborates that her symptoms began about a yearago, when she went to the ED and was told her serum protein was low. She says the swelling is mostly in her legs, but she also has noticed some swelling along the left breast and left upper extremity. She has been increasing her protein intake - consuming 90 mg protein through her diet and an additional 45 g through supplemental protein shakes. She tells me no significant proteinuria has been identified in her urine. Regarding a possible protein losing enteropathy, she endorses a history of small intestinal bacterial overgrowth (SIBO) characterized by bloating and constipation; she denies diar emory or loose stools. She reports having tried rifaxamin without improvement. She denies a history of congestive heart failure and reports having had a normal echocardiogram. A BNP was checked on 03/15/2022 and was minimally elevated at 117.2 pg/mL (ref range 0-100). She has gained a lot of weight,due to fluid retention with third spacing, as she is severely hypoalbuminemic. She has also had negative testing for SAYRA by IFA (05/18/2022), ANCA (05/12/2022), normal serum complements (C3 & C4), normal CRP (<2.90) and slightly elevated ESR (33) on 05/12/22. CK was elevated at 283 (05/12/22). Iron studies have been consistent with iron deficiency, for which patient reports having had iron infusions. Ferritin 14 L, iron 34 L, iron saturation 8.1% L, TIBC 419 (05/20/22). Regarding her iron deficiency, she denies hematochezia, melena, gross hematuria, hemoptysis, or a family history of cancer. As mentioned above, she had a CT chest, abdomen, and pelvis on 03/18/2022 which was apparently negative. Regarding her elevated CK level, she relates generalized muscle weakness, which is most pronounced in the legs as opposed to the upper extremities. She is essentially bed-bound at this time. She is unable to perform activities of daily living without assistance. Her vitamin B12 has actually been very high, but she attributes this to having previously been taking a B complex vitamin. She has had an abnormally low serum kappa/lambda ratio of 0.13 (normal 0.26 - 1.65) on 05/20/2022. All of her serum immunoglobulins have been low (IgA 40, IgG 251, IgM 18) on 05/20/2022. Her TSH was elevated to 11.40 but with normal free T4 of 1.10 on 05/20/2022. She has a history of hypothyroidism and takes levothyroxine. She reports a past history of having taken [place] thyroid. [id number] serum was normal at 212 mg/dL on 05/19/2022. Other labs from 05/20/2022 reveal CHANO with negative M spike. Low total protein at 4.9, and an abnormal kappa/lambda ratio of 0.13. Patient's sister is concerned that she might have an unusual form of multiple myeloma, presenting as lymphedema (she brought a copy of the paper to the visit today). Patient and her family want to see hematology for additional work-up, including bone marrow biopsy. Other labs, from 06/01/22 show CBC with WBC 6.4, Hgb 9.0 (MCV 94.2), Plt 170. CBC diff with anisocytosis, target cells. Cr 0.73, BUN 36, CO2, Na 142, K 4.0, CO2 31. AST 84, ALT 85, albumin 2.0. Normal FT4 and low FT3. Haley says she is a 'very sensitive person.' She used to take '22 supplements,' but is taking a lotless now. She denies history of vegan diet; she has a good appetite and reports a robust balanced diet. She endorses a strong family history of Margot's thyroiditis, but denies other autoimmune disease. 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 She reports being up-to-date with age-appropriate cancer screening and had a mammogram within the past few years, PAP one year ago. She says her grandmother from colon cancer. documented in this [facility]03-27-2023 Nurse Note* Riley Bishop RN - 06/21/2022 10:[address] Walker's orders, pt fit and measured for Tubigrip size F and surepress wraps to bilateral legs from base of toes to one inch below the knee. Pt and sisters verbalized and demonstrated correct application. No further questions. Pt given extra set of Tubigrip and surepress wraps. Riley Bishop RN documented in this [facility]03-27-2023 Instructions* Patient Instructions* Yokasta Walker MD - 06/21/2022 10:24 AM EDT - You have lymphedema secondary to calf disuse and low protein and albumin - You will apply the tubigrip followed by the SurePress. Compression wraps to both legs daily during the day (can remove for comfort during night) -wraps should be applied in a spiral fashion from base of toes to just below the knee, with 50% overlay -Wraps should be removed daily, meticulous skin care provided (i.e. soap, water, lotion) and compression wraps reapplied. -Legs should be elevated above the level of the heart whenever patient is sitting or lying down in bed - Elevate the legs at night while a sleep and during the day 10-30 min every couple of hours documented in this [facility]03-27-2023 History of Present illness Narrative* Yokasta Walker MD - 06/21/2022 9:41 AM EDT Images from the original note were not included. [facility] [place] [facility] Department of Cardiovascular Medicine SECTION OF VASCULAR MEDICINE OUTPATIENT VISIT DATE June 21, 2022 OUTPATIENT VISIT TYPE CONSULTATION Consult regarding: Lower extremity edema Consult requested by: Jenna Trevino My final recommendations will be communicated back to the requesting physician by way of the sharedmedical record or by letter. 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 She says the swelling is mostly in her legs, but has involved her lower back, left breast and left upper extremity previously. Shehas been using compression wraps and elevating her legs which has helped with symptoms. She was started on multiple diuretics including lasix and indapamide which has helped with symptoms. She was found to have low albumin and total protein and has been increasing her protein intake - consuming 90 mg protein through her diet and an additional 45 g through supplemental protein shakes. Recently seen by GI at [facility] on 06/11 (Dr. Lea) and has colonoscopy scheduled for 08/03/22. Allergies: is allergic to amoxicillin, codeine, flavoring agent (bulk), lactose, and peppermint flavor. Medications: furosemide (LASIX) 20 mg tablet Take 20 mg by mouth once daily. levothyroxine (SYNTHROID) 50 mcg tablet Take 50 mcg by mouth once daily. 100 mcg 5 days a week. Other two days 50mcg. OTC PRODUCT Food enzymes 3x daily acetylcysteine (ACET-CYS) Take 1,000 mg by mouth once daily. cholecalciferol, vitamin D3, (D3-2000 ORAL) Take 2,000 mg by mouth once daily. melatonin 5 mg tablet Take 4 mg by mouth daily at bedtime. Lactobacillus acidophilus (PROBIOTIC) 10 billion cell cap Take 133 capsules by mouth daily at bedtime. Calcium-Magnesium 300-300 mg tab Take by mouth. Pt unsure of mg. OTC PRODUCT Progesterone Cream 20ml 0.3ml once a day, Bi-estrogen (80/20) .625mg 0/2 ml twice a day(Patient taking differently: Progesterone Cream 20ml 0.3ml once a day,) Past medical history: has a past medical history of Anxiety state, unspecified, Depressive disorder, not elsewhere classified, IBS (irritable bowel syndrome), Multiple chemical sensitivity syndrome, and Small intestinal bacterial overgrowth (SIBO). Past surgical history: has a past surgical history that includes tooth extraction. Family history: family history includes GI in her father; Margot Disease in her sister; Heart inher mother; Osteoporosis in her mother; environmental sensitivities in her sister. Social history: reports that she has never smoked. She has never used smokeless tobacco. She reports that she does not drink alcohol and does not use drugs. REVIEW OF SYSTEMS: Review of systems: General Fever or chills - YES Night sweats - YES Change in weight - YES Lumps in groin, underarms - No Neurological Headaches - No Seizures - No Passing out - No Dizziness/light headedness - YES Numbness, tingling, pins or needles - YES Weakness in arms or legs - YES Head, eyes, ears, nose and throat Changes in hearing - YES Changes in vision - YES Nose bleeds - YES Difficulty or pain with swallowing - YES Cardiovascular Chest pain or pressure - No Palpitations - No Irregular heartbeat - No Shortness of breath - No Respiratory Cough - No Wheezing - No Shortness of breath at rest - No Shortness of breath with exertion - No Coughing up blood - No Sleep apnea - No Gastrointestinal Abdominal pain - YES Nausea/vomiting - YES Diarrhea/Constipation - YES Stomach pain after eating - YES Blood in stool - YES Occult Black stool - No Genitourinary Pain with urination NO Blood in urine - No Gynecology - No Abnormal vaginal bleeding - No History of loss - No Extremity Bulging veins - No Swelling in arms or legs - YES Redness of extremities - YES Pain with walking - No Color change of hands/feet/digits - YES Musculoskeletal Joint pain - No Joint swelling - No Back pain - YES Muscle pain or ache - YES Skin Rash - YES Lesions - No Slow healing sores - YES Tight or thickened skin - YES Hematology Low blood counts - No Easy bruising - No Blood transfusions - YES Psychology Depressed mood - YES Anxiety or history of panic attacks - YES History of recreational drug use - No Cancer screening (up to date?): Colonoscopy: YES Pap smear: YES Mammogram: YES Prostate: N/A Smoking history: - Current or past smoker? No - If current smoker, are you interested in help with quitting? No Physical exam: BP 121/73 (BP Site: Left Arm, BP Position: Sitting, BP Cuff Size: Regular Adult) Pulse (!) 55 Ht 177.8 cm (5' 10) SpO2 99% General: Alert and oriented, in no acute distress, pleasant mood. Skin: Healthy, intact, no ulcerations, no rashes. HEENT: Head normocephalic, extraocular muscles intact, sclera anicteric, nasal and oral mucosa moist and pink, neck supple, no JVD, no carotid bruit. Cardiovascular: Heart has a regular rate and rhythm without murmur. Respiratory: Lungs clear auscultation bilaterally. Gastrointestinal: Abdomen soft and nontender. No abdominal bruit or palpable mass. Musculoskeletal: No cyanosis or clubbing. Peripheral vascular: Dorsalis pedis and posterior tibial pulses 2+/2 bilaterally. Feet and toes warm pink and well perfused. Lower extremities: Bilateral 3+ pitting edema of lower extremities from dorsum of feet to knees Imaging None Labs Component Latest Ref Rng & Units 06/03/2022 Protein, Urine Random 0 - 20 mg/dL <4 Creatinine, Ur Random (UCRR) 20.0 - 300.0 mg/dL 47.8 Protein/Creat Ratio <0.15 mg/mg <0.08 CK 42 - 196 U/L 239 (H) Aldolase 1.5 - 8.1 U/L 11.5 (H) Myoglobin, Urine 0 - 1 mg/L <1 TSH 0.270 - 4.200 mIU/L 5.930 (H) Impression/Recommendations #Bilateral lower extremity pitting edema - Likely 2/2 hypoalbuminemia which is 2/2 to protein losing enteropathy and underlying lymphedema from calf muscle disuse. May also be element of hypothyroidism (elevated TSH 11.4 -> 5.9 most recently 06/03/22). Low concern for nephrotic syndrome (24 hour urine protein showed just 55 mg of protein) and cirrhosis (recent US liver unremarkable per chart review) Plan: - Apply the tubigrip followed by the SurePress. - Colonoscopy planned for 08/03/22 - Titrate levothyroxine as necessary Richa Madison MD Internal Medicine, PGY-2 10:55 AM June 21, 2022 [facility] STAFF PHYSICIAN NOTE OF PERSONAL INVOLVEMENT IN CARE IMPRESSION: Patient is a 57 year old female past medical history of SIBO, protein-losing enteropathy, CKD, hypothyroidism, CLIFFORD came in for evaluation of bilateral lower extremity swelling. The patient is wheelchair dependent very limited mobilization has a negative proteinuria with a protein creatinine ratio < 0.08. The patient has low protein and albumin. Patient has positive Stemmer sign, creases at the bases of the toes, full ankles PLAN: Lymphedema Bilateral lower extremity swelling The patient has most likely lymphedema due to secondary causes of calf muscle dysfunction disuse, low albumin/protein along with hypothyroidism. All these can contribute to developing of lymphedema. The patient has been applying her gym leggings to help compression. The patient does not complain ofany pain no ulcer formation. Our recommendation is as follow: -We will apply Tubigrip followed by SurePress wraps.Compression wraps to bilateral LEs daily duringthe day (can remove for comfort during night) -SurePress wraps should be applied in a spiral fashion from base of toes to just below the knee, with 50% overlay -Wraps should be removed daily, meticulous skin care provided (i.e. soap, water, lotion) and compression wraps reapplied. -LE should be elevated above the level of the heart whenever patient is sitting or lying down in bed -Encourage activity with physical therapy -Refer the patient to lymphedema therapy for manual lymphatic drainage -After the MLD might refer the patient for lymphedema pump and compression garment measurements. -Continue treatment of underlying cause of her immobility with physical therapy, protein loss enteropathy with her upcoming colonoscopy and further treatment with GI and hypothyroidism. I have reviewed the documentation obtained and documented by the Resident and I have personally performed a face to face assessment of the patient and have personally participated in the fajardo components of the visit which includes medical decision making.. I have discussed the case and management ofthe patient's care. Yokasta Walker MD RPVI FACP DABVLM Associate Staff Vascular Medicine Section POCUS Director [facility] [address] [place] [address] [phone] Voice recognition software has been used to create this note. Seeming errors in the note should be considered accordingly. documented in this encounterHolmes [facility] Miscellaneous Notes* Telephone Encounter - Gerard Novoa APRN.CNP - 06/14/2022 11:32 AM EDT Spoke with patients relative, Shayla, regarding the plan for the EGD/colonoscopy and the preparation. She verbalized understanding. All questions and concerns were addressed. She may have the procedures at [place] due to logistics. Gerard Novoa APRN.CNP 11:35 AM documented in this encounterHolmes County [facility]03-17-2023 Instructions* Patient Instructions* Gerard Novoa APRN.CNP - 06/11/2022 3:35 PM EDT Images from the original note were not included. Bowel Preparation Instructions for: Miralax-Gatorade Preparations IF YOU DO NOT FOLLOW THESE DIRECTIONS, YOUR COLONOSCOPY WILL BE CANCELLED. Fajardo Instructions: Your bowel must be empty so that your doctor can clearly view your colon. Follow all of the instructions in this handout EXACTLY as they are written. Do NOT eat any solid food the ENTIRE day before your colonoscopy. Buy your bowel preparation at least 5 days before your colonoscopy. Four (4) Dulcolax laxative tablets containing 5mg of bisacodyl each (NOT Dulcolax stool softener) One (1) 8.3oz. bottle Miralax (238 grams) or generic equivalent 2 x 32oz. Bottles of Gatorade (NOT RED) Diabetic Patients: Use G2 (Gatorade 2) TRANSPORTATION on the Day of Your Exam A responsible adult MUST be present with you at Check In prior to your colonoscopy and REMAIN in the endoscopy area until you are discharged. You are NOT ALLOWED to drive, take a taxi or bus, or leave the Endoscopy Center ALONE. If you do not have a responsible auto carrier driver (family member or friend) withyou to take you home, your exam cannot be done with sedation and will be cancelled. Please bring a list of all of your current medications, including any Lotn-cwm-Njyjeuc medications with you. Medications If you take insulin, diabetic medications or blood thinners such as Coumadin (warfarin), Plavix (clopidogrel), Ticlid (ticlopidine hydrochloride), Agrylin (anagrelide), Xarelto (Rivaroxaban), Pradaxa(Dabigatran), Eliquis (Apixaban), and Effient (Prasugrel). You MUST call the doctors who orders those medicines for instructions on altering the dosage before your colonoscopy. All other medications should be taken the day of the exam with a sip of water including ASPIRIN. Five (5) Days Before Your Colonoscopy Do NOT take medicines that stop diarrhea - such as Imodium, Kaopectate, or Pepto Bismol. Do NOT take fiber supplements - such as Metamucil, Citrucel, or Perdiem. Do NOT take products that contain iron - such as multi-vitamins (the label lists what is in the products). Three (3) Days Before Your Colonoscopy Do NOT eat high-fiber foods - such as popcorn, beans, seeds (flax, sunflower, quinoa), multigrain bread, nuts, salad/vegetables, or fresh and dried fruit. 1 Bowel Preparation Instructions for: Miralax-Gatorade Preparations One (1) Day Before Your Colonoscopy Only drink clear liquids the ENTIRE DAY before your colonoscopy. Do NOT eat any solid foods. Drink at least 8 ounces of clear liquids every hour after waking up. The clear liquids you can drink include: Clear Liquid (NO RED LIQUIDS) DO NOT DRINK Gatorade, Pedialyte or Powerade Clear broth or bouillon Coffee or tea (no milk or non-dairy creamer) Carbonated and non-carbonated soft drinks Anirudh-Aid or other fruit flavored drinks Strained fruit juices (no pulp) Jell-O, popsicles, hard candy Water Alcohol Milk or non-dairy creamers Noodles or vegetables in soup Juice with pulp Liquid you cannot see through Do not use tobacco/vaping products Mix 1/2 of Miralax bottle (119 grams) in each 32 ounces of Gatorade bottle until dissolved. Keep cool in the refrigerator. DO NOT ADD ICE. The bowel preparation solution will be consumed in two parts. Part 1 5:00 PM - Evening before your colonoscopy Take 4 Dulcolax tablets. 6 PM - Evening before your colonoscopy Drink 32 oz. of the mixed solution. Drink an 8 oz. glass of bowel preparation every 15 minutes for a total of 4 glasses. Fifteen (15) minutes later, drink an 8 oz. glass of of clear liquids every 15 minutes for a total of 2 glasses. You may continue to drink clear liquids till midnight. Part 2 On the day of your colonoscopy you may drink clear liquids up to (three) 3 hours prior to procedure. 4 1/2 hours before your colonoscopy Take another 32 oz. bottle of mixed solution. Drink an 8 oz. glass of bowel prep every 15 minutes for a total of 4 glasses. Fifteen (15) minutes later, drink an 8 oz. glass of clear liquids every 15 minutes for a total of 2glasses. You may continue to drink clear liquids up to (three) 3 hours before your exam. 2 02/2019 Bowel Preparation Instructions for: Riya IF YOU DO NOT FOLLOW THESE DIRECTIONS, YOUR COLONOSCOPY WILL BE CANCELLED. Fajardo Instructions: Your bowel must be empty so that your doctor can clearly view your colon. Follow all of the instructions in this handout EXACTLY as they are written. Do NOT eat any solid food the ENTIRE day before your colonoscopy. PURCHASE BOWEL PREPARATION AT YOUR LOCAL PHARMACY (t least 2 weeks before your procedure) Designated Inspecting Engineer on the Day of your Exam A responsible person MUST be present with you at Check In prior to your colonoscopy and REMAIN in the endoscopy area until you are discharged. You are NOT ALLOWED to drive, take a taxi or bus, or leave the Endoscopy Center ALONE. If you do not have a responsible auto carrier driver (family member or friend) with you to take you home, your exam cannot be done with sedation and will be cancelled. Arrive one hour early for your procedure. Please bring a list of all of your current medications, including any Over-the Counter medications with you. Medications If you take insulin, diabetic medications or blood thinners such as Coumadin (warfarin), Plavix (clopidogrel), Ticlid (ticlopidine hydrochloride), Agrylin (anagrelide), Xarelto (Rivaroxaban), Pradaxa(Dabigatran), Eliquis (Apixaban), and Effient (Prasugrel). You MUST call the doctors who orders those medicines for instructions on altering the dosage before your colonoscopy. All other medications should be taken the day of the exam with a sip of water including ASPIRIN. Five (5) Days Before Your Colonoscopy Do NOT take medicines that stop diarrhea - such as Imodium, Kaopectate, or Pepto Bismol. Do NOT take fiber supplements - such as Metamucil, Citrucel, or Perdiem. Do NOT take products that contain iron - such as multi-vitamins (the label lists what is in the products). 1 01/2021 Bowel Preparation Instructions for: SuTab Three (3) Days Before Your Colonoscopy Do NOT eat high-fiber foods - such as popcorn, beans, seeds (flax, sunflower, quinoa), multigrain bread, nuts, salad/vegetables, or fresh and dried fruit. One (1) Day Before Your Colonoscopy Only drink clear liquids the ENTIRE DAY before your colonoscopy. Do NOT eat any solid foods. Drink at least 8 ounces of clear liquids every hour after waking up. Clear Liquid (NO RED LIQUIDS) DO NOT DRINK Gatorade, Pedialyte or Powerade Clear broth or bouillon Coffee or tea (no milk or non-dairy creamer) Carbonated and non-carbonated soft drinks Anirudh-Aid or other fruit flavored drinks Strained fruit juices (no pulp) Jell-O, popsicles, hard candy Water Alcohol Milk or non-dairy creamers Noodles or vegetables in soup Juice with pulp Liquid you cannot see through Do not use tobacco/vaping products The Bowel preparation tablets will be consumed in two separate parts. Do NOT add ice, sugar or flavorings to the solution. Part 1 At 6:00 PM - Evening before your colonoscopy (Dose 1) (12 tablets) Step 1 - Fill the provided container for 16 ounces of water (up to the fill line). Swallow each of the 12 tablets with a sip of water and drink the entire amount of water over 15 to 20 minutes. Step 2 - Approximately 1 hour after the last tablet is ingested, fill the provided container with 16 ounces of water (up to the fill line), and drink the entire amount over 30 minutes. Step 3 - Approximately 30 minutes after finishing the second container of water, fill the provided container with 16 ounces of water (up to fill line), and drink the entire amount over 30 minutes. Part 2 The morning of colonoscopy (5 to 8 hours prior to the colonoscopy and no sooner than 4 hours from starting Dose 1), open the second bottle of 12 tablets. Repeat STEP 1 to STEP 3 from part 1. You may continue to drink clear liquids until 3 hours before your colonoscopy. 2 01/2021 Bowel Preparation Instructions for: Miralax-Gatorade Preparations IF YOU DO NOT FOLLOW THESE DIRECTIONS, YOUR COLONOSCOPY WILL BE CANCELLED. Fajardo Instructions: Your bowel must be empty so that your doctor can clearly view your colon. Follow all of the instructions in this handout EXACTLY as they are written. Do NOT eat any solid food the ENTIRE day before your colonoscopy. Buy your bowel preparation at least 5 days before your colonoscopy. Four (4) Dulcolax laxative tablets containing 5mg of bisacodyl each (NOT Dulcolax stool softener) One (1) 8.3oz. bottle Miralax (238 grams) or generic equivalent 2 x 32oz. Bottles of Gatorade (NOT RED) Diabetic Patients: Use G2 (Gatorade 2) TRANSPORTATION on the Day of Your Exam A responsible adult MUST be present with you at Check In prior to your colonoscopy and REMAIN in the endoscopy area until you are discharged. You are NOT ALLOWED to drive, take a taxi or bus, or leave the Endoscopy Center ALONE. If you do not have a responsible auto carrier driver (family member or friend) withyou to take you home, your exam cannot be done with sedation and will be cancelled. Please bring a list of all of your current medications, including any Ycxq-tir-Tdtkbji medications with you. Medications If you take insulin, diabetic medications or blood thinners such as Coumadin (warfarin), Plavix (clopidogrel), Ticlid (ticlopidine hydrochloride), Agrylin (anagrelide), Xarelto (Rivaroxaban), Pradaxa(Dabigatran), Eliquis (Apixaban), and Effient (Prasugrel). You MUST call the doctors who orders those medicines for instructions on altering the dosage before your colonoscopy. All other medications should be taken the day of the exam with a sip of water including ASPIRIN. Five (5) Days Before Your Colonoscopy Do NOT take medicines that stop diarrhea - such as Imodium, Kaopectate, or Pepto Bismol. Do NOT take fiber supplements - such as Metamucil, Citrucel, or Perdiem. Do NOT take products that contain iron - such as multi-vitamins (the label lists what is in the products). Three (3) Days Before Your Colonoscopy Do NOT eat high-fiber foods - such as popcorn, beans, seeds (flax, sunflower, quinoa), multigrain bread, nuts, salad/vegetables, or fresh and dried fruit. 1 Bowel Preparation Instructions for: Miralax-Gatorade Preparations One (1) Day Before Your Colonoscopy Only drink clear liquids the ENTIRE DAY before your colonoscopy. Do NOT eat any solid foods. Drink at least 8 ounces of clear liquids every hour after waking up. The clear liquids you can drink include: Clear Liquid (NO RED LIQUIDS) DO NOT DRINK Gatorade, Pedialyte or Powerade Clear broth or bouillon Coffee or tea (no milk or non-dairy creamer) Carbonated and non-carbonated soft drinks Anirudh-Aid or other fruit flavored drinks Strained fruit juices (no pulp) Jell-O, popsicles, hard candy Water Alcohol Milk or non-dairy creamers Noodles or vegetables in soup Juice with pulp Liquid you cannot see through Do not use tobacco/vaping products Mix 1/2 of Miralax bottle (119 grams) in each 32 ounces of Gatorade bottle until dissolved. Keep cool in the refrigerator. DO NOT ADD ICE. The bowel preparation solution will be consumed in two parts. Part 1 5:00 PM - Evening before your colonoscopy Take 4 Dulcolax tablets. 6 PM - Evening before your colonoscopy Drink 32 oz. of the mixed solution. Drink an 8 oz. glass of bowel preparation every 15 minutes for a total of 4 glasses. Fifteen (15) minutes later, drink an 8 oz. glass of of clear liquids every 15 minutes for a total of 2 glasses. You may continue to drink clear liquids till midnight. Part 2 On the day of your colonoscopy you may drink clear liquids up to (three) 3 hours prior to procedure. 4 1/2 hours before your colonoscopy Take another 32 oz. bottle of mixed solution. Drink an 8 oz. glass of bowel prep every 15 minutes for a total of 4 glasses. Fifteen (15) minutes later, drink an 8 oz. glass of clear liquids every 15 minutes for a total of 2glasses. You may continue to drink clear liquids up to (three) 3 hours before your exam. 2 02/2019 documented in this encounterHolmes County [facility]03-17-2023 History of Present illness Narrative* Rafita Lea MD - 06/11/2022 2:45 PM EDT VIRTUAL VISIT NEW PATIENT NAME: Haley Glez [facility] NO: [id number] DATE: 06/11/2022 REASON FOR VISIT Haley Glez [id number] has requested a video telemedicine initial consultation at the request of Dr. Ignacio Aguilar and Dr. Alesha Matos for hypoalbuminemia, anasarca, weight loss, and elevated fecal calprotectin, as well as lack of successful colonoscopy in the past for further evaluation.Haley Glez verbalized informed consent to proceed with the video telemedicine initial consultation. Haley Glez was informed that the details of this video visit would be recorded as part of their electronic medical record. My recommendations will be conveyed to the consulting provider by way of shared electronic medical record, fax, or U.S. Mail. Patient location at time of call: Home Additional encounter participants and relationship: Sister I have communicated my name and active licensure. The patient's identity and physical location wereverified at the time of this visit. Either the patient or their legal sales and merchandising representative has been informed of the risks and benefits of -- and alternatives to -- treatment through a remote evaluation andconsents to proceed with the evaluation remotely. PRESENTING COMPLAINT -Hx of elevated liver enzymes, anasarca, weight loss, poor nutritional status -generalized weakness, fatigue, unable to do chores around the house, essentially bed bound -US of liver normal per 's/Dr. Shawna note -Had iron infusions in early May 2022 -Feels exhausted -Established care with functional medicine physician with the following test results per sister: -FOBT positive -Fecal calp >1000 Constipated, full of stool in last colonoscopy Hospitalized on 02/2022 -seen for anemia, hypoalbuminemia and anasarca -viral hepatitis studies were unremarkable -Colonscopies have been attempted in the past with poor prep, was told she has trouble with malabsorption Hx of SIBO (bloating and constipation) Rifaximin has not helped Cologuard in 10/01/2018 was Negative Uses walker Maternal grandmother (70 yrs old) of CRC Father had benign polyps IBD HISTORY TEMPLATE Diagnosis None Current Medications None Prior Complications and Extraintestinal Manifestations Clostridium difficile: no Thrombosis: no Ocular (Uveitis, Episcleritis): no, has had blurry vision, blood vessels burst at times Dermatologic (Pyoderma gangrenosum, Erythema nodosum): no, back is irritated Arthropathy/Arthralgia: no Oral ulcers: not recently Primary Sclerosing Cholangitis: no Current Clinical Symptoms # of bowel movements daily: 1-2 # of liquid stools daily: no Consistency: soft, formed, hard formed balls Strains Bloody bowel movements: no Urgency: yes Abdominal pain: yes, from IBS, improves with BM Abdominal distention: yes Nausea/vomiting: occ.nausea after bm Weight loss over last 3 months: no 125 lbs stable wants to gain weight General well-being: very poor CURRENT MEDICATIONS Current Outpatient Medications Medication Sig Dispense Refill indapamide (LOZOL) 2.5 mg tablet Take 2.5 mg by mouth once daily. furosemide (LASIX) 20 mg tablet Take 20 mg by mouth once daily. levothyroxine (SYNTHROID) 50 mcg tablet Take 50 mcg by mouth once daily. 100 mcg 5 days a week. Other two days 50mcg. vitamin B complex (B COMPLEX 50 ORAL) Take 50 mg by mouth once daily. OTC PRODUCT Food enzymes 3x daily acetylcysteine (ACET-CYS) Take 1,000 mg by mouth once daily. cholecalciferol, vitamin D3, (D3-2000 ORAL) Take 2,000 mg by mouth once daily. melatonin 5 mg tablet Take 4 mg by mouth daily at bedtime. Lactobacillus acidophilus (PROBIOTIC) 10 billion cell cap Take 133 capsules by mouth daily at bedtime. Calcium-Magnesium 300-300 mg tab Take by mouth. Pt unsure of mg. progesterone 50 mg/mL injection 20 mg daily at bedtime. 20mg/0.1ml cream OTC PRODUCT Progesterone Cream 20ml 0.3ml once a day, Bi-estrogen (80/20) .625mg 0/2 ml twice a day0 No current facility-administered medications for this visit. Amoxicillin, Codeine, Flavoring Agent (Bulk), Lactose, and Peppermint Flavor Recent Labs: Component Latest Ref Rng & Units 06/03/2022 Transglutaminase Ab, IgA <20 Units 3 Transglutaminase IgA Qualitative Negative, Test not Indicated Negative Interpretation (Celiac Screen) No serological evidence of celiac disease, however, if celiac disease is clinically suspected and patient is not on gluten- free diet, histological diagnosis may be considered. HLA testing may help with risk assessment. Gliadin Ab, IgA <20 Units 4 Gliad Deamidated IgA Qual Negative, Test not Indicated Negative Iron 41 - 186 ug/dL 386 (H) TIBC 232 - 386 ug/dL 446 (H) Transferrin Saturation 15.0 - 57.0 % 86.5 (H) Lipase 16 - 61 U/L 117 (H) Amylase 30 - 104 U/L 146 (H) Ferritin 14.7 - 205.1 ng/mL 1,183.0 (H) Vitamin B12 232 - 1,245 pg/mL 1,430 (H) CRP <0.9 mg/dL <0.3 TSH 0.270 - 4.200 mIU/L 5.930 (H) Free T3 2.3 - 4.1 pg/mL 1.8 (L) Hepatic Function Panel: Protein, Total (g/dL) Date Value 06/03/2022 4.5 (L) PAST MEDICAL HISTORY PAST MEDICAL HISTORY Diagnosis Date Anxiety state, unspecified Depressive disorder, not elsewhere classified IBS (irritable bowel syndrome) Multiple chemical sensitivity syndrome Small intestinal bacterial overgrowth (SIBO) PAST SURGICAL HISTORY PAST SURGICAL HISTORY Procedure Laterality Date TOOTH EXTRACTION FAMILY HISTORY FAMILY HISTORY Problem Relation Age of Onset Osteoporosis Mother Heart Mother afib GI Father IBS Margot Disease Sister other (environmental sensitivities [Other]) Sister both sisters SOCIAL HISTORY Social History Tobacco Use Smoking status: Never Smokeless tobacco: Never Substance Use Topics Alcohol use: No Drug use: No ROS EyesNegative for vision changes, diplopia or epiphora. Ears, Mouth, nose, throat:No problems Cardiovascular: No Problems Respiratory: Negative for cough, wheezing and shortness of breath Gastrointestinal : No problems Genitourinary: frequent urination due to diuretics Musuloskeletal: has tremors Integumentary: no rashes, lesions, or jaundice Neurological: No history of neurologic problems Endocrine: Negative for cold or heat intolerance, + polyuria, polydipsia and goiter. Psychiatric: Cooperative and agreeable, Obsessive Compulsive Disorder, Depression Allergic/ Immunologic: Negative All others negative PHYSICAL EXAMINATION General: alert and appropriate, in no distress and well-hydrated, well nourished, Psych: Appropriate mood and interaction Skin: no rash noted, Head: normocephalic, no abnormality or lesion noted, Eyes: visual acuity is grossly normal, no injection,, and EOMI, Ears: external ears normal without erythema or edema, Nose: external nose normal without rhinorrhea, Oropharynx: moist mucus membranes, no tonsillar hypertrophy/exudate, uvula midline and pharynx non-erythematous, lips, teeth and gums are without obvious lesion, Neck: full ROM, no cervical LNs noted, Respiratory: breathing non-labored, and no grunting/flaring/retractions, Chest: equal chest rise with normal respiratory effort, Abdomen: flat appearing. Visible protrusions or hernias: No Incisions/scars: None Areas of pain/tenderness: Denies Neuro: Patient seen sitting with normal appearing strength and coordination. No focal motor deficits. Assessment IMPRESSION 57 y o female with PMH including CKD-2, nephrotic syndrome, hypothyroidism, SIBO, IBS, CLIFFORD, OCD anddepression who presents virtually for further assessment of a positive FOBT and elevated fecal calp. Last CRC screening was done by Eileen in 10/01/2018 which was Negative. GI testing: Abdominal US on 12/29/21 showed normal liver. No ascites noted. CT abdomen on 03/18/22 unremarkable. 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 Functional medicineprovider noted a +FOBT and fecal calp >1000. She has had multiple attampts in getting a colonsocpy done, however, unsuccessful due to poor prep. Mrs Glez and her sister report concern of her recent GI testing results. She has been getting ironinfusions twice this year. Will plan to get a colonoscopy/EGD to evaluate if there is any disease activity. Due to her constipation, I recommend a bowel regimen of Miralax daily 1 capful, titrate as needed. Do a two day clear liquids prior to colonoscopy. She has a fluid restriction of 7 cups of water daily for the anasarca, will order Sutab bowel cleanse. We are ok for the prep to be fair since we are checking for inflammation. Further recommendations will be made after the colonoscopy. Instructions for Colonoscopy: -Minimize roughage in diet up to colonoscopy date -Up to 2 days prior to colonoscopy-Miralax daily 1 capful, titrate as needed to get formed and softbowel movements - 2 days prior to colonoscopy-Do the Miralax/Gatorade prep (diet is clear liquid all day) -The day before colonoscopy: Do the Sutab prep (diet is clear liquid all day) PLAN -Schedule colonoscopy/EGD small bowel biopsy with advaced staining and random colon biopsy including the TI -Colonoscopy instructions as above -F/U with Aruna Del Cid APRN in a week after the colonoscopy -F/U with Dr. Lea in 4 weeks Constipation management: -We would recommend kiwi-fruit (2) daily, or prune juice or prunes to help with bowel movements -We would also recommend cascara tea (not cascara sagrada) or smooth move tea -Eliminate all carbonated beverages and artificial sugars -no carbonated beverages -We would recommend that after eating, light activity - 2-3 times per week for 30-45 minutes. -We would also recommend peppermint oil, IBgard Gerard Novoa APRN.[employer] June 11, 2022 03:09 PM I spent 45 minutes in the virtual visit, with more than 50% of the total [id number] time of the visit in counseling / coordination of care. I have confirmed and edited as necessary, the PFSH and ROS obtained by others. I will communicate my recommendations and prescriptions to the patient's primary care provider. Unrelated to E/M, telemedicine, or virtual visit service provided within previous 7 days. No E/M service or procedure anticipated within next 24 hours. Rafita Lea MD June 11, 2022 12:08 PM documented in this encounterHol[facility] History of Present illness Narrative* Jenna Trevino MD - 06/07/2022 2:00 PM EDT National Consultation Service [facility] Mail Code G10 [address] [id number] This is a 57 year old female, from [address] [place] [address], self referred for evaluation of multiple problems as noted below. The patient's personal physician is Jossie De aL Rosa MD MD. The reasons for the appointment include: Patient presents with: Multiple Concerns: NCS INTAKE VIA ZOOM HISTORY OF PRESENT ILLNESS: 1) This video virtual visit was conducted with HIPAA-approved media with [facility] ZOOM. Patient consented to this format.I have communicated my name and active licensure. The patient's identity and physical location were verified at the time of this visit. Either the patient or their legal r epresentative has been informed of the risks and benefits of -- and alternatives to -- treatment through a remote evaluation and consents to proceed with the evaluation remotely. EHR Session ID: [id number] Meeting Number: [id number] 2) At the start of my visit today, I confirmed with the patient the 3 main reasons they are here jose evaluated at the national consult service (NCS). These were obtained from the initial NCS questionnaire as noted above. I also discussed how we came about getting the appropriate consultants that the patient needed based upon the initial NCS questionnaire but that sometimes we may need to add onadditional consultations after seeing the patient [id number]. 3) PROBLEM #1 : GASTRO (A) ONSET DATE: (B) DESCRIPTION: saw a preventive medicine provider in 2010 for what she describes as she treated me with digestive enzymes because I couldn't digest my food. I was diagnosed with leaky gut syndrome, acid reflux. She was then told she was underweight and still remains underweight though the edema in her legs misleads her weight. During hospitalization 1 year ago, she was told she had low protein, underweight. Attributed her edema to not eating enough protein. Saw GI (Dr Lawrence) in [place] who she stated diagnosed her with protein losing enteropathy (I do not have any of those records for my review and I have asked them to obtain them for me). She could not complete a colonoscopy due to poor prep. She denies having diarrhea then or now. Mostly constipation issues. She has seen inspector optical instrument and is eating a clean diet and forcing my self to eat. Sister notes sheeats at least 130 grams of protein per day but still told her protein is los. Her most recent serum protein is 4.5. Unfortunately she does not recall what was the cause of elevated LFT - I do not have any recent LFTfor my review at this time. I cannot validate her diagnosis of SBO. Does have poor appetite , abdominal bloating with nausea. No melena, hematochezia, dysphagia. (1) Patient describes symptoms as: Elevated LFTs, Hypoalbuminemia, Small intestinal bacterial overgrowth, Protein losing enteropathy (2) Frequency of symptoms: (3) Symptoms WORSE with: (4) Symptoms BETTER with: (C) MODALITIES TRIED: (D) CONSULTANTS /WORK UP SEEN FOR THIS ISSUES PRIOR TO COMING TO [facility]: (E) WHAT DIAGNOSIS HAVE YOUR BEEN TOLD THIS IS LIKELY BE OR WHAT ARE YOU MOST CONCERN ABOUT ?: PATIENT SAW DR IGNACIO AGUILAR/[facility] RHEUMATOLOGY ON 06/03/22 INDEPENDENT OF NCS WITH REFERRALS MADE TO GASTROENTEROLOGY AND HEMATOLOGY AT THAT TIME. 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 Patient lives in [place], [place] and she is accompanied by three family members today. Patient's overall presentation is perplexing. She appears to have a protein losing enteropathy, as her protein intake is good, she has no significant proteinuria or significant renal disease nor doesshe have know cirrhosis (ultrasound of the liver was apparently normal) or heart failure. She has ev idence for both low albumin (~2.0) as well as serum immunoglobulins. It does seem unusual that she has not been experiencing diarrhea or steatorrhea, but instead endorses constipation. I would typically expect a protein losing enteropathy to be characterized by diarrhea. If she has dysmotility thiscould explain her constipation. The differential for protein losing enteropathy is extensive, including but not limited to IBD, Celiac disease, gastric malignancy, retroperitoneal fibrosis, pancreatitis & EPI, lymphatic obstruction including that caused by infiltrative disorders, constrictive pericarditis, amyloidosis, SIBO, infectious disease, and rarely rheumatic diseases. I have low concern for systemic rheumatic disease. Furthermore, patient has had a negative SAYRA and unremarkable SAYRA review of systems, save for the history of SIBO, which can be seen in systemic sclerosis; however, she does not have significant skin thickening and has no history of raynaud's phenomenon. Her inflammatory markers reveal normal CRP and ESR that is only minimally elevated (upper limit of normal adjusted for age and gender is 38) and can be explained by iron deficiency. Regarding her elevated CK, is is minimally elevated in the high 200s (albeit higher than one would expect given her low muscle mass), and her weakness seems more generalized in the setting of massive peripheral edema in the legs. For completeness, a myositis antibody panel and aldolase have been ordered. Patient does have a low serum free light chain ratio and normocytic anemia (which appears to be dueto iron deficiency). Given low kappa/lambda ratio, will refer to hematology for plasma cell dyscrasia work-up and consideration of bone marrow biopsy. Ultimately, I believe patient needs to see gastroenterology, as concern is for a protein losing enteropathy. Prior colonoscopies have been unsuccessful due to incomplete prep, per patient report. Shealso likely will need an endoscopy. If not already done, would also consider transvaginal ultrasound to rule-out pelvic malignancy. Several tumor markers were ordered and are in process. A consult to gastroenterology has been placed. Regarding her significant hypogammaglobulinemia, this seems to be coming from protein losing enteropathy. She is at risk for serious infections. Primary care provider might consider referral to immunology for replacement with IVIG. Office Visit on 06/03/22 PROT ELECT SERUM WITH CHANO AND INTERP CERULOPLASMIN BLD ALPHA [address] LIPASE BLD AMYLASE BLD FECAL LACTOFERRIN/LEUKOCYTES POLYMYOSITIS AND DERMATOMYOSITIS PANEL CK CREATINE KINASE ALDOLASE BLD SAYRA BY IFA WITH REFLEX ANTI WILY ID URINALYSIS, WITH MICROSCOPIC PROTEIN CREATININE RATIO IRON + TIBC FERRITIN BLD VITAMIN B12 BLOOD FOLATE SERUM CELIAC SCREEN WITH REFLEX HEP REMOTE PANEL BL BLOOD TB SCREEN HIV 1 2 COMBO(AG/AB),WITH REFLEX TO DIFFERENTIATION MYOGLOBIN RANDOM UR CEA BLD CA 125 BLD CA 19-9 BLD NT PRO BNP B2 MICROGLOBULIN B SED RATE WESTERGREN C-REACTIVE PROTEIN (CRP) AMMONIA BLD KAPPA/VIVEROS,FREE,SER C3 COMPLEMENT BLD C4 COMPLEMENT BLD PROTEIN ELECT RND UR W/INTERP TSH BLD THYROID PEROXIDASE ANTIBODY BLOOD THYROGLOBULIN AB T3 FREE BLD VITAMIN B1 (THIAMINE), WHOLE BLOOD VITAMIN B3/NIACIN, PLASMA VITAMIN K LD LACTATE DEHYDRO IGG SUBCLASS 4 ONLY CONSULT TO HEMATOLOGY/ONCOLOGY CONSULT TO GASTROENTEROLOGY No follow-ups on file. I spent a total of 180 minutes on the date of the service which included preparing to see the patient, [id number] patient care, completing clinical documentation, obtaining and/or reviewing separately obtained history, performing a medically appropriate examination, counseling and educating the pa tient/family/caregiver, and ordering medications, tests, or procedures. Ignacio Aguilar D.O. Associate Staff Rheumatic Disease [address] [place] [address] You were seen in the rheumatology clinic for elevated CK and anasarca - I feel a systemic rheumatic disease, like idiopathic inflammatory myopathy, to be unlikely - Lack of associated dermatomyositis rashes - Lack of proximal upper extremity weakness - Previously checked normal inflammatory markers - You have seen several outside providers without a unifying diagnosis for your generalized swelling - Apparently no significant protein in the urine (not nephrotic syndrome) - Apparently normal liver function (no cirrhosis) - Apparently no heart failure (normal echo) PLAN: Check labs today Referral to hematology given anemia and low serum free light chains - evaluate for plasma cell dyscrasia Referral to gastroenterology I will contact you via [employer] Systemshart to discuss labs and next steps (F) WHAT DO YOU HOPE TO HAVE OUR CONSULTANTS HERE AT [facility] ADDRESS FOR THIS ISSUE/WHAT EXPECTATIONS DO YOU HAVE WITH THIS EVALUATION ?: ALREADY HAS UPCOMING APPOINTMENT WITH [facility]/GASTROENTEROLOGY DR ALESHA MATOS ON 06/10/2022 4) PROBLEM #2: ONCOLOGY (A) ONSET DATE: (B) DESCRIPTION: first told of iron deficiency 1 year ago during one of her hospitalization (I do not have those hospital records for review). Has had 2 IV iron infusion since 1 year ago; most recent06/01/2022. She is amenorrhea?postmenapause. No pica. (1) Patient describes symptoms as: Iron deficiency anemia,unspecified iron deficiency anemia type,Elevated serum immunoglobulin free light chains (2) Frequency of symptoms: (3) Symptoms WORSE with: (4) Symptoms BETTER with: (C) MODALITIES TRIED: (D) CONSULTANTS /WORK UP SEEN FOR THIS ISSUES PRIOR TO COMING TO [facility]: (E) WHAT DIAGNOSIS HAVE YOUR BEEN TOLD THIS IS LIKELY BE OR WHAT ARE YOU MOST CONCERN ABOUT ? F) WHAT DO YOU HOPE TO HAVE OUR CONSULTANTS HERE AT [facility] ADDRESS FOR THIS ISSUE/WHAT EXPECTATIONS DO YOU HAVE WITH THIS EVALUATION ? 5) PROBLEMS #3: INTERNAL MEDICINE (A) ONSET DATE: (B) DESCRIPTION: Edema started about 1 year ago. She describes them in her legs and into her sacralarea. Edema is symmetrical per patient since I could not do an exam via Zoom. Legs feels weak and heavy but she denies pain. No orthopnea or PND. She admits to snoring but no formal work up for CONNOR. Has been treated with diuretics at home; indapamide now seems most helpful. She was told by her providers at home that her kidneys are fine and I am not losing protein there. She also has elevated CK with the onset use of lasix and still endorses leg weakness. No upper extremity weakness. Now uses walker at home. Her TSH from Dr Aguilar work up: TSH 5.930 with free T3 1.8. normal TPO. No total T4 ordered. I do not have any previous TSH for my review. (1) Patient describes symptoms as: Edema is up to waist and abdomen and cannot move around, Thyroidnot functioning well. (2) Frequency of symptoms: (3) Symptoms WORSE with: (4) Symptoms BETTER with: (C) MODALITIES TRIED: (D) CONSULTANTS /WORK UP SEEN FOR THIS ISSUES PRIOR TO COMING TO [facility]: (E) WHAT DIAGNOSIS HAVE YOUR BEEN TOLD THIS IS LIKELY BE OR WHAT ARE YOU MOST CONCERN ABOUT ? F) WHAT DO YOU HOPE TO HAVE OUR CONSULTANTS HERE AT [facility] ADDRESS FOR THIS ISSUE/WHAT EXPECTATIONS DO YOU HAVE WITH THIS EVALUATION ? 6) CHRONIC MEDICAL CONDITIONS: THIS LIST IS OBTAINED FROM PATIENT'S MOST RECENT OFFICE VISIT WITH PROVIDER: 06/01/2022 Problems Active Problems Problems Problem Classification Problem Date Documented Date Episodic/Chronic Allergic reactions (20 sources) Contact dermatitis; Translations: [Unspecified contact dermatitis, unspecified cause] Episodic Blindness and vision defects (1 source) Other visual disturbances; Translations: [Other visual disturbances] Onset: 05-25-2022 Episodic Chronic kidney disease (2 sources) Chronic kidney disease, stage 2 (mild); Translations: [Chronic kidney disease, stage 2 (mild)] Onset: 05-21-2022 Chronic Coagulation and hemorrhagic disorders (20 sources) Platelet count below reference range; Translations: [Thrombocytopenia, unspecified] Chronic Deficiency and other anemia (7 sources) Anemia; Translations: [Anemia, unspecified] 03-18-2022 Episodic Deficiency and other anemia (15 sources) Anemia, unspecified; Translations: [Anemia, unspecified] Onset: 04-06-2022 Episodic Deficiency and other anemia (2 sources) Iron deficiency anemia; Translations: [Iron deficiency anemia, unspecified] 05-25-2022 Episodic Deficiency and other anemia (3 sources) Iron deficiency anemia, unspecified; Translations: [Iron deficiency anemia, unspecified] Onset: 05-25-2022 05-25-2022 Episodic Genitourinary symptoms and ill-defined conditions (3 sources) Proteinuria; Translations: [Proteinuria, unspecified] Onset: 04-06-2022 Episodic Immunizations and screening for infectious disease (4 sources) Other specified abnormal immunological findings in serum; Translations: [Elevated serumimmunoglobulin free light chains] 05-25-2022 Episodic Malaise and fatigue (20 sources) Asthenia; Translations: [Other malaise] Onset: 10-30-2021 Episodic Nutritional deficiencies (20 sources) Deficiency of macronutrients; Translations: [Unspecified severe protein-calorie malnutrition] Onset: 03-16-2022 Chronic Osteoporosis (20 sources) Osteoporosis; Translations: [Age-related osteoporosis without current pathological fracture] Onset: 01-13-2022 Chronic Other aftercare (20 sources) Polypharmacy ; Translations: [Other chcf (current) drug therapy] 05-28-2021 Episodic Other aftercare (7 sources) Other chcf (current) drug therapy; Translations: [Long-term (current) use of othermedications] Episodic Other connective tissue disease (19 sources) Myositis; Translations: [Myositis, unspecified] 03-11-2022 Episodic Other connective tissue disease (9 sources) Myositis, unspecified; Translations: [Myalgia and myositis, unspecified] Episodic Other diseases of veins and lymphatics (1 source) Lymphedema, not elsewhere classified; Translations: [Lymphedema, not elsewhere classified] Onset: 05-28-2022 Chronic Other gastrointestinal disorders (1 source) Intestinal malabsorption, unspecified; Translations: [Intestinal malabsorption, unspecified] Onset: 11-27-2021 Chronic Other liver diseases (20 sources) Elevated liver enzymes level; Translations: [Abnormal levels of other serum enzymes] 05-18-2021 Episodic Other nervous system disorders (9 sources) Difficulty walking; Translations: [Difficulty in walking, not elsewhere classified] 03-21-2022 Chronic Other nervous system disorders (4 sources) Difficulty in walking, not elsewhere classified; Translations: [Difficulty in walking] Onset: 04-06-2022 Chronic Other nutritional; endocrine; and metabolic disorders (9 sources) Hypoalbuminemia; Translations: [Other disorders of plasma-protein metabolism, not elsewhere classified] 03-15-2022 Chronic Other nutritional; endocrine; and metabolic disorders (11 sources) Other disorders of plasma-protein metabolism, not elsewhere classified; Translations: [Other disorders of plasma protein metabolism] Onset: 04-06-2022 Chronic Other screening for suspected conditions (not mental disorders or infectious disease) (7 sources) Blood urea abnormal; Translations: [Abnormal finding of blood chemistry, unspecified] Onset: 04-06-2022 Episodic Residual codes; unclassified (20 sources) Immunization not carried out because of patient refusal; Translations: [COVID-19 vaccination declined] Episodic Residual codes; unclassified (20 sources) Peripheral edema; Translations: [Edema, unspecified] 06-08-2021 Episodic Residual codes; unclassified (9 sources) Bilateral lower limb edema; Translations: [Localized edema] 03-15-2022 Episodic Residual codes; unclassified (12 sources) Localized edema; Translations: [Edema] Onset: 06-30-2021 Episodic Residual codes; unclassified (7 sources) Edema, generalized; Translations: [Generalized edema] 03-21-2022 Episodic Residual codes; unclassified (2 sources) Generalized edema; Translations: [Edema] Onset: 04-06-2022 Episodic Thyroid disorders (20 sources) Hypothyroidism; Translations: [Hypothyroidism, unspecified] Onset: 10-21-2021 Chronic Past or Other Problems Problems Problem Classification Problem Date Documented Date Episodic/Chronic Fluid and electrolyte disorders (20 sources) Hyponatremia; Translations: [Hypo-osmolality and hyponatremia] Onset: 11-06-2021 Episodic Nutritional deficiencies (1 source) Iron deficiency; Translations: [Iron deficiency] Onset: 09-25-2021 Episodic Other connective tissue disease (1 source) Other specified soft tissue disorders; Translations: [Other specified soft tissue disorders] Onset: 03-01-2022 Episodic Other liver diseases (20 sources) Abnormal levels of other serum enzymes; Translations: [Other nonspecific abnormal serum enzyme levels] Onset: 06-30-2021 Episodic Other nutritional; endocrine; and metabolic disorders (1 source) Underweight; Translations: [R63.6 - Underweight] Onset: 08-26-2021 Episodic 7) SOCIAL HISTORY/MEDICATIONS: THIS LIST IS OBTAINED FROM PATIENT'S MOST RECENT OFFICE VISIT WITH PROVIDER: 06/01/2022 Medications Reconcile with Patient's Chart Current Medications Medications Medication Drug Class(es) Dates Sig (Normalized) Sig (Original) Acetylcysteine (4 sources) Antidote, Mucolytic, Antidote for Acetaminophen Overdose Start: 05-20-2022 Acetylcysteine (Bulk) Active EACH MC May 20, 2022 12:00am bumetanide 0.5 mg oral tablet (2 sources) Loop Diuretic Start: 03-20-2022 take 1 mg by mouth twice daily Bumetanide Active 1 MG PO TWICE DAILY 120 March 20, 2022 12:00am cholecalciferol 0.025 mg oral tablet (15 sources) Vitamin D Start: 03-20-2022 take 50 ug by mouth once daily Cholecalciferol (Vitamin D3) Active 50 MCG PO DAILY 60 March 20, 2022 12:00am Start: 12-17-2021 take 50 ug by mouth once daily Cholecalciferol (Vitamin D3) Active 50 MCG PO DAILY December 16, 2021 11:00pm Digestive Enzymes (9 sources) Start: 03-15-2022 take 1 tablet by mouth three times daily at mealtime Digestive Enzymes Active 1 TABLET PO 3 TIMES DAILY WITH MEALS March 15, 2022 12:00am furosemide 20 mg oral tablet (20 sources) Loop Diuretic Start: 05-10-2022 take 1 tablet by mouth once daily Furosemide (Lasix) 20 mg Tablet Active 20 MG PO DAILY May 10, 2022 12:00am Start: 05-20-2021 End: 09-07-2021 take 1 tablet by mouth once daily Furosemide (Lasix) 20 mg tablet Discontinued 20 MG PO DAILY May 20, 2021 12:00am September 07, 2021 1:12pm Lactobacillus Rhamnosus Gg (20 sources) Start: 07-16-2021 Lactobacillus Rhamnosus Gg (Culturelle Kids Probiotics) 5 billion cell powder in packet Active PO July 16, 2021 10:22am Start: 07-16-2021 Lactobacillus Rhamnosus Gg (Culturelle Kids Probiotics) 5 billion cell powder in packet Active 1 CELL PO DAILY July 15, 2021 11:00pm Start: 07-16-2021 Lactobacillus Rhamnosus Gg (Culturelle Kids Probiotics) 5 billion cell powder in packet Active PO July 15, 2021 11:00pm Start: 07-16-2021 Lactobacillus Rhamnosus Gg (Culturelle Kids Probiotics) 5 billion cell powder in packet Active PO July 16, 2021 12:00am levothyroxine sodium 0.05 mg oral tablet (20 sources) l-Thyroxine Start: 05-21-2022 Levothyroxine Active 50 MCG PO .2 daily M-F one S/Salvador 60 May 21, 2022 12:15pm and tuesday takes 100mg Start: 03-22-2022 End: 05-21-2022 take 100 mg by mouth once daily Levothyroxine Discontinued 50 MCG PO .daily, 2 on SundaysMarch 22, 2022 12:00am May 21, 2022 12:16pm and tuesday takes 100mg Start: 03-22-2022 Levothyroxine Active 50 MCG PO .daily, 2 on SundaysMarch 22, 2022 12:00am Start: 03-20-2022 End: 03-22-2022 Levothyroxine Discontinued 100 MCG PO Salvador@0600 0 March 20, 2022 12:00am March 22, 2022 11:54am Start: 03-20-2022 End: 03-22-2022 Levothyroxine Discontinued 25 MCG PO MoTuWeThFrSa@0600 0 March 20, 2022 12:00am March 22, 2022 11:54am Start: 03-15-2022 End: 03-22-2022 Levothyroxine Discontinued 25 MCG PO DIRECTED March 15, 2022 7:53pm March 22, 2022 11:54am TAKE 1/2 TAB DAILY AND TAKE 2 TABS ON SUNDAYS Start: 01-13-2022 End: 03-15-2022 Levothyroxine Discontinued 25 MCG PO .qd, 2 on SundaysJanuary 15, 2022 4:25pmDeceer 2021 7:53pm Start: 12-17-2021 End: 01-13-2022 Levothyroxine Discontinued 25 MCG PO .6 days December 17, 2021 1:18pm January 13, 2022 5:45pm Start: 08-19-2021 End: 12-17-2021 Levothyroxine Discontinued 50 MCG PO .6 days September 18, 2021 6:34am December 17, 2021 1:20pm Start: 07-16-2021 End: 07-19-2021 Levothyroxine Discontinued 50 MCG PO July 15, 2021 11:00pm July 19, 2021 4:12pm Start: 05-20-2021 End: 08-19-2021 take 75 ug by mouth once daily Levothyroxine Discontinued 75 MCG PO DAILY@0600 30 May 20, 2021 12:00am August 19, 2021 2:14pm melatonin 5 mg oral tablet (20 sources) Start: 07-16-2021 take 5 mg by mouth at bedtime Melatonin Active 5 MG PO BEDTIME 2021 11:00pm microencapsulated potassium chloride 20 meq extended release oral tablet (20 sources) Start: 03-20-2022 Potassium Chloride (Klor-Con M20) 20 mEq Tablet,Er Particles/Crystals Active 40 MEQ PO DAILY WITH MEALS 60 March 20, 2022 12:00am Start: 05-20-2021 End: 09-07-2021 take 20 mEq by mouth twice daily Potassium Chloride Discontinued 20 MEQ PO TWICE A DAY 60 May 20, 2021 12:00am September 07, 2021 1:11pm progestrone compound (20 sources) Start: 07-16-2021 progestrone compound Active TOPICAL July 16, 2021 10:24am Start: 07-16-2021 progestrone compound Active 1 APPLIC TOPICAL DAILY July 15, 2021 11:00pm Start: 07-16-2021 progestrone compound Active TOPICAL July 15, 2021 11:00pm Start: 07-16-2021 progestrone compound Active TOPICAL July 16, 2021 12:00am sodium chloride 1000 mg oral tablet (19 sources) Start: 05-20-2021 take 1 g by mouth twice daily Sodium Chloride Active 1 GM PO TWICE ADAY 60 May 20, 2021 12:00am Vitamin B Complex (B Complex-Vitamin B12) tablet (4 sources) Start: 05-20-2022 take 1 tablet by mouth once daily Vitamin B Complex (B Complex-Vitamin B12) tablet Active 1 TABLET PO DAILY May 20, 2022 12:00am Completed/Discontinued Medications Medications Medication Drug Class(es) Dates Sig (Normalized) Sig (Original) thyroid (skilled nursing) 15 mg oral tablet (20 sources) Start: 05-16-2021 End: 05-20-2021 Thyroid (Pork) ([place] Thyroid) 15 mg tablet Discontinued 22.5 MG PO MOWEFR May 16, 2021 12:00am May 20, 2021 11:12am Start: 05-16-2021 End: 05-20-2021 take 1 tablet by mouth once Thyroid (Pork) ([place] Thyroid) 15 mg tablet Discontinued 15 MG PO every Tuesday, , , Sat May 16, 2021 12:00am May 20, 2021 11:12am Show All Sections ALLERGIES: ALLERGIES Allergen Reactions Amoxicillin Other: See Comments Codeine Other: See Comments Flavoring Agent (Bu* Other: See Comments Lactose Other: See Comments Peppermint Flavor Other: See Comments The medications at the beginning of the encounter were reviewed: Current Outpatient Medications Medication Sig indapamide (LOZOL) 2.5 mg tablet Take 2.5 mg by mouth once daily. furosemide (LASIX) 20 mg tablet Take 20 mg by mouth once daily. levothyroxine (SYNTHROID) 50 mcg tablet Take 50 mcg by mouth once daily. 100 mcg 5 days a week. Other two days 50mcg. vitamin B complex (B COMPLEX 50 ORAL) Take 50 mg by mouth once daily. OTC PRODUCT Food enzymes 3x daily acetylcysteine (ACET-CYS) Take 1,000 mg by mouth once daily. cholecalciferol, vitamin D3, (D3-2000 ORAL) Take 2,000 mg by mouth once daily. melatonin 5 mg tablet Take 4 mg by mouth daily at bedtime. Lactobacillus acidophilus (PROBIOTIC) 10 billion cell cap Take 133 capsules by mouth daily at bedtime. Calcium-Magnesium 300-300 mg tab Take by mouth. Pt unsure of mg. progesterone 50 mg/mL injection 20 mg daily at bedtime. 20mg/0.1ml cream OTC PRODUCT Progesterone Cream 20ml 0.3ml once a day, Bi-estrogen (80/20) .625mg 0/2 ml twice a day No current facility-administered medications for this visit. PAST MEDICAL, SURGICAL, FAMILY AND SOCIAL HISTORY HISTORIES FAMILY HISTORY Problem Relation Age of Onset Osteoporosis Mother Heart Mother afib GI Father IBS Margot Disease Sister other (environmental sensitivities [Other]) Sister both sisters PAST MEDICAL HISTORY Diagnosis Date Anxiety state, unspecified Depressive disorder, not elsewhere classified IBS (irritable bowel syndrome) Multiple chemical sensitivity syndrome Small intestinal bacterial overgrowth (SIBO) PAST SURGICAL HISTORY Procedure Laterality Date TOOTH EXTRACTION Social History Tobacco Use Smoking status: Never Smokeless tobacco: Never Substance Use Topics Alcohol use: No Drug use: No VITAL SIGNS: There were no vitals taken for this visit. REVIEW OF SYSTEMS: PERTINENT REVIEW WITHIN HISTORY PRESENT ILLNESS PHYSICAL EXAM PERFORMED SPECIFIC FOR PRESENT ILLNESS AND HPI: PHYSICAL EXAM: RECORD REVIEW FROM ELECTRONIC MEDICAL RECORDS (Epic) AND/OR PAPER RECORDS PATIENT PROVIDED FOR THISVISIT: Previous records were reviewed and included: OUTSIDE HOSPITAL Laboratory studies (1) DATE : labs from Rheumatology (06/03/2022). Her last labs in epic from outside institution is 2012. I do not have records from [facility]. LAST PCP OFFICE VISIT: No PCP records PREVIOUS Imaging Other investigations IMPRESSIONS AND PLANS: Encounter Diagnosis ICD-10-CM 1. Edema, unspecified type R60.9 2. Elevated CK R74.8 3. Muscle weakness of lower extremity M62.81 4. Elevated TSH R79.89 5. Iron deficiency anemia, unspecified iron deficiency anemia type D50.9 6. Constipation, unspecified constipation type K59.00 7. Abdominal bloating R14.0 At the completion of today's visit pending further labs, diagnostic tests and referrals, I have made the following recommendations for this patient today. Patient will have a follow up visit with me at a future date to discuss final recommendations. (1) Haley Glez is here to address the following issues: In regards to the FIRST ISSUE of GASTRO , I will await GASTROENTEROLOGY disposition. She has already been referred through Rheumatology/Dr Aguilar. 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 She was also told she has SIBO (no records). At this point in time, she has symptoms of constipation, no GI bleeding, abdominal bloating with nausea. She was told she had leaky gut syndrome in 2010 from a preventive medicine provider (I do have those records). She told me she had recent abdominal ultrasound in [place] (I do not have records) but she doesnot recall the result. She listed elevated LFT though I do not have any recent CMP for my review.. (2) In regards to the SECOND ISSUE OF ONCOLOGY, I will await HEMATOLOGY disposition. This referral was placed by Rheumatology/Dr Aguilar. She is being sent for evaluation of iron deficiency anemia. So far, she does not have source of blood loss (amenorrhea, no GI bleed). She has had 2 IV iron infusions over the last 1 year; most recent was 06/01/22 so that her most recent iron studies reflect that. (3) In regards to the THIRD ISSUE of INTERNAL MEDICINE, the main issue here is her peripheral edema. So far, this is attributed to protein losing enteropathy but there is lack of medical records to know what is causing it. Will await Gastroenterology assessment. I will ask VASCULAR MEDICINE to evaluation her edema for underlying lymphedema/vascular causes as well. Not clear if her leg edema is causing some compressive physiology that may explain her mildly increased CK since she only has leg heaviness and not generalized weakness. Will refer to NEUROMUSCULAR. Does not appear she has had any cardiopulmonary work up for her edema though her BNP is 118 from 06/03/2022. She does admit to snoring so questionable right side HF/cor pulmonale needs to be considered this current work up inconclusive. Will need to get records on her LFT and abdominal ultrasound she had from [place]. I informed the patient today that we do not order any blood tests or diagnostic images/tests prior to the patient coming to [facility] for their visit. It will be up to the discretion of our sub-specialists to decide this with the patient. Jenna Trevino MD I spent 80 minutes in the visit, with more than 50% of the total [id number]-[id number] time of the visit in counseling / REVIEW OF MEDICAL RECORDS coordination of care. [facility] History of Present illness Narrative* Ignacio Aguilar, DO - 06/03/2022 6:28 PM EST Images from the original note were not included. Rheumatology CONSULTATION Date of Service: 06/03/2022 Patient: Haley Glez Medical Record: [id number] Primary Care Physician: Jossie De La Rosa MD Last Rheumatology visit: None at [facility] Referring Provider: Jossie De La Rosa MD Primary Care [address] [facility] [id number] Reason for visit: muscle weakness, elevated CK, swelling in legs & feet, elevated LFTs My final recommendations will be communicated back to the requesting provider by way of shared Medical record or letter to requesting physician via US mail. History of Present Illness Haley Glez is a 57 year old White female with PMHx of IBS, SIBO, left rotator cuff tendonitis, anxiety, OCD, depression, Margot's thyroiditis, and history of leukopenia (2011), who presents on 06/03/2022 for an in-person visit for evaluation of elevated CK, generalized muscle weakness, anasarca with swelling in the legs & feet, and elevated liver function tests. Patient lives in [place], [place] and she is accompanied by three family members today. At the time of the visit, we had only received on outside document, a note from her electric meter inspector, dated 05/12/2022. Patient apparently had been referred to nephrology for anasarca and to evaluate for nephrotic syndrome. She had been hospitalized in February 2022 and seen by hematology for anemia andnephrology for hypoalbuminemia and anasarca. Her albumin was low at 2.5 and Hgb 8.8 in February 2022. A 24 hour urine protein showed just 55 mg of protein and no M spike on UIFE. Patient had been trying to increase her protein intake and was on a fluid restricted diet. She continued to have significant edema. She was intolerant to Bumex as it caused dizziness and slurred speech. She was discharged on Lasix 20 mg daily. She saw GI for elevated liver function tests -- viral hepatitis studies wereunremarkable. Apparently a colonoscopy had been attempted (patient says on three occasions), with poor prep. She was told she had problems with malabsorption. An abdominal ultrasound on 12/29/2021 showed normal liver and no ascites. CT of the abdomen from 03/18/2022 was unremarkable. CK was elevatedat 700 but with elevated myoglobin at 86 (normal 25-58). Urine free light chains apparently showed a Bence Gallegos protein, but on repeat was negative when evaluated by hematology. On 05/10/2022, Hgb 9.8 with creatinine 0.96 (up from baseline a few months prior ~0.5), BUN 44, potassium 4.7 while on Lasix 20 mg daily. CRP and ESR may have been mildly elevated in the past. Patient complained of generalized weakness, fatigue, not being able to do her daily chores at home. Exam was notable for 4+ pitting edema in the legs, a resting tremor. Patient's elevated creatinine and BUN were explained by diuretic therapy. Some immunologic serologies were ordered given concern for myositis with elevated CK.Patient was encouraged to continue Lasix. She was also encouraged to follow-up with hematology regarding anemia. This visit, patient confirms the above history. She elaborates that her symptoms began about a yearago, when she went to the ED and was told her serum protein was low. She says the swelling is mostly in her legs, but she also has noticed some swelling along the left breast and left upper extremity. She has been increasing her protein intake - consuming 90 mg protein through her diet and an additional 45 g through supplemental protein shakes. She tells me no significant proteinuria has been identified in her urine. Regarding a possible protein losing enteropathy, she endorses a history of small intestinal bacterial overgrowth (SIBO) characterized by bloating and constipation; she denies diar emory or loose stools. She reports having tried rifaxamin without improvement. She denies a history of congestive heart failure and reports having had a normal echocardiogram. A BNP was checked on 03/15/2022 and was minimally elevated at 117.2 pg/mL (ref range 0-100). She has gained a lot of weight,due to fluid retention with third spacing, as she is severely hypoalbuminemic. She has also had negative testing for SAYRA by IFA (05/18/2022), ANCA (05/12/2022), normal serum complements (C3 & C4), normal CRP (<2.90) and slightly elevated ESR (33) on 05/12/22. CK was elevated at 283 (05/12/22). Iron studies have been consistent with iron deficiency, for which patient reports having had iron infusions. Ferritin 14 L, iron 34 L, iron saturation 8.1% L, TIBC 419 (05/20/22). Regarding her iron deficiency, she denies hematochezia, melena, gross hematuria, hemoptysis, or a family history of cancer. As mentioned above, she had a CT chest, abdomen, and pelvis on 03/18/2022 which was apparently negative. Regarding her elevated CK level, she relates generalized muscle weakness, which is most pronounced in the legs as opposed to the upper extremities. She is essentially bed-bound at this time. She is unable to perform activities of daily living without assistance. Her vitamin B12 has actually been very high, but she attributes this to having previously been taking a B complex vitamin. She has had an abnormally low serum kappa/lambda ratio of 0.13 (normal 0.26 - 1.65) on 05/20/2022. All of her serum immunoglobulins have been low (IgA 40, IgG 251, IgM 18) on 05/20/2022. Her TSH was elevated to 11.40 but with normal free T4 of 1.10 on 05/20/2022. She has a history of hypothyroidism and takes levothyroxine. She reports a past history of having taken [place] thyroid. Guwcq-6-ybplblisyad serum was normal at 212 mg/dL on 05/19/2022. Other labs from 05/20/2022 reveal CHANO with negative M spike. Low total protein at 4.9, and an abnormal kappa/lambda ratio of 0.13. Patient's sister is concerned that she might have an unusual form of multiple myeloma, presenting as lymphedema (she brought a copy of the paper to the visit today). Patient and her family want to see hematology for additional work-up, including bone marrow biopsy. Other labs, from 06/01/22 show CBC with WBC 6.4, Hgb 9.0 (MCV 94.2), Plt 170. CBC diff with anisocytosis, target cells. Cr 0.73, BUN 36, CO2, Na 142, K 4.0, CO2 31. AST 84, ALT 85, albumin 2.0. Normal FT4 and low FT3. Haley says she is a 'very sensitive person.' She used to take '22 supplements,' but is taking a lotless now. She denies history of vegan diet; she has a good appetite and reports a robust balanced diet. She endorses a strong family history of Margot's thyroiditis, but denies other autoimmune disease. 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 She reports being up-to-date with age-appropriate cancer screening and had a mammogram within the past few years, PAP one year ago. She says her grandmother from colon cancer. Haley denies fevers or chills. She does have some cold sweats at night. She is gaining 1 lb per day. She denies photosensitivity. She denies dry eye. She has dry mouth which she attributes to fluidrestriction. She denies oral or nasal ulcers. She denies malar rash. She does endorse a rash on herabdomen. She denies gross hematuria or frothy urine. She endorses a history of SIBO and bloating with constipation, as discussed above. She denies joint pain. She relates some chronic sinus issues. She endorses a dry cough, but denies hemoptysis. She denies raynaud's phenomenon, digital ulcerations. She does have some shortness of breath. She has some mild heartburn. Denies hematochezia or melena. She endorses imbalance and tremor. Pain Evaluation 11/14/2018 06/03/2022 06/03/2022 Pain Score 9 7 7 Location - Back-Upper (No Data) Location Comment - - upper back Description Aching;Sore Aching;Spasm;Stiffness;Tightness Aching;Stiffness Duration (Timeframe) - Months Years Frequency - Continuous Continuous Intervention - Relaxation;Distractions;Pillow support;Positioning - Over the last week, were you able to: 06/03/2022 Dress yourself UNABLE to do In/out of bed With MUCH difficulty Lift cup With MUCH difficulty Walk outdoors UNABLE to do Wash and dry body UNABLE to do Pick clothing from floor With MUCH difficulty Turn faucets on and off With SOME difficulty Get in and out of car With MUCH difficulty Walk 2 to 3 km UNABLE to do Recreational activities UNABLE to do Good night's sleep UNABLE to do Deal with anxiety With MUCH difficulty Deal with depression With MUCH difficulty Past Week Pain level 7 How Doing Overall 10 - Very Poorly Functional Status Score 8 Pain Level Score 7 PTGE Subscore 10 Weighed Score 8.33 (High Severity (HS)) Weighed Score % Change Incomplete% RAPID-3 Weighed Score 06/03/2022 RAPID 3 Weighed Score 8.33 (High Severity (HS)) Review of Systems Review of Systems Constitutional: Positive for recent unintentional weight change. Negative for fever. Weight gain, 1 pound per week Head: Positive for headaches. ENT: Negative for mouth sores. Eyes: Positive for pain and redness. Respiratory: Positive for cough and shortness of breath. Negative for coughing up blood and respiratory pain. Cardiovascular: Positive for peripheral edema. Negative for chest pain, digital ischemia and Raynaud's phenomenon. Gastrointestinal: Positive for abdominal pain and heartburn. Negative for bright red blood per rectum, diarrhea and melena. +constipation Urinary: Positive for dysuria. Negative for hematuria. Musculoskeletal: Positive for muscle weakness and myalgias. Neurological: Positive for numbness and headaches. Skin: Positive for rash. Psychiatric/Behavioral: Positive for anxiety, depression and sleep disturbance. The patient is nervous/anxious. Histories PAST MEDICAL HISTORY Diagnosis Date Anxiety state, unspecified Depressive disorder, not elsewhere classified IBS (irritable bowel syndrome) Multiple chemical sensitivity syndrome Small intestinal bacterial overgrowth (SIBO) PAST SURGICAL HISTORY Procedure Laterality Date TOOTH EXTRACTION FAMILY HISTORY Problem Relation Age of Onset Osteoporosis Mother Heart Mother afib GI Father IBS Margot Disease Sister other (environmental sensitivities [Other]) Sister both sisters Social History Tobacco Use Smoking status: Never Smokeless tobacco: Never Substance Use Topics Alcohol use: No Drug use: No Medications Current Outpatient Medications Medication Sig indapamide (LOZOL) 2.5 mg tablet Take 2.5 mg by mouth once daily. furosemide (LASIX) 20 mg tablet Take 20 mg by mouth once daily. levothyroxine (SYNTHROID) 50 mcg tablet Take 50 mcg by mouth once daily. 100 mcg 5 days a week. Other two days 50mcg. vitamin B complex (B COMPLEX 50 ORAL) Take 50 mg by mouth once daily. OTC PRODUCT Food enzymes 3x daily acetylcysteine (ACET-CYS) Take 1,000 mg by mouth once daily. cholecalciferol, vitamin D3, (D3-2000 ORAL) Take 2,000 mg by mouth once daily. melatonin 5 mg tablet Take 4 mg by mouth daily at bedtime. Lactobacillus acidophilus (PROBIOTIC) 10 billion cell cap Take 133 capsules by mouth daily at bedtime. Calcium-Magnesium 300-300 mg tab Take by mouth. Pt unsure of mg. progesterone 50 mg/mL injection 20 mg daily at bedtime. 20mg/0.1ml cream OTC PRODUCT Progesterone Cream 20ml 0.3ml once a day, Bi-estrogen (80/20) .625mg 0/2 ml twice a day Exam BP 136/58 Pulse (!) 56 Temp (!) 35.7 C (96.3 F) (Temporal) SpO2 98% General appearance: middle-aged female, alert, no distress, pleasant affect. Tired-appearing. In wheelchair. Accompanied by two siblings. Eyes: PERRL, no scleral icterus and erythema. No periorbital ecchymoses. No heliotrope rash on eyelids. ENT: moist oral mucosa, good dentition, no ulcers or lesions. Tongue is not enlarged. Resp: clear to auscultation bilaterally CV: regular rate and rhythm, 4+ pitting edema in the legs. There is also edema in the left upper extremity, less pronounced than the legs. Abdomen: soft, non-tender, mildly distended Skin: very pale. Erythematous maculopapular eruption on the abdomen. Perhaps some subtle skin thickening just distal to the DIPs, but otherwise no skin thickening. No digital ulcerations. No malar rash. No Gottron's sign. No heliotrope rash. Musculoskeletal: normal range of motion in the upper extremities. No synovitis or tender joints throughout. Strength appears normal in the proximal and distal upper extremities. Strength appears somewhat diminished in the legs, but there also seems to be an element of deconditioning. Neuro: no focal deficits. 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 Patient lives in [place], [place] and she is accompanied by three family members today. Patient's overall presentation is perplexing. She appears to have a protein losing enteropathy, as her protein intake is good, she has no significant proteinuria or significant renal disease nor doesshe have know cirrhosis (ultrasound of the liver was apparently normal) or heart failure. She has ev idence for both low albumin (~2.0) as well as serum immunoglobulins. It does seem unusual that she has not been experiencing diarrhea or steatorrhea, but instead endorses constipation. I would typically expect a protein losing enteropathy to be characterized by diarrhea. If she has dysmotility thiscould explain her constipation. The differential for protein losing enteropathy is extensive, including but not limited to IBD, Celiac disease, gastric malignancy, retroperitoneal fibrosis, pancreatitis & EPI, lymphatic obstruction including that caused by infiltrative disorders, constrictive pericarditis, amyloidosis, SIBO, infectious disease, and rarely rheumatic diseases. I have low concern for systemic rheumatic disease. Furthermore, patient has had a negative SAYRA and unremarkable SAYRA review of systems, save for the history of SIBO, which can be seen in systemic sclerosis; however, she does not have significant skin thickening and has no history of raynaud's phenomenon. Her inflammatory markers reveal normal CRP and ESR that is only minimally elevated (upper limit of normal adjusted for age and gender is 38) and can be explained by iron deficiency. Regarding her elevated CK, is is minimally elevated in the high 200s (albeit higher than one would expect given her low muscle mass), and her weakness seems more generalized in the setting of massive peripheral edema in the legs. For completeness, a myositis antibody panel and aldolase have been ordered. Patient does have a low serum free light chain ratio and normocytic anemia (which appears to be dueto iron deficiency). Given low kappa/lambda ratio, will refer to hematology for plasma cell dyscrasia work-up and consideration of bone marrow biopsy. Ultimately, I believe patient needs to see gastroenterology, as concern is for a protein losing enteropathy. Prior colonoscopies have been unsuccessful due to incomplete prep, per patient report. Annalee likely will need an endoscopy. If not already done, would also consider transvaginal ultrasound to rule-out pelvic malignancy. Several tumor markers were ordered and are in process. A consult to gastroenterology has been placed. Regarding her significant hypogammaglobulinemia, this seems to be coming from protein losing enteropathy. She is at risk for serious infections. Primary care provider might consider referral to immunology for replacement with IVIG. Office Visit on 06/03/22 PROT ELECT SERUM WITH CHANO AND INTERP CERULOPLASMIN BLD ALPHA [address] LIPASE BLD AMYLASE BLD FECAL LACTOFERRIN/LEUKOCYTES POLYMYOSITIS AND DERMATOMYOSITIS PANEL CK CREATINE KINASE ALDOLASE BLD SAYRA BY IFA WITH REFLEX ANTI WILY ID URINALYSIS, WITH MICROSCOPIC PROTEIN CREATININE RATIO IRON + TIBC FERRITIN BLD VITAMIN B12 BLOOD FOLATE SERUM CELIAC SCREEN WITH REFLEX HEP REMOTE PANEL BL BLOOD TB SCREEN HIV 1 2 COMBO(AG/AB),WITH REFLEX TO DIFFERENTIATION MYOGLOBIN RANDOM UR CEA BLD CA 125 BLD CA 19-9 BLD NT PRO BNP B2 MICROGLOBULIN B SED RATE WESTERGREN C-REACTIVE PROTEIN (CRP) AMMONIA BLD KAPPA/VIVEROS,FREE,SER C3 COMPLEMENT BLD C4 COMPLEMENT BLD PROTEIN ELECT RND UR W/INTERP TSH BLD THYROID PEROXIDASE ANTIBODY BLOOD THYROGLOBULIN AB T3 FREE BLD VITAMIN B1 (THIAMINE), WHOLE BLOOD VITAMIN B3/NIACIN, PLASMA VITAMIN K LD LACTATE DEHYDRO IGG SUBCLASS 4 ONLY CONSULT TO HEMATOLOGY/ONCOLOGY CONSULT TO GASTROENTEROLOGY No follow-ups on file. I spent a total of 180 minutes on the date of the service which included preparing to see the patient, [id number] patient care, completing clinical documentation, obtaining and/or reviewing separately obtained history, performing a medically appropriate examination, counseling and educating the pa tient/family/caregiver, and ordering medications, tests, or procedures. Ignacio Aguilar D.O. Associate Staff Rheumatic Disease [place] [id number] [place] [address] documented [facility] Instructions* Patient Instructions* Ignacio Aguilar DO - 06/03/2022 3:40 PM EST You were seen in the rheumatology clinic for elevated CK and anasarca - I feel a systemic rheumatic disease, like idiopathic inflammatory myopathy, to be unlikely - Lack of associated dermatomyositis rashes - Lack of proximal upper extremity weakness - Previously checked normal inflammatory markers - You have seen several outside providers without a unifying diagnosis for your generalized swelling - Apparently no significant protein in the urine (not nephrotic syndrome) - Apparently normal liver function (no cirrhosis) - Apparently no heart failure (normal echo) PLAN: Check labs today Referral to hematology given anemia and low serum free light chains - evaluate for plasma cell dyscrasia Referral to gastroenterology I will contact you via ITemat to discuss labs and next steps. Take care, Dr. Aguilar documented in this encounterHol[facility] History of Past illness Narrative* Problem Noted Date Resolved Date Anxiety state, unspecified 06/03 Depressive disorder, not elsewhere classified 06/03/2022 documented as of this encounter (statuses as of 06/04/2022) [facility]03[facility] History of Past illness Narrative* Problem Noted Date Resolved Date Anxiety state, unspecified 06/03 Depressive disorder, not elsewhere classified 06/03/2022 documented as of this encounter (statuses as of 06/08/2022) [facility] History of Past illness Narrative* Problem Noted Date Resolved Date Anxiety state, unspecified 06/03 Depressive disorder, not elsewhere classified 06/03/2022 documented as of this encounter (statuses as of 06/14/2022) [facility] History of Past illness Narrative* Problem Noted Date Resolved Date Anxiety state, unspecified 06/03 Depressive disorder, not elsewhere classified 06/03/2022 documented as of this encounter (statuses as of 06/17/2022) [address]09-2023 History of Past illness Narrative* Problem Noted Date Resolved Date Anxiety state, unspecified 06/03 Depressive disorder, not elsewhere classified 06/03/2022 documented as of this encounter (statuses as of 06/21/2022) [address]09-2023 History of Past illness Narrative* Problem Noted Date Resolved Date Anxiety state, unspecified 06/03 Depressive disorder, not elsewhere classified 06/03/2022 documented as of this encounter (statuses as of 06/21/2022) [address]09-2023 History of Past illness Narrative* Problem Noted Date Resolved Date Anxiety state, unspecified 06/03 Depressive disorder, not elsewhere classified 06/03/2022 documented as of this encounter (statuses as of 06/21/2022) [address]09-2023 History of Past illness Narrative* Problem Noted Date Resolved Date Anxiety state, unspecified 06/03 Depressive disorder, not elsewhere classified 06/03/2022 documented as of this encounter (statuses as of 06/29/2022) [facility] History of Past illness Narrative* Problem Noted Date Resolved Date Anxiety state, unspecified 06/03 Depressive disorder, not elsewhere classified 06/03/2022 documented as of this encounter (statuses as of 07/01/2022) [facility] History of Past illness Narrative* Problem Noted Date Resolved Date Anxiety state, unspecified 06/03 Depressive disorder, not elsewhere classified 06/03/2022 documented as of this encounter (statuses as of 07/09/2022) [address]09-2023 History of Past illness Narrative* Problem Noted Date Resolved Date Anxiety state, unspecified 06/03 Depressive disorder, not elsewhere classified 06/03/2022 documented as of this encounter (statuses as of 07/09/2022) [facility] of Past illness Narrative* Problem Noted Date Resolved Date Anxiety state, unspecified 06/03 Depressive disorder, not elsewhere classified 06/03/2022 documented as of this encounter (statuses as of 07/10/2022) [address]09-2023 History of Past illness Narrative* Problem Noted Date Resolved Date Anxiety state, unspecified 06/03 Depressive disorder, not elsewhere classified 06/03/2022 documented as of this encounter (statuses as of 07/12/2022) [facility] of Past illness Narrative* Problem Noted Date Resolved Date Anxiety state, unspecified 06/03 Depressive disorder, not elsewhere classified 06/03/2022 documented as of this encounter (statuses as of 07/13/2022) [facility] of Past illness Narrative* Problem Noted Date Resolved Date Anxiety state, unspecified 06/03 Depressive disorder, not elsewhere classified 06/03/2022 documented as of this encounter (statuses as of 07/20/2022) [facility] History of Past illness Narrative* Problem Noted Date Resolved Date Anxiety state, unspecified 06/03 Depressive disorder, not elsewhere classified 06/03/2022 documented as of this encounter (statuses as of 07/30/2022) [facility] of Past illness Narrative* Problem Noted Date Resolved Date Anxiety state, unspecified 06/03 Depressive disorder, not elsewhere classified 06/03/2022 documented as of this encounter (statuses as of 08/03/2022) [facility] of Past illness Narrative* Problem Noted Date Resolved Date Anxiety state, unspecified 06/03 Depressive disorder, not elsewhere classified 06/03/2022 documented as of this encounter (statuses as of 08/06/2022) [facility] History of Past illness Narrative* Problem Noted Date Resolved Date Anxiety state, unspecified 06/03 Depressive disorder, not elsewhere classified 06/03/2022 documented as of this encounter (statuses as of 08/06/2022) [facility] of Past illness Narrative* Problem Noted Date Resolved Date Anxiety state, unspecified 06/03 Depressive disorder, not elsewhere classified 06/03/2022 documented as of this encounter (statuses as of 08/27/2022) [facility] History of Past illness Narrative* Problem Noted Date Resolved Date Anxiety state, unspecified 03/09 /2023 Depressive disorder, not elsewhere classified 06/03/2022 documented as of this encounter (statuses as of 09/07/2022) [facility] of Past illness Narrative* Problem Noted Date Resolved Date Anxiety state, unspecified 06/03 Depressive disorder, not elsewhere classified 06/03/2022 documented as of this encounter (statuses as of 09/10/2022) [facility] of Past illness Narrative* Problem Noted Date Resolved Date Anxiety state, unspecified 06/03 Depressive disorder, not elsewhere classified 06/03/2022 documented as of this encounter (statuses as of 09/25/2022) [facility] History of Past illness Narrative* Problem Noted Date Diagnosed Date Resolved Date Anxiety state, unspecified 0 06/03/2022 Depressive disorder, not elsewhere classified 06/03/2022 documented as of this encounter (statuses as of 10/26/2022) [facility] History of Past illness Narrative* Problem Noted Date Diagnosed Date Resolved Date Anxiety state, unspecified 0 06/03/2022 Depressive disorder, not elsewhere classified 06/03/2022 documented as of this encounter (statuses as of 11/03/2022) [facility] History of Past illness Narrative* Problem Noted Date Diagnosed Date Resolved Date Anxiety state, unspecified 0 06/03/2022 Depressive disorder, not elsewhere classified 06/03/2022 documented as of this encounter (statuses as of 11/24/2022) [facility] History of Past illness Narrative* Problem Noted Date Diagnosed Date Resolved Date Anxiety state, unspecified 0 06/03/2022 Depressive disorder, not elsewhere classified 06/03/2022 documented as of this encounter (statuses as of 02/25/2023) [facility] History of Past illness Narrative* Problem Noted Date Diagnosed Date Resolved Date Anxiety state, unspecified 0 06/03/2022 Depressive disorder, not elsewhere classified 06/03/2022 documented as of this encounter (statuses as of 07/15/2023) [facility]02[facility] Colin Quick [facility] May 10, 2022 9:26pm Note Date/Time May 10, 2022 7:29pm [facility] Medical Records Department [address] [place] [address] Emergency Department Summary 05/10/22 MR#: [id number] Acct: [id number] Name: HALEY GLEZ Rep #:[id number] : 1965 57 From: Yefri Shaw DO PCP: Dr. Jossie De La Rosa MD Status:REG ER Location: ED HPI History of Present Illness Chief Complaint: Edema Narrative Narrative: Presenting with lower extremity edema somewhat to her waist. She states has hadthis in the past. Previously admitted for Lasix therapy. She states last Tuesday took up about [address] Jossie De La Rosa has cut her Lasix down. He has her to 4 cups of water a day. Patient states that he is worried about her liver enzymes as well. They state they have a consult with nephrologythis Tuesday and a consult with rheumatology in May. Patient having troublewith ADLs. She is having trouble standing and walking. She is limited her showers to once a week because she has trouble standing. This is due to lower extremity edema. 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 Obsessive compulsive disorder Osteoporosis Polypharmacy Home Medications Lactobacillus rhamnosus GG 5 billion cell oral powder packet (Culturelle Kids Probiotics) 1 cell PO DAILY PROBIOTIC 07/16/21 [History Last Taken 03/14/22] melatonin 5 mg tablet 5 mg PO HS PRN Insomnia 07/16/21 [History Last Taken 03/14/22] progestrone compound 1 applic topical DAILY HORMONE 07/16/21 [History Last Taken 03/14/22] digestive enzymes 1 tab PO TIDCM 03/15/22 [History Last Taken 03/14/22] cholecalciferol (vitamin D3) 25 mcg (1,000 unit) tablet 50 mcg PO DAILY 30 days #60 tabs 03/20/22 [Rx Last Taken Unknown] levothyroxine 50 mcg tablet 50 mcg PO .daily, 2 on Sundays #34 tabs 03/22/22 [Rx Last Taken Unknown] furosemide 20 mg tablet (Lasix) 20 mg PO DAILY 05/10/22 [History Last Taken Unknown] Allergy/AdvReac Type Severity Reaction Status Date / Time codeine Allergy Vomiting Verified 05/10/22 17:44 amoxicillin AdvReac Intermediate hot flash Verified 05/10/22 17:44 lactose AdvReac Vomiting Verified 05/10/22 17:44 Family History Mother Heart disease Hypothyroidism Father OCD (obsessive compulsive disorder) Social History household members: family housing: house Smoking Status: Never smoker alcohol intake: never substance use type: does not use ROS ROS ED Review of Systems ROS Unobtainable: Denies due to encephalopathy Constitutional Constitutional ED: Denies chills or fever(s) Eyes Eyes: Denies change in vision ENT ENT ED: Denies rhinorrhea or sore throat Cardiovascular Cardiovascular: Denies chest pain or palpitations Respiratory/Chest Respiratory/Chest: Denies cough or dyspnea Gastrointestinal Gastrointestinal: Denies abdominal pain Genitourinary Genitourinary ED: Denies dysuria or hematuria Musculoskeletal Musculoskeletal: Denies arthralgias or back pain Integumentary Denies abscess Neurologic Neurologic: Denies headache(s) Psychiatric Psychiatric: Denies anxiety EXAM Physical Exam Const Vital Signs: 05/10/22 17:41 05/10/22 18:57 05/10/22 18:57 Temperature 97.2 F L Temperature Source Temporal Pulse Rate 58 L 56 L Respiratory Rate 16 12 Respiratory Effort Respiratory Pattern Blood Pressure 138/82 H 137/92 H Blood Pressure Mean 100 107 Pulse Ox 99 100 100 Oxygen Delivery Method Room Air Room Air 05/10/22 18:57 Temperature Temperature Source Pulse Rate Respiratory Rate Respiratory Effort Normal Non-Labored Respiratory Pattern Normal Blood Pressure Blood Pressure Mean Pulse Ox Oxygen Delivery Method Positive well nourished General Appearance ED: NAD; Negative for pallor HEENT Reports moist mucous membranes and dry mucous membranes Mouth ED: Yes dry mucous membranes Mouth: dry mucous membranes Neck no lymphadenopathy Resp normal respiratory effort Cardio regular rate Rate: bradycardia Extremity General Extremety ED: Yes edema General Extremity: edema Neuro oriented x3 and CN's II-XII intact bilaterally Sensorium / Orientation: alert Skin no rashes or lesions noted General Skin Exam: Negative for jaundice or pallor MDM MDM MDM Narrative Medical decision making narrative: Patient presenting with lower extremity edema which has been worsening apparently. Patient does take Lasix but states that her primary care physician is cut back on this. He is concerned about liver function and renal function. CBC to assess hemoglobin, white blood cell count, differential. BMP to assess renal function, electrolytes, anion gap. LFTs to assess liver enzymes. High-sensitivity troponin to assess cardiac source due to the lower extremity edema. EKG was obtained and on my interpretation this is sinus bradycardia with a ventricular to 51 bpm without sign of ischemic change. Chest x-ray was obtainedto rule out findings of CHF and this is normal. CBC and BMP are essentially unremarkable. Her BUN creatinine ratio is very high. Troponin is normal. Hemoglobin, hematocrit, platelets all normal. Patient states last time she was here she was admitted for Lasix therapy and discharged home. She has seen Dr. Lawrence. Is also been seen by nephrology inpatient in the hospital. Supposed tosee Dr. Bello this week and rheumatology next month. Patient discussed with the hospitalist as he does know her very well. He did evaluate the patient and states this is her baseline. There was no need for admission. Patient comfortable with this plan. Liver enzymes slightly elevated but nonspecific. Patientwill be discharged home in stable condition. Impression: 1. Generalized weakness 2. Lower extremity edema Lab Data Attestation: I reviewed the patient's lab results. Labs: Laboratory Results - last 24 hr 05/10/22 05/10/22 05/10/22 18:40 18:40 18:55 WBC 5.7 RBC 3.03 L Hgb 9.8 L Hct 29.0 L MCV 95.7 MCH 32.3 H MCHC 33.8 RDW Std Deviation 58.9 H RDW Coeff of Shalini 17.0 H Plt Count 258 MPV 12.0 Immature Gran % (Auto) 0.200 Neut % (Auto) 84.1 H Lymph % (Auto) 9.6 L Gregory % (Auto) 5.7 Eos % (Auto) 0.2 Baso % (Auto) 0.2 Absolute Neuts (auto) 4.8 Absolute Lymphs (auto) 0.54 L Nucleated RBC % 0 Differential Comment SCANNED Sodium 141 Potassium 4.7 Chloride 107 Carbon Dioxide 32.0 Anion Gap 2 L BUN 44 H Creatinine 0.96 Estim Creat Clear Calc 69.92 Est GFR (MDRD) Af Amer 77 Est GFR (MDRD) Non-Af 64 BUN/Creatinine Ratio 46.1 H Glucose 105 Calcium 9.0 Total Bilirubin < 0.10 L Direct Bilirubin 0.05 AST 67 H ALT 70 H Alkaline Phosphatase 64 Troponin I High Sens 15 Total Protein 4.8 L Albumin 2.0 L Globulin 2.8 Radiography Diagnostic Testing: Clinical Impression(s) from Imaging Studies Chest X-Ray 05/10/22 18:55 IMPRESSION: Emphysema without pneumonia or atelectasis. Electronically Signed: Sharad Anand MD at 19:56 EST , Discharge Plan Triage Chief Complaint: Edema ED Provider: Yefri Shaw Dx/Rx/DC Orders Instructions: ED Peripheral Edema, Bilateral Prescriptions: No Action Culturelle Kids Probiotics 5 billion cell powder in packet 1 cell PO DAILY melatonin 5 mg tablet 5 mg PO HS PRN (Reason: Insomnia) progestrone compound 1 applic topical DAILY digestive enzymes Tablet 1 tab PO TIDCM cholecalciferol (vitamin D3) 25 mcg (1,000 unit) Tablet 50 mcg PO DAILY 30 Days Qty: 60 0RF furosemide [Lasix] 20 mg Tablet 20 mg PO DAILY levothyroxine 50 mcg tablet 50 mcg PO .daily, 2 on Sundays Qty: 34 6RF Rx Instructions: and tuesday takes 100mg Primary Care Provider: Jossie De La Rosa Referrals: Jossie De La Rosa MD [Primary Care Provider] - Disposition Disposition: Home, Self Care What to do if you have Problems For any increased pain, shortness of breath, bleeding, nausea or vomiting, chestpain, or any unexpected problems, contact your Primary Care Provider. Call [facility] ([phone]) or report to the closest Emergency Room. Call 911 if necessary. 05/10/222125 <Electronically signed by Yefri Shaw DO> Cosigner Signature (if applicable): CC: Dr. Jossie De La Rosa MD ~ Signed [facility] Work Phone: Evaluation note* Diagnosis Onset Date Resolution Status Contact dermatitis acute Debility acute Elevated liver enzymes acute Hyponatremia acute Hypothyroid acute Severe protein-calorie malnutrition acute Thrombocytopenia acute COVID-19 vaccination declined resolved Polypharmacy resolved Elevated liver enzymes acute Severe protein-calorie malnutrition acute Thrombocytopenia acute [facility] Work Phone: Evaluation note* Diagnosis Onset Date Resolution Status Contact dermatitis acute Debility acute Elevated liver enzymes acute Hyponatremia acute Hypothyroid acute Severe protein-calorie malnutrition acute Thrombocytopenia acute COVID-19 vaccination declined resolved Polypharmacy resolved Elevated liver enzymes acute Severe protein-calorie malnutrition acute Thrombocytopenia acute 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 acute Osteoporosis acute [facility] Work Phone: Evaluation note* Diagnosis Onset Date Resolution Status Elevated liver enzymes acute Severe protein-calorie malnutrition acute Thrombocytopenia acute 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 acute Osteoporosis acute Elevated liver enzymes acute Severe protein-calorie malnutrition acute Thrombocytopenia acute [facility] Work Phone: Evaluation note* Diagnosis Onset Date Resolution Status 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 acute Osteoporosis acute Elevated liver enzymes acute Severe protein-calorie malnutrition acute Thrombocytopenia acute [facility] Work Phone: Evaluation note* Diagnosis Onset Date Resolution Status Elevated liver enzymes acute Severe protein-calorie malnutrition acute Thrombocytopenia acute [facility] Work Phone: Evaluation note* Diagnosis Onset Date Resolution Status Elevated liver enzymes acute Severe protein-calorie malnutrition acute Thrombocytopenia acute Elevated liver enzymes acute Severe protein-calorie malnutrition acute Thrombocytopenia acute [facility] Work Phone: Evaluation note* Diagnosis Onset Date Resolution Status Elevated liver enzymes acute Severe protein-calorie malnutrition acute Thrombocytopenia acute 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 acute Osteoporosis acute [facility] Work Phone: Evaluation note* Diagnosis Onset Date Resolution Status Elevated liver enzymes acute Severe protein-calorie malnutrition acute Thrombocytopenia acute 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 acute Osteoporosis acute Myositis acute Severe protein-calorie malnutrition acute Bilateral edema of lower extremity acute Difficulty in walking acute Elevated BUN acute Hypoalbuminemia acute 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 acute [facility] Work Phone: Evaluation note* Diagnosis Onset Date Resolution Status Elevated liver enzymes acute Severe protein-calorie malnutrition acute Thrombocytopenia acute 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 acute Osteoporosis acute Myositis acute Severe protein-calorie malnutrition acute Abnormal presence of protein in urine acute Anasarca acute Anemia acute Bilateral edema of lower extremity acute Difficulty in walking acute Elevated BUN acute Hypoalbuminemia acute 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 acute [facility] Work Phone: Evaluation note* Diagnosis Onset Date Resolution Status Elevated liver enzymes acute Severe protein-calorie malnutrition acute Thrombocytopenia acute 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 acute Osteoporosis acute Myositis acute Severe protein-calorie malnutrition acute Anemia acute Bilateral edema of lower extremity acute Hypoalbuminemia acute 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 acute [facility] Work Phone: Evaluation note* Diagnosis Onset Date Resolution Status 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 acute Osteoporosis acute Myositis acute Severe protein-calorie malnutrition acute Anemia acute Bilateral edema of lower extremity acute Hypoalbuminemia acute 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 acute [facility] Work Phone: Evaluation note* Diagnosis Onset Date Resolution Status Myositis acute Severe protein-calorie malnutrition acute Bilateral edema of lower extremity acute Hypoalbuminemia acute 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 acute Anemia chronic Anemia chronic [facility] Work Phone: Evaluation note* Diagnosis Onset Date Resolution Status Myositis acute Severe protein-calorie malnutrition acute Bilateral edema of lower extremity acute Hypoalbuminemia acute 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 acute Anemia chronic Anemia chronic Iron deficiency anemia acute Anemia chronic Elevated serum immunoglobulin free light chains [facility] Work Phone: Evaluation note* Diagnosis 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- Primary Other disorders of plasma protein metabolism Anasarca Edema Elevated CK Other nonspecific abnormal serum enzyme levels Muscle weakness Muscle weakness (generalized) Elevated LFTs Other abnormal blood chemistry History of leukopenia, WBC 3.3 with ANC 2K and ALC 800, both low, on 03/27/2012 Iron deficiency anemia Hypogammaglobulinemia Abnormal serum free light chain ratio (low) Other nonspecific findings on examination of blood History of hypothyroidism 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 documented [facility] this encounter [facility] Diagnosis Edema, unspecified type- Primary Elevated CK Other nonspecific abnormal serum enzyme levels Muscle weakness of lower extremity Muscle weakness (generalized) Elevated TSH Nonspecific abnormal results of thyroid function study Iron deficiency anemia, unspecified iron deficiency anemia type Constipation, unspecified constipation type Abdominal bloating Flatulence, eructation, and gas pain documented in this [facility] Elevated fecal calprotectin- Primary Blood in stool Iron deficiency anemia, unspecified iron deficiency anemia type Constipation, unspecified constipation type Nausea Nausea alone Irritable bowel syndrome with constipation Irritable bowel syndrome 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 [facility] Diagnosis Lymphedema- Primary Other lymphedema Edema, unspecified type [facility] Diagnosis Encounter for consultation- Primary Unspecified reason for consultation [facility] Diagnosis Weakness- Primary Other malaise and fatigue Elevated CK Other nonspecific abnormal serum enzyme levels Muscle weakness of lower extremity Muscle weakness (generalized) [facility] Diagnosis Muscle weakness of lower extremity- Primary Muscle weakness (generalized) Edema, unspecified type MGUS (monoclonal gammopathy of unknown significance) Monoclonal paraproteinemia Lymphedema Other lymphedema Iron deficiency anemia, unspecified iron deficiency anemia type Stage 2 chronic kidney disease Irritable bowel syndrome with constipation Irritable bowel syndrome Hypoalbuminemia Other disorders of plasma protein metabolism [facility] Diagnosis Monoclonal paraproteinemia- Primary Iron deficiency anemia [facility] Diagnosis Elevated serum immunoglobulin free light chains Other nonspecific findings on examination of blood Iron deficiency anemia, unspecified iron deficiency anemia type [facility] Diagnosis Monoclonal gammopathy- Primary Monoclonal paraproteinemia Multiple myeloma not having achieved remission (HCC) Multiple myeloma, without mention of having achieved remission [facility] Diagnosis Multiple myeloma not having achieved remission (HCC) Multiple myeloma, without mention of having achieved remission [facility] Diagnosis Neoplasm of unspecified behavior of bone, soft tissue, and skin [facility] Diagnosis Constipation, unspecified constipation type [facility] Diagnosis Smoldering multiple myeloma- Primary Multiple myeloma, without mention of having achieved remission [facility] Diagnosis Multiple myeloma, remission status unspecified (HCC)- Primary [facility]* Diagnosis Smoldering multiple myeloma (SMM)- Primary Multiple myeloma, without mention of having achieved remission [facility] Diagnosis Onset Date Resolution Status 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 [facility] Work Phone: evaluation note* Diagnosis Smoldering multiple myeloma (SMM)- Primary Multiple myeloma, without mention of having achieved remission [facility] noteNo assessment information availableWDoctors Hospital Work Phone: Evaluation note* Diagnosis Multiple myeloma, remission status unspecified (HCC) [facility] Diagnosis Multiple myeloma not having achieved remission (HCC) Multiple myeloma, without mention of having achieved remission [facility] Diagnosis Monoclonal paraproteinemia- Primary Hypogammaglobulinemia (HCC) Hypogammaglobulinaemia, unspecified [facility] Diagnosis Smoldering myeloma Multiple myeloma, without mention of having achieved remission Neoplasm of unspecified behavior of bone, soft tissue, and skin [facility] Diagnosis Smoldering multiple myeloma (SMM)- Primary Multiple myeloma, without mention of having achieved remission Hypogammaglobulinemia (HCC) Hypogammaglobulinaemia, unspecified Anemia, unspecified type [facility] Diagnosis Acquired hypothyroidism- Primary Unspecified hypothyroidism [facility] Diagnosis Smoldering multiple myeloma (SMM)- Primary Multiple myeloma, without mention of having achieved remission Blood in stool Iron deficiency anemia due to chronic blood loss Iron deficiency anemia secondary to blood loss (chronic) Hypothyroidism due to Margot thyroiditis [facility] Diagnosis Iron deficiency anemia, unspecified iron deficiency anemia type- Primary Blood in stool Anemia, unspecified type [facility] Diagnosis Iron deficiency anemia, unspecified iron deficiency anemia type- Primary [facility]* Diagnosis Acquired hypothyroidism- Primary Unspecified hypothyroidism [facility] Diagnosis Smoldering multiple myeloma (SMM)- Primary Multiple myeloma, without mention of having achieved remission Hypothyroidism, unspecified type [facility] Smoldering multiple myeloma (SMM)- Primary Multiple myeloma, without mention of having achieved remission Iron deficiency anemia, unspecified iron deficiency anemia type Hypothyroidism, unspecified type [facility] Work Phone: Reason for referral (narrative)* Outpatient Procedure (Routine) - Pending Review Specialty Diagnoses / Procedures Referred By Deep tipton Referred To Contact [facility] Diagnoses Iron deficiency anemia, unspecified iron deficiency anemia type Procedures EGD DIAGNOSTIC ESOPHAGOGASTRODUODENOSC OPY TRANSORAL DIAGNOSTIC Gerard Novoa APRN.CNP [address] [place] [id number] [facility] Disease [place] [facility] [place] [address] Referral ID Status Reason Start Date Expiration Date Visits Requested Visits Authorized [id number] Pending Review Auto-Generat ed Referral 06/11/2022 06/12/2023 1 1 * Outpatient Procedure (Routine) - Pending Review Specialty Diagnoses / Procedures Referred By Deep tipton Referred To Contact [facility] Diagnoses Blood in stool Elevated fecal calprotectin Procedures COLONOSCOPY DIAGNOSTIC COLONOSCOPY FLX DX W/COLLJ SPEC WHEN PFRMD Gerard Novoa APRN.CNP [address] [place] [address] [facility] Disease [place] [address] [place] [id number] Referral ID Status Reason Start Date Expiration Date Visits Requested Visits Authorized [id number] Pending Review Auto-Generat ed Referral 06/11/2022 06/12/2023 1 1 * Medication Prior Authorization - Closed Specialty Diagnoses / Procedures Referred By Deep tipton Referred To Contact Diagnoses Blood in stool Elevated fecal calprotectin Gerard Novoa APRN.CNP [address] [place] [id number] Referral ID Status Reason Start Date Expiration Date Visits Re quested Visits Authorized [id number] Closed [address] [facility] for referral (narrative)* Diagnostic Procedure Only (Routine) - Closed Specialty Diagnoses / Procedures Referred By Contac t Referred To Contact XR IMAGING Diagnoses Elevated serum immunoglobulin free light chains Procedures XR BONE SURVEY ROUTINE RADIOLOGIC EXAMINATION OSSEOUS SURVEY Shauna Comer APRN.CNP [address] [place] [address] Xr Imaging Referral ID Status Reason Start Date Expiration Date V isits Requested Visits Authorized [id number] Closed Auto-Generate d Referral 06/21/2022 07/21/2023 [address] [facility] for referral (narrative)* Diagnostic Procedure Only (Routine) - Closed Specialty Diagnoses / Procedures Referred By Contac t Referred To Contact MOLECULAR & FUNCTIONAL IMAGING Diagnoses Multiple myeloma not having achieved remission (HCC) Procedures NM PET/CT WHOLE BODY INITIAL PET IMAGING FOR CT ATTENUATION WHOLE BODY Johanna Mandel MD [address] [place] [address] Molecular & Functional Imaging [address] [place] [address] Referral ID Status Reason Start Date Expiration Date V isits Requested Visits Authorized [id number] Closed Auto-Generate d Referral 08/05/2022 10/04/2022 [address] [facility] for referral (narrative)* Diagnostic Procedure Only (Routine) - Pending Review Specialty Diagnoses / Procedures Referred By Contac t Referred To Contact MOLECULAR & FUNCTIONAL IMAGING Diagnoses Multiple myeloma not having achieved remission (HCC) Procedures NM PET/CT WHOLE BODY SUBSEQUENT PET IMAGING FOR CT ATTENUATION WHOLE BODY Johanna Mandel MD [address] [place] [phone] Molecular [facility] Functional [facility] [address] [place] [phone] Referral ID Status Reason Start Date Expiration Date Visits Requested Visits Authorized [id number] Pending Review Auto-Generat ed Referral 10/13/2023 08/12/2024 [address] [facility] for referral (narrative)No reason for referral information availableWDoctors Hospital Work Phone: [facility] for visit Narrative* Diagnostic Procedure Only (Routine) - Closed Specialty Diagnoses / Procedures Referred By Contac t Referred To Contact MOLECULAR & FUNCTIONAL IMAGING Diagnoses Multiple myeloma not having achieved remission (HCC) Procedures NM PET/CT WHOLE BODY INITIAL PET IMAGING FOR CT ATTENUATION WHOLE BODY Johanna Mandel MD [address] [place] [address] Molecular & Functional Imaging [address] [place] [address] Referral ID Status Reason Start Date Expiration Date V isits Requested Visits Authorized [id number] Closed Auto-Generate d Referral 08/05/2022 10/04/2022 [address] [facility] for visit Narrative* Diagnostic Procedure Only (Routine) - Closed Specialty Diagnoses / Procedures Referred By Deep tipton Referred To Contact MOLECULAR & FUNCTIONAL IMAGING Diagnoses Multiple myeloma not having achieved remission (HCC) Procedures NM PET/CT WHOLE BODY SUBSEQUENT PET IMAGING FOR CT ATTENUATION WHOLE BODY Johanna Mandel MD [address] [place] [address] Molecular [facility] Functional Imaging [address] [place] [phone] Referral ID Status Reason Start Date Expiration Date V isits Requested Visits Authorized [id number] Closed Auto-Generate d Referral 09/14/2023 11/13/2023 [address] [facility] for visit Narrative* Outpatient Procedure (Routine) - Closed Specialty Diagnoses / Procedures Referred By Deep tipton Referred To Contact [facility] Diagnoses Anemia, unspecified type Procedures COLONOSCOPY DIAGNOSTIC COLONOSCOPY FLX DX W/COLLJ SPEC WHEN PFRMD Johanna Mandel Kamron, MD [address] [place] [address] Phone: tel: fax: [facility] [address] [place] [address] Referral ID Status Reason Start Date Expiration Date V isits Requested Visits Authorized [id number] Closed Auto-Generate d Referral 07/17/2024 07/17/2025 1 1 [facility] Chief Complaint and Reason for Visit Chief Complaint EORDER E LAB ORDER FROM DR DE LA ROSA ELEVATED LIVER ENZYMES ACUTE HYPOATREMIA ACUTE HYPOATREMIA ACUTE HYPOATREMIA ACUTE HYPOATREMIA ACUTE HYPOATREMIA ACUTE HYPOATREMIA ACUTE HYPOATREMIA ACUTE HYPOATREMIA allergic reaction allergic reaction EORDER UNABLE TO GAIN WEIGHT EORDER Reason for Visit Contact dermatitis Debility Elevated liver enzymes Hyponatremia Hypothyroid Severe protein-calorie malnutrition Thrombocytopenia COVID-19 vaccination declined Polypharmacy Elevated liver enzymes Severe protein-calorie malnutrition Thrombocytopenia Chief Complaint EORDER E LAB ORDER FROM DR DE LA ROSA ELEVATED LIVER ENZYMES ACUTE HYPOATREMIA ACUTE HYPOATREMIA ACUTE HYPOATREMIA ACUTE HYPOATREMIA ACUTE HYPOATREMIA ACUTE HYPOATREMIA ACUTE HYPOATREMIA ACUTE HYPOATREMIA allergic reaction allergic reaction EORDER UNABLE TO GAIN WEIGHT EORDER GLASS INSERTER, THYROID, NPP MAILED ABN WT LOSS HYPOTHYROIDISM Reason for Visit Contact dermatitis Debility Elevated liver enzymes Hyponatremia Hypothyroid Severe protein-calorie malnutrition Thrombocytopenia COVID-19 vaccination declined Polypharmacy Elevated liver enzymes Severe protein-calorie malnutrition Thrombocytopenia Chief Complaint E LAB ORDER FROM DR DE LA ROSA ELEVATED LIVER ENZYMES ACUTE HYPOATREMIA ACUTE HYPOATREMIA ACUTE HYPOATREMIA ACUTE HYPOATREMIA ACUTE HYPOATREMIA ACUTE HYPOATREMIA ACUTE HYPOATREMIA ACUTE HYPOATREMIA allergic reaction allergic reaction EORDER UNABLE TO GAIN WEIGHT EORDER GLASS INSERTER, THYROID, NPP MAILED ABN WT LOSS HYPOTHYROIDISM Reason for Visit Contact dermatitis Debility Elevated liver enzymes Hyponatremia Hypothyroid Severe protein-calorie malnutrition Thrombocytopenia COVID-19 vaccination declined Polypharmacy Elevated liver enzymes Severe protein-calorie malnutrition Thrombocytopenia 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 Osteoporosis Chief Complaint ACUTE HYPOATREMIA ACUTE HYPOATREMIA ACUTE HYPOATREMIA ACUTE HYPOATREMIA ACUTE HYPOATREMIA ACUTE HYPOATREMIA ACUTE HYPOATREMIA ACUTE HYPOATREMIA allergic reaction allergic reaction EORDER UNABLE TO GAIN WEIGHT EORDER GLASS INSERTER, THYROID, NPP MAILED ABN WT LOSS HYPOTHYROIDISM EORDER Reason for Visit Contact dermatitis Debility Elevated liver enzymes Hyponatremia Hypothyroid Severe protein-calorie malnutrition Thrombocytopenia COVID-19 vaccination declined Polypharmacy Elevated liver enzymes Severe protein-calorie malnutrition Thrombocytopenia 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 Osteoporosis Chief Complaint allergic reaction allergic reaction EORDER UNABLE TO GAIN WEIGHT EORDER GLASS INSERTER, THYROID, NPP MAILED ABN WT LOSS HYPOTHYROIDISM EORDER 12 WK FU Reason for Visit Elevated liver enzym es Severe protein-calorie malnutrition Thrombocytopenia 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 Osteoporosis Elevated liver enzymes Severe protein-calorie malnutrition Thrombocytopenia Chief Complaint GLASS INSERTER, THYROID, NPP ADAN LED ABN WT LOSS HYPOTHYROIDISM EORDER 12 WK FU Reason for Visit Hypothyroidism due t o Margot's thyroiditis Osteoporosis Elevated liver enzymes Severe protein-calorie malnutrition Thrombocytopenia Chief Complaint EORDER 12 WK FU Reason for Visit Elevated liver enzym es Severe protein-calorie malnutrition Thrombocytopenia Chief Complaint 12 WK FU 3 M FU Reason for Visit Elevated liver enzym es Severe protein-calorie malnutrition Thrombocytopenia Elevated liver enzymes Severe protein-calorie malnutrition Thrombocytopenia Chief Complaint 12 WK FU 3 M FU ELEVATED LIVER ENZYMES Reason for Visit Elevated liver enzym es Severe protein-calorie malnutrition Thrombocytopenia Elevated liver enzymes Severe protein-calorie malnutrition Thrombocytopenia Chief Complaint 3 M FU ELEVATED LIVER ENZYMES 6 M FU E-ORDER Reason for Visit Elevated liver enzym es Severe protein-calorie malnutrition Thrombocytopenia 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 Osteoporosis Chief Complaint 3 M FU ELEVATED LIVER ENZYMES 6 M FU E-ORDER E ORDERS 3 MO FU E ORDER 24 HR URINE Edema BILATERAL LOWER EXTREMITY EDEMA & DIFFICULTY AMBUL Reason for Visit Elevated liver enzym es Severe protein-calorie malnutrition Thrombocytopenia 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 Osteoporosis Myositis Severe protein-calorie malnutrition Bilateral edema of lower extremity Difficulty in walking Elevated BUN Hypoalbuminemia 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 Chief Complaint 3 M FU ELEVATED LIVER ENZYMES 6 M FU E-ORDER E ORDERS 3 MO FU E ORDER 24 HR URINE Edema BILATERAL LOWER EXTREMITY EDEMA & DIFFICULTY AMBUL BILATERAL LOWER EXTREMITY EDEMA & DIFFICULTY AMBUL BILATERAL LOWER EXTREMITY EDEMA & DIFFICULTY AMBUL BILATERAL LOWER EXTREMITY EDEMA & DIFFICULTY AMBUL BILATERAL LOWER EXTREMITY EDEMA & DIFFICULTY AMBUL BILATERAL LOWER EXTREMITY EDEMA & DIFFICULTY AMBUL Reason for Visit Elevated liver enzym es Severe protein-calorie malnutrition Thrombocytopenia 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 Osteoporosis Myositis Severe protein-calorie malnutrition Abnormal presence of protein in urine Anasarca Anemia Bilateral edema of lower extremity Difficulty in walking Elevated BUN Hypoalbuminemia 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 Chief Complaint 3 M FU ELEVATED LIVER ENZYMES 6 M FU E-ORDER E ORDERS 3 MO FU E ORDER 24 HR URINE Edema BILATERAL LOWER EXTREMITY EDEMA & DIFFICULTY AMBUL BILATERAL LOWER EXTREMITY EDEMA & DIFFICULTY AMBUL BILATERAL LOWER EXTREMITY EDEMA & DIFFICULTY AMBUL BILATERAL LOWER EXTREMITY EDEMA & DIFFICULTY AMBUL BILATERAL LOWER EXTREMITY EDEMA & DIFFICULTY AMBUL BILATERAL LOWER EXTREMITY EDEMA & DIFFICULTY AMBUL BILATERAL LOWER EXTREMITY EDEMA & DIFFICULTY AMBUL Reason for Visit Elevated liver enzym es Severe protein-calorie malnutrition Thrombocytopenia 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 Osteoporosis Myositis Severe protein-calorie malnutrition Anemia Bilateral edema of lower extremity Hypoalbuminemia 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 Chief Complaint 6 M FU E-ORDER E ORDERS 3 MO FU E ORDER 24 HR URINE Edema BILATERAL LOWER EXTREMITY EDEMA & DIFFICULTY AMBUL BILATERAL LOWER EXTREMITY EDEMA & DIFFICULTY AMBUL BILATERAL LOWER EXTREMITY EDEMA & DIFFICULTY AMBUL BILATERAL LOWER EXTREMITY EDEMA & DIFFICULTY AMBUL BILATERAL LOWER EXTREMITY EDEMA & DIFFICULTY AMBUL BILATERAL LOWER EXTREMITY EDEMA & DIFFICULTY AMBUL BILATERAL LOWER EXTREMITY EDEMA & DIFFICULTY AMBUL SWELLING Reason for Visit Hypothyroidism due t o Margot's thyroiditis Osteoporosis Myositis Severe protein-calorie malnutrition Anemia Bilateral edema of lower extremity Hypoalbuminemia 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 Chief Complaint E ORDERS 3 MO FU E ORDER 24 HR URINE Edema BILATERAL LOWER EXTREMITY EDEMA & DIFFICULTY AMBUL BILATERAL LOWER EXTREMITY EDEMA & DIFFICULTY AMBUL BILATERAL LOWER EXTREMITY EDEMA & DIFFICULTY AMBUL BILATERAL LOWER EXTREMITY EDEMA & DIFFICULTY AMBUL BILATERAL LOWER EXTREMITY EDEMA & DIFFICULTY AMBUL BILATERAL LOWER EXTREMITY EDEMA & DIFFICULTY AMBUL BILATERAL LOWER EXTREMITY EDEMA & DIFFICULTY AMBUL SWELLING LYMPHEDEMA/RX HERE NEW PT - ANEMIA MED ONC Reason for Visit Myositis Severe protein-calorie malnutrition Bilateral edema of lower extremity Hypoalbuminemia 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 Anemia Anemia Chief Complaint E ORDERS 3 MO FU E ORDER 24 HR URINE Edema BILATERAL LOWER EXTREMITY EDEMA & DIFFICULTY AMBUL BILATERAL LOWER EXTREMITY EDEMA & DIFFICULTY AMBUL BILATERAL LOWER EXTREMITY EDEMA & DIFFICULTY AMBUL BILATERAL LOWER EXTREMITY EDEMA & DIFFICULTY AMBUL BILATERAL LOWER EXTREMITY EDEMA & DIFFICULTY AMBUL BILATERAL LOWER EXTREMITY EDEMA & DIFFICULTY AMBUL BILATERAL LOWER EXTREMITY EDEMA & DIFFICULTY AMBUL SWELLING LYMPHEDEMA/RX HERE NEW PT - ANEMIA 1WK LABS PRIOR MED ONC Reason for Visit Myositis Severe protein-calorie malnutrition Bilateral edema of lower extremity Hypoalbuminemia 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 Anemia Anemia Iron deficiency anemia Anemia Elevated serum immunoglobulin free light chains Chief Complaint Hypothyroidism, unsp ecified 6 M FU Reason for Visit Hypothyroidism due t o Margot's thyroiditis Chief Complaint 6 M FU Reason for Visit Hypothyroidism due t o Margot's thyroiditis Chief Complaint Admit Date Blood in stool June 27, 2024 2:22 pm Reason for Visit Admit Date Iron deficiency anemia June 27, 2024 2 :22pm Multiple myeloma June 27, 2024 2:22 pm Chief Complaint Admit Date Blood in stool June 27, 2024 2:22 pm pill cam August 21, 2024 8:54a m NEED ORDER August 21, 2024 9:08a m Chief Complaint Admit Date Blood in stool June 27, 2024 2:22 pm pill cam August 21, 2024 8:54a m NEED ORDER August 21, 2024 9:08a m verify passage of capsule September 18 9:55am Chief Complaint Admit Date pill cam August 21, 2024 8:54a m NEED ORDER August 21, 2024 9:08a m verify passage of capsule September 18 9:55am Family History No Family History Records Found Relationship Condition Age at Onset Recorded Date/T damion mother Cardiac disease Unknown Hypothyroidism Unknown father Obsessive-compulsive disorder Unknown Advance Directives No Advanced Directives Records Found Advance Directive Response Recorded Date/ Time Living Will No May 31, 2021 1:10pm Power of Spine Nurse No May 31 1:10pm Advance Directive Response Recorded Date/ Time Living Will No May 31, 2021 12:10pm Power of Spine Nurse No May 31 12:10pm Advance Directive Response Recorded Date/ Time Name of Medical Power of Spine Nurse Shayla Newton March 15, 2022 9:35pm Living Will Yes March 15, 2 022 9:35pm Power of Spine Nurse Yes March 15, 2022 9:35pm Advance Directive Response Recorded Date/ Time Name of Medical Power of Spine Nurse Shayla Glez March 15, 2022 9:35pm Living Will Yes March 18, 2 022 6:11pm Power of Spine Nurse Yes March 18, 2022 6:11pm Advance Directive Response Recorded Date/ Time Name of Medical Power of Spine Nurse Shayla Glez March 15, 2022 9:35pm Living Will No May 10, 2 023 6:57pm Power of Spine Nurse No May 10, 2022 6:57pm Advance Directive Response Recorded Date/ Time Name of Medical Power of Spine Nurse Shayla Glez March 15, 2022 9:35pm Living Will No May 25 10:22am Power of Spine Nurse No May 25, 2022 10:22am Advance Directive Response Recorded Date/ Time Living Will No May 10 7:57pm Power of Spine Nurse No May 10, 2022 7:57pm Advance Directive Response Recorded Date/ Time Living Will No May 10 6:57pm Power of Spine Nurse No May 10, 2022 6:57pm Reason for Referral Specialty Diagnoses / Procedures Referred By Contac t Referred To Contact Gastroenterology Diagnoses Elevated LFTs Hypoalbuminemia Small 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 Procedures CONSULT TO GASTROENTEROLOGY OFFICE/OUTPATIENT [facility] 60-74 MINUTES Ignacio Aguilar DO [address] [place] [address] Referral ID Status Reason Start Date Expiration Date Visits Requested Visits Authorized [id number] Authorized PCP Requested Referral 06/03/2022 06/03/2023 1 1 Specialty Diagnoses / Procedures Referred By Contac t Referred To Contact Diagnoses Iron deficiency anemia, unspecified iron deficiency anemia type Elevated serum immunoglobulin free light chains Procedures CONSULT TO HEMATOLOGY/ONCOLOGY OFFICE/OUTPATIENT [facility] 60-74 MINUTES Ignacio Aguilar DO [address] [place] [address] Referral ID Status Reason Start Date Expiration Date Visits Requested Visits Authorized [id number] Authorized PCP Requested Referral 06/03/2022 06/03/2023 1 1 Specialty Diagnoses / Procedures Referred By Contac t Referred To Contact Diagnoses Elevated CK Muscle weakness of lower extremity Procedures CONSULT TO NEUROMUSCULAR MEDIC OFFICE/OUTPATIENT [facility] 60-74 MINUTES Jenna Trevino MD [address] [address] Referral ID Status Reason Start Date Expiration Date Visits Requested Visits Authorized [id number] Authorized PCP Requested Referral 06/08/2022 06/08/2023 1 1 Specialty Diagnoses / Procedures Referred By Contac t Referred To Contact Vascular Medicine Diagnoses Edema, unspecified type Procedures CONSULT TO VASCULAR MEDICINE OFFICE/OUTPATIENT [facility] 60-74 MINUTES Jenna Trevino MD [address] [address] Referral ID Status Reason Start Date Expiration Date Visits Requested Visits Authorized [id number] Authorized PCP Requested Referral 06/08/2022 06/08/2023 1 1 Specialty Diagnoses / Procedures Referred By Sanjuac t Referred To Contact [facility] Diagnoses Lymphedema Procedures CONSULT TO LYMPHEDEMA THERAPY OFFICE/OUTPATIENT [facility] 60-74 MINUTES Yokasta Walker MD [address] [place] [address] [facility] [place] [address] Referral ID Status Reason Start Date Expiration Date Visits Requested Visits Authorized [id number] Authorized Auto-Generat ed Referral 06/21/2022 06/21/2023 1 1 Specialty Diagnoses / Procedures Referred By Deep t Referred To Contact Plastic Surgery Diagnoses Multiple myeloma not having achieved remission (HCC) Procedures CONSULT TO PLASTIC SURGERY OFFICE/OUTPATIENT [facility] 60-74 MINUTES Johanna Mandel MD [facility] [place] [address] Referral ID Status Reason Start Date Expiration Date Visits Requested Visits Authorized [id number] Authorized PCP Requested Referral 07/15/2022 07/08/2023 1 1 Specialty Diagnoses / Procedures Referred By Deep t Referred To Contact MOLECULAR & FUNCTIONAL IMAGING Diagnoses Multiple myeloma not having achieved remission (HCC) Procedures NM PET/CT WHOLE BODY INITIAL PET IMAGING FOR CT ATTENUATION WHOLE BODY Johanna Mandel MD [address] [phone] Molecular & Functional Imaging [address] [place] [address] Referral ID Status Reason Start Date Expiration Date Visits Requested Visits Authorized [id number] Pending Review Auto-Generat ed Referral 07/15/2022 08/07/2023 1 1 Specialty Diagnoses / Procedures Referred By Deep t Referred To Contact MR IMAGING Diagnoses Neoplasm of unspecified behavior of bone, soft tissue, and skin Procedures MRI PELVIS WO/W IVCON MRI PELVIS W/O & W/CONTRAST MATERIAL Johanna Mandel MD [address] [place] [address] Mr Imaging [facility]95 Referral ID Status Reason Start Date Expiration Date V isits Requested Visits Authorized [id number] Closed Auto-Generate d Referral 08/19/2022 10/18/2022 1 1 Specialty Diagnoses / Procedures Referred By Contac t Referred To Contact MR IMAGING 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, soft tissue, and skin Procedures MRI LUMBAR SPINE WO/W IVCON MRI SPINAL CANAL LUMBAR W/O & W/CONTR Johanna Sylvester MD [address] [phone] Mr Imaging [facility] Referral ID Status Reason Start Date Expiration Date V isits Requested Visits Authorized [id number] Closed Auto-Generate d Referral 08/19/2022 10/18/2022 1 1 Specialty Diagnoses / Procedures Referred By Contac t Referred To Contact MR IMAGING 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, soft tissue, and skin Procedures MRI THORACIC SPINE WO/W IVCON MRI SPINAL CANAL THORACIC W/O & W/CONTR Johanna Sylvester MD [address] [phone] Mr Imaging [facility] Referral ID Status Reason Start Date Expiration Date V isits Requested Visits Authorized [id number] Closed Auto-Generate d Referral 08/19/2022 10/18/2022 1 1 Specialty Diagnoses / Procedures Referred By Contac t Referred To Contact MR IMAGING 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, soft tissue, and skin Procedures MRI CERVICAL SPINE WO/W IVCON MRI SPINAL CANAL CERVICAL W/O & W/CONTR Johanna Sylvester MD [address] [place] [address] Mr Imaging [facility]95 Referral ID Status Reason Start Date Expiration Date V isits Requested Visits Authorized [id number] Closed Auto-Generate d Referral 08/19/2022 10/18/2022 1 1 Medications Administered Section Inactive Administered Medications - up to 3 most recent administrations Medication Order MAR Action Action Date Dose Rate Site oxyCODONE-acetaminophen 5-325 mg 1 tablet (PERCOCET) 1 tablet, ORAL, ONCE, 1 dose, On [place] 07/08/22 at 1230, TAUSSIG PROCEDURES Given 07/08/2022 12:54 PM EDT 1 tablet Summary Purpose Additional Source Comments Goals (unrecognized section and content) Goals may be documented in a n alternate sectionGoals may be documented in an alternate sectionGoals may be documented in an alternate sectionGoals may be documented in an alternate sectionGoals may be documented in an alternate sectionGoals may be documented in an alternate sectionGoals may be documented in an alternate sectionGoals may be documented in an alternate sectionGoals may be documented in an alternate sectionGoals may be documented in an alternate sectionGoals may be documented in an alternate sectionGoals may be documented in an alternate sectionGoals may be documented in an alternate sectionGoals may be documented in an alternate sectionGoals may be documented in an alternate sectionGoals may be documented in an alternate sectionGoals may be documented in an alternate sectionGoals may be documented in an alternate sectionGoals may be documented in an alternate sectionGoals may be documented in an alternate sectionGoals may be documented in an alternate sectionGoals may be documented in an alternate sectionGoals may be documented in an alternate sectionGoals may be documented in an alternate sectionGoals may be documented in an alternate sectionGoals may be documented in an alternate sectionGoals may be documented in an alternate section Care Teams (unrecognized sec tion and content) Team Status: Active Member Role Status Dates Dr. Jossie De La Rosa MD Family Provider Active Dr. Jossie De La Rosa MD Primary Care Provider Active Team Status: Inactive Member Role Status Dates Dr. Jossie De La Rosa MD Primary Care Provider, Referring P rovider Active Dr. Melecio Gil MD Attending Provider Active Team Status: Inactive Member Role Status Dates Dr. Jossie De La Rosa MD Primary Care Provider, Referring P rovider Active Dr. Hero Lawrence DO Attending Provider Active Team Status: Active Member Role Status Dates Dr. Jossie De La Rosa MD Primary Care Provider Active Dr. Robyn Calero MD Emergency Provider Active Dr. Octavio Barahona MD Attending Provider Active Team Status: Active Member Role Status Dates Dr. Jossie De La Rosa MD Primary Care Provider Active Dr. Robyn Calero MD Emergency Provider Active Dr. Octavio Barahona MD Admit Provider, Other Provider A ctive Dr. Caty Fuller MD Other Provider Active Dr. Mumtaz Jimenes MD Attending Provider, Other Provi anita Active Team Status: Active Member Role Status Dates Dr. Jossie De La Rosa MD Primary Care Provider Active Dr. Octavio Cruz MD Attending Provider Active Team Status: Active Member Role Status Dates Dr. Jossie De La Rosa MD Primary Care Provider Active Dr. Robyn Calero MD Emergency Provider Active Dr. Octavio Barahona MD Admit Provider, Other Provider A ctive Dr. Caty Fuller MD Other Provider Active Dr. Mumtaz Jimenes MD Attending Provider, Other Provi anita Active Dr. Rolando Melton MD Other Provider Active Dr. Armando Kolb MD Other Provider Active Dr. Fritz Velasquez MD Other Provider Active Dr. Yfn Chowdhury MD Other Provider Active Dr. Anil Olivares MD Other Provider Active Dr. Sanju Dick MD Other Provider Active Dr. Adria Mena DO Other Provider Active Torirosa Bryant GLASS INSERTER, GLASS INSERTER-C Other Provider Active Team Status: Active Member Role Status Dates Dr. Jossie De La Rosa MD Primary Care Provider, Referring P rovider Active Dr. Robyn Calero MD Emergency Provider Active Dr. Octavio Barahona MD Admit Provider, Other Provider A ctive Dr. Caty Fuller MD Other Provider Active Dr. Mumtaz Jimenes MD Other Provider Active Dr. Rolando Melton MD Other Provider Active Dr. Armando Kolb MD Attending Provider, Other Provide r Active Dr. Fritz Velasquez MD Other Provider Active Dr. Yfn Chowdhury MD Other Provider Active Dr. Anil Olivares MD Other Provider Active Dr. Sanju Dick MD Other Provider Active Dr. Adria Mena DO Other Provider Active Torirosa Bryant GLASS INSERTER, GLASS INSERTER-C Other Provider Active Team Status: Active Member Role Status Dates Dr. Jossie De La Rosa MD Primary Care Provider Active Dr. Robyn Calero MD Emergency Provider Active Dr. Octavio Barahona MD Admit Provider, Other Provider A ctive Dr. Caty Fuller MD Other Provider Active Dr. Rolando Melton MD Other Provider Active Dr. Armando Kolb MD Other Provider Active Dr. Fritz Velasquez MD Other Provider Active Dr. Yfn Chowdhury MD Other Provider Active Dr. Anil Olivares MD Other Provider Active Dr. Sanju Dick MD Other Provider Active Dr. Adria Mena DO Other Provider Active Tori Bryant GLASS INSERTER, GLASS INSERTER-C Other Provider Active Dr. Angela Shah MD Attending Provider, Other Provid er Active Dr. Mumtaz Jimenes MD Other Provider Active Team Status: Inactive Member Role Status Dates Dr. Jossie De La Rosa MD Primary Care Provider Active Codie Hernandez NP-C Attending Provider, Referring Pr ovider Active Team Status: Inactive Member Role Status Dates Dr. Jossie De La Rosa MD Primary Care Provide r, Attending Provider, Referring Provider Active Team Status: Inactive Member Role Status Dates Dr. Jossie De La Rosa MD Primary Care Provider, Attending P rovider Active Team Status: Inactive Member Role Status Dates Dr. Jossie De La Rosa MD Primary Care Provider Active Dr. Hero Lawrence DO Attending Provider Active Team Status: Inactive Member Role Status Dates Dr. Jossie De La Rosa MD Primary Care Provider Active Dr. Robyn Calero MD Emergency Provider Active Dr. Octavio Barahona MD Admit Provider, Other Provider A ctive Dr. Caty Fuller MD Other Provider Active Dr. Rolando Melton MD Other Provider Active Dr. Armando Kolb MD Other Provider Active Dr. Fritz Velasquez MD Other Provider Active Dr. Yfn Chowdhury MD Other Provider Active Dr. Anil Olivares MD Other Provider Active Dr. Sanju Dick MD Other Provider Active Dr. Adria Mena DO Other Provider Active Tori Bryant GLASS INSERTER, GLASS INSERTER-C Other Provider Active Dr. Angela Shah MD Attending Provider Active Dr. Mumtaz Jimenes MD Other Provider Active Team Status: Inactive Member Role Status Dates Dr. Jossie De La Rosa MD Primary Care Provider Active Vilma Urbina NP-C Attending Provider Active Team Status: Inactive Member Role Status Dates Dr. Jossie De La Rosa MD Primary Care Provider Active Dr. Yefri Shaw DO Emergency Provider Active Team Status: Inactive Member Role Status Dates Dr. Jossie De La Rosa MD Primary Care Provider, Referring P rovider Active Dr. Armando Kolb MD Attending Provider Active Team Status: Active Member Role Status Dates Dr. Jossie De La Rosa MD Primary Care Provide r, Attending Provider, Referring Provider Active Team Status: Inactive Member Role Status Dates Dr. Jossie De La Rosa MD Primary Care Provider Active Dr. Yefri Shaw DO Attending Provider, Emergency Provider Active Team Status: Inactive Member Role Status Dates Dr. Jossie De La Rosa MD Primary Care Provider Active Dr. Radha Bello DO Attending Provider Active Team Status: Active Member Role Status Dates Dr. Jossie De La Rosa MD Primary Care Provider, Attending Lynette bui Active Team Status: Active Member Role Status Dates Dr. Jossie De La Rosa MD Primary Care Provider Active Dr. Armando Kolb MD Attending Provider, Referring Pro vider Active Music Researcher Relationship Specialty Start Date End Date Jossie De La Rosa MD PCP - General Family Medicine 02/07/12 Music Researcher Relationship Specialty Start Date End Date Jossie De La Rosa MD PCP - General Family Medicine 02/07/12 Music Researcher Relationship Specialty Start Date End Date Jossie De La Rosa MD PCP - General Family Medicine 02/07/12 Music Researcher Relationship Specialty Start Date End Date Jossie De La Rosa MD PCP - General Family Medicine 02/07/12 Music Researcher Relationship Specialty Start Date End Date Jossie De La Rosa MD PCP - General Family Medicine 02/07/12 Music Researcher Relationship Specialty Start Date End Date Jossie De La Rosa MD PCP - General Family Medicine 02/07/12 Music Researcher Relationship Specialty Start Date End Date Jossie De La Rosa MD PCP - General Family Medicine 02/07/12 Music Researcher Relationship Specialty Start Date End Date Jossie De La Rosa MD PCP - General Family Medicine 02/07/12 Music Researcher Relationship Specialty Start Date End Date Jossie De La Rosa MD PCP - General Family Medicine 02/07/12 Music Researcher Relationship Specialty Start Date End Date Jossie De La Rosa MD PCP - General Family Medicine 02/07/12 [place] [address] [place] [address] Specialty 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 Hematology/Oncology 07/08/22 Music Researcher Relationship Specialty Start Date End Date Jossie De La Rosa MD PCP - General Family Medicine 02/07/12 [place] [address] [place] [address] Specialty 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 Hematology/Oncology 07/08/22 Music Researcher Relationship Specialty Start Date End Date Jossie De La Rosa MD PCP - General Family Medicine 02/07/12 [place] [address] [place] [address] Specialty 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 Hematology/Oncology 07/08/22 Music Researcher Relationship Specialty Start Date End Date Jossie De La Rosa MD PCP - General Family Medicine 02/07/12 Elisa Webster, JOHN [address] [place] [address] Specialty 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 Hematology/Oncology 07/08/22 Music Researcher Relationship Specialty Start Date End Date Jossie De La Rosa MD PCP - General Family Medicine 02/07/12 [place] [address] [place] [address] Specialty 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 Hematology/Oncology 07/08/22 Music Researcher Relationship Specialty Start Date End Date Jossie De La Rosa MD PCP - General Family Medicine 02/07/12 [place] [address] [place] [address] Specialty 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 Hematology/Oncology 07/08/22 Music Researcher Relationship Specialty Start Date End Date Jossie De La Rosa MD PCP - General Family Medicine 02/07/12 Elisa Webster, JOHN [address] [place] [address] Specialty 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 Hematology/Oncology 07/08/22 Music Researcher Relationship Specialty Start Date End Date Jossie De La Rosa MD PCP - General Family Medicine 02/07/12 Elisa Webster, JOHN [address] [place] [address] Specialty 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 Hematology/Oncology 07/08/22 Music Researcher Relationship Specialty Start Date End Date Jossie De La Rosa MD PCP - General Family Medicine 02/07/12 Elisa Webster, JOHN [address] [place] [address] Specialty 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 Hematology/Oncology 07/08/22 Music Researcher Relationship Specialty Start Date End Date Jossie De La Rosa MD PCP - General Family Medicine 02/07/12 Elisa Webster, JOHN [address] [place] [address] Specialty 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 Hematology/Oncology 07/08/22 Music Researcher Relationship Specialty Start Date End Date Jossie De La Rosa MD PCP - General Family Medicine 02/07/12 Elisa Webster, JOHN [address] [place] [address] Specialty 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 Hematology/Oncology 07/08/22 Bev Quinn, RD [address], [place] [address] Registered Dietitian Nutrition 09/09/22 Music Researcher Relationship Specialty Start Date End Date Jossie De La Rosa MD PCP - General Family Medicine 02/07/12 [place] [address] [place] [address] Specialty 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 Hematology/Oncology 07/08/[address] [place] [id number] Registered Dietitian Nutrition 09/09/22 Music Researcher Relationship Specialty Start Date End Date Jossie De La Rosa MD PCP - General Family Medicine 02/07/12 Elisa Webster, JOHN [address] [place] [address] Specialty 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 Hematology/Oncology 07/08/[address] [place] [id number] Registered Dietitian Nutrition 09/09/22 Music Researcher Relationship Specialty Start Date End Date Jossie De La Rosa MD PCP - General Family Medicine 02/07/12 Elisa Webster, JOHN [address] [place] [address] Specialty 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 Hematology/Oncology 07/08/[address] [place] [id number] Registered Dietitian Nutrition 09/09/22 Music Researcher Relationship Specialty Start Date End Date Jossie De La Rosa MD PCP - General Family Medicine 02/07/12 Elisa Webster, JOHN [address] [place] [address] Specialty 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 Hematology/Oncology 07/08/[address] [place] [id number] Registered Dietitian Nutrition 09/09/22 Team Status: Inactive Member Role Status Dates Dr. Jossie De La Rosa MD Primary Care Provider Active MELISSA MARTIN Attending Provider Active Music Researcher Relationship Specialty Start Date End Date Jossie De La Rosa MD PCP - General Family Medicine 02/07/12 [place] [address] [place] [address] Specialty 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 Hematology/Oncology 07/08/[address] [place] [address] Registered Dietitian Nutrition 09/09/22 Team Status: Inactive Member Role Status Dates Dr. Jossie De La Rosa MD Primary Care Provider Active Dr. Jc Torres Attending Provider, Referring Provi anita Active Music Researcher Relationship Specialty Start Date End Date Jossie De La Rosa MD PCP - General Family Medicine 02/07/12 Elisa Webster, JOHN [address] [place] [address] Specialty 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 Hematology/Oncology 07/08/[address] [place] [id number] Registered Dietitian Nutrition 09/09/22 Music Researcher Relationship Specialty Start Date End Date Jossie De La Rosa MD PCP - General Family Medicine 02/07/12 [place] [address] [place] [address] Specialty 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 Hematology/Oncology 07/08/[address] [place] [id number] Registered Dietitian Nutrition 09/09/22 Music Researcher Relationship Specialty Start Date End Date Jossie De La Rosa MD PCP - General Family Medicine 02/07/12 [place] [address] [place] [address] Specialty 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 Hematology/Oncology 07/08/[address] [place] [address] Registered Dietitian Nutrition 09/09/22 Music Researcher Relationship Specialty Start Date End Date Jossie De La Rosa MD PCP - General Family Medicine 02/07/12 Elisa Webster, JOHN [address] [place] [address] Specialty 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 Hematology/Oncology 07/08/[address] [place] [address] Registered Dietitian Nutrition 09/09/22 Music Researcher Relationship Specialty Start Date End Date Jossie De La Rosa MD PCP - General Family Medicine 02/07/12 Elisa Webster, JOHN [address] [place] [address] Specialty 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 Hematology/Oncology 07/08/22 Team Status: Inactive Member Role Status Dates Dr. Jossie De La Rosa MD Primary Care Provider Active Start: March 07, 2024 End: March 07, 2024 Dr. Jossie De La Rosa MD Attending Provider Active St art: March 07, 2024 End: March 07, 2024 Dr. Jossie De La Rosa MD Referring Provider Active art: March 07, 2024 End: March 07, 2024 Team Status: Inactive Member Role Status Dates Dr. Jossie De La Rosa MD Primary Care Provider Active Start: March 08, 2024 End: March 08, 2024 Dr. Jossie De La Rosa MD Attending Provider Active St art: March 08, 2024 End: March 08, 2024 Dr. Jossie De La Rosa MD Referring Provider Active St art: March 08, 2024 End: March 08, 2024 Team Status: Inactive Member Role Status Dates Dr. Jossie De La Rosa MD Primary Care Provider Active Start: March 09, 2024 End: March 09, 2024 Dr. Jossie De La Rosa MD Attending Provider Active St art: March 09, 2024 End: March 09, 2024 Dr. Jossie De La Rosa MD Referring Provider Active St art: March 09, 2024 End: March 09, 2024 Team Status: Inactive Member Role Status Dates Dr. Jossie De La Rosa MD Primary Care Provider Active Start: April 05, 2024 End: April 05, 2024 Dr. Jc Torres Attending Provider Active Sta rt: April 05, 2024 End: April 05, 2024 Dr. Jc Torres Referring Provider Active Sta rt: April 05, 2024 End: April 05, 2024 Team Status: Inactive Member Role Status Dates Dr. Jossie De La Rosa MD Primary Care Provider Active Start: May 16, 2024 End: May 16, 2024 Dr. Jossie De La Rosa MD Attending Provider Active St art: May 16, 2024 End: May 16, 2024 Dr. Jossie De La Rosa MD Referring Provider Active St art: May 16, 2024 End: May 16, 2024 Team Status: Inactive Member Role Status Dates Dr. Jossie De La Rosa MD Primary Care Provider Active Start: May 29, 2024 End: May 29, 2024 Dr. Jc Torres Attending Provider Active Sta rt: May 29, 2024 End: May 29, 2024 Dr. Jc Torres Referring Provider Active Sta rt: May 29, 2024 End: May 29, 2024 Team Status: Inactive Member Role Status Dates Dr. Jossie De La Rosa MD Primary Care Provider Active Start: June 13, 2024 End: June 13, 2024 Dr. Jossie De La Rosa MD Attending Provider Active St art: June 13, 2024 End: June 13, 2024 Dr. Jossie De La Rosa MD Referring Provider Active St art: June 13, 2024 End: June 13, 2024 Team Status: Inactive Member Role Status Dates Dr. Jossie De La Rosa MD Primary Care Provider Active Start: June 27, 2024 End: June 27, 2024 Dr. Jossie De La Rosa MD Referring Provider Active St art: June 27, 2024 End: June 27, 2024 MITZY Vasquez Attending Provider Active Start: June 27, 2024 End: June 27, 2024 Team Status: Inactive Member Role Status Dates Dr. Jossie De La Rosa MD Primary Care Provider Active Start: June 27, 2024 End: June 27, 2024 MITZY Vasquez Attending Provider Active Start: June 27, 2024 End: June 27, 2024 MITZY Vasquez Referring Provider Active Start: June 27, 2024 End: June 27, 2024 Music Researcher Relationship Specialty Start Date End Date Jossie De La Rosa MD PCP - General Family Medicine 02/07/12 [place] [address] [place] [address] Specialty 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 Hematology/Oncology 07/08/[address] [place] [address] Registered Dietitian Nutrition 09/09/22 Music Researcher Relationship Specialty Start Date End Date Jossie De La Rosa MD PCP - General Family Medicine 02/07/12 [place] [address] [place] [address] Specialty 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 Hematology/Oncology 07/08/[address] [place], [place] [id number] Registered Dietitian Nutrition 09/09/22 Music Researcher Relationship Specialty Start Date End Date Jossie De La Rosa MD PCP - General Family Medicine 02/07/12 Elisa Webster, JOHN [address] [place] [address] Specialty 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 Hematology/Oncology 07/08/[address] [place] [address] Registered Dietitian Nutrition 09/09/22 Music Researcher Relationship Specialty Start Date End Date Jossie De La Rosa MD PCP - General Family Medicine 02/07/12 [place] [address] [place] [address] Specialty 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 Hematology/Oncology 07/08/[address] [place] [address] Registered Dietitian Nutrition 09/09/22 Music Researcher Relationship Specialty Start Date End Date Jossie De La Rosa MD PCP - General Family Medicine 02/07/12 [place] [address] [place] [address] Specialty 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 Hematology/Oncology 07/08/[address] [place] [address] Registered Dietitian Nutrition 09/09/22 Music Researcher Relationship Specialty Start Date End Date Jossie De La Rosa MD PCP - General Family Medicine 02/07/12 [place] [address] [place] [address] Specialty 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 Hematology/Oncology 07/08/[address] [place] [address] Registered Dietitian Nutrition 09/09/22 Team Status: Inactive Member Role Status Dates Dr. Jossie De La Rosa MD Primary Care Provider Active Start: August 21, 2024 End: August 21, 2024 Dr. Jossie De La Rosa MD Referring Provider Active St art: August 21, 2024 End: August 21, 2024 Dr. Hero Lawrence DO Attending Provider Active Start: August 21, 2024 End: August 21, 2024 Team Status: Active Member Role Status Dates Dr. Jossie De La Rosa MD Primary Care Provider Active Start: August 21, 2024 Dr. Jossie De La Rosa MD Attending Provider Active St art: August 21, 2024 Dr. Jossie De La Rosa MD Referring Provider Active St art: August 21, 2024 Team Status: Inactive Member Role Status Dates Dr. Jossie De La Rosa MD Primary Care Provider Active Start: August 21, 2024 End: August 21, 2024 Dr. Jossie De La Rosa MD Attending Provider Active St art: August 21, 2024 End: August 21, 2024 Dr. Jossie De La Rosa MD Referring Provider Active St art: August 21, 2024 End: August 21, 2024 Music Researcher Relationship Specialty Start Date End Date Jossie De La Rosa MD PCP - General Family Medicine 02/07/12 [place] [address] [place] [address] Specialty 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 Hematology/Oncology 07/08/[address] [place] [address] Registered Dietitian Nutrition 09/09/22 Team Status: Active Member Role/Relationship Status Dates Dr. Jossie De La Rosa MD Family Provider Active Dr. Jossie De La Rosa MD Primary Care Provider Active Team Status: Inactive Member Role/Relationship Status Dates Dr. Jossie De La Rosa MD Primary Care Provider Active Start: May 29, 2024 End: May 29, 2024 Dr. Jc Torres Attending Provider Active Sta rt: May 29, 2024 End: May 29, 2024 Dr. Jc Torres Referring Provider Active Sta rt: May 29, 2024 End: May 29, 2024 Team Status: Inactive Member Role/Relationship Status Dates Dr. Jossie De La Rosa MD Primary Care Provider Active Start: June 13, 2024 End: June 13, 2024 Dr. Jossie De La Rosa MD Attending Provider Active St art: June 13, 2024 End: June 13, 2024 Dr. Jossie De La Rosa MD Referring Provider Active St art: June 13, 2024 End: June 13, 2024 Team Status: Inactive Member Role/Relationship Status Dates Dr. Jossie De La Rosa MD Primary Care Provider Active Start: June 27, 2024 End: June 27, 2024 Dr. Jossie De La Rosa MD Referring Provider Active St art: June 27, 2024 End: June 27, 2024 MTIZY Vasquez Attending Provider Active Start: June 27, 2024 End: June 27, 2024 Team Status: Inactive Member Role/Relationship Status Dates Dr. Jossie De La Rosa MD Primary Care Provider Active Start: June 27, 2024 End: June 27, 2024 PADMINI VasquezC Attending Provider Active Start: June 27, 2024 End: June 27, 2024 MITZY Vasquez Referring Provider Active Start: June 27, 2024 End: June 27, 2024 Team Status: Inactive Member Role/Relationship Status Dates Dr. Jossie De La Rosa MD Primary Care Provider Active Start: August 21, 2024 End: August 21, 2024 Dr. Jossie De La Rosa MD Referring Provider Active St art: August 21, 2024 End: August 21, 2024 Dr. Hero Lawrence DO Attending Provider Active Start: August 21, 2024 End: August 21, 2024 Team Status: Inactive Member Role/Relationship Status Dates Dr. Jossie De La Rosa MD Primary Care Provider Active Start: August 21, 2024 End: August 21, 2024 Dr. Jossie De La Rosa MD Attending Provider Active St art: August 21, 2024 End: August 21, 2024 Dr. Jossie De La Rosa MD Referring Provider Active St art: August 21, 2024 End: August 21, 2024 Team Status: Inactive Member Role/Relationship Status Dates Dr. Jossie De La Rosa MD Primary Care Provider Active Start: September 18, 2024 End: September 18, 2024 MITZY Vasquez Attending Provider Active Start: September 18, 2024 End: September 18, 2024 MITZY Vasquez Referring Provider Active Start: September 18, 2024 End: September 18, 2024 Music Researcher Relationship Specialty Start Date End Date Jossie De La Rosa MD PCP - General Family Medicine 02/07/12 Elisa Webster, [address] [address] [place] [address] Specialty 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 Hematology/Oncology 07/08/[address] [place] [address] Registered Dietitian Nutrition 09/09/22 Team Status: Inactive Member Role/Relationship Status Dates Dr. Jossie De La Rosa MD Primary Care Provider Active Start: June 13, 2024 End: June 13, 2024 Dr. Jossie De La Rosa MD Attending Provider Active St art: June 13, 2024 End: June 13, 2024 Dr. Jossie De La Rosa MD Referring Provider Active St art: June 13, 2024 End: June 13, 2024 Team Status: Inactive Member Role/Relationship Status Dates Dr. Jossie De La Rosa MD Primary Care Provider Active Start: June 27, 2024 End: June 27, 2024 Dr. Jossie De La Rosa MD Referring Provider Active St art: June 27, 2024 End: June 27, 2024 MITZY Vasquez Attending Provider Active Start: June 27, 2024 End: June 27, 2024 Team Status: Inactive Member Role/Relationship Status Dates Dr. Jossie De La Rosa MD Primary Care Provider Active Start: June 27, 2024 End: June 27, 2024 MITZY Vasquez Attending Provider Active Start: June 27, 2024 End: June 27, 2024 MITZY Vasquez Referring Provider Active Start: June 27, 2024 End: June 27, 2024 Team Status: Inactive Member Role/Relationship Status Dates Dr. Jossie De La Rosa MD Primary Care Provider Active Start: August 21, 2024 End: August 21, 2024 Dr. Jossie De La Rosa MD Referring Provider Active St art: August 21, 2024 End: August 21, 2024 Dr. Hero Lawrence DO Attending Provider Active Start: August 21, 2024 End: August 21, 2024 Team Status: Inactive Member Role/Relationship Status Dates Dr. Jossie De La Rosa MD Primary Care Provider Active Start: August 21, 2024 End: August 21, 2024 Dr. Jossie De La Rosa MD Attending Provider Active St art: August 21, 2024 End: August 21, 2024 Dr. Jossie De La Rosa MD Referring Provider Active St art: August 21, 2024 End: August 21, 2024 Team Status: Inactive Member Role/Relationship Status Dates Dr. Jossie De La Rosa MD Primary Care Provider Active Start: September 18, 2024 End: September 18, 2024 MITZY Vasquez Attending Provider Active Start: September 18, 2024 End: September 18, 2024 MITZY Vasquez Referring Provider Active Start: September 18, 2024 End: September 18, 2024 Team Status: Inactive Member Role/Relationship Status Dates Dr. Jossie De La Rosa MD Primary Care Provider Active Start: September 27, 2024 End: September 27, 2024 Dr. Jc Torres Attending Provider Active Sta rt: September 27, 2024 End: September 27, 2024 Dr. Jc Torres Referring Provider Active Sta rt: September 27, 2024 End: September 27, 2024 Music Researcher Relationship Specialty Start Date End Date Jossie De La Rosa MD PCP - General Family Medicine 02/07/12 Elisa [address], [address] [address] [place] [address] Specialty 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 Hematology/Oncology 07/08/[address] [place] [address] Registered Dietitian Nutrition 09/09/22 Team Status: Inactive Member Role/Relationship Status Dates Dr. Jossie De La Rosa MD Primary Care Provider Active Start: June 27, 2024 End: June 27, 2024 Dr. Jossie De La Rosa MD Referring Provider Active St art: June 27, 2024 End: June 27, 2024 MITZY Vasquez Attending Provider Active Start: June 27, 2024 End: June 27, 2024 Team Status: Inactive Member Role/Relationship Status Dates Dr. Jossie De La Rosa MD Primary Care Provider Active Start: June 27, 2024 End: June 27, 2024 Robyn Ray NP-C Attending Provider Active Start: June 27, 2024 End: June 27, 2024 Robyn Ray NP-C Referring Provider Active Start: June 27, 2024 End: June 27, 2024 Team Status: Inactive Member Role/Relationship Status Dates Dr. Jossie De La Rosa MD Primary Care Provider Active Start: August 21, 2024 End: August 21, 2024 Dr. Jossie De La Rosa MD Referring Provider Active St art: August 21, 2024 End: August 21, 2024 Dr. Hero Lawrence DO Attending Provider Active Start: August 21, 2024 End: August 21, 2024 Team Status: Inactive Member Role/Relationship Status Dates Dr. Jossie De La Rosa MD Primary Care Provider Active Start: August 21, 2024 End: August 21, 2024 Dr. Jossie De La Rosa MD Attending Provider Active St art: August 21, 2024 End: August 21, 2024 Dr. Jossie De La Rosa MD Referring Provider Active St art: August 21, 2024 End: August 21, 2024 Team Status: Inactive Member Role/Relationship Status Dates Dr. Jossie De La Rosa MD Primary Care Provider Active Start: September 18, 2024 End: September 18, 2024 Robyn Ray NP-C Attending Provider Active Start: September 18, 2024 End: September 18, 2024 Robyn Ray NP-C Referring Provider Active Start: September 18, 2024 End: September 18, 2024 Team Status: Inactive Member Role/Relationship Status Dates Dr. Jossie De La Rosa MD Primary Care Provider Active Start: September 27, 2024 End: September 27, 2024 Dr. Jc Torres Attending Provider Active Sta rt: September 27, 2024 End: September 27, 2024 Dr. Jc Torres Referring Provider Active Sta rt: September 27, 2024 End: September 27, 2024 Team Status: Inactive Member Role/Relationship Status Dates Dr. Jossie De La Rosa MD Primary Care Provider Active Start: October 18, 2024 End: October 18, 2024 Dr. Jc Torres Attending Provider Active Sta rt: October 18, 2024 End: October 18, 2024 Dr. Jc Torres Referring Provider Active Sta rt: October 18, 2024 End: October 18, 2024 Team Status: Inactive Member Role/Relationship Status Dates Dr. Jossie De La Rosa MD Primary Care Provider Active Start: August 21, 2024 End: August 21, 2024 Dr. Jossie De La Rosa MD Referring Provider Active St art: August 21, 2024 End: August 21, 2024 Dr. Hreo Lawrence DO Attending Provider Active Start: August 21, 2024 End: August 21, 2024 Team Status: Inactive Member Role/Relationship Status Dates Dr. Jossie De La Rosa MD Primary Care Provider Active Start: August 21, 2024 End: August 21, 2024 Dr. Jossie De La Rosa MD Attending Provider Active St art: August 21, 2024 End: August 21, 2024 Dr. Jossie De La Rosa MD Referring Provider Active St art: August 21, 2024 End: August 21, 2024 Team Status: Inactive Member Role/Relationship Status Dates Dr. Jossie De La Rosa MD Primary Care Provider Active Start: September 18, 2024 End: September 18, 2024 MITZY Vasquez Attending Provider Active Start: September 18, 2024 End: September 18, 2024 MITZY Vasquez Referring Provider Active Start: September 18, 2024 End: September 18, 2024 Team Status: Inactive Member Role/Relationship Status Dates Dr. Jossie De La Rosa MD Primary Care Provider Active Start: September 27, 2024 End: September 27, 2024 Dr. Jc Torres Attending Provider Active Sta rt: September 27, 2024 End: September 27, 2024 Dr. Jc Torres Referring Provider Active Sta rt: September 27, 2024 End: September 27, 2024 Team Status: Inactive Member Role/Relationship Status Dates Dr. Jossie De La Rosa MD Primary Care Provider Active Start: October 18, 2024 End: October 18, 2024 Dr. Jc Torres Attending Provider Active Sta rt: October 18, 2024 End: October 18, 2024 Dr. Jc Torres Referring Provider Active Sta rt: October 18, 2024 End: October 18, 2024 Team Status: Inactive Member Role/Relationship Status Dates Dr. Jossie De La Rosa MD Primary Care Provider Active Start: November 20, 2024 End: November 20, 2024 Jorden Madera GLASS INSERTER, GLASS INSERTER-C Attending Provider Active Start: November 20, 2024 End: November 20, 2024 Source Comments (unrecognize d section and content) In the event this informatio n is protected by the Federal Confidentiality of Alcohol and Drug Abuse Patient Records regulations: The Federal rules restrict any use of the information to criminally investigate or prosecute any alcohol or drug abuse patient.[facility] the event this information is protected by the Federal Confidentiality of Alcohol and Drug Abuse Patient Records regulations: The Federal rules restrict any use of the information to criminally investigate or prosecute any alcohol or drug abuse patient.[facility] HospitalIn the event this information is protected by the Federal Confidentiality of Alcohol and Drug Abuse Patient Records regulations: The Federal rules restrict any use of the information to criminally investigate or prosecute any alcohol or drug abuse patient.[facility] HospitalIn the event this information is protected by the Federal Confidentiality of Alcohol and Drug Abuse Patient Records regulations: The Federal rules restrict any use of the information to criminally investigate or prosecute any alcohol or drug abuse patient.[facility] HospitalIn the event this information is protected by the Federal Confidentiality of Alcohol and Drug Abuse Patient Records regulations: The Federal rules restrict any use of the information to criminally investigate or prosecute any alcohol or drug abuse patient.[facility] HospitalIn the event this information is protected by the Federal Confidentiality of Alcohol and Drug Abuse Patient Records regulations: The Federal rules restrict any use of the information to criminally investigate or prosecute any alcohol or drug abuse patient.[facility] HospitalIn the event this information is protected by the Federal Confidentiality of Alcohol and Drug Abuse Patient Records regulations: The Federal rules restrict any use of the information to criminally investigate or prosecute any alcohol or drug abuse patient.[facility] HospitalIn the event this information is protected by the Federal Confidentiality of Alcohol and Drug Abuse Patient Records regulations: The Federal rules restrict any use of the information to criminally investigate or prosecute any alcohol or drug abuse patient.[facility] HospitalIn the event this information is protected by the Federal Confidentiality of Alcohol and Drug Abuse Patient Records regulations: The Federal rules restrict any use of the information to criminally investigate or prosecute any alcohol or drug abuse patient.[facility] HospitalIn the event this information is protected by the Federal Confidentiality of Alcohol and Drug Abuse Patient Records regulations: The Federal rules restrict any use of the information to criminally investigate or prosecute any alcohol or drug abuse patient.[facility] HospitalIn the event this information is protected by the Federal Confidentiality of Alcohol and Drug Abuse Patient Records regulations: The Federal rules restrict any use of the information to criminally investigate or prosecute any alcohol or drug abuse patient.[facility] HospitalIn the event this information is protected by the Federal Confidentiality of Alcohol and Drug Abuse Patient Records regulations: The Federal rules restrict any use of the information to criminally investigate or prosecute any alcohol or drug abuse patient.[facility] HospitalIn the event this information is protected by the Federal Confidentiality of Alcohol and Drug Abuse Patient Records regulations: The Federal rules restrict any use of the information to criminally investigate or prosecute any alcohol or drug abuse patient.[facility] HospitalIn the event this information is protected by the Federal Confidentiality of Alcohol and Drug Abuse Patient Records regulations: The Federal rules restrict any use of the information to criminally investigate or prosecute any alcohol or drug abuse patient.[facility] HospitalIn the event this information is protected by the Federal Confidentiality of Alcohol and Drug Abuse Patient Records regulations: The Federal rules restrict any use of the information to criminally investigate or prosecute any alcohol or drug abuse patient.[facility] HospitalIn the event this information is protected by the Federal Confidentiality of Alcohol and Drug Abuse Patient Records regulations: The Federal rules restrict any use of the information to criminally investigate or prosecute any alcohol or drug abuse patient.[facility] HospitalIn the event this information is protected by the Federal Confidentiality of Alcohol and Drug Abuse Patient Records regulations: The Federal rules restrict any use of the information to criminally investigate or prosecute any alcohol or drug abuse patient.[facility] HospitalIn the event this information is protected by the Federal Confidentiality of Alcohol and Drug Abuse Patient Records regulations: The Federal rules restrict any use of the information to criminally investigate or prosecute any alcohol or drug abuse patient.[facility] HospitalIn the event this information is protected by the Federal Confidentiality of Alcohol and Drug Abuse Patient Records regulations: The Federal rules restrict any use of the information to criminally investigate or prosecute any alcohol or drug abuse patient.[facility] HospitalIn the event this information is protected by the Federal Confidentiality of Alcohol and Drug Abuse Patient Records regulations: The Federal rules restrict any use of the information to criminally investigate or prosecute any alcohol or drug abuse patient.[facility] HospitalIn the event this information is protected by the Federal Confidentiality of Alcohol and Drug Abuse Patient Records regulations: The Federal rules restrict any use of the information to criminally investigate or prosecute any alcohol or drug abuse patient.[facility] HospitalIn the event this information is protected by the Federal Confidentiality of Alcohol and Drug Abuse Patient Records regulations: The Federal rules restrict any use of the information to criminally investigate or prosecute any alcohol or drug abuse patient.[facility] HospitalIn the event this information is protected by the Federal Confidentiality of Alcohol and Drug Abuse Patient Records regulations: The Federal rules restrict any use of the information to criminally investigate or prosecute any alcohol or drug abuse patient.[facility] HospitalIn the event this information is protected by the Federal Confidentiality of Alcohol and Drug Abuse Patient Records regulations: The Federal rules restrict any use of the information to criminally investigate or prosecute any alcohol or drug abuse patient.[facility] HospitalIn the event this information is protected by the Federal Confidentiality of Alcohol and Drug Abuse Patient Records regulations: The Federal rules restrict any use of the information to criminally investigate or prosecute any alcohol or drug abuse patient.[facility] HospitalIn the event this information is protected by the Federal Confidentiality of Alcohol and Drug Abuse Patient Records regulations: The Federal rules restrict any use of the information to criminally investigate or prosecute any alcohol or drug abuse patient.[facility] HospitalIn the event this information is protected by the Federal Confidentiality of Alcohol and Drug Abuse Patient Records regulations: The Federal rules restrict any use of the information to criminally investigate or prosecute any alcohol or drug abuse patient.[facility] HospitalIn the event this information is protected by the Federal Confidentiality of Alcohol and Drug Abuse Patient Records regulations: The Federal rules restrict any use of the information to criminally investigate or prosecute any alcohol or drug abuse patient.[facility] HospitalIn the event this information is protected by the Federal Confidentiality of Alcohol and Drug Abuse Patient Records regulations: The Federal rules restrict any use of the information to criminally investigate or prosecute any alcohol or drug abuse patient.[facility] HospitalIn the event this information is protected by the Federal Confidentiality of Alcohol and Drug Abuse Patient Records regulations: The Federal rules restrict any use of the information to criminally investigate or prosecute any alcohol or drug abuse patient.[facility] HospitalIn the event this information is protected by the Federal Confidentiality of Alcohol and Drug Abuse Patient Records regulations: The Federal rules restrict any use of the information to criminally investigate or prosecute any alcohol or drug abuse patient.[facility] HospitalIn the event this information is protected by the Federal Confidentiality of Alcohol and Drug Abuse Patient Records regulations: The Federal rules restrict any use of the information to criminally investigate or prosecute any alcohol or drug abuse patient.[facility] HospitalIn the event this information is protected by the Federal Confidentiality of Alcohol and Drug Abuse Patient Records regulations: The Federal rules restrict any use of the information to criminally investigate or prosecute any alcohol or drug abuse patient.[facility] HospitalIn the event this information is protected by the Federal Confidentiality of Alcohol and Drug Abuse Patient Records regulations: The Federal rules restrict any use of the information to criminally investigate or prosecute any alcohol or drug abuse patient.[facility] HospitalIn the event this information is protected by the Federal Confidentiality of Alcohol and Drug Abuse Patient Records regulations: The Federal rules restrict any use of the information to criminally investigate or prosecute any alcohol or drug abuse patient.[facility] HospitalIn the event this information is protected by the Federal Confidentiality of Alcohol and Drug Abuse Patient Records regulations: The Federal rules restrict any use of the information to criminally investigate or prosecute any alcohol or drug abuse patient.[facility] HospitalIn the event this information is protected by the Federal Confidentiality of Alcohol and Drug Abuse Patient Records regulations: The Federal rules restrict any use of the information to criminally investigate or prosecute any alcohol or drug abuse patient.[facility] HospitalIn the event this information is protected by the Federal Confidentiality of Alcohol and Drug Abuse Patient Records regulations: The Federal rules restrict any use of the information to criminally investigate or prosecute any alcohol or drug abuse patient.[facility] HospitalIn the event this information is protected by the Federal Confidentiality of Alcohol and Drug Abuse Patient Records regulations: The Federal rules restrict any use of the information to criminally investigate or prosecute any alcohol or drug abuse patient.[facility] HospitalIn the event this information is protected by the Federal Confidentiality of Alcohol and Drug Abuse Patient Records regulations: The Federal rules restrict any use of the information to criminally investigate or prosecute any alcohol or drug abuse patient.[facility] HospitalIn the event this information is protected by the Federal Confidentiality of Alcohol and Drug Abuse Patient Records regulations: The Federal rules restrict any use of the information to criminally investigate or prosecute any alcohol or drug abuse patient.[facility] HospitalIn the event this information is protected by the Federal Confidentiality of Alcohol and Drug Abuse Patient Records regulations: The Federal rules restrict any use of the information to criminally investigate or prosecute any alcohol or drug abuse patient.[facility] HospitalIn the event this information is protected by the Federal Confidentiality of Alcohol and Drug Abuse Patient Records regulations: The Federal rules restrict any use of the information to criminally investigate or prosecute any alcohol or drug abuse patient.[facility] HospitalIn the event this information is protected by the Federal Confidentiality of Alcohol and Drug Abuse Patient Records regulations: The Federal rules restrict any use of the information to criminally investigate or prosecute any alcohol or drug abuse patient.[facility] HospitalIn the event this information is protected by the Federal Confidentiality of Alcohol and Drug Abuse Patient Records regulations: The Federal rules restrict any use of the information to criminally investigate or prosecute any alcohol or drug abuse patient.[facility] Reason for Visit (unrecogniz ed section and content) Reason Comments hypoalbuminemia Reason Comments Multiple Concerns NCS INTAKE VIA ZOOM Specialty Diagnoses / Procedures Referred By Contac t Referred To Contact Self Referral ID Status Reason Start Date Expiration Date V isits Requested Visits Authorized [id number] Outside PCP 06/04/2022 08/03/2022 1 1 Reason Comments Orders Reason Comments New IBD Reason Comments Consult Swelling bilateral l egs Specialty Diagnoses / Procedures Referred By Contac t Referred To Contact Vascular Medicine Diagnoses Edema, unspecified type Procedures CONSULT TO VASCULAR MEDICINE OFFICE/OUTPATIENT [facility] 60-74 MINUTES Jenna Trevino MD [address] [place] [address] Referral ID Status Reason Start Date Expiration Date V isits Requested Visits Authorized [id number] Closed PCP Requested Referral 06/08/2022 06/08/2023 1 1 Reason Comments New Patient Specialty Diagnoses / Procedures Referred By Contac t Referred To Contact Diagnoses Elevated CK Muscle weakness of lower extremity Procedures CONSULT TO NEUROMUSCULAR MEDIC OFFICE/OUTPATIENT [facility] 60-74 MINUTES Jenna Trevino MD [address] [place] [address] Referral ID Status Reason Start Date Expiration Date V isits Requested Visits Authorized [id number] Closed PCP Requested Referral 06/08/2022 06/08/2023 1 1 Reason Comments Multiple Concerns Report visit Reason Comments Consult Specialty Diagnoses / Procedures Referred By Contac t Referred To Contact Diagnoses Iron deficiency anemia, unspecified iron deficiency anemia type Elevated serum immunoglobulin free light chains Procedures CONSULT TO HEMATOLOGY/ONCOLOGY OFFICE/OUTPATIENT [facility] 60-74 MINUTES Ignacio Aguilar DO [address] [place] [id number] Referral ID Status Reason Start Date Expiration Date V isits Requested Visits Authorized [id number] Closed PCP Requested Referral 06/03/2022 06/03/2023 1 1 Reason Comments Bone Marrow Aspirate/Biopsy Reason Comments Nm Pet Request Reason Comments Opened In Error Reason Comments Patient Question Upcoming procedure Reason Comments Consult Reason Comments Patient Update 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 Comments 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 - Other PET scan result s Reason Comments Nutrition Assessment Specialty Diagnoses / Procedures Referred By Contac t Referred To Contact Nutrition Diagnoses Constipation, unspecified constipation type Procedures CONSULT TO NUTRITION THERAPY MEDICAL NUTRITION ASSMT&IVNTJ INDIV EACH 15 AL MEDICAL NUTRITION ASSMT&IVNTJ INDIV EACH 15 AL MEDICAL NUTRITION ASSMT&IVNTJ INDIV EACH 15 AL MEDICAL NUTRITION ASSMT&IVNTJ INDIV EACH 15 AL 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, 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, 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.[employer] [address] [place] [address] Referral ID Status Reason Start Date Expiration Date V isits Requested Visits Authorized [id number] Closed PCP Requested Referral 08/18/2022 08/18/2023 1 1 Reason Comments Results Reason Comments Established Patient Reason Comments Consult Reason Comments Radiology NM Specialty Diagnoses / Procedures Referred By Contac t Referred To Contact MR IMAGING 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, soft tissue, and skin Procedures MRI LUMBAR SPINE WO/W IVCON MRI SPINAL CANAL LUMBAR W/O & W/CONTR MATRJohanna Marquis MD [address] [place] [address] [place] [id number] Referral ID Status Reason Start Date Expiration Date V isits Requested Visits Authorized [id number] Closed Auto-Generate d Referral 08/19/2022 10/18/2022 1 1 Reason Comments Thyroid Problem Reason Comments Follow Up EGD/ colonoscopy INFORMATION SOURCE (unrecogn ized section and content) DATE CREATED AUTHOR 09/07/2022 [facility] DATE CREATED AUTHOR AUTHOR'S ORGANIZ ATION 12/03/2024 [facility] DATE CREATED AUTHOR AUTHOR'S ORGANIZ ATION 12/31/2024 [facility] DATE CREATED AUTHOR AUTHOR'S ORGANIZ ATION 01/05/2025 [facility] FOR RECORDS PERTAINING TO PATIENTS WHO ARE OR HAVE BEEN ENROLLED IN A CHEMICAL DEPENDENCY/SUBSTANCEABUSE PROGRAM, SOME INFORMATION MAY BE OMITTED. This clinical summary was aggregated from multiple sources. Caution should be exercised in using it in the provision of clinical care. This summary normalizes information from multiple sources, and as a consequence, information in this document may materially change the coding, format and clinical context of patient data. In addition, data may be omitted in some cases. CLINICAL DECISIONS SHOULD BE BASED ON THE PRIMARY CLINICAL RECORDS. [employer] provides no warranty or guarantee of the accuracy or completeness of information in this document.
[2025-02-15 10:23] LABS: Color, Urine Yellow (Yellow); Glucose, Dipstick Normal (Normal); Ketone-Dipstick Negative (Negative); Leukocyte Esterase-Dipstick Negative /ul (Negative); Nitrite-Dipstick Negative (Negative); Occult Blood-Urine Negative /ul (Negative); Protein-Dipstick 15 mg/dl (Negative); Specific Gravity, Urine 1.015 (1.002-1.030); Urine Bilirubin Dipstick Negative (Negative)
[2025-02-15 10:41] LABS: Hematocrit 27.2 % (37-47); Hemoglobin 8.9 g/dL (12.0-15.0); Immature Granulocytes Count 0.010 X10^3/uL (0.0-0.0); Mean Corp Hgb Conc 32.7 g/dL (32-36); Mean Corpuscular Volume 82.7 fL (81-99); Mean Platelet Vol. 10.3 fl (6.2-12.0); NRBC Flagged by Analyzer 0 % (0-5); Platelet Count 358 K/mm3 (150-450); RBC Distribution Width CV 19.9 % (11.6-14.6); RBC Distribution Width SD 59.9 fl (35.1-43.9); Red Blood Count 3.29 M/mm3 (4.2-5.4); White Blood Count 3.1 K/mm3 (4.4-11.0)
[2025-02-15 10:50] LABS: Fibrinogen 415 mg/dl (203-444)
[2025-02-15 10:52] LABS: D-Dimer Quantitative (DVT/PE) 0.39 FEU/ug/m (0.27-0.49)
[2025-02-15 11:08] LABS: AST(SGOT) 20 U/L (<=31); Alanine Aminotransfer ALT/SGPT 30 U/L (<=34); Albumin, Serum 3.8 g/dL (3.4-4.8); Alkaline Phosphatase 52 U/L (35-104); Anion Gap 9 (5-15); BUN 29 mg/dL (4-19); BUN/Creat Ratio 55.6 RATIO (10-20); Calcium,Total 9.7 mg/dL (7.6-11.0); Carbon Dioxide 28.1 mmol/L (21.0-32.0); Chloride 103 mmol/L (98-108); Cholesterol 227 mg/dL (<=200); Ferritin 8 ng/mL (22-378); Free T3 3.4 pg/mL (2.18-3.98); Globulin 2.2 g/dL (2.2-4.2); Glucose 89 mg/dL (70-99); Low Density Lipoprotein Calc. 137 mg/dL; Potassium 3.9 mmol/L (3.3-5.1); T3 Total - Triiodothyronine 1.29 ng/mL (0.80-2.00); T4 Total, Thyroxin 5.4 ug/dL (4.8-13.9); Triglycerides 28 mg/dL; Very Low Density Lipoprotein 6 mg/dL (5-40); Vitamin D,25 Hydroxy 49.7 ng/mL (30-100); cholesterol:hdl ratio screen 2.66
[2025-02-15 11:59] LABS: Iron 18 ug/dL (50-170); Iron Binding Capacity,Unsat 442 ug/dL (228-428); LDH 197 U/L (84-246); Uric Acid 4.0 mg/dL (2.6-6.0)
[2025-02-15 14:41] LABS: Iron Binding Capacity,Total 460 ug/dL (250-450)
[2025-02-16 08:09] LABS: CRP, High Sensitivity 0.51 mg/L (0.00-3.00); HOMOCYSTEINE 8.1 umol/L (0.0-14.5)
== END | disposition home or self-care (01) ==
LOC: MTLAB 07:05
PROVIDERS: PCP Family Medicine; Referring Provider Naturopath; Visit Provider Naturopath
DX: E03.9 Hypothyroidism, unspecified (principal); C90.00 Multiple myeloma not having achieved remission; Z77.120 Contact with and (suspected) exposure to mold (toxic); Z88.9 Allergy status to unspecified drugs, medicaments and biological substances; R53.83 Other fatigue; F41.9 Anxiety disorder, unspecified; E56.9 Vitamin deficiency, unspecified; E61.9 Deficiency of nutrient element, unspecified; D64.9 Anemia, unspecified; E46 Unspecified protein-calorie malnutrition; I89.0 Lymphedema, not elsewhere classified; R77.8 Other specified abnormalities of plasma proteins; R60.1 Generalized edema; R09.81 Nasal congestion; F45.9 Somatoform disorder, unspecified; D47.2 Monoclonal gammopathy; R52 Pain, unspecified; K59.00 Constipation, unspecified
CPT/HCPCS: 36415; 80053; 80061; 81002; 82306; 82390; 82525; 82728; 82977; 83036; 83090; 83540; 83550; 83615; 83625; 84305; 84432; 84436; 84439; 84443; 84445; 84479; 84480; 84481; 84482; 84550; 85025; 85379; 85384; 85652; 86141; 86376; 86800